=== PATIENT | male | born 1990 | race Caucasian/White ===

== ENCOUNTER → 2017-05-31 | Outpatient (CLI) | payer OTHER ==
[~2017-05-31] MED LIST: AMPH20TA2 PO; INSDGI SC; KPH250 PO; NVLGI/PEN SC
[2017-05-31 16:46] LABS: ALT/SGPT 22 U/L (12-78); AST/SGOT 20 U/L (15-37); BLOOD UREA NITROGEN 13 mg/dl (7-18); BUN/CREATININE RATIO 14.2 (10-20); CALCIUM 9.1 mg/dl (8.5-10.1); CARBON DIOXIDE 29 mmol/L (21-32); CHLORIDE 103 mmol/L (98-107); CHOLESTEROL 185 mg/dl (0-200); CREATININE 0.95 mg/dl (0.60-1.40); GLUCOSE 187 mg/dl (70-99); SODIUM 138 mmol/L (136-145)
[2017-05-31 16:49] LABS: ALB/GLOB RATIO 1.1 (0.9-2); ALKALINE PHOSPHATASE 135 U/L (45-117); CHOLESTEROL/HDL RATIO 3.7; HDL CHOLESTEROL 50 mg/dl; LDL CHOLESTEROL CALCULATED 103 mg/dl; TRIGLYCERIDES 158 mg/dl (0-150); VERY LOW DENSITY LIPOPROT CALC 32 mg/dl
== END | disposition home or self-care (01) ==
LOC: C.LABBFT 14:34
PROVIDERS: ATTEND Nurse Practitioner
DX: E10.9 Type 1 diabetes mellitus without complications (principal)

== ENCOUNTER 2017-07-28 12:23 | Emergency (ER) | payer OTHER ==
[~2017-07-28] VITALS: Ht 182.9 cm; Wt 64.1 kg
[2017-07-28 12:27] VITALS: TEMP 36.8; Ht 182.9 cm; Wt 64.1 kg
[2017-07-28] MEDS ORDERED: ACETAMINOPHEN 500 MG TAB PO STA (13:02)
[2017-07-28] MEDS ORDERED: KETOROLAC TROMETHAMINE 30 MG/ML VIAL IV STA (13:02)
[2017-07-28] MEDS ORDERED: ONDANSETRON INJ 2 MG/ML 2 ML VIAL IV STA (13:02)
--- NOTE | 2017-07-28 13:12 | EMERGENCY ROOM VISIT NOTE ---
History Report prepared by Luh: Larry Henao Under the Supervision of: Dr. Sajan Farmer M.D. First contact with patient: 12:33 Chief Complaint: TESTICULAR PAIN Stated Complaint: TESTICULAR PAIN History of Present Illness The patient is a 27 year old white male with a past medical history of DM who presents to the ED with a cc of intermittent testicular pain beginning a few days ago. Patient had his left testicle removed a month ago because it had a tumor on it. He notes he has not tried contacting his surgeon or diffuser operator. Patient reports there is still a tumor in his abdomen that is being worked up. Positive current smoker. Negative fever, chills, drainage at incision site, trouble urinating, trouble defecating, changes in medication, nausea, vomiting. Source of History: patient Onset: a few days ago Position: other (testicles) Timing: intermittent Associated Symptoms: No fevers, No chills, No nausea, No vomiting Note: Denies: drainage at incision site, trouble urinating, trouble defecating, changes in medication Review of Systems See HPI for pertinent positives and negatives. A total of ten systems were reviewed and were otherwise negative. Past Medical & Surgical Medical Problems: (1) Diabetes (2) Intractable nausea and vomiting (3) Toe fracture Family History Diabetes mellitus Heart disease Hypertension Kidney disease Kidney stones Social History Smoking Status: Current Every Day Smoker Drug Use: none Marital Status: single Occupation Status: unemployed Current/Historical Medications Scheduled Amphetamine-Dextroamphetamine 20MG (Adderall 20MG), 20 MG PO DAILY Insulin Glargine (Basaglar Kwikpen), 21 UNITS SQ HS Insulin Lispro (Human) (Humalog), SQ UD Risperidone (Risperdal), 0.25 MG PO UD Scheduled PRN Acetaminophen (Tylenol), 500 MG PO UD PRN for Pain Hydroxyzine HCl (Hydroxyzine HCl), 1 TAB PO UD PRN for Anxiety Ibuprofen (Ibu-200), 4 TABS PO QID PRN for Pain Oxycodone Immediate Rel Tab (Roxicodone Ir), 5 MG PO Q6H PRN for Pain Allergies Coded Allergies: No Known Allergies (Verified , 08/26/16) Physical Exam Vital Signs Date Time Temp Pulse Resp B/P (MAP) Pulse Ox O2 Delivery O2 Flow Rate FiO2 07/28/17 14:52 77 16 115/76 98 07/28/17 14:17 72 16 115/76 99 Room Air 07/28/17 12:27 36.8 65 16 127/80 99 Room Air Physical Exam GENERAL: Awake, alert, well-appearing, NAD HENT: Normocephalic, atraumatic. Missing right maxillary central incisor EYES: Normal conjunctiva. Sclera non-icteric. NECK: Supple. No nuchal rigidity. FROM. RESPIRATORY: CTAB, no rhonchi, wheezing, crackles CARDIAC: RRR, no MRG ABDOMEN: Soft, NTND, BS+. Well healing incisional scar in the LLQ with no TTP, fluctuantes, or erythema. No crepitus or swelling of the peritoneal. : No scrotal swelling, absent left testicle, mild tenderness of the left scrotum, circumcised, no penile pain. MSK: No chest wall TTP, no LE edema NEURO: GCS 15, CN 2-12 intact, moves all 4s on command SKIN: No rash or jaundice noted. Medical Decision & Procedures ER Provider Diagnostic Interpretation: Radiology results as stated below per my review and radiologist interpretation: TESTICULAR ULTRASOUND HISTORY: prior L orchiectomy, testicular pain, appears well healed, COMPARISON: None. FINDINGS: Right testis: 4.5 x 3.0 x 2.5 cm. There are no intratesticular masses. Normal color flow. No hydrocele. The epididymis is unremarkable. Left testis: Surgically absent. IMPRESSION: 1. Normal right testis. 2. Prior left orchiectomy. Electronically signed by: Zackary Delatorre M.D. 07/28/2017 2:11 PM Dictated Date/Time: 07/28/2017 2:09 PM Laboratory Results 07/28/17 13:14 Red Blood Count 5.08, Mean Corpuscular Volume 87.6, Mean Corpuscular Hemoglobin 30.1, Mean Corpuscular Hemoglobin Concent 34.4, Mean Platelet Volume 9.5, Neutrophils (%) (Auto) 65.4, Lymphocytes (%) (Auto) 22.5, Monocytes (%) (Auto) 6.4, Eosinophils (%) (Auto) 5.0, Basophils (%) (Auto) 0.5, Neutrophils # (Auto) 5.65, Lymphocytes # (Auto) 1.94, Monocytes # (Auto) 0.55, Eosinophils # (Auto) 0.43, Basophils # (Auto) 0.04 07/28/17 13:14 Test 07/28/17 13:14 07/28/17 13:18 White Blood Count 8.63 K/uL (4.8-10.8) Red Blood Count 5.08 M/uL (4.7-6.1) Hemoglobin 15.3 g/dL (14.0-18.0) Hematocrit 44.5 % (42-52) Mean Corpuscular Volume 87.6 fL (80-100) Mean Corpuscular Hemoglobin 30.1 pg (25-34) Mean Corpuscular Hemoglobin Concent 34.4 g/dl (32-36) Platelet Count 346 K/uL (130-400) Mean Platelet Volume 9.5 fL (7.4-10.4) Neutrophils (%) (Auto) 65.4 % Lymphocytes (%) (Auto) 22.5 % Monocytes (%) (Auto) 6.4 % Eosinophils (%) (Auto) 5.0 % Basophils (%) (Auto) 0.5 % Neutrophils # (Auto) 5.65 K/uL (1.4-6.5) Lymphocytes # (Auto) 1.94 K/uL (1.2-3.4) Monocytes # (Auto) 0.55 K/uL (0.11-0.59) Eosinophils # (Auto) 0.43 K/uL (0-0.5) Basophils # (Auto) 0.04 K/uL (0-0.2) RDW Standard Deviation 40.0 fL (36.4-46.3) RDW Coefficient of Variation 12.4 % (11.5-14.5) Immature Granulocyte % (Auto) 0.2 % Immature Granulocyte # (Auto) 0.02 K/uL (0.00-0.02) Anion Gap 8.0 mmol/L (3-11) Est Creatinine Clear Calc Drug Dose 108.9 ml/min Estimated GFR () 130.1 Estimated GFR (Non- 112.2 BUN/Creatinine Ratio 12.8 (10-20) Calcium Level 8.9 mg/dl (8.5-10.1) Total Bilirubin 0.3 mg/dl (0.2-1) Direct Bilirubin < 0.1 mg/dl (0-0.2) Aspartate Amino Transf (AST/SGOT) 14 U/L (15-37) Alanine Aminotransferase (ALT/SGPT) 19 U/L (12-78) Alkaline Phosphatase 163 U/L (45-117) Total Protein 7.9 gm/dl (6.4-8.2) Albumin 3.5 gm/dl (3.4-5.0) Lipase 75 U/L (73-393) Beta-Hydroxybutyric Acid 1.40 mg/dL (0.2-2.81) Urine Color YELLOW Urine Appearance CLEAR (CLEAR) Urine pH 7.0 (4.5-7.5) Urine Specific Humble 1.033 (1.000-1.030) Urine Protein NEG (NEG) Urine Glucose (UA) 3+ (NEG) Urine Ketones NEG (NEG) Urine Occult Blood NEG (NEG) Urine Nitrite NEG (NEG) Urine Bilirubin NEG (NEG) Urine Urobilinogen NEG (NEG) Urine Leukocyte Esterase NEG (NEG) Laboratory results reviewed by me Medications Administered Medications (Trade) Dose Ordered Sig/Maddie Route Start Time Stop Time Status Last Admin Dose Admin Ondansetron HCl (Zofran Inj) 4 mg NOW STAT IV 07/28/17 13:02 07/28/17 13:04 DC 07/28/17 13:20 4 MG Ketorolac Tromethamine (Toradol Inj) 30 mg NOW STAT IV 07/28/17 13:02 07/28/17 13:04 DC 07/28/17 13:20 30 MG ED Course 1253: The patient was evaluated in room B04B. A complete history and physical exam was performed. 1447: I reevaluated the patient. Discussed results and discharge instructions: he verbalized understanding and agreement. Case management spoke with the patient about following up with oncology. The patient is ready for discharge. Medical Decision The patient is a 27 year old white male with a past medical history of DM who presents to the ED with a cc of intermittent testicular pain beginning a few days ago. Etiologies such as torsion, mass, infection, hernia, hydrocele, epididymitis, trauma, intra-abdominal process, phantom pain, post operative pain , as well as others were entertained. Patient was seen and evaluated the bedside. Patient is a 27-year-old with a known history of diabetes. Patient had an orchiectomy last month with [facility] [address] urology. Patient purportedly does have an abdominal tumor. He is to see oncology after obtaining a PET scan. Patient states that his procedure was completed approximately 1 month prior and that he's had a little bit of pain in his scrotum. Patient states she's been taking his medications as prescribed. Patient does smoke and patient was counseled on smoking cessation. He was also told he would be of benefit to continue checking sugars and follow-up. Patient did have blood work that was completed along with urinalysis and testicular ultrasound. On exam of the patient patient did have some mild swelling within the scrotum and did show a surgically absent left testes. Patient had no crepitus or pain or erythema to the perineum. Do not believe this to be Collette's. Patient's blood work was fairly unremarkable with the exception of hyperglycemia in the 400s. Patient did have some pseudohyponatremia. Patient' s anion gap was normal and did not show ketones in the urine. I do not believe he is in diabetic ketoacidosis. Patient was feeling improved and able to tolerate by mouth. Patient's pain is also improved. I did discuss that he should follow-up with his urologist as needed. Counseled on smoking cessation. I do not believe that he has an acute surgical or medical need to stay in the hospital and believe he suitable for outpatient follow-up and treatment. Patient had discussed wanting to be seen by oncology here. I did have the shoe caser discuss with him possible follow-up options and they will call tomorrow and helping to arrange follow-up. Patient was agreeable to the plan of care. Patient was given strict follow-up, discharge, and return precautions. All questions were answered. Patient was deemed suitable for outpatient follow-up at this time. Patient agreed with the plan of care and was safely discharged home. Impression Primary Impression: Testicular/scrotal pain Additional Impression: Encounter for smoking cessation counseling Scribe Attestation The scribe's documentation has been prepared under my direction and personally reviewed by me in its entirety. I confirm that the note above accurately reflects all work, treatment, procedures, and medical decision making performed by me. Departure Information Dispostion Home / Self-Care Prescriptions Oxycodone Immediate Rel Tab (ROXICODONE IR) 5 Mg Tab 5 MG PO Q6H Y for Pain, #12 TAB Prov: Sajan Farmer M.D. 07/28/17 Referrals Kade Kelsey M.D. (PCP) Jayant Franks MD Forms HOME CARE DOCUMENTATION FORM, IMPORTANT VISIT INFORMATION, WORK / SCHOOL INSTRUCTIONS Patient Instructions ED Testicular Pain GEO, [facility] Additional Instructions Please return to the emergency department if you have worsening or recurrent symptoms not amenable to at-home treatment. Please call for a follow-up appointment with her primary care physician. Please take your medications as prescribed. If you have other concerns and/or complaints please feel free to also call your primary care physician's office or return the ED for further evaluation, management, and treatment. You may take 600 mg Ibuprofen every 6 hours as needed for pain with food for no more than 2 consecutive days. You may take tylenol 1000 mg every 6 hours as needed for pain. You may take motrin and tylenol separately or at the same time. Take your medications as prescribed. You have been examined and treated today on an emergency basis only. This is not a substitute for, or an effort to provide, complete comprehensive medical care. It is impossible to recognize and treat all injuries or illnesses in a single emergency department visit. It is therefore important that you follow up closely with [facility], your PCP, and/or your specialist(s). Call as soon as possible for an appointment. Thank you for your time and consideration. I look forward to speaking with you again soon. Please don't hesitate to call us if you have any questions. Problem Qualifiers
[2017-07-28 13:29] LABS: BASO % 0.5 %; BASO ABS # 0.04 K/uL (0-0.2); COMPLETE YES; HEMATOCRIT 44.5 % (42-52); IG% 0.2 %; LYMPH % 22.5 %; LYMPH ABS # 1.94 K/uL (1.2-3.4); MEAN CELL VOLUME 87.6 fL (80-100); MEAN CORPUSCULAR HEMOGLOBIN 30.1 pg (25-34); MEAN CORPUSCULAR HGB CONC 34.4 g/dl (32-36); MEAN PLATELET VOLUME 9.5 fL (7.4-10.4); MONO % 6.4 %; NEUT % 65.4 %; PLATELET COUNT 346 K/uL (130-400); RED BLOOD COUNT 5.08 M/uL (4.7-6.1); WHITE BLOOD COUNT 8.63 K/uL (4.8-10.8)
[2017-07-28 13:38] LABS: URINE APPEARANCE CLEAR (CLEAR); URINE BILIRUBIN NEG (NEG); URINE COLOR YELLOW; URINE NITRITE NEG (NEG); URINE SPECIFIC GRAVITY 1.033 (1.000-1.030); UROBILINOGEN NEG (NEG); ZZUR CULT IF INDIC CLEAN CATCH NO
[2017-07-28 13:40] LABS: MANUAL MICROSCOPIC REQUIRED? NO; REVIEW REQ? NO
[2017-07-28 13:58] LABS: ALKALINE PHOSPHATASE 163 U/L (45-117); ALT/SGPT 19 U/L (12-78); AST/SGOT 14 U/L (15-37); BLOOD UREA NITROGEN 12 mg/dl (7-18); BUN/CREATININE RATIO 12.8 (10-20); CALCIUM 8.9 mg/dl (8.5-10.1); CARBON DIOXIDE 26 mmol/L (21-32); CHLORIDE 96 mmol/L (98-107); CREATININE 0.94 mg/dl (0.60-1.40); GLUCOSE 442 mg/dl (70-99); POTASSIUM 4.5 mmol/L (3.5-5.1); SODIUM 130 mmol/L (136-145)
--- NOTE | 2017-07-28 14:12 | DIAGNOSTIC IMAGING REPORT ---
TESTICULAR ULTRASOUND HISTORY: prior L orchiectomy, testicular pain, appears well healed, COMPARISON: None. FINDINGS: Right testis: 4.5 x 3.0 x 2.5 cm. There are no intratesticular masses. Normal color flow. No hydrocele. The epididymis is unremarkable. Left testis: Surgically absent. IMPRESSION: 1. Normal right testis. 2. Prior left orchiectomy. Electronically signed by: Zackary Delatorre M.D. 07/28/2017 2:11 PM Dictated Date/Time: 07/28/2017 2:09 PM
[2017-07-28] MEDS ORDERED: ATR25 PO (14:29)
[2017-07-28] MEDS ORDERED: ACET-1256 PO (14:29)
[2017-07-28] MEDS ORDERED: RISP0.257 PO (14:29)
[2017-07-28] MEDS ORDERED: IBUP200T80 PO (14:29)
[2017-07-28] MEDS ORDERED: INSU100I SQ (14:29)
[2017-07-28] MEDS ORDERED: INSU100I23 SQ (14:29)
[2017-07-28] MEDS ORDERED: OXYC1TAB3 PO (14:40)
[2017-07-28 14:52] VITALS: BP 115/76; PULSE 77; O2SAT 98
== END 2017-07-28 15:13 | disposition home or self-care (01) ==
LOC: C.EDB 12:24
DX: N50.811 Right testicular pain (principal); Z71.6 Tobacco abuse counseling; E11.9 Type 2 diabetes mellitus without complications; Z90.79 Acquired absence of other genital organ(s); F17.200 Nicotine dependence, unspecified, uncomplicated; Z79.4 Long term (current) use of insulin; Z83.3 Family history of diabetes mellitus; Z82.49 Family history of ischemic heart disease and other diseases of the circulatory system; Z84.1 Family history of disorders of kidney and ureter

== ENCOUNTER → 2017-08-15 | Outpatient (CLI) | payer OTHER ==
[~2017-08-15] MED LIST changes: +ACET-1256 PO; +ATR25 PO; +IBUP200T80 PO; -INSDGI SC; +INSU100I SQ; +INSU100I23 SQ; -KPH250 PO; -NVLGI/PEN SC; +OPTIRAY 320 IV PRN; +OXYC1TAB3 PO; +RISP0.257 PO
--- NOTE | 2017-08-15 13:53 | DIAGNOSTIC IMAGING REPORT ---
(CHEST) THORAX WITH CT DOSE: 524.88 mGycm HISTORY: Testicular carcinoma TESTICULAR CA TECHNIQUE: Multiaxial CT images of the chest were performed following the intravenous administration of contrast. A dose lowering technique was utilized adhering to the principles of ALARA. COMPARISON: None FINDINGS: Filling defects. Cava felt to be flow artifact. The mediastinal and hilar regions are considered negative for significant adenopathy. Lungs are considered clear. There is no significant nodular pathology. Limited evaluation the upper abdomen demonstrates a large retroperitoneal mass measuring 10 x 9 cm. This appears to encompass components of the abdominal aorta as well as superior abdominal arterial vasculature. There is a mild secondary left hydronephrosis. Mild ossification homogeneity of the liver. There is a potential nodular process measuring 2.8 x 3.0 cm posterior aspect of the uterine fundus versus retained gastric content. IMPRESSION: 1. No significant abnormality of the chest. 2. Lungs are considered clear. 3. Large upper abdominal/retroperitoneal mass with potential additional mass posterior aspect gastric fundus. 4. Attention is directed to the report for the CT of the abdomen and pelvis. The above report was generated using voice recognition software. It may contain grammatical, syntax or spelling errors. Electronically signed by: Onofre Alarcon M.D. 08/15/2017 1:51 PM Dictated Date/Time: 08/15/2017 1:41 PM
--- NOTE | 2017-08-15 13:57 | DIAGNOSTIC IMAGING REPORT ---
CT SCAN OF THE ABDOMEN AND PELVIS WITH IV CONTRAST CLINICAL HISTORY: Testicular cancer. COMPARISON STUDY: No priors. TECHNIQUE: Following the IV administration of 91 cc of Optiray 320, CT scan of the abdomen and pelvis is performed from the lung bases to the proximal femora. Images are reviewed in the axial, sagittal, and coronal planes. IV contrast was administered without complication. A dose lowering technique was utilized adhering to the principles of ALARA. FINDINGS: Lung bases: The heart is normal in size and without pericardial effusion. The lung bases are clear. Liver: The contrast-enhanced liver is normal in size, contour, and attenuation. There is no intrahepatic biliary ductal dilatation. The hepatic veins and portal veins are patent. Gallbladder: Unremarkable. Spleen: Normal in size and attenuation. Pancreas: Unremarkable. Adrenal glands: Unremarkable. Kidneys: The contrast enhanced kidneys are normal in size. There is mild to moderate left-sided hydronephrosis, likely related to ureteral stent obstruction secondary to a left retroperitoneal mass. No hydronephrosis is seen on the right. The kidneys enhance symmetrically. Abdominal vasculature: The abdominal aorta is normal in course and caliber. Bowel: The small bowel and colon are normal in course and caliber. The appendix is not identified. Peritoneum: There is no intraperitoneal free air or abdominal ascites. Lymphadenopathy: There is bulky confluent left retroperitoneal lymphadenopathy, which extends from the level of the left renal pelvis to the left iliac chain. This measures approximately 17 x 10 x 11 cm in aggregate dimension. Low attenuation within this adenopathy suggests a component of fat. This mass lesion encases left ureter, and also encases the abdominal aorta by approximately 270 degrees. This invades into the left psoas musculature. Pelvic viscera: The bladder, prostate, and seminal vesicles are normal as visualized. There is evidence of left-sided orchiectomy. Skeletal structures: No lytic or blastic lesions are seen. Posttraumatic deformity and postoperative change is identified in the left proximal femur. 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 Soft tissues: The patient appears cachectic. IMPRESSION: 1. There is a large bulky left retroperitoneal devin aggregate as detailed above measuring up to 17 cm. This is consistent with metastatic disease. 2. The retroperitoneal lymphadenopathy encases the left ureter and causes mild to moderate left-sided hydronephrosis. 3. The retroperitoneal lesion invades the left psoas musculature and encases the abdominal aorta by as much as 270 degrees. 4. No additional metastatic lesions are identified in the other pelvis. 5. Posttraumatic and postoperative change is identified in the left hip. There is avascular necrosis of the left femoral head. Electronically signed by: Thuan Wall M.D. 08/15/2017 1:56 PM Dictated Date/Time: 08/15/2017 1:46 PM
== END | disposition home or self-care (01) ==
LOC: C.CTS 12:45
PROVIDERS: ATTEND Internal Medicine Hematology & Oncology
DX: C62.90 Malignant neoplasm of unspecified testis, unspecified whether descended or undescended (principal)

== ENCOUNTER 2017-08-28 08:11 | Day surgery (SDC) | payer OTHER ==
[2017-08-27 10:49] VITALS: BMI 19.0
[~2017-08-28] VITALS: Ht 182.9 cm; Wt 65.9 kg
[~2017-08-28 08:11] MED LIST changes: -ACET-1256 PO; -AMPH20TA2 PO; -ATR25 PO; +ATROPINE SULFATE 0.1 MG/ML 5ML SYR IV PRN; +EpHEDrine SULFATE INJ 50 MG/ML AMP IV PRN; +FENTANYL CITRATE INJ 50 MCG/1 ML 2 ML VIAL IV PRN; +HYDROmorphone INJ 1 MG/ML SYR IV PRN; -IBUP200T80 PO; -INSU100I SQ; -INSU100I23 SQ; +LACTATED RINGER'S 1000ML 1,000 ML IV SCH; +ONDANSETRON INJ 2 MG/ML 2 ML VIAL IV PRN; -OPTIRAY 320 IV PRN; -OXYC1TAB3 PO; +PROMETHAZINE HCL INJ 12.5 MG in SODIUM CHLORIDE 0.9% 50ML 50 ML IV PRN; -RISP0.257 PO
[2017-08-28 08:39] VITALS: BP 124/77; PULSE 71; TEMP 36.5; O2SAT 98; Ht 182.9 cm; Wt 65.9 kg
[2017-08-28] MEDS ORDERED: NovoLIN-R INSULIN PER UNIT CHARGE ONE (08:41)
[2017-08-28] MEDS ORDERED: NURSING VERBAL MED ORDER ONE (08:45)
[2017-08-28] MEDS ORDERED: MIDAZOLAM HCL 1 MG/ML 2ML VIAL ONE ×2 (10:46→10:47)
[2017-08-28] MEDS ORDERED: FENTANYL CITRATE INJ 50 MCG/1 ML 2 ML VIAL ONE ×2 (10:47→11:34)
[2017-08-28] MEDS ORDERED: PROPOFOL IV EMULSION 10 MG/ML 20 ML VIAL IV ONE (10:47)
[2017-08-28] MEDS ORDERED: LIDOCAINE HCL 2% 2 ML VIAL (20MG/ML) ONE (10:47)
[2017-08-28] MEDS ORDERED: ONDANSETRON INJ 2 MG/ML 2 ML VIAL ONE (10:47)
[2017-08-28] MEDS ORDERED: LIDOCAINE/EPINEPHRINE 1% 20 ML VIAL ONE (11:09)
[2017-08-28] MEDS ORDERED: HEPARIN SOD (PORCINE) 5000 UNIT/ML 1 ML VIAL ONE (11:10)
[2017-08-28] MEDS ORDERED: BUPIVACAINE 0.5 % 5 MG/1 ML MPF 30ML VIAL ONE (11:10)
--- NOTE | 2017-08-28 11:12 | History & Physical Bridge Note ---
H&P Re-Evaluation Bridge Note: I have examined the patient, reviewed the History & Physical and in the interval since the performance of the History & Physical I have noted the following changes of clinical significance: No changes noted
--- NOTE | 2017-08-28 12:08 | [facility] Post Operative Brief Note ---
Immediate Operative Summary Operative Date Aug 28, 2017. Pre-Operative Diagnosis Testicular Cancer Post-Operative Diagnosis Testicular Cancer Procedure(s) Performed Insertion of Mediport with Fluoroscopy Surgeon Dr Narayanan Instructor Business Education Surgeon(s) Quita Cruz PA-C Estimated Blood Loss 4ml Findings Left internal jugular vein accessed using real-time ultrasound. Catheter tunneled to the chest incision, catheter placed in the left internal jugular vein and terminated just proximal to the caval atrial junction, final placement confirmed by fluoroscopy. Draws and flushes easily. Specimens None per surgeon Drains none Anesthesia MAC/local Complication(s) None Disposition Recovery Room / PACU
--- NOTE | 2017-08-28 12:17 | [facility] Operative Report ---
Operative Report Operative Date Aug 28, 2017. Pre-Operative Diagnosis Testicular Cancer Post-Operative Diagnosis testicular cancer Procedure(s) Performed Left internal jugular vein port insertion Surgeon Dr Narayanan Assembly Machine Feeder Surgeon(s) Quita Cruz PA-C Estimated Blood Loss 4ml Findings Left internal jugular vein accessed using real-time ultrasound. Catheter tunneled to the chest incision, catheter placed in the left internal jugular vein and terminated just proximal to the caval atrial junction, final placement confirmed by fluoroscopy. Draws and flushes easily. Specimens None per surgeon Drains none Anesthesia MAC/local Complication(s) None Disposition Recovery Room / PACU Indications 27-year-old right-hand dominant male with testicular cancer requiring mcc IV access for chemotherapy. Plan for port insertion. The risks of the procedure were discussed, all questions were answered, and the patient agreed to proceed with surgery as planned. Description of Procedure The patient was properly identified, consented, and taken to the operating room where he was placed in the supine position with both arms tucked and a shoulder roll placed vertically. Monitored anesthesia care was induced. SCDs and a safety belt were placed. Preoperative antibiotics were administered. The patient's chest and neck was prepped and draped in the standard sterile fashion. Surgical timeout was performed and all parties were in agreement that this was the correct patient and procedure to be performed and we continued as planned. The patient was placed in Trendelenburg position. Local anesthetic was injected along the skin incision. Using real-time ultrasound guidance the left internal jugular vein was accessed using the access needle. The wire was placed and the needle was removed. Fluoroscopy confirmed placement into the internal jugular vein extending into the superior vena cava. A transverse skin incision was made in the chest and a pocket was created for the port. The subcutaneous tunneling device was then used to pass the catheter through the chest incision and into the neck incision. The dilator and peel-away sheath were inserted over the wire. The catheter was then inserted through the peel- away sheath and fluoroscopy confirmed placement into the superior vena cava. The catheter was cut to 23 cm and attached to the port. The port was secured into place with 3-0 Prolene sutures. A final x-ray revealed good placement of the port. The wound was irrigated and hemostasis was confirmed. The skin was closed with interrupted 3-0 Vicryl deep dermal sutures, followed by 4-0 Monocryl running subcuticular suture. Dermabond was placed over the wounds. The port was accessed and ashu blood easily and flushed easily. It was flushed with heparinized saline. The physician's assistant coach was critical for prepping and draping, access, retraction and exposure, and closure. The patient taken to the PACU where she recovered without apparent incident. All sponge, instrument and needle counts were correct at the conclusion of the procedure. The patient tolerated the procedure well. A postoperative chest x- ray was pending in the PACU. I attest to the content of the Intraoperative Record and any orders documented therein. Any exceptions are noted below.
--- NOTE | 2017-08-28 12:22 | Discharge Instructions ---
Discharge Instructions Date of Service Aug 28, 2017. Visit Reason for Visit: Testicular Cancer, Type 1 Diabetes Discharge Discharge Diagnosis / Problem: A-port placement Discharge Goals Goal(s): Improve disease control Activity Recommendations Activity Limitations: as noted below Shower/Bathe: no limitations (ok to shower) Anesthesia . Post Anesthesia Instructions: If you have had General Anesthesia or IV Sedation: * Do not drive today. * Resume driving when surgeon permits. * Do not make important decisions or sign legal documents today. * Call surgeon for: 1. Temperature elevations greater than 101 degrees F. 2. Uncontrollable pain. 3. Excessive bleeding. 4. Persistent nausea and vomiting. 5. Medication intolerance (nausea, vomiting or rash). * For nausea and vomiting use only clear liquids such as: tea, soda, bouillon until nausea subsides, then gradually increase diet as tolerated. * If you have any concerns or questions, call your surgeon's office. If physician is unavailable and it is an emergency, call 911 or go to the nearest emergency room. . Instructions / Follow-Up Instructions / Follow-Up Dr. Narayanan in 1-2 weeks, call [phone] for any questions Diet Recommendations Recommended Home Diet: no limitations Procedures Procedures Performed: Insertion of Mediport with Fluoroscopy Pending Studies Studies pending at discharge: no Medical Emergencies . Who to Call and When: Medical Emergencies: If at any time you feel your situation is an emergency, please call 911 immediately. . Non-Emergent Contact Non-Emergency issues call your: Surgeon Call Non-Emergent contact if: you have a fever, temperature is above 101.5, your pain is not controlled, wound has increased redness . . "Provider Documentation" section prepared by Louis Cruz. .
[2017-08-28] MEDS ORDERED: ONDANSETRON INJ 2 MG/ML 2 ML VIAL IV PRN (12:30)
[2017-08-28] MEDS ORDERED: MoRPHine SULFATE 2 MG/ML CARP IV PRN (12:30)
[2017-08-28] MEDS ORDERED: HYDROCODONE/ACETAMIN 5/325MG TAB PO PRN (12:30)
[2017-08-28] MEDS ORDERED: LACTATED RINGER'S 1000ML 1,000 ML IV SCH (12:30)
--- NOTE | 2017-08-28 12:35 | Anesthesiology Progress Note ---
Anesthesia Post Op Note Date & Time Aug 28, 2017 at 12:35 Vital Signs Pain Intensity: 0 Vital Signs Past 12 Hours Date Time Temp Pulse Resp B/P (MAP) Pulse Ox O2 Delivery O2 Flow Rate FiO2 08/28/17 12:25 78 16 104/72 98 Room Air 08/28/17 12:16 36 75 16 112/68 100 Oxymask 7 08/28/17 08:39 36.5 71 18 124/77 (93) 98 Room Air Notes Mental Status: alert / awake / arousable, participated in evaluation Pt Amnestic to Procedure: Yes Nausea / Vomiting: adequately controlled Pain: adequately controlled Airway Patency, RR, SpO2: stable & adequate BP & HR: stable & adequate Hydration State: stable & adequate Anesthetic Complications: no major complications apparent
--- NOTE | 2017-08-28 12:38 | [facility] Operative Report ---
Operative Report Operative Date Aug 28, 2017. Pre-Operative Diagnosis Testicular Cancer Surgeon Dr Narayanan Findings Real-time ultrasound guidance was used to access the left internal jugular vein. Fluoroscopy was used to position the catheter at the cavoatrial junction. A total of 7.7 seconds of fluoroscopy time was performed. I attest to the content of the Intraoperative Record and any orders documented therein. Any exceptions are noted below.
--- NOTE | 2017-08-28 12:42 | DIAGNOSTIC IMAGING REPORT ---
CHEST ONE VIEW PORTABLE CLINICAL HISTORY: 27 years-old Male presenting with port placement. TECHNIQUE: Portable upright AP view of the chest was obtained. COMPARISON: 08/28/[address] from 08/15/2017. FINDINGS: Left internal jugular Mediport terminates in the lower SVC. Cardiomediastinal silhouette normal. Lungs and pleural spaces clear. Osseous structures normal. Upper abdomen normal. IMPRESSION: 1. Interval left internal jugular Mediport placement. No pneumothorax. Electronically signed by: Willie Castrejon M.D. 08/28/2017 12:40 PM Dictated Date/Time: 08/28/2017 12:39 PM
[2017-08-28 12:50] VITALS: BP 111/68; PULSE 83; TEMP 36.4; O2SAT 100
[2017-08-28 13:20] VITALS: BP 113/69; PULSE 77; TEMP 36.4; O2SAT 100
[2017-08-28 13:50] VITALS: BP 116/56; PULSE 88; TEMP 36.5; O2SAT 100
[2017-09-08] MEDS ORDERED: IBUP-1428 PO (10:48)
[2017-09-08] MEDS ORDERED: ONDA4TAB46 PO (10:49)
[2017-09-08] MEDS ORDERED: MULT-506 PO (10:49)
[2017-09-08] MEDS ORDERED: AMPH20TA2 PO (13:55)
[2017-09-08] MEDS ORDERED: ATR25 PO (14:29)
[2017-09-08] MEDS ORDERED: INSU100I23 SQ (14:29)
[2017-09-08] MEDS ORDERED: INSU100I SQ (14:29)
[2017-09-23] MEDS ORDERED: OXYC-164 PO (10:20)
[2017-09-23] MEDS ORDERED: MCRK20 PO (10:20)
[2017-09-23] MEDS ORDERED: OXYC-292 PO (10:20)
[2017-09-23] MEDS ORDERED: NICO21DI4 TD (10:26)
[2017-10-05] MEDS ORDERED: PROC10TA PO (09:09)
[2017-10-06] MEDS ORDERED: POTA-639 PO (01:23)
[2018-01-24] MEDS ORDERED: LORA-741 PO (01:17)
[2018-01-24] MEDS ORDERED: RXC30 PO (01:17)
[2018-01-24] MEDS ORDERED: MORP30TA PO (01:17)
[2018-01-24] MEDS ORDERED: AMOX500T PO (01:18)
[2018-01-24] MEDS ORDERED: KLN/5 PO (01:18)
[2018-01-24] MEDS ORDERED: INSU1INJ33 SC (01:18)
[2018-01-24] MEDS ORDERED: AMPH15CA7 PO (01:20)
[2018-02-12] MEDS ORDERED: GABA-112 PO (14:25)
[2018-04-28] MEDS ORDERED: AMPH10TA2 PO (13:18)
[2018-04-28] MEDS ORDERED: MORP30TA PO (13:19)
== END 2017-08-28 13:50 | disposition home or self-care (01) ==
LOC: C.ACU 08:11
PROVIDERS: ATTEND Surgery
DX: C62.90 Malignant neoplasm of unspecified testis, unspecified whether descended or undescended (principal); E11.9 Type 2 diabetes mellitus without complications; Z98.818 Other dental procedure status; F17.200 Nicotine dependence, unspecified, uncomplicated; Z79.4 Long term (current) use of insulin; Z79.899 Other long term (current) drug therapy; Z82.49 Family history of ischemic heart disease and other diseases of the circulatory system

== ENCOUNTER 2017-09-08 21:29 | Emergency (ER) | payer OTHER ==
[~2017-09-08] VITALS: Ht 182.9 cm; Wt 61.4 kg
[~2017-09-08 21:29] MED LIST changes: +AMPH20TA2 PO; +ATR25 PO; -ATROPINE SULFATE 0.1 MG/ML 5ML SYR IV PRN; -EpHEDrine SULFATE INJ 50 MG/ML AMP IV PRN; -FENTANYL CITRATE INJ 50 MCG/1 ML 2 ML VIAL IV PRN; -HYDROmorphone INJ 1 MG/ML SYR IV PRN; +IBUP-1428 PO; +INSU100I SQ; +INSU100I23 SQ; -LACTATED RINGER'S 1000ML 1,000 ML IV SCH; +MULT-506 PO; +ONDA4TAB46 PO; -ONDANSETRON INJ 2 MG/ML 2 ML VIAL IV PRN; -PROMETHAZINE HCL INJ 12.5 MG in SODIUM CHLORIDE 0.9% 50ML 50 ML IV PRN
[2017-09-08 21:33] VITALS: TEMP 36.6; Ht 182.9 cm; Wt 61.4 kg
[2017-09-08] MEDS ORDERED: ONDANSETRON INJ 2 MG/ML 2 ML VIAL IV STA (21:53)
[2017-09-08] MEDS ORDERED: SODIUM CHLORIDE 0.9% 1000ML 1,000 ML IV STA (21:53)
[2017-09-08] MEDS ORDERED: KETOROLAC TROMETHAMINE 30 MG/ML VIAL IV STA (21:58)
[2017-09-08] MEDS ORDERED: SULF800T23 PO (22:12)
[2017-09-08 22:26] LABS: BASO % 0.3 %; BASO ABS # 0.02 K/uL (0-0.2); EOS % 1.5 %; EOS ABS # 0.11 K/uL (0-0.5); HEMOGLOBIN 14.4 g/dL (14.0-18.0); IG# 0.01 K/uL (0.00-0.02); LYMPH % 20.8 %; LYMPH ABS # 1.48 K/uL (1.2-3.4); MEAN CELL VOLUME 83.3 fL (80-100); MEAN PLATELET VOLUME 9.4 fL (7.4-10.4); MONO % 8.6 %; MONO ABS # 0.61 K/uL (0.11-0.59); NEUT % 68.7 %; NEUT ABS # 4.87 K/uL (1.4-6.5); PLATELET COUNT 291 K/uL (130-400); RED CELL DISTRIBUTION WIDTH CV 12.4 % (11.5-14.5); RED CELL DISTRIBUTION WIDTH SD 37.7 fL (36.4-46.3)
[2017-09-08 22:44] LABS: ALBUMIN 3.6 gm/dl (3.4-5.0); ALT/SGPT 19 U/L (12-78); BLOOD UREA NITROGEN 14 mg/dl (7-18); CALCIUM 8.9 mg/dl (8.5-10.1); CARBON DIOXIDE 26 mmol/L (21-32); CREATININE 0.81 mg/dl (0.60-1.40); GLUCOSE 324 mg/dl (70-99); LIPASE 178 U/L (73-393); POTASSIUM 3.8 mmol/L (3.5-5.1); SODIUM 132 mmol/L (136-145)
[2017-09-08 22:47] LABS: AST/SGOT 18 U/L (15-37)
[2017-09-08 22:54] LABS: ALKALINE PHOSPHATASE 121 U/L (45-117)
--- NOTE | 2017-09-08 22:58 | DIAGNOSTIC IMAGING REPORT ---
PA CHEST RADIOGRAPH AND UPRIGHT AND SUPINE AP RADIOGRAPHS OF THE ABDOMEN CLINICAL HISTORY: Abdominal pain. COMPARISON STUDY: CT of the chest abdomen and pelvis August 15, 2017 and chest radiograph August 28, 2017. FINDINGS: A left internal jugular [id number] is in place. There is no pneumothorax or pleural effusion. There is no consolidation to suggest pneumonia. Cardiomediastinal silhouette is normal. Pulmonary vascularity is normal. There is no free air. Mild gaseous distention of the colon is noted. There is also mild gaseous distention of the stomach. A few mildly dilated loops of small bowel are noted. 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 Post surgical findings within the proximal left femur are noted. IMPRESSION: 1. No free air. 2. Mild gaseous distention of small and large bowel. This may reflect an ileus. A distal colonic obstruction could appear similar although is considered less likely. 3. No acute cardiopulmonary findings. Electronically signed by: Guicho Olivera M.D. 09/08/2017 10:56 PM Dictated Date/Time: 09/08/2017 10:52 PM
--- NOTE | 2017-09-08 23:32 | EMERGENCY ROOM VISIT NOTE ---
History Report prepared by Luh: Petey Rand Under the Supervision of: Dr. Chance Goldstein D.O. First contact with patient: 21:40 Chief Complaint: ABDOMINAL PAIN Stated Complaint: ABDOMINAL PAIN, CRAMPING FROM TUMOR History of Present Illness The patient is a 27 year old male with a history of testicular cancer who presents to the Emergency Room with complaints of worsening abdominal pain over the past few days. The patient states that he has had the pain for a while on and off, but today the pain was constant and unbearable. Per the patient's significant other, the patient had one of his testicles removed, but the patient now has a tumor in his abdomen from the testicular cancer. The patient states that he has abdominal pain from the tumor, and he feels constipated but is able to have bowel movements. He says that he thinks that the pain is somewhat due to the constipation. He describes the pain as a "burning" pain, and was told by his doctor to come here if the pain was not getting any better. He adds that he is having some pain into the lower back as well. The patient had a port put in, and will be undergoing chemotherapy once the "port is healed up". The patient says that he is not on any blood thinners. Source of History: patient, spouse/significant other Onset: Over past few days Position: abdomen Symptom Intensity: unbearable Quality: other (had testicular cancer, burning pain) Timing: worsening Associated Symptoms: + back pain Note: Associated symptoms: Feels constipated. Review of Systems See HPI for pertinent positives & negatives. A total of 10 systems reviewed and were otherwise negative. Past Medical & Surgical Medical Problems: (1) Diabetes (2) Intractable nausea and vomiting (3) Toe fracture Family History Diabetes mellitus Heart disease Hypertension Kidney disease Kidney stones Social History Smoking Status: Current Every Day Smoker Drug Use: none Marital Status: single Occupation Status: unemployed Current/Historical Medications Scheduled Amphetamine-Dextroamphetamine 20MG (Adderall 20MG), 20 MG PO BID Insulin Glargine (Basaglar Kwikpen), 21 UNITS SQ HS Insulin Lispro (Human) (Humalog), SQ UD Multivitamin (Multivitamin), 1 TAB PO QPM Sulfa/Trimethoprim (Bactrim Ds 800MG/160MG), 1 TAB PO BID Scheduled PRN Hydroxyzine HCl (Hydroxyzine HCl), 1 TAB PO UD PRN for Anxiety Ibuprofen (Motrin), 800 MG PO PRN PRN for Pain Ondansetron Hcl (Zofran), 4 MG PO PRN PRN for Nausea Allergies Coded Allergies: No Known Allergies (Verified , 08/27/17) Physical Exam Vital Signs Date Time Temp Pulse Resp B/P (MAP) Pulse Ox O2 Delivery O2 Flow Rate FiO2 09/08/17 21:33 36.6 142 18 123/80 100 Room Air Physical Exam CONSTITUTIONAL/VITAL SIGNS: Reviewed / noted above. GENERAL: Non-toxic in appearance. INTEGUMENTARY: Warm, dry, and [place]. HEAD: Normocephalic. EYES: without scleral icterus or trauma. ENT/OROPHARYNX: clear and moist. LYMPHADENOPATHY/NECK: Is supple without lymphadenopathy or meningismus. RESPIRATORY: Lungs clear and equal. CARDIOVASCULAR: Regular rate and rhythm. GI/ABDOMEN: Soft and nontender. No organomegaly or pulsatile mass. No rebound or guarding. Normal bowel sounds. EXTREMITIES: Warm and well perfused. BACK: No CVA tenderness. NEUROLOGICAL: Intact without focal deficits. PSYCHIATRIC: normal affect. MUSCULOSKELETAL: Normally developed with good muscle tone. Medical Decision & Procedures ER Provider Diagnostic Interpretation: X ray results and stated below per my interpretation and radiology interpretation. PA CHEST RADIOGRAPH AND UPRIGHT AND SUPINE AP RADIOGRAPHS OF THE ABDOMEN CLINICAL HISTORY: Abdominal pain. COMPARISON STUDY: CT of the chest abdomen and pelvis August 15, 2017 and chest radiograph August 28, 2017. FINDINGS: A left internal jugular [id number] is in place. There is no pneumothorax or pleural effusion. There is no consolidation to suggest pneumonia. Cardiomediastinal silhouette is normal. Pulmonary vascularity is normal. There is no free air. Mild gaseous distention of the colon is noted. There is also mild gaseous distention of the stomach. A few mildly dilated loops of small bowel are noted. 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 Post surgical findings within the proximal left femur are noted. IMPRESSION: 1. No free air. 2. Mild gaseous distention of small and large bowel. This may reflect an ileus. A distal colonic obstruction could appear similar although is considered less likely. 3. No acute cardiopulmonary findings. Electronically signed by: Guicho Olivera M.D. 09/08/2017 10:56 PM Dictated Date/Time: 09/08/2017 10:52 PM Laboratory Results 1/7/18 22:15 Red Blood Count 4.80, Mean Corpuscular Volume 83.3, Mean Corpuscular Hemoglobin 30.0, Mean Corpuscular Hemoglobin Concent 36.0, Mean Platelet Volume 9.4, Neutrophils (%) (Auto) 68.7, Lymphocytes (%) (Auto) 20.8, Monocytes (%) (Auto) 8.6, Eosinophils (%) (Auto) 1.5, Basophils (%) (Auto) 0.3, Neutrophils # (Auto) 4.87, Lymphocytes # (Auto) 1.48, Monocytes # (Auto) 0.61, Eosinophils # (Auto) 0.11, Basophils # (Auto) 0.02 09/08/17 22:15 Test 09/08/17 22:15 White Blood Count 7.10 K/uL (4.8-10.8) Red Blood Count 4.80 M/uL (4.7-6.1) Hemoglobin 14.4 g/dL (14.0-18.0) Hematocrit 40.0 % (42-52) Mean Corpuscular Volume 83.3 fL (80-100) Mean Corpuscular Hemoglobin 30.0 pg (25-34) Mean Corpuscular Hemoglobin Concent 36.0 g/dl (32-36) Platelet Count 291 K/uL (130-400) Mean Platelet Volume 9.4 fL (7.4-10.4) Neutrophils (%) (Auto) 68.7 % Lymphocytes (%) (Auto) 20.8 % Monocytes (%) (Auto) 8.6 % Eosinophils (%) (Auto) 1.5 % Basophils (%) (Auto) 0.3 % Neutrophils # (Auto) 4.87 K/uL (1.4-6.5) Lymphocytes # (Auto) 1.48 K/uL (1.2-3.4) Monocytes # (Auto) 0.61 K/uL (0.11-0.59) Eosinophils # (Auto) 0.11 K/uL (0-0.5) Basophils # (Auto) 0.02 K/uL (0-0.2) RDW Standard Deviation 37.7 fL (36.4-46.3) RDW Coefficient of Variation 12.4 % (11.5-14.5) Immature Granulocyte % (Auto) 0.1 % Immature Granulocyte # (Auto) 0.01 K/uL (0.00-0.02) Anion Gap 8.0 mmol/L (3-11) Est Creatinine Clear Calc Drug Dose 121.1 ml/min Estimated GFR () 143.2 Estimated GFR (Non- 123.5 BUN/Creatinine Ratio 17.4 (10-20) Calcium Level 8.9 mg/dl (8.5-10.1) Total Bilirubin 0.3 mg/dl (0.2-1) Direct Bilirubin < 0.1 mg/dl (0-0.2) Aspartate Amino Transf (AST/SGOT) 18 U/L (15-37) Alanine Aminotransferase (ALT/SGPT) 19 U/L (12-78) Alkaline Phosphatase 121 U/L (45-117) Total Protein 8.0 gm/dl (6.4-8.2) Albumin 3.6 gm/dl (3.4-5.0) Lipase 178 U/L (73-393) Beta-Hydroxybutyric Acid 3.70 mg/dL (0.2-2.81) Laboratory results as stated above per my review. Medications Administered Medications (Trade) Dose Ordered Sig/Maddie Route Start Time Stop Time Status Last Admin Dose Admin Sodium Chloride 1,000 ml @ 999 mls/hr Q1H1M STAT IV 09/08/17 21:53 09/08/17 22:53 DC 09/08/17 22:23 999 MLS/HR Ondansetron HCl (Zofran Inj) 4 mg NOW STAT IV 09/08/17 21:53 09/08/17 21:55 DC 09/08/17 22:23 4 MG Ketorolac Tromethamine (Toradol Inj) 30 mg NOW STAT IV 09/08/17 21:58 09/08/17 21:59 DC 09/08/17 22:23 30 MG ED Course 2146: Previous medical records were reviewed. The patient was evaluated in room B5. A complete history and physical examination was performed. 2152: Ordered Zofran Inj 4 mg IV, NSS 1000 ml @ 999 mls/hr IV. 2157: Ordered Toradol Inj 30 mg IV. 3: On reevaluation, the patient is resting more comfortably. I discussed the results and findings with the patient. He verbalized agreement of the treatment plan. He was discharged home. Medical Decision Differential considered: pancreatitis, hepatitis, or acute cholecystitis, AAA, UTI, pyelonephritis, kidney stones, appendicitis, diverticulitis, shingles, bowel obstruction mesenteric ischemia, intussusception,hernia, testicular torsion. This is a 27-year-old male who presents to the ED with a chief complaint of abdominal pain. The patient feels that his symptoms could be related to constipation. He states that he has the same pain off and on but today it has been mostly constant. He reports that it is located in the epigastric area and right low back area. The patient has history of testicular cancer and had a left orchiectomy. He has a metastatic mass in the left retroperitoneal space measuring about 17 cm. This was based on a CT scan on 08/15/17. The patient had a port placed last week for chemotherapy. He states that after chemotherapy removal of the tumor will be planned. He states that he was placed on hydrocodone after his port was placed last week. He has been on previous prescriptions for pain medication prior to this as well. Patient's vital signs revealed a tachycardia with a heart rate of 142. His physical exam was otherwise unremarkable. He is without abdominal tenderness on exam. The lungs are clear. CBC reveals a normal white blood cell count and hemoglobin. Acute abdominal series reveals findings most suggestive of an ileus. Blood sugar was 324. The patient was treated as above with IV Toradol, IV fluids and IV Zofran. He is felt to be stable for discharge. He has follow-up with his oncologist on . Medication Reconcilliation Current Medication List: was personally reviewed by me Blood Pressure Screening Patient's blood pressure: Normal blood pressure Impression Primary Impression: Ileus Scribe Attestation The scribe's documentation has been prepared under my direction and personally reviewed by me in its entirety. I confirm that the note above accurately reflects all work, treatment, procedures, and medical decision making performed by me. Departure Information Dispostion Home / Self-Care Referrals No Doctor, Assigned (PCP) Patient Instructions [facility] Additional Instructions Follow-up with your doctor for further care and evaluation in 1-2 days. Return to the emergency department for worsening or new symptoms or any concerns. You have been examined and treated today on an emergency basis only. This is not a substitute for, or an effort to provide, complete comprehensive medical care. It is impossible to recognize and treat all injuries or illnesses in a single emergency department visit. It is therefore important that you follow up closely with your doctor. Call as soon as possible for an appointment.
[2017-09-08 23:54] VITALS: BP 134/83; PULSE 128; O2SAT 100
== END 2017-09-08 23:55 | disposition home or self-care (01) ==
LOC: C.EDB 21:30
DX: K56.7 Ileus, unspecified (principal); E11.9 Type 2 diabetes mellitus without complications; F17.200 Nicotine dependence, unspecified, uncomplicated; Z85.47 Personal history of malignant neoplasm of testis; Z90.79 Acquired absence of other genital organ(s); Z83.3 Family history of diabetes mellitus; Z82.49 Family history of ischemic heart disease and other diseases of the circulatory system; Z84.1 Family history of disorders of kidney and ureter; Z79.4 Long term (current) use of insulin

== ENCOUNTER 2017-09-17 10:18 | Emergency (ER) | payer OTHER ==
[~2017-09-17] VITALS: Ht 182.9 cm; Wt 62.7 kg
[~2017-09-17 10:18] MED LIST changes: +SULF800T23 PO
[2017-09-17 10:24] VITALS: TEMP 36.4; Ht 182.9 cm; Wt 62.7 kg
[2017-09-17] MEDS ORDERED: SODIUM CHLORIDE 0.9% 1000ML 1,000 ML IV ONE (10:45)
[2017-09-17] MEDS ORDERED: MoRPHine SULFATE 10 MG/ML CARP/VIAL IV STA (10:45)
[2017-09-17] MEDS ORDERED: OXYC-164 PO (10:55)
[2017-09-17 11:40] LABS: BASO % 0.2 %; BASO ABS # 0.02 K/uL (0-0.2); EOS % 1.4 %; EOS ABS # 0.13 K/uL (0-0.5); HEMOGLOBIN 13.8 g/dL (14.0-18.0); IG# 0.01 K/uL (0.00-0.02); LYMPH % 14.9 %; MEAN CELL VOLUME 82.6 fL (80-100); MEAN CORPUSCULAR HEMOGLOBIN 29.2 pg (25-34); MEAN CORPUSCULAR HGB CONC 35.4 g/dl (32-36); MEAN PLATELET VOLUME 9.1 fL (7.4-10.4); MONO % 6.6 %; MONO ABS # 0.62 K/uL (0.11-0.59); NEUT % 76.8 %; NEUT ABS # 7.23 K/uL (1.4-6.5); PLATELET COUNT 338 K/uL (130-400); RED CELL DISTRIBUTION WIDTH CV 12.2 % (11.5-14.5); RED CELL DISTRIBUTION WIDTH SD 36.8 fL (36.4-46.3); WHITE BLOOD COUNT 9.41 K/uL (4.8-10.8)
[2017-09-17] MEDS ORDERED: HYDROmorphone INJ 1 MG/ML SYR IV STA (11:53)
[2017-09-17 11:59] LABS: ALBUMIN 3.5 gm/dl (3.4-5.0); ALT/SGPT 17 U/L (12-78); AST/SGOT 16 U/L (15-37); BLOOD UREA NITROGEN 6 mg/dl (7-18); CARBON DIOXIDE 28 mmol/L (21-32); CREATININE 0.69 mg/dl (0.60-1.40); GLUCOSE 130 mg/dl (70-99); LIPASE 33 U/L (73-393); POTASSIUM 3.7 mmol/L (3.5-5.1); SODIUM 132 mmol/L (136-145)
[2017-09-17 12:02] LABS: ALKALINE PHOSPHATASE 100 U/L (45-117); TOTAL PROTEIN 7.6 gm/dl (6.4-8.2)
[2017-09-17] MEDS ORDERED: OPTIRAY 320 IV PRN (13:00)
[2017-09-17] MEDS ORDERED: HYDROmorphone INJ 0.5 MG/0.5 ML SYR IV STA (13:50)
--- NOTE | 2017-09-17 13:56 | DIAGNOSTIC IMAGING REPORT ---
CT ABD/PELVIS IV AND ORAL CONT CLINICAL HISTORY: Abdominal pain. Constipation. HISTORY OF TESTICULAR CANCER COMPARISON STUDY: 08/15/2017 TECHNIQUE: Following the IV administration of 120 mL of Optiray-320, CT scan of the abdomen and pelvis was performed from the lung bases to the proximal femurs. Images are reviewed in the axial, sagittal, and coronal planes. IV contrast was administered without complication. A dose lowering technique was utilized adhering to the principles of ALARA. CT DOSE: 277.43 mGy.cm FINDINGS: Lower chest: The heart is normal in size and configuration, without pericardial effusion. The lung bases and pleural spaces are clear. Liver: The contrast-enhanced liver is normal in size, contour, and attenuation. There is no intrahepatic biliary ductal dilatation. The hepatic veins and portal veins are patent. Gallbladder: Unremarkable. Spleen: Normal in size and attenuation. Pancreas: Unremarkable. Adrenal glands: The right adrenal gland appears normal. The left adrenal gland is difficult to visualize due to the patient's possibly of retroperitoneal fat, and the large left para-aortic mass. Kidneys: No solid renal masses are visualized. There is stable left-sided hydronephrosis. Bowel: There are no transition zone to indicate bowel obstruction. There is scattered stool within the colon. No acute inflammatory changes are visualized. The appendix is not visualized with certainty. Peritoneum: There is no intraperitoneal free air or abdominal ascites. Vasculature: The abdominal aorta is normal in course and caliber. Adenopathy: There is a large left-sided para-aortic mass measuring 15 x 10.5 x 10 cm. This is slightly larger than on the preceding examination. The mass partially encases the aorta. The mass compresses the left renal pelvis and results in secondary hydronephrosis. The mass abuts and likely invades the left psoas musculature. The mass extends inferiorly to the level of the iliac lymph node chain. Pelvic viscera: The bladder, and pelvic viscera are unremarkable. Skeletal structures: Postsurgical changes involve the left hip. There is evidence of avascular necrosis. No destructive lesions are visualized. IMPRESSION: 1. Left para-aortic/retroperitoneal adenopathy, similar to the preceding study measuring approximately 15 x 10.5 x 10 cm. The findings are consistent with metastatic disease. 2. The lymph node mass results in secondary left-sided hydronephrosis 3. The lymph node mass partially encases the abdominal aorta, and likely invades the left psoas musculature 4. No evidence of bowel obstruction. No evidence of free air. Electronically signed by: Ryne Bucio M.D. 09/17/2017 1:55 PM Dictated Date/Time: 09/17/2017 1:47 PM
[2017-09-17 14:50] VITALS: BP 137/76; PULSE 92; O2SAT 99
--- NOTE | 2017-09-17 15:04 | EMERGENCY ROOM VISIT NOTE ---
ED Visit Note First contact with patient: 10:38 Chief Complaint: Abdominal pain and constipation. History of Present Illness: Mr. Leigh is a 27 year-old white male ambulates into the ED accompanied by a female friend complaining of lower quadrant abdominal pain and constipation. Historically patient reports he has a history of left testicular cancer with abdominal metastasis. Patient reports a ongoing bilateral lower quadrant abdominal pain that started approximately 4-5 days ago. Since that time the pain has been constant. The pain is currently described as cramping. The pain is radiating into the lower back. The pain worsens with movement and ambulation. He has not identified any alleviating factors related to the pain. He is been using his prescribed OxyIR without relief of his discomfort. Associated with the pain there has been decreased appetite and he reports he has not have a bowel movement in the last 9 days. He has been using MiraLAX and Colace without relief of his constipation. He does report before the onset of the constipation he was not experiencing any right red blood per rectum or melena. Patient denies fevers, chills, sweats, skin eruptions, skin color changes, upper respiratory tract symptoms, shortness of breath, chest pain, nausea, vomiting, urinary symptoms, hematuria, flank pain. Additionally patient's fianc reports that the patient's blood sugars have been low; when I queried her she reported that before coming to the hospital his blood sugar was 121 and his normal blood sugar is 200 or above. When I question the patient he had no physical symptoms of hypoglycemia. Review of Systems: As noted above in history of present illness. All body systems were reviewed and found to be negative as noted above. Past Medical History: As previously noted type 1 diabetes. Current Medications: Medications Dose Route/Sig Max Daily Dose Days Date Category Dose Instructions Oxycodone Hcl 10 Mg Tab 10 Mg PO Q4 PRN 09/17/17 Reported Multivitamin (Multivitamins) Tab 1 Tab PO QPM 08/27/17 Reported Zofran (Ondansetron HCl) 4 Mg Tab 4 Mg PO PRN PRN 08/27/17 Reported Basaglar Kwikpen (Insulin Glargine) 100 Unit/Ml Inj 21 Units SQ HS 07/28/17 Reported Humalog (Insulin Lispro (Human)) 100 Unit/Ml Inj SQ UD 07/28/17 Reported SLIDING SCALE Adderall 20MG (Amphetamine-Dextroamphetamine 20MG) 1 Tab Tab 20 Mg PO BID 11/29/14 Reported Allergies to Medications: Patient denies. Social History: Patient is not employed; he feels safe in his home environment; he admits to tobacco use and denies alcohol use. Physical Examination: Vital Signs: Date Time Temp Pulse Resp B/P (MAP) Pulse Ox O2 Delivery O2 Flow Rate FiO2 09/17/17 13:20 79 16 132/91 99 Room Air 09/17/17 11:35 85 16 129/76 100 Room Air 09/17/17 10:24 36.4 92 18 127/69 100 Room Air GENERAL: 27-year-old female in moderate distress due to pain, nontoxic-appearing , afebrile and hemodynamically stable. NEUROLOGICAL: Awake, alert and oriented to person, place and time. Answering questions appropriately and following commands. Normal gait. Good hand eye coordination. SKIN: Warm, dry and pink. No soft tissue eruptions or trauma noted. HEENT: Atraumatic and normocephalic. PERRLA. Sclera white and conjunctiva pink. Oral cavity moist and pink. Pharynx is nonerythematous or edematous. Speech normal. No lymphadenopathy. Trachea midline. No jugular venous distention. BACK: No tenderness over the bony thoracic and lumbar spine. No tenderness throughout the paraspinous muscles. No paraspinous muscle spasm. Full range of motion of the lumbar spine. No CVA tenderness. THORAX: Lungs sounds are clear to auscultation and equal bilaterally with symmetrical chest wall. No wheezing, rales or rhonchi. No crepitus, tenderness , subcutaneous air or deformities noted. HEART: Regular rate and rhythm. No gallops, rubs or murmurs are appreciated. ABDOMEN: Flat and firm mild tenderness in the bilateral lower quadrants. Decreased bowel sounds in all quadrants. No guarding, rigidity or organomegaly. EXTREMITIES: Moves all extremities well on command and with purpose. All distal neurovascular statuses are intact and equal bilaterally. ED Course: Patient is assessed as noted above. Laboratory Testing: Test 09/17/17 11:20 09/17/17 13:10 Range/Units White Blood Count 9.41 4.8-10.8 K/uL Red Blood Count 4.72 4.7-6.1 M/uL Hemoglobin 13.8 14.0-18.0 g/dL Hematocrit 39.0 42-52 % Mean Corpuscular Volume 82.6 80-100 fL Mean Corpuscular Hemoglobin 29.2 25-34 pg Mean Corpuscular Hemoglobin Concent 35.4 32-36 g/dl Platelet Count 338 130-400 K/uL Mean Platelet Volume 9.1 7.4-10.4 fL Neutrophils (%) (Auto) 76.8 % Lymphocytes (%) (Auto) 14.9 % Monocytes (%) (Auto) 6.6 % Eosinophils (%) (Auto) 1.4 % Basophils (%) (Auto) 0.2 % Neutrophils # (Auto) 7.23 1.4-6.5 K/uL Lymphocytes # (Auto) 1.40 1.2-3.4 K/uL Monocytes # (Auto) 0.62 0.11-0.59 K/uL Eosinophils # (Auto) 0.13 0-0.5 K/uL Basophils # (Auto) 0.02 0-0.2 K/uL RDW Standard Deviation 36.8 36.4-46.3 fL RDW Coefficient of Variation 12.2 11.5-14.5 % Immature Granulocyte % (Auto) 0.1 % Immature Granulocyte # (Auto) 0.01 0.00-0.02 K/uL Sodium Level 132 136-145 mmol/L Potassium Level 3.7 3.5-5.1 mmol/L Chloride Level 99 98-107 mmol/L Carbon Dioxide Level 28 21-32 mmol/L Anion Gap 5.0 3-11 mmol/L Blood Urea Nitrogen 6 7-18 mg/dl Creatinine 0.69 0.60-1.40 mg/dl Est Creatinine Clear Calc Drug Dose 145.1 ml/min Estimated GFR () > 150.0 Estimated GFR (Non- 131.9 BUN/Creatinine Ratio 8.9 10-20 Random Glucose 130 70-99 mg/dl Calcium Level 9.0 8.5-10.1 mg/dl Total Bilirubin 0.4 0.2-1 mg/dl Direct Bilirubin < 0.1 0-0.2 mg/dl Aspartate Amino Transf (AST/SGOT) 16 15-37 U/L Alanine Aminotransferase (ALT/SGPT) 17 12-78 U/L Alkaline Phosphatase 100 45-117 U/L Total Protein 7.6 6.4-8.2 gm/dl Albumin 3.5 3.4-5.0 gm/dl Lipase 33 73-393 U/L Urine Color YELLOW Urine Appearance CLEAR CLEAR Urine pH 6.5 4.5-7.5 Urine Specific [place] 1.010 1.000-1.030 Urine Protein NEG NEG Urine Glucose (UA) NEG NEG Urine Ketones TRACE NEG Urine Occult Blood NEG NEG Urine Nitrite NEG NEG Urine Bilirubin NEG NEG Urine Urobilinogen NEG NEG Urine Leukocyte Esterase NEG NEG Contrast Abdominal/Pelvic CT: Was reviewed by myself and read by the radiologist showing left para-aortic/retroperitoneal adenopathy; radiologist notes this is similar to his previous finding. Lymph note mass resulting in secondary left-sided hydronephrosis. Lymph node mass partially encasing the abdominal aorta and likely invades the left psoas muscle. No evidence of bowel obstruction or free air. Patient was hydrated with normal saline and initially received 6 mg of morphine IV for pain and 4 mg of Zofran. On reevaluation patient still complained of pain and received a total of 1.5 mg of the Dilaudid IV. Patient was reassessed multiple times during his stay in the emergency department. I did speak to case management and the [facility] hospitalist for medical observation/admission; they both felt the patient met criteria but when I question the patient he reports he did not want to stay in the hospital. He reports that he supposed report the hospital for 6 day start of his chemotherapy admission. Patient's case was reviewed with Dr. Azevedo; we agreed on diagnostic approach , treatment, disposition and plan Patient was educated about today's findings and instructed on his treatment plan ; he verbalized understanding and agreement with this plan. Clinical Impression: Lower abdominal pain. Constipation. Left para-aortic/ retroperitoneal adenopathy. Decision-Making: Sling my differential diagnosis I considered bowel obstruction , worsening metastasis, ureter calculus, pyelonephritis and other causes. Disposition: Patient discharged home in stable condition accompanied by his fiance; prior to departure he was reassessed and subjectively reported he was feeling better and rated his discomfort 6/10. Plan: Continue current medications at home. Return tomorrow for your admission for your start of your chemotherapy. Return to the ED for worsening/uncontrolled pain, fevers, vomiting, bloody stools or any new/concerning symptoms.
== END 2017-09-17 14:51 | disposition home or self-care (01) ==
LOC: C.EDB 10:19 → C.EDA 14:51
DX: R10.30 Lower abdominal pain, unspecified (principal); K59.00 Constipation, unspecified; R59.9 Enlarged lymph nodes, unspecified; Z85.47 Personal history of malignant neoplasm of testis

== ENCOUNTER 2017-09-18 06:59 | Inpatient (IN) | payer OTHER ==
[~2017-09-18] VITALS: Ht 182.9 cm; Wt 61.9 kg
[2017-09-18] VITALS (8 sets, daily range): BP systolic 107–144; BP diastolic 69–83; PULSE 73–102; TEMP 36.6–36.7; O2SAT 96–99; BMI 19.2
[~2017-09-18 06:59] MED LIST changes: -ATR25 PO; -IBUP-1428 PO; +OXYC-164 PO; -SULF800T23 PO
[2017-09-18] MEDS ORDERED: POLYETHYLENE (MIRALAX) 17 GM PACK PO PRN (13:00)
[2017-09-18] MEDS ORDERED: ONDANSETRON 4 MG TAB PO PRN (13:00)
[2017-09-18] MEDS ORDERED: ACETAMINOPHEN 325 MG TAB PO PRN (13:00)
[2017-09-18] MEDS ORDERED: MAGNESIUM HYDROXIDE SUSP 30 ML UDC PO PRN (13:00)
[2017-09-18] MEDS ORDERED: ALUMINUM/MAGNESIUM/SIMETH (MAALOX MAX) 30 ML UDC PO PRN (13:00)
--- NOTE | 2017-09-18 13:06 | History and Physical ---
History & Physical Date of Service Sep 18, 2017. History & Physical admit #[id number]
[2017-09-18] MEDS ORDERED: POLYETHYLENE (MIRALAX) 17 GM PACK PO ONE (13:15)
--- NOTE | 2017-09-18 13:35 | HISTORY & PHYSICAL EXAMINATION ---
DATE OF ADMISSION: 09/18/2017 CHIEF COMPLAINT: Testicular cancer. HISTORY OF PRESENT ILLNESS: The patient is a very pleasant 27-year-old male who is here admitted for treatment of his testicular cancer because of the complicating factor of his type 1 diabetes and the treatment regimen required. He notes that in general, his main problems have been crampy abdominal pain that he relates to constipation. At one point he had gone 9 days without a bowel movement. Otherwise, he does not have any other acute symptoms. He does note in general his sugar control is fairly poor. He uses a carb ratio of about 1:8 but does not check any postprandial to really see how well he has done and he notes his A1c tends to run in the 9's. He also smoked but notes that right now is his quit day. REVIEW OF SYSTEMS: Otherwise negative, except for as above. PAST MEDICAL HISTORY: Includes type 1 diabetes with prior episodes of DKA, hypomagnesemia, hypophosphatemia, testicular cancer and tobacco abuse. MEDICATIONS: Basaglar 21 units at bedtime, Humalog 1 unit per 8 grams of carbohydrates, oxycodone p.r.n. pain and he has been taking p.r.n. MiraLax, Colace without much results. PAST SURGICAL HISTORY: Includes orchiectomy, port placement, dental surgery and neck surgery. FAMILY HISTORY: No family history of diabetes, or at least not of type 1. Aunt had breast cancer. Dad apparently had hypertension. ALLERGIES: No known drug allergies. SOCIAL HISTORY: He did smoke about a pack a day until today. He notes this is quit date. No other significant social history. PHYSICAL EXAMINATION: VITAL SIGNS: Temperature 36.7, pulse 102, respiratory rate 16, blood pressure 132/83, 98% on room air. GENERAL: He is awake, alert, oriented x3, pleasant, in no acute distress. HEAD, EYES, EARS, NOSE, AND THROAT: Normocephalic, atraumatic. Mucous membranes are moist. CARDIOVASCULAR: Regular. No rubs, murmurs, or gallops. LUNGS: Clear to auscultation bilaterally. No rales, rhonchi, or wheezes with good effort. ABDOMEN: Soft, nondistended, nontender. No masses or organomegaly. EXTREMITIES: Without cyanosis, clubbing or edema. No calf tenderness. SKIN: Shows no rashes, no pallor or icterus. NEUROLOGIC: Shows cranial nerves II-XII to be grossly intact. Gross motor and sensory are intact. MUSCULOSKELETAL: Shows no gross lesions. MENTAL STATUS: Shows good recent and remote recall. Normal mood and affect. Good judgment and insight. LABORATORY AND DIAGNOSTICS: His most recent basic metabolic panel shows sodium 132, potassium 3.7, chloride 99, CO2 28, BUN 6, creatinine 0.69, calcium 9, glucose 130. This was all from yesterday. About 2-1/2 weeks ago he had a mag low at 1.7, phosphorus low at 0.8. Yesterday, he had a total bilirubin 0.4 with a direct of less than 0.1, AST 16, ALT 17, alkaline phosphatase 100. His last A1c in late May was 9.0. His CBC yesterday showed a white count of 9.41, hemoglobin 13.8, platelets 338. He had a CT abdomen and pelvis yesterday that showed a decent amount of stool and gas per my review, read by radiology the lower chest showed no cardiopulmonary problems. No pericardial effusion. Lung bases and pleural spaces are clear. Liver without abnormalities. Gallbladder unremarkable. Spleen normal in size and attenuation. Pancreas unremarkable. Adrenal glands, right adrenal appears normal, left is difficult to visualize due to paucity of retroperitoneal fat and large left periaortic mass. Kidneys without solid mass lesion, stable left-sided hydronephrosis. Bowels no transition zones to indicate a bowel obstruction, scattered stool within the colon, no acute inflammatory changes visualized. Appendix not visualized with certainly. Peritoneum shows no intraperitoneal free air or abdominal ascites. Vasculature shows the abdominal aorta are normal in course and caliber. Adenopathy showing a large left-sided periaortic mass measuring 15 x 10.5 x 10, slightly larger than on preceding. Mass partially encases the aorta. Mass compresses left renal pelvis and results in secondary hydronephrosis, abuts left psoas musculature and extends inferiorly to the level of the iliac lymph node chain. Pelvic viscera unremarkable. Skeletal structures show postsurgical changes involving the left hip. 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 ASSESSMENT AND PLAN: 1. Testicular cancer is here for chemotherapy, particularly given the difficulties of his regimen with being an uncontrolled type 1 diabetic. Chemo regimen will be per hematology/oncology. The medical team will assist in supportive care. 2. Uncontrolled type 1 diabetes, I extensively educated him on the basics of diabetes and self management. At this point in time given that it sounds like his chemo regimen will involve steroids I suspect there will be a degree of difficulty in management. Will start with his current regimen and fingersticks and supplemental insulin and will then adjust the regimen accordingly. Again, ongoing education as an outpatient. We will recheck an A1c since he is slightly overdue for this. 3. Hypomagnesemia and hypophosphatemia. We will replace and recheck after he has been on chemo regimen a few days. 4. Tobacco abuse. He has just quit, I applauded his decision. 5. Deep venous thrombosis prophylaxis. Given his metastatic cancer he is certainly higher risk than the average 25-year-old. Will be able to start Lovenox. 6. Mild hyponatremia. I suspect this is pseudohyponatremia from his uncontrolled diabetes.
[2017-09-18 14:00] LABS: INR 1.1 (0.9-1.1)
[2017-09-18] MEDS ORDERED: NURSING VERBAL MED ORDER ONE (14:00)
[2017-09-18 14:11] LABS: CREATININE 0.74 mg/dl (0.60-1.40)
[2017-09-18] MEDS: OXYCODONE HCL IR 5 MG TAB (IMMEDIATE RELEASE) PO PRN ×3 (14:15→23:34)
[2017-09-18] MEDS ORDERED: HYDROCORTISONE IV 100 MG in SYRINGE 0 ML IV PRN (14:30)
[2017-09-18] MEDS ORDERED: DiphenhydrAMINE HCL 50 MG/ML VIAL IV PRN (14:30)
[2017-09-18] MEDS ORDERED: METHYLPREDNISOLONE 125 MG in SYRINGE 0 ML IV PRN (14:30)
[2017-09-18] MEDS: SODIUM CHLORIDE 0.9% 1000ML 1,000 ML IV SCH ×2 (14:34→21:14)
[2017-09-18] MEDS ORDERED: FOSAPREPITANT DIMEGLUMINE INJ 150 MG in SODIUM CHLORIDE 0.9% 150ML 145 ML IV SCH (15:30)
[2017-09-18] MEDS ORDERED: PHARMACY GLYCEMIC MGMT CONSULT PRN (15:30)
[2017-09-18] MEDS ORDERED: DEXAMETHASONE IV SCH (15:30)
[2017-09-18] MEDS ORDERED: SODIUM CHLORIDE 0.9% IV SCH ×3 (15:30→17:00)
[2017-09-18] MEDS ORDERED: PALONOSETRON IV 0.25 MG in SYRINGE 0 ML IV SCH (15:30)
--- NOTE | 2017-09-18 15:54 | Oncology Consultation ---
Oncology/Heme Consultation Date of Consultation: Sep 18, 2017. Attending Physician: Bob Graf D.O. Reason for Consultation: Testicular carcinoma History of Present Illness Mr. 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 This was diagnosed after orchiectomy at [facility] in June 2017. He had presented with a left groin and testicular mass at that time. A subsequent CT scan in August of this year revealed a 17 x 11 cm retroperitoneal lymph devin mass extending from the left renal pelvis to the left iliac chain encasing the left ureter and abdominal aorta. He is now admitted for his first course of chemotherapy made up of 5 days of cis-[place] and etoposide. Alpha-fetoprotein is mildly elevated at 44.7 and a beta hCG in the past was negative. His past medical history is primarily predominated by type 1 diabetes mellitus. He denies any symptoms of neuropathy or history of renal disease. Past Medical/Surgical History Medical Problems: (1) Dehydration Status: Acute (2) DKA (diabetic ketoacidoses) Status: Acute (3) DKA (diabetic ketoacidosis) Status: Acute (4) Hyperglycemia Status: Acute (5) Ileus Status: Acute (6) Lower abdominal pain Status: Acute (7) Nausea & vomiting Status: Acute (8) Testicular/scrotal pain Status: Acute (9) Uncontrolled diabetes mellitus Status: Acute Family History Diabetes mellitus Heart disease Hypertension Kidney disease Kidney stones Social History Smoking Status: Current Every Day Smoker Drug Use: none Marital Status: single Occupation Status: unemployed Allergies Coded Allergies: No Known Allergies (Verified , 09/17/17) Home Medications Scheduled Amphetamine-Dextroamphetamine 20MG (Adderall 20MG), 20 MG PO BID Insulin Glargine (Basaglar Kwikpen), 21 UNITS SQ HS Insulin Lispro (Human) (Humalog), SQ UD Multivitamin (Multivitamin), 1 TAB PO QPM Scheduled PRN Ondansetron Hcl (Zofran), 4 MG PO PRN PRN for Nausea Oxycodone Hcl (Oxycodone Hcl), 10 MG PO Q4 PRN for Pain Current Inpatient Medications Current Inpatient Medications Medications (Trade) Dose Ordered Sig/Maddie Route Start Time Stop Time Status Last Admin Dose Admin Enoxaparin Sodium (Lovenox Inj) 40 mg HS SQ 09/18/17 21:00 2/16/18 20:59 Acetaminophen (Tylenol Tab) 650 mg Q4H PRN PO 09/18/17 13:00 10/18/17 12:59 Al Hydrox/Mg Hydrox/Simethicone (Maalox Max Susp) 15 ml Q4H PRN PO 09/18/17 13:00 10/18/17 12:59 Magnesium Hydroxide (Milk Of Magnesia Susp) 30 ml Q6H PRN PO 09/18/17 13:00 10/18/17 12:59 Polyethylene (Miralax Powder Packet) 17 gm DAILY PRN PO 09/18/17 13:00 10/18/17 12:59 Ondansetron HCl (Zofran Inj) 4 mg Q6H PRN IV 09/18/17 13:00 10/18/17 12:59 Amphetamine Aspartate/ Amphetam Sulf (Amphetamine Aspartate/Amph Sulf/Dextramphet) 20 mg BID PO 09/18/17 20:00 10/02/17 19:59 UNV Insulin Glargine (Lantus Solostar Pen) 21 units HS SQ 09/18/17 21:00 10/18/17 20:59 Insulin Aspart (novoLOG ASPART) AC SQ 09/18/17 16:30 10/18/17 16:29 09/18/17 14:33 12 UNITS Multivitamins (Multivitamin Tab) 1 tab QPM PO 09/18/17 21:00 10/18/17 20:59 Ondansetron HCl (Zofran Tab) 4 mg TID PRN PO 09/18/17 13:00 10/18/17 12:59 Oxycodone HCl (Roxicodone Immediate Rel Tab) 10 mg Q4H PRN PO 09/18/17 13:15 10/02/17 13:14 09/18/17 14:15 10 MG Potassium/ Phosphorus/Sodium (Phospha 250 Neutral 155-852-130 Mg) 1 tab QID PO 09/18/17 17:00 10/18/17 16:59 Magnesium Oxide (Mag-Ox Tab) 400 mg QAM PO 09/19/17 08:00 10/19/17 07:59 Docusate Sodium (coLACE CAP) 100 mg BID PO 09/18/17 20:00 10/18/17 19:59 Palonosetron 0.25 mg/Syringe 5 ml @ 10 mls/min TODAY@1530 IV 09/18/17 15:30 09/18/17 23:59 Dexamethasone Sodium Phosphate 10 mg/Sodium Chloride 52.5 ml @ 157.5 mls/ hr TODAY@1530 IV 09/18/17 15:30 09/18/17 23:59 Fosaprepitant 150 mg/Sodium Chloride 150 ml @ 300 mls/hr TODAY@1530 IV 09/18/17 15:30 09/18/17 23:59 Cisplatin 36 mg/ Sodium Chloride 286 ml @ 286 mls/hr TODAY@1700 IV 09/18/17 17:00 09/18/17 23:59 Cisplatin 36 mg/ Sodium Chloride 286 ml @ 286 mls/hr TODAY@1300 IV 09/19/17 13:00 09/19/17 23:59 Cisplatin 36 mg/ Sodium Chloride 286 ml @ 286 mls/hr DAILY@1100 IV 09/20/17 11:00 09/22/17 23:59 Sodium Chloride 1,000 ml @ 1,000 mls/hr TODAY@1600,1800 IV 09/18/17 16:00 09/18/17 23:59 09/18/17 14:34 1,000 MLS/HR Sodium Chloride 1,000 ml @ 1,000 mls/hr TODAY@1200,1400 IV 09/19/17 12:00 09/19/17 23:59 Sodium Chloride 1,000 ml @ 1,000 mls/hr BID@1000,1200 IV 09/20/17 10:00 09/22/17 23:59 Diphenhydramine HCl (Benadryl Inj) 50 mg PRN PRN IV 09/18/17 14:30 09/22/17 23:59 Hydrocortisone Sodium Succinate 100 mg/Syringe 2 ml @ 4 mls/min PRN PRN IV 09/18/17 14:30 09/22/17 23:59 Methylprednisolone Sodium Succinate 125 mg/Syringe 2 ml @ 1.5 mls/min PRN PRN IV 09/18/17 14:30 09/22/17 23:59 Etoposide 180 mg/ Sodium Chloride 509 ml @ 509 mls/hr TODAY@1600 IV 09/18/17 16:00 09/18/17 23:59 Etoposide 180 mg/ Sodium Chloride 509 ml @ 509 mls/hr DAILY@1000 IV 09/20/17 10:00 09/22/17 23:59 Etoposide 180 mg/ Sodium Chloride 509 ml @ 509 mls/hr TODAY@1200 IV 09/19/17 12:00 09/19/17 23:59 Miscellaneous Information (Consult Glycemic Management Pharmacy) 1 ea UD PRN N/A 09/18/17 15:30 10/18/17 15:29 Dexamethasone Sodium Phosphate 10 mg/Sodium Chloride 52.5 ml @ 157.5 mls/ hr TODAY@1130 IV 09/19/17 11:30 09/19/17 23:59 Dexamethasone Sodium Phosphate 10 mg/Sodium Chloride 52.5 ml @ 157.5 mls/ hr DAILY@0930 IV 09/20/17 09:30 09/22/17 23:59 Review of Systems Constitutional: Negative for night sweats, or fever Eyes: Negative for event change of vision ENT: Negative for epistaxis, nasal discharge, sore throat, or deafness Cardiovascular: Negative for chest pain, palpitations, dizziness, diaphoresis Respiratory: Negative for new shortness of breath,hemoptysis, or purulent cough Gastrointestinal: Negative for diarrhea, hematemesis, melena, nausea, vomiting , or dyspepsia Integumentary (skin): Negative for rash or jaundice discoloration Genitourinary: Negative for urinary frequency, hematuria, or dysuria Neurological: Negative for weakness, seizure activity, headache, or dizziness Lymphatic/Hematologic: Negative for petechiae, bleeding or new adenopathy Musculoskeletal: Negative for new joint or back pain Allergic/Immunologic: Negative for unusual rash or pruritis. Physical Exam Date Time Temp Pulse Resp B/P (MAP) Pulse Ox O2 Delivery O2 Flow Rate FiO2 09/18/17 12:10 36.7 102 16 132/83 98 Room Air Constitutional: vitals are stable. Thin pleasant young man Eyes: Eyes are SOM EOMI without conjuctival erythema or icterus. ENT: External examination was negative for masses. Neck: Negative for masses or palpable thyromegaly Respiratory: Lung sounds were generally clear bilaterally Cardiovascular: Heart was RRR without significant murmur, gallops aoe rubs Gastrointestinal: No palpable hepatic or splenomegaly. The abdomen was soft with normal bowel sounds. Lymphatic system: there was no palpable peripheral lymphadenopathy Musculoskeletal System: The musculoskeletal system seemed concordant with age. Skin: The skin was negative for jaundice. Neurologic exam: The exam was negative for any focal findings. Deep tendon reflexes were equal and symmetrical. Psychiatric exam: Was essentially negative with normal mood and effect. 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 He has a sizable retroperitoneal lymph devin mass mildly elevated alpha-fetoprotein that would characterize his disease has good risk stage II disease. His baseline blood work is acceptable to move on with chemotherapy as outlined by Dr. Cruz earlier. Consent forms have been signed and therapy is about to begin. His therapy is made up again a 5 days of daily cis-[place] and etoposide to be repeated every 3 weeks - with plans for 4 treatments
[2017-09-18] MEDS ORDERED: POLYOLEFIN IV SCH ×2 (16:00)
[2017-09-18] MEDS ORDERED: GLUCOSE 40% GEL 15 GM TUBE PO PRN (16:00)
[2017-09-18] MEDS ORDERED: SOD CHL IV SCH ×2 (16:00)
[2017-09-18] MEDS ORDERED: DEXTROSE 50% 50 ML SYR IV PRN (16:00)
[2017-09-18] MEDS ORDERED: GLUCAGON FOR INJ 1 MG VIAL SQ PRN (16:00)
[2017-09-18] MEDS ORDERED: ETOPOSIDE IV SCH ×3 (16:00)
[2017-09-18] MEDS ORDERED: GLUCOSE 10 TABS/TUBE PO PRN (16:00)
--- NOTE | 2017-09-18 16:08 | Pharmacy Progress Note ---
Glycemic Control Intl Consult Date of Service Sep 18, 2017. Scope Glycemic Pharmacist consulted by Dr Hendricks on 09/18/17 for glycemic control and to write orders per [facility] inpatient glycemic control protocol Objective Weight (Kilograms): 63.700 Accuchecks BSG (last 24hrs): Test 09/18/17 13:18 Bedside Glucose 239 mg/dl (70-99) Laboratory Data (last 24hrs) Test 09/18/17 13:02 09/18/17 13:41 Creatinine 0.74 mg/dl HbA1c Test 09/18/17 13:02 Recent Pertinent Medications Outpatient Anti-diabetic Regimen: * Lantus 21 units qPM plus Novolog CR of 1 unit: 8 grams * A1c = 9.0 % 05/31/17 Risk Factors for Insulin Resistance: * Steroids: dexamethasone 10 mg IV daily x 5 days prior to chemotherapy * Diet: type 1 diabetic diet Assessment & Plan ASSESSMENT: * Mr Leigh is a 27 y/o M with a PMH of testicular CA undergoing chemotherapy with cisplatin and PHP [employer]EL[employer]-16. He had tumor removal surgery in June. * Mr Leigh has been a type 1 diabetic since he was 12-13 years old. He has not seen an antique clock repairer since 2010 and has been taking the same regimen for years. Patient states he has around 10-12 lows/week mostly in the middle of the night after snacking (takes Novolog and Lantus) and sometimes after he eats especially if he doesn't eat enough. Fasting blood sugar around 150-200 mg/dL - will eat in the middle of the night if has low blood sugar. Feels that blood sugar has been labile since June when the tumor was removed and switched from Lantus to basaglar. * Patient typically snacks - will not cover smaller snacks (such as pretzels or chips) but does cover larger snacks. Sometimes misses Lantus if he falls asleep and then will not take it until the next night. He is okay if IV insulin is required. * I feel that the low blood sugars are secondary to the aggressive Novolog dosing. The parameters are weight-based stress of 3 which is VERY aggressive in a type 1 diabetic. Will loosen to weight-based stress of 2 for him even while on steroids. Can tighten tonight to 30/10 if necessary. Unknown how patient will react to IV steroids. * Continue home Lantus dose. Even if this is too aggressive I am comfortable with it due to his steroid dosing. PLAN FOR INPATIENT GLYCEMIC CONTROL * Basal insulin with LANTUS 21 units SQ HS * Correctional Insulin with NOVOLOG per scale ACHS or Q6hrs while NPO * Goal Range: Low 110 mg/dL - High 140 mg/dL * Correction Factor: 35 mg/dL/unit * Nutritional / Prandial insulin per carb ratio of 1 unit per 12 grams CHO consumed * Please note that the plan above was derived based on current level of insulin resistance and hospital stress. These recommendations are appropriate for inpatient admission only. Plan of care upon discharge will need to be reassessed to avoid potential outpatient hypo/hyperglycemia. Thank you.
[2017-09-18] MEDS ORDERED: INSULIN ASPART 100 UNITS/ML 3 ML PEN SQ SCH (16:30)
[2017-09-18] MEDS ORDERED: CISPLATIN IV SCH (17:00)
[2017-09-18] MEDS ORDERED: KETOROLAC TROMETHAMINE 15 MG/ML VIAL IV PRN (17:45)
[2017-09-18] MEDS: POT PHOSPHATE MONOBASIC W/ SOD TAB PO SCH ×2 (17:58→21:15)
[2017-09-18] MEDS: INSULIN ASPART 100 UNITS/ML 3 ML PEN SQ SCH ×2 (18:19→21:00)
[2017-09-18] MEDS ORDERED: INSULIN GLARGINE SOLOSTAR 100 UNITS/ML 3 ML PEN SQ SCH (21:00)
[2017-09-18] MEDS: DOCUSATE SODIUM 100 MG CAP PO SCH (21:14)
[2017-09-18] MEDS: MULTIVITAMIN TAB PO SCH (21:14)
[2017-09-18] MEDS: ENOXAPARIN 40 MG/0.4 ML SYR SQ SCH (21:15)
[2017-09-18] MEDS: INSULIN GLARGINE SOLOSTAR 100 UNITS/ML 3 ML PEN SQ SCH (21:20)
[2017-09-18] MEDS ORDERED: MoRPHine SULFATE 4 MG/ML 1 ML CARP\\VIAL ONE (21:28)
[2017-09-19] VITALS (11 sets, daily range): BP systolic 103–142; BP diastolic 57–87; PULSE 74–106; TEMP 36.5–36.8; O2SAT 97–99; BMI 19.4
[2017-09-19] MEDS: MoRPHine SULFATE 4 MG/ML 1 ML CARP\\VIAL IV PRN ×5 (02:00→19:35)
[2017-09-19] MEDS ORDERED: INSULIN ASPART 100 UNITS/ML 3 ML PEN SQ SCH (02:00)
[2017-09-19 06:22] LABS: HEMOGLOBIN A1C 9.5 % (4.5-5.6)
[2017-09-19 06:38] LABS: CALCIUM 8.6 mg/dl (8.5-10.1); CREATININE 0.74 mg/dl (0.60-1.40); POTASSIUM 4.7 mmol/L (3.5-5.1)
[2017-09-19] MEDS: POT PHOSPHATE MONOBASIC W/ SOD TAB PO SCH ×4 (08:14→19:37)
[2017-09-19] MEDS: DOCUSATE SODIUM 100 MG CAP PO SCH ×2 (08:15→19:37)
[2017-09-19] MEDS: MAGNESIUM OXIDE 400 MG TAB PO SCH (08:15)
[2017-09-19] MEDS: AMPHETAMINE ASP/SULF/DEXTRAMPH 20 MG TAB PO SCH ×2 (08:18→12:25)
[2017-09-19] MEDS: OXYCODONE HCL IR 5 MG TAB (IMMEDIATE RELEASE) PO PRN ×4 (08:18→22:04)
[2017-09-19] MEDS: INSULIN ASPART 100 UNITS/ML 3 ML PEN SQ SCH ×4 (08:26→20:46)
[2017-09-19 08:45] LABS: BLOOD UREA NITROGEN 8 mg/dl (7-18); CALCIUM 8.6 mg/dl (8.5-10.1); CARBON DIOXIDE 26 mmol/L (21-32); CREATININE 0.62 mg/dl (0.60-1.40); GLUCOSE 363 mg/dl (70-99); POTASSIUM 4.5 mmol/L (3.5-5.1); SODIUM 132 mmol/L (136-145)
[2017-09-19] MEDS ORDERED: NURSING VERBAL MED ORDER ONE ×2 (09:15→10:00)
[2017-09-19] MEDS ORDERED: NICOTINE 14 MG/24 HR TDSY TD SCH (09:45)
[2017-09-19 09:47] LABS: BASO % 0.1 %; BASO ABS # 0.01 K/uL (0-0.2); HEMATOCRIT 35.6 % (42-52); HEMOGLOBIN 12.3 g/dL (14.0-18.0); IG# 0.01 K/uL (0.00-0.02); LYMPH % 14.6 %; MEAN CELL VOLUME 83.6 fL (80-100); MEAN CORPUSCULAR HEMOGLOBIN 28.9 pg (25-34); MEAN CORPUSCULAR HGB CONC 34.6 g/dl (32-36); MEAN PLATELET VOLUME 8.9 fL (7.4-10.4); MONO % 9.7 %; MONO ABS # 0.73 K/uL (0.11-0.59); NEUT % 75.5 %; PLATELET COUNT 345 K/uL (130-400); RED CELL DISTRIBUTION WIDTH CV 12.3 % (11.5-14.5); RED CELL DISTRIBUTION WIDTH SD 37.7 fL (36.4-46.3); WHITE BLOOD COUNT 7.55 K/uL (4.8-10.8)
[2017-09-19] MEDS ORDERED: LORAZEPAM 2 MG/ML 1 ML VIAL ONE (10:24)
[2017-09-19] MEDS ORDERED: POLYETHYLENE (MIRALAX) 17 GM PACK PO PRN (11:00)
[2017-09-19] MEDS: SODIUM CHLORIDE 0.9% 1000ML 1,000 ML IV SCH ×2 (11:26→14:00)
[2017-09-19] MEDS ORDERED: SODIUM CHLORIDE 0.9% IV SCH ×3 (11:30→13:00)
[2017-09-19] MEDS ORDERED: DEXAMETHASONE IV SCH (11:30)
[2017-09-19] MEDS ORDERED: SOD CHL IV SCH ×2 (12:00)
[2017-09-19] MEDS ORDERED: ETOPOSIDE IV SCH ×3 (12:00)
[2017-09-19] MEDS ORDERED: POLYOLEFIN IV SCH ×2 (12:00)
[2017-09-19] MEDS ORDERED: CISPLATIN IV SCH (13:00)
[2017-09-19] MEDS ORDERED: BISACODYL 5 MG TABEC PO PRN (13:00)
[2017-09-19] MEDS: NICOTINE 21 MG/24 HR TDSY TD SCH (13:40)
--- NOTE | 2017-09-19 13:43 | Hematology/Oncology Prog Note ---
Hematology/Onc Progress Note Date of Service Sep 19, 2017. Diagnoses Nonseminomatous testicular carcinoma Medications Medications Administered Medications (Trade) Dose Ordered Sig/Maddie Route Start Time Stop Time Status Last Admin Dose Admin Enoxaparin Sodium (Lovenox Inj) 40 mg HS SQ 09/18/17 21:00 10/18/17 20:59 09/18/17 21:15 40 MG Amphetamine Aspartate/ Amphetam Sulf (Amphetamine Aspartate/Amph Sulf/Dextramphet) 20 mg BID@0800,1200 PO 09/19/17 08:00 10/03/17 07:59 09/19/17 12:25 20 MG Insulin Aspart (novoLOG ASPART) AC SQ 09/18/17 16:30 09/18/17 16:30 DC 09/18/17 14:33 12 UNITS Multivitamins (Multivitamin Tab) 1 tab QPM PO 09/18/17 21:00 10/18/17 20:59 09/18/17 21:14 1 TAB Oxycodone HCl (Roxicodone Immediate Rel Tab) 10 mg Q4H PRN PO 09/18/17 13:15 10/02/17 13:14 09/19/17 13:12 10 MG Potassium/ Phosphorus/Sodium (Phospha 250 Neutral 155-852-130 Mg) 1 tab QID PO 09/18/17 17:00 10/18/17 16:59 09/19/17 12:22 1 TAB Magnesium Oxide (Mag-Ox Tab) 400 mg QAM PO 09/19/17 08:00 10/19/17 07:59 09/19/17 08:15 400 MG Polyethylene (Miralax Powder Packet) 34 gm ONE ONCE PO 09/18/17 13:15 09/18/17 13:21 DC 09/18/17 14:34 34 GM Docusate Sodium (coLACE CAP) 100 mg BID PO 09/18/17 20:00 10/18/17 19:59 09/19/17 08:15 100 MG Palonosetron 0.25 mg/Syringe 5 ml @ 10 mls/min TODAY@1530 IV 09/18/17 15:30 09/18/17 23:59 DC 09/18/17 16:21 10 MLS/MIN Dexamethasone Sodium Phosphate 10 mg/Sodium Chloride 52.5 ml @ 157.5 mls/ hr TODAY@1530 IV 09/18/17 15:30 09/18/17 23:59 DC 09/18/17 16:28 157.5 MLS/HR Fosaprepitant 150 mg/Sodium Chloride 150 ml @ 300 mls/hr TODAY@1530 IV 09/18/17 15:30 09/18/17 23:59 DC 09/18/17 17:14 300 MLS/HR Etoposide 180 mg/ Sodium Chloride 509 ml @ 509 mls/hr TODAY@1600 IV 09/18/17 16:00 09/18/17 16:00 DC 09/18/17 18:05 509 MLS/HR Cisplatin 36 mg/ Sodium Chloride 286 ml @ 286 mls/hr TODAY@1700 IV 09/18/17 17:00 09/18/17 23:59 DC 09/18/17 19:51 286 MLS/HR Sodium Chloride 1,000 ml @ 1,000 mls/hr TODAY@1600,1800 IV 09/18/17 16:00 09/18/17 23:59 DC 09/18/17 21:14 1,000 MLS/HR Sodium Chloride 1,000 ml @ 1,000 mls/hr TODAY@1200,1400 IV 09/19/17 12:00 09/19/17 23:59 09/19/17 11:26 1,000 MLS/HR Etoposide 180 mg/ Sodium Chloride 509 ml @ 509 mls/hr TODAY@1600 IV 09/18/17 16:00 09/18/17 23:59 DC 09/18/17 18:08 509 MLS/HR Etoposide 180 mg/ Sodium Chloride 509 ml @ 509 mls/hr TODAY@1200 IV 09/19/17 12:00 09/19/17 23:59 09/19/17 13:06 509 MLS/HR Dexamethasone Sodium Phosphate 10 mg/Sodium Chloride 52.5 ml @ 157.5 mls/ hr TODAY@1130 IV 09/19/17 11:30 09/19/17 23:59 09/19/17 12:19 157.5 MLS/HR Insulin Aspart (novoLOG ASPART) ACHS SQ 09/18/17 16:30 10/18/17 16:29 09/19/17 12:25 8 UNITS Insulin Aspart (novoLOG ASPART) TODAY@0200 SQ 09/19/17 02:00 09/19/17 02:01 DC 09/19/17 02:12 2 UNITS Insulin Glargine (Lantus Solostar Pen) 18 units HS SQ 09/18/17 21:00 10/18/17 20:59 09/18/17 21:20 18 UNITS Morphine Sulfate (MoRPHine SULFATE INJ) 4 mg Q4H PRN IV 09/18/17 21:30 10/02/17 21:29 09/19/17 12:20 4 MG Morphine Sulfate (MoRPHine SULFATE INJ) 4 mg STK-MED ONCE .ROUTE 09/18/17 21:28 09/18/17 21:29 DC 09/18/17 21:31 4 MG Heparin Sodium (Porcine) (Heparin 100 Unit/ml 5ml Flush) 5 ml PRN PRN IV 09/18/17 22:15 10/18/17 22:14 09/19/17 05:37 5 ML Nicotine (Nicoderm Cq 14MG Patch) 1 patch QAM TD 09/19/17 09:45 09/19/17 12:56 DC 09/19/17 10:18 1 PATCH Lorazepam (Ativan Inj) 2 mg STK-MED ONCE .ROUTE 09/19/17 10:24 09/19/17 10:25 DC 09/19/17 10:25 0.5 MG Subjective Tolerated the first day of cis-little traverse and etoposide well. He is having some hiccups now. Otherwise his review of systems is unable Review of Systems: Constitutional: Negative for weight loss, night sweats, or fever Eyes: Negative for event change of vision ENT: Negative for epistaxis, nasal discharge, sore throat, or deafness Cardiovascular: Negative for chest pain, palpitations, dizziness, diaphoresis Respiratory: Negative for new shortness of breath,hemoptysis, or purulent cough Gastrointestinal: Negative for diarrhea, hematemesis, melena, nausea, vomiting , or dyspepsia Integumentary (skin): Negative for rash or jaundice discoloration Neurological: Negative for weakness, seizure activity, headache, or dizziness Lymphatic/Hematologic: Negative for petechiae, bleeding or new adenopathy Musculoskeletal: Negative for new joint or back pain Allergic/Immunologic: Negative for unusual rash or pruritis. Vital Signs Vital Signs Past 12 Hours Date Time Temp Pulse Resp B/P (MAP) Pulse Ox O2 Delivery O2 Flow Rate FiO2 09/19/17 13:04 36.8 94 16 103/66 (78) 99 Room Air 09/19/17 11:38 36.5 91 16 118/70 (86) 99 09/19/17 08:15 Room Air 09/19/17 07:17 36.6 82 16 107/57 (74) 98 09/19/17 04:12 36.6 74 18 114/67 (83) 97 Room Air Physical Exam Constitutional: vitals are stable. Eyes: Eyes are SOM EOMI without conjuctival erythema or icterus. ENT: External examination was negative for masses. Neck: Negative for masses or palpable thyromegaly Respiratory: Lung sounds were generally clear bilaterally Cardiovascular: Heart was RRR without significant murmur, gallops aoe rubs Gastrointestinal: No palpable hepatic or splenomegaly. The abdomen was soft with normal bowel sounds. Lymphatic system: there was no palpable peripheral lymphadenopathy Musculoskeletal System: The musculoskeletal system seemed concordant with age. Skin: The skin was negative for jaundice. Neurologic exam: The exam was negative for any focal findings. Deep tendon reflexes were equal and symmetrical. Psychiatric exam: Was essentially negative with normal mood and effect. Extremities: Negative for edema Laboratory Last 24 Hours Test 09/18/17 16:25 09/18/17 16:47 09/18/17 18:16 09/18/17 19:43 Bedside Glucose 46 mg/dl 88 mg/dl 121 mg/dl 61 mg/dl Test 09/18/17 20:07 09/19/17 02:08 09/19/17 05:41 09/19/17 07:48 Bedside Glucose 116 mg/dl 217 mg/dl 364 mg/dl Sodium Level 132 mmol/L Potassium Level 4.7 mmol/L Chloride Level 100 mmol/L Carbon Dioxide Level 27 mmol/L Anion Gap 5.0 mmol/L Blood Urea Nitrogen 7 mg/dl Creatinine 0.74 mg/dl Est Creatinine Clear Calc Drug Dose 137.5 ml/min Estimated GFR () 148.6 Estimated GFR (Non- 128.2 BUN/Creatinine Ratio 8.9 Random Glucose 339 mg/dl Calcium Level 8.6 mg/dl Beta-Hydroxybutyric Acid 0.81 mg/dL Test 09/19/17 07:58 09/19/17 09:34 09/19/17 11:28 Sodium Level 132 mmol/L Potassium Level 4.5 mmol/L Chloride Level 99 mmol/L Carbon Dioxide Level 26 mmol/L Anion Gap 8.0 mmol/L Blood Urea Nitrogen 8 mg/dl Creatinine 0.62 mg/dl Est Creatinine Clear Calc Drug Dose 167.5 ml/min Estimated GFR () > 150.0 Estimated GFR (Non- 137.9 BUN/Creatinine Ratio 12.5 Random Glucose 363 mg/dl Calcium Level 8.6 mg/dl Magnesium Level 1.9 mg/dl Beta-Hydroxybutyric Acid 0.94 mg/dL White Blood Count 7.55 K/uL Red Blood Count 4.26 M/uL Hemoglobin 12.3 g/dL Hematocrit 35.6 % Mean Corpuscular Volume 83.6 fL Mean Corpuscular Hemoglobin 28.9 pg Mean Corpuscular Hemoglobin Concent 34.6 g/dl Platelet Count 345 K/uL Mean Platelet Volume 8.9 fL Neutrophils (%) (Auto) 75.5 % Lymphocytes (%) (Auto) 14.6 % Monocytes (%) (Auto) 9.7 % Eosinophils (%) (Auto) 0.0 % Basophils (%) (Auto) 0.1 % Neutrophils # (Auto) 5.70 K/uL Lymphocytes # (Auto) 1.10 K/uL Monocytes # (Auto) 0.73 K/uL Eosinophils # (Auto) 0.00 K/uL Basophils # (Auto) 0.01 K/uL RDW Standard Deviation 37.7 fL RDW Coefficient of Variation 12.3 % Immature Granulocyte % (Auto) 0.1 % Immature Granulocyte # (Auto) 0.01 K/uL Phosphorus Level 3.7 mg/dl Bedside Glucose 229 mg/dl Assessment & Plan Nonseminomatous testicular carcinoma being treated with cis-little traverse and etoposide. He is tolerating the therapy well. He cups might be secondary to the Decadron as he is received however he feels it might be from watch. In any case he is tolerating therapy and day #2/5 of cisplatin and etoposide will be given.
--- NOTE | 2017-09-19 13:58 | Hospitalist Progress Note ---
Hospitalist Progress Note Date of Service Sep 19, 2017. Subjective Pt evaluation today including: conversation w/ patient, conversation w/ family (significant other at bedside), physical exam, chart review, lab review, review of inpatient medication list Pain: Low back pain PO Intake: Tolerating PO diet Voiding: no voiding problems Patient complains of some bilateral lower back pain that radiates around to his lower abdomen. He states it feels sharp and stabbing but at times throbbing. He also complains of a tightness in his left upper back by his shoulder blade. The patient had wanted to quit smoking on admission, however today he became very irritated and more aggressive per nursing. Patient placed on nicotine patch and given Ativan, and he is now feeling better. The patient states that he has been very constipated lately. His last BM was 2 nights ago but prior to that he had gone 9 days without a BM. The patient denies fevers, chills, sweats , chest pain, palpitations, claudication, cough, wheezing, shortness of breath, nausea, vomiting, dysuria, hematuria, urinary retention, paralysis, weakness, numbness and tingling. Additional Comments: See HPI for pertinent positives and negatives. All other systems reviewed and negative. Objective Vital Signs Date Time Temp Pulse Resp B/P (MAP) Pulse Ox O2 Delivery O2 Flow Rate FiO2 09/19/17 13:04 36.8 94 16 103/66 (78) 99 Room Air 09/19/17 11:38 36.5 91 16 118/70 (86) 99 09/19/17 08:15 Room Air 09/19/17 07:17 36.6 82 16 107/57 (74) 98 09/19/17 04:12 36.6 74 18 114/67 (83) 97 Room Air 09/19/17 00:36 Room Air 09/18/17 23:29 36.7 88 18 119/76 (90) 99 Room Air 09/18/17 20:45 Room Air 09/18/17 20:41 36.7 77 20 123/77 (92) 96 Room Air 09/18/17 19:39 36.6 73 18 107/69 (82) 98 Room Air 09/18/17 18:27 36.6 84 18 144/81 (102) 96 09/18/17 18:00 36.6 86 20 117/78 (91) 98 Room Air 09/18/17 16:15 99 Room Air 09/18/17 16:08 36.6 79 18 127/82 (97) 99 Room Air Physical Exam Notes: General appearance: Well-developed, well-nourished, no apparent distress Head: Normocephalic, atraumatic Eyes: Normal inspection, PERRL, EOMI ENT: Normal ENT inspection, hearing grossly normal, pharynx normal Neck: Supple, no JVD, trachea midline Respiratory/Chest: Lungs clear to auscultation, normal breath sounds, no respiratory distress Cardiovascular: Regular rate & rhythm, no gallop, no murmur Abdomen/GI: +Upper quadrants mildly TTP. Normal bowel sounds, soft Extremities/Musculoskeletal: Normal inspection, no calf tenderness, no pedal edema Neurological/Psych: Alert, normal mood/affect, oriented x 3 Skin: Normal color, warm/dry, no rash Laboratory Results Last 24 Hours Test 09/18/17 13:41 09/18/17 16:25 09/18/17 16:47 09/18/17 18:16 Prothrombin Time 11.2 SECONDS Prothromb Time International Ratio 1.1 Creatinine 0.74 mg/dl Est Creatinine Clear Calc Drug Dose 137.5 ml/min Estimated GFR () 148.6 Estimated GFR (Non- 128.2 Bedside Glucose 46 mg/dl 88 mg/dl 121 mg/dl Test 09/18/17 19:43 09/18/17 20:07 09/19/17 02:08 09/19/17 05:41 Bedside Glucose 61 mg/dl 116 mg/dl 217 mg/dl Sodium Level 132 mmol/L Potassium Level 4.7 mmol/L Chloride Level 100 mmol/L Carbon Dioxide Level 27 mmol/L Anion Gap 5.0 mmol/L Blood Urea Nitrogen 7 mg/dl Creatinine 0.74 mg/dl Est Creatinine Clear Calc Drug Dose 137.5 ml/min Estimated GFR () 148.6 Estimated GFR (Non- 128.2 BUN/Creatinine Ratio 8.9 Random Glucose 339 mg/dl Calcium Level 8.6 mg/dl Beta-Hydroxybutyric Acid 0.81 mg/dL Test 09/19/17 07:48 09/19/17 07:58 09/19/17 09:34 09/19/17 11:28 Bedside Glucose 364 mg/dl 229 mg/dl Sodium Level 132 mmol/L Potassium Level 4.5 mmol/L Chloride Level 99 mmol/L Carbon Dioxide Level 26 mmol/L Anion Gap 8.0 mmol/L Blood Urea Nitrogen 8 mg/dl Creatinine 0.62 mg/dl Est Creatinine Clear Calc Drug Dose 167.5 ml/min Estimated GFR () > 150.0 Estimated GFR (Non- 137.9 BUN/Creatinine Ratio 12.5 Random Glucose 363 mg/dl Calcium Level 8.6 mg/dl Magnesium Level 1.9 mg/dl Beta-Hydroxybutyric Acid 0.94 mg/dL White Blood Count 7.55 K/uL Red Blood Count 4.26 M/uL Hemoglobin 12.3 g/dL Hematocrit 35.6 % Mean Corpuscular Volume 83.6 fL Mean Corpuscular Hemoglobin 28.9 pg Mean Corpuscular Hemoglobin Concent 34.6 g/dl Platelet Count 345 K/uL Mean Platelet Volume 8.9 fL Neutrophils (%) (Auto) 75.5 % Lymphocytes (%) (Auto) 14.6 % Monocytes (%) (Auto) 9.7 % Eosinophils (%) (Auto) 0.0 % Basophils (%) (Auto) 0.1 % Neutrophils # (Auto) 5.70 K/uL Lymphocytes # (Auto) 1.10 K/uL Monocytes # (Auto) 0.73 K/uL Eosinophils # (Auto) 0.00 K/uL Basophils # (Auto) 0.01 K/uL RDW Standard Deviation 37.7 fL RDW Coefficient of Variation 12.3 % Immature Granulocyte % (Auto) 0.1 % Immature Granulocyte # (Auto) 0.01 K/uL Phosphorus Level 3.7 mg/dl Assessment and Plan 27 y/o male with a history of metastatic testicular cancer, DM type 1, ADHD, hypomagnesia and hypophosphatemia who presents for direct admission to receive chemotherapy treatment in the setting of his uncontrolled diabetes. Metastatic testicular cancer receiving chemo -Admit to med/surg -Consult oncology, appreciate recs: Chemotherapy for 5 days every 3 weeks for 4 total treatments. -Chemo regimen per oncology -Morphine 4 mg IV q4h prn pain, toradol 15 mg IV q6h prn pain, continue home oxycodone 10 mg PO q4h prn pain Uncontrolled DM type 1 -Pharmacy consulted for glycemic control -Lantus 18 units SC hs on board currently, takes 21 units at home. Will likely need to titrate up given steroids are part of chemo regimen -Insulin sliding scale -Check BSGs q ac and qhs -HgbA1c 9.5 on 09/18 Constipation -Continue Colace 100 mg PO BID, milk of magnesia 30 mL PO q6h prn constipation -Miralax 17 gm PO qd scheduled, Dulcolax 10 mg PO qd prn constipation ADHD--stable -Continue Adderall 20 mg PO BID Hypomagnesemia, hypophosphatemia--stable -Mg, phos currently WNL -Continue Mag Ox 400 mg PO qd and neutra phos PO QID Tobacco abuse--wanted to quit but became very irritable and more aggressive/ volatile -Nicotine patch 21 mg -Ativan 0.5 mg PO q8h prn DVT prophylaxis -Enoxaparin 40 mg SC q24h Code Status -Level I, FULL RESUSCITATION STATUS
--- NOTE | 2017-09-19 14:56 | Pharmacy Progress Note ---
Glycemic Control Progress Note Date of Service Sep 19, 2017. Scope Glycemic Pharmacist consulted for glycemic control to write orders per [facility] inpatient glycemic control protocol. Objective Accuchecks BSG (last 24hrs): Test 09/18/17 16:25 09/18/17 16:47 09/18/17 18:16 09/18/17 19:43 Bedside Glucose 46 mg/dl (70-99) 88 mg/dl (70-99) 121 mg/dl (70-99) 61 mg/dl (70-99) Test 09/18/17 20:07 09/19/17 02:08 09/19/17 05:41 09/19/17 07:48 Bedside Glucose 116 mg/dl (70-99) 217 mg/dl (70-99) 364 mg/dl (70-99) Random Glucose 339 mg/dl (70-99) Test 09/19/17 07:58 09/19/17 11:28 Random Glucose 363 mg/dl (70-99) Bedside Glucose 229 mg/dl (70-99) HbA1c: Test 09/18/17 13:02 Hemoglobin A1c 9.5 % (4.5-5.6) H Recent Pertinent Medications Outpatient Anti-diabetic Regimen: * Lantus 21 units qPM plus Novolog CR of 1 unit: 8 grams Risk Factors for Insulin Resistance: * Steroids: dexamethasone 10 mg IV daily x 5 days prior to chemotherapy (day 2 of therapy) * Diet: type 1 diabetic diet Outpatient Anti-Diabetic Meds see above Assessment & Plan ASSESSMENT: * Mr Leigh is a 27 y/o M with a PMH of testicular CA undergoing chemotherapy with cisplatin and B[employer] MACHINE [employer]TER-16. He had tumor removal surgery in June. * Mr Leigh has been a type 1 diabetic since he was 12-13 years old. He has not seen an plane tender since 2010 and has been taking the same regimen for years. Patient states he has around 10-12 lows/week mostly in the middle of the night after snacking (takes Novolog and Lantus) and sometimes after he eats especially if he doesn't eat enough. Fasting blood sugar around 150-200 mg/dL - will eat in the middle of the night if has low blood sugar. Feels that blood sugar has been labile since June when the tumor was removed and switched from Lantus to basaglar. * Patient typically snacks - will not cover smaller snacks (such as pretzels or chips) but does cover larger snacks. Sometimes misses Lantus if he falls asleep and then will not take it until the next night. He is okay if IV insulin is required. * Whenever the patient came in yesterday, his blood sugar was 239 mg/dL and he received 12 units per MD. The patient then had several low blood sugars (46,88) and Novolog coverage was loosened yesterday. His fasting today was 339 mg/dL. The patient admitted to the nurse he had a regular coke last night (uncovered) and apple juice prior to the morning labs. This accounts for most of the high blood sugar values but I believe dexamethasone is still responsible for some of it. * His Lantus dose was reduced last night to 18 units. This seemed appropriate for today as the patient has trended downwards throughout the day. Monitor closely and his fasting was artificially elevated. PLAN FOR INPATIENT GLYCEMIC CONTROL * Basal insulin with LANTUS 18 units SQ HS * Correctional Insulin with NOVOLOG per scale ACHS or Q6hrs while NPO * Goal Range: Low 110 mg/dL - High 140 mg/dL * Correction Factor: 35 mg/dL/unit * Nutritional / Prandial insulin per carb ratio of 1 unit per 12 grams CHO consumed * Please note that the plan above was derived based on current level of insulin resistance and hospital stress. These recommendations are appropriate for inpatient admission only. Plan of care upon discharge will need to be reassessed to avoid potential outpatient hypo/hyperglycemia. Thank you.
[2017-09-19] MEDS: MULTIVITAMIN TAB PO SCH (19:38)
[2017-09-19] MEDS: ENOXAPARIN 40 MG/0.4 ML SYR SQ SCH (19:38)
[2017-09-19] MEDS: LORAZEPAM 0.5 MG TAB PO PRN (20:33)
[2017-09-19] MEDS: INSULIN GLARGINE SOLOSTAR 100 UNITS/ML 3 ML PEN SQ SCH (20:47)
[2017-09-20] VITALS (9 sets, daily range): BP systolic 97–144; BP diastolic 55–88; PULSE 69–120; TEMP 36.4–37; O2SAT 96–100; BMI 19.4; BMI 19.6
[2017-09-20] MEDS ORDERED: INSULIN ASPART 100 UNITS/ML 3 ML PEN SQ SCH (02:00)
[2017-09-20] MEDS: MoRPHine SULFATE 4 MG/ML 1 ML CARP\\VIAL IV PRN ×4 (05:54→20:53)
[2017-09-20 06:01] LABS: HEMATOCRIT 32.3 % (42-52); HEMOGLOBIN 11.1 g/dL (14.0-18.0); MEAN CELL VOLUME 84.3 fL (80-100); MEAN CORPUSCULAR HGB CONC 34.4 g/dl (32-36); MEAN PLATELET VOLUME 9.1 fL (7.4-10.4); PLATELET COUNT 326 K/uL (130-400); RED CELL DISTRIBUTION WIDTH CV 12.4 % (11.5-14.5); RED CELL DISTRIBUTION WIDTH SD 38.2 fL (36.4-46.3); WHITE BLOOD COUNT 9.09 K/uL (4.8-10.8)
[2017-09-20 06:39] LABS: BLOOD UREA NITROGEN 10 mg/dl (7-18); CALCIUM 8.2 mg/dl (8.5-10.1); CARBON DIOXIDE 30 mmol/L (21-32); CREATININE 0.52 mg/dl (0.60-1.40); GLUCOSE 94 mg/dl (70-99); PHOSPHORUS 3.5 mg/dl (2.5-4.9); POTASSIUM 3.6 mmol/L (3.5-5.1); SODIUM 140 mmol/L (136-145)
[2017-09-20] MEDS ORDERED: POLYETHYLENE (MIRALAX) 17 GM PACK PO SCH (08:00)
[2017-09-20] MEDS: OXYCODONE HCL IR 5 MG TAB (IMMEDIATE RELEASE) PO PRN ×4 (08:19→22:23)
[2017-09-20] MEDS: AMPHETAMINE ASP/SULF/DEXTRAMPH 20 MG TAB PO SCH ×2 (08:19→12:15)
[2017-09-20] MEDS: MAGNESIUM OXIDE 400 MG TAB PO SCH (08:20)
[2017-09-20] MEDS: NICOTINE 21 MG/24 HR TDSY TD SCH (08:20)
[2017-09-20] MEDS: POT PHOSPHATE MONOBASIC W/ SOD TAB PO SCH ×4 (08:20→20:57)
[2017-09-20] MEDS: POLYETHYLENE (MIRALAX) 17 GM PACK PO SCH (08:21)
[2017-09-20] MEDS: DOCUSATE SODIUM 100 MG CAP PO SCH ×2 (08:34→22:19)
[2017-09-20] MEDS: SODIUM CHLORIDE 0.9% 1000ML 1,000 ML IV SCH ×2 (08:36→12:47)
[2017-09-20] MEDS: DEXAMETHASONE IV SCH (09:47)
[2017-09-20] MEDS: SODIUM CHLORIDE 0.9% IV SCH ×3 (09:47→11:29)
[2017-09-20] MEDS: INSULIN ASPART 100 UNITS/ML 3 ML PEN SQ SCH ×4 (09:52→21:53)
--- NOTE | 2017-09-20 09:56 | Progress Note ---
Subjective Date of Service: Sep 20, 2017. Subjective Pt evaluation today including: conversation w/ patient, physical exam, chart review, lab review, review of studies, conversation w/ claims consultant, review of inpatient medication list Doing okay, no complaining, has bowel movement yesterday, blood glucose fairly controlled, Problem List Medical Problems: (1) Dehydration Status: Acute (2) DKA (diabetic ketoacidoses) Status: Acute (3) DKA (diabetic ketoacidosis) Status: Acute (4) Hyperglycemia Status: Acute (5) Ileus Status: Acute (6) Lower abdominal pain Status: Acute (7) Nausea & vomiting Status: Acute (8) Testicular/scrotal pain Status: Acute (9) Uncontrolled diabetes mellitus Status: Acute Review of Systems Constitutional: + weakness, + fatigue, No fever, No chills, No sweats, No weight loss, No problem reported Eyes: No worsening of vision, No eye pain, No redness, No discharge, No diplopia ENT: No hearing loss, No unusual epistaxis, No nasal symptoms, No sore throat, No tinnitus, No dental problems, No trouble swallowing Respiratory: No cough, No sputum, No wheezing, No shortness of breath, No dyspnea on exertion, No dyspnea at rest, No hemoptysis Cardiac: No chest pain, No orthopnea, No PND, No edema, No claudication, No palpitations Abdomen: No pain, No nausea, No vomiting, No diarrhea, No constipation Musculoskeletal: No joint pain, No muscle pain, No swelling, No calf pain Male : No dysuria, No urinary frequency, No incontinence, No nocturia more than once/night, No slowing stream, No hematuria Neurologic: No memory loss, No paralysis, No weakness, No numbness/tingling, No vertigo, No balance problems Psychiatric: No depression symptoms, No anhedonism, No anxiety, No insomnia, No substance abuse Heme: No abnormal bleeding/bruising, No clotting problems, No swollen lymph nodes, No night sweats Endo: No fatigue, No excessive thirst, No excessive urination Skin: No rash, No itch, No new/changing skin lesions, No color change, No bleeding Objective Vital Signs Date Time Temp Pulse Resp B/P (MAP) Pulse Ox O2 Delivery O2 Flow Rate FiO2 09/20/17 07:51 36.6 75 16 105/55 (72) 96 09/20/17 04:00 36.6 69 18 97/58 (71) 99 Room Air 09/20/17 00:00 Room Air 09/19/17 22:34 36.6 106 18 122/63 (82) 97 Room Air 09/19/17 20:00 36.5 102 18 142/87 (105) 98 Room Air 09/19/17 16:00 98 Room Air 09/19/17 15:44 36.7 89 22 122/73 (89) 98 Room Air 09/19/17 14:53 36.8 89 16 133/80 (97) 97 Room Air 09/19/17 14:20 36.6 98 16 120/77 (91) 98 Room Air 09/19/17 13:44 36.6 98 16 127/81 (96) 99 Room Air 09/19/17 13:04 36.8 94 16 103/66 (78) 99 Room Air 09/19/17 11:38 36.5 91 16 118/70 (86) 99 Physical Exam General Appearance: WD/WN, no apparent distress, + thin Eyes: normal inspection, PERRL, EOMI, sclerae normal ENT: normal ENT inspection, hearing grossly normal, pharynx normal Neck: supple, no adenopathy, thyroid normal, no JVD, no carotid bruits, trachea midline Respiratory/Chest: chest non-tender, lungs clear, normal breath sounds, no respiratory distress, no accessory muscle use Cardiovascular: regular rate, rhythm, no edema, no gallop, no JVD, no murmur, + pertinent finding (Mediport is in left anterior chest wall) Abdomen: normal bowel sounds, non tender, soft, no organomegaly, no pulsatile mass Extremities: normal range of motion, non-tender, normal inspection, no pedal edema, no calf tenderness, normal capillary refill, pelvis stable Neurologic/Psychiatric: greens keeper II-XII nml as tested, no motor/sensory deficits, alert, normal mood/affect, oriented x 3 Skin: normal color, warm/dry, no rash Lymphatic: no adenopathy Laboratory Results Last 24 Hours Test 09/19/17 11:28 09/19/17 16:36 09/19/17 19:33 09/20/17 01:51 Bedside Glucose 229 mg/dl 235 mg/dl 225 mg/dl 155 mg/dl Test 09/20/17 05:37 09/20/17 07:34 White Blood Count 9.09 K/uL Red Blood Count 3.83 M/uL Hemoglobin 11.1 g/dL Hematocrit 32.3 % Mean Corpuscular Volume 84.3 fL Mean Corpuscular Hemoglobin 29.0 pg Mean Corpuscular Hemoglobin Concent 34.4 g/dl RDW Standard Deviation 38.2 fL RDW Coefficient of Variation 12.4 % Platelet Count 326 K/uL Mean Platelet Volume 9.1 fL Sodium Level 140 mmol/L Potassium Level 3.6 mmol/L Chloride Level 106 mmol/L Carbon Dioxide Level 30 mmol/L Anion Gap 4.0 mmol/L Blood Urea Nitrogen 10 mg/dl Creatinine 0.52 mg/dl Est Creatinine Clear Calc Drug Dose 199.7 ml/min Estimated GFR () > 150.0 Estimated GFR (Non- 148.2 BUN/Creatinine Ratio 18.8 Random Glucose 94 mg/dl Calcium Level 8.2 mg/dl Phosphorus Level 3.5 mg/dl Magnesium Level 1.9 mg/dl Bedside Glucose 77 mg/dl Assessment and Plan 27 y/o male with Metastatic testicular cancer receiving chemo, oncologist on the case, this is basically chemotherapy Uncontrolled DM type 1, blood glucose fairly controlled , Pharmacy consulted for glycemic control, blood glucose level is acceptable Constipation, bowel regimen he is ordered, continue current care ADHD--stable Hypomagnesemia, hypophosphatemia--stable Tobacco abuse, Nicotine patch 21 mg, consult quit smoking Anxiety , is on Ativan 0.5 mg PO q8h prn DVT prophylaxis -Enoxaparin 40 mg SC q24h this note is for the service of 09/19/2017 Continued [facility] stay due to: multiple IV medications needed Discharge planning: home
[2017-09-20] MEDS ORDERED: POLYOLEFIN IV SCH ×2 (10:00)
[2017-09-20] MEDS ORDERED: SOD CHL IV SCH ×2 (10:00)
[2017-09-20] MEDS ORDERED: ETOPOSIDE IV SCH ×2 (10:00)
[2017-09-20] MEDS: ETOPOSIDE IV SCH (10:23)
--- NOTE | 2017-09-20 10:29 | Hematology/Oncology Prog Note ---
Hematology/Onc Progress Note Date of Service Sep 20, 2017. Diagnoses Nonseminomatous testicular carcinoma Medications Medications Administered Medications (Trade) Dose Ordered Sig/Maddie Route Start Time Stop Time Status Last Admin Dose Admin Enoxaparin Sodium (Lovenox Inj) 40 mg HS SQ 09/18/17 21:00 10/18/17 20:59 09/19/17 19:38 40 MG Amphetamine Aspartate/ Amphetam Sulf (Amphetamine Aspartate/Amph Sulf/Dextramphet) 20 mg BID@0800,1200 PO 09/19/17 08:00 10/03/17 07:59 09/20/17 08:19 20 MG Insulin Aspart (novoLOG ASPART) AC SQ 09/18/17 16:30 09/18/17 16:30 DC 09/18/17 14:33 12 UNITS Multivitamins (Multivitamin Tab) 1 tab QPM PO 09/18/17 21:00 10/18/17 20:59 09/19/17 19:38 1 TAB Oxycodone HCl (Roxicodone Immediate Rel Tab) 10 mg Q4H PRN PO 09/18/17 13:15 10/02/17 13:14 09/20/17 08:19 10 MG Potassium/ Phosphorus/Sodium (Phospha 250 Neutral 155-852-130 Mg) 1 tab QID PO 09/18/17 17:00 10/18/17 16:59 09/20/17 08:20 1 TAB Magnesium Oxide (Mag-Ox Tab) 400 mg QAM PO 09/19/17 08:00 10/19/17 07:59 09/20/17 08:20 400 MG Polyethylene (Miralax Powder Packet) 34 gm ONE ONCE PO 09/18/17 13:15 09/18/17 13:21 DC 09/18/17 14:34 34 GM Docusate Sodium (coLACE CAP) 100 mg BID PO 09/18/17 20:00 10/18/17 19:59 09/20/17 08:34 100 MG Palonosetron 0.25 mg/Syringe 5 ml @ 10 mls/min TODAY@1530 IV 09/18/17 15:30 09/18/17 23:59 DC 09/18/17 16:21 10 MLS/MIN Dexamethasone Sodium Phosphate 10 mg/Sodium Chloride 52.5 ml @ 157.5 mls/ hr TODAY@1530 IV 09/18/17 15:30 09/18/17 23:59 DC 09/18/17 16:28 157.5 MLS/HR Fosaprepitant 150 mg/Sodium Chloride 150 ml @ 300 mls/hr TODAY@1530 IV 09/18/17 15:30 09/18/17 23:59 DC 09/18/17 17:14 300 MLS/HR Etoposide 180 mg/ Sodium Chloride 509 ml @ 509 mls/hr TODAY@1600 IV 09/18/17 16:00 09/18/17 16:00 DC 09/18/17 18:05 509 MLS/HR Cisplatin 36 mg/ Sodium Chloride 286 ml @ 286 mls/hr TODAY@1700 IV 09/18/17 17:00 09/18/17 23:59 DC 09/18/17 19:51 286 MLS/HR Cisplatin 36 mg/ Sodium Chloride 286 ml @ 286 mls/hr TODAY@1300 IV 09/19/17 13:00 09/19/17 23:59 DC 09/19/17 14:23 286 MLS/HR Sodium Chloride 1,000 ml @ 1,000 mls/hr TODAY@1600,1800 IV 09/18/17 16:00 09/18/17 23:59 DC 09/18/17 21:14 1,000 MLS/HR Sodium Chloride 1,000 ml @ 1,000 mls/hr TODAY@1200,1400 IV 09/19/17 12:00 09/19/17 23:59 DC 09/19/17 14:00 1,000 MLS/HR Sodium Chloride 1,000 ml @ 1,000 mls/hr BID@1000,1200 IV 09/20/17 10:00 09/22/17 23:59 09/20/17 08:36 1,000 MLS/HR Etoposide 180 mg/ Sodium Chloride 509 ml @ 509 mls/hr TODAY@1600 IV 09/18/17 16:00 09/18/17 23:59 DC 09/18/17 18:08 509 MLS/HR Etoposide 180 mg/ Sodium Chloride 509 ml @ 509 mls/hr DAILY@1000 IV 09/20/17 10:00 09/22/17 23:59 09/20/17 10:23 509 MLS/HR Etoposide 180 mg/ Sodium Chloride 509 ml @ 509 mls/hr TODAY@1200 IV 09/19/17 12:00 09/19/17 23:59 DC 09/19/17 13:06 509 MLS/HR Dexamethasone Sodium Phosphate 10 mg/Sodium Chloride 52.5 ml @ 157.5 mls/ hr TODAY@1130 IV 09/19/17 11:30 09/19/17 23:59 DC 09/19/17 12:19 157.5 MLS/HR Dexamethasone Sodium Phosphate 10 mg/Sodium Chloride 52.5 ml @ 157.5 mls/ hr DAILY@0930 IV 09/20/17 09:30 09/22/17 23:59 09/20/17 09:47 157.5 MLS/HR Insulin Aspart (novoLOG ASPART) ACHS SQ 09/18/17 16:30 10/18/17 16:29 09/20/17 09:52 3 UNITS Insulin Aspart (novoLOG ASPART) TODAY@0200 SQ 09/19/17 02:00 09/19/17 02:01 DC 09/19/17 02:12 2 UNITS Ketorolac Tromethamine (Toradol Inj) 15 mg Q6H PRN IV 09/18/17 17:45 09/23/17 17:44 09/19/17 14:49 15 MG Insulin Glargine (Lantus Solostar Pen) 18 units HS SQ 09/18/17 21:00 10/18/17 20:59 09/19/17 20:47 18 UNITS Morphine Sulfate (MoRPHine SULFATE INJ) 4 mg Q4H PRN IV 09/18/17 21:30 10/02/17 21:29 09/20/17 09:55 4 MG Morphine Sulfate (MoRPHine SULFATE INJ) 4 mg STK-MED ONCE .ROUTE 09/18/17 21:28 09/18/17 21:29 DC 09/18/17 21:31 4 MG Heparin Sodium (Porcine) (Heparin 100 Unit/ml 5ml Flush) 5 ml PRN PRN IV 09/18/17 22:15 10/18/17 22:14 09/20/17 05:58 5 ML Nicotine (Nicoderm Cq 14MG Patch) 1 patch QAM TD 09/19/17 09:45 09/19/17 12:56 DC 09/19/17 10:18 1 PATCH Lorazepam (Ativan Inj) 2 mg STK-MED ONCE .ROUTE 09/19/17 10:24 09/19/17 10:25 DC 09/19/17 10:25 0.5 MG Polyethylene (Miralax Powder Packet) 17 gm DAILY PO 09/20/17 08:00 10/20/17 07:59 09/20/17 08:21 17 GM Lorazepam (Ativan Tab) 0.5 mg Q8 PRN PO 09/19/17 11:00 10/19/17 10:59 09/19/17 20:33 0.5 MG Nicotine (Nicoderm Cq 21MG Patch) 1 patch QAM TD 09/20/17 08:00 10/20/17 07:59 09/20/17 08:20 1 PATCH Insulin Aspart (novoLOG ASPART) SLIDING SCALE 0200 SQ 09/20/17 02:00 09/20/17 02:01 DC 09/20/17 02:11 1 UNITS Subjective Tolerated day #2 of cis-[place] and etoposide quite well. He has a negative review of systems Review of Systems: Constitutional: Negative for night sweats, or fever Eyes: Negative for event change of vision ENT: Negative for epistaxis, nasal discharge, sore throat, or deafness Cardiovascular: Negative for chest pain, palpitations, dizziness, diaphoresis Respiratory: Negative for new shortness of breath,hemoptysis, or purulent cough Gastrointestinal: Negative for diarrhea, hematemesis, melena, nausea, vomiting , or dyspepsia Integumentary (skin): Negative for rash or jaundice discoloration Neurological: Negative for weakness, seizure activity, headache, or dizziness Lymphatic/Hematologic: Negative for petechiae, bleeding or new adenopathy Musculoskeletal: Negative for new joint or back pain Allergic/Immunologic: Negative for unusual rash or pruritis. Vital Signs Vital Signs Past 12 Hours Date Time Temp Pulse Resp B/P (MAP) Pulse Ox O2 Delivery O2 Flow Rate FiO2 09/20/17 10:17 36.4 72 16 129/75 (93) 100 Room Air 09/20/17 07:51 36.6 75 16 105/55 (72) 96 09/20/17 04:00 36.6 69 18 97/58 (71) 99 Room Air 09/20/17 00:00 Room Air 09/19/17 22:34 36.6 106 18 122/63 (82) 97 Room Air Physical Exam Constitutional: vitals are stable. Eyes: Eyes are SOM EOMI without conjuctival erythema or icterus. ENT: External examination was negative for masses. Neck: Negative for masses or palpable thyromegaly Respiratory: Lung sounds were generally clear bilaterally Cardiovascular: Heart was RRR without significant murmur, gallops aoe rubs Gastrointestinal: No palpable hepatic or splenomegaly. The abdomen was soft with normal bowel sounds. Lymphatic system: there was no palpable peripheral lymphadenopathy Musculoskeletal System: The musculoskeletal system seemed concordant with age. Skin: The skin was negative for jaundice. Neurologic exam: The exam was negative for any focal findings. Deep tendon reflexes were equal and symmetrical. Psychiatric exam: Was essentially negative with normal mood and effect. Extremities: Negative for edema Laboratory Last 24 Hours Test 09/19/17 11:28 09/19/17 16:36 09/19/17 19:33 09/20/17 01:51 Bedside Glucose 229 mg/dl 235 mg/dl 225 mg/dl 155 mg/dl Test 09/20/17 05:37 09/20/17 07:34 White Blood Count 9.09 K/uL Red Blood Count 3.83 M/uL Hemoglobin 11.1 g/dL Hematocrit 32.3 % Mean Corpuscular Volume 84.3 fL Mean Corpuscular Hemoglobin 29.0 pg Mean Corpuscular Hemoglobin Concent 34.4 g/dl RDW Standard Deviation 38.2 fL RDW Coefficient of Variation 12.4 % Platelet Count 326 K/uL Mean Platelet Volume 9.1 fL Sodium Level 140 mmol/L Potassium Level 3.6 mmol/L Chloride Level 106 mmol/L Carbon Dioxide Level 30 mmol/L Anion Gap 4.0 mmol/L Blood Urea Nitrogen 10 mg/dl Creatinine 0.52 mg/dl Est Creatinine Clear Calc Drug Dose 199.7 ml/min Estimated GFR () > 150.0 Estimated GFR (Non- 148.2 BUN/Creatinine Ratio 18.8 Random Glucose 94 mg/dl Calcium Level 8.2 mg/dl Phosphorus Level 3.5 mg/dl Magnesium Level 1.9 mg/dl Bedside Glucose 77 mg/dl Assessment & Plan Nonseminomatous testicular carcinoma being treated with cis-[place] and etoposide. He is tolerating the therapy well. His hiccups have subsided he is doing well. Day #3 of the doublet will carry on.
[2017-09-20] MEDS: CISPLATIN IV SCH (11:29)
[2017-09-20] MEDS ORDERED: INSULIN HUMAN REGULAR PER UNIT 5 UNITS in SYRINGE 4.95 ML IV SCH ×2 (17:30→21:30)
[2017-09-20] MEDS: ENOXAPARIN 40 MG/0.4 ML SYR SQ SCH (20:51)
[2017-09-20] MEDS: INSULIN GLARGINE SOLOSTAR 100 UNITS/ML 3 ML PEN SQ SCH (21:54)
[2017-09-20] MEDS: MULTIVITAMIN TAB PO SCH (22:19)
[2017-09-21] VITALS (12 sets, daily range): BP systolic 96–145; BP diastolic 59–83; PULSE 58–106; TEMP 36.4–36.7; O2SAT 97–100; BMI 19.4
[2017-09-21] MEDS: MoRPHine SULFATE 4 MG/ML 1 ML CARP\\VIAL IV PRN ×4 (01:46→20:59)
[2017-09-21] MEDS ORDERED: INSULIN ASPART 100 UNITS/ML 3 ML PEN SQ SCH ×2 (02:00→21:00)
[2017-09-21 06:00] LABS: HEMATOCRIT 31.5 % (42-52); HEMOGLOBIN 10.7 g/dL (14.0-18.0); MEAN CELL VOLUME 84.5 fL (80-100); MEAN CORPUSCULAR HEMOGLOBIN 28.7 pg (25-34); MEAN PLATELET VOLUME 9.5 fL (7.4-10.4); PLATELET COUNT 353 K/uL (130-400); RED CELL DISTRIBUTION WIDTH CV 12.3 % (11.5-14.5); RED CELL DISTRIBUTION WIDTH SD 37.9 fL (36.4-46.3); WHITE BLOOD COUNT 6.32 K/uL (4.8-10.8)
[2017-09-21] MEDS: INSULIN ASPART 100 UNITS/ML 3 ML PEN SQ SCH ×3 (06:30→18:20)
[2017-09-21] MEDS: POLYETHYLENE (MIRALAX) 17 GM PACK PO SCH ×3 (08:00→12:45)
[2017-09-21] MEDS: DOCUSATE SODIUM 100 MG CAP PO SCH ×2 (08:04→21:04)
[2017-09-21] MEDS: OXYCODONE HCL IR 5 MG TAB (IMMEDIATE RELEASE) PO PRN ×3 (08:04→17:52)
[2017-09-21] MEDS: POT PHOSPHATE MONOBASIC W/ SOD TAB PO SCH ×4 (08:05→21:03)
[2017-09-21] MEDS: NICOTINE 21 MG/24 HR TDSY TD SCH (08:05)
[2017-09-21] MEDS: MAGNESIUM OXIDE 400 MG TAB PO SCH (08:05)
[2017-09-21] MEDS: AMPHETAMINE ASP/SULF/DEXTRAMPH 20 MG TAB PO SCH ×2 (08:07→12:23)
[2017-09-21] MEDS: SODIUM CHLORIDE 0.9% 1000ML 1,000 ML IV SCH ×2 (09:20→14:43)
[2017-09-21 09:34] LABS: BLOOD UREA NITROGEN 12 mg/dl (7-18); CALCIUM 8.3 mg/dl (8.5-10.1); CARBON DIOXIDE 29 mmol/L (21-32); CREATININE 0.44 mg/dl (0.60-1.40); GLUCOSE 57 mg/dl (70-99); POTASSIUM 3.8 mmol/L (3.5-5.1); SODIUM 138 mmol/L (136-145)
[2017-09-21] MEDS: SODIUM CHLORIDE 0.9% IV SCH ×3 (10:11→12:20)
[2017-09-21] MEDS: DEXAMETHASONE IV SCH (10:11)
--- NOTE | 2017-09-21 10:29 | Hospitalist Progress Note ---
Hospitalist Progress Note Date of Service Sep 21, 2017. Subjective Pt evaluation today including: conversation w/ patient, physical exam, chart review, lab review, review of inpatient medication list Pain: 8/10 pain lower back PO Intake: Tolerating PO diet Voiding: no voiding problems Patient complains of 8/10 sharp pain in his lower back that radiates somewhat around to his flanks; however, patient was sleeping soundly prior to my exam and had to be awakened. He reports not having a bowel movement since Saturday, but nursing had noted a BM yesterday. He denies any other complaints. The patient denies fevers, chills, sweats, chest pain, palpitations, claudication, cough, wheezing, shortness of breath, nausea, vomiting, abdominal pain, dysuria , hematuria, urinary retention, paralysis, weakness, numbness and tingling. Additional Comments: See HPI for pertinent positives and negatives. All other systems reviewed and negative. Objective Vital Signs Date Time Temp Pulse Resp B/P (MAP) Pulse Ox O2 Delivery O2 Flow Rate FiO2 09/21/17 08:00 98 Room Air 09/21/17 07:04 36.4 83 17 102/59 (73) 98 Room Air 09/21/17 04:17 36.4 68 18 96/60 (72) 100 Room Air 09/21/17 00:00 Room Air 09/20/17 23:31 36.7 76 18 122/72 (89) 99 Room Air 09/20/17 19:43 120 20 128/80 (96) 98 Room Air 09/20/17 16:00 Room Air 09/20/17 12:47 36.5 103 16 144/81 (102) 99 Room Air 09/20/17 12:06 36.6 111 16 144/78 (100) 99 Room Air 09/20/17 11:26 36.6 76 16 137/88 (104) 100 Room Air 09/20/17 11:03 36.7 99 16 135/81 (99) 100 Room Air Physical Exam Notes: General appearance: Well-developed, well-nourished, no apparent distress Head: Normocephalic, atraumatic Eyes: Normal inspection, PERRL, EOMI ENT: Normal ENT inspection, hearing grossly normal, pharynx normal Neck: Supple, no JVD, trachea midline Respiratory/Chest: Lungs clear to auscultation, normal breath sounds, no respiratory distress Cardiovascular: Regular rate & rhythm, no gallop, no murmur Abdomen/GI: +Upper quadrants very mildly TTP. Normal bowel sounds, soft Extremities/Musculoskeletal: Normal inspection, no calf tenderness, no pedal edema Neurological/Psych: Alert, normal mood/affect, oriented x 3 Skin: Normal color, warm/dry, no rash Laboratory Results Last 24 Hours Test 09/20/17 11:26 09/20/17 16:40 09/20/17 16:42 09/20/17 20:47 Bedside Glucose 189 mg/dl 439 mg/dl 410 mg/dl 421 mg/dl Test 09/21/17 01:52 09/21/17 04:47 09/21/17 07:50 09/21/17 08:07 Bedside Glucose 94 mg/dl 57 mg/dl 98 mg/dl White Blood Count 6.32 K/uL Red Blood Count 3.73 M/uL Hemoglobin 10.7 g/dL Hematocrit 31.5 % Mean Corpuscular Volume 84.5 fL Mean Corpuscular Hemoglobin 28.7 pg Mean Corpuscular Hemoglobin Concent 34.0 g/dl RDW Standard Deviation 37.9 fL RDW Coefficient of Variation 12.3 % Platelet Count 353 K/uL Mean Platelet Volume 9.5 fL Sodium Level 138 mmol/L Potassium Level 3.8 mmol/L Chloride Level 103 mmol/L Carbon Dioxide Level 29 mmol/L Anion Gap 7.0 mmol/L Blood Urea Nitrogen 12 mg/dl Creatinine 0.44 mg/dl Est Creatinine Clear Calc Drug Dose 235.6 ml/min Estimated GFR () > 150.0 Estimated GFR (Non- > 150.0 BUN/Creatinine Ratio 26.5 Random Glucose 57 mg/dl Calcium Level 8.3 mg/dl Assessment and Plan 27 y/o male with a history of metastatic testicular cancer, DM type 1, ADHD, hypomagnesia and hypophosphatemia who presents for direct admission to receive chemotherapy treatment in the setting of his uncontrolled diabetes. Metastatic testicular cancer receiving chemo -Admit to med/surg -Consult oncology, appreciate recs: Chemotherapy for 5 days every 3 weeks for 4 total treatments. Tolerating chemo well. -Chemo regimen per oncology. Day #4 of 5. -Morphine 4 mg IV q4h prn pain, toradol 15 mg IV q6h prn pain, continue home oxycodone 10 mg PO q4h prn pain Uncontrolled DM type 1 -Pharmacy consulted for glycemic control -BSG down to 57 this am. Sliding scale at bedtime adjusted -Lantus 18 units SC hs on board currently, takes 21 units at home. -Insulin sliding scale -Check BSGs q ac and qhs -HgbA1c 9.5 on 09/18 Constipation -Continue Colace 100 mg PO BID, milk of magnesia 30 mL PO q6h prn constipation -Miralax 17 gm PO qd scheduled, Dulcolax 10 mg PO qd prn constipation ADHD--stable -Continue Adderall 20 mg PO BID Hypomagnesemia, hypophosphatemia--stable -Mg, phos currently WNL -Continue Mag Ox 400 mg PO qd and neutra phos PO QID Tobacco abuse--wanted to quit but became very irritable and more aggressive/ volatile -Nicotine patch 21 mg -Ativan 0.5 mg PO q8h prn DVT prophylaxis -Enoxaparin 40 mg SC q24h Code Status -Level I, FULL RESUSCITATION STATUS Continued [facility] stay due to: multiple IV medications needed
[2017-09-21] MEDS: ETOPOSIDE IV SCH (10:56)
[2017-09-21] MEDS: CISPLATIN IV SCH (12:20)
--- NOTE | 2017-09-21 12:57 | Hematology/Oncology Prog Note ---
Hematology/Onc Progress Note Date of Service Sep 21, 2017. Diagnoses Nonseminomatous testicular carcinoma Medications Medications Administered Medications (Trade) Dose Ordered Sig/Maddie Route Start Time Stop Time Status Last Admin Dose Admin Enoxaparin Sodium (Lovenox Inj) 40 mg HS SQ 09/18/17 21:00 10/18/17 20:59 09/19/17 19:38 40 MG Amphetamine Aspartate/ Amphetam Sulf (Amphetamine Aspartate/Amph Sulf/Dextramphet) 20 mg BID@0800,1200 PO 09/19/17 08:00 10/03/17 07:59 09/21/17 12:23 20 MG Insulin Aspart (novoLOG ASPART) AC SQ 09/18/17 16:30 09/18/17 16:30 DC 09/18/17 14:33 12 UNITS Multivitamins (Multivitamin Tab) 1 tab QPM PO 09/18/17 21:00 10/18/17 20:59 09/20/17 22:19 1 TAB Oxycodone HCl (Roxicodone Immediate Rel Tab) 10 mg Q4H PRN PO 09/18/17 13:15 10/02/17 13:14 09/21/17 12:24 10 MG Potassium/ Phosphorus/Sodium (Phospha 250 Neutral 155-852-130 Mg) 1 tab QID PO 09/18/17 17:00 10/18/17 16:59 09/21/17 12:24 1 TAB Magnesium Oxide (Mag-Ox Tab) 400 mg QAM PO 09/19/17 08:00 10/19/17 07:59 09/21/17 08:05 400 MG Polyethylene (Miralax Powder Packet) 34 gm ONE ONCE PO 09/18/17 13:15 09/18/17 13:21 DC 09/18/17 14:34 34 GM Docusate Sodium (coLACE CAP) 100 mg BID PO 09/18/17 20:00 10/18/17 19:59 09/21/17 08:04 100 MG Palonosetron 0.25 mg/Syringe 5 ml @ 10 mls/min TODAY@1530 IV 09/18/17 15:30 09/18/17 23:59 DC 09/18/17 16:21 10 MLS/MIN Dexamethasone Sodium Phosphate 10 mg/Sodium Chloride 52.5 ml @ 157.5 mls/ hr TODAY@1530 IV 09/18/17 15:30 09/18/17 23:59 DC 09/18/17 16:28 157.5 MLS/HR Fosaprepitant 150 mg/Sodium Chloride 150 ml @ 300 mls/hr TODAY@1530 IV 09/18/17 15:30 09/18/17 23:59 DC 09/18/17 17:14 300 MLS/HR Etoposide 180 mg/ Sodium Chloride 509 ml @ 509 mls/hr TODAY@1600 IV 09/18/17 16:00 09/18/17 16:00 DC 09/18/17 18:05 509 MLS/HR Cisplatin 36 mg/ Sodium Chloride 286 ml @ 286 mls/hr TODAY@1700 IV 09/18/17 17:00 09/18/17 23:59 DC 09/18/17 19:51 286 MLS/HR Cisplatin 36 mg/ Sodium Chloride 286 ml @ 286 mls/hr TODAY@1300 IV 09/19/17 13:00 09/19/17 23:59 DC 09/19/17 14:23 286 MLS/HR Cisplatin 36 mg/ Sodium Chloride 286 ml @ 286 mls/hr DAILY@1100 IV 09/20/17 11:00 09/22/17 23:59 09/21/17 12:20 286 MLS/HR Sodium Chloride 1,000 ml @ 1,000 mls/hr TODAY@1600,1800 IV 09/18/17 16:00 09/18/17 23:59 DC 09/18/17 21:14 1,000 MLS/HR Sodium Chloride 1,000 ml @ 1,000 mls/hr TODAY@1200,1400 IV 09/19/17 12:00 09/19/17 23:59 DC 09/19/17 14:00 1,000 MLS/HR Sodium Chloride 1,000 ml @ 1,000 mls/hr BID@1000,1200 IV 09/20/17 10:00 09/22/17 23:59 09/21/17 09:20 1,000 MLS/HR Etoposide 180 mg/ Sodium Chloride 509 ml @ 509 mls/hr TODAY@1600 IV 09/18/17 16:00 09/18/17 23:59 DC 09/18/17 18:08 509 MLS/HR Etoposide 180 mg/ Sodium Chloride 509 ml @ 509 mls/hr DAILY@1000 IV 09/20/17 10:00 09/22/17 23:59 09/21/17 10:56 509 MLS/HR Etoposide 180 mg/ Sodium Chloride 509 ml @ 509 mls/hr TODAY@1200 IV 09/19/17 12:00 09/19/17 23:59 DC 09/19/17 13:06 509 MLS/HR Dexamethasone Sodium Phosphate 10 mg/Sodium Chloride 52.5 ml @ 157.5 mls/ hr TODAY@1130 IV 09/19/17 11:30 09/19/17 23:59 DC 09/19/17 12:19 157.5 MLS/HR Dexamethasone Sodium Phosphate 10 mg/Sodium Chloride 52.5 ml @ 157.5 mls/ hr DAILY@0930 IV 09/20/17 09:30 09/22/17 23:59 09/21/17 10:11 157.5 MLS/HR Insulin Aspart (novoLOG ASPART) ACHS SQ 09/18/17 16:30 09/21/17 09:52 DC 09/20/17 21:53 9 UNITS Insulin Aspart (novoLOG ASPART) TODAY@0200 SQ 09/19/17 02:00 09/19/17 02:01 DC 09/19/17 02:12 2 UNITS Ketorolac Tromethamine (Toradol Inj) 15 mg Q6H PRN IV 09/18/17 17:45 09/23/17 17:44 09/19/17 14:49 15 MG Insulin Glargine (Lantus Solostar Pen) 18 units HS SQ 09/18/17 21:00 10/18/17 20:59 09/20/17 21:54 18 UNITS Morphine Sulfate (MoRPHine SULFATE INJ) 4 mg Q4H PRN IV 09/18/17 21:30 10/02/17 21:29 09/21/17 10:27 4 MG Morphine Sulfate (MoRPHine SULFATE INJ) 4 mg STK-MED ONCE .ROUTE 09/18/17 21:28 09/18/17 21:29 DC 09/18/17 21:31 4 MG Heparin Sodium (Porcine) (Heparin 100 Unit/ml 5ml Flush) 5 ml PRN PRN IV 09/18/17 22:15 10/18/17 22:14 09/21/17 04:47 5 ML Nicotine (Nicoderm Cq 14MG Patch) 1 patch QAM TD 09/19/17 09:45 09/19/17 12:56 DC 09/19/17 10:18 1 PATCH Lorazepam (Ativan Inj) 2 mg STK-MED ONCE .ROUTE 09/19/17 10:24 09/19/17 10:25 DC 09/19/17 10:25 0.5 MG Polyethylene (Miralax Powder Packet) 17 gm DAILY PO 09/20/17 08:00 10/20/17 07:59 09/21/17 12:45 17 GM Lorazepam (Ativan Tab) 0.5 mg Q8 PRN PO 09/19/17 11:00 10/19/17 10:59 09/19/17 20:33 0.5 MG Nicotine (Nicoderm Cq 21MG Patch) 1 patch QAM TD 09/20/17 08:00 10/20/17 07:59 09/21/17 08:05 1 PATCH Miscellaneous (Remove Nicoderm Patch) 1 ea HS N/A 09/19/17 21:00 10/19/17 20:59 09/20/17 21:00 1 EA Insulin Aspart (novoLOG ASPART) SLIDING SCALE 0200 SQ 09/20/17 02:00 09/20/17 02:01 DC 09/20/17 02:11 1 UNITS Insulin Human Regular 5 units/ Syringe 5 ml @ 30 mls/min TODAY@1730 IV 09/20/17 17:30 09/20/17 17:31 DC 09/20/17 18:32 30 MLS/MIN Insulin Human Regular 5 units/ Syringe 5 ml @ 30 mls/min TODAY@2130 IV 09/20/17 21:30 09/20/17 21:31 DC 09/20/17 21:54 30 MLS/MIN Insulin Aspart (novoLOG ASPART) SLIDING SCALE ACHS@1100,1630 SQ 09/21/17 11:00 10/21/17 10:59 09/21/17 12:48 7 UNITS Subjective Tolerated day number 3 of cis-[place] and etoposide quite well. He continues to have a negative review of systems Review of Systems: Constitutional: Negative for night sweats, or fever Eyes: Negative for event change of vision ENT: Negative for epistaxis, nasal discharge, sore throat, or deafness Cardiovascular: Negative for chest pain, palpitations, dizziness, diaphoresis Respiratory: Negative for new shortness of breath,hemoptysis, or purulent cough Gastrointestinal: Negative for diarrhea, hematemesis, melena, nausea, vomiting , or dyspepsia Integumentary (skin): Negative for rash or jaundice discoloration Neurological: Negative for weakness, seizure activity, headache, or dizziness Lymphatic/Hematologic: Negative for petechiae, bleeding or new adenopathy Musculoskeletal: Negative for new joint or back pain Allergic/Immunologic: Negative for unusual rash or pruritis. Vital Signs Vital Signs Past 12 Hours Date Time Temp Pulse Resp B/P (MAP) Pulse Ox O2 Delivery O2 Flow Rate FiO2 09/21/17 12:50 36.6 78 18 122/82 (95) 99 Room Air 09/21/17 11:33 36.6 70 16 124/75 (91) 99 Room Air 09/21/17 11:30 36.7 75 18 129/68 (88) 100 Room Air 09/21/17 10:50 36.7 89 18 112/72 (85) 100 Room Air 09/21/17 08:00 98 Room Air 09/21/17 07:04 36.4 83 17 102/59 (73) 98 Room Air 09/21/17 04:17 36.4 68 18 96/60 (72) 100 Room Air Physical Exam Constitutional: vitals are stable. Eyes: Eyes are SOM EOMI without conjuctival erythema or icterus. ENT: External examination was negative for masses. Neck: Negative for masses or palpable thyromegaly Respiratory: Lung sounds were generally clear bilaterally Cardiovascular: Heart was RRR without significant murmur, gallops aoe rubs Gastrointestinal: No palpable hepatic or splenomegaly. The abdomen was soft with normal bowel sounds. Lymphatic system: there was no palpable peripheral lymphadenopathy Musculoskeletal System: The musculoskeletal system seemed concordant with age. Skin: The skin was negative for jaundice. Neurologic exam: The exam was negative for any focal findings. Deep tendon reflexes were equal and symmetrical. Psychiatric exam: Was essentially negative with normal mood and effect. Extremities: Negative for edema or erythema Laboratory Last 24 Hours Test 09/20/17 16:40 09/20/17 16:42 09/20/17 20:47 09/21/17 01:52 Bedside Glucose 439 mg/dl 410 mg/dl 421 mg/dl 94 mg/dl Test 09/21/17 04:47 09/21/17 07:50 09/21/17 08:07 09/21/17 11:56 White Blood Count 6.32 K/uL Red Blood Count 3.73 M/uL Hemoglobin 10.7 g/dL Hematocrit 31.5 % Mean Corpuscular Volume 84.5 fL Mean Corpuscular Hemoglobin 28.7 pg Mean Corpuscular Hemoglobin Concent 34.0 g/dl RDW Standard Deviation 37.9 fL RDW Coefficient of Variation 12.3 % Platelet Count 353 K/uL Mean Platelet Volume 9.5 fL Sodium Level 138 mmol/L Potassium Level 3.8 mmol/L Chloride Level 103 mmol/L Carbon Dioxide Level 29 mmol/L Anion Gap 7.0 mmol/L Blood Urea Nitrogen 12 mg/dl Creatinine 0.44 mg/dl Est Creatinine Clear Calc Drug Dose 235.6 ml/min Estimated GFR () > 150.0 Estimated GFR (Non- > 150.0 BUN/Creatinine Ratio 26.5 Random Glucose 57 mg/dl Calcium Level 8.3 mg/dl Bedside Glucose 57 mg/dl 98 mg/dl 126 mg/dl Assessment & Plan Nonseminomatous testicular carcinoma being treated with cis-[place] and etoposide. He is tolerating the therapy well. This will be day #4 of cisplatin and etoposide. I would anticipate discharge to be late tomorrow afternoon. He will have a follow-up in our clinic in 3 weeks in anticipation of cycle #2 of 4 planned cycles
[2017-09-21] MEDS: ONDANSETRON INJ 2 MG/ML 2 ML VIAL IV PRN ×2 (17:06→23:43)
[2017-09-21] MEDS: LORAZEPAM 0.5 MG TAB PO PRN (18:23)
[2017-09-21] MEDS: ENOXAPARIN 40 MG/0.4 ML SYR SQ SCH ×2 (21:00→21:05)
[2017-09-21] MEDS: MULTIVITAMIN TAB PO SCH (21:04)
[2017-09-21] MEDS: INSULIN GLARGINE SOLOSTAR 100 UNITS/ML 3 ML PEN SQ SCH (21:11)
[2017-09-22] VITALS (9 sets, daily range): BP systolic 97–122; BP diastolic 57–75; PULSE 63–82; TEMP 36.4–36.9; O2SAT 95–100; Ht 182.9 cm; Wt 61.9 kg
[2017-09-22] MEDS ORDERED: INSULIN ASPART 100 UNITS/ML 3 ML PEN SQ SCH ×2 (02:00→06:30)
[2017-09-22] MEDS ORDERED: INSULIN HUMAN REGULAR PER UNIT 6 UNITS in SYRINGE 5.94 ML IV SCH (02:30)
[2017-09-22] MEDS: PROCHLORPERAZINE INJ 5 MG in SYRINGE 4 ML IV PRN ×2 (02:36→17:53)
[2017-09-22 06:31] LABS: HEMATOCRIT 33.3 % (42-52); HEMOGLOBIN 11.8 g/dL (14.0-18.0); MEAN CELL VOLUME 82.6 fL (80-100); MEAN CORPUSCULAR HEMOGLOBIN 29.3 pg (25-34); MEAN CORPUSCULAR HGB CONC 35.4 g/dl (32-36); MEAN PLATELET VOLUME 9.5 fL (7.4-10.4); PLATELET COUNT 356 K/uL (130-400); RED CELL DISTRIBUTION WIDTH CV 12.1 % (11.5-14.5); RED CELL DISTRIBUTION WIDTH SD 36.8 fL (36.4-46.3); WHITE BLOOD COUNT 6.03 K/uL (4.8-10.8)
[2017-09-22] MEDS: AMPHETAMINE ASP/SULF/DEXTRAMPH 20 MG TAB PO SCH ×2 (08:00→12:00)
[2017-09-22] MEDS: POT PHOSPHATE MONOBASIC W/ SOD TAB PO SCH ×4 (08:00→21:05)
[2017-09-22] MEDS: POLYETHYLENE (MIRALAX) 17 GM PACK PO SCH (08:00)
[2017-09-22 08:13] LABS: BLOOD UREA NITROGEN 17 mg/dl (7-18); CALCIUM 8.8 mg/dl (8.5-10.1); CARBON DIOXIDE 23 mmol/L (21-32); CREATININE 0.66 mg/dl (0.60-1.40); GLUCOSE 454 mg/dl (70-99); POTASSIUM 4.4 mmol/L (3.5-5.1); SODIUM 131 mmol/L (136-145)
[2017-09-22] MEDS: NICOTINE 21 MG/24 HR TDSY TD SCH (08:53)
[2017-09-22] MEDS ORDERED: LORAZEPAM 2 MG/ML 1 ML VIAL ONE (09:07)
[2017-09-22] MEDS: SODIUM CHLORIDE 0.9% 1000ML 1,000 ML IV SCH ×2 (09:14→12:00)
[2017-09-22] MEDS ORDERED: INSULIN PROTOCOL GOAL RANGE ONE (09:15)
[2017-09-22] MEDS ORDERED: INSULIN IV INFUSION PROTOCOL STA (09:15)
[2017-09-22] MEDS ORDERED: NURSING VERBAL MED ORDER ONE ×2 (09:15→11:45)
[2017-09-22] MEDS ORDERED: GLUCOSE 10 TABS/TUBE PO PRN (09:15)
[2017-09-22] MEDS ORDERED: GLUCAGON FOR INJ 1 MG VIAL SQ PRN (09:15)
[2017-09-22] MEDS ORDERED: MODERATE STRESS LEVEL ONE (09:15)
[2017-09-22] MEDS ORDERED: DEXTROSE 50% 50 ML SYR IV PRN (09:15)
[2017-09-22] MEDS ORDERED: GLUCOSE 40% GEL 15 GM TUBE PO PRN (09:15)
[2017-09-22] MEDS ORDERED: INSULIN HUMAN REGULAR IV BOLUS 1.5 UNIT in SYRINGE 0 ML IV SCH (09:15)
[2017-09-22] MEDS: INSULIN REGULAR 250 UNITS in SODIUM CHLORIDE 0.9% 250ML 250 ML IV SCH ×7 (09:42→20:02)
[2017-09-22] MEDS: SODIUM CHLORIDE 0.9% IV SCH ×3 (10:24→12:52)
[2017-09-22] MEDS: DEXAMETHASONE IV SCH (10:24)
[2017-09-22] MEDS: ONDANSETRON INJ 2 MG/ML 2 ML VIAL IV PRN (10:25)
[2017-09-22] MEDS ORDERED: NovoLIN-N (NPH) PER UNIT CHARGE SQ SCH (11:00)
[2017-09-22] MEDS: ETOPOSIDE IV SCH (11:13)
--- NOTE | 2017-09-22 12:19 | Hematology/Oncology Prog Note ---
Hematology/Onc Progress Note Date of Service Sep 22, 2017. Diagnoses Nonseminomatous testicular carcinoma Medications Medications Administered Medications (Trade) Dose Ordered Sig/Maddie Route Start Time Stop Time Status Last Admin Dose Admin Enoxaparin Sodium (Lovenox Inj) 40 mg HS SQ 09/18/17 21:00 10/18/17 20:59 09/19/17 19:38 40 MG Ondansetron HCl (Zofran Inj) 4 mg Q6H PRN IV 09/18/17 13:00 10/18/17 12:59 09/22/17 10:25 4 MG Amphetamine Aspartate/ Amphetam Sulf (Amphetamine Aspartate/Amph Sulf/Dextramphet) 20 mg BID@0800,1200 PO 09/19/17 08:00 10/03/17 07:59 09/21/17 12:23 20 MG Insulin Aspart (novoLOG ASPART) AC SQ 09/18/17 16:30 09/18/17 16:30 DC 09/18/17 14:33 12 UNITS Multivitamins (Multivitamin Tab) 1 tab QPM PO 09/18/17 21:00 10/18/17 20:59 09/21/17 21:04 1 TAB Oxycodone HCl (Roxicodone Immediate Rel Tab) 10 mg Q4H PRN PO 09/18/17 13:15 10/02/17 13:14 09/21/17 17:52 10 MG Potassium/ Phosphorus/Sodium (Phospha 250 Neutral 155-852-130 Mg) 1 tab QID PO 09/18/17 17:00 10/18/17 16:59 09/21/17 21:03 1 TAB Magnesium Oxide (Mag-Ox Tab) 400 mg QAM PO 09/19/17 08:00 10/19/17 07:59 09/21/17 08:05 400 MG Polyethylene (Miralax Powder Packet) 34 gm ONE ONCE PO 09/18/17 13:15 09/18/17 13:21 DC 09/18/17 14:34 34 GM Docusate Sodium (coLACE CAP) 100 mg BID PO 09/18/17 20:00 10/18/17 19:59 09/21/17 21:04 100 MG Palonosetron 0.25 mg/Syringe 5 ml @ 10 mls/min TODAY@1530 IV 09/18/17 15:30 09/18/17 23:59 DC 09/18/17 16:21 10 MLS/MIN Dexamethasone Sodium Phosphate 10 mg/Sodium Chloride 52.5 ml @ 157.5 mls/ hr TODAY@1530 IV 09/18/17 15:30 09/18/17 23:59 DC 09/18/17 16:28 157.5 MLS/HR Fosaprepitant 150 mg/Sodium Chloride 150 ml @ 300 mls/hr TODAY@1530 IV 09/18/17 15:30 09/18/17 23:59 DC 09/18/17 17:14 300 MLS/HR Etoposide 180 mg/ Sodium Chloride 509 ml @ 509 mls/hr TODAY@1600 IV 09/18/17 16:00 09/18/17 16:00 DC 09/18/17 18:05 509 MLS/HR Cisplatin 36 mg/ Sodium Chloride 286 ml @ 286 mls/hr TODAY@1700 IV 09/18/17 17:00 09/18/17 23:59 DC 09/18/17 19:51 286 MLS/HR Cisplatin 36 mg/ Sodium Chloride 286 ml @ 286 mls/hr TODAY@1300 IV 09/19/17 13:00 09/19/17 23:59 DC 09/19/17 14:23 286 MLS/HR Cisplatin 36 mg/ Sodium Chloride 286 ml @ 286 mls/hr DAILY@1100 IV 09/20/17 11:00 09/22/17 23:59 09/21/17 12:20 286 MLS/HR Sodium Chloride 1,000 ml @ 1,000 mls/hr TODAY@1600,1800 IV 09/18/17 16:00 09/18/17 23:59 DC 09/18/17 21:14 1,000 MLS/HR Sodium Chloride 1,000 ml @ 1,000 mls/hr TODAY@1200,1400 IV 09/19/17 12:00 09/19/17 23:59 DC 09/19/17 14:00 1,000 MLS/HR Sodium Chloride 1,000 ml @ 1,000 mls/hr BID@1000,1200 IV 09/20/17 10:00 09/22/17 23:59 09/22/17 09:14 1,000 MLS/HR Etoposide 180 mg/ Sodium Chloride 509 ml @ 509 mls/hr TODAY@1600 IV 09/18/17 16:00 1/17/18 23:59 DC 09/18/17 18:08 509 MLS/HR Etoposide 180 mg/ Sodium Chloride 509 ml @ 509 mls/hr DAILY@1000 IV 09/20/17 10:00 09/22/17 23:59 09/22/17 11:13 509 MLS/HR Etoposide 180 mg/ Sodium Chloride 509 ml @ 509 mls/hr TODAY@1200 IV 09/19/17 12:00 09/19/17 23:59 DC 09/19/17 13:06 509 MLS/HR Dexamethasone Sodium Phosphate 10 mg/Sodium Chloride 52.5 ml @ 157.5 mls/ hr TODAY@1130 IV 09/19/17 11:30 09/19/17 23:59 DC 09/19/17 12:19 157.5 MLS/HR Dexamethasone Sodium Phosphate 10 mg/Sodium Chloride 52.5 ml @ 157.5 mls/ hr DAILY@0930 IV 09/20/17 09:30 09/22/17 23:59 09/22/17 10:24 157.5 MLS/HR Insulin Aspart (novoLOG ASPART) ACHS SQ 09/18/17 16:30 09/21/17 09:52 DC 09/20/17 21:53 9 UNITS Insulin Aspart (novoLOG ASPART) TODAY@0200 SQ 09/19/17 02:00 09/19/17 02:01 DC 09/19/17 02:12 2 UNITS Ketorolac Tromethamine (Toradol Inj) 15 mg Q6H PRN IV 09/18/17 17:45 09/23/17 17:44 09/19/17 14:49 15 MG Insulin Glargine (Lantus Solostar Pen) 18 units HS SQ 09/18/17 21:00 10/18/17 20:59 09/21/17 21:11 18 UNITS Morphine Sulfate (MoRPHine SULFATE INJ) 4 mg Q4H PRN IV 09/18/17 21:30 10/02/17 21:29 09/21/17 20:59 4 MG Morphine Sulfate (MoRPHine SULFATE INJ) 4 mg STK-MED ONCE .ROUTE 09/18/17 21:28 09/18/17 21:29 DC 09/18/17 21:31 4 MG Heparin Sodium (Porcine) (Heparin 100 Unit/ml 5ml Flush) 5 ml PRN PRN IV 09/18/17 22:15 10/18/17 22:14 09/22/17 05:36 5 ML Nicotine (Nicoderm Cq 14MG Patch) 1 patch QAM TD 09/19/17 09:45 09/19/17 12:56 DC 09/19/17 10:18 1 PATCH Lorazepam (Ativan Inj) 2 mg STK-MED ONCE .ROUTE 09/19/17 10:24 09/19/17 10:25 DC 09/19/17 10:25 0.5 MG Polyethylene (Miralax Powder Packet) 17 gm DAILY PO 09/20/17 08:00 10/20/17 07:59 09/21/17 12:45 17 GM Lorazepam (Ativan Tab) 0.5 mg Q8 PRN PO 09/19/17 11:00 10/19/17 10:59 09/21/17 18:23 0.5 MG Nicotine (Nicoderm Cq 21MG Patch) 1 patch QAM TD 09/20/17 08:00 10/20/17 07:59 09/22/17 08:53 1 PATCH Miscellaneous (Remove Nicoderm Patch) 1 ea HS N/A 09/19/17 21:00 10/19/17 20:59 09/21/17 21:00 1 EA Insulin Aspart (novoLOG ASPART) SLIDING SCALE 0200 SQ 09/20/17 02:00 09/20/17 02:01 DC 09/20/17 02:11 1 UNITS Insulin Human Regular 5 units/ Syringe 5 ml @ 30 mls/min TODAY@1730 IV 09/20/17 17:30 09/20/17 17:31 DC 09/20/17 18:32 30 MLS/MIN Insulin Human Regular 5 units/ Syringe 5 ml @ 30 mls/min TODAY@2130 IV 09/20/17 21:30 09/20/17 21:31 DC 09/20/17 21:54 30 MLS/MIN Insulin Aspart (novoLOG ASPART) SLIDING SCALE ACHS@1100,1630 SQ 09/21/17 11:00 09/22/17 09:12 DC 09/21/17 18:20 14 UNITS Insulin Aspart (novoLOG ASPART) SLIDING SCALE HS SQ 09/21/17 21:00 09/22/17 09:12 DC 09/21/17 21:10 6 UNITS Insulin Aspart (novoLOG ASPART) SLIDING SCALE ACHS@0630 SQ 09/22/17 06:30 09/22/17 09:12 DC 09/22/17 08:55 10 UNITS Insulin Aspart (novoLOG ASPART) SLIDING SCALE 0200 SQ 09/22/17 02:00 09/22/17 09:12 DC 09/22/17 02:41 10 UNITS Prochlorperazine Edisylate 5 mg/ Syringe 5 ml @ 5 mls/min Q6H PRN IV 09/22/17 01:45 10/22/17 01:44 09/22/17 02:36 5 MLS/MIN Insulin Human Regular 6 units/ Syringe 6 ml @ 30 mls/min TODAY@0230 IV 09/22/17 02:30 09/22/17 02:31 DC 09/22/17 02:40 30 MLS/MIN Insulin Human Regular 1.5 unit/ Syringe 1.5 ml @ 3 mls/min TODAY@0915 IV 09/22/17 09:15 09/22/17 12:00 DC 09/22/17 09:42 3 MLS/MIN Insulin Human Regular 250 units/ Sodium Chloride 252.5 ml @ 0 mls/hr Q24H IV 09/22/17 09:15 10/22/17 09:14 09/22/17 10:45 1.8 MLS/HR Subjective Had a rough evening last night. Apparently had quite a bit of nausea and vomiting. I was notified this morning that he may not want to take his final day of therapy however chemotherapy was ongoing when I arrived. He currently has received a dose of Ativan recently and is somnolent but easily awakened. Review of Systems: Not able to get an accurate review of systems however it has been reported in confirmed that he had quite a bit of nausea and emesis during the past evening. Vital Signs Vital Signs Past 12 Hours Date Time Temp Pulse Resp B/P (MAP) Pulse Ox O2 Delivery O2 Flow Rate FiO2 09/22/17 11:10 36.6 71 18 122/75 (91) 95 Room Air 09/22/17 08:00 95 Room Air 09/22/17 07:40 36.4 72 18 118/66 (83) 97 Room Air 09/22/17 04:42 80 18 97/59 (72) 97 Room Air Physical Exam Constitutional: vitals are stable. Eyes: Eyes are SOM EOMI without conjuctival erythema or icterus. ENT: External examination was negative for masses. Neck: Negative for masses or palpable thyromegaly Respiratory: Lung sounds were generally clear bilaterally Cardiovascular: Heart was RRR without significant murmur, gallops aoe rubs Gastrointestinal: No palpable hepatic or splenomegaly. The abdomen was soft with normal bowel sounds. Lymphatic system: there was no palpable peripheral lymphadenopathy Musculoskeletal System: The musculoskeletal system seemed concordant with age. Skin: The skin was negative for jaundice. Extremities: negative for edema Laboratory Last 24 Hours Test 09/21/17 16:37 09/21/17 20:24 09/22/17 02:20 09/22/17 05:32 Bedside Glucose 370 mg/dl 386 mg/dl 439 mg/dl White Blood Count 6.03 K/uL Red Blood Count 4.03 M/uL Hemoglobin 11.8 g/dL Hematocrit 33.3 % Mean Corpuscular Volume 82.6 fL Mean Corpuscular Hemoglobin 29.3 pg Mean Corpuscular Hemoglobin Concent 35.4 g/dl RDW Standard Deviation 36.8 fL RDW Coefficient of Variation 12.1 % Platelet Count 356 K/uL Mean Platelet Volume 9.5 fL Test 09/22/17 07:34 09/22/17 07:44 09/22/17 10:48 09/22/17 11:48 Sodium Level 131 mmol/L Potassium Level 4.4 mmol/L Chloride Level 96 mmol/L Carbon Dioxide Level 23 mmol/L Anion Gap 12.0 mmol/L Blood Urea Nitrogen 17 mg/dl Creatinine 0.66 mg/dl Est Creatinine Clear Calc Drug Dose 149.8 ml/min Estimated GFR () > 150.0 Estimated GFR (Non- 134.4 BUN/Creatinine Ratio 25.9 Random Glucose 454 mg/dl Calcium Level 8.8 mg/dl Magnesium Level 1.9 mg/dl Beta-Hydroxybutyric Acid 23.00 mg/dL Bedside Glucose 424 mg/dl 340 mg/dl 315 mg/dl Assessment & Plan Nonseminomatous testicular carcinoma being treated with cis-oneida and etoposide. Quite a bit of nausea and vomiting during the night. We will place him on a regular schedule of IV Zofran today along with a every 12 hours dose of Ativan and Reglan will be added to his regimen. I have to wonder whether there is an element of gastroparesis with his diabetes. His appetite is been quite good over the past few days. We will increase his antiemeisis program through today. I will be in touch with our clinic to decide about Neulasta for tomorrow. The nurses have told me that he would probably like to go home after his chemotherapy today. His blood sugar has been an issue. From the chemotherapy standpoint he probably could go home after his chemotherapy today but however the hyperglycemia may keep him in the hospital for at least another evening. At discharge prescriptions were written for Zofran 8 mg to use every 6-8 hours as needed for nausea and for the next few days at least Reglan 10 mg every 6 hours or before meals and at bedtime.
[2017-09-22] MEDS: ONDANSETRON INJ 8 MG in DEXTROSE 5% 50ML 50 ML IV SCH ×2 (12:26→22:10)
[2017-09-22] MEDS: CISPLATIN IV SCH (12:52)
[2017-09-22] MEDS: INSULIN ASPART 100 UNITS/ML 3 ML PEN SC SCH ×3 (13:00→21:00)
[2017-09-22] MEDS: OXYCODONE HCL IR 5 MG TAB (IMMEDIATE RELEASE) PO PRN ×2 (13:07→16:55)
[2017-09-22] MEDS: MAGNESIUM OXIDE 400 MG TAB PO SCH (13:08)
[2017-09-22] MEDS: DOCUSATE SODIUM 100 MG CAP PO SCH ×2 (13:08→21:04)
[2017-09-22] MEDS: METOCLOPRAMIDE HCL INJ 5 MG/ML 2 ML VIAL IV SCH ×2 (13:11→18:04)
[2017-09-22] MEDS ORDERED: ONDANSETRON 8 MG/54 ML D5W IV ONE (14:00)
--- NOTE | 2017-09-22 14:40 | Pharmacy Progress Note ---
Glycemic Control Progress Note Date of Service Sep 22, 2017. Scope Glycemic Pharmacist consulted for glycemic control to write orders per [facility] inpatient glycemic control protocol. Objective Accuchecks BSG (last 24hrs): Test 09/21/17 16:37 09/21/17 20:24 09/22/17 02:20 09/22/17 07:34 Bedside Glucose 370 mg/dl (70-99) 386 mg/dl (70-99) 439 mg/dl (70-99) Random Glucose 454 mg/dl (70-99) Test 09/22/17 07:44 09/22/17 10:48 09/22/17 11:48 09/22/17 12:44 Bedside Glucose 424 mg/dl (70-99) 340 mg/dl (70-99) 315 mg/dl (70-99) 248 mg/dl (70-99) Test 09/22/17 13:50 Bedside Glucose 232 mg/dl (70-99) HbA1c: Test 09/18/17 13:02 Hemoglobin A1c 9.5 % (4.5-5.6) H Recent Pertinent Medications The patient is currently receiving: * Basal insulin: Lantus 18 units every 24 hours - dosed at bedtime * Correctional Insulin: Novolog Correction per scale ACHS Goal Range: Low 110 mg/dL - High 140 mg/dL Correction Factor: 35 mg/dL/unit w/ breakfast; 30mg/dL /unit with lunch + dinner; 45mg/dL/unit at bedtime * Prandial insulin: Per carb ratio of 1 unit per 10 grams CHO consumed w / breakfast, 1unit per 9gm CHO w/ lunch and dinner, no CR at bedtime Outpatient Anti-Diabetic Meds Lantus 21 units qPM plus Novolog CR of 1 unit: 8 grams Assessment & Plan ASSESSMENT: 09/22/17 * Patient's glycemic control continues to be poor * He has been very difficult to manage with a SQ regimen and in light of difficulty experienced with this admission + chemo regimen, he would likely not be a good candidate for SQ management for future treatment cycles * BSGs have climbed steadily each evening into the 300-400's range secondary to dexamethasone pretreat for chemo. He also experience hypoglycemia from excessive correction for severe hyperglycemia. * This AM his BSGs are in the 400's, his Na is dropping, AG is on the rise and serum ketones are elevated, leading me to believe he is beginning to go into DKA. In addition he is suffering from NV from the current chemo regimen making treatment with SQ even more difficult. * Case was discussed with hospitalist and plan is to place him on an insulin drip at this time however continue his home basal regimen to make transition back to SQ easier. * Hopefully he can be transitioned back to his home basal/bolus regimen tomorrow AM or overnight if BSG's permit. PLAN FOR INPATIENT GLYCEMIC CONTROL: * Starting IV insulin infusion per moderate stress protocol (moderate stress chosen due to t1dm and less insulin resistance) * Goal Range 120 - 220 mg/dl * Basal insulin * Lantus 18 units SQ HS (home dose) * Bolus insulin * NovoLog per scale ACHS * Nutritional / Prandial insulin per carb ratio calculated by insulin adjustment calculator * Resume CR of 1 unit per 10gm CHO if transitioned off the drip and tolerating diet * Please note that the plan above was derived based on current level of insulin resistance and hospital stress. These recommendations are appropriate for inpatient admission only. Plan of care upon discharge will need to be reassessed to avoid potential outpatient hypo/hyperglycemia. Thank you.
[2017-09-22] MEDS: LORAZEPAM 0.5 MG TAB PO PRN (17:04)
--- NOTE | 2017-09-22 17:12 | Progress Note ---
Subjective Date of Service: Sep 22, 2017. Subjective Pt evaluation today including: conversation w/ patient, conversation w/ family , physical exam, chart review, lab review, review of studies, conversation w/ energy sales consultant, review of inpatient medication list Had a rough night last night, with nausea vomiting, and blood glucose was more than 400, insulin drip was started Problem List Medical Problems: (1) Dehydration Status: Acute (2) DKA (diabetic ketoacidoses) Status: Acute (3) DKA (diabetic ketoacidosis) Status: Acute (4) Hyperglycemia Status: Acute (5) Ileus Status: Acute (6) Lower abdominal pain Status: Acute (7) Nausea & vomiting Status: Acute (8) Testicular/scrotal pain Status: Acute (9) Uncontrolled diabetes mellitus Status: Acute Review of Systems Constitutional: + problem reported (anxious,), No fever, No chills, No sweats, No weight loss, No weakness, No fatigue Eyes: No worsening of vision, No eye pain, No redness, No discharge, No diplopia ENT: No hearing loss, No unusual epistaxis, No nasal symptoms, No sore throat, No tinnitus, No dental problems, No trouble swallowing Respiratory: No cough, No sputum, No wheezing, No shortness of breath, No dyspnea on exertion, No dyspnea at rest, No hemoptysis Cardiac: No chest pain, No orthopnea, No PND, No edema, No claudication, No palpitations Abdomen: + nausea, + vomiting, No pain, No diarrhea, No constipation Musculoskeletal: No joint pain, No muscle pain, No swelling, No calf pain Male : No dysuria, No urinary frequency, No incontinence, No nocturia more than once/night, No slowing stream, No hematuria Neurologic: No memory loss, No paralysis, No weakness, No numbness/tingling, No vertigo, No balance problems Psychiatric: No depression symptoms, No anhedonism, No anxiety, No insomnia, No substance abuse Heme: No abnormal bleeding/bruising, No clotting problems, No swollen lymph nodes, No night sweats Endo: No fatigue, No excessive thirst, No excessive urination Skin: No rash, No itch, No new/changing skin lesions, No color change, No bleeding Objective Vital Signs Date Time Temp Pulse Resp B/P (MAP) Pulse Ox O2 Delivery O2 Flow Rate FiO2 09/22/17 16:00 97 Room Air 09/22/17 15:42 36.6 80 16 111/74 (86) 100 Room Air 09/22/17 13:15 36.7 82 16 115/72 (86) 97 Room Air 09/22/17 12:34 36.6 63 16 110/68 (82) 97 Room Air 09/22/17 11:10 36.6 71 18 122/75 (91) 95 Room Air 09/22/17 08:00 95 Room Air 09/22/17 07:40 36.4 72 18 118/66 (83) 97 Room Air 09/22/17 04:42 80 18 97/59 (72) 97 Room Air 09/22/17 00:00 Room Air 09/21/17 23:11 36.5 58 18 125/68 (87) 99 Room Air 09/21/17 20:08 36.5 106 20 122/81 (95) 98 Room Air 09/21/17 20:00 Room Air Physical Exam General Appearance: WD/WN, no apparent distress, + thin, + pertinent finding ( anxious) Eyes: normal inspection, PERRL, EOMI, sclerae normal ENT: normal ENT inspection, hearing grossly normal, pharynx normal Neck: supple, no adenopathy, thyroid normal, no JVD, no carotid bruits, trachea midline Respiratory/Chest: chest non-tender, normal breath sounds, no respiratory distress, no accessory muscle use, + decreased breath sounds Cardiovascular: regular rate, rhythm, no edema, no gallop, no JVD, no murmur Abdomen: normal bowel sounds, non tender, soft, no organomegaly, no pulsatile mass Extremities: normal range of motion, non-tender, normal inspection, no pedal edema, no calf tenderness, normal capillary refill, pelvis stable 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, no motor/sensory deficits, alert, normal mood/affect, oriented x 3 Skin: normal color, warm/dry, no rash Lymphatic: no adenopathy Laboratory Results Last 24 Hours Test 09/21/17 20:24 09/22/17 02:20 09/22/17 05:32 09/22/17 07:34 Bedside Glucose 386 mg/dl 439 mg/dl White Blood Count 6.03 K/uL Red Blood Count 4.03 M/uL Hemoglobin 11.8 g/dL Hematocrit 33.3 % Mean Corpuscular Volume 82.6 fL Mean Corpuscular Hemoglobin 29.3 pg Mean Corpuscular Hemoglobin Concent 35.4 g/dl RDW Standard Deviation 36.8 fL RDW Coefficient of Variation 12.1 % Platelet Count 356 K/uL Mean Platelet Volume 9.5 fL Sodium Level 131 mmol/L Potassium Level 4.4 mmol/L Chloride Level 96 mmol/L Carbon Dioxide Level 23 mmol/L Anion Gap 12.0 mmol/L Blood Urea Nitrogen 17 mg/dl Creatinine 0.66 mg/dl Est Creatinine Clear Calc Drug Dose 149.8 ml/min Estimated GFR () > 150.0 Estimated GFR (Non- 134.4 BUN/Creatinine Ratio 25.9 Random Glucose 454 mg/dl Calcium Level 8.8 mg/dl Magnesium Level 1.9 mg/dl Beta-Hydroxybutyric Acid 23.00 mg/dL Test 09/22/17 07:44 09/22/17 10:48 09/22/17 11:48 09/22/17 12:44 Bedside Glucose 424 mg/dl 340 mg/dl 315 mg/dl 248 mg/dl Test 09/22/17 13:50 09/22/17 14:51 09/22/17 15:48 09/22/17 16:44 Bedside Glucose 232 mg/dl 206 mg/dl 218 mg/dl 289 mg/dl Assessment and Plan 27 y/o male with Metastatic testicular cancer ( Nonseminomatous testicular carcinoma) receiving chemo, oncologist on the case, chemotherapy today finish up chemotherapy, however patient has an elevated blood glucose and nausea vomiting, therefore not able to be discharged to home Nausea vomiting nor eating, this is from chemotherapy, continue supportive care , IV fluid, Compazine, Zofran, and Ativan as needed for anxiety Uncontrolled DM type 1 with a significant elevated blood glucose more than 400 bmp checked no us no DKA, insulin drip started, insulin drip is going on, now is from 200 of hyperglycemia Pharmacy consulted Constipation, bowel regimen is ordered, continue current care ADHD--stable Hypomagnesemia, hypophosphatemia: Follow-up labs Tobacco abuse, Nicotine patch 21 mg, consult quit smoking Anxiety , is on Ativan 0.5 mg PO q8h prn DVT prophylaxis -Enoxaparin 40 mg SC q24h Today patient has several times threatening want to leave AMA, just want to go home, he is okay now Continued [facility] stay due to: multiple IV medications needed Discharge planning: home
[2017-09-22] MEDS ORDERED: METOCLOPRAMIDE HCL INJ 5 MG/ML 2 ML VIAL IV SCH (18:00)
[2017-09-22] MEDS ORDERED: LORAZEPAM 2 MG/ML 1 ML VIAL IV SCH (20:00)
[2017-09-22] MEDS: ENOXAPARIN 40 MG/0.4 ML SYR SQ SCH (21:00)
[2017-09-22] MEDS: MULTIVITAMIN TAB PO SCH (21:04)
[2017-09-22] MEDS: LORAZEPAM INJ 1 MG in SYRINGE 0.5 ML IV SCH (21:06)
[2017-09-22] MEDS: INSULIN GLARGINE SOLOSTAR 100 UNITS/ML 3 ML PEN SQ SCH (21:09)
[2017-09-23] MEDS: INSULIN REGULAR 250 UNITS in SODIUM CHLORIDE 0.9% 250ML 250 ML IV SCH ×4 (00:41→07:49)
[2017-09-23] MEDS: METOCLOPRAMIDE HCL INJ 5 MG/ML 2 ML VIAL IV SCH ×2 (00:46→05:54)
[2017-09-23 04:47] VITALS: BP 106/66; PULSE 73; TEMP 36.8; O2SAT 97
[2017-09-23] MEDS: MoRPHine SULFATE 4 MG/ML 1 ML CARP\\VIAL IV PRN (05:54)
[2017-09-23] MEDS: ONDANSETRON INJ 8 MG in DEXTROSE 5% 50ML 50 ML IV SCH (05:55)
[2017-09-23 06:00] LABS: BASO % 0.3 %; BASO ABS # 0.02 K/uL (0-0.2); EOS % 2.2 %; EOS ABS # 0.17 K/uL (0-0.5); HEMATOCRIT 33.8 % (42-52); IG# 0.01 K/uL (0.00-0.02); LYMPH % 27.6 %; MEAN CELL VOLUME 81.8 fL (80-100); MEAN CORPUSCULAR HEMOGLOBIN 29.1 pg (25-34); MEAN CORPUSCULAR HGB CONC 35.5 g/dl (32-36); MONO % 0.5 %; MONO ABS # 0.04 K/uL (0.11-0.59); NEUT % 69.3 %; NEUT ABS # 5.27 K/uL (1.4-6.5); PLATELET COUNT 359 K/uL (130-400); RED CELL DISTRIBUTION WIDTH CV 12.1 % (11.5-14.5); RED CELL DISTRIBUTION WIDTH SD 35.8 fL (36.4-46.3); WHITE BLOOD COUNT 7.61 K/uL (4.8-10.8)
[2017-09-23 06:35] LABS: BLOOD UREA NITROGEN 15 mg/dl (7-18); CALCIUM 8.3 mg/dl (8.5-10.1); CARBON DIOXIDE 29 mmol/L (21-32); CREATININE 0.54 mg/dl (0.60-1.40); GLUCOSE 101 mg/dl (70-99); PHOSPHORUS 3.5 mg/dl (2.5-4.9); POTASSIUM 3.1 mmol/L (3.5-5.1); SODIUM 135 mmol/L (136-145)
[2017-09-23 07:54] VITALS: BP 101/69; PULSE 66; TEMP 36.7; O2SAT 99
[2017-09-23] MEDS: POLYETHYLENE (MIRALAX) 17 GM PACK PO SCH (08:00)
[2017-09-23] MEDS: AMPHETAMINE ASP/SULF/DEXTRAMPH 20 MG TAB PO SCH (08:24)
[2017-09-23] MEDS: POT PHOSPHATE MONOBASIC W/ SOD TAB PO SCH (08:25)
[2017-09-23] MEDS: OXYCODONE HCL IR 5 MG TAB (IMMEDIATE RELEASE) PO PRN (08:25)
[2017-09-23] MEDS: LORAZEPAM INJ 1 MG in SYRINGE 0.5 ML IV SCH (08:26)
[2017-09-23] MEDS: NICOTINE 21 MG/24 HR TDSY TD SCH (08:26)
[2017-09-23] MEDS: MAGNESIUM OXIDE 400 MG TAB PO SCH (08:27)
[2017-09-23] MEDS: DOCUSATE SODIUM 100 MG CAP PO SCH (08:27)
[2017-09-23] MEDS ORDERED: INSULIN ASPART 100 UNITS/ML 3 ML PEN SC SCH (08:30)
[2017-09-23] MEDS ORDERED: MAGNESIUM OXIDE 400 MG TAB PO ONE (09:30)
[2017-09-23] MEDS ORDERED: POTASSIUM CHLORIDE 20 MEQ TABCR PO STA (09:30)
--- NOTE | 2017-09-23 10:07 | Hematology/Oncology Prog Note ---
Hematology/Onc Progress Note Date of Service Sep 23, 2017. Diagnoses Nonseminomatous testicular carcinoma Medications Medications Administered Medications (Trade) Dose Ordered Sig/Maddie Route Start Time Stop Time Status Last Admin Dose Admin Enoxaparin Sodium (Lovenox Inj) 40 mg HS SQ 09/18/17 21:00 10/18/17 20:59 09/19/17 19:38 40 MG Ondansetron HCl (Zofran Inj) 4 mg Q6H PRN IV 09/18/17 13:00 10/18/17 12:59 09/22/17 10:25 4 MG Amphetamine Aspartate/ Amphetam Sulf (Amphetamine Aspartate/Amph Sulf/Dextramphet) 20 mg BID@0800,1200 PO 09/19/17 08:00 10/03/17 07:59 09/23/17 08:24 20 MG Insulin Aspart (novoLOG ASPART) AC SQ 09/18/17 16:30 09/18/17 16:30 DC 09/18/17 14:33 12 UNITS Multivitamins (Multivitamin Tab) 1 tab QPM PO 09/18/17 21:00 10/18/17 20:59 09/22/17 21:04 1 TAB Oxycodone HCl (Roxicodone Immediate Rel Tab) 10 mg Q4H PRN PO 09/18/17 13:15 10/02/17 13:14 09/23/17 08:25 10 MG Potassium/ Phosphorus/Sodium (Phospha 250 Neutral 155-852-130 Mg) 1 tab QID PO 09/18/17 17:00 10/18/17 16:59 09/23/17 08:25 1 TAB Magnesium Oxide (Mag-Ox Tab) 400 mg QAM PO 09/19/17 08:00 10/19/17 07:59 09/23/17 08:27 400 MG Polyethylene (Miralax Powder Packet) 34 gm ONE ONCE PO 09/18/17 13:15 09/18/17 13:21 DC 09/18/17 14:34 34 GM Docusate Sodium (coLACE CAP) 100 mg BID PO 09/18/17 20:00 10/18/17 19:59 09/23/17 08:27 100 MG Palonosetron 0.25 mg/Syringe 5 ml @ 10 mls/min TODAY@1530 IV 09/18/17 15:30 09/18/17 23:59 DC 09/18/17 16:21 10 MLS/MIN Dexamethasone Sodium Phosphate 10 mg/Sodium Chloride 52.5 ml @ 157.5 mls/ hr TODAY@1530 IV 09/18/17 15:30 09/18/17 23:59 DC 09/18/17 16:28 157.5 MLS/HR Fosaprepitant 150 mg/Sodium Chloride 150 ml @ 300 mls/hr TODAY@1530 IV 09/18/17 15:30 09/18/17 23:59 DC 09/18/17 17:14 300 MLS/HR Etoposide 180 mg/ Sodium Chloride 509 ml @ 509 mls/hr TODAY@1600 IV 09/18/17 16:00 09/18/17 16:00 DC 09/18/17 18:05 509 MLS/HR Cisplatin 36 mg/ Sodium Chloride 286 ml @ 286 mls/hr TODAY@1700 IV 09/18/17 17:00 09/18/17 23:59 DC 09/18/17 19:51 286 MLS/HR Cisplatin 36 mg/ Sodium Chloride 286 ml @ 286 mls/hr TODAY@1300 IV 09/19/17 13:00 09/19/17 23:59 DC 09/19/17 14:23 286 MLS/HR Cisplatin 36 mg/ Sodium Chloride 286 ml @ 286 mls/hr DAILY@1100 IV 09/20/17 11:00 09/22/17 23:59 DC 09/22/17 12:52 286 MLS/HR Sodium Chloride 1,000 ml @ 1,000 mls/hr TODAY@1600,1800 IV 09/18/17 16:00 09/18/17 23:59 DC 09/18/17 21:14 1,000 MLS/HR Sodium Chloride 1,000 ml @ 1,000 mls/hr TODAY@1200,1400 IV 09/19/17 12:00 09/19/17 23:59 DC 09/19/17 14:00 1,000 MLS/HR Sodium Chloride 1,000 ml @ 1,000 mls/hr BID@1000,1200 IV 09/20/17 10:00 09/22/17 23:59 DC 09/22/17 12:00 1,000 MLS/HR Etoposide 180 mg/ Sodium Chloride 509 ml @ 509 mls/hr TODAY@1600 IV 09/18/17 16:00 09/18/17 23:59 DC 09/18/17 18:08 509 MLS/HR Etoposide 180 mg/ Sodium Chloride 509 ml @ 509 mls/hr DAILY@1000 IV 09/20/17 10:00 09/22/17 23:59 DC 09/22/17 11:13 509 MLS/HR Etoposide 180 mg/ Sodium Chloride 509 ml @ 509 mls/hr TODAY@1200 IV 09/19/17 12:00 09/19/17 23:59 DC 09/19/17 13:06 509 MLS/HR Dexamethasone Sodium Phosphate 10 mg/Sodium Chloride 52.5 ml @ 157.5 mls/ hr TODAY@1130 IV 09/19/17 11:30 09/19/17 23:59 DC 09/19/17 12:19 157.5 MLS/HR Dexamethasone Sodium Phosphate 10 mg/Sodium Chloride 52.5 ml @ 157.5 mls/ hr DAILY@0930 IV 09/20/17 09:30 09/22/17 23:59 DC 09/22/17 10:24 157.5 MLS/HR Insulin Aspart (novoLOG ASPART) ACHS SQ 09/18/17 16:30 09/21/17 09:52 DC 09/20/17 21:53 9 UNITS Insulin Aspart (novoLOG ASPART) TODAY@0200 SQ 09/19/17 02:00 09/19/17 02:01 DC 09/19/17 02:12 2 UNITS Ketorolac Tromethamine (Toradol Inj) 15 mg Q6H PRN IV 09/18/17 17:45 09/23/17 17:44 09/19/17 14:49 15 MG Insulin Glargine (Lantus Solostar Pen) 18 units HS SQ 09/18/17 21:00 10/18/17 20:59 09/22/17 21:09 18 UNITS Morphine Sulfate (MoRPHine SULFATE INJ) 4 mg Q4H PRN IV 09/18/17 21:30 10/02/17 21:29 09/23/17 05:54 4 MG Morphine Sulfate (MoRPHine SULFATE INJ) 4 mg STK-MED ONCE .ROUTE 09/18/17 21:28 09/18/17 21:29 DC 09/18/17 21:31 4 MG Heparin Sodium (Porcine) (Heparin 100 Unit/ml 5ml Flush) 5 ml PRN PRN IV 09/18/17 22:15 10/18/17 22:14 09/23/17 06:15 5 ML Nicotine (Nicoderm Cq 14MG Patch) 1 patch QAM TD 09/19/17 09:45 09/19/17 12:56 DC 09/19/17 10:18 1 PATCH Lorazepam (Ativan Inj) 2 mg STK-MED ONCE .ROUTE 09/19/17 10:24 09/19/17 10:25 DC 09/19/17 10:25 0.5 MG Polyethylene (Miralax Powder Packet) 17 gm DAILY PO 09/20/17 08:00 10/20/17 07:59 09/21/17 12:45 17 GM Lorazepam (Ativan Tab) 0.5 mg Q8 PRN PO 09/19/17 11:00 10/19/17 10:59 09/22/17 17:04 0.5 MG Nicotine (Nicoderm Cq 21MG Patch) 1 patch QAM TD 09/20/17 08:00 10/20/17 07:59 09/23/17 08:26 1 PATCH Miscellaneous (Remove Nicoderm Patch) 1 ea HS N/A 09/19/17 21:00 10/19/17 20:59 09/21/17 21:00 1 EA Insulin Aspart (novoLOG ASPART) SLIDING SCALE 0200 SQ 09/20/17 02:00 09/20/17 02:01 DC 09/20/17 02:11 1 UNITS Insulin Human Regular 5 units/ Syringe 5 ml @ 30 mls/min TODAY@1730 IV 09/20/17 17:30 09/20/17 17:31 DC 09/20/17 18:32 30 MLS/MIN Insulin Human Regular 5 units/ Syringe 5 ml @ 30 mls/min TODAY@2130 IV 09/20/17 21:30 09/20/17 21:31 DC 09/20/17 21:54 30 MLS/MIN Insulin Aspart (novoLOG ASPART) SLIDING SCALE ACHS@1100,1630 SQ 09/21/17 11:00 09/22/17 09:12 DC 09/21/17 18:20 14 UNITS Insulin Aspart (novoLOG ASPART) SLIDING SCALE HS SQ 09/21/17 21:00 09/22/17 09:12 DC 09/21/17 21:10 6 UNITS Insulin Aspart (novoLOG ASPART) SLIDING SCALE ACHS@0630 SQ 09/22/17 06:30 09/22/17 09:12 DC 09/22/17 08:55 10 UNITS Insulin Aspart (novoLOG ASPART) SLIDING SCALE 0200 SQ 09/22/17 02:00 09/22/17 09:12 DC 09/22/17 02:41 10 UNITS Prochlorperazine Edisylate 5 mg/ Syringe 5 ml @ 5 mls/min Q6H PRN IV 09/22/17 01:45 10/22/17 01:44 09/22/17 17:53 5 MLS/MIN Insulin Human Regular 6 units/ Syringe 6 ml @ 30 mls/min TODAY@0230 IV 09/22/17 02:30 09/22/17 02:31 DC 09/22/17 02:40 30 MLS/MIN Insulin Aspart (novoLOG ASPART) SLIDING SCALE PCHS SC 09/22/17 13:00 09/23/17 08:00 DC 09/22/17 17:59 4 UNITS Lorazepam (Ativan Inj) 2 mg STK-MED ONCE .ROUTE 09/22/17 09:07 09/22/17 09:08 DC 09/22/17 09:07 2 MG Insulin Human Regular 1.5 unit/ Syringe 1.5 ml @ 3 mls/min TODAY@0915 IV 09/22/17 09:15 09/22/17 12:00 DC 09/22/17 09:42 3 MLS/MIN Insulin Human Regular 250 units/ Sodium Chloride 252.5 ml @ 0 mls/hr Q24H IV 09/22/17 09:15 09/23/17 08:00 DC 09/23/17 07:49 0.6 MLS/HR Metoclopramide HCl (Reglan Inj) 10 mg Q6H IV 09/22/17 12:00 10/22/17 11:59 09/23/17 05:54 10 MG Ondansetron HCl 8 mg/Dextrose 54 ml @ 216 mls/hr Q8 IV 09/22/17 12:30 10/22/17 12:29 09/23/17 05:55 216 MLS/HR Lorazepam 1 mg/ Syringe 1 ml @ 1 mls/min Q12H IV 09/22/17 18:00 2/20/18 17:59 09/23/17 08:26 1 MLS/MIN Insulin Aspart (novoLOG ASPART) SLIDING SCALE ACHS SC 09/23/17 08:30 10/23/17 08:29 09/23/17 08:37 2 UNITS Subjective He was able to finish his first course of cis-tribal and etoposide. Looks well today. He has had no further emesis. He is anxious for discharge. Review of Systems: Constitutional: Negative for night sweats, or fever Eyes: Negative for event change of vision ENT: Negative for epistaxis, nasal discharge, sore throat, or deafness Cardiovascular: Negative for chest pain, palpitations, dizziness, diaphoresis Respiratory: Negative for new shortness of breath,hemoptysis, or purulent cough Gastrointestinal: Negative for diarrhea, hematemesis, melena, nausea, vomiting , or dyspepsia Integumentary (skin): Negative for rash or jaundice discoloration Neurological: Negative for weakness, seizure activity, headache, or dizziness Lymphatic/Hematologic: Negative for petechiae, bleeding or new adenopathy Musculoskeletal: Negative for new joint or back pain Allergic/Immunologic: Negative for unusual rash or pruritis. Vital Signs Vital Signs Past 12 Hours Date Time Temp Pulse Resp B/P (MAP) Pulse Ox O2 Delivery O2 Flow Rate FiO2 09/23/17 07:54 36.7 66 18 101/69 (80) 99 Room Air 09/23/17 04:47 36.8 73 20 106/66 (79) 97 Room Air 09/23/17 00:00 Room Air Physical Exam Constitutional: vitals are stable. Eyes: Eyes are SOM EOMI without conjuctival erythema or icterus. ENT: External examination was negative for masses. Neck: Negative for masses or palpable thyromegaly Respiratory: Lung sounds were generally clear bilaterally Cardiovascular: Heart was RRR without significant murmur, gallops aoe rubs Gastrointestinal: No palpable hepatic or splenomegaly. The abdomen was soft with normal bowel sounds. Lymphatic system: there was no palpable peripheral lymphadenopathy Musculoskeletal System: The musculoskeletal system seemed concordant with age. Skin: The skin was negative for jaundice. Neurologic exam: The exam was negative for any focal findings. Deep tendon reflexes were equal and symmetrical. Psychiatric exam: Was essentially negative with normal mood and effect. Laboratory Last 24 Hours Test 09/22/17 10:48 09/22/17 11:48 09/22/17 12:44 09/22/17 13:50 Bedside Glucose 340 mg/dl 315 mg/dl 248 mg/dl 232 mg/dl Test 09/22/17 14:51 09/22/17 15:48 09/22/17 16:44 09/22/17 17:47 Bedside Glucose 206 mg/dl 218 mg/dl 289 mg/dl 400 mg/dl Test 09/22/17 18:44 09/22/17 19:48 09/22/17 20:43 09/22/17 21:48 Bedside Glucose 429 mg/dl 395 mg/dl 324 mg/dl 268 mg/dl Test 09/22/17 22:55 09/23/17 00:34 09/23/17 01:26 09/23/17 01:48 Bedside Glucose 177 mg/dl 117 mg/dl 92 mg/dl 88 mg/dl Test 09/23/17 02:18 09/23/17 03:31 09/23/17 04:39 09/23/17 05:14 Bedside Glucose 123 mg/dl 128 mg/dl 106 mg/dl White Blood Count 7.61 K/uL Red Blood Count 4.13 M/uL Hemoglobin 12.0 g/dL Hematocrit 33.8 % Mean Corpuscular Volume 81.8 fL Mean Corpuscular Hemoglobin 29.1 pg Mean Corpuscular Hemoglobin Concent 35.5 g/dl Platelet Count 359 K/uL Mean Platelet Volume 9.0 fL Neutrophils (%) (Auto) 69.3 % Lymphocytes (%) (Auto) 27.6 % Monocytes (%) (Auto) 0.5 % Eosinophils (%) (Auto) 2.2 % Basophils (%) (Auto) 0.3 % Neutrophils # (Auto) 5.27 K/uL Lymphocytes # (Auto) 2.10 K/uL Monocytes # (Auto) 0.04 K/uL Eosinophils # (Auto) 0.17 K/uL Basophils # (Auto) 0.02 K/uL RDW Standard Deviation 35.8 fL RDW Coefficient of Variation 12.1 % Immature Granulocyte % (Auto) 0.1 % Immature Granulocyte # (Auto) 0.01 K/uL Sodium Level 135 mmol/L Potassium Level 3.1 mmol/L Chloride Level 100 mmol/L Carbon Dioxide Level 29 mmol/L Anion Gap 6.0 mmol/L Blood Urea Nitrogen 15 mg/dl Creatinine 0.54 mg/dl Est Creatinine Clear Calc Drug Dose 183.1 ml/min Estimated GFR () > 150.0 Estimated GFR (Non- 145.9 BUN/Creatinine Ratio 28.6 Random Glucose 101 mg/dl Calcium Level 8.3 mg/dl Phosphorus Level 3.5 mg/dl Magnesium Level 1.6 mg/dl Test 09/23/17 05:43 09/23/17 06:46 09/23/17 07:39 Bedside Glucose 99 mg/dl 113 mg/dl 100 mg/dl Assessment & Plan Nonseminomatous testicular carcinoma being treated with cis-tribal and etoposide. He is now completed his first course. He is anxious for discharge. His next cycle will be in 3 weeks. We will arrange for a follow-up in our clinic to occur just prior to a second plan admission for the second of 4 planned courses of this doublet. Appreciate Dr. Mai's help.
[2017-09-23] MEDS ORDERED: OXYC-292 PO (10:20)
[2017-09-23] MEDS ORDERED: OXYC-164 PO (10:20)
[2017-09-23] MEDS ORDERED: MCRK20 PO (10:20)
[2017-09-23 10:24] VITALS: BP 101/69; PULSE 66; TEMP 36.7; O2SAT 99
--- NOTE | 2017-09-23 10:24 | Discharge Instructions ---
Discharge Instructions Date of Service Sep 23, 2017. Admission Reason for Admission: Testicular Cancer Discharge Discharge Diagnosis / Problem: Testicular cancer, chemotherapy Discharge Goals Goal(s): Decrease discomfort, Therapeutic intervention (next round of chemotherapy) Activity Recommendations Activity Limitations: resume your previous activity . Instructions / Follow-Up Instructions / Follow-Up Medications: - OXYCODONE ER: take 10mg every 12 hours for long acting pain relief, use the 10mg tablets (short acting) in addition for pain relief - REGLAN: take as prescribed per Dr. Ortiz - Potassium: take once a day - Insulin: resume home regimen, you experienced hyperglycemic in the hospital due to steroid treatment FOLLOW UP - Dr. Ortiz in 3 weeks, prior to next inpatient treatment Current Hospital Diet Patient's current hospital diet: Diabetes Type 1 Diet Discharge Diet Recommended Diet: Diabetes Type 1 Diet Pending Studies Studies pending at discharge: no Laboratory Results Hemoglobin A1c Test 09/18/17 13:02 Range/Units Estimated Average Glucose 226 mg/dl Hemoglobin A1c 9.5 H 4.5-5.6 % Medical Emergencies . Who to Call and When: Medical Emergencies: If at any time you feel your situation is an emergency, please call 911 immediately. . Non-Emergent Contact Non-Emergency issues call your: Primary Care Provider, Oncologist Call Non-Emergent contact if: your pain is not controlled, your pain is worsening, you have any medication questions . . "Provider Documentation" section prepared by Warren Deshpande. . VTE Core Measure Inpt VTE Proph given/why not?: Enoxaparin (Lovenox) [place] Drug Monitoring Program Search Results: no issues identified
[2017-09-23] MEDS ORDERED: NICO21DI4 TD (10:26)
[2017-09-23] MEDS ORDERED: POTASSIUM CHLORIDE 20 MEQ TABCR PO SCH (20:00)
--- NOTE | 2017-09-24 07:41 | Discharge Summary ---
Discharge Summary Date of Service Sep 23, 2017. Discharge Summary Admission Date: Sep 18, 2017 at 11:43 Discharge Date: Sep 23, 2017 Discharge Disposition: Home Principal Diagnosis: Testicular cancer Problems/Secondary Diagnoses: DM type one with hyperglycemia Hypokalemia Hypomagnesemia Procedures: Chemotherapy Consultations: Oncology Medication Reconciliation New Medications: Oxycodone Hcl (Oxycodone Hcl Er) 10 Mg Tab 10 MG PO Q12, #20 TAB 0 Refills Nicotine (Nicoderm Cq) 21 Mg/24 Hr Dis 1 PATCH TD QAM, #10 PATCH 0 Refills Potassium Chloride (Klor-Con M20) 20 Meq Tabcr 20 MEQ PO DAILY, #30 TABS 3 Refills Continued Medications: Amphetamine-Dextroamphetamine 20MG (Adderall 20MG) 1 Tab Tab 20 MG PO BID, TAB Insulin Glargine (Basaglar Kwikpen) 100 Unit/Ml Inj 21 UNITS SQ HS Insulin Lispro (Human) (Humalog) 100 Unit/Ml Inj SQ UD SLIDING SCALE Multivitamin (Multivitamin) Tab 1 TAB PO QPM, TAB Ondansetron Hcl (Zofran) 4 Mg Tab 4 MG PO PRN PRN for Nausea, TAB Oxycodone Hcl (Oxycodone Hcl) 10 Mg Tab 10 MG PO Q4 PRN for Pain, #20 TABS 0 Refills (This prescription has been renewed ) Discharge Exam Patient feeling well, no nausea, sugars well controlled, wanting to go home in the morning. Discussed discharge plan with he and his significant other. Plan on following up with Dr. Cruz. Requested long acting pain medications and nicotine patch Review of Systems: Constitutional: No fever, No chills, No sweats, No weight loss, No weakness , No fatigue, No problem reported Eyes: No worsening of vision, No eye pain, No redness, No discharge, No diplopia, No problem reported ENT: No hearing loss, No unusual epistaxis, No nasal symptoms, No sore throat, No tinnitus, No dental problems, No trouble swallowing, No problem reported Respiratory: No cough, No sputum, No wheezing, No shortness of breath, No dyspnea on exertion, No dyspnea at rest, No hemoptysis, No problem reported Cardiovascular: No chest pain, No orthopnea, No PND, No edema, No claudication, No palpitations, No problem reported Abdomen: No pain, No nausea, No vomiting, No diarrhea, No constipation, No GI bleeding, No problem reported Musculoskeletal: + joint pain (left flank and low back pain from malignancy) , No muscle pain, No swelling, No calf pain, No problem reported Genitourinary - Male: No hematuria, No dysuria, No urinary frequency, No urinary urgency Neurologic: No memory loss, No paralysis, No weakness, No numbness/tingling , No vertigo, No balance problems, No problem reported Psychiatric: No depression symptoms, No anhedonism, No anxiety, No insomnia , No substance abuse, No problem reported Endocrine: No fatigue, No excessive thirst, No excessive urination, No problem reported Hematologic / Lymphatic: No abnormal bleeding/bruising, No clotting problems , No swollen lymph nodes, No night sweats, No problem reported Integumentary: No rash, No itch, No new/changing skin lesions, No color change, No bleeding, No problem reported Physical Exam: General Appearance: WD/WN, no apparent distress Eyes: normal inspection, EOMI, sclerae normal ENT: normal ENT inspection, hearing grossly normal, pharynx normal Neck: supple, no adenopathy, no JVD, trachea midline Respiratory/Chest: chest non-tender, lungs clear, normal breath sounds, no respiratory distress, no accessory muscle use Cardiovascular: regular rate, rhythm, no edema, no gallop, no JVD, no murmur , normal peripheral pulses Abdomen / GI: normal bowel sounds, non tender, soft, no organomegaly Extremities: normal inspection, no calf tenderness, normal capillary refill , no pedal edema, normal range of motion, pelvis stable Neurologic/Psychiatric: 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, no motor/sensory deficits , alert, normal mood/affect, normal reflexes, oriented x 3 Skin: normal color, warm/dry, no rash Hospital Course 27 y/o male with Metastatic testicular cancer ( Nonseminomatous testicular carcinoma), direct admission for chemotherapy with cis-[place] and etoposide chemo finished on 09/22 plan to follow up with oncology in 3 weeks prior to second round of chemo prescribed Oxycodone ER 10mg q12 with OxyIR 10mg q4 for breakthrough for malignant pain Zofran and Reglan prescribed for nausea Uncontrolled DM type 1 with a significant elevated blood glucose more than 400 due to decadron as part of the chemotherapy regimen treated with insulin drip will d/c on home regimen of basal and bolus insulin now that decadron completed Constipation, bowel regimen is ordered, continue current care ADHD--stable Hypomagnesemia, hypophosphatemia, hypokalemia: replaced Tobacco abuse, Nicotine patch 21 mg, consult quit smoking Anxiety , is on Ativan 0.5 mg PO q8h prn DVT prophylaxis -Enoxaparin 40 mg SC q24h Total Time Spent: Greater than 30 minutes This includes examination of the patient, discharge planning, medication reconciliation, and communication with other providers. Discharge Instructions Please refer to the electronic Patient Visit Report (Discharge Instructions) for additional information. Follow-Up Oncology in 3 weeks Additional Copies To Bairon Cruz MD; Kade Kelsey M.D.
[2017-09-24] MEDS ORDERED: MAGNESIUM OXIDE 400 MG TAB PO SCH (08:00)
== END 2017-09-23 10:49 | disposition home or self-care (01) | DRG 722 ==
LOC: C.4E 11:43
PROVIDERS: ADMIT Family Medicine; ATTEND Internal Medicine
DX: C62.92 Malignant neoplasm of left testis, unspecified whether descended or undescended (principal); E10.10 Type 1 diabetes mellitus with ketoacidosis without coma; C77.2 Secondary and unspecified malignant neoplasm of intra-abdominal lymph nodes; K56.7 Ileus, unspecified; E86.0 Dehydration; E10.65 Type 1 diabetes mellitus with hyperglycemia; Z90.79 Acquired absence of other genital organ(s); Z80.3 Family history of malignant neoplasm of breast; F17.210 Nicotine dependence, cigarettes, uncomplicated; E83.42 Hypomagnesemia; K59.09 Other constipation; F90.9 Attention-deficit hyperactivity disorder, unspecified type; E83.39 Other disorders of phosphorus metabolism

== ENCOUNTER 2017-10-05 07:56 | Emergency (ER) | payer OTHER ==
[~2017-10-05] VITALS: Ht 182.9 cm; Wt 61.9 kg
[~2017-10-05 07:56] MED LIST changes: +MCRK20 PO; +NICO21DI4 TD; +OXYC-292 PO
[2017-10-05 07:59] VITALS: TEMP 36.9; Ht 182.9 cm; Wt 61.9 kg
[2017-10-05] MEDS ORDERED: SODIUM CHLORIDE 0.9% 1000ML 1,000 ML IV STA (08:09)
--- NOTE | 2017-10-05 08:19 | EMERGENCY ROOM VISIT NOTE ---
History Report prepared by Luh: Jennie Amin Under the Supervision of: Dr. Ladarius Cr M.D. First contact with patient: 08:06 Chief Complaint: HYPOGLYCEMIA Stated Complaint: HYPOGLYCEMIC,TYPE 1 DIABETES,LOW SUGAR History of Present Illness The patient is a 27 year old male who presents to the Emergency Room with complaints of persistent hypoglycemia since last night. He has a history of type 1 diabetes and states his BSG's have been between 40 and 70. He has not taken Insulin in the past 24 hours because of low blood pressure. His girlfriend reports last night his BSG was around 80, but after the patient ate pasta for dinner, it dropped even lower. The patient is currently on chemotherapy for a history of metastatic testicular cancer and is going to start his second round of chemo this coming Saturday and his girlfriend reports he has an appointment with an Traffic Court Magistrate this coming Saturday. The patients last chemo was on September 22. 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 He notes he has experienced a "tingling" feeling in his scalp for the past several days. He denies any diarrhea or urinary symptoms. Source of History: patient Onset: last night Position: other (global) Timing: other (persistent) Associated Symptoms: + abdominal pain, + numbness (in the scalp), No diarrhea, No urinary symptoms Review of Systems See HPI for pertinent positives and negatives. A total of ten systems were reviewed and were otherwise negative. Past Medical & Surgical Medical Problems: (1) Diabetes (2) Intractable nausea and vomiting (3) Teratoma of pelvis (4) Testis cancer (5) Toe fracture Family History Diabetes mellitus Heart disease Hypertension Kidney disease Kidney stones Social History Smoking Status: Current Every Day Smoker Drug Use: none Marital Status: single Housing Status: lives with family Occupation Status: unemployed Current/Historical Medications Scheduled Amphetamine-Dextroamphetamine 20MG (Adderall 20MG), 20 MG PO BID Insulin Glargine (Basaglar Kwikpen), 21 UNITS SQ HS Insulin Lispro (Human) (Humalog), SQ UD Multivitamin (Multivitamin), 1 TAB PO QPM Oxycodone Hcl (Oxycodone Hcl Er), 10 MG PO Q12 Potassium Chloride (Klor-Con M20), 20 MEQ PO DAILY Scheduled PRN Lorazepam (Ativan), 1 TAB PO UD PRN for NAUSEA/ANXIETY Oxycodone Hcl (Oxycodone Hcl), 10 MG PO Q4 PRN for Pain Prochlorperazine Maleate (Compazine), 1 TAB PO UD PRN for Nausea Allergies Coded Allergies: No Known Allergies (Verified , 10/05/17) Physical Exam Vital Signs Date Time Temp Pulse Resp B/P (MAP) Pulse Ox O2 Delivery O2 Flow Rate FiO2 10/05/17 11:04 92 16 121/84 95 10/05/17 07:59 36.9 117 18 136/81 98 Room Air Physical Exam GENERAL: Awake, alert, fatigued and cachectic appearing, in no distress HENT: Normocephalic, atraumatic. Oropharynx unremarkable. Dry cracked mucous membranes. EYES: Normal conjunctiva. Sclera non-icteric. NECK: Supple. No nuchal rigidity. FROM. No JVD. RESPIRATORY: Clear to auscultation. CARDIAC: Regular rate, normal rhythm. Extremities warm and well perfused. Pulses equal. ABDOMEN: Soft, non-distended. No tenderness to palpation. No rebound or guarding. No masses. RECTAL: Deferred. MUSCULOSKELETAL: Chest examination reveals no tenderness. The back is symmetrical on inspection without obvious abnormality. There is no CVA tenderness to palpation. No joint edema. LOWER EXTREMITIES: Calves are equal size bilaterally and non-tender. No edema. No discoloration. NEURO: Normal sensorium. No sensory or motor deficits noted. SKIN: No rash or jaundice noted. Medical Decision & Procedures Laboratory Results 10/05/17 09:24 Red Blood Count 4.51, Mean Corpuscular Volume 82.7, Mean Corpuscular Hemoglobin 28.6, Mean Corpuscular Hemoglobin Concent 34.6, Mean Platelet Volume 8.3, Neutrophils (%) (Auto) 33.8, Lymphocytes (%) (Auto) 51.4, Monocytes (%) (Auto) 13.2, Eosinophils (%) (Auto) 1.3, Basophils (%) (Auto) 0.3, Neutrophils # (Auto ) 1.05, Lymphocytes # (Auto) 1.60, Monocytes # (Auto) 0.41, Eosinophils # (Auto ) 0.04, Basophils # (Auto) 0.01 10/05/17 09:24 Test 10/05/17 08:44 10/05/17 09:20 2/3/18 09:24 Bedside Glucose 165 mg/dl (70-99) Urine Color YELLOW Urine Appearance CLEAR (CLEAR) Urine pH 7.0 (4.5-7.5) Urine Specific [place] 1.007 (1.000-1.030) Urine Protein NEG (NEG) Urine Glucose (UA) NEG (NEG) Urine Ketones NEG (NEG) Urine Occult Blood NEG (NEG) Urine Nitrite NEG (NEG) Urine Bilirubin NEG (NEG) Urine Urobilinogen NEG (NEG) Urine Leukocyte Esterase NEG (NEG) White Blood Count 3.11 K/uL (4.8-10.8) Red Blood Count 4.51 M/uL (4.7-6.1) Hemoglobin 12.9 g/dL (14.0-18.0) Hematocrit 37.3 % (42-52) Mean Corpuscular Volume 82.7 fL (80-100) Mean Corpuscular Hemoglobin 28.6 pg (25-34) Mean Corpuscular Hemoglobin Concent 34.6 g/dl (32-36) Platelet Count 262 K/uL (130-400) Mean Platelet Volume 8.3 fL (7.4-10.4) Neutrophils (%) (Auto) 33.8 % Lymphocytes (%) (Auto) 51.4 % Monocytes (%) (Auto) 13.2 % Eosinophils (%) (Auto) 1.3 % Basophils (%) (Auto) 0.3 % Neutrophils # (Auto) 1.05 K/uL (1.4-6.5) Lymphocytes # (Auto) 1.60 K/uL (1.2-3.4) Monocytes # (Auto) 0.41 K/uL (0.11-0.59) Eosinophils # (Auto) 0.04 K/uL (0-0.5) Basophils # (Auto) 0.01 K/uL (0-0.2) RDW Standard Deviation 37.2 fL (36.4-46.3) RDW Coefficient of Variation 12.9 % (11.5-14.5) Immature Granulocyte % (Auto) 0.0 % Immature Granulocyte # (Auto) 0.00 K/uL (0.00-0.02) Anion Gap 6.0 mmol/L (3-11) Est Creatinine Clear Calc Drug Dose 143.3 ml/min Estimated GFR () > 150.0 Estimated GFR (Non- 131.9 BUN/Creatinine Ratio 19.2 (10-20) Calcium Level 9.4 mg/dl (8.5-10.1) Total Bilirubin 0.3 mg/dl (0.2-1) Direct Bilirubin < 0.1 mg/dl (0-0.2) Aspartate Amino Transf (AST/SGOT) 16 U/L (15-37) Alanine Aminotransferase (ALT/SGPT) 21 U/L (12-78) Alkaline Phosphatase 93 U/L (45-117) Total Protein 7.8 gm/dl (6.4-8.2) Albumin 3.8 gm/dl (3.4-5.0) Lipase 38 U/L (73-393) Laboratory results reviewed by me Medications Administered Medications (Trade) Dose Ordered Sig/Maddie Route Start Time Stop Time Status Last Admin Dose Admin Sodium Chloride 1,000 ml @ 999 mls/hr Q1H1M STAT IV 10/05/17 08:09 10/05/17 09:09 DC 10/05/17 09:50 999 MLS/HR Oxycodone HCl (Roxicodone Immediate Rel Tab) 10 mg NOW STAT PO 10/05/17 09:39 10/05/17 09:41 DC 10/05/17 09:54 10 MG Heparin Sodium (Porcine) (Heparin 100 Unit/ml 5ml Flush) 5 ml STK-MED ONCE .ROUTE 10/05/17 10:44 10/05/17 10:45 DC 10/05/17 11:00 5 ML ED Course 0807: The patient was evaluated in room B4. A complete history and physical exam was performed. 1043: I reevaluated the patient. He is feeling better. I discussed his results and discharge instructions and he verbalized complete understanding and agreement. Medical Decision I reviewed the patient's past medical history, medications, and the nursing notes as described above. The patient's presentation and history were concerning for failure to thrive, adverse medication effects, adverse chemotherapy effects, insulinoma. The patient is a 27 y/o gentleman with a pmhx of IDDM1, testicular cancer s/p resection and intrabdominal metastases now undergoing chemotherapy f/b Dr. Adair teran, Oncology, presents to the emergency department with the concern for low blood sugars over the past week and still today despite not taking any insulin per HPI. Denies f/c, cough, congestion. On arrival the patient is fatigue and cachectic appearing but in NAD, AFVSS. Labs unremarkable with glucose in 100s. Unclear etiology of patient's low-normal blood sugars, particularly given that on patient's recent admission in September he had uncontrolled blood sugars. Most likely related patient's poor nutritional status in the setting of his metastatic disease and chemotherapy. Given reassuring labs and vital signs, d/c with outpatient f/u is appropriate. Patient has endocrinology appointment scheduled for Saturday. Findings and plan for follow-up reviewed with patient. Patient agreeable and d/c'd per discharge instructions. Medication Reconcilliation Current Medication List: was personally reviewed by me Blood Pressure Screening Patient's blood pressure: Normal blood pressure Blood pressure disposition: Did not require urgent referral Impression Primary Impression: Hypoglycemia Scribe Attestation The scribe's documentation has been prepared under my direction and personally reviewed by me in its entirety. I confirm that the note above accurately reflects all work, treatment, procedures, and medical decision making performed by me. Departure Information Dispostion Home / Self-Care Referrals Kade Kelsey M.D. (PCP) Patient Instructions Hypoglycemia, My [facility] Additional Instructions Please follow up with your manufacturing specialist on Saturday as scheduled for re- evaluation. Otherwise, your exam and lab results did not show signs of an emergent condition at this time. Hold your long-acting insulin so long as your sugars are running low. Set an alarm for every 3 hours overnight to check your blood sugars to make sure they are not too low. Return to the emergency department for worsening symptoms as described in the accompanying instructions.
[2017-10-05] MEDS ORDERED: PROC1TAB5 PO (09:09)
[2017-10-05] MEDS ORDERED: ATV/1 PO (09:09)
[2017-10-05] MEDS ORDERED: OXYCODONE HCL IR 5 MG TAB (IMMEDIATE RELEASE) PO STA (09:39)
[2017-10-05 09:52] LABS: HEMATOCRIT 37.3 % (42-52); HEMOGLOBIN 12.9 g/dL (14.0-18.0); MEAN CELL VOLUME 82.7 fL (80-100); MEAN CORPUSCULAR HEMOGLOBIN 28.6 pg (25-34); MEAN CORPUSCULAR HGB CONC 34.6 g/dl (32-36); MEAN PLATELET VOLUME 8.3 fL (7.4-10.4); PLATELET COUNT 262 K/uL (130-400); RED CELL DISTRIBUTION WIDTH CV 12.9 % (11.5-14.5); RED CELL DISTRIBUTION WIDTH SD 37.2 fL (36.4-46.3); WHITE BLOOD COUNT 3.11 K/uL (4.8-10.8)
[2017-10-05 10:05] LABS: BASO % 0.3 %; BASO ABS # 0.01 K/uL (0-0.2); EOS % 1.3 %; EOS ABS # 0.04 K/uL (0-0.5); LYMPH % 51.4 %; MONO % 13.2 %; MONO ABS # 0.41 K/uL (0.11-0.59); NEUT % 33.8 %; NEUT ABS # 1.05 K/uL (1.4-6.5)
[2017-10-05 10:06] LABS: ALBUMIN 3.8 gm/dl (3.4-5.0); ALT/SGPT 21 U/L (12-78); AST/SGOT 16 U/L (15-37); BLOOD UREA NITROGEN 13 mg/dl (7-18); CALCIUM 9.4 mg/dl (8.5-10.1); CARBON DIOXIDE 28 mmol/L (21-32); CREATININE 0.69 mg/dl (0.60-1.40); GLUCOSE 116 mg/dl (70-99); LIPASE 38 U/L (73-393); POTASSIUM 3.6 mmol/L (3.5-5.1); SODIUM 134 mmol/L (136-145)
[2017-10-05 10:14] LABS: ALKALINE PHOSPHATASE 93 U/L (45-117); TOTAL PROTEIN 7.8 gm/dl (6.4-8.2)
[2017-10-05 11:04] VITALS: BP 121/84; PULSE 92; O2SAT 95
[2017-10-06] MEDS ORDERED: OXYC-164 PO (01:22)
[2017-10-06] MEDS ORDERED: POTA20TA16 PO (01:23)
[2017-10-06] MEDS ORDERED: ONDA4TAB46 PO (01:24)
== END 2017-10-05 11:00 | disposition home or self-care (01) ==
LOC: C.EDB 07:59
DX: E10.649 Type 1 diabetes mellitus with hypoglycemia without coma (principal); C62.90 Malignant neoplasm of unspecified testis, unspecified whether descended or undescended; Z83.3 Family history of diabetes mellitus; Z82.49 Family history of ischemic heart disease and other diseases of the circulatory system; Z84.1 Family history of disorders of kidney and ureter; F17.210 Nicotine dependence, cigarettes, uncomplicated; Z79.4 Long term (current) use of insulin; Z79.899 Other long term (current) drug therapy; Z90.79 Acquired absence of other genital organ(s); C79.89 Secondary malignant neoplasm of other specified sites

== ENCOUNTER 2017-10-06 00:27 | Emergency (ER) | payer OTHER ==
[~2017-10-06] VITALS: Ht 182.9 cm; Wt 61.7 kg
[~2017-10-06 00:27] MED LIST changes: +ATV/1 PO; +PROC1TAB5 PO
[2017-10-06 00:36] VITALS: TEMP 36.4; Ht 182.9 cm; Wt 61.7 kg
[2017-10-06] MEDS ORDERED: OXYC-164 PO (01:22)
[2017-10-06] MEDS ORDERED: POTA20TA16 PO (01:23)
[2017-10-06] MEDS ORDERED: ONDA4TAB46 PO (01:24)
--- NOTE | 2017-10-06 01:50 | EMERGENCY ROOM VISIT NOTE ---
History Report prepared by Luh: Jeramy Woodard Under the Supervision of: Dr. Julia Camarena D.O. First contact with patient: 01:26 Chief Complaint: ABDOMINAL PAIN Stated Complaint: SEVERE ABD PAIN FROM TUMOR,STD 2 TESTICULAR CANCER Nursing Triage Summary: Patient ambulatory to triage, agitated, unable to sit still, states "I have a port in my left chest for testicular cancer that spread into my abdomen. I am having a lot of pain from the tumor; it's yahir sized and super painful. I have nausea. My last chemo treatment was on 09/27/17." History of Present Illness The patient is a 27 year old male who presents to the Emergency Room with complaints of worsening abdominal pain that began a week ago. Patient states that he has associated symptoms of constipation and difficulty urinating. Patient states that he is currently taking stool softeners but they have not resolved the symptoms. Patient states that he has not slept in 5 days. Pertinent past medical history includes Stage 2 testicular cancer, ADHD, and Type 1 Diabetes Mellitus. Patient states he is currently getting chemotherapy. Patient states he has been more depressed than usual due to his hair falling out. Patient's oncologist is Dr. Cruz. Patient states that he has not taken insulin in the past 48 hours. Patient takes Adderall 20mg BID for his ADHD. Patient states that he sees a psychiatrist for his ADHD and anxiety. Patient denies a history of urinary infections. Patient adds that he has taken 10-12 oxycodone at 10mg each today. Patient adds that he was seen in the ER yesterday for hypoglycemia. Source of History: patient Onset: a week ago Position: abdomen Timing: worsening Modifying Factors (Relieving): other (None) Associated Symptoms: + urinary symptoms Note: Patient has constipation. Review of Systems See HPI for pertinent positives & negatives. A total of 10 systems reviewed and were otherwise negative. Past Medical & Surgical Medical Problems: (1) Diabetes (2) Intractable nausea and vomiting (3) Teratoma of pelvis (4) Testis cancer (5) Toe fracture Family History Diabetes mellitus Heart disease Hypertension Kidney disease Kidney stones Social History Smoking Status: Current Every Day Smoker Drug Use: none Marital Status: single Housing Status: lives with family Occupation Status: unemployed Current/Historical Medications Scheduled Amphetamine-Dextroamphetamine 20MG (Adderall 20MG), 20 MG PO BID Insulin Glargine (Basaglar Kwikpen), 21 UNITS SQ HS Insulin Lispro (Human) (Humalog), SQ UD Multivitamin (Multivitamin), 1 TAB PO QPM Potassium Ext Rel (Klor-Con), 20 MEQ PO DAILY Scheduled PRN Lorazepam (Ativan), 1 TAB PO UD PRN for NAUSEA/ANXIETY Ondansetron Hcl (Zofran), Unknown Dose PO DIRECTED PRN for Nausea Oxycodone Hcl (Oxycodone Hcl), 10 MG PO Q4 PRN for Pain Oxycodone Hcl (Oxycodone Hcl), 10 MG PO Q12 PRN for Pain Prochlorperazine Maleate (Compazine), 1 TAB PO UD PRN for Nausea Allergies Coded Allergies: No Known Allergies (Verified , 10/06/17) Physical Exam Vital Signs Date Time Temp Pulse Resp B/P (MAP) Pulse Ox O2 Delivery O2 Flow Rate FiO2 10/06/17 01:58 114 20 124/81 98 10/06/17 00:36 36.4 100 20 128/75 97 Room Air Physical Exam HEENT: Head - normocephalic and atraumatic Pupils are equal, round, and reactive to light. Extraocular eye muscles are intact, and sclera are anicteric. Nose - moist nasal mucosa without discharge. Mouth - moist buccal mucosa. Oropharynx is nonerythematous and there is no tonsillar exudate or edema noted. Neck: Supple; no JVD, nuchal rigidity, cervical lymphadenopathy. Heart: Regular rate and rhythm. There is a normal S1 and S2 with no murmurs, clicks, or gallops appreciated. Lungs: Clear to auscultation bilaterally with no wheezes, rales, or rhonchi. Abdomen: Soft, completely nontender, slightly distended, with hyperactive bowel sounds. There are no palpable pulsatile masses or hepatosplenomegaly. There is no guarding, rigidity, or rebound noted. Extremities: No evidence of cyanosis, clubbing, or edema. There are easily palpable peripheral pulses. Skin: warm and dry with good turgor and no rashes. Medical Decision & Procedures Laboratory Results Test 10/06/17 00:55 Bedside Glucose 204 mg/dl (70-99) Laboratory results per my review. ED Course 0128: Past medical records reviewed. The patient was evaluated in room A3. A complete history and physical exam was performed. I suggested we obtain an obstruction series and potentially perform an enema if the patient were constipated. He explained that he was feeling much better and did not want to have the testing done nor the enema. He wished to go home. I suggested that he try to he is magnesium citrate for constipation. The patient is currently taking approximately 100 mg of oxycodone a day. This could explain his constipation. Medical Decision The patient is a 27 year old male who presents to the ED with abdominal pain. Differential diagnosis includes constipation, bowel obstruction, and urinary retention. The patient was in moderate discomfort upon arrival here in the emergency department. By the time I evaluated him, his pain seemed to have subsided. He did not wish to pursue any further testing. Medication Reconcilliation Current Medication List: was personally reviewed by me Blood Pressure Screening Patient's blood pressure: Normal blood pressure Blood pressure disposition: Did not require urgent referral Impression Primary Impression: Constipation Scribe Attestation The scribe's documentation has been prepared under my direction and personally reviewed by me in its entirety. I confirm that the note above accurately reflects all work, treatment, procedures, and medical decision making performed by me. Departure Information Dispostion Home / Self-Care Referrals Bairon Cruz MD (PCP) Forms HOME CARE DOCUMENTATION FORM, IMPORTANT VISIT INFORMATION Patient Instructions ED Constipation, My [facility] Additional Instructions Take plenty of clear liquids Use magnesium citrate to promote stooling Follow up with Oncology about hairloss and depression - follow up at [facility] Problem Qualifiers Primary Impression: Constipation Constipation type: drug induced constipation Qualified Codes: K59.03 - Drug induced constipation
[2017-10-06 01:58] VITALS: BP 124/81; PULSE 114; O2SAT 98
== END 2017-10-06 02:00 | disposition home or self-care (01) ==
LOC: C.EDB 00:30 → C.EDA 02:00
DX: K59.03 Drug induced constipation (principal); T40.2X5A Adverse effect of other opioids, initial encounter; C62.90 Malignant neoplasm of unspecified testis, unspecified whether descended or undescended; E10.9 Type 1 diabetes mellitus without complications; F90.9 Attention-deficit hyperactivity disorder, unspecified type; F17.200 Nicotine dependence, unspecified, uncomplicated; Z79.4 Long term (current) use of insulin; Z83.3 Family history of diabetes mellitus; Z82.49 Family history of ischemic heart disease and other diseases of the circulatory system; Z84.1 Family history of disorders of kidney and ureter

== ENCOUNTER 2017-10-07 04:44 | Inpatient (IN) | payer OTHER ==
[~2017-10-07] VITALS: Ht 182.9 cm; Wt 61.0 kg
[~2017-10-07 04:44] MED LIST changes: -MCRK20 PO; -NICO21DI4 TD; -OXYC-292 PO; +POTA20TA16 PO
[2017-10-07] MEDS ORDERED: SODIUM CHLORIDE 0.9% 1000ML 1,000 ML IV STA (05:18)
[2017-10-07 05:45] LABS: BASO % 0.4 %; BASO ABS # 0.01 K/uL (0-0.2); HEMATOCRIT 38.7 % (42-52); HEMOGLOBIN 13.7 g/dL (14.0-18.0); IG# 0.01 K/uL (0.00-0.02); LYMPH % 27.8 %; LYMPH ABS # 0.74 K/uL (1.2-3.4); MEAN CORPUSCULAR HEMOGLOBIN 29.4 pg (25-34); MEAN CORPUSCULAR HGB CONC 35.4 g/dl (32-36); MEAN PLATELET VOLUME 8.6 fL (7.4-10.4); MONO % 13.2 %; MONO ABS # 0.35 K/uL (0.11-0.59); NEUT % 58.2 %; NEUT ABS # 1.55 K/uL (1.4-6.5); PLATELET COUNT 297 K/uL (130-400); RED CELL DISTRIBUTION WIDTH CV 13.2 % (11.5-14.5); RED CELL DISTRIBUTION WIDTH SD 38.4 fL (36.4-46.3); WHITE BLOOD COUNT 2.66 K/uL (4.8-10.8)
[2017-10-07 06:03] LABS: ALBUMIN 3.8 gm/dl (3.4-5.0); CALCIUM 9.6 mg/dl (8.5-10.1); CREATININE 1.08 mg/dl (0.60-1.40); POTASSIUM 4.9 mmol/L (3.5-5.1); TOTAL PROTEIN 8.6 gm/dl (6.4-8.2)
[2017-10-07] MEDS ORDERED: OPTIRAY 320 IV PRN (06:30)
--- NOTE | 2017-10-07 06:51 | DIAGNOSTIC IMAGING REPORT ---
ABDOMEN 2VIEW W/PA CHEST RTN HISTORY: 27 years-old Male abdominal pain acute generalized abdominal pain with nausea and vomiting. History of testicular cancer COMPARISON: Acute abdominal series radiographs 09/08/2017 TECHNIQUE: PA view of the chest with erect and supine views of the abdomen FINDINGS: Cardiomediastinal and hilar silhouettes are within normal limits. Left internal jugular [id number] catheter is seen with distal tip terminating in the region of the mid SVC. Cardiomediastinal and hilar silhouettes are within normal limits. There is no pneumothorax, pleural effusion, focal airspace consolidation or overt pulmonary edema. Bones of the chest appear grossly intact. No pneumoperitoneum identified. No pneumatosis. Mild gaseous distention involves the stomach and descending colon. There is moderate stool volume of the hepatic flexure and sigmoid colon with a nonobstructive bowel gas pattern. No urolith identified. Mild convex left curvature of the lumbar spine. Avascular necrosis of the left femoral head redemonstrated along with postsurgical changes of the proximal left femur. IMPRESSION: 1. No acute cardiopulmonary process. 2. Nonobstructive bowel gas pattern. 3. No pneumoperitoneum. The above report was generated using voice recognition software. It may contain grammatical, syntax or spelling errors. Electronically signed by: Juan Hunyh M.D. 10/07/2017 6:49 AM Dictated Date/Time: 10/07/2017 6:47 AM
[2017-10-07] MEDS ORDERED: NovoLIN-R INSULIN PER UNIT CHARGE IV STA (06:53)
--- NOTE | 2017-10-07 08:50 | EMERGENCY ROOM VISIT NOTE ---
History First contact with patient: 05:01 Chief Complaint: HYPERGLYCEMIA Stated Complaint: HYPERGLYCEMIA/NAUSEA Nursing Triage Summary: Pt brought in by EMS. Pt was here yesterday with abdominal pain. Pt remains with abdominal pain and has nausea and vomiting now. Pt is type I diabetic. Blood sugar were elevated. Pt also has testicular cancer and is receiving chemotherapy. Pt given NSS and Zofran 4 mg enroute. Pt also reports he ran out of his pain medication this weekend. He reports he has been taking more because they are not effective. History of Present Illness The patient is a 27 year old male who presents to the Emergency Room ALS with complaints of hyperglycemia and abdominal pain. He states "I don't have to explain it, I feel like shit." He describes his abdominal pain as "trembling, unbearable." The patient was seen here in the emergency department yesterday for similar pain, and refuses any evaluation after he was told he was not getting pain medicine. The patient admitted yesterday to taking approximately 100 mg oxycodone per day. Today, he states he has taken at least 20 mg. The patient is having difficulty staying awake throughout the interview, and is unable to finish a complete sentence during my exam. He does admit to having one now movement this morning, and states that was normal. She states approximately one hour ago, he checked his blood sugar noticed that it was elevated. He states he has not been taking any insulin, as his blood sugar was low 2 days ago. Able to obtain any other history from the patient, as he fell asleep and stopped answering questions. Review of Systems A complete 10 point review of systems was reviewed with the patient with pertinent positives and negatives as per history of present illness. All else were negative. Past Medical/Surgical History Medical Problems: (1) Diabetes (2) Intractable nausea and vomiting (3) Teratoma of pelvis (4) Testis cancer (5) Toe fracture Family History Diabetes mellitus Heart disease Hypertension Kidney disease Kidney stones Social History Smoking Status: Current Every Day Smoker Drug Use: none Marital Status: single Housing Status: lives with family Occupation Status: unemployed Current/Historical Medications Scheduled Amphetamine-Dextroamphetamine 20MG (Adderall 20MG), 20 MG PO BID Insulin Glargine (Basaglar Kwikpen), 21 UNITS SQ HS Insulin Lispro (Human) (Humalog), SQ UD Multivitamin (Multivitamin), 1 TAB PO QPM Potassium Ext Rel (Klor-Con), 20 MEQ PO DAILY Scheduled PRN Lorazepam (Ativan), 1 TAB PO UD PRN for NAUSEA/ANXIETY Ondansetron Hcl (Zofran), Unknown Dose PO DIRECTED PRN for Nausea Oxycodone Hcl (Oxycodone Hcl), 10 MG PO Q4 PRN for Pain Oxycodone Hcl (Oxycodone Hcl), 10 MG PO Q12 PRN for Pain Prochlorperazine Maleate (Compazine), 1 TAB PO UD PRN for Nausea Physical Exam Vital Signs Date Time Temp Pulse Resp B/P (MAP) Pulse Ox O2 Delivery O2 Flow Rate FiO2 10/07/17 08:00 94 18 128/74 97 Room Air 10/07/17 06:10 107 16 135/79 98 Room Air 10/07/17 04:59 100 10/07/17 04:51 37.2 106 16 113/78 98 Room Air Physical Exam VITALS: Vitals are noted on the nurse's note and reviewed by myself. Vital signs stable. GENERAL: This is a 27-year-old white male, in no acute distress, nondiaphoretic , well-developed well-nourished. The patient is extremely lethargic, and is unable to keep his eyes open throughout my interview and examination. He is cooperative, however complains when asked to move around during the exam. He will not open his eyes and states he is very tired, but continuously complains of pain. SKIN: The skin was without rashes, erythema, edema, or bruising. There is no tenting of the skin. Capillary reflex less than 2 seconds. HEAD: Normocephalic atraumatic. EARS: External auditory canals clear, tympanic membranes pearly sanchez without erythema or effusion bilaterally. EYES: Pupils equal round and reactive to light and accommodation. Conjunctivae without injection, sclerae without icterus. Extraocular movements intact. NOSE: Patent, turbinates without inflammation or discharge. No sinus tenderness. MOUTH: Mucous membranes moist. Tonsils are not enlarged. Pharynx without erythema or exudate. Uvula midline. Airway patent. Tongue does not deviate. NECK: Supple without nuchal rigidity. No lymphadenopathy. No thyromegaly. Cervical spine is nontender. No JVD. HEART: Regular rate and rhythm without murmurs gallops or rubs. LUNGS: Clear to auscultation bilaterally without wheezes, rales or rhonchi. No dullness to percussion. No retractions or accessory muscle use. ABDOMEN: Positive bowel sounds x 4. Normal tympanic percussion. Diffuse tenderness throughout the abdomen. The patient is unable to localize the pain. Soft, without masses or organomegaly. Duggan sign negative. Positive guarding. No rebound tenderness. MUSCULOSKELETAL: No muscle atrophy, erythema, or edema noted. Full range of motion without joint tenderness in all extremities. No tenderness to palpation. Strength 5/5 throughout. NEURO: Patient was alert and oriented to person place and time. Normal sensation to light and sharp touch. Deep tendon reflexes 2+ throughout. No focal neurological deficits. Medical Decision & Procedures ER Provider Diagnostic Interpretation: The patient's CBC showed leukocytosis of 2.66. This is slightly lower than previous labs. He is anemic with RBC 4.66, Hgb 13.7, and Hct 38.7. These values have improved since previous labs. Urinalysis positive for ketones and glucose. No signs of infection. CMP showed elevated anion gap of 18.0. Electrolytes were without significant abnormality. Blood glucose was elevated at 444. Total bilirubin was elevated at 1.1. Lipase negative at 60. Beta-hydroxybutyric Acid 61.37. ABDOMEN 2VIEW W/PA CHEST RTN HISTORY: 27 years-old Male abdominal pain acute generalized abdominal pain with nausea and vomiting. History of testicular cancer COMPARISON: Acute abdominal series radiographs 09/08/2017 TECHNIQUE: PA view of the chest with erect and supine views of the abdomen FINDINGS: Cardiomediastinal and hilar silhouettes are within normal limits. Left internal jugular [id number] catheter is seen with distal tip terminating in the region of the mid SVC. Cardiomediastinal and hilar silhouettes are within normal limits. There is no pneumothorax, pleural effusion, focal airspace consolidation or overt pulmonary edema. Bones of the chest appear grossly intact. No pneumoperitoneum identified. No pneumatosis. Mild gaseous distention involves the stomach and descending colon. There is moderate stool volume of the hepatic flexure and sigmoid colon with a nonobstructive bowel gas pattern. No urolith identified. Mild convex left curvature of the lumbar spine. Avascular necrosis of the left femoral head redemonstrated along with postsurgical changes of the proximal left femur. IMPRESSION: 1. No acute cardiopulmonary process. 2. Nonobstructive bowel gas pattern. 3. No pneumoperitoneum. Laboratory Results 10/07/17 04:33 Red Blood Count 4.66, Mean Corpuscular Volume 83.0, Mean Corpuscular Hemoglobin 29.4, Mean Corpuscular Hemoglobin Concent 35.4, Mean Platelet Volume 8.6, Neutrophils (%) (Auto) 58.2, Lymphocytes (%) (Auto) 27.8, Monocytes (%) (Auto) 13.2, Eosinophils (%) (Auto) 0.0, Basophils (%) (Auto) 0.4, Neutrophils # (Auto ) 1.55, Lymphocytes # (Auto) 0.74, Monocytes # (Auto) 0.35, Eosinophils # (Auto ) 0.00, Basophils # (Auto) 0.01 Test 10/07/17 04:33 10/07/17 06:35 10/07/17 07:47 10/07/17 08:40 White Blood Count 2.66 K/uL (4.8-10.8) Red Blood Count 4.66 M/uL (4.7-6.1) Hemoglobin 13.7 g/dL (14.0-18.0) Hematocrit 38.7 % (42-52) Mean Corpuscular Volume 83.0 fL (80-100) Mean Corpuscular Hemoglobin 29.4 pg (25-34) Mean Corpuscular Hemoglobin Concent 35.4 g/dl (32-36) Platelet Count 297 K/uL (130-400) Mean Platelet Volume 8.6 fL (7.4-10.4) Neutrophils (%) (Auto) 58.2 % Lymphocytes (%) (Auto) 27.8 % Monocytes (%) (Auto) 13.2 % Eosinophils (%) (Auto) 0.0 % Basophils (%) (Auto) 0.4 % Neutrophils # (Auto) 1.55 K/uL (1.4-6.5) Lymphocytes # (Auto) 0.74 K/uL (1.2-3.4) Monocytes # (Auto) 0.35 K/uL (0.11-0.59) Eosinophils # (Auto) 0.00 K/uL (0-0.5) Basophils # (Auto) 0.01 K/uL (0-0.2) RDW Standard Deviation 38.4 fL (36.4-46.3) RDW Coefficient of Variation 13.2 % (11.5-14.5) Immature Granulocyte % (Auto) 0.4 % Immature Granulocyte # (Auto) 0.01 K/uL (0.00-0.02) Est Creatinine Clear Calc Drug Dose 90.2 ml/min Total Bilirubin 1.1 mg/dl (0.2-1) Aspartate Amino Transf (AST/SGOT) 20 U/L (15-37) Alanine Aminotransferase (ALT/SGPT) 21 U/L (12-78) Alkaline Phosphatase 124 U/L (45-117) Total Protein 8.6 gm/dl (6.4-8.2) Albumin 3.8 gm/dl (3.4-5.0) Globulin 4.8 gm/dl (2.5-4.0) Albumin/Globulin Ratio 0.8 (0.9-2) Lipase 60 U/L (73-393) Beta-Hydroxybutyric Acid 61.37 mg/dL (0.2-2.81) Urine Color YELLOW Urine Appearance CLEAR (CLEAR) Urine pH 5.0 (4.5-7.5) Urine Specific [place] 1.028 (1.000-1.030) Urine Protein NEG (NEG) Urine Glucose (UA) 3+ (NEG) Urine Ketones 4+ (NEG) Urine Occult Blood NEG (NEG) Urine Nitrite NEG (NEG) Urine Bilirubin NEG (NEG) Urine Urobilinogen NEG (NEG) Urine Leukocyte Esterase NEG (NEG) Bedside Glucose 478 mg/dl (70-99) Medications Administered Medications (Trade) Dose Ordered Sig/Maddie Route Start Time Stop Time Status Last Admin Dose Admin Sodium Chloride 1,000 ml @ 999 mls/hr Q1H1M STAT IV 10/07/17 05:18 10/07/17 06:18 DC 10/07/17 05:18 999 MLS/HR Insulin Human Regular (novoLIN-R U-100 PER UNIT) 6 units NOW STAT IV 10/07/17 06:53 10/07/17 06:55 DC 10/07/17 07:25 6 UNITS ED Course The patient was seen and evaluated as above. He has already received a 1L Bolus NSS via EMS. Examination was performed to the best of my ability and the patient's cooperation. Labs were drawn. Labs reviewed by myself. The patient was given a second 1L Bolus NSS. X-ray obtained and reviewed by myself and Dr. Roa. This was concerning for some gastric vs. bowel distension. CT scan ordered. I discussed with the patient that I need him to drink PO Contrast in order to get a proper CT scan, and he states he will try, but he is very tired. The patient's BSG was re-checked. It was 489. He was given 6 units regular insulin. The patient was slow with drinking PO Contrast. I signed the patient out to Katherine Alarcon PA-C at the end of my shift. Medical Decision This is a 27-year-old male patient presents to the emergency department today complaining of hyperglycemia and abdominal pain. He has been here multiple times over the past few weeks, specifically daily for the past 3 days. He was here initially for hypoglycemia, returned yesterday for abdominal pain, and is back now today for hyperglycemia and abdominal pain. He does have a history of testicular cancer, and does report of abdominal mass. My examination was very limited, as the patient was uncooperative due to being very tired. The patient has not been taking his insulin consistently, as he noticed some low blood sugars earlier this week. I suspect his hyperglycemia is related to noncompliance with insulin. He does apparently have an appointment for today with his director informatics, per Dr. Cr's note from 2 days ago. The patient was signed out to Katherine Alarcon for further evaluation and management. Please see her dictation regarding ongoing management and medical decision making. Differential diagnosis includes hyperglycemia, DKA, hypoglycemia, ICH, epidural abscess, metastatic disease, bowel obstruction, appendicitis, diverticulitis, IBD, renal colic, PUD, biliary pathology, pancreatitis, mesenteric ischemia, aortic pathology, infections, genitourinary, UTI, perforated viscus, as well as others were entertained. Medication Reconcilliation Current Medication List: was personally reviewed by me Blood Pressure Screening Patient's blood pressure: Normal blood pressure Impression Primary Impression: Hyperglycemia Additional Impression: Abdominal pain Departure Information Referrals Bairon Cruz MD (PCP) Patient Instructions My [facility] Problem Qualifiers Additional Impression: Abdominal pain Abdominal location: generalized Qualified Codes: R10.84 - Generalized abdominal pain
--- NOTE | 2017-10-07 09:21 | DIAGNOSTIC IMAGING REPORT ---
CT SCAN OF THE ABDOMEN AND PELVIS WITH IV CONTRAST CLINICAL HISTORY: Nausea. Generalized abdominal pain. Testicular cancer. COMPARISON STUDY: Abdominal CT dated 09/17/2017. TECHNIQUE: Following the IV administration of 93 cc of Optiray 320, CT scan of the abdomen and pelvis is performed from the lung bases to the proximal femora. Images are reviewed in the axial, sagittal, and coronal planes. IV contrast was administered without complication. A dose lowering technique was utilized adhering to the principles of ALARA. FINDINGS: Lung bases: The heart is normal in size and without pericardial effusion. The lung bases are clear. There is a small hiatal hernia. Liver: The contrast-enhanced liver is normal in size, contour, and attenuation. There is no intrahepatic biliary ductal dilatation. The hepatic veins and portal veins are patent. Gallbladder: Unremarkable. Spleen: Normal in size and attenuation. Pancreas: Unremarkable. Adrenal glands: Unremarkable. Kidneys: The contrast enhanced kidneys are normal in size. There is moderate left-sided hydronephrosis, likely related to ureteral obstruction secondary to a left retroperitoneal mass. No hydronephrosis is seen on the right. The kidneys enhance symmetrically. Abdominal vasculature: The abdominal aorta is normal in course and caliber. Bowel: Moderate colonic fecal retention is observed. No bowel obstruction is seen. The appendix is not identified. Peritoneum: There is no intraperitoneal free air or abdominal ascites. Lymphadenopathy: Again seen is bulky confluent left retroperitoneal lymphadenopathy, which extends from the level of the left renal pelvis to the left iliac chain. This measures approximately 17 x 10 x 10 cm in aggregate dimension. Low attenuation within this adenopathy suggests a component of fat. This mass lesion encases the left ureter as well as the abdominal aorta this invades into the left psoas musculature. Pelvic viscera: The bladder, prostate, and seminal vesicles are normal as visualized. There is evidence of left-sided orchiectomy. Skeletal structures: No lytic or blastic lesions are seen. Posttraumatic deformity and postoperative change is identified in the left proximal femur. 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 Soft tissues: The patient appears cachectic. IMPRESSION: 1. No significant change in the appearance of a large bulky left retroperitoneal devin aggregate as detailed above measuring up to 17 cm. As compared to 09/17/2017 This is consistent with metastatic disease. 2. The retroperitoneal lymphadenopathy encases the left ureter and causes mild to moderate left-sided hydronephrosis. 3. The retroperitoneal lesion invades the left psoas musculature and encases the abdominal aorta. 4. No additional metastatic lesions are identified in the abdomen or pelvis. 5. Posttraumatic and postoperative change is identified in the left hip. There is avascular necrosis of the left femoral head. Electronically signed by: Thuan Wall M.D. 10/07/2017 9:19 AM Dictated Date/Time: 10/07/2017 9:13 AM
[2017-10-07 10:54] LABS: CALCIUM 8.9 mg/dl (8.5-10.1); CREATININE 0.96 mg/dl (0.60-1.40); POTASSIUM 4.3 mmol/L (3.5-5.1)
[2017-10-07] MEDS ORDERED: OXYCODONE HCL IR 5 MG TAB (IMMEDIATE RELEASE) PO STA (11:23)
[2017-10-07] MEDS ORDERED: INSULIN IV INFUSION PROTOCOL STA (11:32)
[2017-10-07] MEDS ORDERED: SODIUM CHLORIDE 0.9% 1000ML 1,000 ML IV ONE (11:32)
--- NOTE | 2017-10-07 11:32 | EMERGENCY ROOM VISIT NOTE ---
ED Visit Note First contact with patient: 09:05 This patient was signed out to me by Patricia Bautista PA-C at the end of her shift. At this time we're were awaiting a CAT scan of the abdomen and pelvis . CAT scan was interpreted by the radiologist as below. CT SCAN OF THE ABDOMEN AND PELVIS WITH IV CONTRAST CLINICAL HISTORY: Nausea. Generalized abdominal pain. Testicular cancer. COMPARISON STUDY: Abdominal CT dated 09/17/2017. TECHNIQUE: Following the IV administration of 93 cc of Optiray 320, CT scan of the abdomen and pelvis is performed from the lung bases to the proximal femora. Images are reviewed in the axial, sagittal, and coronal planes. IV contrast was administered without complication. A dose lowering technique was utilized adhering to the principles of ALARA. FINDINGS: Lung bases: The heart is normal in size and without pericardial effusion. The lung bases are clear. There is a small hiatal hernia. Liver: The contrast-enhanced liver is normal in size, contour, and attenuation. There is no intrahepatic biliary ductal dilatation. The hepatic veins and portal veins are patent. Gallbladder: Unremarkable. Spleen: Normal in size and attenuation. Pancreas: Unremarkable. Adrenal glands: Unremarkable. Kidneys: The contrast enhanced kidneys are normal in size. There is moderate left-sided hydronephrosis, likely related to ureteral obstruction secondary to a left retroperitoneal mass. No hydronephrosis is seen on the right. The kidneys enhance symmetrically. Abdominal vasculature: The abdominal aorta is normal in course and caliber. Bowel: Moderate colonic fecal retention is observed. No bowel obstruction is seen. The appendix is not identified. Peritoneum: There is no intraperitoneal free air or abdominal ascites. Lymphadenopathy: Again seen is bulky confluent left retroperitoneal lymphadenopathy, which extends from the level of the left renal pelvis to the left iliac chain. This measures approximately 17 x 10 x 10 cm in aggregate dimension. Low attenuation within this adenopathy suggests a component of fat. This mass lesion encases the left ureter as well as the abdominal aorta this invades into the left psoas musculature. Pelvic viscera: The bladder, prostate, and seminal vesicles are normal as visualized. There is evidence of left-sided orchiectomy. Skeletal structures: No lytic or blastic lesions are seen. Posttraumatic deformity and postoperative change is identified in the left proximal femur. 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 Soft tissues: The patient appears cachectic. IMPRESSION: 1. No significant change in the appearance of a large bulky left retroperitoneal devin aggregate as detailed above measuring up to 17 cm. As compared to 09/17/2017 This is consistent with metastatic disease. 2. The retroperitoneal lymphadenopathy encases the left ureter and causes mild to moderate left-sided hydronephrosis. 3. The retroperitoneal lesion invades the left psoas musculature and encases the abdominal aorta. 4. No additional metastatic lesions are identified in the abdomen or pelvis. 5. Posttraumatic and postoperative change is identified in the left hip. There is avascular necrosis of the left femoral head. Electronically signed by: Thuan Wall M.D. 10/07/2017 9:19 AM There is the patient's labs are reviewed. The patient is in DKA . No change from prior CT of 09/19/2017. The patient was given oxycodone 20 mg by mouth. ABG was ordered. [facility] hospitalist was consulted for admission. DIAGNOSIS: Metastatic testicular cancer Abdominal pain DKA TREATMENT PLAN: Admission by hospitalist
[2017-10-07] MEDS ORDERED: LORAZEPAM 2 MG/ML 1 ML VIAL IV PRN ×2 (11:45)
[2017-10-07] MEDS ORDERED: ACETAMINOPHEN 325 MG TAB PO PRN (11:45)
[2017-10-07] MEDS ORDERED: ALUMINUM/MAGNESIUM/SIMETH (MAALOX MAX) 30 ML UDC PO PRN (11:45)
[2017-10-07] MEDS ORDERED: DKA GOAL RANGE 150-250 mg/dl 1 EA ONE (11:45)
[2017-10-07] MEDS ORDERED: MoRPHine SULFATE 2 MG/ML CARP IV PRN (11:45)
[2017-10-07] MEDS ORDERED: DC ALL PREVIOUSLY ORDERED DIABETES MEDS ONE (11:45)
[2017-10-07] MEDS ORDERED: PHARMACY GLYCEMIC MGMT CONSULT PRN (11:45)
[2017-10-07] MEDS ORDERED: MODERATE STRESS LEVEL ONE (11:45)
[2017-10-07] MEDS ORDERED: LORAZEPAM INJ 0.25 MG in SYRINGE 0.125 ML IV PRN (11:45)
[2017-10-07] MEDS ORDERED: OXYCODONE HCL IR 5 MG TAB (IMMEDIATE RELEASE) PO PRN (11:45)
[2017-10-07] MEDS ORDERED: ONDANSETRON INJ 2 MG/ML 2 ML VIAL IV PRN (11:45)
[2017-10-07] MEDS ORDERED: MoRPHine SULFATE 4 MG/ML 1 ML CARP\\VIAL IV PRN (11:45)
[2017-10-07] MEDS ORDERED: MAGNESIUM HYDROXIDE SUSP 30 ML UDC PO PRN (11:45)
[2017-10-07] MEDS ORDERED: LORAZEPAM INJ 1 MG in SYRINGE 0.5 ML IV PRN (12:00)
--- NOTE | 2017-10-07 12:00 | History and Physical ---
History & Physical Date & Time of Service: Oct 07, 2017 at 11:54 Chief Complaint: Hyperglycemia/Nausea Primary Care Physician: Bairon Cruz MD History of Present Illness Source: patient, spouse 27-year-old male with progressive nonseminomatous testicular cancer so presented to the ER a few days ago with complaints of constipation at that point time he told the ER staff he was going to stop taking his insulin. He was advised to against this. The patient was given mag citrate he did have a good bowel movement however he became wrought with increased abdominal pain and fatigue headache and increased urination with excessive thirst he presents today in DKA with an anion gap of 18 and bicarbonate of 14. 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 He is scheduled for inpatient chemotherapy on October 09. 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 Family History Diabetes mellitus Heart disease Hypertension Kidney disease Kidney stones Social History Smoking Status: Current Every Day Smoker Drug Use: none Marital Status: single Housing status: lives with family Occupational Status: unemployed Multi-Drug Resistant Organisms History of MDRO: No Allergies Coded Allergies: No Known Allergies (Verified , 10/07/17) Home Medications Scheduled Amphetamine-Dextroamphetamine 20MG (Adderall 20MG), 20 MG PO BID Insulin Glargine (Basaglar Kwikpen), 21 UNITS SQ HS Insulin Lispro (Human) (Humalog), SQ UD Multivitamin (Multivitamin), 1 TAB PO QPM Potassium Ext Rel (Klor-Con), 20 MEQ PO DAILY Scheduled PRN Lorazepam (Ativan), 1 TAB PO UD PRN for NAUSEA/ANXIETY Ondansetron Hcl (Zofran), Unknown Dose PO DIRECTED PRN for Nausea Oxycodone Hcl (Oxycodone Hcl), 10 MG PO Q4 PRN for Pain Oxycodone Hcl (Oxycodone Hcl), 10 MG PO Q12 PRN for Pain Prochlorperazine Maleate (Compazine), 1 TAB PO UD PRN for Nausea Review of Systems ROS: Appears stated uncomfortable No double vision blurry vision No problems with speech or swallowing No palpitations, chest pain or pressure No Wheezing or breathing issues Diffuse abdominal pain plus nausea but no vomiting diarrhea decreased to no appetite No burning but does have urine urine frequency but no changes in color Chronic focal joint pain to the left hip but no muscle pain No skin rashes or oral lesions No unusual bruising or bleeding No focused back pain or numbness or loss of strength No changes in memory or confusion Physical Exam Vital Signs Date Time Temp Pulse Resp B/P (MAP) Pulse Ox O2 Delivery O2 Flow Rate FiO2 10/07/17 09:55 130 18 120/84 97 Room Air 10/07/17 09:35 98 10/07/17 08:00 94 18 128/74 97 Room Air 10/07/17 06:10 107 16 135/79 98 Room Air 10/07/17 04:59 100 10/07/17 04:51 37.2 106 16 113/78 98 Room Air General Appearance: + moderate distress, + thin Head: normocephalic, atraumatic Eyes: normal inspection, sclerae normal ENT: hearing grossly normal, pharynx normal Respiratory/Chest: chest non-tender, lungs clear, normal breath sounds Cardiovascular: no murmur, + tachycardia Abdomen/GI: normal bowel sounds, soft, no organomegaly, + tenderness Back: no CVA tenderness, no muscle spasm Extremities/Musculoskelatal: no pedal edema, normal range of motion Neurologic/Psych: alert, oriented x 3 Skin: normal color, warm/dry, no rash Diagnostics Laboratory Results Results Past 24 Hours Test 10/07/17 04:33 10/07/17 06:35 10/07/17 06:48 10/07/17 07:47 Range/Units White Blood Count 2.66 4.8-10.8 K/uL Red Blood Count 4.66 4.7-6.1 M/uL Hemoglobin 13.7 14.0-18.0 g/dL Hematocrit 38.7 42-52 % Mean Corpuscular Volume 83.0 80-100 fL Mean Corpuscular Hemoglobin 29.4 25-34 pg Mean Corpuscular Hemoglobin Concent 35.4 32-36 g/dl Platelet Count 297 130-400 K/uL Mean Platelet Volume 8.6 7.4-10.4 fL Neutrophils (%) (Auto) 58.2 % Lymphocytes (%) (Auto) 27.8 % Monocytes (%) (Auto) 13.2 % Eosinophils (%) (Auto) 0.0 % Basophils (%) (Auto) 0.4 % Neutrophils # (Auto) 1.55 1.4-6.5 K/uL Lymphocytes # (Auto) 0.74 1.2-3.4 K/uL Monocytes # (Auto) 0.35 0.11-0.59 K/uL Eosinophils # (Auto) 0.00 0-0.5 K/uL Basophils # (Auto) 0.01 0-0.2 K/uL RDW Standard Deviation 38.4 36.4-46.3 fL RDW Coefficient of Variation 13.2 11.5-14.5 % Immature Granulocyte % (Auto) 0.4 % Immature Granulocyte # (Auto) 0.01 0.00-0.02 K/uL Sodium Level 128 136-145 mmol/L Potassium Level 4.9 3.5-5.1 mmol/L Chloride Level 96 98-107 mmol/L Carbon Dioxide Level 14 21-32 mmol/L Anion Gap 18.0 3-11 mmol/L Blood Urea Nitrogen 27 7-18 mg/dl Creatinine 1.08 0.60-1.40 mg/dl Est Creatinine Clear Calc Drug Dose 90.2 ml/min Estimated GFR () 110.0 Estimated GFR (Non- 94.9 BUN/Creatinine Ratio 25.3 10-20 Random Glucose 444 70-99 mg/dl Calcium Level 9.6 8.5-10.1 mg/dl Total Bilirubin 1.1 0.2-1 mg/dl Aspartate Amino Transf (AST/SGOT) 20 15-37 U/L Alanine Aminotransferase (ALT/SGPT) 21 12-78 U/L Alkaline Phosphatase 124 45-117 U/L Total Protein 8.6 6.4-8.2 gm/dl Albumin 3.8 3.4-5.0 gm/dl Globulin 4.8 2.5-4.0 gm/dl Albumin/Globulin Ratio 0.8 0.9-2 Lipase 60 73-393 U/L Beta-Hydroxybutyric Acid 61.37 0.2-2.81 mg/dL Urine Color YELLOW Urine Appearance CLEAR CLEAR Urine pH 5.0 4.5-7.5 Urine Specific Waller 1.028 1.000-1.030 Urine Protein NEG NEG Urine Glucose (UA) 3+ NEG Urine Ketones 4+ NEG Urine Occult Blood NEG NEG Urine Nitrite NEG NEG Urine Bilirubin NEG NEG Urine Urobilinogen NEG NEG Urine Leukocyte Esterase NEG NEG Bedside Glucose 478 478 70-99 mg/dl Test 10/07/17 10:16 10/07/17 11:32 Range/Units Sodium Level 130 136-145 mmol/L Potassium Level 4.3 3.5-5.1 mmol/L Chloride Level 98 98-107 mmol/L Carbon Dioxide Level 14 21-32 mmol/L Anion Gap 18.0 3-11 mmol/L Blood Urea Nitrogen 26 7-18 mg/dl Creatinine 0.96 0.60-1.40 mg/dl Est Creatinine Clear Calc Drug Dose 101.5 ml/min Estimated GFR () 126.8 Estimated GFR (Non- 109.4 BUN/Creatinine Ratio 26.7 10-20 Random Glucose 437 70-99 mg/dl Calcium Level 8.9 8.5-10.1 mg/dl Beta-Hydroxybutyric Acid 53.79 0.2-2.81 mg/dL Diagnostic Radiology ct abd pelvis1. No significant change in the appearance of a large bulky left retroperitoneal devin aggregate as detailed above measuring up to 17 cm. As compared to 09/17/2017 This is consistent with metastatic disease. 2. The retroperitoneal lymphadenopathy encases the left ureter and causes mild to moderate left-sided hydronephrosis. 3. The retroperitoneal lesion invades the left psoas musculature and encases the abdominal aorta. 4. No additional metastatic lesions are identified in the abdomen or pelvis. 5. Posttraumatic and postoperative change is identified in the left hip. There is avascular necrosis of the left femoral head. CXR normal Impression Assessment and Plan 27-year-old male with progressive nonseminomatous testicular carcinoma here with DKA abdominal pain DKA the patiently placed on DKA protocol in telemetry with pharmacy glycemic oversight to transition back to subcutaneous insulin significant hydration is built into this treatment program Abdominal pain is likely secondary to his DKA, according to he and his family he did have a good bowel movement at home we'll maintain his MiraLAX and Colace Nonseminomatous testicular carcinoma, the patient is scheduled for inpatient chemotherapy this week typically seeing Dr. Cruz we'll consult Dr. Adair Hines to hopefully coordinate this with the resolution of his DKA DVT prevention Lovenox VTE Prophylaxis VTE Risk Assessment Done? Y/N: Yes Risk Level: Moderate Given or contraindicated: Enoxaparin (Lovenox)SQ
[2017-10-07] MEDS ORDERED: GLUCAGON FOR INJ 1 MG VIAL SQ PRN (12:15)
[2017-10-07] MEDS ORDERED: DEXTROSE 50% 50 ML SYR IV PRN (12:15)
[2017-10-07] MEDS ORDERED: GLUCOSE 10 TABS/TUBE PO PRN (12:15)
[2017-10-07] MEDS ORDERED: GLUCOSE 40% GEL 15 GM TUBE PO PRN (12:15)
[2017-10-07] MEDS ORDERED: INSULIN HUMAN REGULAR IV BOLUS 1.5 UNIT in SYRINGE 0 ML IV ONE (12:30)
[2017-10-07] MEDS ORDERED: INSULIN REGULAR 250 UNITS in SODIUM CHLORIDE 0.9% 250ML 250 ML IV SCH (12:30)
[2017-10-07 12:51] LABS: HEMOGLOBIN A1C 9.1 % (4.5-5.6)
--- NOTE | 2017-10-07 12:57 | Pharmacy Progress Note ---
Glycemic Control Intl Consult Date of Service Oct 07, 2017. Scope Glycemic Pharmacist consulted by Dr Otoole on 10/07/17 for glycemic control and to write orders per [facility] inpatient glycemic control protocol Objective Weight (Kilograms): 61.000 Accuchecks BSG (last 24hrs): Test 10/07/17 04:33 10/07/17 04:51 10/07/17 06:48 10/07/17 07:47 Random Glucose 444 mg/dl (70-99) Bedside Glucose 426 mg/dl (70-99) 478 mg/dl (70-99) 478 mg/dl (70-99) Test 10/07/17 10:16 10/07/17 12:27 Random Glucose 437 mg/dl (70-99) Laboratory Data (last 24hrs) Test 10/07/17 04:33 10/07/17 10:16 10/07/17 12:27 Anion Gap 18.0 mmol/L 18.0 mmol/L BUN/Creatinine Ratio 25.3 26.7 Blood Urea Nitrogen 27 mg/dl 26 mg/dl Creatinine 1.08 mg/dl 0.96 mg/dl Potassium Level 4.9 mmol/L 4.3 mmol/L Sodium Level 128 mmol/L 130 mmol/L White Blood Count 2.66 K/uL Red Blood Count 4.66 M/uL Hemoglobin 13.7 g/dL Hematocrit 38.7 % Mean Corpuscular Volume 83.0 fL Mean Corpuscular Hemoglobin 29.4 pg Mean Corpuscular Hemoglobin Concent 35.4 g/dl Platelet Count 297 K/uL Mean Platelet Volume 8.6 fL Neutrophils (%) (Auto) 58.2 % Lymphocytes (%) (Auto) 27.8 % Monocytes (%) (Auto) 13.2 % Eosinophils (%) (Auto) 0.0 % Basophils (%) (Auto) 0.4 % Neutrophils # (Auto) 1.55 K/uL Lymphocytes # (Auto) 0.74 K/uL Monocytes # (Auto) 0.35 K/uL Eosinophils # (Auto) 0.00 K/uL Basophils # (Auto) 0.01 K/uL HbA1c Test 10/07/17 04:33 Recent Pertinent Medications Outpatient Anti-diabetic Regimen: * Basaglar 21 units SQ HS + Humalog with meals * A1c = 9.1 % 10/07/17 Assessment & Plan ASSESSMENT: * 27 yr old T1DM admitted with DKA. PMH significant for testicular cancer. * Patient started on IV insulin infusion. Pharmacy will transition to SQ basal/ bolus regimen once patient has been adequately hydrated and there is evidence of DKA resolution. * Recent admission to [facility], September 2017. His BSGs were poorly controlled on average of 45-53 units per day, although patient was receiving once daily dexamethasone IV during this time. PLAN FOR INPATIENT GLYCEMIC CONTROL: * Continue IV insulin infusion per moderate stress protocol * Goal Range 150 - 250 mg/dl * In the critical care setting, continuous IV insulin infusion has been shown to be the best method for achieving glycemic targets. * Please note that the plan above was derived based on current level of insulin resistance and hospital stress. These recommendations are appropriate for inpatient admission only. Plan of care upon discharge will need to be reassessed to avoid potential outpatient hypo/hyperglycemia. Thank you.
[2017-10-07] MEDS ORDERED: INSULIN ASPART 100 UNITS/ML 3 ML PEN SC SCH (13:00)
[2017-10-07 13:04] LABS: CALCIUM 9.2 mg/dl (8.5-10.1); CREATININE 1.09 mg/dl (0.60-1.40); PHOSPHORUS 3.9 mg/dl (2.5-4.9); POTASSIUM 5.2 mmol/L (3.5-5.1)
[2017-10-07 13:29] VITALS: BP 132/73; PULSE 85; TEMP 36.5; O2SAT 98; BMI 18.2
[2017-10-07] MEDS ORDERED: SODIUM CHLORIDE 0.9% 1000ML 1,000 ML IV SCH (13:30)
[2017-10-07] MEDS ORDERED: PENDING NSS+20mEq KCL IVF SCH (14:00)
[2017-10-07] MEDS ORDERED: PENDING D5 1/2NS+20mEq KCL IVF SCH (14:00)
[2017-10-07 14:55] LABS: INR 1.1 (0.9-1.1)
[2017-10-07 15:39] VITALS: BP 125/88; PULSE 99; TEMP 36.5; O2SAT 100
[2017-10-07 16:00] VITALS: O2SAT 98
[2017-10-07 16:20] VITALS: Ht 182.9 cm; Wt 61.0 kg
[2017-10-07] MEDS ORDERED: MAGIC SWIZZLE PO PRN (17:15)
[2017-10-07] MEDS ORDERED: LIDOCAINE HCL 2% VISCOUS SOLN 60 ML, DiphenhydrAMINE HCL SYRUP 150 MG, ALUMINUM/MAGNESI... MT PRN ×4 (17:15)
[2017-10-07 17:19] LABS: CALCIUM 8.7 mg/dl (8.5-10.1); CREATININE 0.91 mg/dl (0.60-1.40); POTASSIUM 4.1 mmol/L (3.5-5.1)
[2017-10-07 17:26] LABS: PHOSPHORUS 2.4 mg/dl (2.5-4.9)
--- NOTE | 2017-10-07 17:50 | Discharge Instructions ---
Discharge Instructions Date of Service Oct 07, 2017. Admission Reason for Admission: Dka (Diabetic Ketoacidoses) Discharge Discharge Diagnosis / Problem: diabetic keto acidosis Discharge Goals Goal(s): Diagnostic testing, Therapeutic intervention Activity Recommendations Activity Limitations: as noted below Lifting Limitations: gradually increase as tolerated . Current Hospital Diet Patient's current hospital diet: Diabetes Type 1 Diet Discharge Diet Recommended Diet: Regular Diet Pending Studies Studies pending at discharge: yes List of pending studies: labs Laboratory Results Hemoglobin A1c Test 10/07/17 04:33 Range/Units Estimated Average Glucose 214 mg/dl Hemoglobin A1c 9.1 H 4.5-5.6 % Medical Emergencies . Who to Call and When: Medical Emergencies: If at any time you feel your situation is an emergency, please call 911 immediately. . Non-Emergent Contact Non-Emergency issues call your: Primary Care Provider Call Non-Emergent contact if: temperature is above 101, your pain is unusual for you . . "Provider Documentation" section prepared by Jeramy Otoole. . VTE Core Measure Inpt VTE Proph given/why not?: Enoxaparin (Lovenox)SQ
--- NOTE | 2017-10-07 17:55 | Discharge Summary ---
Discharge Summary Date of Service Oct 07, 2017. Discharge Summary Admission Date: Oct 07, 2017 at 11:36 Discharge Date: Oct 07, 2017 Discharge Disposition: Home Principal Diagnosis: dka metastatic testicular cancer Discharge Exam I visited the patient in his room prior to him leaving he seemed stressed but appropriate to make decisions he seemed to be in no significant discomfort without facial grimacing tachypnea he is able to ambulate out of the room without difficulty Hospital Course 27-year-old male with progressive nonseminomatous testicular carcinoma here with DKA abdominal pain As call to the pelletier is a patient was unsatisfied with his care was also family member who is an on and to wish to speak to the attending physician. The patient is complaints in the revolve around his opinion and appropriate pain control. The patient did have as needed pain control written for however he was solomnent and earlier in the shift nurse felt uncomfortable providing parenteral pain medicine due to his level of responsiveness. However as his DKA improved and the patient awoke his pain seemed to become significantly worse at that point time attempts were made use oral pain medicine and this did not seem to satisfy the patient and he would not even attempt to use it. At that point time he requests to leave he was informed that it was dangerous to his life to leave but he still left AGAINST MEDICAL ADVICE. Cardizem leaving I offered to move his room to [facility] where he had better experiences also getting a new nurse for him for this evening and to offer him parenteral opiate pain control despite this he said he was done with this place and he stormed out of the room leaving his aunt and behind previously in this stat DKA the patiently placed on DKA protocol in telemetry with pharmacy glycemic oversight to transition back to subcutaneous insulin significant hydration is built into this treatment program Abdominal pain is likely secondary to his DKA, according to he and his family he did have a good bowel movement at home we'll maintain his MiraLAX and Colace Nonseminomatous testicular carcinoma, the patient is scheduled for inpatient chemotherapy this week typically seeing Dr. Cruz we'll consult Dr. Adair Hines to hopefully coordinate this with the resolution of his DKA DVT prevention Lovenox Total Time Spent: Greater than 30 minutes This includes examination of the patient, discharge planning, medication reconciliation, and communication with other providers. Discharge Instructions Please refer to the electronic Patient Visit Report (Discharge Instructions) for additional information.
[2017-10-07] MEDS ORDERED: DOCUSATE SODIUM 100 MG CAP PO SCH (21:00)
[2017-10-07] MEDS ORDERED: POLYETHYLENE (MIRALAX) 17 GM PACK PO SCH (21:00)
[2017-10-08] MEDS ORDERED: ENOXAPARIN 40 MG/0.4 ML SYR SC SCH (09:00)
[2017-10-08] MEDS ORDERED: NICOTINE 21 MG/24 HR TDSY TD SCH (15:00)
== END 2017-10-07 18:08 | disposition left against medical advice (07) | DRG 639 ==
LOC: EDBD 04:44 → C.EDA 04:45 → C.2T 11:36 → ENRESERV 12:32
PROVIDERS: ADMIT Internal Medicine; ATTEND Internal Medicine
DX: E10.10 Type 1 diabetes mellitus with ketoacidosis without coma (principal); C62.90 Malignant neoplasm of unspecified testis, unspecified whether descended or undescended; F17.200 Nicotine dependence, unspecified, uncomplicated; Z79.899 Other long term (current) drug therapy; Z83.3 Family history of diabetes mellitus; Z82.49 Family history of ischemic heart disease and other diseases of the circulatory system; Z84.1 Family history of disorders of kidney and ureter

== ENCOUNTER 2018-08-13 08:32 | Inpatient (IN) ==
[2018-08-13 09:40] LABS: Basophils # (auto) 0.01 K/uL (0-0.2); Basophils % (auto) 0.1 %; Eosinophils # (auto) 0.03 K/uL (0-0.5); Eosinophils % (auto) 0.3 %; Hematocrit (blood only) 23.2 % (42-52); Hemoglobin 7.1 g/dL (14.0-18.0); Immature Granulocytes # (auto) 0.02 K/uL (0.00-0.02); Immature Granulocytes % (auto) 0.2 %; Lymphocytes # (auto) 0.84 K/uL (1.2-3.4); Lymphocytes % (auto) 8.2 %; Mean Corpuscular Hgb Conc 30.6 g/dL (32-36); Mean Corpuscular Volume 77.3 fL (80-100); Mean Platelet Volume 7.6 fL (7.4-10.4); Monocytes # (auto) 0.84 K/uL (0.11-0.59); Monocytes % (auto) 8.2 %; Neutrophils # (auto) 8.52 K/uL (1.4-6.5); Platelet Count 549 K/uL (130-400); RDW Coefficient of Variation 15.6 % (11.5-14.5); RDW Standard Deviation 44.7 fL (36.4-46.3); White Blood Count 10.26 K/uL (4.8-10.8)
[2018-08-13 10:03] LABS: Hypochromasia Present
[2018-08-13 10:12] LABS: BUN Creatinine Ratio 19.9 (10-20); Blood Urea Nitrogen 30 mg/dl (7-18); Calcium 7.8 mg/dl (8.5-10.1); Carbon Dioxide 27 mmol/L (21-32); Chloride 91 mmol/L (98-107); Est GFR (African American) 71.7; Est GFR (Non-African American) 61.8; Glucose 109 mg/dl (70-99); Sodium 128 mmol/L (136-145)
[2018-08-13 11:27] LABS: INR 1.1 (0.9-1.1); Prothrombin Time 11.1 Seconds (9.0-12.0)
[2018-08-13 11:41] LABS: Ferritin 642.1 ng/ml (8-388)
[2018-08-14 07:15] LABS: Hematocrit (blood only) 26.4 % (42-52); Hemoglobin 8.1 g/dL (14.0-18.0); Immature Granulocytes # (auto) 0.02 K/uL (0.00-0.02); Immature Granulocytes % (auto) 0.2 %; Lymphocytes # (auto) 0.25 K/uL (1.2-3.4); Lymphocytes % (auto) 2.6 %; Mean Corpuscular Hgb Conc 30.7 g/dL (32-36); Mean Corpuscular Volume 78.3 fL (80-100); Mean Platelet Volume 8.2 fL (7.4-10.4); Monocytes # (auto) 0.22 K/uL (0.11-0.59); Monocytes % (auto) 2.3 %; Neutrophils % (auto) 94.9 %; Platelet Count 426 K/uL (130-400); RDW Coefficient of Variation 16.8 % (11.5-14.5); RDW Standard Deviation 48.2 fL (36.4-46.3); Red Blood Count 3.37 M/uL (4.7-6.1); White Blood Count 9.69 K/uL (4.8-10.8)
[2018-08-14 07:41] LABS: BUN Creatinine Ratio 22.7 (10-20); Calcium 7.6 mg/dl (8.5-10.1); Creatinine Clr Calc Pharmacy 93.4 ml/min; Est GFR (African American) 87.3; Est GFR (Non-African American) 75.3; Potassium 4.9 mmol/L (3.5-5.1)
[2018-08-14 07:50] LABS: RBC Morphology Unremarkable
[2018-08-15 07:45] LABS: Hemoglobin 8.5 g/dL (14.0-18.0); Immature Granulocytes # (auto) 0.04 K/uL (0.00-0.02); Immature Granulocytes % (auto) 0.4 %; Lymphocytes # (auto) 0.63 K/uL (1.2-3.4); Lymphocytes % (auto) 6.9 %; Mean Corpuscular Hgb Conc 31.5 g/dL (32-36); Mean Corpuscular Volume 77.4 fL (80-100); Monocytes # (auto) 0.24 K/uL (0.11-0.59); Monocytes % (auto) 2.6 %; Neutrophils # (auto) 8.26 K/uL (1.4-6.5); Neutrophils % (auto) 90.1 %; Platelet Count 443 K/uL (130-400); RDW Coefficient of Variation 16.8 % (11.5-14.5); RDW Standard Deviation 47.3 fL (36.4-46.3); Red Blood Count 3.49 M/uL (4.7-6.1); White Blood Count 9.17 K/uL (4.8-10.8)
[2018-08-15 08:19] LABS: BUN Creatinine Ratio 30.4 (10-20); Calcium 7.3 mg/dl (8.5-10.1); Creatinine Clr Calc Pharmacy 93.7 ml/min; Est GFR (African American) 86.5; Est GFR (Non-African American) 74.6; Potassium 5.3 mmol/L (3.5-5.1)
[2018-08-15 08:43] LABS: RBC Morphology Unremarkable
[2018-08-15 14:47] LABS: BUN Creatinine Ratio 30.9 (10-20); Calcium 7.3 mg/dl (8.5-10.1); Creatinine Clr Calc Pharmacy 100.6 ml/min; Est GFR (African American) 94.2; Est GFR (Non-African American) 81.3
[2018-08-15 18:19] LABS: Appearance Urine Clear (Clear); Bilirubin Urine Negative (Negative); Color Urine Yellow; Glucose Urine UA Negative (Negative); Ketones Urine Trace (Negative); Leukocyte Esterase Urine Negative (Negative); Nitrite Urine Negative (Negative); Protein Urine Negative (Negative); Specific Gravity Urine 1.012 (1.000-1.030); Urobilinogen Urine Negative (Negative)
[2018-08-15 19:10] VITALS: BP 119/73; TEMP 97.9; O2SAT 93
[2018-08-16 00:14] VITALS: PULSE 100
== END 2018-08-15 23:50 | disposition left against medical advice (07) ==
LOC: 4E 08:32

== ENCOUNTER 2018-08-16 13:31 | Inpatient (IN) ==
[2018-08-16] MEDS ORDERED: SODIUM CHLORIDE 0.9% 1000ML 1,000 ML IV STA (13:41)
[2018-08-16] MEDS ORDERED: NICOTINE 14 MG/24 HR PATCH TD STA (13:42)
[2018-08-16] MEDS ORDERED: SODIUM CHLORIDE 0.9% 1000ML 1,000 ML IV SCH (13:45)
[2018-08-16] MEDS: HYDROmorphone INJ 0.5 MG/0.5 ML SYR IV PRN ×2 (14:14→15:11)
[2018-08-16 14:27] LABS: Basophils # (auto) 0.01 K/uL (0-0.2); Basophils % (auto) 0.1 %; Hematocrit (blood only) 26.3 % (42-52); Hemoglobin 8.3 g/dL (14.0-18.0); Immature Granulocytes # (auto) 0.02 K/uL (0.00-0.02); Immature Granulocytes % (auto) 0.2 %; Lymphocytes % (auto) 5.9 %; Mean Corpuscular Hgb Conc 31.6 g/dL (32-36); Mean Corpuscular Volume 77.1 fL (80-100); Mean Platelet Volume 8.4 fL (7.4-10.4); Monocytes # (auto) 0.05 K/uL (0.11-0.59); Monocytes % (auto) 0.4 %; Neutrophils % (auto) 93.4 %; Platelet Count 446 K/uL (130-400); RDW Coefficient of Variation 16.9 % (11.5-14.5); RDW Standard Deviation 48.1 fL (36.4-46.3); Red Blood Count 3.41 M/uL (4.7-6.1); White Blood Count 11.78 K/uL (4.8-10.8)
[2018-08-16] MEDS ORDERED: ALUMINUM/MAGNESIUM SUSP 30 ML UDC PO PRN (14:29)
--- NOTE | 2018-08-16 14:39 | History & Physical Report ---
Date of Service August 16, 2018 Assessment & Plan (1) Testicular cancer: Patient has noticed that this is testicular cancer he was undergoing chemotherapy he eloped from the floor and left AGAINST MEDICAL ADVICE last evening he returned to the abdominal pain we did check with oncology whether they wish to continue treatment they recommended readmission for this patient which will be brought in and be reevaluated for potential chemotherapy treatment (2) Abdominal distention: Patient is abdominal distention during his last admission was felt to be a bulky tumor with very little ascites (1 L). Continue to treat symptomatically with pain control with parenteral opiates and parenteral antiemetics (3) CKD (chronic kidney disease) stage 2, GFR 60-89 ml/min: Patient has chronic kidney disease this is likely also impacted by his poor appetite and general moderate protein malnutrition continue to support with IV fluids (4) Hyponatremia: This is been a persistent problem for the patient in the past usually has no untoward symptoms from it we will follow with serial laboratories especially while on normal saline infusion (5) DVT prophylaxis: Carlin apparent will be used History of Present Illness Chief Complaint: abdominal pain Primary Care Provider: Kade Kelsey III, Patient presents after looping last evening with increasing abdominal pain abdominal girth discomfort and early satiety will be brought back in our facility for supportive care and likely to initiate treatment for his anesthetic testicular carcinoma Allergies Allergy/AdvReac Type Severity Reaction Status Date / Time No Known Allergies Allergy Verified 08/16/18 14:31 Home Medications Home Medications Medication Instructions Recorded Confirmed Type alprazolam [Xanax] 0.5 mg PO BID PRN 07/25/18 08/16/18 History celecoxib [Celebrex] 200 mg PO DAILY PRN 07/25/18 08/16/18 History citalopram [Celexa] 10 mg PO DAILY 07/25/18 08/16/18 History dextroamphetamine-amphetamine 15 mg PO BID 07/25/18 08/16/18 History [Adderall] insulin degludec [Tresiba 21 units SUBCUT QPM 07/25/18 08/16/18 History FlexTouch U-100] insulin lispro [Admelog SoloStar See Label Instructions .ROUTE 07/25/18 History U-100 Insulin] .COMPLEX multivitamin 1 tab PO DAILY 07/25/18 08/16/18 History oxycodone 5 mg PO Q4 PRN 07/31/18 08/16/18 History Past Med/Surg History Medical History Cancer Testicular CA with mets Anxiety Diabetes (Chronic) Avascular necrosis of femur head, left Surgical History History of nephrectomy History of orchiectomy Social History Current Living Situation: Family Feels Safe at Home: Yes Smoking Status: Current every day smoker Tobacco Type: cigarettes Second Hand Exposure: No Hx Alcohol Use: Yes Alcohol type: beer Alcohol Intake Frequency: holidays/ special occasions only Hx Substance Use: Yes substance use type: marijuana Beliefs That Will Affect Care: None Preferred Language: [place] Review of Systems ROS: Thin poor appetite No double vision blurry vision No problems with speech or swallowing No palpitations, chest pain or pressure No Wheezing or breathing issues Diffuse abdominal pain plus nausea with no vomiting intermittent constipation decreased appetite and weight loss No burning urine urine frequency or changes in color No focal joint pain or muscle pain No skin rashes or oral lesions No unusual bruising or bleeding No focused back pain or numbness or loss of strength No changes in memory or confusion Physical Exam 2 Vital Signs (Past 24 Hours): Last Vital Signs Temp 36.7 C 08/16/18 13:39 Pulse 99 H 08/16/18 13:39 Resp 20 08/16/18 13:39 BP 126/76 08/16/18 13:39 Pulse Ox 98 08/16/18 13:41 The patient appeared malnourished with a protuberant abdomen Vital signs as documented. Head exam is unremarkable. No scleral icterus or corneal arcus noted Neck is without jugular venous distension, thyromegaly, or lymphademopathy Lungs are clear but decreased breath sounds at the bases Cardiac exam reveals Rhythm is regular. First and second heart sounds normal. No murmurs, rubs or gallops. Abdominal exam reveals normal bowel sounds, marketed distention firmness and dullness Extremities are moderately edematous and both pedal pulses are normal. Neurologic exam is A&Ox3, no focal deficits, strength is equal bilateral Skin is warm Dry without bruises or lesions _ (1) Testicular cancer Descendance of testis: unspecified Laterality: unspecified laterality Qualified Code(s): C62.90 - Malignant neoplasm of unspecified testis, unspecified whether descended or undescended
[2018-08-16 14:48] LABS: Albumin Level 1.4 gm/dl (3.4-5.0); Creatinine Clr Calc Pharmacy 105.9 ml/min; Est GFR (African American) 100.2; Est GFR (Non-African American) 86.4; Potassium 5.1 mmol/L (3.5-5.1); Rouleaux 1+
[2018-08-16 14:51] LABS: Albumin Globulin Ratio 0.3 (0.9-2); Bilirubin,Total 0.1 mg/dl (0.1-1); Globulin 4.3 gm/dl (2.5-4.0); Total Protein 5.7 gm/dl (6.4-8.2)
[2018-08-16] MEDS ORDERED: ONDANSETRON INJ 2 MG/ML 2 ML VIAL ONE (15:05)
[2018-08-16] MEDS ORDERED: MoRPHine SULFATE 2 MG/ML CARP IV PRN (15:58)
[2018-08-16] MEDS ORDERED: GLUCOSE 40% GEL 15 GM TUBE PO PRN (16:09)
[2018-08-16] MEDS ORDERED: GLUCOSE 10 TABS/TUBE PO PRN (16:09)
[2018-08-16] MEDS ORDERED: GLUCAGON FOR INJ 1 MG VIAL SQ PRN (16:09)
[2018-08-16] MEDS ORDERED: SODIUM CHLORIDE 0.9% 500 ML IV SCH (17:00)
[2018-08-16 17:18] LABS: INR 1.1 (0.9-1.1); Partial Thromboplastin Ratio 1.5; Partial Thromboplastin Time 39.2 Seconds (21.0-31.0); Prothrombin Time 11.2 Seconds (9.0-12.0)
[2018-08-16] MEDS: SODIUM CHLORIDE 0.9% 1000ML 1,000 ML IV SCH (17:31)
[2018-08-16] MEDS: INSULIN ASPART 100 UNITS/ML 3 ML PEN SC SCH ×2 (17:32→21:43)
[2018-08-16] MEDS: MoRPHine SULFATE 4 MG/ML 1 ML CARP\\VIAL IV PRN ×2 (17:33→21:44)
--- NOTE | 2018-08-16 18:37 | Emergency Department Note ---
Entered by Julieta Scott acting as a scribe for ED Provider Note CHIEF COMPLAINT: Abdominal pain HISTORY OF PRESENT ILLNESS: The patient is a 28 year old male who presents to the Emergency Room with complaints of worsening abdominal pain that started today. The patient reports he was admitted in the hospital yesterday for testicular cancer treatment. He notes he signed himself out because he was not getting along with the nurse. The patient states he is back because he wants to finish his treatment. He reports he has a port. The patient reports he has a lot of tumor in his abdomen and has been getting swelling and legs and testicles due to it. He rates his pain as 10/10 and is mostly in his pelvic area. The patient states he is taking pain medicine at home for his femur but it is not working well. The patient reports he feels dry. Pt denies LOC, headache, fevers, chills, diaphoresis, visual changes, neck pain , chest pain, breathing difficulties, nausea, vomiting, back pain, melena, hematochezia, urinary symptoms, numbness, weakness, lymphadenopathy, rash, or other complaints. REVIEW OF SYSTEMS: See HPI for pertinent positives and negatives. A total of ten systems were reviewed and were otherwise negative. PMHx/PSHx: Abdominal distention CKD Hyponatremia Urinary hesitancy Anemia SOCIAL HISTORY: Patient lives at home. PHYSICAL EXAM: GENERAL: Awake, alert, well-appearing, in no distress HENT: Normocephalic, atraumatic. Oropharynx unremarkable. EYES: Normal conjunctiva. Sclera non-icteric. NECK: Inspection normal. Non-tender. Supple. No nuchal rigidity. FROM. No masses. RESPIRATORY: Clear to auscultation. No wheezes. No rales. Normal respiratory effort. CARDIAC: Borderline tachycardic rate. Normal rhythm. No murmurs. No rubs. Extremities warm and well perfused. Pulses equal. No JVD. GI: Soft, distended with fluid wave. Diffusely tender to palpation. No rebound or guarding. No masses. RECTAL: Deferred. MUSCULOSKELETAL: Atraumatic. Chest examination reveals no tenderness. The back is symmetrical on inspection without obvious abnormality. There is no CVA tenderness to palpation. No joint edema. LOWER EXTREMITIES: Calves are equal size bilaterally and non-tender. 3+ edema. No discoloration. NEURO: Normal sensorium. No sensory or motor deficits noted. SKIN: No rash or jaundice noted. EMERGENCY DEPARTMENT COURSE: 133: Past medical records reviewed. The patient was evaluated in room B7, and a complete history and physical examination were performed. 1353: I talked to Dr. Win. He will touch base with Dr. Cruz. 1404: I talked to Dr. Cruz. He said to keep the patient in the hospital until Saturday. He will treat him primarily and said to treat him symptomatically until Saturday. 1407: I reviewed the patient's case with Dr. Otoole. He will evaluate the patient for further management. 1503: I reevaluated the patient and updated him. I discussed the treatment plan with the patient. The patient verbally agreed and understood. MEDICAL DECISION MAKING: The patient presented to the emergency department complaining of abdominal pain. Etiologies such as complication of malignancy, appendicitis, diverticulitis, obstruction, inflammatory bowel disease, renal colic, PUD, biliary pathology, pancreatitis, mesenteric ischemia, aortic pathology, infections, genitourinary, UTI, perforated viscus, as well as others were entertained. Prior records were reviewed. The patient was given IV Dilaudid for his symptoms. He was gently hydrated. On reassessment the patient was feeling better. I did discuss the case with hematology oncology, Dr. Herrera who discussed the case with his oncologist Dr. Cruz. They recommended treatment in the hospital. The patient left the hospital AMA yesterday. He will need to be readmitted again. I did discuss the case with internal medicine. They evaluated the patient in the ER and admitted him for further management. IMPRESSION: Generalized abdominal pain Metastatic testicular cancer PLAN: Admitted. The scribe's documentation has been prepared under my direction and personally reviewed by me in its entirety. I confirm that the note above accurately reflects all work, treatment, procedures, and medical decision making performed by me. Impression & Plan Abdominal pain, Testicular cancer Past Med/Surg History Medical History Cancer Testicular CA with mets Anxiety Diabetes (Chronic) Avascular necrosis of femur head, left Surgical History History of nephrectomy History of orchiectomy Social History (Reviewed 07/26/18 @ 12:00 by Bairon De Luna Current Living Situation: Family and Significant Other Other Information That Helps Us Care for You: No Feels Safe at Home: Yes Safety Concerns: Feels Safe At This Time Smoking Status: Current every day smoker Tobacco Type: cigarettes Cigarettes per Day: 20-30/day Tobacco Cessation Education Requested by Patient: No Hx Alcohol Use: No Hx Substance Use: Yes substance use type: marijuana Last Used Substance: Days ( ago) Last Used Substance Other:: couple days/week-lat use Aug 12, 2018 Beliefs That Will Affect Care: None Preferred Language: Ecuadorean Communication Ability: Effective In Mold Coater Required: No Results & Data Vital Signs Vital Signs - 24 hr 08/16/18 13:39 08/16/18 13:41 08/16/18 14:54 Temperature 36.7 C 36.6 C Temperature Source Oral Oral Sepsis Recent Fever Within 48 Hours No Sepsis New/Unexplained Change in Mental Status No Sepsis Action Taken by Nursing No Action Required Pulse Rate 99 H Pulse Rate [Left Finger] Pulse Rhythm [Left Finger] Pulse Strength [Left Finger] Respiratory Rate 20 Respiratory Effort / Characteristics Respiratory Depth Respiratory Pattern Blood Pressure 126/76 Blood Pressure [Left Arm] Blood Pressure Mean 92 Blood Pressure Mean [Left Arm] Blood Pressure Position [Left Arm] Pulse Oximetry 98 98 Oxygen Delivery Method Room Air Room Air Room Air 08/16/18 15:29 08/16/18 16:05 Temperature 36.6 C Temperature Source Oral Sepsis Recent Fever Within 48 Hours Sepsis New/Unexplained Change in Mental Status Sepsis Action Taken by Nursing Pulse Rate 98 H Pulse Rate [Left Finger] 102 H Pulse Rhythm [Left Finger] Regular Pulse Strength [Left Finger] Normal Respiratory Rate 20 18 Respiratory Effort / Characteristics Non-Labored Respiratory Depth Normal Respiratory Pattern Regular Blood Pressure 121/76 Blood Pressure [Left Arm] 126/78 Blood Pressure Mean Blood Pressure Mean [Left Arm] 94 Blood Pressure Position [Left Arm] Lying Pulse Oximetry 97 96 Oxygen Delivery Method Room Air Room Air Home Medications Current Medication List: was personally reviewed by me Laboratory Data Attestation: I reviewed the patient's lab results. Result diagrams: 08/16/18 14:10 08/16/18 14:10 Lab Results 08/16/18 08/16/18 08/16/18 Range/Units 14:10 14:10 14:10 WBC 11.78 H (4.8-10.8) K/uL RBC 3.41 L (4.7-6.1) M/uL Hgb 8.3 L (14.0-18.0) g/dL Hct 26.3 L (42-52) % MCV 77.1 L (80-100) fL MCH 24.3 L (25-34) pg MCHC 31.6 L (32-36) g/dL RDW Std Deviation 48.1 H (36.4-46.3) fL RDW Coeff of Zuleima 16.9 H (11.5-14.5) % Plt Count 446 H (130-400) K/uL MPV 8.4 (7.4-10.4) fL Immature Gran % (Auto) 0.2 % Neut % (Auto) 93.4 % Lymph % (Auto) 5.9 % [place] % (Auto) 0.4 % Eos % (Auto) 0.0 % Baso % (Auto) 0.1 % Immature Gran # (Auto) 0.02 (0.00-0.02) K/uL Neut # (Auto) 11.00 H (1.4-6.5) K/uL Lymph # (Auto) 0.70 L (1.2-3.4) K/uL [place] # (Auto) 0.05 L (0.11-0.59) K/uL Eos # (Auto) 0.00 (0-0.5) K/uL Baso # (Auto) 0.01 (0-0.2) K/uL Rouleaux 1+ PT 11.2 (9.0-12.0) Seconds INR 1.1 (0.9-1.1) APTT 39.2 H (21.0-31.0) Seconds PTT Ratio 1.5 Sodium 132 L (136-145) mmol/L Potassium 5.1 (3.5-5.1) mmol/L Chloride 98 (98-107) mmol/L Carbon Dioxide 25 (21-32) mmol/L Anion Gap 9.0 (3-11) BUN 42 H (7-18) mg/dl Creatinine 1.16 (0.6-1.4) mg/dl Est Cr Clr Drug Dosing 105.9 ml/min Est GFR ( Amer) 100.2 Est GFR (Non-Af Amer) 86.4 BUN/Creatinine Ratio 36.0 H (10-20) Glucose 148 H (70-99) mg/dl POC Glucose (70-99) Calcium 7.0 L (8.5-10.1) mg/dl Total Bilirubin 0.1 (0.1-1) mg/dl AST 37 (15-37) U/L ALT 14 (12-78) U/L Alkaline Phosphatase 84 (45-117) U/L Total Protein 5.7 L (6.4-8.2) gm/dl Albumin 1.4 L (3.4-5.0) gm/dl Globulin 4.3 H (2.5-4.0) gm/dl Albumin/Globulin Ratio 0.3 L (0.9-2) Lipase 37 L (73-393) U/L //18 Range/Units 17:06 WBC (4.8-10.8) K/uL RBC (4.7-6.1) M/uL Hgb (14.0-18.0) g/dL Hct (42-52) % MCV (80-100) fL MCH (25-34) pg MCHC (32-36) g/dL RDW Std Deviation (36.4-46.3) fL RDW Coeff of Zuleima (11.5-14.5) % Plt Count (130-400) K/uL MPV (7.4-10.4) fL Immature Gran % (Auto) % Neut % (Auto) % Lymph % (Auto) % [place] % (Auto) % Eos % (Auto) % Baso % (Auto) % Immature Gran # (Auto) (0.00-0.02) K/uL Neut # (Auto) (1.4-6.5) K/uL Lymph # (Auto) (1.2-3.4) K/uL [place] # (Auto) (0.11-0.59) K/uL Eos # (Auto) (0-0.5) K/uL Baso # (Auto) (0-0.2) K/uL Rouleaux PT (9.0-12.0) Seconds INR (0.9-1.1) APTT (21.0-31.0) Seconds PTT Ratio Sodium (136-145) mmol/L Potassium (3.5-5.1) mmol/L Chloride (98-107) mmol/L Carbon Dioxide (21-32) mmol/L Anion Gap (3-11) BUN (7-18) mg/dl Creatinine (0.6-1.4) mg/dl Est Cr Clr Drug Dosing ml/min Est GFR ( Amer) Est GFR (Non-Af Amer) BUN/Creatinine Ratio (10-20) Glucose (70-99) mg/dl POC Glucose 117 H (70-99) Calcium (8.5-10.1) mg/dl Total Bilirubin (0.1-1) mg/dl AST (15-37) U/L ALT (12-78) U/L Alkaline Phosphatase (45-117) U/L Total Protein (6.4-8.2) gm/dl Albumin (3.4-5.0) gm/dl Globulin (2.5-4.0) gm/dl Albumin/Globulin Ratio (0.9-2) Lipase (73-393) U/L Administered Medications Sodium Chloride (Nss 1000ml) 1,000 mls @ 125 mls/hr IV .Q8H STA Stop: 08/16/18 21:40 Last Infusion: 08/16/18 15:50 Dose: 0 mls/hr Admin: 08/16/18 14:14 Dose: 125 mls/hr Sodium Chloride (Nss 1000ml) 1,000 mls @ 125 mls/hr IV .Q8H RHONDA Stop: 09/15/18 16:59 Last Admin: 08/16/18 17:31 Dose: 125 mls/hr Insulin Aspart (Novolog Flexpen) 0 units SC ACHS RHONDA Stop: 09/15/18 16:59 Last Admin: 08/16/18 17:32 Dose: Not Given Morphine Sulfate (Morphine Sulfate) 4 mg IV Q4 PRN PRN Reason: Pain Stop: 08/30/18 15:57 Last Admin: 08/16/18 17:33 Dose: 4 mg Discontinued Medications Hydromorphone HCl (Dilaudid) 0.5 mg IV Q15M PRN PRN Reason: Pain Stop: 08/30/18 13:40 Last Admin: 08/16/18 15:11 Dose: 0.5 mg Admin: 08/16/18 14:14 Dose: 0.5 mg Sodium Chloride (Nss 1000ml) 1,000 mls @ 999 mls/hr IV .Q1H1M RHONDA Stop: 08/16/18 14:45 Last Infusion: 08/16/18 15:12 Dose: 0 mls/hr Admin: 08/16/18 14:14 Dose: 999 mls/hr Nicotine (Nicoderm Cq) 14 mg TD NOW STA Stop: 08/16/18 13:43 Last Admin: 08/16/18 14:14 Dose: 14 mg Ondansetron HCl (Zofran) Confirm Administered Dose 4 mg .ROUTE .STK-MED ONE Stop: 08/16/18 15:06 Last Admin: 08/16/18 15:11 Dose: 4 mg Blood Pressure Blood Pressure Findings: Normal blood pressure Blood Pressure Disposition: did not require urgent referral Discharge Plan Visit Data *Final* Discharge Date/Time: 08/16/18 15:29 Chief Complaint: Abdominal Pain ED Provider: Chris Noel Discharge Problem: Abdominal pain, Testicular cancer Patient Disposition: Admitted As Inpatient Discharge Instructions Interventions: ED Discharge Assessment Last Done: 08/16/18 15:29 The scribe's documentation has been prepared under my direction and personally reviewed by me in its entirety. I confirm that the note above accurately reflects all work, treatment, procedures, and medical decision making performed by me.
[2018-08-16] MEDS ORDERED: LIDOCAINE HCL VISCOUS SOLN 2% 15 ML UDC MT ONE (19:15)
[2018-08-16] MEDS: ENOXAPARIN INJ 40 MG/0.4 ML SYR SQ SCH (19:30)
[2018-08-16 20:23] LABS: Appearance Urine Clear (Clear); Bacteria Urine Automated 2+ (Negative); Bilirubin Urine Negative (Negative); Color Urine Yellow; Epithelial Cell Urine Auto 20-30 /lpf (0-5); Glucose Urine UA Negative (Negative); Ketones Urine Negative (Negative); Leukocyte Esterase Urine Negative (Negative); Nitrite Urine Negative (Negative); Protein Urine 1+ (Negative); Specific Gravity Urine 1.024 (1.000-1.030); Urobilinogen Urine Negative (Negative)
[2018-08-16 20:51] LABS: Amphetamines+Metham, Urine Neg (Neg); Barbiturates, Urine Neg (Neg); Benzodiazepine, Urine Pos (Neg); Cocaine, Urine Neg (Neg); MDMA (Ecstacy), Urine Neg (Neg); Methadone, Urine Neg (Neg); Opiate, Urine Pos (Neg); Phencyclidine, Urine Neg (Neg)
[2018-08-16] MEDS ORDERED: INSULIN GLARGINE 100 UNIT/ML VIAL SC SCH (21:00)
[2018-08-16] MEDS: INSULIN GLARGINE SOLOSTAR 100 UNITS/ML 3 ML PEN SC SCH (21:43)
[2018-08-16] MEDS: ALPRAZolam 0.5 MG TABLET PO SCH (21:44)
[2018-08-16] MEDS: OXYCODONE HCL IR 5 MG TAB (IMMEDIATE RELEASE) PO PRN (22:16)
[2018-08-16] MEDS: LORazepam 0.5 MG/1 ML VIAL IV PRN (23:07)
[2018-08-16] MEDS ORDERED: MoRPHine SULFATE 2 MG/ML CARP IV STA (23:24)
[2018-08-17] MEDS: MoRPHine SULFATE 4 MG/ML 1 ML CARP\\VIAL IV PRN ×3 (02:27→10:51)
[2018-08-17] MEDS: SODIUM CHLORIDE 0.9% 1000ML 1,000 ML IV SCH ×3 (02:27→21:13)
[2018-08-17] MEDS: OXYCODONE HCL IR 5 MG TAB (IMMEDIATE RELEASE) PO PRN ×3 (04:21→23:49)
[2018-08-17 05:42] LABS: Hematocrit (blood only) 26.4 % (42-52); Hemoglobin 8.2 g/dL (14.0-18.0); Mean Corpuscular Hgb Conc 31.1 g/dL (32-36); Mean Corpuscular Volume 76.7 fL (80-100); Mean Platelet Volume 8.7 fL (7.4-10.4); Platelet Count 401 K/uL (130-400); RDW Standard Deviation 48.1 fL (36.4-46.3); Red Blood Count 3.44 M/uL (4.7-6.1); White Blood Count 10.98 K/uL (4.8-10.8)
[2018-08-17 06:22] LABS: BUN Creatinine Ratio 40.8 (10-20); Creatinine Clr Calc Pharmacy 139.6 ml/min; Est GFR (African American) 137.4; Est GFR (Non-African American) 118.6; Potassium 4.2 mmol/L (3.5-5.1)
[2018-08-17] MEDS: CARBOHYDRATES FOR HYPOGLYCEMIA PO PRN (07:50)
[2018-08-17] MEDS: ALPRAZolam 0.5 MG TABLET PO SCH ×2 (07:55→20:52)
[2018-08-17] MEDS: CITALOPRAM 20 MG TAB PO SCH (07:55)
[2018-08-17] MEDS: INSULIN ASPART 100 UNITS/ML 3 ML PEN SC SCH ×4 (09:10→20:51)
[2018-08-17] MEDS: INSULIN GLARGINE SOLOSTAR 100 UNITS/ML 3 ML PEN SC SCH ×2 (09:11→20:51)
[2018-08-17] MEDS ORDERED: FUROSEMIDE 40 MG in SYRINGE 0 ML IV ONE (12:00)
[2018-08-17] MEDS: HYDROmorphone INJ 1 MG/ML SYRINGE IV PRN ×4 (12:37→21:58)
--- NOTE | 2018-08-17 13:19 | Hospitalist Progress Note ---
Date of Service August 17, 2018 Assessment & Plan (1) Testicular cancer: Patient has noticed that this is testicular cancer he was undergoing chemotherapy he eloped from the floor and left AGAINST MEDICAL ADVICE 08/1415 he returned to the ER complaining of abdominal pain we did check with oncology whether they wish to continue treatment they recommended readmission for this patient which will be brought in and be reevaluated for potential chemotherapy treatment (2) Abdominal distention: Patient is abdominal distention during his last admission was felt to be a bulky tumor with very little ascites (1 L). Continue to treat symptomatically with pain control with parenteral opiates and parenteral antiemetics (3) CKD (chronic kidney disease) stage 2, GFR 60-89 ml/min: Patient has chronic kidney disease this is likely also impacted by his poor appetite and general moderate protein malnutrition continue to support with IV fluids Patient had worsening of his swelling and fluids as we will be cut down as he has poor p.o. intake (4) Hyponatremia: This is been a persistent problem for the patient in the past usually has no untoward symptoms from its 132 while on intravenous saline (5) DVT prophylaxis: Lovenox will be used Subjective Patient's biggest problem is pain control scrotal edema and lower extremity edema otherwise he has no new problems or complaints is awaiting to talk to Dr. Cruz for possible start restarting chemotherapy on 08/18 Review of Systems ROS: He is weak tired and complains of pain in his abdomen and testicles No double vision blurry vision No problems with speech or swallowing No palpitations, chest pain or pressure No Wheezing or breathing issues Diffuse abdominal pain with mild nausea but no vomiting No burning urine scrotal and penile swelling and requiring straight cath continues No focal joint pain or muscle pain No skin rashes or oral lesions but marked swelling to his genitals No unusual bruising or bleeding No focused back pain or numbness or loss of strength No changes in memory or confusion Physical Exam 2 Vital Signs (Past 24 Hours): Last Vital Signs Temp 36.5 C 08/17/18 11:36 Pulse 76 08/17/18 11:36 Resp 18 08/17/18 11:36 BP 122/88 08/17/18 11:36 Pulse Ox 98 08/17/18 11:36 The patient appeared frail thin and malnourished Vital signs as documented. Head exam is unremarkable. No scleral icterus or corneal arcus noted Neck is without jugular venous distension, thyromegaly, or lymphademopathy Lungs are clear but markedly decreased at the bases Cardiac exam reveals Rhythm is regular. Abdominal exam reveals hypoactive bowel sounds distended dull to percussion diffusely tender Extremities are markedly edematous and both pedal pulses are difficult to palpate Neurologic exam is A&Ox3, no focal deficits, strength is globally reduced Skin is warm Dry without bruises or lesions _ (1) Testicular cancer Descendance of testis: unspecified Laterality: unspecified laterality Qualified Code(s): C62.90 - Malignant neoplasm of unspecified testis, unspecified whether descended or undescended
[2018-08-17] MEDS ORDERED: CONSULT PHARMACY STA (14:03)
[2018-08-17] MEDS ORDERED: VANCOMYCIN HCL 2,000 MG in SODIUM CHLORIDE 0.9% 500 ML IV STA (14:34)
[2018-08-17] MEDS ORDERED: Nursing to Pharmacy Communication ONE (15:57)
[2018-08-17] MEDS ORDERED: VANCOMYCIN CONSULT ACTIVE PRN (16:20)
--- NOTE | 2018-08-17 16:30 | Pharmacy Report ---
Pharmacy Abx Initial Consult - Date of Service August 17, 2018 - Pharmacy Dosing Scope Date of Consult: 08/17/18 Consultation requested by: Dr. Otoole Pharmacy is consulted to initiate Vancomycin IV dosing therapy, order appropriate labs and adjust drug dose/frequency. - Subjective The patient is a 28 year old M admitted on 08/16/18 14:29. - Objective Height: 6 ft Weight: 81 kg (BMI 24.2) Vital Signs (Past 12hrs): Vital Signs Temp Pulse Resp BP Pulse Ox 08/17/18 15:22 36.8 C 83 18 126/84 98 08/17/18 11:36 36.5 C 76 18 122/88 98 08/17/18 07:13 36.5 C 89 18 122/82 96 Lab Results (24hrs): Laboratory Tests (24 Hours) 08/17/18 08/17/18 04:53 04:53 WBC 10.98 H Creatinine 0.88 Est Cr Clr Drug Dosing 139.6 - Risk Factors for Resistance * Hospitalization for 48 hours or more within the past 90 days * Immunocompromised (chemotherapy) * - Assessment & Plan Assessment 28 year old M patient was initially admitted and left AMA on 08/15/18. History of testicular CA currently undergoing chemotherapy. He returned to ER complaining of abdominal pain. Patient is weak, tired, and complains of pain in his abdomen and testicles. Plan Vancomycin for treatment of UTI Vancomycin IV * Estimated PK Parameters: Vd 0.7 L/kg, Abelino 0.104 hr-1, t1/2 6.7hr * Loading dose: 2000 mg (~ 25 mg/kg) * Maintenance dose: 1250 mg IV (~15.4 mg/kg) every 8 hours * Goal trough level : 10 to 15 mcg/mL * Trough level ordered for 08/18/18 @ 2330 Pharmacy will continue to follow and will adjust dose/frequency as necessary. Thank you.
[2018-08-17] MEDS: ENOXAPARIN INJ 40 MG/0.4 ML SYR SQ SCH (20:50)
[2018-08-17] MEDS: VANCOMYCIN HCL 1,250 MG in SODIUM CHLORIDE 0.9% 250 ML IV SCH (23:51)
[2018-08-18] MEDS: HYDROmorphone INJ 1 MG/ML SYRINGE IV PRN ×7 (01:11→19:15)
[2018-08-18 05:56] LABS: Hematocrit (blood only) 27.2 % (42-52); Hemoglobin 8.6 g/dL (14.0-18.0); Mean Corpuscular Hgb Conc 31.6 g/dL (32-36); Mean Corpuscular Volume 76.2 fL (80-100); Mean Platelet Volume 8.7 fL (7.4-10.4); Platelet Count 366 K/uL (130-400); RDW Coefficient of Variation 16.9 % (11.5-14.5); RDW Standard Deviation 47.8 fL (36.4-46.3); Red Blood Count 3.57 M/uL (4.7-6.1); White Blood Count 10.58 K/uL (4.8-10.8)
[2018-08-18 06:33] LABS: BUN Creatinine Ratio 39.7 (10-20); Calcium 7.5 mg/dl (8.5-10.1); Creatinine Clr Calc Pharmacy 136.5 ml/min; Est GFR (African American) 136.1; Est GFR (Non-African American) 117.5; Potassium 4.3 mmol/L (3.5-5.1)
[2018-08-18] MEDS: VANCOMYCIN HCL 1,250 MG in SODIUM CHLORIDE 0.9% 250 ML IV SCH ×2 (07:55→15:55)
[2018-08-18] MEDS: INSULIN ASPART 100 UNITS/ML 3 ML PEN SC SCH ×4 (08:54→21:26)
[2018-08-18] MEDS: ALPRAZolam 0.5 MG TABLET PO SCH ×2 (09:20→20:21)
[2018-08-18] MEDS: CITALOPRAM 20 MG TAB PO SCH (09:20)
[2018-08-18] MEDS: SODIUM CHLORIDE 0.9% 1000ML 1,000 ML IV SCH (11:50)
[2018-08-18] MEDS: OXYCODONE HCL IR 5 MG TAB (IMMEDIATE RELEASE) PO PRN ×2 (13:59→20:21)
[2018-08-18] MEDS: LORazepam 0.5 MG/1 ML VIAL IV PRN (14:47)
[2018-08-18] MEDS: HEPARIN 100 UNIT/ML 5ML FLUSH FLUSH PRN ×3 (15:18→22:14)
[2018-08-18] MEDS: DEXAMETHASONE CONC 3.75 MG, NYSTATIN 30 ML, DiphenhydrAMINE Syrup 300 MG, ORA-SWEET SYR... PO SCH ×3 (16:26→21:28)
--- NOTE | 2018-08-18 18:22 | Hospitalist Progress Note ---
Date of Service August 18, 2018 Assessment & Plan (1) Testicular cancer: (2) Abdominal distention: (3) CKD (chronic kidney disease) stage 2, GFR 60-89 ml/min: (4) Hyponatremia: (5) DVT prophylaxis: 28-year-old white male admitted on August 17, 2018 because of testis cancer and abdominal distention likely from cancer metastases, he was admitted on August 16, 2018 for the same condition but he was eloped on the day of admission Testicular cancer: Pending reevaluated for potential chemotherapy treatment Abdominal distention: Likely to be a bulky tumor with some ascites, however patient reported no ascites fluid was removed before, Chronic kidney disease stage 2, GFR 60-89 ml/min: I will discontinue IV fluid because he was feeling lower extremity more swelling and scrotal swelling Hyponatremia we will follow-up, DVT prophylaxis with Lovenox Discussed with patient answered all questions, Subjective Reported significant pain about 6 out of 10 because of the distention of abdomen , Poor appetite, denies nausea vomiting, diarrhea constipation, denies fever and chill, Review of Systems Constitutional: Positive weakness, or fatigue Respiratory: no cough, sputum, wheezing, or dyspnea on exertion Cardiac: No chest pain, No orthopnea, No PND, Abdomen: See HPI, Musculoskeletal: Positive lower extremity swelling, no joint pain, No muscle pain, No calf pain, No problem reported : No dysuria, No urinary frequency, No incontinence, No hematuria Neurologic: No paralysis, No weakness, No numbness/tingling, Psychiatric: No depression symptoms, No anhedonism, No anxiety, No insomnia, No substance abuse Heme: No abnormal bleeding/bruising, No clotting problems, No swollen lymph nodes, No night sweats Skin: No rash, No itch, No new/changing skin lesions, No color change, No bleeding Physical Exam 2 Vital Signs (Past 24 Hours): Last Vital Signs Temp 36.7 C 08/18/18 15:34 Pulse 111 H 08/18/18 15:34 Resp 18 08/18/18 15:34 BP 122/74 08/18/18 15:34 Pulse Ox 95 08/18/18 15:34 Physical Exam: General Appearance: Frail, pale, chronically ill looking, WD/WN , no apparent distress, Eyes: normal inspection, PERRL, EOMI, sclerae normal ENT: normal ENT inspection, hearing grossly normal, pharynx normal Neck: supple, no adenopathy, thyroid normal, no JVD, no carotid bruits, trachea midline Respiratory/Chest: chest non-tender, normal breath sounds, no respiratory distress, no accessory muscle use, breath sounds, rales, wheezing Cardiovascular: regular rate, rhythm, no JVD, no murmur Abdomen: Distended, firm, positive tender, Extremities: 3+ edema, normal range of motion, non-tender, normal inspection, joint has no limited range of motion, capillary refill is normal, no cyanosis clubbing Neurologic/Psychiatric: promotions assistant sales marketing II-XII nml as tested, no motor/sensory deficits, alert, normal mood/affect, oriented x 3 Skin: normal color, warm/dry, no rash Lymphatic: no adenopathy Results & Data Laboratory Results Laboratory Results - last 24 hr 08/17/18 08/18/18 08/18/18 20:28 05:28 05:28 WBC 10.58 RBC 3.57 L Hgb 8.6 L Hct 27.2 L MCV 76.2 L MCH 24.1 L MCHC 31.6 L RDW Std Deviation 47.8 H RDW Coeff of Zuleima 16.9 H Plt Count 366 MPV 8.7 Sodium 133 L Potassium 4.3 Chloride 99 Carbon Dioxide 24 Anion Gap 10.0 BUN 36 H Creatinine 0.90 Est Cr Clr Drug Dosing 136.5 Est GFR ( Amer) 136.1 Est GFR (Non-Af Amer) 117.5 BUN/Creatinine Ratio 39.7 H Glucose 97 POC Glucose 151 H Calcium 7.5 L 08/18/18 08/18/18 08/18/18 07:34 11:47 16:57 WBC RBC Hgb Hct MCV MCH MCHC RDW Std Deviation RDW Coeff of Zuleima Plt Count MPV Sodium Potassium Chloride Carbon Dioxide Anion Gap BUN Creatinine Est Cr Clr Drug Dosing Est GFR ( Amer) Est GFR (Non-Af Amer) BUN/Creatinine Ratio Glucose POC Glucose 102 H 108 H 177 H Calcium Microbiology 08/16/18 20:00 Urine,Clean Catch Urine Culture - Final Coag negative Staphylococcus _ (1) Testicular cancer Descendance of testis: unspecified Laterality: unspecified laterality Qualified Code(s): C62.90 - Malignant neoplasm of unspecified testis, unspecified whether descended or undescended
[2018-08-18] MEDS: ENOXAPARIN INJ 40 MG/0.4 ML SYR SQ SCH (19:19)
[2018-08-18] MEDS: INSULIN GLARGINE SOLOSTAR 100 UNITS/ML 3 ML PEN SC SCH (21:26)
[2018-08-18] MEDS: HYDROmorphone INJ 2 MG/ML SYR/VIAL IV PRN (22:13)
[2018-08-18] MEDS ORDERED: VANCOMYCIN TROUGH ONE (23:30)
[2018-08-19] MEDS: HYDROmorphone INJ 2 MG/ML SYR/VIAL IV PRN ×7 (01:51→20:46)
[2018-08-19] MEDS: HEPARIN 100 UNIT/ML 5ML FLUSH FLUSH PRN ×4 (01:54→09:27)
[2018-08-19] MEDS: DEXAMETHASONE CONC 3.75 MG, NYSTATIN 30 ML, DiphenhydrAMINE Syrup 300 MG, ORA-SWEET SYR... PO SCH ×6 (01:58→20:48)
[2018-08-19] MEDS: OXYCODONE HCL IR 5 MG TAB (IMMEDIATE RELEASE) PO PRN ×2 (04:39→12:04)
[2018-08-19] MEDS: CITALOPRAM 20 MG TAB PO SCH (08:11)
[2018-08-19] MEDS: ALPRAZolam 0.5 MG TABLET PO SCH ×2 (08:11→20:52)
[2018-08-19 08:47] LABS: Calcium 7.3 mg/dl (8.5-10.1); Creatinine Clr Calc Pharmacy 149.8 ml/min; Est GFR (African American) 141.5
[2018-08-19] MEDS: INSULIN ASPART 100 UNITS/ML 3 ML PEN SC SCH ×4 (09:01→20:48)
[2018-08-19 09:02] LABS: Eosinophils # (auto) 0.03 K/uL (0-0.5); Eosinophils % (auto) 1.1 %; Hemoglobin 8.2 g/dL (14.0-18.0); Immature Granulocytes # (auto) 0.02 K/uL (0.00-0.02); Immature Granulocytes % (auto) 0.8 %; Lymphocytes # (auto) 0.35 K/uL (1.2-3.4); Lymphocytes % (auto) 13.3 %; Mean Corpuscular Hgb Conc 31.5 g/dL (32-36); Mean Corpuscular Volume 75.6 fL (80-100); Mean Platelet Volume 8.5 fL (7.4-10.4); Monocytes # (auto) 0.01 K/uL (0.11-0.59); Monocytes % (auto) 0.4 %; Neutrophils # (auto) 2.22 K/uL (1.4-6.5); Neutrophils % (auto) 84.4 %; Platelet Count 297 K/uL (130-400); RBC Morphology Unremarkable; RDW Standard Deviation 47.5 fL (36.4-46.3); Red Blood Count 3.44 M/uL (4.7-6.1); White Blood Count 2.63 K/uL (4.8-10.8)
[2018-08-19] MEDS: LORazepam 0.5 MG/1 ML VIAL IV PRN ×2 (09:25→16:18)
[2018-08-19] MEDS ORDERED: FUROSEMIDE 10 MG in SYRINGE 0 ML IV ONE (09:27)
--- NOTE | 2018-08-19 09:32 | Hospitalist Progress Note ---
Date of Service August 19, 2018 Assessment & Plan (1) Testicular cancer: (2) Abdominal distention: (3) CKD (chronic kidney disease) stage 2, GFR 60-89 ml/min: (4) Hyponatremia: (5) DVT prophylaxis: 28-year-old white male admitted on August 17, 2018 because of testis cancer and abdominal distention likely from cancer metastases, he was admitted on August 16, 2018 for the same condition but he was eloped on the day of admission Testicular cancer with metastasis: Oncology input appreciated, patient requires 3 additional doses of the cisplatin, ifosfamide, and Mesna, blood medicine today for chemo, patient required daily labs while he is on treatment, can be ready to be discharged on Saturday. Abdominal distention: Likely to be a bulky tumor with some ascites, discussed possible fluid removal, discussed the risk and benefit of fluid removal, will hold the procedure of paracentesis for now Chronic kidney disease stage 2, GFR 60-89 ml/min: 3+ edema and scrotal edema, likely because of hypoalbuminemia , try small dose of Lasix for comfortable today Hyponatremia we will follow-up, DVT prophylaxis with Lovenox Discussed with patient answered all questions, Ativan as needed for anxiety, Subjective Anxious today, needed Ativan, Only drink of water, not eating meal because of abdomen distended, feeling full, not able to eat, Report has some swelling scrotal , and Lower extremity swelling too, denies nausea vomiting diarrhea or constipation Review of Systems Constitutional: Positive weakness, or fatigue Respiratory: no cough, sputum, wheezing, or dyspnea on exertion Cardiac: No chest pain, No orthopnea, No PND, Abdomen: See HPI, Musculoskeletal: Positive lower extremity swelling, no joint pain, No muscle pain, No calf pain, No problem reported : No dysuria, No urinary frequency, No incontinence, No hematuria Neurologic: No paralysis, No weakness, No numbness/tingling, Psychiatric: No depression symptoms, No anhedonism, No anxiety, No insomnia, No substance abuse Heme: No abnormal bleeding/bruising, No clotting problems, No swollen lymph nodes, No night sweats Skin: No rash, No itch, No new/changing skin lesions, No color change, No bleeding Physical Exam 2 Vital Signs (Past 24 Hours): Last Vital Signs Temp 37.1 C 08/19/18 07:00 Pulse 82 08/19/18 07:00 Resp 20 08/19/18 07:00 BP 132/81 08/19/18 07:00 Pulse Ox 97 08/19/18 07:00 Physical Exam: General Appearance: Frail, pale, thin, chronically ill looking, WD/WN, no apparent distress, Eyes: normal inspection, PERRL, EOMI, sclerae normal ENT: normal ENT inspection, hearing grossly normal, pharynx normal Neck: supple , thyroid normal, no JVD, no carotid bruits, trachea midline Respiratory/Chest: chest non-tender, normal breath sounds, no respiratory distress, no accessory muscle use, breath sounds, rales, wheezing Cardiovascular: regular rate, rhythm, no JVD, no murmur Abdomen: Distended, firm, positive tender, Extremities: 3+ edema, normal range of motion, non-tender, normal inspection, joint has no limited range of motion, capillary refill is normal, no cyanosis clubbing Neurologic/Psychiatric: can striper II-XII nml as tested, no motor/sensory deficits, alert, normal mood/affect, oriented x 3 Skin: normal color, warm/dry, no rash Lymphatic: no adenopathy Results & Data Laboratory Results Laboratory Results - last 24 hr 08/18/18 08/18/18 08/19/18 20:53 23:58 07:51 WBC 2.63 L RBC 3.44 L Hgb 8.2 L Hct 26.0 L MCV 75.6 L MCH 23.8 L MCHC 31.5 L RDW Std Deviation 47.5 H RDW Coeff of Zuleima 17.0 H Plt Count 297 MPV 8.5 Immature Gran % (Auto) 0.8 Neut % (Auto) 84.4 Lymph % (Auto) 13.3 Sac % (Auto) 0.4 Eos % (Auto) 1.1 Baso % (Auto) 0.0 Immature Gran # (Auto) 0.02 Neut # (Auto) 2.22 Lymph # (Auto) 0.35 L Sac # (Auto) 0.01 L Eos # (Auto) 0.03 Baso # (Auto) 0.00 RBC Morphology Unremarkable Sodium Potassium Chloride Carbon Dioxide Anion Gap BUN Creatinine Est Cr Clr Drug Dosing Est GFR ( Amer) Est GFR (Non-Af Amer) BUN/Creatinine Ratio Glucose POC Glucose 203 H Calcium Phosphorus Magnesium Vancomycin Trough 32.4 08/19/18 08/19/18 08/19/18 07:51 07:54 07:55 WBC RBC Hgb Hct MCV MCH MCHC RDW Std Deviation RDW Coeff of Zuleima Plt Count MPV Immature Gran % (Auto) Neut % (Auto) Lymph % (Auto) Sac % (Auto) Eos % (Auto) Baso % (Auto) Immature Gran # (Auto) Neut # (Auto) Lymph # (Auto) Sac # (Auto) Eos # (Auto) Baso # (Auto) RBC Morphology Sodium 132 L Potassium 4.0 Chloride 99 Carbon Dioxide 24 Anion Gap 8.0 BUN 33 H Creatinine 0.82 Est Cr Clr Drug Dosing 149.8 Est GFR ( Amer) 141.5 Est GFR (Non-Af Amer) 122.0 BUN/Creatinine Ratio 40.0 H Glucose 54 L POC Glucose 66 L* 71 Calcium 7.3 L Phosphorus 3.0 Magnesium 2.0 Vancomycin Trough 08/19/18 08/19/18 08/19/18 08:17 11:40 16:35 WBC RBC Hgb Hct MCV MCH MCHC RDW Std Deviation RDW Coeff of Zuleima Plt Count MPV Immature Gran % (Auto) Neut % (Auto) Lymph % (Auto) Sac % (Auto) Eos % (Auto) Baso % (Auto) Immature Gran # (Auto) Neut # (Auto) Lymph # (Auto) Sac # (Auto) Eos # (Auto) Baso # (Auto) RBC Morphology Sodium Potassium Chloride Carbon Dioxide Anion Gap BUN Creatinine Est Cr Clr Drug Dosing Est GFR ( Amer) Est GFR (Non-Af Amer) BUN/Creatinine Ratio Glucose POC Glucose 110 H 72 65 L* Calcium Phosphorus Magnesium Vancomycin Trough 08/19/18 17:03 WBC RBC Hgb Hct MCV MCH MCHC RDW Std Deviation RDW Coeff of Zuleima Plt Count MPV Immature Gran % (Auto) Neut % (Auto) Lymph % (Auto) Sac % (Auto) Eos % (Auto) Baso % (Auto) Immature Gran # (Auto) Neut # (Auto) Lymph # (Auto) Sac # (Auto) Eos # (Auto) Baso # (Auto) RBC Morphology Sodium Potassium Chloride Carbon Dioxide Anion Gap BUN Creatinine Est Cr Clr Drug Dosing Est GFR ( Amer) Est GFR (Non-Af Amer) BUN/Creatinine Ratio Glucose POC Glucose 74 Calcium Phosphorus Magnesium Vancomycin Trough _ (1) Testicular cancer Descendance of testis: unspecified Laterality: unspecified laterality Qualified Code(s): C62.90 - Malignant neoplasm of unspecified testis, unspecified whether descended or undescended
[2018-08-19] MEDS: DOXYCYCLINE HYCLATE 100 MG CAP PO SCH ×2 (10:04→20:52)
[2018-08-19] MEDS: SODIUM CHLORIDE 0.9% 1000ML 1,000 ML IV SCH ×2 (12:46→16:44)
[2018-08-19] MEDS ORDERED: EPINEPHrine INJ 1 MG/ML AMP IM PRN (13:01)
[2018-08-19] MEDS ORDERED: DiphenhydrAMINE HCL 50 MG/ML VIAL IV PRN (13:03)
[2018-08-19] MEDS ORDERED: HYDROCORTISONE 100 MG *12cc Syringe IV PRN (13:04)
[2018-08-19] MEDS ORDERED: methylPREDNISolone 125 MG in SYRINGE 0 ML IV PRN (13:06)
[2018-08-19] MEDS: dexAMETHasone 10 MG in SODIUM CHLORIDE 0.9% 50 ML IV SCH (13:48)
[2018-08-19] MEDS: SODIUM CHLORIDE 0.9% IV SCH ×4 (14:23→20:47)
[2018-08-19] MEDS: MESNA IV SCH ×2 (14:23→20:47)
[2018-08-19] MEDS: IFOSFAMIDE IV SCH (14:42)
[2018-08-19] MEDS: CISPLATIN IV SCH (15:29)
--- NOTE | 2018-08-19 16:42 | Oncology Consultation ---
Date of Consultation August 19, 2018 Assessment & Plan (1) Testicular cancer: I had a long talk with Mr. Leigh last night about his recent behavior. He is very scared and overwhelmed. He also has an incredibly difficult home life and receives very little support from his parents. All of these issues make him ill-equipped to deal with this situation. Still, I stressed to him that if he cannot find a way to comply with treatment, he will of his cancer and soon. We discussed the need to communicate with his providers to find better solutions to his concerns than simply demanding to leave. He apologized for what happened over the weekend and assured me he intends to be more compliant moving forward. I reviewed his records with the pharmacy and it seems he completed the first doses of all of the drugs in his regimen. This means he requires 3 additional doses of the cisplatin, ifosfamide, and Mesna. We will resume this therapy today. I would like daily labs while he is on treatment. He should be ready to be discharged on Saturday. I will follow along with him daily while he is here. In the meantime, we need to make sure we are controlling his pain and, if he will comply, his nicotine cravings. Present on Admission?: Yes History of Present Illness Reason for Consultation: Recurrent, metastatic germ cell tumor Attending Physician: Yuri Mai MD, PhD, [facility] History of Present Illness Mr. Leigh is a 28 year old man with a history of type I diabetes. He underwent left orchiectomy on 06/24/17 after presenting with a scrotal mass. 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 Tumor markers 6 weeks post-op were persistently elevated, so I arranged for staging scans which were done 08/15/17 and revealed a massive (17 cm) RP devin mass causing encasement of his left ureter and near complete (240 degree) encasement of his aorta. No evidence of metastatic disease was seen. He received 4 cycles of chemotherapy with EP from 09/18 - . His post treatment scans revealed a large residual retroperitoneal mass. He underwent RPLND at [facility] on 01/29/18, which required a left nephrectomy due to involvement of the tumor. 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 His nodes were all negative. He was somewhat lost to follow up after that and finally returned in early July after not being seen in 5 months. His AFP at that time was > 6800 and he had [address]s that reveal numerous abdominal and pelvic masses consistent with recurrent testicular cancer. I admitted him last week to begin salvage chemotherapy with TIP. He began treatment on 08/14 and completed his first doses of each of his drugs. However, he then decided to leave against medical advice. He eventually returned late Saturday and he is now ready to resume chemotherapy. He has marked bilateral lower extremity edema up to his hips and persistent pelvic pain. He also has difficulty urinating due to a partial urinary obstruction. That being said, he was in better spirits today and is ready to resume treatment. Allergies Allergy/AdvReac Type Severity Reaction Status Date / Time No Known Allergies Allergy Verified 08/16/18 14:31 Home Medications Home Medications Medication Instructions Recorded Confirmed Type alprazolam [Xanax] 0.5 mg PO BID PRN 07/25/18 08/16/18 History celecoxib [Celebrex] 200 mg PO DAILY PRN 07/25/18 08/16/18 History citalopram [Celexa] 10 mg PO DAILY 07/25/18 08/16/18 History dextroamphetamine-amphetamine 15 mg PO BID 07/25/18 08/16/18 History [Adderall] insulin degludec [Tresiba 21 units SUBCUT QPM 07/25/18 08/16/18 History FlexTouch U-100] insulin lispro [Admelog SoloStar See Label Instructions .ROUTE 07/25/18 History U-100 Insulin] .COMPLEX multivitamin 1 tab PO DAILY 07/25/18 08/16/18 History oxycodone 5 mg PO Q4 PRN 07/31/18 08/16/18 History Patient History Medical History Cancer Testicular CA with mets Anxiety Diabetes (Chronic) Avascular necrosis of femur head, left Surgical History History of nephrectomy History of orchiectomy Family History Grandfather Heart attack Other Cancer Review of Systems Constitutional: + fatigue and + weakness; no fever Respiratory: no cough and no dyspnea Cardiovascular: + edema (see HPI); no chest pain and no palpitations Gastrointestinal: + abdominal pain and + bloating; no diarrhea/loose stools Genitourinary (Male): + difficulty urinating and + urinary hesitancy Musculoskeletal: + muscle weakness (generalized); no back pain Integumentary: no rash Neurologic: no dizziness and no headache(s) Hematologic / Lymphatic: no easy bleeding and no easy bruising Physical Exam 2 Vital Signs (Past 24 Hours): Last Vital Signs Temp 37.1 C 08/19/18 15:00 Pulse 98 H 08/19/18 15:00 Resp 18 08/19/18 15:00 BP 121/76 08/19/18 15:00 Pulse Ox 97 08/19/18 15:00 Constitutional: + ill appearing (chronically); no acute distress ENMT: external ear and nose normal, oropharynx normal Neck: trachea midline, no thyromegaly Respiratory: normal respiratory effort, lungs clear to auscultation Cardiovascular: RRR, no murmur, no edema Gastrointestinal (Abdomen): Inspection/Auscultation: + abdomen distended Percussion/Palpation: abdomen soft; abdomen nontender Musculoskeletal: no cyanosis or clubbing, extremities motor strength 5/5 Skin: no rashes, warm and dry Psychiatric: A+Ox3, euthymic affect Lymphatic: no cervical or axillary lymphadenopathy Results & Data Laboratory Results Abnormal lab results 08/18/18 08/18/18 08/19/18 Range/Units 16:57 20:53 07:51 WBC 2.63 L (4.8-10.8) K/uL RBC 3.44 L (4.7-6.1) M/uL Hgb 8.2 L (14.0-18.0) g/dL Hct 26.0 L (42-52) % MCV 75.6 L (80-100) fL MCH 23.8 L (25-34) pg MCHC 31.5 L (32-36) g/dL RDW Std Deviation 47.5 H (36.4-46.3) fL RDW Coeff of Zuleima 17.0 H (11.5-14.5) % Lymph # (Auto) 0.35 L (1.2-3.4) K/uL Mckean # (Auto) 0.01 L (0.11-0.59) K/uL Sodium (136-145) mmol/L BUN (7-18) mg/dl BUN/Creatinine Ratio (10-20) Glucose (70-99) mg/dl POC Glucose 177 H 203 H (70-99) Calcium (8.5-10.1) mg/dl 08/19/18 08/19/18 08/19/18 Range/Units 07:51 07:54 08:17 WBC (4.8-10.8) K/uL RBC (4.7-6.1) M/uL Hgb (14.0-18.0) g/dL Hct (42-52) % MCV (80-100) fL MCH (25-34) pg MCHC (32-36) g/dL RDW Std Deviation (36.4-46.3) fL RDW Coeff of Zuleima (11.5-14.5) % Lymph # (Auto) (1.2-3.4) K/uL Mckean # (Auto) (0.11-0.59) K/uL Sodium 132 L (136-145) mmol/L BUN 33 H (7-18) mg/dl BUN/Creatinine Ratio 40.0 H (10-20) Glucose 54 L (70-99) mg/dl POC Glucose 66 L* 110 H (70-99) Calcium 7.3 L (8.5-10.1) mg/dl _ (1) Testicular cancer Descendance of testis: descended Laterality: left Qualified Code(s): C62.12 - Malignant neoplasm of descended left testis
[2018-08-19] MEDS: HYDROmorphone INJ 0.5 MG/0.5 ML SYR IV PRN (17:58)
[2018-08-19] MEDS: ONDANSETRON INJ 2 MG/ML 2 ML VIAL IV PRN (20:46)
[2018-08-19] MEDS: INSULIN GLARGINE SOLOSTAR 100 UNITS/ML 3 ML PEN SC SCH (20:49)
[2018-08-19] MEDS: ENOXAPARIN INJ 40 MG/0.4 ML SYR SQ SCH (20:52)
[2018-08-19] MEDS: VANCOMYCIN HCL 1,250 MG in SODIUM CHLORIDE 0.9% 250 ML IV SCH (21:19)
[2018-08-20] MEDS: HYDROmorphone INJ 2 MG/ML SYR/VIAL IV PRN ×6 (00:24→21:24)
[2018-08-20] MEDS: HEPARIN 100 UNIT/ML 5ML FLUSH FLUSH PRN ×4 (00:26→19:53)
[2018-08-20] MEDS: DEXAMETHASONE CONC 3.75 MG, NYSTATIN 30 ML, DiphenhydrAMINE Syrup 300 MG, ORA-SWEET SYR... PO SCH ×6 (01:47→20:44)
[2018-08-20] MEDS: LORazepam 0.5 MG/1 ML VIAL IV PRN ×3 (02:00→15:49)
[2018-08-20] MEDS: OXYCODONE HCL IR 5 MG TAB (IMMEDIATE RELEASE) PO PRN ×3 (02:00→20:39)
[2018-08-20 03:55] LABS: Appearance Urine Clear (Clear); Bacteria Urine Automated Negative (Negative); Bilirubin Urine Negative (Negative); Color Urine Yellow; Epithelial Cell Urine Auto >30 /lpf (0-5); Glucose Urine UA Negative (Negative); Ketones Urine Trace (Negative); Leukocyte Esterase Urine Negative (Negative); Nitrite Urine Negative (Negative); Protein Urine 1+ (Negative); Specific Gravity Urine 1.027 (1.000-1.030); Urobilinogen Urine Negative (Negative); pH Urine 5.5 (4.5-7.5)
[2018-08-20 06:21] LABS: BUN Creatinine Ratio 40.4 (10-20); Calcium 7.7 mg/dl (8.5-10.1); Creatinine Clr Calc Pharmacy 155.5 ml/min; Est GFR (African American) 143.6; Est GFR (Non-African American) 123.9; Magnesium 1.7 mg/dl (1.8-2.4); Phosphorus 3.3 mg/dl (2.5-4.9); Potassium 4.2 mmol/L (3.5-5.1)
[2018-08-20 06:28] LABS: Hematocrit (blood only) 26.3 % (42-52); Hemoglobin 8.3 g/dL (14.0-18.0); Mean Corpuscular Hgb Conc 31.6 g/dL (32-36); Mean Corpuscular Volume 76.2 fL (80-100); Mean Platelet Volume 8.5 fL (7.4-10.4); Platelet Count 246 K/uL (130-400); RDW Standard Deviation 47.2 fL (36.4-46.3); Red Blood Count 3.45 M/uL (4.7-6.1); White Blood Count 0.72 K/uL (4.8-10.8)
[2018-08-20 06:29] LABS: Eosinophils # (auto) 0.06 K/uL (0-0.5); Eosinophils % (auto) 8.3 %; Hypochromasia Present; Immature Granulocytes # (auto) 0.06 K/uL (0.00-0.02); Immature Granulocytes % (auto) 8.3 %; Lymphocytes # (auto) 0.25 K/uL (1.2-3.4); Lymphocytes % (auto) 34.7 %; Monocytes # (auto) 0.02 K/uL (0.11-0.59); Monocytes % (auto) 2.8 %; Neutrophils # (auto) 0.33 K/uL (1.4-6.5); Neutrophils % (auto) 45.9 %
[2018-08-20] MEDS: INSULIN ASPART 100 UNITS/ML 3 ML PEN SC SCH ×4 (09:02→20:47)
[2018-08-20] MEDS: dexAMETHasone 10 MG in SODIUM CHLORIDE 0.9% 50 ML IV SCH (10:35)
[2018-08-20] MEDS: SODIUM CHLORIDE 0.9% IV SCH ×4 (11:08→17:42)
[2018-08-20] MEDS: CISPLATIN IV SCH (11:08)
[2018-08-20] MEDS: CITALOPRAM 20 MG TAB PO SCH (11:18)
[2018-08-20] MEDS: DOXYCYCLINE HYCLATE 100 MG CAP PO SCH ×2 (11:19→20:41)
[2018-08-20] MEDS: ALPRAZolam 0.5 MG TABLET PO SCH ×2 (11:19→20:39)
[2018-08-20] MEDS: SODIUM CHLORIDE 0.9% 1000ML 1,000 ML IV SCH ×3 (12:19→14:50)
[2018-08-20] MEDS: NICOTINE 21 MG/24 HR TDSY TD SCH (13:24)
[2018-08-20] MEDS: MESNA IV SCH ×2 (13:25→17:42)
[2018-08-20] MEDS: IFOSFAMIDE IV SCH (13:46)
--- NOTE | 2018-08-20 14:30 | Hospitalist Progress Note ---
Date of Service August 20, 2018 Assessment & Plan (1) Testicular cancer: (2) Abdominal distention: (3) CKD (chronic kidney disease) stage 2, GFR 60-89 ml/min: (4) Hyponatremia: (5) DVT prophylaxis: 28-year-old white male admitted on August 17, 2018 because of testis cancer and abdominal distention likely from cancer metastases, he was admitted on August 16, 2018 for the same condition but he was eloped on the day of admission, he has been agreeable to stay and started chemo therapy, Testicular cancer with metastasis: Oncology input appreciated, patient requires 3 additional doses of the cisplatin , ifosfamide, and Mesna, second dose of total of 3 additional doses for chemo, daily labs has been followed, which shows neutropenic Neutropenic/anemic, platelet level is normal, likely from recent chemo, continue chemo, put on neutropenic precaution Abdominal distention: Likely to be a bulky tumor with some ascites, discussed possible fluid removal, discussed the risk and benefit of fluid removal, will hold the procedure of paracentesis for now Chronic kidney disease stage 2, GFR 60-89 ml/min: 3+ edema and scrotal edema, likely because of hypoalbuminemia , try small dose of Lasix for comfortable today, dietitian consult for nutrition support Hyponatremia we will follow-up, DVT prophylaxis with Lovenox Discussed with patient answered all questions, Ativan as needed for anxiety, Subjective Was in sleep, generally doing okay, no complaint, nursing staff report eating poorly, Only drink of water, not eating meal because of abdomen distended, feeling full, however nursing staff report patient eating some food from girlfriend bringing Review of Systems Constitutional: Positive weakness, or fatigue Respiratory: no cough, sputum, wheezing, or dyspnea on exertion Cardiac: No chest pain, No orthopnea, No PND, Abdomen: See HPI, Musculoskeletal: Positive lower extremity swelling, no joint pain, No muscle pain, No calf pain, No problem reported : No dysuria, No urinary frequency, No incontinence, No hematuria Neurologic: No paralysis, No weakness, No numbness/tingling, Psychiatric: No depression symptoms, No anhedonism, No anxiety, No insomnia, No substance abuse Heme: No abnormal bleeding/bruising, No clotting problems, No swollen lymph nodes, No night sweats Skin: No rash, No itch, No new/changing skin lesions, No color change, No bleeding Physical Exam 2 Vital Signs (Past 24 Hours): Last Vital Signs Temp 37.2 C 08/20/18 11:50 Pulse 113 H 08/20/18 11:50 Resp 18 08/20/18 11:50 BP 131/81 08/20/18 11:50 Pulse Ox 97 08/20/18 11:50 Physical Exam: General Appearance: Frail, pale, chronically ill looking, WD/WN, in sleep, no apparent distress, Eyes: normal inspection, PERRL, EOMI, sclerae normal ENT: normal ENT inspection, hearing grossly normal, pharynx normal Neck: supple, no adenopathy, thyroid normal, no JVD, no carotid bruits, trachea midline Respiratory/Chest: chest non-tender, normal breath sounds, no respiratory distress, no accessory muscle use, breath sounds, rales, wheezing Cardiovascular: regular rate, rhythm, no JVD, no murmur Abdomen: Distended, firm, positive tender, Extremities: 2-3+ edema, normal range of motion, non-tender, normal inspection, joint has no limited range of motion, capillary refill is normal, no cyanosis clubbing Neurologic/Psychiatric: rinkman II-XII nml as tested, no motor/sensory deficits, alert, normal mood/affect, oriented x 3 Skin: normal color, warm/dry, no rash Lymphatic: no adenopathy Results & Data Laboratory Results Laboratory Results - last 24 hr 08/19/18 08/19/18 08/19/18 11:40 16:35 17:03 WBC RBC Hgb Hct MCV MCH MCHC RDW Std Deviation RDW Coeff of Zuleima Plt Count MPV Immature Gran % (Auto) Neut % (Auto) Lymph % (Auto) Laurel % (Auto) Eos % (Auto) Baso % (Auto) Immature Gran # (Auto) Neut # (Auto) Lymph # (Auto) Laurel # (Auto) Eos # (Auto) Baso # (Auto) Hypochromasia Sodium Potassium Chloride Carbon Dioxide Anion Gap BUN Creatinine Est Cr Clr Drug Dosing Est GFR ( Amer) Est GFR (Non-Af Amer) BUN/Creatinine Ratio Glucose POC Glucose 72 65 L* 74 Calcium Phosphorus Magnesium Urine Color Urine Appearance Urine pH Ur Specific Bellmore Urine Protein Urine Glucose (UA) Urine Ketones Urine Blood Urine Nitrite Urine Bilirubin Urine Urobilinogen Ur Leukocyte Esterase Urine WBC (Auto) Urine RBC (Auto) U Hyaline Cast (Auto) U Epithel Cells (Auto) Urine Bacteria (Auto) 08/19/18 08/20/18 08/20/18 20:01 01:40 04:17 WBC RBC Hgb Hct MCV MCH MCHC RDW Std Deviation RDW Coeff of Zuleima Plt Count MPV Immature Gran % (Auto) Neut % (Auto) Lymph % (Auto) Laurel % (Auto) Eos % (Auto) Baso % (Auto) Immature Gran # (Auto) Neut # (Auto) Lymph # (Auto) Laurel # (Auto) Eos # (Auto) Baso # (Auto) Hypochromasia Sodium Potassium Chloride Carbon Dioxide Anion Gap BUN Creatinine Est Cr Clr Drug Dosing Est GFR ( Amer) Est GFR (Non-Af Amer) BUN/Creatinine Ratio Glucose POC Glucose 97 121 H Calcium Phosphorus Magnesium Urine Color Yellow Urine Appearance Clear Urine pH 5.5 Ur Specific Bellmore 1.027 Urine Protein 1+ H Urine Glucose (UA) Negative Urine Ketones Trace H Urine Blood Negative Urine Nitrite Negative Urine Bilirubin Negative Urine Urobilinogen Negative Ur Leukocyte Esterase Negative Urine WBC (Auto) 1-5 Urine RBC (Auto) 0-4 U Hyaline Cast (Auto) 1-5 U Epithel Cells (Auto) >30 H Urine Bacteria (Auto) Negative 08/20/18 08/20/18 08/20/18 05:26 05:26 07:50 WBC 0.72 L* RBC 3.45 L Hgb 8.3 L Hct 26.3 L MCV 76.2 L MCH 24.1 L MCHC 31.6 L RDW Std Deviation 47.2 H RDW Coeff of Zuleima 17.0 H Plt Count 246 MPV 8.5 Immature Gran % (Auto) 8.3 Neut % (Auto) 45.9 Lymph % (Auto) 34.7 Laurel % (Auto) 2.8 Eos % (Auto) 8.3 Baso % (Auto) 0.0 Immature Gran # (Auto) 0.06 H Neut # (Auto) 0.33 L* Lymph # (Auto) 0.25 L Laurel # (Auto) 0.02 L Eos # (Auto) 0.06 Baso # (Auto) 0.00 Hypochromasia Present Sodium 133 L Potassium 4.2 Chloride 101 Carbon Dioxide 25 Anion Gap 7.0 BUN 32 H Creatinine 0.79 Est Cr Clr Drug Dosing 155.5 Est GFR ( Amer) 143.6 Est GFR (Non-Af Amer) 123.9 BUN/Creatinine Ratio 40.4 H Glucose 121 H POC Glucose 113 H Calcium 7.7 L Phosphorus 3.3 Magnesium 1.7 L Urine Color Urine Appearance Urine pH Ur Specific Bell[place] Urine Protein Urine Glucose (UA) Urine Ketones Urine Blood Urine Nitrite Urine Bilirubin Urine Urobilinogen Ur Leukocyte Esterase Urine WBC (Auto) Urine RBC (Auto) U Hyaline Cast (Auto) U Epithel Cells (Auto) Urine Bacteria (Auto) 08/20/18 11:46 WBC RBC Hgb Hct MCV MCH MCHC RDW Std Deviation RDW Coeff of Zuleima Plt Count MPV Immature Gran % (Auto) Neut % (Auto) Lymph % (Auto) Laurel % (Auto) Eos % (Auto) Baso % (Auto) Immature Gran # (Auto) Neut # (Auto) Lymph # (Auto) Laurel # (Auto) Eos # (Auto) Baso # (Auto) Hypochromasia Sodium Potassium Chloride Carbon Dioxide Anion Gap BUN Creatinine Est Cr Clr Drug Dosing Est GFR ( Amer) Est GFR (Non-Af Amer) BUN/Creatinine Ratio Glucose POC Glucose 106 H Calcium Phosphorus Magnesium Urine Color Urine Appearance Urine pH Ur Specific [place] Urine Protein Urine Glucose (UA) Urine Ketones Urine Blood Urine Nitrite Urine Bilirubin Urine Urobilinogen Ur Leukocyte Esterase Urine WBC (Auto) Urine RBC (Auto) U Hyaline Cast (Auto) U Epithel Cells (Auto) Urine Bacteria (Auto) _ (1) Testicular cancer Descendance of testis: unspecified Laterality: unspecified laterality Qualified Code(s): C62.90 - Malignant neoplasm of unspecified testis, unspecified whether descended or undescended
[2018-08-20] MEDS: ENOXAPARIN INJ 40 MG/0.4 ML SYR SQ SCH (20:42)
[2018-08-20] MEDS: INSULIN GLARGINE SOLOSTAR 100 UNITS/ML 3 ML PEN SC SCH (20:46)
[2018-08-20] MEDS: HYDROmorphone INJ 0.5 MG/0.5 ML SYR IV PRN (23:48)
[2018-08-21] MEDS ORDERED: HYDROmorphone INJ 2 MG/ML SYR/VIAL IV STA (02:05)
[2018-08-21] MEDS: HYDROmorphone INJ 2 MG/ML SYR/VIAL IV PRN ×5 (02:09→13:58)
[2018-08-21] MEDS: OXYCODONE HCL IR 5 MG TAB (IMMEDIATE RELEASE) PO PRN ×3 (03:27→18:54)
[2018-08-21] MEDS: DEXAMETHASONE CONC 3.75 MG, NYSTATIN 30 ML, DiphenhydrAMINE Syrup 300 MG, ORA-SWEET SYR... PO SCH ×6 (03:32→22:36)
[2018-08-21] MEDS: LORazepam 0.5 MG/1 ML VIAL IV PRN ×4 (03:53→23:37)
[2018-08-21] MEDS ORDERED: HALOPERIDOL LACTATE 5 MG/ML 1 ML VIAL IM STA (04:43)
[2018-08-21] MEDS ORDERED: HALOPERIDOL LACTATE 5 MG/ML 1 ML VIAL ONE (05:02)
[2018-08-21] MEDS: HALOPERIDOL LACTATE 5 MG/ML 1 ML VIAL IM PRN ×2 (05:05→19:54)
[2018-08-21] MEDS ORDERED: FUROSEMIDE 10 MG in SYRINGE 0 ML IV ONE (05:15)
[2018-08-21] MEDS: HEPARIN 100 UNIT/ML 5ML FLUSH FLUSH PRN ×3 (05:48→21:52)
--- NOTE | 2018-08-21 06:39 | Ultrasound Report ---
SCROTAL ULTRASOUND CLINICAL HISTORY: worsening testicular pain, ?torsion COMPARISON STUDY: Scrotal ultrasound July 28, 2017. TECHNIQUE: Grayscale and color and duplex Doppler sonography of the scrotum was performed. FINDINGS: This exam was technically difficult. Marked scrotal edema was noted. Complex fluid surround ing the right testis is noted. The right testis measures 3.7 x 2.5 x 2.3 cm. There is color flow with in the right testis. There are several microcalcifications within the right testis. There is no right testicular mass. The right epididymis is heterogeneous. The left testis is surgically absent. IMPRESSION: 1. No evidence for right testicular torsion. No right testicular mass. Several right testicular micro calcifications. 2. Prior left orchiectomy. 3. Marked scrotal edema with complex fluid surrounding the right testis. 4. Heterogeneous right epididymis. Electronically signed by: Guicho Olivera M.D. 08/21/2018 6:38 AM
[2018-08-21] MEDS: ALPRAZolam 0.5 MG TABLET PO SCH ×2 (07:37→20:02)
[2018-08-21] MEDS: DOXYCYCLINE HYCLATE 100 MG CAP PO SCH ×2 (07:38→20:02)
[2018-08-21] MEDS: CITALOPRAM 20 MG TAB PO SCH (07:38)
[2018-08-21] MEDS: NICOTINE 21 MG/24 HR TDSY TD SCH (07:38)
[2018-08-21] MEDS: INSULIN ASPART 100 UNITS/ML 3 ML PEN SC SCH ×4 (08:47→21:52)
[2018-08-21 08:49] LABS: BUN Creatinine Ratio 39.9 (10-20); Calcium 7.9 mg/dl (8.5-10.1); Creatinine Clr Calc Pharmacy 126.7 ml/min; Est GFR (African American) 124.4; Est GFR (Non-African American) 107.3; Magnesium 1.7 mg/dl (1.8-2.4); Potassium 4.3 mmol/L (3.5-5.1)
[2018-08-21 09:03] LABS: Hematocrit (blood only) 25.5 % (42-52); Mean Corpuscular Hgb Conc 31.4 g/dL (32-36); Mean Corpuscular Volume 75.7 fL (80-100); Platelet Count 216 K/uL (130-400); RDW Standard Deviation 47.4 fL (36.4-46.3); Red Blood Count 3.37 M/uL (4.7-6.1); White Blood Count 0.57 K/uL (4.8-10.8)
[2018-08-21 09:10] LABS: Anisocytosis Present; Dohle Bodies 1+; Eosinophils # (auto) 0.05 K/uL (0-0.5); Eosinophils % (auto) 8.8 %; Lymphocytes # (auto) 0.29 K/uL (1.2-3.4); Lymphocytes % (auto) 50.9 %; Monocytes # (auto) 0.03 K/uL (0.11-0.59); Monocytes % (auto) 5.3 %; Poikilocytosis Present; Toxic Granulation 1+; Toxic Vacuolation 1+
--- NOTE | 2018-08-21 09:19 | Hospitalist Progress Note ---
Date of Service August 21, 2018 Assessment & Plan (1) Testicular cancer: (2) Abdominal distention: (3) CKD (chronic kidney disease) stage 2, GFR 60-89 ml/min: (4) Hyponatremia: (5) DVT prophylaxis: 28-year-old white male admitted on August 17, 2018 because of testis cancer and abdominal distention likely from cancer metastases, he was admitted on August 16, 2018 for the same condition but he was eloped on the day of admission, he has been agreeable to stay and started chemo therapy, Testicular cancer with metastasis, with distended abdomen possible his cancer disease Oncology input appreciated, patient requires 3 additional doses of the cisplatin , ifosfamide, and [place], second dose of total of 3 additional doses for chemo, today's last day, Neutropenic/anemic, platelet level is normal, likely from chemo, continue chemo , put on neutropenic precaution Abdominal distention: Likely to be a bulky tumor with some ascites, discussed possible fluid removal, discussed the risk and benefit of fluid removal, will hold the procedure of paracentesis for now Chronic kidney disease stage 2, GFR 60-89 ml/min: Severe abdominal distention/pain and scrotal pain: See below 3+ edema and scrotal edema, likely because of hypoalbuminemia , try small dose of Lasix for comfortable today, dietitian Discussed with patient, ann, palliative care, will continue pain control, goal of the care will be still full code, per patient and family request, likely poor prognosis, Subjective Severe lower abdomen and scrotal area pain overnight, ultrasound was checked there was no testes torsion, was gave 1 dose of Lasix and increase Dilaudid, Increase Dilaudid to 2 mg every 2hr Lasix IV for abdominal distention and scrotal edema Palliative care consult for the goal on her care and pain management Review of Systems Constitutional: Positive weakness, or fatigue Respiratory: no cough, sputum, wheezing, or dyspnea on exertion Cardiac: No chest pain, No orthopnea, No PND, Abdomen: See HPI, Musculoskeletal: Positive lower extremity swelling, no joint pain, : No incontinence, No hematuria Neurologic: No paralysis, No weakness, No numbness/tingling, Psychiatric: No depression symptoms, No anhedonism, No anxiety, Heme: No abnormal bleeding/bruising, No clotting problems, No swollen lymph nodes, No night sweats Skin: No rash, No itch, No new/changing skin lesions, No color change, No bleeding Physical Exam 2 Vital Signs (Past 24 Hours): Last Vital Signs Temp 36.7 C 08/21/18 03:30 Pulse 127 H 08/21/18 03:30 Resp 22 08/21/18 03:30 BP 149/62 H 08/21/18 03:30 Pulse Ox 93 08/21/18 03:30 Physical Exam: General Appearance: Significant pain, frail, pale, chronically ill looking, Eyes: normal inspection, PERRL, EOMI, sclerae normal ENT: normal ENT inspection, hearing grossly normal, pharynx normal Neck: supple, no adenopathy, thyroid normal, no JVD, no carotid bruits, trachea midline Respiratory/Chest: chest non-tender, normal breath sounds, no respiratory distress, no accessory muscle use, breath sounds, rales, wheezing Cardiovascular: regular rate, rhythm, no JVD, no murmur Abdomen: Severe distended, firm, positive tender, scrotal area is swelling 2, Extremities: 3+ edema, normal range of motion, non-tender, normal inspection, joint has no limited range of motion, capillary refill is normal, no cyanosis clubbing 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, no motor/sensory deficits, alert, normal mood/affect, oriented x 3 Skin: normal color, warm/dry, no rash Lymphatic: no adenopathy Results & Data Laboratory Results Laboratory Results - last 24 hr 08/16/18 08/20/18 08/20/18 20:00 16:34 20:47 WBC RBC Hgb Hct MCV MCH MCHC RDW Std Deviation RDW Coeff of Zuleima Plt Count MPV Immature Gran % (Auto) Neut % (Auto) Lymph % (Auto) [place] % (Auto) Eos % (Auto) Baso % (Auto) Immature Gran # (Auto) Neut # (Auto) Lymph # (Auto) [place] # (Auto) Eos # (Auto) Baso # (Auto) Toxic Granulation Toxic Vacuolation Dohle Bodies Giant Platelets Poikilocytosis Anisocytosis Sodium Potassium Chloride Carbon Dioxide Anion Gap BUN Creatinine Est Cr Clr Drug Dosing Est GFR ( Amer) Est GFR (Non-Af Amer) BUN/Creatinine Ratio Glucose POC Glucose 123 H 113 H Calcium Magnesium U Codeine Confrm GC/MS NEGATIVE Ur Morphine (GC/MS) 3280 A Ur Hydrocodone (GC/MS) NEGATIVE Ur Norhydrocodone NEGATIVE Ur Noroxycodone 973 A Urine Oxycodone (GC/MS) 1480 A U Oxymorphone GC/MS 2560 A Ur Hydromorphone (GC/MS) 243 A U OH-Alprazolam Confrm 264 A 7-Amino Clonazepam NEGATIVE Ur Nordiazepam Confirm NEGATIVE U OH-ethylflurazepam NEGATIVE U Lorazepam Cnf GC/MS 138 A U Oxazepam Confm GC/MS NEGATIVE Ur Temazepam Confirm NEGATIVE U OH-Triazolam Confirm NEGATIVE U OH-Midazolam Confirm NEGATIVE 08/21/18 08/21/18 08/21/18 07:43 08:15 08:15 WBC 0.57 L* RBC 3.37 L Hgb 8.0 L Hct 25.5 L MCV 75.7 L MCH 23.7 L MCHC 31.4 L RDW Std Deviation 47.4 H RDW Coeff of Zuleima 17.0 H Plt Count 216 MPV 8.0 Immature Gran % (Auto) 0.0 Neut % (Auto) 35.0 Lymph % (Auto) 50.9 [place] % (Auto) 5.3 Eos % (Auto) 8.8 Baso % (Auto) 0.0 Immature Gran # (Auto) 0.00 Neut # (Auto) 0.20 L* Lymph # (Auto) 0.29 L [place] # (Auto) 0.03 L Eos # (Auto) 0.05 Baso # (Auto) 0.00 Toxic Granulation 1+ Toxic Vacuolation 1+ Dohle Bodies 1+ Giant Platelets 1+ Poikilocytosis Present Anisocytosis Present Sodium 134 L Potassium 4.3 Chloride 101 Carbon Dioxide 23 Anion Gap 10.0 BUN 39 H Creatinine 0.97 Est Cr Clr Drug Dosing 126.7 Est GFR ( Amer) 124.4 Est GFR (Non-Af Amer) 107.3 BUN/Creatinine Ratio 39.9 H Glucose 92 POC Glucose 99 Calcium 7.9 L Magnesium 1.7 L U Codeine Confrm GC/MS Ur Morphine (GC/MS) Ur Hydrocodone (GC/MS) Ur Norhydrocodone Ur Noroxycodone Urine Oxycodone (GC/MS) U Oxymorphone GC/MS Ur Hydromorphone (GC/MS) U OH-Alprazolam Confrm 7-Amino Clonazepam Ur Nordiazepam Confirm U OH-ethylflurazepam U Lorazepam Cnf GC/MS U Oxazepam Confm GC/MS Ur Temazepam Confirm U OH-Triazolam Confirm U OH-Midazolam Confirm 08/21/18 11:19 WBC RBC Hgb Hct MCV MCH MCHC RDW Std Deviation RDW Coeff of Zuleima Plt Count MPV Immature Gran % (Auto) Neut % (Auto) Lymph % (Auto) [place] % (Auto) Eos % (Auto) Baso % (Auto) Immature Gran # (Auto) Neut # (Auto) Lymph # (Auto) [place] # (Auto) Eos # (Auto) Baso # (Auto) Toxic Granulation Toxic Vacuolation Dohle Bodies Giant Platelets Poikilocytosis Anisocytosis Sodium Potassium Chloride Carbon Dioxide Anion Gap BUN Creatinine Est Cr Clr Drug Dosing Est GFR ( Amer) Est GFR (Non-Af Amer) BUN/Creatinine Ratio Glucose POC Glucose 76 Calcium Magnesium U Codeine Confrm GC/MS Ur Morphine (GC/MS) Ur Hydrocodone (GC/MS) Ur Norhydrocodone Ur Noroxycodone Urine Oxycodone (GC/MS) U Oxymorphone GC/MS Ur Hydromorphone (GC/MS) U OH-Alprazolam Confrm 7-Amino Clonazepam Ur Nordiazepam Confirm U OH-ethylflurazepam U Lorazepam Cnf GC/MS U Oxazepam Confm GC/MS Ur Temazepam Confirm U OH-Triazolam Confirm U OH-Midazolam Confirm _ (1) Testicular cancer Descendance of testis: unspecified Laterality: unspecified laterality Qualified Code(s): C62.90 - Malignant neoplasm of unspecified testis, unspecified whether descended or undescended
[2018-08-21] MEDS ORDERED: SODIUM CHLORIDE 0.9% 1000ML 1,000 ML IV SCH (09:30)
[2018-08-21] MEDS ORDERED: MAGNESIUM SULFATE / D5W 1 GM/100 ML BAG IV ONE (09:30)
[2018-08-21] MEDS: dexAMETHasone 10 MG in SODIUM CHLORIDE 0.9% 50 ML IV SCH (10:50)
[2018-08-21] MEDS ORDERED: FUROSEMIDE 40 MG in SYRINGE 0 ML IV ONE (11:00)
[2018-08-21 11:05] LABS: 7-Aminoclonaz, Confirm NEGATIVE NG/ML (CUTOFF=25); Hydro-Alp Ur, GC/MS 264 NG/ML (CUTOFF=25); Hydrocodone Urine NEGATIVE NG/ML (CUTOFF=50); Hydromor Urine 243 NG/ML (CUTOFF=50); Hydroxyethylflurazepam, Conf NEGATIVE NG/ML (CUTOFF=50); Hydroxytriazolam NEGATIVE NG/ML (CUTOFF=50); Lorazepam, Ur GC/MS 138 NG/ML (CUTOFF=50); Morphine Urine 3280 NG/ML (CUTOFF=50); Nordiazepam, Confirm NEGATIVE NG/ML (CUTOFF=50); Norhydrocodone Conf Ur NEGATIVE NG/ML (CUTOFF=50); Noroxycodone Urine 973 NG/ML (CUTOFF=50); Oxazepam Ur, GC/MS NEGATIVE NG/ML (CUTOFF=50); Oxycodone Urine 1480 NG/ML (CUTOFF=50); Temazepam, Confirm NEGATIVE NG/ML (CUTOFF=50)
[2018-08-21] MEDS: SODIUM CHLORIDE 0.9% IV SCH ×4 (11:33→18:02)
[2018-08-21] MEDS: CISPLATIN IV SCH (11:33)
[2018-08-21] MEDS ORDERED: MAGNESIUM HYDROXIDE SUSP 30 ML UDC PO ONE (11:55)
[2018-08-21] MEDS ORDERED: POLYETHYLENE (MIRALAX) 17 GM PACK PO PRN (11:56)
[2018-08-21] MEDS: MESNA IV SCH ×2 (13:06→18:02)
[2018-08-21] MEDS: IFOSFAMIDE IV SCH (13:53)
[2018-08-21] MEDS: SODIUM CHLORIDE 0.9% 1000ML 1,000 ML IV SCH (14:53)
[2018-08-21] MEDS ORDERED: Nursing to Pharmacy Communication ONE (15:14)
[2018-08-21] MEDS ORDERED: HYDROmorphone INJ 2 MG/ML SYR/VIAL IV PRN (15:21)
--- NOTE | 2018-08-21 15:28 | Palliative Care Consultation ---
Date of Consultation August 21, 2018 Assessment & Plan (1) Palliative care encounter: Patient is a 28-year-old male with metastatic testicular cancer diagnosed in June 2017. 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 Patient's alpha-fetoprotein remained elevated after resection-in August 2017 CT scan showed large retroperitoneal mass involving the left ureter and aorta. Patient underwent chemo from September through December-on 01/29 he underwent surgical resection of the mass-ann reports that they were told it was removed completely. Patient was lost to follow-up until this August when he presented with an enlarged abdomen and lower extremity edema. CT scan done on 07/23 showed mediastinal adenopathy as well as paratracheal, avascular necrosis of the left hip, right kidney infarct with scarring, large multiple masses in the omentum and mesentery, pelvic mass 8.5 cm, a 2.3 cm left inguinal mass and lesions abutting the liver. Patient's market abdominal distention was evaluated by ultrasound on 08/13-this showed trace ascites. Patient admitted for salvage chemo as well as pain management. Prior to his resection patient had been on MS Contin at 60 mg twice daily with 30 mg of oxyphil breakthrough pain-he was weaned off of this after surgery. His fiance reports that the pain started increased this past May. Patient is currently receiving IV Dilaudid at 2 mg every 2 hours as needed as well as PRN Ativan. Calculating his requirements in the past 24 hours it comes out to approximately 230 mg morphine equivalent per 24 hours-we will start him on 60 mg of MS Contin q. 8 with 15 mg of immediate release morphine every 4 hours as needed. Plan is to wean him off IV medications so he can be home for the holidays. Patient receiving his last dose of chemo today-plan is for another course in 3 weeks. He is plan to have it be rescanned after the next course. Ann reports he also uses marijuana occasionally to help with the pain-gave information regarding medical marijuana clinic in [place]. Patient also has diabetes and is insulin-dependent, he is on Celexa for depression and a nicotine patch for nicotine dependence. Patient has avascular necrosis of the left hip-had screw placement for stabilization. -Metastatic testicular cancer-received chemo today, is neutropenic. Further plans per oncology. Patient to receive next course of chemo in 3 weeks -Pain-cancer related pain, primarily in abdomen-current pain med requirements calculated-would start 60 mg of MSContin every 8 hours, with 15 mg of morphine IR every 4 hours as needed. May be able to wean pain medications if chemo is effective in decreasing abdominal distention and lower extremity edema. Patient to investigate medical marijuana to assist with pain. -Anxiety/depression-PRN Ativan effective, patient was on Xanax at home prior to admission. Continue current dose of Celexa -Nicotine dependence-continue nicotine patch -Diabetes-on insulin -Abdominal distention-trace ascites on abdominal ultrasound done on 08/13- patient with extensive omental and mesenteric disease-discussed with fianc and parents -Patient and family interested in pursuing aggressive chemotherapy-are beginning to understand the gravity of his disease. -Lower extremity edema-patient appears to be diuresing-hoped improvement continues status post chemo Patient and family's goal is to continue aggressive chemo, no change in CODE STATUS at this time. (2) Abdominal pain: Due to advanced metastatic disease-transition to p.o. pain medication. Start with MS Contin 60 mg every 8 with 15 mg IR morphine every 4 hours as needed Abdominal location: generalized Qualified Code(s): R10.84 - Generalized abdominal pain (3) Testicular cancer: Patient receiving aggressive chemo-plan is to continue with aggressive chemo. Patient and family beginning to grasp the severity of his disease Descendance of testis: descended Laterality: left Qualified Code (s): C62.12 - Malignant neoplasm of descended left testis (4) Abdominal distention: Due to extensive omental and mesenteric metastatic disease-abdominal ultrasound on 08/13 showed only trace ascites (5) Anxiety: Continue as needed Xanax or Ativan (6) Urinary retention: Slightly improved per patient's fianc-will hopefully improve with chemo History of Present Illness Reason for Consultation: Assist with pain management and address goals of care Requesting Physician: Dr. Mai Attending Physician: Yuri Mai MD, PhD, [facility] History of Present Illness Patient seen and examined with his fiance just, at bedside. Return to room when his parents arrived. Patient drowsy due to pain medications-was able to participate somewhat in discussion-whenever patient awake complains of abdominal pain, and frequent urination. Fianc states that patient was not able to void at home and required intermittent cath of volumes up to 800 cc, patient has been able to void some today. Patient just had a Coates catheter placed for comfort. Patient is a 28-year-old male with metastatic testicular cancer diagnosed in June 2017. 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 Patient's alpha-fetoprotein remained elevated after resection-in August 2017 CT scan showed large retroperitoneal mass involving the left ureter and aorta. Patient underwent chemo from September through December-on 01/29 he underwent surgical resection of the mass-ann reports that they were told it was removed completely. Patient was lost to follow-up until this August when he presented with an enlarged abdomen and lower extremity edema. CT scan done on 07/23 showed mediastinal adenopathy as well as paratracheal, avascular necrosis of the left hip, right kidney infarct with scarring, large multiple masses in the omentum and mesentery, pelvic mass 8.5 cm, a 2.3 cm left inguinal mass and lesions abutting the liver. Patient's market abdominal distention was evaluated by ultrasound on 08/13-this showed trace ascites. Patient admitted for salvage chemo as well as pain management. Prior to his resection patient had been on MS Contin at 60 mg twice daily with 30 mg of oxyphil breakthrough pain-he was weaned off of this after surgery. His fiance reports that the pain started increased this past May. Patient is currently receiving IV Dilaudid at 2 mg every 2 hours as needed as well as PRN Ativan. Calculating his requirements in the past 24 hours it comes out to approximately 230 mg morphine equivalent per 24 hours-we will start him on 60 mg of MS Contin q. 8 with 15 mg of immediate release morphine every 4 hours as needed. Plan is to wean him off IV medications so he can be home for the holidays. Patient receiving his last dose of chemo today-plan is for another course in 3 weeks. He is plan to have it be rescanned after the next course. Ann reports he also uses marijuana occasionally to help with the pain-gave information regarding medical marijuana clinic in [place]. Patient also has diabetes and is insulin-dependent, he is on Celexa for depression and a nicotine patch for nicotine dependence. Patient has avascular necrosis of the left hip-had screw placement for stabilization. Patient and family's goal is to continue aggressive treatment, no change in CODE STATUS at this time. Allergies Allergy/AdvReac Type Severity Reaction Status Date / Time No Known Allergies Allergy Verified 12/15/18 14:31 Home Medications Home Medications Medication Instructions Recorded Confirmed Type alprazolam [Xanax] 0.5 mg PO BID PRN 07/25/18 08/16/18 History celecoxib [Celebrex] 200 mg PO DAILY PRN 07/25/18 08/16/18 History citalopram [Celexa] 10 mg PO DAILY 07/25/18 08/16/18 History dextroamphetamine-amphetamine 15 mg PO BID 07/25/18 08/16/18 History [Adderall] insulin degludec [Tresiba 21 units SUBCUT QPM 07/25/18 08/16/18 History FlexTouch U-100] insulin lispro [Admelog SoloStar See Label Instructions .ROUTE 07/25/18 History U-100 Insulin] .COMPLEX multivitamin 1 tab PO DAILY 07/25/18 08/16/18 History oxycodone 5 mg PO Q4 PRN 07/31/18 08/16/18 History Patient History Medical History Cancer Testicular CA with mets Anxiety Diabetes (Chronic) Avascular necrosis of femur head, left Surgical History History of nephrectomy History of orchiectomy Family History Grandfather Heart attack Other Cancer Review of Systems Limited ROS obtained due to sedation due to pain meds Patient denies shortness of breath, complains of abdominal pain and distention, complains of urinary retention, scrotal pain and swelling and extensive lower extremity edema to the level of the groin Physical Exam 2 Vital Signs (Past 24 Hours): Last Vital Signs Temp 36.8 C 08/21/18 15:13 Pulse 119 H 08/21/18 15:13 Resp 18 08/21/18 15:13 BP 122/83 08/21/18 15:13 Pulse Ox 99 08/21/18 15:13 Constitutional: + thin Eyes: EOMI Respiratory: Unlabored Cardiovascular: Tachycardic Gastrointestinal (Abdomen): Abdomen markedly distended, firm, pitting abdominal wall edema Musculoskeletal: 4+ lower extremity edema extending to the level of the groin Skin: No rashes Neurologic: Sedated due to pain medications Psychiatric: Restless due to pain, occasional hallucinations Genitourinary: Marked scrotal edema Time Spent Attending Total time spent greater than 70 minutes with greater than 50% of the time spent at bedside on 2 separate visits discussing with patient and family his current status, as well as treatment options and goals of care.
[2018-08-21] MEDS: MoRPHine SULFATE IR 15 MG TAB (IMMEDIATE RELEASE) PO PRN ×2 (18:04→22:53)
[2018-08-21] MEDS: ENOXAPARIN INJ 40 MG/0.4 ML SYR SQ SCH (19:58)
[2018-08-21] MEDS: MoRPHine SULFATE CR 60 MG TABCR PO SCH (21:52)
[2018-08-21] MEDS: INSULIN GLARGINE SOLOSTAR 100 UNITS/ML 3 ML PEN SC SCH (21:53)
[2018-08-22] MEDS: DEXAMETHASONE CONC 3.75 MG, NYSTATIN 30 ML, DiphenhydrAMINE Syrup 300 MG, ORA-SWEET SYR... PO SCH ×6 (02:45→21:51)
[2018-08-22] MEDS: OXYCODONE HCL IR 5 MG TAB (IMMEDIATE RELEASE) PO PRN (05:50)
[2018-08-22] MEDS: MoRPHine SULFATE CR 60 MG TABCR PO SCH ×3 (05:50→21:50)
[2018-08-22] MEDS: DEXTROSE 50% 50 ML SYRINGE IV PRN ×2 (06:07→12:36)
[2018-08-22 07:12] LABS: Hematocrit (blood only) 25.5 % (42-52); Hemoglobin 7.9 g/dL (14.0-18.0); Mean Corpuscular Volume 75.2 fL (80-100); Mean Platelet Volume 7.9 fL (7.4-10.4); Platelet Count 182 K/uL (130-400); RDW Coefficient of Variation 17.2 % (11.5-14.5); RDW Standard Deviation 47.4 fL (36.4-46.3); Red Blood Count 3.39 M/uL (4.7-6.1)
[2018-08-22 07:14] LABS: White Blood Count 0.37 K/uL (4.8-10.8)
[2018-08-22 07:26] LABS: BUN Creatinine Ratio 36.6 (10-20); Calcium 7.9 mg/dl (8.5-10.1); Creatinine Clr Calc Pharmacy 113.8 ml/min; Est GFR (African American) 109.2; Est GFR (Non-African American) 94.2; Potassium 3.7 mmol/L (3.5-5.1)
[2018-08-22] MEDS: INSULIN ASPART 100 UNITS/ML 3 ML PEN SC SCH ×4 (09:06→21:11)
[2018-08-22] MEDS: DOXYCYCLINE HYCLATE 100 MG CAP PO SCH ×2 (09:25→21:50)
[2018-08-22] MEDS: CITALOPRAM 20 MG TAB PO SCH (09:25)
[2018-08-22] MEDS: ALPRAZolam 0.5 MG TABLET PO SCH ×2 (09:25→21:51)
[2018-08-22] MEDS: NICOTINE 21 MG/24 HR TDSY TD SCH (09:26)
--- NOTE | 2018-08-22 09:31 | Hospitalist Progress Note ---
Date of Service August 22, 2018 Assessment & Plan (1) Testicular cancer: (2) Abdominal distention: (3) CKD (chronic kidney disease) stage 2, GFR 60-89 ml/min: (4) Hyponatremia: (5) DVT prophylaxis: 28-year-old white male admitted on August 17, 2018 because of testis cancer and abdominal distention likely from cancer metastases, he was admitted on August 16, 2018 for the same condition but he was eloped on the day of admission, he has been agreeable to stay and started chemo therapy, Testicular cancer with metastasis, with distended abdomen possible his cancer disease Oncology input appreciated, patient requires 3 additional doses of the cisplatin , ifosfamide, and Mesna, second dose of total of 3 additional doses for chemo, which was done yesterday Neutropenic/anemic, platelet level is normal, likely from chemo, continue chemo , put on neutropenic precaution Today's WBC is 0.37, will talk to hematology if it is going to give patient Neulasta ? Abdominal distention: Likely to be a bulky tumor with some ascites, discussed possible fluid removal, discussed the risk and benefit of fluid removal, will hold the procedure of paracentesis for now Chronic kidney disease stage 2, GFR 60-89 ml/min: Severe abdominal distention/pain and scrotal pain: See below 3+ edema and scrotal edema, likely because of hypoalbuminemia , try small dose of Lasix for comfortable today, dietitian Discussed with patient, ann, palliative care, will continue pain control, goal of the care will be still full code, per patient and family request, likely poor prognosis, Subjective Was having significant pain this morning, the pain was localized in the abdomen and scrotal area, she is getting narcotic medication, optical pain medication he was so lethargic, Abdominal CT was done today, found ascites, Review of Systems Constitutional: Positive weakness, or fatigue, and pain, Respiratory: no cough, sputum, wheezing, or dyspnea on exertion Cardiac: No chest pain, No orthopnea, No PND, Abdomen: See HPI, no nausea vomiting however possible constipation, Musculoskeletal: Positive lower extremity swelling, no joint pain, : No incontinence, No hematuria Neurologic: No paralysis, No weakness, No numbness/tingling, Psychiatric: No depression symptoms, No anhedonism, No anxiety, Heme: No abnormal bleeding/bruising, No clotting problems, No swollen lymph nodes, No night sweats Skin: No rash, No itch, No new/changing skin lesions, No color change, No bleeding Physical Exam 2 Vital Signs (Past 24 Hours): Last Vital Signs Temp 36.6 C 08/22/18 06:58 Pulse 80 08/22/18 06:58 Resp 18 08/22/18 06:58 BP 131/84 08/22/18 06:58 Pulse Ox 94 08/22/18 06:58 Physical Exam: General Appearance: Significant pain, frail, pale, chronically ill looking, Eyes: normal inspection, PERRL, EOMI, sclerae normal ENT: normal ENT inspection, hearing grossly normal, pharynx normal Neck: supple, no adenopathy, thyroid normal, no JVD, no carotid bruits, trachea midline Respiratory/Chest: chest non-tender, normal breath sounds, no respiratory distress, no accessory muscle use, breath sounds, rales, wheezing Cardiovascular: regular rate, rhythm, no JVD, no murmur Abdomen: Severe distended, firm, positive tender, scrotal area is swelling 2, Extremities: 3+ edema, normal range of motion, non-tender, normal inspection, joint has no limited range of motion, capillary refill is normal, no cyanosis clubbing Neurologic/Psychiatric: hand kiss setter II-XII nml as tested, no motor/sensory deficits, alert, normal mood/affect, oriented x 3 Skin: normal color, warm/dry, no rash Lymphatic: no adenopathy Results & Data Laboratory Results Laboratory Results - last 24 hr 08/22/18 08/22/18 08/22/18 05:59 06:05 06:22 WBC RBC Hgb Hct MCV MCH MCHC RDW Std Deviation RDW Coeff of Zuleima Plt Count MPV Immature Gran % (Auto) Neut % (Auto) Lymph % (Auto) Hendry % (Auto) Eos % (Auto) Baso % (Auto) Immature Gran # (Auto) Neut # (Auto) Lymph # (Auto) Hendry # (Auto) Eos # (Auto) Baso # (Auto) Neutrophils % (Manual) Band Neutrophils % Lymphocytes % (Manual) Prolymphocyte % Reactive Lymphs % (Man) Monocytes % (Manual) Eosinophils % (Manual) Basophils % (Manual) Metamyelocytes % (Man) Myelocytes % (Man) Promyelocytes % (Man) Blast Cells % (Manual) Plasma Cell % (Manual) Other Cells % Nucleated RBC % Neutrophils # (Manual) Band Neutrophils # Total Absolute Neuts Lymphocytes # (Manual) Prolymphocyte # Reactive Lymphs # Total Abs Lymphocytes Monocytes # (Manual) Eosinophils # (Manual) Basophils # (Manual) Metamyelocytes # (Man) Myelocytes # (Manual) Promyelocytes # (Man) Blast Cells # (Man) Plasma Cell # (Manual) Other Cells # Nucleated RBCs # (Man) Hypersegmented Neuts Hyposegmented Neuts Hypogranular Neuts Large Granular Lymphs # Lrg Granular Lymphs Hairy Cells Smudge Cells Toxic Granulation Toxic Vacuolation Dohle Bodies Didier Rods Hypogranular Platelets Clumped Platelets Giant Platelets Platelet Satelliting RBC Morphology Polychromasia Hypochromasia Poikilocytosis Basophilic Stippling Anisocytosis Microcytosis Macrocytosis Spherocytes Pappenheimer Bodies Sickle Cells Target Cells Tear Drop Cells Ovalocytes Stomatocytes [place] Bodies Echinocytes Acanthocytes (Spur) Rouleaux RBC Agglutinates Schistocytes RBC Morph Comment Sezary Cell Sodium Potassium Chloride Carbon Dioxide Anion Gap BUN Creatinine Est Cr Clr Drug Dosing Est GFR ( Amer) Est GFR (Non-Af Amer) BUN/Creatinine Ratio Glucose POC Glucose 52 L* 47 L* 112 H Calcium Phosphorus Magnesium 08/22/18 08/22/18 08/22/18 06:37 06:37 07:40 WBC 0.37 L* RBC 3.39 L Hgb 7.9 L Hct 25.5 L MCV 75.2 L MCH 23.3 L MCHC 31.0 L RDW Std Deviation 47.4 H RDW Coeff of Zuleima 17.2 H Plt Count 182 MPV 7.9 Immature Gran % (Auto) Cancelled Neut % (Auto) Cancelled Lymph % (Auto) Cancelled Hendry % (Auto) Cancelled Eos % (Auto) Cancelled Baso % (Auto) Cancelled Immature Gran # (Auto) Cancelled Neut # (Auto) Cancelled Lymph # (Auto) Cancelled Hendry # (Auto) Cancelled Eos # (Auto) Cancelled Baso # (Auto) Cancelled Neutrophils % (Manual) Cancelled Band Neutrophils % Cancelled Lymphocytes % (Manual) Cancelled Prolymphocyte % Cancelled Reactive Lymphs % (Man) Cancelled Monocytes % (Manual) Cancelled Eosinophils % (Manual) Cancelled Basophils % (Manual) Cancelled Metamyelocytes % (Man) Cancelled Myelocytes % (Man) Cancelled Promyelocytes % (Man) Cancelled Blast Cells % (Manual) Cancelled Plasma Cell % (Manual) Cancelled Other Cells % Cancelled Nucleated RBC % Cancelled Neutrophils # (Manual) Cancelled Band Neutrophils # Cancelled Total Absolute Neuts Cancelled Lymphocytes # (Manual) Cancelled Prolymphocyte # Cancelled Reactive Lymphs # Cancelled Total Abs Lymphocytes Cancelled Monocytes # (Manual) Cancelled Eosinophils # (Manual) Cancelled Basophils # (Manual) Cancelled Metamyelocytes # (Man) Cancelled Myelocytes # (Manual) Cancelled Promyelocytes # (Man) Cancelled Blast Cells # (Man) Cancelled Plasma Cell # (Manual) Cancelled Other Cells # Cancelled Nucleated RBCs # (Man) Cancelled Hypersegmented Neuts Cancelled Hyposegmented Neuts Cancelled Hypogranular Neuts Cancelled Large Granular Lymphs Cancelled # Lrg Granular Lymphs Cancelled Hairy Cells Cancelled Smudge Cells Cancelled Toxic Granulation Cancelled Toxic Vacuolation Cancelled Dohle Bodies Cancelled Didier Rods Cancelled Hypogranular Platelets Cancelled Clumped Platelets Cancelled Giant Platelets Cancelled Platelet Satelliting Cancelled RBC Morphology Cancelled Polychromasia Cancelled Hypochromasia Cancelled Poikilocytosis Cancelled Basophilic Stippling Cancelled Anisocytosis Cancelled Microcytosis Cancelled Macrocytosis Cancelled Spherocytes Cancelled Pappenheimer Bodies Cancelled Sickle Cells Cancelled Target Cells Cancelled Tear Drop Cells Cancelled Ovalocytes Cancelled Stomatocytes Cancelled [place] Bodies Cancelled Echinocytes Cancelled Acanthocytes (Spur) Cancelled Rouleaux Cancelled RBC Agglutinates Cancelled Schistocytes Cancelled RBC Morph Comment Cancelled Sezary Cell Cancelled Sodium 133 L Potassium 3.7 Chloride 101 Carbon Dioxide 24 Anion Gap 8.0 BUN 40 H Creatinine 1.08 Est Cr Clr Drug Dosing 113.8 Est GFR ( Amer) 109.2 Est GFR (Non-Af Amer) 94.2 BUN/Creatinine Ratio 36.6 H Glucose 91 POC Glucose 130 H Calcium 7.9 L Phosphorus 4.0 Magnesium 2.0 08/22/18 08/22/18 08/22/18 11:56 11:57 12:58 WBC RBC Hgb Hct MCV MCH MCHC RDW Std Deviation RDW Coeff of Zuleima Plt Count MPV Immature Gran % (Auto) Neut % (Auto) Lymph % (Auto) Hendry % (Auto) Eos % (Auto) Baso % (Auto) Immature Gran # (Auto) Neut # (Auto) Lymph # (Auto) Hendry # (Auto) Eos # (Auto) Baso # (Auto) Neutrophils % (Manual) Band Neutrophils % Lymphocytes % (Manual) Prolymphocyte % Reactive Lymphs % (Man) Monocytes % (Manual) Eosinophils % (Manual) Basophils % (Manual) Metamyelocytes % (Man) Myelocytes % (Man) Promyelocytes % (Man) Blast Cells % (Manual) Plasma Cell % (Manual) Other Cells % Nucleated RBC % Neutrophils # (Manual) Band Neutrophils # Total Absolute Neuts Lymphocytes # (Manual) Prolymphocyte # Reactive Lymphs # Total Abs Lymphocytes Monocytes # (Manual) Eosinophils # (Manual) Basophils # (Manual) Metamyelocytes # (Man) Myelocytes # (Manual) Promyelocytes # (Man) Blast Cells # (Man) Plasma Cell # (Manual) Other Cells # Nucleated RBCs # (Man) Hypersegmented Neuts Hyposegmented Neuts Hypogranular Neuts Large Granular Lymphs # Lrg Granular Lymphs Hairy Cells Smudge Cells Toxic Granulation Toxic Vacuolation Dohle Bodies Didier Rods Hypogranular Platelets Clumped Platelets Giant Platelets Platelet Satelliting RBC Morphology Polychromasia Hypochromasia Poikilocytosis Basophilic Stippling Anisocytosis Microcytosis Macrocytosis Spherocytes Pappenheimer Bodies Sickle Cells Target Cells Tear Drop Cells Ovalocytes Stomatocytes [place] Bodies Echinocytes Acanthocytes (Spur) Rouleaux RBC Agglutinates Schistocytes RBC Morph Comment Sezary Cell Sodium Potassium Chloride Carbon Dioxide Anion Gap BUN Creatinine Est Cr Clr Drug Dosing Est GFR ( Amer) Est GFR (Non-Af Amer) BUN/Creatinine Ratio Glucose POC Glucose 43 L* 46 L* 118 H Calcium Phosphorus Magnesium 08/22/18 17:01 WBC RBC Hgb Hct MCV MCH MCHC RDW Std Deviation RDW Coeff of Zuleima Plt Count MPV Immature Gran % (Auto) Neut % (Auto) Lymph % (Auto) [place] % (Auto) Eos % (Auto) Baso % (Auto) Immature Gran # (Auto) Neut # (Auto) Lymph # (Auto) [place]ry # (Auto) Eos # (Auto) Baso # (Auto) Neutrophils % (Manual) Band Neutrophils % Lymphocytes % (Manual) Prolymphocyte % Reactive Lymphs % (Man) Monocytes % (Manual) Eosinophils % (Manual) Basophils % (Manual) Metamyelocytes % (Man) Myelocytes % (Man) Promyelocytes % (Man) Blast Cells % (Manual) Plasma Cell % (Manual) Other Cells % Nucleated RBC % Neutrophils # (Manual) Band Neutrophils # Total Absolute Neuts Lymphocytes # (Manual) Prolymphocyte # Reactive Lymphs # Total Abs Lymphocytes Monocytes # (Manual) Eosinophils # (Manual) Basophils # (Manual) Metamyelocytes # (Man) Myelocytes # (Manual) Promyelocytes # (Man) Blast Cells # (Man) Plasma Cell # (Manual) Other Cells # Nucleated RBCs # (Man) Hypersegmented Neuts Hyposegmented Neuts Hypogranular Neuts Large Granular Lymphs # Lrg Granular Lymphs Hairy Cells Smudge Cells Toxic Granulation Toxic Vacuolation Dohle Bodies Didier Rods Hypogranular Platelets Clumped Platelets Giant Platelets Platelet Satelliting RBC Morphology Polychromasia Hypochromasia Poikilocytosis Basophilic Stippling Anisocytosis Microcytosis Macrocytosis Spherocytes Pappenheimer Bodies Sickle Cells Target Cells Tear Drop Cells Ovalocytes Stomatocytes [place] Bodies Echinocytes Acanthocytes (Spur) Rouleaux RBC Agglutinates Schistocytes RBC Morph Comment Sezary Cell Sodium Potassium Chloride Carbon Dioxide Anion Gap BUN Creatinine Est Cr Clr Drug Dosing Est GFR ( Amer) Est GFR (Non-Af Amer) BUN/Creatinine Ratio Glucose POC Glucose 76 Calcium Phosphorus Magnesium _ (1) Testicular cancer Descendance of testis: unspecified Laterality: unspecified laterality Qualified Code(s): C62.90 - Malignant neoplasm of unspecified testis, unspecified whether descended or undescended
[2018-08-22] MEDS: HEPARIN 100 UNIT/ML 5ML FLUSH FLUSH PRN (12:38)
--- NOTE | 2018-08-22 12:41 | Palliative Care Progress Note ---
Date of Service August 22, 2018 Assessment & Plan (1) Palliative care encounter: Patient is a 28-year-old male with metastatic testicular cancer diagnosed in June 2017. 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 Patient's alpha-fetoprotein remained elevated after resection-in August 2017 CT scan showed large retroperitoneal mass involving the left ureter and aorta. Patient underwent chemo from September through December-on 01/29 he underwent surgical resection of the mass-fianc reports that they were told it was removed completely. Patient was lost to follow-up until this August when he presented with an enlarged abdomen and lower extremity edema. CT scan done on 07/23 showed mediastinal adenopathy as well as paratracheal, avascular necrosis of the left hip, right kidney infarct with scarring, large multiple masses in the omentum and mesentery, pelvic mass 8.5 cm, a 2.3 cm left inguinal mass and lesions abutting the liver. Patient's market abdominal distention was evaluated by ultrasound on 08/13-this showed trace ascites. -Today patient increasingly sedated compared to yesterday. Patient barely able to open his eyes and state his or his fiance name, although he did wake up and slurred "Dilaudid" -I think that this patients current mental status appears to be narcotic dosing related, but could also have an underlying rapid tumor progression as well, warranting further work up. -When I saw the patient, he even appears more sanchez than yesterday. His fiance', Alida, was at the bedside and tearful. She stated that she wants to know prognosis and that she 'can take it'. -I think that having additional imaging will allow an appropriate discussion regarding GOALS OF CARE. Unfortunately, if this is indeed tumor progression, per oncology he may not be responsive to additional chemotherapy and his life expectancy may be guarded. -CODE STATUS is currently a FULL CODE. As of yesterday, in discussion the patients mother and father agreed that they would not want him to go through CPR but want him to 'fight'. We discussed that not doing CPR does not mean stopping treatment. -Due to the family dynamics, this needs to be addressed with the family again, which is appropriate after imaging response as well. -Once additional information is known, another conversation will need to be held with the patient's parents as they are legally next of kin in the event the patient is not able to wake and participate in the discussion. (2) Abdominal pain: Due to advanced metastatic disease-transition to p.o. pain medication. Pt was started on MS Contin 60 mg Q 8. Would like to keep something for breatkthrough that is IV compared to po because patient is so sedated. -Current pain management is as follows: MS Contin 60 mg po Q8 which was started on 08/21 Oxy IR 10 mg po Q6 PRN (last doses received 08/21 1900 and 08/22 550) Dilaudid 1 mg IV Q2 PRN (last dose received 08/22 930) Morphine IR 15 mg Q 4 PRN (last doses received 08/21 1800, 2300 Will keep MS Contin 60 mg Q8 for scheduled longer acting coverage and then keep Dilaudid 1 mg IV Q2 PRN Will D/C Oxy IR and Morphine IR and if patient improves to where we need to consider converting to po we will recalculate usage. (3) Testicular cancer: -Patient receiving aggressive chemo-plan is to continue with aggressive chemo. Patient and family beginning to grasp the severity of his disease -Additional diagnostic imaging is being completed including a head CT and (4) Abdominal distention: Due to extensive metastatic disease, plan for additional diagnostic testing abdominal CT and head MRI to rule out further metastasis or any underlying infection. (5) Anxiety: Continue as needed Xanax or Ativan (6) Urinary retention: Slightly improved per patient's fianc-with molina catheter Subjective -Patient evaluated for follow up. -Patient increasingly sedated compared to yesterday. Patient barely able to open his eyes and state his or his fiance name, athough he did wake up and slurred "Dilaudid" -Current pain management is as follows: MS Contin 60 mg po Q8 which was started on 08/21 Oxy IR 10 mg po Q6 PRN (last doses received 08/21 1900 and 08/22 0550) Dilaudid 1 mg IV Q2 PRN (last dose received 08/22 930) Morphine IR 15 mg Q 4 PRN (last doses received 08/21 1800, 2300) I think that this patients current mental status appears to be narcotic dosing related, but could also have an underlying rapid tumor progression as well, warranting further work up. I spoke with Dr. Cruz who agreed he appears to be declining, but we agree that moving forward with additional diagnostic imaging of his head and abdomen is appropriate to gain a better understanding regarding diagnosis and to rule out any underlying organic infection. When I saw the patient, he even appears more sanchez than yesterday. His fiance', Alida, was at the bedside and tearful. She stated that she wants to know prognosis and that she 'can take it'. I think that having additional imaging will allow an appropriate discussion regarding GOALS OF CARE. Unfortunately, if this is indeed tumor progression, per oncology he may not be responsive to additional chemotherapy and his life expectancy may be guarded. Once additional information is known, another conversation will need to be held with the patient's parents as they are legally next of kin in the event the patient is not able to wake and participate in the discussion. Review of Systems Patient unable to participate in ROS as he is sedate Physical Exam 2 Vital Signs (Past 24 Hours): Last Vital Signs Temp 36.6 C 08/22/18 06:58 Pulse 80 08/22/18 06:58 Resp 18 08/22/18 06:58 BP 131/84 08/22/18 06:58 Pulse Ox 94 08/22/18 06:58 Physical Exam: Patient appears to be resting, but uncomfortable to touch Eyes: Patient intermittently and drowsily opens his eyes but not enough to have eye focus Neck: trachea midline, no thyromegaly Respiratory: normal respiratory effort, lungs clear to auscultation Cardiovascular: Rate/Rhythm: regular rate and regular rhythm Heart Sounds: normal S1 and normal S2 Extremities: + edema (LLE +3) Gastrointestinal (Abdomen): Inspection/Auscultation: + abdomen distended, + abdominal edema, + visible herniation and + visible peristalsis Percussion/ Palpation: + guarding umbilical hernia Skin: no rashes, warm and dry + skin tightening sanchez hue to whole body Psychiatric: Orientation: oriented to person Hallucinations: + visual hallucinations (was having hallcuinations yesterday, no longer today, but patient also is sedated) unable to fully gain understanding about patients mental state. Patient is sedate and opens eyes to voice at times and states his name Genitourinary: + edematous penis, + edematous scrotum, + scrotal mass, + testicular swelling and + testicular tenderness Supervising Physician Co-Signing Physician Notes Patient seen and examined later this afternoon. Patient's fianc, younger brother, and both parents at bedside. Patient is sedated but appears comfortable. Patient will awaken briefly and is much more comfortable compared to exam yesterday. Patient is too sedated to participate in any meaningful conversation regarding goals of care or CODE STATUS. Dr. Cruz ordered abdominal CT as he felt patient's abdomen was much more distended than earlier this week. Hollie had stated yesterday that she did not feel it was significantly different from when the ultrasound was performed [address] scan did show large amount of ascites in the abdomen and pelvis, it also showed significant disease progression. PE: Patient resting comfortably, does arouse for short periods of time HEENT: EOMI, normal hearing CV: Tachycardic Abdomen: Less tense compared to exam yesterday, nontender to light palpation Extremities: 3+ edema Neuro: Patient sedated, does arouse easily, not alert enough for medical decision making Agree with above note, assessment and plan as per BELINDA Monroy P-we will continue to follow to assist with medical decision making and goals of care Time Spent Midlevel Total time spent 65 minutes with > 50% of that time reviewing the chart, assessing the patient, discussing GOALS OF CARE and symptom management with IDT. _ (1) Testicular cancer Descendance of testis: descended Laterality: left Qualified Code(s): C62.12 - Malignant neoplasm of descended left testis (2) Abdominal pain Abdominal location: generalized Qualified Code(s): R10.84 - Generalized abdominal pain
[2018-08-22] MEDS ORDERED: IOVERSOL 100ml IV PRN (13:10)
--- NOTE | 2018-08-22 13:38 | CT Scan Report ---
ABDOMEN AND PELVIS CT WITH IV CONTRAST CT DOSE: 514.19 mGy.cm HISTORY: Follow-up study in a patient with metastatic testicular cancer spreading cancer disease TECHNIQUE: Multiaxial CT images of the abdomen and pelvis were performed following the use of intrave nous contrast. A dose lowering technique was utilized adhering to the principles of ALARA. COMPARISON STUDY: CT abdomen and pelvis 07/23/2018. FINDINGS: Trace left and small right pleural effusions are new from comparison.) Left dependent bibasilar cons olidative opacities. No pneumatosis or pneumoperitoneum identified. Partially imaged [id number] ca theter projects over the right atrium. Imaged inferior cardiac chambers are otherwise unremarkable wi th trace pericardial effusion. Gallbladder, liver, and pancreas are unremarkable. The adrenal glands are not well seen. Remote scarr ing with cortical thinning about the inferior pole right kidney which otherwise is unremarkable. No h ydronephrosis. Absent left kidney. Multiple surgical clips about the retroperitoneum and left hemipel vis redemonstrated suggesting prior devin dissection. Coates catheter noted within a partially decompr essed bladder. No aortic aneurysm. Large amount of abdominal pelvic ascites, progressed from comparison. Multifocal mesenteric, omental and peritoneal carcinomatosis. Conglomerate masses about the pelvis are seen clover uring up to 8.9 x 14.8 cm. Masses about the left midabdomen measuring up to 6.7 cm have increased in size from comparison. Mass on image 16 series 3 measuring 4.7 cm, previously measured 4.2 cm. Adenopa thy about the left inguinal distribution measures 3.4 x 2.0 cm, previously measuring 2.3 x 1.6 cm. Moderate general is body wall edema. Gaseous distention of the distal esophagus. No small bowel obstr uction. Luminal narrowing about the splenic flexure is noted. Gaseous distention of the colon proxima l to this area measures 7.4 cm. Several loops of small bowel demonstrate mild gaseous distention. Mul tiple polypoid foci noted about the colon, predominately subcentimeter. No suspicious lytic or blastic bony lesions. Left femoral head avascular necrosis with mild flattenin g of the articular surface redemonstrated. Cannulated screws about the left femoral neck. IMPRESSION: 1. Progressive peritoneal and omental carcinomatosis with large volume of abdominal pelvic ascites, a lso progressed from comparison. 2. New bilateral pleural effusions with diffuse generalized body wall edema. 3. Narrowing of the splenic flexure with gaseous distention of colon seen proximally to this area. No ndistention versus stricture from underlying mucosal neoplasm, adhesion or extrinsic mass effect from peritoneal carcinomatosis are differential considerations. 4. No small bowel obstruction. 5. Postoperative changes as above. Electronically signed by: Juan Huynh M.D. 08/22/2018 1:37 PM
--- NOTE | 2018-08-22 13:41 | XRay Report ---
XR chest 2V routine HISTORY: lethargic , to rule out infection COMPARISON: Chest 08/06/2018. FINDINGS: There are low lung volumes. Trace bilateral pleural effusions. The heart is top normal in s ize. Left jugular Port-A-Cath terminates at the right atrium. Mild central pulmonary vascular congest ion without overt edema. Hazy appearance the lung bases likely represents a layering pleural fluid. T here is upper lung zones are clear. Distended and gas-filled colon which is partially visualized. The transverse colon measures up to 8 cm in diameter. IMPRESSION: 1. Low lung volumes with trace bilateral pleural effusions. 2. Hazy appearance to the lung bases may represent the layering pleural fluid. 3. Mild central pulmonary vascular congestion without overt edema. 4. Distended and gas-filled colon measuring up to 8 cm in diameter. Clinical correlation recommended to assess for an ileus versus obstruction. Electronically signed by: Zackary Delatorre M.D. 08/22/2018 1:40 PM
[2018-08-22] MEDS: POTASSIUM CHLORIDE 10 MEQ in D5W AND NSS 1,000 ML IV SCH ×2 (13:44→14:23)
--- NOTE | 2018-08-22 16:36 | Hematology/Oncology Prog Note ---
Date of Service August 22, 2018 Assessment & Plan (1) Testicular cancer: Mr. Leigh was heavily sedated when I saw him earlier. Palliative care saw him around that time and recommended reductions in his narcotic doses. This seems to have made a difference, as he was more alert and interactive in the afternoon. Earlier, I also recommended some repeat scans and asked Dr. Mai to work him up for an occult infection, given his low counts. Despite his improvement, I am very concerned about Mr. Leigh. His scans look markedly worse. Now, some of that progression likely happened prior to the start of his treatment and I do not necessarily think it reflects failure of chemotherapy. However, I am concerned that he may not survive long enough to see a benefit even if he does start to respond. Right now, he is not in extremis and I do not think that comfort measures or end-of-life care are necessary. I would optimize his supportive care and would consider a paracentesis to help relieve his abdominal discomfort. Hopefully, these interventions, and more optimal narcotic management, will buy us some time to see if his disease will respond to treatment. If he makes a marked turn for the worse, however, I likely would advise comfort measures, as his disease has proven very aggressive and it is not at all clear that he will respond to treatment or make a meaningful recovery. Present on Admission?: Yes Subjective When I came to see Vish this morning, he was heavily sedated. He was arousable but sluggish. His girlfriend told me he was confused and hallucinating all night. When I came back later in the day, he was more alert. His eyes were open spontaneously and he was sitting up. However, he still was slow to answer questions. He said his pain is a bit better and he is still very bloated and uncomfortable in his abdomen. Review of Systems ROS was limited due to altered mental status. See HPI for positives. Physical Exam 2 Vital Signs (Past 24 Hours): Last Vital Signs Temp 36.6 C 08/22/18 15:00 Pulse 105 H 08/22/18 15:00 Resp 16 08/22/18 15:00 BP 135/93 08/22/18 15:00 Pulse Ox 95 08/22/18 15:00 Constitutional: + ill appearing and + cachectic; no acute distress ENMT: external ear and nose normal, oropharynx normal Respiratory: normal respiratory effort, lungs clear to auscultation Cardiovascular: Rate/Rhythm: regular rate and regular rhythm Extremities: + edema (anasarca and pitting LE edema to his groin) Gastrointestinal (Abdomen): Inspection/Auscultation: + abdomen distended and normal bowel sounds Percussion/Palpation: + abdominal mass (multiple palpable abdominal masses), + ascites and + abdomen firm; abdomen nontender and no guarding Neurologic: awake and + confused Motor/Sensory: + fasciculations Psychiatric: Orientation: alert and oriented to place Results & Data Laboratory Results Abnormal lab results 08/22/18 08/22/18 08/22/18 Range/Units 05:59 06:05 06:22 WBC (4.8-10.8) K/uL RBC (4.7-6.1) M/uL Hgb (14.0-18.0) g/dL Hct (42-52) % MCV (80-100) fL MCH (25-34) pg MCHC (32-36) g/dL RDW Std Deviation (36.4-46.3) fL RDW Coeff of Zuleima (11.5-14.5) % Sodium (136-145) mmol/L BUN (7-18) mg/dl BUN/Creatinine Ratio (10-20) POC Glucose 52 L* 47 L* 112 H (70-99) Calcium (8.5-10.1) mg/dl 08/22/18 08/22/18 08/22/18 Range/Units 06:37 06:37 07:40 WBC 0.37 L* (4.8-10.8) K/uL RBC 3.39 L (4.7-6.1) M/uL Hgb 7.9 L (14.0-18.0) g/dL Hct 25.5 L (42-52) % MCV 75.2 L (80-100) fL MCH 23.3 L (25-34) pg MCHC 31.0 L (32-36) g/dL RDW Std Deviation 47.4 H (36.4-46.3) fL RDW Coeff of Zuleima 17.2 H (11.5-14.5) % Sodium 133 L (136-145) mmol/L BUN 40 H (7-18) mg/dl BUN/Creatinine Ratio 36.6 H (10-20) POC Glucose 130 H (70-99) Calcium 7.9 L (8.5-10.1) mg/dl 08/22/18 08/22/18 08/22/18 Range/Units 11:56 11:57 12:58 WBC (4.8-10.8) K/uL RBC (4.7-6.1) M/uL Hgb (14.0-18.0) g/dL Hct (42-52) % MCV (80-100) fL MCH (25-34) pg MCHC (32-36) g/dL RDW Std Deviation (36.4-46.3) fL RDW Coeff of Zuleima (11.5-14.5) % Sodium (136-145) mmol/L BUN (7-18) mg/dl BUN/Creatinine Ratio (10-20) POC Glucose 43 L* 46 L* 118 H (70-99) Calcium (8.5-10.1) mg/dl Diagnostic Findings CT A/P 08/22/18: IMPRESSION: 1. Progressive peritoneal and omental carcinomatosis with large volume of abdominal pelvic ascites, also progressed from comparison. 2. New bilateral pleural effusions with diffuse generalized body wall edema. 3. Narrowing of the splenic flexure with gaseous distention of colon seen proximally to this area. Nondistention versus stricture from underlying mucosal neoplasm, adhesion or extrinsic mass effect from peritoneal carcinomatosis are differential considerations. 4. No small bowel obstruction. 5. Postoperative changes as above. _ (1) Testicular cancer Descendance of testis: descended Laterality: left Qualified Code(s): C62.12 - Malignant neoplasm of descended left testis
--- NOTE | 2018-08-22 19:10 | Ultrasound Report ---
US paracentesis abd w/image CLINICAL HISTORY: 28 years-old Male presenting with cancerous ascites, a lot pain, please do tad. COMPARISON: CT from 08/22/2018. PROCEDURE: The procedure and its risks, benefits, and alternatives were discussed with the patient, and written informed consent was obtained. A timeout was performed to confirm patient identity. Limited ultrasound of the abdomen was performed to determine a safe needle entry site, and the site w as marker for paracentesis. The right lower quadrant was prepped and draped in the usual aseptic fashion. 1% Lidocaine was used f or local anesthesia. A paracentesis needle-sheath was inserted into the peritoneal space using ultrasound guidance. The ne edle was removed and the sheath was connected to tubing and a vacuum suction device. A total of 5 L o f clear yellow ascites was aspirated. The sheath was removed, and a dressing applied. The patient tolerated the procedure well. No immediate complications. IMPRESSION: Ultrasound-guided therapeutic paracentesis with aspiration of 5 L of ascites. Electronically signed by: Willie Castrejon M.D. 08/22/2018 7:09 PM
[2018-08-22] MEDS: HYDROmorphone INJ 1 MG/ML SYRINGE IV PRN (19:36)
[2018-08-22] MEDS: INSULIN GLARGINE SOLOSTAR 100 UNITS/ML 3 ML PEN SC SCH (21:11)
[2018-08-22] MEDS: ENOXAPARIN INJ 40 MG/0.4 ML SYR SQ SCH (21:51)
[2018-08-22] MEDS: MAGNESIUM HYDROXIDE SUSP 30 ML UDC PO PRN (21:52)
[2018-08-23] MEDS: DEXAMETHASONE CONC 3.75 MG, NYSTATIN 30 ML, DiphenhydrAMINE Syrup 300 MG, ORA-SWEET SYR... PO SCH ×6 (02:15→21:16)
[2018-08-23] MEDS: POTASSIUM CHLORIDE 10 MEQ in D5W AND NSS 1,000 ML IV SCH (03:14)
[2018-08-23] MEDS: HYDROmorphone INJ 1 MG/ML SYRINGE IV PRN ×4 (03:38→19:18)
[2018-08-23] MEDS: MoRPHine SULFATE CR 60 MG TABCR PO SCH ×3 (06:19→21:15)
[2018-08-23 06:24] LABS: Hemoglobin 7.7 g/dL (14.0-18.0); Mean Corpuscular Hgb Conc 32.1 g/dL (32-36); Mean Corpuscular Volume 74.5 fL (80-100); Mean Platelet Volume 7.8 fL (7.4-10.4); Platelet Count 143 K/uL (130-400); RDW Standard Deviation 47.2 fL (36.4-46.3); Red Blood Count 3.22 M/uL (4.7-6.1); White Blood Count 0.32 K/uL (4.8-10.8)
[2018-08-23 06:42] LABS: BUN Creatinine Ratio 36.9 (10-20); Calcium 7.6 mg/dl (8.5-10.1); Creatinine Clr Calc Pharmacy 132.1 ml/min; Est GFR (African American) 130.9; Est GFR (Non-African American) 112.9; Magnesium 1.8 mg/dl (1.8-2.4); Potassium 3.5 mmol/L (3.5-5.1)
[2018-08-23 06:44] LABS: Phosphorus 3.1 mg/dl (2.5-4.9)
[2018-08-23] MEDS ORDERED: PEGFILGRASTIM 6 MG/0.6 ML SYR SQ ONE (08:30)
[2018-08-23] MEDS: INSULIN ASPART 100 UNITS/ML 3 ML PEN SC SCH ×4 (08:49→21:14)
[2018-08-23] MEDS: NICOTINE 21 MG/24 HR TDSY TD SCH (09:22)
[2018-08-23] MEDS: CITALOPRAM 20 MG TAB PO SCH (09:22)
[2018-08-23] MEDS: DOXYCYCLINE HYCLATE 100 MG CAP PO SCH ×2 (09:22→21:15)
[2018-08-23] MEDS: ALPRAZolam 0.5 MG TABLET PO SCH ×2 (09:23→21:15)
[2018-08-23] MEDS: MAGNESIUM HYDROXIDE SUSP 30 ML UDC PO PRN (09:24)
[2018-08-23] MEDS: ONDANSETRON INJ 2 MG/ML 2 ML VIAL IV PRN (11:06)
--- NOTE | 2018-08-23 11:36 | Hospitalist Progress Note ---
Date of Service August 23, 2018 Assessment & Plan (1) Testicular cancer: (2) Abdominal distention: (3) CKD (chronic kidney disease) stage 2, GFR 60-89 ml/min: (4) Hyponatremia: (5) DVT prophylaxis: 28-year-old white male admitted on August 17, 2018 because of testis cancer and abdominal distention likely from cancer metastases, he was admitted on August 16, 2018 for the same condition but he was eloped on the day of admission, he has been agreeable to stay and started chemo therapy, Was having severe abdominal distention, Abdominal CT shows progression of ascites fluid, Paracentesis was done for therapeutic, 5 L of fluid was removed Testicular cancer with metastasis, with distended abdomen With evidence of metastatic cancer disease Oncology input appreciated, patient requires 3 additional doses of the cisplatin , ifosfamide, and Mesna, second dose of total of 3 additional doses for chemo, Which were all done on August 21, [address] with contrast per report in below 1. Progressive peritoneal and omental carcinomatosis with large volume of abdominal pelvic ascites, also progressed from comparison. 2. New bilateral pleural effusions with diffuse generalized body wall edema. 3. Narrowing of the splenic flexure with gaseous distention of colon seen proximally to this area. Nondistention versus stricture from underlying mucosal neoplasm, adhesion or extrinsic mass effect from peritoneal carcinomatosis are differential considerations. 4. No small bowel obstruction. 5. Postoperative changes as above. Neutropenic/anemic, platelet level is normal, likely from chemo, Continueneutropenic precaution, Neulasta Will be given today, Chronic kidney disease stage 2, GFR 60-89 ml/min: Severe abdominal distention/pain and scrotal pain:Better, 3+ edema and scrotal edema, likely because of hypoalbuminemia , DC IV fluid, try Lasix as needed, start regular diet Discussed with patient, ann, palliative care, will continue pain control, Full code, patient may going home if pain better controlled eating better, Discussed with patient about discontinue of Coates catheter, he would like to keep 1 day more Subjective Abdominal distention and pain has been improved after 5 L ascites fluid removal yesterday Still has abdominal pain, has been eating a little bit better, however still have lower extremity swelling 3+ and scrotal swelling, Denies fever chill, Review of Systems Constitutional: Positive weakness, or fatigue Respiratory: no cough, sputum, wheezing, or dyspnea on exertion Cardiac: No chest pain, No orthopnea, No PND, Abdomen: See HPI, Musculoskeletal: Positive lower extremity swelling 2-3+ : No incontinence, No hematuria Neurologic: No paralysis, No weakness, No numbness/tingling, Psychiatric: No depression symptoms, No anhedonism, No anxiety, Heme: No abnormal bleeding/bruising, No clotting problems, No swollen lymph nodes, No night sweats Skin: No rash, No itch, No new/changing skin lesions, No color change, No bleeding Physical Exam 2 Vital Signs (Past 24 Hours): Last Vital Signs Temp 36.6 C 08/23/18 07:32 Pulse 98 H 08/23/18 07:32 Resp 16 08/23/18 07:32 BP 128/82 08/23/18 07:32 Pulse Ox 98 08/23/18 07:32 Physical Exam: General Appearance: Significant pain, frail, pale, chronically ill looking, generally look a little bit better than yesterday Eyes: normal inspection, PERRL, EOMI, sclerae normal ENT: normal ENT inspection, hearing grossly normal, pharynx normal Neck: supple, no adenopathy, thyroid normal, no JVD, no carotid bruits, trachea midline Respiratory/Chest: normal breath sounds, left anterior chest wall has Mediport, no respiratory distress, no accessory muscle use, breath sounds, rales, wheezing Cardiovascular: regular rate, rhythm, no JVD, no murmur Abdomen: Moderately distended soft,positive tender, scrotal area is swelling 2, Extremities: 3+ edema, normal range of motion, non-tender, normal inspection, joint has no limited range of motion, capillary refill is normal, no cyanosis clubbing Neurologic/Psychiatric: corporate specialist II-XII nml as tested, no motor/sensory deficits, alert, normal mood/affect, oriented x 3 Skin: normal color, warm/dry, no rash Lymphatic: no adenopathy Results & Data Laboratory Results Laboratory Results - last 24 hr 08/22/18 08/22/18 08/22/18 11:56 11:57 12:58 WBC RBC Hgb Hct MCV MCH MCHC RDW Std Deviation RDW Coeff of Zuleima Plt Count MPV Immature Gran % (Auto) Neut % (Auto) Lymph % (Auto) [place] % (Auto) Eos % (Auto) Baso % (Auto) Immature Gran # (Auto) Neut # (Auto) Lymph # (Auto) [place] # (Auto) Eos # (Auto) Baso # (Auto) Neutrophils % (Manual) Band Neutrophils % Lymphocytes % (Manual) Prolymphocyte % Reactive Lymphs % (Man) Monocytes % (Manual) Eosinophils % (Manual) Basophils % (Manual) Metamyelocytes % (Man) Myelocytes % (Man) Promyelocytes % (Man) Blast Cells % (Manual) Plasma Cell % (Manual) Other Cells % Nucleated RBC % Neutrophils # (Manual) Band Neutrophils # Total Absolute Neuts Lymphocytes # (Manual) Prolymphocyte # Reactive Lymphs # Total Abs Lymphocytes Monocytes # (Manual) Eosinophils # (Manual) Basophils # (Manual) Metamyelocytes # (Man) Myelocytes # (Manual) Promyelocytes # (Man) Blast Cells # (Man) Plasma Cell # (Manual) Other Cells # Nucleated RBCs # (Man) Hypersegmented Neuts Hyposegmented Neuts Hypogranular Neuts Large Granular Lymphs # Lrg Granular Lymphs Hairy Cells Smudge Cells Toxic Granulation Toxic Vacuolation Dohle Bodies Didier Rods Hypogranular Platelets Clumped Platelets Giant Platelets Platelet Satelliting RBC Morphology Polychromasia Hypochromasia Poikilocytosis Basophilic Stippling Anisocytosis Microcytosis Macrocytosis Spherocytes Pappenheimer Bodies Sickle Cells Target Cells Tear Drop Cells Ovalocytes Stomatocytes [place] Bodies Echinocytes Acanthocytes (Spur) Rouleaux RBC Agglutinates Schistocytes RBC Morph Comment Sezary Cell Sodium Potassium Chloride Carbon Dioxide Anion Gap BUN Creatinine Est Cr Clr Drug Dosing Est GFR ( Amer) Est GFR (Non-Af Amer) BUN/Creatinine Ratio Glucose POC Glucose 43 L* 46 L* 118 H Calcium Phosphorus Magnesium 08/22/18 08/22/18 08/23/18 17:01 20:16 05:56 WBC 0.32 L* RBC 3.22 L Hgb 7.7 L Hct 24.0 L MCV 74.5 L MCH 23.9 L MCHC 32.1 RDW Std Deviation 47.2 H RDW Coeff of Zuleima 17.0 H Plt Count 143 MPV 7.8 Immature Gran % (Auto) Cancelled Neut % (Auto) Cancelled Lymph % (Auto) Cancelled [place] % (Auto) Cancelled Eos % (Auto) Cancelled Baso % (Auto) Cancelled Immature Gran # (Auto) Cancelled Neut # (Auto) Cancelled Lymph # (Auto) Cancelled [place] # (Auto) Cancelled Eos # (Auto) Cancelled Baso # (Auto) Cancelled Neutrophils % (Manual) Cancelled Band Neutrophils % Cancelled Lymphocytes % (Manual) Cancelled Prolymphocyte % Cancelled Reactive Lymphs % (Man) Cancelled Monocytes % (Manual) Cancelled Eosinophils % (Manual) Cancelled Basophils % (Manual) Cancelled Metamyelocytes % (Man) Cancelled Myelocytes % (Man) Cancelled Promyelocytes % (Man) Cancelled Blast Cells % (Manual) Cancelled Plasma Cell % (Manual) Cancelled Other Cells % Cancelled Nucleated RBC % Cancelled Neutrophils # (Manual) Cancelled Band Neutrophils # Cancelled Total Absolute Neuts Cancelled Lymphocytes # (Manual) Cancelled Prolymphocyte # Cancelled Reactive Lymphs # Cancelled Total Abs Lymphocytes Cancelled Monocytes # (Manual) Cancelled Eosinophils # (Manual) Cancelled Basophils # (Manual) Cancelled Metamyelocytes # (Man) Cancelled Myelocytes # (Manual) Cancelled Promyelocytes # (Man) Cancelled Blast Cells # (Man) Cancelled Plasma Cell # (Manual) Cancelled Other Cells # Cancelled Nucleated RBCs # (Man) Cancelled Hypersegmented Neuts Cancelled Hyposegmented Neuts Cancelled Hypogranular Neuts Cancelled Large Granular Lymphs Cancelled # Lrg Granular Lymphs Cancelled Hairy Cells Cancelled Smudge Cells Cancelled Toxic Granulation Cancelled Toxic Vacuolation Cancelled Dohle Bodies Cancelled Didier Rods Cancelled Hypogranular Platelets Cancelled Clumped Platelets Cancelled Giant Platelets Cancelled Platelet Satelliting Cancelled RBC Morphology Cancelled Polychromasia Cancelled Hypochromasia Cancelled Poikilocytosis Cancelled Basophilic Stippling Cancelled Anisocytosis Cancelled Microcytosis Cancelled Macrocytosis Cancelled Spherocytes Cancelled Pappenheimer Bodies Cancelled Sickle Cells Cancelled Target Cells Cancelled Tear Drop Cells Cancelled Ovalocytes Cancelled Stomatocytes Cancelled [place] Bodies Cancelled Echinocytes Cancelled Acanthocytes (Spur) Cancelled Rouleaux Cancelled RBC Agglutinates Cancelled Schistocytes Cancelled RBC Morph Comment Cancelled [place] Cell Cancelled Sodium Potassium Chloride Carbon Dioxide Anion Gap BUN Creatinine Est Cr Clr Drug Dosing Est GFR ( Amer) Est GFR (Non-Af Amer) BUN/Creatinine Ratio Glucose POC Glucose 76 77 Calcium Phosphorus Magnesium 08/23/18 08/23/18 05:56 08:05 WBC RBC Hgb Hct MCV MCH MCHC RDW Std Deviation RDW Coeff of Zuleima Plt Count MPV Immature Gran % (Auto) Neut % (Auto) Lymph % (Auto) [place] % (Auto) Eos % (Auto) Baso % (Auto) Immature Gran # (Auto) Neut # (Auto) Lymph # (Auto) [place] # (Auto) Eos # (Auto) Baso # (Auto) Neutrophils % (Manual) Band Neutrophils % Lymphocytes % (Manual) Prolymphocyte % Reactive Lymphs % (Man) Monocytes % (Manual) Eosinophils % (Manual) Basophils % (Manual) Metamyelocytes % (Man) Myelocytes % (Man) Promyelocytes % (Man) Blast Cells % (Manual) Plasma Cell % (Manual) Other Cells % Nucleated RBC % Neutrophils # (Manual) Band Neutrophils # Total Absolute Neuts Lymphocytes # (Manual) Prolymphocyte # Reactive Lymphs # Total Abs Lymphocytes Monocytes # (Manual) Eosinophils # (Manual) Basophils # (Manual) Metamyelocytes # (Man) Myelocytes # (Manual) Promyelocytes # (Man) Blast Cells # (Man) Plasma Cell # (Manual) Other Cells # Nucleated RBCs # (Man) Hypersegmented Neuts Hyposegmented Neuts Hypogranular Neuts Large Granular Lymphs # Lrg Granular Lymphs Hairy Cells Smudge Cells Toxic Granulation Toxic Vacuolation Dohle Bodies Didier Rods Hypogranular Platelets Clumped Platelets Giant Platelets Platelet Satelliting RBC Morphology Polychromasia Hypochromasia Poikilocytosis Basophilic Stippling Anisocytosis Microcytosis Macrocytosis Spherocytes Pappenheimer Bodies Sickle Cells Target Cells Tear Drop Cells Ovalocytes Stomatocytes [place] Bodies Echinocytes Acanthocytes (Spur) Rouleaux RBC Agglutinates Schistocytes RBC Morph Comment Sezary Cell Sodium 133 L Potassium 3.5 Chloride 103 Carbon Dioxide 23 Anion Gap 7.0 BUN 34 H Creatinine 0.93 Est Cr Clr Drug Dosing 132.1 Est GFR ( Amer) 130.9 Est GFR (Non-Af Amer) 112.9 BUN/Creatinine Ratio 36.9 H Glucose 85 POC Glucose 94 Calcium 7.6 L Phosphorus 3.1 Magnesium 1.8 _ (1) Testicular cancer Descendance of testis: unspecified Laterality: unspecified laterality Qualified Code(s): C62.90 - Malignant neoplasm of unspecified testis, unspecified whether descended or undescended
[2018-08-23] MEDS ORDERED: HEPARIN 100 UNIT/ML 5ML FLUSH FLUSH STA (14:31)
[2018-08-23] MEDS ORDERED: HEPARIN 100 UNIT/ML 5ML FLUSH ONE ×2 (19:16→23:33)
[2018-08-23] MEDS: ENOXAPARIN INJ 40 MG/0.4 ML SYR SQ SCH ×2 (21:13→21:26)
[2018-08-23] MEDS: INSULIN GLARGINE SOLOSTAR 100 UNITS/ML 3 ML PEN SC SCH (21:14)
[2018-08-23] MEDS: LORazepam 0.5 MG/1 ML VIAL IV PRN ×2 (21:22→23:38)
[2018-08-24] MEDS: DEXAMETHASONE CONC 3.75 MG, NYSTATIN 30 ML, DiphenhydrAMINE Syrup 300 MG, ORA-SWEET SYR... PO SCH ×7 (02:29→23:46)
[2018-08-24] MEDS: MoRPHine SULFATE CR 60 MG TABCR PO SCH ×3 (06:11→21:37)
[2018-08-24 06:21] LABS: Hematocrit (blood only) 24.5 % (42-52); Hemoglobin 7.7 g/dL (14.0-18.0); Mean Corpuscular Hgb Conc 31.4 g/dL (32-36); Mean Corpuscular Volume 73.8 fL (80-100); Platelet Count 140 K/uL (130-400); Red Blood Count 3.32 M/uL (4.7-6.1); White Blood Count 0.23 K/uL (4.8-10.8)
[2018-08-24 06:26] LABS: BUN Creatinine Ratio 32.8 (10-20); Calcium 7.7 mg/dl (8.5-10.1); Creatinine Clr Calc Pharmacy 107.8 ml/min; Est GFR (African American) 102.3; Est GFR (Non-African American) 88.3; Magnesium 2.1 mg/dl (1.8-2.4); Phosphorus 2.9 mg/dl (2.5-4.9); Potassium 3.4 mmol/L (3.5-5.1)
[2018-08-24] MEDS ORDERED: POTASSIUM CHLORIDE 20 MEQ TABCR PO STA (09:08)
[2018-08-24] MEDS: INSULIN ASPART 100 UNITS/ML 3 ML PEN SC SCH ×4 (09:42→21:31)
[2018-08-24] MEDS: CITALOPRAM 20 MG TAB PO SCH (09:55)
[2018-08-24] MEDS: ALPRAZolam 0.5 MG TABLET PO SCH ×2 (09:56→21:37)
[2018-08-24] MEDS: NICOTINE 21 MG/24 HR TDSY TD SCH (09:56)
[2018-08-24] MEDS: DOXYCYCLINE HYCLATE 100 MG CAP PO SCH (09:56)
[2018-08-24] MEDS: HYDROmorphone INJ 1 MG/ML SYRINGE IV PRN ×3 (10:47→19:49)
[2018-08-24] MEDS: MAGNESIUM HYDROXIDE SUSP 30 ML UDC PO PRN ×2 (13:36→21:45)
[2018-08-24] MEDS: HEPARIN 100 UNIT/ML 5ML FLUSH FLUSH PRN (14:42)
[2018-08-24] MEDS ORDERED: FAMOTIDINE 20 MG TAB PO ONE (15:00)
--- NOTE | 2018-08-24 15:30 | Hospitalist Progress Note ---
Date of Service August 24, 2018 Assessment & Plan (1) Testicular cancer: (2) Abdominal distention: (3) CKD (chronic kidney disease) stage 2, GFR 60-89 ml/min: (4) Hyponatremia: (5) DVT prophylaxis: 28-year-old white male admitted on August 17, 2018 because of testis cancer and abdominal distention likely from cancer metastases, he was admitted on August 16, 2018 for the same condition but he was eloped on the day of admission, he has been agreeable to stay and started chemo therapy, Was having severe abdominal distention, Abdominal CT shows progression of ascites fluid, Paracentesis was done on August 22, 2018 for therapeutic, 5 L of fluid was removed Testicular cancer with metastasis, with distended abdomen With evidence of metastatic cancer disease Oncology input appreciated, patient requires 3 additional doses of the cisplatin , ifosfamide, and [place], second dose of total of 3 additional doses for chemo, Which were all done on August 21, [address] with contrast per report SHOWED : 1. Progressive peritoneal and omental carcinomatosis with large volume of abdominal pelvic ascites, also progressed from comparison. 2. New bilateral pleural effusions with diffuse generalized body wall edema. 3. Narrowing of the splenic flexure with gaseous distention of colon seen proximally to this area. Nondistention versus stricture from underlying mucosal neoplasm, adhesion or extrinsic mass effect from peritoneal carcinomatosis are differential considerations. 4. No small bowel obstruction. 5. Postoperative changes as above. Neutropenic/anemic, platelet level is normal, likely from chemo, white count is decreased continue to today, Continue neutropenic precaution, Neulasta was given yesterday, discussed with Dr. Herrera oncologist, will give 1- 2 days more to see Neulasta functioning, may want to GIVE Neupogen on top of it if needed Chronic kidney disease stage 2, GFR 60-89 ml/min: Severe abdominal distention/pain and scrotal pain:Better, 3+ edema and scrotal edema, likely because of hypoalbuminemia , DC IV fluid, try Lasix as needed, start regular diet Discussed with patient, ann, palliative care, will continue pain control, Full code, patient may going home if pain better controlled and eating better, and after neutropenic attending around [place] catheter will be discontinued Subjective Complain about significant scrotal area pain which is 6 out of 10, abdominal distention and pain has been improved after 5 L ascites fluid removal the day before Denies fever chill, Review of Systems Constitutional: Positive weakness, or fatigue Respiratory: no cough, sputum, wheezing, or dyspnea on exertion Cardiac: No chest pain, No orthopnea, No PND, Abdomen: See HPI, Musculoskeletal: Positive lower extremity swelling 2-3+ : No incontinence, No hematuria Neurologic: No paralysis, No weakness, No numbness/tingling, Psychiatric: No depression symptoms, No anhedonism, No anxiety, Heme: No abnormal bleeding/bruising, No clotting problems, No swollen lymph nodes, No night sweats Skin: No rash, No itch, No new/changing skin lesions, No color change, No bleeding Physical Exam 2 Vital Signs (Past 24 Hours): Last Vital Signs Temp 36.8 C 08/24/18 11:10 Pulse 102 H 08/24/18 11:10 Resp 18 08/24/18 11:10 BP 133/82 08/24/18 11:10 Pulse Ox 93 08/24/18 11:10 Physical Exam: General Appearance: Significant pain, frail, pale, chronically ill looking, tired and in pain Eyes: normal inspection, PERRL, EOMI, sclerae normal ENT: normal ENT inspection, hearing grossly normal, pharynx normal Neck: supple, no adenopathy, thyroid normal, no JVD, no carotid bruits, trachea midline Respiratory/Chest: chest non-tender, normal breath sounds, no respiratory distress, no accessory muscle use, breath sounds, rales, wheezing Cardiovascular: regular rate, rhythm, no JVD, no murmur Abdomen: Severe distended, firm, positive tender, scrotal area is swelling 2, Extremities: 3+ edema, normal range of motion, non-tender, normal inspection, joint has no limited range of motion, capillary refill is normal, no cyanosis clubbing Neurologic/Psychiatric: entry level drafter II-XII nml as tested, no motor/sensory deficits, alert, normal mood/affect, oriented x 3 Skin: normal color, warm/dry, no rash Lymphatic: no adenopathy Results & Data Laboratory Results Laboratory Results - last 24 hr 08/23/18 08/23/18 08/24/18 16:20 20:23 05:35 WBC 0.23 L* RBC 3.32 L Hgb 7.7 L Hct 24.5 L MCV 73.8 L MCH 23.2 L MCHC 31.4 L Plt Count 140 Immature Gran % (Auto) Cancelled Neut % (Auto) Cancelled Lymph % (Auto) Cancelled Schoolcraft % (Auto) Cancelled Eos % (Auto) Cancelled Baso % (Auto) Cancelled Immature Gran # (Auto) Cancelled Neut # (Auto) Cancelled Lymph # (Auto) Cancelled Schoolcraft # (Auto) Cancelled Eos # (Auto) Cancelled Baso # (Auto) Cancelled Neutrophils % (Manual) Cancelled Band Neutrophils % Cancelled Lymphocytes % (Manual) Cancelled Prolymphocyte % Cancelled Reactive Lymphs % (Man) Cancelled Monocytes % (Manual) Cancelled Eosinophils % (Manual) Cancelled Basophils % (Manual) Cancelled Metamyelocytes % (Man) Cancelled Myelocytes % (Man) Cancelled Promyelocytes % (Man) Cancelled Blast Cells % (Manual) Cancelled Plasma Cell % (Manual) Cancelled Other Cells % Cancelled Nucleated RBC % Cancelled Neutrophils # (Manual) Cancelled Band Neutrophils # Cancelled Total Absolute Neuts Cancelled Lymphocytes # (Manual) Cancelled Prolymphocyte # Cancelled Reactive Lymphs # Cancelled Total Abs Lymphocytes Cancelled Monocytes # (Manual) Cancelled Eosinophils # (Manual) Cancelled Basophils # (Manual) Cancelled Metamyelocytes # (Man) Cancelled Myelocytes # (Manual) Cancelled Promyelocytes # (Man) Cancelled Blast Cells # (Man) Cancelled Plasma Cell # (Manual) Cancelled Other Cells # Cancelled Nucleated RBCs # (Man) Cancelled Hypersegmented Neuts Cancelled Hyposegmented Neuts Cancelled Hypogranular Neuts Cancelled Large Granular Lymphs Cancelled # Lrg Granular Lymphs Cancelled Hairy Cells Cancelled Smudge Cells Cancelled Toxic Granulation Cancelled Toxic Vacuolation Cancelled Dohle Bodies Cancelled Didier Rods Cancelled Hypogranular Platelets Cancelled Clumped Platelets Cancelled Giant Platelets Cancelled Platelet Satelliting Cancelled RBC Morphology Cancelled Polychromasia Cancelled Hypochromasia Cancelled Poikilocytosis Cancelled Basophilic Stippling Cancelled Anisocytosis Cancelled Microcytosis Cancelled Macrocytosis Cancelled Spherocytes Cancelled Pappenheimer Bodies Cancelled Sickle Cells Cancelled Target Cells Cancelled Tear Drop Cells Cancelled Ovalocytes Cancelled Stomatocytes Cancelled [place] Bodies Cancelled Echinocytes Cancelled Acanthocytes (Spur) Cancelled Rouleaux Cancelled RBC Agglutinates Cancelled Schistocytes Cancelled RBC Morph Comment Cancelled Sezary Cell Cancelled Sodium Potassium Chloride Carbon Dioxide Anion Gap BUN Creatinine Est Cr Clr Drug Dosing Est GFR ( Amer) Est GFR (Non-Af Amer) BUN/Creatinine Ratio Glucose POC Glucose 128 H 148 H Calcium Phosphorus Magnesium 08/24/18 08/24/18 08/24/18 05:35 07:23 11:33 WBC RBC Hgb Hct MCV MCH MCHC Plt Count Immature Gran % (Auto) Neut % (Auto) Lymph % (Auto) Schoolcraft % (Auto) Eos % (Auto) Baso % (Auto) Immature Gran # (Auto) Neut # (Auto) Lymph # (Auto) Schoolcraft # (Auto) Eos # (Auto) Baso # (Auto) Neutrophils % (Manual) Band Neutrophils % Lymphocytes % (Manual) Prolymphocyte % Reactive Lymphs % (Man) Monocytes % (Manual) Eosinophils % (Manual) Basophils % (Manual) Metamyelocytes % (Man) Myelocytes % (Man) Promyelocytes % (Man) Blast Cells % (Manual) Plasma Cell % (Manual) Other Cells % Nucleated RBC % Neutrophils # (Manual) Band Neutrophils # Total Absolute Neuts Lymphocytes # (Manual) Prolymphocyte # Reactive Lymphs # Total Abs Lymphocytes Monocytes # (Manual) Eosinophils # (Manual) Basophils # (Manual) Metamyelocytes # (Man) Myelocytes # (Manual) Promyelocytes # (Man) Blast Cells # (Man) Plasma Cell # (Manual) Other Cells # Nucleated RBCs # (Man) Hypersegmented Neuts Hyposegmented Neuts Hypogranular Neuts Large Granular Lymphs # Lrg Granular Lymphs Hairy Cells Smudge Cells Toxic Granulation Toxic Vacuolation Dohle Bodies Didier Rods Hypogranular Platelets Clumped Platelets Giant Platelets Platelet Satelliting RBC Morphology Polychromasia Hypochromasia Poikilocytosis Basophilic Stippling Anisocytosis Microcytosis Macrocytosis Spherocytes Pappenheimer Bodies Sickle Cells Target Cells Tear Drop Cells Ovalocytes Stomatocytes [place] Bodies Echinocytes Acanthocytes (Spur) Rouleaux RBC Agglutinates Schistocytes RBC Morph Comment Sezary Cell Sodium 132 L Potassium 3.4 L Chloride 102 Carbon Dioxide 22 Anion Gap 9.0 BUN 37 H Creatinine 1.14 Est Cr Clr Drug Dosing 107.8 Est GFR ( Amer) 102.3 Est GFR (Non-Af Amer) 88.3 BUN/Creatinine Ratio 32.8 H Glucose 94 POC Glucose 108 H 76 Calcium 7.7 L Phosphorus 2.9 Magnesium 2.1 Microbiology 08/22/18 12:56 Blood Blood Culture - Preliminary No growth to date. 08/22/18 12:46 Blood Blood Culture - Preliminary No growth to date. _ (1) Testicular cancer Descendance of testis: unspecified Laterality: unspecified laterality Qualified Code(s): C62.90 - Malignant neoplasm of unspecified testis, unspecified whether descended or undescended
[2018-08-24] MEDS ORDERED: FUROSEMIDE 20 MG in SYRINGE 0 ML IV ONE (15:45)
[2018-08-24] MEDS: FAMOTIDINE 20 MG TAB PO SCH ×2 (16:02→21:38)
--- NOTE | 2018-08-24 19:08 | XRay Report ---
XR chest 1V portable CLINICAL HISTORY: Chest pain. COMPARISON STUDY: Chest radiograph August 22, 2018. FINDINGS: Left sided [id number] is in place. Lung volumes are diminished. This is unchanged. There is no consolidation to suggest pneumonia. There is no evidence for pulmonary edema. Bilateral pleura l effusions have likely decreased. There is persistent gaseous distention of the chest portions of th e colon. Gaseous distention of the stomach is noted. IMPRESSION: 1. Diminished lung volumes. Interval improvement in small bilateral pleural effusions. 2. Persistent gaseous distention of visualized portions of the colon. Electronically signed by: Guicho Olivera M.D. 08/24/2018 7:05 PM
[2018-08-24] MEDS: ENOXAPARIN INJ 40 MG/0.4 ML SYR SQ SCH (19:48)
[2018-08-24] MEDS: INSULIN GLARGINE SOLOSTAR 100 UNITS/ML 3 ML PEN SC SCH (21:30)
[2018-08-24] MEDS ORDERED: PHARMACY GLYCEMIC MGMT CONSULT PRN (21:37)
[2018-08-24] MEDS ORDERED: INSULIN GLARGINE SOLOSTAR 100 UNITS/ML 3 ML PEN SC ONE (21:45)
[2018-08-25] MEDS ORDERED: NALOXONE HCL 0.4 MG/1 ML VIAL/CARP IV PRN (05:46)
[2018-08-25] MEDS ORDERED: NALOXONE HCL 0.4 MG/1 ML VIAL/CARP ONE (05:46)
[2018-08-25] MEDS: HEPARIN 100 UNIT/ML 5ML FLUSH FLUSH PRN (05:48)
[2018-08-25] MEDS: MoRPHine SULFATE CR 60 MG TABCR PO SCH ×3 (06:14→22:05)
[2018-08-25] MEDS: DEXAMETHASONE CONC 3.75 MG, NYSTATIN 30 ML, DiphenhydrAMINE Syrup 300 MG, ORA-SWEET SYR... PO SCH ×5 (06:15→22:05)
[2018-08-25 06:57] LABS: Hematocrit (blood only) 21.6 % (42-52); Mean Corpuscular Hgb Conc 32.4 g/dL (32-36); Mean Corpuscular Volume 73.2 fL (80-100); Mean Platelet Volume 8.3 fL (7.4-10.4); Platelet Count 73 K/uL (130-400); RDW Standard Deviation 45.9 fL (36.4-46.3); Red Blood Count 2.95 M/uL (4.7-6.1); White Blood Count 0.07 K/uL (4.8-10.8)
[2018-08-25 06:57] LABS: HCO3 ABG 21 mmol/L (19-24); Oxygen Saturation ABG 92.2 % (90-95); PCO2 ABG 33 mmHg (35-46); PO2 ABG 68 mm/Hg (80-95); pH ABG 7.43 (7.35-7.45)
[2018-08-25 06:59] LABS: Allen Test POS (Pos)
[2018-08-25 07:01] LABS: Calcium 7.4 mg/dl (8.5-10.1); Creatinine Clr Calc Pharmacy 97.2 ml/min; Est GFR (African American) 95.2; Est GFR (Non-African American) 82.1; Magnesium 2.2 mg/dl (1.8-2.4); Potassium 3.5 mmol/L (3.5-5.1)
[2018-08-25] MEDS: CARBOHYDRATES FOR HYPOGLYCEMIA PO PRN ×4 (07:07→12:00)
--- NOTE | 2018-08-25 07:18 | XRay Report ---
XR chest 1V portable CLINICAL HISTORY: 28 years-old Male presenting with hypoxia, hx ascites and effusions. TECHNIQUE: Portable upright AP view of the chest was obtained. COMPARISON: 08/24/2018. FINDINGS: Left subclavian Mediport terminates in the right atrium. Cardiomediastinal silhouette normal. Mildly low lung volumes. Interval development of right basilar opacity likely with a trace right pleural eff usion. Increased pulmonary vascular prominence. Less extensive left basilar opacity new from prior. N o pneumothorax. Osseous structures normal. Surgical clips project over the epigastrium. Gaseous diste ntion of bowel. IMPRESSION: 1. Interval development of bibasilar infiltrates accompanied by increased pulmonary vascular promine nce. Differential considerations include infection, edema, or aspiration. 2. Gaseous distention of bowel. Electronically signed by: Willie Castrejon M.D. 08/25/2018 7:16 AM
[2018-08-25] MEDS: INSULIN ASPART 100 UNITS/ML 3 ML PEN SC SCH ×4 (07:33→20:27)
[2018-08-25] MEDS: ALPRAZolam 0.5 MG TABLET PO SCH ×2 (07:34→11:06)
[2018-08-25] MEDS: NICOTINE 21 MG/24 HR TDSY TD SCH (07:34)
[2018-08-25] MEDS: DEXTROSE 50% 50 ML SYRINGE IV PRN (07:50)
--- NOTE | 2018-08-25 09:46 | Pharmacy Report ---
Glycemic Control Consultation - Date of Service August 25, 2018 - Scope Scope: Glycemic Pharmacist consulted by Dr [] on [date] for glycemic control and to write orders per [facility] inpatient glycemic control protocol - Objective Weight: 74.3 kg Accuchecks BSG (last 24hrs): 08/24/18 08/24/18 08/24/18 11:33 16:27 17:12 Glucose POC Glucose 76 65 L* 69 L* 08/24/18 08/24/18 08/24/18 19:12 20:01 21:30 Glucose POC Glucose 65 L* 89 132 H 08/25/18 08/25/18 08/25/18 05:47 07:03 07:24 Glucose 53 L* POC Glucose 65 L* 52 L* 08/25/18 08/25/18 08/25/18 07:25 07:44 08:06 Glucose POC Glucose 51 L* 57 L* 102 H Laboratory Data (last 24hrs): 08/25/18 05:47 Potassium 3.5 Carbon Dioxide 24 Anion Gap 7.0 Creatinine 1.21 Est Cr Clr Drug Dosing 97.2 - Recent Pertinent Medications Outpatient Anti-diabetic Regimen: * Tresiba 21 units SQ daily plus Novolog The patient is currently receiving: * Basal insulin: Lantus 5 units every 24 hours in the evening * Correctional Insulin: Novolog Correction per scale ACHS Goal Range: Low 140 mg/dL - High 180 mg/dL Correction Factor: 30 mg/dL/unit * Prandial insulin: Per carb ratio of 1 unit per 18 grams CHO consumed Risk Factors for Insulin Resistance: * Diet: poor intake - Assessment & Plan Assessment & Plan: ASSESSMENT: * Mr Leigh is a 28 y/o M with T1DM and testicular CA admitted for abdominal pain. Patient has had decreased PO intake for several days. He has received no Novolog since 08/18/18 (approximately 1 week). He received 10 units of Lantus on 08-22 and NONE on 08-23. Last night (08/24) the patient received only 5 units of Lantus and now is hypoglycemic. * Spoke with attending and recommended starting dextrose infusion so that adequate Lantus can be given and metabolic complications prevented. Will continue Lantus 5 units at bedtime for now. For Novolog, will utilize weight- based stress of 1-2 for dosing currently. PLAN FOR INPATIENT GLYCEMIC CONTROL: * Basal insulin * Lantus 5 units SQ HS * Bolus insulin * NovoLog per scale ACHS or Q6hrs while NPO * Goal Range: Low 140 mg/dL - High 180 mg/dL * Correction Factor: 30 mg/dL/unit * Nutritional / Prandial insulin per carb ratio of 1 unit per 18 grams CHO consumed * Please note that the plan above was derived based on current level of insulin resistance and hospital stress. These recommendations are appropriate for inpatient admission only. Plan of care upon discharge will need to be reassessed to avoid potential outpatient hypo/hyperglycemia. Thank you.
[2018-08-25] MEDS: D5W AND 1/2NSS + 20MEQ KCL 20 MEQ/1,000 ML BAG IV SCH ×2 (10:29→22:08)
[2018-08-25] MEDS: CITALOPRAM 20 MG TAB PO SCH (10:29)
[2018-08-25] MEDS: FAMOTIDINE 20 MG TAB PO SCH ×3 (10:30→20:17)
[2018-08-25] MEDS ORDERED: PIPERACILL/TAZOBAC CONSULT ACTIVE PRN (10:45)
[2018-08-25] MEDS ORDERED: VANCOMYCIN CONSULT ACTIVE PRN (10:45)
--- NOTE | 2018-08-25 10:50 | Hospitalist Progress Note ---
Date of Service August 25, 2018 Assessment & Plan (1) Acute respiratory failure with hypoxia: patient's breathing labored at times but then calm later worsened today hypoxia due to bibasilar pneumonia does not have pulmonary edema on exam or on imaging no evidence of PE on CT chest (checked due to tachycardia, chest pain and high risk for clot given malignancy) breathing better in the evening, could have been due to in part to anemia discussed grave prognosis, patient would want to remain a level one, would want intubated if needed (2) Hospital acquired PNA: bibasilar ground glass opacities seen on CT chest was seen on CXR this morning as well breathing has deteriorated over 24 hours has a mild cough, not very productive place on broad spectrum antibiotics due to neutropenia as well as HAP Vancomcyin, Zosyn, Levaquin follow for clinical response (3) Anemia: due to bone marrow suppression with recent chemotherapy Hb 7.0 today will transfuse 2 units PRBC, irradiated due to neutropenia give Lasix in between units repeat Hb in the AM (4) Neutropenia: WBC only 0.07 no fever received Neulasta ove the weekend, no response yet will give Neupogen 300mcg today, repeat daily until WBC improves and neutropenia resolved (5) Testicular cancer: advanced, metastatic, 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 Cruz fears he will not survive long enough to see if chemotherapy working completed a cycle of chemotherapy last (08/21), no further chemo planned until September now has complications with neutropenia, pneumonia, pancytopenia, hypoxia patient wishes to continue treatment, remain level 1 (6) Abdominal distention: due to large tumor, abdominal wall edema, malignant ascites had paracentesis on 08/22, tolerated well, actually felt better on 08/23 (7) CKD (chronic kidney disease) stage 2, GFR 60-89 ml/min: Cr stable at 1.2 better UO today poor oral intake, started on maintenance fluids (8) Hyponatremia: This is been a persistent problem for the patient in the past usually has no untoward symptoms (9) Diabetes: pharmacy on board for glycemic management patient having issues with hypoglycemia due to poor intake started on D5 in fluids since he received Lantus continue to monitor closely Difficult social issues, patient's fiance is at bedside all the time patient's mother is alcoholic, father has strained relationship both parents don't take his health issues seriously service excellence brought paperwork to complete medical POA for norbert to make decisions I strongly urged him to complete the paperwork so that someone who would have his best interests and knows his wishes could help make decisions until he finishes / signs papers, legally his parents are next of kin and would need to be consulted on decisions if he cannot make decisions spent 90 minutes with patient today, visited three times, talked with norbert outside of the room Subjective patient more hypoxic this morning, had to be placed on oxygen mask ABG shows hypoxia, PaO2 68, normal pH he is lethargic, falling asleep during our conversation not overly sedated, no recent narcotics or benzodiezepines reviewed labs, Hb down to 7.0, WBC 0.07, platelets in the 70s Cr is 1.2, electrolytes stable CXR this morning with bibasilar infiltrates and some pulmonary edema will treat for pneumonia, could also consider some Rene discussed gravity of the situation with patient and his fiance at the bedside asked patient if he would want to be intubated and he said yes asked if he would want CPR, he said to try once, asked if he would wanted shocked and he said yes norbert is concerned because she is not legal next of kin difficult because his mother and father not involved in his care, they don't appreciate the gravity of situation norbert asked about getting medical POA paperwork, I will ask case management called to room in the early afternoon, patient had some left sided chest pain that was new EKG with sinus tachycardia, no ischemic changes sent for CT chest for PE protocol, negative for PE, showed the bibasilar ground glass opacities updated patient and his fiancee in the room he was much calmer, breathing comfortably Review of Systems All systems reviewed & are unremarkable except as noted in HPI & below Physical Exam 2 Vital Signs (Past 24 Hours): Last Vital Signs Temp 36.9 C 08/25/18 04:00 Pulse 127 H 08/25/18 07:20 Resp 22 08/25/18 07:20 BP 107/68 08/25/18 07:20 Pulse Ox 95 08/25/18 07:20 Constitutional: WD/WN, vitals as above Eyes: PERRL, conjunctivae normal, anicteric sclerae ENMT: external ear and nose normal, oropharynx normal Neck: trachea midline, no thyromegaly Respiratory: + labored breathing (intermittently, at the end of the day he was fine), + uses accessory muscles and + cough; + abnormal respiratory effort ( slightly increased) Auscultation: + diminished lung sounds (bases); no crackles, no rales and no wheezes Cardiovascular: Rate/Rhythm: regular rate and + tachycardic Heart Sounds: normal S1 and normal S2; no murmur and no cardiac rub Vessels: normal peripheral pulses Gastrointestinal (Abdomen): Inspection/Auscultation: + abdomen distended ( firm with ascites) and normal bowel sounds Percussion/Palpation: abdomen soft and + ascites; abdomen nontender and abdomen not rigid Musculoskeletal: no cyanosis or clubbing, extremities motor strength 5/5 Skin: no rashes, warm and dry Neurologic: patellar DTR's 2+ bilat, sensation intact and PERRL, EOMI, accommodation nl, no face palsy, no dysarthria Psychiatric: A+Ox3, euthymic affect Lymphatic: + lymphadenopathy and + lymphedema Results & Data Laboratory Results Laboratory Results - last 24 hr 08/24/18 08/24/18 08/24/18 11:33 16:27 17:12 WBC RBC Hgb Hct MCV MCH MCHC RDW Std Deviation RDW Coeff of Zuleima Plt Count MPV Immature Gran % (Auto) Neut % (Auto) Lymph % (Auto) [place] % (Auto) Eos % (Auto) Baso % (Auto) Immature Gran # (Auto) Neut # (Auto) Lymph # (Auto) [place] # (Auto) Eos # (Auto) Baso # (Auto) Neutrophils % (Manual) Band Neutrophils % Lymphocytes % (Manual) Prolymphocyte % Reactive Lymphs % (Man) Monocytes % (Manual) Eosinophils % (Manual) Basophils % (Manual) Metamyelocytes % (Man) Myelocytes % (Man) Promyelocytes % (Man) Blast Cells % (Manual) Plasma Cell % (Manual) Other Cells % Nucleated RBC % Neutrophils # (Manual) Band Neutrophils # Total Absolute Neuts Lymphocytes # (Manual) Prolymphocyte # Reactive Lymphs # Total Abs Lymphocytes Monocytes # (Manual) Eosinophils # (Manual) Basophils # (Manual) Metamyelocytes # (Man) Myelocytes # (Manual) Promyelocytes # (Man) Blast Cells # (Man) Plasma Cell # (Manual) Other Cells # Nucleated RBCs # (Man) Hypersegmented Neuts Hyposegmented Neuts Hypogranular Neuts Large Granular Lymphs # Lrg Granular Lymphs Hairy Cells Smudge Cells Toxic Granulation Toxic Vacuolation Dohle Bodies Didier Rods Hypogranular Platelets Clumped Platelets Giant Platelets Platelet Satelliting RBC Morphology Polychromasia Hypochromasia Poikilocytosis Basophilic Stippling Anisocytosis Microcytosis Macrocytosis Spherocytes Pappenheimer Bodies Sickle Cells Target Cells Tear Drop Cells Ovalocytes Stomatocytes [place] Bodies Echinocytes Acanthocytes (Spur) Rouleaux RBC Agglutinates Schistocytes RBC Morph Comment Sezary Cell ABG pH ABG pCO2 ABG pO2 ABG HCO3 ABG O2 Saturation ABG Base Excess Celso Test Barometric Pressure Oxygen Given Sodium Potassium Chloride Carbon Dioxide Anion Gap BUN Creatinine Est Cr Clr Drug Dosing Est GFR ( Amer) Est GFR (Non-Af Amer) BUN/Creatinine Ratio Glucose POC Glucose 76 65 L* 69 L* Calcium Magnesium Troponin I Crossmatch 08/24/18 08/24/18 08/24/18 18:41 19:12 20:01 WBC RBC Hgb Hct MCV MCH MCHC RDW Std Deviation RDW Coeff of Zuleima Plt Count MPV Immature Gran % (Auto) Neut % (Auto) Lymph % (Auto) [place] % (Auto) Eos % (Auto) Baso % (Auto) Immature Gran # (Auto) Neut # (Auto) Lymph # (Auto) [place] # (Auto) Eos # (Auto) Baso # (Auto) Neutrophils % (Manual) Band Neutrophils % Lymphocytes % (Manual) Prolymphocyte % Reactive Lymphs % (Man) Monocytes % (Manual) Eosinophils % (Manual) Basophils % (Manual) Metamyelocytes % (Man) Myelocytes % (Man) Promyelocytes % (Man) Blast Cells % (Manual) Plasma Cell % (Manual) Other Cells % Nucleated RBC % Neutrophils # (Manual) Band Neutrophils # Total Absolute Neuts Lymphocytes # (Manual) Prolymphocyte # Reactive Lymphs # Total Abs Lymphocytes Monocytes # (Manual) Eosinophils # (Manual) Basophils # (Manual) Metamyelocytes # (Man) Myelocytes # (Manual) Promyelocytes # (Man) Blast Cells # (Man) Plasma Cell # (Manual) Other Cells # Nucleated RBCs # (Man) Hypersegmented Neuts Hyposegmented Neuts Hypogranular Neuts Large Granular Lymphs # Lrg Granular Lymphs Hairy Cells Smudge Cells Toxic Granulation Toxic Vacuolation Dohle Bodies Didier Rods Hypogranular Platelets Clumped Platelets Giant Platelets Platelet Satelliting RBC Morphology Polychromasia Hypochromasia Poikilocytosis Basophilic Stippling Anisocytosis Microcytosis Macrocytosis Spherocytes Pappenheimer Bodies Sickle Cells Target Cells Tear Drop Cells Ovalocytes Stomatocytes [place] Bodies Echinocytes Acanthocytes (Spur) Rouleaux RBC Agglutinates Schistocytes RBC Morph Comment Sezary Cell ABG pH ABG pCO2 ABG pO2 ABG HCO3 ABG O2 Saturation ABG Base Excess [place]so Test Barometric Pressure Oxygen Given Sodium Potassium Chloride Carbon Dioxide Anion Gap BUN Creatinine Est Cr Clr Drug Dosing Est GFR ( Amer) Est GFR (Non-Af Amer) BUN/Creatinine Ratio Glucose POC Glucose 65 L* 89 Calcium Magnesium Troponin I < 0.015 Crossmatch 08/24/18 08/25/18 08/25/18 21:30 05:47 05:47 WBC 0.07 L* RBC 2.95 L Hgb 7.0 L Hct 21.6 L MCV 73.2 L MCH 23.7 L MCHC 32.4 RDW Std Deviation 45.9 RDW Coeff of Zuleima 17.0 H Plt Count 73 L MPV 8.3 Immature Gran % (Auto) Cancelled Neut % (Auto) Cancelled Lymph % (Auto) Cancelled [place] % (Auto) Cancelled Eos % (Auto) Cancelled Baso % (Auto) Cancelled Immature Gran # (Auto) Cancelled Neut # (Auto) Cancelled Lymph # (Auto) Cancelled [place] # (Auto) Cancelled Eos # (Auto) Cancelled Baso # (Auto) Cancelled Neutrophils % (Manual) Cancelled Band Neutrophils % Cancelled Lymphocytes % (Manual) Cancelled Prolymphocyte % Cancelled Reactive Lymphs % (Man) Cancelled Monocytes % (Manual) Cancelled Eosinophils % (Manual) Cancelled Basophils % (Manual) Cancelled Metamyelocytes % (Man) Cancelled Myelocytes % (Man) Cancelled Promyelocytes % (Man) Cancelled Blast Cells % (Manual) Cancelled Plasma Cell % (Manual) Cancelled Other Cells % Cancelled Nucleated RBC % Cancelled Neutrophils # (Manual) Cancelled Band Neutrophils # Cancelled Total Absolute Neuts Cancelled Lymphocytes # (Manual) Cancelled Prolymphocyte # Cancelled Reactive Lymphs # Cancelled Total Abs Lymphocytes Cancelled Monocytes # (Manual) Cancelled Eosinophils # (Manual) Cancelled Basophils # (Manual) Cancelled Metamyelocytes # (Man) Cancelled Myelocytes # (Manual) Cancelled Promyelocytes # (Man) Cancelled Blast Cells # (Man) Cancelled Plasma Cell # (Manual) Cancelled Other Cells # Cancelled Nucleated RBCs # (Man) Cancelled Hypersegmented Neuts Cancelled Hyposegmented Neuts Cancelled Hypogranular Neuts Cancelled Large Granular Lymphs Cancelled # Lrg Granular Lymphs Cancelled Hairy Cells Cancelled Smudge Cells Cancelled Toxic Granulation Cancelled Toxic Vacuolation Cancelled Dohle Bodies Cancelled Didier Rods Cancelled Hypogranular Platelets Cancelled Clumped Platelets Cancelled Giant Platelets Cancelled Platelet Satelliting Cancelled RBC Morphology Cancelled Polychromasia Cancelled Hypochromasia Cancelled Poikilocytosis Cancelled Basophilic Stippling Cancelled Anisocytosis Cancelled Microcytosis Cancelled Macrocytosis Cancelled Spherocytes Cancelled Pappenheimer Bodies Cancelled Sickle Cells Cancelled Target Cells Cancelled Tear Drop Cells Cancelled Ovalocytes Cancelled Stomatocytes Cancelled [place] Bodies Cancelled Echinocytes Cancelled Acanthocytes (Spur) Cancelled Rouleaux Cancelled RBC Agglutinates Cancelled Schistocytes Cancelled RBC Morph Comment Cancelled Sezary Cell Cancelled ABG pH ABG pCO2 ABG pO2 ABG HCO3 ABG O2 Saturation ABG Base Excess [place] Test Barometric Pressure Oxygen Given Sodium 132 L Potassium 3.5 Chloride 101 Carbon Dioxide 24 Anion Gap 7.0 BUN 37 H Creatinine 1.21 Est Cr Clr Drug Dosing 97.2 Est GFR ( Amer) 95.2 Est GFR (Non-Af Amer) 82.1 BUN/Creatinine Ratio 31.0 H Glucose 53 L* POC Glucose 132 H Calcium 7.4 L Magnesium 2.2 Troponin I Crossmatch 08/25/18 08/25/18 08/25/18 06:47 07:03 07:24 WBC RBC Hgb Hct MCV MCH MCHC RDW Std Deviation RDW Coeff of Zuleima Plt Count MPV Immature Gran % (Auto) Neut % (Auto) Lymph % (Auto) [place] % (Auto) Eos % (Auto) Baso % (Auto) Immature Gran # (Auto) Neut # (Auto) Lymph # (Auto) [place] # (Auto) Eos # (Auto) Baso # (Auto) Neutrophils % (Manual) Band Neutrophils % Lymphocytes % (Manual) Prolymphocyte % Reactive Lymphs % (Man) Monocytes % (Manual) Eosinophils % (Manual) Basophils % (Manual) Metamyelocytes % (Man) Myelocytes % (Man) Promyelocytes % (Man) Blast Cells % (Manual) Plasma Cell % (Manual) Other Cells % Nucleated RBC % Neutrophils # (Manual) Band Neutrophils # Total Absolute Neuts Lymphocytes # (Manual) Prolymphocyte # Reactive Lymphs # Total Abs Lymphocytes Monocytes # (Manual) Eosinophils # (Manual) Basophils # (Manual) Metamyelocytes # (Man) Myelocytes # (Manual) Promyelocytes # (Man) Blast Cells # (Man) Plasma Cell # (Manual) Other Cells # Nucleated RBCs # (Man) Hypersegmented Neuts Hyposegmented Neuts Hypogranular Neuts Large Granular Lymphs # Lrg Granular Lymphs Hairy Cells Smudge Cells Toxic Granulation Toxic Vacuolation Dohle Bodies Didier Rods Hypogranular Platelets Clumped Platelets Giant Platelets Platelet Satelliting RBC Morphology Polychromasia Hypochromasia Poikilocytosis Basophilic Stippling Anisocytosis Microcytosis Macrocytosis Spherocytes Pappenheimer Bodies Sickle Cells Target Cells Tear Drop Cells Ovalocytes Stomatocytes [place] Bodies Echinocytes Acanthocytes (Spur) Rouleaux RBC Agglutinates Schistocytes RBC Morph Comment Sezary Cell ABG pH 7.43 ABG pCO2 33 L ABG pO2 68 L ABG HCO3 21 ABG O2 Saturation 92.2 ABG Base Excess -2.6 Celso Test POS Barometric Pressure 733.7 Oxygen Given 6L Sodium Potassium Chloride Carbon Dioxide Anion Gap BUN Creatinine Est Cr Clr Drug Dosing Est GFR ( Amer) Est GFR (Non-Af Amer) BUN/Creatinine Ratio Glucose POC Glucose 65 L* 52 L* Calcium Magnesium Troponin I Crossmatch 08/25/18 08/25/18 08/25/18 07:25 07:44 08:06 WBC RBC Hgb Hct MCV MCH MCHC RDW Std Deviation RDW Coeff of Zuleima Plt Count MPV Immature Gran % (Auto) Neut % (Auto) Lymph % (Auto) [place] % (Auto) Eos % (Auto) Baso % (Auto) Immature Gran # (Auto) Neut # (Auto) Lymph # (Auto) [place] # (Auto) Eos # (Auto) Baso # (Auto) Neutrophils % (Manual) Band Neutrophils % Lymphocytes % (Manual) Prolymphocyte % Reactive Lymphs % (Man) Monocytes % (Manual) Eosinophils % (Manual) Basophils % (Manual) Metamyelocytes % (Man) Myelocytes % (Man) Promyelocytes % (Man) Blast Cells % (Manual) Plasma Cell % (Manual) Other Cells % Nucleated RBC % Neutrophils # (Manual) Band Neutrophils # Total Absolute Neuts Lymphocytes # (Manual) Prolymphocyte # Reactive Lymphs # Total Abs Lymphocytes Monocytes # (Manual) Eosinophils # (Manual) Basophils # (Manual) Metamyelocytes # (Man) Myelocytes # (Manual) Promyelocytes # (Man) Blast Cells # (Man) Plasma Cell # (Manual) Other Cells # Nucleated RBCs # (Man) Hypersegmented Neuts Hyposegmented Neuts Hypogranular Neuts Large Granular Lymphs # Lrg Granular Lymphs Hairy Cells Smudge Cells Toxic Granulation Toxic Vacuolation Dohle Bodies Didier Rods Hypogranular Platelets Clumped Platelets Giant Platelets Platelet Satelliting RBC Morphology Polychromasia Hypochromasia Poikilocytosis Basophilic Stippling Anisocytosis Microcytosis Macrocytosis Spherocytes Pappenheimer Bodies Sickle Cells Target Cells Tear Drop Cells Ovalocytes Stomatocytes [place] Bodies Echinocytes Acanthocytes (Spur) Rouleaux RBC Agglutinates Schistocytes RBC Morph Comment Sezary Cell ABG pH ABG pCO2 ABG pO2 ABG HCO3 ABG O2 Saturation ABG Base Excess [place] Test Barometric Pressure Oxygen Given Sodium Potassium Chloride Carbon Dioxide Anion Gap BUN Creatinine Est Cr Clr Drug Dosing Est GFR ( Amer) Est GFR (Non-Af Amer) BUN/Creatinine Ratio Glucose POC Glucose 51 L* 57 L* 102 H Calcium Magnesium Troponin I Crossmatch 08/25/18 10:35 WBC RBC Hgb Hct MCV MCH MCHC RDW Std Deviation RDW Coeff of Zuleima Plt Count MPV Immature Gran % (Auto) Neut % (Auto) Lymph % (Auto) [place] % (Auto) Eos % (Auto) Baso % (Auto) Immature Gran # (Auto) Neut # (Auto) Lymph # (Auto) [place] # (Auto) Eos # (Auto) Baso # (Auto) Neutrophils % (Manual) Band Neutrophils % Lymphocytes % (Manual) Prolymphocyte % Reactive Lymphs % (Man) Monocytes % (Manual) Eosinophils % (Manual) Basophils % (Manual) Metamyelocytes % (Man) Myelocytes % (Man) Promyelocytes % (Man) Blast Cells % (Manual) Plasma Cell % (Manual) Other Cells % Nucleated RBC % Neutrophils # (Manual) Band Neutrophils # Total Absolute Neuts Lymphocytes # (Manual) Prolymphocyte # Reactive Lymphs # Total Abs Lymphocytes Monocytes # (Manual) Eosinophils # (Manual) Basophils # (Manual) Metamyelocytes # (Man) Myelocytes # (Manual) Promyelocytes # (Man) Blast Cells # (Man) Plasma Cell # (Manual) Other Cells # Nucleated RBCs # (Man) Hypersegmented Neuts Hyposegmented Neuts Hypogranular Neuts Large Granular Lymphs # Lrg Granular Lymphs Hairy Cells Smudge Cells Toxic Granulation Toxic Vacuolation Dohle Bodies Didier Rods Hypogranular Platelets Clumped Platelets Giant Platelets Platelet Satelliting RBC Morphology Polychromasia Hypochromasia Poikilocytosis Basophilic Stippling Anisocytosis Microcytosis Macrocytosis Spherocytes Pappenheimer Bodies Sickle Cells Target Cells Tear Drop Cells Ovalocytes Stomatocytes [place] Bodies Echinocytes Acanthocytes (Spur) Rouleaux RBC Agglutinates Schistocytes RBC Morph Comment Sezary Cell ABG pH ABG pCO2 ABG pO2 ABG HCO3 ABG O2 Saturation ABG Base Excess Cel[place] Test Barometric Pressure Oxygen Given Sodium Potassium Chloride Carbon Dioxide Anion Gap BUN Creatinine Est Cr Clr Drug Dosing Est GFR ( Amer) Est GFR (Non-Af Amer) BUN/Creatinine Ratio Glucose POC Glucose Calcium Magnesium Troponin I Crossmatch See Detail Diagnostic Findings CT chest, PE protocol IMPRESSION: 1. Limited evaluation of the pulmonary arterial tree secondary to respiratory motion. Within the limitations of the study, no evidence of central pulmonary thromboembolic disease. If there is high clinical suspicion for pulmonary emboli , correlation with lower extremity Doppler recommended. 2. Trace pleural effusions with generalized body wall edema and upper abdominal ascites. 3. Bibasilar predominant consolidative and groundglass opacities suggest combination of atelectasis and pneumonitis. 4. Metastatic mediastinal adenopathy redemonstrated. XR chest 1V portable CLINICAL HISTORY: 28 years-old Male presenting with hypoxia, hx ascites and effusions. TECHNIQUE: Portable upright AP view of the chest was obtained. COMPARISON: 08/24/2018. FINDINGS: Left subclavian Mediport terminates in the right atrium. Cardiomediastinal silhouette normal. Mildly low lung volumes. Interval development of right basilar opacity likely with a trace right pleural effusion. Increased pulmonary vascular prominence. Less extensive left basilar opacity new from prior. No pneumothorax. Osseous structures normal. Surgical clips project over the epigastrium. Gaseous distention of bowel. IMPRESSION: 1. Interval development of bibasilar infiltrates accompanied by increased pulmonary vascular prominence. Differential considerations include infection, edema, or aspiration. 2. Gaseous distention of bowel. Medications Administered Current Inpatient Medications Acetaminophen (Tylenol) 650 mg PO Q4H PRN PRN Reason: pain/fever Stop: 09/15/18 14:28 Al Hydrox/Mg Hydrox/Simethicone (Maalox) 30 ml PO Q6H PRN PRN Reason: Dyspepsia Stop: 09/15/18 14:28 Last Admin: 08/24/18 19:07 Dose: 30 ml Alprazolam (Xanax) 0.5 mg PO BID RHONDA Stop: 09/15/18 20:59 Last Admin: 08/25/18 07:34 Dose: 0.5 mg Citalopram Hydrobromide (Celexa) 10 mg PO DAILY RHONDA Stop: 09/16/18 08:59 Last Admin: 08/25/18 10:29 Dose: 10 mg Dexamethasone 3.75 mg/Nystatin 30 ml/Diphenhydramine HCl 300 mg/Sucrose 45 ml/ Microcrystalline Cellulose 45 ml/ BARCODE IDENTIFIER 1 ea 0 mg PO Q4H RHONDA Stop: 09/17/18 17:59 Last Admin: 08/25/18 10:31 Dose: Not Given Dextrose (Dextrose 50%) 25 - 50 ml IV UD PRN; Protocol PRN Reason: Hypoglycemia Protocol Stop: 09/15/18 16:08 Last Admin: 08/25/18 07:50 Dose: 25 ml Enoxaparin Sodium (Lovenox) 40 mg SQ Q24H RHONDA Stop: 09/15/18 19:59 Last Admin: 08/24/18 19:48 Dose: Not Given Famotidine (Pepcid) 20 mg PO BID RHONDA Stop: 09/23/18 20:59 Last Admin: 08/24/18 21:38 Dose: 20 mg Glucagon (Glucagen) 1 mg SQ UD PRN; Protocol PRN Reason: Hypoglycemia Protocol Stop: 09/15/18 16:08 Glucose (Glucose 40%) 15 - 30 gm PO UD PRN; Protocol PRN Reason: Hypoglycemia Protocol Stop: 09/15/18 16:08 Glucose (Dex4 Glucose) 4 - 8 tabs PO UD PRN; Protocol PRN Reason: Hypoglycemia Protocol Stop: 09/15/18 16:08 Last Admin: 08/24/18 19:34 Dose: 4 tabs Haloperidol Lactate (Haldol) 1 mg IM NOW PRN PRN Reason: Agitation Stop: 09/20/18 04:55 Last Admin: 08/21/18 19:54 Dose: 1 mg Heparin Sodium (Porcine) (Heparin Sod 100 Unit/Ml Flush) 5 ml FLUSH PRN PRN PRN Reason: Flush Stop: 09/23/18 05:44 Last Admin: 08/25/18 05:48 Dose: 5 ml Hydromorphone HCl (Dilaudid) 1 mg IV Q2HWA PRN PRN Reason: Pain Stop: 09/05/18 13:16 Last Admin: 08/24/18 19:49 Dose: 1 mg Lorazepam (Ativan) 0.5 mg in 1 mls @ 1 mls/min IV Q4H PRN PRN Reason: Agitation Stop: 09/15/18 15:57 Last Admin: 08/23/18 23:38 Dose: 1 mls/min Potassium Chloride/Dextrose/Sod Cl (D5w And 1/2nss + 20meq Kcl) 20 meq in 1, 000 mls @ 80 mls/hr IV .[id number] RHONDA Stop: 09/24/18 09:59 Last Admin: 08/25/18 10:29 Dose: 80 mls/hr Piperacillin Sod/Tazobactam (Sod 3.375 gm/ Dextrose) 115 mls @ 28.75 mls/hr IV Q8H RHONDA Stop: 09/01/18 10:44 Vancomycin HCl 1,000 mg/ (Sodium Chloride) 270 mls @ 125 mls/hr IV Q12H [facility]ONDA Stop: 09/01/18 10:44 Levofloxacin/Dextrose (Levaquin/D5w) 750 mg in 150 mls @ 100 mls/hr IV Q24H [facility] Stop: 09/01/18 10:44 Insulin Aspart (Novolog Flexpen) 0 units SC ACHS [facility] Stop: 09/15/18 16:59 Last Admin: 08/25/18 07:33 Dose: Not Given Insulin Glargine (Lantus Solostar Pen) 5 units SC HS [facility] Stop: 09/24/18 20:59 Ioversol (Optiray 320 100ml) 94 ml IV ONCE PRN PRN Reason: Interaction Checking Stop: 08/26/18 13:09 Last Admin: 08/22/18 13:11 Dose: 94 ml Magnesium Hydroxide (Milk Of Magnesia) 30 ml PO Q6H PRN PRN Reason: Constipation Stop: 09/21/18 19:55 Last Admin: 08/24/18 21:45 Dose: 30 ml Miscellaneous (Remove Nicoderm Patch) 1 ea N/A HS [facility] Stop: 09/15/18 20:59 Last Admin: 08/24/18 21:38 Dose: 1 ea Miscellaneous (Carbohydrates For Hypoglycemia) 15 - 30 gm PO UD PRN PRN Reason: Hypoglycemia Treatment Stop: 09/15/18 16:08 Last Admin: 08/25/18 07:32 Dose: 15 gm Miscellaneous (Remove Nicoderm Patch) 1 ea N/A HS PRN PRN Reason: Insomnia Stop: 09/19/18 20:59 Miscellaneous Information (Consult Glycemic Management Pharmacy) 1 ea N/A UD PRN PRN Reason: Consult Stop: 09/23/18 21:36 Miscellaneous Information (Consult) 1 ea N/A UD PRN PRN Reason: Consult Stop: 09/24/18 10:44 Miscellaneous Information (Consult) 1 ea N/A UD PRN PRN Reason: Consult Stop: 09/24/18 10:44 Morphine Sulfate (Ms Contin) 60 mg PO Q8 [facility] Stop: 09/04/18 21:59 Last Admin: 08/25/18 06:14 Dose: Not Given Naloxone HCl (Narcan) 0.4 mg IV Q30M PRN PRN Reason: Sedation Stop: 09/24/18 05:45 Nicotine (Nicoderm Cq) 21 mg TD QAM [facility] Stop: 09/19/18 12:14 Last Admin: 08/25/18 07:34 Dose: 21 mg Ondansetron HCl (Zofran) 4 mg IV Q6H PRN PRN Reason: Nausea Stop: 09/15/18 14:28 Last Admin: 08/23/18 11:06 Dose: 4 mg Polyethylene Glycol (Miralax Powder Packet) 17 gm PO DAILY PRN PRN Reason: Constipation Stop: 09/20/18 11:55 Last Admin: 08/23/18 19:22 Dose: 17 gm _ (1) Testicular cancer Descendance of testis: unspecified Laterality: unspecified laterality Qualified Code(s): C62.90 - Malignant neoplasm of unspecified testis, unspecified whether descended or undescended
[2018-08-25] MEDS ORDERED: PIPERACILLIN/TAZOBACTAM 3.375 GM in DEXTROSE 5% 100 ML IV ONE (11:30)
[2018-08-25] MEDS ORDERED: VANCOMYCIN HCL 2,000 MG in SODIUM CHLORIDE 0.9% 500 ML IV ONE (11:30)
--- NOTE | 2018-08-25 12:08 | Pharmacy Report ---
Pharmacy Abx Initial Consult - Date of Service August 25, 2018 - Pharmacy Dosing Scope Date of Consult: 08/25/18 Consultation requested by: Dr. Deshpande Pharmacy is consulted to initiate Vancomycin and zosyn IV dosing therapy, order appropriate labs and adjust drug dose/frequency. - Subjective The patient is a 28 year old M admitted on 08/16/18 14:29. - Objective Height: 6 ft Weight: 74.3 kg Vital Signs (Past 12hrs): Vital Signs Temp Pulse Pulse Resp BP BP Pulse Ox 08/25/18 10:52 36.8 C 143 H 28 H 103/66 92 08/25/18 07:20 127 H 22 107/68 95 08/25/18 04:00 36.9 C 127 H 22 127/81 81 L 08/25/18 02:10 123 H 90 Lab Results (24hrs): Laboratory Tests (24 Hours) 08/25/18 08/25/18 05:47 05:47 WBC 0.07 L* Neut # (Auto) Cancelled Creatinine 1.21 Est Cr Clr Drug Dosing 97.2 Micro Results: 08/16/18 20:00 Urine Culture - Final Urine,Clean Catch Coag negative Staphylococcus - Risk Factors for Resistance * Current hospitalization > 5 days * Immunocompromised (chronic steroid therapy, chemotherapy, immunomodulators) * Antimicrobial use within the last 90 days (pt received 3 days of vanc starting 08/17/18, Amoxicillin in 06/2018) - Assessment & Plan Assessment 28 year old M admitted for abdominal pain, being treated for testicular cancer. * Pt has numerous risk factors for resistance. Started today on vanc/zosyn/ levaquin for possible HCAP. * History of T1DM, CKD stage 2. * Pt was recently on vanc 1250mg iv q 8h (08/17/18) which yielded a trough of 32.4. Initial vanc dosing for today is based on previous kinetics. * Trough level ordered early prior to third maintenance dose. * Renal function appears to be declining as baseline SCr is less than 1mg/dL. * Blood cultures from 08/22 NGTD Plan Vancomycin and zosyn for treatment of possible HCAP. Vancomycin IV * Estimated PK Parameters: Vd 0.7 L/kg, Abelino 0.07 hr-1, t1/2 ~9 hr * Loading dose: 2000 mg (27 mg/kg) * Maintenance dose: 1250 mg IV ( 17 mg/kg) every 12 hours * Goal trough level for pneumonia : 15 to 2 mcg/mL * Trough level ordered for 08/26/18 @1930 Piperacillin/tazobactam * 3.375 g bolus administered over 30 minutes, then 3.375 g IV extended infusion every 8 hours for CrCl greater than 20 mL/min Pt is also on Levaquin 750mg iv q 24 hours. Pharmacy will continue to follow and will adjust dose/frequency as necessary. Thank you.
[2018-08-25] MEDS: LEVOFLOXACIN/D5W 750 MG/150 ML BAG IV SCH (13:07)
[2018-08-25] MEDS ORDERED: FILGRASTIM 300 MCG/ML VIAL SQ ONE (14:08)
--- NOTE | 2018-08-25 15:09 | CT Scan Report ---
CT angio chest PE protocol CT DOSE: 201.43 mGy.cm HISTORY: 28 years-old Male with PE. Acute weakness with patient with metastatic testicular carcinom a TECHNIQUE: Multiple CTA images of the chest were obtained after the intravenous administration of 94 ml Optiray 320. Coronal and sagittal MIPS were obtained from the axial data set and were submitted f or review. All measurements were obtained according to NASCET criteria. A dose lowering technique wa s utilized adhering to the principles of ALARA. COMPARISON: Chest radiographs of same day, CT abdomen and pelvis 08/22/2018, CT chest 07/23/2018. FINDINGS: CTA: Heart is normal in size without pericardial effusion. Thoracic aorta is normal in both course and divine iber without aneurysm or dissection. Patency of the imaged great vessels. Left internal jugular centr al venous catheter is noted, distal tip terminating within the inferior SVC. Pulmonary arterial tree is opacified to level the subsegmental branches. The lobar, segmental and subsegmental branches are n ot well seen secondary to respiratory motion. No definite evidence of pulmonary thromboembolic diseas e. CT CHEST: Heterogeneous appearance of the thyroid. Right paratracheal adenopathy measures up to 1.9 x 1.9 cm. H ypodense 1.9 x 1.6 cm lymph node adjacent to the descending thoracic aorta again noted, both of these findings are suspicious for metastatic disease. Trace bilateral pleural effusions. Evaluation of the lung parenchyma is limited secondary to respirat ory motion. Layering groundglass opacities noted about the bilateral minor fissures. Bibasilar consol idative and groundglass opacities. Additionally, there is suggestion of tree-in-bud nodules about the bilateral lower lobes. Calcific granuloma of the right upper lobe incidentally noted. Central airway s appear patent. Upper abdominal ascites with mild gastric distention. Mild gaseous distention of the distal esophagus . Previously noted omental and peritoneal carcinomatosis of the abdomen, better seen on comparison. D iffuse body wall edema. Bones appear intact. No suspicious lytic or blastic bony lesions. IMPRESSION: 1. Limited evaluation of the pulmonary arterial tree secondary to respiratory motion. Within the limi tations of the study, no evidence of central pulmonary thromboembolic disease. If there is high clini divine suspicion for pulmonary emboli, correlation with lower extremity Doppler recommended. 2. Trace pleural effusions with generalized body wall edema and upper abdominal ascites. 3. Bibasilar predominant consolidative and groundglass opacities suggest combination of atelectasis a nd pneumonitis. 4. Metastatic mediastinal adenopathy redemonstrated. The above report was generated using voice recognition software. It may contain grammatical, syntax o r spelling errors. Electronically signed by: Juan Huynh M.D. 08/25/2018 3:08 PM
--- NOTE | 2018-08-25 15:19 | Palliative Care Progress Note ---
Date of Service August 25, 2018 Assessment & Plan (1) Palliative care encounter: Patient is a 28-year-old male with metastatic testicular cancer diagnosed in June 2017. 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 Patient's alpha-fetoprotein remained elevated after resection-in August 2017 CT scan showed large retroperitoneal mass involving the left ureter and aorta. Patient underwent chemo from September through December-on 01/29 he underwent surgical resection of the mass-fianc reports that they were told it was removed completely. Patient was lost to follow-up until this August when he presented with an enlarged abdomen and lower extremity edema. CT scan done on 07/23 showed mediastinal adenopathy as well as paratracheal, avascular necrosis of the left hip, right kidney infarct with scarring, large multiple masses in the omentum and mesentery, pelvic mass 8.5 cm, a 2.3 cm left inguinal mass and lesions abutting the liver. Patient's market abdominal distention was evaluated by ultrasound on 08/13-this showed trace ascites. CT scan performed on 08/22 showed large amount of ascites-patient underwent paracentesis for 5 L of fluid. -Today patient is alert, not sedated, does not appear to be in significant pain -Increased shortness of breath-bilateral basilar infiltrates-IV antibiotic spectrum increased, CTA negative for PE -CODE STATUS is currently a FULL CODE. -Neutropenia-further treatment per femi-continue broad-spectrum IV antibiotics for coverage (2) Abdominal pain: Due to advanced metastatic disease-patient on MS Contin 60 mg Q 8 with improved pain control-has not required any IV Dilaudid for 19 hours-would discontinue IV Dilaudid and start his home oxycodone at 10 mg every 6 hours as needed for breakthrough pain -Current pain management is as follows: MS Contin 60 mg po Q8 which was started on 08/21 Dilaudid 1 mg IV Q2 PRN (last dose received 08/24 at 1949) -Would discontinue IV Dilaudid and add back his home PRN oxycodone at 10 mg every 6 hours as needed for breakthrough pain (3) Testicular cancer: -Patient receiving aggressive chemo-plan is to continue with aggressive chemo and aggressive treatment of his bilateral basilar infiltrates (4) Abdominal distention: -Status post paracentesis of 5 L-continue to monitor (5) Anxiety: Continue as needed Ativan-last dose on 08/23 (6) Urinary retention: Patient voiding-Coates catheter removed Subjective Patient awake alert, not sedated, standing by the bedside. Patient states his pain is "so-so". He has not required any IV Dilaudid in approximately 19 hours. He has also not required any as needed Ativan since 08/23. Pain appears well-controlled on MS Contin 60 mg every 8 hours. Patient underwent paracentesis on 08/22 for 5 L of fluid-abdominal distention and lower extremity edema is markedly improved. Patient's white count continues to drop-now 0.07, hemoglobin 7, platelets 73K - patient to be transfused 2 units, antibiotic coverage has been widened due to neutropenia. Patient did complain earlier today of increased shortness of breath-he is now on O2, chest x-ray showed bilateral basilar infiltrates, he had a CTA which was negative for PE. Patient seen and examined, fiance and nursing at bedside. Review of Systems Patient afebrile, increased shortness of breath as mentioned in HPI, decreased abdominal distention and lower extremity edema. Patient without Coates-appears to be voiding well, occasional incontinence. Physical Exam 2 Vital Signs (Past 24 Hours): Last Vital Signs Temp 36.5 C 08/25/18 15:10 Pulse 144 H 08/25/18 15:10 Resp 40 H 08/25/18 15:10 BP 112/75 08/25/18 15:10 Pulse Ox 96 08/25/18 15:10 Physical Exam: Patient awake and alert, able to ambulate to bathroom with less assist HEENT: EOMI, normal hearing Respirations: On O2, increased respiratory rate, does not appear to be in distress CV: Well-perfused, tachycardic Abdomen: Less distended post paracentesis Extremities: Markedly decreased edema, edema still present, right greater than left Neuro: More alert and oriented Time Spent Attending Total time spent 25 minutes with greater than 50% of the time spent at bedside assessing patient's pain control and discussing plan to transition to p.o. medications. _ (1) Abdominal pain Abdominal location: generalized Qualified Code(s): R10.84 - Generalized abdominal pain (2) Testicular cancer Descendance of testis: descended Laterality: left Qualified Code(s): C62.12 - Malignant neoplasm of descended left testis
[2018-08-25] MEDS: PIPERACILLIN/TAZOBACTAM 3.375 GM in DEXTROSE 5% 100 ML IV SCH (16:37)
[2018-08-25] MEDS ORDERED: FUROSEMIDE 40 MG in SYRINGE 0 ML IV ONE (20:00)
[2018-08-25] MEDS: ENOXAPARIN INJ 40 MG/0.4 ML SYR SQ SCH (20:16)
[2018-08-25] MEDS: VANCOMYCIN HCL 1,250 MG in SODIUM CHLORIDE 0.9% 250 ML IV SCH (20:23)
[2018-08-25] MEDS ORDERED: INSULIN GLARGINE SOLOSTAR 100 UNITS/ML 3 ML PEN SC SCH ×2 (21:00)
[2018-08-26] MEDS: PIPERACILLIN/TAZOBACTAM 3.375 GM in DEXTROSE 5% 100 ML IV SCH ×4 (00:01→23:03)
[2018-08-26] MEDS: DEXAMETHASONE CONC 3.75 MG, NYSTATIN 30 ML, DiphenhydrAMINE Syrup 300 MG, ORA-SWEET SYR... PO SCH ×6 (03:46→21:49)
[2018-08-26] MEDS: MoRPHine SULFATE CR 60 MG TABCR PO SCH ×2 (05:34→16:06)
[2018-08-26] MEDS: HYDROmorphone INJ 1 MG/ML SYRINGE IV PRN (06:30)
[2018-08-26 07:18] LABS: Hematocrit (blood only) 25.1 % (42-52); Hemoglobin 8.3 g/dL (14.0-18.0); Mean Corpuscular Hgb Conc 33.1 g/dL (32-36); Mean Platelet Volume 8.7 fL (7.4-10.4); Platelet Count 39 K/uL (130-400); RDW Coefficient of Variation 16.3 % (11.5-14.5); RDW Standard Deviation 44.2 fL (36.4-46.3); Red Blood Count 3.39 M/uL (4.7-6.1); White Blood Count 0.05 K/uL (4.8-10.8)
[2018-08-26 07:19] LABS: BUN Creatinine Ratio 29.2 (10-20); Calcium 7.8 mg/dl (8.5-10.1); Creatinine Clr Calc Pharmacy 99.3 ml/min; Est GFR (African American) 98.1; Est GFR (Non-African American) 84.7; Magnesium 2.1 mg/dl (1.8-2.4); Potassium 3.2 mmol/L (3.5-5.1)
[2018-08-26] MEDS ORDERED: POTASSIUM CHLORIDE 20 MEQ TABCR PO STA (08:13)
[2018-08-26] MEDS: CITALOPRAM 20 MG TAB PO SCH (08:57)
[2018-08-26] MEDS: NICOTINE 21 MG/24 HR TDSY TD SCH (08:58)
[2018-08-26] MEDS: FAMOTIDINE 20 MG TAB PO SCH ×2 (09:00→21:03)
[2018-08-26] MEDS: INSULIN ASPART 100 UNITS/ML 3 ML PEN SC SCH ×4 (09:04→21:02)
[2018-08-26] MEDS: VANCOMYCIN HCL 1,250 MG in SODIUM CHLORIDE 0.9% 250 ML IV SCH ×2 (09:25→19:56)
[2018-08-26] MEDS ORDERED: HYDROmorphone INJ 0.5 MG/0.5 ML SYR IV PRN (10:29)
--- NOTE | 2018-08-26 10:37 | Hospitalist Progress Note ---
Date of Service August 26, 2018 Assessment & Plan (1) Acute respiratory failure with hypoxia: Had labored breathing nad hypoxia on 08/25 Found to have bibasilar pneumonia on CTA Chest, no PE (checked due to tachycardia, chest pain and high risk for clot given malignancy) Also anemia contributing Now s/p PRBCs and IV lasix, improved O2 requirement less today -continue supplemental O2 as needed -continue treatment of HCAP as below - patient wants to remain a level one, would want intubated if needed (2) Hospital acquired PNA: bibasilar ground glass opacities seen on CT chest 08/25 when had worsening hypoxia was seen on CXR 08/25 as well has a mild cough, not very productive -continue broad spectrum antibiotics due to neutropenia as well as treatment for Gram negative PNA and coverage for MRSA PNA -continue Vancomcyin, Zosyn, Levaquin day #2 follow for clinical response (3) Testicular cancer: advanced, metastatic, aggressive. Was treated with orchiectomy, then chemo and then subsequent surgical resection of large teratome in pelvis earlier 2017. Then was apparently lost to follow up for 5 months and returned in the last month for worsening abd pain and distension has abdominal carcinomatosis, thoracic mediastinal adenopathy poor prognosis Dr. Cruz fears he will not survive long enough to see if chemotherapy working completed a cycle of chemotherapyon 08/21, no further chemo planned until September now has complications with neutropenia, pneumonia, pancytopenia, hypoxia patient wishes to continue treatment, remain level 1 -on MS Contin 60mg po q8h -decrease IV dilaudid to 0.25mg IV q4h prn severe breakthrough pain -restart home oxycodone 5mg po q4h prn breakthrough pain -Appreciate Pallaitive Care and Oncology consultations -will d/w Oncology about need to repeat tumor markers during this admission as per request of patient's partner -will also d/w Oncology about starting Marinol for appetite stimulation and nausea (4) Anemia: due to bone marrow suppression with recent chemotherapy Hb 7.0 and was transfused on 08/25 2 units PRBCs Hgb now up to 8.3, no transfusion needed today -follow CBC in AM (5) Neutropenia: WBC only 0.05 and lower than yesterday no fever received Neulasta over the weekend, no response yet Received Neupogen 300mcg on 08/25 -will repeat daily until WBC improves and neutropenia resolved-give another dose now (6) Pancytopenia due to antineoplastic chemotherapy: as above Plus, platelets today down to 39k. No bleeding other than epistaxis yesterday that was minor -no transfusion needed today -hold Lovenox today -follow CBC -transfuse if plts<15k or if has significant bleeding (7) Abdominal distention: due to large tumor, abdominal wall edema, malignant ascites had paracentesis on 08/22 with 5L removed, tolerated well . No studies were sent on fluid -continues to feel better but remains with abd distension -follow to see if needs repeat tap (8) CKD (chronic kidney disease) stage 2, GFR 60-89 ml/min: Cr stable at 1.18 poor oral intake, started on maintenance fluids but will lower today to 50 mls/ hr to prevent volume overload (9) Hyponatremia: This is been a persistent problem for the patient in the past usually has no untoward symptoms Na+ fairly stable today at 130 -follow BMP (10) Diabetes: pharmacy on board for glycemic management patient having issues with hypoglycemia due to poor intake -continues on D5 in fluids since he is receiving Lantus -continue to monitor closely (11) DVT prophylaxis: Lovenox on hold today for thrombocytopenia Dispo-remain on tele given tenuous state Difficult social issues, patient's willy is at bedside all the time patient's mother is alcoholic, father has strained relationship, however willy reports today that pt has started to fill out HCPOA paperwork and wants his father to be his primary decision maker so as not to put the strain of making decisions on his willy service excellence brought paperwork to complete medical POA for willy to make decisions-pending but pt tells me his Dad is to be his decision maker FULL CODE Palliative Care following Subjective Pt very sedated with recent IV dilaudid given this AM. Willy' at bedside is concerned about this. Pt reports the IV dilaudid is the only thing that helps his pain, but isma falls asleep while telling me this. He feels "better" overall , not SOB, pain currently controlled. Denies abd distension. Afebrile. Willy' reports at home his appetite was better when he smoked marijuana. He hasn't eaten much at all in almost 2 weeks. Had a minor nose bleed when had nasal cannula in, but now on Oxymask and no bleeding, no blood in stool, is moving bowels regularly, no blood in urine and is able to void on his own. Review of Systems All systems reviewed & are unremarkable except as noted in HPI & below Physical Exam 2 Vital Signs (Past 24 Hours): Last Vital Signs Temp 36.4 C L 08/26/18 06:59 Pulse 103 H 08/26/18 06:59 Resp 18 08/26/18 06:59 BP 108/63 08/26/18 06:59 Pulse Ox 99 08/26/18 06:59 Constitutional: + cachectic (with OxyMask in place, NAD) Eyes: PERRL, conjunctivae normal, anicteric sclerae ENMT: Ears: no hearing impairment Mouth: + oral mucosal abnormality ( tongue with white plaques) Neck: trachea midline, no thyromegaly Respiratory: normal respiratory effort; no respiratory distress and no labored breathing Auscultation: + crackles (at left base, otherwise clear); no wheezes Cardiovascular: Rate/Rhythm: regular rate and regular rhythm Heart Sounds: no murmur Extremities: + edema (2+ pitting edema to the thighs; +scrotal and penile edema -improved from previous as per fiance) Gastrointestinal (Abdomen): Inspection/Auscultation: + abdomen distended and normal bowel sounds; + abdomen abnormal to inspection Percussion/Palpation: + abdomen tender (diffusely but no guarding), + abdominal mass and normal to percussion (palpable masses) Musculoskeletal: Extremities: no cyanosis and no clubbing Skin: no rashes, warm and dry Neurologic: moves all extremities and awake; no focal motor deficits Psychiatric: Orientation: alert (but drowsy at times) Genitourinary: + edematous penis and + scrotal swelling Results & Data Laboratory Results 08/26/18 08/26/18 08/26/18 Range/Units 07:56 06:20 06:20 WBC 0.05 L* (4.8-10.8) K/uL RBC 3.39 L (4.7-6.1) M/uL Hgb 8.3 L (14.0-18.0) g/dL Hct 25.1 L (42-52) % MCV 74.0 L (80-100) fL MCH 24.5 L (25-34) pg MCHC 33.1 (32-36) g/dL RDW Std Deviation 44.2 (36.4-46.3) fL RDW Coeff of Zuleima 16.3 H (11.5-14.5) % Plt Count 39 L (130-400) K/uL MPV 8.7 (7.4-10.4) fL Immature Gran % (Auto) Cancelled Neut % (Auto) Cancelled Lymph % (Auto) Cancelled Maverick % (Auto) Cancelled Eos % (Auto) Cancelled Baso % (Auto) Cancelled Immature Gran # (Auto) Cancelled Neut # (Auto) Cancelled Lymph # (Auto) Cancelled Maverick # (Auto) Cancelled Eos # (Auto) Cancelled Baso # (Auto) Cancelled Neutrophils % (Manual) Cancelled Band Neutrophils % Cancelled Lymphocytes % (Manual) Cancelled Prolymphocyte % Cancelled Reactive Lymphs % (Man) Cancelled Monocytes % (Manual) Cancelled Eosinophils % (Manual) Cancelled Basophils % (Manual) Cancelled Metamyelocytes % (Man) Cancelled Myelocytes % (Man) Cancelled Promyelocytes % (Man) Cancelled Blast Cells % (Manual) Cancelled Plasma Cell % (Manual) Cancelled Other Cells % Cancelled Nucleated RBC % Cancelled Neutrophils # (Manual) Cancelled Band Neutrophils # Cancelled Total Absolute Neuts Cancelled Lymphocytes # (Manual) Cancelled Prolymphocyte # Cancelled Reactive Lymphs # Cancelled Total Abs Lymphocytes Cancelled Monocytes # (Manual) Cancelled Eosinophils # (Manual) Cancelled Basophils # (Manual) Cancelled Metamyelocytes # (Man) Cancelled Myelocytes # (Manual) Cancelled Promyelocytes # (Man) Cancelled Blast Cells # (Man) Cancelled Plasma Cell # (Manual) Cancelled Other Cells # Cancelled Nucleated RBCs # (Man) Cancelled Hypersegmented Neuts Cancelled Hyposegmented Neuts Cancelled Hypogranular Neuts Cancelled Large Granular Lymphs Cancelled # Lrg Granular Lymphs Cancelled Hairy Cells Cancelled Smudge Cells Cancelled Toxic Granulation Cancelled Toxic Vacuolation Cancelled Dohle Bodies Cancelled Didier Rods Cancelled Platelet Estimate Decreased (Normal) Hypogranular Platelets Cancelled Clumped Platelets Cancelled Giant Platelets Cancelled Platelet Satelliting Cancelled RBC Morphology Cancelled Polychromasia Cancelled Hypochromasia Cancelled Poikilocytosis Cancelled Basophilic Stippling Cancelled Anisocytosis Cancelled Microcytosis Cancelled Macrocytosis Cancelled Spherocytes Cancelled Pappenheimer Bodies Cancelled Sickle Cells Cancelled Target Cells Cancelled Tear Drop Cells Cancelled Ovalocytes Cancelled Stomatocytes Cancelled Blackburn-Winter Bodies Cancelled Echinocytes Cancelled Acanthocytes (Spur) Cancelled Rouleaux Cancelled RBC Agglutinates Cancelled Schistocytes Cancelled RBC Morph Comment Cancelled Sezary Cell Cancelled Sodium (136-145) mmol/L Potassium (3.5-5.1) mmol/L Chloride (98-107) mmol/L Carbon Dioxide (21-32) mmol/L Anion Gap (3-11) BUN (7-18) mg/dl Creatinine (0.6-1.4) mg/dl Est Cr Clr Drug Dosing ml/min Est GFR ( Amer) Est GFR (Non-Af Amer) BUN/Creatinine Ratio (10-20) Glucose (70-99) mg/dl POC Glucose 98 (70-99) Estimat Average Glucose Pending Hemoglobin A1c Pending Calcium (8.5-10.1) mg/dl Magnesium (1.8-2.4) mg/dl Blood Type Antibody Screen Crossmatch 08/26/18 08/25/18 08/25/18 Range/Units 06:20 20:18 16:12 WBC (4.8-10.8) K/uL RBC (4.7-6.1) M/uL Hgb (14.0-18.0) g/dL Hct (42-52) % MCV (80-100) fL MCH (25-34) pg MCHC (32-36) g/dL RDW Std Deviation (36.4-46.3) fL RDW Coeff of Zuleima (11.5-14.5) % Plt Count (130-400) K/uL MPV (7.4-10.4) fL Immature Gran % (Auto) Neut % (Auto) Lymph % (Auto) Maverick % (Auto) Eos % (Auto) Baso % (Auto) Immature Gran # (Auto) Neut # (Auto) Lymph # (Auto) Maverick # (Auto) Eos # (Auto) Baso # (Auto) Neutrophils % (Manual) Band Neutrophils % Lymphocytes % (Manual) Prolymphocyte % Reactive Lymphs % (Man) Monocytes % (Manual) Eosinophils % (Manual) Basophils % (Manual) Metamyelocytes % (Man) Myelocytes % (Man) Promyelocytes % (Man) Blast Cells % (Manual) Plasma Cell % (Manual) Other Cells % Nucleated RBC % Neutrophils # (Manual) Band Neutrophils # Total Absolute Neuts Lymphocytes # (Manual) Prolymphocyte # Reactive Lymphs # Total Abs Lymphocytes Monocytes # (Manual) Eosinophils # (Manual) Basophils # (Manual) Metamyelocytes # (Man) Myelocytes # (Manual) Promyelocytes # (Man) Blast Cells # (Man) Plasma Cell # (Manual) Other Cells # Nucleated RBCs # (Man) Hypersegmented Neuts Hyposegmented Neuts Hypogranular Neuts Large Granular Lymphs # Lrg Granular Lymphs Hairy Cells Smudge Cells Toxic Granulation Toxic Vacuolation Dohle Bodies Didier Rods Platelet Estimate (Normal) Hypogranular Platelets Clumped Platelets Giant Platelets Platelet Satelliting RBC Morphology Polychromasia Hypochromasia Poikilocytosis Basophilic Stippling Anisocytosis Microcytosis Macrocytosis Spherocytes Pappenheimer Bodies Sickle Cells Target Cells Tear Drop Cells Ovalocytes Stomatocytes Blackburn-Winter Bodies Echinocytes Acanthocytes (Spur) Rouleaux RBC Agglutinates Schistocytes RBC Morph Comment Sezary Cell Sodium 130 L (136-145) mmol/L Potassium 3.2 L (3.5-5.1) mmol/L Chloride 98 (98-107) mmol/L Carbon Dioxide 21 (21-32) mmol/L Anion Gap 10.0 (3-11) BUN 34 H (7-18) mg/dl Creatinine 1.18 (0.6-1.4) mg/dl Est Cr Clr Drug Dosing 99.3 ml/min Est GFR ( Amer) 98.1 Est GFR (Non-Af Amer) 84.7 BUN/Creatinine Ratio 29.2 H (10-20) Glucose 84 (70-99) mg/dl POC Glucose 122 H 109 H (70-99) Estimat Average Glucose Hemoglobin A1c Calcium 7.8 L (8.5-10.1) mg/dl Magnesium 2.1 (1.8-2.4) mg/dl Blood Type Antibody Screen Crossmatch 08/25/18 08/25/18 08/25/18 Range/Units 12:16 11:55 11:41 WBC (4.8-10.8) K/uL RBC (4.7-6.1) M/uL Hgb (14.0-18.0) g/dL Hct (42-52) % MCV (80-100) fL MCH (25-34) pg MCHC (32-36) g/dL RDW Std Deviation (36.4-46.3) fL RDW Coeff of Zuleima (11.5-14.5) % Plt Count (130-400) K/uL MPV (7.4-10.4) fL Immature Gran % (Auto) Neut % (Auto) Lymph % (Auto) Maverick % (Auto) Eos % (Auto) Baso % (Auto) Immature Gran # (Auto) Neut # (Auto) Lymph # (Auto) Maverick # (Auto) Eos # (Auto) Baso # (Auto) Neutrophils % (Manual) Band Neutrophils % Lymphocytes % (Manual) Prolymphocyte % Reactive Lymphs % (Man) Monocytes % (Manual) Eosinophils % (Manual) Basophils % (Manual) Metamyelocytes % (Man) Myelocytes % (Man) Promyelocytes % (Man) Blast Cells % (Manual) Plasma Cell % (Manual) Other Cells % Nucleated RBC % Neutrophils # (Manual) Band Neutrophils # Total Absolute Neuts Lymphocytes # (Manual) Prolymphocyte # Reactive Lymphs # Total Abs Lymphocytes Monocytes # (Manual) Eosinophils # (Manual) Basophils # (Manual) Metamyelocytes # (Man) Myelocytes # (Manual) Promyelocytes # (Man) Blast Cells # (Man) Plasma Cell # (Manual) Other Cells # Nucleated RBCs # (Man) Hypersegmented Neuts Hyposegmented Neuts Hypogranular Neuts Large Granular Lymphs # Lrg Granular Lymphs Hairy Cells Smudge Cells Toxic Granulation Toxic Vacuolation Dohle Bodies Didier Rods Platelet Estimate (Normal) Hypogranular Platelets Clumped Platelets Giant Platelets Platelet Satelliting RBC Morphology Polychromasia Hypochromasia Poikilocytosis Basophilic Stippling Anisocytosis Microcytosis Macrocytosis Spherocytes Pappenheimer Bodies Sickle Cells Target Cells Tear Drop Cells Ovalocytes Stomatocytes Blackburn-Winter Bodies Echinocytes Acanthocytes (Spur) Rouleaux RBC Agglutinates Schistocytes RBC Morph Comment Sezary Cell Sodium (136-145) mmol/L Potassium (3.5-5.1) mmol/L Chloride (98-107) mmol/L Carbon Dioxide (21-32) mmol/L Anion Gap (3-11) BUN (7-18) mg/dl Creatinine (0.6-1.4) mg/dl Est Cr Clr Drug Dosing ml/min Est GFR ( Amer) Est GFR (Non-Af Amer) BUN/Creatinine Ratio (10-20) Glucose (70-99) mg/dl POC Glucose 89 65 L* 61 L* (70-99) Estimat Average Glucose Hemoglobin A1c Calcium (8.5-10.1) mg/dl Magnesium (1.8-2.4) mg/dl Blood Type Antibody Screen Crossmatch 08/25/18 Range/Units 10:35 WBC (4.8-10.8) K/uL RBC (4.7-6.1) M/uL Hgb (14.0-18.0) g/dL Hct (42-52) % MCV (80-100) fL MCH (25-34) pg MCHC (32-36) g/dL RDW Std Deviation (36.4-46.3) fL RDW Coeff of Zuleima (11.5-14.5) % Plt Count (130-400) K/uL MPV (7.4-10.4) fL Immature Gran % (Auto) Neut % (Auto) Lymph % (Auto) Maverick % (Auto) Eos % (Auto) Baso % (Auto) Immature Gran # (Auto) Neut # (Auto) Lymph # (Auto) Maverick # (Auto) Eos # (Auto) Baso # (Auto) Neutrophils % (Manual) Band Neutrophils % Lymphocytes % (Manual) Prolymphocyte % Reactive Lymphs % (Man) Monocytes % (Manual) Eosinophils % (Manual) Basophils % (Manual) Metamyelocytes % (Man) Myelocytes % (Man) Promyelocytes % (Man) Blast Cells % (Manual) Plasma Cell % (Manual) Other Cells % Nucleated RBC % Neutrophils # (Manual) Band Neutrophils # Total Absolute Neuts Lymphocytes # (Manual) Prolymphocyte # Reactive Lymphs # Total Abs Lymphocytes Monocytes # (Manual) Eosinophils # (Manual) Basophils # (Manual) Metamyelocytes # (Man) Myelocytes # (Manual) Promyelocytes # (Man) Blast Cells # (Man) Plasma Cell # (Manual) Other Cells # Nucleated RBCs # (Man) Hypersegmented Neuts Hyposegmented Neuts Hypogranular Neuts Large Granular Lymphs # Lrg Granular Lymphs Hairy Cells Smudge Cells Toxic Granulation Toxic Vacuolation Dohle Bodies Didier Rods Platelet Estimate (Normal) Hypogranular Platelets Clumped Platelets Giant Platelets Platelet Satelliting RBC Morphology Polychromasia Hypochromasia Poikilocytosis Basophilic Stippling Anisocytosis Microcytosis Macrocytosis Spherocytes Pappenheimer Bodies Sickle Cells Target Cells Tear Drop Cells Ovalocytes Stomatocytes Blackburn-Winter Bodies Echinocytes Acanthocytes (Spur) Rouleaux RBC Agglutinates Schistocytes RBC Morph Comment Sezary Cell Sodium (136-145) mmol/L Potassium (3.5-5.1) mmol/L Chloride (98-107) mmol/L Carbon Dioxide (21-32) mmol/L Anion Gap (3-11) BUN (7-18) mg/dl Creatinine (0.6-1.4) mg/dl Est Cr Clr Drug Dosing ml/min Est GFR ( Amer) Est GFR (Non-Af Amer) BUN/Creatinine Ratio (10-20) Glucose (70-99) mg/dl POC Glucose (70-99) Estimat Average Glucose Hemoglobin A1c Calcium (8.5-10.1) mg/dl Magnesium (1.8-2.4) mg/dl Blood Type O Negative Antibody Screen NEGATIVE Crossmatch See Detail _ (1) Testicular cancer Descendance of testis: unspecified Laterality: unspecified laterality Qualified Code(s): C62.90 - Malignant neoplasm of unspecified testis, unspecified whether descended or undescended (2) Diabetes Diabetes mellitus type: type 1 Diabetes mellitus complication status: with hypoglycemia Diabetes mellitus complication detail: without coma Qualified Code(s): E10.649 - Type 1 diabetes mellitus with hypoglycemia without coma
[2018-08-26] MEDS ORDERED: FILGRASTIM 300 MCG/ML VIAL SQ ONE (10:50)
[2018-08-26] MEDS: D5W AND 1/2NSS + 20MEQ KCL 20 MEQ/1,000 ML BAG IV SCH ×2 (10:53→20:57)
[2018-08-26] MEDS: LEVOFLOXACIN/D5W 750 MG/150 ML BAG IV SCH (10:54)
[2018-08-26] MEDS ORDERED: FUROSEMIDE 20 MG in SYRINGE 0 ML IV ONE (11:00)
[2018-08-26] MEDS: NYSTATIN SUSP 500,000 U/5 ML UDC PO SCH ×3 (12:46→21:03)
--- NOTE | 2018-08-26 15:04 | Progress Note ---
DATE: 08/26/2018 MEDICAL ONCOLOGY PROGRESS NOTE DIAGNOSES: 1. Acute respiratory failure with hypoxia. 2. Hospital-acquired pneumonia. 3. Metastatic testicular cancer. 4. Pancytopenia attributable to chemotherapy. 5. Abdominal distention due to disease progression. SUBJECTIVE: Brett was seen and examined at bedside this morning. He had no overt complaints. Pain seems to be well controlled. The patient was recently transferred from the medical floor down to telemetry because of labored breathing. Radiographically found to suffer from bibasilar pneumonia. He remains profoundly pancytopenic, which is no surprise. He has received granulocyte colony stimulating growth factor. Mr. Leigh is presently on broad-spectrum antibiotics including vancomycin, Zosyn and Levaquin. He received 2 units packed RBCs on . PHYSICAL EXAMINATION: GENERAL: A 28-year-old gentleman in no acute distress. VITAL SIGNS: Temperature 36.5, pulse 108, respiratory rate 13, blood pressure 99/57. SKIN: Without rash or lesion. HEENT: Oral mucosa negative for thrush. NECK: Supple. Trachea midline. HEART: Tachy, but regular. LUNGS: Blunted breath sounds in the bases bilaterally. ABDOMEN: Mildly distended. No rigidity or guarding. EXTREMITIES: 2+ peripheral edema bilaterally. NEUROLOGIC: Grossly intact. LABORATORY DATA: WBC count 50; hemoglobin 8.3; platelet count 39,000. Sodium 130, potassium 3.2, chloride 98, carbon dioxide 21, BUN 34, creatinine 1.18. IMPRESSION: 1. Acute respiratory failure with hypoxia. 2. Hospital acquired pneumonia. 3. Testicular cancer. 4. Pancytopenia attributable to chemotherapy. 5. Electrolyte dysfunction. PLAN: Appreciate the medical service's efforts regarding Brett' continued care. Obviously, he is in a precarious clinical predicament most attributable to pancytopenia brought on by salvage chemotherapy. Agree with broad-spectrum antibiotics for what appears to be hospital-acquired pneumonia. However, in neutropenic folks, perhaps fungal coverage would be reasonable as well. With this regimen myelosuppression will be prolonged, thus Diflucan intravenously daily should be added. Agree with transfusional support. Apparently, palliative service has been in consultation and appreciate their input as well. Brett is requesting to remain full code. We will have Dr. Cruz continue this discussion regarding his overall prognosis, which is exceedingly poor. I have nothing further to add; however, we will communicate his most recent clinical developments to Dr. Cruz. Thank you again for your efforts in the care of this very complex gentleman. MARIA LUISA
[2018-08-26] MEDS ORDERED: VANCOMYCIN TROUGH ONE (19:30)
[2018-08-26] MEDS ORDERED: INSULIN GLARGINE SOLOSTAR 100 UNITS/ML 3 ML PEN SC SCH (21:00)
[2018-08-26] MEDS: OXYCODONE HCL IR 5 MG TAB (IMMEDIATE RELEASE) PO PRN (21:50)
--- NOTE | 2018-08-26 22:09 | Pharmacy Report ---
Pharmacy Abx Dose Short Note - Date of Service August 26, 2018 - Assessment & Plan Assessment 28 year old M receiving IV Vancomycin for treatment of pneumonia Day # 2 of antimicrobial therapy. Plan Vancomycin * Trough level of 26.6 mcg/mL (appropriately drawn) is supratherapeutic. Of note, this was an early level not reflective of steady state. Patient already received ~1/2 of Vancomycin 1250mg dose by the time level was assessed. Nursing was called to *STOP* infusion early. Anticipate that level incr' to 38.6 mcg/mL. Will delay next dose by ~8 hours to give time for level to decr' to therapeutic range prior to re-dose. Extend dosing regimen to target a lower trough. * Change to 1000 mg IV every 16 hours * Goal trough level for pneumonia : 15 to 20 mcg/mL * Trough level ordered for: 08/28/18 @ 1130 (only prior to 2nd dose and therefore not reflective of steady state, but would like to assess dosing regimen earlier due to recent supratherapeutic level) Pharmacy will continue to follow and will adjust dose/frequency as necessary. Thank you.
[2018-08-26] MEDS: LORazepam 0.5 MG/1 ML VIAL IV PRN (23:06)
[2018-08-27] MEDS: DEXAMETHASONE CONC 3.75 MG, NYSTATIN 30 ML, DiphenhydrAMINE Syrup 300 MG, ORA-SWEET SYR... PO SCH ×6 (00:45→21:58)
[2018-08-27] MEDS: OXYCODONE HCL IR 5 MG TAB (IMMEDIATE RELEASE) PO PRN ×3 (04:24→17:42)
[2018-08-27 05:46] LABS: Estimated Average Glucose 169 mg/dl
[2018-08-27 08:06] LABS: BUN Creatinine Ratio 32.1 (10-20); Calcium 7.9 mg/dl (8.5-10.1); Creatinine Clr Calc Pharmacy 110.4 ml/min; Est GFR (African American) 106.8; Est GFR (Non-African American) 92.2; Magnesium 2.1 mg/dl (1.8-2.4); Potassium 2.6 mmol/L (3.5-5.1)
[2018-08-27] MEDS: INSULIN ASPART 100 UNITS/ML 3 ML PEN SC SCH ×4 (08:14→21:05)
[2018-08-27] MEDS: PIPERACILLIN/TAZOBACTAM 3.375 GM in DEXTROSE 5% 100 ML IV SCH ×3 (08:15→23:55)
[2018-08-27] MEDS: CITALOPRAM 20 MG TAB PO SCH (08:17)
[2018-08-27] MEDS: NYSTATIN SUSP 500,000 U/5 ML UDC PO SCH ×4 (08:19→21:20)
[2018-08-27] MEDS: NICOTINE 21 MG/24 HR TDSY TD SCH (08:19)
[2018-08-27] MEDS: FAMOTIDINE 20 MG TAB PO SCH ×2 (08:20→21:21)
[2018-08-27 08:28] LABS: Hematocrit (blood only) 24.9 % (42-52); Hemoglobin 8.3 g/dL (14.0-18.0); Mean Corpuscular Hgb Conc 33.3 g/dL (32-36); Platelet Count 20 K/uL (130-400); RDW Coefficient of Variation 16.5 % (11.5-14.5); RDW Standard Deviation 44.7 fL (36.4-46.3); Red Blood Count 3.41 M/uL (4.7-6.1); White Blood Count 0.09 K/uL (4.8-10.8)
[2018-08-27] MEDS ORDERED: INSULIN GLARGINE SOLOSTAR 100 UNITS/ML 3 ML PEN SC SCH (09:00)
--- NOTE | 2018-08-27 09:21 | Palliative Care Progress Note ---
Date of Service August 27, 2018 Assessment & Plan (1) Palliative care encounter: Patient is a 28-year-old male with metastatic testicular cancer diagnosed in June 2017. 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 Patient's alpha-fetoprotein remained elevated after resection-in August 2017 CT scan showed large retroperitoneal mass involving the left ureter and aorta. Patient underwent chemo from September through December-on 01/29 he underwent surgical resection of the mass-fianc reports that they were told it was removed completely. Patient was lost to follow-up until this August when he presented with an enlarged abdomen and lower extremity edema. CT scan done on 07/23 showed mediastinal adenopathy as well as paratracheal, avascular necrosis of the left hip, right kidney infarct with scarring, large multiple masses in the omentum and mesentery, pelvic mass 8.5 cm, a 2.3 cm left inguinal mass and lesions abutting the liver. Patient's market abdominal distention was evaluated by ultrasound on 08/13-this showed trace ascites. CT scan performed on 08/22 showed large amount of ascites-patient underwent paracentesis for 5 L of fluid. -Patient re-itterated that he would like to remain a FULL CODE when CODE STATUS discussed. -I contacted [employer] and left a message as he did confirm that he would like his Ashlie st to be his POA in the event he is unable to make decisions on his own. -We discussed at length his home situation and possibility to live with his norbert' family down near [place] post discharge for him to receive further treatment and be in a less toxic environment. He agreed this would be best and a possibility. He stated that his fiantonio' mother ' treats him like a son of her own' and 'that would be probably be best'. He will speak with Alida about this. (2) Abdominal pain: -Patient was asleep when I entered the room but he woke easily by me saying his name and we were able to hold a full conversation with clarity. No other visitors present. -The patient stated his breathing has improved and his pain feels 'ok'. -He does not appear to be using any accessory muscles for breathing effort and his SpO2 was 95% on RA. -His abdomen appears marked less distended compared to my last encounter pre paracentesis. -His testicular swelling appears to be lessened as well. -He is tolerating the transition from IV to po management for his breakthrough pain as his Dilaudid IV was switched to Roxicodone 5 mg po Q4 PRN. He has taken 2 doses over the past 24 hours. -He states that his pain is primarily in his abdomen and pelvis but improves with ambulation. I encouraged him to ambulate for muscle preservation and for comfort. -For now, continue current pain management and monitor for increased breakthrough usage. (3) Testicular cancer: -Patient receiving aggressive chemo-plan is to continue with aggressive chemo and aggressive treatment of his bilateral basilar infiltrates -patient testicular swelling present, but appears lessened from previous encounters (4) Abdominal distention: -Status post paracentesis of 5 L-continue to monitor -Patient remains guarded with his abdomen, but far less distention (5) Anxiety: Continue as needed Ativan-last dose on 08/26 (6) Urinary retention: Patient voiding well-Coates catheter removed and patient tolerating Subjective Patient was asleep when I entered the room but he woke easily by me saying his name. No other vistitors present. The patient stated his breathing has improved and his pain feels 'ok'. He does not appear to be using any accessory muscles for breathing effort and his SpO2 was 95% on RA. His abdomen appears marked less distended compared to my last encounter pre paracentesis. His testicular swelling appears to be lessened as well. He is tolerating the transition from IV to po management for his breakthrough pain as his Dilaudid IV was switched to Roxicodone 5 mg po Q4. He has taken 2 doses over the past 24 hours. He states that his pain is primarily in his abdomen and pelvis but improves with ambulation. I encouraged him to ambulate for muscle preservation and for comfort Patient re-itterated that he would like to remain a FULL CODE I contacted [employer] and left a message as he did confirm that he would like his fiance'Ashlie to be his POA in the event he is unable to make decisions on his own. For now, continue current pain management and monitor breakthrough usage. Physical Exam 2 Vital Signs (Past 24 Hours): Last Vital Signs Temp 36.3 C L 08/27/18 07:00 Pulse 85 08/27/18 07:00 Resp 14 08/27/18 07:00 BP 101/71 08/27/18 07:00 Pulse Ox 96 08/27/18 07:00 Neck: trachea midline, no thyromegaly Respiratory: normal respiratory effort, lungs clear to auscultation Cardiovascular: Rate/Rhythm: regular rate and regular rhythm Heart Sounds: normal S1 and normal S2 Extremities: + edema (LLE +3) Gastrointestinal (Abdomen): Inspection/Auscultation: + abdomen distended; no abdominal edema, no visible herniation and no visible peristalsis Percussion/ Palpation: + guarding Skin: no rashes, warm and dry + skin tightening Psychiatric: A+Ox3, euthymic affect Genitourinary: + edematous penis, + edematous scrotum, + scrotal mass, + testicular swelling and + testicular tenderness Time Spent Midlevel Total time spent 35 minutes with > 50% of that time assessing the patient, discussing GOALS OF CARE, pain management and updating IDT _ (1) Testicular cancer Descendance of testis: descended Laterality: left Qualified Code(s): C62.12 - Malignant neoplasm of descended left testis (2) Abdominal pain Abdominal location: generalized Qualified Code(s): R10.84 - Generalized abdominal pain
--- NOTE | 2018-08-27 09:28 | Progress Note ---
DATE: 08/27/2018 MEDICAL ONCOLOGY PROGRESS NOTE DIAGNOSES: 1. Acute respiratory failure with hypoxia. 2. Hospital-acquired pneumonia. 3. Metastatic testicular cancer. 4. Pancytopenia, attributable to chemotherapy, abdominal distention due to disease progression. SUBJECTIVE: Brett was seen and examined at bedside this morning. He has a bit more somnolent than he was yesterday. He has no complaints of pain. Nursing reports no problems overnight. Brett remains profoundly pancytopenic and will unfortunately be so for several days moving forward. He has received granulocyte colony stimulating growth factor support and blood transfusion on . He continues broad-spectrum antimicrobials and I have asked the hospitalist service to add antifungal coverage at this point. The patient reports moving his bowels over the past 24 hours. Again, he was quite somnolent and really had no further complaints. PHYSICAL EXAMINATION: GENERAL: Somnolent 28-year-old gentleman in no acute distress. VITAL SIGNS: Temperature 36.3, pulse 85, respiratory rate 14, blood pressure 101/71. SKIN: Without rash or lesion. HEENT: No evidence of thrush. NECK: Supple. HEART: Regular rate and rhythm. LUNGS: Diminished basilar breath sounds. No rales or rhonchi appreciated. ABDOMEN: Mildly distended, firm. Bowel sounds hypoactive. No rigidity or guarding. EXTREMITIES: 2+ peripheral edema bilaterally. NEUROLOGIC: Grossly intact. LABORATORY DATA: WBC count 90, hemoglobin 8.3, platelet count 20,000. Sodium 130, potassium 2.6, carbon dioxide 20, BUN 35, creatinine 1.1. IMPRESSION: 1. Hypokalemia. 2. Acute respiratory failure with hypoxia. 3. Hospital-acquired pneumonia. 4. Metastatic testicular cancer. 5. Pancytopenia, attributable to chemo. 6. Hypoalbuminemia. PLAN: Again, we will ask the hospitalist service to add antifungal coverage as Mr. Leigh's myelosuppression will be prolonged given the administration of ifosfamide. Continue broad-spectrum antimicrobials. Encourage protein intake. Platelets are adequate; however, would transfuse should they drop below 15,000. His hemoglobin seems to be holding steady. White count has remained relatively stable, may be a very slight improvement, but certainly not even close to being out of the critical range. I agree with current pain management strategy. Again, will update Dr. Cruz with the patient's progress and desire to remain a full code. Thank you again for your assistance in this very complex gentleman.
[2018-08-27] MEDS ORDERED: D5W AND NSS 1,000 ML IV SCH (09:30)
[2018-08-27] MEDS: POTASSIUM CHLORIDE / WTR 20 MEQ/100 ML PLCT IV SCH ×3 (09:47→13:14)
[2018-08-27] MEDS ORDERED: CASPOFUNGIN 70 MG in SODIUM CHLORIDE 0.9% 250 ML IV ONE (10:00)
[2018-08-27] MEDS: DRONABINOL 2.5 MG CAP PO SCH ×2 (10:10→21:20)
--- NOTE | 2018-08-27 10:12 | Pharmacy Report ---
PHA: Glycemic Control AP - Date of Service August 27, 2018 - Assessment & Plan Outpatient Anti-diabetic Regimen: * Tresiba 21 units SQ daily plus Novolog The patient is currently receiving: * Basal insulin: Lantus 5 units every 24 hours in the evening ( and 08/25. Patient refused insulin 08/26) * Correctional Insulin: Novolog Correction per scale ACHS Goal Range: Low 140 mg/dL - High 180 mg/dL Correction Factor: 30 mg/dL/unit * Prandial insulin: Per carb ratio of 1 unit per 18 grams CHO consumed Risk Factors for Insulin Resistance: * Diet: T1DM ASSESSMENT: * Mr Leigh is a 28 y/o M with T1DM and testicular CA admitted for abdominal pain. * BSG's ranged 55-98 mg/dL yesterday * Unclear cause of hypoglycemia - Lantus dose reduced far more than typical 20% reduction for a type 1 diabetic. Furthermore, BSG was only 94 mg/dL this AM despite no insulin ycoe-ib-coca adminsitered on 08/26 2nd patient refusal (and even hypoglycemia x1 on 08/26). * Patients with type 1 diabetes all require insulin (even if BSG's at/below goal ) to prevent metabolic complications including DKA / metabolic acidosis. * I am concerned that even with the D5 containing infusion patient is not receiving adequate insulin to prevent such complications - CO2 trended down slightly and anion gap trended up slightly this AM * Spoke w Dr. Fowler. Collaboratively decided on the following plan: * For this patient, instead of titrating *insulin* to BSG's, will give the insulin required to prevent DKA and then titrate *dextrose* per BSG * Will continue Lantus at 5 units daily (acknowledging that this dose caused hypoglycemia x1 episode x2 days in a row 08/25 and 08/26) as this dose seemed to be adequate to maintain CO2, anion gap within normal limits * Will increase dextrose infusion by discontinuing D5 NS @ 70 mL/hr and initiate titratable D10 NS KCl 20mEq/L PLAN FOR INPATIENT GLYCEMIC CONTROL: * Basal insulin * Lantus 5 units SQ qAM - 1st dose now * Bolus insulin * NovoLog per scale ACHS or Q6hrs while NPO * Goal Range: Low 140 mg/dL - High 180 mg/dL * Correction Factor: 30 mg/dL/unit * Nutritional / Prandial insulin per carb ratio of 1 unit per 18 grams CHO consumed * D10 NS with KCl 20 mEq/L titratable drip. Titrate ACHS based on BSG as follows: * Start @ 70 mL/hr * Range: 40-80 mL/hr * Increase 10 mL/hr for BSG < 100 mg/dL * Decrease 10 mL/hr for BSG > 140 mg/dL Pharmacy will continue to monitor patient daily and write orders per [facility] inpatient glycemic control protocol. Thanks. * Please note that the plan above was derived based on current level of insulin resistance and hospital stress. These recommendations are appropriate for inpatient admission only. Plan of care upon discharge will need to be reassessed to avoid potential outpatient hypo/hyperglycemia.
[2018-08-27] MEDS ORDERED: FILGRASTIM 300 MCG/ML VIAL SQ ONE (11:00)
[2018-08-27] MEDS: INSULIN GLARGINE SOLOSTAR 100 UNITS/ML 3 ML PEN SC SCH (11:00)
[2018-08-27] MEDS: LEVOFLOXACIN/D5W 750 MG/150 ML BAG IV SCH (11:05)
[2018-08-27] MEDS: SOD CHLOR IV SCH (11:16)
[2018-08-27] MEDS: DEXTROSE 10% IV SCH (11:16)
[2018-08-27] MEDS: POTASSIUM CHLORIDE IV SCH (11:16)
[2018-08-27] MEDS: [UNRECOGNIZED DRUG - REMARK] SCH ×3 (11:43→21:20)
[2018-08-27] MEDS: ACETAMINOPHEN 325 MG TAB PO PRN (14:21)
--- NOTE | 2018-08-27 16:20 | Hospitalist Progress Note ---
Date of Service for the August 22, 2018 Assessment & Plan (1) Pancytopenia due to antineoplastic chemotherapy: (2) Neutropenia: (3) Testicular cancer: (4) Abdominal pain: (5) DVT prophylaxis: 28-year-old white male admitted on August 17, 2018 because of testis cancer and abdominal distention likely from cancer metastases, he was admitted on August 16, 2018 for the same condition but he was eloped on the day of admission, he has been agreeable to stay and started chemo therapy, Testicular cancer with metastasis, with distended abdomen possible his cancer disease Oncology input appreciated, patient requires 3 additional doses of the cisplatin , ifosfamide, and [place], second dose of total of 3 additional doses for chemo, were done 2 days ago Neutropenic/anemic, platelet level is normal, likely from chemo, continue chemo , has been on neutropenic precaution, will watch WBC, Nulasta per onco Abdominal distention: Likely to be a bulky tumor with some ascites, discussed possible fluid removal, discussed the risk and benefit of fluid removal,may plan the procedure of paracentesis Chronic kidney disease stage 2, GFR 60-89 ml/min: Severe abdominal distention/pain and scrotal pain: See below 3+ edema and scrotal edema, likely because of hypoalbuminemia , Medication Instructions: Warfarin is a medicine prescribed to prevent blood clots Warfarin will thin your blood and help prevent new clots Take your medications exactly as directed Never skip a dose. Never take a double dose. If you miss a dose, take it as soon as you remember It is important for your doctor to monitor your prothrombin time (PT). This is a lab test Keep your appointment for lab tests Risk of Adverse Drug Reactions and Interactions: Warfarin increases your risk of bleeding The food you eat and other medications you take can affect how Warfarin works in your body Ask your doctor about daily aspirin therapy It is very important to talk with your doctor about all of the other medicines, antibiotics, vitamins or herbal products that you are taking All of your medication must be approved by your doctor, including new medicines, as well as medicines you have taken before you started taking Warfarin Diet: In order for Warfarin to work properly, it is important to keep your intake of Vitamin K as consistent as possible You should avoid any sudden change in Vitamin K intake Report any significant changes in your diet or weight to your doctor Call your Primary Care doctor if you experience any of the following: Swelling or Pain in your leg Sudden, continuous pain deep in a muscle Pain that worsens when you are active or when you stand still for a long time Chest Pain Sudden Shortness of Breath Rapid or pounding heart beat Fainting Dizziness Cough with blood or bloody sputum Sweating more than normal Bruises Heavy or uncontrolled bleeding Blood in your urine, stool or vomit Black or tarry stools Caring for Your Self at Home: Avoid sitting, standing or lying down for long periods without moving your legs and feet When traveling by car, stop to get out and move around at least once every 3 hours On long airplane, train or bus rides, get up and move around when possible If you can't get up, wiggle your toes and tighten your calves to keep your blood moving Follow Up: It is important for you to keep your follow up appointments with your medical provider. px ordered Subjective Still have severe lower abdomen and scrotal area pain overnight, which has been help with lasix and dilaudid Palliative care consult for the goal on her care and pain management Review of Systems Constitutional: Positive weakness, or fatigue Respiratory: no cough, sputum, wheezing, or dyspnea on exertion Cardiac: No chest pain, No orthopnea, No PND, Abdomen: See HPI, Musculoskeletal: Positive lower extremity swelling, no joint pain, : No incontinence, No hematuria Neurologic: No paralysis, No weakness, No numbness/tingling, Psychiatric: No depression symptoms, No anhedonism, No anxiety, Heme: No abnormal bleeding/bruising, No clotting problems, No swollen lymph nodes, No night sweats Skin: No rash, No itch, No new/changing skin lesions, No color change, No bleeding Physical Exam 2 Vital Signs (Past 24 Hours): Last Vital Signs Temp 36.5 C 08/27/18 14:56 Pulse 85 08/27/18 14:56 Resp 19 08/27/18 14:56 BP 102/60 08/27/18 14:56 Pulse Ox 98 08/27/18 14:56 Physical Exam: General Appearance: Significant pain, frail, pale, chronically ill looking, Eyes: normal inspection, PERRL, EOMI, sclerae normal ENT: normal ENT inspection, hearing grossly normal, pharynx normal Neck: supple, no adenopathy, thyroid normal, no JVD, no carotid bruits, trachea midline Respiratory/Chest: chest non-tender, normal breath sounds, no respiratory distress, no accessory muscle use, breath sounds, rales, wheezing Cardiovascular: regular rate, rhythm, no JVD, no murmur Abdomen: Severe distended, firm, positive tender, scrotal area is swelling 2+, Extremities: 3+ edema, normal range of motion, non-tender, normal inspection, joint has no limited range of motion, capillary refill is normal, no cyanosis clubbing Neurologic/Psychiatric: 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 _ (1) Testicular cancer Descendance of testis: descended Laterality: left Qualified Code(s): C62.12 - Malignant neoplasm of descended left testis (2) Abdominal pain Abdominal location: generalized Qualified Code(s): R10.84 - Generalized abdominal pain
--- NOTE | 2018-08-27 16:21 | Hospitalist Progress Note ---
Date of Service August 27, 2018 Assessment & Plan (1) Testicular cancer: Advanced, metastatic, aggressive. 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 Then was apparently lost to follow up for 5 months and returned in the last month for worsening abd pain and distension -has abdominal carcinomatosis, thoracic mediastinal adenopathy -poor prognosis Dr. Cruz fears he will not survive long enough to see if chemotherapy working completed a cycle of chemotherapyon 08/21, no further chemo planned until September now has complications with neutropenia, pneumonia, pancytopenia, hypoxia patient wishes to continue treatment, remain level 1 unless he is determined to be in a vegetative state as per his Advanced directive Had excessive sedation with opioids -decrease MS Contin to 60mg po q12h -dc'd IV dilaudid -continue oxycodone 5mg po q4h prn breakthrough pain -started Marinol 2.5mg po bid for appetite stimulation, nausea-seems to be helping -Appreciate Pallaitive Care and Oncology consultations -will d/w Oncology about need to repeat tumor markers during this admission as per request of patient's partner -awaiting counts to recover as below (2) Abdominal distention: due to large tumor, abdominal wall edema, malignant ascites had paracentesis on 08/22 with 5L removed, tolerated well . No studies were sent on fluid -continues to feel better but remains with abd distension -follow to see if needs repeat tap, however with severe thrombocytopenia will hold off for today (3) Pancytopenia due to antineoplastic chemotherapy: As per "Anemia" and "Neutropenia" diagnoses [place] may not be for a few more days as he had a delay in getting his entire regimen of chemo Plus, platelets today down to 20k. No bleeding -no transfusion needed today -continue to hold Lovenox today -follow CBC -transfuse if plts<15k or if has significant bleeding (4) Neutropenia: WBC increased slightly today to 0.09 no fever received Neulasta over the weekend Received Neupogen 300mcg on 08/25, 08/26 -will repeat Neupogen dose daily until WBC improves and neutropenia resolved -follow CBC (5) Acute respiratory failure with hypoxia: Had labored breathing and hypoxia on 08/25 Found to have bibasilar pneumonia on CTA Chest, no PE (checked due to tachycardia, chest pain and high risk for clot given malignancy) Also anemia contributing Now s/p PRBCs and IV lasix, improved O2 requirement now resolved -continue treatment of HCAP as below - patient wants to remain a level one, would want intubated if needed (6) Hospital acquired PNA: bibasilar ground glass opacities seen on CT chest 08/25 when had worsening hypoxia was seen on CXR 08/25 as well has a mild cough, not very productive Improved clinically the last 2 days -continue broad spectrum antibiotics due to neutropenia as well as treatment for Gram negative PNA and coverage for MRSA PNA -continue Vancomcyin, Zosyn, Levaquin day #3 -added on Caspofungin for antifungal coverage as per Oncology recommendation although risk of fungal infection at one week out from chemo is less likely (7) CKD (chronic kidney disease) stage 2, GFR 60-89 ml/min: Cr stable at 1.10 Improved oral intake today -continue D10NS with KCl 20meq for now -follow BMP (8) Hyponatremia: This is been a persistent problem for the patient in the past usually has no untoward symptoms Na+ stable today at 130 -follow BMP (9) Anemia: due to bone marrow suppression with recent chemotherapy Hb 7.0 and was transfused on 08/25 2 units PRBCs Hgb now up to 8.3 and stable since yesterday, no transfusion needed today -follow CBC in AM (10) Urinary retention: previously secondary to tumor burden and was self-cathing, now resolved (11) Diabetes: pharmacy on board for glycemic management patient having issues with hypoglycemia due to poor intake, required glucagon on 08/26. Improving today with increased po intake Becoming mildly acidotic today with HCO3 20 due to very low insulin levels Discussed with Pharmacist--> increase to D10 in IVFs so we can increase Lantus to 5 units daily and imprve acidosis -continue to monitor closely -follow BMP (12) Abdominal pain: Secondary to metastatic disease and malgnant ascites -Palliative Care following -continue MS Contin but lowered dose to 60mg po q12 -continue oxycodone prn breakthrough pain -paracentesis as needed (13) DVT prophylaxis: Lovenox on hold for thrombocytopenia Dispo-remain on tele given tenuous state Difficult social issues, patient's fiance is at bedside all the time patient's mother is alcoholic, father has strained relationship, Pt has completed the HCPOA paperwork and designated his Fiance' Ashlie, to be his primary decision maker service excellence was involved in witnessing the paperwork FULL CODE Palliative Care following Subjective Pt says he is feeling better today. He denies abd pain, denies SOB and is weaned off O2. Willy' at the bedside and said he was much more alert today but is sleeping now. He states he moved his bowels, is getting his urine out. He has officially made his fiantonio'' his HCPOA and I reviewed that paperwork confirming this. He ate some Ng's today. I discussed his care with Dr. Cruz on the phone today. Review of Systems All systems reviewed & are unremarkable except as noted in HPI & below Physical Exam 2 Vital Signs (Past 24 Hours): Last Vital Signs Temp 36.5 C 08/27/18 14:56 Pulse 85 08/27/18 14:56 Resp 19 08/27/18 14:56 BP 102/60 08/27/18 14:56 Pulse Ox 98 08/27/18 14:56 Constitutional: + cachectic; no acute distress Eyes: PERRL, conjunctivae normal, anicteric sclerae ENMT: Ears: no hearing impairment Mouth: + oral mucosal abnormality ( tongue with white plaques) Neck: trachea midline, no thyromegaly Respiratory: normal respiratory effort, lungs clear to auscultation normal respiratory effort; no respiratory distress and no labored breathing Auscultation: + crackles (at left base, otherwise clear); no wheezes Cardiovascular: RRR, no murmur, no edema Rate/Rhythm: regular rate and regular rhythm Heart Sounds: no murmur Extremities: + edema (2+ pitting edema to the thighs; +scrotal and penile edema -improved from previous as per willy) Gastrointestinal (Abdomen): normal bowel sounds, soft, nontender, no hepatosplenomegaly Inspection/Auscultation: + abdomen distended and normal bowel sounds; + abdomen abnormal to inspection Percussion/Palpation: + abdominal mass; + abnormal to percussion (palpable masses) Musculoskeletal: Extremities: extremities normal to inspection; no cyanosis and no clubbing Skin: no rashes, warm and dry Neurologic: moves all extremities and awake; no focal motor deficits Psychiatric: Orientation: alert (but drowsy at times) Genitourinary: + edematous penis and + scrotal swelling Results & Data Laboratory Results 08/27/18 08/27/18 08/27/18 Range/Units 10:56 07:23 07:23 WBC 0.09 L* (4.8-10.8) K/uL RBC 3.41 L (4.7-6.1) M/uL Hgb 8.3 L (14.0-18.0) g/dL Hct 24.9 L (42-52) % MCV 73.0 L (80-100) fL MCH 24.3 L (25-34) pg MCHC 33.3 (32-36) g/dL RDW Std Deviation 44.7 (36.4-46.3) fL RDW Coeff of Zuleima 16.5 H (11.5-14.5) % Plt Count 20 L* (130-400) K/uL Immature Gran % (Auto) Cancelled Neut % (Auto) Cancelled Lymph % (Auto) Cancelled [place] % (Auto) Cancelled Eos % (Auto) Cancelled Baso % (Auto) Cancelled Immature Gran # (Auto) Cancelled Neut # (Auto) Cancelled Lymph # (Auto) Cancelled [place] # (Auto) Cancelled Eos # (Auto) Cancelled Baso # (Auto) Cancelled Neutrophils % (Manual) Cancelled Band Neutrophils % Cancelled Lymphocytes % (Manual) Cancelled Prolymphocyte % Cancelled Reactive Lymphs % (Man) Cancelled Monocytes % (Manual) Cancelled Eosinophils % (Manual) Cancelled Basophils % (Manual) Cancelled Metamyelocytes % (Man) Cancelled Myelocytes % (Man) Cancelled Promyelocytes % (Man) Cancelled Blast Cells % (Manual) Cancelled Plasma Cell % (Manual) Cancelled Other Cells % Cancelled Nucleated RBC % Cancelled Neutrophils # (Manual) Cancelled Band Neutrophils # Cancelled Total Absolute Neuts Cancelled Lymphocytes # (Manual) Cancelled Prolymphocyte # Cancelled Reactive Lymphs # Cancelled Total Abs Lymphocytes Cancelled Monocytes # (Manual) Cancelled Eosinophils # (Manual) Cancelled Basophils # (Manual) Cancelled Metamyelocytes # (Man) Cancelled Myelocytes # (Manual) Cancelled Promyelocytes # (Man) Cancelled Blast Cells # (Man) Cancelled Plasma Cell # (Manual) Cancelled Other Cells # Cancelled Nucleated RBCs # (Man) Cancelled Hypersegmented Neuts Cancelled Hyposegmented Neuts Cancelled Hypogranular Neuts Cancelled Large Granular Lymphs Cancelled # Lrg Granular Lymphs Cancelled Hairy Cells Cancelled Smudge Cells Cancelled Toxic Granulation Cancelled Toxic Vacuolation Cancelled Dohle Bodies Cancelled Didier Rods Cancelled Hypogranular Platelets Cancelled Clumped Platelets Cancelled Giant Platelets Cancelled Platelet Satelliting Cancelled RBC Morphology Cancelled Polychromasia Cancelled Hypochromasia Cancelled Poikilocytosis Cancelled Basophilic Stippling Cancelled Anisocytosis Cancelled Microcytosis Cancelled Macrocytosis Cancelled Spherocytes Cancelled Pappenheimer Bodies Cancelled Sickle Cells Cancelled Target Cells Cancelled Tear Drop Cells Cancelled Ovalocytes Cancelled Stomatocytes Cancelled [place] Bodies Cancelled Echinocytes Cancelled Acanthocytes (Spur) Cancelled Rouleaux Cancelled RBC Agglutinates Cancelled Schistocytes Cancelled RBC Morph Comment Cancelled [place]zary Cell Cancelled Sodium 130 L (136-145) mmol/L Potassium 2.6 L D (3.5-5.1) mmol/L Chloride 98 (98-107) mmol/L Carbon Dioxide 20 L (21-32) mmol/L Anion Gap 12.0 H (3-11) BUN 35 H (7-18) mg/dl Creatinine 1.10 (0.6-1.4) mg/dl Est Cr Clr Drug Dosing 110.4 ml/min Est GFR ( Amer) 106.8 Est GFR (Non-Af Amer) 92.2 BUN/Creatinine Ratio 32.1 H (10-20) Glucose 81 (70-99) mg/dl POC Glucose 97 (70-99) Estimat Average Glucose mg/dl Hemoglobin A1c (4.5-5.6) % Calcium 7.9 L (8.5-10.1) mg/dl Magnesium 2.1 (1.8-2.4) mg/dl Vancomycin Trough (See Comment) mcg/ml 08/27/18 08/26/18 08/26/18 Range/Units 07:11 20:23 19:51 WBC (4.8-10.8) K/uL RBC (4.7-6.1) M/uL Hgb (14.0-18.0) g/dL Hct (42-52) % MCV (80-100) fL MCH (25-34) pg MCHC (32-36) g/dL RDW Std Deviation (36.4-46.3) fL RDW Coeff of Zuleima (11.5-14.5) % Plt Count (130-400) K/uL Immature Gran % (Auto) Neut % (Auto) Lymph % (Auto) [place] % (Auto) Eos % (Auto) Baso % (Auto) Immature Gran # (Auto) Neut # (Auto) Lymph # (Auto) [place] # (Auto) Eos # (Auto) Baso # (Auto) Neutrophils % (Manual) Band Neutrophils % Lymphocytes % (Manual) Prolymphocyte % Reactive Lymphs % (Man) Monocytes % (Manual) Eosinophils % (Manual) Basophils % (Manual) Metamyelocytes % (Man) Myelocytes % (Man) Promyelocytes % (Man) Blast Cells % (Manual) Plasma Cell % (Manual) Other Cells % Nucleated RBC % Neutrophils # (Manual) Band Neutrophils # Total Absolute Neuts Lymphocytes # (Manual) Prolymphocyte # Reactive Lymphs # Total Abs Lymphocytes Monocytes # (Manual) Eosinophils # (Manual) Basophils # (Manual) Metamyelocytes # (Man) Myelocytes # (Manual) Promyelocytes # (Man) Blast Cells # (Man) Plasma Cell # (Manual) Other Cells # Nucleated RBCs # (Man) Hypersegmented Neuts Hyposegmented Neuts Hypogranular Neuts Large Granular Lymphs # Lrg Granular Lymphs Hairy Cells Smudge Cells Toxic Granulation Toxic Vacuolation Dohle Bodies Didier Rods Hypogranular Platelets Clumped Platelets Giant Platelets Platelet Satelliting RBC Morphology Polychromasia Hypochromasia Poikilocytosis Basophilic Stippling Anisocytosis Microcytosis Macrocytosis Spherocytes Pappenheimer Bodies Sickle Cells Target Cells Tear Drop Cells Ovalocytes Stomatocytes [place] Bodies Echinocytes Acanthocytes (Spur) Rouleaux RBC Agglutinates Schistocytes RBC Morph Comment Sezary Cell Sodium (136-145) mmol/L Potassium (3.5-5.1) mmol/L Chloride (98-107) mmol/L Carbon Dioxide (21-32) mmol/L Anion Gap (3-11) BUN (7-18) mg/dl Creatinine (0.6-1.4) mg/dl Est Cr Clr Drug Dosing ml/min Est GFR ( Amer) Est GFR (Non-Af Amer) BUN/Creatinine Ratio (10-20) Glucose (70-99) mg/dl POC Glucose 94 98 (70-99) Estimat Average Glucose mg/dl Hemoglobin A1c (4.5-5.6) % Calcium (8.5-10.1) mg/dl Magnesium (1.8-2.4) mg/dl Vancomycin Trough 26.6 (See Comment) mcg/ml 08/26/18 08/26/18 Range/Units 16:35 06:20 WBC (4.8-10.8) K/uL RBC (4.7-6.1) M/uL Hgb (14.0-18.0) g/dL Hct (42-52) % MCV (80-100) fL MCH (25-34) pg MCHC (32-36) g/dL RDW Std Deviation (36.4-46.3) fL RDW Coeff of Zuleima (11.5-14.5) % Plt Count (130-400) K/uL Immature Gran % (Auto) Neut % (Auto) Lymph % (Auto) [place] % (Auto) Eos % (Auto) Baso % (Auto) Immature Gran # (Auto) Neut # (Auto) Lymph # (Auto) [place] # (Auto) Eos # (Auto) Baso # (Auto) Neutrophils % (Manual) Band Neutrophils % Lymphocytes % (Manual) Prolymphocyte % Reactive Lymphs % (Man) Monocytes % (Manual) Eosinophils % (Manual) Basophils % (Manual) Metamyelocytes % (Man) Myelocytes % (Man) Promyelocytes % (Man) Blast Cells % (Manual) Plasma Cell % (Manual) Other Cells % Nucleated RBC % Neutrophils # (Manual) Band Neutrophils # Total Absolute Neuts Lymphocytes # (Manual) Prolymphocyte # Reactive Lymphs # Total Abs Lymphocytes Monocytes # (Manual) Eosinophils # (Manual) Basophils # (Manual) Metamyelocytes # (Man) Myelocytes # (Manual) Promyelocytes # (Man) Blast Cells # (Man) Plasma Cell # (Manual) Other Cells # Nucleated RBCs # (Man) Hypersegmented Neuts Hyposegmented Neuts Hypogranular Neuts Large Granular Lymphs # Lrg Granular Lymphs Hairy Cells Smudge Cells Toxic Granulation Toxic Vacuolation Dohle Bodies Didier Rods Hypogranular Platelets Clumped Platelets Giant Platelets Platelet Satelliting RBC Morphology Polychromasia Hypochromasia Poikilocytosis Basophilic Stippling Anisocytosis Microcytosis Macrocytosis Spherocytes Pappenheimer Bodies Sickle Cells Target Cells Tear Drop Cells Ovalocytes Stomatocytes [place] Bodies Echinocytes Acanthocytes (Spur) Rouleaux RBC Agglutinates Schistocytes RBC Morph Comment Sezary Cell Sodium (136-145) mmol/L Potassium (3.5-5.1) mmol/L Chloride (98-107) mmol/L Carbon Dioxide (21-32) mmol/L Anion Gap (3-11) BUN (7-18) mg/dl Creatinine (0.6-1.4) mg/dl Est Cr Clr Drug Dosing ml/min Est GFR ( Amer) Est GFR (Non-Af Amer) BUN/Creatinine Ratio (10-20) Glucose (70-99) mg/dl POC Glucose 76 (70-99) Estimat Average Glucose 169 mg/dl Hemoglobin A1c 7.5 H (4.5-5.6) % Calcium (8.5-10.1) mg/dl Magnesium (1.8-2.4) mg/dl Vancomycin Trough (See Comment) mcg/ml _ (1) Testicular cancer Descendance of testis: descended Laterality: left Qualified Code(s): C62.12 - Malignant neoplasm of descended left testis (2) Diabetes Chronic kidney disease stage: Diabetes mellitus complication detail: without coma Diabetes mellitus complication status: with hypoglycemia Diabetes mellitus dedicated intermodal truck driver insulin use: Diabetes mellitus macular edema: Diabetes mellitus type: type 1 Diabetic retinopathy severity: Laterality: Proliferative retinopathy type: Qualified Code(s): E10.649 - Type 1 diabetes mellitus with hypoglycemia without coma
[2018-08-27] MEDS: MoRPHine SULFATE CR 60 MG TABCR PO SCH (19:32)
[2018-08-27] MEDS: VANCOMYCIN HCL 1,000 MG in SODIUM CHLORIDE 0.9% 250 ML IV SCH (19:32)
[2018-08-27] MEDS: LORazepam 0.5 MG/1 ML VIAL IV PRN (19:33)
[2018-08-28] MEDS: ACETAMINOPHEN 325 MG TAB PO PRN ×2 (01:49→22:34)
[2018-08-28] MEDS: DEXAMETHASONE CONC 3.75 MG, NYSTATIN 30 ML, DiphenhydrAMINE Syrup 300 MG, ORA-SWEET SYR... PO SCH ×6 (01:49→20:51)
[2018-08-28] MEDS: SOD CHLOR IV SCH ×3 (03:43→20:47)
[2018-08-28] MEDS: DEXTROSE 10% IV SCH ×3 (03:43→20:47)
[2018-08-28] MEDS: POTASSIUM CHLORIDE IV SCH ×3 (03:43→20:47)
[2018-08-28 06:39] LABS: BUN Creatinine Ratio 30.1 (10-20); Calcium 7.5 mg/dl (8.5-10.1); Creatinine Clr Calc Pharmacy 117.9 ml/min; Est GFR (African American) 115.7; Est GFR (Non-African American) 99.8; Magnesium 1.9 mg/dl (1.8-2.4); Potassium 2.5 mmol/L (3.5-5.1)
[2018-08-28 06:45] LABS: Hematocrit (blood only) 23.7 % (42-52); Hemoglobin 7.9 g/dL (14.0-18.0); Mean Corpuscular Hgb Conc 33.3 g/dL (32-36); Mean Corpuscular Volume 73.1 fL (80-100); Platelet Count 6 K/uL (130-400); RDW Coefficient of Variation 16.7 % (11.5-14.5); RDW Standard Deviation 45.3 fL (36.4-46.3); Red Blood Count 3.24 M/uL (4.7-6.1)
[2018-08-28] MEDS: INSULIN ASPART 100 UNITS/ML 3 ML PEN SC SCH ×4 (07:56→20:50)
[2018-08-28] MEDS: [UNRECOGNIZED DRUG - REMARK] SCH ×4 (07:56→20:51)
[2018-08-28] MEDS: PIPERACILLIN/TAZOBACTAM 3.375 GM in DEXTROSE 5% 100 ML IV SCH ×2 (07:58→16:50)
[2018-08-28] MEDS: CITALOPRAM 20 MG TAB PO SCH (08:00)
[2018-08-28] MEDS: FAMOTIDINE 20 MG TAB PO SCH ×2 (08:00→20:50)
[2018-08-28] MEDS: NYSTATIN SUSP 500,000 U/5 ML UDC PO SCH ×4 (08:01→20:46)
[2018-08-28] MEDS: MoRPHine SULFATE CR 60 MG TABCR PO SCH (08:01)
[2018-08-28] MEDS: CASPOFUNGIN 50 MG in SODIUM CHLORIDE 0.9% 250 ML IV SCH (08:01)
[2018-08-28] MEDS: NICOTINE 21 MG/24 HR TDSY TD SCH (08:01)
[2018-08-28] MEDS: INSULIN GLARGINE SOLOSTAR 100 UNITS/ML 3 ML PEN SC SCH (08:02)
[2018-08-28] MEDS: DRONABINOL 2.5 MG CAP PO SCH ×2 (08:06→20:46)
[2018-08-28] MEDS ORDERED: POTASSIUM CHLORIDE 20 MEQ TABCR PO STA (08:26)
[2018-08-28] MEDS ORDERED: MAGNESIUM SULFATE / D5W 1 GM/100 ML BAG IV ONE (08:27)
[2018-08-28] MEDS ORDERED: FILGRASTIM 300 MCG/ML VIAL SQ ONE (08:29)
[2018-08-28] MEDS: POTASSIUM CHLORIDE / WTR 20 MEQ/100 ML PLCT IV SCH ×5 (09:15→21:53)
--- NOTE | 2018-08-28 10:42 | Hospitalist Progress Note ---
Date of Service August 28, 2018 Assessment & Plan (1) Testicular cancer: Advanced, metastatic, aggressive. 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 Then was apparently lost to follow up for 5 months and returned in the last month for worsening abd pain and distension -has abdominal carcinomatosis, thoracic mediastinal adenopathy -poor prognosis Dr. Cruz fears he will not survive long enough to see if chemotherapy working completed a cycle of chemotherapy on 08/21, no further chemo planned until September now has complications with neutropenia, pneumonia, pancytopenia, hypoxia ( resolved) patient wishes to continue treatment, remain level 1 unless he is determined to be in a vegetative state as per his Advanced directive Continues with excessive sedation secondary to opioids -decrease MS Contin again to 30mg po q12h -Have since discontinued IV Dilaudid -Discontinue IV Lorazepam for as needed use -continue oxycodone 5mg but decrease frequency to every 6 hours prn breakthrough pain -Continue Marinol 2.5mg po bid for appetite stimulation, nausea-seems to be helping -Appreciate [facility]alla[facility] Care and Oncology consultations -awaiting counts to recover as below -Now the patient is fianc are discussing whether to transfer care to [facility] so he can stay with his fiancs parents in a more supportive home environment (2) Abdominal distention: due to large tumor, abdominal wall edema, malignant ascites had paracentesis on 08/22 with 5L removed, tolerated well . No studies were sent on fluid -continues to feel better but remains with abd distension that seems to be worsening today -follow to see if needs repeat tap, however with severe thrombocytopenia will hold off again for today (3) Pancytopenia due to antineoplastic chemotherapy: As per "Anemia" and "Neutropenia" diagnoses [place] may not be for a few more days as he had a delay in getting his entire regimen of chemo WBC count starting to come up and has had daily Neupogen Platelets down to 6000 today-transfuse with 1 unit platelets Hemoglobin down to 7.9 today-transfuse with 2 units PRBCs -follow CBC (4) Neutropenia: WBC increased slightly today to 0.1, ANC presumably 0 no fever received Neulasta over the weekend Received Neupogen 300mcg daily since 08/25 -Continue Neupogen dose daily until WBC improves and neutropenia resolved -follow CBC (5) Acute respiratory failure with hypoxia: Had labored breathing and hypoxia on 08/25 Found to have bibasilar pneumonia on CTA Chest, no PE (checked due to tachycardia, chest pain and high risk for clot given malignancy) Also anemia contributing Now s/p PRBCs and IV lasix, improved O2 requirement now resolved -continue treatment of HCAP as below - patient wants to remain a level one, would want intubated if needed (6) Hospital acquired PNA: bibasilar ground glass opacities seen on CT chest 08/25 when had worsening hypoxia was seen on CXR 08/25 as well has a mild cough, not very productive Improved clinically the last few days -continue broad spectrum antibiotics due to neutropenia as well as treatment for Gram negative PNA and coverage for MRSA PNA -continue Vancomcyin, Zosyn, Levaquin day #4 -continue Caspofungin for antifungal coverage as per Oncology recommendation - day #2 (7) CKD (chronic kidney disease) stage 2, GFR 60-89 ml/min: Cr stable at 1.03 Improved oral intake today -continue D10NS with KCl 20meq for now -follow BMP (8) Hyponatremia: This is been a persistent problem for the patient in the past usually has no untoward symptoms Na+ stable today at 130 -follow BMP (9) Anemia: due to bone marrow suppression with recent chemotherapy Hb 7.0 and was transfused on 08/25 2 units PRBCs and came up to 8.3 Hgb now down to 7.9-transfused 2 units PRBCs as above -follow CBC in AM (10) Urinary retention: previously secondary to tumor burden and significant scrotal and penile edema and was self-cathing, now resolved (11) Diabetes: pharmacy on board for glycemic management patient having issues with hypoglycemia due to poor intake, required glucagon on 08/26. Improving today with increased po intake Acidosis improving and was secondary to insulin deficiency which is now resolved -Continue D10 in IVFs -continue Lantus 5 units daily -continue to monitor closely for hypoglycemia -follow BMP (12) Abdominal pain: Secondary to metastatic disease and malignant ascites -Palliative Care following -continue MS Contin but lowered dose to 30mg po q12 -continue oxycodone prn breakthrough pain -paracentesis as needed but hold off given severe thrombocytopenia (13) Hypokalemia: Profoundly low today, unclear reason except for previous Lasix use and poor p.o. intake. Replace phosphorus and magnesium as well today -Repeat BMP this afternoon still with low potassium -Replaced with potassium chloride another 40 mEq IV, plus the 60 IV he got this morning plus potassium phosphate 15 mmol -Follow BMP, magnesium, phosphorus in the morning (14) Hypophosphatemia: Replace with potassium phosphate -Follow-up phosphorus level in the morning (15) DVT prophylaxis: Lovenox on hold for thrombocytopenia Dispo-remain on tele given tenuous state Difficult social issues, patient's fiance is at bedside all the time patient's mother is alcoholic, father has strained relationship, Pt has completed the HCPOA paperwork and designated his Fiance' Ashlie, to be his primary decision maker-patient and fianc ask that his parents not be made aware of this decision for her to be the healthcare power of commonwealth attorney as they will be very upset and will cause the patient a lot more anxiety service excellence was involved in witnessing the paperwork FULL CODE Palliative Care following Subjective Patient received lorazepam overnight after having an anxiety attack after speaking to his mother on the phone. His fiance at the bedside reports that anytime the patient talks to his mom, he has severe anxiety, however not speaking to her is not an option and would make the situation worse. He has been very sedated all this morning and was not given his MS Contin because of it. He denies abdominal pain and is very drowsy when I spoke to him. His appetite is improved and he is trying to eat a breakfast sandwich while falling asleep while talking to him. He denies chest pain or shortness of breath. He has had no evidence of bleeding from anywhere. He is having several loose stools per day. I discussed the case with palliative care and his primary oncologist today. Telemetry with normal sinus rhythm with rates in the 80s-90s Review of Systems All systems reviewed & are unremarkable except as noted in HPI & below Physical Exam 2 Vital Signs (Past 24 Hours): Last Vital Signs Temp 36.4 C L 08/28/18 10:23 Pulse 85 08/28/18 10:23 Resp 14 08/28/18 10:23 BP 119/71 08/28/18 10:23 Pulse Ox 96 08/28/18 10:23 Constitutional: + cachectic; no acute distress (Drowsy) Eyes: PERRL, conjunctivae normal, anicteric sclerae ENMT: Ears: no hearing impairment Mouth: + oral mucosal abnormality ( tongue with white plaques) Neck: trachea midline, no thyromegaly Respiratory: normal respiratory effort, lungs clear to auscultation normal respiratory effort; no respiratory distress and no labored breathing Auscultation: + crackles (at left base, otherwise clear); no wheezes Cardiovascular: RRR, no murmur, no edema Rate/Rhythm: regular rate and regular rhythm Heart Sounds: no murmur Extremities: + edema (2+ pitting edema to the thighs; +scrotal and penile edema -improved from previous as per fiance) Gastrointestinal (Abdomen): normal bowel sounds, soft, nontender, no hepatosplenomegaly Inspection/Auscultation: + abdomen distended and normal bowel sounds; + abdomen abnormal to inspection Percussion/Palpation: + abdominal mass; + abnormal to percussion (palpable masses) Musculoskeletal: Extremities: extremities normal to inspection; no cyanosis and no clubbing Skin: no rashes, warm and dry Neurologic: moves all extremities and awake; no focal motor deficits Psychiatric: A+Ox3, euthymic affect Orientation: alert (but drowsy at times ) Results & Data Laboratory Results 08/28/18 08/28/18 08/28/18 Range/Units 16:17 15:47 11:43 WBC (4.8-10.8) K/uL RBC (4.7-6.1) M/uL Hgb (14.0-18.0) g/dL Hct (42-52) % MCV (80-100) fL MCH (25-34) pg MCHC (32-36) g/dL RDW Std Deviation (36.4-46.3) fL RDW Coeff of Zuleima (11.5-14.5) % Plt Count (130-400) K/uL Immature Gran % (Auto) Neut % (Auto) Lymph % (Auto) [place] % (Auto) Eos % (Auto) Baso % (Auto) Immature Gran # (Auto) Neut # (Auto) Lymph # (Auto) [place] # (Auto) Eos # (Auto) Baso # (Auto) Neutrophils % (Manual) Band Neutrophils % Lymphocytes % (Manual) Prolymphocyte % Reactive Lymphs % (Man) Monocytes % (Manual) Eosinophils % (Manual) Basophils % (Manual) Metamyelocytes % (Man) Myelocytes % (Man) Promyelocytes % (Man) Blast Cells % (Manual) Plasma Cell % (Manual) Other Cells % Nucleated RBC % Neutrophils # (Manual) Band Neutrophils # Total Absolute Neuts Lymphocytes # (Manual) Prolymphocyte # Reactive Lymphs # Total Abs Lymphocytes Monocytes # (Manual) Eosinophils # (Manual) Basophils # (Manual) Metamyelocytes # (Man) Myelocytes # (Manual) Promyelocytes # (Man) Blast Cells # (Man) Plasma Cell # (Manual) Other Cells # Nucleated RBCs # (Man) Hypersegmented Neuts Hyposegmented Neuts Hypogranular Neuts Large Granular Lymphs # Lrg Granular Lymphs Hairy Cells Smudge Cells Toxic Granulation Toxic Vacuolation Dohle Bodies Didier Rods Hypogranular Platelets Clumped Platelets Giant Platelets Platelet Satelliting RBC Morphology Polychromasia Hypochromasia Poikilocytosis Basophilic Stippling Anisocytosis Microcytosis Macrocytosis Spherocytes Pappenheimer Bodies Sickle Cells Target Cells Tear Drop Cells Ovalocytes Stomatocytes [place] Bodies Echinocytes Acanthocytes (Spur) Rouleaux RBC Agglutinates Schistocytes RBC Morph Comment Sezary Cell Sodium 131 L (136-145) mmol/L Potassium 2.6 L (3.5-5.1) mmol/L Chloride 101 (98-107) mmol/L Carbon Dioxide 21 (21-32) mmol/L Anion Gap 9.0 (3-11) BUN 30 H (7-18) mg/dl Creatinine 0.90 (0.6-1.4) mg/dl Est Cr Clr Drug Dosing 131.6 ml/min Est GFR ( Amer) 136.1 Est GFR (Non-Af Amer) 117.5 BUN/Creatinine Ratio 33.2 H (10-20) Glucose 66 L (70-99) mg/dl POC Glucose 97 (70-99) Calcium 7.8 L (8.5-10.1) mg/dl Phosphorus 2.1 L (2.5-4.9) mg/dl Magnesium (1.8-2.4) mg/dl Nasal Screen MRSA (PCR) Negative (Negative) Vancomycin Trough (See Comment) mcg/ml Blood Type Antibody Screen Crossmatch 08/28/18 08/28/18 08/28/18 Range/Units 11:42 10:55 08:34 WBC (4.8-10.8) K/uL RBC (4.7-6.1) M/uL Hgb (14.0-18.0) g/dL Hct (42-52) % MCV (80-100) fL MCH (25-34) pg MCHC (32-36) g/dL RDW Std Deviation (36.4-46.3) fL RDW Coeff of Zuleima (11.5-14.5) % Plt Count (130-400) K/uL Immature Gran % (Auto) Neut % (Auto) Lymph % (Auto) [place] % (Auto) Eos % (Auto) Baso % (Auto) Immature Gran # (Auto) Neut # (Auto) Lymph # (Auto) [place] # (Auto) Eos # (Auto) Baso # (Auto) Neutrophils % (Manual) Band Neutrophils % Lymphocytes % (Manual) Prolymphocyte % Reactive Lymphs % (Man) Monocytes % (Manual) Eosinophils % (Manual) Basophils % (Manual) Metamyelocytes % (Man) Myelocytes % (Man) Promyelocytes % (Man) Blast Cells % (Manual) Plasma Cell % (Manual) Other Cells % Nucleated RBC % Neutrophils # (Manual) Band Neutrophils # Total Absolute Neuts Lymphocytes # (Manual) Prolymphocyte # Reactive Lymphs # Total Abs Lymphocytes Monocytes # (Manual) Eosinophils # (Manual) Basophils # (Manual) Metamyelocytes # (Man) Myelocytes # (Manual) Promyelocytes # (Man) Blast Cells # (Man) Plasma Cell # (Manual) Other Cells # Nucleated RBCs # (Man) Hypersegmented Neuts Hyposegmented Neuts Hypogranular Neuts Large Granular Lymphs # Lrg Granular Lymphs Hairy Cells Smudge Cells Toxic Granulation Toxic Vacuolation Dohle Bodies Didier Rods Hypogranular Platelets Clumped Platelets Giant Platelets Platelet Satelliting RBC Morphology Polychromasia Hypochromasia Poikilocytosis Basophilic Stippling Anisocytosis Microcytosis Macrocytosis Spherocytes Pappenheimer Bodies Sickle Cells Target Cells Tear Drop Cells Ovalocytes Stomatocytes [place] Bodies Echinocytes Acanthocytes (Spur) Rouleaux RBC Agglutinates Schistocytes RBC Morph Comment Sezary Cell Sodium (136-145) mmol/L Potassium (3.5-5.1) mmol/L Chloride (98-107) mmol/L Carbon Dioxide (21-32) mmol/L Anion Gap (3-11) BUN (7-18) mg/dl Creatinine (0.6-1.4) mg/dl Est Cr Clr Drug Dosing ml/min Est GFR ( Amer) Est GFR (Non-Af Amer) BUN/Creatinine Ratio (10-20) Glucose (70-99) mg/dl POC Glucose 144 H (70-99) Calcium (8.5-10.1) mg/dl Phosphorus (2.5-4.9) mg/dl Magnesium (1.8-2.4) mg/dl Nasal Screen MRSA (PCR) (Negative) Vancomycin Trough 14.6 (See Comment) mcg/ml Blood Type O Negative Antibody Screen NEGATIVE Crossmatch See Detail 08/28/18 08/28/18 08/28/18 Range/Units 07:39 05:57 05:57 WBC 0.10 L* (4.8-10.8) K/uL RBC 3.24 L (4.7-6.1) M/uL Hgb 7.9 L (14.0-18.0) g/dL Hct 23.7 L (42-52) % MCV 73.1 L (80-100) fL MCH 24.4 L (25-34) pg MCHC 33.3 (32-36) g/dL RDW Std Deviation 45.3 (36.4-46.3) fL RDW Coeff of Zuleima 16.7 H (11.5-14.5) % Plt Count 6 L* D (130-400) K/uL Immature Gran % (Auto) Cancelled Neut % (Auto) Cancelled Lymph % (Auto) Cancelled [place] % (Auto) Cancelled Eos % (Auto) Cancelled Baso % (Auto) Cancelled Immature Gran # (Auto) Cancelled Neut # (Auto) Cancelled Lymph # (Auto) Cancelled [place] # (Auto) Cancelled Eos # (Auto) Cancelled Baso # (Auto) Cancelled Neutrophils % (Manual) Cancelled Band Neutrophils % Cancelled Lymphocytes % (Manual) Cancelled Prolymphocyte % Cancelled Reactive Lymphs % (Man) Cancelled Monocytes % (Manual) Cancelled Eosinophils % (Manual) Cancelled Basophils % (Manual) Cancelled Metamyelocytes % (Man) Cancelled Myelocytes % (Man) Cancelled Promyelocytes % (Man) Cancelled Blast Cells % (Manual) Cancelled Plasma Cell % (Manual) Cancelled Other Cells % Cancelled Nucleated RBC % Cancelled Neutrophils # (Manual) Cancelled Band Neutrophils # Cancelled Total Absolute Neuts Cancelled Lymphocytes # (Manual) Cancelled Prolymphocyte # Cancelled Reactive Lymphs # Cancelled Total Abs Lymphocytes Cancelled Monocytes # (Manual) Cancelled Eosinophils # (Manual) Cancelled Basophils # (Manual) Cancelled Metamyelocytes # (Man) Cancelled Myelocytes # (Manual) Cancelled Promyelocytes # (Man) Cancelled Blast Cells # (Man) Cancelled Plasma Cell # (Manual) Cancelled Other Cells # Cancelled Nucleated RBCs # (Man) Cancelled Hypersegmented Neuts Cancelled Hyposegmented Neuts Cancelled Hypogranular Neuts Cancelled Large Granular Lymphs Cancelled # Lrg Granular Lymphs Cancelled Hairy Cells Cancelled Smudge Cells Cancelled Toxic Granulation Cancelled Toxic Vacuolation Cancelled Dohle Bodies Cancelled Didier Rods Cancelled Hypogranular Platelets Cancelled Clumped Platelets Cancelled Giant Platelets Cancelled Platelet Satelliting Cancelled RBC Morphology Cancelled Polychromasia Cancelled Hypochromasia Cancelled Poikilocytosis Cancelled Basophilic Stippling Cancelled Anisocytosis Cancelled Microcytosis Cancelled Macrocytosis Cancelled Spherocytes Cancelled Pappenheimer Bodies Cancelled Sickle Cells Cancelled Target Cells Cancelled Tear Drop Cells Cancelled Ovalocytes Cancelled Stomatocytes Cancelled [place] Bodies Cancelled Echinocytes Cancelled Acanthocytes (Spur) Cancelled Rouleaux Cancelled RBC Agglutinates Cancelled Schistocytes Cancelled RBC Morph Comment Cancelled Sezary Cell Cancelled Sodium 130 L (136-145) mmol/L Potassium 2.5 L* (3.5-5.1) mmol/L Chloride 99 (98-107) mmol/L Carbon Dioxide 21 (21-32) mmol/L Anion Gap 11.0 (3-11) BUN 31 H (7-18) mg/dl Creatinine 1.03 (0.6-1.4) mg/dl Est Cr Clr Drug Dosing 117.9 ml/min Est GFR ( Amer) 115.7 Est GFR (Non-Af Amer) 99.8 BUN/Creatinine Ratio 30.1 H (10-20) Glucose 118 H (70-99) mg/dl POC Glucose 122 H (70-99) Calcium 7.5 L (8.5-10.1) mg/dl Phosphorus (2.5-4.9) mg/dl Magnesium 1.9 (1.8-2.4) mg/dl Nasal Screen MRSA (PCR) (Negative) Vancomycin Trough (See Comment) mcg/ml Blood Type Antibody Screen Crossmatch 08/27/18 Range/Units 20:34 WBC (4.8-10.8) K/uL RBC (4.7-6.1) M/uL Hgb (14.0-18.0) g/dL Hct (42-52) % MCV (80-100) fL MCH (25-34) pg MCHC (32-36) g/dL RDW Std Deviation (36.4-46.3) fL RDW Coeff of Zuleima (11.5-14.5) % Plt Count (130-400) K/uL Immature Gran % (Auto) Neut % (Auto) Lymph % (Auto) [place] % (Auto) Eos % (Auto) Baso % (Auto) Immature Gran # (Auto) Neut # (Auto) Lymph # (Auto) [place] # (Auto) Eos # (Auto) Baso # (Auto) Neutrophils % (Manual) Band Neutrophils % Lymphocytes % (Manual) Prolymphocyte % Reactive Lymphs % (Man) Monocytes % (Manual) Eosinophils % (Manual) Basophils % (Manual) Metamyelocytes % (Man) Myelocytes % (Man) Promyelocytes % (Man) Blast Cells % (Manual) Plasma Cell % (Manual) Other Cells % Nucleated RBC % Neutrophils # (Manual) Band Neutrophils # Total Absolute Neuts Lymphocytes # (Manual) Prolymphocyte # Reactive Lymphs # Total Abs Lymphocytes Monocytes # (Manual) Eosinophils # (Manual) Basophils # (Manual) Metamyelocytes # (Man) Myelocytes # (Manual) Promyelocytes # (Man) Blast Cells # (Man) Plasma Cell # (Manual) Other Cells # Nucleated RBCs # (Man) Hypersegmented Neuts Hyposegmented Neuts Hypogranular Neuts Large Granular Lymphs # Lrg Granular Lymphs Hairy Cells Smudge Cells Toxic Granulation Toxic Vacuolation Dohle Bodies Didier Rods Hypogranular Platelets Clumped Platelets Giant Platelets Platelet Satelliting RBC Morphology Polychromasia Hypochromasia Poikilocytosis Basophilic Stippling Anisocytosis Microcytosis Macrocytosis Spherocytes Pappenheimer Bodies Sickle Cells Target Cells Tear Drop Cells Ovalocytes Stomatocytes [place] Bodies Echinocytes Acanthocytes (Spur) Rouleaux RBC Agglutinates Schistocytes RBC Morph Comment Sezary Cell Sodium (136-145) mmol/L Potassium (3.5-5.1) mmol/L Chloride (98-107) mmol/L Carbon Dioxide (21-32) mmol/L Anion Gap (3-11) BUN (7-18) mg/dl Creatinine (0.6-1.4) mg/dl Est Cr Clr Drug Dosing ml/min Est GFR ( Amer) Est GFR (Non-Af Amer) BUN/Creatinine Ratio (10-20) Glucose (70-99) mg/dl POC Glucose 160 H (70-99) Calcium (8.5-10.1) mg/dl Phosphorus (2.5-4.9) mg/dl Magnesium (1.8-2.4) mg/dl Nasal Screen MRSA (PCR) (Negative) Vancomycin Trough (See Comment) mcg/ml Blood Type Antibody Screen Crossmatch _ (1) Testicular cancer Descendance of testis: descended Laterality: left Qualified Code(s): C62.12 - Malignant neoplasm of descended left testis (2) Diabetes Chronic kidney disease stage: Diabetes mellitus complication detail: without coma Diabetes mellitus complication status: with hypoglycemia Diabetes mellitus assisted insulin use: Diabetes mellitus macular edema: Diabetes mellitus type: type 1 Diabetic retinopathy severity: Laterality: Proliferative retinopathy type: Qualified Code(s): E10.649 - Type 1 diabetes mellitus with hypoglycemia without coma
[2018-08-28] MEDS: LEVOFLOXACIN/D5W 750 MG/150 ML BAG IV SCH (10:58)
[2018-08-28] MEDS ORDERED: VANCOMYCIN TROUGH ONE (11:30)
[2018-08-28] MEDS: VANCOMYCIN HCL 1,000 MG in SODIUM CHLORIDE 0.9% 250 ML IV SCH (12:44)
--- NOTE | 2018-08-28 13:20 | Pharmacy Report ---
Pharmacy Abx Dose Short Note - Date of Service August 28, 2018 - Assessment & Plan Assessment * 28 year old M with metastatic testicular cancer (immunosuppressed from chemotherapy with severe neutropenia but no fever) being treated for HAP * Broad-spectrum antimicrobials include Zosyn, levofloxacin, vancomycin, and caspofungin * SCr very slightly trending down - not likely to be clinically significant change Vancomycin * Goal trough 15-20 mcg/mL * Trough of 14.6 mcg/mL is very slightly subtherapeutic * Unclear if level will trend up or down as this is only the 2nd dose after recent dose decrease (and longer interval between dose changes). Will therefore repeat level prior to next dose to ensure level does not trend down Plan * Continue vancomycin 1000 mg IV q16h * Repeat trough 08/29 @ 0330 Pharmacy will continue to follow and will adjust dose/frequency as necessary. Thank you.
--- NOTE | 2018-08-28 13:38 | Palliative Care Progress Note ---
Date of Service August 28, 2018 Assessment & Plan (1) Palliative care encounter: Patient is a 28-year-old male with metastatic testicular cancer diagnosed in June 2017. 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 Patient's alpha-fetoprotein remained elevated after resection-in August 2017 CT scan showed large retroperitoneal mass involving the left ureter and aorta. Patient underwent chemo from September through December-on 01/29 he underwent surgical resection of the mass-fianc reports that they were told it was removed completely. Patient was lost to follow-up until this August when he presented with an enlarged abdomen and lower extremity edema. CT scan done on 07/23 showed mediastinal adenopathy as well as paratracheal, avascular necrosis of the left hip, right kidney infarct with scarring, large multiple masses in the omentum and mesentery, pelvic mass 8.5 cm, a 2.3 cm left inguinal mass and lesions abutting the liver. Patient's market abdominal distention was evaluated by ultrasound on 08/13-this showed trace ascites. CT scan performed on 08/22 showed large amount of ascites-patient underwent paracentesis for 5 L of fluid. . Patient now with pancytopenia related to chemo-requiring broad- spectrum antibiotics and antifungals, abdominal distention increasing. OxyContin dose decreased due to increased somnolence - Patient's pain appears well-controlled - Has not required as needed oxycodone since 08/27 at 1742. Patient has signed paperwork naming his fiance as his POA-fianc has asked that his parents not be informed of this change. Patient will need to decide where he wishes to live and continue chemotherapy-either at home with his parents or in the [place] area with his anns family. There is significant family dynamics affecting patient's decision. -CODE STATUS is currently a FULL CODE. -Neutropenia-continue broad-spectrum IV antibiotic/Antifungal coverage (2) Abdominal pain: Due to advanced metastatic disease-patient on MS Contin 30 mg Q 12h with adequate pain control-has not required any PRN oxycodone in the past 20 hours - Concerned that pain may increase with increased abdominal distention-we will need to monitor closely (3) Testicular cancer: -Patient receiving aggressive chemo-plan is to continue with aggressive chemo and aggressive treatment of his bilateral basilar infiltrate - Scrotal edema markedly decreased (4) Abdominal distention: -Status post paracentesis of 5 L-Now abdominal distention increasing, Unable to tap due to low platelets (5) Anxiety: - Continue as needed Xanax at decreased dose of 0.25 mg every 12 hours as needed Due to increased somnolence (6) Urinary retention: Patient voiding well -Coates catheter removed Subjective Patient's fianc at bedside. Patient somnolent-will awaken briefly-Denies pain on exam. Patient continues to be pancytopenic, white count 0.1, hemoglobin 7.9, platelets 6K, Sodium 130, K2.5, BUN 31, creatinine 1.03 Patient now on MS Contin 30 mg every 12, patient has not required any as needed oxycodone since 1741 on 08/27. Complete ROS limited due to patient's somnolence Physical Exam 2 Vital Signs (Past 24 Hours): Last Vital Signs Temp 36.4 C L 08/28/18 11:31 Pulse 93 H 08/28/18 11:31 Resp 19 08/28/18 11:00 BP 112/73 08/28/18 11:31 Pulse Ox 95 08/28/18 11:31 Constitutional: NAD, appears comfortable Eyes: EOMI Respiratory: Unlabored Cardiovascular: Regular rate, lower extremity edema improved Gastrointestinal (Abdomen): Abdomen more distended, no pain elicited with light palpation Musculoskeletal: Generalized weakness, still able to ambulate Skin: No new bruising noted Neurologic: Somnolent Psychiatric: Patient less anxious when out of His home settingHis home setting Time Spent Attending Total time spent 35 minutes with greater than 50% of the time spent at bedside as well as on the unit collaborating with attending physician. _ (1) Abdominal pain Abdominal location: generalized Qualified Code(s): R10.84 - Generalized abdominal pain (2) Testicular cancer Descendance of testis: descended Laterality: left Qualified Code(s): C62.12 - Malignant neoplasm of descended left testis
[2018-08-28] MEDS: ALPRAZolam 0.25 MG TABLET PO PRN (14:49)
[2018-08-28 16:11] LABS: BUN Creatinine Ratio 33.2 (10-20); Calcium 7.8 mg/dl (8.5-10.1); Creatinine Clr Calc Pharmacy 131.6 ml/min; Est GFR (African American) 136.1; Est GFR (Non-African American) 117.5; Potassium 2.6 mmol/L (3.5-5.1)
[2018-08-28 16:12] LABS: Phosphorus 2.1 mg/dl (2.5-4.9)
[2018-08-28] MEDS: OXYCODONE HCL IR 5 MG TAB (IMMEDIATE RELEASE) PO PRN (18:19)
[2018-08-28] MEDS ORDERED: POTASSIUM PHOS 3 MMOL/1 ML INFUSION IV STA (18:53)
[2018-08-28] MEDS ORDERED: OXYCODONE HCL IR 5 MG TAB (IMMEDIATE RELEASE) PO PRN (19:06)
[2018-08-28] MEDS: MoRPHine SULFATE CR 15 MG TABCR PO SCH (19:14)
[2018-08-28] MEDS ORDERED: POTASSIUM PHOSPHATE 15 MMOL in SODIUM CHLORIDE 0.9% 250 ML IV ONE (19:15)
[2018-08-28] MEDS ORDERED: FUROSEMIDE 20 MG in SYRINGE 0 ML IV ONE (19:17)
[2018-08-28] MEDS ORDERED: HYDROmorphone INJ 0.5 MG/0.5 ML SYR IV STA (19:19)
[2018-08-28] MEDS ORDERED: Nursing to Pharmacy Communication ONE (20:04)
[2018-08-29] MEDS: PIPERACILLIN/TAZOBACTAM 3.375 GM in DEXTROSE 5% 100 ML IV SCH ×4 (00:10→23:43)
[2018-08-29] MEDS: DEXAMETHASONE CONC 3.75 MG, NYSTATIN 30 ML, DiphenhydrAMINE Syrup 300 MG, ORA-SWEET SYR... PO SCH ×7 (01:58→23:44)
[2018-08-29] MEDS ORDERED: INSULIN ASPART 100 UNITS/ML 3 ML PEN SC SCH (02:00)
[2018-08-29 04:13] LABS: BUN Creatinine Ratio 30.1 (10-20); Calcium 7.5 mg/dl (8.5-10.1); Est GFR (African American) 129.2; Est GFR (Non-African American) 111.5; Magnesium 1.8 mg/dl (1.8-2.4); Phosphorus 1.9 mg/dl (2.5-4.9); Potassium 2.5 mmol/L (3.5-5.1)
[2018-08-29 04:22] LABS: Hematocrit (blood only) 28.5 % (42-52); Hemoglobin 9.8 g/dL (14.0-18.0); Mean Corpuscular Hgb Conc 34.4 g/dL (32-36); Mean Corpuscular Volume 74.6 fL (80-100); Platelet Count 6 K/uL (130-400); RDW Coefficient of Variation 16.7 % (11.5-14.5); RDW Standard Deviation 46.1 fL (36.4-46.3); Red Blood Count 3.82 M/uL (4.7-6.1); White Blood Count 0.29 K/uL (4.8-10.8)
[2018-08-29] MEDS: VANCOMYCIN HCL 1,000 MG in SODIUM CHLORIDE 0.9% 250 ML IV SCH ×2 (04:52→19:54)
[2018-08-29] MEDS: FAMOTIDINE 20 MG TAB PO SCH ×2 (07:50→21:44)
[2018-08-29] MEDS: CITALOPRAM 20 MG TAB PO SCH (07:50)
[2018-08-29] MEDS: NICOTINE 21 MG/24 HR TDSY TD SCH (07:51)
[2018-08-29] MEDS: NYSTATIN SUSP 500,000 U/5 ML UDC PO SCH ×4 (07:51→21:44)
[2018-08-29] MEDS ORDERED: POTASSIUM CHLORIDE 20 MEQ TABCR PO STA ×2 (07:58→19:07)
[2018-08-29] MEDS: MoRPHine SULFATE CR 15 MG TABCR PO SCH ×2 (07:58→19:32)
[2018-08-29] MEDS ORDERED: POTASSIUM PHOS 3 MMOL/1 ML INFUSION IV STA (07:59)
[2018-08-29] MEDS: INSULIN ASPART 100 UNITS/ML 3 ML PEN SC SCH ×4 (08:14→21:48)
[2018-08-29] MEDS: [UNRECOGNIZED DRUG - REMARK] SCH ×4 (08:15→21:49)
[2018-08-29] MEDS ORDERED: POTASSIUM PHOSPHATE 24 MMOL in SODIUM CHLORIDE 0.9% 500 ML IV ONE (09:30)
[2018-08-29] MEDS: INSULIN GLARGINE SOLOSTAR 100 UNITS/ML 3 ML PEN SC SCH (10:21)
[2018-08-29] MEDS: MAGNESIUM SULFATE / D5W 1 GM/100 ML BAG IV SCH ×2 (10:24→11:46)
[2018-08-29] MEDS: DRONABINOL 2.5 MG CAP PO SCH ×2 (10:24→21:59)
[2018-08-29] MEDS: POTASSIUM CHLORIDE / WTR 20 MEQ/100 ML PLCT IV SCH ×5 (10:24→21:46)
--- NOTE | 2018-08-29 10:28 | Progress Note ---
DATE: 08/29/2018 MEDICAL ONCOLOGY PROGRESS NOTE DIAGNOSES: 1. Acute respiratory failure with hypoxia. 2. Hospital-acquired pneumonia. 3. Electrolyte dysfunction (hypokalemia, hypophosphatemia). 4. Metastatic testicular cancer. 5. Pancytopenia, attributable to chemotherapeutic effect. SUBJECTIVE: Brett was seen and examined at bedside this morning. He is once again somnolent. He complains of pain; however, does not describe or isolate location. He remains very pancytopenic, platelet count 6000, should receive a platelet pheresis today. He has been receiving broad-spectrum antimicrobials and had asked the hospitalist service to add antifungal therapy, but apparently Dr. Cruz has opted not to pursue coverage. The patient was not terribly conversant and very little information extracted this morning. According to the hospitalist notes from yesterday, the patient is considering transfer to [place] to be closer to the fiancee's parents. Brett also made his norberte the medical power of insurance defense attorney. Nursing reports no overnight issues specifically. PHYSICAL EXAMINATION: GENERAL: Again, a somnolent 28-year-old gentleman in no acute distress. VITAL SIGNS: Temperature 36.6, pulse 88, respiratory rate 16, blood pressure 119/68. SKIN: Without rash or lesion. HEENT: Oral mucosa is dry, no evidence of thrush. NECK: Supple. Trachea midline. HEART: Regular rate and rhythm. LUNGS: Diminished breath sounds in the posterior bases. ABDOMEN: Distended, firm. Bowel sounds hypoactive. No rigidity or guarding. EXTREMITIES: 2+ peripheral edema bilaterally. NEUROLOGIC: Again, the patient is somnolent, but appears otherwise to be intact. LABORATORY DATA: WBC count 290, hemoglobin 9.8, platelet count 6000. Sodium 134, potassium 2.5, chloride 103, carbon dioxide 22, creatinine 0.94, BUN 28, calcium 7.5, phosphorus 1.9. IMPRESSION: 1. Pancytopenia due to combination chemotherapy. 2. Metastatic testicular cancer. 3. Abdominal distention. 4. Severe thrombocytopenia. 5. Electrolyte dysfunction (hypokalemia, hypophosphatemia). 6. Hospital-acquired pneumonia. PLAN: Brett is a pleasant 28-year-old unfortunate gentleman who is suffering from progressive metastatic testicular cancer. He completed a combination CIP recently and remains profoundly pancytopenic. He continues broad-spectrum antimicrobials and for the most part has been devoid of fever. His electrolytes are abnormal and perhaps K-Phos should be administered. Platelets need transfuse today as well. Dr. Cruz will take over service over the weekend and therefore will sign Mr. Leigh out to him. I will also advise him of Mr. Leigh's plan for possible transfer. Agree with continued medical management. Thank you for assisting us in the care of this very complex gentleman.
[2018-08-29] MEDS: POTASSIUM CHLORIDE IV SCH (10:38)
[2018-08-29] MEDS: SOD CHLOR IV SCH (10:38)
[2018-08-29] MEDS: DEXTROSE 10% IV SCH (10:38)
[2018-08-29] MEDS ORDERED: FILGRASTIM 300 MCG/ML VIAL SQ ONE (10:43)
--- NOTE | 2018-08-29 10:55 | Hospitalist Progress Note ---
Date of Service August 29, 2018 Assessment & Plan (1) Testicular cancer: Advanced, metastatic, aggressive. 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 Then was apparently lost to follow up for 5 months and returned in the last month for worsening abd pain and distension -has abdominal carcinomatosis, thoracic mediastinal adenopathy -poor prognosis Dr. Cruz fears he will not survive long enough to see if chemotherapy working He completed a cycle of chemotherapy on 08/21, no further chemo planned until September Now has complications with neutropenia, pneumonia, pancytopenia, hypoxia ( resolved), and malignant ascites Patient wishes to continue treatment, remain level 1 unless he is determined to be in a vegetative state as per his Advanced directive Had excessive sedation secondary to opioids which is now improved today -continue MS Contin 30mg po q12h -Have since discontinued IV Dilaudid and IV lorazepam due to excessive sedation -increase oxycodone to 10mg every 6 hours prn breakthrough pain -Continue Marinol 2.5mg po bid for appetite stimulation, nausea-is definitely helping -Appreciate Pallaitive Care and Oncology consultations -still awaiting counts to recover as below -Now the patient is fianc are discussing whether to transfer care to [facility] so he can stay with his fiancs parents in a more supportive home environment-still undecided (2) Abdominal distention: Due to large tumor, abdominal wall edema, malignant ascites Had paracentesis on 08/22 with 5L removed, tolerated well . No studies were sent on fluid -having some worsening abd distension and scrotal edema again and has received a LOT of IVFs between antibiotics, transfusions, and numerous electrolyte replacements, as well as from D10 required for persistent hypoglycemia -attempts to get additional platelets transfused in a timely fashion today so as to facilitate IR Paracentesis were not successful -will continue to diurese with IV lasix 20mg bid today to keep fluid off -consider IV albumin with lasix if needed-will check albumin level tomorrow -pain control as above (3) Pancytopenia due to antineoplastic chemotherapy: Unclear when his yesika will be as per Oncology as he had a delay in getting his entire regimen of chemo (he left AMA in the middle of his treatment) WBC count is continuing to come up with once daily Neupogen Platelets remain severely low at 6k today-transfused with 2 units platelets Hemoglobin back up to 9.3 with another 2 units PRBCs on 08/28 No evidence of bleeding -follow CBC -continue neutropenic precautions -will not be able to have paracentesis unfortunately -hold all blood thinning medications (4) Neutropenia: WBC increased slightly today to 0.4, ANC presumably 0 (no diff performed) no fever but did have hypothermia on evening of 08/28 requiring Claude Hugger received Neulasta x 1 dose on 08/23 Received Neupogen 300mcg daily since 08/25 -Continue Neupogen dose daily until WBC improves and neutropenia resolved -follow CBC (5) Acute respiratory failure with hypoxia: Had labored breathing and hypoxia on 08/25 Found to have bibasilar pneumonia on CTA Chest, no PE (checked due to tachycardia, chest pain and high risk for clot given malignancy) Also anemia contributing Did resolve with antibiotic treatment, s/p PRBCs and IV lasix, but now back on O2 again on 08/29 Repeat CXR 08/29 with worsening bibasilar opacities secondary to PNA, possible Pulm edema Sounds wet on exam -continue IV diuresis with Lasix 20mg IV bid today, reassess daily given hypotension at times and profound hypokalemia -continue treatment of HCAP as below - patient wants to remain a level one, would want intubated if needed -follow I/Os-were not accurately recorded x 3 days but now are, however weight is actually DOWN significantly from one week ago (6) Hospital acquired PNA: bibasilar ground glass opacities seen on CT chest 08/25 when had worsening hypoxia was seen on CXR 08/25 as well has a mild cough, not very productive Improved clinically the last few days -continue broad spectrum antibiotics due to severe neutropenia as well as treatment for Gram negative PNA and coverage for MRSA PNA -continue Vancomcyin, Zosyn, Levaquin day #5/7 -continue Caspofungin for antifungal coverage as per Oncology recommendation - day #3 (7) CKD (chronic kidney disease) stage 2, GFR 60-89 ml/min: Cr stable at 0.9 Improved oral intake since starting Marinol -continue D10NS with KCl 20meq for now -follow BMP (8) Hyponatremia: This is been a persistent problem for the patient in the past usually has no untoward symptoms Na+ improved today at 134 -follow BMP (9) Anemia: due to bone marrow suppression with recent chemotherapy Hb 7.0 and was transfused on 08/25 2 units PRBCs and came up to 8.3 Hgb down to 7.9 on 08/28-transfused 2 units PRBCs Now improved at 9.3 -follow CBC in AM (10) Urinary retention: previously secondary to tumor burden and significant scrotal and penile edema and was self-cathing, now resolved with diuresis (11) Diabetes: pharmacy on board for glycemic management patient having issues with hypoglycemia due to poor intake, required glucagon on 08/26. Improved today with increased po intake Acidosis resolved and was secondary to iatrogenic insulin deficiency (due to hypoglycemia) which is now resolved -Continue D10 in IVFs -continue Lantus 5 units daily -continue to monitor closely for hypoglycemia -follow BMP (12) Abdominal pain: Secondary to metastatic disease and malignant ascites -Palliative Care following -continue MS Contin 30mg po q12 with oxycodone 10mg q6h prn breakthrough pain -paracentesis as needed but hold off given severe thrombocytopenia-will need on Saturday if platelets improved (13) Hypokalemia: Persistently profoundly low, could be secondary to Lasix use and poor p.o. intake. Replaced phosphorus and magnesium as well today -replaced with IV KCl and po KCl today on multiple occasions -Follow BMP, magnesium, phosphorus in the morning (14) Hypophosphatemia: Replaced with potassium phosphate and is now improved -Follow-up phosphorus level in the morning (15) DVT prophylaxis: Lovenox on hold for thrombocytopenia Dispo-remain on tele given tenuous state and profound electrolyte abnormalities. Difficult social issues, patient's fiance is at bedside all the time patient's mother is alcoholic, father has strained relationship, his parents cause him severe anxiety, but he still wants them involved in his care Pt has completed the HCPOA paperwork and designated his Fiance' Ashlie, to be his primary decision maker (and father is secondary)-patient and ann ask that his parents not be made aware of this decision for her to be the healthcare power of tax attorney as they will be very upset and will cause the patient a lot more anxiety service excellence was involved in witnessing the paperwork FULL CODE-however pt does not want to be on life support if not likely that he will not recover or if in a prolonged vegetative state. Also would not want feeding tube as per his directive. Palliative Care following Expect he will be in the hospital for at least 3-5 more days until counts and electrolytes all recover Subjective I saw the pt multiple times today. This AM he was the most alert I have seen him in 4 days. He says he is not SOB but is back on O2 since this AM. He was having a lot of abdominal pain last night and required 1 dose IV dilaudid, but today is more comfortable. He is eating but does have some continued mouth pain. He is moving his bowels and it is loose, nonbloody. I attempted to get him a paracentesis today but there were not any platelets available other than the hospital's emergency supply in a timely fashion before the Radiologist had to leave for the day. Therefore, we will wait till Saturday to get a paracentesis. Pt reports abd pain is worse than previous days although he is also on a significantly lower amount of morphine. Plts low today and even after 1 unit of platelets, they remained at 7. He denies lightheadedness with standing. He does have anxiety and asks what he can take for this. His fiancee' at the bedside said that the pt's family is blaming the patient's PNA on her, saying that she gave it to him and this is causing distress in the patient. I discussed the case with his primary Oncologist today, as well as with Radiology, and with Palliative Care Review of Systems All systems reviewed & are unremarkable except as noted in HPI & below Physical Exam 2 Vital Signs (Past 24 Hours): Last Vital Signs Temp 36.7 C 08/29/18 09:34 Pulse 112 H 08/29/18 09:34 Resp 15 08/29/18 08:51 BP 125/75 08/29/18 09:34 Pulse Ox 96 08/29/18 09:34 Constitutional: + cachectic and + edematous; no acute distress Eyes: PERRL, conjunctivae normal, anicteric sclerae ENMT: Ears: no hearing impairment Neck: trachea midline, no thyromegaly Respiratory: normal respiratory effort; no respiratory distress and no labored breathing Auscultation: + crackles (at bases and middle lung ann bilat); no wheezes Cardiovascular: Rate/Rhythm: regular rate and regular rhythm Heart Sounds: no murmur Extremities: + edema (2+ pitting edema to the thighs; +scrotal and penile edema that is maybe slightly worse than previous) Gastrointestinal (Abdomen): Inspection/Auscultation: + abdomen distended ( more so than previous) and normal bowel sounds; + abdomen abnormal to inspection Percussion/Palpation: + abdominal mass and + ascites; + abnormal to percussion (palpable masses) Musculoskeletal: Extremities: no cyanosis and no clubbing Skin: no rashes, warm and dry Neurologic: moves all extremities and awake; no focal motor deficits Psychiatric: A+Ox3, euthymic affect Orientation: alert Genitourinary: + edematous penis and + scrotal swelling Results & Data Laboratory Results 08/29/18 08/29/18 08/29/18 Range/Units 20:19 18:05 16:25 WBC (4.8-10.8) K/uL RBC (4.7-6.1) M/uL Hgb (14.0-18.0) g/dL Hct (42-52) % MCV (80-100) fL MCH (25-34) pg MCHC (32-36) g/dL RDW Std Deviation (36.4-46.3) fL RDW Coeff of Zuleima (11.5-14.5) % Plt Count (130-400) K/uL Immature Gran % (Auto) Neut % (Auto) Lymph % (Auto) Gilmer % (Auto) Eos % (Auto) Baso % (Auto) Immature Gran # (Auto) Neut # (Auto) Lymph # (Auto) Gilmer # (Auto) Eos # (Auto) Baso # (Auto) Neutrophils % (Manual) Band Neutrophils % Lymphocytes % (Manual) Prolymphocyte % Reactive Lymphs % (Man) Monocytes % (Manual) Eosinophils % (Manual) Basophils % (Manual) Metamyelocytes % (Man) Myelocytes % (Man) Promyelocytes % (Man) Blast Cells % (Manual) Plasma Cell % (Manual) Other Cells % Nucleated RBC % Neutrophils # (Manual) Band Neutrophils # Total Absolute Neuts Lymphocytes # (Manual) Prolymphocyte # Reactive Lymphs # Total Abs Lymphocytes Monocytes # (Manual) Eosinophils # (Manual) Basophils # (Manual) Metamyelocytes # (Man) Myelocytes # (Manual) Promyelocytes # (Man) Blast Cells # (Man) Plasma Cell # (Manual) Other Cells # Nucleated RBCs # (Man) Hypersegmented Neuts Hyposegmented Neuts Hypogranular Neuts Large Granular Lymphs # Lrg Granular Lymphs Hairy Cells Smudge Cells Toxic Granulation Toxic Vacuolation Dohle Bodies Didier Rods Hypogranular Platelets Clumped Platelets Giant Platelets Platelet Satelliting RBC Morphology Polychromasia Hypochromasia Poikilocytosis Basophilic Stippling Anisocytosis Microcytosis Macrocytosis Spherocytes Pappenheimer Bodies Sickle Cells Target Cells Tear Drop Cells Ovalocytes Stomatocytes [place] Bodies Echinocytes Acanthocytes (Spur) Rouleaux RBC Agglutinates Schistocytes RBC Morph Comment Sezary Cell Sodium 133 L (136-145) mmol/L Potassium 2.9 L D (3.5-5.1) mmol/L Chloride 102 (98-107) mmol/L Carbon Dioxide 22 (21-32) mmol/L Anion Gap 10.0 (3-11) BUN 27 H (7-18) mg/dl Creatinine 1.10 (0.6-1.4) mg/dl Est Cr Clr Drug Dosing 107.7 ml/min Est GFR ( Amer) 106.8 Est GFR (Non-Af Amer) 92.2 BUN/Creatinine Ratio 24.1 H (10-20) Glucose 148 H (70-99) mg/dl POC Glucose 174 H 143 H (70-99) Calcium 7.4 L (8.5-10.1) mg/dl Phosphorus 2.5 (2.5-4.9) mg/dl Magnesium 2.0 (1.8-2.4) mg/dl Vancomycin Trough (See Comment) mcg/ml Blood Type Antibody Screen Crossmatch 08/29/18 08/29/18 08/29/18 Range/Units 12:34 11:44 07:00 WBC 0.48 L* (4.8-10.8) K/uL RBC 3.92 L (4.7-6.1) M/uL Hgb 10.0 L (14.0-18.0) g/dL Hct 28.9 L (42-52) % MCV 73.7 L (80-100) fL MCH 25.5 (25-34) pg MCHC 34.6 (32-36) g/dL RDW Std Deviation 45.0 (36.4-46.3) fL RDW Coeff of Zuleima 16.5 H (11.5-14.5) % Plt Count 7 L* (130-400) K/uL Immature Gran % (Auto) Cancelled Neut % (Auto) Cancelled Lymph % (Auto) Cancelled Gilmer % (Auto) Cancelled Eos % (Auto) Cancelled Baso % (Auto) Cancelled Immature Gran # (Auto) Cancelled Neut # (Auto) Cancelled Lymph # (Auto) Cancelled Gilmer # (Auto) Cancelled Eos # (Auto) Cancelled Baso # (Auto) Cancelled Neutrophils % (Manual) Cancelled Band Neutrophils % Cancelled Lymphocytes % (Manual) Cancelled Prolymphocyte % Cancelled Reactive Lymphs % (Man) Cancelled Monocytes % (Manual) Cancelled Eosinophils % (Manual) Cancelled Basophils % (Manual) Cancelled Metamyelocytes % (Man) Cancelled Myelocytes % (Man) Cancelled Promyelocytes % (Man) Cancelled Blast Cells % (Manual) Cancelled Plasma Cell % (Manual) Cancelled Other Cells % Cancelled Nucleated RBC % Cancelled Neutrophils # (Manual) Cancelled Band Neutrophils # Cancelled Total Absolute Neuts Cancelled Lymphocytes # (Manual) Cancelled Prolymphocyte # Cancelled Reactive Lymphs # Cancelled Total Abs Lymphocytes Cancelled Monocytes # (Manual) Cancelled Eosinophils # (Manual) Cancelled Basophils # (Manual) Cancelled Metamyelocytes # (Man) Cancelled Myelocytes # (Manual) Cancelled Promyelocytes # (Man) Cancelled Blast Cells # (Man) Cancelled Plasma Cell # (Manual) Cancelled Other Cells # Cancelled Nucleated RBCs # (Man) Cancelled Hypersegmented Neuts Cancelled Hyposegmented Neuts Cancelled Hypogranular Neuts Cancelled Large Granular Lymphs Cancelled # Lrg Granular Lymphs Cancelled Hairy Cells Cancelled Smudge Cells Cancelled Toxic Granulation Cancelled Toxic Vacuolation Cancelled Dohle Bodies Cancelled Didier Rods Cancelled Hypogranular Platelets Cancelled Clumped Platelets Cancelled Giant Platelets Cancelled Platelet Satelliting Cancelled RBC Morphology Cancelled Polychromasia Cancelled Hypochromasia Cancelled Poikilocytosis Cancelled Basophilic Stippling Cancelled Anisocytosis Cancelled Microcytosis Cancelled Macrocytosis Cancelled Spherocytes Cancelled Pappenheimer Bodies Cancelled Sickle Cells Cancelled Target Cells Cancelled Tear Drop Cells Cancelled Ovalocytes Cancelled Stomatocytes Cancelled [place] Bodies Cancelled Echinocytes Cancelled Acanthocytes (Spur) Cancelled Rouleaux Cancelled RBC Agglutinates Cancelled Schistocytes Cancelled RBC Morph Comment Cancelled Sezary Cell Cancelled Sodium (136-145) mmol/L Potassium (3.5-5.1) mmol/L Chloride (98-107) mmol/L Carbon Dioxide (21-32) mmol/L Anion Gap (3-11) BUN (7-18) mg/dl Creatinine (0.6-1.4) mg/dl Est Cr Clr Drug Dosing ml/min Est GFR ( Amer) Est GFR (Non-Af Amer) BUN/Creatinine Ratio (10-20) Glucose (70-99) mg/dl POC Glucose 122 H 101 H (70-99) Calcium (8.5-10.1) mg/dl Phosphorus (2.5-4.9) mg/dl Magnesium (1.8-2.4) mg/dl Vancomycin Trough (See Comment) mcg/ml Blood Type Antibody Screen Crossmatch 08/29/18 08/29/18 08/29/18 Range/Units 03:38 03:38 03:38 WBC 0.29 L* (4.8-10.8) K/uL RBC 3.82 L (4.7-6.1) M/uL Hgb 9.8 L (14.0-18.0) g/dL Hct 28.5 L (42-52) % MCV 74.6 L (80-100) fL MCH 25.7 (25-34) pg MCHC 34.4 (32-36) g/dL RDW Std Deviation 46.1 (36.4-46.3) fL RDW Coeff of Zuleima 16.7 H (11.5-14.5) % Plt Count 6 L* (130-400) K/uL Immature Gran % (Auto) Cancelled Neut % (Auto) Cancelled Lymph % (Auto) Cancelled Gilmer % (Auto) Cancelled Eos % (Auto) Cancelled Baso % (Auto) Cancelled Immature Gran # (Auto) Cancelled Neut # (Auto) Cancelled Lymph # (Auto) Cancelled Gilmer # (Auto) Cancelled Eos # (Auto) Cancelled Baso # (Auto) Cancelled Neutrophils % (Manual) Cancelled Band Neutrophils % Cancelled Lymphocytes % (Manual) Cancelled Prolymphocyte % Cancelled Reactive Lymphs % (Man) Cancelled Monocytes % (Manual) Cancelled Eosinophils % (Manual) Cancelled Basophils % (Manual) Cancelled Metamyelocytes % (Man) Cancelled Myelocytes % (Man) Cancelled Promyelocytes % (Man) Cancelled Blast Cells % (Manual) Cancelled Plasma Cell % (Manual) Cancelled Other Cells % Cancelled Nucleated RBC % Cancelled Neutrophils # (Manual) Cancelled Band Neutrophils # Cancelled Total Absolute Neuts Cancelled Lymphocytes # (Manual) Cancelled Prolymphocyte # Cancelled Reactive Lymphs # Cancelled Total Abs Lymphocytes Cancelled Monocytes # (Manual) Cancelled Eosinophils # (Manual) Cancelled Basophils # (Manual) Cancelled Metamyelocytes # (Man) Cancelled Myelocytes # (Manual) Cancelled Promyelocytes # (Man) Cancelled Blast Cells # (Man) Cancelled Plasma Cell # (Manual) Cancelled Other Cells # Cancelled Nucleated RBCs # (Man) Cancelled Hypersegmented Neuts Cancelled Hyposegmented Neuts Cancelled Hypogranular Neuts Cancelled Large Granular Lymphs Cancelled # Lrg Granular Lymphs Cancelled Hairy Cells Cancelled Smudge Cells Cancelled Toxic Granulation Cancelled Toxic Vacuolation Cancelled Dohle Bodies Cancelled Didier Rods Cancelled Hypogranular Platelets Cancelled Clumped Platelets Cancelled Giant Platelets Cancelled Platelet Satelliting Cancelled RBC Morphology Cancelled Polychromasia Cancelled Hypochromasia Cancelled Poikilocytosis Cancelled Basophilic Stippling Cancelled Anisocytosis Cancelled Microcytosis Cancelled Macrocytosis Cancelled Spherocytes Cancelled Pappenheimer Bodies Cancelled Sickle Cells Cancelled Target Cells Cancelled Tear Drop Cells Cancelled Ovalocytes Cancelled Stomatocytes Cancelled [place] Bodies Cancelled Echinocytes Cancelled Acanthocytes (Spur) Cancelled Rouleaux Cancelled RBC Agglutinates Cancelled Schistocytes Cancelled RBC Morph Comment Cancelled Sezary Cell Cancelled Sodium 134 L (136-145) mmol/L Potassium 2.5 L* (3.5-5.1) mmol/L Chloride 103 (98-107) mmol/L Carbon Dioxide 22 (21-32) mmol/L Anion Gap 8.0 (3-11) BUN 28 H (7-18) mg/dl Creatinine 0.94 (0.6-1.4) mg/dl Est Cr Clr Drug Dosing 126.0 ml/min Est GFR ( Amer) 129.2 Est GFR (Non-Af Amer) 111.5 BUN/Creatinine Ratio 30.1 H (10-20) Glucose 72 (70-99) mg/dl POC Glucose (70-99) Calcium 7.5 L (8.5-10.1) mg/dl Phosphorus 1.9 L (2.5-4.9) mg/dl Magnesium 1.8 (1.8-2.4) mg/dl Vancomycin Trough 17.2 (See Comment) mcg/ml Blood Type Antibody Screen Crossmatch 08/29/18 08/28/18 Range/Units 01:55 08:34 WBC (4.8-10.8) K/uL RBC (4.7-6.1) M/uL Hgb (14.0-18.0) g/dL Hct (42-52) % MCV (80-100) fL MCH (25-34) pg MCHC (32-36) g/dL RDW Std Deviation (36.4-46.3) fL RDW Coeff of Zuleima (11.5-14.5) % Plt Count (130-400) K/uL Immature Gran % (Auto) Neut % (Auto) Lymph % (Auto) Gilmer % (Auto) Eos % (Auto) Baso % (Auto) Immature Gran # (Auto) Neut # (Auto) Lymph # (Auto) Gilmer # (Auto) Eos # (Auto) Baso # (Auto) Neutrophils % (Manual) Band Neutrophils % Lymphocytes % (Manual) Prolymphocyte % Reactive Lymphs % (Man) Monocytes % (Manual) Eosinophils % (Manual) Basophils % (Manual) Metamyelocytes % (Man) Myelocytes % (Man) Promyelocytes % (Man) Blast Cells % (Manual) Plasma Cell % (Manual) Other Cells % Nucleated RBC % Neutrophils # (Manual) Band Neutrophils # Total Absolute Neuts Lymphocytes # (Manual) Prolymphocyte # Reactive Lymphs # Total Abs Lymphocytes Monocytes # (Manual) Eosinophils # (Manual) Basophils # (Manual) Metamyelocytes # (Man) Myelocytes # (Manual) Promyelocytes # (Man) Blast Cells # (Man) Plasma Cell # (Manual) Other Cells # Nucleated RBCs # (Man) Hypersegmented Neuts Hyposegmented Neuts Hypogranular Neuts Large Granular Lymphs # Lrg Granular Lymphs Hairy Cells Smudge Cells Toxic Granulation Toxic Vacuolation Dohle Bodies Didier Rods Hypogranular Platelets Clumped Platelets Giant Platelets Platelet Satelliting RBC Morphology Polychromasia Hypochromasia Poikilocytosis Basophilic Stippling Anisocytosis Microcytosis Macrocytosis Spherocytes Pappenheimer Bodies Sickle Cells Target Cells Tear Drop Cells Ovalocytes Stomatocytes [place] Bodies Echinocytes Acanthocytes (Spur) Rouleaux RBC Agglutinates Schistocytes RBC Morph Comment Sezary Cell Sodium (136-145) mmol/L Potassium (3.5-5.1) mmol/L Chloride (98-107) mmol/L Carbon Dioxide (21-32) mmol/L Anion Gap (3-11) BUN (7-18) mg/dl Creatinine (0.6-1.4) mg/dl Est Cr Clr Drug Dosing ml/min Est GFR ( Amer) Est GFR (Non-Af Amer) BUN/Creatinine Ratio (10-20) Glucose (70-99) mg/dl POC Glucose 95 (70-99) Calcium (8.5-10.1) mg/dl Phosphorus (2.5-4.9) mg/dl Magnesium (1.8-2.4) mg/dl Vancomycin Trough (See Comment) mcg/ml Blood Type O Negative Antibody Screen NEGATIVE Crossmatch See Detail Diagnostic Findings CXR image personally reviewed by me and with Radiology on the phone and agree with the following report: XR chest 1V portable CLINICAL HISTORY: Hypoxia. Metastatic testicular cancer. COMPARISON STUDY: Chest radiograph and chest CT August 25, 2018. FINDINGS: Left internal jugular [id number] remains in place. Lung volumes are diminished. Small bilateral pleural effusions, left larger than right, have increased. Perihilar and bibasilar consolidation is increased. Dilatation of visualized portions of the colon is unchanged. IMPRESSION: 1. Increase in perihilar and bibasilar consolidation which favors pneumonia. Pulmonary edema is considered less likely. 2. Increase in size of small bilateral pleural effusions, left larger than right. 3. Diminished lung volumes. Also with distension of the colon _ (1) Testicular cancer Descendance of testis: descended Laterality: left Qualified Code(s): C62.12 - Malignant neoplasm of descended left testis (2) Diabetes Chronic kidney disease stage: Diabetes mellitus complication detail: without coma Diabetes mellitus complication status: with hypoglycemia Diabetes mellitus usp insulin use: Diabetes mellitus macular edema: Diabetes mellitus type: type 1 Diabetic retinopathy severity: Laterality: Proliferative retinopathy type: Qualified Code(s): E10.649 - Type 1 diabetes mellitus with hypoglycemia without coma
--- NOTE | 2018-08-29 11:09 | XRay Report ---
XR chest 1V portable CLINICAL HISTORY: Hypoxia. Metastatic testicular cancer. COMPARISON STUDY: Chest radiograph and chest CT August 25, 2018. FINDINGS: Left internal jugular [id number] remains in place. Lung volumes are diminished. Small bi lateral pleural effusions, left larger than right, have increased. Perihilar and bibasilar consolidat ion is increased. Dilatation of visualized portions of the colon is unchanged. IMPRESSION: 1. Increase in perihilar and bibasilar consolidation which favors pneumonia. Pulmonary edema is consi dered less likely. 2. Increase in size of small bilateral pleural effusions, left larger than right. 3. Diminished lung volumes. Electronically signed by: Guicho Olivera M.D. 08/29/2018 11:08 AM
[2018-08-29] MEDS ORDERED: FUROSEMIDE 20 MG in SYRINGE 0 ML IV ONE ×2 (11:30→22:36)
[2018-08-29] MEDS: LEVOFLOXACIN/D5W 750 MG/150 ML BAG IV SCH (12:26)
--- NOTE | 2018-08-29 12:29 | Pharmacy Report ---
Pharmacy Abx Dose Short Note - Date of Service August 29, 2018 - Assessment & Plan Outpatient Anti-diabetic Regimen: * Tresiba 21 units SQ daily plus Novolog The patient is currently receiving: * Basal insulin: Lantus 5 units SC qAM * D10 NS with KCl 20 mEq/L titratable drip. Titrate ACHS based on BSG as follows: * Start @ 70 mL/hr * Range: 40-80 mL/hr * Increase 10 mL/hr for BSG < 100 mg/dL * Decrease 10 mL/hr for BSG > 140 mg/dL Note: patient has not received any Novolog this admission. Parameters as follows: * Bolus insulin. * NovoLog per scale ACHS or Q6hrs while NPO * Goal Range: Low 140 mg/dL - High 180 mg/dL * Correction Factor: 30 mg/dL/unit * Nutritional / Prandial insulin per carb ratio of 1 unit per 18 grams CHO consumed ASSESSMENT: * See my glycemic note from 08/27 for further details. In summary: * Titrating *dextrose* 10% infusion to BSG (rather than *insulin* dose) has successfully decreased number/severity of hypoglycemic episodes and metabolic abnormalities (eg worsening acidosis) has improved * Continue current regimen PLAN FOR INPATIENT GLYCEMIC CONTROL: * Basal insulin * Lantus 5 units SQ qAM * D10 NS with KCl 20 mEq/L titratable drip. Titrate ACHS based on BSG as follows: * Range: 40-80 mL/hr * Increase 10 mL/hr for BSG < 100 mg/dL * Decrease 10 mL/hr for BSG > 140 mg/dL Note: patient has not received any Novolog this admission. Parameters as follows: * Bolus insulin * NovoLog per scale ACHS or Q6hrs while NPO * Goal Range: Low 140 mg/dL - High 180 mg/dL * Correction Factor: 30 mg/dL/unit * Nutritional / Prandial insulin per carb ratio of 1 unit per 18 grams CHO consumed Pharmacy will continue to follow and will adjust dose/frequency as necessary. Thank you.
--- NOTE | 2018-08-29 12:43 | Pharmacy Report ---
Pharmacy Abx Dose Short Note - Date of Service August 29, 2018 - Assessment & Plan Assessment * 28 year old M with metastatic testicular cancer (immunosuppressed from chemotherapy with severe neutropenia but no fever) being treated for HAP * Broad-spectrum antimicrobials include Zosyn, levofloxacin, vancomycin, and caspofungin * SCr very slightly trending down - not likely to be clinically significant change Vancomycin * Goal trough 15-20 mcg/mL * Trough of 17.2 mcg/mL is therapeutic * Will repeat trough in 48 hours Plan * Continue vancomycin 1000 mg IV q16h * Repeat trough 08/31 @ 0330 Pharmacy will continue to follow and will adjust dose/frequency as necessary. Thank you.
[2018-08-29 13:39] LABS: Mean Corpuscular Hgb Conc 34.6 g/dL (32-36)
[2018-08-29 13:40] LABS: Hematocrit (blood only) 28.9 % (42-52); Mean Corpuscular Volume 73.7 fL (80-100); RDW Coefficient of Variation 16.5 % (11.5-14.5); Red Blood Count 3.92 M/uL (4.7-6.1); White Blood Count 0.48 K/uL (4.8-10.8)
[2018-08-29 13:55] LABS: Platelet Count 7 K/uL (130-400)
[2018-08-29] MEDS: CASPOFUNGIN 50 MG in SODIUM CHLORIDE 0.9% 250 ML IV SCH (14:37)
[2018-08-29] MEDS ORDERED: SODIUM CHLORIDE 0.9% 250 ML IV PRN (15:12)
--- NOTE | 2018-08-29 15:50 | Palliative Care Progress Note ---
Date of Service August 29, 2018 Assessment & Plan (1) Palliative care encounter: Patient is a 28-year-old male with metastatic testicular cancer diagnosed in June 2017. 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 Patient's alpha-fetoprotein remained elevated after resection-in August 2017 CT scan showed large retroperitoneal mass involving the left ureter and aorta. Patient underwent chemo from September through December-on 01/29 he underwent surgical resection of the mass-fianc reports that they were told it was removed completely. Patient was lost to follow-up until this August when he presented with an enlarged abdomen and lower extremity edema. CT scan done on 07/23 showed mediastinal adenopathy as well as paratracheal, avascular necrosis of the left hip, right kidney infarct with scarring, large multiple masses in the omentum and mesentery, pelvic mass 8.5 cm, a 2.3 cm left inguinal mass and lesions abutting the liver. Patient's market abdominal distention was evaluated by ultrasound on 08/13-this showed trace ascites. CT scan performed on 08/22 showed large amount of ascites-patient underwent paracentesis for 5 L of fluid. . Patient now with pancytopenia related to chemo-requiring broad- spectrum antibiotics and antifungals, abdominal distention increasing. OxyContin dose decreased due to increased somnolence - Patient's pain appears well-controlled on MS Contin 30 mg every 12-patient required only 1 as needed oxycodone overnight for pain. Patient has signed paperwork naming his fiance as his POA-fianc has asked that his parents not be informed of this change. Patient will need to decide where he wishes to live and continue chemotherapy-either at home with his parents or in the [place] area with his filandens family. There is significant family dynamics affecting patient's decision. -CODE STATUS is currently a FULL CODE. -Neutropenia-continue broad-spectrum IV antibiotic/Antifungal coverage (2) Abdominal pain: Due to advanced metastatic disease-patient on MS Contin 30 mg Q 12h with adequate pain control-only required 1 as needed oxycodone overnight. Pain decreases after paracentesis (3) Testicular cancer: -Patient receiving aggressive chemo-plan is to continue with aggressive chemo and aggressive treatment of his bilateral basilar infiltrate -Further plans per oncology (4) Abdominal distention: -Status post paracentesis of 5 L-Now abdominal distention increasing -Plan for paracentesis today after platelet transfusion (5) Anxiety: - Continue as needed Xanax at decreased dose of 0.25 mg every 12 hours as needed -last dose required was on 08/28, well controlled with as needed Xanax (6) Urinary retention: Patient voiding well after Coates catheter discontinued (7) Edema: Lower extremity and scrotal edema markedly improved-continue to monitor Subjective Patient seen and examined this afternoon, fianc and grandfather at bedside Patient more awake and alert, no acute distress. Patient does report increased abdominal pain due to increased abdominal distention-patient required 1 as needed oxycodone overnight for pain/discomfort. Pain appears well controlled on current dose of MS Contin at 30 mg every 12. Patient denies fever, chills, chest pain or Shortness of breath. Chest x-ray shows increased bilateral infiltrates-suggestive of pneumonia, also bilateral small pleural effusions. Patient's white count is 0.29, hemoglobin 9.8, platelets 6K. Patient is planned for paracentesis today after a platelet transfusion. Physical Exam 2 Vital Signs (Past 24 Hours): Last Vital Signs Temp 36.4 C L 08/29/18 14:59 Pulse 94 H 08/29/18 14:59 Resp 20 08/29/18 14:59 BP 117/73 08/29/18 14:59 Pulse Ox 96 08/29/18 14:59 Constitutional: More alert on exam, appears comfortable, sitting up in bed visiting with family at bedside. Respiratory: Unlabored Cardiovascular: Tachycardic Gastrointestinal (Abdomen): Distended, no grimace on light palpation Musculoskeletal: Decreased lower extremity edema-now to the level of his knees bilaterally Skin: No increased pallor Neurologic: No new deficits, more alert, less sedated Psychiatric: Appropriate Time Spent Attending Total time spent 35 minutes with greater than 50% of the time spent at bedside discussing patient's current condition, plan of care as well as goals of care. _ (1) Abdominal pain Abdominal location: generalized Qualified Code(s): R10.84 - Generalized abdominal pain (2) Testicular cancer Descendance of testis: descended Laterality: left Qualified Code(s): C62.12 - Malignant neoplasm of descended left testis
[2018-08-29 18:47] LABS: BUN Creatinine Ratio 24.1 (10-20); Calcium 7.4 mg/dl (8.5-10.1); Creatinine Clr Calc Pharmacy 107.7 ml/min; Est GFR (African American) 106.8; Est GFR (Non-African American) 92.2; Phosphorus 2.5 mg/dl (2.5-4.9); Potassium 2.9 mmol/L (3.5-5.1)
[2018-08-29] MEDS ORDERED: LIDOCAINE 5% 1 PATCH TD STA (21:29)
[2018-08-29] MEDS: OXYCODONE HCL IR 5 MG TAB (IMMEDIATE RELEASE) PO PRN (21:40)
--- NOTE | 2018-08-29 23:00 | Ultrasound Report ---
BILATERAL LOWER EXTREMITY VENOUS DOPPLER HISTORY: Acute pain and swelling of the bilateral lower extremities r/o DVT COMPARISON STUDY: Duplex venous Doppler study 08/14/2018 FINDINGS: There is normal compressibility, flow, and augmentation within the bilateral lower extremit y deep venous systems. Soft tissue edema noted within the bilateral lower extremities. IMPRESSION: No sonographic evidence of deep venous thrombosis within the right or left lower extremity. Electronically signed by: Juan Huynh M.D. 08/29/2018 10:58 PM
[2018-08-29] MEDS: ALPRAZolam 0.25 MG TABLET PO PRN (23:38)
[2018-08-30] MEDS: SOD CHLOR IV SCH (03:51)
[2018-08-30] MEDS: POTASSIUM CHLORIDE IV SCH (03:51)
[2018-08-30] MEDS: DEXTROSE 10% IV SCH (03:51)
[2018-08-30] MEDS: OXYCODONE HCL IR 5 MG TAB (IMMEDIATE RELEASE) PO PRN ×3 (04:43→23:22)
[2018-08-30] MEDS: DEXAMETHASONE CONC 3.75 MG, NYSTATIN 30 ML, DiphenhydrAMINE Syrup 300 MG, ORA-SWEET SYR... PO SCH ×5 (04:53→22:50)
[2018-08-30 05:03] LABS: Hematocrit (blood only) 30.1 % (42-52); Hemoglobin 10.2 g/dL (14.0-18.0); Mean Corpuscular Hgb Conc 33.9 g/dL (32-36); Mean Corpuscular Volume 74.7 fL (80-100); Platelet Count 13 K/uL (130-400); RDW Coefficient of Variation 16.7 % (11.5-14.5); RDW Standard Deviation 46.4 fL (36.4-46.3); Red Blood Count 4.03 M/uL (4.7-6.1); White Blood Count 1.13 K/uL (4.8-10.8)
[2018-08-30 05:13] LABS: Albumin Level 1.2 gm/dl (3.4-5.0); BUN Creatinine Ratio 24.3 (10-20); Bilirubin Direct 0.4 mg/dl (0-0.2); Calcium 7.5 mg/dl (8.5-10.1); Creatinine Clr Calc Pharmacy 109.7 ml/min; Est GFR (African American) 109.2; Est GFR (Non-African American) 94.2; Magnesium 1.8 mg/dl (1.8-2.4); Potassium 3.1 mmol/L (3.5-5.1)
[2018-08-30 05:15] LABS: Bilirubin,Total 0.7 mg/dl (0.1-1); Phosphorus 2.3 mg/dl (2.5-4.9); Total Protein 5.1 gm/dl (6.4-8.2)
[2018-08-30 05:24] LABS: ALC (manual) 0.28 K/uL (1.2-3.4); Echinocytes 1+; Eosinophils # (manual) 0.01 K/uL (0-0.5); Lymphocytes # (manual) 0.28 K/uL (1.2-3.4); Lymphocytes % (manual) 24.6 %; Monocytes # (manual) 0.16 K/uL (0.11-0.59); Neutrophils % (manual) 60.5 %
[2018-08-30] MEDS ORDERED: POTASSIUM CHLORIDE PWD 20 MEQ PACK PO STA (05:57)
--- NOTE | 2018-08-30 06:03 | Progress Note ---
Date of Service August 30, 2018 Called re: Patient having significant chest pain Records reviewed and discussed with nursing staff Vitals stable, EKG WNL, platelet 7 dust decreased risk of clot. Recent CT negative for PE. Lower extremity Doppler 2 weeks ago negative. Note decrease in pain medication recently, patient received MS Contin but not oxycodone. Plan: Recheck ultrasound Doppler of lower extremities. Recommend administration of as needed oxycodone dose. Prescribed lidocaine patch to apply to chest. Nurse to call with update re: worsening pain symptoms and or deterioration of vitals. Resident Activity Tracking Resident Involvement: Resident Care Provided Care Provided: Adult Hospital Medicine
[2018-08-30] MEDS ORDERED: POTASSIUM PHOS 3 MMOL/1 ML INFUSION IV STA (07:47)
[2018-08-30] MEDS ORDERED: MAGNESIUM SULFATE / D5W 1 GM/100 ML BAG IV STA (08:01)
[2018-08-30] MEDS ORDERED: ALBUMIN 25% 50 ML with FUROSEMIDE 20 MG IV STA (08:01)
[2018-08-30] MEDS ORDERED: POTASSIUM CHLORIDE 20 MEQ TABCR PO STA (08:02)
[2018-08-30] MEDS: DRONABINOL 2.5 MG CAP PO SCH ×2 (08:30→19:44)
[2018-08-30] MEDS: MoRPHine SULFATE CR 15 MG TABCR PO SCH ×2 (08:30→19:44)
[2018-08-30] MEDS: FAMOTIDINE 20 MG TAB PO SCH ×2 (08:30→19:53)
[2018-08-30] MEDS: NICOTINE 21 MG/24 HR TDSY TD SCH (08:30)
[2018-08-30] MEDS: CITALOPRAM 20 MG TAB PO SCH (08:30)
[2018-08-30] MEDS: NYSTATIN SUSP 500,000 U/5 ML UDC PO SCH ×4 (08:30→19:53)
[2018-08-30] MEDS: INSULIN ASPART 100 UNITS/ML 3 ML PEN SC SCH ×4 (08:31→20:59)
[2018-08-30] MEDS: INSULIN GLARGINE SOLOSTAR 100 UNITS/ML 3 ML PEN SC SCH (08:32)
[2018-08-30] MEDS: [UNRECOGNIZED DRUG - REMARK] SCH ×4 (08:33→22:49)
[2018-08-30] MEDS: PIPERACILLIN/TAZOBACTAM 3.375 GM in DEXTROSE 5% 100 ML IV SCH ×3 (08:35→23:22)
[2018-08-30] MEDS ORDERED: FILGRASTIM 300 MCG/ML VIAL SQ SCH (09:00)
[2018-08-30] MEDS: POTASSIUM CHLORIDE / WTR 20 MEQ/100 ML PLCT IV SCH ×5 (09:11→22:30)
[2018-08-30] MEDS ORDERED: POTASSIUM PHOSPHATE 21 MMOL in SODIUM CHLORIDE 0.9% 500 ML IV ONE (09:30)
[2018-08-30] MEDS ORDERED: HYDROmorphone INJ 0.5 MG/0.5 ML SYR IV STA ×2 (11:12→20:32)
[2018-08-30] MEDS ORDERED: HYDROmorphone INJ 0.5 MG/0.5 ML SYR ONE ×2 (11:14→20:37)
[2018-08-30] MEDS: LEVOFLOXACIN/D5W 750 MG/150 ML BAG IV SCH (11:21)
[2018-08-30] MEDS: VANCOMYCIN HCL 1,000 MG in SODIUM CHLORIDE 0.9% 250 ML IV SCH ×2 (13:33→13:45)
--- NOTE | 2018-08-30 14:55 | Hospitalist Progress Note ---
Date of Service August 30, 2018 Assessment & Plan (1) Testicular cancer: Advanced, metastatic, aggressive. 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 Then was apparently lost to follow up for 5 months and returned in the last month for worsening abd pain and distension -has abdominal carcinomatosis, thoracic mediastinal adenopathy -poor prognosis Dr. Cruz fears he will not survive long enough to see if chemotherapy working He completed a cycle of chemotherapy on 08/21, no further chemo planned until September Now has complications with neutropenia, pneumonia, pancytopenia, hypoxia ( resolved), and malignant ascites Patient wishes to continue treatment, remain level 1 unless he is determined to be in a vegetative state as per his Advanced directive Had excessive sedation secondary to opioids which is now improved with weaning down dose of MS Contin (was previously taking 60mg q8h) -continue MS Contin 30mg po q12h -Have since discontinued IV Dilaudid and IV lorazepam due to excessive sedation- but did give a one time dose today of Dialudid 0.5mg IV -continue oxycodone to 10mg every 6 hours prn breakthrough pain -Continue Marinol 2.5mg po bid for appetite stimulation, nausea-is definitely helping -Appreciate Pallaitive Care and Oncology consultations -still awaiting counts to recover as below -Now the patient is fianc are discussing whether to transfer care to [facility] so he can stay with his fiancs parents in a more supportive home environment-still undecided (2) Abdominal distention: Due to large tumor, abdominal wall edema, increasing malignant ascites, albumin severely low at 1.2 Had paracentesis on 08/22 with 5L removed, tolerated well . No studies were sent on fluid KUB on 08/30 with gaseous distension of bowel loops with gas in rectum (which has been present previously on CT and though to be from tumor compression, favors ileus, with noted ascites,no pneumoperitoneum or pneumatosis -having some worsening abd distension and scrotal edema again and has received a LOT of IVFs between antibiotics, transfusions, and numerous electrolyte replacements, as well as from D10 required for persistent hypoglycemia -attempts to get additional platelets transfused in a timely fashion on Saturday so as to facilitate IR Paracentesis were not successful---> will continue diuresis with lasix and albumin as tolerated and plan for paracentesis on Saturday if platelets ok -pain control as above -will be discontinuing antibiocs for PNA tomorrow which will help volume status -will decrease rate of D10NS + KCl 20meq to 60 mls/hr as glucose is improved with increased po intake (3) Pancytopenia due to antineoplastic chemotherapy: Unclear when his yesika will be as per Oncology as he had a delay in getting his entire regimen of chemo (he left AMA in the middle of his treatment)--> all counts starting to improve today but has had significant transfusional support WBC count is continuing to come up with once daily Neupogen--> up to 1.13 today with ANC 680 Platelets remain severely low but improved to 13k up from 6k -transfused with 1 unit platelets again on 08/30 Hemoglobin up to 10 today-last transfusion was 2 units PRBCs on 08/28 (and had 2 units on 08/25) No evidence of bleeding -follow CBC -continue neutropenic precautions -will not be able to have paracentesis unfortunately until plts improve -hold all blood thinning medications (4) Neutropenia: ANC up to 680 no fever but did have hypothermia on evening of 08/28 requiring Claude Hugger received Neulasta x 1 dose on 08/23 Received Neupogen 300mcg daily since 08/25 -Continue Neupogen dose daily until WBC improves and neutropenia resolved -follow CBC (5) Acute respiratory failure with hypoxia: Had labored breathing and hypoxia on 08/25 Found to have bibasilar pneumonia on CTA Chest, no PE (checked due to tachycardia, chest pain and high risk for clot given malignancy) Also anemia contributing Did resolve with antibiotic treatment, s/p PRBCs and IV lasix, but intermittently back on O2 at 1LNC Is volume overloaded and severely hypoalbuminemic Lungs sound very coarse at bases and middle lung ann secondary to PNA and likely pulm edema Repeat CXR 08/29 with worsening bibasilar opacities secondary to PNA, possible Pulm edema -continue IV diuresis with Lasix 20mg IV bid and add Albumin 25% today, reassess daily given hypotension at times and profound hypokalemia -continue treatment of HCAP as below - patient wants to remain a level one, would want intubated if needed -follow I/Os-have NOT been accurately recorded for many days as patient frequenlt urinates in the toilet without RN knowledge -weight is actually DOWN significantly from one week ago but has remained stable the last few days (6) Hospital acquired PNA: bibasilar ground glass opacities seen on CT chest 08/25 when had worsening hypoxia as above was seen on CXR 08/25 and worse on 08/29 as well has a mild cough, not very productive -continue broad spectrum antibiotics due to severe neutropenia as well as treatment for Gram negative PNA and coverage for MRSA PNA -continue Vancomcyin, Zosyn, Levaquin day #6/7--> change Levaquin to po to cut back on IVFs -continue Caspofungin for antifungal coverage as per Oncology recommendation - day #4 of ?? (7) CKD (chronic kidney disease) stage 2, GFR 60-89 ml/min: Cr stable in normal range Improved oral intake since starting Marinol -continue D10NS with KCl 20meq for now -follow BMP (8) Hyponatremia: This is been a persistent problem for the patient in the past usually has no untoward symptoms Na+ improved today at 137 after diuresis -follow BMP (9) Anemia: due to bone marrow suppression with recent chemotherapy Hb 7.0 and was transfused on 08/25 2 units PRBCs and came up to 8.3 Hgb down to 7.9 on 08/28-transfused 2 units PRBCs Now improved at 10 -follow CBC in AM (10) Urinary retention: previously secondary to tumor burden and significant scrotal and penile edema and was self-cathing, then resolved with diuresis and chemo -on 08/30, now with worsening abd pain and ascites, had retention of 450 mL of urine despite urinating frequently -place [facility] if needed tonight if continues retaining > 400 mLs-bladder scans difficult to interpret in him due to ascites (11) Diabetes: pharmacy on board for glycemic management patient having issues with hypoglycemia due to poor intake, required glucagon on 08/26. Much improved today with increased po intake Acidosis resolved and was secondary to iatrogenic insulin deficiency (due to hypoglycemia) which is now resolved -Continue D10 in IVFs and decrease rate as above to 60 mls/hr -continue Lantus 5 units daily, SSI -continue to monitor closely for hypoglycemia -follow BMP (12) Abdominal pain: Secondary to metastatic disease and malignant ascites as above -Palliative Care following -continue MS Contin 30mg po q12 with oxycodone 10mg q6h prn breakthrough pain, occasional IV Dilaudid -paracentesis as needed but hold off given severe thrombocytopenia-will need on Saturday if platelets improved (13) Hypokalemia: Persistently profoundly low, could be secondary to Lasix use and poor p.o. intake. Finally starting to see some improvement today at 3.1 after multiple K-riders continue to replace potassium, phosphorus and magnesium as well today -Follow BMP, magnesium, phosphorus bid (14) Hypophosphatemia: Replaced with potassium phosphate and is now improved -Follow-up phosphorus level in the morning (15) DVT prophylaxis: Lovenox on hold for thrombocytopenia Dispo-remain on tele given tenuous state and profound electrolyte abnormalities. Difficult social issues, patient's fiantonio is at bedside all the time patient's mother is alcoholic, father has strained relationship, his parents cause him severe anxiety, but he still wants them involved in his care Pt has completed the HCPOA paperwork and designated his FianceSaran Dailey, to be his primary decision maker (and father is secondary)-patient and ann ask that his parents not be made aware of this decision for her to be the healthcare power of admitted attorneys as they will be very upset and will cause the patient a lot more anxiety service excellence was involved in witnessing the paperwork FULL CODE-however pt does not want to be on life support if not likely that he will not recover or if in a prolonged vegetative state. Also would not want feeding tube as per his directive. Palliative Care following Expect he will be in the hospital for at least 3-5 more days until counts and electrolytes all recover Subjective Patient having worsening lower abdominal pain today and apparently had worsening chest pain overnight. He had an ECG that was normal. The overnight resident ordered lower extremity Dopplers which were negative for DVT. He reports he has increased pain every time he tries to eat but is feeling very hungry. He is reporting that he is urinating, however in the early afternoon today, he was found to be retaining 1100 mL's of urine on bladder scan but straight cath produced 450 mL--> likely ascites showing up on bladder scan but truly is retaining urine. He is having some loose stools, nonbloody. No bleeding from anywhere else. He is tearful due to his pain. Review of Systems All systems reviewed & are unremarkable except as noted in HPI & below Physical Exam 2 Vital Signs (Past 24 Hours): Last Vital Signs Temp 36.5 C 08/30/18 10:58 Pulse 78 08/30/18 10:58 Resp 18 08/30/18 10:58 BP 112/72 08/30/18 10:58 Pulse Ox 95 08/30/18 10:58 Constitutional: + acute distress (Mild), + cachectic and + edematous Eyes: PERRL, conjunctivae normal, anicteric sclerae ENMT: Ears: no hearing impairment Mouth: no oral mucosal abnormality ( White plaques are resolved) Neck: trachea midline, no thyromegaly Respiratory: normal respiratory effort; no respiratory distress and no labored breathing Auscultation: + crackles (at bases and middle lung ann bilat); no wheezes Cardiovascular: Rate/Rhythm: regular rate and regular rhythm Heart Sounds: no murmur Extremities: + edema (3+ pitting edema to the thighs; +scrotal and penile edema) Gastrointestinal (Abdomen): Inspection/Auscultation: + abdomen distended (But soft) and normal bowel sounds; + abdomen abnormal to inspection Percussion/ Palpation: + abdomen tender (in lower to mid abdomen without guarding), + abdominal mass and + ascites Musculoskeletal: Extremities: no cyanosis and no clubbing Skin: no rashes, warm and dry Neurologic: moves all extremities and awake; no focal motor deficits Psychiatric: Orientation: alert Motor Behavior: n tremor Affect: + tearful affect Genitourinary: + edematous penis and + scrotal swelling Results & Data Laboratory Results 08/30/18 08/30/18 08/30/18 Range/Units 11:45 07:58 04:31 WBC (4.8-10.8) K/uL RBC (4.7-6.1) M/uL Hgb (14.0-18.0) g/dL Hct (42-52) % MCV (80-100) fL MCH (25-34) pg MCHC (32-36) g/dL RDW Std Deviation (36.4-46.3) fL RDW Coeff of Zuleima (11.5-14.5) % Plt Count (130-400) K/uL Neutrophils % (Manual) % Lymphocytes % (Manual) % Monocytes % (Manual) % Eosinophils % (Manual) % Neutrophils # (Manual) (1.4-6.5) K/uL Total Absolute Neuts (1.4-6.5) K/uL Lymphocytes # (Manual) (1.2-3.4) K/uL Total Abs Lymphocytes (1.2-3.4) K/uL Monocytes # (Manual) (0.11-0.59) K/uL Eosinophils # (Manual) (0-0.5) K/uL Platelet Estimate (Normal) Echinocytes Sodium 134 L (136-145) mmol/L Potassium 3.1 L (3.5-5.1) mmol/L Chloride 103 (98-107) mmol/L Carbon Dioxide 25 (21-32) mmol/L Anion Gap 6.0 (3-11) BUN 26 H (7-18) mg/dl Creatinine 1.08 (0.6-1.4) mg/dl Est Cr Clr Drug Dosing 109.7 ml/min Est GFR ( Amer) 109.2 Est GFR (Non-Af Amer) 94.2 BUN/Creatinine Ratio 24.3 H (10-20) Glucose 151 H (70-99) mg/dl POC Glucose 219 H 179 H (70-99) Calcium 7.5 L (8.5-10.1) mg/dl Phosphorus 2.3 L (2.5-4.9) mg/dl Magnesium 1.8 (1.8-2.4) mg/dl Total Bilirubin 0.7 (0.1-1) mg/dl Direct Bilirubin 0.4 H (0-0.2) mg/dl AST 16 (15-37) U/L ALT 31 (12-78) U/L Alkaline Phosphatase 133 H (45-117) U/L Total Protein 5.1 L (6.4-8.2) gm/dl Albumin 1.2 L (3.4-5.0) gm/dl Blood Type Antibody Screen Crossmatch 08/30/18 08/29/18 08/29/18 Range/Units 04:31 20:19 18:05 WBC 1.13 L (4.8-10.8) K/uL RBC 4.03 L (4.7-6.1) M/uL Hgb 10.2 L (14.0-18.0) g/dL Hct 30.1 L (42-52) % MCV 74.7 L (80-100) fL MCH 25.3 (25-34) pg MCHC 33.9 (32-36) g/dL RDW Std Deviation 46.4 H (36.4-46.3) fL RDW Coeff of Zuleima 16.7 H (11.5-14.5) % Plt Count 13 L* D (130-400) K/uL Neutrophils % (Manual) 60.5 % Lymphocytes % (Manual) 24.6 % Monocytes % (Manual) 14.0 % Eosinophils % (Manual) 0.9 % Neutrophils # (Manual) 0.68 L (1.4-6.5) K/uL Total Absolute Neuts 0.68 L* (1.4-6.5) K/uL Lymphocytes # (Manual) 0.28 L (1.2-3.4) K/uL Total Abs Lymphocytes 0.28 L (1.2-3.4) K/uL Monocytes # (Manual) 0.16 (0.11-0.59) K/uL Eosinophils # (Manual) 0.01 (0-0.5) K/uL Platelet Estimate SIGNIFIC DECREASED (Normal) Echinocytes 1+ Sodium 133 L (136-145) mmol/L Potassium 2.9 L D (3.5-5.1) mmol/L Chloride 102 (98-107) mmol/L Carbon Dioxide 22 (21-32) mmol/L Anion Gap 10.0 (3-11) BUN 27 H (7-18) mg/dl Creatinine 1.10 (0.6-1.4) mg/dl Est Cr Clr Drug Dosing 107.7 ml/min Est GFR ( Amer) 106.8 Est GFR (Non-Af Amer) 92.2 BUN/Creatinine Ratio 24.1 H (10-20) Glucose 148 H (70-99) mg/dl POC Glucose 174 H (70-99) Calcium 7.4 L (8.5-10.1) mg/dl Phosphorus 2.5 (2.5-4.9) mg/dl Magnesium 2.0 (1.8-2.4) mg/dl Total Bilirubin (0.1-1) mg/dl Direct Bilirubin (0-0.2) mg/dl AST (15-37) U/L ALT (12-78) U/L Alkaline Phosphatase (45-117) U/L Total Protein (6.4-8.2) gm/dl Albumin (3.4-5.0) gm/dl Blood Type Antibody Screen Crossmatch 08/29/18 08/28/18 Range/Units 16:25 08:34 WBC (4.8-10.8) K/uL RBC (4.7-6.1) M/uL Hgb (14.0-18.0) g/dL Hct (42-52) % MCV (80-100) fL MCH (25-34) pg MCHC (32-36) g/dL RDW Std Deviation (36.4-46.3) fL RDW Coeff of Zuleima (11.5-14.5) % Plt Count (130-400) K/uL Neutrophils % (Manual) % Lymphocytes % (Manual) % Monocytes % (Manual) % Eosinophils % (Manual) % Neutrophils # (Manual) (1.4-6.5) K/uL Total Absolute Neuts (1.4-6.5) K/uL Lymphocytes # (Manual) (1.2-3.4) K/uL Total Abs Lymphocytes (1.2-3.4) K/uL Monocytes # (Manual) (0.11-0.59) K/uL Eosinophils # (Manual) (0-0.5) K/uL Platelet Estimate (Normal) Echinocytes Sodium (136-145) mmol/L Potassium (3.5-5.1) mmol/L Chloride (98-107) mmol/L Carbon Dioxide (21-32) mmol/L Anion Gap (3-11) BUN (7-18) mg/dl Creatinine (0.6-1.4) mg/dl Est Cr Clr Drug Dosing ml/min Est GFR ( Amer) Est GFR (Non-Af Amer) BUN/Creatinine Ratio (10-20) Glucose (70-99) mg/dl POC Glucose 143 H (70-99) Calcium (8.5-10.1) mg/dl Phosphorus (2.5-4.9) mg/dl Magnesium (1.8-2.4) mg/dl Total Bilirubin (0.1-1) mg/dl Direct Bilirubin (0-0.2) mg/dl AST (15-37) U/L ALT (12-78) U/L Alkaline Phosphatase (45-117) U/L Total Protein (6.4-8.2) gm/dl Albumin (3.4-5.0) gm/dl Blood Type O Negative Antibody Screen NEGATIVE Crossmatch See Detail _ (1) Testicular cancer Descendance of testis: descended Laterality: left Qualified Code(s): C62.12 - Malignant neoplasm of descended left testis (2) Diabetes Chronic kidney disease stage: Diabetes mellitus complication detail: without coma Diabetes mellitus complication status: with hypoglycemia Diabetes mellitus mcfp insulin use: Diabetes mellitus macular edema: Diabetes mellitus type: type 1 Diabetic retinopathy severity: Laterality: Proliferative retinopathy type: Qualified Code(s): E10.649 - Type 1 diabetes mellitus with hypoglycemia without coma
[2018-08-30] MEDS: CASPOFUNGIN 50 MG in SODIUM CHLORIDE 0.9% 250 ML IV SCH (16:07)
[2018-08-30 16:33] LABS: BUN Creatinine Ratio 23.6 (10-20); Calcium 7.3 mg/dl (8.5-10.1); Creatinine Clr Calc Pharmacy 103.9 ml/min; Est GFR (African American) 102.3; Est GFR (Non-African American) 88.3; Potassium 2.9 mmol/L (3.5-5.1)
--- NOTE | 2018-08-30 19:12 | XRay Report ---
KUB HISTORY: Generalized abdominal pain,assess for obstruction COMPARISON: Chest and abdominal series 08/06/2018. FINDINGS: There again noted multiple surgical clips seen within the abdomen and pelvis. Pinning of th e left hip with an old fracture and avascular necrosis of the femoral head. This remains unchanged. N o pneumoperitoneum. No pneumatosis. Multiple mildly dilated gas-filled loops of large and small bowel seen throughout the abdomen. There is also gas within the rectum. Therefore, these findings favor an ileus. Site is is again noted. No renal calculi. No ureteral calculi. No pneumoperitoneum or pneumat osis. IMPRESSION: 1. Multiple mildly dilated gas-filled loops of large and small bowel consistent with an ileus. 2. Ascites. Electronically signed by: Zackary Delatorre M.D. 08/30/2018 7:11 PM
[2018-08-30] MEDS: ALPRAZolam 0.25 MG TABLET PO PRN (20:14)
[2018-08-30] MEDS ORDERED: POTASSIUM CHLORIDE PWD 20 MEQ PACK PO SCH (21:00)
[2018-08-30] MEDS ORDERED: ALBUMIN 25% 50 ML with FUROSEMIDE 20 MG IV ONE (22:31)
[2018-08-31] MEDS: DEXAMETHASONE CONC 3.75 MG, NYSTATIN 30 ML, DiphenhydrAMINE Syrup 300 MG, ORA-SWEET SYR... PO SCH ×6 (01:10→21:21)
[2018-08-31] MEDS ORDERED: HYDROmorphone INJ 0.5 MG/0.5 ML SYR IV STA (01:35)
--- NOTE | 2018-08-31 01:39 | Progress Note ---
Date of Service August 31, 2018 Assessment & Plan (1) Chest pain: S: Called to bedside for patient with ongoing, not currently controlled chest pain. Patient says is same as it was before, including last night. No new complaints of acute difficulty breathing. O: Vitals reviewed. Found patient initially resting and almost sleeping but opened eyes when room door opened. Unlabored breathing. +S1S2, RRR. Crackles at bases, clear in upper ann. A/P: Per brief chart review, hx of metastatic testicular cancer with palliative care involvement. Recent decreases in extended-release narcotics due to somnolence. At present doesn't appear to have an acute cardiopulmonary issue. - Ordered single-dose dilaudid 0.5 mg IV. - Since now two nights in a row with increased pain, hopefully chronic regimen can be further optimized by primary team. Juan Rico, PGY2 Overnight call Physical Exam 2 Vital Signs (Past 24 Hours): Last Vital Signs Temp 36.4 C L 08/30/18 23:15 Pulse 83 08/31/18 00:14 Resp 16 08/30/18 23:15 BP 113/72 08/30/18 23:15 Pulse Ox 95 08/30/18 23:15
[2018-08-31] MEDS ORDERED: VANCOMYCIN TROUGH ONE (03:30)
[2018-08-31] MEDS: VANCOMYCIN HCL 1,000 MG in SODIUM CHLORIDE 0.9% 250 ML IV SCH (03:51)
[2018-08-31 04:36] LABS: Albumin Level 1.5 gm/dl (3.4-5.0); BUN Creatinine Ratio 21.7 (10-20); Calcium 7.4 mg/dl (8.5-10.1); Creatinine Clr Calc Pharmacy 110.7 ml/min; Est GFR (African American) 110.5; Est GFR (Non-African American) 95.3; Hematocrit (blood only) 29.4 % (42-52); Hemoglobin 9.7 g/dL (14.0-18.0); Magnesium 1.7 mg/dl (1.8-2.4); Mean Corpuscular Volume 75.2 fL (80-100); Platelet Count 13 K/uL (130-400); RDW Coefficient of Variation 17.1 % (11.5-14.5); RDW Standard Deviation 47.3 fL (36.4-46.3); Red Blood Count 3.91 M/uL (4.7-6.1); White Blood Count 3.39 K/uL (4.8-10.8)
[2018-08-31 04:37] LABS: Phosphorus 1.8 mg/dl (2.5-4.9)
[2018-08-31 04:40] LABS: Basophils # (auto) 0.01 K/uL (0-0.2); Basophils % (auto) 0.3 %; Dohle Bodies 2+; Hypogranular Neutrophils 3+; Immature Granulocytes # (auto) 0.23 K/uL (0.00-0.02); Immature Granulocytes % (auto) 6.8 %; Lymphocytes # (auto) 0.44 K/uL (1.2-3.4); Monocytes % (auto) 2.9 %; Neutrophils # (auto) 2.61 K/uL (1.4-6.5)
[2018-08-31] MEDS ORDERED: POTASSIUM PHOS 3 MMOL/1 ML INFUSION IV STA (08:08)
[2018-08-31] MEDS: MAGNESIUM SULFATE / D5W 1 GM/100 ML BAG IV SCH ×2 (08:46→09:56)
[2018-08-31] MEDS: POTASSIUM CHLORIDE PWD 20 MEQ PACK PO SCH ×2 (08:46→19:39)
[2018-08-31] MEDS: INSULIN GLARGINE SOLOSTAR 100 UNITS/ML 3 ML PEN SC SCH (08:48)
[2018-08-31] MEDS: [UNRECOGNIZED DRUG - REMARK] SCH ×2 (08:49→15:07)
[2018-08-31] MEDS ORDERED: POTASSIUM PHOSPHATE 24 MMOL in SODIUM CHLORIDE 0.9% 500 ML IV ONE (09:00)
[2018-08-31] MEDS: PIPERACILLIN/TAZOBACTAM 3.375 GM in DEXTROSE 5% 100 ML IV SCH ×3 (09:48→23:45)
[2018-08-31] MEDS: CITALOPRAM 20 MG TAB PO SCH (09:52)
[2018-08-31] MEDS: NYSTATIN SUSP 500,000 U/5 ML UDC PO SCH ×4 (09:53→21:17)
[2018-08-31] MEDS: FAMOTIDINE 20 MG TAB PO SCH ×2 (09:53→21:16)
[2018-08-31] MEDS: NICOTINE 21 MG/24 HR TDSY TD SCH (09:53)
--- NOTE | 2018-08-31 09:59 | Pharmacy Report ---
Glycemic Control Progress Note - Date of Service August 31, 2018 - Scope Glycemic Pharmacist consulted for glycemic control to write orders per [facility] inpatient glycemic control protocol. - Objective Accuchecks BSG(last 24 hours):: 08/30/18 08/30/18 08/30/18 11:45 16:00 16:20 Glucose 124 H POC Glucose 219 H 142 H 08/30/18 08/31/18 08/31/18 20:51 03:50 07:08 Glucose 148 H POC Glucose 122 H 158 H HbA1c:: Hemoglobin A1c 7.5 % (4.5-5.6) H 08/26/18 06:20 - Recent Pertinent Medications The patient is currently receiving: * Basal insulin: Lantus 5 units every 24 hours * Correctional Insulin: Novolog Correction per scale ACHS Goal Range: Low 140 mg/dL - High 180 mg/dL Correction Factor: 40 mg/dL/unit * Prandial insulin: Per carb ratio of 1 unit per 22 grams CHO consumed - Outpatient Anti-Diabetic Meds Tresiba 21 units HS - Assessment & Plan ASSESSMENT: * See progress note from 08/25/18 for more background info, in short: * Pt receiving SQ basal bolus insulin regimen for hyperglycemia secondary to baseline DM (outpatient regimen on hold),stress (currently has stage 4 testicular cancer just finished round of chemotherapy), and type 1 diabetic diet. Patient is continued on a dextrose 10% infusion titrated to blood sugars. This is currently running at 60-80 mL/hr. * Patient is currently receiving an average of 14 units of insulin per day * 5 units of basal insulin * 9 units of prandial/correctional insulin * BSGs ranging 122 - 219 mg/dl over the past 24hrs * Changes needed to insulin regimen: * AM Fasting BSG = 158 mg/dl. This is within goal range for patient based on inpatient targets and co-morbidities. Therefore Basal insulin will be continued with dextrose infusion to prevent metabolic complications. * Post-prandial BSGs are in range therefore no changes needed to CF/CR. Patient had a blood sugar over 200 mg/dL yesterday but that was due to Lantus being held on Saturday. * Total daily dose = <10 units/day. * Additional notes / comments: Continue dextrose infusion while PO intake is decreased. While it does appear patient has increased diet, will continue infusion to prevent any metabolic complications as patient received extra 150 grams of dextrose yesterday and blood sugars were well maintained. PLAN FOR INPATIENT GLYCEMIC CONTROL: * Continuing Lantus 5 units SQ daily * Continuing correction factor of 40 mg/dl/unit * Continuing carb ratio of 1 unit per 22 grams CHO consumed * Continuing goal range to Low 140 mg/dL - High 180 mg/dL RECOMMENDATIONS FOR DISCHARGE: * Will not provide recommendations at this point due to the patient's unstable condition. * Please note that the plan above was derived based on current level of insulin resistance and hospital stress. These recommendations are appropriate for inpatient admission only. Plan of care upon discharge will need to be reassessed to avoid potential outpatient hypo/hyperglycemia. Thank you.
--- NOTE | 2018-08-31 10:00 | Hospitalist Progress Note ---
Date of Service August 31, 2018 Assessment & Plan (1) Chest pain: 2 nights in a row with such. EKGs stable. Possibilities include due to pneumonia vs effusions/edema vs pleuritic vs pericardial vs due to lymphadenopathy vs GI vs other. CTA chest on 08/25 w/o obvious PE and dopplers of legs w/o DVT on most recent check. This am on physical exam his lungs were quite course with crackles. Will repeat the cxr, 2 view, now. Consider echo to r/o pericardial effusion although no obvious one was seen on recent CT chest. (2) Thrombocytopenia: severe, 2nd to chemotherapy given earlier this month. platelets today 13 - defer on transfusion today (no active bleeding, no procedure planned today). he is in need of a therapeutic paracentesis and, if platelets are still low tomorrow, will likely need platelet infusion at that time. continue to monitor. (3) Neutropenia: resolved s/p several doses of neupogen. the neutropenia was due to recent chemo administration. can hold today's neupogen. daily CBC. (4) Pancytopenia due to antineoplastic chemotherapy: H/H stable. WBC and neutrophils trending up. platelets still severely low - see above. daily CBC. (5) Acute respiratory failure with hypoxia: resolved. 2nd to presumed gram negative pneumonia. effusions/edema may have contributed as well. (6) Hospital acquired PNA: clinically stable although lung exam very abnormal. day #7 of levaquin, zosyn, and vancomycin to cover for gram negatives/MRSA/etc. he is day #5 of caspofungin. will d/c levaquin/zosyn/vanco today as long as repeat cxr is stable. would complete 7 days of caspofungin. (7) Urinary retention: suspect multifactorial including scrotal edema, compression from severe ascites/carcinomatosis, etc. s/p molina insertion last night. will leave at least for 5-7 days. (8) Abdominal pain: multifactorial - malignant ascites, ileus, carcinomatosis, etc. narcotics had been cut back earlier this stay due to excess sedation. he is now having worsening abd pain. leave morphine as is for now. add dilaudid 0.5mg IV q3h prn. therapeutic/diagnostic paracentesis planned for tomorrow depending on platelet count. ultrasound-guided is safest in light of ileus. (9) Testicular cancer: stage 4. progressive. s/p chemo on 08/21. complicated by pancytopenia, pneumonia, other issues as noted in this progress note. [facility] locally and [facility] in [place]. recent CT scans noted w/ respect to tumor burden. (10) Ascites: plan for diagnostic/therapeutic paracentesis tomorrow in radiology if platelet count is acceptable. will likely need platelet infusion tomorrow for such. please send cell counts to r/o SBP. diuretics will not help the ascites since it is malignant ascites. Present on Admission?: Yes (11) Type 1 diabetes mellitus with hypoglycemia: pharmacy managing. is on low rate dextrose infusion to help maintain euglycemia. defer management of insulin to pharmacy. if appetite improves today will try to stop the dextrose infusion given his volume overloaded state. no further hypoglycemia fortunately. (12) Hypophosphatemia: give additional K-phos today 24mmol x 1 repeat phos level am (13) Hypokalemia: PO + IV supplementation slowly improving repeat lytes later today (14) Hypomagnesemia: replace with IV mag repeat level later today (15) Severe protein-calorie malnutrition: continue boost glucose control as tolerated is on marinol for appetite stimulation (16) Chronic pain syndrome: cont morphine BID add dilaudid 0.5mg IV q3h prn adjust as needed for optimal comfort palliative care team has been involved with his care as well (17) Ileus: probably multifactorial including low K and low mag, compression from carcinomatosis (remains at high risk of SBO), poor ambulation, etc. he IS passing flatus/stool watch carefully for any worsening to suggest SBO development or even colonic obstruction (recent CT with splenic flexture narrowing) (18) DVT prophylaxis: chemical means contraindicated thus -- SCDs Subjective Pt had another episode of chest discomfort last pm. States it is worst when standing up. It is somewhat pleuritic. He has minimal cough. No dyspnea at rest but has LEPE. Denies nausea/emesis. No fever. Continues with mild abdominal pain. Passing flatus and stool. Had difficulty voiding again last pm with significant urinary retention. Molina was placed. He felt better following molina placement. Appetite is fair at best. Tele stable overnight including about the time he had the chest discomfort. Constitutional: + fatigue and + anorexia; no fever and no chills Ear, Nose, Mouth, Throat: no mouth lesions Respiratory: + cough, + dyspnea on exertion and + pain on inspiration; no chest congestion, no dyspnea, no hemoptysis, no sputum production and no wheezing Cardiovascular: as per Subjective / HPI and + chest pain; no orthopnea, no paroxysmal nocturnal dyspnea and no palpitations Gastrointestinal: + abdominal pain; no nausea, no vomiting and no constipation Genitourinary (Male): + difficulty urinating Physical Exam 2 Vital Signs (Past 24 Hours): Last Vital Signs Temp 36.9 C 08/31/18 06:56 Pulse 72 08/31/18 06:56 Resp 16 08/31/18 06:56 BP 116/73 08/31/18 06:56 Pulse Ox 94 08/31/18 06:56 Constitutional: + ill appearing, + thin and + cachectic; no acute distress and no altered mental status ENMT: external ear and nose normal, oropharynx normal Neck: trachea midline, no thyromegaly Respiratory: no respiratory distress, no labored breathing, no retractions and does not use accessory muscles Auscultation: + diminished lung sounds ( bases, worse on right) and + crackles (right base); no wheezes Cardiovascular: Rate/Rhythm: regular rate and regular rhythm Heart Sounds: normal S1 and normal S2; no murmur Vessels: posterior tibial pulses present and dorsalis pedis pulses present; no JVD Extremities: + edema (3+ b/l to the knees) Gastrointestinal (Abdomen): Inspection/Auscultation: + abdomen distended ( with mod-severe ascites and/or gas); + abnormal bowel sounds (high pitched) Percussion/Palpation: + abdomen tender (very mild, in various locations); no hepatosplenomegaly Skin: mild pallor; central port left upper chest clean Psychiatric: A+Ox3, euthymic affect Genitourinary: molina in place Results & Data Laboratory Results Laboratory Results - last 24 hr 08/28/18 08/30/18 08/30/18 08:34 04:31 11:45 WBC RBC Hgb Hct MCV MCH MCHC RDW Std Deviation RDW Coeff of Zuleima Plt Count Immature Gran % (Auto) Neut % (Auto) Lymph % (Auto) [place] % (Auto) Eos % (Auto) Baso % (Auto) Immature Gran # (Auto) Neut # (Auto) Lymph # (Auto) [place] # (Auto) Eos # (Auto) Baso # (Auto) Hypogranular Neuts Dohle Bodies 1+ Platelet Estimate Sodium Potassium Chloride Carbon Dioxide Anion Gap BUN Creatinine Est Cr Clr Drug Dosing Est GFR ( Amer) Est GFR (Non-Af Amer) BUN/Creatinine Ratio Glucose POC Glucose 219 H Calcium Phosphorus Magnesium Albumin Vancomycin Trough Blood Type O Negative Antibody Screen NEGATIVE Crossmatch See Detail 08/30/18 08/30/18 08/30/18 16:00 16:20 20:51 WBC RBC Hgb Hct MCV MCH MCHC RDW Std Deviation RDW Coeff of Zuleima Plt Count Immature Gran % (Auto) Neut % (Auto) Lymph % (Auto) [place] % (Auto) Eos % (Auto) Baso % (Auto) Immature Gran # (Auto) Neut # (Auto) Lymph # (Auto) [place] # (Auto) Eos # (Auto) Baso # (Auto) Hypogranular Neuts Dohle Bodies Platelet Estimate Sodium 137 Potassium 2.9 L Chloride 103 Carbon Dioxide 24 Anion Gap 10.0 BUN 27 H Creatinine 1.14 Est Cr Clr Drug Dosing 103.9 Est GFR ( Amer) 102.3 Est GFR (Non-Af Amer) 88.3 BUN/Creatinine Ratio 23.6 H Glucose 124 H POC Glucose 142 H 122 H Calcium 7.3 L Phosphorus Magnesium Albumin Vancomycin Trough Blood Type Antibody Screen Crossmatch 08/31/18 08/31/18 08/31/18 03:50 03:50 03:50 WBC 3.39 L RBC 3.91 L Hgb 9.7 L Hct 29.4 L MCV 75.2 L MCH 24.8 L MCHC 33.0 RDW Std Deviation 47.3 H RDW Coeff of Zuleima 17.1 H Plt Count 13 L* Immature Gran % (Auto) 6.8 Neut % (Auto) 77.0 Lymph % (Auto) 13.0 [place] % (Auto) 2.9 Eos % (Auto) 0.0 Baso % (Auto) 0.3 Immature Gran # (Auto) 0.23 H Neut # (Auto) 2.61 Lymph # (Auto) 0.44 L [place] # (Auto) 0.10 L Eos # (Auto) 0.00 Baso # (Auto) 0.01 Hypogranular Neuts 3+ Dohle Bodies 2+ Platelet Estimate SIGNIFIC DECREASED Sodium 135 L Potassium 3.0 L Chloride 104 Carbon Dioxide 24 Anion Gap 7.0 BUN 23 H Creatinine 1.07 Est Cr Clr Drug Dosing 110.7 Est GFR ( Amer) 110.5 Est GFR (Non-Af Amer) 95.3 BUN/Creatinine Ratio 21.7 H Glucose 148 H POC Glucose Calcium 7.4 L Phosphorus 1.8 L Magnesium 1.7 L Albumin 1.5 L Vancomycin Trough 20.8 Blood Type Antibody Screen Crossmatch 08/31/18 07:08 WBC RBC Hgb Hct MCV MCH MCHC RDW Std Deviation RDW Coeff of Zuleima Plt Count Immature Gran % (Auto) Neut % (Auto) Lymph % (Auto) [place] % (Auto) Eos % (Auto) Baso % (Auto) Immature Gran # (Auto) Neut # (Auto) Lymph # (Auto) [place] # (Auto) Eos # (Auto) Baso # (Auto) Hypogranular Neuts Dohle Bodies Platelet Estimate Sodium Potassium Chloride Carbon Dioxide Anion Gap BUN Creatinine Est Cr Clr Drug Dosing Est GFR ( Amer) Est GFR (Non-Af Amer) BUN/Creatinine Ratio Glucose POC Glucose 158 H Calcium Phosphorus Magnesium Albumin Vancomycin Trough Blood Type Antibody Screen Crossmatch Diagnostic Findings EKG - my reading - considerable artifact; however, NSR, no ST changes, no low voltate _ (1) Chest pain Chest pain type: unspecified Qualified Code(s): R07.9 - Chest pain, unspecified (2) Neutropenia Neutropenia type: secondary to cancer chemotherapy Qualified Code(s): D70.1 - Agranulocytosis secondary to cancer chemotherapy; T45.1X5A - Adverse effect of antineoplastic and immunosuppressive drugs, initial encounter (3) Abdominal pain Abdominal location: generalized Qualified Code(s): R10.84 - Generalized abdominal pain (4) Testicular cancer Descendance of testis: descended Laterality: left Qualified Code(s): C62.12 - Malignant neoplasm of descended left testis (5) Ascites Ascites type: malignant Qualified Code(s): R18.0 - Malignant ascites (6) Type 1 diabetes mellitus with hypoglycemia Diabetes mellitus complication detail: without coma Qualified Code(s): E10.649 - Type 1 diabetes mellitus with hypoglycemia without coma
[2018-08-31] MEDS: DRONABINOL 2.5 MG CAP PO SCH ×2 (10:09→21:16)
[2018-08-31] MEDS: MoRPHine SULFATE CR 15 MG TABCR PO SCH ×2 (10:09→19:39)
--- NOTE | 2018-08-31 10:13 | Pharmacy Report ---
Pharmacy Abx Dose Short Note - Date of Service August 31, 2018 - Assessment & Plan Assessment 28 year old M receiving VANCOMYCIN + ZOSYN for treatment of pulm infxn with risk factors for resistance in the setting of pancytopenia, immunocompromise. Both abx are dosed per pharmacy. In addition he is also receiving LEVOFLOXACIN and CAPSOFUNGIN - both dosed by provider Day # 7/ of VANCO/ZOSYN therapy - these abx's will discontinue mid-day tomorrow as we have entered the last 24 hrs of therapy Renal fxn stable WBC recovering and no longer neutropenic Plan Vancomycin * Trough level of 20.8 mcg/mL is slightly supratherapeutic * Change to 1000 mg IV every 20 hours * Goal trough level for pulm infxn : 15 to 20 mcg/mL * If therapy is extended beyond the current stop date w/ recheck a trough level w/ 3rd or 4th new maint dose Zosyn * eCrCl > 20 and BMI < 35, cont 3.375gm ext-infusion Q 8 hrs Pharmacy will continue to follow and will adjust dose/frequency as necessary. Thank you.
[2018-08-31 10:23] LABS: Dohle Bodies 1+
--- NOTE | 2018-08-31 10:33 | XRay Report ---
XR chest 2V routine HISTORY: 28 years-old Male b/l pneumonia, effusions follow up study in a patient with pneumonia and bilateral pleural effusions. History of metastatic testicular cancer. COMPARISON: Chest radiograph 08/29/2018, CTA chest 08/25/2018 TECHNIQUE: Portable AP and lateral views of the chest FINDINGS: Unchanged positioning of left subclavian [id number] catheter. Cardiac silhouette is normal in size . Mild left hemidiaphragm elevation. The lungs are mildly hypoinflated. Trace bilateral pleural effus ions. Improved aeration of the lungs with persistent perihilar and left greater than right bibasilar alveolar opacities. Bones appear grossly intact. IMPRESSION: 1. Improved aeration of the bilateral lungs with persistent bilateral perihilar and left greater than right bibasilar alveolar opacities suggestive of ongoing pneumonia. 2. Trace pleural effusions. 3. Hypoinflation. The above report was generated using voice recognition software. It may contain grammatical, syntax o r spelling errors. Electronically signed by: Juan Huynh M.D. 08/31/2018 10:31 AM
[2018-08-31] MEDS: HYDROmorphone INJ 0.5 MG/0.5 ML SYR IV PRN ×3 (10:45→21:17)
[2018-08-31] MEDS ORDERED: levoFLOXacin 750 MG TAB PO SCH (11:00)
[2018-08-31] MEDS: INSULIN ASPART 100 UNITS/ML 3 ML PEN SC SCH ×4 (11:36→21:32)
[2018-08-31] MEDS: CASPOFUNGIN 50 MG in SODIUM CHLORIDE 0.9% 250 ML IV SCH (13:05)
[2018-08-31 14:24] LABS: Phosphorus 2.6 mg/dl (2.5-4.9)
[2018-08-31] MEDS: HEPARIN 100 UNIT/ML 5ML FLUSH FLUSH PRN (14:59)
[2018-08-31] MEDS: OXYCODONE HCL IR 5 MG TAB (IMMEDIATE RELEASE) PO PRN (14:59)
[2018-08-31 15:11] LABS: Potassium 3.3 mmol/L (3.5-5.1)
[2018-08-31 15:13] LABS: Magnesium 1.8 mg/dl (1.8-2.4)
[2018-08-31] MEDS ORDERED: POTASSIUM CHLORIDE 10 MEQ TABCR PO STA (15:23)
[2018-08-31] MEDS ORDERED: MAGNESIUM SULFATE / D5W 1 GM/100 ML BAG IV ONE (15:45)
[2018-08-31] MEDS ORDERED: FUROSEMIDE 20 MG TAB PO ONE (16:11)
[2018-08-31] MEDS: ALPRAZolam 0.25 MG TABLET PO PRN (21:16)
[2018-08-31] MEDS: MAGNESIUM OXIDE 400 MG TAB PO SCH (21:18)
[2018-09-01] MEDS ORDERED: VANCOMYCIN HCL 1,000 MG in SODIUM CHLORIDE 0.9% 250 ML IV SCH (02:00)
[2018-09-01] MEDS: DEXAMETHASONE CONC 3.75 MG, NYSTATIN 30 ML, DiphenhydrAMINE Syrup 300 MG, ORA-SWEET SYR... PO SCH ×6 (02:52→22:40)
[2018-09-01] MEDS: HYDROmorphone INJ 0.5 MG/0.5 ML SYR IV PRN ×2 (04:33→21:43)
[2018-09-01 06:43] LABS: BUN Creatinine Ratio 21.2 (10-20); Calcium 7.6 mg/dl (8.5-10.1); Creatinine Clr Calc Pharmacy 126.3 ml/min; Est GFR (African American) 127.5; Magnesium 1.9 mg/dl (1.8-2.4); Potassium 3.3 mmol/L (3.5-5.1)
[2018-09-01 06:45] LABS: Hematocrit (blood only) 30.7 % (42-52); Hemoglobin 10.2 g/dL (14.0-18.0); Mean Corpuscular Hgb Conc 33.2 g/dL (32-36); Platelet Count 12 K/uL (130-400); RDW Coefficient of Variation 17.4 % (11.5-14.5); RDW Standard Deviation 49.3 fL (36.4-46.3); Red Blood Count 4.04 M/uL (4.7-6.1); White Blood Count 6.66 K/uL (4.8-10.8)
[2018-09-01 06:54] LABS: Basophils # (auto) 0.02 K/uL (0-0.2); Basophils % (auto) 0.3 %; Eosinophils # (auto) 0.01 K/uL (0-0.5); Eosinophils % (auto) 0.2 %; Immature Granulocytes # (auto) 0.58 K/uL (0.00-0.02); Immature Granulocytes % (auto) 8.7 %; Lymphocytes # (auto) 0.72 K/uL (1.2-3.4); Lymphocytes % (auto) 10.8 %; Monocytes # (auto) 0.56 K/uL (0.11-0.59); Monocytes % (auto) 8.4 %; Neutrophils # (auto) 4.77 K/uL (1.4-6.5); Neutrophils % (auto) 71.6 %
[2018-09-01] MEDS ORDERED: POTASSIUM CHLORIDE 10 MEQ TABCR PO ONE (08:30)
[2018-09-01] MEDS: PIPERACILLIN/TAZOBACTAM 3.375 GM in DEXTROSE 5% 100 ML IV SCH (08:53)
[2018-09-01] MEDS: INSULIN GLARGINE SOLOSTAR 100 UNITS/ML 3 ML PEN SC SCH (08:54)
[2018-09-01] MEDS: INSULIN ASPART 100 UNITS/ML 3 ML PEN SC SCH ×4 (08:55→20:52)
[2018-09-01] MEDS: NYSTATIN SUSP 500,000 U/5 ML UDC PO SCH ×4 (08:56→20:01)
[2018-09-01] MEDS: CITALOPRAM 20 MG TAB PO SCH (08:57)
[2018-09-01] MEDS: FAMOTIDINE 20 MG TAB PO SCH ×2 (08:59→20:01)
[2018-09-01] MEDS: MoRPHine SULFATE CR 15 MG TABCR PO SCH ×3 (08:59→22:40)
[2018-09-01] MEDS: NICOTINE 21 MG/24 HR TDSY TD SCH (09:00)
[2018-09-01] MEDS: POTASSIUM CHLORIDE PWD 20 MEQ PACK PO SCH ×2 (09:01→20:01)
[2018-09-01] MEDS: DRONABINOL 2.5 MG CAP PO SCH ×2 (09:04→20:13)
--- NOTE | 2018-09-01 09:15 | Hematology/Oncology Prog Note ---
Date of Service September 01, 2018 Assessment & Plan (1) Testicular cancer: Mr. Leigh is getting better. His WBCs have recovered, which should help him resolve his infectious issues. His abdomen also feels softer than the last time I saw him, though I still agree with evaluation for possible therapeutic paracentesis. He will need a platelet transfusion before such a procedure, as his platelets are still low. He is also still in pain and is requesting IV pain medications. We discussed that, while he may feel the oral drugs do not work as quickly as he would like, our focus should be on finding a regimen that he can go home with. Otherwise, I am optimistic that he is headed in the right direction. Subjective Vish was more awake this morning. He was sitting up and eating breakfast. He looked the best I've seen him since the start of his admission. He still feels bloated but is eating better. He is in less pain today, but he is still requiring IV pain medication. Some of that is preference, however, as he likes the faster onset of the IV narcotics. He is breathing more comfortably. Constitutional: + fatigue and + weakness; no fever Respiratory: no cough and no dyspnea Cardiovascular: + edema (see HPI); no chest pain and no palpitations Gastrointestinal: + abdominal pain and + bloating; no diarrhea/loose stools Genitourinary (Male): + difficulty urinating and + urinary hesitancy Musculoskeletal: + muscle weakness (generalized); no back pain Neurologic: no headache(s) Physical Exam 2 Vital Signs (Past 24 Hours): Last Vital Signs Temp 36.6 C 09/01/18 07:48 Pulse 77 09/01/18 07:48 Resp 14 09/01/18 07:48 BP 109/78 09/01/18 07:48 Pulse Ox 90 09/01/18 07:48 Constitutional: + ill appearing (chronically) and comfortable; no acute distress ENMT: external ear and nose normal, oropharynx normal Respiratory: normal respiratory effort Auscultation: + diminished lung sounds (at both bases) Cardiovascular: Rate/Rhythm: regular rate and + tachycardic Extremities: + pedal edema (2+ edema bilaterally) Gastrointestinal (Abdomen): Inspection/Auscultation: + abdomen distended and normal bowel sounds Percussion/Palpation: abdomen soft (softer than the last time I saw him); abdomen nontender and no guarding Psychiatric: A+Ox3, euthymic affect Lymphatic: no cervical or axillary lymphadenopathy Results & Data Laboratory Results Short CBC 09/01/18 Range/Units 05:59 WBC 6.66 (4.8-10.8) K/uL Hgb 10.2 L (14.0-18.0) g/dL Hct 30.7 L (42-52) % Plt Count 12 L* (130-400) K/uL BMP 08/31/18 08/31/18 09/01/18 13:54 14:49 05:59 Sodium 133 L Potassium 3.3 L 3.3 L Chloride 101 Carbon Dioxide 28 BUN 20 H Creatinine 0.95 Glucose 160 H Calcium 7.6 L Diagnostic Findings CXR, 08/31/18: IMPRESSION: 1. Improved aeration of the bilateral lungs with persistent bilateral perihilar and left greater than right bibasilar alveolar opacities suggestive of ongoing pneumonia. 2. Trace pleural effusions. 3. Hypoinflation. _ (1) Testicular cancer Descendance of testis: descended Laterality: left Qualified Code(s): C62.12 - Malignant neoplasm of descended left testis
[2018-09-01] MEDS: OXYCODONE HCL IR 5 MG TAB (IMMEDIATE RELEASE) PO PRN ×2 (11:53→20:00)
[2018-09-01] MEDS: ALPRAZolam 0.25 MG TABLET PO PRN (11:53)
[2018-09-01] MEDS: MAGNESIUM OXIDE 400 MG TAB PO SCH ×2 (11:54→20:02)
--- NOTE | 2018-09-01 13:40 | Palliative Care Progress Note ---
Date of Service September 01, 2018 Assessment & Plan (1) Palliative care encounter: Patient is a 28-year-old male with metastatic testicular cancer diagnosed in June 2017. 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 Patient's alpha-fetoprotein remained elevated after resection-in August 2017 CT scan showed large retroperitoneal mass involving the left ureter and aorta. Patient underwent chemo from September through December-on 01/29 he underwent surgical resection of the mass-fianc reports that they were told it was removed completely. Patient was lost to follow-up until this August when he presented with an enlarged abdomen and lower extremity edema. CT scan done on 07/23 showed mediastinal adenopathy as well as paratracheal, avascular necrosis of the left hip, right kidney infarct with scarring, large multiple masses in the omentum and mesentery, pelvic mass 8.5 cm, a 2.3 cm left inguinal mass and lesions abutting the liver. CT scan performed on 08/22 showed large amount of ascites-patient underwent paracentesis for 5 L of fluid. . Patient has signed paperwork naming his flacoance as his POA-fianc has asked that his parents not be informed of this change. Patient will need to decide where he wishes to live and continue chemotherapy-either at home with his parents or in the [facility] with his [place] family. There is significant family dynamics affecting patient's decision. -CODE STATUS is currently a FULL CODE. Patient with some increased discomfort-on MS Contin 30 mg twice daily, patient required 3 doses of IV Dilaudid at 0.5 mg yesterday-this translate to approximately 30 mg of p.o. morphine. Will increase his MS Contin to 30 mg 3 times daily, continue as needed oxycodone as needed. Discussed with patient taking p.o. rather than IV pain medications to facilitate his discharge home. Patient's white count has increased to 6.6, hemoglobin stable at 10.2, platelets only 12K. Patient denies any signs or symptoms of bleeding, he did need to have the Coates reinserted due to urinary retention. Patient, prior to admission, was having intermittent cath 2-3 times a day. Discussed with patient at length that he needs to decide what is best for him whether to continue to receive care here or transfer care to the [facility]. Discussed that he needs to do what is best for him despite what other family members think is best. (2) Abdominal pain: Due to advanced metastatic disease-increase MS Contin to 30 mg Q 8h Pain decreases after paracentesis (3) Testicular cancer: -Patient receiving aggressive chemo-plan is to continue with aggressive chemo and aggressive treatment of his bilateral basilar infiltrate -Further plans per oncology -Patient needs to decide where he would like to continue his care-either here or in the [place] area (4) Abdominal distention: -Status post paracentesis of 5 L-Now abdominal distention increasing -Patient's abdominal pain well controlled-no plan paracentesis per patient (5) Anxiety: - Continue as needed Xanax at decreased dose of 0.25 mg every 12 hours as needed -last dose required was on 08/28, well controlled with as needed Xanax (6) Urinary retention: Patient needed to have Coates catheter reinserted, patient has had intermittent cath several times a day prior to this admission (7) Edema: Lower extremity and scrotal edema markedly improved-continue to monitor Subjective Patient much more awake and alert on exam today. Patient's fianc at bedside Patient with some increased discomfort-on MS Contin 30 mg twice daily, patient required 3 doses of IV Dilaudid at 0.5 mg yesterday-this translate to approximately 30 mg of p.o. morphine. Will increase his MS Contin to 30 mg 3 times daily, continue as needed oxycodone as needed. Discussed with patient taking p.o. rather than IV pain medications to facilitate his discharge home. Patient's white count has increased to 6.6, hemoglobin stable at 10.2, platelets only 12K. Patient denies any signs or symptoms of bleeding, he did need to have the Coates reinserted due to urinary retention. Patient, prior to admission, was having intermittent cath 2-3 times a day. Patient denies fever, chills, chest pain, increased shortness of breath, or GI issues. Patient's respiratory status has improved-now on room air. Discussed with patient at length that he needs to decide what is best for him whether to continue to receive care here or transfer care to the [place] area. Discussed that he needs to do what is best for him despite what other family members think is best. Review of Systems All systems reviewed & are unremarkable except as noted in HPI & below Physical Exam 2 Vital Signs (Past 24 Hours): Last Vital Signs Temp 36.7 C 12/31/18 11:42 Pulse 103 H 09/01/18 11:42 Resp 22 09/01/18 11:42 BP 116/77 09/01/18 11:42 Pulse Ox 95 09/01/18 11:42 Constitutional: NAD, more alert Eyes: EOMI ENMT: Normal hearing Neck: Supple Respiratory: Unlabored, on room air Cardiovascular: Regular rate, lower extremity edema stable-pitting edema to the level of the knee Gastrointestinal (Abdomen): Distended, positive ascites, nontender with light palpation Musculoskeletal: Full range of motion, able to ambulate to the bathroom Skin: No increased pallor Neurologic: Alert and oriented Psychiatric: Behavior appropriate Genitourinary: Coates catheter in place Time Spent Attending Total time spent 35 minutes with greater than 50% of the time spent at bedside discussing goals for pain management, medication adjustments, as well as goals of care _ (1) Abdominal pain Abdominal location: generalized Qualified Code(s): R10.84 - Generalized abdominal pain (2) Testicular cancer Descendance of testis: descended Laterality: left Qualified Code(s): C62.12 - Malignant neoplasm of descended left testis
[2018-09-01] MEDS: CASPOFUNGIN 50 MG in SODIUM CHLORIDE 0.9% 250 ML IV SCH (13:50)
--- NOTE | 2018-09-01 15:58 | Hospitalist Progress Note ---
Date of Service September 01, 2018 Assessment & Plan (1) Chest pain: (2) Thrombocytopenia: (3) Neutropenia: (4) Pancytopenia due to antineoplastic chemotherapy: (5) Acute respiratory failure with hypoxia: (6) Hospital acquired PNA: (7) Urinary retention: (8) Abdominal pain: (9) Testicular cancer: (10) Ascites: (11) Type 1 diabetes mellitus with hypoglycemia: (12) Hypophosphatemia: (13) Hypokalemia: (14) Hypomagnesemia: (15) Severe protein-calorie malnutrition: (16) Chronic pain syndrome: (17) Ileus: (18) DVT prophylaxis: 28-year-old white male admitted on August 17, 2018 because of testis cancer and abdominal distention likely from cancer metastases, he was admitted on August 16, 2018 for the same condition but he was eloped on the day of admission, he has been agreeable to stay and started chemo therapy, Testicular cancer with metastasis, with distended abdomen possible his cancer disease Oncology And palliative care serviceinput appreciated, Continue pain control, Patient admitted all feel to be drained of the ascites for today,And his platelet level is at 12,000,Want to avoid this procedure for now Patient is on Coates catheter, which was placed 2 days ago, he has urinary retention,We will removed Coates catheter possible tomorrow if platelet level improving, We will give him chance to urination by himself Possible pneumonia is on vancomycin and Zosyn, has been totally 7 days of vancomycin, which will be discontinued today, We will continue Zosyn for 3 days more Chest pain possible atypical chest pain, generally chest pain is somehow Better controlled, don't Believe need to have further evaluation for the Neutropenic/anemic, Neutropenic resolved, Thrombocytopenia, platelet level is 12 from 13 yesterday, Chronic kidney disease stage 2, GFR 60-89 ml/min: Severe abdominal distention/pain and scrotal pain: See below 3+ edema and scrotal edema, likely because of hypoalbuminemia , Encourage out of bed to chair, control, encourage eating and drinking, if thrombocytopenia is getting better may discharge in 1 or 2 days,We will also try to remove Coates catheter for him to voiding by himself tomorrow Possible ileus, patient has passing gas and had bowel movement today, will continue follow-up Subjective Happy and generally feeling better, report "pain controlled', Fianc in the bedside, eating okay, passing a lot of gas, has 2 bowel movement, Abdominal distention, with abd pain Eating okay, Some dry cough no sputum, no wheezing, Report chest pain after eating, come and goes, lasting 5-10 minutes,No chest pain when I seeing him Physical Exam 2 Vital Signs (Past 24 Hours): Last Vital Signs Temp 36.7 C 09/01/18 11:42 Pulse 103 H 09/01/18 11:42 Resp 22 09/01/18 11:42 BP 116/77 09/01/18 11:42 Pulse Ox 95 09/01/18 11:42 Physical Exam: Constitutional: Frail, Week,+ ill appearing (chronically) and Looks, comfortable; no acute distress ENMT: external ear and nose normal, oropharynx normal Respiratory; Mild decreased breathing sounds,No wheezing,normal respiratory effort Cardiovascular: regular rate and + tachycardic Extremities: + pedal edema (3+ edema bilaterally) Gastrointestinal: + abdomen distended Moderate distended, abdomen nontender and no guarding Psychiatric A+Ox3, euthymic affect Lymphatic no cervical or axillary lymphadenopathy Results & Data Laboratory Results Laboratory Results - last 24 hr 08/31/18 08/31/18 09/01/18 16:28 20:25 05:59 WBC 6.66 RBC 4.04 L Hgb 10.2 L Hct 30.7 L MCV 76.0 L MCH 25.2 MCHC 33.2 RDW Std Deviation 49.3 H RDW Coeff of Zuleima 17.4 H Plt Count 12 L* Immature Gran % (Auto) 8.7 Neut % (Auto) 71.6 Lymph % (Auto) 10.8 [place] % (Auto) 8.4 Eos % (Auto) 0.2 Baso % (Auto) 0.3 Immature Gran # (Auto) 0.58 H Neut # (Auto) 4.77 Lymph # (Auto) 0.72 L [place] # (Auto) 0.56 Eos # (Auto) 0.01 Baso # (Auto) 0.02 Platelet Estimate SIGNIFIC DECREASED Sodium Potassium Chloride Carbon Dioxide Anion Gap BUN Creatinine Est Cr Clr Drug Dosing Est GFR ( Amer) Est GFR (Non-Af Amer) BUN/Creatinine Ratio Glucose POC Glucose 176 H 155 H Calcium Magnesium 09/01/18 09/01/18 09/01/18 05:59 07:35 11:40 WBC RBC Hgb Hct MCV MCH MCHC RDW Std Deviation RDW Coeff of Zuleima Plt Count Immature Gran % (Auto) Neut % (Auto) Lymph % (Auto) [place] % (Auto) Eos % (Auto) Baso % (Auto) Immature Gran # (Auto) Neut # (Auto) Lymph # (Auto) [place] # (Auto) Eos # (Auto) Baso # (Auto) Platelet Estimate Sodium 133 L Potassium 3.3 L Chloride 101 Carbon Dioxide 28 Anion Gap 5.0 BUN 20 H Creatinine 0.95 Est Cr Clr Drug Dosing 126.3 Est GFR ( Amer) 127.5 Est GFR (Non-Af Amer) 110.0 BUN/Creatinine Ratio 21.2 H Glucose 160 H POC Glucose 163 H 195 H Calcium 7.6 L Magnesium 1.9 _ (1) Chest pain Chest pain type: unspecified Ischemic chest pain type: Qualified Code(s): R07.9 - Chest pain, unspecified (2) Neutropenia Neutropenia type: secondary to cancer chemotherapy Qualified Code(s): D70.1 - Agranulocytosis secondary to cancer chemotherapy; T45.1X5A - Adverse effect of antineoplastic and immunosuppressive drugs, initial encounter (3) Abdominal pain Abdominal location: generalized Qualified Code(s): R10.84 - Generalized abdominal pain (4) Testicular cancer Descendance of testis: descended Laterality: left Qualified Code(s): C62.12 - Malignant neoplasm of descended left testis (5) Ascites Ascites type: malignant Qualified Code(s): R18.0 - Malignant ascites (6) Type 1 diabetes mellitus with hypoglycemia Diabetes mellitus complication detail: without coma Qualified Code(s): E10.649 - Type 1 diabetes mellitus with hypoglycemia without coma
[2018-09-02] MEDS: DEXAMETHASONE CONC 3.75 MG, NYSTATIN 30 ML, DiphenhydrAMINE Syrup 300 MG, ORA-SWEET SYR... PO SCH ×6 (01:31→21:58)
[2018-09-02] MEDS: OXYCODONE HCL IR 5 MG TAB (IMMEDIATE RELEASE) PO PRN ×2 (03:56→15:23)
[2018-09-02 04:52] LABS: BUN Creatinine Ratio 23.6 (10-20); Calcium 7.3 mg/dl (8.5-10.1); Creatinine Clr Calc Pharmacy 133.4 ml/min; Est GFR (African American) 136.1; Est GFR (Non-African American) 117.5; Magnesium 1.6 mg/dl (1.8-2.4); Potassium 3.5 mmol/L (3.5-5.1)
[2018-09-02 04:53] LABS: Phosphorus 1.9 mg/dl (2.5-4.9)
[2018-09-02 05:01] LABS: Hematocrit (blood only) 29.5 % (42-52); Hemoglobin 9.9 g/dL (14.0-18.0); Mean Corpuscular Hgb Conc 33.6 g/dL (32-36); Mean Corpuscular Volume 76.4 fL (80-100); Platelet Count 14 K/uL (130-400); RDW Coefficient of Variation 17.7 % (11.5-14.5); Red Blood Count 3.86 M/uL (4.7-6.1); White Blood Count 8.45 K/uL (4.8-10.8)
[2018-09-02 05:02] LABS: Basophils # (auto) 0.03 K/uL (0-0.2); Basophils % (auto) 0.4 %; Dohle Bodies 1+; Eosinophils # (auto) 0.02 K/uL (0-0.5); Eosinophils % (auto) 0.2 %; Hypogranular Neutrophils 1+; Immature Granulocytes # (auto) 0.35 K/uL (0.00-0.02); Immature Granulocytes % (auto) 4.1 %; Lymphocytes # (auto) 1.03 K/uL (1.2-3.4); Lymphocytes % (auto) 12.2 %; Monocytes # (auto) 1.18 K/uL (0.11-0.59); Neutrophils # (auto) 5.84 K/uL (1.4-6.5); Neutrophils % (auto) 69.1 %
[2018-09-02] MEDS: MoRPHine SULFATE CR 15 MG TABCR PO SCH ×3 (05:30→21:57)
[2018-09-02] MEDS ORDERED: MAGNESIUM SULFATE / D5W 1 GM/100 ML BAG IV ONE (08:00)
[2018-09-02] MEDS: CITALOPRAM 20 MG TAB PO SCH (08:06)
[2018-09-02] MEDS: NYSTATIN SUSP 500,000 U/5 ML UDC PO SCH ×4 (08:06→21:58)
[2018-09-02] MEDS: MAGNESIUM OXIDE 400 MG TAB PO SCH ×2 (08:08→21:58)
[2018-09-02] MEDS: NICOTINE 21 MG/24 HR TDSY TD SCH (08:08)
[2018-09-02] MEDS: FAMOTIDINE 20 MG TAB PO SCH ×2 (08:09→21:58)
[2018-09-02] MEDS: INSULIN GLARGINE SOLOSTAR 100 UNITS/ML 3 ML PEN SC SCH (08:10)
[2018-09-02] MEDS: POTASSIUM CHLORIDE PWD 20 MEQ PACK PO SCH (08:10)
[2018-09-02] MEDS: INSULIN ASPART 100 UNITS/ML 3 ML PEN SC SCH ×4 (08:14→21:13)
[2018-09-02] MEDS: DRONABINOL 2.5 MG CAP PO SCH ×2 (08:23→21:56)
[2018-09-02] MEDS: HYDROmorphone INJ 0.5 MG/0.5 ML SYR IV PRN ×2 (08:24→19:51)
[2018-09-02] MEDS ORDERED: Nursing to Pharmacy Communication ONE (12:54)
[2018-09-02] MEDS: CASPOFUNGIN 50 MG in SODIUM CHLORIDE 0.9% 250 ML IV SCH (13:31)
--- NOTE | 2018-09-02 14:12 | Pharmacy Report ---
Pharmacy Glycemic Short Note 2 - Date of Service September 02, 2018 - Glycemic Short BSG Results (Last 24 hours): 09/01/18 09/01/18 09/02/18 16:34 20:40 04:20 Glucose 100 H POC Glucose 198 H 159 H 09/02/18 09/02/18 07:32 10:59 Glucose POC Glucose 129 H 320 H ASSESSMENT: * See progress note from 08/25/18 for more background info, in short: * Pt receiving SQ basal bolus insulin regimen for hyperglycemia secondary to baseline DM (outpatient regimen on hold),stress (currently has stage 4 testicular cancer just finished round of chemotherapy), and type 1 diabetic diet. Patient is continued on a dextrose 10% infusion titrated to blood sugars. This is currently running at 60-80 mL/hr. 09-02-18: * Patient received total of 17 units of insulin which has increased from previous days (14 units on 08/30, 10 units on 08/31) * Fasting BSG acceptable this am at 129 mg/dL * Lunchtime BSG elevated today at 320 mg/dL - of note patient had about 107 gms of carbs ; tighten CR * Yesterday BSGs slightly above goal range - slightly adjusted CF PLAN FOR INPATIENT GLYCEMIC CONTROL: * Continuing Lantus 5 units SQ daily * Adjusting correction factor of 35 mg/dl/unit * Continuing carb ratio of 1 unit per 20 grams CHO consumed * Continuing goal range to Low 140 mg/dL - High 180 mg/dL
--- NOTE | 2018-09-02 14:58 | Hospitalist Progress Note ---
Date of Service September 02, 2018 Assessment & Plan (1) Chest pain: (2) Thrombocytopenia: (3) Neutropenia: (4) Pancytopenia due to antineoplastic chemotherapy: (5) Acute respiratory failure with hypoxia: (6) Hospital acquired PNA: (7) Urinary retention: (8) Abdominal pain: (9) Testicular cancer: (10) Ascites: (11) Type 1 diabetes mellitus with hypoglycemia: (12) Hypophosphatemia: (13) Hypokalemia: (14) Hypomagnesemia: (15) Severe protein-calorie malnutrition: (16) Chronic pain syndrome: (17) Ileus: (18) DVT prophylaxis: 28-year-old white male admitted on August 17, 2018 because of testis cancer and abdominal distention likely from cancer metastases, he was admitted on August 16, 2018 for the same condition but he was eloped on the day of admission, and this admission he completed chemo treatment, he had paracentesis of 5 L of fluid was removed. He was having pancytopenia, currently his general condition is improving Testicular cancer with metastasis, with distended abdomen possible his cancer disease Oncology And palliative care serviceinput appreciated, Continue pain control, Patient feels not to be drained of the ascites for today, And his platelet level is at 14 from 12,000, Want to avoid this procedure for now Patient is on Coates catheter, which was placed 3 vdays ago, will DC Coates catheter today Possible pneumonia is on vancomycin and Zosyn, has been totally 7 days of vancomycin, We will continue Zosyn for 1 days more Chest pain possible atypical chest pain, generally chest pain is somehow Better controlled, don't Believe need to have further evaluation for the Neutropenic/anemic, Neutropenic resolved, Thrombocytopenia, improving Chronic kidney disease stage 2, GFR 60-89 ml/min: Severe abdominal distention/pain and scrotal pain: See below 3+ edema and scrotal edema, likely because of hypoalbuminemia , Encourage out of bed to chair, control, encourage eating and drinking, if thrombocytopenia is getting better, may discharge tomorrow, Possible ileus, resolved, will make sure patient on stool softener while on narcotic medication Full code, DVT prophylaxis covered Subjective Happy and generally cont feeling better, report "pain controlled', Fianc in the bedside, eating okay Abdominal distention, with abd pain Eating okay, Some dry cough no sputum, no wheezing, Report chest pain after eating, come and goes, lasting 5-10 minutes,No chest pain when I seeing him Diarrhea constipation, abdominal distention is okay Musculoskeletal: No joint pain, No muscle pain, No swelling, No calf pain, No problem reported : Is on Coates catheter Neurologic: No paralysis, No weakness, No numbness/tingling, Physical Exam 2 Vital Signs (Past 24 Hours): Last Vital Signs Temp 36.8 C 09/02/18 10:57 Pulse 88 09/02/18 10:57 Resp 11 L 09/02/18 07:50 BP 116/78 09/02/18 10:57 Pulse Ox 96 09/02/18 10:57 Physical Exam: Constitutional: Frail, Week,+ ill appearing (chronically) and Looks, comfortable , smiling, no acute distress ENMT: external ear and nose normal, oropharynx normal Respiratory; Mild decreased breathing sounds,No wheezing,normal respiratory effort Cardiovascular: regular rate and + tachycardic Extremities: + pedal edema (3+ edema bilaterally) Gastrointestinal: + abdomen distended Moderate distended, abdomen nontender and no guarding Psychiatric A+Ox3, euthymic affect Lymphatic no cervical or axillary lymphadenopathy Results & Data Laboratory Results Laboratory Results - last 24 hr 09/01/18 09/01/18 09/02/18 16:34 20:40 04:20 WBC 8.45 RBC 3.86 L Hgb 9.9 L Hct 29.5 L MCV 76.4 L MCH 25.6 MCHC 33.6 RDW Std Deviation 50.0 H RDW Coeff of Zuleima 17.7 H Plt Count 14 L* Immature Gran % (Auto) 4.1 Neut % (Auto) 69.1 Lymph % (Auto) 12.2 [place] % (Auto) 14.0 Eos % (Auto) 0.2 Baso % (Auto) 0.4 Immature Gran # (Auto) 0.35 H Neut # (Auto) 5.84 Lymph # (Auto) 1.03 L [place] # (Auto) 1.18 H Eos # (Auto) 0.02 Baso # (Auto) 0.03 Hypogranular Neuts 1+ Dohle Bodies 1+ Platelet Estimate SIGNIFIC DECREASED Sodium Potassium Chloride Carbon Dioxide Anion Gap BUN Creatinine Est Cr Clr Drug Dosing Est GFR ( Amer) Est GFR (Non-Af Amer) BUN/Creatinine Ratio Glucose POC Glucose 198 H 159 H Calcium Phosphorus Magnesium 09/02/18 09/02/18 09/02/18 04:20 07:32 10:59 WBC RBC Hgb Hct MCV MCH MCHC RDW Std Deviation RDW Coeff of Zuleima Plt Count Immature Gran % (Auto) Neut % (Auto) Lymph % (Auto) [place] % (Auto) Eos % (Auto) Baso % (Auto) Immature Gran # (Auto) Neut # (Auto) Lymph # (Auto) [place] # (Auto) Eos # (Auto) Baso # (Auto) Hypogranular Neuts Dohle Bodies Platelet Estimate Sodium 135 L Potassium 3.5 Chloride 101 Carbon Dioxide 30 Anion Gap 4.0 BUN 21 H Creatinine 0.90 Est Cr Clr Drug Dosing 133.4 Est GFR ( Amer) 136.1 Est GFR (Non-Af Amer) 117.5 BUN/Creatinine Ratio 23.6 H Glucose 100 H POC Glucose 129 H 320 H Calcium 7.3 L Phosphorus 1.9 L Magnesium 1.6 L _ (1) Type 1 diabetes mellitus with hypoglycemia Diabetes mellitus complication detail: without coma Qualified Code(s): E10.649 - Type 1 diabetes mellitus with hypoglycemia without coma (2) Testicular cancer Descendance of testis: descended Laterality: left Qualified Code(s): C62.12 - Malignant neoplasm of descended left testis (3) Ascites Ascites type: malignant Qualified Code(s): R18.0 - Malignant ascites (4) Neutropenia Neutropenia type: secondary to cancer chemotherapy Qualified Code(s): D70.1 - Agranulocytosis secondary to cancer chemotherapy; T45.1X5A - Adverse effect of antineoplastic and immunosuppressive drugs, initial encounter (5) Abdominal pain Abdominal location: generalized Qualified Code(s): R10.84 - Generalized abdominal pain (6) Chest pain Chest pain type: unspecified Ischemic chest pain type: Qualified Code(s): R07.9 - Chest pain, unspecified
[2018-09-02] MEDS ORDERED: POTASSIUM CHLORIDE 20 MEQ TABCR PO SCH ×2 (21:00)
[2018-09-02] MEDS: ALPRAZolam 0.25 MG TABLET PO PRN (23:40)
[2018-09-03] MEDS: DEXAMETHASONE CONC 3.75 MG, NYSTATIN 30 ML, DiphenhydrAMINE Syrup 300 MG, ORA-SWEET SYR... PO SCH ×4 (01:55→13:22)
[2018-09-03] MEDS: OXYCODONE HCL IR 5 MG TAB (IMMEDIATE RELEASE) PO PRN (04:13)
[2018-09-03] MEDS: MoRPHine SULFATE CR 15 MG TABCR PO SCH ×2 (05:47→13:21)
[2018-09-03 06:18] LABS: BUN Creatinine Ratio 22.1 (10-20); Calcium 7.6 mg/dl (8.5-10.1); Est GFR (African American) 138.1; Est GFR (Non-African American) 119.1; Magnesium 1.6 mg/dl (1.8-2.4); Phosphorus 1.9 mg/dl (2.5-4.9); Potassium 3.5 mmol/L (3.5-5.1)
[2018-09-03 07:58] LABS: Mean Corpuscular Hgb Conc 32.3 g/dL (32-36)
[2018-09-03 07:59] LABS: Hematocrit (blood only) 28.5 % (42-52); Hemoglobin 9.2 g/dL (14.0-18.0); Mean Corpuscular Volume 77.2 fL (80-100); RDW Coefficient of Variation 17.8 % (11.5-14.5); RDW Standard Deviation 50.7 fL (36.4-46.3); Red Blood Count 3.69 M/uL (4.7-6.1); White Blood Count 8.69 K/uL (4.8-10.8)
[2018-09-03] MEDS ORDERED: POTASSIUM PHOS 3 MMOL/1 ML INFUSION IV STA (08:25)
[2018-09-03] MEDS ORDERED: MAGNESIUM SULFATE / D5W 1 GM/100 ML BAG IV ONE (09:00)
[2018-09-03] MEDS ORDERED: POTASSIUM CHLORIDE 20 MEQ TABCR PO SCH (09:00)
[2018-09-03] MEDS: CITALOPRAM 20 MG TAB PO SCH (09:12)
[2018-09-03] MEDS: NICOTINE 21 MG/24 HR TDSY TD SCH ×2 (09:15→09:25)
[2018-09-03] MEDS: FAMOTIDINE 20 MG TAB PO SCH (09:15)
[2018-09-03] MEDS: NYSTATIN SUSP 500,000 U/5 ML UDC PO SCH ×2 (09:15→12:34)
[2018-09-03] MEDS: DRONABINOL 2.5 MG CAP PO SCH (09:15)
[2018-09-03] MEDS: MAGNESIUM OXIDE 400 MG TAB PO SCH (09:17)
[2018-09-03] MEDS: INSULIN ASPART 100 UNITS/ML 3 ML PEN SC SCH ×2 (09:21→12:34)
[2018-09-03] MEDS: INSULIN GLARGINE SOLOSTAR 100 UNITS/ML 3 ML PEN SC SCH (09:21)
[2018-09-03] MEDS ORDERED: POTASSIUM PHOSPHATE 21 MMOL in SODIUM CHLORIDE 0.9% 500 ML IV ONE (10:00)
[2018-09-03] MEDS ORDERED: INSULIN GLARGINE SOLOSTAR 100 UNITS/ML 3 ML PEN SC STA (10:02)
[2018-09-03 10:03] LABS: Platelet Count 13 K/uL (130-400)
[2018-09-03 10:08] LABS: Dohle Bodies 1+; Toxic Granulation 1+
[2018-09-03 11:41] VITALS: BP 120/78; PULSE 87; TEMP 97.7; O2SAT 97
[2018-09-03] MEDS: HEPARIN 100 UNIT/ML 5ML FLUSH FLUSH PRN (13:21)
--- NOTE | 2018-09-03 16:50 | Discharge Summary ---
Date of Service September 03, 2018 Admission HPI Per Admitting Provider Patient presents after looping last evening with increasing abdominal pain abdominal girth discomfort and early satiety will be brought back in our facility for supportive care and likely to initiate treatment for his anesthetic testicular carcinoma Principal Diagnosis Metastatic cancer disease of testis Discharge Data Allergies Allergy/AdvReac Type Severity Reaction Status Date / Time No Known Allergies Allergy Verified 08/28/18 11:32 Consultations 08/16/18 14:15 ED Decision to Admit Stat 08/16/18 14:30 Consult Case Management - Discharge Planning Routine 08/19/18 09:28 Consult Hematology Routine 08/21/18 09:13 Consult Palliative Care Routine Ordered Studies 08/21/18 04:44 US scrotum/testicle Urgent 08/22/18 12:30 CT abd pelvis IV con only Stat 08/22/18 17:04 US paracentesis abd w/image Urgent 08/25/18 13:39 CT angio chest PE protocol Stat 08/29/18 21:28 US venous doppler LE BI Stat Hospital Course (1) Chest pain: (2) Thrombocytopenia: (3) Neutropenia: (4) Pancytopenia due to antineoplastic chemotherapy: (5) Acute respiratory failure with hypoxia: (6) Hospital acquired PNA: (7) Urinary retention: (8) Abdominal pain: (9) Testicular cancer: (10) Ascites: (11) Type 1 diabetes mellitus with hypoglycemia: (12) Hypophosphatemia: (13) Hypokalemia: (14) Hypomagnesemia: (15) Severe protein-calorie malnutrition: (16) Chronic pain syndrome: (17) Ileus: (18) DVT prophylaxis: 28-year-old white male admitted on August 17, 2018 because of testis cancer and abdominal distention likely from cancer metastases, he was admitted on August 16, 2018 for the same condition but he was eloped on the day of admission, and this admission he completed chemo treatment, he had paracentesis of 5 L of fluid was removed. He was having pancytopenia, currently his general condition is improving Testicular cancer with metastasis, with distended abdomen possible his cancer disease Oncology And palliative care serviceinput appreciated, Continue pain control, Patient's abdomen has been soft pain well controlled, feels not need to have ascites fluid drained recently, has been watching this for several days, he does not need paracentesis to removed ascites fluid for now Patient has urinary retention, was on Coates catheter, which was placed 4 days ago, removed yesterday, and today he urination well Possible pneumonia has been on vancomycin and Zosyn, has been totally 7 days of vancomycin and also completed zosyn treatment Chest pain comes and goes during his hospitalization, possible atypical chest pain, generally chest pain is somehow related to the eating, better controlled, don't Believe need to have further evaluation for the Neutropenic/anemic, Neutropenic resolved, Thrombocytopenia, improving, today's platelet level was 13, yesterday was 14 the day before was 12, recommend PCP please follow-up the thrombocytopenic Chronic kidney disease stage 2, GFR 60-89 ml/min: Severe abdominal distention/pain and scrotal pain upon admission: See above 3+ edema and scrotal edema upon admission, likely because of hypoalbuminemia , somehow improved Possible ileus, resolved, will make sure patient on stool softener while on narcotic medication Full code, DVT prophylaxis covered Subjective upon discharge: Happy and generally cont feeling better, r eating okay Abdominal distention, with abd pain, is acceptable, and tolerable Review of system: afebrile, occasional dry cough no sputum, no wheezing, Report chest pain after eating, come and goes, lasting 5-10 minutes, No chest pain when I seeing him, no more chest pain no Diarrhea constipation, abdominal distention is okay Musculoskeletal: No joint pain, No muscle pain, No swelling, No calf pain, No problem reported : Is on Coates catheter Neurologic: No paralysis, No weakness, No numbness/tingling, Physical Exam upon discharge Constitutional: Frail, Week,+ ill appearing (chronically) and Looks, comfortable , smiling, no acute distress, looks more energetic ENMT: external ear and nose normal, oropharynx normal Respiratory; Mild decreased breathing sounds,No wheezing,normal respiratory effort Cardiovascular: regular rate and + tachycardic Extremities: + pedal edema (2+ edema bilaterally) Gastrointestinal: + abdomen distended Moderate distended, abdomen nontender and no guarding Psychiatric A+Ox3, euthymic affect Lymphatic no cervical or axillary lymphadenopathy Lab data upon discharge: Laboratory Results - last 24 hr 09/03/18 09/03/18 09/03/18 05:31 05:31 07:35 WBC 8.69 RBC 3.69 L Hgb 9.2 L Hct 28.5 L MCV 77.2 L MCH 24.9 L MCHC 32.3 RDW Std Deviation 50.7 H RDW Coeff of Zuleima 17.8 H Plt Count 13 L* Toxic Granulation 1+ Dohle Bodies 1+ Platelet Estimate SIGNIFIC DECREASED Sodium 134 L Potassium 3.5 Chloride 100 Carbon Dioxide 29 Anion Gap 5.0 BUN 19 H Creatinine 0.87 Est Cr Clr Drug Dosing 139.0 Est GFR ( Amer) 138.1 Est GFR (Non-Af Amer) 119.1 BUN/Creatinine Ratio 22.1 H Glucose 169 H POC Glucose 223 H Calcium 7.6 L Phosphorus 1.9 L Magnesium 1.6 L 09/03/18 11:32 WBC RBC Hgb Hct MCV MCH MCHC RDW Std Deviation RDW Coeff of Zuleima Plt Count Toxic Granulation Dohle Bodies Platelet Estimate Sodium Potassium Chloride Carbon Dioxide Anion Gap BUN Creatinine Est Cr Clr Drug Dosing Est GFR ( Amer) Est GFR (Non-Af Amer) BUN/Creatinine Ratio Glucose POC Glucose 284 H Calcium Phosphorus Magnesium Total Time Total Time Spent Total Time Spent (In Minutes): 35 Total Time Includes: Examination of the Patient, Discharge Planning, Medication Reconciliation and Communication With Other Providers Discharge Plan Discharge Items Patient Disposition: Home - Home Health Services Reason For Visit: ABDOMINAL PAIN,METASTATIC TESTICULAR CANCER Discharge Diagnosis: Testicular cancer with metastasis Condition: Fair Discharge Goals: Decrease discomfort, Diagnostic testing, Improve disease control, Improve function, Improve nutritional status and Learn about illness Activity: Resume your previous activity Non-emergency contact: Primary Care Provider and Oncologist Call non-emergency contact if: you have any medication questions and your temperature is above 100.5 Follow-up/Referrals: Kade Kelsey III, MD [Primary Care Provider] - 09/11/18 1:50 pm (Please, follow up with Dr. Kelsey on September 11 at 1:50 pm. *If you need to change this appointment, call the office at [phone].) Diet: Regular Addtl Provider Instructions: you have testis cancer and abdominal distention you were having pantocytopenia, is improving you was having urine retension, Coates catheter removed yesterDAY you need to make sure take stool softener while on narcotic medication you need to eat balanced food, you need to follow up with your primary care physician in 1 week, check labs of mag, bmp, and phos in the follow up visit with pcp - take medication as instructed, never overdose or any misuse, or take with alcohol, because misuse of medicine may cause organ damage or , call me , or your primary care physician if have questions of discharge medicaitons. - call your primary care physician, or go to local emergency room if has any fever/chill, chest pain, shortness of breathing, nausea/vomiting/abdominal pain , facial droop/slurry speech/local weakness, or if has any questions. - fall precaution - diet as instructed - you need to follow up with your subspecialist, such as Dr. Ortiz Prescriptions: New polyethylene glycol 3350 [Miralax] 17 gram Powder In Packet 17 g PO DAILY 7 Days Qty: 7 RF: 0 dronabinol 2.5 mg Capsule 2.5 mg PO BID 14 Days Qty: 28 RF: 0 potassium chloride [Klor-Con M20] 20 mEq Tablet,Er Particles/Crystals 20 meq PO DAILY 7 Days Qty: 7 RF: 0 famotidine 20 mg Tablet 20 mg PO BID 14 Days Qty: 28 RF: 0 magnesium oxide 400 mg (241.3 mg magnesium) Tablet 400 mg PO BID 14 Days Qty: 28 RF: 0 nicotine [Nicoderm CQ] 21 mg/24 hr Patch 24 Hour 21 mg Transdermal QAM 30 Days Qty: 30 RF: 0 morphine 15 mg Tablet Extended Release 30 mg PO Q8 7 Days Qty: 42 RF: 0 oxycodone 5 mg Tablet 10 mg PO Q6 PRN (Reason: pain) 3 Days Qty: 10 RF: 0 aluminum-magnesium hydroxide [MAG-AL] 200-200 mg/5 mL Suspension 30 ml PO Q6H PRN (Reason: indigestion) 7 Days Qty: 120 RF: 0 Continue celecoxib [Celebrex] 200 mg capsule 200 mg PO DAILY PRN (Reason: Pain) RF: 0 citalopram [Celexa] 10 mg tablet 10 mg PO DAILY RF: 0 alprazolam [Xanax] 0.5 mg tablet 0.5 mg PO BID PRN (Reason: Anxiety) RF: 0 dextroamphetamine-amphetamine [Adderall] 15 mg tablet 15 mg PO BID RF: 0 insulin lispro [Admelog SoloStar U-100 Insulin] 100 unit/mL insulin pen See Label Instructions .ROUTE .COMPLEX RF: 0 multivitamin Tablet 1 tab PO DAILY RF: 0 Changed insulin degludec [Tresiba FlexTouch U-100] 100 unit/mL (3 mL) insulin pen 8 unit subcut QPM Qty: 0 RF: 0 Discontinued oxycodone 5 mg tablet 5 mg PO Q4 PRN (Reason: Pain) RF: 0 Visit Report Forms: [facility] Portal Stand-Alone Forms: [facility] Discharge Orders: Discharge Order (Routine); Ordered 09/03/18 Ordered By: Yuri Mai Admission Data Admit Date/Time: 08/16/18 14:29 Attending Provider: Yuri Mai Admit Provider: Jeramy Otoole Primary Care Provider: Kade Kelsey III Other Providers: Reji Poole ; Jeramy Otoole ; Bairon Cruz ; Marley Keys ; Selena Raza ; Susannah Beach Service: Medical Other Interventions: Discharge Summary Assessment (RN) Last Done: 09/03/18 10:51 DC Date/Time DO NOT enter until pt leaves facility: 09/03/18 13:41
== END 2018-09-03 13:41 | disposition home health service (06) | DRG 722 ==
LOC: ED 13:31 → 4E 14:29 → SUATTDRO 14:29 → 4E 15:29 → 2E 08-25 12:17 → 4E 09-02 14:55

== ENCOUNTER 2018-09-17 14:49 | Inpatient (IN) ==
[2018-09-17] MEDS ORDERED: SODIUM CHLORIDE 0.9% 500 ML IV SCH (15:30)
[2018-09-17 15:35] LABS: Hematocrit (blood only) 26.4 % (42-52); Hemoglobin 8.3 g/dL (14.0-18.0); Mean Corpuscular Hgb Conc 31.4 g/dL (32-36); Mean Corpuscular Volume 82.5 fL (80-100); Mean Platelet Volume 8.6 fL (7.4-10.4); Nucleated RBC # (auto) 0.23 K/uL (0-0); Nucleated RBC % (auto) 0.8 %; Platelet Count 521 K/uL (130-400); RDW Coefficient of Variation 22.2 % (11.5-14.5); RDW Standard Deviation 56.2 fL (36.4-46.3); White Blood Count 29.49 K/uL (4.8-10.8)
[2018-09-17 15:43] LABS: Alanine Aminotransferase 32 U/L (12-78); Albumin Level 2.3 gm/dl (3.4-5.0); Aspartate Aminotransferase 25 U/L (15-37); Blood Urea Nitrogen 21 mg/dl (7-18); Calcium 8.1 mg/dl (8.5-10.1); Carbon Dioxide 26 mmol/L (21-32); Chloride 100 mmol/L (98-107); Creatinine Clr Calc Pharmacy 84.1 ml/min; Est GFR (African American) 90.6; Est GFR (Non-African American) 78.2; Glucose 240 mg/dl (70-99); Magnesium 1.9 mg/dl (1.8-2.4); Potassium 4.5 mmol/L (3.5-5.1); Sodium 134 mmol/L (136-145)
[2018-09-17 15:54] LABS: Albumin Globulin Ratio 0.5 (0.9-2); Alkaline Phosphatase 167 U/L (45-117); Bilirubin,Total 0.3 mg/dl (0.2-1); Globulin 4.7 gm/dl (2.5-4.0); Troponin I < 0.015 ng/ml (0-0.045)
[2018-09-17 16:04] LABS: ALC (manual) 1.53 K/uL (1.2-3.4); Anisocytosis Present; Basophils # (manual) 0.27 K/uL (0-0.2); Basophils % (manual) 0.9 %; Lymphocytes # (manual) 1.53 K/uL (1.2-3.4); Lymphocytes % (manual) 5.2 %; Metamyelocytes % (manual) 3.4 %; Monocytes % (manual) 3.4 %; Myelocytes % (manual) 3.4 %; Neutrophils % (manual) 83.7 %; Spherocytes Occasional
[2018-09-17 16:26] LABS: Appearance Urine Clear (Clear); Bilirubin Urine Negative (Negative); Color Urine Yellow; Glucose Urine UA 2+ (Negative); Ketones Urine Negative (Negative); Leukocyte Esterase Urine Negative (Negative); Nitrite Urine Negative (Negative); Protein Urine Negative (Negative); Urobilinogen Urine Negative (Negative)
--- NOTE | 2018-09-17 16:28 | CT Scan Report ---
CT head/brain wo con CLINICAL HISTORY: New onset seizure COMPARISON STUDY: 10/04/2012 TECHNIQUE: Axial CT of the brain is performed from the vertex to the skull base. IV contrast was not administered for this examination. A dose lowering technique was utilized adhering to the principles of ALARA. CT DOSE: 537.48 mGy.cm FINDINGS: No intra or extra-axial mass lesions are visualized. There is no CT evidence of acute cortical infarc tion. There is no evidence of midline shift. There is no acute hemorrhage. No calvarial fractures ar e visualized. There is a prominent cisterna magna unchanged the prior study. There is no evidence of pathologic ventricular dilatation. There is no evidence of acute sinusitis IMPRESSION: No acute intracranial findings Electronically signed by: Ryne Bucio M.D. 09/17/2018 4:27 PM
[2018-09-17 17:03] LABS: INR 1.1 (0.9-1.1); Partial Thromboplastin Ratio 0.9; Partial Thromboplastin Time 24.1 Seconds (21.0-31.0); Prothrombin Time 11.2 Seconds (9.0-12.0)
[2018-09-17] MEDS ORDERED: LORazepam 1 MG TAB PO STA (18:12)
[2018-09-17] MEDS ORDERED: GADOBUTROL 65ML VIAL IV PRN (19:39)
--- NOTE | 2018-09-17 20:00 | Magnetic Resonance Report ---
Brain MRI WITH AND WITHOUT CONTRAST HISTORY: Seizures. r/o brain mass TECHNIQUE: Multiplanar multisequence MRI of the brain was performed both before and after the intrave nous administration of contrast. COMPARISON STUDY: Head CT 09/17/2018. FINDINGS: There are no areas of restricted diffusion to suggest acute infarction. The midline structu res are intact. The paranasal sinuses are clear. A few partially opacified left mastoid air cells. Th e right mastoid air cells are clear. The ventricles and sulci are within normal limits for age. There is no hematoma, midline shift. The major vascular flow-voids at the skull base are well maintained. Best seen on coronal postcontrast and coronal FLAIR image 11 there is a 5 mm focus of T2 hyperintensi ty suggestive of edema. There is a 2 mm focus of enhancement centered at this area. This appears to b e within the internal capsule and abuts the anterior border of the left thalamus. IMPRESSION: A 2 mm enhancing nodule within the left internal capsule with mild surrounding edema. Given history o f malignancy, a metastatic focus would be the diagnosis of exclusion. The differential diagnosis woul d also include a focus of demyelination or subacute infarct. However, these are considered less likel y. Small focus of infection would also be considered unlikely given the location. Electronically signed by: Zackary Delatorre M.D. 09/17/2018 7:58 PM
[2018-09-17] MEDS ORDERED: DEXAMETHASONE SOD INJ 4 MG/ML VIAL IV STA (20:04)
--- NOTE | 2018-09-17 20:19 | History & Physical Report ---
Date of Service September 17, 2018 Assessment & Plan (1) Seizure: Brett Leigh is a 28 y.o male with history of metastatic testicular cancer , DM1, CKD2, Pneumonia, Depression, Chronic Anxiety, avascular necrosis of the femur found to have new-onset seizure concerning for metastatic disease admitted for further evaluation of brain lesion and treatment of testicular cancer. 1. Seizure (New Onset) -Likely secondary to 2mm enhancing lesion found on Brain MRI and located within internal capsule -Likely due to metastatic testicular cancer as pt has metastatic disease present in peritoneal/omentum and CTA on 08/25 demonstrated metastatic mediastinal adenopathy -CT head negative for hemorrhage/midline shift or acute infarct -Pt received Dexamethasone in ED to decrease inflammation surrounding lesion -Pt currently stable and more alert -seizure precautions, ativan PRN, can consider Keppra/Phenytoin if pt seizes again -Will plan to continue Dexamethasone 4mg IV q6hr -Radiation Oncology consulted will appreciate recommendations for further management and evaluation of brain lesion. 2. 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 Cruz for further discussion and treatment planning. Palliative care consulted as willy would like to talk further about goals of care. 3. Diabetes mellitus -Insulin dependent -Normally takes 21 of long acting insulin at night -Will order pharmacy consult as pt is also on Dexamethasone which is likely cause of wbc elevated at 29 -Lantus 10U BID and SSI ordered with accucheck Ac/HS -A1c pending please f/u 4. Shingles -Present on forehead w/o nose involvement -Currently on Valtrex daily, will continue regimen 5. CKD II -Prior CT abdomen showed remote scarring with corticall thinning around the inferior pole of right kidney -BUN mild elevated at 21 with Cr of 1.26 -Will continue to monitor I/O during admission 6. Left hip avascular necrosis -Secondary to fall down stairs - Left hip Xray due to recent fall, results pending -US of left lower extremity ordered to r/o DVT, results pending -Will continue pain regimen (MS Contin, Roxicodone, Dilaudid - PRN) -Bowel regimen ordered 7. Mood disorder -History of depression -continue home regimen of Seroquel and Xanax -Acute behavior/mood changes may be secondary to brain lesion or adjustment disorder -Not currently suicidal/homicidal -Can consider pysch consult during hospital stay 8. Severe Protein-Calorie Malnutrition -Secondary to disease state - diabetic diet ordered -Can consider last waxer consult or adding Boost supplement to meals 9. Chronic Anemia -Likely secondary to testicular cancer -H/H 8.3/26.4 -Will continue to monitor and transfuse for HCT < 21 10. Lower extremity edema -Secondary to changes in oncotic pressure due to decreased protein in the body -Lasix PRN ordered 11. Tobacco Use -Smokes 1.5 ppd -Nicotine patch ordered FEN/GI Fluids: None electrolytes: monitor and replace as needed Nutrition: Diabetic diet Activity: up with assist DVT PPX: Lovenox GI PPx: Protonix Social: Willy is currently POA. Code: Full Code Dispo: Inpt admission for management and furthr evaluation of poss brain met. Will need palliative and case management for coordination of care. - (2) Metastatic cancer to brain: (3) Testicular cancer: (4) Depression: (5) Shingles: (6) Chronic pain syndrome: (7) Severe protein-calorie malnutrition: (8) Type 1 diabetes mellitus with hypoglycemia: (9) CKD (chronic kidney disease) stage 2, GFR 60-89 ml/min: History of Present Illness Chief Complaint: New-onset Seizure Primary Care Provider: Kade Kelsey III, MD Brett Bowensdaniel is a 28 y.o male with history of metastatic testicular cancer, DM1 , CKD2, Pneumonia, Depression, Chronic Anxiety, avascular necrosis of the femur who presents to the ED after new-onset seizure. History per willy who is at bedside. States that he was sitting up in bed this afternoon around 1330 when he exhibited a jerking motion which she initially thought was a startle movement. At 1400 he exhibited the jerking motion again followed by tonic- clonic seizure described as rigidity of both arms pulled towards chest and bilateral twitching of feet. States that the seizure seemed to last forever but now thinks that it lasted for 90 seconds. Reports having difficulty laying the patient on his side during the seizure. EMS was called and Brett was brought to [facility] ED. He is currently drowsy but by the end of the encounter is awake and alert. Denies headache or body pain but complains of feeling hungry. Appetite has been good as he takes Marinol as needed for appetite enhancement. He has been taking plenty of fluids and voiding without difficulty. He also has history of shingles outbreak on forehead that started on 09/08/18. He is currently being treated with Valtrex for an undetermined amount of time. Willy reports that he had a recent fall to left him and knee was injured in the process. States that left lower leg is now more swollen than right lower leg. Additional history: Willy states that over the past 2 weeks he has become more aggressive with emotional lability. Has been physically aggressive towards willy and his mother. He also has reported suicidal ideation with plan to shoot self. After physical aggression he becomes tearful and apologetic. He currently denies suicidal ideation. Of note the patient has history of metastatic testicular cancer that was diagnosed in June of 2017 after presenting with a scrotal mass. He required left orchectomy on 06/24/2017 and is s/p 4 cycles of chemotherapy followed by salvage therapy in August of 2018. He was lost to f/u for 5 months following his left nephrectomy in December of 2017. ED Course: Given Ativan, Dexamethasone, Morphine, and IVF. MRI of Brain and CT head completed. Past Medical History: 1. Testicular cancer with metastatic disease 2. IDDM 3. Avascular Necrosis of left hip 4. CKD II 5. Depression 6. Tobacco Abuse 7. Anemia Surgical History: 1. Left Orchiectomy 2. Left Nephrectomy Social History: Lives with willy and parents. Is unemployed His mother is an alcoholic. Smokes marijuana regularly. Smokes 1.5ppd of tobacco. Denies alcohol use. Allergies Allergy/AdvReac Type Severity Reaction Status Date / Time No Known Allergies Allergy Verified 08/28/18 11:32 Home Medications Home Medications Medication Instructions Recorded Confirmed Type alprazolam [Xanax] 0.5 mg PO BID 07/25/18 09/17/18 History celecoxib [Celebrex] 200 mg PO DAILY PRN 07/25/18 09/17/18 History dextroamphetamine-amphetamine 15 mg PO BID 07/25/18 09/17/18 History [Adderall] insulin lispro [Admelog SoloStar See Label Instructions .ROUTE 07/25/18 History U-100 Insulin] .COMPLEX multivitamin 1 tab PO DAILY 07/25/18 09/17/18 History furosemide 40 mg PO DAILY PRN 09/17/18 09/17/18 History insulin degludec [Tresiba 21 unit SUBCUT QPM 09/17/18 09/17/18 History FlexTouch U-100] morphine [MS Contin] 30 mg PO Q8 09/17/18 09/17/18 History oxycodone [Roxicodone] 10 mg PO Q6 PRN 09/17/18 09/17/18 History quetiapine [Seroquel] 0 mg PO DAILY 09/17/18 09/17/18 History valacyclovir [Valtrex] 500 mg PO BID 09/17/18 10/01/18 History dexamethasone 4 mg PO Q8H 14 Days #42 tab 09/18/18 Rx Past Med/Surg History Medical History Chronic pain syndrome Severe protein-calorie malnutrition Thrombocytopenia Type 1 diabetes mellitus with hypoglycemia Pancytopenia due to antineoplastic chemotherapy CKD (chronic kidney disease) stage 2, GFR 60-89 ml/min Teratoma of pelvis (Chronic) Testis cancer (Chronic) Cancer Testicular CA with mets Anxiety Diabetes (Chronic) Avascular necrosis of femur head, left Surgical History History of nephrectomy History of orchiectomy Family History Grandfather Heart attack Other Cancer Social History marital status: Single Current Living Situation: Significant Other Feels Safe at Home: Yes Safety Concerns: Feels Safe At This Time Smoking Status: Current every day smoker Tobacco Type: cigarettes Cigarettes per Day: 20-30 Do You Dip or Chew Tobacco: No Second Hand Exposure: Yes Tobacco Cessation Education Requested by Patient: No Hx Alcohol Use: No Hx Substance Use: Yes substance use type: marijuana Last Used Substance: Unknown Beliefs That Will Affect Care: None Communication Ability: Effective Review of Systems Constitutional: + fatigue; no fever and no chills Eyes: no worsening vision Ear, Nose, Mouth, Throat: no nasal congestion, no loose teeth and no sore throat Respiratory: no cough and no wheezing Cardiovascular: + edema; no chest pain and no palpitations Gastrointestinal: no abdominal pain, no nausea, no vomiting, no constipation and no diarrhea/loose stools Genitourinary (Male): no dysuria and no hematuria Musculoskeletal: no back pain, no neck pain and no joint pain Integumentary: + rash and + lesions Neurologic: + abnormal movements (left hand twitch ); no numbness and no lack of coordination Psychiatric: + depression; no anxiety Physical Exam 2 Vital Signs (Past 24 Hours): Last Vital Signs Temp 36.6 C 09/17/18 15:07 Pulse 93 H 09/17/18 20:00 Resp 20 09/17/18 20:00 BP 120/75 09/17/18 20:00 Pulse Ox 98 09/17/18 20:00 Constitutional: + thin, cooperative and + lethargic; no acute distress and + not healthy appearing Eyes: PERRL and EOM intact bilaterally ENMT: external ear and nose normal, oropharynx normal dry mucosa Neck: neck supple, negative adenopathy Respiratory: normal respiratory effort, lungs clear to auscultation + abnormal respiratory effort, no respiratory distress and no cough Auscultation: no rales, no rhonchi and no wheezes Cardiovascular: RRR, no murmur, no edema Heart Sounds: normal S1 and normal S2 Vessels: normal peripheral pulses Extremities: + edema ( bilateral lower extremity edema, 2+ pitting) Gastrointestinal (Abdomen): Inspection/Auscultation: + abdomen distended and + abdominal surgical scar Percussion/Palpation: abdomen soft; abdomen nontender normal bowel sounds Musculoskeletal: strength 5/5 of extremities left knee edematous, nttp, ROM intact Skin: + dry skin right side of forehead, scalp with erythematous scaling lesions, nttp, no vesicles Neurologic: PERRL, EOMI, accommodation nl, no face palsy, no dysarthria CN' s II-XI intact bilaterally and awake; no focal motor deficits Motor/Sensory: no sensory deficit Cranial Nerves: normal facial strength, tongue midline, normal hearing and no nystagmus Psychiatric: Orientation: alert and oriented to time Eye Contact: good eye contact Motor Behavior: no abnormal motor movements (initial findings of left hand twitch but as pt became more alert motor movements normalized) Results & Data Laboratory Results WBC 29.49 H/H 8.3/26.4 Neut 24.68 Na 134 Glucose 240 Ca 8.1 Alk phos 167 Plt 521 Mag 1.9 Diagnostic Findings Brain MRI: 2mm enhancing nodule within left internal capsule Head CT: no hemorrhage, no infarct, no acute midline shift Medications Administered Ativan, Dexamethasone ECG Additional Comments: sinus tachycardia HR 121 Code Status & VTE Plan Code Status Full Code VTE Prophylaxis Plan VTE Prophylaxis will be ordered: Yes Supervising Physician Co-Signing Physician Notes Patient seen and examined, reviewed, case discussed with and I agree with her assessment and plan as documented above. Briefly patient is a 28 -year-old male with history of testicular cancer with metastatic disease status post orchiectomy and chemo presents with new onset seizures. Patient found to have a 2 mm lesion in the left internal capsule with surrounding vasogenic edema highly suspicious for metastatic disease. On physical exam he is afebrile, hemodynamically stable Resting comfortably, no acute distress. Cachectic, chronically ill-appearing appearing male Skin - Zoster on left side, crusting lesions, no evidence of secondary infection , no involvement of nose HEENT - dry mm, neck supple Heart - +S1/S2, regular, no m/r/g Lungs - CTA Abd - soft, NT/ND Ext - 2+ edema Labs and images reviewed. Patient with leukocytosis, WBC = 29.49, neutrophil predominant Assessment/plan: Admit to medical floor continue IV dexamethasone. Patient was given 12 mg IV x1 dose in the ER. We will continue 4 mg IV every 6 hours. Oncology consultation and radiation oncology consultation. Appreciate assistance with this case. Hollie also wishes to speak with palliative again, will consult. Will check x-ray of left hip as well as left lower extremity Doppler as patient fell and has had chronic pain. remainder of plan as above _ (1) Type 1 diabetes mellitus with hypoglycemia Diabetes mellitus complication detail: without coma Qualified Code(s): E10.649 - Type 1 diabetes mellitus with hypoglycemia without coma (2) Testicular cancer Descendance of testis: descended Laterality: left Qualified Code(s): C62.12 - Malignant neoplasm of descended left testis
--- NOTE | 2018-09-17 20:42 | Emergency Department Note ---
Entered by Cally Jane acting as a scribe for Chance Goldstein DO History of Present Illness General Chief complaint: Seizure Time Seen by Provider: 09/17/18 15:11 Source: patient and family (Significant other) History of Present Illness Onset (ago): hour(s) 1 Location: head (Seizures) Pain Consistency: + other (Episodic) Quality: + other (Seizures) Exacerbated By: + movement Associated symptoms: + confusion, + seizure and + other (Falls, left leg pain.) ; no cough, no fever/chills and no shortness of breath The patient is a 28 year old male who presents to the Emergency Room with complaints of episodic seizures starting 1 hour ago. The patients significant other reports that the patient had 2 seizures [employer]ESS [employer]ER[employer]IST. She notes that the first seizure lasted 4 to 5 seconds but that the second seizure lasted 30 to 40 seconds. She adds that there was 30 minutes in between the 2 seizures. She states that the patients eyes rolled back and patients jaw was open during his second seizure. She reports that after the second seizure the patient was confused. The patient reports that he has never had seizures before and is not taking any medication for them. He states that he is currently receiving chemotherapy for testicular cancer. The patients significant other reports that the patient has been taking Valtrex and Prednisone for Shingles that he was diagnosed with 1 week ago. She adds that the patient has not been sleeping well and fell a few days ago and now his left leg is painful and swollen. The patient adds that movement worsens his left leg pain. 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 She notes that the patient recently spent 1 month in the hospital for his low WBC count. The patient denies fever, shortness of breath and cough. Home Medications Home Medications Medication Instructions Recorded Confirmed Type alprazolam [Xanax] 0.5 mg PO BID 07/25/18 09/17/18 History celecoxib [Celebrex] 200 mg PO DAILY PRN 07/25/18 09/17/18 History dextroamphetamine-amphetamine 15 mg PO BID 07/25/18 09/17/18 History [Adderall] insulin lispro [Admelog SoloStar See Label Instructions .ROUTE 07/25/18 History U-100 Insulin] .COMPLEX multivitamin 1 tab PO DAILY 07/25/18 09/17/18 History furosemide 40 mg PO DAILY PRN 09/17/18 09/17/18 History insulin degludec [Tresiba 21 unit SUBCUT QPM 09/17/18 09/17/18 History FlexTouch U-100] morphine [MS Contin] 30 mg PO Q8 09/17/18 09/17/18 History oxycodone [Roxicodone] 10 mg PO Q6 PRN 09/17/18 09/17/18 History prednisone [Deltasone] 40 mg PO UD 09/17/18 09/17/18 History quetiapine [Seroquel] 0 mg PO DAILY 09/17/18 09/17/18 History valacyclovir [Valtrex] 1 g PO TID 09/17/18 09/17/18 History Allergies Allergy/AdvReac Type Severity Reaction Status Date / Time No Known Allergies Allergy Verified 08/28/18 11:32 Past Med/Surg History Medical History Chronic pain syndrome Severe protein-calorie malnutrition Thrombocytopenia Type 1 diabetes mellitus with hypoglycemia Pancytopenia due to antineoplastic chemotherapy CKD (chronic kidney disease) stage 2, GFR 60-89 ml/min Teratoma of pelvis (Chronic) Testis cancer (Chronic) Cancer Testicular CA with mets Anxiety Diabetes (Chronic) Avascular necrosis of femur head, left Surgical History History of nephrectomy History of orchiectomy Family History Grandfather Heart attack Other Cancer Social History marital status: Single Current Living Situation: Family and Significant Other Feels Safe at Home: Yes Smoking Status: Current every day smoker Tobacco Type: cigarettes Cigarettes per Day: 20-30/day Hx Alcohol Use: No Hx Substance Use: Yes substance use type: marijuana Beliefs That Will Affect Care: None Preferred Language: Maltese Review of Systems See HPI for pertinent positives & negatives. and A total of 10 systems reviewed and were otherwise negative Physical Exam Vital Signs Vital Signs - 24 hr 09/17/18 15:07 09/17/18 15:33 01/16/19 16:28 Temperature 36.6 C Temperature Source Oral Sepsis Recent Fever Within 48 Hours No Sepsis New/Unexplained Change in Mental Status No Sepsis Action Taken by Nursing No Action Required Pulse Rate 126 H Pulse Rate [Left Brachial] 96 H Respiratory Rate 18 18 Respiratory Effort / Characteristics Non-Labored Non-Labored Spontaneous Respiratory Depth Normal Normal Respiratory Pattern Regular Regular Blood Pressure 128/87 Blood Pressure [Left Arm] 123/79 Blood Pressure Mean 100 Blood Pressure Mean [Left Arm] 93 Blood Pressure Position [Left Arm] Lying Pulse Oximetry 96 96 100 Oxygen Delivery Method Room Air Room Air Room Air 09/17/18 18:00 09/17/18 20:00 Temperature Temperature Source Sepsis Recent Fever Within 48 Hours Sepsis New/Unexplained Change in Mental Status Sepsis Action Taken by Nursing Pulse Rate Pulse Rate [Left Brachial] 94 H 93 H Respiratory Rate 20 20 Respiratory Effort / Characteristics Respiratory Depth Respiratory Pattern Blood Pressure Blood Pressure [Left Arm] 122/81 120/75 Blood Pressure Mean Blood Pressure Mean [Left Arm] 94 90 Blood Pressure Position [Left Arm] Pulse Oximetry 96 98 Oxygen Delivery Method Room Air Room Air VITAL SIGNS: were reviewed as above. GENERAL:Non-toxic in appearance. SKIN: Healing shingles rash in the right scalp and face. HEAD: Normocephalic and atraumatic. OROPHARYNX: Is clear and moist. No injury to tongue. NECK: Supple without lymphadenopathy or meningismus. LUNGS: clear. HEART: Regular rate and rhythm. ABDOMEN: Distended and nontender (no change in baseline). EXTREMITIES: Warm and well perfused. Bilateral pedal edema. NEUROLOGICALLY: Awake alert and oriented without focal deficit. Cranial nerves 2 -12 are intact. There is no pronator drift. Cerebellar testing is within normal limits. There is no nystagmus. There is no facial droop. Speech is clear. Vision is grossly normal. MUSCULOSKELETAL: Good muscle tone. No evidence of trauma. Course 1509: Past medical records reviewed. The patient was evaluated in room C9, and a complete history and physical examination were performed. 1703: I reviewed the patient's case with Dr. Sharon WREN oncology recommended that the patient get an MRI of the brain. 2011: I reviewed the patient's case with Dr. Vasques - [facility] hospitalist. She will evaluate the patient for further management. Administered Medications Gadobutrol (Gadavist 65ml) 6.5 ml IV ONCE PRN PRN Reason: Interaction Checking Stop: 09/21/18 19:38 Last Admin: 09/17/18 19:40 Dose: 6.5 ml Discontinued Medications Dexamethasone (Decadron) 12 mg IV NOW STA Stop: 09/17/18 20:05 Last Admin: 09/17/18 20:26 Dose: 12 mg Sodium Chloride (Nss) 500 mls @ 999 mls/hr IV .Q31M RHONDA Stop: 09/17/18 16:00 Last Infusion: 09/17/18 16:05 Dose: 0 mls/hr Admin: 09/17/18 15:35 Dose: 999 mls/hr Lorazepam (Ativan) 1 mg PO NOW STA Stop: 09/17/18 18:13 Last Admin: 09/17/18 18:25 Dose: 1 mg Medical Decision Making Differential Diagnosis Differential diagnosis: Etiologies such as infection, hypoglycemia, electrolyte abnormalities, cardiac sources, intracerebral event, trauma, toxicologic, neurologic, as well as others were entertained. Medical Records Attestation: I reviewed the patient's medical records. Home Medications Current Medication List: was personally reviewed by me Laboratory Data Attestation: I reviewed the patient's lab results. Result diagrams: 09/17/18 14:47 09/17/18 14:47 Lab Results 09/17/18 09/17/18 09/17/18 Range/Units 14:47 14:47 14:47 WBC 29.49 H (4.8-10.8) K/uL RBC 3.20 L (4.7-6.1) M/uL Hgb 8.3 L (14.0-18.0) g/dL Hct 26.4 L (42-52) % MCV 82.5 (80-100) fL MCH 25.9 (25-34) pg MCHC 31.4 L (32-36) g/dL RDW Std Deviation 56.2 H (36.4-46.3) fL RDW Coeff of Zuleima 22.2 H (11.5-14.5) % Plt Count 521 H (130-400) K/uL MPV 8.6 (7.4-10.4) fL Absolute Nucleated RBC 0.23 H (0-0) K/uL Nucleated RBC % (auto) 0.8 % Neutrophils % (Manual) 83.7 % Lymphocytes % (Manual) 5.2 % Monocytes % (Manual) 3.4 % Basophils % (Manual) 0.9 % Metamyelocytes % (Man) 3.4 % Myelocytes % (Man) 3.4 % Neutrophils # (Manual) 24.68 H (1.4-6.5) K/uL Total Absolute Neuts 24.68 H (1.4-6.5) K/uL Lymphocytes # (Manual) 1.53 (1.2-3.4) K/uL Total Abs Lymphocytes 1.53 (1.2-3.4) K/uL Monocytes # (Manual) 1.00 H (0.11-0.59) K/uL Basophils # (Manual) 0.27 H (0-0.2) K/uL Metamyelocytes # (Man) 1.00 H (0-0) K/uL Myelocytes # (Manual) 1.00 H (0-0) K/uL Anisocytosis Present Spherocytes Occasional PT Cancelled INR Cancelled APTT (21.0-31.0) Seconds PTT Ratio Sodium 134 L (136-145) mmol/L Potassium 4.5 (3.5-5.1) mmol/L Chloride 100 (98-107) mmol/L Carbon Dioxide 26 (21-32) mmol/L Anion Gap 9.0 (3-11) BUN 21 H (7-18) mg/dl Creatinine 1.26 (0.6-1.4) mg/dl Est Cr Clr Drug Dosing 84.1 ml/min Est GFR ( Amer) 90.6 Est GFR (Non-Af Amer) 78.2 BUN/Creatinine Ratio 17.0 (10-20) Glucose 240 H (70-99) mg/dl Calcium 8.1 L (8.5-10.1) mg/dl Magnesium 1.9 (1.8-2.4) mg/dl Total Bilirubin 0.3 (0.2-1) mg/dl AST 25 (15-37) U/L ALT 32 (12-78) U/L Alkaline Phosphatase 167 H (45-117) U/L Troponin I < 0.015 (0-0.045) ng/ml Total Protein 7.0 (6.4-8.2) gm/dl Albumin 2.3 L (3.4-5.0) gm/dl Globulin 4.7 H (2.5-4.0) gm/dl Albumin/Globulin Ratio 0.5 L (0.9-2) TSH 3.500 (0.300-4.500) uIu/ml Urine Color Urine Appearance (Clear) Urine pH (4.5-7.5) Ur Specific [place] (1.000-1.030) Urine Protein (Negative) Urine Glucose (UA) (Negative) Urine Ketones (Negative) Urine Blood (Negative) Urine Nitrite (Negative) Urine Bilirubin (Negative) Urine Urobilinogen (Negative) Ur Leukocyte Esterase (Negative) 09/17/18 09/17/18 Range/Units 16:15 16:45 WBC (4.8-10.8) K/uL RBC (4.7-6.1) M/uL Hgb (14.0-18.0) g/dL Hct (42-52) % MCV (80-100) fL MCH (25-34) pg MCHC (32-36) g/dL RDW Std Deviation (36.4-46.3) fL RDW Coeff of Zuleima (11.5-14.5) % Plt Count (130-400) K/uL MPV (7.4-10.4) fL Absolute Nucleated RBC (0-0) K/uL Nucleated RBC % (auto) % Neutrophils % (Manual) % Lymphocytes % (Manual) % Monocytes % (Manual) % Basophils % (Manual) % Metamyelocytes % (Man) % Myelocytes % (Man) % Neutrophils # (Manual) (1.4-6.5) K/uL Total Absolute Neuts (1.4-6.5) K/uL Lymphocytes # (Manual) (1.2-3.4) K/uL Total Abs Lymphocytes (1.2-3.4) K/uL Monocytes # (Manual) (0.11-0.59) K/uL Basophils # (Manual) (0-0.2) K/uL Metamyelocytes # (Man) (0-0) K/uL Myelocytes # (Manual) (0-0) K/uL Anisocytosis Spherocytes PT 11.2 INR 1.1 APTT 24.1 (21.0-31.0) Seconds PTT Ratio 0.9 Sodium (136-145) mmol/L Potassium (3.5-5.1) mmol/L Chloride (98-107) mmol/L Carbon Dioxide (21-32) mmol/L Anion Gap (3-11) BUN (7-18) mg/dl Creatinine (0.6-1.4) mg/dl Est Cr Clr Drug Dosing ml/min Est GFR ( Amer) Est GFR (Non-Af Amer) BUN/Creatinine Ratio (10-20) Glucose (70-99) mg/dl Calcium (8.5-10.1) mg/dl Magnesium (1.8-2.4) mg/dl Total Bilirubin (0.2-1) mg/dl AST (15-37) U/L ALT (12-78) U/L Alkaline Phosphatase (45-117) U/L Troponin I (0-0.045) ng/ml Total Protein (6.4-8.2) gm/dl Albumin (3.4-5.0) gm/dl Globulin (2.5-4.0) gm/dl Albumin/Globulin Ratio (0.9-2) TSH (0.300-4.500) uIu/ml Urine Color Yellow Urine Appearance Clear (Clear) Urine pH 7.0 (4.5-7.5) Ur Specific [place] 1.010 (1.000-1.030) Urine Protein Negative (Negative) Urine Glucose (UA) 2+ H (Negative) Urine Ketones Negative (Negative) Urine Blood Negative (Negative) Urine Nitrite Negative (Negative) Urine Bilirubin Negative (Negative) Urine Urobilinogen Negative (Negative) Ur Leukocyte Esterase Negative (Negative) Imaging Data Radiologist's Impression: Radiology results as stated below per my review and the radiologist's interpretation: Brain MRI WITH AND WITHOUT CONTRAST HISTORY: Seizures. r/o brain mass TECHNIQUE: Multiplanar multisequence MRI of the brain was performed both before and after the intravenous administration of contrast. COMPARISON STUDY: Head CT 09/17/2018. FINDINGS: There are no areas of restricted diffusion to suggest acute infarction. The midline structures are intact. The paranasal sinuses are clear. A few partially opacified left mastoid air cells. The right mastoid air cells are clear. The ventricles and sulci are within normal limits for age. There is no hematoma, midline shift. The major vascular flow-voids at the skull base are well maintained. Best seen on coronal postcontrast and coronal FLAIR image 11 there is a 5 mm focus of T2 hyperintensity suggestive of edema. There is a 2 mm focus of enhancement centered at this area. This appears to be within the internal capsule and abuts the anterior border of the left thalamus. IMPRESSION: A 2 mm enhancing nodule within the left internal capsule with mild surrounding edema. Given history of malignancy, a metastatic focus would be the diagnosis of exclusion. The differential diagnosis would also include a focus of demyelination or subacute infarct. However, these are considered less likely. Small focus of infection would also be considered unlikely given the location. Electronically signed by: Zackary Delatorre M.D. 09/17/2018 7:[address] head/brain wo con CLINICAL HISTORY: New onset seizure COMPARISON STUDY: 10/04/2012 TECHNIQUE: Axial CT of the brain is performed from the vertex to the skull base. IV contrast was not administered for this examination. A dose lowering technique was utilized adhering to the principles of ALARA. CT DOSE: 537.48 mGy.cm FINDINGS: No intra or extra-axial mass lesions are visualized. There is no CT evidence of acute cortical infarction. There is no evidence of midline shift. There is no acute hemorrhage. No calvarial fractures are visualized. There is a prominent cisterna magna unchanged the prior study. There is no evidence of pathologic ventricular dilatation. There is no evidence of acute sinusitis IMPRESSION: No acute intracranial findings Electronically signed by: Ryne Bucio M.D. 09/17/2018 4:27 PM ECG Data Attestation: I personally reviewed and interpreted this ECG as follows: Indication: weakness Rate (beats per minute): 120 Rhythm: sinus tachycardia Findings: no ST elevation and no ectopy Blood Pressure Blood Pressure Findings: Normal blood pressure Blood Pressure Disposition: further management by hospitalist SALLIE Venegas This is a 28-year-old male who presents to the ED with a chief complaint of a seizure. The patient had a seizure that lasted for about 30 seconds and had a postictal period for about 5-10 minutes. He is a diabetic and his blood sugar was checked shortly after and his blood sugar was 200. He has a history of metastatic testicular cancer that was in remission but came back in July. He is currently getting chemotherapy. The patient states that he fell last week and his left leg was swollen. On exam he has bilateral pedal edema. The patient is otherwise neurologically intact. No obvious trauma. He is recently on prednisone and Valtrex for shingles that seems to be resolving on his right scalp. A CT scan of the brain was negative for acute disease. The white blood cell count was 29,000 and the hemoglobin was 8.3. These are close to laboratory studies done on September 13 of this year. Glucose is 240. Urine revealed 2+ glucose but no infection. Brain MRI reveals a 2 mm enhancing nodule in the left internal capsule with some mild surrounding edema. This is concerning for metastatic lesion based on the patient's history. The patient was given dexamethasone 12 mg IV, per Dr. Herrera from oncology, with whom I spoke. The patient will be admitted by the hospitalist service for further inpatient evaluation and care. I spoke with Dr. Vasques. Impression & Plan Metastatic cancer to brain, Seizure Discharge Plan Visit Data Chief Complaint: Seizure ED Provider: Chance Goldstein Discharge Problem: Metastatic cancer to brain, Seizure Patient Disposition: Being Evaluated by Hospitalist Forms Stand Alone Forms: My [facility] [address] Prescriptions Prescriptions: No Action quetiapine [Seroquel] 25 mg Tablet PO DAILY RF: 0 furosemide 40 mg tablet 40 mg PO DAILY PRN (Reason: Edema) RF: 0 valacyclovir [Valtrex] 1 gram tablet 1 g PO TID RF: 0 prednisone [Deltasone] 20 mg tablet 40 mg PO UD RF: 0 morphine [MS Contin] 30 mg tablet extended release 30 mg PO Q8 RF: 0 insulin degludec [Tresiba FlexTouch U-100] 100 unit/mL (3 mL) insulin pen 21 unit subcut QPM RF: 0 oxycodone [Roxicodone] 5 mg tablet 10 mg PO Q6 PRN (Reason: Pain) RF: 0 celecoxib [Celebrex] 200 mg capsule 200 mg PO DAILY PRN (Reason: Pain) RF: 0 alprazolam [Xanax] 0.5 mg tablet 0.5 mg PO BID RF: 0 dextroamphetamine-amphetamine [Adderall] 15 mg tablet 15 mg PO BID RF: 0 insulin lispro [Admelog SoloStar U-100 Insulin] 100 unit/mL insulin pen See Label Instructions .ROUTE .COMPLEX RF: 0 multivitamin Tablet 1 tab PO DAILY RF: 0 Referrals Referrals: Kade Kelsey III, MD [Primary Care Provider] - The scribe's documentation has been prepared under my direction and personally reviewed by me in its entirety. I confirm that the note above accurately reflects all work, treatment, procedures, and medical decision making performed by me.
[2018-09-17] MEDS ORDERED: MoRPHine SULFATE 2 MG/ML CARP IV STA (20:45)
[2018-09-18] MEDS ORDERED: ONDANSETRON INJ 2 MG/ML 2 ML VIAL IV PRN (00:14)
[2018-09-18] MEDS ORDERED: FUROSEMIDE 40 MG TAB PO PRN (00:14)
[2018-09-18] MEDS ORDERED: MAGNESIUM HYDROXIDE SUSP 30 ML UDC PO PRN (00:14)
[2018-09-18] MEDS ORDERED: POLYETHYLENE (MIRALAX) 17 GM PACK PO PRN (00:14)
[2018-09-18] MEDS ORDERED: ALUMINUM/MAGNESIUM SUSP 30 ML UDC PO PRN (00:14)
[2018-09-18] MEDS ORDERED: CeleBREX 200 MG CAP PO PRN (00:14)
[2018-09-18] MEDS ORDERED: ACETAMINOPHEN 325 MG TAB PO PRN (00:14)
[2018-09-18] MEDS ORDERED: DEXAMETHASONE SOD INJ 4 MG/ML VIAL IV SCH (00:14)
[2018-09-18] MEDS ORDERED: LORazepam 1 MG/2 ML VIAL IV PRN (00:14)
[2018-09-18] MEDS ORDERED: PHARMACY GLYCEMIC MGMT CONSULT PRN (00:22)
[2018-09-18] MEDS ORDERED: DEXTROSE 50% 50 ML SYRINGE IV PRN (00:32)
[2018-09-18] MEDS ORDERED: CARBOHYDRATES FOR HYPOGLYCEMIA PO PRN (00:32)
[2018-09-18] MEDS ORDERED: GLUCOSE 10 TABS/TUBE PO PRN (00:32)
[2018-09-18] MEDS ORDERED: GLUCOSE 40% GEL 15 GM TUBE PO PRN (00:32)
[2018-09-18] MEDS ORDERED: GLUCAGON FOR INJ 1 MG VIAL IM PRN (00:32)
[2018-09-18] MEDS ORDERED: MoRPHine SULFATE CR 15 MG TABCR PO ONE (01:15)
[2018-09-18] MEDS ORDERED: VALACYCLOVIR HCL 500 MG TABLET PO ONE (01:15)
[2018-09-18] MEDS: INSULIN GLARGINE SOLOSTAR 100 UNITS/ML 3 ML PEN SC SCH ×2 (01:25→07:52)
[2018-09-18] MEDS: INSULIN ASPART 100 UNITS/ML 3 ML PEN SC SCH ×3 (01:26→13:21)
[2018-09-18] MEDS: DEXAMETHASONE SOD PHOSPHATE 4 MG in SYRINGE 0 ML IV SCH ×3 (01:29→13:19)
[2018-09-18] MEDS ORDERED: HYDROmorphone INJ 0.5 MG/0.5 ML SYR IV PRN (02:56)
[2018-09-18 06:00] LABS: Hematocrit (blood only) 26.6 % (42-52); Hemoglobin 8.2 g/dL (14.0-18.0); Mean Corpuscular Hgb Conc 30.8 g/dL (32-36); Mean Corpuscular Volume 82.4 fL (80-100); Mean Platelet Volume 8.4 fL (7.4-10.4); Platelet Count 484 K/uL (130-400); RDW Coefficient of Variation 22.7 % (11.5-14.5); RDW Standard Deviation 56.2 fL (36.4-46.3); Red Blood Count 3.23 M/uL (4.7-6.1); White Blood Count 25.92 K/uL (4.8-10.8)
[2018-09-18] MEDS ORDERED: ENOXAPARIN INJ 40 MG/0.4 ML SYR SQ SCH (06:00)
[2018-09-18] MEDS: OXYCODONE HCL IR 5 MG TAB (IMMEDIATE RELEASE) PO PRN ×2 (06:05→12:57)
[2018-09-18 06:35] LABS: Anisocytosis Present; Basophils # (auto) 0.06 K/uL (0-0.2); Basophils % (auto) 0.2 %; Immature Granulocytes # (auto) 1.58 K/uL (0.00-0.02); Immature Granulocytes % (auto) 6.1 %; Lymphocytes # (auto) 1.55 K/uL (1.2-3.4); Monocytes # (auto) 0.81 K/uL (0.11-0.59); Monocytes % (auto) 3.1 %; Neutrophils # (auto) 21.92 K/uL (1.4-6.5); Neutrophils % (auto) 84.6 %; Polychromasia 1+; Tear Drop Cells 1+
[2018-09-18 06:37] LABS: BUN Creatinine Ratio 21.6 (10-20); Creatinine Clr Calc Pharmacy 85.7 ml/min; Est GFR (African American) 99.1; Est GFR (Non-African American) 85.5; Potassium 4.8 mmol/L (3.5-5.1)
--- NOTE | 2018-09-18 06:40 | Ultrasound Report ---
US venous doppler LE LT CLINICAL HISTORY: Left lower extremity swelling COMPARISON STUDY: August 29, 2018 FINDINGS: Real-time and color flow Doppler imaging were performed. Flow was seen within the femoral, popliteal and calf veins with no intraluminal thrombus demonstrated. The saphenous vein is patent. Th ere is soft tissue edema within the left calf. IMPRESSION: No evidence of left lower extremity DVT. Electronically signed by: Ryne Bucio M.D. 09/18/2018 6:39 AM
--- NOTE | 2018-09-18 06:43 | XRay Report ---
XR hip LT 2-3V w pelvis CLINICAL HISTORY: fall to left hip, history of hip replacement trauma COMPARISON: None. DISCUSSION: Increased soft tissue density over the soft tissue pelvis most likely related to bladder distention. Evidence for left hip pinning procedure. Evidence for loosening of the screw and pin. Det erioration of the superior aspect of the femoral head with developing collapse of the superior femora l head margin. This would indicate underlying avascular necrosis. No evidence for acute fracture. No evidence for acetabular protrusion. There is no evidence for soft tissue swelling. IMPRESSION: 1. Operative changes consistent with left hip pinning with loosening of the screw and pin. 2. Avascular necrosis of the superior aspect left femoral head. 3. Probable bladder distention. The above report was generated using voice recognition software. It may contain grammatical, syntax or spelling errors. Electronically signed by: Onofre Alarcon M.D. 09/18/2018 6:42 AM
[2018-09-18] MEDS: MoRPHine SULFATE CR 15 MG TABCR PO SCH ×2 (07:29→13:25)
[2018-09-18] MEDS: VALACYCLOVIR HCL 500 MG TABLET PO SCH ×2 (07:31→14:04)
[2018-09-18] MEDS ORDERED: ALPRAZolam 0.5 MG TABLET ONE (07:46)
[2018-09-18] MEDS ORDERED: DEXTROAMPHETAMINE AMPHETAMINE 15 MG PO SCH (09:00)
[2018-09-18] MEDS ORDERED: NICOTINE 21 MG/24 HR TDSY TD SCH (09:00)
[2018-09-18] MEDS ORDERED: QUETIAPINE FUMARATE 25 MG TABLET PO SCH (09:00)
[2018-09-18] MEDS ORDERED: PANTOprazole 40 MG TAB PO SCH (09:00)
[2018-09-18] MEDS ORDERED: ALPRAZolam 0.5 MG TABLET PO SCH (09:00)
--- NOTE | 2018-09-18 09:15 | Radiation OncologyConsultation ---
Date of Consultation September 18, 2018 Assessment & Plan (1) Metastatic cancer to brain: Mr. Leigh is a 28-year-old male presented with a large left testicular mass. 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 This was limited to the testes and epididymis ( pT1). No LVI was noted. Patient was treated with systemic chemotherapy but subsequently had a recurrence with abdominal disease. He completed 1 cycle of salvage chemotherapy at the end of August. Yesterday he experienced 2 seizures and presented to the emergency department and was subsequently admitted. An MRI showed a 2 mm lesion in the left internal capsule with evidence of edema on FLAIR. I have reviewed these images with radiology. Although the lesion is small the presence of the edema is compatible with a solitary metastatic site. I discussed with this patient the use of SRS to treat the solitary lesion. I did tell him that there was not histologic verification of metastatic brain lesion however with evidence of diffuse abdominal metastasis from an aggressive testicular primary it is highly probable that this lesion is consistent with a solitary metastatic site. I told him we could wait to confirm that this is a metastatic lesion by waiting until it grew or additional lesions appeared. Patient understands that it is preferable to treat this site while small and he is agreed to a course of SRS therapy. We will have the patient come to our department for a CT simulation with a mask for immobilization. We will then create an SRS plan that will likely be approved by next week. We will coordinate the initiation of treatment with Dr. Cruz. Treatment plan. SRS treatment to solitary brain lesion. This chart was completed in part utilizing [employer] Speech Voice Recognition software. Grammatical errors, random word insertions, pronoun errors and incomplete sentences are occasional consequence of this system due to software limitations, ambient noise and hardware issues. Any formal questions or concerns about the content, text or information contained within the body of this dictation should be directly addressed to the provider for clarification. Ras Connelly MD Department of Radiation Oncology [facility] Present on Admission?: Yes History of Present Illness Reason for Consultation: We were asked to see the patient due to the finding of a solitary lesion on brain MRI consistent with an early metastatic site. Attending Physician: Gayathri Vasques, DO History of Present Illness Mr. Bowens is a 28-year-old male is who presented late June 2017. An ultrasound at that time confirmed the presence of a large mass in the left testicle. 06/24/2017. Patient undergoes radical left orchiectomy. 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 The tumor was limited to the testes and epididymis (pT1). No lymphovascular invasion was identified. 08/06/2017. Postop tumor markers were obtained. HCG was normal (less than 2) and LDH (144) with a mildly elevated AFP (44). 08/15/2017. Patient undergo CT scan of the abdomen and pelvis with contrast. This revealed a heterogeneous 17 x 11 cm retroperitoneal lymph node mass extending from the left renal pelvis to the left iliac chain. The mass encased the left ureter and abdominal aorta by 270 degrees. It also invaded the left psoas musculature. There was no evidence of visceral or non-visceral metastasis seen. 09/18/2017. Patient was started on systemic chemotherapy by Dr. Cruz. This consisted of 4 cycles of EP. 2 cycles were received at [place] with his final cycle on 12/09/2017. 12/09/2017. Patient completed chemotherapy. Posttreatment AFP was normal at 1.8. Scans however revealed a large residual retroperitoneal mass. 01/29/2018. Patient undergoes RPLND and left nephrectomy due to involvement of tumor at [facility]. This residual mass proved to be a teratoma with no high risk features and no evidence of residual yolk sac tumor. His nodes were negative. The patient apparently presented in July 2018 having been lost to follow- up. His tumor markers were drawn with an AFP greater than 6000. He returned to see Dr. Cruz to discuss additional systemic therapies. 07/23/2018. Patient was admitted with diffuse abdominal pain and abdominal distention. CT scan of the abdomen and pelvis was performed which showed interval development of multiple heterogeneous large mass scattered throughout the abdomen and pelvis consistent with interval development of mild peritoneal carcinomatosis in the setting of metastatic disease. CT scan of the chest shows no lytic or blastic disease with development of mediastinal adenopathy suspicious for neoplasm. 08/13/2018. Dr. Cruz plan 6 cycles Paclitaxell plus ifosfamide plus cisplatin. Patient remained admitted for low blood counts but did ultimately have what appeared to be a fairly good clinical response. He was ultimately discharged. 09/17/2018. Patient presented to the emergency department with a complaint of episodic seizure that started 1 hour prior to his presentation. Reportedly there were 2 seizures prior to admission the first lasting 4-5 seconds but the second lasting 30-40 seconds. The patient had some post seizure confusion. Patient is on Valtrex and prednisone for shingles that developed 1 week prior. He underwent a non-contrast CT of the head which was unremarkable. 09/17/2018. Patient undergoes MRI thin slice which revealed a 2 mm enhancing nodule within the left internal capsule with mild surrounding edema. Given the history of malignancy metastatic focus was felt to be the diagnosis of exclusion 09/18/2018. Radiation oncology was asked to see the patient in referral for evaluation and discussion of the palliative treatment options. 08/22/2018. Patient undergoes repeat CT of the abdomen and pelvis due to suspicion of progressive disease. Conglomerate masses seen about the pelvis measuring up to 8.9 x 14.8 cm. Masses about the left mid abdomen measure up to 6.7 cm and have increased in size. Adenopathy in the left inguinal measuring 3.4 x 2.0 all consistent with progressive disease. Allergies Allergy/AdvReac Type Severity Reaction Status Date / Time No Known Allergies Allergy Verified 08/28/18 11:32 Home Medications Home Medications Medication Instructions Recorded Confirmed Type alprazolam [Xanax] 0.5 mg PO BID 07/25/18 09/17/18 History celecoxib [Celebrex] 200 mg PO DAILY PRN 07/25/18 09/17/18 History dextroamphetamine-amphetamine 15 mg PO BID 07/25/18 09/17/18 History [Adderall] insulin lispro [Admelog SoloStar See Label Instructions .ROUTE 07/25/18 History U-100 Insulin] .COMPLEX multivitamin 1 tab PO DAILY 07/25/18 09/17/18 History furosemide 40 mg PO DAILY PRN 09/17/18 09/17/18 History insulin degludec [Tresiba 21 unit SUBCUT QPM 09/17/18 09/17/18 History FlexTouch U-100] morphine [MS Contin] 30 mg PO Q8 09/17/18 09/17/18 History oxycodone [Roxicodone] 10 mg PO Q6 PRN 09/17/18 09/17/18 History prednisone [Deltasone] 40 mg PO UD 09/17/18 09/17/18 History quetiapine [Seroquel] 0 mg PO DAILY 09/17/18 09/17/18 History valacyclovir [Valtrex] 1 g PO TID 09/17/18 09/17/18 History Patient History Medical History Chronic pain syndrome Severe protein-calorie malnutrition Thrombocytopenia Type 1 diabetes mellitus with hypoglycemia Pancytopenia due to antineoplastic chemotherapy CKD (chronic kidney disease) stage 2, GFR 60-89 ml/min Teratoma of pelvis (Chronic) Testis cancer (Chronic) Cancer Testicular CA with mets Anxiety Diabetes (Chronic) Avascular necrosis of femur head, left Surgical History History of nephrectomy History of orchiectomy Family History Grandfather Heart attack Other Cancer Social History marital status: Single Current Living Situation: Family and Significant Other Other Information That Helps Us Care for You: Yes (active shingles) Feels Safe at Home: Yes Safety Concerns: Feels Safe At This Time Smoking Status: Current every day smoker Tobacco Type: cigarettes Cigarettes per Day: 20-30/day Do You Dip or Chew Tobacco: No Tobacco Cessation Education Requested by Patient: No Hx Alcohol Use: No Hx Substance Use: Yes substance use type: marijuana Last Used Substance: Unknown Beliefs That Will Affect Care: None Preferred Language: [place] Communication Ability: Effective Php Mysql Developer Required: No Review of Systems Since admission his appetite has greatly improved. He is noted no visual changes. Ear, Nose, Mouth, Throat: no mouth lesions Respiratory: no cough, no chest congestion and no dyspnea Cardiovascular: no chest pain and no chest pain at rest Gastrointestinal: + abdominal pain (Currently stable with pain regimen); no nausea and no vomiting Musculoskeletal: no swelling and no myalgia Resolving herpetic rash following dermatome C2. No lesions are noted on the nose. Neurologic: as per Subjective / HPI He is noted no changes in the strength of his arms or legs. Psychiatric: no behavioral changes Endocrine: + fatigue Hematologic / Lymphatic: no lymphadenopathy Allergy / Immunological: + rash (Related to herpes zoster) Physical Exam 2 Vital Signs (Past 24 Hours): Last Vital Signs Temp 36.6 C 09/18/18 07:45 Pulse 103 H 09/18/18 07:45 Resp 18 09/18/18 07:45 BP 118/66 09/18/18 07:45 Pulse Ox 95 09/18/18 07:45 Constitutional: + thin; no acute distress Eyes: PERRL, conjunctivae normal, anicteric sclerae ENMT: external ear and nose normal, oropharynx normal Neck: trachea midline, no thyromegaly Respiratory: normal respiratory effort, lungs clear to auscultation Cardiovascular: RRR, no murmur, no edema Chest (Breasts): Chest: normal inspection of chest Gastrointestinal (Abdomen): normal bowel sounds, soft, nontender, no hepatosplenomegaly Musculoskeletal: There is no edema. Skin: + rash Neurologic: Good strength and coordination of upper and lower extremities. Psychiatric: A+Ox3, euthymic affect Orientation: alert Lymphatic: no cervical or axillary lymphadenopathy Results Additional Studies 09/17/18 15:18 CT head/brain wo con Stat 09/17/18 15:19 ECG 12 lead EKG Stat 09/17/18 17:08 MR brain seizure wo/w con Stat 09/18/18 00:14 US venous doppler LE LT Urgent XR hip LT 2-3V w pelvis Routine Time Spent Attending This documentation has been prepared in full or in part by Janis TA acting as a scribe under my direction. I, Dr. Connelly personally performed the services described and have reviewed the documentation to ensure its accuracy. I spent 45 minutes including direct face to face interaction with the patient which included obtaining clinical information, performing a physical exam, review of MRI with radiology, discussion with referring physician and recommending a plan of action and answering questions. JAMAL
--- NOTE | 2018-09-18 10:09 | Consultation Report ---
DATE OF CONSULTATION: 09/18/2018 MEDICAL ONCOLOGY CONSULTATION REASON FOR CONSULTATION: A 28-year-old gentleman with metastatic mixed germ cell tumor, admitted to hospital status post tonic-clonic seizure. HISTORY OF PRESENT ILLNESS: Brett Leigh is a pleasant but unfortunate 28-year-old gentleman well known to [facility], currently under Dr. Bairon Cruz's care for metastatic mixed germ cell testicular cancer. Mr. Leigh was recently hospitalized with disease progression and was treated with combination chemotherapy (TIP). Brett had a pretty rough hospital stay clinically manifested by difficult pain control, poor appetite, and adverse effects associated with chemotherapy. However, I was very pleased when I saw him at bedside today, his abdominal protrusion has improved dramatically as has his lower extremity edema which were profound during his previous admission. However, over the past couple of days, Brett has had a couple of events, particularly a fall which took place when going to the doctor and apparently traumatized his left lower extremity. Extent of injury is unclear at this point. Additionally, his reported a tonic-clonic seizure yesterday. Apparently he was in his bed at home around 1:30 yesterday afternoon when he exhibited a jerking motion. His fiance thought initially it was Brett being startled. At about 2:00 then, he once again started jerking motion followed by a tonic-clonic seizure described as rigidity in his arms and bilateral foot twitching. She believes the seizure lasted for about 90 seconds and there was a notable postictal period. EMS was activated. At the time of his initial evaluation, he was found to be drowsy, again most likely postictal, but awake and alert. Brett recently developed shingles encompassing the right side of his forehead extending back to the occiput. He developed a rash back on 09/08/2018 and has been treated with Valtrex. I was contacted by the ER physician last night who advised me of a normal noncontrast CT scan. I subsequently recommended MRI which revealed a 2-mm lesion within the internal capsule with vasogenic edema. I then instructed the ER physician to bolus him with IV dexamethasone 12 mg followed by 4 mg q. 6 hours intravenously. At bedside today, I was again very pleased with Brett' appearance. His belly is much less protruded, lower extremity edema previously documented has subsided significantly. Brett was coherent, polite, and appropriate during today's interview. He has been informed of this finding. Dr. Connelly from radiation oncology was with me at bedside to discuss radiation treatment moving forward. PAST MEDICAL HISTORY: Significant for metastatic testicular cancer, insulin-dependent diabetes mellitus, avascular necrosis of the left hip, chronic kidney disease, depression, tobacco abuse, and anemia. PAST SURGICAL HISTORY: Left orchiectomy and left nephrectomy. CURRENT MEDICATIONS: Include Xanax 0.5 mg p.o. b.i.d., Celebrex 200 mg p.o. p.r.n., Adderall 15 mg p.o. b.i.d., insulin lispro dose unknown, multivitamin 1 p.o. daily, furosemide 40 mg p.o. daily, Tresiba 21 units subQ q.p.m., MS Contin 30 mg p.o. q.8h., Roxicodone 10 mg p.o. q.6h. p.r.n., prednisone 40 mg p.o. daily, Seroquel dose unknown, Valtrex 1000 mg p.o. t.i.d. ALLERGIES: No known drug allergies. SOCIAL HISTORY: The patient resides with his fiance, he is a cigarette smoker. Negative for tobacco. He is a marijuana user. FAMILY HISTORY: Positive for cancer and coronary artery disease. REVIEW OF SYSTEMS: GENERAL: For the most part, Brett has maintained his weight and appetite. He denies any fevers, chills, or sweats. SKIN: He recently developed right frontal zoster rash extending to the right occiput. HEENT: He denies headaches, lightheadedness, or dizziness. No acute visual or hearing deficits. No sinus symptoms, sore throat, or dysphagia. LYMPHATIC: No history of lymphoproliferative disease. CARDIAC: No history of coronary artery disease, no angina or palpitations. PULMONARY: Negative for COPD. He is not short of breath, dyspneic, or orthopneic. No cough or hemoptysis. GASTROINTESTINAL: He denies abdominal pain. No nausea, vomiting, diarrhea, constipation, hematochezia, or melenotic stools. GENITOURINARY: No hematuria, dysuria, urinary incontinence. PSYCHIATRIC: Positive for anxiety, positive for attention deficit disorder, previously diagnosed. NEUROLOGIC: Positive for tonic-clonic seizure. He denied any preceding headaches, lightheadedness, or dizziness. He has no evidence of motor or sensory disruption. ENDOCRINE: Positive for diabetes mellitus. HEMATOLOGIC: Cytopenias attributable to previous chemotherapy. PHYSICAL EXAMINATION: GENERAL: A very pleasant 28-year-old gentleman, awake, alert and appropriate, in no acute distress at this time. VITAL SIGNS: Temperature 36.6, pulse 103, respiratory rate 18, blood pressure 118/66. SKIN: Again, crusted over zoster rash encompassing the right frontal to the right occiput. Multiple excoriations noted. HEENT: Head is atraumatic, normocephalic. Eyes, PERRLA, EOMI. Sclerae nonicteric. Nares are patent without rhinorrhea or discharge. Throat clear. Tongue midline. No evidence of thrush. NECK: Supple without JVD or thyromegaly. I could not appreciate cervical, supraclavicular, or axillary lymphadenopathy. HEART: Regular rate and rhythm. No clicks, rubs, murmurs, or gallops. LUNGS: Clear to auscultation bilaterally. ABDOMEN: Much less protruded, softer. No rigidity or guarding. No palpable hepatosplenomegaly. EXTREMITIES: No clubbing, cyanosis, or edema. He is moving all extremities equally. Pulses are equal as well in all 4 quadrants. No significant reduction in edema noted from previous admission. NEUROLOGIC: He is awake, alert and oriented x3. Cranial nerves II-XII are intact. No gross motor or sensory deficits are noted. LABORATORY DATA: WBC count 25,920, hemoglobin 8.2, platelet count 484,000, absolute neutrophil count 21,920. Sodium 134, potassium 4.8, chloride 99, carbon dioxide 26, BUN 25, creatinine 1.17, albumin 2.3, alkaline phosphatase elevated at 167. He has got 2+ glucose in his urine. RADIOGRAPHIC DATA: MRI of the brain, 2-mm enhancing nodule within the left internal capsule with mild surrounding edema suspicious for a metastatic deposit. IMPRESSION: 1. Tonic-clonic seizure. 2. A 2-mm enhancing nodule within the left internal capsule, suspected brain mets. 3. Hypoalbuminemia. 4. Metastatic mixed germ cell testicular cancer. 5. Leukocytosis attributable to stress and corticosteroids. 6. Normocytic normochromic anemia. 7. Reactive thrombocytosis. PLAN: Brett Leigh is a pleasant 28-year-old patient of Dr. Cruz's currently under his management for metastatic mixed germ cell testicular cancer. Brett received his first course of combination TIP during admission around [place] time. At that time, clinically he looked much worse, was not sure if he was going to survive. He did manage to finish the rigorous course of chemotherapy with the expected cytopenias. Dr. Cruz has been following Brett pretty regularly in the office and planned to readminister salvage chemotherapy in the next week or so. Now that he has been admitted with new-onset seizure and probable small metastatic deposit, we will proceed with radiation therapy as per Dr. Connelly's discretion. He continues regular dexamethasone and encouraged incorporation of both proton pump inhibition as well as stringent DVT prophylaxis. Brett was initially refusing Lovenox. I stressed the importance in the setting of brain mets and chronic corticosteroid therapy the risk of DVT is quite high. Brett has agreed to receive prophylactic anticoagulation. Advised Dr. Cruz of this gentleman's admission and may try to coordinate to administer his next cycle of TIP while inhouse. Thank you very much for assisting us in the care of this very pleasant gentleman. I will continue to follow Brett during his hospital stay. DELBERTD
[2018-09-18] MEDS ORDERED: INSULIN GLARGINE SOLOSTAR 100 UNITS/ML 3 ML PEN SC ONE (13:15)
--- NOTE | 2018-09-18 13:15 | Palliative Care Consultation ---
Date of Consultation September 18, 2018 Assessment & Plan (1) Palliative care encounter: (1) Palliative care encounter: Patient is a 28-year-old male who presented to ER on 09/17 after 2 seizures , no h/o sz in the past. He was found to have a 2mm lesion in the internal capsule on MRI. He just returned from simulation scans for XRT. Pt PMH significant for metastatic testicular cancer diagnosed in June 2017. 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 Patient 's alpha-fetoprotein remained elevated after resection-in August 2017 CT scan showed large retroperitoneal mass involving the left ureter and aorta. Patient underwent chemo from September through December-on 01/29 he underwent surgical resection of the mass-fianc reports that they were told it was removed completely. Patient was lost to follow-up until this August when he presented with an enlarged abdomen, ascites and lower extremity edema. Patient was restarted on chemo and had been doing well at home until new onset seizures on 09/17. Patient has signed paperwork naming his fiance as his POA-flacoanc on last admission. -CODE STATUS is currently a FULL CODE. - New seizures - + brain lesion - on Decadron and planned for XRT - Patient's pain was controlled on MS Contin 30 mg Q 8 hours with as needed oxycodone until he developed L facial shingles, he required more prn pain meds - shingle rash now scabbed over and pain is improving. - Pt with clinical response to chemo - HSM much decreased and no palpable ascites on exam, LE edema is much improved. (2) Cancer related pain: Patient's pain had been well controlled on MS Contin 30 mg every 8-with as needed oxycodone for breakthrough pain. Patient required 2 doses of 10 mg of oxycodone and 1 IV Dilaudid overnight for pain. (3) Metastatic cancer to brain: Diagnosed on MRI on 09/17 after he presented with new onset seizures- patient is planned for XRT, continue Decadron as per oncology (4) Seizure: New-due to brain metastases, plan for XRT, continue Decadron (5) Testicular cancer: Plans to continue chemo as per oncology-responding well clinically Descendance of testis: descended Laterality: left Qualified Code (s): C62.12 - Malignant neoplasm of descended left testis History of Present Illness Reason for Consultation: Patient seen by palliative care on previous admissions , consulted to assist with pain management as well as continued goals of care Requesting Physician: Dr Kimball Attending Physician: Mary Rucker History of Present Illness Patient seen by palliative care on his last admission on 08/17 through 09/03. Patient is a 28-year-old male who presented to ER on 09/17 after 2 seizures, no h /o sz in the past. He was found to have a 2mm lesion in the internal capsule on MRI. He just returned from simulation scans for XRT. Pt PMH significant for metastatic testicular cancer diagnosed in June 2017. 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 Patient's alpha- fetoprotein remained elevated after resection-in August 2017 CT scan showed large retroperitoneal mass involving the left ureter and aorta. Patient underwent chemo from September through December-on 01/29 he underwent surgical resection of the mass-fianc reports that they were told it was removed completely. Patient was lost to follow-up until this August when he presented with an enlarged abdomen, ascites and lower extremity edema. Patient was restarted on chemo and had been doing well at home until new onset seizures on 09/17. Patient seen and examined, his fiance at bedside. Patient in good spirits, no acute distress. Market decrease in his abdominal distention and lower extremity edema. Patient denies any headache, change in vision, states his pain is "okay". Patient with right sided facial shingles rash -all lesions scabbed over. Allergies Allergy/AdvReac Type Severity Reaction Status Date / Time No Known Allergies Allergy Verified 08/28/18 11:32 Home Medications Home Medications Medication Instructions Recorded Confirmed Type alprazolam [Xanax] 0.5 mg PO BID 07/25/18 09/17/18 History celecoxib [Celebrex] 200 mg PO DAILY PRN 07/25/18 09/17/18 History dextroamphetamine-amphetamine 15 mg PO BID 07/25/18 09/17/18 History [Adderall] insulin lispro [Admelog SoloStar See Label Instructions .ROUTE 07/25/18 History U-100 Insulin] .COMPLEX multivitamin 1 tab PO DAILY 07/25/18 09/17/18 History furosemide 40 mg PO DAILY PRN 09/17/18 09/17/18 History insulin degludec [Tresiba 21 unit SUBCUT QPM 09/17/18 09/17/18 History FlexTouch U-100] morphine [MS Contin] 30 mg PO Q8 09/17/18 09/17/18 History oxycodone [Roxicodone] 10 mg PO Q6 PRN 09/17/18 09/17/18 History prednisone [Deltasone] 40 mg PO UD 09/17/18 09/17/18 History quetiapine [Seroquel] 0 mg PO DAILY 09/17/18 09/17/18 History valacyclovir [Valtrex] 1 g PO TID 09/17/18 09/17/18 History Patient History Medical History Chronic pain syndrome Severe protein-calorie malnutrition Thrombocytopenia Type 1 diabetes mellitus with hypoglycemia Pancytopenia due to antineoplastic chemotherapy CKD (chronic kidney disease) stage 2, GFR 60-89 ml/min Teratoma of pelvis (Chronic) Testis cancer (Chronic) Cancer Testicular CA with mets Anxiety Diabetes (Chronic) Avascular necrosis of femur head, left Surgical History History of nephrectomy History of orchiectomy Family History Grandfather Heart attack Other Cancer Social History marital status: Single Current Living Situation: Family and Significant Other Other Information That Helps Us Care for You: Yes (active shingles) Feels Safe at Home: Yes Safety Concerns: Feels Safe At This Time Smoking Status: Current every day smoker Tobacco Type: cigarettes Cigarettes per Day: 20-30/day Do You Dip or Chew Tobacco: No Tobacco Cessation Education Requested by Patient: No Hx Alcohol Use: No Hx Substance Use: Yes substance use type: marijuana Last Used Substance: Unknown Beliefs That Will Affect Care: None Preferred Language: Uzbek Communication Ability: Effective Electrical Accessories Ii Assembler Required: No Review of Systems Constitutional: no fever Patient denies changes to his vision Ear, Nose, Mouth, Throat: no problem reported Respiratory: no problem reported Cardiovascular: no problem reported Gastrointestinal: no constipation Genitourinary (Male): + problem reported Metastatic testicular cancer Musculoskeletal: + problem reported Avascular necrosis of left hip Rash on right side of face including forehead Neurologic: + problem reported New onset seizures, denies headache History of depression/anxiety, tobacco dependence Insulin-dependent diabetes Anemia Physical Exam 2 Vital Signs (Past 24 Hours): Last Vital Signs Temp 36.6 C 09/18/18 07:45 Pulse 125 H 09/18/18 11:06 Resp 18 09/18/18 11:06 BP 112/70 09/18/18 11:06 Pulse Ox 98 09/18/18 11:06 Constitutional: NAD Eyes: EOMI ENMT: Normal hearing Respiratory: Lungs clear, respirations unlabored Cardiovascular: Regular rhythm, 1+ edema to just above the mid be Gastrointestinal (Abdomen): Soft, nontender to palpation, not distended Musculoskeletal: Full range of motion, normal gait Skin: Rash right upper face-all lesions scabbed over Neurologic: No focal deficits Psychiatric: Appropriate mood and affect Time Spent Attending Total time spent 50 minutes with greater than 50% of the time spent at bedside discussing plan of care with patient and fianc
[2018-09-18] MEDS ORDERED: INSULIN HUMAN REGULAR PER UNIT 5 UNITS in SYRINGE 4.95 ML IV SCH (13:30)
--- NOTE | 2018-09-18 13:58 | Pharmacy Report ---
Glycemic Control Consultation - Date of Service September 18, 2018 - Scope Scope: Glycemic Pharmacist consulted by Dr Kimball on 09/17/18 for glycemic control and to write orders per [facility] inpatient glycemic control protocol - Objective Weight: 63.3 kg Accuchecks BSG (last 24hrs): 09/17/18 09/18/18 09/18/18 14:47 00:18 05:48 Glucose 240 H 308 H POC Glucose 185 H 09/18/18 09/18/18 09/18/18 07:50 12:54 12:56 Glucose POC Glucose 319 H 390 H* 409 H* Laboratory Data (last 24hrs): 09/17/18 09/18/18 14:47 05:48 Potassium 4.5 4.8 Carbon Dioxide 26 26 Anion Gap 9.0 8.0 Creatinine 1.26 1.17 Est Cr Clr Drug Dosing 84.1 85.7 Beta-Hydroxybutyric Acd 1.19 - Recent Pertinent Medications Outpatient Anti-diabetic Regimen: * Tresiba 21 units HS, lispro SS * A1c = 7.5 % on 08/26/18 The patient is currently receiving: * Basal insulin: Lantus 10 units every 12 hours * Correctional Insulin: Novolog Correction per scale ACHS Goal Range: Low 140 mg/dL - High 180 mg/dL Correction Factor: 35 mg/dL/unit * Prandial insulin: Per carb ratio of 1 unit per 20 grams CHO consumed * Oral Agents: none Risk Factors for Insulin Resistance: * Steroids: received dexamethasone 12 mg IV x1 in ER and is currently ordered dexamethasone 4 mg q6h * Diet: DM1 - Assessment & Plan Assessment & Plan: ASSESSMENT: * 28-year-old male who presented to ER on 09/17 after new onset of seizures * PMH: metastatic testicular cancer diagnosed in June 2017 * MRI of head revealed enhancing lesion. Patient given dexamethasone 12mg IV x1 in ER and then started on dex 4mg q6h to help with inflammation * POC glucose this AM was 319. Goal range was changed to 120-150 and CF/CR tightened to 25 and 8 this morning. * POC at lunch was 390. Repeat surgar was 409. Per nurse, patient had just consumed a regular Pepsi. Nurse also notes that patient's girlfriend just arrived with a dozen doughnuts. One time dose of Lantus 10 units and 5 units IV insulin given for hyperglycemia. * Nurse also notes patient is actively dying. For this reason, trying to avoid placing patient on insulin drip at this time. PLAN FOR INPATIENT GLYCEMIC CONTROL: * Basal insulin * Lantus per following scale: * If BSG < 140, give 12 units * If BSG 140 or greater, give 15 units * Bolus insulin * NovoLog per scale ACHS or Q6hrs while NPO * Goal Range: Low 120 mg/dL - High 150 mg/dL * Tightened CF/CR further to 20 and 6 * Overnight checks ordered for 0000 and 0400 * Please note that the plan above was derived based on current level of insulin resistance and hospital stress. These recommendations are appropriate for inpatient admission only. Plan of care upon discharge will need to be reassessed to avoid potential outpatient hypo/hyperglycemia. Thank you.
[2018-09-18 15:43] VITALS: PULSE 103; TEMP 98.8; O2SAT 93
[2018-09-18 16:26] VITALS: BP 116/81
--- NOTE | 2018-09-18 20:08 | Discharge Summary ---
Date of Service September 18, 2018 Admission HPI Per Admitting Provider Brett Leigh is a 28 y.o male with history of metastatic testicular cancer, DM1 , CKD2, Pneumonia, Depression, Chronic Anxiety, avascular necrosis of the femur who presents to the ED after new-onset seizure. History per willy who is at bedside. States that he was sitting up in bed this afternoon around 1330 when he exhibited a jerking motion which she initially thought was a startle movement. At 1400 he exhibited the jerking motion again followed by tonic- clonic seizure described as rigidity of both arms pulled towards chest and bilateral twitching of feet. States that the seizure seemed to last forever but now thinks that it lasted for 90 seconds. Reports having difficulty laying the patient on his side during the seizure. EMS was called and Brett was brought to [facility] ED. He is currently drowsy but by the end of the encounter is awake and alert. Denies headache or body pain but complains of feeling hungry. Appetite has been good as he takes Marinol as needed for appetite enhancement. He has been taking plenty of fluids and voiding without difficulty. He also has history of shingles outbreak on forehead that started on 09/08/18. He is currently being treated with Valtrex for an undetermined amount of time. Willy reports that he had a recent fall to left him and knee was injured in the process. States that left lower leg is now more swollen than right lower leg. Additional history: Willy states that over the past 2 weeks he has become more aggressive with emotional lability. Has been physically aggressive towards willy and his mother. He also has reported suicidal ideation with plan to shoot self. After physical aggression he becomes tearful and apologetic. He currently denies suicidal ideation. Of note the patient has history of metastatic testicular cancer that was diagnosed in June of 2017 after presenting with a scrotal mass. He required left orchectomy on 06/24/2017 and is s/p 4 cycles of chemotherapy followed by salvage therapy in August of 2018. He was lost to f/u for 5 months following his left nephrectomy in December of 2017. ED Course: Given Ativan, Dexamethasone, Morphine, and IVF. MRI of Brain and CT head completed. Past Medical History: 1. Testicular cancer with metastatic disease 2. IDDM 3. Avascular Necrosis of left hip 4. CKD II 5. Depression 6. Tobacco Abuse 7. Anemia Surgical History: 1. Left Orchiectomy 2. Left Nephrectomy Social History: Lives with fiance and parents. Is unemployed His mother is an alcoholic. Smokes marijuana regularly. Smokes 1.5ppd of tobacco. Denies alcohol use. Principal Diagnosis Seizure Secondary to Internal Capsule lesion suspicious for testicular cancer metastasis Discharge Exam General: A&Ox3. NAD. Cooperative. HEENT: Atraumatic, normocephalic. PERLAA. EoM Intact. No visual field deficits. No tongue bite davies. Vesicular, healing rash present on R V1 distrubtion, no ocular involvement. Pulm: CTAB A&P. -wheezes, -rales, -rhonchi. Symmetrical chest rise. No increased work of breathing. No respiratory distress. Cardiac: RRR, -mrg. Radial pulses intact and symmetrical. Femoral pulses intact and symmetrical. Abdominal: mild tenderness in LLQ, RLQ chronic. BS present. Extremity: Generalized edema, pitting edema present in the legs in the thigh bilaterally. Finger flexion/extension, elbow flexion/extension, hip flexion, knee flexion/ extension, ankle dorsi/plantarflexion intact with 5/5 strength. Discharge Data Allergies Allergy/AdvReac Type Severity Reaction Status Date / Time No Known Allergies Allergy Verified 08/28/18 11:32 Consultations 09/17/18 20:22 ED Decision to Admit Stat 09/18/18 00:14 Consult Case Management - Discharge Planning Routine Consult Hematology Routine Consult Palliative Care Routine 09/18/18 02:22 Consult Radiation Oncology Routine Ordered Studies 09/17/18 15:18 CT head/brain wo con Stat 09/17/18 17:08 MR brain seizure wo/w con Stat 09/18/18 00:14 US venous doppler LE Urgent Hospital Course (1) Seizure: Brett was admitted following a tonic-clonic seizure. Brain MRI showed a 2mm enhancing lesion suspicious for metastatic testicular cancer. CT-H did not show any hemorrhage or infarct, no mass shift. HemeOnc/RadOnc were consulted. He recieved dexamethasone and stabalized with improvement in his mental status. He was kept on seizure precautions and did not have any repeat seizures. He was NOT started on antiepileptics, although these would be considered if he had another seizure. RadOn performed a simulation CT scan in anticipation of SRS therapy next week. No changes to his chemotherapy was recommended. He was discharged on dexamethasone 4mg Q8H per Onc and scheduled to followup with Oncology the next day. He will be called for scheduling by radiation oncology the following week. (2) Testicular cancer: Brett has a history of testicular cancer diagnosed in 2017 with subsequent spread to his kidney leading to orchiectomy and left nephrectomy. He was lost to followup following his nephrectomy in 2018, on return he was found to have an omental mass consistent with recurrence and underwent salvage chemotherapy. He is followed by Dr. Cruz with further chemotherapy planned this month. No changes and chemotherapeutic interventions were recommended by oncology, he was discharged to followup with Dr. Cruz the next day. (3) Type 1 diabetes mellitus with hypoglycemia: Brett is insulin dependent. He was maintained on insulin degludec 12U at night and lispro SSI with glucose checks AC/HS. His blood sugars were elevated to 240-300 in context of dexamethasone treatment. 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 (4) Shingles: Brett had evidence of a V1 distribution shingles reactivation on his R forehead currently healing. he was treated with valtrex during admission with no ocular involvement or vision compromise. Lesions were in the crusting phase, healing well. He was discharged to continue his daily valtrex regimen. (5) CKD (chronic kidney disease) stage 2, GFR 60-89 ml/min: Brett has a history of CKDII with nephrectomy as noted above. His BUN was mild elevated and maintained a Cr at his baseline during admission. (6) Anemia: Hemoglobin remained stable at ~8.3-8.4 during admission. No signs of bleeding. No transfusions were indicated. (7) Severe protein-calorie malnutrition: Brett has protein calorie malnutirtion with likely contributing to his generalized edema. Supplementation with boost was offered, pt was discharged to resume home nutrition. (8) Tobacco use disorder: Nicotine patch was provided for tobacco above. No signs of withdrawal during admission. (9) DVT prophylaxis: During admission he agreed to DVT prophylaxsis with Lovenox which he has refused in the past. Home DVT prophylaxsis was discussed with oncology, was determined that he could go home with instruction to ambulate and did not require home anticoagulation. Total Time Total Time Spent Total Time Spent (In Minutes): 40 Discharge Plan Discharge Items Patient Disposition: Home - Home Health Services Reason For Visit: SIEZURE Discharge Diagnosis: Seizure 2/2 internal capsule brain lesion suspicious for germ cell tumor metastasis Discharge Goals: Decrease discomfort, Improve disease control and Therapeutic intervention Activity: Per 'Additional Instructions' section Non-emergency contact: Primary Care Provider and Oncologist Call non-emergency contact if: you have any medication questions, your symptoms worsen, your pain is not controlled, your pain is worsening and you have a fever Diet: Carb Consistent or DM2 Addtl Provider Instructions: You were seen in the hospital for a seizure. Your MRI showed evidence of a 2mm lesion with some swelling in your brain that likely caused your seizure. You were seen by radiation oncology and oncology. You have had medication changes and followup scheduled as below. Please STOP taking prednisone 40mg when you return home. This has been replaced with decadron (dexamethasone). Please TAKE dexamethasone 4mg by mouth every 8 hours. You are at increased risk of clots due to your cancer and steroid treatment. This was discussed with your oncologist, it is important that you get up periodically and do not remain stationary in bed during the day. If you have any leg swelling, increased shortness of breath, sudden headache, vision change , weakness, or more seizures please call Dr. Cruz's office at [phone]. You have had a simulation scan in anticipation of having radiation therapy by Dr. Connelly with Radiation Oncology. They will contact you this week/next week for a followup radiation appointment. If you do not hear from them, or need to change your appointment, please call their office at [phone]. An appointment has been made for you with Dr. Ramirez office, Oncology for at 2:30pm. If you need to change your appointment, please call their office at [phone]. An appointment is being made for you to followup with your primary care physician Kade Kelsey III, MD. If you do not hear to confirm your appointment, or need to cancel/change this appointment, please call their office at . You have had a seizure. It is important that you DO NOT drive. If you have any signs of a repeat seizure, loss of conciousness, weakness, confusion, sudden headache, fever, chills, or loss of vision please call Dr. Cruz's office or call 911/have someone else drive you to the emergency department if you are concerned. Prescriptions: New dexamethasone 4 mg tablet 4 mg PO Q8H 14 Days Qty: 42 RF: 2 Continue quetiapine [Seroquel] 25 mg Tablet PO DAILY RF: 0 furosemide 40 mg tablet 40 mg PO DAILY PRN (Reason: Edema) RF: 0 valacyclovir [Valtrex] 1 gram tablet 1 g PO TID RF: 0 morphine [MS Contin] 30 mg tablet extended release 30 mg PO Q8 RF: 0 insulin degludec [Tresiba FlexTouch U-100] 100 unit/mL (3 mL) insulin pen 21 unit subcut QPM RF: 0 oxycodone [Roxicodone] 5 mg tablet 10 mg PO Q6 PRN (Reason: Pain) RF: 0 celecoxib [Celebrex] 200 mg capsule 200 mg PO DAILY PRN (Reason: Pain) RF: 0 alprazolam [Xanax] 0.5 mg tablet 0.5 mg PO BID RF: 0 dextroamphetamine-amphetamine [Adderall] 15 mg tablet 15 mg PO BID RF: 0 insulin lispro [Admelog SoloStar U-100 Insulin] 100 unit/mL insulin pen See Label Instructions .ROUTE .COMPLEX RF: 0 multivitamin Tablet 1 tab PO DAILY RF: 0 Discontinued prednisone [Deltasone] 20 mg tablet 40 mg PO UD RF: 0 Visit Report Forms: My [facility] Stand-Alone Forms: [facility] Discharge Orders: Discharge Order (Routine); Ordered 09/18/18 Ordered By: Willie Solis Admission Data Admit Date/Time: 09/17/18 22:46 Attending Provider: Mary Rucker Admit Provider: Maria E Kimball Primary Care Provider: Kade Kelsey III Other Providers: Gayathri Vasques ; Bairon Cruz ; Marley Keys ; Selena Raza Susan H ; Janis Cano ; Karla Fajardo ; Pascual Connelly Service: Medical Other Interventions: Discharge Summary Assessment (RN) Last Done: 09/18/18 16:24 DC Date/Time DO NOT enter until pt leaves facility: 09/18/18 16:47 Supervising Physician Co-Signing Physician Notes Resident Physician Supervision Note: I independently interviewed and examined the patient and verified the shelton history and physical, reviewed labs and image studies, discussed the case with the resident Dr. Solis and agree with the findings and care plan. Time spent in discharge 45 min
[2018-09-18] MEDS ORDERED: INSULIN GLARGINE SOLOSTAR 100 UNITS/ML 3 ML PEN SC SCH (21:00)
[2018-09-19] MEDS ORDERED: INSULIN ASPART 100 UNITS/ML 3 ML PEN SC SCH
== END 2018-09-18 16:47 | disposition home health service (06) | DRG 54 ==
LOC: ED 14:49 → 4E 22:46 → SUATTDRO 22:46 → 4E 23:32
DX: M87.252 Osteonecrosis due to previous trauma, left femur; Z90.5 Acquired absence of kidney; R60.0 Localized edema; Z80.9 Family history of malignant neoplasm, unspecified; Z68.1 Body mass index [BMI] 19.9 or less, adult; F32.9 Major depressive disorder, single episode, unspecified; C62.12 Malignant neoplasm of descended left testis; N18.2 Chronic kidney disease, stage 2 (mild); G40.89 Other seizures; Z79.899 Other long term (current) drug therapy; E10.22 Type 1 diabetes mellitus with diabetic chronic kidney disease; E10.649 Type 1 diabetes mellitus with hypoglycemia without coma; Z79.891 Long term (current) use of opiate analgesic; Z90.79 Acquired absence of other genital organ(s); C78.6 Secondary malignant neoplasm of retroperitoneum and peritoneum; F17.210 Nicotine dependence, cigarettes, uncomplicated; G89.3 Neoplasm related pain (acute) (chronic); C79.31 Secondary malignant neoplasm of brain; Z92.21 Personal history of antineoplastic chemotherapy; B02.9 Zoster without complications; D63.0 Anemia in neoplastic disease; Z79.52 Long term (current) use of systemic steroids; E43 Unspecified severe protein-calorie malnutrition

== ENCOUNTER 2018-09-29 07:01 | Inpatient (IN) ==
[2018-09-29] MEDS ORDERED: PHARMACY GLYCEMIC MGMT CONSULT PRN (09:46)
[2018-09-29] MEDS ORDERED: PATIENT'S HEIGHT AND/OR WEIGHT NEEDED SCH (10:15)
[2018-09-29] MEDS ORDERED: ALTEPLASE, RECOMBINANT 1 MG/ML 2ML VIAL IV ONE (10:49)
[2018-09-29 11:06] LABS: Basophils # (auto) 0.01 K/uL (0-0.2); Eosinophils # (auto) 0.14 K/uL (0-0.5); Eosinophils % (auto) 0.7 %; Hematocrit (blood only) 29.8 % (42-52); Hemoglobin 9.4 g/dL (14.0-18.0); Immature Granulocytes # (auto) 0.39 K/uL (0.00-0.02); Immature Granulocytes % (auto) 1.9 %; Lymphocytes # (auto) 1.02 K/uL (1.2-3.4); Lymphocytes % (auto) 4.9 %; Mean Corpuscular Hgb Conc 31.5 g/dL (32-36); Mean Corpuscular Volume 88.7 fL (80-100); Mean Platelet Volume 8.4 fL (7.4-10.4); Monocytes # (auto) 1.03 K/uL (0.11-0.59); Monocytes % (auto) 4.9 %; Neutrophils # (auto) 18.29 K/uL (1.4-6.5); Neutrophils % (auto) 87.6 %; Platelet Count 419 K/uL (130-400); RDW Coefficient of Variation 29.5 % (11.5-14.5); RDW Standard Deviation 90.5 fL (36.4-46.3); Red Blood Count 3.36 M/uL (4.7-6.1); White Blood Count 20.88 K/uL (4.8-10.8)
[2018-09-29 11:34] LABS: Alanine Aminotransferase 41 U/L (12-78); Albumin Globulin Ratio 0.8 (0.9-2); Alkaline Phosphatase 167 U/L (45-117); Aspartate Aminotransferase 12 U/L (15-37); Bilirubin,Total 0.3 mg/dl (0.2-1); Blood Urea Nitrogen 40 mg/dl (7-18); Calcium 8.4 mg/dl (8.5-10.1); Carbon Dioxide 25 mmol/L (21-32); Chloride 98 mmol/L (98-107); Est GFR (African American) 78.4; Est GFR (Non-African American) 67.7; Globulin 3.8 gm/dl (2.5-4.0); Glucose 363 mg/dl (70-99); Magnesium 2.2 mg/dl (1.8-2.4); Phosphorus 3.6 mg/dl (2.5-4.9); Potassium 3.9 mmol/L (3.5-5.1); Sodium 133 mmol/L (136-145); Total Protein 6.8 gm/dl (6.4-8.2)
[2018-09-29] MEDS ORDERED: ALPRAZolam 0.5 MG TABLET PO PRN (11:39)
[2018-09-29] MEDS ORDERED: GLUCOSE 10 TABS/TUBE PO PRN ×2 (11:46→12:04)
[2018-09-29] MEDS ORDERED: GLUCAGON FOR INJ 1 MG VIAL SQ PRN ×2 (11:46→12:04)
[2018-09-29] MEDS ORDERED: GLUCOSE 40% GEL 15 GM TUBE PO PRN ×2 (11:46→12:04)
[2018-09-29] MEDS ORDERED: DEXTROSE 50% 50 ML SYRINGE IV PRN ×2 (11:46→12:04)
[2018-09-29 11:48] LABS: Anisocytosis Present; Tear Drop Cells 1+
--- NOTE | 2018-09-29 11:51 | History & Physical Report ---
Date of Service September 29, 2018 Assessment & Plan (1) Testicular cancer: - Initially diagnosed in Jun 2017; s/p orchiectomy on 06/24/2017 and 4 cycles chemotherapy. -then had large pelvic teratoma resected in 12/2017 - Was lost to follow up and returned in Jul 2018 with recurrent disease. - Received salvage chemo in Aug 2018; now admitted for ongoing chemotherapy. - Oncology following, appreciate input. - ID ppx: Valtrex 1 gm BID. (2) Metastatic cancer to brain: - Presented to ER on 09/17/18 with new onset seizure in setting of brain metastasis. - Continue Decadron 4 mg PO q8hr per rad/onc; currently receiving brain radiation. - Taper steroids per rad/onc recs. - Pt. was not placed on anti-epileptic medication; will need to consider starting for recurrent seizures. (3) Type I diabetes mellitus: - Continue Lantus 21 units qhs with SSI coverage. - Pharmacy consulted for glycemic management. (4) History of herpes zoster: - Will place on Valtrex 500 mg BID for prophylaxis. (5) Acute kidney injury: - Creatinine increased to 1.42, likely prerenal related to dehydration. - Start NS at 100 cc/hr. - Monitor renal function qAM. (6) CKD (chronic kidney disease), stage II: - Renally dose all medications. (7) Avascular necrosis of bone of left hip: S/p pinning with screws and plate Had fall recently prior to last admissino with worsening left hip pain--> xray from 09/18/18 shows loosening of screws - Continue MS Contin 30 mg q8hr with Oxycodone 10 mg q6hr prn pain. -consider Ortho consultation but likely nothing to do acutely given ongoing chemo (8) Mood disorder: - Continue Adderrall 15 mg BID; Xanax 0.5 mg BID prn. (9) Severe protein-calorie malnutrition: - Encourage carb consistent diet as tolerated. (10) Chronic anemia: - In setting of recent chemotherapy. - Monitor CBC qAM; transfuse for hgb <7.5. (11) Tobacco use: - Nicotine patch ordered. - Encourage tobacco cessation. (12) DVT prophylaxis: - SCDs and Lovenox 40 mg subQ q24hr. Would hold Lovenox once plts< 50k Dispo: Med/surg for planned chemo; will also continue RT. History of Present Illness Chief Complaint: Planned chemotherapy Primary Care Provider: Kade Kelsey III, MD Mr. Leigh is a 28 year old male with metastatic testicular cancer, type I diabetes mellitus, chronic kidney disease stage II, depression, chronic anxiety , avascular necrosis of the femur, seizures, herpes zoster who presented for planned chemotherapy. Pt. was admitted 09/17-09/18 for seizure; brain MRI showed 2 mm lesion likely related to brain metastasis. He started Decadron therapy along with brain radiation. He has not had any further seizure activity. Pt. presents for planned chemotherapy this morning. He complains of a "strange sensation" with urination that has been ongoing since discharge. Denies dysuria , hematuria, abdominal pain or suprapubic pain. He has chronic pain in his left leg; pt. has been taking MS Contin 30 mg every 8 hours and Oxycodone 10 mg every 4-6 hours. Pt. was taking extra pain medication at home due to increased acute pain; he ran out of current Oxycodone script due to extra doses. Pt. was also recently diagnosed with herpes zoster; he completed a course of Valtrex. His water trainer recommended taking Valtrex ppx during chemotherapy course. Denies fever/chills, URI symptoms, chest pain, SOB, LE edema. Denies nausea/ vomiting, diarrhea or constipation. Allergies Allergy/AdvReac Type Severity Reaction Status Date / Time No Known Allergies Allergy Verified 08/28/18 11:32 Home Medications Home Medications Medication Instructions Recorded Confirmed Type alprazolam [Xanax] 0.5 mg PO BID 07/25/18 09/17/18 History celecoxib [Celebrex] 200 mg PO DAILY PRN 07/25/18 09/17/18 History dextroamphetamine-amphetamine 15 mg PO BID 07/25/18 09/17/18 History [Adderall] insulin lispro [Admelog SoloStar See Label Instructions .ROUTE 07/25/18 History U-100 Insulin] .COMPLEX multivitamin 1 tab PO DAILY 07/25/18 09/17/18 History furosemide 40 mg PO DAILY PRN 09/17/18 09/17/18 History insulin degludec [Tresiba 21 unit SUBCUT QPM 09/17/18 09/17/18 History FlexTouch U-100] morphine [MS Contin] 30 mg PO Q8 09/17/18 09/17/18 History oxycodone [Roxicodone] 10 mg PO Q6 PRN 09/17/18 09/17/18 History quetiapine [Seroquel] 0 mg PO DAILY 09/17/18 09/17/18 History valacyclovir [Valtrex] 1 g PO TID 09/17/18 09/17/18 History dexamethasone 4 mg PO Q8H 14 Days #42 tab 09/18/18 Rx Past Med/Surg History Medical History Chronic pain syndrome Severe protein-calorie malnutrition Thrombocytopenia Type 1 diabetes mellitus with hypoglycemia Pancytopenia due to antineoplastic chemotherapy CKD (chronic kidney disease) stage 2, GFR 60-89 ml/min Teratoma of pelvis (Chronic) Testis cancer (Chronic) Cancer Testicular CA with mets Anxiety Diabetes (Chronic) Avascular necrosis of femur head, left Surgical History History of repair of left hip joint History of orchiectomy History of nephrectomy Family History Grandfather Heart attack Other Cancer Social History marital status: Single Current Living Situation: Significant Other Feels Safe at Home: Yes Safety Concerns: Feels Safe At This Time Smoking Status: Current every day smoker Tobacco Type: cigarettes Cigarettes per Day: 20-30 Do You Dip or Chew Tobacco: No Second Hand Exposure: Yes Tobacco Cessation Education Requested by Patient: No Hx Alcohol Use: No Hx Substance Use: Yes substance use type: marijuana Last Used Substance: Unknown Beliefs That Will Affect Care: None Communication Ability: Effective Review of Systems All systems reviewed & are unremarkable except as noted in HPI & below Constitutional: no fever, no chills, no fatigue, no weakness and no anorexia Respiratory: no cough, no chest congestion and no dyspnea Cardiovascular: no chest pain, no palpitations and no edema Gastrointestinal: no abdominal pain, no nausea, no vomiting, no constipation and no diarrhea/loose stools Genitourinary (Male): no dysuria, no difficulty urinating and no hematuria Musculoskeletal: + joint pain (Left hip/leg) Psychiatric: + anxiety; no depression and no irritability Allergy / Immunological: no rash Physical Exam 2 Vital Signs (Past 24 Hours): Last Vital Signs Temp 36.5 C 09/29/18 10:56 Pulse 110 H 09/29/18 10:56 Resp 20 09/29/18 10:56 BP 134/79 09/29/18 10:56 Pulse Ox 99 09/29/18 10:56 Physical Exam: General: Chronically ill appearing young male HEENT: NC/AT; PERRLA with EOMI; [place] conjunctiva, MMM. Neck: Supple and nontender Cardiac: RRR Lungs: CTA bilaterally Abdomen: Bowel normoactive X 4; Nontender to palpation Extremities: Warm. No edema present Neuro: No focal weakness Skin: No rash Results & Data Laboratory Results 09/29/18 09/29/18 Range/Units 10:44 10:44 WBC 20.88 H (4.8-10.8) K/uL RBC 3.36 L (4.7-6.1) M/uL Hgb 9.4 L (14.0-18.0) g/dL Hct 29.8 L (42-52) % MCV 88.7 (80-100) fL MCH 28.0 (25-34) pg MCHC 31.5 L (32-36) g/dL RDW Std Deviation 90.5 H (36.4-46.3) fL RDW Coeff of Zuleima 29.5 H (11.5-14.5) % Plt Count 419 H (130-400) K/uL MPV 8.4 (7.4-10.4) fL Immature Gran % (Auto) 1.9 % Neut % (Auto) 87.6 % Lymph % (Auto) 4.9 % [place] % (Auto) 4.9 % Eos % (Auto) 0.7 % Baso % (Auto) 0.0 % Immature Gran # (Auto) 0.39 H (0.00-0.02) K/uL Neut # (Auto) 18.29 H (1.4-6.5) K/uL Lymph # (Auto) 1.02 L (1.2-3.4) K/uL [place] # (Auto) 1.03 H (0.11-0.59) K/uL Eos # (Auto) 0.14 (0-0.5) K/uL Baso # (Auto) 0.01 (0-0.2) K/uL Anisocytosis Present Tear Drop Cells 1+ Sodium 133 L (136-145) mmol/L Potassium 3.9 (3.5-5.1) mmol/L Chloride 98 (98-107) mmol/L Carbon Dioxide 25 (21-32) mmol/L Anion Gap 10.0 (3-11) BUN 40 H (7-18) mg/dl Creatinine 1.42 H (0.6-1.4) mg/dl Est Cr Clr Drug Dosing Not Reportable Est GFR ( Amer) 78.4 Est GFR (Non-Af Amer) 67.7 BUN/Creatinine Ratio 28.0 H (10-20) Glucose 363 H* (70-99) mg/dl Calcium 8.4 L (8.5-10.1) mg/dl Phosphorus 3.6 (2.5-4.9) mg/dl Magnesium 2.2 (1.8-2.4) mg/dl Total Bilirubin 0.3 (0.2-1) mg/dl AST 12 L (15-37) U/L ALT 41 (12-78) U/L Alkaline Phosphatase 167 H (45-117) U/L Total Protein 6.8 (6.4-8.2) gm/dl Albumin 3.0 L (3.4-5.0) gm/dl Globulin 3.8 (2.5-4.0) gm/dl Albumin/Globulin Ratio 0.8 L (0.9-2) Beta-Hydroxybutyric Acd 1.48 (0.2-2.81) mg/dl Code Status & VTE Plan Code Status FULL CODE Supervising Physician Co-Signing Physician Notes PA Supervision Note: I personally saw and examined the patient. I verified all shelton points and agree with SACHA Hatfield with the following exceptions and/or additions: Pt here for planned chemotherapy for metastatic testicular CA. He looks tremendously improved since the last time I saw him just one month ago. He has lost 26 kg of body weight since that time. His main concern when I came to see him was how he can obtain a marijuana card for Rx marijuana. Vitals reviewed NAD, thin, pleasant, AAOx3 RRR no mgr CTAB no wcr Abd +BS soft, NT, ND--> significantl yimproved from previous Ext trace edema L>R legs Skin : right forehead and scalp with pinkinsh skin and scale 28 yo male with met testicular CA here for planned inpatient chemotherapy. With a mild ADRI. Leukocytosis secondary to high dose steroid therapy. With DMI--> Pharmacy to manage his glucose -plan outlined as above
[2018-09-29] MEDS ORDERED: INSULIN ASPART 100 UNITS/ML 3 ML PEN SC SCH ×2 (12:08→16:30)
[2018-09-29] MEDS ORDERED: INSULIN HUMAN REGULAR PER UNIT 5 UNITS in SYRINGE 4.95 ML IV ONE (12:15)
[2018-09-29] MEDS ORDERED: INSULIN GLARGINE 100 UNIT/ML VIAL SC ONE (12:30)
[2018-09-29] MEDS ORDERED: HEPARIN 100 UNIT/ML 5ML FLUSH ONE (13:05)
[2018-09-29] MEDS: ENOXAPARIN INJ 40 MG/0.4 ML SYR SQ SCH (13:07)
[2018-09-29] MEDS ORDERED: EPINEPHrine INJ 1 MG/ML AMP IM PRN ×2 (13:10→13:13)
[2018-09-29] MEDS: dexAMETHasone 4 MG TAB PO SCH ×2 (13:11→21:03)
[2018-09-29] MEDS ORDERED: DiphenhydrAMINE HCL 50 MG/ML VIAL IV PRN (13:11)
[2018-09-29] MEDS ORDERED: HYDROCORTISONE 100 MG *12cc Syringe IV PRN (13:12)
[2018-09-29] MEDS: NICOTINE 21 MG/24 HR TDSY TD SCH (13:16)
[2018-09-29] MEDS ORDERED: methylPREDNISolone 125 MG in SYRINGE 0 ML IV PRN (13:17)
[2018-09-29] MEDS: MoRPHine SULFATE CR 15 MG TABCR PO SCH ×2 (13:23→21:10)
[2018-09-29] MEDS: INSULIN ASPART 100 UNITS/ML 3 ML PEN SC SCH ×3 (13:23→21:11)
[2018-09-29] MEDS ORDERED: DiphenhydrAMINE HCL 50 MG/ML VIAL IV SCH (14:00)
[2018-09-29] MEDS ORDERED: SODIUM CHLORIDE 0.9% IV SCH (14:00)
[2018-09-29] MEDS ORDERED: DEXAMETHASONE SOD PHOSPHATE IV SCH (14:00)
[2018-09-29] MEDS ORDERED: FAMOTIDINE 20 MG in SYRINGE 3 ML IV SCH (14:00)
[2018-09-29 14:21] LABS: Appearance Urine Clear (Clear); Bacteria Urine Automated Negative (Negative); Bilirubin Urine Negative (Negative); Cast Urine Automated 0 /lpf (0-5); Color Urine Yellow; Epithelial Cell Urine Auto 0-5 /lpf (0-5); Glucose Urine UA 3+ (Negative); Ketones Urine Negative (Negative); Leukocyte Esterase Urine Negative (Negative); Nitrite Urine Negative (Negative); Protein Urine Trace (Negative); Specific Gravity Urine 1.028 (1.000-1.030); Urobilinogen Urine Negative (Negative)
[2018-09-29] MEDS ORDERED: POLYOLEFIN IV SCH (14:30)
[2018-09-29] MEDS ORDERED: PACLITAXEL IV SCH (14:30)
[2018-09-29] MEDS ORDERED: SOD CHL IV SCH (14:30)
--- NOTE | 2018-09-29 14:47 | Pharmacy Report ---
Glycemic Control Consultation - Date of Service September 29, 2018 - Scope Scope: Glycemic Pharmacist consulted by KEYON Gar on 09/29 for glycemic control and to write orders per [facility] inpatient glycemic control protocol - Objective Weight: 61.1 kg Accuchecks BSG (last 24hrs): 09/29/18 09/29/18 10:44 12:35 Glucose 363 H* POC Glucose 264 H Laboratory Data (last 24hrs): 09/29/18 10:44 Potassium 3.9 Carbon Dioxide 25 Anion Gap 10.0 Creatinine 1.42 H Est Cr Clr Drug Dosing Not Reportable Beta-Hydroxybutyric Acd 1.48 - Recent Pertinent Medications Outpatient Anti-diabetic Regimen: * Admelog Solostar using CR of 10 + sliding scale (TDD = 30 units) * Tresiba 21 units qHS * A1c = 7.5 % 08/26/18 Risk Factors for Insulin Resistance: * Steroids: Decadron 8 mg po q8h, will also receive 10 mg IV as a pre-treat daily x next 3 days * Diet: type 1 diabetes - Assessment & Plan Assessment & Plan: ASSESSMENT: * 28 y/o male with type 1 diabetes, admitted for inpatient chemo and steroid- induced hyperglycemia. PMH includes testicular cancer. He is fairly well controlled on the outpatient side, as evidenced by his A1c, but BSGs have been high lately due to ATC Decadron use. * He is maintained on basal/bolus insulin therapy and follows with HOL[facility] Carrizales. I confirmed with the patient that he took his Tresiba usual dose last night. He also reports taking a dose of his Admelog prior to coming up to the floor. I 'm not sure what this dose was. * Will plan to switch to inpatient basal/bolus therapy in the form of Lantus + Novolog, and provide aggressive dosing with higher doses of steroids on board. Ideally, would want to effectively control BSGs without requiring an insulin infusion. PLAN FOR INPATIENT GLYCEMIC CONTROL: * Basal insulin * Lantus 10 units on arrival, then * Lantus BID as per the following scale: * 13 units for BSG < 120 * 17 units for BSG 120-200 * 20 units for BSG > 200 * Bolus insulin * NovoLog per scale ACHS + 00,04 * Goal Range: Low 120 mg/dL - High 150 mg/dL * Correction Factor: 20 mg/dL/unit * Nutritional / Prandial insulin per carb ratio of 1 unit per 7 grams CHO consumed Discharge Recommendations: * A1c is fairly well controlled so would encourage continued close outpt f/u * If patient to continue on ATC Decadron on discharge, insulin regimen may need adjusted. Can provide these recommendations closer to the time of discharge. Thank you.
[2018-09-29] MEDS: SODIUM CHLORIDE 0.9% 1000ML 1,000 ML IV SCH (15:02)
[2018-09-29] MEDS ORDERED: SODIUM CHLORIDE 0.9% 1000ML 1,000 ML IV SCH (15:15)
[2018-09-29] MEDS: OXYCODONE HCL IR 5 MG TAB (IMMEDIATE RELEASE) PO PRN (17:49)
[2018-09-29] MEDS ORDERED: INSULIN GLARGINE 100 UNIT/ML VIAL SC SCH (21:00)
[2018-09-29] MEDS ORDERED: INSULIN DEGLUDEC SQ SCH (21:00)
[2018-09-29] MEDS: VALACYCLOVIR HCL 500 MG TABLET PO SCH (21:03)
[2018-09-29] MEDS: AMPHETAMINE ASP/SULF/DEXTRAMPH 10 MG TAB PO SCH (21:10)
[2018-09-29] MEDS: INSULIN GLARGINE 100 UNIT/ML VIAL SC SCH (21:11)
[2018-09-30] MEDS: INSULIN ASPART 100 UNITS/ML 3 ML PEN SC SCH ×6 (00:14→21:23)
[2018-09-30] MEDS: SODIUM CHLORIDE 0.9% 1000ML 1,000 ML IV SCH ×5 (01:35→21:22)
[2018-09-30] MEDS: dexAMETHasone 4 MG TAB PO SCH ×3 (04:58→19:51)
[2018-09-30] MEDS: MoRPHine SULFATE CR 15 MG TABCR PO SCH ×3 (06:04→21:34)
[2018-09-30 06:46] LABS: Hematocrit (blood only) 30.1 % (42-52); Hemoglobin 9.7 g/dL (14.0-18.0); Mean Corpuscular Hgb Conc 32.2 g/dL (32-36); Mean Platelet Volume 8.7 fL (7.4-10.4); Platelet Count 375 K/uL (130-400); RDW Coefficient of Variation 29.5 % (11.5-14.5); RDW Standard Deviation 90.3 fL (36.4-46.3); Red Blood Count 3.42 M/uL (4.7-6.1); White Blood Count 21.64 K/uL (4.8-10.8)
[2018-09-30 07:22] LABS: BUN Creatinine Ratio 29.6 (10-20); Calcium 7.9 mg/dl (8.5-10.1); Est GFR (African American) 98.1; Est GFR (Non-African American) 84.7; Magnesium 2.1 mg/dl (1.8-2.4); Potassium 4.3 mmol/L (3.5-5.1)
[2018-09-30] MEDS: INSULIN GLARGINE 100 UNIT/ML VIAL SC SCH ×2 (09:22→21:22)
[2018-09-30] MEDS: VALACYCLOVIR HCL 500 MG TABLET PO SCH ×2 (09:26→21:25)
[2018-09-30] MEDS: AMPHETAMINE ASP/SULF/DEXTRAMPH 10 MG TAB PO SCH ×2 (09:26→17:05)
[2018-09-30] MEDS: NICOTINE 21 MG/24 HR TDSY TD SCH (09:26)
--- NOTE | 2018-09-30 10:14 | Consultation Report ---
DATE OF CONSULTATION: 09/30/2018 REASON FOR CONSULTATION: Cycle #2 combination TIP. HISTORY OF PRESENT ILLNESS: Brett Leigh is a pleasant 28-year-old gentleman well known to [facility], currently under Dr. Cruz's care for metastatic testicular cancer. The patient received his initial course of salvage chemotherapy prior to [place]. At that time, he had manifested abdominal distention and profoundly edematous bilateral lower extremities. The patient received the complete course of treatment and was subsequently readmitted to hospital on 09/17/2018 through the for new onset seizure. Brain MRI demonstrated 2-mm lesion close to the internal capsule with associated vasogenic edema. He was placed on corticosteroids and is in the midst of receiving radiation therapy. When I saw Brett during that admission, I was pleasantly surprised he seems to be responding well to treatment with significant decrease of abdominal girth and almost complete resolution of his edematous state. This morning when I visited with Brett, he was not terribly coherent despite vigorous verbal commands, he spoke mostly in gibberish. Nursing explained to me that Brett was up all night and just had fallen asleep about an hour prior. Nonetheless, ifosfamide neurotoxicity is certainly possible and Brett needs to be monitored closely in the next couple of hours or so. I was unable to really extract any meaningful information from Brett this morning. He did not appear to be in pain or discomfort, nonetheless. PAST MEDICAL HISTORY: Again, significant for metastatic testicular cancer, insulin-dependent diabetes mellitus, avascular necrosis of the left hip, chronic kidney disease, depression, tobacco abuse, and cytopenias attributable to chemotherapy. PAST SURGICAL HISTORY: Left orchidectomy and left nephrectomy. HOME MEDICATIONS: Xanax 0.5 mg p.o. b.i.d., Celebrex 200 mg p.o. p.r.n., Adderall 15 mg p.o. b.i.d., insulin lispro dose unknown, multivitamin 1 p.o. daily, furosemide 40 mg p.o. daily, Tresiba 21 units subQ q.p.m., MS Contin 30 mg p.o. q. 8 hours, Roxicodone 10 mg p.o. q. 6 hours. ALLERGIES: No known drug allergies. SOCIAL HISTORY: The patient resides with his fiancee. He is positive for cigarette smoking and marijuana. Negative for alcohol. FAMILY HISTORY: Positive for cancer and coronary artery disease. REVIEW OF SYSTEMS: Unobtainable because of the patient's mental status. PHYSICAL EXAMINATION: GENERAL: Brett is a somewhat disoriented and agitated, in no acute distress. VITAL SIGNS: Temperature 36.7, pulse 82, respiratory rate 20, blood pressure 123/69. SKIN: Without rash or lesion. HEENT: Head is atraumatic, normocephalic. Could not get him to cooperate for ocular examination. Nares are patent without rhinorrhea or discharge. Throat clear. Mucous membranes are dry. No buccal lesions or ulcerations noted. NECK: Supple. HEART: Regular rate and rhythm. LUNGS: Clear to auscultation bilaterally. ABDOMEN: Soft, nontender, nondistended. EXTREMITIES: Trace peripheral edema bilaterally. Pulses are equal in all 4 quadrants. NEUROLOGIC: Again, not done. LABORATORY DATA: WBC count 21,640; hemoglobin 9.7; platelet count 375,000. Absolute neutrophil count in excess of 18,000. Sodium 134, potassium 4.3, chloride 103, carbon dioxide 22, BUN 35, creatinine 1.18, glucose is 253, albumin 3.0. IMPRESSION: 1. Metastatic testicular cancer. 2. Intracerebral metastasis. 3. Type 1 diabetes mellitus. 4. History of herpes zoster. 5. Acute renal injury. 6. Avascular necrosis of the bone and left hip. PLAN: Again, Brett was seen at bedside. I was concerned with his mental status; however, nursing explains this is typical for Brett. Apparently, he stays up all night watching TV and he did not fall asleep until roughly about 5:00 a.m. this morning. Nonetheless, I have asked them to keep an eye on him specifically concerned again of ifosfamide-induced neurotoxicity, which is certainly a well-known adverse effect associated with this drug. Nursing reports not administering any pain medications or antianxiety meds overnight. He is in the midst of receiving his second course of chemotherapy under Dr. Cruz's direction. Obviously, we need to monitor his labs on a daily basis. Treat his pain as appropriate and maintain his home medications as prescribed. We will continue to follow Brett on a daily basis until he completes his regimen. Thank you for assisting us in the care of this very complex gentleman. [facility]
[2018-09-30] MEDS ORDERED: INSULIN HUMAN REGULAR PER UNIT 6 UNITS in SYRINGE 5.94 ML IV ONE (12:30)
[2018-09-30] MEDS: OXYCODONE HCL IR 5 MG TAB (IMMEDIATE RELEASE) PO PRN ×2 (12:35→20:20)
[2018-09-30] MEDS: ENOXAPARIN INJ 40 MG/0.4 ML SYR SQ SCH (12:36)
[2018-09-30] MEDS: HEPARIN 100 UNIT/ML 5ML FLUSH FLUSH PRN (13:56)
[2018-09-30] MEDS ORDERED: dexAMETHasone 10 MG in SODIUM CHLORIDE 0.9% 50 ML IV SCH (15:00)
--- NOTE | 2018-09-30 15:26 | Hospitalist Progress Note ---
Date of Service September 30, 2018 Assessment & Plan (1) Testicular cancer: - Initially diagnosed in Jun 2017; s/p orchiectomy on 06/24/2017 and 4 cycles chemotherapy. - Had large pelvic teratoma resected in 12/2017. - Was lost to follow up and returned in Jul 2018 with recurrent disease. - Received salvage chemo in Aug 2018; now admitted for ongoing chemotherapy. - Oncology following, appreciate input. Receiving Paclitaxel/Cisplatin/ Ifosfamide, day 2 today. - Monitor for Ifosfamide toxicity. - ID ppx: Valtrex 1 gm BID. (2) Metastatic cancer to brain: - Presented to ER on 09/17/18 with new onset seizure in setting of brain metastasis. - Continue Decadron 4 mg PO q8hr per rad/onc; currently receiving brain radiation. - Taper steroids per rad/onc recs. - Pt. was not placed on anti-epileptic medication; will need to consider starting for recurrent seizures. (3) Type I diabetes mellitus: - Continue Lantus with SSI coverage. - Pharmacy consulted for glycemic management. - BG has been severely uncontrolled due to increased appetite/poor adherence to carb consistent diet. - Counseled patient on importance of glucose management. (4) History of herpes zoster: - Valtrex 500 mg BID for prophylaxis. (5) Acute kidney injury: - Creatinine improved to 1.18. - Continue NS at 100 cc/hr. - Monitor renal function qAM. (6) CKD (chronic kidney disease), stage II: - Renally dose all medications. (7) Avascular necrosis of bone of left hip: - S/p pinning with screws and plate - Had fall recently prior to last admission with worsening left hip pain--> xray from 09/18/18 shows loosening of screws. - Continue MS Contin 30 mg q8hr with Oxycodone 10 mg q6hr prn pain. - Consider Ortho consultation but likely nothing to do acutely given ongoing chemo. (8) Mood disorder: - Continue Adderrall 15 mg BID; Xanax 0.5 mg BID prn. (9) Severe protein-calorie malnutrition: - Encourage carb consistent diet as tolerated. (10) Chronic anemia: - In setting of recent chemotherapy. - Monitor CBC qAM; transfuse for hgb <7.5. (11) Tobacco use: - Nicotine patch ordered. - Encourage tobacco cessation. (12) DVT prophylaxis: - SCDs and Lovenox 40 mg subQ q24hr. Hold Lovenox once plts< 50k. Dispo: Med/surg for planned chemo; will also continue RT. Supervising Physician Co-Signing Physician Notes Attending Attestation - Chart reviewed in detail, and care plan d/w SACHA Carpio. I agree w/ the shelton components of her documentation. Sickly 28yo with recurrent stage 4 testicular cancer (brain met, etc) and [id number] T1DM. Day #2 of chemo regimen. Appreciate pharmacy assistance for glycemic management. Labs/vitals acceptable. Reji Poole MD Subjective Pt. is doing well today. Blood glucose has been significantly elevated -- pt. has multiple snacks in the room and has not been following a carb consistent diet. Discussed the importance of maintaining adequate blood glucose control and possibility of insulin drip. Dysuria now resolved, U/a was negative. Pt is tolerating chemo well, day 2 today. Review of Systems All systems reviewed & are unremarkable except as noted in HPI & below Constitutional: no fever, no chills and no weakness Respiratory: no cough and no dyspnea Cardiovascular: no chest pain, no palpitations and no edema Gastrointestinal: no abdominal pain, no nausea, no vomiting, no constipation and no diarrhea/loose stools Genitourinary (Male): no dysuria and no difficulty urinating Allergy / Immunological: no rash Physical Exam 2 Vital Signs (Past 24 Hours): Last Vital Signs Temp 36.9 C 09/30/18 12:04 Pulse 99 H 09/30/18 12:04 Resp 18 09/30/18 12:04 BP 123/81 09/30/18 12:04 Pulse Ox 100 09/30/18 12:04 Physical Exam: General: Chronically ill appearing young male HEENT: NC/AT; PERRLA with EOMI; [place] conjunctiva, MMM. Neck: Supple and nontender Cardiac: RRR Lungs: CTA bilaterally Abdomen: Bowel normoactive X 4; Nontender to palpation Extremities: Warm. No edema present Neuro: No focal weakness Skin: No rash; mediport site without erythema or tenderness to palpation. Results & Data Laboratory Results 09/30/18 09/30/18 09/30/18 Range/Units 11:47 07:38 06:33 WBC (4.8-10.8) K/uL RBC (4.7-6.1) M/uL Hgb (14.0-18.0) g/dL Hct (42-52) % MCV (80-100) fL MCH (25-34) pg MCHC (32-36) g/dL RDW Std Deviation (36.4-46.3) fL RDW Coeff of Zuleima (11.5-14.5) % Plt Count (130-400) K/uL MPV (7.4-10.4) fL Sodium 134 L (136-145) mmol/L Potassium 4.3 (3.5-5.1) mmol/L Chloride 103 (98-107) mmol/L Carbon Dioxide 22 (21-32) mmol/L Anion Gap 9.0 (3-11) BUN 35 H (7-18) mg/dl Creatinine 1.18 (0.6-1.4) mg/dl Est Cr Clr Drug Dosing 82.0 ml/min Est GFR ( Amer) 98.1 Est GFR (Non-Af Amer) 84.7 BUN/Creatinine Ratio 29.6 H (10-20) Glucose 253 H (70-99) mg/dl POC Glucose 302 H 358 H* (70-99) Calcium 7.9 L (8.5-10.1) mg/dl Magnesium 2.1 (1.8-2.4) mg/dl 09/30/18 09/30/18 09/30/18 Range/Units 06:33 04:54 00:01 WBC 21.64 H (4.8-10.8) K/uL RBC 3.42 L (4.7-6.1) M/uL Hgb 9.7 L (14.0-18.0) g/dL Hct 30.1 L (42-52) % MCV 88.0 (80-100) fL MCH 28.4 (25-34) pg MCHC 32.2 (32-36) g/dL RDW Std Deviation 90.3 H (36.4-46.3) fL RDW Coeff of Zuleima 29.5 H (11.5-14.5) % Plt Count 375 (130-400) K/uL MPV 8.7 (7.4-10.4) fL Sodium (136-145) mmol/L Potassium (3.5-5.1) mmol/L Chloride (98-107) mmol/L Carbon Dioxide (21-32) mmol/L Anion Gap (3-11) BUN (7-18) mg/dl Creatinine (0.6-1.4) mg/dl Est Cr Clr Drug Dosing ml/min Est GFR ( Amer) Est GFR (Non-Af Amer) BUN/Creatinine Ratio (10-20) Glucose (70-99) mg/dl POC Glucose 157 H 151 H (70-99) Calcium (8.5-10.1) mg/dl Magnesium (1.8-2.4) mg/dl 09/29/18 09/29/18 09/29/18 Range/Units 20:14 20:12 16:40 WBC (4.8-10.8) K/uL RBC (4.7-6.1) M/uL Hgb (14.0-18.0) g/dL Hct (42-52) % MCV (80-100) fL MCH (25-34) pg MCHC (32-36) g/dL RDW Std Deviation (36.4-46.3) fL RDW Coeff of Zuleima (11.5-14.5) % Plt Count (130-400) K/uL MPV (7.4-10.4) fL Sodium (136-145) mmol/L Potassium (3.5-5.1) mmol/L Chloride (98-107) mmol/L Carbon Dioxide (21-32) mmol/L Anion Gap (3-11) BUN (7-18) mg/dl Creatinine (0.6-1.4) mg/dl Est Cr Clr Drug Dosing ml/min Est GFR ( Amer) Est GFR (Non-Af Amer) BUN/Creatinine Ratio (10-20) Glucose (70-99) mg/dl POC Glucose 403 H* 366 H* 148 H (70-99) Calcium (8.5-10.1) mg/dl Magnesium (1.8-2.4) mg/dl
[2018-09-30] MEDS ORDERED: PALONOSETRON 0.25 MG in SYRINGE 0 ML IV SCH (15:30)
[2018-09-30] MEDS ORDERED: APREPITANT IV SCH (15:30)
[2018-09-30] MEDS ORDERED: SODIUM CHL 0.9% IV SCH (15:30)
[2018-09-30] MEDS ORDERED: POLYOLEFIN IV SCH (15:30)
--- NOTE | 2018-09-30 15:32 | Pharmacy Report ---
Pharmacy Glycemic Short Note 2 - Date of Service September 30, 2018 - Glycemic Short BSG Results (Last 24 hours): 09/29/18 09/29/18 09/29/18 16:40 20:12 20:14 Glucose POC Glucose 148 H 366 H* 403 H* 09/30/18 09/30/18 09/30/18 00:01 04:54 06:33 Glucose 253 H POC Glucose 151 H 157 H 09/30/18 09/30/18 07:38 11:47 Glucose POC Glucose 358 H* 302 H OUTPATIENT ANTIDIABETIC REGIMEN: * Admelog Solostar using CR of 10 + sliding scale (TDD = 30 units) * Tresiba 21 units qHS * A1c = 7.5 % 08/26/18 ASSESSMENT: * 28 y/o male with type 1 diabetes, admitted for inpatient chemo and steroid- induced hyperglycemia. PMH includes testicular cancer. He is fairly well controlled on the outpatient side, as evidenced by his A1c, but BSGs have been high lately due to ATC Decadron use. * Patient is receiving dexamethasone 4mg po q8 * BG ranged 148-403 past 24 hours; he received ~68 units of insulin total while admitted * Nursing reports patient's girlfriend has been bringing in a lot of food. He is snacking a lot and consuming carbs which are not being covered. He reportedly ate pizza overnight. BG was trending down and stable in 150's overnight, but greater than 300 since this AM likely from high carb intake. PLAN FOR INPATIENT GLYCEMIC CONTROL: * Basal insulin * Lantus BID as per the following scale: * 13 units for BSG 120 or less * 17 units for BSG 121-179 * 20 units for BSG 180 or higher * Bolus insulin * NovoLog per scale ACHS or Q6hrs while NPO * Goal Range: Low 110 mg/dL - High 140 mg/dL - TIGHTEN * Correction Factor: 15 mg/dL/unit - TIGHTEN * Nutritional / Prandial insulin per carb ratio of 1 unit per 6 grams CHO consumed - TIGHTEN * Add overnight Novolog checks to correct hyperglycemia/snacking
[2018-09-30] MEDS: SODIUM CHLORIDE 0.9% IV SCH ×4 (17:06→21:26)
[2018-09-30] MEDS: CISPLATIN IV SCH (17:06)
[2018-09-30] MEDS: MESNA IV SCH ×2 (18:18→21:26)
[2018-09-30] MEDS: IFOSFAMIDE IV SCH (19:05)
[2018-09-30] MEDS: CARBOHYDRATES FOR HYPOGLYCEMIA PO PRN (19:58)
[2018-10-01] MEDS ORDERED: INSULIN ASPART 100 UNITS/ML 3 ML PEN SC SCH
[2018-10-01] MEDS: dexAMETHasone 4 MG TAB PO SCH ×3 (04:45→19:33)
[2018-10-01] MEDS: MoRPHine SULFATE CR 15 MG TABCR PO SCH ×3 (05:29→21:45)
[2018-10-01] MEDS: SODIUM CHLORIDE 0.9% 1000ML 1,000 ML IV SCH ×3 (06:21→18:26)
[2018-10-01 06:28] LABS: Hemoglobin 9.3 g/dL (14.0-18.0); Mean Corpuscular Hgb Conc 32.1 g/dL (32-36); Mean Corpuscular Volume 89.2 fL (80-100); Mean Platelet Volume 8.4 fL (7.4-10.4); Platelet Count 344 K/uL (130-400); RDW Standard Deviation 89.8 fL (36.4-46.3); Red Blood Count 3.25 M/uL (4.7-6.1); White Blood Count 14.36 K/uL (4.8-10.8)
[2018-10-01 07:00] LABS: BUN Creatinine Ratio 28.1 (10-20); Calcium 7.7 mg/dl (8.5-10.1); Creatinine Clr Calc Pharmacy 98.5 ml/min; Est GFR (Non-African American) 97.5; Magnesium 2.2 mg/dl (1.8-2.4); Potassium 4.5 mmol/L (3.5-5.1)
[2018-10-01] MEDS: NICOTINE 21 MG/24 HR TDSY TD SCH (09:13)
[2018-10-01] MEDS: AMPHETAMINE ASP/SULF/DEXTRAMPH 10 MG TAB PO SCH ×2 (09:13→15:36)
[2018-10-01] MEDS: VALACYCLOVIR HCL 500 MG TABLET PO SCH ×2 (09:13→21:11)
[2018-10-01] MEDS: INSULIN ASPART 100 UNITS/ML 3 ML PEN SC SCH ×4 (09:14→21:09)
[2018-10-01] MEDS: INSULIN GLARGINE 100 UNIT/ML VIAL SC SCH ×2 (09:14→21:09)
[2018-10-01] MEDS: HEPARIN 100 UNIT/ML 5ML FLUSH FLUSH PRN ×3 (09:15→21:46)
--- NOTE | 2018-10-01 10:01 | Progress Note ---
DATE: 10/01/2018 DIAGNOSES: 1. Cycle #2 combination TIP. 2. Metastatic testicular cancer. 3. Intracerebral metastasis. 4. Type 1 diabetes mellitus. SUBJECTIVE: Brett was seen at bedside this morning. His mentation is dramatically improved as nursing staff proved to be right. Brett was lacking sleep and was not suffering from chemotherapy-induced neurotoxicity. Brett is ambulating ad camilo, tolerating his diet, reports no increase in pain or discomfort otherwise. Nursing reports no overnight difficulties. He continues to receive chemotherapy with no difficulties at present. OBJECTIVE. GENERAL: Pleasant 28-year-old gentleman, awake, alert, and appropriate, in no acute distress. VITAL SIGNS: Temperature 36.8, pulse 88, respiratory rate 20, blood pressure 116/67. SKIN: Without rash or lesion. HEENT: Oral mucosa without erythema or ulceration. HEART: Regular rate and rhythm. LUNGS: Clear to auscultation. ABDOMEN: Firm, but not significantly distended. Bowel sounds are active. EXTREMITIES: Trace to 1+ peripheral edema bilaterally. NEUROLOGIC: Again, grossly intact. LABORATORY DATA: WBC count 14,360; hemoglobin 9.3; platelet count 344,000. Sodium 133, potassium 4.5, chloride 104, carbon dioxide 24, BUN 30, creatinine 1.05, glucose 164. IMPRESSION: 1. Metastatic testicular cancer. 2. Beginning in day #3 combination TIP chemotherapy. 3. Intracerebral metastasis. 4. Type 1 diabetes mellitus. 5. History of acute renal injury. PLAN: Brett was seen and examined at bedside this morning. I was impressed, his mentation was much better this morning. Yesterday, when he was seen it was not terribly coherent and my concern was Brett may have been experiencing neurotoxicity attributable to ifosfamide. That prove not to be the case. He is much better today. Again, seems to be doing well clinically, nursing reports no difficulties overnight with Brett. He has tolerated his chemotherapy not reporting any nausea or vomiting at present. Review of his most recent peripheral blood counts and serum chemistries are satisfactory to continue therapy as prescribed. We will continue to follow Brett on a daily basis. Appreciate your assistance in the care of this very complex gentleman.
[2018-10-01] MEDS: ENOXAPARIN INJ 40 MG/0.4 ML SYR SQ SCH (12:19)
--- NOTE | 2018-10-01 14:37 | Pharmacy Report ---
Pharmacy Glycemic Short Note 2 - Date of Service October 01, 2018 - Glycemic Short BSG Results (Last 24 hours): 09/30/18 09/30/18 09/30/18 16:45 19:53 20:14 Glucose POC Glucose 134 H 65 L* 98 10/01/18 10/01/18 10/01/18 06:12 07:29 11:39 Glucose 164 H POC Glucose 179 H 166 H OUTPATIENT ANTIDIABETIC REGIMEN: * Admelog Solostar using CR of 10 + sliding scale (TDD = 30 units) * Tresiba 21 units qHS * A1c = 7.5 % 08/26/18 ASSESSMENT: * Mr. Leigh had a hypoglycemic episode last night, 65mg/dL. Potentially due to some larger doses of lantus given 09/30 and 09/29. atc DXM continues. He received 82 units of insulin yesterday, 09/30/18. 40/60 split bt metabolic/correction insulin. PLAN FOR INPATIENT GLYCEMIC CONTROL: * Basal insulin - loosen * Lantus BID as per the following scale: * 13 units for BSG 120 or less * 17 units for BSG above 120mg/dL * Bolus insulin * NovoLog per scale ACHS or Q6hrs while NPO * Goal Range: Low 110 mg/dL - High 140 mg/dL * Correction Factor: 15 mg/dL/unit * Nutritional / Prandial insulin per carb ratio of 1 unit per 6 grams CHO consumed
--- NOTE | 2018-10-01 15:09 | Hospitalist Progress Note ---
Date of Service October 01, 2018 Assessment & Plan (1) Testicular cancer: - Initially diagnosed in Jun 2017; s/p orchiectomy on 06/24/2017 and 4 cycles chemotherapy. - Had large pelvic teratoma resected in 12/2017. - Was lost to follow up and returned in Jul 2018 with recurrent disease. - Received salvage chemo in Aug 2018; now admitted for ongoing chemotherapy. - Oncology following, appreciate input. Receiving Paclitaxel/Cisplatin/ Ifosfamide, day 3 today. - ID ppx: Valtrex 1 gm BID. (2) Lethargy: - Developed acute lethargy over last 12 hours; likely related to fatigue from lack of sleep. - Consider infectious work up if symptoms persist. - Urine drug screen pending. - Not likely related to chemo toxicity. (3) Metastatic cancer to brain: - Presented to ER on 09/17/18 with new onset seizure in setting of brain metastasis. - Continue Decadron 4 mg PO q8hr per rad/onc; currently receiving brain radiation. - Taper steroids per rad/onc recs. - Pt. was not placed on anti-epileptic medication. (4) Type I diabetes mellitus: - Continue Lantus with SSI coverage. - Pharmacy consulted for glycemic management. - BG is now slightly improved, will monitor. (5) History of herpes zoster: - Valtrex 500 mg BID for prophylaxis. (6) Acute kidney injury: - Creatinine at baseline. - IVF per chemo protocol. - Monitor renal function qAM. (7) CKD (chronic kidney disease), stage II: - Renally dose all medications. (8) Avascular necrosis of bone of left hip: - S/p pinning with screws and plate - Had fall recently prior to last admission with worsening left hip pain--> xray from 09/18/18 shows loosening of screws. - Continue MS Contin 30 mg q8hr with Oxycodone 10 mg q6hr prn pain. - Consider Ortho consultation but likely nothing to do acutely given ongoing chemo. (9) Mood disorder: - Continue Adderrall 15 mg BID; Xanax 0.5 mg BID prn. (10) Severe protein-calorie malnutrition: - Encourage carb consistent diet as tolerated. (11) Chronic anemia: - In setting of recent chemotherapy. - Monitor CBC qAM; transfuse for hgb <7.5. (12) Tobacco use: - Nicotine patch ordered. - Encourage tobacco cessation. (13) DVT prophylaxis: - SCDs and Lovenox 40 mg subQ q24hr. Hold Lovenox once plts< 50k. Dispo: Med/surg for planned chemo. Supervising Physician Co-Signing Physician Notes Attending Attestation - Chart reviewed in detail, and care plan extensively d/w SACHA Carpio. I agree w/ the shelton components of her documentation. Day #3 of inpatient chemo for stage 4 testicular ca. Has developed lethargy/encephalopathy - agree with infectious w/u; consider repeat MRI or CT of the head in light of known metastatic focus. Agree with urine drug screen. Supportive care, glycemic control. Vitals acceptable at this time. Mild hyponatremia is stable. Reji Poole MD Subjective Pt. is lethargic, did not wake up for morning rounds. Per bedside nurse, he is awake throughout most of the night and sleep throughout the day. Will order urine drug screen to evaluate for other causes of fatigue. He is otherwise tolerating chemo well, no issues. Physical Exam 2 Vital Signs (Past 24 Hours): Last Vital Signs Temp 36.4 C L 10/01/18 11:45 Pulse 68 10/01/18 11:45 Resp 18 10/01/18 11:45 BP 118/68 10/01/18 11:45 Pulse Ox 100 10/01/18 11:45 Physical Exam: General: Chronically ill appearing young male HEENT: NC/AT; PERRLA with EOMI; [place] conjunctiva, MMM. Neck: Supple and nontender Cardiac: RRR Lungs: CTA bilaterally Abdomen: Bowel normoactive X 4; Nontender to palpation Extremities: Warm. No edema present Neuro: No focal weakness Skin: No rash; mediport site without erythema or tenderness to palpation. Results & Data Laboratory Results 10/01/18 10/01/18 10/01/18 Range/Units 11:39 07:29 06:12 WBC (4.8-10.8) K/uL RBC (4.7-6.1) M/uL Hgb (14.0-18.0) g/dL Hct (42-52) % MCV (80-100) fL MCH (25-34) pg MCHC (32-36) g/dL RDW Std Deviation (36.4-46.3) fL RDW Coeff of Zuleima (11.5-14.5) % Plt Count (130-400) K/uL MPV (7.4-10.4) fL Sodium 133 L (136-145) mmol/L Potassium 4.5 (3.5-5.1) mmol/L Chloride 104 (98-107) mmol/L Carbon Dioxide 24 (21-32) mmol/L Anion Gap 5.0 (3-11) BUN 30 H (7-18) mg/dl Creatinine 1.05 (0.6-1.4) mg/dl Est Cr Clr Drug Dosing 98.5 ml/min Est GFR ( Amer) 113.0 Est GFR (Non-Af Amer) 97.5 BUN/Creatinine Ratio 28.1 H (10-20) Glucose 164 H (70-99) mg/dl POC Glucose 166 H 179 H (70-99) Calcium 7.7 L (8.5-10.1) mg/dl Magnesium 2.2 (1.8-2.4) mg/dl 10/01/18 09/30/18 09/30/18 Range/Units 06:12 20:14 19:53 WBC 14.36 H (4.8-10.8) K/uL RBC 3.25 L (4.7-6.1) M/uL Hgb 9.3 L (14.0-18.0) g/dL Hct 29.0 L (42-52) % MCV 89.2 (80-100) fL MCH 28.6 (25-34) pg MCHC 32.1 (32-36) g/dL RDW Std Deviation 89.8 H (36.4-46.3) fL RDW Coeff of Zuleima 29.0 H (11.5-14.5) % Plt Count 344 (130-400) K/uL MPV 8.4 (7.4-10.4) fL Sodium (136-145) mmol/L Potassium (3.5-5.1) mmol/L Chloride (98-107) mmol/L Carbon Dioxide (21-32) mmol/L Anion Gap (3-11) BUN (7-18) mg/dl Creatinine (0.6-1.4) mg/dl Est Cr Clr Drug Dosing ml/min Est GFR ( Amer) Est GFR (Non-Af Amer) BUN/Creatinine Ratio (10-20) Glucose (70-99) mg/dl POC Glucose 98 65 L* (70-99) Calcium (8.5-10.1) mg/dl Magnesium (1.8-2.4) mg/dl 09/30/18 Range/Units 16:45 WBC (4.8-10.8) K/uL RBC (4.7-6.1) M/uL Hgb (14.0-18.0) g/dL Hct (42-52) % MCV (80-100) fL MCH (25-34) pg MCHC (32-36) g/dL RDW Std Deviation (36.4-46.3) fL RDW Coeff of Zuleima (11.5-14.5) % Plt Count (130-400) K/uL MPV (7.4-10.4) fL Sodium (136-145) mmol/L Potassium (3.5-5.1) mmol/L Chloride (98-107) mmol/L Carbon Dioxide (21-32) mmol/L Anion Gap (3-11) BUN (7-18) mg/dl Creatinine (0.6-1.4) mg/dl Est Cr Clr Drug Dosing ml/min Est GFR ( Amer) Est GFR (Non-Af Amer) BUN/Creatinine Ratio (10-20) Glucose (70-99) mg/dl POC Glucose 134 H (70-99) Calcium (8.5-10.1) mg/dl Magnesium (1.8-2.4) mg/dl
[2018-10-01] MEDS: SODIUM CHLORIDE 0.9% IV SCH ×5 (15:37→21:20)
[2018-10-01] MEDS: CISPLATIN IV SCH (15:37)
[2018-10-01] MEDS: OXYCODONE HCL IR 5 MG TAB (IMMEDIATE RELEASE) PO PRN ×2 (16:28→23:14)
[2018-10-01] MEDS: MESNA IV SCH ×3 (16:56→21:20)
[2018-10-01 17:19] LABS: Amphetamines+Metham, Urine Neg (Neg); Barbiturates, Urine Neg (Neg); Benzodiazepine, Urine Neg (Neg); Cocaine, Urine Neg (Neg); MDMA (Ecstacy), Urine Neg (Neg); Methadone, Urine Neg (Neg); Opiate, Urine Pos (Neg); Phencyclidine, Urine Neg (Neg)
[2018-10-01] MEDS: IFOSFAMIDE IV SCH (17:22)
[2018-10-02] MEDS: dexAMETHasone 4 MG TAB PO SCH ×2 (04:10→16:05)
--- NOTE | 2018-10-02 09:05 | Progress Note ---
DATE: 10/02/2018 DIAGNOSIS: 1. Cycle 2 combination TIP. 2. Metastatic testicular cancer. 3. Intracerebral metastasis. 4. Type 1 diabetes mellitus. SUBJECTIVE: Jayant was seen at bedside. His girlfriend accompanies him today. Several questions were posed including the product of long acting granulocyte colony stimulating growth factor. Patient's fiancee is concerned with impending snowstorm when he is due this coming Saturday. Brett is again somnolent today. Nursing reports no overnight difficulties, and he continues to tolerate chemotherapy without difficulty. His diet has been unchanged. The patient is having regular bowel movements. OBJECTIVE: GENERAL: Again, Brett is somnolent this morning but certainly in no distress. VITAL SIGNS: Temperature 36.4, pulse 95, respiratory rate 20, blood pressure 131/74. SKIN: Without rash or lesion, did not do oral examination. HEENT: Deferred on oral examination. NECK: Supple. Trachea is midline. HEART: Regular rate and rhythm. LUNGS: Clear to auscultation. ABDOMEN: Firm, without distention. EXTREMITIES: Trace peripheral edema bilaterally. NEUROLOGIC: Grossly intact. LABORATORY DATA: Laboratories pending except toxicology screen which reveals positive urine opioids and marijuana. IMPRESSION: 1. Metastatic testicular cancer. 2. Day 4 combination TIP chemotherapy. 3. Intracerebral metastasis. 4. Type 1 diabetes mellitus. PLAN: Brett was seen and examined at bedside this morning. Again, he is somnolent and did not impart much helpful information today. Again, nursing reports no difficulties, and there is no indication that we need to delay continuing chemotherapy. I think he is due to finish up tomorrow and hopefully can be discharged expediently thereafter. I have nothing further to add, and again, appreciate the hospitalist assistance in the care of this complex gentleman.
[2018-10-02] MEDS: MoRPHine SULFATE CR 15 MG TABCR PO SCH ×3 (09:29→20:57)
[2018-10-02] MEDS: INSULIN ASPART 100 UNITS/ML 3 ML PEN SC SCH ×4 (11:16→20:48)
[2018-10-02] MEDS: NICOTINE 21 MG/24 HR TDSY TD SCH (11:26)
[2018-10-02] MEDS: VALACYCLOVIR HCL 500 MG TABLET PO SCH ×2 (11:26→20:50)
[2018-10-02 11:33] LABS: Basophils # (auto) 0.01 K/uL (0-0.2); Basophils % (auto) 0.1 %; Eosinophils # (auto) 0.27 K/uL (0-0.5); Eosinophils % (auto) 2.5 %; Hematocrit (blood only) 29.6 % (42-52); Hemoglobin 9.5 g/dL (14.0-18.0); Immature Granulocytes # (auto) 0.04 K/uL (0.00-0.02); Immature Granulocytes % (auto) 0.4 %; Lymphocytes # (auto) 0.57 K/uL (1.2-3.4); Lymphocytes % (auto) 5.3 %; Mean Corpuscular Hgb Conc 32.1 g/dL (32-36); Mean Corpuscular Volume 88.9 fL (80-100); Mean Platelet Volume 8.5 fL (7.4-10.4); Monocytes # (auto) 0.23 K/uL (0.11-0.59); Monocytes % (auto) 2.2 %; Neutrophils # (auto) 9.57 K/uL (1.4-6.5); Neutrophils % (auto) 89.5 %; Platelet Count 279 K/uL (130-400); RDW Coefficient of Variation 28.8 % (11.5-14.5); Red Blood Count 3.33 M/uL (4.7-6.1); White Blood Count 10.69 K/uL (4.8-10.8)
[2018-10-02] MEDS: OXYCODONE HCL IR 5 MG TAB (IMMEDIATE RELEASE) PO PRN ×3 (11:37→22:11)
[2018-10-02] MEDS: AMPHETAMINE ASP/SULF/DEXTRAMPH 10 MG TAB PO SCH ×2 (11:38→16:20)
[2018-10-02] MEDS: INSULIN GLARGINE 100 UNIT/ML VIAL SC SCH ×2 (11:40→20:49)
[2018-10-02 11:59] LABS: Anisocytosis Present
[2018-10-02 12:00] LABS: BUN Creatinine Ratio 28.1 (10-20); Est GFR (African American) 124.4; Est GFR (Non-African American) 107.3; Potassium 4.3 mmol/L (3.5-5.1)
--- NOTE | 2018-10-02 12:56 | Hospitalist Progress Note ---
Date of Service October 02, 2018 Assessment & Plan (1) Testicular cancer: - Initially diagnosed in Jun 2017; s/p orchiectomy on 06/24/2017 and 4 cycles chemotherapy. - Had large pelvic teratoma resected in 12/2017. - Was lost to follow up and returned in Jul 2018 with recurrent disease. - Received salvage chemo in Aug 2018; now admitted for ongoing chemotherapy. - Oncology following, appreciate input. Receiving Paclitaxel/Cisplatin/ Ifosfamide, day 4 of 5 today. - ID ppx: Valtrex 1 gm BID. (2) Lethargy: - Developed acute lethargy on 10/01, now improved. - Urine drug screen +opiates and marijuana. - Was not likely related to chemo toxicity. (3) Mucositis due to antineoplastic therapy: - Grade I mucositis in setting of chemotherapy. - Will start magic swizzle q6hr prn pain. - Consider addition of Carafate. - Encourage diet as tolerated; IVF per protocol. - Convert to IV meds if unable to take PO. (4) Metastatic cancer to brain: - Presented to ER on 09/17/18 with new onset seizure in setting of brain metastasis. - Continue Decadron 4 mg PO q8hr per rad/onc; currently receiving brain radiation, will complete course on 10/03/18. - Taper steroids slowly at discharge -- 4 mg PO q8hr x 1 week, 4 mg q12hr x 3 days, 4 mg PO daily x 3 days. - Not currently on anti-epileptic medication. (5) Type I diabetes mellitus: - Continue Lantus with SSI coverage. - Pharmacy consulted for glycemic management. (6) History of herpes zoster: - Valtrex 500 mg BID for prophylaxis. - Has new rash on right side of face -- concerning for shingles; will monitor and increase to treatment dose if needed. (7) Acute kidney injury: - Creatinine at baseline. - IVF per chemo protocol. - Monitor renal function qAM. (8) CKD (chronic kidney disease), stage II: - Renally dose all medications. (9) Avascular necrosis of bone of left hip: - S/p pinning with screws and plate - Had fall recently prior to last admission with worsening left hip pain--> xray from 09/18/18 shows loosening of screws. - Continue MS Contin 30 mg q8hr with Oxycodone 10 mg q6hr prn pain. (10) Mood disorder: - Continue Adderrall 15 mg BID; Xanax 0.5 mg BID prn. (11) Anemia due to antineoplastic chemotherapy: - In setting of recent chemotherapy. - Monitor CBC qAM; transfuse for hgb <7.5. (12) Tobacco use: - Nicotine patch ordered. - Encourage tobacco cessation. (13) Severe protein-calorie malnutrition: - Encourage carb consistent diet as tolerated. (14) DVT prophylaxis: - SCDs and Lovenox 40 mg subQ q24hr. Hold Lovenox once plts< 50k. Dispo: Med/surg for planned chemo. Discharge on 10/03/18; will need to follow up for Neulasta injection. Supervising Physician Co-Signing Physician Notes Attending Attestation - Chart reviewed in detail, and care plan d/w SACHA Carpio. I agree w/ the shelton components of her documentation. Urine drug screen with THC. Was lethargy due to illicit THC use (ie - did he smoke in the room??). Thus, encephalopathy may have been toxin induced. Day #4 of inpatient chemo. Agree with increasing valtrex due to concern of facial zoster. Will need ophtho f/u. Other labs/vitals acceptable at this time. Reji Poole MD Subjective Pt. was very agitated this morning, did not allow nurses to enter room frequently and refused morning labs. He was throwing objects across the room as well. His mood was improved after his father arrived and he agreed to morning labwork. Pt. complains of mouth pain, likely related to oral mucositis. Will start magic swizzle q6hr prn. Is on PO narcotics for additional pain relief. Can take PO meds and eat/drink without issues. Will continue to monitor. He developed a new rash on right side of forehead extending up to his scalp. His fiancee states rash is similar to previous shingles outbreak in past. No vesicles present at this time. Will continue to monitor. Review of Systems All systems reviewed & are unremarkable except as noted in HPI & below Constitutional: no fever, no chills and no weakness Ear, Nose, Mouth, Throat: + mouth lesions Respiratory: no cough and no dyspnea Cardiovascular: no chest pain, no palpitations and no edema Gastrointestinal: no abdominal pain, no nausea and no constipation Genitourinary (Male): no difficulty urinating Allergy / Immunological: no rash Physical Exam 2 Vital Signs (Past 24 Hours): Last Vital Signs Temp 36.9 C 10/02/18 12:00 Pulse 89 10/02/18 12:00 Resp 16 10/02/18 12:00 BP 124/77 10/02/18 12:00 Pulse Ox 99 10/02/18 12:00 Physical Exam: General: Chronically ill appearing young male HEENT: NC/AT; PERRLA with EOMI; [place] conjunctiva, MMM. Neck: Supple and nontender Cardiac: RRR Lungs: CTA bilaterally Abdomen: Bowel normoactive X 4; Nontender to palpation Extremities: Warm. No edema present Neuro: No focal weakness Skin: Erythema noted over right side of forehead extending up to right temporal area; areas of previous varicella zoster rash still present. Mediport site without erythema or tenderness to palpation. Results & Data Laboratory Results 10/02/18 10/02/18 10/02/18 Range/Units 11:39 11:25 11:25 WBC 10.69 (4.8-10.8) K/uL RBC 3.33 L (4.7-6.1) M/uL Hgb 9.5 L (14.0-18.0) g/dL Hct 29.6 L (42-52) % MCV 88.9 (80-100) fL MCH 28.5 (25-34) pg MCHC 32.1 (32-36) g/dL RDW Std Deviation 90.0 H (36.4-46.3) fL RDW Coeff of Zuleima 28.8 H (11.5-14.5) % Plt Count 279 (130-400) K/uL MPV 8.5 (7.4-10.4) fL Immature Gran % (Auto) 0.4 % Neut % (Auto) 89.5 % Lymph % (Auto) 5.3 % [place] % (Auto) 2.2 % Eos % (Auto) 2.5 % Baso % (Auto) 0.1 % Immature Gran # (Auto) 0.04 H (0.00-0.02) K/uL Neut # (Auto) 9.57 H (1.4-6.5) K/uL Lymph # (Auto) 0.57 L (1.2-3.4) K/uL [place] # (Auto) 0.23 (0.11-0.59) K/uL Eos # (Auto) 0.27 (0-0.5) K/uL Baso # (Auto) 0.01 (0-0.2) K/uL Anisocytosis Present Sodium 135 L (136-145) mmol/L Potassium 4.3 (3.5-5.1) mmol/L Chloride 101 (98-107) mmol/L Carbon Dioxide 27 (21-32) mmol/L Anion Gap 7.0 (3-11) BUN 27 H (7-18) mg/dl Creatinine 0.97 (0.6-1.4) mg/dl Est Cr Clr Drug Dosing 104.0 ml/min Est GFR ( Amer) 124.4 Est GFR (Non-Af Amer) 107.3 BUN/Creatinine Ratio 28.1 H (10-20) Glucose 114 H (70-99) mg/dl POC Glucose 139 H (70-99) Calcium 8.0 L (8.5-10.1) mg/dl Urine Opiates Screen (Neg) U Codeine Confrm GC/MS Ur Morphine (GC/MS) Ur Hydrocodone (GC/MS) Ur Norhydrocodone Ur Noroxycodone Urine Oxycodone (GC/MS) U Oxymorphone GC/MS Ur Methadone, Qual (Neg) Ur Hydromorphone (GC/MS) Urine Barbiturates (Neg) Ur Phencyclidine (PCP) (Neg) U Amphetamin/Meth Scrn (Neg) MDMA (Ecstasy) Screen (Neg) U Benzodiazepines Scrn (Neg) Ur Cocaine Metabolite (Neg) U Marijuana (THC) Screen (Neg) U Marijuana THC Carboxy 10/02/18 10/01/18 10/01/18 Range/Units 09:21 20:20 16:31 WBC (4.8-10.8) K/uL RBC (4.7-6.1) M/uL Hgb (14.0-18.0) g/dL Hct (42-52) % MCV (80-100) fL MCH (25-34) pg MCHC (32-36) g/dL RDW Std Deviation (36.4-46.3) fL RDW Coeff of Zuleima (11.5-14.5) % Plt Count (130-400) K/uL MPV (7.4-10.4) fL Immature Gran % (Auto) % Neut % (Auto) % Lymph % (Auto) % [place] % (Auto) % Eos % (Auto) % Baso % (Auto) % Immature Gran # (Auto) (0.00-0.02) K/uL Neut # (Auto) (1.4-6.5) K/uL Lymph # (Auto) (1.2-3.4) K/uL [place] # (Auto) (0.11-0.59) K/uL Eos # (Auto) (0-0.5) K/uL Baso # (Auto) (0-0.2) K/uL Anisocytosis Sodium (136-145) mmol/L Potassium (3.5-5.1) mmol/L Chloride (98-107) mmol/L Carbon Dioxide (21-32) mmol/L Anion Gap (3-11) BUN (7-18) mg/dl Creatinine (0.6-1.4) mg/dl Est Cr Clr Drug Dosing ml/min Est GFR ( Amer) Est GFR (Non-Af Amer) BUN/Creatinine Ratio (10-20) Glucose (70-99) mg/dl POC Glucose 111 H 95 159 H (70-99) Calcium (8.5-10.1) mg/dl Urine Opiates Screen (Neg) U Codeine Confrm GC/MS Ur Morphine (GC/MS) Ur Hydrocodone (GC/MS) Ur Norhydrocodone Ur Noroxycodone Urine Oxycodone (GC/MS) U Oxymorphone GC/MS Ur Methadone, Qual (Neg) Ur Hydromorphone (GC/MS) Urine Barbiturates (Neg) Ur Phencyclidine (PCP) (Neg) U Amphetamin/Meth Scrn (Neg) MDMA (Ecstasy) Screen (Neg) U Benzodiazepines Scrn (Neg) Ur Cocaine Metabolite (Neg) U Marijuana (THC) Screen (Neg) U Marijuana THC Carboxy 10/01/18 10/01/18 Range/Units 16:30 16:30 WBC (4.8-10.8) K/uL RBC (4.7-6.1) M/uL Hgb (14.0-18.0) g/dL Hct (42-52) % MCV (80-100) fL MCH (25-34) pg MCHC (32-36) g/dL RDW Std Deviation (36.4-46.3) fL RDW Coeff of Zuleima (11.5-14.5) % Plt Count (130-400) K/uL MPV (7.4-10.4) fL Immature Gran % (Auto) % Neut % (Auto) % Lymph % (Auto) % [place] % (Auto) % Eos % (Auto) % Baso % (Auto) % Immature Gran # (Auto) (0.00-0.02) K/uL Neut # (Auto) (1.4-6.5) K/uL Lymph # (Auto) (1.2-3.4) K/uL [place] # (Auto) (0.11-0.59) K/uL Eos # (Auto) (0-0.5) K/uL Baso # (Auto) (0-0.2) K/uL Anisocytosis Sodium (136-145) mmol/L Potassium (3.5-5.1) mmol/L Chloride (98-107) mmol/L Carbon Dioxide (21-32) mmol/L Anion Gap (3-11) BUN (7-18) mg/dl Creatinine (0.6-1.4) mg/dl Est Cr Clr Drug Dosing ml/min Est GFR ( Amer) Est GFR (Non-Af Amer) BUN/Creatinine Ratio (10-20) Glucose (70-99) mg/dl POC Glucose (70-99) Calcium (8.5-10.1) mg/dl Urine Opiates Screen Pos H (Neg) U Codeine Confrm GC/MS Pending Ur Morphine (GC/MS) Pending Ur Hydrocodone (GC/MS) Pending Ur Norhydrocodone Pending Ur Noroxycodone Pending Urine Oxycodone (GC/MS) Pending U Oxymorphone GC/MS Pending Ur Methadone, Qual Neg (Neg) Ur Hydromorphone (GC/MS) Pending Urine Barbiturates Neg (Neg) Ur Phencyclidine (PCP) Neg (Neg) U Amphetamin/Meth Scrn Neg (Neg) MDMA (Ecstasy) Screen Neg (Neg) U Benzodiazepines Scrn Neg (Neg) Ur Cocaine Metabolite Neg (Neg) U Marijuana (THC) Screen Pos H (Neg) U Marijuana THC Carboxy Pending
[2018-10-02] MEDS: ENOXAPARIN INJ 40 MG/0.4 ML SYR SQ SCH (13:34)
[2018-10-02] MEDS: SODIUM CHLORIDE 0.9% 1000ML 1,000 ML IV SCH ×2 (14:29→18:56)
[2018-10-02] MEDS: LIDOCAINE HCL 2% VISCOUS 60 ML, DiphenhydrAMINE Syrup 150 MG, ALUMINUM/MAGNESIUM SUSP 6... MT PRN (14:30)
[2018-10-02] MEDS: SODIUM CHLORIDE 0.9% IV SCH ×4 (16:07→20:51)
[2018-10-02] MEDS: CISPLATIN IV SCH (16:07)
[2018-10-02] MEDS: CARBOHYDRATES FOR HYPOGLYCEMIA PO PRN (16:25)
[2018-10-02] MEDS: MESNA IV SCH ×2 (17:20→20:51)
[2018-10-02] MEDS: IFOSFAMIDE IV SCH (17:49)
[2018-10-02] MEDS ORDERED: FUROSEMIDE 20 MG in SYRINGE 0 ML IV PRN (20:00)
[2018-10-02] MEDS: HEPARIN 100 UNIT/ML 5ML FLUSH FLUSH PRN (20:58)
--- NOTE | 2018-10-02 22:54 | XRay Report ---
XR foot RT 2V CLINICAL HISTORY: 28 years-old Male presenting with foot pain. TECHNIQUE: Frontal, oblique, and lateral views of the right foot were obtained. COMPARISON: Plain radiographs of the right first toe from 2015. FINDINGS: Multifocal fractures of the first through fourth metatarsals. Spiral fractures of the proximal metaph yses of the first through fourth of the tarsals. There is 1-2 mm of lateral displacement of the dista l fracture fragment of the second metatarsal and 4 mm of lateral displacement of the distal fracture fragment of the third metatarsal. Nondisplaced first and fourth metatarsal fractures. Additionally, m ildly angulated and displaced fractures of the heads of the second through fourth metatarsals. These may be intra-articular in the second and third into the joints. No offset of the bases of the metatar sals at the midfoot articulations. Os peroneum noted. Diffuse soft tissue swelling of the forefoot. IMPRESSION: 1. Proximal metadiaphyseal fractures of the first through fourth metatarsals with minimal displaceme nt at the second metatarsal and mild displacement at the third metatarsal. No offset of the Lisfranc articulations, however, cross-sectional imaging may better exclude a Lisfranc injury pattern. 2. Mildly angulated fractures of the second through fourth metatarsal heads, which may be intra-lima cular at the second and third MTP joints. Electronically signed by: Willie Castrejon M.D. 10/02/2018 10:53 PM
[2018-10-03] MEDS: MoRPHine SULFATE CR 15 MG TABCR PO SCH ×3 (05:22→22:03)
[2018-10-03] MEDS: CARBOHYDRATES FOR HYPOGLYCEMIA PO PRN ×2 (05:35→05:53)
[2018-10-03] MEDS: OXYCODONE HCL IR 5 MG TAB (IMMEDIATE RELEASE) PO PRN ×3 (06:08→22:01)
[2018-10-03 06:38] LABS: Hematocrit (blood only) 31.2 % (42-52); Hemoglobin 10.4 g/dL (14.0-18.0); Mean Corpuscular Hgb Conc 33.3 g/dL (32-36); Mean Corpuscular Volume 88.9 fL (80-100); Mean Platelet Volume 8.7 fL (7.4-10.4); Platelet Count 291 K/uL (130-400); RDW Coefficient of Variation 28.8 % (11.5-14.5); RDW Standard Deviation 89.7 fL (36.4-46.3); Red Blood Count 3.51 M/uL (4.7-6.1); White Blood Count 10.78 K/uL (4.8-10.8)
[2018-10-03 07:09] LABS: Albumin Level 2.7 gm/dl (3.4-5.0); BUN Creatinine Ratio 29.5 (10-20); Calcium 8.2 mg/dl (8.5-10.1); Creatinine Clr Calc Pharmacy 100.9 ml/min; Est GFR (African American) 125.9; Est GFR (Non-African American) 108.7; Magnesium 1.9 mg/dl (1.8-2.4); Potassium 3.9 mmol/L (3.5-5.1)
[2018-10-03 07:12] LABS: Albumin Globulin Ratio 0.7 (0.9-2); Bilirubin,Total 0.5 mg/dl (0.2-1); Globulin 3.7 gm/dl (2.5-4.0); Total Protein 6.4 gm/dl (6.4-8.2)
[2018-10-03] MEDS: INSULIN ASPART 100 UNITS/ML 3 ML PEN SC SCH ×4 (08:08→20:51)
[2018-10-03] MEDS ORDERED: HYDROmorphone INJ 2 MG/ML SYR/VIAL IV STA (08:14)
[2018-10-03] MEDS ORDERED: HYDROmorphone INJ 2 MG/ML SYR/VIAL ONE (08:17)
--- NOTE | 2018-10-03 09:51 | Progress Note ---
DATE: 10/03/2018 MEDICAL ONCOLOGY PROGRESS NOTE DIAGNOSES: 1. Cycle 2 combination TIP. 2. Metastatic testicular cancer. 2. Intracerebral metastasis. 3. Type 1 diabetes mellitus. SUBJECTIVE: Brett was seen at bedside again this morning. Nursing reports Brett apparently fell while going to the bathroom last night. They also report Brett's room being in disarray because of items brought from his home are scattered about, creating a dangerous environment. Apparently, he continues to try to smoke cigarettes and/or marijuana while inhouse. Urinalysis, tox screen done on the confirms presence of marijuana as well as opioids which he is prescribed. Unfortunately, Brett suffered multiple metatarsal fractures of the right foot. Ortho is on consult, but has not seen the patient yet. Brett is in considerable pain and we will provide a dose of intravenous Dilaudid until ortho sees him later. By the looks of the x-ray, he will most likely require some sort of operative fixation. He otherwise is proceeding through chemotherapy, no significant side effects have been reported. Brett is tolerated his diet. He is moving his bowels. OBJECTIVE: GENERAL: He is in moderate distress, again complaining of foot pain. VITAL SIGNS: Temperature 36.5, pulse 73, respiratory rate 16, blood pressure 114/76. SKIN: Without rash or lesion. HEENT: Oral mucosa is dry. No buccal lesions or ulcerations. NECK: Supple. HEART: Tachy, but regular. LUNGS: Clear to auscultation bilaterally. ABDOMEN: Soft, nontender, nondistended. EXTREMITIES: Examination of the right foot, there is a profound swelling over the first through third metatarsal region. Trace peripheral edema otherwise. NEUROLOGIC: Grossly intact. LABORATORY DATA: WBC count 10,780, hemoglobin 10.4, platelet count 290,000. Sodium 135, potassium 3.9, chloride 101, carbon dioxide 28, BUN 28, creatinine 0.96, albumin 2.7. RADIOGRAPHIC DATA: Foot x-ray proximal, metadiaphyseal fractures of the first through fourth metatarsals with minimal displacement at the second metatarsal, mild displacement of the third metatarsal, mild angulated fractures of the second through fourth metatarsal heads which may be intra-articular at the second and third MTP joints. ASSESSMENT AND PLAN: 1. Multiple metatarsal fractures of the right foot. 2. Metastatic testicular cancer. 3. Day 5 combination TIP chemotherapy. 4. Intracerebral metastasis. 5. Type 1 diabetes mellitus. PLAN: Brett was seen and examined this morning. Again, nursing reports Brett fell on the bathroom, they believed because he was trying to smoke either cigarettes or marijuana. Fall was not witnessed by staff members. Brett told me that he "passed out", but could not provide specific details. Appropriately, x-rays were obtained revealing multiple fractures and probably will need operative fixation. He is on the last day of his chemotherapy, and perhaps after completion, he will most likely be going to surgery to repair his foot. Advised Dr. Cruz of the events of last night. Provided Brett with a dose of Dilaudid until ortho sees him this morning.
[2018-10-03] MEDS ORDERED: INSULIN GLARGINE 100 UNIT/ML VIAL SC ONE ×2 (10:30→21:00)
[2018-10-03] MEDS: dexAMETHasone 4 MG TAB PO SCH ×2 (12:49→20:50)
[2018-10-03] MEDS: NICOTINE 21 MG/24 HR TDSY TD SCH (12:49)
[2018-10-03] MEDS: AMPHETAMINE ASP/SULF/DEXTRAMPH 10 MG TAB PO SCH ×2 (12:49→16:55)
[2018-10-03] MEDS: ENOXAPARIN INJ 40 MG/0.4 ML SYR SQ SCH (12:50)
[2018-10-03] MEDS: SODIUM CHLORIDE 0.9% 1000ML 1,000 ML IV SCH ×2 (14:19→20:15)
[2018-10-03] MEDS: VALACYCLOVIR HCL 500 MG TABLET PO SCH ×3 (14:19→20:56)
--- NOTE | 2018-10-03 14:52 | Pharmacy Report ---
Pharmacy Glycemic Short Note 2 - Date of Service October 03, 2018 - Glycemic Short BSG Results (Last 24 hours): 10/02/18 10/02/18 10/02/18 16:23 16:39 20:03 Glucose POC Glucose 57 L* 101 H 117 H 10/02/18 10/02/18 10/03/18 20:23 22:02 05:29 Glucose POC Glucose 128 H 160 H 61 L* 10/03/18 10/03/18 10/03/18 05:50 06:06 06:15 Glucose 62 L POC Glucose 66 L* 90 10/03/18 10/03/18 10/03/18 07:33 07:34 08:02 Glucose POC Glucose 61 L* 59 L* 113 H 10/03/18 10/03/18 10/03/18 11:35 11:36 14:34 Glucose POC Glucose 59 L* 68 L* 71 OUTPATIENT ANTIDIABETIC REGIMEN: * Admelog Solostar using CR of 10 + sliding scale (TDD = 30 units) * Tresiba 21 units qHS * A1c = 7.5 % 08/26/18 ASSESSMENT: * Mr. Leigh unfortunately had lows again today, despite continued reduction in insulin doses. He received 10 units of lantus at 1100 today. 13 units of lantus ---> 10 units PLAN FOR INPATIENT GLYCEMIC CONTROL: * Basal insulin - loosen * Lantus BID as per the following scale: * 4 units for BSG less than 180mg/dL * 6 units for BSG 180mg/dL OR ABOVE * Bolus insulin - loosen * NovoLog per scale ACHS or Q6hrs while NPO * Goal Range: Low 110 mg/dL - High 140 mg/dL * Correction Factor: 20 mg/dL/unit * Nutritional / Prandial insulin per carb ratio of 1 unit per 7 grams CHO consumed
--- NOTE | 2018-10-03 15:30 | Hospitalist Progress Note ---
Date of Service October 03, 2018 Assessment & Plan (1) Testicular cancer: - Initially diagnosed in Jun 2017; s/p orchiectomy on 06/24/2017 and 4 cycles chemotherapy. - Had large pelvic teratoma resected in 12/2017. - Was lost to follow up and returned in Jul 2018 with recurrent disease. - Received salvage chemo in Aug 2018; now admitted for ongoing chemotherapy. - Oncology following, appreciate input. Receiving Paclitaxel/Cisplatin/ Ifosfamide, day 5 of 5 -- will complete this evening. - Neulasta scheduled on 10/04/18 @18:00. (2) Foot fracture, right: - S/p fall last evening -- does not remember falling (may have been related to substance abuse as there was concern pt. was using marijuana in room) - Foot XR showed proximal metadiaphyseal fractures of 1st to 4th metatarsals with displacement of second and third; mildly angulated fractures of 2nd to 4th metatarsal heads. - Dilaudid 2 mg IV x 1 dose this morning; avoid further doses of IV narcotics. - MS Contin 30 mg q8hr with Oxycodone 10 mg q6hr prn pain -- avoid increase in home dose. - Non weightbearing on the right foot -- currently strict bed rest, will continue overnight. - Consulted orthopedics, recommend walking boot and conservative measures. Will need to follow up in 4 weeks. (3) Acute encephalopathy: - Developed lethargy on 10/02/18; has worsening encephalopathy this morning , has been violent towards staff and refusing treatment. - Concern for new brain metastasis vs. substance abuse vs. other infection. - Pt. has prescription for Xanax in room, may have been taking medication during this admission. - MRI of brain showed similar appearance of focus and enhancement in left internal capsule compared to prior imaging. - Ammonia level ordered in the morning. - Previous u/a was negative; consider repeat u/a, CXR and blood cultures. - Consider rule out of disseminated herpes zoster in setting of active infection on forehead/scalp. - Hold benzos due to altered mental status; will continue narcotics due to severe pain. (4) Metastatic cancer to brain: - Presented to ER on 09/17/18 with new onset seizure in setting of brain metastasis. - Continue Decadron 4 mg PO BID, will need slow taper. - Did not receive last treatment of brain radiation today due to lethargy; will need outpt treatment next week. - Repeat MRI of brain pending to rule out new metastasis. - Not currently on seizure medication. (5) Mucositis due to antineoplastic therapy: - Grade I mucositis in setting of chemotherapy. - Magic swizzle q6hr prn pain. - Consider addition of Carafate. - Encourage diet as tolerated; IVF per protocol. - Convert to IV meds if unable to take PO. (6) Herpes zoster: - Papular erythematous lesions on right forehead and scalp, appears to be developing zoster. - Will increase Valtrex ppx to 1 gm TID for treatment dosing. - Has followed with ophthamologist due to concern for eye involvement, consider consult. (7) Type I diabetes mellitus: - Continue Lantus with SSI coverage. - Pharmacy consulted for glycemic management. (8) Acute kidney injury: - Creatinine at baseline. - IVF per chemo protocol. - Monitor renal function qAM. (9) CKD (chronic kidney disease), stage II: - Renally dose all medications. (10) Avascular necrosis of bone of left hip: - S/p pinning with screws and plate - Had fall recently prior to last admission with worsening left hip pain--> xray from 09/18/18 shows loosening of screws. - Continue MS Contin 30 mg q8hr with Oxycodone 10 mg q6hr prn pain. (11) Mood disorder: - Continue Adderrall 15 mg BID; hold Xanax due to AMS. (12) Anemia due to antineoplastic chemotherapy: - In setting of recent chemotherapy. - Monitor CBC qAM; transfuse for hgb <7.5. (13) Tobacco use: - Nicotine patch ordered. - Encourage tobacco cessation. (14) Severe protein-calorie malnutrition: - Encourage carb consistent diet as tolerated. (15) DVT prophylaxis: - SCDs and Lovenox 40 mg subQ q24hr. Hold Lovenox once plts< 50k. Dispo: Med/surg for planned chemo. Discharge pending improvement in altered mental status. Supervising Physician Co-Signing Physician Notes Attending Attestation - Chart reviewed in detail, and care plan d/w SACHA Carpio extensively ( and multiple times today). I agree w/ the shelton components of her documentation. Patient w/ fall (or syncope) overnight - pt does not recall events - leading to right foot fractures (several metatarsals, etc). Willy found bottle of xanax in his room - concern of him taking extra xanax while here. I spoke with pt's willy - she reports he is depressed but has refused counseling in the past and has refused SSRI therapy. He has known, severe anxiety. Toxic encephalopathy did improve through the day. MRI brain noted to be stable/unchanged relative to previous MRI with no bleeding , etc. Other labs and vitals still remain acceptable. Completed his chemo today. Reji Poole MD Subjective Pt. developed worsening lethargy over last 24 hours. He fell last evening; has multiple right foot fractures noted on XR. Orthopedic surgery is consulted. Pt. does not remember fall last evening. Over the past 12 hours, marijuana pipe was confiscated from room. There is concern patient may be taking other medications in the room leading to increased lethargy/altered mental status. He has been violent with nursing staff, refusing medications and is not eating. He did not receive brain radiation this morning due to lethargy. Pt. had recently received Dilaudid 2 mg IV for right foot pain prior to arriving for RT but was lethargic prior to narcotic dose. Rash on right side of head is now papular, no vesicles noted. Will increase Valtrex to 1 gm TID for treatment dosing of herpes zoster. His girlfriend came out of room this afternoon with Xanax bottle. She states pt. filled script at beginning of September. If he was taking prescription correctly, he should have ~20 pills left. Pt. has 5 pills left in bottle. He has had prescription in his bag during this admission. Review of Systems All systems reviewed & are unremarkable except as noted in HPI & below Constitutional: + weakness; no fever and no chills Respiratory: no cough and no dyspnea Cardiovascular: no chest pain, no palpitations and no edema Gastrointestinal: no abdominal pain and no nausea Musculoskeletal: + joint pain (Right foot pain) Integumentary: + rash (Right side of forehead extending up into scalp) Physical Exam 2 Vital Signs (Past 24 Hours): Last Vital Signs Temp 36.3 C L 10/03/18 11:28 Pulse 86 10/03/18 11:28 Resp 18 10/03/18 11:28 BP 110/69 10/03/18 11:28 Pulse Ox 100 10/03/18 11:28 Physical Exam: General: Chronically ill appearing young male; lethargic, does not wake up to answer all questions. HEENT: NC/AT; PERRLA with EOMI; [place] conjunctiva, MMM. Neck: Supple and nontender Cardiac: RRR Lungs: CTA bilaterally Abdomen: Bowel normoactive X 4; Nontender to palpation Extremities: Warm. No edema present on exam today, resolved from 10/02/18. Neuro: No focal weakness; pt. is agitated but alert and oriented x3. Skin: Erythematous papules noted over right side of forehead extending up to right scalp; areas of previous varicella zoster rash still present. Mediport site without erythema. Results & Data Laboratory Results 10/03/18 10/03/18 10/03/18 Range/Units 14:34 11:36 11:35 WBC (4.8-10.8) K/uL RBC (4.7-6.1) M/uL Hgb (14.0-18.0) g/dL Hct (42-52) % MCV (80-100) fL MCH (25-34) pg MCHC (32-36) g/dL RDW Std Deviation (36.4-46.3) fL RDW Coeff of Zuleima (11.5-14.5) % Plt Count (130-400) K/uL MPV (7.4-10.4) fL Sodium (136-145) mmol/L Potassium (3.5-5.1) mmol/L Chloride (98-107) mmol/L Carbon Dioxide (21-32) mmol/L Anion Gap (3-11) BUN (7-18) mg/dl Creatinine (0.6-1.4) mg/dl Est Cr Clr Drug Dosing ml/min Est GFR ( Amer) Est GFR (Non-Af Amer) BUN/Creatinine Ratio (10-20) Glucose (70-99) mg/dl POC Glucose 71 68 L* 59 L* (70-99) Calcium (8.5-10.1) mg/dl Magnesium (1.8-2.4) mg/dl Total Bilirubin (0.2-1) mg/dl AST (15-37) U/L ALT (12-78) U/L Alkaline Phosphatase (45-117) U/L Total Protein (6.4-8.2) gm/dl Albumin (3.4-5.0) gm/dl Globulin (2.5-4.0) gm/dl Albumin/Globulin Ratio (0.9-2) 10/03/18 10/03/18 10/03/18 Range/Units 08:02 07:34 07:33 WBC (4.8-10.8) K/uL RBC (4.7-6.1) M/uL Hgb (14.0-18.0) g/dL Hct (42-52) % MCV (80-100) fL MCH (25-34) pg MCHC (32-36) g/dL RDW Std Deviation (36.4-46.3) fL RDW Coeff of Zuleima (11.5-14.5) % Plt Count (130-400) K/uL MPV (7.4-10.4) fL Sodium (136-145) mmol/L Potassium (3.5-5.1) mmol/L Chloride (98-107) mmol/L Carbon Dioxide (21-32) mmol/L Anion Gap (3-11) BUN (7-18) mg/dl Creatinine (0.6-1.4) mg/dl Est Cr Clr Drug Dosing ml/min Est GFR ( Amer) Est GFR (Non-Af Amer) BUN/Creatinine Ratio (10-20) Glucose (70-99) mg/dl POC Glucose 113 H 59 L* 61 L* (70-99) Calcium (8.5-10.1) mg/dl Magnesium (1.8-2.4) mg/dl Total Bilirubin (0.2-1) mg/dl AST (15-37) U/L ALT (12-78) U/L Alkaline Phosphatase (45-117) U/L Total Protein (6.4-8.2) gm/dl Albumin (3.4-5.0) gm/dl Globulin (2.5-4.0) gm/dl Albumin/Globulin Ratio (0.9-2) 10/03/18 10/03/18 10/03/18 Range/Units 06:15 06:06 06:06 WBC 10.78 (4.8-10.8) K/uL RBC 3.51 L (4.7-6.1) M/uL Hgb 10.4 L (14.0-18.0) g/dL Hct 31.2 L (42-52) % MCV 88.9 (80-100) fL MCH 29.6 (25-34) pg MCHC 33.3 (32-36) g/dL RDW Std Deviation 89.7 H (36.4-46.3) fL RDW Coeff of Zuleima 28.8 H (11.5-14.5) % Plt Count 291 (130-400) K/uL MPV 8.7 (7.4-10.4) fL Sodium 135 L (136-145) mmol/L Potassium 3.9 (3.5-5.1) mmol/L Chloride 101 (98-107) mmol/L Carbon Dioxide 28 (21-32) mmol/L Anion Gap 6.0 (3-11) BUN 28 H (7-18) mg/dl Creatinine 0.96 (0.6-1.4) mg/dl Est Cr Clr Drug Dosing 100.9 ml/min Est GFR ( Amer) 125.9 Est GFR (Non-Af Amer) 108.7 BUN/Creatinine Ratio 29.5 H (10-20) Glucose 62 L (70-99) mg/dl POC Glucose 90 (70-99) Calcium 8.2 L (8.5-10.1) mg/dl Magnesium 1.9 (1.8-2.4) mg/dl Total Bilirubin 0.5 (0.2-1) mg/dl AST 53 H (15-37) U/L ALT 76 (12-78) U/L Alkaline Phosphatase 101 (45-117) U/L Total Protein 6.4 (6.4-8.2) gm/dl Albumin 2.7 L (3.4-5.0) gm/dl Globulin 3.7 (2.5-4.0) gm/dl Albumin/Globulin Ratio 0.7 L (0.9-2) 10/03/18 10/03/18 10/02/18 Range/Units 05:50 05:29 22:02 WBC (4.8-10.8) K/uL RBC (4.7-6.1) M/uL Hgb (14.0-18.0) g/dL Hct (42-52) % MCV (80-100) fL MCH (25-34) pg MCHC (32-36) g/dL RDW Std Deviation (36.4-46.3) fL RDW Coeff of Zuleima (11.5-14.5) % Plt Count (130-400) K/uL MPV (7.4-10.4) fL Sodium (136-145) mmol/L Potassium (3.5-5.1) mmol/L Chloride (98-107) mmol/L Carbon Dioxide (21-32) mmol/L Anion Gap (3-11) BUN (7-18) mg/dl Creatinine (0.6-1.4) mg/dl Est Cr Clr Drug Dosing ml/min Est GFR ( Amer) Est GFR (Non-Af Amer) BUN/Creatinine Ratio (10-20) Glucose (70-99) mg/dl POC Glucose 66 L* 61 L* 160 H (70-99) Calcium (8.5-10.1) mg/dl Magnesium (1.8-2.4) mg/dl Total Bilirubin (0.2-1) mg/dl AST (15-37) U/L ALT (12-78) U/L Alkaline Phosphatase (45-117) U/L Total Protein (6.4-8.2) gm/dl Albumin (3.4-5.0) gm/dl Globulin (2.5-4.0) gm/dl Albumin/Globulin Ratio (0.9-2) 10/02/18 10/02/18 10/02/18 Range/Units 20:23 20:03 16:39 WBC (4.8-10.8) K/uL RBC (4.7-6.1) M/uL Hgb (14.0-18.0) g/dL Hct (42-52) % MCV (80-100) fL MCH (25-34) pg MCHC (32-36) g/dL RDW Std Deviation (36.4-46.3) fL RDW Coeff of Zuleima (11.5-14.5) % Plt Count (130-400) K/uL MPV (7.4-10.4) fL Sodium (136-145) mmol/L Potassium (3.5-5.1) mmol/L Chloride (98-107) mmol/L Carbon Dioxide (21-32) mmol/L Anion Gap (3-11) BUN (7-18) mg/dl Creatinine (0.6-1.4) mg/dl Est Cr Clr Drug Dosing ml/min Est GFR ( Amer) Est GFR (Non-Af Amer) BUN/Creatinine Ratio (10-20) Glucose (70-99) mg/dl POC Glucose 128 H 117 H 101 H (70-99) Calcium (8.5-10.1) mg/dl Magnesium (1.8-2.4) mg/dl Total Bilirubin (0.2-1) mg/dl AST (15-37) U/L ALT (12-78) U/L Alkaline Phosphatase (45-117) U/L Total Protein (6.4-8.2) gm/dl Albumin (3.4-5.0) gm/dl Globulin (2.5-4.0) gm/dl Albumin/Globulin Ratio (0.9-2) 10/02/18 Range/Units 16:23 WBC (4.8-10.8) K/uL RBC (4.7-6.1) M/uL Hgb (14.0-18.0) g/dL Hct (42-52) % MCV (80-100) fL MCH (25-34) pg MCHC (32-36) g/dL RDW Std Deviation (36.4-46.3) fL RDW Coeff of Zuleima (11.5-14.5) % Plt Count (130-400) K/uL MPV (7.4-10.4) fL Sodium (136-145) mmol/L Potassium (3.5-5.1) mmol/L Chloride (98-107) mmol/L Carbon Dioxide (21-32) mmol/L Anion Gap (3-11) BUN (7-18) mg/dl Creatinine (0.6-1.4) mg/dl Est Cr Clr Drug Dosing ml/min Est GFR ( Amer) Est GFR (Non-Af Amer) BUN/Creatinine Ratio (10-20) Glucose (70-99) mg/dl POC Glucose 57 L* (70-99) Calcium (8.5-10.1) mg/dl Magnesium (1.8-2.4) mg/dl Total Bilirubin (0.2-1) mg/dl AST (15-37) U/L ALT (12-78) U/L Alkaline Phosphatase (45-117) U/L Total Protein (6.4-8.2) gm/dl Albumin (3.4-5.0) gm/dl Globulin (2.5-4.0) gm/dl Albumin/Globulin Ratio (0.9-2)
[2018-10-03] MEDS ORDERED: GADOBUTROL 65ML VIAL IV PRN (16:04)
--- NOTE | 2018-10-03 16:32 | Magnetic Resonance Report ---
MR brain wo/w con CLINICAL HISTORY: 28 years-old Male presenting with AMS, recent fall, head injury, blurred vision and dizziness, question of metastasis on prior MRI. TECHNIQUE: Multisequence, multiplanar MR imaging of the brain was performed before and after the admi nistration of intravenous contrast. IV contrast: 6 mL of Gadavist. COMPARISON: 09/17/2018. FINDINGS: Localizer images: Unremarkable. The examination is degraded by motion artifact. This negatively affects diagnostic sensitivity the ex am. Ventricles and sulci normal in size. Incidental note made of saurav cisterna magna. T2 hyperintense enh ancing focus in the genuine of the left internal capsule as seen on prior exam. The appearance is unc hanged from prior. This demonstrates facilitated diffusion on ADC. The degree of facilitated diffusio n has increased from prior exam. No other enhancing foci. No mass effect or midline shift. No restricted diffusion to suggest acute ischemia. No hemorrhage. No extra-axial fluid collection. T2 skull base flow voids preserved. Bone marrow signal intensity within the calvarium within normal l imits. IMPRESSION: The examination is degraded by motion artifact. This negatively affects diagnostic sensitivity the ex am. 1. Similar appearance of the subcentimeter focus of facilitated diffusion and enhancement in the lef t internal capsule. This could represent an evolving subacute infarct. Differential considerations in clude capillary telangiectasia. An less the patient has a history of malignancy, a metastatic lesion is considered unlikely. Follow-up contrast enhanced MR brain in 3-6 months is recommended to ensure s tability. Electronically signed by: Willie Castrejon M.D. 10/03/2018 4:30 PM
--- NOTE | 2018-10-03 16:41 | Orthopedic Consultation ---
Date of Consultation October 03, 2018 Assessment & Plan (1) Foot fracture, right: He was seen and examined by Dr. Vasques today. He has multiple fractures in his foot. These can be treated with conservative management, specifically a walking boot. We recommended non weightbearing on his right foot and using the walking boot for the next month. We will plan to see him again in clinic for follow up in approx 4 weeks. History of Present Illness Reason for Consultation: right foot pain Attending Physician: Reji Poole History of Present Illness Vish is a 28 y/o male with a h/o metastatic testicular cancer that we were consulted to see regarding right foot pain and fractures. His fiance is at his bedside. He was seen today by Dr. Vasques as well. He had just returned from MRI. He is noncooperative with giving detailed answers regarding his foot or any injury. His fiance says that he called her last night and said he thinks he fainted in his room and now his foot was hurting. He has a history of left hip AVN and prior surgery. He has some chronic hip pain but nothing that is new or different for him. He also apparently had a fall earlier this month and his hip was xrayed but not his foot. Allergies Allergy/AdvReac Type Severity Reaction Status Date / Time No Known Allergies Allergy Verified 08/28/18 11:32 Home Medications Home Medications Medication Instructions Recorded Confirmed Type alprazolam [Xanax] 0.5 mg PO BID 07/25/18 10/02/18 History celecoxib [Celebrex] 200 mg PO DAILY PRN 07/25/18 10/02/18 History dextroamphetamine-amphetamine 15 mg PO BID 07/25/18 10/02/18 History [Adderall] insulin lispro [Admelog SoloStar See Label Instructions .ROUTE 07/25/18 History U-100 Insulin] .COMPLEX multivitamin 1 tab PO DAILY 07/25/18 10/02/18 History furosemide 40 mg PO DAILY PRN 09/17/18 10/02/18 History insulin degludec [Tresiba 21 unit SUBCUT QPM 09/17/18 10/02/18 History FlexTouch U-100] morphine [MS Contin] 30 mg PO Q8 09/17/18 10/02/18 History oxycodone [Roxicodone] 10 mg PO Q6 PRN 09/17/18 10/02/18 History quetiapine [Seroquel] 0 mg PO DAILY 09/17/18 10/02/18 History valacyclovir [Valtrex] 500 mg PO BID 09/17/18 10/01/18 History dexamethasone 4 mg PO Q8H 14 Days #42 tab 09/18/18 10/02/18 Rx Patient History Medical History Chronic pain syndrome Severe protein-calorie malnutrition Thrombocytopenia Type 1 diabetes mellitus with hypoglycemia Pancytopenia due to antineoplastic chemotherapy CKD (chronic kidney disease) stage 2, GFR 60-89 ml/min Teratoma of pelvis (Chronic) Testis cancer (Chronic) Cancer Testicular CA with mets Anxiety Diabetes (Chronic) Avascular necrosis of femur head, left Surgical History History of repair of left hip joint History of orchiectomy History of nephrectomy Family History Grandfather Heart attack Other Cancer Social History marital status: Single Current Living Situation: Significant Other Feels Safe at Home: Yes Smoking Status: Current every day smoker Tobacco Type: cigarettes Cigarettes per Day: 20-30 Second Hand Exposure: Yes Hx Alcohol Use: No Hx Substance Use: Yes substance use type: marijuana Beliefs That Will Affect Care: None Communication Ability: Effective Physical Exam 2 Vital Signs (Past 24 Hours): Last Vital Signs Temp 36.3 C L 10/03/18 11:28 Pulse 86 10/03/18 11:28 Resp 18 10/03/18 11:28 BP 110/69 10/03/18 11:28 Pulse Ox 100 10/03/18 11:28 Musculoskeletal: He was awake, NAD. But fairly difficult to examine today. His right foot is swollen and has some ecchymosis. He is tender to palpation globally around his foot. He is able to move his toes with flex/extension. Skin is intact. Results & Data Diagnostic Findings xray shows first through fourth metatarsal base fractures and 2nd through 4th metatarsal head fractures.
[2018-10-03] MEDS: CISPLATIN IV SCH (17:04)
[2018-10-03] MEDS: SODIUM CHLORIDE 0.9% IV SCH ×4 (17:04→21:17)
[2018-10-03] MEDS: MESNA IV SCH ×2 (18:28→21:17)
[2018-10-03] MEDS: IFOSFAMIDE IV SCH (19:03)
[2018-10-03] MEDS ORDERED: INSULIN GLARGINE SOLOSTAR 100 UNITS/ML 3 ML PEN SC ONE (21:00)
[2018-10-04] MEDS ORDERED: ONDANSETRON HCL 6 MG in DEXTROSE 5% 50 ML IV PRN (03:12)
[2018-10-04] MEDS ORDERED: INSULIN ASPART 100 UNITS/ML 3 ML PEN SC ONE (04:00)
[2018-10-04] MEDS: HEPARIN 100 UNIT/ML 5ML FLUSH FLUSH PRN ×2 (05:48→12:10)
[2018-10-04 06:04] LABS: Hemoglobin 10.2 g/dL (14.0-18.0); Mean Corpuscular Hgb Conc 32.9 g/dL (32-36); Mean Corpuscular Volume 87.6 fL (80-100); Mean Platelet Volume 8.7 fL (7.4-10.4); Platelet Count 273 K/uL (130-400); RDW Coefficient of Variation 28.1 % (11.5-14.5); RDW Standard Deviation 88.2 fL (36.4-46.3); Red Blood Count 3.54 M/uL (4.7-6.1); White Blood Count 10.35 K/uL (4.8-10.8)
[2018-10-04] MEDS: MoRPHine SULFATE CR 15 MG TABCR PO SCH ×3 (06:18→21:47)
[2018-10-04 06:33] LABS: Albumin Level 2.9 gm/dl (3.4-5.0); BUN Creatinine Ratio 24.9 (10-20); Calcium 8.4 mg/dl (8.5-10.1); Creatinine Clr Calc Pharmacy 82.1 ml/min; Est GFR (African American) 98.1; Est GFR (Non-African American) 84.7; Magnesium 1.7 mg/dl (1.8-2.4); Potassium 3.9 mmol/L (3.5-5.1)
[2018-10-04 06:36] LABS: Albumin Globulin Ratio 0.7 (0.9-2); Bilirubin,Total 0.5 mg/dl (0.2-1); Globulin 4.1 gm/dl (2.5-4.0)
[2018-10-04] MEDS: VALACYCLOVIR HCL 500 MG TABLET PO SCH ×4 (07:21→20:07)
[2018-10-04] MEDS: ONDANSETRON INJ 2 MG/ML 2 ML VIAL IV PRN (09:33)
[2018-10-04] MEDS: OXYCODONE HCL IR 5 MG TAB (IMMEDIATE RELEASE) PO PRN ×3 (09:33→23:38)
[2018-10-04] MEDS: dexAMETHasone 4 MG TAB PO SCH ×2 (09:35→20:06)
[2018-10-04] MEDS: AMPHETAMINE ASP/SULF/DEXTRAMPH 10 MG TAB PO SCH ×2 (09:36→16:22)
[2018-10-04] MEDS: MAGNESIUM SULFATE / D5W 1 GM/100 ML BAG IV SCH ×2 (09:36→10:47)
[2018-10-04] MEDS: NICOTINE 21 MG/24 HR TDSY TD SCH (09:50)
[2018-10-04] MEDS: INSULIN ASPART 100 UNITS/ML 3 ML PEN SC SCH ×4 (10:16→20:05)
--- NOTE | 2018-10-04 10:47 | Pharmacy Report ---
Pharmacy Glycemic Short Note 2 - Date of Service October 04, 2018 - Glycemic Short BSG Results (Last 24 hours): 10/03/18 10/03/18 10/03/18 11:35 11:36 14:34 Glucose POC Glucose 59 L* 68 L* 71 10/03/18 10/03/18 10/04/18 16:41 20:40 03:10 Glucose POC Glucose 78 139 H 205 H 10/04/18 10/04/18 05:46 08:01 Glucose 170 H POC Glucose 188 H OUTPATIENT ANTIDIABETIC REGIMEN: * Admelog Solostar using CR of 10 + sliding scale (TDD = 30 units) * Tresiba 21 units qHS * A1c = 7.5 % 08/26/18 ASSESSMENT: * Patient has been experiencing recurrent hypoglycemia secondary to poor PO intake. * Pharmacy has been dosing Lantus BID (small doses) but this may have contributed to hypoglycemia as well. Pt doses basal insulin once daily as an outpatient. Will transition back to once daily dosing. * Outpatient dosing is ~ 51 units/day. Will reduce dosing slightly for NPO/poor PO. Basal insulin still needed in type 1 while NPO. PLAN FOR INPATIENT GLYCEMIC CONTROL: * Basal insulin - transition back to once daily dosing * Lantus 15 units SQ Q24hrs. Give dose today with lunch, then tomorrow with dinner, following day at HS * Will titrate upwards towards outpatient dosing of 21 units based on BSG trends and AM fasting BSG * Bolus insulin - no change * NovoLog per scale ACHS or Q6hrs while NPO * Goal Range: Low 110 mg/dL - High 140 mg/dL * Correction Factor: 20 mg/dL/unit * Nutritional / Prandial insulin per carb ratio of 1 unit per 7 grams CHO consumed
[2018-10-04] MEDS ORDERED: INSULIN GLARGINE 100 UNIT/ML VIAL SC ONE (12:00)
[2018-10-04 13:08] LABS: Hydrocodone Urine NEGATIVE NG/ML (CUTOFF=50); Hydromor Urine NEGATIVE NG/ML (CUTOFF=50); Marijuana Quant, GCMS Urine 52 NG/ML (CUTOFF=5); Morphine Urine 5370 NG/ML (CUTOFF=50); Norhydrocodone Conf Ur NEGATIVE NG/ML (CUTOFF=50); Noroxycodone Urine 71 NG/ML (CUTOFF=50); Oxycodone Urine NEGATIVE NG/ML (CUTOFF=50)
[2018-10-04] MEDS: ENOXAPARIN INJ 40 MG/0.4 ML SYR SQ SCH (13:23)
[2018-10-04] MEDS: LIDOCAINE HCL 2% VISCOUS 60 ML, DiphenhydrAMINE Syrup 150 MG, ALUMINUM/MAGNESIUM SUSP 6... MT PRN (13:34)
[2018-10-04 15:16] LABS: BUN Creatinine Ratio 24.7 (10-20); Calcium 8.6 mg/dl (8.5-10.1); Creatinine Clr Calc Pharmacy 65.7 ml/min; Est GFR (African American) 84.1; Est GFR (Non-African American) 72.6; Potassium 3.9 mmol/L (3.5-5.1)
--- NOTE | 2018-10-04 15:34 | Hospitalist Progress Note ---
Date of Service October 04, 2018 Assessment & Plan (1) Testicular cancer: - Initially diagnosed in Jun 2017; s/p orchiectomy on 06/24/2017 and 4 cycles chemotherapy. - Had large pelvic teratoma resected in 12/2017. - Was lost to follow up and returned in Jul 2018 with recurrent disease. - Received salvage chemo in Aug 2018; was admitted for ongoing chemo. - Oncology following. Receiving Paclitaxel/Cisplatin/Ifosfamide, completed chemo on 10/03/2018. - Neulasta scheduled this evening at 18:00. (2) Foot fracture, right: - S/p fall in the evening on 10/02/18 -- does not remember falling (likely related to substance abuse, was likely taking home Xanax in room) - Foot XR: proximal metadiaphyseal fractures of 1st to 4th metatarsals with displacement of second and third. - MS Contin 30 mg q8hr with Oxycodone 10 mg q6hr prn pain. - Non weightbearing on the right foot; applied walking boot this afternoon. - Consulted orthopedics, will need to follow up in 4 weeks. (3) Hyponatremia: - Na level dropping, 128 (corrected level in setting of hyperglycemia) on labs this afternoon. - Has h/o chronic hyponatremia, Na level ~134. - Low serum osmo, high urine sodium and osmo - labs consistent with SIADH but pt. appears dehydrated in setting of +orthostatics and tachycardia. - Give 500 cc bolus; start NS at 80 cc/hr. - Repeat BMP at midnight to monitor Na level. (4) Acute encephalopathy: - Now resolved, was likely related to abuse of home Xanax in room; Xanax bottle was confiscated on 10/03/18. - MRI of brain: similar appearance of focus and enhancement in left internal capsule compared to prior imaging. - Ammonia level was WNL. - Previous u/a was negative. - Resume home Xanax 0.5 mg BID prn anxiety to avoid acute benzo withdrawal. (5) Metastatic cancer to brain: - Presented to ER on 09/17/18 with new onset seizure in setting of brain metastasis. - Continue Decadron 4 mg PO BID, will need slow taper. - Did not receive last treatment of brain radiation on 10/03 due to lethargy; will need tx on 10/06/18. - Repeat MRI of brain negative for new metastasis. - Not currently on seizure medication. (6) Mucositis due to antineoplastic therapy: - Grade I mucositis in setting of chemotherapy. - Magic swizzle q6hr prn pain. (7) Herpes zoster: - Papular erythematous lesions on right forehead and scalp, appears to be developing zoster. - Increased Valtrex ppx to 1 gm TID for treatment dosing (end date: 10/09/2018) - Has followed with ophthamologist due to concern for eye involvement, consider consult. (8) Type I diabetes mellitus: - Continue Lantus with SSI coverage. - Pharmacy consulted for glycemic management. (9) Acute kidney injury: - Creatinine at baseline, BUN is slowly rising. - Monitor renal function qAM. (10) CKD (chronic kidney disease), stage II: - Renally dose all medications. (11) Avascular necrosis of bone of left hip: - S/p pinning with screws and plate - Had fall recently prior to last admission with worsening left hip pain--> xray from 09/18/18 shows loosening of screws. - Continue MS Contin 30 mg q8hr with Oxycodone 10 mg q6hr prn pain. (12) Mood disorder: - Continue Adderrall 15 mg BID; Xanax 0.5 mg BID prn. (13) Anemia due to antineoplastic chemotherapy: - In setting of recent chemotherapy. - Monitor CBC qAM; transfuse for hgb <7.5. (14) Tobacco use: - Nicotine patch ordered. - Encourage tobacco cessation. (15) Elevated LFTs: - AST and ALT elevated; T. bili and Alk phos WNL. - Continue to monitor qAM. (16) Hypomagnesemia: - Mag level 1.7 - ordered mag sulfate 2 gm IV. (17) Severe protein-calorie malnutrition: - Encourage carb consistent diet as tolerated. (18) DVT prophylaxis: - SCDs and Lovenox 40 mg subQ q24hr. Hold Lovenox once plts< 50k. Dispo: Discharge on 10/05/18 pending improvement in hyponatremia, orthostastic hypotension and N/V. Valtrex, Compazine sent to [facility]. For Valtrex, 2.5 days are covered with no cost, he needs prior auth for ongoing script. May have pills left at home from prior script, will need to verify. PT/OT ordered. Supervising Physician Co-Signing Physician Notes Attending Attestation & Progress Note - Pt seen/examined, chart reviewed, care plan extensively discussed with SACHA Carpio. I agree w/ the shelton components of her documentation. Pt reports being thirsty. He has had little to no PO intake today. Did have 1 episode of emesis this am. No diarrhea. For 1-2 days, maybe more, he has had mild dizziness with standing. When orthostatics were checked today he was very dizzy/lightheaded. vitals - tachy, +orthostatic, no fever gen - cacechtic, but awake/alert skin - probable zoster rash over V1 distribution, right head/scalp eyes - no zoster rash/vesicles over right eye mouth - MM dry heart - tachy, s1, s2 lungs - CTA b/l abd - soft, NT ext - no edema; right foot in walking boot labs reviewed; Na 126; corrected 128 Cr 1.3 today; was previously <1 A/P: 1. hyponatremia - appears to be hypovolemic in nature given his dehydration, orthostasis, etc. Give NS bolus now followed by maintenance overnight. Serial BMPs. He also has baseline mild hyponatremia - urine Na and urine osm would suggest some element of SIADH - likely from cancer. 2. mild acute kidney injury - 2nd to #1. Serial BMPs. 3. right foot fractures - nonoperative Rx, walking boot, NWB status to RLE. 4. tachycardia - if this does not resolve with hydration consider CTA chest to r/o PEs. Alternatively tachy could be due to amphetamine use, anxiety, etc. 5. T1DM, uncontrolled - pharmacy managing and their efforts greatly appreciated. 6. polysubstance abuse - THC pipe found in pt's room several nights ago; was also taking his own bottle of xanax while here; this has been confiscated. 7. testicular ca - per oncology; advanced. 8. v1 distribution zoster - valtrex 1gm TID x 10 days. Would consult ophtho - they may recommend eye drops until he can be seen in the clinic. Reji Poole MD Subjective He has pain in right foot, has been using home medications. Rash is unchanged, remains itchy overall. No vesicles noted on exam. He has been ambulating on right foot, is not compliant with right non weight bearing order. Walking boot was ordered via stock room today, fits well. He had nausea/vomiting this morning , did not eat breakfast. Is more alert and awake this morning; has not been taking additional doses of Xanax from home as bottle was confiscated. Na level dropping, was 126 on labs this afternoon. Will continue to monitor over next 24 hours, is not considered stable for discharge at this point. Review of Systems All systems reviewed & are unremarkable except as noted in HPI & below Constitutional: + weakness; no fever and no chills Respiratory: no cough and no dyspnea Cardiovascular: + edema (Right foot ); no chest pain and no palpitations Gastrointestinal: + nausea and + vomiting; no abdominal pain, no constipation and no diarrhea/loose stools Genitourinary (Male): no difficulty urinating Musculoskeletal: + joint pain (Right foot ) Integumentary: + rash (Right forehead/scalp) and + lesions (See HPI) Physical Exam 2 Vital Signs (Past 24 Hours): Last Vital Signs Temp 36.9 C 10/04/18 14:51 Pulse 122 H 10/04/18 14:51 Resp 18 10/04/18 14:51 BP 100/70 10/04/18 14:51 Pulse Ox 100 10/04/18 14:51 Physical Exam: General: Chronically ill appearing young male; awake and alert to questions today. HEENT: NC/AT; PERRLA with EOMI; [place] conjunctiva, MMM. Neck: Supple and nontender Cardiac: RRR Lungs: CTA bilaterally Abdomen: Bowel normoactive X 4; Nontender to palpation Extremities: Warm. Edema in right foot, ecchymosis noted over 1st-3rd metatarsal area. Tender to palpation. Neuro: No focal weakness; alert, no agitation. Skin: Erythematous papules over right side of forehead extending up to right scalp unchanged; areas of previous varicella zoster rash still present. Mediport site without erythema Results & Data Laboratory Results 10/04/18 10/04/18 10/04/18 Range/Units Unknown 14:49 12:00 WBC (4.8-10.8) K/uL RBC (4.7-6.1) M/uL Hgb (14.0-18.0) g/dL Hct (42-52) % MCV (80-100) fL MCH (25-34) pg MCHC (32-36) g/dL RDW Std Deviation (36.4-46.3) fL RDW Coeff of Zuleima (11.5-14.5) % Plt Count (130-400) K/uL MPV (7.4-10.4) fL Sodium 126 L (136-145) mmol/L Potassium 3.9 (3.5-5.1) mmol/L Chloride 97 L (98-107) mmol/L Carbon Dioxide 23 (21-32) mmol/L Anion Gap 6.0 (3-11) BUN 33 H (7-18) mg/dl Creatinine 1.34 (0.6-1.4) mg/dl Est Cr Clr Drug Dosing 65.7 ml/min Est GFR ( Amer) 84.1 Est GFR (Non-Af Amer) 72.6 BUN/Creatinine Ratio 24.7 H (10-20) Glucose 201 H (70-99) mg/dl POC Glucose (70-99) Osmolality (280-300) mOsm/kg Calcium 8.6 (8.5-10.1) mg/dl Magnesium (1.8-2.4) mg/dl Total Bilirubin (0.2-1) mg/dl AST (15-37) U/L ALT (12-78) U/L Alkaline Phosphatase (45-117) U/L Ammonia (11-32) umol/L Total Protein (6.4-8.2) gm/dl Albumin (3.4-5.0) gm/dl Globulin (2.5-4.0) gm/dl Albumin/Globulin Ratio (0.9-2) Urine Osmolality 538 (500-800) mOsm/kg Ur Random Sodium 139 mmol/L U Codeine Confrm GC/MS (CUTOFF=50) NG/ML Ur Morphine (GC/MS) (CUTOFF=50) NG/ML Ur Hydrocodone (GC/MS) (CUTOFF=50) NG/ML Ur Norhydrocodone (CUTOFF=50) NG/ML Ur Noroxycodone (CUTOFF=50) NG/ML Urine Oxycodone (GC/MS) (CUTOFF=50) NG/ML U Oxymorphone GC/MS (CUTOFF=50) NG/ML Ur Hydromorphone (GC/MS) (CUTOFF=50) NG/ML U Marijuana THC Carboxy (CUTOFF=5) NG/ML 10/04/18 10/04/18 10/04/18 Range/Units 11:20 08:38 08:01 WBC (4.8-10.8) K/uL RBC (4.7-6.1) M/uL Hgb (14.0-18.0) g/dL Hct (42-52) % MCV (80-100) fL MCH (25-34) pg MCHC (32-36) g/dL RDW Std Deviation (36.4-46.3) fL RDW Coeff of Zuleima (11.5-14.5) % Plt Count (130-400) K/uL MPV (7.4-10.4) fL Sodium (136-145) mmol/L Potassium (3.5-5.1) mmol/L Chloride (98-107) mmol/L Carbon Dioxide (21-32) mmol/L Anion Gap (3-11) BUN (7-18) mg/dl Creatinine (0.6-1.4) mg/dl Est Cr Clr Drug Dosing ml/min Est GFR ( Amer) Est GFR (Non-Af Amer) BUN/Creatinine Ratio (10-20) Glucose (70-99) mg/dl POC Glucose 256 H 188 H (70-99) Osmolality 279 L (280-300) mOsm/kg Calcium (8.5-10.1) mg/dl Magnesium (1.8-2.4) mg/dl Total Bilirubin (0.2-1) mg/dl AST (15-37) U/L ALT (12-78) U/L Alkaline Phosphatase (45-117) U/L Ammonia (11-32) umol/L Total Protein (6.4-8.2) gm/dl Albumin (3.4-5.0) gm/dl Globulin (2.5-4.0) gm/dl Albumin/Globulin Ratio (0.9-2) Urine Osmolality (500-800) mOsm/kg Ur Random Sodium mmol/L U Codeine Confrm GC/MS (CUTOFF=50) NG/ML Ur Morphine (GC/MS) (CUTOFF=50) NG/ML Ur Hydrocodone (GC/MS) (CUTOFF=50) NG/ML Ur Norhydrocodone (CUTOFF=50) NG/ML Ur Noroxycodone (CUTOFF=50) NG/ML Urine Oxycodone (GC/MS) (CUTOFF=50) NG/ML U Oxymorphone GC/MS (CUTOFF=50) NG/ML Ur Hydromorphone (GC/MS) (CUTOFF=50) NG/ML U Marijuana THC Carboxy (CUTOFF=5) NG/ML 10/04/18 10/04/18 10/04/18 Range/Units 05:46 05:46 05:46 WBC 10.35 (4.8-10.8) K/uL RBC 3.54 L (4.7-6.1) M/uL Hgb 10.2 L (14.0-18.0) g/dL Hct 31.0 L (42-52) % MCV 87.6 (80-100) fL MCH 28.8 (25-34) pg MCHC 32.9 (32-36) g/dL RDW Std Deviation 88.2 H (36.4-46.3) fL RDW Coeff of Zuleima 28.1 H (11.5-14.5) % Plt Count 273 (130-400) K/uL MPV 8.7 (7.4-10.4) fL Sodium 131 L (136-145) mmol/L Potassium 3.9 (3.5-5.1) mmol/L Chloride 98 (98-107) mmol/L Carbon Dioxide 24 (21-32) mmol/L Anion Gap 9.0 (3-11) BUN 29 H (7-18) mg/dl Creatinine 1.18 (0.6-1.4) mg/dl Est Cr Clr Drug Dosing 82.1 ml/min Est GFR ( Amer) 98.1 Est GFR (Non-Af Amer) 84.7 BUN/Creatinine Ratio 24.9 H (10-20) Glucose 170 H (70-99) mg/dl POC Glucose (70-99) Osmolality (280-300) mOsm/kg Calcium 8.4 L (8.5-10.1) mg/dl Magnesium 1.7 L (1.8-2.4) mg/dl Total Bilirubin 0.5 (0.2-1) mg/dl AST 74 H (15-37) U/L ALT 123 H (12-78) U/L Alkaline Phosphatase 113 (45-117) U/L Ammonia 19.0 (11-32) umol/L Total Protein 7.0 (6.4-8.2) gm/dl Albumin 2.9 L (3.4-5.0) gm/dl Globulin 4.1 H (2.5-4.0) gm/dl Albumin/Globulin Ratio 0.7 L (0.9-2) Urine Osmolality (500-800) mOsm/kg Ur Random Sodium mmol/L U Codeine Confrm GC/MS (CUTOFF=50) NG/ML Ur Morphine (GC/MS) (CUTOFF=50) NG/ML Ur Hydrocodone (GC/MS) (CUTOFF=50) NG/ML Ur Norhydrocodone (CUTOFF=50) NG/ML Ur Noroxycodone (CUTOFF=50) NG/ML Urine Oxycodone (GC/MS) (CUTOFF=50) NG/ML U Oxymorphone GC/MS (CUTOFF=50) NG/ML Ur Hydromorphone (GC/MS) (CUTOFF=50) NG/ML U Marijuana THC Carboxy (CUTOFF=5) NG/ML 10/04/18 10/03/18 10/03/18 Range/Units 03:10 20:40 16:41 WBC (4.8-10.8) K/uL RBC (4.7-6.1) M/uL Hgb (14.0-18.0) g/dL Hct (42-52) % MCV (80-100) fL MCH (25-34) pg MCHC (32-36) g/dL RDW Std Deviation (36.4-46.3) fL RDW Coeff of Zuleima (11.5-14.5) % Plt Count (130-400) K/uL MPV (7.4-10.4) fL Sodium (136-145) mmol/L Potassium (3.5-5.1) mmol/L Chloride (98-107) mmol/L Carbon Dioxide (21-32) mmol/L Anion Gap (3-11) BUN (7-18) mg/dl Creatinine (0.6-1.4) mg/dl Est Cr Clr Drug Dosing ml/min Est GFR ( Amer) Est GFR (Non-Af Amer) BUN/Creatinine Ratio (10-20) Glucose (70-99) mg/dl POC Glucose 205 H 139 H 78 (70-99) Osmolality (280-300) mOsm/kg Calcium (8.5-10.1) mg/dl Magnesium (1.8-2.4) mg/dl Total Bilirubin (0.2-1) mg/dl AST (15-37) U/L ALT (12-78) U/L Alkaline Phosphatase (45-117) U/L Ammonia (11-32) umol/L Total Protein (6.4-8.2) gm/dl Albumin (3.4-5.0) gm/dl Globulin (2.5-4.0) gm/dl Albumin/Globulin Ratio (0.9-2) Urine Osmolality (500-800) mOsm/kg Ur Random Sodium mmol/L U Codeine Confrm GC/MS (CUTOFF=50) NG/ML Ur Morphine (GC/MS) (CUTOFF=50) NG/ML Ur Hydrocodone (GC/MS) (CUTOFF=50) NG/ML Ur Norhydrocodone (CUTOFF=50) NG/ML Ur Noroxycodone (CUTOFF=50) NG/ML Urine Oxycodone (GC/MS) (CUTOFF=50) NG/ML U Oxymorphone GC/MS (CUTOFF=50) NG/ML Ur Hydromorphone (GC/MS) (CUTOFF=50) NG/ML U Marijuana THC Carboxy (CUTOFF=5) NG/ML 10/01/18 Range/Units 16:30 WBC (4.8-10.8) K/uL RBC (4.7-6.1) M/uL Hgb (14.0-18.0) g/dL Hct (42-52) % MCV (80-100) fL MCH (25-34) pg MCHC (32-36) g/dL RDW Std Deviation (36.4-46.3) fL RDW Coeff of Zuleima (11.5-14.5) % Plt Count (130-400) K/uL MPV (7.4-10.4) fL Sodium (136-145) mmol/L Potassium (3.5-5.1) mmol/L Chloride (98-107) mmol/L Carbon Dioxide (21-32) mmol/L Anion Gap (3-11) BUN (7-18) mg/dl Creatinine (0.6-1.4) mg/dl Est Cr Clr Drug Dosing ml/min Est GFR ( Amer) Est GFR (Non-Af Amer) BUN/Creatinine Ratio (10-20) Glucose (70-99) mg/dl POC Glucose (70-99) Osmolality (280-300) mOsm/kg Calcium (8.5-10.1) mg/dl Magnesium (1.8-2.4) mg/dl Total Bilirubin (0.2-1) mg/dl AST (15-37) U/L ALT (12-78) U/L Alkaline Phosphatase (45-117) U/L Ammonia (11-32) umol/L Total Protein (6.4-8.2) gm/dl Albumin (3.4-5.0) gm/dl Globulin (2.5-4.0) gm/dl Albumin/Globulin Ratio (0.9-2) Urine Osmolality (500-800) mOsm/kg Ur Random Sodium mmol/L U Codeine Confrm GC/MS NEGATIVE (CUTOFF=50) NG/ML Ur Morphine (GC/MS) 5370 A (CUTOFF=50) NG/ML Ur Hydrocodone (GC/MS) NEGATIVE (CUTOFF=50) NG/ML Ur Norhydrocodone NEGATIVE (CUTOFF=50) NG/ML Ur Noroxycodone 71 A (CUTOFF=50) NG/ML Urine Oxycodone (GC/MS) NEGATIVE (CUTOFF=50) NG/ML U Oxymorphone GC/MS 161 A (CUTOFF=50) NG/ML Ur Hydromorphone (GC/MS) NEGATIVE (CUTOFF=50) NG/ML U Marijuana THC Carboxy 52 A (CUTOFF=5) NG/ML
[2018-10-04] MEDS ORDERED: ALPRAZolam 0.5 MG TABLET PO PRN (15:41)
[2018-10-04] MEDS ORDERED: PEGFILGRASTIM 6 MG/0.6 ML SYR SQ SCH (18:00)
[2018-10-04] MEDS ORDERED: SODIUM CHLORIDE 0.9% 1000ML 500 ML IV ONE (18:05)
[2018-10-04] MEDS: SODIUM CHLORIDE 0.9% 1000ML 1,000 ML IV SCH (18:49)
[2018-10-04] MEDS ORDERED: SODIUM CHLORIDE 1 GM TABLET PO SCH (21:00)
[2018-10-05 00:41] LABS: BUN Creatinine Ratio 30.6 (10-20); Calcium 8.5 mg/dl (8.5-10.1); Creatinine Clr Calc Pharmacy 75.2 ml/min; Est GFR (African American) 99.1; Est GFR (Non-African American) 85.5; Potassium 4.1 mmol/L (3.5-5.1)
[2018-10-05] MEDS: ONDANSETRON INJ 2 MG/ML 2 ML VIAL IV PRN ×2 (01:08→13:48)
[2018-10-05] MEDS: MoRPHine SULFATE CR 15 MG TABCR PO SCH ×2 (05:41→14:36)
[2018-10-05] MEDS: SODIUM CHLORIDE 0.9% 1000ML 1,000 ML IV SCH (05:43)
[2018-10-05 06:23] LABS: Hematocrit (blood only) 29.9 % (42-52); Mean Corpuscular Hgb Conc 33.4 g/dL (32-36); Mean Corpuscular Volume 86.7 fL (80-100); Platelet Count 289 K/uL (130-400); RDW Coefficient of Variation 27.3 % (11.5-14.5); Red Blood Count 3.45 M/uL (4.7-6.1); White Blood Count 19.95 K/uL (4.8-10.8)
[2018-10-05 06:50] LABS: Albumin Level 3.1 gm/dl (3.4-5.0); BUN Creatinine Ratio 26.6 (10-20); Calcium 8.7 mg/dl (8.5-10.1); Creatinine Clr Calc Pharmacy 62.9 ml/min; Est GFR (African American) 79.8; Est GFR (Non-African American) 68.9; Magnesium 1.9 mg/dl (1.8-2.4); Potassium 3.8 mmol/L (3.5-5.1)
[2018-10-05 06:53] LABS: Albumin Globulin Ratio 0.8 (0.9-2); Bilirubin,Total 0.7 mg/dl (0.2-1); Globulin 4.1 gm/dl (2.5-4.0); Total Protein 7.2 gm/dl (6.4-8.2)
[2018-10-05] MEDS: OXYCODONE HCL IR 5 MG TAB (IMMEDIATE RELEASE) PO PRN ×2 (07:08→13:07)
[2018-10-05 07:42] VITALS: TEMP 98.2; O2SAT 98
[2018-10-05] MEDS: VALACYCLOVIR HCL 500 MG TABLET PO SCH ×2 (08:50→14:36)
[2018-10-05] MEDS: dexAMETHasone 4 MG TAB PO SCH (08:51)
[2018-10-05] MEDS: NICOTINE 21 MG/24 HR TDSY TD SCH (08:51)
[2018-10-05] MEDS: AMPHETAMINE ASP/SULF/DEXTRAMPH 10 MG TAB PO SCH ×2 (08:53→15:37)
[2018-10-05] MEDS: INSULIN ASPART 100 UNITS/ML 3 ML PEN SC SCH ×2 (08:54→13:06)
[2018-10-05] MEDS ORDERED: IOVERSOL 100ml IV PRN (09:22)
--- NOTE | 2018-10-05 09:40 | CT Scan Report ---
CT angio chest PE protocol CT DOSE: 180.77 mGy.cm HISTORY: Chest pain PE TECHNIQUE: Multiaxial CT images of the chest were performed following the intravenous administration of contrast to evaluate the pulmonary arteries. Maximal intensity projection images were also obtaine d. A dose lowering technique was utilized adhering to the principles of ALARA. COMPARISON STUDY: 08/25/2018 FINDINGS: Study is negative for pulmonary embolus. Scattered peribronchial thickening and nodular-typ e changes considered similar compared to the prior study. Generalized esophageal wall thickening suggesting a component of esophagitis. Moderate gastric disten tion. IMPRESSION: 1. Study is negative for pulmonary embolus. 2. Scattered basilar nodularity unchanged from the prior exam. 3. Mild peribronchial thickening throughout both hemithoraces. 4. Generalized esophageal wall thickening raising the possibility of esophagitis. The above report was generated using voice recognition software. It may contain grammatical, syntax or spelling errors. Electronically signed by: Onofre Alarcon M.D. 10/05/2018 9:38 AM
--- NOTE | 2018-10-05 10:31 | Progress Note ---
DATE: 10/05/2018 MEDICAL ONCOLOGY PROGRESS NOTE DIAGNOSES: 1. Cycle #2 combination TIP completed. 2. Metastatic testicular cancer. 3. Multiple metatarsal fractures of the right foot. 4. Intracerebral metastasis. 5. Type 1 diabetes mellitus. SUBJECTIVE: Brett was seen and examined at bedside this morning. He is more awake and lucid, is able to answer questions appropriately. He is actually inquiring about possibly going home. Review of orthopedics note that they believe they can treat his fractures conservatively and heel boot has been applied. Nursing reports some electrolyte dysfunction overnight but as long as he is doing well, we will arrange for expedient followup. I would go ahead and proceed with discharge today. Nursing reported no overnight problems. OBJECTIVE: GENERAL: A 28-year-old, awake, alert, appropriate, in no acute distress. VITAL SIGNS: Temperature 36.8, pulse 125, respiratory rate 20, blood pressure 110/81. SKIN: He has erythematous papules over the right scalp extending towards the occiput. Rash looks consistent with possible zoster. Oral mucosa without erythema or ulceration. HEART: Regular rate and rhythm. LUNGS: Clear to auscultation bilaterally. ABDOMEN: Soft, nontender, nondistended, without palpable hepatosplenomegaly. EXTREMITIES: No clubbing, cyanosis or edema. NEUROLOGIC: Grossly intact. IMPRESSION: 1. Metastatic testicular cancer. 2. Completed cycle #2 of TIP. 3. Multiple metatarsal fractures, right foot. 4. Hyponatremia. 5. Herpes zoster. 6. Acute renal injury. 7. Type 1 diabetes mellitus. PLAN: Brett imparted this morning he would like to go home. I do not think his electrolyte dysfunction is severe enough to keep him here. Obviously, he will need medications including antivirals and antiemetics to go home on. We will ensure that Brett is seen in the office here in the next couple of days. Apparently, orthopedics feels they can manage his fractures conservatively, so I do not think there are other outstanding medical issues preventing Brett from being discharged today. If you have questions or concerns, feel free to contact me directly. Conversely, if I am missing something clinically or reason why Brett needs to stay, please let me know as well.
[2018-10-05] MEDS ORDERED: SODIUM CHLORIDE 0.9% 1000ML 1,000 ML IV ONE (11:16)
[2018-10-05] MEDS: ENOXAPARIN INJ 40 MG/0.4 ML SYR SQ SCH (13:06)
[2018-10-05 14:52] LABS: BUN Creatinine Ratio 27.4 (10-20); Calcium 8.1 mg/dl (8.5-10.1); Creatinine Clr Calc Pharmacy 65.2 ml/min; Est GFR (African American) 83.4; Est GFR (Non-African American) 71.9; Potassium 3.9 mmol/L (3.5-5.1)
[2018-10-05 15:41] VITALS: BP 112/80; PULSE 82
[2018-10-05] MEDS: HEPARIN 100 UNIT/ML 5ML FLUSH FLUSH PRN (15:50)
--- NOTE | 2018-10-05 16:05 | Discharge Summary ---
Date of Service October 05, 2018 Admission HPI Per Admitting Provider Mr. Leigh is a 28 year old male with metastatic testicular cancer, type I diabetes mellitus, chronic kidney disease stage II, depression, chronic anxiety , avascular necrosis of the femur, seizures, herpes zoster who presented for planned chemotherapy. Pt. was admitted 09/17-09/18 for seizure; brain MRI showed 2 mm lesion likely related to brain metastasis. He started Decadron therapy along with brain radiation. He has not had any further seizure activity. Pt. presents for planned chemotherapy this morning. He complains of a "strange sensation" with urination that has been ongoing since discharge. Denies dysuria , hematuria, abdominal pain or suprapubic pain. He has chronic pain in his left leg; pt. has been taking MS Contin 30 mg every 8 hours and Oxycodone 10 mg every 4-6 hours. Pt. was taking extra pain medication at home due to increased acute pain; he ran out of current Oxycodone script due to extra doses. Pt. was also recently diagnosed with herpes zoster; he completed a course of Valtrex. His night nurse recommended taking Valtrex ppx during chemotherapy course. Denies fever/chills, URI symptoms, chest pain, SOB, LE edema. Denies nausea/ vomiting, diarrhea or constipation. Admission Exam Per Admitting Provider General: Chronically ill appearing young male HEENT: NC/AT; PERRLA with EOMI; [place] conjunctiva, MMM. Neck: Supple and nontender Cardiac: RRR Lungs: CTA bilaterally Abdomen: Bowel normoactive X 4; Nontender to palpation Extremities: Warm. No edema present Neuro: No focal weakness Skin: No rash Principal Diagnosis Metastatic Testicular Cancer Discharge Exam General: Chronically ill appearing young male; awake and alert to questions today. HEENT: NC/AT; PERRLA with EOMI; [place] conjunctiva, MMM. Neck: Supple and nontender Cardiac: RRR Lungs: CTA bilaterally Abdomen: Bowel normoactive X 4; Nontender to palpation Extremities: Warm. Edema in right foot, ecchymosis noted over 1st-3rd metatarsal area. Tender to palpation. Neuro: No focal weakness; alert, no agitation. Skin: Erythematous papules over right side of forehead extending up to right scalp; areas of previous varicella zoster rash present. Mediport site without erythema Discharge Data Allergies Allergy/AdvReac Type Severity Reaction Status Date / Time No Known Allergies Allergy Verified 10/07/18 11:54 Consultations 09/29/18 12:02 Consult Oncology Routine 10/03/18 05:07 Consult Orthopedic Surgery Routine Ordered Studies 10/03/18 15:10 MR brain wo/w con Stat 10/05/18 08:56 CT angio chest PE protocol Urgent Foot Xray 10/02/18 Hospital Course (1) Testicular cancer: He was admitted for Paclitaxel/Cisplatin/Ifosfamide chemotherapy. He tolerated course of chemotherapy well and completed infusions on 10/03/2018. Pt. received Neulasta injection on 10/04/18. He will follow up with Dr. Cruz for labs. (2) Hyponatremia: Pt. developed worsening hyponatremia. Baseline Na level is ~133-134; Na dropped to 126 on 10/04/18. Urine studies were consistent with an SIADH picture but renal function and tachycardia were consistent with dehydration. He also had positive orthostatic vital signs. IV fluids were started along with IV fluid bolus. He remained orthostatic on day of discharge with low sodium levels (126-127), however he reported being asymptomatic with this. Pt .was instructed to drink plenty of water after discharge. 1L bolus was administered prior to discharge. He denied dizziness following bolus. He was educated on standing up from a seated position with caution. He has an appointment for blood work at the cancer center tomorrow (3) Foot fracture, right: Pt. fell on 10/02/18 and fractured 1st-4th right metatarsal bones. He was likely abusing Xanax in the room that he brought in from home leading to lethargy/fall. Home opioids were continued as prescribed. A low walking boot was applied prior to discharge. He will need to follow up with ortho in 4 weeks. Pt .should be strict non weight bearing on the right leg. (4) Tachycardia: Pt had worsening tachycardia on 10/04-10/05. A CT angiogram was negative for pulmonary embolism Tachycardia was likely related to dehydration vs. adderall vs. other. He received IV fluids with minimal improvement. Will need to monitor as outpatient. (5) Acute encephalopathy: He developed acute lethargy on 10/02/18. Pt. did not receive brain radiation due to lethargy. He was also acting violent towards the staff. His fiancee found his home prescription for Xanax in his bag. He was likely taking medication as inpt because he had 5 pills left; he should have ~20 pills if he was taking medication as prescribed. Bottle was confiscated along with marijuana pipe. MRI of brain was negative. Ammonia level WNL. U/a negative for infection. Lethargy resolved. (6) Polysubstance abuse: As noted above. (7) Metastatic cancer to brain: Decadron was tapered to 4 mg PO BID. Brain MRI showed no change in metastasis during this admission. He did not receive final treatment of brain radiation on 10/03/18 due to lethargy. He will follow up on 10/06/18 for final treatment. Pt. was prescribed Decadron 4 mg PO BID x 1 week then 4 mg PO daily x 1 week. (8) Mucositis due to antineoplastic therapy: Grade I mucositis in setting of chemotherapy. Magic swizzle was ordered as needed along with anti-emetics for nausea. He was also noted to have thickened esophagus on the CT scan of the chest which could be related to esophagitis although he had no symptoms of this. This could be followed on subsequent imaging (9) Herpes zoster: He developed new erythematous papular lesions on his right forehead/scalp concerning for herpes zoster. Valtrex ppx dose was increased to treatment dose of 1 gm TID. Due to Valtrex prior auth, he will take Acyclovir 800 mg 5x/day for treatment following discharge. (10) Type I diabetes mellitus: Pharmacy was consulted for glycemic managment. He will decrease long acting to 15 units daily at discharge and continue SSI. (11) Acute kidney injury: Creatinine was elevated at admission, likely prerenal related to dehydration. Creatinine had improved but was trending up prior to discharge likely related to dehydration. He was instructed to drink lots of fluid at home. (12) CKD (chronic kidney disease), stage II: Renally dosed all medications. (13) Avascular necrosis of bone of left hip: S/p pinning with screws and plate. Had fall recently prior to last admission with worsening left hip pain--> xray from 09/18/18 shows loosening of screws. (14) Mood disorder: Continued Adderrall 15 mg BID. Xanax was temporarily held as pt. was likely abusing home script in the room. It was resumed prior to discharge. (15) Anemia due to antineoplastic chemotherapy: No transfusions were required. (16) Elevated LFTs: AST and ALT were mildly elevated. Will need to monitor as outpatient. (17) Tobacco use: Nicotine patch ordered. (18) Severe protein-calorie malnutrition: Encouraged carb consistent diet as tolerated. (19) DVT prophylaxis: SCDs and Lovenox. Pt. was discharged to home on 10/05/2018. Total Time Total Time Spent Total Time Spent (In Minutes): >30 minutes Total Time Includes: Examination of the Patient, Discharge Planning, Medication Reconciliation, Communication With Other Providers and Other Discharge Plan Discharge Items Patient Disposition: Home - Self-Care Reason For Visit: TESTICULAR CANCER Discharge Diagnosis: Metastatic Testicular Cancer Condition: Good Discharge Goals: Diagnostic testing, Improve disease control, Improve function, Increase independence and Prevent disease Activity: As commented below Exercise/Sports: None Weightbearing: Right non-weightbearing Non-emergency contact: Primary Care Provider and Oncologist Call non-emergency contact if: you have any medication questions, your symptoms worsen, your pain is not controlled and you have a fever Follow-up/Referrals: Kade Kelsey III, MD [Primary Care Provider] - Diet: Carb Count or DM1 Addtl Provider Instructions: 1. Metastatic Testicular Cancer * Please follow up for lab work to monitor blood counts. * Please follow up for radiation therapy as scheduled on Saturday. * Please follow up with Dr. Cruz as scheduled. * Compazine has been prescribed for nausea/vomiting. 2. Herpes Zoster * Please continue Valtrex 1,000 mg (two tablets) this evening followed by a dose at breakfast and lunch tomorrow. * Please start taking Acyclovir 800 mg five times daily tomorrow afternoon. * It is very important that you drink plenty of water at home to prevent renal failure in the setting of acyclovir. * Prescription for Acyclovir was sent to your pharmacy. 3. Dehydration * Your renal function is trending up, likely related to dehydration. * Please drink plenty of fluids at home! * Please use caution when standing -- you will need to stand up slowly due to drop in blood pressure. * You will need follow up lab work with oncology to monitor renal function. 4. Right Foot Fracture * Please continue to wear a walking boot at all times; you should be non-weight bearing on the right lower extremity. * Contiue home narcotics as prescribed -- MS Contin with Oxycodone as needed. * A prescription for Oxycodone 10 mg tablets every 6 hours as needed (total of 7 days) was provided at discharge. * Please schedule a follow up with orthopedics in 4 weeks. 5. Metastatic Brain Lesion * Please continue Decadron 4 mg twice daily for one week. * Taper Decadron to 4 mg daily for one week starting 10/11/2018. * You are scheduled for one final treatment of brain radiation on Saturday. 6. Type I Diabetes Mellitus * Please resume home insulin regimen. * Long acting insulin has been decreased to 15 units due to low blood sugar during this admission. 7. Please call your oncologist or go to the ER if you develop the following: * Chest pain or SOB. * Fever (>100.5 degrees) or chills. * Nausea/vomiting or diarrhea. Prescriptions: New valacyclovir 500 mg Tablet 1,000 mg PO TID Qty: 16 RF: 0 dexamethasone 4 mg Tablet 4 mg PO BID Qty: 21 RF: 0 oxycodone 10 mg tablet 10 mg PO Q6H Qty: 28 RF: 0 prochlorperazine maleate [Compazine] 10 mg tablet 10 mg PO Q6H PRN (Reason: nausea and vomiting) Qty: 14 RF: 0 acyclovir 800 mg tablet 800 mg PO .5x/day Qty: 25 RF: 0 Continue furosemide 40 mg tablet 40 mg PO DAILY PRN (Reason: Edema) RF: 0 morphine [MS Contin] 30 mg tablet extended release 30 mg PO Q8 RF: 0 celecoxib [Celebrex] 200 mg capsule 200 mg PO DAILY PRN (Reason: Pain) RF: 0 alprazolam [Xanax] 0.5 mg tablet 0.5 mg PO BID RF: 0 dextroamphetamine-amphetamine [Adderall] 15 mg tablet 15 mg PO BID RF: 0 insulin lispro [Admelog SoloStar U-100 Insulin] 100 unit/mL insulin pen See Label Instructions .ROUTE .COMPLEX RF: 0 multivitamin Tablet 1 tab PO DAILY RF: 0 Changed insulin degludec [Tresiba FlexTouch U-100] 100 unit/mL (3 mL) insulin pen 15 unit subcut QPM Qty: 0 RF: 0 Discontinued quetiapine [Seroquel] 25 mg Tablet PO DAILY RF: 0 valacyclovir [Valtrex] 1 gram tablet 500 mg PO BID RF: 0 oxycodone [Roxicodone] 5 mg tablet 10 mg PO Q6 PRN (Reason: Pain) RF: 0 dexamethasone 4 mg tablet 4 mg PO Q8H 14 Days Qty: 42 RF: 2 Stand-Alone Forms: [facility] Discharge Orders: Discharge Order (Routine); Ordered 10/05/18 Ordered By: Shelby Hatfield Admission Data Admit Date/Time: 09/29/18 10:22 Attending Provider: Adali Fowler Admit Provider: Adali Fowler Primary Care Provider: Kade Kelsey III Other Providers: Bairon Cruz ; Eduardo Vasques ; Home,Nursing Agency Service: Oncology Other Interventions: Discharge Summary Assessment (RN) Last Done: 10/05/18 15:39 Pending Studies at Discharge: No DC Date/Time DO NOT enter until pt leaves facility: 10/05/18 16:06 Supervising Physician Co-Signing Physician Notes PA Supervision Note: I personally saw and examined the patient. I verified all shelton points and agree with ASCHA Hatfield with the following exceptions and/or additions: Patient feeling better, he denies lightheadedness. He is very anxious to go home today. Vitals reviewed NAD, thin, pleasant, AAOx3 RRR no mgr CTAB no wcr Abd +BS soft, NT, ND Ext right foot and walking boot Skin : right forehead and scalp with pinkinish skin and scale with crusted over vesicles 28 yo male with met testicular CA here for planned inpatient chemotherapy. Doing fairly well status post chemotherapy, however did have a fall with likely syncope due to orthostatic hypotension which resulted in multiple metatarsal fractures, now in a walking boot. Has close follow-up with blood work and oncology this week. Follow-up with orthopedics as scheduled.
[2018-10-05] MEDS ORDERED: INSULIN GLARGINE 100 UNIT/ML VIAL SC SCH (16:30)
== END 2018-10-05 16:06 | disposition home or self-care (01) | DRG 846 ==
LOC: 4E 10:22 → SUATTDRO 10:22
DX: D72.829 Elevated white blood cell count, unspecified; Z80.9 Family history of malignant neoplasm, unspecified; M87.022 Idiopathic aseptic necrosis of left humerus; T38.0X5A Adverse effect of glucocorticoids and synthetic analogues, initial encounter; B02.9 Zoster without complications; N18.2 Chronic kidney disease, stage 2 (mild); E43 Unspecified severe protein-calorie malnutrition; G93.40 Encephalopathy, unspecified; Z82.49 Family history of ischemic heart disease and other diseases of the circulatory system; F41.8 Other specified anxiety disorders; Z51.11 Encounter for antineoplastic chemotherapy; W19.XXXA Unspecified fall, initial encounter; F17.210 Nicotine dependence, cigarettes, uncomplicated; Z79.4 Long term (current) use of insulin; C79.31 Secondary malignant neoplasm of brain; E10.22 Type 1 diabetes mellitus with diabetic chronic kidney disease; C62.90 Malignant neoplasm of unspecified testis, unspecified whether descended or undescended; F39 Unspecified mood [affective] disorder; D64.81 Anemia due to antineoplastic chemotherapy; F12.10 Cannabis abuse, uncomplicated; G89.4 Chronic pain syndrome; N17.9 Acute kidney failure, unspecified; K12.32 Oral mucositis (ulcerative) due to other drugs; R53.83 Other fatigue; S92.301A Fracture of unspecified metatarsal bone(s), right foot, initial encounter for closed fracture; R00.0 Tachycardia, unspecified; E87.1 Hypo-osmolality and hyponatremia

== ENCOUNTER 2018-10-20 11:12 | Inpatient (IN) ==
--- NOTE | 2018-10-20 11:38 | History & Physical Report ---
Date of Service October 20, 2018 Assessment & Plan (1) Testicular cancer: - Admit to med surg for routine planned Paclitaxel chemotherapy today - Follows with Dr. Fox as outpt - Premedicate with dexamethasone, benadryl and famotidine - Will ask onc regarding if needs for acylovir during this round of chemo with recent zoster outbreak which is now resolved for ppx. - Continue antiemetic therapy: zofran and compazine (2) Metastatic cancer to brain: - MRI of the brain reviewed from previous admissions - 2 mm lesion related to brain metastases - No seizure activity since last admission (3) Seizure: - Likely secondary to brain mets as above, no seizure like activity since last admission on 09/17-09/18. (4) Cancer related pain: - Using MS Contin 30 mg PO q8h and oxycodone 10 mg Q4H prn - monitor for polysubstance abuse with hx of marijuana use, xanax and chronic opiods. (5) Anemia due to antineoplastic chemotherapy: - Hgb of 7.6 - will check guiac and monitor H&H at 1800. - Blood transfusion consent to be obtained, check type and screen now in case needs for transfusion. (6) Elevated LFTs: - Check LFTs, noted to be elevated during last admission and will need to be followed as outpatient. (7) Herpes zoster: - Recent outbreak with completed course of acyclovir, lesions are healed over. 1 lesion over the lower back is causing intermittent neuropathic pain for the patient but stable. (8) Chronic pain syndrome: - Opiod use as above. (9) Tobacco use: - Cessation encouraged, nicotine patch 21 mg ordered for 1.5 ppd use. (10) Avascular necrosis of bone of left hip: - Stable. (11) CKD (chronic kidney disease), stage II: - Follow prp, monitor Cr. during admission (12) Type I diabetes mellitus: - Glucose elevated upon admission > 300. Will order lantus 8 U now, and ISS with accuchecks achs. - Glycemic pharmacy consulted for admission stay (13) Mood disorder: (14) Polysubstance abuse: (15) Depression: - Stable but exacerbated by poor social circumstances involving limited support and low economic housing status. (16) Severe protein-calorie malnutrition: - Will order boost supplementation while inpatient, pt has not been drinking supplement as an outpatient since last admit. Encourage throughout stay. (17) S/p nephrectomy: - Left nephrectomy (18) DVT prophylaxis: -lovenox subq History of Present Illness Primary Care Provider: Kade Kelsey MD This is a 28 yo M with metastatic testicular cancer to the brain, type I diabetes mellitus, CKD stage II, depression, chronic anxiety, avascular necrosis of the femur, seizures, herpes zoster recently treated with a course of Valtrex, chronic tobacco abuse with smoking 1.5 ppd, who presents for routine chemotherapy. Pt was recently admitted 09/17-09/18 for seizure; brain MRI showed 2 mm lesion likely related to brain metastasis. At that time he started Decadron therapy along with brain radiation and has not had any further seizure activity. He has chronic pain in his left leg; pt. has been taking MS Contin 30 mg every 8 hours and Oxycodone 10 mg every 4-6 hours. Pt follows with Dr. Fox as an outpatient. Pt notes he has an ulceration on his lower back which he has been putting gauze on but has nothing else at home. During his last admission he had wound care following and it seemed to heal better at that time, he thinks this may be opening up slightly again. This appears to be a residual spot from healing zoster outbreak. Pt does request a nicotine patch upon further questioning. His girlfriend is present at bedside and assists with the history. Allergies Allergy/AdvReac Type Severity Reaction Status Date / Time No Known Allergies Allergy Verified 10/07/18 11:54 Home Medications Home Medications Medication Instructions Recorded Confirmed Type alprazolam [Xanax] 0.5 mg PO BID 07/25/18 10/20/18 History dextroamphetamine-amphetamine 15 mg PO BID 07/25/18 10/20/18 History [Adderall] insulin lispro [Admelog SoloStar See Label Instructions .ROUTE 07/25/18 History U-100 Insulin] .COMPLEX multivitamin 1 tab PO DAILY 07/25/18 10/20/18 History morphine [MS Contin] 30 mg PO Q8 09/17/18 10/20/18 History prochlorperazine maleate 10 mg PO Q6H PRN #14 tab 10/04/18 10/20/18 Rx [Compazine] insulin degludec [Tresiba 21 unit SUBCUT QPM 02/18/19 02/18/19 History FlexTouch U-100] oxycodone 10 mg PO Q4H PRN 10/20/18 10/20/18 History Past Med/Surg History Medical History S/p nephrectomy Polysubstance abuse Elevated LFTs Herpes zoster Anemia due to antineoplastic chemotherapy Tobacco use Mood disorder Avascular necrosis of bone of left hip CKD (chronic kidney disease), stage II Type I diabetes mellitus Testicular cancer Cancer related pain Metastatic cancer to brain (Acute) Seizure (Acute) Depression Chronic pain syndrome Severe protein-calorie malnutrition Teratoma of pelvis Surgical History History of nephrectomy History of orchiectomy History of repair of left hip joint Family History Grandfather Heart attack Other Cancer Social History marital status: Single Current Living Situation: Significant Other Other Information That Helps Us Care for You: No Feels Safe at Home: Yes Safety Concerns: Feels Safe At This Time Smoking Status: Current every day smoker Cigarettes per Day: 20-30 Do You Dip or Chew Tobacco: Yes Second Hand Exposure: Yes Tobacco Cessation Education Requested by Patient: No Hx Alcohol Use: No Hx Substance Use: Yes substance use type: marijuana Last Used Substance: Unknown Beliefs That Will Affect Care: None Preferred Language: Urdu Communication Ability: Effective Cte Teacher Required: No Review of Systems Constitutional: no fever, no chills, no sweats and no fatigue Eyes: no diplopia and no worsening vision Ear, Nose, Mouth, Throat: no dizziness, no nasal discharge, no facial pain and no sore throat Respiratory: no cough, no dyspnea and no wheezing Cardiovascular: no chest pain, no palpitations, no lightheadedness and no syncope Gastrointestinal: no nausea, no vomiting and no constipation no diarrhea Genitourinary (Male): no dysuria, no urinary frequency, no urinary hesitancy and no hematuria Musculoskeletal: no back pain, no joint pain, no swelling and no muscle weakness Integumentary: no rash, no lesions and no wounds Neurologic: no gait abnormality, no falls, no numbness, no dizziness and no syncope Psychiatric: no depression and no anxiety Endocrine: no fatigue Physical Exam 2 Vital Signs (Past 24 Hours): Last Vital Signs Temp 36.8 C 10/20/18 11:32 Pulse 116 H 10/20/18 11:32 Resp 20 10/20/18 11:32 BP 103/71 10/20/18 11:32 Pulse Ox 98 10/20/18 11:32 Physical Exam: General: awake, alert, no apparent distress, + thin Head: Normocephalic, atraumatic ENT: PERRL, EOMI, no pharyngeal exudate, mucous membranes moist Chest: Clear to auscultation, on room air, no adventitious breath sounds Cardiac: + tachycardic with VZ=[id number], no murmur, no JVD, normal peripheral pulses , good capillary refill Abdominal: NABS x 4 quadrants, soft, nontender to palpation, no rebound, guarding or tenderness Extremities: + R foot boot in place, otherwise normal inspection, no peripheral edema or erythema, calfs nontender to palpation Psych: + Poor eye contact during exam, Normal mood and affect Neuro: AAO x 3, strength intact bilaterally and related 5/5, no motor deficits, speech is clear, no peripheral sensory deficits Supervising Physician Co-Signing Physician Notes Attending note: patient seen and examined with Mague Sanchez PA-C. I agree with her HPI, history, exam, ROS and A/P. I personally reviewed the labs and imaging findings. Patient doing well at time of my exam. No complaints. He signed consent for blood transfusion if needed. - Testicular cancer with brain mets: inpatient for Paclitaxel, plan for 5 days of treatment, oncology consulted start on Acyclovir due to recent herpes outbreak with chemo ordered Magic Mouthwash due to h/o getting sores with chemo - Anemia: likely a result of bone marrow suppression signed consent, would transfuse if < 7, follow daily for other details see the H&P
[2018-10-20] MEDS ORDERED: PROCHLORPERAZINE MALEATE 10 MG TAB PO PRN ×2 (11:40→11:54)
[2018-10-20] MEDS ORDERED: ONDANSETRON INJ 2 MG/ML 2 ML VIAL IV PRN (11:40)
[2018-10-20] MEDS ORDERED: ACETAMINOPHEN 325 MG TAB PO PRN (11:40)
[2018-10-20] MEDS ORDERED: DEXTROSE 50% 50 ML SYRINGE IV PRN (12:02)
[2018-10-20] MEDS ORDERED: GLUCOSE 10 TABS/TUBE PO PRN (12:02)
[2018-10-20] MEDS ORDERED: GLUCOSE 40% GEL 15 GM TUBE PO PRN (12:02)
[2018-10-20] MEDS ORDERED: GLUCAGON FOR INJ 1 MG VIAL SQ PRN (12:02)
[2018-10-20] MEDS ORDERED: LANTUS PER UNIT CHARGE SQ STA (12:10)
[2018-10-20] MEDS ORDERED: PHARMACY GLYCEMIC MGMT CONSULT PRN (12:19)
[2018-10-20 12:48] LABS: Hematocrit (blood only) 22.8 % (42-52); Hemoglobin 7.6 g/dL (14.0-18.0); Mean Corpuscular Hgb Conc 33.3 g/dL (32-36); Mean Corpuscular Volume 90.8 fL (80-100); Mean Platelet Volume 8.3 fL (7.4-10.4); Nucleated RBC # (auto) 0.04 K/uL (0-0); Nucleated RBC % (auto) 0.3 %; Platelet Count 219 K/uL (130-400); RDW Coefficient of Variation 25.2 % (11.5-14.5); Red Blood Count 2.51 M/uL (4.7-6.1); White Blood Count 13.81 K/uL (4.8-10.8)
[2018-10-20 13:12] LABS: Basophils # (auto) 0.04 K/uL (0-0.2); Basophils % (auto) 0.3 %; Immature Granulocytes # (auto) 0.55 K/uL (0.00-0.02); Lymphocytes # (auto) 0.97 K/uL (1.2-3.4); Monocytes # (auto) 0.79 K/uL (0.11-0.59); Monocytes % (auto) 5.7 %; Neutrophils # (auto) 11.46 K/uL (1.4-6.5); RBC Morphology Unremarkable
[2018-10-20 13:20] LABS: Alanine Aminotransferase 21 U/L (12-78); Alkaline Phosphatase 140 U/L (45-117); Aspartate Aminotransferase 16 U/L (15-37); BUN Creatinine Ratio 15.4 (10-20); Bilirubin Direct < 0.1 mg/dl (0-0.2); Bilirubin,Total 0.2 mg/dl (0.2-1); Blood Urea Nitrogen 17 mg/dl (7-18); Calcium 8.3 mg/dl (8.5-10.1); Carbon Dioxide 30 mmol/L (21-32); Chloride 96 mmol/L (98-107); Creatinine Clr Calc Pharmacy 82.9 ml/min; Est GFR (African American) 105.7; Est GFR (Non-African American) 91.2; Glucose 312 mg/dl (70-99); Magnesium 1.8 mg/dl (1.8-2.4); Phosphorus 3.6 mg/dl (2.5-4.9); Sodium 131 mmol/L (136-145); Total Protein 6.8 gm/dl (6.4-8.2)
[2018-10-20] MEDS ORDERED: DiphenhydrAMINE HCL 50 MG/ML VIAL IV PRN (13:20)
[2018-10-20] MEDS ORDERED: HYDROCORTISONE 100 MG *12cc Syringe IV PRN (13:21)
[2018-10-20] MEDS ORDERED: methylPREDNISolone 125 MG in SYRINGE 0 ML IV PRN (13:22)
[2018-10-20] MEDS ORDERED: EPINEPHrine INJ 1 MG/ML AMP IM PRN (13:22)
[2018-10-20] MEDS: INSULIN ASPART 100 UNITS/ML 3 ML PEN SC SCH ×3 (13:30→20:39)
[2018-10-20] MEDS: NICOTINE 21 MG/24 HR TDSY TD SCH (13:32)
[2018-10-20] MEDS ORDERED: INSULIN HUMAN REGULAR PER UNIT 5 UNITS in SYRINGE 4.95 ML IV ONE (14:15)
[2018-10-20] MEDS: MoRPHine SULFATE CR 15 MG TABCR PO SCH ×2 (14:22→21:40)
--- NOTE | 2018-10-20 14:26 | Pharmacy Report ---
Pharmacy Glycemic Short Note 2 - Date of Service October 20, 2018 - Glycemic Short BSG Results (Last 24 hours): 10/20/18 10/20/18 10/20/18 11:56 11:57 12:35 Glucose 312 H POC Glucose 371 H* 373 H* OUTPATIENT ANTIDIABETIC REGIMEN: * Tresiba 21 units SQ HS * Lispro with CF 50 for BSG > 150, carb ratio 10 * A1c 7.5% 08/26/18 ASSESSMENT: * Mr. Leigh is a 28 yr old T1DM male with a history of testicular cancer with brains mets admitted for chemotherapy * He is well known to the Glycemic service. During his September 2018 admission, he received 25-80 units per day depending on doses of steroids administered (15- 33 units of this was basal). He will be given a dose of dexamethasone 10 mg IV prior to chemo 10/20-10/24. * BSG of 373 mg/dL at time of admission. I have ordered a regular insulin 5 unit bolus in attempt to get BSGs under control prior to dexamethasone pre- treat. Lantus will be ordered per scale with a max of 30 units for BSG > 200 mg/ dL. * Will start with Novolog CF/CR 20/7. This may needed tightened to 15/6 based on previous usage. I will also add overnight checks until BSGs are better controlled. PLAN FOR INPATIENT GLYCEMIC CONTROL: * Basal insulin * Lantus per scale qHS * 17 units for BSG < 120 * 25 units for BSG 120 - 200 * 30 units for BSG > 200 * Bolus insulin * NovoLog per scale ACHS or Q6hrs while NPO * Goal Range: Low 110 mg/dL - High 140 mg/dL * Correction Factor: 20 mg/dL/unit * Nutritional / Prandial insulin per carb ratio of 1 unit per 7 grams CHO consumed * Overnight checks at 00 and 04
[2018-10-20] MEDS ORDERED: SODIUM CHLORIDE 0.9% IV SCH (15:30)
[2018-10-20] MEDS ORDERED: DiphenhydrAMINE HCL 50 MG/ML VIAL IV SCH (15:30)
[2018-10-20] MEDS ORDERED: FAMOTIDINE 20 MG in SYRINGE 3 ML IV SCH (15:30)
[2018-10-20] MEDS ORDERED: DEXAMETHASONE SOD PHOSPHATE IV SCH (15:30)
[2018-10-20] MEDS ORDERED: SOD CHL IV SCH (16:00)
[2018-10-20] MEDS ORDERED: POLYOLEFIN IV SCH (16:00)
[2018-10-20] MEDS ORDERED: PACLITAXEL IV SCH (16:00)
[2018-10-20] MEDS: OXYCODONE HCL IR 5 MG TAB (IMMEDIATE RELEASE) PO PRN ×2 (16:11→20:38)
[2018-10-20] MEDS ORDERED: INSULIN GLARGINE SOLOSTAR 100 UNITS/ML 3 ML PEN SC SCH ×2 (16:30→21:00)
--- NOTE | 2018-10-20 16:59 | Oncology Consultation ---
Date of Consultation October 20, 2018 Assessment & Plan (1) Testicular cancer: Mr. Leigh has made a remarkable clinical recovery since starting salvage chemotherapy. His counts are adequate and we can proceed with cycle 3 today, though I would probably give him a blood transfusion at some point during the stay. Please also add on an alpha fetoprotein to his labs today or tomorrow morning. His orders are in the chart and a consent is signed. I will check in with him during the week to make sure things are going along well. Present on Admission?: Yes History of Present Illness Reason for Consultation: Testicular cancer, for chemotherapy Attending Physician: Warren Deshpande DO History of Present Illness Vish is a 28 year old man who is well-known to me and to the hospitalist service. He has a history of recurrent, very aggressive testicular cancer. He has been undergoing salvage chemotherapy with TIP and is admitted today for his third cycle. He was very acutely ill with the first cycle and was admitted for about 2 weeks following treatment. His second cycle went much better, though he did fracture his foot during the stay. He has done well since discharge. His counts are good and he did not experience any major toxicities or other events. His energy is good and his appetite and weight have been stable. He is ready to begin his next cycle today. Allergies Allergy/AdvReac Type Severity Reaction Status Date / Time No Known Allergies Allergy Verified 10/07/18 11:54 Home Medications Home Medications Medication Instructions Recorded Confirmed Type alprazolam [Xanax] 0.5 mg PO BID 07/25/18 10/20/18 History dextroamphetamine-amphetamine 15 mg PO BID 07/25/18 10/20/18 History [Adderall] insulin lispro [Admelog SoloStar See Label Instructions .ROUTE 07/25/18 History U-100 Insulin] .COMPLEX multivitamin 1 tab PO DAILY 07/25/18 10/20/18 History morphine [MS Contin] 30 mg PO Q8 09/17/18 10/20/18 History prochlorperazine maleate 10 mg PO Q6H PRN #14 tab 10/04/18 10/20/18 Rx [Compazine] insulin degludec [Tresiba 21 unit SUBCUT QPM 10/20/18 10/20/18 History FlexTouch U-100] oxycodone 10 mg PO Q4H PRN 10/20/18 10/20/18 History Patient History Medical History S/p nephrectomy Polysubstance abuse Elevated LFTs Herpes zoster Anemia due to antineoplastic chemotherapy Tobacco use Mood disorder Avascular necrosis of bone of left hip CKD (chronic kidney disease), stage II Type I diabetes mellitus Testicular cancer Cancer related pain Metastatic cancer to brain (Acute) Seizure (Acute) Depression Chronic pain syndrome Severe protein-calorie malnutrition Teratoma of pelvis Surgical History History of nephrectomy History of orchiectomy History of repair of left hip joint Family History Grandfather Heart attack Other Cancer Social History marital status: Single Current Living Situation: Significant Other Other Information That Helps Us Care for You: No Feels Safe at Home: Yes Safety Concerns: Feels Safe At This Time Smoking Status: Current every day smoker Cigarettes per Day: 20-30 Do You Dip or Chew Tobacco: Yes Second Hand Exposure: Yes Tobacco Cessation Education Requested by Patient: No Hx Alcohol Use: No Hx Substance Use: Yes substance use type: marijuana Last Used Substance: Unknown Beliefs That Will Affect Care: None Preferred Language: Bulgarian Communication Ability: Effective Speech Lang Path Required: No Review of Systems Constitutional: + fatigue; no fever and no weakness Eyes: no worsening vision Ear, Nose, Mouth, Throat: no epistaxis and no bleeding gums Respiratory: no cough and no dyspnea Cardiovascular: no chest pain, no dyspnea on exertion and no edema Gastrointestinal: no abdominal pain, no nausea, no vomiting and no blood in stools Genitourinary (Male): no dysuria and no hematuria Musculoskeletal: no back pain and no joint pain Integumentary: no rash and no bleeding lesions Neurologic: no localized weakness and no headache(s) Hematologic / Lymphatic: no easy bleeding and no lymphadenopathy Physical Exam 2 Vital Signs (Past 24 Hours): Last Vital Signs Temp 36.2 C L 10/20/18 15:37 Pulse 120 H 10/20/18 15:37 Resp 16 10/20/18 15:37 BP 100/67 10/20/18 15:37 Pulse Ox 99 02/18/19 15:37 Constitutional: + ill appearing (chronically) and + combative; no acute distress Eyes: + anicteric sclerae and EOM intact bilaterally ENMT: external ear and nose normal, oropharynx normal Respiratory: normal respiratory effort, lungs clear to auscultation Cardiovascular: RRR, no murmur, no edema Gastrointestinal (Abdomen): normal bowel sounds, soft, nontender, no hepatosplenomegaly Musculoskeletal: no cyanosis or clubbing, extremities motor strength 5/5 Skin: no rashes, warm and dry Lymphatic: no cervical or axillary lymphadenopathy Results & Data Laboratory Results Short CBC 10/20/18 Range/Units 12:35 WBC 13.81 H (4.8-10.8) K/uL Hgb 7.6 L (14.0-18.0) g/dL Hct 22.8 L (42-52) % Plt Count 219 (130-400) K/uL BMP 10/20/18 12:35 Sodium 131 L Potassium 4.0 Chloride 96 L Carbon Dioxide 30 BUN 17 Creatinine 1.11 Glucose 312 H Calcium 8.3 L Liver Function 10/20/18 Range/Units 12:35 Total Bilirubin 0.2 (0.2-1) mg/dl Direct Bilirubin < 0.1 (0-0.2) mg/dl AST 16 (15-37) U/L ALT 21 (12-78) U/L Alkaline Phosphatase 140 H (45-117) U/L Albumin 3.0 L (3.4-5.0) gm/dl _ (1) Testicular cancer Descendance of testis: descended Laterality: left Qualified Code(s): C62.12 - Malignant neoplasm of descended left testis
[2018-10-20 19:04] LABS: Partial Thromboplastin Time 25.9 Seconds (21.0-31.0); Prothrombin Time 10.2 Seconds (9.0-12.0)
[2018-10-20] MEDS: ACYCLOVIR 400 MG TAB PO SCH (20:34)
[2018-10-20] MEDS: ALPRAZolam 0.5 MG TABLET PO SCH (20:38)
[2018-10-20] MEDS ORDERED: DEXTROAMPHETAMINE AMPHETAMINE 15 MG PO SCH (21:00)
[2018-10-20] MEDS ORDERED: INSULIN DEGLUDEC SQ SCH (21:00)
[2018-10-20] MEDS: ENOXAPARIN INJ 40 MG/0.4 ML SYR SQ SCH (21:40)
[2018-10-21] MEDS: INSULIN ASPART 100 UNITS/ML 3 ML PEN SC SCH ×6 (00:15→21:55)
[2018-10-21] MEDS ORDERED: HEPARIN 100 UNIT/ML 5ML FLUSH FLUSH PRN (01:09)
[2018-10-21] MEDS ORDERED: INSULIN HUMAN REGULAR PER UNIT 6 UNITS in SYRINGE 5.94 ML IV SCH (02:15)
[2018-10-21 07:17] LABS: Hematocrit (blood only) 20.7 % (42-52); Hemoglobin 6.9 g/dL (14.0-18.0); Mean Corpuscular Hgb Conc 33.3 g/dL (32-36); Mean Corpuscular Volume 90.4 fL (80-100); Mean Platelet Volume 8.6 fL (7.4-10.4); Nucleated RBC # (auto) 0.04 K/uL (0-0); Nucleated RBC % (auto) 0.4 %; Platelet Count 238 K/uL (130-400); RDW Coefficient of Variation 24.5 % (11.5-14.5); Red Blood Count 2.29 M/uL (4.7-6.1); White Blood Count 10.16 K/uL (4.8-10.8)
[2018-10-21 07:38] LABS: Albumin Globulin Ratio 0.7 (0.9-2); Albumin Level 2.7 gm/dl (3.4-5.0); BUN Creatinine Ratio 14.8 (10-20); Bilirubin,Total 0.5 mg/dl (0.2-1); Calcium 8.1 mg/dl (8.5-10.1); Creatinine Clr Calc Pharmacy 68.7 ml/min; Est GFR (African American) 84.1; Est GFR (Non-African American) 72.6; Globulin 3.8 gm/dl (2.5-4.0); Magnesium 1.9 mg/dl (1.8-2.4); Potassium 4.3 mmol/L (3.5-5.1); Total Protein 6.5 gm/dl (6.4-8.2)
[2018-10-21] MEDS ORDERED: INSULIN HUMAN REGULAR PER UNIT 6 UNITS in SYRINGE 5.94 ML IV ONE (08:15)
[2018-10-21] MEDS ORDERED: SODIUM CHLORIDE 0.9% 250 ML IV PRN (08:25)
[2018-10-21] MEDS: INSULIN GLARGINE SOLOSTAR 100 UNITS/ML 3 ML PEN SC SCH ×2 (08:37→21:53)
[2018-10-21] MEDS: NICOTINE 21 MG/24 HR TDSY TD SCH (08:47)
[2018-10-21] MEDS: MULTIVITAMIN TAB PO SCH (08:48)
[2018-10-21] MEDS: ACYCLOVIR 400 MG TAB PO SCH ×3 (08:48→21:51)
[2018-10-21] MEDS: MoRPHine SULFATE CR 15 MG TABCR PO SCH ×3 (08:53→21:57)
[2018-10-21] MEDS: ALPRAZolam 0.5 MG TABLET PO SCH ×2 (08:54→21:57)
[2018-10-21] MEDS: OXYCODONE HCL IR 5 MG TAB (IMMEDIATE RELEASE) PO PRN ×2 (12:10→18:18)
--- NOTE | 2018-10-21 14:31 | Pharmacy Report ---
Pharmacy Glycemic Short Note 2 - Date of Service October 21, 2018 - Glycemic Short BSG Results (Last 24 hours): 10/20/18 10/20/18 10/20/18 14:33 16:45 20:27 Glucose POC Glucose 211 H 86 357 H* 10/20/18 10/21/18 10/21/18 20:30 00:00 00:03 Glucose POC Glucose 363 H* 554 H* 529 H* 10/21/18 10/21/18 10/21/18 01:57 04:00 06:26 Glucose 386 H* POC Glucose 574 H* 487 H* 10/21/18 10/21/18 10/21/18 07:53 07:55 11:19 Glucose POC Glucose 445 H* 476 H* 276 H OUTPATIENT ANTIDIABETIC REGIMEN: * Tresiba 21 units SQ HS * Lispro with CF 50 for BSG > 150, carb ratio 10 * A1c 7.5% 08/26/18 ASSESSMENT: 10/21/18 * Mr. Leigh had extremely high BSGs overnight and it was reported that patient was consuming whatever he wanted without notifying the nurse for coverage and then adamantly refusing an insulin drip and frequent BSG checks. * He remains on daily Decadron as a chemo pre-treat while he is here receiving his chemo, so I anticipate insulin requirements to remain high * Will plan to provide ~30 units of basal insulin, which is comparable to previous dosing, and not be too aggressive with this since a large reason for his BSG elevation is due to his eating habits 10/20/18 * Mr. Leigh is a 28 yr old T1DM male with a history of testicular cancer with brains mets admitted for chemotherapy * He is well known to the Glycemic service. During his September 2018 admission, he received 25-80 units per day depending on doses of steroids administered (15- 33 units of this was basal). He will be given a dose of dexamethasone 10 mg IV prior to chemo 10/20-10/24. * BSG of 373 mg/dL at time of admission. I have ordered a regular insulin 5 unit bolus in attempt to get BSGs under control prior to dexamethasone pre- treat. Lantus will be ordered per scale with a max of 30 units for BSG > 200 mg/ dL. * Will start with Novolog CF/CR 21/03. This may needed tightened to 15/6 based on previous usage. I will also add overnight checks until BSGs are better controlled. PLAN FOR INPATIENT GLYCEMIC CONTROL: * Basal insulin - adjust scale * Lantus per scale qHS * 10 units for BSG < 110 * 15 units for BSG 110 - 200 * 20 units for BSG > 200 * Bolus insulin - no change but add an overnight check at 0200 * NovoLog per scale ACHS or Q6hrs while NPO * Goal Range: Low 110 mg/dL - High 140 mg/dL * Correction Factor: 15 mg/dL/unit * Nutritional / Prandial insulin per carb ratio of 1 unit per 6 grams CHO consumed * IV insulin bolus 6 units x 1 this AM for BSG of 487 mg/dL
[2018-10-21] MEDS: SODIUM CHLORIDE 0.9% 1000ML 1,000 ML IV SCH ×2 (15:45→20:39)
[2018-10-21] MEDS ORDERED: PALONOSETRON 0.25 MG in SYRINGE 0 ML IV SCH (16:00)
[2018-10-21] MEDS ORDERED: SODIUM CHL 0.9% IV SCH (16:20)
[2018-10-21] MEDS ORDERED: POLYOLEFIN IV SCH (16:20)
[2018-10-21] MEDS ORDERED: APREPITANT IV SCH (16:20)
[2018-10-21] MEDS: DEXAMETHASONE SOD PHOSPHATE IV SCH (16:21)
[2018-10-21] MEDS: SODIUM CHLORIDE 0.9% IV SCH ×5 (16:21→23:36)
--- NOTE | 2018-10-21 17:07 | Hospitalist Progress Note ---
Date of Service October 21, 2018 Assessment & Plan (1) Testicular cancer: planned Paclitaxel chemotherapy today - Follows with Dr. Blanca as outpt - Premedicate with dexamethasone, benadryl and famotidine recent zoster outbreak now resolved - (2) Metastatic cancer to brain: - MRI of the brain reviewed from previous admissions - 2 mm lesion related to brain metastases - No seizure activity since last admission (3) Seizure: - Likely secondary to brain mets as above, no seizure like activity since last admission on 09/17-09/18. (4) Cancer related pain: - Using MS Contin 30 mg PO q8h and oxycodone 10 mg Q4H prn -Continue to monitor for polysubstance abuse with hx of marijuana use, xanax and chronic opiods. (5) Anemia due to antineoplastic chemotherapy: -Patient's hemoglobin reduced again to 7.2 this is likely as above related to his chemotherapeutic regimen we will transfuse 2 units packed red blood cells - Blood transfusion consent to be obtained (6) Elevated LFTs: Is been in better condition will continue to follow (7) Herpes zoster: - Recent outbreak with completed course of acyclovir, lesions are healed over. 1 lesion over the lower back is causing intermittent neuropathic pain for the patient but stable. (8) Chronic pain syndrome: - Opiod use as above. (9) Tobacco use: - Cessation encouraged, nicotine patch 21 mg ordered for 1.5 ppd use. (10) Avascular necrosis of bone of left hip: - Stable. (11) CKD (chronic kidney disease), stage II: - Follow prp, monitor Cr. during admission any (12) Type I diabetes mellitus: - Glucose elevated upon admission > 300. Patient's glucose of difficult to control and insulin drip has been initiated (13) Mood disorder: (14) Polysubstance abuse: (15) Depression: - Stable but exacerbated by poor social circumstances involving limited support and low economic housing status. (16) Severe protein-calorie malnutrition: - Will order boost supplementation while inpatient, pt has not been drinking supplement as an outpatient since last admit. Encourage throughout stay. (17) S/p nephrectomy: - Left nephrectomy (18) DVT prophylaxis: -lovenox subq Subjective In good spirits. His edema has resolved since last I visited him. He does have an ice pack on his right foot is he sustained fractures as an outpatient of the first and fourth proximal metatarsals. He otherwise has no other complaints Review of Systems ROS: Patient appears thin and chronically ill No double vision blurry vision No problems with speech or swallowing No palpitations, chest pain or pressure No Wheezing or breathing issues No abdominal pain nausea vomiting diarrhea changes in appetite or weight No burning urine urine frequency Patient has focal right midfoot pain No skin rashes or oral lesions Bruising to the right foot No focused back pain or numbness or loss of strength No changes in memory or confusion Physical Exam 2 Vital Signs (Past 24 Hours): Last Vital Signs Temp 36.8 C 10/21/18 15:52 Pulse 105 H 10/21/18 15:52 Resp 15 10/21/18 15:52 BP 106/73 10/21/18 15:52 Pulse Ox 100 10/21/18 15:52 The patient appeared thin and chronically ill Vital signs as documented. Head exam is unremarkable. normocephalic, atraumatic Neck is without jugular venous distension, thyromegaly, or lymphademopathy Lungs are clear to auscultation and percussion. Cardiac exam reveals Rhythm is regular. First and second heart sounds normal. Abdominal exam reveals normal bowel sounds, no masses, no organomegaly Extremities are nonedematous right foot is tender to the midfoot with some fading ecchymosis visualized Neurologic exam is A&Ox3, no focal deficits, strength is equal bilateral Skin is warm Dry _ (1) Testicular cancer Descendance of testis: descended Laterality: left Qualified Code(s): C62.12 - Malignant neoplasm of descended left testis
[2018-10-21] MEDS: CISPLATIN IV SCH (17:30)
[2018-10-21] MEDS: MESNA IV SCH ×2 (18:39→23:36)
[2018-10-21] MEDS: IFOSFAMIDE IV SCH (19:17)
[2018-10-21] MEDS ORDERED: LORazepam 0.5 MG/1 ML VIAL IV STA (20:43)
[2018-10-21] MEDS: ENOXAPARIN INJ 40 MG/0.4 ML SYR SQ SCH ×2 (21:52→22:04)
[2018-10-22] MEDS: OXYCODONE HCL IR 5 MG TAB (IMMEDIATE RELEASE) PO PRN ×4 (00:29→20:06)
[2018-10-22] MEDS ORDERED: INSULIN ASPART 100 UNITS/ML 3 ML PEN SC ONE (02:00)
[2018-10-22] MEDS: MoRPHine SULFATE CR 15 MG TABCR PO SCH ×3 (05:53→22:06)
[2018-10-22 07:28] LABS: Hematocrit (blood only) 23.3 % (42-52); Hemoglobin 8.1 g/dL (14.0-18.0); Mean Corpuscular Hgb Conc 34.8 g/dL (32-36); Mean Corpuscular Volume 88.9 fL (80-100); Mean Platelet Volume 8.8 fL (7.4-10.4); Platelet Count 203 K/uL (130-400); RDW Coefficient of Variation 21.3 % (11.5-14.5); RDW Standard Deviation 68.7 fL (36.4-46.3); Red Blood Count 2.62 M/uL (4.7-6.1)
[2018-10-22 08:03] LABS: Albumin Globulin Ratio 0.8 (0.9-2); Albumin Level 2.6 gm/dl (3.4-5.0); BUN Creatinine Ratio 23.1 (10-20); Bilirubin,Total 0.4 mg/dl (0.2-1); Calcium 7.4 mg/dl (8.5-10.1); Creatinine Clr Calc Pharmacy 96.3 ml/min; Est GFR (African American) 121.3; Est GFR (Non-African American) 104.7; Globulin 3.3 gm/dl (2.5-4.0); Magnesium 1.8 mg/dl (1.8-2.4); Phosphorus 3.5 mg/dl (2.5-4.9); Potassium 4.3 mmol/L (3.5-5.1); Total Protein 5.9 gm/dl (6.4-8.2)
[2018-10-22] MEDS: MULTIVITAMIN TAB PO SCH (08:21)
[2018-10-22] MEDS: VALACYCLOVIR HCL 500 MG TABLET PO SCH (08:22)
[2018-10-22] MEDS: NICOTINE 21 MG/24 HR TDSY TD SCH (08:22)
[2018-10-22] MEDS: INSULIN GLARGINE SOLOSTAR 100 UNITS/ML 3 ML PEN SC SCH ×2 (09:12→22:07)
[2018-10-22] MEDS: INSULIN ASPART 100 UNITS/ML 3 ML PEN SC SCH ×4 (09:15→22:09)
--- NOTE | 2018-10-22 10:16 | Pharmacy Report ---
Pharmacy Glycemic Short Note 2 - Date of Service October 22, 2018 - Glycemic Short BSG Results (Last 24 hours): 10/21/18 10/21/18 10/21/18 11:19 15:23 16:37 Glucose POC Glucose 276 H 75 165 H 10/21/18 10/22/18 10/22/18 20:47 02:00 07:16 Glucose 139 H POC Glucose 223 H 158 H 10/22/18 07:51 Glucose POC Glucose 168 H OUTPATIENT ANTIDIABETIC REGIMEN: * Tresiba 21 units SQ HS * Lispro with CF 50 for BSG > 150, carb ratio 10 * A1c 7.5% 08/26/18 ASSESSMENT: 10/22/18 * Mr. Leigh received 129 units of insulin yesterday (40 of this being basal) * BSGs are MUCH improved with higher doses of insulin on board and less snacking * Fasting BSG = 139 mg/dL; he will receive 30 of basal today if BSGs remain in range * Postprandial BSGs ranged from 75-223 mg/dL later in the day yesterday * Patient will receive another dose of Decadron 10 mg as chemo pre-treat today. This will continue through Saturday. 10/21/18 * Mr. Leigh had extremely high BSGs overnight and it was reported that patient was consuming whatever he wanted without notifying the nurse for coverage and then adamantly refusing an insulin drip and frequent BSG checks. * He remains on daily Decadron as a chemo pre-treat while he is here receiving his chemo, so I anticipate insulin requirements to remain high * Will plan to provide ~30 units of basal insulin, which is comparable to previous dosing, and not be too aggressive with this since a large reason for his BSG elevation is due to his eating habits 10/20/18 * Mr. Leigh is a 28 yr old T1DM male with a history of testicular cancer with brains mets admitted for chemotherapy * He is well known to the Glycemic service. During his September 2018 admission, he received 25-80 units per day depending on doses of steroids administered (15- 33 units of this was basal). He will be given a dose of dexamethasone 10 mg IV prior to chemo 10/20-10/24. * BSG of 373 mg/dL at time of admission. I have ordered a regular insulin 5 unit bolus in attempt to get BSGs under control prior to dexamethasone pre- treat. Lantus will be ordered per scale with a max of 30 units for BSG > 200 mg/ dL. * Will start with Novolog CF/CR 21/03. This may needed tightened to 14/02 based on previous usage. I will also add overnight checks until BSGs are better controlled. PLAN FOR INPATIENT GLYCEMIC CONTROL: * Basal insulin - no change * Lantus per scale qHS * 10 units for BSG < 110 * 15 units for BSG 110 - 200 * 20 units for BSG > 200 * Bolus insulin - no change * NovoLog per scale ACHS or Q6hrs while NPO * Goal Range: Low 110 mg/dL - High 140 mg/dL * Correction Factor: 15 mg/dL/unit * Nutritional / Prandial insulin per carb ratio of 1 unit per 6 grams CHO consumed
[2018-10-22] MEDS: ALPRAZolam 0.5 MG TABLET PO SCH ×2 (12:48→22:06)
[2018-10-22] MEDS: SODIUM CHLORIDE 0.9% 1000ML 1,000 ML IV SCH ×2 (14:48→18:50)
[2018-10-22] MEDS: DEXAMETHASONE SOD PHOSPHATE IV SCH (15:57)
[2018-10-22] MEDS: SODIUM CHLORIDE 0.9% IV SCH ×5 (15:57→22:03)
[2018-10-22] MEDS: CISPLATIN IV SCH (16:36)
[2018-10-22] MEDS: MESNA IV SCH ×2 (17:51→22:03)
[2018-10-22] MEDS: IFOSFAMIDE IV SCH (18:10)
[2018-10-22] MEDS: ENOXAPARIN INJ 40 MG/0.4 ML SYR SQ SCH (22:06)
[2018-10-23] MEDS: OXYCODONE HCL IR 5 MG TAB (IMMEDIATE RELEASE) PO PRN ×4 (04:07→18:26)
[2018-10-23] MEDS: MoRPHine SULFATE CR 15 MG TABCR PO SCH ×3 (05:52→21:27)
[2018-10-23 06:24] LABS: Hematocrit (blood only) 23.9 % (42-52); Hemoglobin 8.2 g/dL (14.0-18.0); Mean Corpuscular Hgb Conc 34.3 g/dL (32-36); Mean Corpuscular Volume 89.2 fL (80-100); Mean Platelet Volume 9.1 fL (7.4-10.4); Platelet Count 220 K/uL (130-400); RDW Coefficient of Variation 21.7 % (11.5-14.5); Red Blood Count 2.68 M/uL (4.7-6.1); White Blood Count 6.76 K/uL (4.8-10.8)
[2018-10-23 07:05] LABS: Albumin Globulin Ratio 0.7 (0.9-2); Albumin Level 2.4 gm/dl (3.4-5.0); BUN Creatinine Ratio 24.4 (10-20); Bilirubin,Total 0.2 mg/dl (0.2-1); Calcium 7.7 mg/dl (8.5-10.1); Creatinine Clr Calc Pharmacy 104.7 ml/min; Est GFR (African American) 134.3; Est GFR (Non-African American) 115.9; Potassium 3.7 mmol/L (3.5-5.1); Total Protein 5.6 gm/dl (6.4-8.2)
[2018-10-23 07:06] LABS: Globulin 3.2 gm/dl (2.5-4.0)
[2018-10-23] MEDS: CARBOHYDRATES FOR HYPOGLYCEMIA PO PRN ×4 (07:11→11:58)
[2018-10-23] MEDS: INSULIN ASPART 100 UNITS/ML 3 ML PEN SC SCH ×5 (08:34→21:23)
[2018-10-23] MEDS: VALACYCLOVIR HCL 500 MG TABLET PO SCH (09:32)
[2018-10-23] MEDS: MULTIVITAMIN TAB PO SCH (09:32)
[2018-10-23] MEDS: NICOTINE 21 MG/24 HR TDSY TD SCH (09:33)
--- NOTE | 2018-10-23 09:33 | Pharmacy Report ---
Pharmacy Glycemic Short Note 2 - Date of Service October 23, 2018 - Glycemic Short BSG Results (Last 24 hours): 10/22/18 10/22/18 10/22/18 11:15 16:26 20:05 Glucose POC Glucose 113 H 194 H 202 H 10/23/18 10/23/18 10/23/18 05:40 07:08 07:28 Glucose 46 L* POC Glucose 57 L* 69 L* 10/23/18 07:45 Glucose POC Glucose 75 OUTPATIENT ANTIDIABETIC REGIMEN: * Tresiba 21 units SQ HS * Lispro with CF 50 for BSG > 150, carb ratio 10 * A1c 7.5% 08/26/18 ASSESSMENT: 10/23/18 * Mr. Leigh received 67 units of insulin yesterday (35 of this being basal) * He had a hypoglycemic episode this AM - 46 mg/dL on AM lab draw, 57 mg/dL on POC. Was adequately treated with resulting BSG > 70. * I have placed the Lantus on hold this AM, as the low is most likely related to too much basal. Will resume this evening at a 40% reduction d/t significant low this AM. This is also close to what patient ended up being on during previous admission when on Decadron 4 mg po BID. * Postprandial BSGs w/in or slightly above goal yesterday so no changes will be made to Novolog parameters 10/22/18 * Mr. Leigh received 129 units of insulin yesterday (40 of this being basal) * BSGs are MUCH improved with higher doses of insulin on board and less snacking * Fasting BSG = 139 mg/dL; he will receive 30 of basal today if BSGs remain in range * Postprandial BSGs ranged from 75-223 mg/dL later in the day yesterday * Patient will receive another dose of Decadron 10 mg as chemo pre-treat today. This will continue through Saturday. 10/21/18 * Mr. Leigh had extremely high BSGs overnight and it was reported that patient was consuming whatever he wanted without notifying the nurse for coverage and then adamantly refusing an insulin drip and frequent BSG checks. * He remains on daily Decadron as a chemo pre-treat while he is here receiving his chemo, so I anticipate insulin requirements to remain high * Will plan to provide ~30 units of basal insulin, which is comparable to previous dosing, and not be too aggressive with this since a large reason for his BSG elevation is due to his eating habits 10/20/18 * Mr. Leigh is a 28 yr old T1DM male with a history of testicular cancer with brains mets admitted for chemotherapy * He is well known to the Glycemic service. During his September 2018 admission, he received 25-80 units per day depending on doses of steroids administered (15- 33 units of this was basal). He will be given a dose of dexamethasone 10 mg IV prior to chemo 10/20-10/24. * BSG of 373 mg/dL at time of admission. I have ordered a regular insulin 5 unit bolus in attempt to get BSGs under control prior to dexamethasone pre- treat. Lantus will be ordered per scale with a max of 30 units for BSG > 200 mg/ dL. * Will start with Novolog CF/CR 20/7. This may needed tightened to 15/6 based on previous usage. I will also add overnight checks until BSGs are better controlled. PLAN FOR INPATIENT GLYCEMIC CONTROL: * Basal insulin - hold this AM and reduce by 40%; may eventually need to increase if reduction is too aggressive * Lantus 20 units once daily w/ dinner * Bolus insulin - no change * NovoLog per scale ACHS or Q6hrs while NPO * Goal Range: Low 110 mg/dL - High 140 mg/dL * Correction Factor: 15 mg/dL/unit * Nutritional / Prandial insulin per carb ratio of 1 unit per 6 grams CHO consumed
[2018-10-23] MEDS: DEXAMETHASONE CONC 3.75 MG, NYSTATIN 30 ML, DiphenhydrAMINE Syrup 300 MG, ORA-SWEET SYR... PO PRN ×2 (09:38→19:15)
[2018-10-23] MEDS: ALPRAZolam 0.5 MG TABLET PO SCH ×2 (09:38→21:25)
[2018-10-23] MEDS ORDERED: GLUCAGON FOR INJ 1 MG VIAL SQ ONE (11:59)
[2018-10-23] MEDS: SODIUM CHLORIDE 0.9% 1000ML 1,000 ML IV SCH ×3 (14:07→18:20)
[2018-10-23] MEDS: DEXAMETHASONE SOD PHOSPHATE IV SCH (15:13)
[2018-10-23] MEDS: SODIUM CHLORIDE 0.9% IV SCH ×5 (15:13→23:41)
[2018-10-23] MEDS: CISPLATIN IV SCH (15:34)
[2018-10-23] MEDS ORDERED: INSULIN GLARGINE SOLOSTAR 100 UNITS/ML 3 ML PEN SC SCH (16:30)
[2018-10-23] MEDS: MESNA IV SCH ×2 (16:51→23:41)
[2018-10-23] MEDS: IFOSFAMIDE IV SCH (17:14)
--- NOTE | 2018-10-23 19:23 | Hospitalist Progress Note ---
Date of Service October 23, 2018 Assessment & Plan (1) Testicular cancer: planned Paclitaxel chemotherapy- Follows with Dr. Blanca as outpt - Premedicate with dexamethasone, benadryl and famotidine recent zoster outbreak now resolved, will be on prophylactic Valtrex during chemotherapy - (2) Metastatic cancer to brain: - MRI of the brain reviewed from previous admissions - 2 mm lesion related to brain metastases - No seizure activity since last admission currently not on any antiepileptic medications (3) Seizure: - Likely secondary to brain mets as above, no seizure like activity since last admission on 09/17-09/18. (4) Cancer related pain: - Using MS Contin 30 mg PO q8h and oxycodone 10 mg Q4H prn hx of marijuana use, xanax and chronic opiods. (5) Anemia due to antineoplastic chemotherapy: -Patient's hemoglobin reduced again to 7.2 this is likely as above related to his chemotherapeutic regimen and appropriate augmentation of his hemoglobin after transfuse 2 units packed red blood cells (6) Elevated LFTs: Have improved (7) Herpes zoster: - Recent outbreak with completed course of acyclovir, lesions are healed over. 1 lesion over the lower back is causing intermittent neuropathic pain for the patient but stable. Remains on Valtrex 1 g a day (8) Chronic pain syndrome: - Opiod use as above. (9) Tobacco use: - Cessation encouraged, nicotine patch 21 mg ordered for 1.5 ppd use. (10) Avascular necrosis of bone of left hip: - Stable. (11) CKD (chronic kidney disease), stage II: - Follow prp, monitor Cr. during admission any (12) Type I diabetes mellitus: - Glucose elevated upon admission > 300. Patient's glucose of difficult to control his hypoglycemic but refusing glucagon he was eating cookies instead (13) Mood disorder: (14) Polysubstance abuse: (15) Depression: - Stable but exacerbated by poor social circumstances involving limited support and low economic housing status. (16) Severe protein-calorie malnutrition: - Will order boost supplementation while inpatient, pt has not been drinking supplement as an outpatient since last admit. Encourage throughout stay. (17) S/p nephrectomy: - Left nephrectomy (18) DVT prophylaxis: -lovenox subq Subjective Patient is feeling better he is having some hypoglycemic episodes today he was eating cookies and I got the room he refused glucagon. He still having some foot pain. Review of Systems ROS: Patient is thin and chronically ill No double vision blurry vision No problems with speech or swallowing No palpitations, chest pain or pressure No Wheezing or breathing issues No abdominal pain nausea vomiting diarrhea changes in appetite or weight No burning urine urine frequency or changes in color Right foot pain this is chronic No skin rashes or oral lesions No unusual bruising or bleeding No focused back pain or numbness or loss of strength No changes in memory or confusion Physical Exam 2 Vital Signs (Past 24 Hours): Last Vital Signs Temp 37.5 C 10/23/18 17:37 Pulse 103 H 10/23/18 17:37 Resp 18 10/23/18 17:37 BP 103/69 10/23/18 17:37 Pulse Ox 99 10/23/18 17:37 The patient appeared thin and chronically ill Vital signs as documented. Head exam is unremarkable. normocephalic, atraumatic Neck is without jugular venous distension, thyromegaly, or lymphademopathy Lungs are clear to auscultation and percussion. Cardiac exam reveals Rhythm is regular. First and second heart sounds normal. Abdominal exam reveals normal bowel sounds, no masses, no organomegaly Extremities are nonedematous and both pedal pulses are present he is tenderness to his right foot on the dorsal aspect Neurologic exam is A&Ox3, no focal deficits, strength is equal bilateral _ (1) Testicular cancer Descendance of testis: descended Laterality: left Qualified Code(s): C62.12 - Malignant neoplasm of descended left testis
[2018-10-23] MEDS: ENOXAPARIN INJ 40 MG/0.4 ML SYR SQ SCH (21:26)
[2018-10-24] MEDS: MoRPHine SULFATE CR 15 MG TABCR PO SCH ×3 (06:36→14:33)
--- NOTE | 2018-10-24 08:17 | Pharmacy Report ---
Pharmacy Glycemic Short Note 2 - Date of Service October 24, 2018 - Glycemic Short BSG Results (Last 24 hours): 10/23/18 10/23/18 10/23/18 11:26 11:28 11:55 POC Glucose 55 L* 54 L* 65 L* 10/23/18 10/23/18 10/23/18 12:16 14:12 16:33 POC Glucose 92 156 H 235 H 10/23/18 10/24/18 10/24/18 20:42 03:48 03:51 POC Glucose 229 H 42 L* 49 L* 10/24/18 10/24/18 10/24/18 04:10 04:43 07:48 POC Glucose 59 L* 122 H 91 OUTPATIENT ANTIDIABETIC REGIMEN: * Tresiba 21 units SQ HS * Lispro with CF 50 for BSG > 150, carb ratio 10 * A1c 7.5% 08/26/18 ASSESSMENT: 10/24/18 * Patient with hypoglycemia early this morning - patient's fiance reports goal range of 140-210mg/dl at home and that his blood sugars always drop significantly overnight, therefore will change goal range and decrease basal dose. May consider changing to AM dosing. * Patient also received 5 units of correctional insulin at bedtime, loosen CF to prevent hypoglycemia. * Remains on Dexamethasone 10mg IV pre-treat 10/23/18 * Mr. Leigh received 67 units of insulin yesterday (35 of this being basal) * He had a hypoglycemic episode this AM - 46 mg/dL on AM lab draw, 57 mg/dL on POC. Was adequately treated with resulting BSG > 70. * I have placed the Lantus on hold this AM, as the low is most likely related to too much basal. Will resume this evening at a 40% reduction d/t significant low this AM. This is also close to what patient ended up being on during previous admission when on Decadron 4 mg po BID. * Postprandial BSGs w/in or slightly above goal yesterday so no changes will be made to Novolog parameters 10/22/18 * Mr. Leigh received 129 units of insulin yesterday (40 of this being basal) * BSGs are MUCH improved with higher doses of insulin on board and less snacking * Fasting BSG = 139 mg/dL; he will receive 30 of basal today if BSGs remain in range * Postprandial BSGs ranged from 75-223 mg/dL later in the day yesterday * Patient will receive another dose of Decadron 10 mg as chemo pre-treat today. This will continue through Saturday. 10/21/18 * Mr. Leigh had extremely high BSGs overnight and it was reported that patient was consuming whatever he wanted without notifying the nurse for coverage and then adamantly refusing an insulin drip and frequent BSG checks. * He remains on daily Decadron as a chemo pre-treat while he is here receiving his chemo, so I anticipate insulin requirements to remain high * Will plan to provide ~30 units of basal insulin, which is comparable to previous dosing, and not be too aggressive with this since a large reason for his BSG elevation is due to his eating habits 10/20/18 * Mr. Leigh is a 28 yr old T1DM male with a history of testicular cancer with brains mets admitted for chemotherapy * He is well known to the Glycemic service. During his September 2018 admission, he received 25-80 units per day depending on doses of steroids administered (15- 33 units of this was basal). He will be given a dose of dexamethasone 10 mg IV prior to chemo 10/20-10/24. * BSG of 373 mg/dL at time of admission. I have ordered a regular insulin 5 unit bolus in attempt to get BSGs under control prior to dexamethasone pre- treat. Lantus will be ordered per scale with a max of 30 units for BSG > 200 mg/ dL. * Will start with Novolog CF/CR 20/7. This may needed tightened to 15/6 based on previous usage. I will also add overnight checks until BSGs are better controlled. PLAN FOR INPATIENT GLYCEMIC CONTROL: * Basal insulin - decrease * Lantus 15 units once daily w/ dinner * Bolus insulin * NovoLog per scale ACHS or Q6hrs while NPO * change: Goal Range: Low 140 mg/dL - High 1580 mg/dL * loosen: Correction Factor: 25 mg/dL/unit * Nutritional / Prandial insulin per carb ratio of 1 unit per 8 grams CHO consumed
[2018-10-24] MEDS: OXYCODONE HCL IR 5 MG TAB (IMMEDIATE RELEASE) PO PRN ×3 (08:39→22:19)
[2018-10-24] MEDS: MULTIVITAMIN TAB PO SCH (08:40)
[2018-10-24] MEDS: NICOTINE 21 MG/24 HR TDSY TD SCH (08:40)
[2018-10-24] MEDS: VALACYCLOVIR HCL 500 MG TABLET PO SCH (08:41)
[2018-10-24] MEDS: INSULIN ASPART 100 UNITS/ML 3 ML PEN SC SCH ×3 (09:30→17:42)
[2018-10-24] MEDS: ALPRAZolam 0.5 MG TABLET PO SCH (12:29)
--- NOTE | 2018-10-24 13:02 | Discharge Summary ---
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 Pt was recently admitted 09/17-09/18 for seizure; brain MRI showed 2 mm lesion likely related to brain metastasis. At that time he started Decadron therapy along with brain radiation and has not had any further seizure activity. He has chronic pain in his left leg; pt. has been taking MS Contin 30 mg every 8 hours and Oxycodone 10 mg every 4-6 hours. Pt follows with Dr. Fox as an outpatient. Pt notes he has an ulceration on his lower back which he has been putting gauze on but has nothing else at home. During his last admission he had wound care following and it seemed to heal better at that time, he thinks this may be opening up slightly again. This appears to be a residual spot from healing zoster outbreak. Pt does request a nicotine patch upon further questioning. His girlfriend is present at bedside and assists with the history. Principal Diagnosis testicular cancer with chemotherapy hypoglycemia Discharge Exam Eyes no conjunctival abnormality and no scleral abnormality Neck normal visual inspection and trachea midline Respiratory normal respiratory effort; no respiratory distress Auscultation: lungs clear to auscultation bilaterally Cardiovascular RRR, no murmur, no edema Gastrointestinal (Abdomen) normal bowel sounds, soft, nontender, no hepatosplenomegaly Discharge Data Allergies Allergy/AdvReac Type Severity Reaction Status Date / Time No Known Allergies Allergy Verified 10/07/18 11:54 Consultations 10/20/18 11:41 Consult Case Management - Discharge Planning Routine 10/20/18 11:42 Consult Oncology Routine Hospital Course (1) Testicular cancer: planned Paclitaxel chemotherapy- Follows with Dr. Fox as outpt recent zoster outbreak now resolved, will be on prophylactic Valtrex during chemotherapy - (2) Metastatic cancer to brain: - MRI of the brain reviewed from previous admissions - 2 mm lesion related to brain metastases - No seizure activity since last admission currently not on any antiepileptic medications (3) Seizure: - Likely secondary to brain mets as above, no seizure like activity since last admission on 09/17-1/17. (4) Cancer related pain: - Using MS Contin 30 mg PO q8h and oxycodone 10 mg Q4H prn hx of marijuana use, xanax and chronic opiods. (5) Anemia due to antineoplastic chemotherapy: -Patient's hemoglobin reduced again to 7.2 this is likely as above related to his chemotherapeutic regimen and appropriate augmentation of his hemoglobin after transfuse 2 units packed red blood cells (6) Elevated LFTs: Have improved (7) Herpes zoster: - Recent outbreak with completed course of acyclovir, lesions are healed over. 1 lesion over the lower back is causing intermittent neuropathic pain for the patient but stable. Remains on Valtrex 1 g a day (8) Chronic pain syndrome: - Opiod use as above. (9) Tobacco use: - Cessation encouraged, nicotine patch 21 mg ordered for 1.5 ppd use. (10) Avascular necrosis of bone of left hip: - Stable. (11) CKD (chronic kidney disease), stage II: - (12) Type I diabetes mellitus: - Glucose elevated upon admission > 300. Patient's glucose of difficult to control his hypoglycemic but significant other who chares for Brett thinks she (13) Mood disorder: (14) Polysubstance abuse: (15) Depression: - Stable but exacerbated by poor social circumstances involving limited support and low economic housing status. (16) Severe protein-calorie malnutrition: - Will order boost supplementation while inpatient, pt hasbeen drinking supplement as an outpatient since last admit. Encourage throughout stay. (17) S/p nephrectomy: - Left nephrectomy Total Time Total Time Spent Total Time Spent (In Minutes): greater than 30 minutes were required to prepare discharge Discharge Plan Discharge Items Patient Disposition: Home - Home Health Services Reason For Visit: TESTICULAR CA, SDAY TREATMENT Discharge Diagnosis: testicular cancer Discharge Goals: Decrease discomfort, Improve disease control and Therapeutic intervention Activity: Resume your previous activity Non-emergency contact: Primary Care Provider and Oncologist Call non-emergency contact if: you have any medication questions Follow-up/Referrals: Kade Kelsey III, MD [Primary Care Provider] - Diet: Carb Consistent or DM2 Addtl Provider Instructions: Please follow up with provider if your glucose control is an issue Prescriptions: New valacyclovir 1 gram tablet 1,000 mg PO DAILY Qty: 30 RF: 4 Continue morphine [MS Contin] 30 mg tablet extended release 30 mg PO Q8 RF: 0 alprazolam [Xanax] 0.5 mg tablet 0.5 mg PO BID RF: 0 dextroamphetamine-amphetamine [Adderall] 15 mg tablet 15 mg PO BID RF: 0 insulin lispro [Admelog SoloStar U-100 Insulin] 100 unit/mL insulin pen See Label Instructions .ROUTE .COMPLEX RF: 0 multivitamin Tablet 1 tab PO DAILY RF: 0 prochlorperazine maleate [Compazine] 10 mg tablet 10 mg PO Q6H PRN (Reason: nausea and vomiting) Qty: 14 RF: 0 oxycodone 10 mg tablet 10 mg PO Q4H PRN (Reason: Pain) RF: 0 insulin degludec [Tresiba FlexTouch U-100] 100 unit/mL (3 mL) insulin pen 21 unit subcut QPM RF: 0 Stand-Alone Forms: [facility] Discharge Orders: Discharge Order (Routine); Ordered 10/24/18 Ordered By: Jeramy Otoole Admission Data Admit Date/Time: 10/20/18 11:12 Attending Provider: Jeramy Otoole Admit Provider: Warren Deshpande Primary Care Provider: Kade Kelsey III Other Providers: Bairon Cruz ; Warren Deshpande Service: Oncology Other Pending Studies at Discharge: No (.)
[2018-10-24] MEDS: SODIUM CHLORIDE 0.9% 1000ML 1,000 ML IV SCH ×2 (14:33→18:51)
[2018-10-24] MEDS: SODIUM CHLORIDE 0.9% IV SCH ×5 (15:59→22:20)
[2018-10-24] MEDS: DEXAMETHASONE SOD PHOSPHATE IV SCH (15:59)
[2018-10-24] MEDS: CISPLATIN IV SCH (16:27)
[2018-10-24] MEDS ORDERED: INSULIN GLARGINE SOLOSTAR 100 UNITS/ML 3 ML PEN SC SCH (16:30)
[2018-10-24] MEDS: MESNA IV SCH ×2 (17:38→22:20)
[2018-10-24] MEDS: IFOSFAMIDE IV SCH (18:09)
[2018-10-24 18:49] VITALS: O2SAT 98
[2018-10-24 22:29] VITALS: BP 114/80; PULSE 113; TEMP 98.1
[2018-10-25] MEDS ORDERED: PEGFILGRASTIM 6 MG/0.6 ML SYR SQ SCH (21:00)
== END 2018-10-24 23:14 | disposition home or self-care (01) | DRG 846 ==
LOC: SUATTDRO 11:12 → 4E 11:12

== ENCOUNTER 2018-11-12 08:54 | Inpatient (IN) ==
[2018-11-12] MEDS ORDERED: GLUCOSE 40% GEL 15 GM TUBE PO PRN (09:30)
[2018-11-12] MEDS ORDERED: GLUCAGON FOR INJ 1 MG VIAL SQ PRN (09:30)
[2018-11-12] MEDS ORDERED: ACETAMINOPHEN 325 MG TAB PO PRN (09:30)
[2018-11-12] MEDS ORDERED: GLUCOSE 10 TABS/TUBE PO PRN (09:30)
--- NOTE | 2018-11-12 09:30 | History & Physical Report ---
Date of Service November 12, 2018 Assessment & Plan (1) Anemia due to antineoplastic chemotherapy: - Hgb came back up into the 8s upon last discharge on 10/24, checking am cbc now. - Blood transfusion consent to be obtained, check type and screen now in case needs for transfusion. (2) Testicular cancer: - Admit to med surg for routine planned Paclitaxel chemotherapy today - Follows with Dr. Beaulieu as outpt - Premedicate with dexamethasone, benadryl and famotidine - Continue antiemetic therapy: zofran and compazine alternating prn (3) Metastatic cancer to brain: - Metastatic cancer to brain- MRI of the brain reviewed from previous admissions - 2 mm lesion related to brain metastases - No seizure activity since last admission (4) Cancer related pain: - Using MS Contin 30 mg PO q8h and oxycodone 10 mg Q4H prn - monitor for polysubstance abuse with hx of marijuana use, xanax and chronic opiods. (5) Type I diabetes mellitus: - ISS with robe aleman. - Glycemic pharmacy consulted for admission stay (6) CKD (chronic kidney disease), stage II: - Follow prp, monitor Cr. during admission (7) Seizure: - Likely secondary to brain mets as above, no seizure like activity since 09/17-09/18. Pt is not on any antiepileptic medications. (8) Severe protein-calorie malnutrition: - Will order boost supplementation while inpatient, pt has not been drinking supplement as an outpatient since last admit. Encourage throughout stay. (9) Depression: (10) Chronic pain syndrome: - Opiod use as above. (11) Tobacco use: - Cessation encouraged, nicotine patch 21 mg ordered for 1.5 ppd use. (12) Mood disorder: - Stable but exacerbated by poor social circumstances involving limited support and low economic housing status. 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 Pt was recently admitted 10/20-10/24 most recent chemotherapy. not had any further seizure activity. He has chronic pain in his left leg and is s/p a R foot fracture with multiple metatarsal fractures involved. He reports wearing the brace but that there was an additional fracture seen on the last imaging he had done. Pt has been taking MS Contin 30 mg every 8 hours and Oxyco done 10 mg every 4-6 hours. Pt follows with Dr. Beaulieu as an outpatient. His girlfriend is present with him at bedside. Allergies Allergy/AdvReac Type Severity Reaction Status Date / Time No Known Allergies Allergy Verified 10/07/18 11:54 Home Medications Home Medications Medication Instructions Recorded Confirmed Type alprazolam [Xanax] 0.5 mg PO BID 07/25/18 10/20/18 History dextroamphetamine-amphetamine 15 mg PO BID 07/25/18 10/20/18 History [Adderall] insulin lispro [Admelog SoloStar See Rx Instructions .ROUTE .COMPLEX 07/25/18 10/20/18 History U-100 Insulin] multivitamin 1 tab PO DAILY 07/25/18 10/20/18 History morphine [MS Contin] 30 mg PO Q8 09/17/18 10/20/18 History prochlorperazine maleate 10 mg PO Q6H PRN #14 tab 10/04/18 10/20/18 Rx [Compazine] insulin degludec [Tresiba 21 unit SUBCUT QPM 10/20/18 10/20/18 History FlexTouch U-100] oxycodone 10 mg PO Q4H PRN 10/20/18 10/20/18 History valacyclovir 1,000 mg PO DAILY #30 tab 10/24/18 Rx Past Med/Surg History Social History Preferred Language: Iraqi Communication Ability: Effective Beliefs That Will Affect Care: None marital status: Single Current Living Situation: Parent and Significant Other Other Information That Helps Us Care for You: No Feels Safe at Home: Yes Smoking Status: Current every day smoker Hx Alcohol Use: No Hx Substance Use: Yes Review of Systems Constitutional: No fever, sweats or chills Eyes: No diplopia, no worsening or blurred vision ENT: normal hearing, no trouble swallowing Respiratory: No cough, sputum, dyspnea at rest or on exertion Cardiovascular: No chest pain, tightness or palpitations Abdomen: No pain, nausea, vomiting, diarrhea or constipation Musculoskeletal: + Right foot pain and chronic low back pain. No calf pain or swelling Neurologic: No weakness, numbness/tingling, or balance problems Psychiatric: No anxiety or depression Skin: No rash or itch Physical Exam Physical Exam: General: awake, alert, no apparent distress, + thin Head: Normocephalic, atraumatic, + alopecia ENT: PERRL, EOMI, no pharyngeal exudate, mucous membranes moist Chest: Clear to auscultation, on room air, no adventitious breath sounds Cardiac: Regular rate and rhythm, no murmur, no JVD, normal peripheral pulses, good capillary refill Abdominal: NABS x 4 quadrants, soft, nontender to palpation, no rebound, guarding or tenderness Extremities: + Right foot in boot, otherwise normal inspection, no peripheral edema or erythema, calfs nontender to palpation Psych: Normal mood and affect Neuro: AAO x 3, strength intact bilaterally and related 5/5, no motor deficits, speech is clear, no peripheral sensory deficits Code Status & VTE Plan Code Status Full code - discussed with pt and girlfriend at bedside. 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
[2018-11-12] MEDS ORDERED: PHARMACY GLYCEMIC MGMT CONSULT PRN (09:50)
[2018-11-12] MEDS ORDERED: HEPARIN 100 UNIT/ML 5ML FLUSH FLUSH PRN (10:09)
[2018-11-12] MEDS ORDERED: DiphenhydrAMINE HCL 50 MG/ML VIAL IV PRN (10:18)
[2018-11-12] MEDS ORDERED: HYDROCORTISONE 100 MG *12cc Syringe IV PRN (10:18)
[2018-11-12] MEDS ORDERED: methylPREDNISolone 125 MG in SYRINGE 0 ML IV PRN (10:20)
[2018-11-12] MEDS ORDERED: EPINEPHrine INJ 1 MG/ML AMP IM PRN (10:20)
[2018-11-12 10:53] LABS: INR 1.1 (0.9-1.1); Prothrombin Time 10.8 Seconds (9.0-12.0)
[2018-11-12 10:54] LABS: Alanine Aminotransferase 16 U/L (12-78); Aspartate Aminotransferase 10 U/L (15-37); BUN Creatinine Ratio 14.3 (10-20); Bilirubin Direct < 0.1 mg/dl (0-0.2); Blood Urea Nitrogen 18 mg/dl (7-18); Calcium 8.3 mg/dl (8.5-10.1); Carbon Dioxide 30 mmol/L (21-32); Chloride 98 mmol/L (98-107); Creatinine Clr Calc Pharmacy 74.7 ml/min; Est GFR (African American) 89.8; Est GFR (Non-African American) 77.5; Glucose 336 mg/dl (70-99); Potassium 4.7 mmol/L (3.5-5.1); Sodium 132 mmol/L (136-145)
[2018-11-12 10:57] LABS: Albumin Globulin Ratio 0.9 (0.9-2); Bilirubin,Total 0.2 mg/dl (0.2-1); Globulin 3.5 gm/dl (2.5-4.0); Total Protein 6.5 gm/dl (6.4-8.2)
[2018-11-12] MEDS: NICOTINE 21 MG/24 HR TDSY TD SCH (11:03)
[2018-11-12] MEDS: ACYCLOVIR SOD 450 MG in DEXTROSE 5% 250 ML IV SCH ×2 (11:03→23:31)
[2018-11-12 11:04] LABS: Alkaline Phosphatase 97 U/L (45-117); Beta-Hydroxybutyrate 1.04 mg/dl (0.2-2.81)
[2018-11-12] MEDS: OXYCODONE HCL IR 5 MG TAB (IMMEDIATE RELEASE) PO PRN ×2 (11:13→23:30)
[2018-11-12 11:15] LABS: Hematocrit (blood only) 18.7 % (42-52); Hemoglobin 6.5 g/dL (14.0-18.0); Mean Corpuscular Hgb Conc 34.8 g/dL (32-36); Mean Corpuscular Volume 92.6 fL (80-100); Nucleated RBC # (auto) 0.03 K/uL (0-0); Nucleated RBC % (auto) 0.8 %; Platelet Count 169 K/uL (130-400); RDW Coefficient of Variation 17.5 % (11.5-14.5); Red Blood Count 2.02 M/uL (4.7-6.1); White Blood Count 2.95 K/uL (4.8-10.8)
[2018-11-12 11:16] LABS: Anisocytosis Present; Basophils # (auto) 0.01 K/uL (0-0.2); Basophils % (auto) 0.3 %; Eosinophils # (auto) 0.01 K/uL (0-0.5); Eosinophils % (auto) 0.3 %; Immature Granulocytes # (auto) 0.11 K/uL (0.00-0.02); Immature Granulocytes % (auto) 3.7 %; Lymphocytes # (auto) 0.64 K/uL (1.2-3.4); Lymphocytes % (auto) 21.7 %; Monocytes # (auto) 0.68 K/uL (0.11-0.59); Monocytes % (auto) 23.1 %; Neutrophils % (auto) 50.9 %; Poikilocytosis Present
[2018-11-12] MEDS ORDERED: DiphenhydrAMINE HCL 50 MG/ML VIAL IV SCH (11:30)
[2018-11-12] MEDS ORDERED: SODIUM CHLORIDE 0.9% IV SCH (11:30)
[2018-11-12] MEDS ORDERED: DEXAMETHASONE SOD PHOSPHATE IV SCH (11:30)
[2018-11-12] MEDS ORDERED: FAMOTIDINE 20 MG in SYRINGE 3 ML IV SCH (11:30)
[2018-11-12] MEDS ORDERED: SODIUM CHLORIDE 0.9% 250 ML IV PRN (11:49)
[2018-11-12] MEDS: ENOXAPARIN INJ 30 MG/0.3 ML SYR SQ SCH (13:56)
[2018-11-12] MEDS: INSULIN ASPART 100 UNITS/ML 3 ML PEN SC SCH ×3 (13:59→21:10)
[2018-11-12] MEDS: AMPHETAMINE ASP/SULF/DEXTRAMPH 10 MG TAB PO SCH (14:06)
[2018-11-12] MEDS: MoRPHine SULFATE CR 15 MG TABCR PO SCH ×2 (14:12→21:05)
[2018-11-12] MEDS ORDERED: INSULIN GLARGINE SOLOSTAR 100 UNITS/ML 3 ML PEN SC ONE (17:00)
[2018-11-12] MEDS: POLYOLEFIN IV SCH (18:39)
[2018-11-12] MEDS: PACLITAXEL IV SCH (18:39)
[2018-11-12] MEDS: SOD CHL IV SCH (18:39)
[2018-11-12] MEDS ORDERED: INSULIN DEGLUDEC SQ SCH (21:00)
[2018-11-12] MEDS: ALPRAZolam 0.5 MG TABLET PO SCH (21:05)
[2018-11-13] MEDS: AMPHETAMINE ASP/SULF/DEXTRAMPH 10 MG TAB PO SCH ×2 (08:19→16:03)
[2018-11-13] MEDS: ALPRAZolam 0.5 MG TABLET PO SCH ×2 (08:19→21:25)
[2018-11-13] MEDS: MoRPHine SULFATE CR 15 MG TABCR PO SCH ×3 (08:19→21:25)
[2018-11-13] MEDS: MULTIVITAMIN TAB PO SCH (08:20)
[2018-11-13] MEDS: NICOTINE 21 MG/24 HR TDSY TD SCH (08:20)
[2018-11-13] MEDS: OXYCODONE HCL IR 5 MG TAB (IMMEDIATE RELEASE) PO PRN ×3 (08:23→23:31)
[2018-11-13] MEDS: INSULIN GLARGINE SOLOSTAR 100 UNITS/ML 3 ML PEN SC SCH (08:26)
[2018-11-13] MEDS: INSULIN ASPART 100 UNITS/ML 3 ML PEN SC SCH ×4 (08:27→21:18)
[2018-11-13 09:48] LABS: Hematocrit (blood only) 23.3 % (42-52); Hemoglobin 8.4 g/dL (14.0-18.0); Mean Corpuscular Hgb Conc 36.1 g/dL (32-36); Mean Corpuscular Volume 87.9 fL (80-100); Mean Platelet Volume 8.6 fL (7.4-10.4); Nucleated RBC # (auto) 0.04 K/uL (0-0); Platelet Count 182 K/uL (130-400); RDW Coefficient of Variation 17.6 % (11.5-14.5); RDW Standard Deviation 53.6 fL (36.4-46.3); Red Blood Count 2.65 M/uL (4.7-6.1); White Blood Count 2.25 K/uL (4.8-10.8)
--- NOTE | 2018-11-13 09:55 | Pharmacy Report ---
Glycemic Control Consultation - Date of Service November 13, 2018 - Scope Scope: Glycemic Pharmacist consulted by Mague Chu PA-C on 11/12/18 for glycemic control and to write orders per [facility] inpatient glycemic control protocol - Objective Weight: 57.1 kg Accuchecks BSG (last 24hrs): 11/12/18 11/12/18 11/12/18 10:21 11:38 11:39 Glucose 336 H POC Glucose 354 H* 353 H* 11/12/18 11/12/18 11/13/18 16:43 19:45 07:30 Glucose POC Glucose 218 H 208 H 195 H Laboratory Data (last 24hrs): 11/12/18 10:21 Potassium 4.7 Carbon Dioxide 30 Anion Gap 4.0 Creatinine 1.27 Est Cr Clr Drug Dosing 74.7 Beta-Hydroxybutyric Acd 1.04 - Recent Pertinent Medications Outpatient Anti-diabetic Regimen: * Tresiba 21 units HS * Lispro SS * A1c = 7.5 % 08/26/19 Risk Factors for Insulin Resistance: * Steroids: Dexamethasone 10mg IV Daily * IVF: IV Chemotherapy * Diet: Regular - Assessment & Plan Assessment & Plan: ASSESSMENT: * 28 year old male with testicular cancer with mets to brain, patient admitted to receive IV Chemotherapy. Type 1 diabetic, anemic, CKD stage II, depression, chronic anxiety, avascular necrosis of the femur, seizures, herpes zoster recently treated with a course of Valtrex, chronic tobacco abuse with smoking 1.5 ppd. * Patient was recently here for admission in Oct 2018 and managed by pharmacy glycemic service. Patient does like to keep his BSG 140-210mg/dl - I will keep his goal higher at 140-180mg/dl to accommodate patient's request * Patient admitted with hyperglycemia last night, blood sugar almost to goal this morning, will loosen CF and CR as BSGs trend down * Patient reports blood sugars usually fall overnight. I will put patient's basal in AM to try to prevent this, giving 20 units x1 this AM (patient had 30 units last night upon admission). * Patient refused breakfast this morning, but that is normal for him. PLAN FOR INPATIENT GLYCEMIC CONTROL: * Basal insulin * Lantus 20units SQ QAM * 10 units for BSG < 120mg/dl * Bolus insulin * NovoLog per scale ACHS or Q6hrs while NPO * Goal Range: Low 140 mg/dL - High 180 mg/dL * Correction Factor: 15 mg/dL/unit * Nutritional / Prandial insulin per carb ratio of 1 unit per 6 grams CHO consumed * Please note that the plan above was derived based on current level of insulin resistance and hospital stress. These recommendations are appropriate for inpatient admission only. Plan of care upon discharge will need to be reassessed to avoid potential outpatient hypo/hyperglycemia. Thank you.
[2018-11-13 09:57] LABS: BUN Creatinine Ratio 15.8 (10-20); Calcium 8.4 mg/dl (8.5-10.1); Creatinine Clr Calc Pharmacy 77.9 ml/min; Est GFR (African American) 100.2; Est GFR (Non-African American) 86.4; Magnesium 1.9 mg/dl (1.8-2.4); Potassium 3.8 mmol/L (3.5-5.1)
[2018-11-13] MEDS: ACYCLOVIR SOD 450 MG in DEXTROSE 5% 250 ML IV SCH (09:59)
[2018-11-13 10:00] LABS: Basophils # (auto) 0.01 K/uL (0-0.2); Basophils % (auto) 0.4 %; Immature Granulocytes # (auto) 0.19 K/uL (0.00-0.02); Immature Granulocytes % (auto) 8.4 %; Lymphocytes # (auto) 0.73 K/uL (1.2-3.4); Lymphocytes % (auto) 32.4 %; Monocytes # (auto) 0.29 K/uL (0.11-0.59); Monocytes % (auto) 12.9 %; Neutrophils # (auto) 1.03 K/uL (1.4-6.5); Neutrophils % (auto) 45.9 %; Tear Drop Cells Occasional
--- NOTE | 2018-11-13 10:33 | Consultation Report ---
DATE OF CONSULTATION: 11/13/2018 MEDICAL ONCOLOGY CONSULTATION REASON FOR CONSULTATION: A 28-year-old gentleman with metastatic testicular cancer here today to continue combination TIP. HISTORY OF PRESENT ILLNESS: Brett is a 28-year-old patient well known to [facility], currently under Dr. Bairon Cruz's care with the diagnosis of metastatic testicular cancer. He was originally diagnosed in June of 2017 when he had presented with a scrotal mass. 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 Tumor markers 6 weeks postoperative were persistently elevated and subsequent scans were done at that time revealing a mass of retroperitoneal deivn lesion encasing the left ureter and near complete encasement of the aorta. This lesion was estimated to be about 17 cm. The patient received 4 cycles of chemotherapy consisting of etoposide and cisplatin from 09/18/2017 through 12/09/2017. Posttreatment scans revealed a large residual retroperitoneal mass. He underwent a retroperitoneal lymphadenectomy at [facility] in late December of 2017 requiring left nephrectomy due to tumor encasement. Residual mass proved to be teratoma with no high risk features and no evidence of residual yolk sac tumor. The patient had been lost to follow up thereafter and finally returned to our office in early July 2018. Alpha fetoprotein at that time was greater than 6800. CT scan had revealed numerous abdominal and pelvic masses consistent with recurrent metastatic disease. He had begun a combination TIP in August and today will receive his fourth cycle of chemotherapy. He has had a marked response to treatment so far. His overall performance status is quite good. Brett presented with severe anemia requiring 2 units of packed RBCs. He is receiving day 1 of chemotherapy at present. He offers no complaints. PAST MEDICAL HISTORY: Brittle diabetes mellitus, anxiety and metastatic testicular cancer. PAST SURGICAL HISTORY: Includes retroperitoneal lymphadenectomy, nephrectomy and orchiectomy. HOME MEDICATIONS: Include Xanax 0.5 mg p.o. b.i.d., Adderall 50 mg p.o. b.i.d., insulin lispro as per instruction, multivitamin 1 p.o. daily, MS Contin 30 mg p.o. 8 hours, Compazine 10 mg q. 6 hours p.r.n., Tresiba 21 units subQ q.p.m., breakthrough oxycodone 10 mg p.o. 4 hours p.r.n., valacyclovir 1000 mg p.o. daily. ALLERGIES: No known drug allergies. SOCIAL HISTORY: He is single, present cigarette and marijuana smoker. FAMILY HISTORY: Noncontributory. REVIEW OF SYSTEMS: Denies fevers, chills or sweats. He is maintaining his weight and appetite. SKIN: No rashes or lesions. HEENT: No headaches, lightheadedness or dizziness. No acute visual or hearing deficits. No sinus symptoms, sore throat or dysphagia. LYMPH: No history of lymphoproliferative disease. CARDIAC: No history of coronary artery disease, no angina or palpitations. PULMONARY: No history of COPD. He is not short of breath, dyspneic or orthopneic. No cough or hemoptysis. GASTROINTESTINAL: No present abdominal pain. No nausea, vomiting, diarrhea or constipation, hematochezia or melena stools. GENITOURINARY: No hematuria, dysuria, urinary incontinence. MUSCULOSKELETAL: No muscle weakness. No arthralgias or myalgias. ENDOCRINE: Positive for uncontrolled diabetes mellitus, negative for thyroid disease. NEUROLOGIC: Negative for seizure, stroke, or migraine headache. HEMATOLOGIC: Positive for cytopenias, particularly leukopenia and anemia. The patient received 2 units of packed RBCs prior to initiation of chemotherapy. PHYSICAL EXAMINATION: GENERAL: Very pleasant 28-year-old gentleman, awake, alert and appropriate, in no acute distress. VITAL SIGNS: Temperature 36.6, pulse 70, respiratory rate 16, blood pressure 131/44. SKIN: Warm, dry, noncyanotic without petechiae, rash or ecchymosis. HEENT: Head: Atraumatic, normocephalic. Eyes: PERRLA, EOMI. Sclerae nonicteric. No conjunctival injection. Nares patent without rhinorrhea or discharge. Throat clear. Tongue midline. No buccal lesions or ulcerations. NECK: Supple. Trachea is midline. LYMPH: No cervical, supraclavicular, axillary palpable nodes. HEART: Regular rate and rhythm. No clicks, rubs, murmurs or gallops. LUNGS: Clear to auscultation bilaterally. ABDOMEN: Soft, nontender, nondistended, without palpable hepatosplenomegaly. EXTREMITIES: No calf tenderness or swelling. No clubbing, cyanosis or edema. NEUROLOGICALLY: He is awake, alert and oriented x3. Cranial nerves II-XII are intact. No gross motor or sensory deficits are noted. LABORATORY DATA: WBC count 2950, hemoglobin 6.5, platelet count 169,000. Sodium 132, potassium 4.7, chloride 98, carbon dioxide 30, creatinine 1.27, BUN 18, glucose 336. Albumin 3.0. IMPRESSION: 1. Metastatic testicular cancer. 2. Anemia, attributable to previous treatment. 3. Hypoalbuminemia. 4. Hyperglycemia/diabetes mellitus. PLAN: Brett was admitted to [facility] yesterday to resume combination TIP. This is cycle #4. The patient has had a dramatic response as demonstrated by less abdominal protrusion and resolution of his previously documented lower extremity edema. Brett has no complaints of pain at this time. He is enjoying a vigorous appetite. We will plan to administer chemotherapy without dose modification. The patient needs to achieve better control on his blood sugars. He should also work on increased protein intake to improve his albumin. Brett received 2 units of packed RBCs and will monitor his peripheral blood counts daily. We will continue to follow Brett on a daily basis until he is completed his regimen and subsequently discharged. Thank you very much for assisting us in the care of this very pleasant gentleman.
[2018-11-13] MEDS: ENOXAPARIN INJ 30 MG/0.3 ML SYR SQ SCH (12:50)
[2018-11-13] MEDS: SOD CHL IV SCH (16:07)
[2018-11-13] MEDS: PACLITAXEL IV SCH (16:07)
[2018-11-13] MEDS: POLYOLEFIN IV SCH (16:07)
--- NOTE | 2018-11-13 17:35 | Hospitalist Progress Note ---
Date of Service November 13, 2018 Assessment & Plan (1) Anemia due to antineoplastic chemotherapy: (2) Testicular cancer: (3) Metastatic cancer to brain: (4) Cancer related pain: (5) Type I diabetes mellitus: (6) CKD (chronic kidney disease), stage II: (7) Seizure: (8) Severe protein-calorie malnutrition: (9) Depression: (10) Chronic pain syndrome: (11) Tobacco use: (12) Mood disorder: (13) S/p nephrectomy: (14) Avascular necrosis of bone of left hip: (15) DVT prophylaxis: 28 yo M with metastatic testicular cancer to the brain, admitted to the hospital for chemo therapy His other past medical history include type I diabetes mellitus, CKD stage II, depression, chronic anxiety, avascular necrosis of the femur, seizures, herpes zoster recently treated with a course of Valtrex, chronic tobacco abuse with smoking 1.5 ppd, Acute on chronic anemia likely because of testis cancer, hemoglobin improved after transfusion Metastatic testicular cancer. Hypoalbuminemia. Hyperglycemia/diabetes mellitus. Neutropenic, neutropenic precaution Continue cycle #4, continue chemo, continue supportive care DVT prophylaxis covered Subjective Doing well, feeling better after blood transfusion, No nausea vomiting Denies abdominal pain Denies fever and chills Denies cough sputum shortness of breath Denies chest pain palpitation or lower extremity swelling Physical Exam Vital Signs (Past 24 Hours): Last Vital Signs Temp 36.6 C 11/13/18 15:19 Pulse 112 H 11/13/18 15:19 Resp 20 11/13/18 15:19 BP 115/73 11/13/18 15:19 Pulse Ox 99 11/13/18 15:19 Physical Exam: General: awake, alert, no apparent distress, + thin, looks better than yesterday Head: Normocephalic, atraumatic, + alopecia ENT: PERRL, EOMI, no pharyngeal exudate, mucous membranes moist Chest: Clear to auscultation, on room air, Cardiac: Regular rate and rhythm, no murmur, no JVD, Abdominal: NABS x 4 quadrants, soft, nontender to palpation, no rebound, guarding or tenderness Extremities: + Right foot in boot, otherwise normal inspectio Psych: Normal mood and affect Neuro: AAO x 3, strength intact bilaterally and related 5/5, no motor deficits, speech is clear, no peripheral sensory deficits Results & Data Laboratory Results Laboratory Results - last 24 hr 11/12/18 11/12/18 11/13/18 10:21 19:45 07:30 WBC RBC Hgb Hct MCV MCH MCHC RDW Std Deviation RDW Coeff of Zuleima Plt Count MPV Immature Gran % (Auto) Neut % (Auto) Lymph % (Auto) [place] % (Auto) Eos % (Auto) Baso % (Auto) Immature Gran # (Auto) Neut # (Auto) Lymph # (Auto) [place] # (Auto) Eos # (Auto) Baso # (Auto) Absolute Nucleated RBC Nucleated RBC % (auto) Tear Drop Cells Sodium Potassium Chloride Carbon Dioxide Anion Gap BUN Creatinine Est Cr Clr Drug Dosing Est GFR ( Amer) Est GFR (Non-Af Amer) BUN/Creatinine Ratio Glucose POC Glucose 208 H 195 H Calcium Magnesium Crossmatch See Detail 11/13/18 11/13/18 11/13/18 09:17 09:17 12:00 WBC 2.25 L RBC 2.65 L Hgb 8.4 L Hct 23.3 L MCV 87.9 D MCH 31.7 MCHC 36.1 H RDW Std Deviation 53.6 H RDW Coeff of Zuleima 17.6 H Plt Count 182 MPV 8.6 Immature Gran % (Auto) 8.4 Neut % (Auto) 45.9 Lymph % (Auto) 32.4 [place] % (Auto) 12.9 Eos % (Auto) 0.0 Baso % (Auto) 0.4 Immature Gran # (Auto) 0.19 H Neut # (Auto) 1.03 L Lymph # (Auto) 0.73 L [place] # (Auto) 0.29 Eos # (Auto) 0.00 Baso # (Auto) 0.01 Absolute Nucleated RBC 0.04 H Nucleated RBC % (auto) 2.0 Tear Drop Cells Occasional Sodium 135 L Potassium 3.8 D Chloride 104 Carbon Dioxide 25 Anion Gap 6.0 BUN 18 Creatinine 1.16 Est Cr Clr Drug Dosing 77.9 Est GFR ( Amer) 100.2 Est GFR (Non-Af Amer) 86.4 BUN/Creatinine Ratio 15.8 Glucose 133 H POC Glucose 76 Calcium 8.4 L Magnesium 1.9 Crossmatch 11/13/18 16:53 WBC RBC Hgb Hct MCV MCH MCHC RDW Std Deviation RDW Coeff of Zuleima Plt Count MPV Immature Gran % (Auto) Neut % (Auto) Lymph % (Auto) [place] % (Auto) Eos % (Auto) Baso % (Auto) Immature Gran # (Auto) Neut # (Auto) Lymph # (Auto) [place] # (Auto) Eos # (Auto) Baso # (Auto) Absolute Nucleated RBC Nucleated RBC % (auto) Tear Drop Cells Sodium Potassium Chloride Carbon Dioxide Anion Gap BUN Creatinine Est Cr Clr Drug Dosing Est GFR ( Amer) Est GFR (Non-Af Amer) BUN/Creatinine Ratio Glucose POC Glucose 86 Calcium Magnesium Crossmatch (1) Testicular cancer Descendance of testis: descended Laterality: left Qualified Code(s): C62.12 - Malignant neoplasm of descended left testis
[2018-11-13] MEDS: SODIUM CHLORIDE 0.9% 1000ML 1,000 ML IV SCH ×2 (17:44→22:17)
[2018-11-13] MEDS ORDERED: POLYOLEFIN IV SCH (19:00)
[2018-11-13] MEDS ORDERED: APREPITANT IV SCH (19:00)
[2018-11-13] MEDS ORDERED: PALONOSETRON 0.25 MG in SYRINGE 0 ML IV SCH (19:00)
[2018-11-13] MEDS ORDERED: SODIUM CHL 0.9% IV SCH (19:00)
[2018-11-13] MEDS: DEXAMETHASONE SOD PHOSPHATE IV SCH (19:31)
[2018-11-13] MEDS: SODIUM CHLORIDE 0.9% IV SCH ×4 (19:31→21:39)
[2018-11-13] MEDS: CISPLATIN IV SCH (20:11)
[2018-11-13] MEDS: MESNA IV SCH (21:16)
[2018-11-13] MEDS: IFOSFAMIDE IV SCH (21:39)
[2018-11-13] MEDS: ACYCLOVIR SOD 450 MG in DEXTROSE 5% 100 ML IV SCH (22:20)
[2018-11-14] MEDS: MESNA IV SCH ×2 (00:55→20:51)
[2018-11-14] MEDS: SODIUM CHLORIDE 0.9% IV SCH ×5 (00:55→21:49)
[2018-11-14] MEDS: MoRPHine SULFATE CR 15 MG TABCR PO SCH ×3 (06:29→21:57)
--- NOTE | 2018-11-14 08:20 | Pharmacy Report ---
Pharmacy Glycemic Short Note 2 - Date of Service November 14, 2018 - Glycemic Short BSG Results (Last 24 hours): 11/13/18 11/13/18 11/13/18 09:17 12:00 16:53 Glucose 133 H POC Glucose 76 86 11/13/18 11/14/18 20:15 07:41 Glucose POC Glucose 87 184 H OUTPATIENT ANTIDIABETIC REGIMEN: * Tresiba 21 units HS * Lispro SS * A1c = 7.5 % 08/26/19 ASSESSMENT: * See note from 11/13 for more background * Blood sugars at goal now, were below goal yesterday - I loosened CF and CR at that time * If blood sugars remain below goal all day today, will decrease Lantus dosing tomorrow * No further changes at this time PLAN FOR INPATIENT GLYCEMIC CONTROL: * Basal insulin * Lantus 20units SQ QAM * 10 units for BSG < 120mg/dl * Bolus insulin * NovoLog per scale ACHS or Q6hrs while NPO * Goal Range: Low 140 mg/dL - High 180 mg/dL (higher per patient request) * Correction Factor: 25 mg/dL/unit (loosened yesterday) * Nutritional / Prandial insulin per carb ratio of 1 unit per 8 grams CHO consumed (loosened yesterday) PLAN FOR DISCHARGE: * No changes needed, A1c acceptable.
--- NOTE | 2018-11-14 08:46 | Progress Note ---
DATE: 11/13/2018 MEDICAL ONCOLOGY PROGRESS NOTE DIAGNOSES: 1. Metastatic testicular cancer. 2. Anemia, attributable to chemotherapeutic effect. 3. Hypoalbuminemia. 4. Diabetes mellitus. SUBJECTIVE: Brett was seen and examined at bedside. As customary for him, quite somnolent this morning; however, did answer questions appropriately. He reports no pain. Nursing reports no overnight issues and today will represent day 2 of combination TIP. PHYSICAL EXAMINATION: VITAL SIGNS: Temperature 36.4, pulse 84, respiratory rate 18, blood pressure 98/51. SKIN: Without rash or lesion. HEENT: Oral mucosa without erythema or ulceration. NECK: Supple. Trachea midline. HEART: Regular rate and rhythm. LUNGS: Clear to auscultation bilaterally. ABDOMEN: Soft, nontender, nondistended. EXTREMITIES: No clubbing, cyanosis or edema. NEUROLOGIC: Grossly intact. LABORATORY DATA: WBC count 2250, hemoglobin 8.4, platelet count 182,000. Sodium 135, potassium 3.8, chloride 104, carbon dioxide 25, creatinine 1.16, BUN 18. IMPRESSION: 1. Day 2 combination TIP. 2. Metastatic testicular cancer. 3. Anemia, attributable to previous treatment. 4. Hypoalbuminemia. 5. Diabetes mellitus. Brett was admitted 2 days ago to receive his fourth cycle of TIP. Overall, quite pleased with his response compared to when he first started salvage chemotherapy. Nursing reports no overnight difficulties with Brett. We will continue to monitor his chemistries and peripheral blood counts daily. Replace blood via transfusion as necessary. Brett offers no complaints this morning and therefore adjustment on current dosing is not indicated. We will continue to follow him on a daily basis. I anticipate him to complete chemotherapy Saturday or Saturday morning. Thank you again for assisting us in the care of this very pleasant gentleman.
[2018-11-14] MEDS: INSULIN ASPART 100 UNITS/ML 3 ML PEN SC SCH ×4 (09:14→21:58)
[2018-11-14] MEDS: INSULIN GLARGINE SOLOSTAR 100 UNITS/ML 3 ML PEN SC SCH (09:15)
[2018-11-14] MEDS: NICOTINE 21 MG/24 HR TDSY TD SCH (09:16)
[2018-11-14] MEDS: MULTIVITAMIN TAB PO SCH (09:16)
[2018-11-14] MEDS: ALPRAZolam 0.5 MG TABLET PO SCH ×2 (09:21→21:57)
[2018-11-14] MEDS: AMPHETAMINE ASP/SULF/DEXTRAMPH 10 MG TAB PO SCH ×2 (09:21→14:29)
[2018-11-14] MEDS: ACYCLOVIR SOD 450 MG in DEXTROSE 5% 100 ML IV SCH ×2 (09:23→22:18)
[2018-11-14] MEDS ORDERED: INSULIN GLARGINE SOLOSTAR 100 UNITS/ML 3 ML PEN SC ONE (12:00)
[2018-11-14] MEDS: ENOXAPARIN INJ 30 MG/0.3 ML SYR SQ SCH (12:30)
[2018-11-14 13:14] LABS: Basophils # (auto) 0.01 K/uL (0-0.2); Basophils % (auto) 0.4 %; Hematocrit (blood only) 21.8 % (42-52); Hemoglobin 7.8 g/dL (14.0-18.0); Immature Granulocytes # (auto) 0.03 K/uL (0.00-0.02); Immature Granulocytes % (auto) 1.2 %; Lymphocytes # (auto) 0.43 K/uL (1.2-3.4); Lymphocytes % (auto) 16.9 %; Mean Platelet Volume 8.8 fL (7.4-10.4); Monocytes # (auto) 0.19 K/uL (0.11-0.59); Monocytes % (auto) 7.5 %; Neutrophils # (auto) 1.89 K/uL (1.4-6.5); Platelet Count 234 K/uL (130-400); RDW Coefficient of Variation 17.6 % (11.5-14.5); RDW Standard Deviation 54.6 fL (36.4-46.3); Red Blood Count 2.45 M/uL (4.7-6.1); White Blood Count 2.55 K/uL (4.8-10.8)
[2018-11-14 13:26] LABS: Mean Corpuscular Hgb Conc 35.8 g/dL (32-36)
[2018-11-14 13:40] LABS: BUN Creatinine Ratio 15.9 (10-20); Calcium 7.8 mg/dl (8.5-10.1); Creatinine Clr Calc Pharmacy 82.6 ml/min; Est GFR (African American) 95.2; Est GFR (Non-African American) 82.1; Potassium 4.4 mmol/L (3.5-5.1)
[2018-11-14 13:44] LABS: Schistocytes Occasional; Spherocytes 1+; Tear Drop Cells 1+
[2018-11-14] MEDS: OXYCODONE HCL IR 5 MG TAB (IMMEDIATE RELEASE) PO PRN ×2 (16:27→23:38)
[2018-11-14] MEDS ORDERED: Nursing to Pharmacy Communication ONE (16:28)
[2018-11-14] MEDS: SODIUM CHLORIDE 0.9% 1000ML 1,000 ML IV SCH ×2 (17:38→22:25)
--- NOTE | 2018-11-14 18:01 | Hospitalist Progress Note ---
Date of Service November 14, 2018 Assessment & Plan (1) Anemia due to antineoplastic chemotherapy: (2) Testicular cancer: (3) Metastatic cancer to brain: (4) Cancer related pain: (5) Type I diabetes mellitus: (6) CKD (chronic kidney disease), stage II: (7) Seizure: (8) Severe protein-calorie malnutrition: (9) Depression: (10) Chronic pain syndrome: (11) Tobacco use: (12) Mood disorder: (13) S/p nephrectomy: (14) Avascular necrosis of bone of left hip: (15) DVT prophylaxis: 28 yo M with metastatic testicular cancer to the brain, admitted to the hospital for chemo therapy past medical history include type I diabetes mellitus, CKD stage II, depression, chronic anxiety, avascular necrosis of the femur, seizures, herpes zoster recently treated with a course of Valtrex, chronic tobacco abuse with smoking 1.5 ppd, Acute on chronic anemia likely because of testis cancer, hemoglobin improved after transfusion Metastatic testicular cancer. Hypoalbuminemia. Hyperglycemia/diabetes mellitus. Neutropenic, neutropenic precaution Continue cycle #4, continue chemo, continue supportive care DVT prophylaxis covered Subjective Doing the same , feeling better after blood transfusion, No nausea vomiting Denies abdominal pain Denies fever and chills Denies cough sputum shortness of breath Denies chest pain palpitation or lower extremity swelling Physical Exam Vital Signs (Past 24 Hours): Last Vital Signs Temp 36.8 C 11/14/18 15:24 Pulse 98 H 11/14/18 15:24 Resp 16 11/14/18 15:24 BP 99/59 L 11/14/18 15:24 Pulse Ox 99 11/14/18 15:24 Physical Exam: General: awake, alert, no apparent distress, + thin, pleasant Smiling, Head: Normocephalic, atraumatic, + alopecia ENT: PERRL, EOMI, no pharyngeal exudate, mucous membranes moist Chest: Clear to auscultation, on room air, Cardiac: Regular rate and rhythm, no murmur, no JVD, Abdominal: NABS x 4 quadrants, soft, nontender to palpation, no rebound, guarding or tenderness Extremities: + Right foot in boot, otherwise normal inspectio Psych: Normal mood and affect Neuro: AAO x 3, strength intact bilaterally and related 5/5, no motor deficits, speech is clear, no peripheral sensory deficits Results & Data Laboratory Results Laboratory Results - last 24 hr 11/13/18 11/14/18 11/14/18 20:15 07:41 11:25 WBC RBC Hgb Hct MCV MCH MCHC RDW Std Deviation RDW Coeff of Zuleima Plt Count MPV Immature Gran % (Auto) Neut % (Auto) Lymph % (Auto) [place] % (Auto) Eos % (Auto) Baso % (Auto) Immature Gran # (Auto) Neut # (Auto) Lymph # (Auto) [place] # (Auto) Eos # (Auto) Baso # (Auto) Hyposegmented Neuts Spherocytes Tear Drop Cells Schistocytes Sodium Potassium Chloride Carbon Dioxide Anion Gap BUN Creatinine Est Cr Clr Drug Dosing Est GFR ( Amer) Est GFR (Non-Af Amer) BUN/Creatinine Ratio Glucose POC Glucose 87 184 H 285 H Calcium 11/14/18 11/14/18 11/14/18 13:04 13:04 16:39 WBC 2.55 L RBC 2.45 L Hgb 7.8 L Hct 21.8 L MCV 89.0 MCH 31.8 MCHC 35.8 RDW Std Deviation 54.6 H RDW Coeff of Zuleima 17.6 H Plt Count 234 MPV 8.8 Immature Gran % (Auto) 1.2 Neut % (Auto) 74.0 Lymph % (Auto) 16.9 [place] % (Auto) 7.5 Eos % (Auto) 0.0 Baso % (Auto) 0.4 Immature Gran # (Auto) 0.03 H Neut # (Auto) 1.89 Lymph # (Auto) 0.43 L [place] # (Auto) 0.19 Eos # (Auto) 0.00 Baso # (Auto) 0.01 Hyposegmented Neuts 1+ Spherocytes 1+ Tear Drop Cells 1+ Schistocytes Occasional Sodium 136 Potassium 4.4 D Chloride 105 Carbon Dioxide 26 Anion Gap 5.0 BUN 19 H Creatinine 1.21 Est Cr Clr Drug Dosing 82.6 Est GFR ( Amer) 95.2 Est GFR (Non-Af Amer) 82.1 BUN/Creatinine Ratio 15.9 Glucose 227 H POC Glucose 97 Calcium 7.8 L (1) Testicular cancer Descendance of testis: descended Laterality: left Qualified Code(s): C62.12 - Malignant neoplasm of descended left testis
[2018-11-14] MEDS: DEXAMETHASONE SOD PHOSPHATE IV SCH (19:12)
[2018-11-14] MEDS: CISPLATIN IV SCH (19:16)
[2018-11-14] MEDS: CARBOHYDRATES FOR HYPOGLYCEMIA PO PRN ×2 (19:24→19:39)
[2018-11-14] MEDS: IFOSFAMIDE IV SCH (21:49)
[2018-11-15] MEDS: MESNA IV SCH ×2 (01:07→20:45)
[2018-11-15] MEDS: SODIUM CHLORIDE 0.9% IV SCH ×5 (01:07→21:09)
[2018-11-15] MEDS: INSULIN GLARGINE SOLOSTAR 100 UNITS/ML 3 ML PEN SC SCH (08:46)
[2018-11-15] MEDS: INSULIN ASPART 100 UNITS/ML 3 ML PEN SC SCH ×4 (08:48→20:59)
[2018-11-15] MEDS: NICOTINE 21 MG/24 HR TDSY TD SCH (08:50)
--- NOTE | 2018-11-15 10:38 | Hospitalist Progress Note ---
Date of Service November 15, 2018 Assessment & Plan (1) Anemia due to antineoplastic chemotherapy: (2) Testicular cancer: (3) Metastatic cancer to brain: (4) Cancer related pain: (5) Type I diabetes mellitus: (6) CKD (chronic kidney disease), stage II: (7) Seizure: (8) Severe protein-calorie malnutrition: (9) Depression: (10) Chronic pain syndrome: (11) Tobacco use: (12) Mood disorder: (13) S/p nephrectomy: (14) Avascular necrosis of bone of left hip: (15) DVT prophylaxis: 28 yo M with metastatic testicular cancer to the brain, admitted to the hospital for chemo therapy past medical history include type I diabetes mellitus, CKD stage II, depression, chronic anxiety, avascular necrosis of the femur, seizures, herpes zoster recently treated with a course of Valtrex, chronic tobacco abuse with smoking 1.5 ppd, Acute on chronic anemia likely because of testis cancer, hemoglobin improved after transfusion however today hemoglobin dropped from 8.4-7.8, possible from chemo, will continue follow-up Metastatic testicular cancer, continue on chemo Hypoalbuminemia. Encourage oral intake Hyperglycemia/diabetes mellitus. Stable continue current care Neutropenic, resolved Continue cycle #4, continue chemo, continue supportive care DVT prophylaxis covered Subjective Doing ok, no n/v, d/c, Denies abdominal pain Denies fever and chills Denies cough sputum shortness of breath Denies chest pain palpitation or lower extremity swelling Physical Exam Vital Signs (Past 24 Hours): Last Vital Signs Temp 36.5 C 11/15/18 07:17 Pulse 85 11/15/18 07:17 Resp 18 11/15/18 07:17 BP 91/49 L 11/15/18 07:17 Pulse Ox 98 11/15/18 07:17 Physical Exam: General: awake, alert, no apparent distress, + thin, pleasant, less aple Smiling, Head: Normocephalic, atraumatic, + alopecia ENT: PERRL, EOMI, no pharyngeal exudate, mucous membranes moist Chest: Clear to auscultation, on room air, Cardiac: Regular rate and rhythm, no murmur, no JVD, Abdominal: NABS x 4 quadrants, soft, nontender to palpation, no rebound, guarding or tenderness Extremities: + Right foot in boot, otherwise normal inspectio Psych: Normal mood and affect Neuro: AAO x 3, strength intact bilaterally and related 5/5, no motor deficits, speech is clear, no peripheral sensory deficits Results & Data Laboratory Results Laboratory Results - last 24 hr 11/14/18 11/14/18 11/14/18 11:25 13:04 13:04 WBC 2.55 L RBC 2.45 L Hgb 7.8 L Hct 21.8 L MCV 89.0 MCH 31.8 MCHC 35.8 RDW Std Deviation 54.6 H RDW Coeff of Zuleima 17.6 H Plt Count 234 MPV 8.8 Immature Gran % (Auto) 1.2 Neut % (Auto) 74.0 Lymph % (Auto) 16.9 [place] % (Auto) 7.5 Eos % (Auto) 0.0 Baso % (Auto) 0.4 Immature Gran # (Auto) 0.03 H Neut # (Auto) 1.89 Lymph # (Auto) 0.43 L [place] # (Auto) 0.19 Eos # (Auto) 0.00 Baso # (Auto) 0.01 Hyposegmented Neuts 1+ Spherocytes 1+ Tear Drop Cells 1+ Schistocytes Occasional Sodium 136 Potassium 4.4 D Chloride 105 Carbon Dioxide 26 Anion Gap 5.0 BUN 19 H Creatinine 1.21 Est Cr Clr Drug Dosing 82.6 Est GFR ( Amer) 95.2 Est GFR (Non-Af Amer) 82.1 BUN/Creatinine Ratio 15.9 Glucose 227 H POC Glucose 285 H Calcium 7.8 L 11/14/18 11/14/18 11/14/18 16:39 19:21 19:36 WBC RBC Hgb Hct MCV MCH MCHC RDW Std Deviation RDW Coeff of Zuleima Plt Count MPV Immature Gran % (Auto) Neut % (Auto) Lymph % (Auto) [place] % (Auto) Eos % (Auto) Baso % (Auto) Immature Gran # (Auto) Neut # (Auto) Lymph # (Auto) [place] # (Auto) Eos # (Auto) Baso # (Auto) Hyposegmented Neuts Spherocytes Tear Drop Cells Schistocytes Sodium Potassium Chloride Carbon Dioxide Anion Gap BUN Creatinine Est Cr Clr Drug Dosing Est GFR ( Amer) Est GFR (Non-Af Amer) BUN/Creatinine Ratio Glucose POC Glucose 97 50 L* 68 L* Calcium 11/14/18 11/14/18 11/15/18 19:50 20:22 06:32 WBC RBC Hgb Hct MCV MCH MCHC RDW Std Deviation RDW Coeff of Zuleima Plt Count MPV Immature Gran % (Auto) Neut % (Auto) Lymph % (Auto) [place] % (Auto) Eos % (Auto) Baso % (Auto) Immature Gran # (Auto) Neut # (Auto) Lymph # (Auto) [place] # (Auto) Eos # (Auto) Baso # (Auto) Hyposegmented Neuts Spherocytes Tear Drop Cells Schistocytes Sodium Potassium Chloride Carbon Dioxide Anion Gap BUN Creatinine Est Cr Clr Drug Dosing Est GFR ( Amer) Est GFR (Non-Af Amer) BUN/Creatinine Ratio Glucose POC Glucose 121 H 140 H 189 H Calcium 11/15/18 07:43 WBC RBC Hgb Hct MCV MCH MCHC RDW Std Deviation RDW Coeff of Zuleima Plt Count MPV Immature Gran % (Auto) Neut % (Auto) Lymph % (Auto) [place] % (Auto) Eos % (Auto) Baso % (Auto) Immature Gran # (Auto) Neut # (Auto) Lymph # (Auto) [place] # (Auto) Eos # (Auto) Baso # (Auto) Hyposegmented Neuts Spherocytes Tear Drop Cells Schistocytes Sodium Potassium Chloride Carbon Dioxide Anion Gap BUN Creatinine Est Cr Clr Drug Dosing Est GFR ( Amer) Est GFR (Non-Af Amer) BUN/Creatinine Ratio Glucose POC Glucose 189 H Calcium (1) Testicular cancer Descendance of testis: descended Laterality: left Qualified Code(s): C62.12 - Malignant neoplasm of descended left testis
[2018-11-15] MEDS: ACYCLOVIR SOD 450 MG in DEXTROSE 5% 100 ML IV SCH ×2 (10:49→22:58)
[2018-11-15] MEDS: MoRPHine SULFATE CR 15 MG TABCR PO SCH ×3 (11:14→22:04)
[2018-11-15] MEDS: AMPHETAMINE ASP/SULF/DEXTRAMPH 10 MG TAB PO SCH ×2 (11:14→14:00)
[2018-11-15] MEDS: ENOXAPARIN INJ 30 MG/0.3 ML SYR SQ SCH (12:54)
[2018-11-15] MEDS: MULTIVITAMIN TAB PO SCH (12:56)
--- NOTE | 2018-11-15 13:20 | Progress Note ---
DATE: 11/15/2018 MEDICAL ONCOLOGY PROGRESS NOTE DIAGNOSES: 1. Metastatic testicular cancer. 2. Anemia, attributable to chemotherapeutic effect. 3. Hypoalbuminemia. 4. Diabetes mellitus. SUBJECTIVE: Brett was seen and examined at bedside this morning as usual. He was sleeping, but did answer questions appropriately. He continues combination TIP without difficulty. Review of his most recent peripheral blood counts and serum chemistries are acceptable to continue chemotherapy without dose modification. Nursing reports no overnight difficulties. PHYSICAL EXAMINATION: GENERAL: He is in no acute distress. VITAL SIGNS: Current temperature 37, pulse 91, respiratory rate 18, blood pressure 107/70. SKIN: Warm, dry, noncyanotic without petechia, rash or ecchymosis. HEENT: Oral mucosa without erythema or ulceration. NECK: Supple. Trachea midline. HEART: Regular rate and rhythm. LUNGS: Clear to auscultation bilaterally. ABDOMEN: Soft, nontender, nondistended. EXTREMITIES: No clubbing, cyanosis or edema. NEUROLOGIC: Grossly intact. LABORATORY DATA: WBC count 2550, hemoglobin 7.8, platelet count 234,000. Sodium 136, potassium 4.4, chloride 105, carbon dioxide 26, BUN 19, creatinine 1.21. IMPRESSION: 1. Day 3 combination TIP. 2. Metastatic testicular cancer. 3. Anemia, attributable to chemotherapeutic effect. 4. Hypoalbuminemia. 5. Diabetes mellitus. PLAN: Brett now is on day #3, his fourth cycle of combination TIP. Overall, his response has been tremendous. He continues to have no difficulties and again review of his labs demonstrate nothing unexpected. His WBCs are down and hemoglobin is heading downward as well. Towards the end of his admission, perhaps transfusion of another couple units of blood before going home as I anticipate further myelosuppression in the coming days. He had no complaints of pain, he seems to be happy with his care thus far. Again, nursing reports no difficulties with Brett in the last 24 hours. Thank you again for assisting us in the care of this very pleasant gentleman. Dr. Cruz will be taking over service on Saturday.
[2018-11-15] MEDS: ALPRAZolam 0.5 MG TABLET PO SCH ×2 (14:00→22:04)
[2018-11-15] MEDS: OXYCODONE HCL IR 5 MG TAB (IMMEDIATE RELEASE) PO PRN (16:14)
[2018-11-15] MEDS: DEXTROSE 50% 50 ML SYRINGE IV PRN ×2 (17:42→20:58)
[2018-11-15] MEDS: SODIUM CHLORIDE 0.9% 1000ML 1,000 ML IV SCH ×2 (17:51→21:56)
[2018-11-15] MEDS ORDERED: Nursing to Pharmacy Communication ONE (18:05)
[2018-11-15] MEDS: DEXAMETHASONE SOD PHOSPHATE IV SCH (18:36)
[2018-11-15] MEDS: CISPLATIN IV SCH (19:35)
[2018-11-15 19:45] LABS: Amphetamines+Metham, Urine Neg (Neg); Barbiturates, Urine Neg (Neg); Benzodiazepine, Urine Neg (Neg); Cocaine, Urine Neg (Neg); MDMA (Ecstacy), Urine Neg (Neg); Methadone, Urine Neg (Neg); Opiate, Urine Pos (Neg); Phencyclidine, Urine Neg (Neg)
[2018-11-15] MEDS: CARBOHYDRATES FOR HYPOGLYCEMIA PO PRN (20:32)
[2018-11-15] MEDS: IFOSFAMIDE IV SCH (21:09)
[2018-11-16] MEDS: MESNA IV SCH ×2 (01:10→20:46)
[2018-11-16] MEDS: SODIUM CHLORIDE 0.9% IV SCH ×5 (01:10→21:02)
[2018-11-16] MEDS: D5W AND 1/2NSS 1,000 ML IV SCH ×2 (01:16→16:24)
[2018-11-16 06:42] LABS: Hematocrit (blood only) 23.1 % (42-52); Hemoglobin 7.9 g/dL (14.0-18.0); Immature Granulocytes # (auto) 0.02 K/uL (0.00-0.02); Immature Granulocytes % (auto) 0.6 %; Lymphocytes # (auto) 0.33 K/uL (1.2-3.4); Lymphocytes % (auto) 9.3 %; Mean Corpuscular Hgb Conc 34.2 g/dL (32-36); Mean Corpuscular Volume 90.2 fL (80-100); Monocytes # (auto) 0.05 K/uL (0.11-0.59); Monocytes % (auto) 1.4 %; Neutrophils # (auto) 3.14 K/uL (1.4-6.5); Neutrophils % (auto) 88.7 %; Platelet Count 332 K/uL (130-400); RDW Coefficient of Variation 17.3 % (11.5-14.5); RDW Standard Deviation 53.9 fL (36.4-46.3); Red Blood Count 2.56 M/uL (4.7-6.1); White Blood Count 3.54 K/uL (4.8-10.8)
[2018-11-16 07:19] LABS: BUN Creatinine Ratio 15.2 (10-20); Calcium 7.6 mg/dl (8.5-10.1); Creatinine Clr Calc Pharmacy 78.7 ml/min; Est GFR (African American) 89.8; Est GFR (Non-African American) 77.5; Magnesium 1.6 mg/dl (1.8-2.4); Potassium 4.3 mmol/L (3.5-5.1)
[2018-11-16 07:25] LABS: RBC Morphology Unremarkable
[2018-11-16] MEDS: AMPHETAMINE ASP/SULF/DEXTRAMPH 10 MG TAB PO SCH ×2 (08:12→16:21)
[2018-11-16] MEDS: MoRPHine SULFATE CR 15 MG TABCR PO SCH ×3 (08:13→21:59)
[2018-11-16] MEDS: MULTIVITAMIN TAB PO SCH (08:14)
[2018-11-16] MEDS ORDERED: INSULIN GLARGINE SOLOSTAR 100 UNITS/ML 3 ML PEN SC STA (08:14)
[2018-11-16] MEDS: ALPRAZolam 0.5 MG TABLET PO SCH ×2 (08:14→20:56)
[2018-11-16] MEDS: NICOTINE 21 MG/24 HR TDSY TD SCH (08:14)
[2018-11-16] MEDS: ACYCLOVIR SOD 450 MG in DEXTROSE 5% 100 ML IV SCH ×2 (08:14→23:15)
[2018-11-16] MEDS: ONDANSETRON INJ 2 MG/ML 2 ML VIAL IV PRN ×2 (08:24→20:43)
[2018-11-16] MEDS: INSULIN ASPART 100 UNITS/ML 3 ML PEN SC SCH ×4 (08:29→20:55)
[2018-11-16] MEDS ORDERED: MAGNESIUM SULFATE / D5W 1 GM/100 ML BAG IV ONE (08:30)
[2018-11-16] MEDS ORDERED: Nursing to Pharmacy Communication ONE (08:38)
[2018-11-16] MEDS ORDERED: DEXAMETHASONE SOD PHOSPHATE 4 MG in SYRINGE 0 ML IV ONE (09:30)
[2018-11-16] MEDS ORDERED: ONDANSETRON HCL 8 MG in DEXTROSE 5% 50 ML IV ONE (09:30)
--- NOTE | 2018-11-16 10:55 | Hospitalist Progress Note ---
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, admitted to the hospital for chemo therapy past medical history include type I diabetes mellitus, CKD stage II, depression, chronic anxiety, avascular necrosis of the femur, seizures, herpes zoster recently treated with a course of Valtrex, chronic tobacco abuse with smoking 1.5 ppd, Hypoglycemic episodes yesterday, this morning has vomiting, poor oral intake Continue D5 1/2 NSS, However will decrease the rate to 40, Encourage oral intake Nausea vomiting, possible from side effect of chemo,We will continue supportive care Hypomagnesemia replaced Acute on chronic anemia likely because of testis cancer, hemoglobin improved after transfusion, Today's hemoglobin is 7.9 from yesterday 7.8, which is stable, Metastatic testicular cancer, continue on chemo Hypoalbuminemia. Encourage oral intake Hyperglycemia/diabetes mellitus. Stable continue current care Neutropenic, resolved Continue cycle #5, continue chemo, continue supportive care DVT prophylaxis covered Plan to discharge home tomorrow because the chemo will be late today, and patient has n/v Subjective Patient was hypoglycemic yesterday,Required D50, And then start D5 half NSS IV infusion This morning he was nausea vomiting, Denies abdominal pain Denies fever and chills Denies cough sputum shortness of breath Denies chest pain palpitation or lower extremity swelling Physical Exam Vital Signs (Past 24 Hours): Last Vital Signs Temp 36.9 C 11/16/18 08:00 Pulse 84 11/16/18 08:00 Resp 20 11/16/18 08:00 BP 109/71 11/16/18 08:00 Pulse Ox 98 11/16/18 08:00 Physical Exam: General: awake, alert, no apparent distress, + thin, Tired , looking sick Head: Normocephalic, atraumatic, + alopecia ENT: PERRL, EOMI, no pharyngeal exudate, mucous membranes moist Chest: Clear to auscultation, on room air, Cardiac: Regular rate and rhythm, no murmur, no JVD, Abdominal: soft, nontender to palpation, no rebound, guarding or tenderness Extremities: + Right foot in boot, otherwise normal inspectio Psych: Normal mood and affect Neuro: AAO x 3, strength intact bilaterally and related 5/5, no motor deficits, Results & Data Laboratory Results Laboratory Results - last 24 hr 11/15/18 11/15/18 11/15/18 12:13 16:39 17:37 WBC RBC Hgb Hct MCV MCH MCHC RDW Std Deviation RDW Coeff of Zuleima Plt Count MPV Immature Gran % (Auto) Neut % (Auto) Lymph % (Auto) Granite % (Auto) Eos % (Auto) Baso % (Auto) Immature Gran # (Auto) Neut # (Auto) Lymph # (Auto) Granite # (Auto) Eos # (Auto) Baso # (Auto) RBC Morphology Sodium Potassium Chloride Carbon Dioxide Anion Gap BUN Creatinine Est Cr Clr Drug Dosing Est GFR ( Amer) Est GFR (Non-Af Amer) BUN/Creatinine Ratio Glucose POC Glucose 171 H 72 63 L* Calcium Magnesium Urine Opiates Screen Ur Methadone, Qual Urine Barbiturates Ur Phencyclidine (PCP) U Amphetamin/Meth Scrn MDMA (Ecstasy) Screen U Benzodiazepines Scrn Ur Cocaine Metabolite U Marijuana (THC) Screen 11/15/18 11/15/18 11/15/18 17:58 19:25 20:19 WBC RBC Hgb Hct MCV MCH MCHC RDW Std Deviation RDW Coeff of Zuleima Plt Count MPV Immature Gran % (Auto) Neut % (Auto) Lymph % (Auto) Granite % (Auto) Eos % (Auto) Baso % (Auto) Immature Gran # (Auto) Neut # (Auto) Lymph # (Auto) Granite # (Auto) Eos # (Auto) Baso # (Auto) RBC Morphology Sodium Potassium Chloride Carbon Dioxide Anion Gap BUN Creatinine Est Cr Clr Drug Dosing Est GFR ( Amer) Est GFR (Non-Af Amer) BUN/Creatinine Ratio Glucose POC Glucose 121 H 61 L* Calcium Magnesium Urine Opiates Screen Pos H Ur Methadone, Qual Neg Urine Barbiturates Neg Ur Phencyclidine (PCP) Neg U Amphetamin/Meth Scrn Neg MDMA (Ecstasy) Screen Neg U Benzodiazepines Scrn Neg Ur Cocaine Metabolite Neg U Marijuana (THC) Screen Pos H 11/15/18 11/15/18 11/15/18 20:21 20:51 21:21 WBC RBC Hgb Hct MCV MCH MCHC RDW Std Deviation RDW Coeff of Zuleima Plt Count MPV Immature Gran % (Auto) Neut % (Auto) Lymph % (Auto) Granite % (Auto) Eos % (Auto) Baso % (Auto) Immature Gran # (Auto) Neut # (Auto) Lymph # (Auto) Granite # (Auto) Eos # (Auto) Baso # (Auto) RBC Morphology Sodium Potassium Chloride Carbon Dioxide Anion Gap BUN Creatinine Est Cr Clr Drug Dosing Est GFR ( Amer) Est GFR (Non-Af Amer) BUN/Creatinine Ratio Glucose POC Glucose 65 L* 62 L* 224 H Calcium Magnesium Urine Opiates Screen Ur Methadone, Qual Urine Barbiturates Ur Phencyclidine (PCP) U Amphetamin/Meth Scrn MDMA (Ecstasy) Screen U Benzodiazepines Scrn Ur Cocaine Metabolite U Marijuana (THC) Screen 11/16/18 11/16/18 11/16/18 02:03 05:33 05:33 WBC 3.54 L RBC 2.56 L Hgb 7.9 L Hct 23.1 L MCV 90.2 MCH 30.9 MCHC 34.2 RDW Std Deviation 53.9 H RDW Coeff of Zuleima 17.3 H Plt Count 332 MPV 9.0 Immature Gran % (Auto) 0.6 Neut % (Auto) 88.7 Lymph % (Auto) 9.3 Granite % (Auto) 1.4 Eos % (Auto) 0.0 Baso % (Auto) 0.0 Immature Gran # (Auto) 0.02 Neut # (Auto) 3.14 Lymph # (Auto) 0.33 L Granite # (Auto) 0.05 L Eos # (Auto) 0.00 Baso # (Auto) 0.00 RBC Morphology Unremarkable Sodium 134 L Potassium 4.3 Chloride 105 Carbon Dioxide 23 Anion Gap 6.0 BUN 19 H Creatinine 1.27 Est Cr Clr Drug Dosing 78.7 Est GFR ( Amer) 89.8 Est GFR (Non-Af Amer) 77.5 BUN/Creatinine Ratio 15.2 Glucose 264 H POC Glucose 272 H Calcium 7.6 L Magnesium 1.6 L Urine Opiates Screen Ur Methadone, Qual Urine Barbiturates Ur Phencyclidine (PCP) U Amphetamin/Meth Scrn MDMA (Ecstasy) Screen U Benzodiazepines Scrn Ur Cocaine Metabolite U Marijuana (THC) Screen 11/16/18 07:31 WBC RBC Hgb Hct MCV MCH MCHC RDW Std Deviation RDW Coeff of Zuleima Plt Count MPV Immature Gran % (Auto) Neut % (Auto) Lymph % (Auto) Granite % (Auto) Eos % (Auto) Baso % (Auto) Immature Gran # (Auto) Neut # (Auto) Lymph # (Auto) Granite # (Auto) Eos # (Auto) Baso # (Auto) RBC Morphology Sodium Potassium Chloride Carbon Dioxide Anion Gap BUN Creatinine Est Cr Clr Drug Dosing Est GFR ( Amer) Est GFR (Non-Af Amer) BUN/Creatinine Ratio Glucose POC Glucose 309 H Calcium Magnesium Urine Opiates Screen Ur Methadone, Qual Urine Barbiturates Ur Phencyclidine (PCP) U Amphetamin/Meth Scrn MDMA (Ecstasy) Screen U Benzodiazepines Scrn Ur Cocaine Metabolite U Marijuana (THC) Screen (1) Testicular cancer Descendance of testis: descended Laterality: left Qualified Code(s): C62.12 - Malignant neoplasm of descended left testis
[2018-11-16] MEDS: OXYCODONE HCL IR 5 MG TAB (IMMEDIATE RELEASE) PO PRN (12:29)
[2018-11-16] MEDS: MAGNESIUM OXIDE 400 MG TAB PO SCH ×2 (12:31→20:53)
[2018-11-16] MEDS: ENOXAPARIN INJ 30 MG/0.3 ML SYR SQ SCH (12:31)
--- NOTE | 2018-11-16 14:38 | Pharmacy Report ---
Pharmacy Glycemic Short Note 2 - Date of Service November 16, 2018 - Glycemic Short BSG Results (Last 24 hours): 11/15/18 11/15/18 11/15/18 16:39 17:37 17:58 Glucose POC Glucose 72 63 L* 121 H 11/15/18 11/15/18 11/15/18 20:19 20:21 20:51 Glucose POC Glucose 61 L* 65 L* 62 L* 11/15/18 11/16/18 11/16/18 21:21 02:03 05:33 Glucose 264 H POC Glucose 224 H 272 H 11/16/18 11/16/18 07:31 11:51 Glucose POC Glucose 309 H 189 H OUTPATIENT ANTIDIABETIC REGIMEN: * Tresiba 21 units HS * Lispro SS * A1c = 7.5 % 08/26/19 ASSESSMENT: * BSG of 309mg/dL this AM likely steroid induced. He did have some lows last night around dinner, attributable to the 10 units of lantus yesterday morning. His PO intake has still not improved greatly, ergo, will titrate insulin doses carefully. He is on a significant amount of dexamethasone, complicating his type 1 diabetes further. PLAN FOR INPATIENT GLYCEMIC CONTROL: * Basal insulin * Received 5 units this AM and responding well. * Lantus scale SQ x1 tonight: hold lantus for BSGs <200mg/dL, give 5 units for BSGs >/=200mg/dL * Bolus insulin * NovoLog per scale ACHS or Q6hrs while NPO * Goal Range: Low 140 mg/dL - High 180 mg/dL (higher per patient request) * Correction Factor: 25 mg/dL/unit (loosened yesterday) * Nutritional / Prandial insulin per carb ratio of 1 unit per 8 grams CHO consumed (loosened yesterday) PLAN FOR DISCHARGE: * No changes needed, A1c acceptable.
[2018-11-16] MEDS: ONDANSETRON HCL 8 MG in DEXTROSE 5% 50 ML IV PRN (17:16)
[2018-11-16] MEDS: DEXAMETHASONE SOD PHOSPHATE 4 MG in SYRINGE 0 ML IV PRN (17:20)
[2018-11-16] MEDS: SODIUM CHLORIDE 0.9% 1000ML 1,000 ML IV SCH ×2 (17:21→22:02)
[2018-11-16] MEDS: DEXAMETHASONE SOD PHOSPHATE IV SCH (18:18)
[2018-11-16] MEDS: CISPLATIN IV SCH (18:46)
[2018-11-16] MEDS: PROCHLORPERAZINE MALEATE 10 MG TAB PO PRN (20:52)
[2018-11-16] MEDS ORDERED: INSULIN GLARGINE SOLOSTAR 100 UNITS/ML 3 ML PEN SC ONE (21:00)
[2018-11-16] MEDS: IFOSFAMIDE IV SCH (21:02)
[2018-11-17] MEDS: MESNA IV SCH (01:32)
[2018-11-17] MEDS: SODIUM CHLORIDE 0.9% IV SCH (01:32)
[2018-11-17] MEDS: ONDANSETRON HCL 8 MG in DEXTROSE 5% 50 ML IV PRN ×2 (03:34→11:55)
[2018-11-17] MEDS: DEXAMETHASONE SOD PHOSPHATE 4 MG in SYRINGE 0 ML IV PRN ×2 (03:34→11:54)
[2018-11-17 06:36] LABS: BUN Creatinine Ratio 14.9 (10-20); Calcium 7.7 mg/dl (8.5-10.1); Creatinine Clr Calc Pharmacy 61.3 ml/min; Est GFR (African American) 66.4; Est GFR (Non-African American) 57.3; Magnesium 1.6 mg/dl (1.8-2.4); Phosphorus 4.8 mg/dl (2.5-4.9); Potassium 3.8 mmol/L (3.5-5.1)
[2018-11-17] MEDS ORDERED: INSULIN GLARGINE SOLOSTAR 100 UNITS/ML 3 ML PEN SC ONE ×2 (09:00→21:00)
[2018-11-17] MEDS: MoRPHine SULFATE CR 15 MG TABCR PO SCH ×3 (09:14→21:37)
[2018-11-17] MEDS: AMPHETAMINE ASP/SULF/DEXTRAMPH 10 MG TAB PO SCH ×3 (09:15→16:27)
[2018-11-17] MEDS: MULTIVITAMIN TAB PO SCH (09:16)
[2018-11-17] MEDS: MAGNESIUM SULFATE / D5W 1 GM/100 ML BAG IV SCH ×3 (09:16→11:22)
[2018-11-17] MEDS: MAGNESIUM OXIDE 400 MG TAB PO SCH ×2 (09:16→21:37)
[2018-11-17] MEDS: NICOTINE 21 MG/24 HR TDSY TD SCH (09:17)
[2018-11-17] MEDS: ALPRAZolam 0.5 MG TABLET PO SCH ×2 (09:17→21:37)
[2018-11-17] MEDS: INSULIN ASPART 100 UNITS/ML 3 ML PEN SC SCH ×4 (09:19→20:35)
[2018-11-17] MEDS: ONDANSETRON INJ 2 MG/ML 2 ML VIAL IV PRN ×3 (10:19→21:43)
[2018-11-17] MEDS: PROCHLORPERAZINE MALEATE 10 MG TAB PO PRN ×2 (10:30→17:08)
[2018-11-17] MEDS: ENOXAPARIN INJ 30 MG/0.3 ML SYR SQ SCH (12:34)
[2018-11-17] MEDS: ACYCLOVIR SOD 450 MG in DEXTROSE 5% 100 ML IV SCH ×2 (12:34→21:38)
[2018-11-17] MEDS: OXYCODONE HCL IR 5 MG TAB (IMMEDIATE RELEASE) PO PRN (16:28)
[2018-11-17] MEDS ORDERED: MoRPHine SULFATE 4 MG/ML 1 ML CARP\\VIAL IV PRN (16:41)
--- NOTE | 2018-11-17 16:54 | Hospitalist Progress Note ---
Date of Service November 17, 2018 Assessment & Plan (1) Testicular cancer: Admitted to med surg for routine planned Paclitaxel chemotherapy. Follows with Dr. Beaulieu as outpt. - Medicated with dexamethasone, benadryl and famotidine per oncology - Acyclovir for Herpes zoster infection while on chemotherapy - Continue antiemetic therapy: zofran and compazine alternating PRN - Trying to control nausea and correct electrolytes. Can discharge once stable (2) Metastatic cancer to brain: Metastatic cancer to brain- MRI of the brain reviewed from previous admissions - 2 mm lesion related to brain metastases. - No seizure activity since last admission (3) Anemia due to antineoplastic chemotherapy: Hgb came back up into the 8s upon last discharge on 10/24. - Transfusing to hgb > 8 for oncology patient. (4) Cancer related pain: Using MS Contin 30 mg PO q8h and oxycodone 10 mg Q4H PRN. - Monitor for polysubstance abuse with hx of marijuana use, Xanax and chronic opioids. - Low-dose morphine IV as nausea/vomiting is preventing oral meds (5) Type I diabetes mellitus: A1c of 7.5% in 08/2018. - Glycemic pharmacy consulted for admission stay. - ISS with robe aleman. (6) CKD (chronic kidney disease), stage II: Baseline Cr is 1.2 with eGFR ~80. - Follow Cr while admitted. (7) Seizure: Likely secondary to brain mets as above, no seizure like activity since 09/17-09/18. Pt is not on any antiepileptic medications. - Monitor (8) Severe protein-calorie malnutrition: - Will order boost supplementation while inpatient, pt has not been drinking supplement as an outpatient since last admit. Encourage throughout stay. (9) Chronic pain syndrome: Due to cancer and left hip pain. - Opioid use as above. (10) Tobacco use: - Cessation encouraged, nicotine patch 21 mg ordered for 1.5 ppd use. (11) Mood disorder: Stable but exacerbated by poor social circumstances involving limited support and low economic housing status. No SI/HI reported. - Continue to monitor (12) S/p nephrectomy: S/p left nephrectomy. Unclear when or for what reason. - Monitor Cr - Avoid nephrotoxic medications (13) DVT prophylaxis: Lovenox 30mg daily Subjective 28yo M w/ metastatic testicular cancer who presents for nausea and chemotherapy treatment. This morning he is very tired, no major complaints. Quickly goes back to sleep after answering a single yes/no question. Reports no fevers/chills, chest pain, shortness of breath, abdominal pain, nausea, or vomiting. Physical Exam Vital Signs (Past 24 Hours): Last Vital Signs Temp 37.0 C 11/17/18 15:56 Pulse 109 H 11/17/18 15:56 Resp 18 11/17/18 15:56 BP 111/76 11/17/18 15:56 Pulse Ox 96 11/17/18 15:56 Constitutional: WD/WN, vitals as above Eyes: EOM intact bilaterally; no conjunctival abnormality ENMT: external ear and nose normal, oropharynx normal Neck: trachea midline, no thyromegaly normal visual inspection Respiratory: normal respiratory effort, lungs clear to auscultation no respiratory distress Cardiovascular: RRR, no murmur, no edema Gastrointestinal (Abdomen): Inspection/Auscultation: abdomen normal to inspection; abdomen not distended Musculoskeletal: no cyanosis or clubbing, extremities motor strength 5/5 Skin: no rashes, warm and dry Neurologic: moves all extremities; + not awake and not confused Psychiatric: Orientation: alert, oriented to person and cooperative (1) Testicular cancer Descendance of testis: descended Laterality: left Qualified Code(s): C62.12 - Malignant neoplasm of descended left testis
[2018-11-17] MEDS: D5W AND 1/2NSS 1,000 ML IV SCH (17:55)
[2018-11-17 19:49] LABS: Hematocrit (blood only) 27.4 % (42-52); Hemoglobin 9.7 g/dL (14.0-18.0); Immature Granulocytes # (auto) 0.02 K/uL (0.00-0.02); Immature Granulocytes % (auto) 0.3 %; Lymphocytes # (auto) 0.29 K/uL (1.2-3.4); Lymphocytes % (auto) 4.2 %; Mean Corpuscular Hgb Conc 35.4 g/dL (32-36); Mean Platelet Volume 8.2 fL (7.4-10.4); Monocytes # (auto) 0.06 K/uL (0.11-0.59); Monocytes % (auto) 0.9 %; Neutrophils % (auto) 94.6 %; Platelet Count 371 K/uL (130-400); RDW Coefficient of Variation 16.2 % (11.5-14.5); RDW Standard Deviation 50.7 fL (36.4-46.3); Red Blood Count 3.15 M/uL (4.7-6.1); White Blood Count 6.87 K/uL (4.8-10.8)
[2018-11-17] MEDS: Magic Swizzle 240mL MT PRN (20:23)
[2018-11-17] MEDS: CARBOHYDRATES FOR HYPOGLYCEMIA PO PRN (20:33)
[2018-11-17 20:41] LABS: BUN Creatinine Ratio 14.4 (10-20); Bilirubin,Total 0.3 mg/dl (0.2-1); Calcium 8.2 mg/dl (8.5-10.1); Creatinine Clr Calc Pharmacy 53.4 ml/min; Est GFR (African American) 56.2; Est GFR (Non-African American) 48.5; Potassium 3.2 mmol/L (3.5-5.1)
[2018-11-17 20:42] LABS: Albumin Globulin Ratio 0.7 (0.9-2); Albumin Level 2.8 gm/dl (3.4-5.0); Globulin 3.8 gm/dl (2.5-4.0); Total Protein 6.6 gm/dl (6.4-8.2)
[2018-11-17] MEDS ORDERED: POTASSIUM CHLORIDE 40 MEQ in SODIUM CHLORIDE 0.9% 1000ML 1,000 ML IV SCH (21:30)
[2018-11-17 23:51] VITALS: O2SAT 97
[2018-11-18] MEDS: DEXTROSE 50% 50 ML SYRINGE IV PRN (03:44)
[2018-11-18] MEDS: MoRPHine SULFATE CR 15 MG TABCR PO SCH ×2 (05:56→13:36)
[2018-11-18 06:15] LABS: Hematocrit (blood only) 24.7 % (42-52); Hemoglobin 8.9 g/dL (14.0-18.0); Immature Granulocytes # (auto) 0.02 K/uL (0.00-0.02); Immature Granulocytes % (auto) 0.4 %; Lymphocytes # (auto) 0.26 K/uL (1.2-3.4); Lymphocytes % (auto) 5.3 %; Mean Corpuscular Volume 87.6 fL (80-100); Mean Platelet Volume 8.2 fL (7.4-10.4); Monocytes # (auto) 0.03 K/uL (0.11-0.59); Monocytes % (auto) 0.6 %; Neutrophils # (auto) 4.58 K/uL (1.4-6.5); Neutrophils % (auto) 93.7 %; Platelet Count 310 K/uL (130-400); RDW Coefficient of Variation 16.3 % (11.5-14.5); Red Blood Count 2.82 M/uL (4.7-6.1); White Blood Count 4.89 K/uL (4.8-10.8)
[2018-11-18 06:45] LABS: Albumin Level 2.6 gm/dl (3.4-5.0); BUN Creatinine Ratio 13.8 (10-20); Calcium 8.2 mg/dl (8.5-10.1); Creatinine Clr Calc Pharmacy 43.2 ml/min; Est GFR (Non-African American) 41.5; Magnesium 1.9 mg/dl (1.8-2.4); Potassium 3.4 mmol/L (3.5-5.1)
[2018-11-18 06:48] LABS: Albumin Globulin Ratio 0.8 (0.9-2); Bilirubin,Total 0.3 mg/dl (0.2-1); Globulin 3.5 gm/dl (2.5-4.0); Total Protein 6.1 gm/dl (6.4-8.2)
[2018-11-18] MEDS: AMPHETAMINE ASP/SULF/DEXTRAMPH 10 MG TAB PO SCH ×3 (06:50→13:37)
[2018-11-18 06:56] LABS: RBC Morphology Unremarkable
[2018-11-18] MEDS: POTASSIUM CHLORIDE / WTR 10 MEQ/100 ML PLCT IV SCH ×4 (07:48→11:18)
[2018-11-18] MEDS: NICOTINE 21 MG/24 HR TDSY TD SCH (09:26)
[2018-11-18] MEDS: INSULIN ASPART 100 UNITS/ML 3 ML PEN SC SCH ×2 (09:26→13:37)
[2018-11-18] MEDS: MAGNESIUM OXIDE 400 MG TAB PO SCH (09:26)
[2018-11-18] MEDS: MULTIVITAMIN TAB PO SCH (09:26)
[2018-11-18] MEDS: ALPRAZolam 0.5 MG TABLET PO SCH (09:27)
[2018-11-18] MEDS: ACYCLOVIR SOD 450 MG in DEXTROSE 5% 100 ML IV SCH (09:28)
[2018-11-18] MEDS: ENOXAPARIN INJ 30 MG/0.3 ML SYR SQ SCH (09:28)
[2018-11-18 11:44] VITALS: BP 115/68; TEMP 98.6
[2018-11-18] MEDS: OXYCODONE HCL IR 5 MG TAB (IMMEDIATE RELEASE) PO PRN (13:36)
[2018-11-18] MEDS: Magic Swizzle 240mL MT PRN (13:38)
--- NOTE | 2018-11-18 13:59 | Pharmacy Report ---
Glycemic Control Progress Note - Date of Service November 18, 2018 - Scope Glycemic Pharmacist consulted for glycemic control to write orders per [facility] inpatient glycemic control protocol. - Objective Accuchecks BSG(last 24 hours):: 11/17/18 11/17/18 11/17/18 16:52 19:39 19:43 Glucose 60 L POC Glucose 99 65 L* 11/17/18 11/18/18 11/18/18 20:30 03:37 03:39 Glucose POC Glucose 92 50 L* 54 L* 11/18/18 11/18/18 11/18/18 03:59 05:50 07:35 Glucose 70 POC Glucose 103 H 70 11/18/18 11:19 Glucose POC Glucose 85 - Recent Pertinent Medications The patient is currently receiving: * Basal insulin: Lantus 10 units SQ x 1 (last dose 11/17 in the morning) * Correctional Insulin: Novolog Correction per scale ACHS Goal Range: Low 140 mg/dL - High 180 mg/dL Correction Factor: 25 mg/dL/unit * Prandial insulin: Per carb ratio of 1 unit per 8 grams CHO consumed - Outpatient Anti-Diabetic Meds Tresiba 21 units SQ daily + Humalog - Assessment & Plan ASSESSMENT: * See progress note from 11/13/18 for more background info, in short: * Pt receiving SQ basal bolus insulin regimen for hyperglycemia secondary to baseline DM (outpatient regimen on hold),stress (s/p round of chemotherapy with steroids prior), recently received dexamethasone 10 mg IV daily x 4 days; received dexamethasone 4 mg IV x 1 yesterday. * Patient is currently receiving an average of 16 units of insulin per day * 10 units of basal insulin * 6 units of prandial/correctional insulin * BSGs ranging 60 - 228 mg/dl over the past 24hrs * Changes needed to insulin regimen: * AM Fasting BSG = 70 mg/dl. This is below goal range for patient based on inpatient targets and co-morbidities. Yesterday, patient's blood sugars were elevated until after lunch. At dinner, the patient's blood sugar was 65 (he was treated for hypoglycemia). Patient also had a hypoglycemic event at 4 AM where he received 25 mL of dextrose. Currently, the patient has not received Lantus today. His appetite is poor. * Spoke with Dr Salguero. The patient and his fiancee expressed that they would not like him to receive Lantus today. Instead, they want him to go home and take his Tresiba. Explained this to provider. Expressed that I am comfortable with this only if the insulin is given by 1800 today. Do not want this insulin to be given tonight prior to bed as I am concerned for DKA. He is comfortable with this as well and will express the need for patient to take his Tresiba early. * Post-prandial BSGs stay in range relatively well. Continue PLAN FOR INPATIENT GLYCEMIC CONTROL: * Continuing / Increasing / decreasing Lantus/NPH to [] units SQ BID * Continuing / changing correction factor to [] mg/dl/unit * Continuing / changing carb ratio to 1 unit per [] grams CHO consumed * Continuing / changing goal range to Low [] mg/dL - High [] mg/dL RECOMMENDATIONS FOR DISCHARGE: * As long as patient does not have hypoglycemia. Reasonable to continue current dosing. Thank you.
[2018-11-18 14:29] VITALS: PULSE 88
--- NOTE | 2018-11-18 18:25 | Discharge Summary ---
Date of Service November 18, 2018 Admission HPI Per Admitting Provider This is a 28 yo M with metastatic testicular cancer to the brain, type I diabetes mellitus, CKD stage II, depression, chronic anxiety, avascular necrosis of the femur, seizures, herpes zoster recently treated with a course of Valtrex, chronic tobacco abuse with smoking 1.5 ppd, who presents for routine chemotherapy. Pt was recently admitted 10/20-10/24 most recent chemotherapy. not had any further seizure activity. He has chronic pain in his left leg and is s/p a R foot fracture with multiple metatarsal fractures involved. He reports wearing the brace but that there was an additional fracture seen on the last imaging he had done. Pt has been taking MS Contin 30 mg every 8 hours and Oxycodone 10 mg every 4-6 hours. Pt follows with Dr. Beaulieu as an outpatient. His girlfriend is present with him at bedside. Principal Diagnosis Chemotherapy for testicular cancer Discharge Exam Constitutional WD/WN, vitals as above Eyes EOM intact bilaterally; no conjunctival abnormality ENMT external ear and nose normal, oropharynx normal Neck trachea midline, no thyromegaly normal visual inspection Respiratory normal respiratory effort, lungs clear to auscultation no respiratory distress Cardiovascular RRR, no murmur, no edema Gastrointestinal (Abdomen) Inspection/Auscultation: abdomen normal to inspection; abdomen not distended Musculoskeletal no cyanosis or clubbing, extremities motor strength 5/5 Skin no rashes, warm and dry Neurologic moves all extremities; not confused Psychiatric Orientation: alert, oriented to person and cooperative Discharge Data Allergies Allergy/AdvReac Type Severity Reaction Status Date / Time No Known Allergies Allergy Verified 10/07/18 11:54 Consultations 11/12/18 09:31 Consult Case Management - Discharge Planning Routine 11/13/18 08:18 Consult Oncology Routine Hospital Course (1) Testicular cancer: Admitted to med surg for routine planned Paclitaxel chemotherapy. Follows with Dr. Beaulieu as outpatient. - Medicated with dexamethasone, benadryl and famotidine per oncology - Acyclovir for Herpes zoster infection while on chemotherapy - Continued antiemetic therapy: zofran and compazine alternating PRN - Follow up with Dr. Beaulieu (2) Metastatic cancer to brain: Metastatic cancer to brain- MRI of the brain reviewed from previous admissions - 2 mm lesion related to brain metastases. - No seizure activity since last admission (3) Anemia due to antineoplastic chemotherapy: Hgb came back up into the 8s upon last discharge on 10/24. - Transfusing to hgb > 8 for oncology patient. - Got 1 unit PRBCs on 11/17 with hgb of 8.9 on discharge (4) Cancer related pain: Using MS Contin 30 mg PO q8h and oxycodone 10 mg Q4H PRN. - Monitor for polysubstance abuse with hx of marijuana use, Xanax, and chronic opioids. (5) Type I diabetes mellitus: A1c of 7.5% in 08/2018. - Glycemic pharmacy consulted for admission stay. - Hypoglycemia on 11/17 with poor PO intake. Lantus held the morning of 11/18, and he will return to his home insulin regimen once he gets home. Discussed with the glycemic pharmacist and patient/girlfriend. (6) CKD (chronic kidney disease), stage II: Baseline Cr is 1.2 with eGFR ~80. - Cr up to 2.0 on discharge, likely due to chemotherapy and poor PO intake. However, patient and fiancee both desired the patient to go home, so will get BMP with PCP this week. (7) Seizure: Likely secondary to brain mets as above, no seizure like activity since 09/17-09/18. Pt is not on any antiepileptic medications. - Monitor (8) Severe protein-calorie malnutrition: - Will order boost supplementation while inpatient, pt has not been drinking supplement as an outpatient since last admit. Encouraged throughout stay. (9) Chronic pain syndrome: Due to cancer and left hip pain. - Opioid use as above. (10) Tobacco use: - Cessation encouraged, nicotine patch 21 mg ordered for 1.5 ppd use. (11) Mood disorder: Stable but exacerbated by poor social circumstances involving limited support and low economic housing status. No SI/HI reported. - Continue to monitor (12) S/p nephrectomy: S/p left nephrectomy. - Monitor Cr - Avoid nephrotoxic medications Total Time Total Time Spent Total Time Spent (In Minutes): 40 Total Time Includes: Examination of the Patient, Discharge Planning and Medication Reconciliation Discharge Plan Discharge Items Patient Disposition: Home - Self-Care Reason For Visit: METASTATIC TESTICULAR CANCER, CHEMOTHERAPY Discharge Diagnosis: Chemotherapy Discharge Goals: Decrease discomfort, Increase independence and Therapeutic intervention Activity: Resume your previous activity Non-emergency contact: Primary Care Provider and Oncologist Call non-emergency contact if: you have any medication questions, your pain is not controlled and your temperature is above 100.5 Follow-up/Referrals: Kade Kelsey III, MD [Primary Care Provider] - 11/21/18 3:00 pm (Please, follow up at Dr. Kelsey's office with his acute care nursing assistant, Heidi Pearson PA-C, on SaturdayNovember 21 at 3:00 pm. *If you need to change this appointment, call the office at [phone]. ) Bairon Beaulieu [Physician] - (Please, follow up with Dr. Bairon Beaulieu. The nurse will call you with the appointment details. *If you have any questions, call the office at [phone].) Diet: Regular Addtl Provider Instructions: Mr. Leigh, You were here for chemotherapy. You did well with it and will be discharged to follow up with Dr. Beaulieu. Please take the compazine and Zofran to help your nausea and improve your meals. Please follow up with your PCP on Saturday to have labs drawn and be sure your kidney function is improving. If you have uncontrolled pain, fevers, chills, a temperature > 100.5, or other concerning symptoms, please return to the hospital. Prescriptions: New ondansetron HCl [Zofran] 4 mg tablet 4 mg PO Q6H PRN (Reason: nausea and vomiting) Qty: 30 RF: 0 Continued prochlorperazine maleate [Compazine] 10 mg tablet 10 mg PO Q6H PRN (Reason: nausea and vomiting) Qty: 30 RF: 0 morphine [MS Contin] 30 mg tablet extended release 30 mg PO Q8 Qty: 10 RF: 0 oxycodone 10 mg tablet 10 mg PO Q4H PRN (Reason: Pain) Qty: 20 RF: 0 alprazolam [Xanax] 0.5 mg tablet 0.5 mg PO BID RF: 0 dextroamphetamine-amphetamine [Adderall] 15 mg tablet 15 mg PO BID RF: 0 insulin lispro [Admelog SoloStar U-100 Insulin] 100 unit/mL insulin pen See Rx Instructions .ROUTE .COMPLEX RF: 0 multivitamin Tablet 1 tab PO DAILY RF: 0 insulin degludec [Tresiba FlexTouch U-100] 100 unit/mL (3 mL) insulin pen 21 unit subcut QPM RF: 0 valacyclovir 1 gram tablet 1,000 mg PO DAILY Qty: 30 RF: 4 Stand-Alone Forms: [facility] Discharge Orders: Discharge Order (Routine); Ordered 11/18/18 Ordered By: Junaid Salguero Admission Data Admit Date/Time: 11/12/18 08:54 Attending Provider: Junaid Salguero Admit Provider: Yuri Mai Primary Care Provider: Kade Kelsey III Other Providers: Eduardo Herrera V Service: Medical Other Interventions: Discharge Summary Assessment (RN) Last Done: 11/18/18 14:20 DC Date/Time DO NOT enter until pt leaves facility: 11/18/18 15:40
[2018-11-19 16:26] LABS: Hydrocodone Urine NEGATIVE NG/ML (CUTOFF=50); Hydromor Urine NEGATIVE NG/ML (CUTOFF=50); Marijuana Quant, GCMS Urine 17 NG/ML (CUTOFF=5); Morphine Urine 6770 NG/ML (CUTOFF=50); Norhydrocodone Conf Ur NEGATIVE NG/ML (CUTOFF=50); Noroxycodone Urine 111 NG/ML (CUTOFF=50); Oxycodone Urine 106 NG/ML (CUTOFF=50)
== END 2018-11-18 15:40 | disposition home or self-care (01) | DRG 846 ==
LOC: SUATTDRO 08:54 → 4E 08:54

== ENCOUNTER 2018-11-23 09:01 | Inpatient (IN) ==
[2018-11-23] MEDS ORDERED: ONDANSETRON INJ 2 MG/ML 2 ML VIAL IV STA (09:24)
[2018-11-23] MEDS ORDERED: SODIUM CHLORIDE 0.9% 1000ML 2,000 ML IV SCH (09:30)
--- NOTE | 2018-11-23 09:30 | Emergency Department Note ---
Entered by Rivka Crane acting as a scribe for Chance Goldstein DO History of Present Illness General Chief complaint: Fever Time Seen by Provider: 11/23/18 09:08 Source: patient History of Present Illness Onset (ago): day(s) 2 Location: abdomen Pain Consistency: + other (persistent) Quality: + other (vomiting) Associated symptoms: + cough (productive with clear sputum), + fever/chills (mild fever), + nausea/vomiting (nausea) and + other (mild diarrhea) The patient is a 28 year old male presenting in the Emergency Room with complaints of vomiting and dizziness that started two days ago. The patient reports that he has been feeling unwell for the past two days and is experiencing nausea, vomiting, dizziness, mild diarrhea, mild subjective fever, and coughing that produces a clear sputum. He notes he has a history of testicular cancer and that he just finished his final session of chemotherapy 5 days ago. He states he has similar nausea/vomiting symptoms in the past after chemotherapy sessions and needed fluids. The patient reports that he had a testicle removed two years when he was first diagnosed with testicular cancer but that the cancer came back and metastasized to his abdomen one year ago. He denies any past infections. He states he has several broken bones in his feet. Home Medications Home Medications Medication Instructions Recorded Confirmed Type alprazolam [Xanax] 0.5 mg PO BID 07/25/18 11/23/18 History dextroamphetamine-amphetamine 15 mg PO BID 07/25/18 11/23/18 History [Adderall] insulin lispro [Admelog SoloStar See Rx Instructions .ROUTE .COMPLEX 07/25/18 11/23/18 History U-100 Insulin] multivitamin 1 tab PO DAILY 07/25/18 11/23/18 History Tresiba FlexTouch U-100 21 unit SUBCUT QPM 10/20/18 11/23/18 History valacyclovir 1,000 mg PO DAILY #30 tab 10/24/18 11/23/18 Rx morphine [MS Contin] 30 mg PO Q8 #10 tab 11/18/18 11/23/18 Rx ondansetron HCl [Zofran] 4 mg PO Q6H PRN #30 tab 11/18/18 11/23/18 Rx oxycodone 10 mg PO Q4H PRN #20 tab 11/18/18 11/23/18 Rx prochlorperazine maleate 10 mg PO Q6H PRN #30 tab 11/18/18 11/23/18 Rx [Compazine] Allergies Allergy/AdvReac Type Severity Reaction Status Date / Time No Known Allergies Allergy Verified 11/23/18 09:41 Past Med/Surg History Medical History S/p nephrectomy left - 2018; [facility] Polysubstance abuse (Chronic) Elevated LFTs Herpes zoster right forehead Anemia due to antineoplastic chemotherapy Tobacco use (Chronic) Mood disorder (Chronic) Avascular necrosis of bone of left hip CKD (chronic kidney disease), stage II Type I diabetes mellitus (Chronic) Testicular cancer (Chronic) Cancer related pain Metastatic cancer to brain (Chronic) Seizure (Acute) Depression Chronic pain syndrome Severe protein-calorie malnutrition (Chronic) Teratoma of pelvis Surgical History History of nephrectomy History of orchiectomy History of repair of left hip joint Family History Grandfather Heart attack Other Cancer Social History Preferred Language: Syriac Communication Ability: Effective Doll Wig Maker Rooted Hair Required: No Beliefs That Will Affect Care: None marital status: Single Current Living Situation: Parent and Significant Other Current Living Situation Comment: parents and fiancee current occupational status: previously employed Other Information That Helps Us Care for You: No 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 Feels Safe at Home: Yes Safety Concerns: Feels Safe At This Time Smoking Status: Current every day smoker Hx Alcohol Use: No Hx Substance Use: Yes Review of Systems See HPI for pertinent positives & negatives. and A total of 10 systems reviewed and were otherwise negative Physical Exam Vital Signs Vital Signs - 24 hr 11/23/18 09:05 11/23/18 09:06 11/23/18 09:15 Temperature 37.9 C H Temperature Source Oral Sepsis Recent Fever Within 48 Hours Yes Sepsis New/Unexplained Change in Mental Status No Sepsis Action Taken by Nursing Physician Notified Pulse Rate 138 H 134 H 135 H Pulse Rate from SpO2 Sensor 137 H 134 H Pulse Rhythm Regular Pulse Strength Normal Respiratory Rate 18 16 20 Respiratory Effort / Characteristics Non-Labored Respiratory Depth Normal Blood Pressure 103/63 103/63 Blood Pressure Mean 76 76 Blood Pressure Position Lying Pulse Oximetry 100 99 100 Oxygen Delivery Method Room Air 11/23/18 09:30 11/23/18 11:21 11/23/18 11:22 Temperature Temperature Source Sepsis Recent Fever Within 48 Hours Sepsis New/Unexplained Change in Mental Status Sepsis Action Taken by Nursing Pulse Rate 129 H 154 H Pulse Rate from SpO2 Sensor 128 H Pulse Rhythm Pulse Strength Respiratory Rate 19 11 L Respiratory Effort / Characteristics Respiratory Depth Blood Pressure 103/77 Blood Pressure Mean 85 Blood Pressure Position Pulse Oximetry 100 Oxygen Delivery Method 11/23/18 11:30 11/23/18 12:00 11/23/18 12:20 Temperature Temperature Source Sepsis Recent Fever Within 48 Hours Sepsis New/Unexplained Change in Mental Status Sepsis Action Taken by Nursing Pulse Rate 140 H 134 H Pulse Rate from SpO2 Sensor Pulse Rhythm Pulse Strength Respiratory Rate 17 21 Respiratory Effort / Characteristics Respiratory Depth Blood Pressure Blood Pressure Mean Blood Pressure Position Pulse Oximetry Oxygen Delivery Method Room Air 11/23/18 12:36 11/23/18 12:49 11/23/18 12:52 Temperature 36.5 C Temperature Source Oral Sepsis Recent Fever Within 48 Hours Sepsis New/Unexplained Change in Mental Status Sepsis Action Taken by Nursing Pulse Rate 141 H 146 H 138 H Pulse Rate from SpO2 Sensor 146 H Pulse Rhythm Regular Pulse Strength Normal Respiratory Rate 24 19 22 Respiratory Effort / Characteristics Respiratory Depth Blood Pressure 106/81 106/81 Blood Pressure Mean 89 89 Blood Pressure Position Lying Pulse Oximetry 100 99 Oxygen Delivery Method 11/23/18 13:00 11/23/18 13:01 11/23/18 13:07 Temperature 38.4 C H Temperature Source Oral Sepsis Recent Fever Within 48 Hours Sepsis New/Unexplained Change in Mental Status Sepsis Action Taken by Nursing Pulse Rate 140 H 138 H 138 H Pulse Rate from SpO2 Sensor 140 H 138 H Pulse Rhythm Regular Pulse Strength Normal Respiratory Rate 19 19 20 Respiratory Effort / Characteristics Respiratory Depth Blood Pressure 115/80 110/78 Blood Pressure Mean 91 88 Blood Pressure Position Lying Pulse Oximetry 100 100 100 Oxygen Delivery Method CONSTITUTIONAL/VITAL SIGNS: Reviewed / noted above. GENERAL: Non-toxic in appearance. INTEGUMENTARY: Warm, dry, and [place]. HEAD: Normocephalic. EYES: without scleral icterus or trauma. ENT/OROPHARYNX: clear and moist. LYMPHADENOPATHY/NECK: Is supple without lymphadenopathy or meningismus. RESPIRATORY: Lungs clear and equal. CARDIOVASCULAR: Regular rhythm. Tachycardia. GI/ABDOMEN: Soft and nontender. No organomegaly or pulsatile mass. No rebound or guarding. Normal bowel sounds. EXTREMITIES: Warm and well perfused. BACK: No CVA tenderness. NEUROLOGICAL: Intact without focal deficits. PSYCHIATRIC: normal affect. MUSCULOSKELETAL: Normally developed with good muscle tone. Course 904: Previous medical records were reviewed. The patient was evaluated in room C01B. A complete history and physical examination was performed. 1117: I discussed the patient's case with Dr. Reji Poole, [facility], who will evaluate the patient for further management and care. 1133: I discussed the results and findings with the patient. He verbalized agreement of the treatment plan. I spoke with Dr. Poole of the [facility] Hospitalist Service. The patient will be evaluated for further management and care. Administered Medications Discontinued Medications Acetaminophen (Tylenol) 1,000 mg PO NOW STA Stop: 11/23/18 12:03 Last Admin: 11/23/18 13:07 Dose: 1,000 mg Documented by: [id number] Diphenhydramine HCl (Benadryl Syrup) 12.5 mg PO NOW ONE Stop: 11/23/18 12:03 Last Admin: 11/23/18 13:07 Dose: 12.5 mg Documented by: [id number] Sodium Chloride (Nss 1000ml) 2,000 mls @ 999 mls/hr IV .Q2H1M RHONDA Stop: 11/23/18 11:30 Last Admin: 11/23/18 09:49 Dose: 999 mls/hr Documented by: [id number] Medical Decision Making Differential Diagnosis Differential includes acute coronary syndrome, myocardial infarction, CVA, TIA, anemia, infection, pneumonia, UTI, pyelonephritis, poor nutrition, dehydration, electrolyte disturbance,hypoglycemia. Medical Records Attestation: I reviewed the patient's medical records. Home Medications Current Medication List: was personally reviewed by me Laboratory Data Attestation: I reviewed the patient's lab results. Result diagrams: 11/23/18 10:18 11/23/18 10:18 Lab Results 11/23/18 11/23/18 11/23/18 Range/Units 10:18 10:18 10:18 WBC 0.05 L* (4.8-10.8) K/uL RBC 1.99 L (4.7-6.1) M/uL Hgb 6.3 L* (14.0-18.0) g/dL Hct 16.8 L* (42-52) % MCV 84.4 (80-100) fL MCH 31.7 (25-34) pg MCHC 37.5 H (32-36) g/dL RDW Std Deviation 48.5 H (36.4-46.3) fL RDW Coeff of Zuleima 15.7 H (11.5-14.5) % Plt Count 23 L* (130-400) K/uL MPV 7.1 L (7.4-10.4) fL Immature Gran % (Auto) Cancelled Neut % (Auto) Cancelled Lymph % (Auto) Cancelled [place] % (Auto) Cancelled Eos % (Auto) Cancelled Baso % (Auto) Cancelled Immature Gran # (Auto) Cancelled Neut # (Auto) Cancelled Lymph # (Auto) Cancelled [place] # (Auto) Cancelled Eos # (Auto) Cancelled Baso # (Auto) Cancelled Neutrophils % (Manual) Cancelled Band Neutrophils % Cancelled Lymphocytes % (Manual) Cancelled Prolymphocyte % Cancelled Reactive Lymphs % (Man) Cancelled Monocytes % (Manual) Cancelled Eosinophils % (Manual) Cancelled Basophils % (Manual) Cancelled Metamyelocytes % (Man) Cancelled Myelocytes % (Man) Cancelled Promyelocytes % (Man) Cancelled Blast Cells % (Manual) Cancelled Plasma Cell % (Manual) Cancelled Other Cells % Cancelled Nucleated RBC % Cancelled Neutrophils # (Manual) Cancelled Band Neutrophils # Cancelled Total Absolute Neuts Cancelled Lymphocytes # (Manual) Cancelled Prolymphocyte # Cancelled Reactive Lymphs # Cancelled Total Abs Lymphocytes Cancelled Monocytes # (Manual) Cancelled Eosinophils # (Manual) Cancelled Basophils # (Manual) Cancelled Metamyelocytes # (Man) Cancelled Myelocytes # (Manual) Cancelled Promyelocytes # (Man) Cancelled Blast Cells # (Man) Cancelled Plasma Cell # (Manual) Cancelled Other Cells # Cancelled Nucleated RBCs # (Man) Cancelled Hypersegmented Neuts Cancelled Hyposegmented Neuts Cancelled Hypogranular Neuts Cancelled Large Granular Lymphs Cancelled # Lrg Granular Lymphs Cancelled Hairy Cells Cancelled Smudge Cells Cancelled Toxic Granulation Cancelled Toxic Vacuolation Cancelled Dohle Bodies Cancelled Didier Rods Cancelled Platelet Estimate SIGNIFIC DECREASED (Normal) Hypogranular Platelets Cancelled Clumped Platelets Cancelled Giant Platelets Cancelled Platelet Satelliting Cancelled RBC Morphology Cancelled Polychromasia Cancelled Hypochromasia Cancelled Poikilocytosis Cancelled Basophilic Stippling Cancelled Anisocytosis Cancelled Microcytosis Cancelled Macrocytosis Cancelled Spherocytes Cancelled Pappenheimer Bodies Cancelled Sickle Cells Cancelled Target Cells Cancelled Tear Drop Cells Cancelled Ovalocytes Cancelled Stomatocytes Cancelled [place] Bodies Cancelled Echinocytes Cancelled Acanthocytes (Spur) Cancelled Rouleaux Cancelled RBC Agglutinates Cancelled Schistocytes Cancelled RBC Morph Comment Cancelled Sezary Cell Cancelled Sodium 126 L (136-145) mmol/L Potassium 2.7 L (3.5-5.1) mmol/L Chloride 98 (98-107) mmol/L Carbon Dioxide 17 L (21-32) mmol/L Anion Gap 11.0 (3-11) BUN 33 H (7-18) mg/dl Creatinine 3.14 H (0.6-1.4) mg/dl Est Cr Clr Drug Dosing 27.2 ml/min Est GFR ( Amer) 30.1 Est GFR (Non-Af Amer) 25.9 BUN/Creatinine Ratio 10.6 (10-20) Glucose 182 H (70-99) mg/dl Calcium 7.1 L (8.5-10.1) mg/dl Magnesium 1.1 L (1.8-2.4) mg/dl Total Bilirubin 0.5 (0.2-1) mg/dl AST 10 L (15-37) U/L ALT 11 L (12-78) U/L Alkaline Phosphatase 83 (45-117) U/L Total Protein 6.1 L (6.4-8.2) gm/dl Albumin 2.3 L (3.4-5.0) gm/dl Globulin 3.8 (2.5-4.0) gm/dl Albumin/Globulin Ratio 0.6 L (0.9-2) Urine Color Urine Appearance (Clear) Urine pH (4.5-7.5) Ur Specific [place] (1.000-1.030) Urine Protein (Negative) Urine Glucose (UA) (Negative) Urine Ketones (Negative) Urine Blood (Negative) Urine Nitrite (Negative) Urine Bilirubin (Negative) Urine Urobilinogen (Negative) Ur Leukocyte Esterase (Negative) Urine WBC (Auto) (0-5) /hpf Urine RBC (Auto) (0-4) /hpf U Hyaline Cast (Auto) (0-5) /lpf U Epithel Cells (Auto) (0-5) /lpf Urine Bacteria (Auto) (Negative) Ur Renal Epithelial Cell Influenza Type A (PCR) (Neg) Influenza Type B (PCR) (Neg) Blood Type Antibody Screen Crossmatch 11/23/18 11/23/18 11/23/18 Range/Units 11:33 11:35 11:57 WBC (4.8-10.8) K/uL RBC (4.7-6.1) M/uL Hgb (14.0-18.0) g/dL Hct (42-52) % MCV (80-100) fL MCH (25-34) pg MCHC (32-36) g/dL RDW Std Deviation (36.4-46.3) fL RDW Coeff of Zuleima (11.5-14.5) % Plt Count (130-400) K/uL MPV (7.4-10.4) fL Immature Gran % (Auto) Neut % (Auto) Lymph % (Auto) [place] % (Auto) Eos % (Auto) Baso % (Auto) Immature Gran # (Auto) Neut # (Auto) Lymph # (Auto) [place] # (Auto) Eos # (Auto) Baso # (Auto) Neutrophils % (Manual) Band Neutrophils % Lymphocytes % (Manual) Prolymphocyte % Reactive Lymphs % (Man) Monocytes % (Manual) Eosinophils % (Manual) Basophils % (Manual) Metamyelocytes % (Man) Myelocytes % (Man) Promyelocytes % (Man) Blast Cells % (Manual) Plasma Cell % (Manual) Other Cells % Nucleated RBC % Neutrophils # (Manual) Band Neutrophils # Total Absolute Neuts Lymphocytes # (Manual) Prolymphocyte # Reactive Lymphs # Total Abs Lymphocytes Monocytes # (Manual) Eosinophils # (Manual) Basophils # (Manual) Metamyelocytes # (Man) Myelocytes # (Manual) Promyelocytes # (Man) Blast Cells # (Man) Plasma Cell # (Manual) Other Cells # Nucleated RBCs # (Man) Hypersegmented Neuts Hyposegmented Neuts Hypogranular Neuts Large Granular Lymphs # Lrg Granular Lymphs Hairy Cells Smudge Cells Toxic Granulation Toxic Vacuolation Dohle Bodies Didier Rods Platelet Estimate (Normal) Hypogranular Platelets Clumped Platelets Giant Platelets Platelet Satelliting RBC Morphology Polychromasia Hypochromasia Poikilocytosis Basophilic Stippling Anisocytosis Microcytosis Macrocytosis Spherocytes Pappenheimer Bodies Sickle Cells Target Cells Tear Drop Cells Ovalocytes Stomatocytes [place] Bodies Echinocytes Acanthocytes (Spur) Rouleaux RBC Agglutinates Schistocytes RBC Morph Comment Sezary Cell Sodium (136-145) mmol/L Potassium (3.5-5.1) mmol/L Chloride (98-107) mmol/L Carbon Dioxide (21-32) mmol/L Anion Gap (3-11) BUN (7-18) mg/dl Creatinine (0.6-1.4) mg/dl Est Cr Clr Drug Dosing ml/min Est GFR ( Amer) Est GFR (Non-Af Amer) BUN/Creatinine Ratio (10-20) Glucose (70-99) mg/dl Calcium (8.5-10.1) mg/dl Magnesium (1.8-2.4) mg/dl Total Bilirubin (0.2-1) mg/dl AST (15-37) U/L ALT (12-78) U/L Alkaline Phosphatase (45-117) U/L Total Protein (6.4-8.2) gm/dl Albumin (3.4-5.0) gm/dl Globulin (2.5-4.0) gm/dl Albumin/Globulin Ratio (0.9-2) Urine Color Yellow Urine Appearance Clear (Clear) Urine pH 7.5 (4.5-7.5) Ur Specific [place] 1.020 (1.000-1.030) Urine Protein 1+ H (Negative) Urine Glucose (UA) 3+ H (Negative) Urine Ketones Negative (Negative) Urine Blood Negative (Negative) Urine Nitrite Negative (Negative) Urine Bilirubin Negative (Negative) Urine Urobilinogen Negative (Negative) Ur Leukocyte Esterase Negative (Negative) Urine WBC (Auto) 10-30 H (0-5) /hpf Urine RBC (Auto) 0-4 (0-4) /hpf U Hyaline Cast (Auto) 1-5 (0-5) /lpf U Epithel Cells (Auto) >30 H (0-5) /lpf Urine Bacteria (Auto) 1+ H (Negative) Ur Renal Epithelial Cell Not Reportable Influenza Type A (PCR) Neg for Influ A (Neg) Influenza Type B (PCR) Neg for Influ B (Neg) Blood Type O Negative Antibody Screen NEGATIVE Crossmatch See Detail Imaging Data Radiologist's Impression: Radiology results as stated below per my review and the radiologist's interpretation: XR chest 1V portable CLINICAL HISTORY: cough COMPARISON STUDY: Chest CT October 05, 2018. FINDINGS: Left internal jugular [id number] is in place. There is no pneumothorax or pleural effusion. There is no consolidation or evidence for pulmonary edema. Cardiomediastinal silhouette is normal. IMPRESSION: No acute cardiopulmonary findings. Electronically signed by: Guicho Olivera M.D. 11/23/2018 10:13 AM Blood Pressure Blood Pressure Findings: Normal blood pressure MDM Narrative This is a 28-year-old male who presents to the ED with a chief complaint of dehydration. The patient states that he finished his last course of chemotherapy last week for metastatic testicular cancer. The patient reports that he does frequently get nausea vomiting after chemotherapy and usually requires just fluids. He reports some dizziness. He states that he has had vomiting for a couple of days. The patient's vital signs revealed tachycardia with a heart rate of 135. His temperature is 37.9. The patient is otherwise in no distress. He does report a cough that is productive for just some sputum that is been present for the past couple of days. He denies other infectious symptoms. His blood work reveals a white blood cell count of 0.05. Hemoglobin is 6.3. Platelet count is 23. Sodium is 125 and potassium is 2.7. Calcium is 7.1. BUN is 33 and creatinine is 3.14. Chest x-ray did not show acute process. Urine did not show a obvious infection. The patient was given IV fluids. He was given IV Zofran. He was given a unit of IV red blood cells. The patient was seen by the hospitalist for further inpatient evaluation and care. Impression & Plan Pancytopenia, Hyponatremia, Hypocalcemia, Acute on chronic renal failure Critical Care Time I have personally spent greater than 35 minutes of critical care time in the direct management of this patient. This includes bedside care, interpretation of diagnostic studies, and testing, discussion with consultants, patient, and family members, and other required patient management activities. This 35 minutes is in excess of all separately billable procedures. Critical Care Time: Yes Total Critical Care Time: 35 Discharge Plan Visit Data Chief Complaint: Fever ED Provider: Chance Goldstein Discharge Problem: Pancytopenia, Hyponatremia, Hypocalcemia, Acute on chronic renal failure Patient Disposition: Being Evaluated by Hospitalist Forms Stand Alone Forms: My [facility] Prescriptions Prescriptions: No Action ondansetron HCl [Zofran] 4 mg tablet 4 mg PO Q6H PRN (Reason: nausea and vomiting) Qty: 30 RF: 0 prochlorperazine maleate [Compazine] 10 mg tablet 10 mg PO Q6H PRN (Reason: nausea and vomiting) Qty: 30 RF: 0 morphine [MS Contin] 30 mg tablet extended release 30 mg PO Q8 Qty: 10 RF: 0 oxycodone 10 mg tablet 10 mg PO Q4H PRN (Reason: Pain) Qty: 20 RF: 0 alprazolam [Xanax] 0.5 mg tablet 0.5 mg PO BID RF: 0 dextroamphetamine-amphetamine [Adderall] 15 mg tablet 15 mg PO BID RF: 0 insulin lispro [Admelog SoloStar U-100 Insulin] 100 unit/mL insulin pen See Rx Instructions .ROUTE .COMPLEX RF: 0 multivitamin Tablet 1 tab PO DAILY RF: 0 Tresiba FlexTouch U-100 100 unit/mL (3 mL) insulin pen 21 unit subcut QPM RF: 0 valacyclovir 1 gram tablet 1,000 mg PO DAILY Qty: 30 RF: 4 Referrals Referrals: Kade Kelsey III, MD [Primary Care Provider] - Discharge Problem: Acute on chronic renal failure Qualifiers: Acute renal failure type: unspecified Chronic kidney disease stage: unspecified stage Qualified Code(s): N17.9 - Acute kidney failure, unspecified The scribe's documentation has been prepared under my direction and personally reviewed by me in its entirety. I confirm that the note above accurately reflects all work, treatment, procedures, and medical decision making performed by me.
--- NOTE | 2018-11-23 10:14 | XRay Report ---
XR chest 1V portable CLINICAL HISTORY: cough COMPARISON STUDY: Chest CT October 05, 2018. FINDINGS: Left internal jugular [id number] is in place. There is no pneumothorax or pleural effusi on. There is no consolidation or evidence for pulmonary edema. Cardiomediastinal silhouette is normal . IMPRESSION: No acute cardiopulmonary findings. Electronically signed by: Guicho Olivera M.D. 11/23/2018 10:13 AM
[2018-11-23 10:51] LABS: Albumin Level 2.3 gm/dl (3.4-5.0); BUN Creatinine Ratio 10.6 (10-20); Calcium 7.1 mg/dl (8.5-10.1); Creatinine Clr Calc Pharmacy 27.2 ml/min; Est GFR (African American) 30.1; Est GFR (Non-African American) 25.9; Potassium 2.7 mmol/L (3.5-5.1)
[2018-11-23 10:52] LABS: Hematocrit (blood only) 16.8 % (42-52); Hemoglobin 6.3 g/dL (14.0-18.0); Mean Corpuscular Hemoglobin 31.7 pg (25-34); Mean Corpuscular Hgb Conc 37.5 g/dL (32-36); Mean Corpuscular Volume 84.4 fL (80-100); Mean Platelet Volume 7.1 fL (7.4-10.4); Platelet Count 23 K/uL (130-400); RDW Coefficient of Variation 15.7 % (11.5-14.5); RDW Standard Deviation 48.5 fL (36.4-46.3); Red Blood Count 1.99 M/uL (4.7-6.1); White Blood Count 0.05 K/uL (4.8-10.8)
[2018-11-23 10:54] LABS: Albumin Globulin Ratio 0.6 (0.9-2); Bilirubin,Total 0.5 mg/dl (0.2-1); Globulin 3.8 gm/dl (2.5-4.0); Total Protein 6.1 gm/dl (6.4-8.2)
[2018-11-23] MEDS ORDERED: SODIUM CHLORIDE 0.9% 250 ML IV PRN ×2 (11:14→12:02)
--- NOTE | 2018-11-23 11:28 | History & Physical Report ---
Date of Service November 23, 2018 Assessment & Plan (1) Neutropenic fever: s/p chemotherapy about 7-10 days ago. Has severe pancytopenia from recent chemo. No obvious source for fever on examination. Check blood cx's x 2 sets with 1 set from port. U/a and urine cx. Flu PCR test. Neutropenic precautions. Cefepime 2gm q24h and daptomycin 475mg q48h for empiric coverage. Cont valtrex for HSV prophylaxis. If any diarrhea check c. diff. Present on Admission?: Yes (2) Pancytopenia due to antineoplastic chemotherapy: Severe. Tx 2 units PRBCs - irradiated. Tylenol/benadryl prior. Tx each unit over 3 hours. Hold off on platelet infusion for now. Will speak with heme/onc about giving neupogen if he did not receive neulasta with previous chemo. Formal heme/onc consult requested. Daily CBC w/ diff. Neutropenic precautions. Present on Admission?: Yes (3) Acute kidney failure: Creatinine baseline is about 1.2. At time of recent hospital d/c his creatinine was 2.1. Today 3.1. Likely multifactorial -- prerenal from severe dehyration. Cannot rule out intrinsic factors. Cannot rule out obstruction from tumor burden from cancer. Has right-sided solitary kidney only. Will ask nephrology to see formally. Check u/a now. Check renal u/s now. Check FeNa and urine Na/urine osm given his hyponatremia. Avoid nephrotoxic agents. Strict I's and O's. Present on Admission?: Yes (4) Hyponatremia: Looks like hypovolemic hyponatremia clinically. But check urine Na and urine Osm to be complete. Provide NS hydration. Serial labs. Present on Admission?: Yes (5) Polysubstance abuse: Tobacco, THC. Present on Admission?: Yes (6) Foot fracture, right: Suffered during prior hospital stay. Family bringing boot from home. non-weightbearing status to right foot/leg. Present on Admission?: Yes (7) Mood disorder: Strongly consider SSRI or similar. (8) Tobacco use: nicoderm patch - 21mg/day. debt counselor to quit. Present on Admission?: Yes (9) Type I diabetes mellitus: Anion gap fortunately is normal. no DKA despite dehydration and noncompliance with regimen. pharmacy asked to assist with DM control/management. Present on Admission?: Yes (10) Testicular cancer: s/p chemo 7-10 days ago. stage 4 disease - highly progressive and patient overall doing poorly chronically from such with failure to thrive, frequent hospitalizations, and severe protein calorie malnutrition. Formal heme/onc consult requested. Present on Admission?: Yes (11) Severe protein-calorie malnutrition: Ongoing. Due to stage 4 testicular ca. Present on Admission?: Yes (12) Chronic pain syndrome: Cont home regimen of meds. Present on Admission?: Yes (13) Hypokalemia: KCL 20meq IV x 1 now. Check mag level now. K-dur 40meq PO x 1 now. Serial labs. (14) DVT prophylaxis: SCDs only. Platelets too low to allow safe use of chemical means. Very complicated young man with unfortunate situation and ongoing decline. total time spent 75 minutes code status should be addressed again while here - still wanting all full code measures despite his poor prognosis. History of Present Illness Chief Complaint: fever, dizziness, nausea Primary Care Provider: Kade Kelsey MD 28yo male with stage 4 testicular cancer - admitted a little over 1 week ago for scheduled chemotherapy - presents with high fevers to 101 starting /Saturday, nausea, occasional emesis, occasional diarrhea, ongoing right foot pain due to multiple fractures, dizziness upon standing, sores in his mouth, hypoglycemia (80s), and ongoing poor oral intake. Father has been sick with cough. Brett has had a slight cough as well. He did not take his Tresiba last night, and his last lispro dose was dinner time yesterday (2 units?). His last BSG was 208 this AM at home. Allergies Allergy/AdvReac Type Severity Reaction Status Date / Time No Known Allergies Allergy Verified 11/23/18 09:41 Home Medications Home Medications Medication Instructions Recorded Confirmed Type alprazolam [Xanax] 0.5 mg PO BID 07/25/18 11/23/18 History dextroamphetamine-amphetamine 15 mg PO BID 07/25/18 11/23/18 History [Adderall] insulin lispro [Admelog SoloStar See Rx Instructions .ROUTE .COMPLEX 07/25/18 11/23/18 History U-100 Insulin] multivitamin 1 tab PO DAILY 07/25/18 11/23/18 History Tresiba FlexTouch U-100 21 unit SUBCUT QPM 10/20/18 11/23/18 History valacyclovir 1,000 mg PO DAILY #30 tab 10/24/18 11/23/18 Rx morphine [MS Contin] 30 mg PO Q8 #10 tab 11/18/18 11/23/18 Rx ondansetron HCl [Zofran] 4 mg PO Q6H PRN #30 tab 11/18/18 11/23/18 Rx oxycodone 10 mg PO Q4H PRN #20 tab 11/18/18 11/23/18 Rx prochlorperazine maleate 10 mg PO Q6H PRN #30 tab 11/18/18 11/23/18 Rx [Compazine] Past Med/Surg History Medical History S/p nephrectomy left - 2017; [facility] Polysubstance abuse (Chronic) Elevated LFTs Herpes zoster right forehead Anemia due to antineoplastic chemotherapy Tobacco use (Chronic) Mood disorder (Chronic) Avascular necrosis of bone of left hip CKD (chronic kidney disease), stage II Type I diabetes mellitus (Chronic) Testicular cancer (Chronic) Cancer related pain Metastatic cancer to brain (Chronic) Seizure (Acute) Depression Chronic pain syndrome Severe protein-calorie malnutrition (Chronic) Teratoma of pelvis Surgical History History of nephrectomy History of orchiectomy History of repair of left hip joint Family History Grandfather Heart attack Other Cancer Social History Preferred Language: Cameroonian Communication Ability: Effective Eligibility And Occupancy Interviewer Required: No Beliefs That Will Affect Care: None marital status: Single Current Living Situation: Parent and Significant Other Current Living Situation Comment: parents and fiancee current occupational status: previously employed Other Information That Helps Us Care for You: No 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 Feels Safe at Home: Yes Safety Concerns: Feels Safe At This Time Smoking Status: Current every day smoker Hx Alcohol Use: No Hx Substance Use: Yes Review of Systems Constitutional: + fever, + body aches, + fatigue, + weakness, + anorexia and + weight loss; no chills Eyes: no worsening vision Ear, Nose, Mouth, Throat: + mouth lesions; no ear pain, no sore throat and no dysphagia Respiratory: + cough; no dyspnea on exertion and no sputum production Cardiovascular: + palpitations, + lightheadedness and + edema; no chest pain and no syncope Gastrointestinal: + nausea, + vomiting and + diarrhea/loose stools; no abdominal pain and no blood in stools Genitourinary (Male): no dysuria Musculoskeletal: + joint pain (right knee - chronic) Integumentary: no rash Neurologic: no paralysis and no numbness Psychiatric: + depression hypoglycemia Hematologic / Lymphatic: no easy bruising Physical Exam Vital Signs (Past 24 Hours): Last Vital Signs Temp 37.9 C H 11/23/18 09:15 Pulse 135 H 11/23/18 09:15 Resp 20 11/23/18 09:15 BP 103/63 11/23/18 09:15 Pulse Ox 100 11/23/18 09:15 Constitutional: + ill appearing and + cachectic; + not well developed, + not well nourished, no acute distress and no altered mental status Eyes: + anicteric sclerae and PERRL ENMT: Ears: no EAC abnormality and no TM abnormality Mouth: + oral mucosal abnormality (MM very dry; questionable thrush; no mucositis) Neck: trachea midline, no thyromegaly Respiratory: normal respiratory effort, lungs clear to auscultation Cardiovascular: Rate/Rhythm: + tachycardic Heart Sounds: normal S2; no murmur Vessels: posterior tibial pulses present and dorsalis pedis pulses present; no JVD Extremities: + pedal edema (right foot only) Chest (Breasts): Additional Comments: port - left chest - no erythema, nontender Gastrointestinal (Abdomen): normal bowel sounds, soft, nontender, no hepatosplenomegaly Musculoskeletal: right knee w/o synovitis; left knee normal; right foot with mild localized edema; no gross abnormalities Skin: no rashes, warm and dry old scarring from shingles right forehead Neurologic: deep tendon reflexes 2+ bilaterally and moves all extremities; no focal motor deficits Psychiatric: Orientation: alert and oriented x 3 Mood: + depressed mood Lymphatic: no cervical lymphadenopathy Results & Data Laboratory Results Laboratory Results - last 24 hr 11/23/18 11/23/18 11/23/18 10:18 10:18 11:33 WBC 0.05 L* RBC 1.99 L Hgb 6.3 L* Hct 16.8 L* MCV 84.4 MCH 31.7 MCHC 37.5 H RDW Std Deviation 48.5 H RDW Coeff of Zuleima 15.7 H Plt Count 23 L* MPV 7.1 L Immature Gran % (Auto) Cancelled Neut % (Auto) Cancelled Lymph % (Auto) Cancelled Early % (Auto) Cancelled Eos % (Auto) Cancelled Baso % (Auto) Cancelled Immature Gran # (Auto) Cancelled Neut # (Auto) Cancelled Lymph # (Auto) Cancelled Early # (Auto) Cancelled Eos # (Auto) Cancelled Baso # (Auto) Cancelled Neutrophils % (Manual) Cancelled Band Neutrophils % Cancelled Lymphocytes % (Manual) Cancelled Prolymphocyte % Cancelled Reactive Lymphs % (Man) Cancelled Monocytes % (Manual) Cancelled Eosinophils % (Manual) Cancelled Basophils % (Manual) Cancelled Metamyelocytes % (Man) Cancelled Myelocytes % (Man) Cancelled Promyelocytes % (Man) Cancelled Blast Cells % (Manual) Cancelled Plasma Cell % (Manual) Cancelled Other Cells % Cancelled Nucleated RBC % Cancelled Neutrophils # (Manual) Cancelled Band Neutrophils # Cancelled Total Absolute Neuts Cancelled Lymphocytes # (Manual) Cancelled Prolymphocyte # Cancelled Reactive Lymphs # Cancelled Total Abs Lymphocytes Cancelled Monocytes # (Manual) Cancelled Eosinophils # (Manual) Cancelled Basophils # (Manual) Cancelled Metamyelocytes # (Man) Cancelled Myelocytes # (Manual) Cancelled Promyelocytes # (Man) Cancelled Blast Cells # (Man) Cancelled Plasma Cell # (Manual) Cancelled Other Cells # Cancelled Nucleated RBCs # (Man) Cancelled Hypersegmented Neuts Cancelled Hyposegmented Neuts Cancelled Hypogranular Neuts Cancelled Large Granular Lymphs Cancelled # Lrg Granular Lymphs Cancelled Hairy Cells Cancelled Smudge Cells Cancelled Toxic Granulation Cancelled Toxic Vacuolation Cancelled Dohle Bodies Cancelled Didier Rods Cancelled Platelet Estimate SIGNIFIC DECREASED Hypogranular Platelets Cancelled Clumped Platelets Cancelled Giant Platelets Cancelled Platelet Satelliting Cancelled RBC Morphology Cancelled Polychromasia Cancelled Hypochromasia Cancelled Poikilocytosis Cancelled Basophilic Stippling Cancelled Anisocytosis Cancelled Microcytosis Cancelled Macrocytosis Cancelled Spherocytes Cancelled Pappenheimer Bodies Cancelled Sickle Cells Cancelled Target Cells Cancelled Tear Drop Cells Cancelled Ovalocytes Cancelled Stomatocytes Cancelled Blackburn-Millsap Bodies Cancelled Echinocytes Cancelled Acanthocytes (Spur) Cancelled Rouleaux Cancelled RBC Agglutinates Cancelled Schistocytes Cancelled RBC Morph Comment Cancelled Sezary Cell Cancelled Sodium 126 L Potassium 2.7 L Chloride 98 Carbon Dioxide 17 L Anion Gap 11.0 BUN 33 H Creatinine 3.14 H Est Cr Clr Drug Dosing 27.2 Est GFR ( Amer) 30.1 Est GFR (Non-Af Amer) 25.9 BUN/Creatinine Ratio 10.6 Glucose 182 H Calcium 7.1 L Total Bilirubin 0.5 AST 10 L ALT 11 L Alkaline Phosphatase 83 Total Protein 6.1 L Albumin 2.3 L Globulin 3.8 Albumin/Globulin Ratio 0.6 L Crossmatch See Detail Diagnostic Findings chest x-ray - no infiltrates, port tip in proper positioning Code Status & VTE Plan Code Status level 1 full code VTE Prophylaxis Plan VTE Prophylaxis will be ordered: Yes (1) Foot fracture, right Encounter type: sequela Fracture type: closed Qualified Code(s): S92.901S - Unspecified fracture of right foot, sequela (2) Type I diabetes mellitus Diabetes mellitus complication status: with unspecified complications Qualified Code(s): E10.8 - Type 1 diabetes mellitus with unspecified complications (3) Testicular cancer Descendance of testis: descended Laterality: left Qualified Code(s): C62.12 - Malignant neoplasm of descended left testis (4) Acute kidney failure Acute renal failure type: unspecified Qualified Code(s): N17.9 - Acute kidney failure, unspecified
[2018-11-23] MEDS ORDERED: ACETAMINOPHEN 500 MG TAB PO STA (12:02)
[2018-11-23] MEDS ORDERED: CEFEPIME 2,000 MG in SYRINGE 7.5 ML IV SCH (12:15)
[2018-11-23] MEDS ORDERED: POTASSIUM CHLORIDE 10 MEQ TABCR PO STA (12:15)
[2018-11-23] MEDS ORDERED: PHARMACY GLYCEMIC MGMT CONSULT STA (12:15)
[2018-11-23] MEDS ORDERED: PHARMACY GLYCEMIC MGMT CONSULT PRN (12:22)
[2018-11-23 12:23] LABS: Influenza A virus by PCR Neg for Influ A (Neg); Influenza B virus by PCR Neg for Influ B (Neg)
[2018-11-23] MEDS ORDERED: INSULIN GLARGINE SOLOSTAR 100 UNITS/ML 3 ML PEN SC ONE ×2 (12:30→14:00)
[2018-11-23] MEDS ORDERED: CEFEPIME 2,000 MG in SYRINGE 7.5 ML IV ONE (12:30)
[2018-11-23] MEDS ORDERED: DAPTOmycin 475 MG in SYRINGE 0 ML IV ONE (12:40)
[2018-11-23 12:50] LABS: Appearance Urine Clear (Clear); Bilirubin Urine Negative (Negative); Color Urine Yellow; Epithelial Cell Urine Auto >30 /lpf (0-5); Glucose Urine UA 3+ (Negative); Ketones Urine Negative (Negative); Leukocyte Esterase Urine Negative (Negative); Nitrite Urine Negative (Negative); Urobilinogen Urine Negative (Negative); pH Urine 7.5 (4.5-7.5)
[2018-11-23 12:52] LABS: Protein Urine 1+ (Negative)
--- NOTE | 2018-11-23 13:04 | Nephrology Consultation ---
Date of Consultation November 23, 2018 Assessment & Plan (1) Hyponatremia: (2) Acute kidney failure: 28-year-old gentlemen with history metastatic testicular cancer s/p recent chemotherapy, admitted to the hospital with neutropenic fever volume depletion, acute kidney injury hypokalemia and metabolic acidosis. Reports voiding normally over last few days although p.o. intake has been poor due to ongoing nausea and vomiting after chemotherapy. Considering solitary right kidney and rapid worsening of renal function and history of metastatic disease in abdomen and pelvis, need to rule out the possibility for postrenal obstruction. Possibility for prerenal etiology versus some nephrotoxicity from recent chemotherapy remains. --change IV fluid to D5 with sodium bicarbonate --pending renal ultrasound --check serum sodium in 4 hours, if serum sodium drops, consider tolvaptan 15 milligram x1 dose --continue supportive care, if renal function progressively worsen, would not be a candidate for dialysis considering underlying metastatic cancer Will follow Thank you for allowing me to participate in your patient's care. It was a pleasure to see Brett (3) Metabolic acidosis: (4) Pancytopenia: (5) Neutropenic fever: (6) S/p nephrectomy: (7) Testicular cancer: History of Present Illness Reason for Consultation: ADRI, hyponatremia, solitary right kidney, left nephrectomy History of Present Illness Brett Leigh is a 28 year old male with past medical history significant metastatic testicular carcinoma hypertension admitted to hospital neutropenic fever. Nephrology consult was requested as his found to acute kidney injury metabolic acidosis. Electronic medical records including labs and imaging are reviewed in detail during patient's visit. Brett presented to hospital nausea, vomiting fever and chills admitted with neutropenic fever and currently started on IV cefepime. He was recently discharged from hospital on 11/18/2018 after he received 4 cycle chemotherapy for metastatic testicular cancer. Since discharge he has been having nausea and vomiting and p.o. intake has been poor. Was also started to have diarrhea since yesterday. On admission he was foundto be clinically volume depleted, started on IV fluid. Lab showed acute kidney injury, hyponatremia and metabolic acidosis. During last admission he was found to have acute kidney injury, creatinine slowly increased and on discharge on 11/18/2018 creatinine was 2.1 creatinine 3.1 today. History of recurrent acute kidney injury baseline creatinine seems to be around 0.1-1.3. He reports voiding normally. Sodium was 137 on 11/19/2018 and 126 today. He was initially diagnosed with metastatic stage IV testicular cancer in 2017. He received chemotherapy in 2018 at some point and then lost to follow-up. Recently he was again started on chemotherapy and during last admission he received 4 cycles of chemotherapy with paclitaxel, ifosfamide and cisplatin. He had left nephrectomy in 2018 for pelvic metastatic disease. Allergies Allergy/AdvReac Type Severity Reaction Status Date / Time No Known Allergies Allergy Verified 11/23/18 09:41 Home Medications Home Medications Medication Instructions Recorded Confirmed Type alprazolam [Xanax] 0.5 mg PO BID 07/25/18 11/23/18 History dextroamphetamine-amphetamine 15 mg PO BID 07/25/18 11/23/18 History [Adderall] insulin lispro [Admelog SoloStar See Rx Instructions .ROUTE .COMPLEX 07/25/18 11/23/18 History U-100 Insulin] multivitamin 1 tab PO DAILY 07/25/18 11/23/18 History Tresiba FlexTouch U-100 21 unit SUBCUT QPM 10/20/18 11/23/18 History valacyclovir 1,000 mg PO DAILY #30 tab 10/24/18 11/23/18 Rx morphine [MS Contin] 30 mg PO Q8 #10 tab 11/18/18 11/23/18 Rx ondansetron HCl [Zofran] 4 mg PO Q6H PRN #30 tab 11/18/18 11/23/18 Rx oxycodone 10 mg PO Q4H PRN #20 tab 11/18/18 11/23/18 Rx prochlorperazine maleate 10 mg PO Q6H PRN #30 tab 11/18/18 11/23/18 Rx [Compazine] Patient History Medical History S/p nephrectomy left - 2018; [facility] Polysubstance abuse (Chronic) Elevated LFTs Herpes zoster right forehead Anemia due to antineoplastic chemotherapy Tobacco use (Chronic) Mood disorder (Chronic) Avascular necrosis of bone of left hip CKD (chronic kidney disease), stage II Type I diabetes mellitus (Chronic) Testicular cancer (Chronic) Cancer related pain Metastatic cancer to brain (Chronic) Seizure (Acute) Depression Chronic pain syndrome Severe protein-calorie malnutrition (Chronic) Teratoma of pelvis Surgical History History of nephrectomy History of orchiectomy History of repair of left hip joint Family History Grandfather Heart attack Other Cancer Social History Preferred Language: Libyan Communication Ability: Effective Vice President Investor Relations Required: No Beliefs That Will Affect Care: None marital status: Single Current Living Situation: Parent and Significant Other Current Living Situation Comment: parents and fiancee current occupational status: previously employed Other Information That Helps Us Care for You: 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 Physical Exam Vital Signs (Past 24 Hours): Last Vital Signs Temp 37.9 C H 11/23/18 09:15 Pulse 140 H 11/23/18 11:30 Resp 17 11/23/18 11:30 BP 103/77 11/23/18 11:21 Pulse Ox 100 11/23/18 09:30 Physical Exam: GENERAL: Young male, AAA x 3, ill-appearing, not in any distress. HEENT: Atraumatic, normocephalic. NECK: Supple, no JVD, no carotid bruit appreciated. ENT: No sinus tenderness MOUTH and THROAT: Moist oral mucosa, RESPIRATORY: Normal breathing efforts, clear to auscultation bilaterally, no wheezes or rales. CARDIOVASCULAR: S1, S2 normal, rate rhythm regular. ABDOMEN: Soft, nontender, positive bowel sound. MUSCULOSKELETAL: No CVA tenderness. No joint swelling, erythema or tenderness. Normal range of motion. SKIN: No skin rash EXTREMITY: No lower extremity edema NEURO: No gross focal neurological deficit, speech fluent. PSYCHIATRY: Normal mood and judgment (1) Testicular cancer Descendance of testis: descended Laterality: left Qualified Code(s): C62.12 - Malignant neoplasm of descended left testis (2) Acute kidney failure Acute renal failure type: unspecified Qualified Code(s): N17.9 - Acute kidney failure, unspecified
[2018-11-23 13:07] LABS: Bacteria Urine Automated 1+ (Negative)
[2018-11-23] MEDS ORDERED: PROCHLORPERAZINE MALEATE 10 MG TAB PO PRN (14:09)
[2018-11-23] MEDS: POTASSIUM CHLORIDE / WTR 10 MEQ/100 ML PLCT IV SCH ×4 (14:12→22:26)
[2018-11-23] MEDS: FILGRASTIM 480 MCG/1.6 ML VIAL SC SCH (14:15)
[2018-11-23] MEDS ORDERED: GLUCOSE 40% GEL 15 GM TUBE PO PRN (14:30)
[2018-11-23] MEDS ORDERED: GLUCOSE 10 TABS/TUBE PO PRN (14:30)
[2018-11-23] MEDS ORDERED: NSS + 20MEQ KCL 20 MEQ/1,000 ML BAG IV SCH (14:30)
[2018-11-23] MEDS ORDERED: GLUCAGON FOR INJ 1 MG VIAL SQ PRN (14:30)
[2018-11-23] MEDS: MAGNESIUM SULFATE / D5W 1 GM/100 ML BAG IV SCH ×3 (14:41→17:21)
[2018-11-23] MEDS: NICOTINE 21 MG/24 HR TDSY TD SCH (14:41)
--- NOTE | 2018-11-23 14:47 | Pharmacy Report ---
Pharmacy Glycemic Short Note 2 - Date of Service November 23, 2018 - Glycemic Short BSG Results (Last 24 hours): 11/23/18 10:18 Glucose 182 H OUTPATIENT ANTIDIABETIC REGIMEN: * Tresiba 21 units qPM * Lispro SS (1 unit per 10 grams CHO) ASSESSMENT: * 28 yr old T1DM male well known to the glycemic service admitted for febrile neutropenia. He complains of nausea, vomiting, and dizziness that started two days ago. He has had poor oral intake due to symptoms. * Per discussion with provider, patient missed his dose of Tresiba last evening (his last dose was Saturday evening). Typically for patients who are basal def icient I would partially make up for missed dose, however I am hesitant in this case due to poor oral intake, N/V, and ADRI. I have ordered a one time dose of 20 units of Lantus. Additional can be given this evening if severe hyperglycemia is noted. * During previous admissions, Brett required 15-30 units of basal per day while on dexamethasone. He has required much smaller doses (5-10 units of basal daily) when not on steroids- we have limited BSG data with patient not on steroids. PLAN FOR INPATIENT GLYCEMIC CONTROL: * Basal insulin * Lantus 20 units SQ x 1 * Further dosing to be determined based on BSG trend * Bolus insulin * NovoLog per scale ACHS or Q6hrs while NPO * Goal Range: Low 120 mg/dL - High 160 mg/dL * Correction Factor: 40 mg/dL/unit * Nutritional / Prandial insulin per carb ratio of 1 unit per 15 grams CHO consumed * Add overnight checks for admission day #1
[2018-11-23] MEDS: MoRPHine SULFATE CR 15 MG TABCR PO SCH ×2 (14:49→22:31)
[2018-11-23] MEDS: CLOTRIMAZOLE 10 MG TROCHE BUCCAL SCH ×3 (14:51→23:49)
[2018-11-23] MEDS: INSULIN ASPART 100 UNITS/ML 3 ML PEN SC SCH ×2 (17:21→22:04)
[2018-11-23 19:49] LABS: BUN Creatinine Ratio 10.8 (10-20); Creatinine Clr Calc Pharmacy 27.9 ml/min; Est GFR (African American) 30.9; Est GFR (Non-African American) 26.6; Magnesium 2.2 mg/dl (1.8-2.4); Potassium 2.8 mmol/L (3.5-5.1)
[2018-11-23] MEDS: DEXTROSE 50% 50 ML SYRINGE IV PRN ×2 (20:25→23:43)
[2018-11-23] MEDS ORDERED: POTASSIUM CHLORIDE 10 MEQ TABCR PO ONE (20:45)
[2018-11-23] MEDS ORDERED: D5NSS + 20MEQ KCL 20 MEQ/1,000 ML BAG IV SCH (21:00)
[2018-11-23] MEDS: ALPRAZolam 0.5 MG TABLET PO SCH (21:02)
[2018-11-23] MEDS: ONDANSETRON INJ 2 MG/ML 2 ML VIAL IV PRN (21:10)
--- NOTE | 2018-11-23 22:10 | Ultrasound Report ---
RENAL ULTRASOUND HISTORY: acute renal failure; metastatic testicular ca COMPARISON: Abdomen and pelvis CT 08/22/2018. FINDINGS: Right kidney: 11.4 cm. No hydronephrosis. Normal corticomedullary differentiation and cortical thickn ess. Left kidney: Absent. Bladder: Mild bladder wall thickening. The right ureteral jet is identified. IMPRESSION: 1. Normal right kidney. 2. The left kidney is absent. 3. Mild bladder wall thickening. Recommend correlation with urinalysis to exclude a cystitis Electronically signed by: Zackary Delatorre M.D. 11/23/2018 10:09 PM
[2018-11-23 23:21] LABS: Hematocrit (blood only) 20.5 % (42-52); Hemoglobin 7.6 g/dL (14.0-18.0); Mean Corpuscular Hemoglobin 30.6 pg (25-34); Mean Corpuscular Hgb Conc 37.1 g/dL (32-36); Mean Corpuscular Volume 82.7 fL (80-100); Mean Platelet Volume 7.6 fL (7.4-10.4); Platelet Count 16 K/uL (130-400); RDW Standard Deviation 47.7 fL (36.4-46.3); Red Blood Count 2.48 M/uL (4.7-6.1); White Blood Count 0.08 K/uL (4.8-10.8)
[2018-11-24] MEDS ORDERED: HEPARIN 100 UNIT/ML 5ML FLUSH FLUSH PRN (00:55)
[2018-11-24] MEDS: INSULIN ASPART 100 UNITS/ML 3 ML PEN SC SCH ×6 (01:23→21:26)
[2018-11-24] MEDS: DEXTROSE 50% 50 ML SYRINGE IV PRN ×2 (04:21→20:26)
[2018-11-24] MEDS ORDERED: LEVOFLOXACIN CONSULT ACTIVE PRN (05:38)
[2018-11-24] MEDS ORDERED: LEVOFLOXACIN/D5W 500 MG/100 ML BAG IV SCH (06:00)
[2018-11-24 06:02] LABS: Hematocrit (blood only) 21.2 % (42-52); Hemoglobin 7.7 g/dL (14.0-18.0); Mean Corpuscular Hemoglobin 29.5 pg (25-34); Mean Corpuscular Hgb Conc 36.3 g/dL (32-36); Mean Corpuscular Volume 81.2 fL (80-100); Mean Platelet Volume 8.4 fL (7.4-10.4); Platelet Count 13 K/uL (130-400); RDW Coefficient of Variation 16.4 % (11.5-14.5); RDW Standard Deviation 48.3 fL (36.4-46.3); Red Blood Count 2.61 M/uL (4.7-6.1); White Blood Count 0.02 K/uL (4.8-10.8)
[2018-11-24] MEDS: SODI CHLOR 2.5MEQ/ML 14.6% 77 MEQ, POTASSIUM CHLORIDE 20 MEQ in DEXTROSE 10% 1,000 ML IV SCH ×2 (06:04→15:35)
[2018-11-24] MEDS: MoRPHine SULFATE CR 15 MG TABCR PO SCH ×3 (06:04→20:41)
[2018-11-24 06:18] LABS: BUN Creatinine Ratio 10.6 (10-20); Calcium 7.4 mg/dl (8.5-10.1); Creatinine Clr Calc Pharmacy 28.8 ml/min; Est GFR (African American) 33.2; Est GFR (Non-African American) 28.7; Potassium 3.2 mmol/L (3.5-5.1)
[2018-11-24] MEDS: FILGRASTIM 480 MCG/1.6 ML VIAL SC SCH (07:33)
[2018-11-24] MEDS: VALACYCLOVIR HCL 500 MG TABLET PO SCH (07:34)
[2018-11-24] MEDS: CLOTRIMAZOLE 10 MG TROCHE BUCCAL SCH ×5 (07:34→23:09)
[2018-11-24] MEDS: MULTIVITAMIN TAB PO SCH (07:35)
[2018-11-24] MEDS: NICOTINE 21 MG/24 HR TDSY TD SCH (08:37)
[2018-11-24] MEDS: ALPRAZolam 0.5 MG TABLET PO SCH ×2 (08:45→20:34)
[2018-11-24] MEDS ORDERED: INSULIN GLARGINE SOLOSTAR 100 UNITS/ML 3 ML PEN SC ONE ×2 (09:00→12:00)
--- NOTE | 2018-11-24 10:17 | Family Medicine Progress Note ---
Date of Service November 24, 2018 Assessment & Plan (1) Pancytopenia due to antineoplastic chemotherapy: 28 y/o M with PMH Stage IV testicular cancer with mets to abd presents with fever, N/V, dizziness after finishing up chemo therapy last week found to have neutropenic fever. 1) Neutropenic Fever -s/p chemotherapy last week -Blood cx shows probable pseudomonas species . Urine cx no growth. Probable pseudomonal causes from either port or GI. Will plan to remove mediport. -Cont IV Cefepime and Levofloxacin -Cont valtrex for HSV prophylaxis -afebrile since admission. Neutropenic precautions 2) Pancytopenia -/ to antineoplastic chemotherapy -Has severe pancytopenia: WBC .02, Hgb 7.7, Plt 13. Cont trend -s/p 2 units PRBCs 11/23 -platelet infusion 11/24 1 unit -Heme/onc: Neupogen 480 subQ for a couple of days. Transfuse as necessary, specifically for hemoglobin below 7.5 and platelet count below 15,000 3) Acute kidney failure -Cr baseline is about 1.2. Today 2.89 -Likely pre-renal from severe dehyration -right-sided solitary kidney only -Nephro: Switch IVF to 09/03 NS + 75 mEq NaHCO3. Additional 40 mEq IV potassium. Magnesium and phosphorus daily. 4) R Foot fracture -Suffered during prior hospital stay. Family bringing boot from home. Non- weightbearing status to right foot/leg. 5) Tobacco abuse -cont nicoderm patch - 21mg/day -will legal counsel to quit on d/c 6) Chronic pain syndrome -Cont home regimen of meds 7) Nausea -Increased IV Zofran to 8 mg. Per Heme/Onc recs, will consider with 4 mg piggyback dose of dexamethasone if still present, which was done last time. -Marinol to help with nausea, also appetite stimulant 8) T1DM -glycemic management consult from pharmacy appreciated FULL DVT prophylaxis: SCDs Supervising Physician Co-Signing Physician Notes Attending attestation Pt seen and examined in concert with Dr. Fajardo. In agreement with the documented findings as noted in the resident documentation with any exceptions or additions as noted here. Reports considerable improvement in overall malaise and nausea ("1000x better than yesterday") though still feeling weaker than baseline. Pain well controlled at present. On examination, S1/S2 nl RRR no MCG. Abd NT/ND BS +ve. CTAB. Neutropenic fever w/ h/o metastatic testicular disease on chemotherapy (last dose ~10 days ago) - Heme/onc consultation appreciated. BCx concerning for pseudomonas, currently on levofloxacin and cefepime and clinically improving. Continue valacyclovir Pancytopenia - s/p 2U PRBC. transfusion threshold of 15 for platelets - 2 units today. Neupogen per oncology. Trend ADRI with right solitary kidney - baseline 1.2 - nephrology consultation appreciated - continue hydration, monitor. Avoid nephrotoxic agents Hyponatremia - improving, continue IVF and trend Tobacco use - continue nicotine patch Type 1 DM - glycemic mgmt consult Else see resident documentation as noted. Subjective 28 y/o M found in bed this AM in NAD. States that since admission is actually feeling somewhat better, still some ongoing weakness. Has ongoing explosive diarrhea x1 since yesterday. Otherwise, some decreased appetite, but tolerating PO intake. Some difficulty with ambulation 2/2 R leg boot from fx. No other issues voiding. Pt has no other acute concerns or complaints. Review of Systems All systems reviewed & are unremarkable except as noted in HPI & below Physical Exam Vital Signs (Past 24 Hours): Last Vital Signs Temp 36.8 C 11/24/18 07:15 Pulse 68 11/24/18 09:59 Resp 18 11/24/18 07:15 BP 124/79 11/24/18 09:59 Pulse Ox 98 11/24/18 07:15 Constitutional: + ill appearing and + cachectic Eyes: PERRL, conjunctivae normal, anicteric sclerae ENMT: mouth lesions Respiratory: normal respiratory effort, lungs clear to auscultation Cardiovascular: RRR, no murmur, no edema Chest (Breasts): Additional Comments: L sided port Gastrointestinal (Abdomen): no abd tenderness Musculoskeletal: R leg boot Skin: no rashes, warm and dry Psychiatric: Affect: + depressed affect Results & Data Laboratory Results Laboratory Results - last 24 hr 11/23/18 11/23/18 11/23/18 11:33 18:10 19:06 WBC RBC Hgb Hct MCV MCH MCHC RDW Std Deviation RDW Coeff of Zuleima Plt Count MPV Immature Gran % (Auto) Neut % (Auto) Lymph % (Auto) [place] % (Auto) Eos % (Auto) Baso % (Auto) Immature Gran # (Auto) Neut # (Auto) Lymph # (Auto) [place] # (Auto) Eos # (Auto) Baso # (Auto) Neutrophils % (Manual) Band Neutrophils % Lymphocytes % (Manual) Prolymphocyte % Reactive Lymphs % (Man) Monocytes % (Manual) Eosinophils % (Manual) Basophils % (Manual) Metamyelocytes % (Man) Myelocytes % (Man) Promyelocytes % (Man) Blast Cells % (Manual) Plasma Cell % (Manual) Other Cells % Nucleated RBC % Neutrophils # (Manual) Band Neutrophils # Total Absolute Neuts Lymphocytes # (Manual) Prolymphocyte # Reactive Lymphs # Total Abs Lymphocytes Monocytes # (Manual) Eosinophils # (Manual) Basophils # (Manual) Metamyelocytes # (Man) Myelocytes # (Manual) Promyelocytes # (Man) Blast Cells # (Man) Plasma Cell # (Manual) Other Cells # Nucleated RBCs # (Man) Hypersegmented Neuts Hyposegmented Neuts Hypogranular Neuts Large Granular Lymphs # Lrg Granular Lymphs Hairy Cells Smudge Cells Toxic Granulation Toxic Vacuolation Dohle Bodies Didier Rods Hypogranular Platelets Clumped Platelets Giant Platelets Platelet Satelliting RBC Morphology Polychromasia Hypochromasia Poikilocytosis Basophilic Stippling Anisocytosis Microcytosis Macrocytosis Spherocytes Pappenheimer Bodies Sickle Cells Target Cells Tear Drop Cells Ovalocytes Stomatocytes [place] Bodies Echinocytes Acanthocytes (Spur) Rouleaux RBC Agglutinates Schistocytes RBC Morph Comment Sezary Cell Sodium 131 L Potassium 2.8 L Chloride 104 Carbon Dioxide 17 L Anion Gap 10.0 BUN 33 H Creatinine 3.07 H Est Cr Clr Drug Dosing 27.9 Est GFR ( Amer) 30.9 Est GFR (Non-Af Amer) 26.6 BUN/Creatinine Ratio 10.8 Glucose 78 POC Glucose 112 H Calcium 7.0 L Magnesium 2.2 Random Cortisol Urine Osmolality Ur Random Creatinine Ur Random Sodium Blood Type O Negative Antibody Screen NEGATIVE Crossmatch See Detail 11/23/18 11/23/18 11/23/18 19:06 19:06 19:50 WBC RBC Hgb Hct MCV MCH MCHC RDW Std Deviation RDW Coeff of Zuleima Plt Count MPV Immature Gran % (Auto) Neut % (Auto) Lymph % (Auto) [place] % (Auto) Eos % (Auto) Baso % (Auto) Immature Gran # (Auto) Neut # (Auto) Lymph # (Auto) [place] # (Auto) Eos # (Auto) Baso # (Auto) Neutrophils % (Manual) Band Neutrophils % Lymphocytes % (Manual) Prolymphocyte % Reactive Lymphs % (Man) Monocytes % (Manual) Eosinophils % (Manual) Basophils % (Manual) Metamyelocytes % (Man) Myelocytes % (Man) Promyelocytes % (Man) Blast Cells % (Manual) Plasma Cell % (Manual) Other Cells % Nucleated RBC % Neutrophils # (Manual) Band Neutrophils # Total Absolute Neuts Lymphocytes # (Manual) Prolymphocyte # Reactive Lymphs # Total Abs Lymphocytes Monocytes # (Manual) Eosinophils # (Manual) Basophils # (Manual) Metamyelocytes # (Man) Myelocytes # (Manual) Promyelocytes # (Man) Blast Cells # (Man) Plasma Cell # (Manual) Other Cells # Nucleated RBCs # (Man) Hypersegmented Neuts Hyposegmented Neuts Hypogranular Neuts Large Granular Lymphs # Lrg Granular Lymphs Hairy Cells Smudge Cells Toxic Granulation Toxic Vacuolation Dohle Bodies Didier Rods Hypogranular Platelets Clumped Platelets Giant Platelets Platelet Satelliting RBC Morphology Polychromasia Hypochromasia Poikilocytosis Basophilic Stippling Anisocytosis Microcytosis Macrocytosis Spherocytes Pappenheimer Bodies Sickle Cells Target Cells Tear Drop Cells Ovalocytes Stomatocytes [place] Bodies Echinocytes Acanthocytes (Spur) Rouleaux RBC Agglutinates Schistocytes RBC Morph Comment Sezary Cell Sodium Cancelled Potassium Chloride Carbon Dioxide Anion Gap BUN Creatinine Est Cr Clr Drug Dosing Est GFR ( Amer) Est GFR (Non-Af Amer) BUN/Creatinine Ratio Glucose POC Glucose Calcium Magnesium Random Cortisol 53.94 Urine Osmolality Ur Random Creatinine 22.6 Ur Random Sodium Blood Type Antibody Screen Crossmatch 11/23/18 11/23/18 11/23/18 19:50 19:50 20:20 WBC RBC Hgb Hct MCV MCH MCHC RDW Std Deviation RDW Coeff of Zuleima Plt Count MPV Immature Gran % (Auto) Neut % (Auto) Lymph % (Auto) [place] % (Auto) Eos % (Auto) Baso % (Auto) Immature Gran # (Auto) Neut # (Auto) Lymph # (Auto) [place] # (Auto) Eos # (Auto) Baso # (Auto) Neutrophils % (Manual) Band Neutrophils % Lymphocytes % (Manual) Prolymphocyte % Reactive Lymphs % (Man) Monocytes % (Manual) Eosinophils % (Manual) Basophils % (Manual) Metamyelocytes % (Man) Myelocytes % (Man) Promyelocytes % (Man) Blast Cells % (Manual) Plasma Cell % (Manual) Other Cells % Nucleated RBC % Neutrophils # (Manual) Band Neutrophils # Total Absolute Neuts Lymphocytes # (Manual) Prolymphocyte # Reactive Lymphs # Total Abs Lymphocytes Monocytes # (Manual) Eosinophils # (Manual) Basophils # (Manual) Metamyelocytes # (Man) Myelocytes # (Manual) Promyelocytes # (Man) Blast Cells # (Man) Plasma Cell # (Manual) Other Cells # Nucleated RBCs # (Man) Hypersegmented Neuts Hyposegmented Neuts Hypogranular Neuts Large Granular Lymphs # Lrg Granular Lymphs Hairy Cells Smudge Cells Toxic Granulation Toxic Vacuolation Dohle Bodies Didier Rods Hypogranular Platelets Clumped Platelets Giant Platelets Platelet Satelliting RBC Morphology Polychromasia Hypochromasia Poikilocytosis Basophilic Stippling Anisocytosis Microcytosis Macrocytosis Spherocytes Pappenheimer Bodies Sickle Cells Target Cells Tear Drop Cells Ovalocytes Stomatocytes [place] Bodies Echinocytes Acanthocytes (Spur) Rouleaux RBC Agglutinates Schistocytes RBC Morph Comment Sezary Cell Sodium Potassium Chloride Carbon Dioxide Anion Gap BUN Creatinine Est Cr Clr Drug Dosing Est GFR ( Amer) Est GFR (Non-Af Amer) BUN/Creatinine Ratio Glucose POC Glucose 56 L* Calcium Magnesium Random Cortisol Urine Osmolality 182 L Ur Random Creatinine Ur Random Sodium 19 Blood Type Antibody Screen Crossmatch 11/23/18 11/23/18 11/23/18 20:22 20:55 22:42 WBC 0.08 L* RBC 2.48 L Hgb 7.6 L Hct 20.5 L* MCV 82.7 MCH 30.6 MCHC 37.1 H RDW Std Deviation 47.7 H RDW Coeff of Zuleima 16.0 H Plt Count 16 L* MPV 7.6 Immature Gran % (Auto) Neut % (Auto) Lymph % (Auto) [place] % (Auto) Eos % (Auto) Baso % (Auto) Immature Gran # (Auto) Neut # (Auto) Lymph # (Auto) [place] # (Auto) Eos # (Auto) Baso # (Auto) Neutrophils % (Manual) Band Neutrophils % Lymphocytes % (Manual) Prolymphocyte % Reactive Lymphs % (Man) Monocytes % (Manual) Eosinophils % (Manual) Basophils % (Manual) Metamyelocytes % (Man) Myelocytes % (Man) Promyelocytes % (Man) Blast Cells % (Manual) Plasma Cell % (Manual) Other Cells % Nucleated RBC % Neutrophils # (Manual) Band Neutrophils # Total Absolute Neuts Lymphocytes # (Manual) Prolymphocyte # Reactive Lymphs # Total Abs Lymphocytes Monocytes # (Manual) Eosinophils # (Manual) Basophils # (Manual) Metamyelocytes # (Man) Myelocytes # (Manual) Promyelocytes # (Man) Blast Cells # (Man) Plasma Cell # (Manual) Other Cells # Nucleated RBCs # (Man) Hypersegmented Neuts Hyposegmented Neuts Hypogranular Neuts Large Granular Lymphs # Lrg Granular Lymphs Hairy Cells Smudge Cells Toxic Granulation Toxic Vacuolation Dohle Bodies Didier Rods Hypogranular Platelets Clumped Platelets Giant Platelets Platelet Satelliting RBC Morphology Polychromasia Hypochromasia Poikilocytosis Basophilic Stippling Anisocytosis Microcytosis Macrocytosis Spherocytes Pappenheimer Bodies Sickle Cells Target Cells Tear Drop Cells Ovalocytes Stomatocytes [place] Bodies Echinocytes Acanthocytes (Spur) Rouleaux RBC Agglutinates Schistocytes RBC Morph Comment Sezary Cell Sodium Potassium Chloride Carbon Dioxide Anion Gap BUN Creatinine Est Cr Clr Drug Dosing Est GFR ( Amer) Est GFR (Non-Af Amer) BUN/Creatinine Ratio Glucose POC Glucose 54 L* 84 Calcium Magnesium Random Cortisol Urine Osmolality Ur Random Creatinine Ur Random Sodium Blood Type Antibody Screen Crossmatch 11/23/18 11/24/18 11/24/18 23:37 00:07 04:19 WBC RBC Hgb Hct MCV MCH MCHC RDW Std Deviation RDW Coeff of Zuleima Plt Count MPV Immature Gran % (Auto) Neut % (Auto) Lymph % (Auto) [place] % (Auto) Eos % (Auto) Baso % (Auto) Immature Gran # (Auto) Neut # (Auto) Lymph # (Auto) [place] # (Auto) Eos # (Auto) Baso # (Auto) Neutrophils % (Manual) Band Neutrophils % Lymphocytes % (Manual) Prolymphocyte % Reactive Lymphs % (Man) Monocytes % (Manual) Eosinophils % (Manual) Basophils % (Manual) Metamyelocytes % (Man) Myelocytes % (Man) Promyelocytes % (Man) Blast Cells % (Manual) Plasma Cell % (Manual) Other Cells % Nucleated RBC % Neutrophils # (Manual) Band Neutrophils # Total Absolute Neuts Lymphocytes # (Manual) Prolymphocyte # Reactive Lymphs # Total Abs Lymphocytes Monocytes # (Manual) Eosinophils # (Manual) Basophils # (Manual) Metamyelocytes # (Man) Myelocytes # (Manual) Promyelocytes # (Man) Blast Cells # (Man) Plasma Cell # (Manual) Other Cells # Nucleated RBCs # (Man) Hypersegmented Neuts Hyposegmented Neuts Hypogranular Neuts Large Granular Lymphs # Lrg Granular Lymphs Hairy Cells Smudge Cells Toxic Granulation Toxic Vacuolation Dohle Bodies Didier Rods Hypogranular Platelets Clumped Platelets Giant Platelets Platelet Satelliting RBC Morphology Polychromasia Hypochromasia Poikilocytosis Basophilic Stippling Anisocytosis Microcytosis Macrocytosis Spherocytes Pappenheimer Bodies Sickle Cells Target Cells Tear Drop Cells Ovalocytes Stomatocytes [place] Bodies Echinocytes Acanthocytes (Spur) Rouleaux RBC Agglutinates Schistocytes RBC Morph Comment Sezary Cell Sodium Potassium Chloride Carbon Dioxide Anion Gap BUN Creatinine Est Cr Clr Drug Dosing Est GFR ( Amer) Est GFR (Non-Af Amer) BUN/Creatinine Ratio Glucose POC Glucose 55 L* 100 H 59 L* Calcium Magnesium Random Cortisol Urine Osmolality Ur Random Creatinine Ur Random Sodium Blood Type Antibody Screen Crossmatch 11/24/18 11/24/18 11/24/18 04:41 05:32 05:32 WBC 0.02 L* RBC 2.61 L Hgb 7.7 L Hct 21.2 L MCV 81.2 MCH 29.5 MCHC 36.3 H RDW Std Deviation 48.3 H RDW Coeff of Zuleima 16.4 H Plt Count 13 L* MPV 8.4 Immature Gran % (Auto) Cancelled Neut % (Auto) Cancelled Lymph % (Auto) Cancelled [place] % (Auto) Cancelled Eos % (Auto) Cancelled Baso % (Auto) Cancelled Immature Gran # (Auto) Cancelled Neut # (Auto) Cancelled Lymph # (Auto) Cancelled [place] # (Auto) Cancelled Eos # (Auto) Cancelled Baso # (Auto) Cancelled Neutrophils % (Manual) Cancelled Band Neutrophils % Cancelled Lymphocytes % (Manual) Cancelled Prolymphocyte % Cancelled Reactive Lymphs % (Man) Cancelled Monocytes % (Manual) Cancelled Eosinophils % (Manual) Cancelled Basophils % (Manual) Cancelled Metamyelocytes % (Man) Cancelled Myelocytes % (Man) Cancelled Promyelocytes % (Man) Cancelled Blast Cells % (Manual) Cancelled Plasma Cell % (Manual) Cancelled Other Cells % Cancelled Nucleated RBC % Cancelled Neutrophils # (Manual) Cancelled Band Neutrophils # Cancelled Total Absolute Neuts Cancelled Lymphocytes # (Manual) Cancelled Prolymphocyte # Cancelled Reactive Lymphs # Cancelled Total Abs Lymphocytes Cancelled Monocytes # (Manual) Cancelled Eosinophils # (Manual) Cancelled Basophils # (Manual) Cancelled Metamyelocytes # (Man) Cancelled Myelocytes # (Manual) Cancelled Promyelocytes # (Man) Cancelled Blast Cells # (Man) Cancelled Plasma Cell # (Manual) Cancelled Other Cells # Cancelled Nucleated RBCs # (Man) Cancelled Hypersegmented Neuts Cancelled Hyposegmented Neuts Cancelled Hypogranular Neuts Cancelled Large Granular Lymphs Cancelled # Lrg Granular Lymphs Cancelled Hairy Cells Cancelled Smudge Cells Cancelled Toxic Granulation Cancelled Toxic Vacuolation Cancelled Dohle Bodies Cancelled Didier Rods Cancelled Hypogranular Platelets Cancelled Clumped Platelets Cancelled Giant Platelets Cancelled Platelet Satelliting Cancelled RBC Morphology Cancelled Polychromasia Cancelled Hypochromasia Cancelled Poikilocytosis Cancelled Basophilic Stippling Cancelled Anisocytosis Cancelled Microcytosis Cancelled Macrocytosis Cancelled Spherocytes Cancelled Pappenheimer Bodies Cancelled Sickle Cells Cancelled Target Cells Cancelled Tear Drop Cells Cancelled Ovalocytes Cancelled Stomatocytes Cancelled [place] Bodies Cancelled Echinocytes Cancelled Acanthocytes (Spur) Cancelled Rouleaux Cancelled RBC Agglutinates Cancelled Schistocytes Cancelled RBC Morph Comment Cancelled Sezary Cell Cancelled Sodium 133 L Potassium 3.2 L Chloride 109 H Carbon Dioxide 15 L Anion Gap 9.0 BUN 31 H Creatinine 2.89 H Est Cr Clr Drug Dosing 28.8 Est GFR ( Amer) 33.2 Est GFR (Non-Af Amer) 28.7 BUN/Creatinine Ratio 10.6 Glucose 174 H POC Glucose 110 H Calcium 7.4 L Magnesium Random Cortisol Urine Osmolality Ur Random Creatinine Ur Random Sodium Blood Type Antibody Screen Crossmatch 11/24/18 11/24/18 11/24/18 07:14 11:24 16:05 WBC RBC Hgb Hct MCV MCH MCHC RDW Std Deviation RDW Coeff of Zuleima Plt Count MPV Immature Gran % (Auto) Neut % (Auto) Lymph % (Auto) [place] % (Auto) Eos % (Auto) Baso % (Auto) Immature Gran # (Auto) Neut # (Auto) Lymph # (Auto) [place] # (Auto) Eos # (Auto) Baso # (Auto) Neutrophils % (Manual) Band Neutrophils % Lymphocytes % (Manual) Prolymphocyte % Reactive Lymphs % (Man) Monocytes % (Manual) Eosinophils % (Manual) Basophils % (Manual) Metamyelocytes % (Man) Myelocytes % (Man) Promyelocytes % (Man) Blast Cells % (Manual) Plasma Cell % (Manual) Other Cells % Nucleated RBC % Neutrophils # (Manual) Band Neutrophils # Total Absolute Neuts Lymphocytes # (Manual) Prolymphocyte # Reactive Lymphs # Total Abs Lymphocytes Monocytes # (Manual) Eosinophils # (Manual) Basophils # (Manual) Metamyelocytes # (Man) Myelocytes # (Manual) Promyelocytes # (Man) Blast Cells # (Man) Plasma Cell # (Manual) Other Cells # Nucleated RBCs # (Man) Hypersegmented Neuts Hyposegmented Neuts Hypogranular Neuts Large Granular Lymphs # Lrg Granular Lymphs Hairy Cells Smudge Cells Toxic Granulation Toxic Vacuolation Dohle Bodies Didier Rods Hypogranular Platelets Clumped Platelets Giant Platelets Platelet Satelliting RBC Morphology Polychromasia Hypochromasia Poikilocytosis Basophilic Stippling Anisocytosis Microcytosis Macrocytosis Spherocytes Pappenheimer Bodies Sickle Cells Target Cells Tear Drop Cells Ovalocytes Stomatocytes [place] Bodies Echinocytes Acanthocytes (Spur) Rouleaux RBC Agglutinates Schistocytes RBC Morph Comment Sezary Cell Sodium Potassium Chloride Carbon Dioxide Anion Gap BUN Creatinine Est Cr Clr Drug Dosing Est GFR ( Amer) Est GFR (Non-Af Amer) BUN/Creatinine Ratio Glucose POC Glucose 75 94 73 Calcium Magnesium Random Cortisol Urine Osmolality Ur Random Creatinine Ur Random Sodium Blood Type Antibody Screen Crossmatch Medications Administered Current Inpatient Medications Acetaminophen (Tylenol) 650 mg PO Q4H PRN PRN Reason: Pain or Fever Stop: 12/23/18 14:08 Alprazolam (Xanax) 0.5 mg PO BID [facility] Stop: 12/23/18 20:59 Last Admin: 11/24/18 08:45 Dose: Not Given Documented by: Clotrimazole (Mycelex) 10 mg BUCCAL [id number] RHONDA Stop: 12/03/18 14:59 Last Admin: 11/24/18 15:35 Dose: 10 mg Documented by: Dextrose (Dextrose 50%) 25 - 50 ml IV UD PRN; Protocol PRN Reason: Hypoglycemia Protocol Stop: 12/23/18 14:29 Last Admin: 11/24/18 04:21 Dose: 25 ml Documented by: Dronabinol (Marinol) 2.5 mg PO BID PRN PRN Reason: Nausea And Vomiting Stop: 12/24/18 17:35 Glucagon (Glucagen) 1 mg SQ UD PRN; Protocol PRN Reason: Hypoglycemia Protocol Stop: 12/23/18 14:29 Glucose (Glucose 40%) 15 - 30 gm PO UD PRN; Protocol PRN Reason: Hypoglycemia Protocol Stop: 12/23/18 14:29 Glucose (Dex4 Glucose) 4 - 8 tabs PO UD PRN; Protocol PRN Reason: Hypoglycemia Protocol Stop: 12/23/18 14:29 Heparin Sodium (Porcine) (Heparin Sod 100 Unit/Ml Flush) 5 ml FLUSH PRN PRN PRN Reason: Flush Stop: 12/24/18 00:59 Sodium Chloride (Nss) 250 mls @ 15 mls/hr IV .[id number] PRN PRN Reason: For Transfusion Stop: 12/23/18 12:01 Cefepime HCl 2,000 mg/ Syringe 20 mls @ 5.5 mls/min IV Q24H [facility] Stop: 11/25/18 13:59 Last Admin: 11/24/18 12:55 Dose: 5.5 mls/min Documented by: Sodium Chloride 77 meq/Potassium Chloride 20 meq/Dextrose 1,040.8 mls @ 100 mls/hr IV .[id number] [facility] Stop: 12/24/18 05:44 Last Admin: 11/24/18 15:35 Dose: 100 mls/hr Documented by: Levofloxacin/Dextrose (Levaquin/D5w) 750 mg in 150 mls @ 100 mls/hr IV Q48H RHONDA Stop: 12/10/18 05:59 Sodium Chloride (Nss) 250 mls @ 15 mls/hr IV .[id number] PRN PRN Reason: For Transfusion Stop: 11/24/18 23:59 Sodium Chloride (Nss) 250 mls @ 15 mls/hr IV .[id number] PRN PRN Reason: For Transfusion Stop: 12/24/18 15:48 Insulin Aspart (Novolog Flexpen) 0 units SC ACHS RHONDA Stop: 12/23/18 16:29 Last Admin: 11/24/18 16:37 Dose: Not Given Documented by: Miscellaneous (Remove Nicoderm Patch) 1 ea N/A HS [facility] Stop: 12/23/18 20:59 Last Admin: 11/23/18 22:32 Dose: Not Given Documented by: Miscellaneous (Carbohydrates For Hypoglycemia) 15 - 30 gm PO UD PRN PRN Reason: Hypoglycemia Treatment Stop: 12/23/18 14:29 Miscellaneous Information (Consult Glycemic Management Pharmacy) 1 ea N/A UD PRN PRN Reason: Consult Stop: 12/23/18 12:21 Miscellaneous Information (Consult) 1 ea N/A UD PRN PRN Reason: Consult Stop: 12/24/18 05:37 Morphine Sulfate (Ms Contin) 30 mg PO Q8 RHONDA Stop: 12/07/18 14:29 Last Admin: 11/24/18 12:54 Dose: 30 mg Documented by: Multivitamins (Multivitamin Tab) 1 tab PO DAILY RHONDA Stop: 12/24/18 08:59 Last Admin: 11/24/18 07:35 Dose: 1 tab Documented by: Nicotine (Nicoderm Cq) 21 mg TD QAM RHONDA Stop: 12/23/18 14:08 Last Admin: 11/24/18 08:37 Dose: 21 mg Documented by: Ondansetron HCl (Zofran) 4 mg IV Q6H PRN PRN Reason: Nausea Stop: 12/23/18 14:08 Last Admin: 11/24/18 12:57 Dose: 4 mg Documented by: Oxycodone HCl (Roxicodone Immediate Rel) 10 mg PO Q4H PRN PRN Reason: Pain Stop: 12/07/18 14:08 Prochlorperazine (Compazine) 10 mg PO Q6H PRN PRN Reason: nausea and vomiting Stop: 12/23/18 14:08 Valacyclovir HCl (Valtrex) 1,000 mg PO DAILY [facility] Stop: 12/24/18 08:59 Last Admin: 11/24/18 07:34 Dose: 1,000 mg Documented by: Resident Activity Tracking Resident Involvement: Resident Care Provided Care Provided: Adult Hospital Medicine
--- NOTE | 2018-11-24 10:20 | Consultation Report ---
DATE OF CONSULTATION: 11/24/2018 MEDICAL ONCOLOGY CONSULTATION REASON FOR CONSULTATION: Neutropenic fever. HISTORY OF PRESENT ILLNESS: Brett is a very pleasant 28-year-old gentleman well known to [facility], currently under Dr. Cruz's care for metastatic testicular cancer. Brett just recently completed his fourth cycle of TIP salvage chemotherapy. He was struggling a little bit upon discharge specifically with nausea and vomiting and had been receiving synergistic dexamethasone and Zofran, which was helpful. However, on the day prior to readmission, he developed a low-grade fever and continues to stern with nausea and vomiting and associated dizziness. The patient was admitted to the hospitalist service and tapia cultures were performed, and indeed, his blood cultures are positive for gram-negative bacilli. Identification and sensitivity are incomplete and he is receiving broad spectrum antimicrobials. Primary service is requesting assistance in the care of this very pleasant gentleman with a neutropenic fever and gram-negative bacteremia. PAST MEDICAL HISTORY: Positive for brittle diabetes mellitus, anxiety/metastatic testicular cancer. PAST SURGICAL HISTORY: Includes retroperitoneal lymphadenectomy, nephrectomy and orchiectomy. HOME MEDICATIONS: Include Xanax 0.5 mg p.o. b.i.d., Adderall 50 mg p.o. b.i.d., insulin lispro as per instruction, multivitamin 1 p.o. daily, MS Contin 30 mg p.o. q.8 hours, Compazine 10 mg p.o. q.6 hours p.r.n., Tresiba 21 units subQ q.p.m., breakthrough oxycodone 10 mg p.o. q.4 hours p.r.n., valacyclovir 1000 mg p.o. daily. ALLERGIES: No known drug allergies. SOCIAL HISTORY: The patient is single. He is a cigarette and marijuana smoker presently. FAMILY HISTORY: Noncontributory. REVIEW OF SYSTEMS: CONSTITUTIONAL: Positive for low-grade fevers, chills. He seems to be maintaining his weight and appetite; however, he has been a bit more anorexic with uncontrolled nausea. SKIN: No active lesions or rashes. HEENT: Negative for headaches, lightheadedness. Positive for some dizziness. No acute visual or hearing deficits. No sinus symptoms, sore throat or dysphagia. LYMPHATICS: No history of lymphoproliferative disease. CARDIAC: No history of coronary artery disease, no angina or palpitations. PULMONARY: Negative for COPD. He is not short of breath, dyspneic or orthopneic. No cough or hemoptysis. GASTROINTESTINAL: Negative for abdominal pain, nausea, vomiting, diarrhea or constipation, hematochezia or melena stools. GENITOURINARY: No hematuria, dysuria, or urinary incontinence. PSYCHIATRIC: Positive for anxiety. ENDOCRINE: Positive for uncontrolled diabetes mellitus, negative for thyroid disease. NEUROLOGIC: Negative for seizures, stroke, or migraine headache. HEMATOLOGIC: Positive for treatment-induced cytopenias. PHYSICAL EXAMINATION: GENERAL: An ill-appearing 28-year-old gentleman, in no acute distress. VITAL SIGNS: Temperature 36.8, pulse 122, respiratory rate 18, blood pressure 123/71. SKIN: Without rash or lesion. Negative for ecchymosis or petechiae. HEENT: Atraumatic, normocephalic. Eyes: PERRLA, EOMI. Sclerae nonicteric. No conjunctival injection. Nares: Patent without rhinorrhea or discharge. Throat: Clear. Tongue midline. Mucous membranes are moist. NECK: Supple without JVD or thyromegaly. LYMPHATICS: No cervical, supraclavicular, axillary or inguinal palpable nodes. HEART: Tachy but regular. LUNGS: Clear to auscultation bilaterally. ABDOMEN: Soft, nontender, nondistended, without palpable hepatosplenomegaly. EXTREMITIES: No clubbing, cyanosis or edema. NEUROLOGICAL: He is awake, alert and oriented x3. Cranial nerves II-XII are intact. LABORATORY DATA: WBC count 200, hemoglobin 7.7, platelet count 13,000. Sodium 133, potassium 3.2, chloride 109, carbon dioxide 15, creatinine 2.89, BUN 31, glucose 174, albumin 2.3. IMPRESSION: 1. Neutropenic fever. 2. Gram-negative bacteremia. 3. Acute renal injury. 4. Hypoalbuminemia. 5. Hypokalemia. 6. Metastatic testicular cancer. PLAN: Brett is a pleasant 28-year-old gentleman currently under Dr. Cruz's care for metastatic testicular cancer, status post cycle #4 TIP combination chemotherapy. When he left from prior admission, he was still battling with nausea issues that brought the incorporation of dexamethasone in conjunction with higher dose of Zofran was helpful. I would repeat the same this admission, perhaps giving him Zofran 8 mg with 4 mg piggyback dose of dexamethasone would be helpful. He continues on broad-spectrum gram-negative coverage and await identification and sensitivity. If he has a MediPort, probably it should be removed. Obviously, there is a component of dehydration. His creatinine has gone up significantly and would provide vigorous IV hydration. He has no current pain issues. Continue opioids as ordered. I asked Dr. Poole to go ahead and administer Neupogen 480 subQ for a couple of days. Perhaps transfusional support with packed RBCs and platelets as necessary, specifically for hemoglobin below 7.5 and platelet count below 15,000. We will inform Dr. Cruz of the patient's admission to hospital and ensure an outpatient followup is scheduled. Thank you very much for allowing us to participate in his care.
--- NOTE | 2018-11-24 11:13 | Nephrology Progress Note ---
Date of Service November 24, 2018 Assessment & Plan (1) Hyponatremia: (2) Acute kidney failure: 28-year-old male with metastatic testicular cancer s/p recent chemotherapy admitted to the hospital with neutropenic fever volume depletion, acute kidney injury hypokalemia and metabolic acidosis. Reports voiding normally over last few days although p.o. intake has been poor due to ongoing nausea and vomiting after chemotherapy. Clinical presentation consistent with prerenal azotemia and ATN. Tolerating IVF well. Requires aggressive electrolyte replacement. Suggest switching to isotonic fluids at this time. Also, would encourage HCO3 replacement. Dysnatremia is correcting appropriately. NAGMA associated with renal dysfunction and saline. -- Switch IVF to 1/2 NS + 75 mEq NaHCO3 -- Additional 40 mEq IV potassium -- Monitor metabolic profile with magnesium and phosphorus daily (3) Metabolic acidosis: (4) Pancytopenia: (5) Neutropenic fever: (6) S/p nephrectomy: (7) Testicular cancer: Subjective No acute events overnight. Nausea and vomiting persist. Appetite very poor. No fevers or chills. No abdominal pain. No diarrhea overnight. Brett reports generalized weakness. Constitutional: + fever, + body aches, + fatigue, + weakness, + anorexia and + weight loss; no chills Ear, Nose, Mouth, Throat: + mouth lesions; no ear pain, no sore throat and no dysphagia Respiratory: + cough; no dyspnea on exertion and no sputum production Cardiovascular: + palpitations, + lightheadedness and + edema; no chest pain and no syncope Gastrointestinal: + nausea, + vomiting and + diarrhea/loose stools; no abdominal pain and no blood in stools Musculoskeletal: + joint pain (right knee - chronic) Psychiatric: + depression Physical Exam Vital Signs (Past 24 Hours): Last Vital Signs Temp 36.8 C 11/24/18 07:15 Pulse 68 11/24/18 09:59 Resp 18 11/24/18 07:15 BP 124/79 11/24/18 09:59 Pulse Ox 98 11/24/18 07:15 Constitutional: + ill appearing and + thin; no acute distress Eyes: no scleral abnormality and no corneal abnormality ENMT: Mouth: + dry oral mucous membranes; no oral mucosal abnormality Neck: normal visual inspection and trachea midline Respiratory: normal respiratory effort Auscultation: lungs clear to auscultation bilaterally; no rales and no rhonchi Cardiovascular: Rate/Rhythm: regular rate and regular rhythm Heart Sounds: normal S1 and normal S2; no murmur Gastrointestinal (Abdomen): Inspection/Auscultation: abdomen normal to inspection Percussion/Palpation: abdomen soft; abdomen nontender Musculoskeletal: Extremities: no cyanosis and no clubbing Skin: no rashes and no lesions Neurologic: Motor/Sensory: no tremor and no asterixis Psychiatric: Affect: + depressed affect Results & Data Laboratory Results Laboratory Results - last 24 hr 11/23/18 11/23/18 11/23/18 10:18 11:33 11:35 WBC RBC Hgb Hct MCV MCH MCHC RDW Std Deviation RDW Coeff of Zuleima Plt Count MPV Immature Gran % (Auto) Neut % (Auto) Lymph % (Auto) [place] % (Auto) Eos % (Auto) Baso % (Auto) Immature Gran # (Auto) Neut # (Auto) Lymph # (Auto) [place] # (Auto) Eos # (Auto) Baso # (Auto) Neutrophils % (Manual) Band Neutrophils % Lymphocytes % (Manual) Prolymphocyte % Reactive Lymphs % (Man) Monocytes % (Manual) Eosinophils % (Manual) Basophils % (Manual) Metamyelocytes % (Man) Myelocytes % (Man) Promyelocytes % (Man) Blast Cells % (Manual) Plasma Cell % (Manual) Other Cells % Nucleated RBC % Neutrophils # (Manual) Band Neutrophils # Total Absolute Neuts Lymphocytes # (Manual) Prolymphocyte # Reactive Lymphs # Total Abs Lymphocytes Monocytes # (Manual) Eosinophils # (Manual) Basophils # (Manual) Metamyelocytes # (Man) Myelocytes # (Manual) Promyelocytes # (Man) Blast Cells # (Man) Plasma Cell # (Manual) Other Cells # Nucleated RBCs # (Man) Hypersegmented Neuts Hyposegmented Neuts Hypogranular Neuts Large Granular Lymphs # Lrg Granular Lymphs Hairy Cells Smudge Cells Toxic Granulation Toxic Vacuolation Dohle Bodies Didier Rods Hypogranular Platelets Clumped Platelets Giant Platelets Platelet Satelliting RBC Morphology Polychromasia Hypochromasia Poikilocytosis Basophilic Stippling Anisocytosis Microcytosis Macrocytosis Spherocytes Pappenheimer Bodies Sickle Cells Target Cells Tear Drop Cells Ovalocytes Stomatocytes [place] Bodies Echinocytes Acanthocytes (Spur) Rouleaux RBC Agglutinates Schistocytes RBC Morph Comment Sezary Cell Sodium Potassium Chloride Carbon Dioxide Anion Gap BUN Creatinine Est Cr Clr Drug Dosing Est GFR ( Amer) Est GFR (Non-Af Amer) BUN/Creatinine Ratio Glucose POC Glucose Lactate Calcium Magnesium 1.1 L Random Cortisol Urine Color Urine Appearance Urine pH Ur Specific [place] Urine Protein Urine Glucose (UA) Urine Ketones Urine Blood Urine Nitrite Urine Bilirubin Urine Urobilinogen Ur Leukocyte Esterase Urine WBC (Auto) Urine RBC (Auto) U Hyaline Cast (Auto) U Epithel Cells (Auto) Urine Bacteria (Auto) Ur Renal Epithelial Cell Urine Osmolality Ur Random Creatinine Ur Random Sodium Influenza Type A (PCR) Neg for Influ A Influenza Type B (PCR) Neg for Influ B Blood Type O Negative Antibody Screen NEGATIVE Crossmatch See Detail 11/23/18 11/23/18 11/23/18 11:57 13:19 16:32 WBC RBC Hgb Hct MCV MCH MCHC RDW Std Deviation RDW Coeff of Zuleima Plt Count MPV Immature Gran % (Auto) Neut % (Auto) Lymph % (Auto) [place] % (Auto) Eos % (Auto) Baso % (Auto) Immature Gran # (Auto) Neut # (Auto) Lymph # (Auto) [place] # (Auto) Eos # (Auto) Baso # (Auto) Neutrophils % (Manual) Band Neutrophils % Lymphocytes % (Manual) Prolymphocyte % Reactive Lymphs % (Man) Monocytes % (Manual) Eosinophils % (Manual) Basophils % (Manual) Metamyelocytes % (Man) Myelocytes % (Man) Promyelocytes % (Man) Blast Cells % (Manual) Plasma Cell % (Manual) Other Cells % Nucleated RBC % Neutrophils # (Manual) Band Neutrophils # Total Absolute Neuts Lymphocytes # (Manual) Prolymphocyte # Reactive Lymphs # Total Abs Lymphocytes Monocytes # (Manual) Eosinophils # (Manual) Basophils # (Manual) Metamyelocytes # (Man) Myelocytes # (Manual) Promyelocytes # (Man) Blast Cells # (Man) Plasma Cell # (Manual) Other Cells # Nucleated RBCs # (Man) Hypersegmented Neuts Hyposegmented Neuts Hypogranular Neuts Large Granular Lymphs # Lrg Granular Lymphs Hairy Cells Smudge Cells Toxic Granulation Toxic Vacuolation Dohle Bodies Didier Rods Hypogranular Platelets Clumped Platelets Giant Platelets Platelet Satelliting RBC Morphology Polychromasia Hypochromasia Poikilocytosis Basophilic Stippling Anisocytosis Microcytosis Macrocytosis Spherocytes Pappenheimer Bodies Sickle Cells Target Cells Tear Drop Cells Ovalocytes Stomatocytes [place] Bodies Echinocytes Acanthocytes (Spur) Rouleaux RBC Agglutinates Schistocytes RBC Morph Comment Sezary Cell Sodium Potassium Chloride Carbon Dioxide Anion Gap BUN Creatinine Est Cr Clr Drug Dosing Est GFR ( Amer) Est GFR (Non-Af Amer) BUN/Creatinine Ratio Glucose POC Glucose 155 H Lactate 1.0 Calcium Magnesium Random Cortisol Urine Color Yellow Urine Appearance Clear Urine pH 7.5 Ur Specific [place] 1.020 Urine Protein 1+ H Urine Glucose (UA) 3+ H Urine Ketones Negative Urine Blood Negative Urine Nitrite Negative Urine Bilirubin Negative Urine Urobilinogen Negative Ur Leukocyte Esterase Negative Urine WBC (Auto) 10-30 H Urine RBC (Auto) 0-4 U Hyaline Cast (Auto) 1-5 U Epithel Cells (Auto) >30 H Urine Bacteria (Auto) 1+ H Ur Renal Epithelial Cell Not Reportable Urine Osmolality Ur Random Creatinine Ur Random Sodium Influenza Type A (PCR) Influenza Type B (PCR) Blood Type Antibody Screen Crossmatch 11/23/18 11/23/18 11/23/18 18:10 19:06 19:06 WBC RBC Hgb Hct MCV MCH MCHC RDW Std Deviation RDW Coeff of Zuleima Plt Count MPV Immature Gran % (Auto) Neut % (Auto) Lymph % (Auto) [place] % (Auto) Eos % (Auto) Baso % (Auto) Immature Gran # (Auto) Neut # (Auto) Lymph # (Auto) [place] # (Auto) Eos # (Auto) Baso # (Auto) Neutrophils % (Manual) Band Neutrophils % Lymphocytes % (Manual) Prolymphocyte % Reactive Lymphs % (Man) Monocytes % (Manual) Eosinophils % (Manual) Basophils % (Manual) Metamyelocytes % (Man) Myelocytes % (Man) Promyelocytes % (Man) Blast Cells % (Manual) Plasma Cell % (Manual) Other Cells % Nucleated RBC % Neutrophils # (Manual) Band Neutrophils # Total Absolute Neuts Lymphocytes # (Manual) Prolymphocyte # Reactive Lymphs # Total Abs Lymphocytes Monocytes # (Manual) Eosinophils # (Manual) Basophils # (Manual) Metamyelocytes # (Man) Myelocytes # (Manual) Promyelocytes # (Man) Blast Cells # (Man) Plasma Cell # (Manual) Other Cells # Nucleated RBCs # (Man) Hypersegmented Neuts Hyposegmented Neuts Hypogranular Neuts Large Granular Lymphs # Lrg Granular Lymphs Hairy Cells Smudge Cells Toxic Granulation Toxic Vacuolation Dohle Bodies Didier Rods Hypogranular Platelets Clumped Platelets Giant Platelets Platelet Satelliting RBC Morphology Polychromasia Hypochromasia Poikilocytosis Basophilic Stippling Anisocytosis Microcytosis Macrocytosis Spherocytes Pappenheimer Bodies Sickle Cells Target Cells Tear Drop Cells Ovalocytes Stomatocytes [place] Bodies Echinocytes Acanthocytes (Spur) Rouleaux RBC Agglutinates Schistocytes RBC Morph Comment Sezary Cell Sodium 131 L Potassium 2.8 L Chloride 104 Carbon Dioxide 17 L Anion Gap 10.0 BUN 33 H Creatinine 3.07 H Est Cr Clr Drug Dosing 27.9 Est GFR ( Amer) 30.9 Est GFR (Non-Af Amer) 26.6 BUN/Creatinine Ratio 10.8 Glucose 78 POC Glucose 112 H Lactate Calcium 7.0 L Magnesium 2.2 Random Cortisol 53.94 Urine Color Urine Appearance Urine pH Ur Specific [place] Urine Protein Urine Glucose (UA) Urine Ketones Urine Blood Urine Nitrite Urine Bilirubin Urine Urobilinogen Ur Leukocyte Esterase Urine WBC (Auto) Urine RBC (Auto) U Hyaline Cast (Auto) U Epithel Cells (Auto) Urine Bacteria (Auto) Ur Renal Epithelial Cell Urine Osmolality Ur Random Creatinine Ur Random Sodium Influenza Type A (PCR) Influenza Type B (PCR) Blood Type Antibody Screen Crossmatch 11/23/18 11/23/18 11/23/18 19:06 19:50 19:50 WBC RBC Hgb Hct MCV MCH MCHC RDW Std Deviation RDW Coeff of Zuleima Plt Count MPV Immature Gran % (Auto) Neut % (Auto) Lymph % (Auto) [place] % (Auto) Eos % (Auto) Baso % (Auto) Immature Gran # (Auto) Neut # (Auto) Lymph # (Auto) [place] # (Auto) Eos # (Auto) Baso # (Auto) Neutrophils % (Manual) Band Neutrophils % Lymphocytes % (Manual) Prolymphocyte % Reactive Lymphs % (Man) Monocytes % (Manual) Eosinophils % (Manual) Basophils % (Manual) Metamyelocytes % (Man) Myelocytes % (Man) Promyelocytes % (Man) Blast Cells % (Manual) Plasma Cell % (Manual) Other Cells % Nucleated RBC % Neutrophils # (Manual) Band Neutrophils # Total Absolute Neuts Lymphocytes # (Manual) Prolymphocyte # Reactive Lymphs # Total Abs Lymphocytes Monocytes # (Manual) Eosinophils # (Manual) Basophils # (Manual) Metamyelocytes # (Man) Myelocytes # (Manual) Promyelocytes # (Man) Blast Cells # (Man) Plasma Cell # (Manual) Other Cells # Nucleated RBCs # (Man) Hypersegmented Neuts Hyposegmented Neuts Hypogranular Neuts Large Granular Lymphs # Lrg Granular Lymphs Hairy Cells Smudge Cells Toxic Granulation Toxic Vacuolation Dohle Bodies Didier Rods Hypogranular Platelets Clumped Platelets Giant Platelets Platelet Satelliting RBC Morphology Polychromasia Hypochromasia Poikilocytosis Basophilic Stippling Anisocytosis Microcytosis Macrocytosis Spherocytes Pappenheimer Bodies Sickle Cells Target Cells Tear Drop Cells Ovalocytes Stomatocytes [place] Bodies Echinocytes Acanthocytes (Spur) Rouleaux RBC Agglutinates Schistocytes RBC Morph Comment Sezary Cell Sodium Cancelled Potassium Chloride Carbon Dioxide Anion Gap BUN Creatinine Est Cr Clr Drug Dosing Est GFR ( Amer) Est GFR (Non-Af Amer) BUN/Creatinine Ratio Glucose POC Glucose Lactate Calcium Magnesium Random Cortisol Urine Color Urine Appearance Urine pH Ur Specific [place] Urine Protein Urine Glucose (UA) Urine Ketones Urine Blood Urine Nitrite Urine Bilirubin Urine Urobilinogen Ur Leukocyte Esterase Urine WBC (Auto) Urine RBC (Auto) U Hyaline Cast (Auto) U Epithel Cells (Auto) Urine Bacteria (Auto) Ur Renal Epithelial Cell Urine Osmolality 182 L Ur Random Creatinine 22.6 Ur Random Sodium Influenza Type A (PCR) Influenza Type B (PCR) Blood Type Antibody Screen Crossmatch 11/23/18 11/23/18 11/23/18 19:50 20:20 20:22 WBC RBC Hgb Hct MCV MCH MCHC RDW Std Deviation RDW Coeff of Zuleima Plt Count MPV Immature Gran % (Auto) Neut % (Auto) Lymph % (Auto) [place] % (Auto) Eos % (Auto) Baso % (Auto) Immature Gran # (Auto) Neut # (Auto) Lymph # (Auto) [place] # (Auto) Eos # (Auto) Baso # (Auto) Neutrophils % (Manual) Band Neutrophils % Lymphocytes % (Manual) Prolymphocyte % Reactive Lymphs % (Man) Monocytes % (Manual) Eosinophils % (Manual) Basophils % (Manual) Metamyelocytes % (Man) Myelocytes % (Man) Promyelocytes % (Man) Blast Cells % (Manual) Plasma Cell % (Manual) Other Cells % Nucleated RBC % Neutrophils # (Manual) Band Neutrophils # Total Absolute Neuts Lymphocytes # (Manual) Prolymphocyte # Reactive Lymphs # Total Abs Lymphocytes Monocytes # (Manual) Eosinophils # (Manual) Basophils # (Manual) Metamyelocytes # (Man) Myelocytes # (Manual) Promyelocytes # (Man) Blast Cells # (Man) Plasma Cell # (Manual) Other Cells # Nucleated RBCs # (Man) Hypersegmented Neuts Hyposegmented Neuts Hypogranular Neuts Large Granular Lymphs # Lrg Granular Lymphs Hairy Cells Smudge Cells Toxic Granulation Toxic Vacuolation Dohle Bodies Didier Rods Hypogranular Platelets Clumped Platelets Giant Platelets Platelet Satelliting RBC Morphology Polychromasia Hypochromasia Poikilocytosis Basophilic Stippling Anisocytosis Microcytosis Macrocytosis Spherocytes Pappenheimer Bodies Sickle Cells Target Cells Tear Drop Cells Ovalocytes Stomatocytes [place] Bodies Echinocytes Acanthocytes (Spur) Rouleaux RBC Agglutinates Schistocytes RBC Morph Comment Sezary Cell Sodium Potassium Chloride Carbon Dioxide Anion Gap BUN Creatinine Est Cr Clr Drug Dosing Est GFR ( Amer) Est GFR (Non-Af Amer) BUN/Creatinine Ratio Glucose POC Glucose 56 L* 54 L* Lactate Calcium Magnesium Random Cortisol Urine Color Urine Appearance Urine pH Ur Specific [place] Urine Protein Urine Glucose (UA) Urine Ketones Urine Blood Urine Nitrite Urine Bilirubin Urine Urobilinogen Ur Leukocyte Esterase Urine WBC (Auto) Urine RBC (Auto) U Hyaline Cast (Auto) U Epithel Cells (Auto) Urine Bacteria (Auto) Ur Renal Epithelial Cell Urine Osmolality Ur Random Creatinine Ur Random Sodium 19 Influenza Type A (PCR) Influenza Type B (PCR) Blood Type Antibody Screen Crossmatch 11/23/18 11/23/18 11/23/18 20:55 22:42 23:37 WBC 0.08 L* RBC 2.48 L Hgb 7.6 L Hct 20.5 L* MCV 82.7 MCH 30.6 MCHC 37.1 H RDW Std Deviation 47.7 H RDW Coeff of Zuleima 16.0 H Plt Count 16 L* MPV 7.6 Immature Gran % (Auto) Neut % (Auto) Lymph % (Auto) [place] % (Auto) Eos % (Auto) Baso % (Auto) Immature Gran # (Auto) Neut # (Auto) Lymph # (Auto) [place] # (Auto) Eos # (Auto) Baso # (Auto) Neutrophils % (Manual) Band Neutrophils % Lymphocytes % (Manual) Prolymphocyte % Reactive Lymphs % (Man) Monocytes % (Manual) Eosinophils % (Manual) Basophils % (Manual) Metamyelocytes % (Man) Myelocytes % (Man) Promyelocytes % (Man) Blast Cells % (Manual) Plasma Cell % (Manual) Other Cells % Nucleated RBC % Neutrophils # (Manual) Band Neutrophils # Total Absolute Neuts Lymphocytes # (Manual) Prolymphocyte # Reactive Lymphs # Total Abs Lymphocytes Monocytes # (Manual) Eosinophils # (Manual) Basophils # (Manual) Metamyelocytes # (Man) Myelocytes # (Manual) Promyelocytes # (Man) Blast Cells # (Man) Plasma Cell # (Manual) Other Cells # Nucleated RBCs # (Man) Hypersegmented Neuts Hyposegmented Neuts Hypogranular Neuts Large Granular Lymphs # Lrg Granular Lymphs Hairy Cells Smudge Cells Toxic Granulation Toxic Vacuolation Dohle Bodies Didier Rods Hypogranular Platelets Clumped Platelets Giant Platelets Platelet Satelliting RBC Morphology Polychromasia Hypochromasia Poikilocytosis Basophilic Stippling Anisocytosis Microcytosis Macrocytosis Spherocytes Pappenheimer Bodies Sickle Cells Target Cells Tear Drop Cells Ovalocytes Stomatocytes [place] Bodies Echinocytes Acanthocytes (Spur) Rouleaux RBC Agglutinates Schistocytes RBC Morph Comment Sezary Cell Sodium Potassium Chloride Carbon Dioxide Anion Gap BUN Creatinine Est Cr Clr Drug Dosing Est GFR ( Amer) Est GFR (Non-Af Amer) BUN/Creatinine Ratio Glucose POC Glucose 84 55 L* Lactate Calcium Magnesium Random Cortisol Urine Color Urine Appearance Urine pH Ur Specific [place] Urine Protein Urine Glucose (UA) Urine Ketones Urine Blood Urine Nitrite Urine Bilirubin Urine Urobilinogen Ur Leukocyte Esterase Urine WBC (Auto) Urine RBC (Auto) U Hyaline Cast (Auto) U Epithel Cells (Auto) Urine Bacteria (Auto) Ur Renal Epithelial Cell Urine Osmolality Ur Random Creatinine Ur Random Sodium Influenza Type A (PCR) Influenza Type B (PCR) Blood Type Antibody Screen Crossmatch 11/24/18 11/24/18 11/24/18 00:07 04:19 04:41 WBC RBC Hgb Hct MCV MCH MCHC RDW Std Deviation RDW Coeff of Zuleima Plt Count MPV Immature Gran % (Auto) Neut % (Auto) Lymph % (Auto) [place] % (Auto) Eos % (Auto) Baso % (Auto) Immature Gran # (Auto) Neut # (Auto) Lymph # (Auto) [place] # (Auto) Eos # (Auto) Baso # (Auto) Neutrophils % (Manual) Band Neutrophils % Lymphocytes % (Manual) Prolymphocyte % Reactive Lymphs % (Man) Monocytes % (Manual) Eosinophils % (Manual) Basophils % (Manual) Metamyelocytes % (Man) Myelocytes % (Man) Promyelocytes % (Man) Blast Cells % (Manual) Plasma Cell % (Manual) Other Cells % Nucleated RBC % Neutrophils # (Manual) Band Neutrophils # Total Absolute Neuts Lymphocytes # (Manual) Prolymphocyte # Reactive Lymphs # Total Abs Lymphocytes Monocytes # (Manual) Eosinophils # (Manual) Basophils # (Manual) Metamyelocytes # (Man) Myelocytes # (Manual) Promyelocytes # (Man) Blast Cells # (Man) Plasma Cell # (Manual) Other Cells # Nucleated RBCs # (Man) Hypersegmented Neuts Hyposegmented Neuts Hypogranular Neuts Large Granular Lymphs # Lrg Granular Lymphs Hairy Cells Smudge Cells Toxic Granulation Toxic Vacuolation Dohle Bodies Didier Rods Hypogranular Platelets Clumped Platelets Giant Platelets Platelet Satelliting RBC Morphology Polychromasia Hypochromasia Poikilocytosis Basophilic Stippling Anisocytosis Microcytosis Macrocytosis Spherocytes Pappenheimer Bodies Sickle Cells Target Cells Tear Drop Cells Ovalocytes Stomatocytes [place] Bodies Echinocytes Acanthocytes (Spur) Rouleaux RBC Agglutinates Schistocytes RBC Morph Comment Sezary Cell Sodium Potassium Chloride Carbon Dioxide Anion Gap BUN Creatinine Est Cr Clr Drug Dosing Est GFR ( Amer) Est GFR (Non-Af Amer) BUN/Creatinine Ratio Glucose POC Glucose 100 H 59 L* 110 H Lactate Calcium Magnesium Random Cortisol Urine Color Urine Appearance Urine pH Ur Specific [place] Urine Protein Urine Glucose (UA) Urine Ketones Urine Blood Urine Nitrite Urine Bilirubin Urine Urobilinogen Ur Leukocyte Esterase Urine WBC (Auto) Urine RBC (Auto) U Hyaline Cast (Auto) U Epithel Cells (Auto) Urine Bacteria (Auto) Ur Renal Epithelial Cell Urine Osmolality Ur Random Creatinine Ur Random Sodium Influenza Type A (PCR) Influenza Type B (PCR) Blood Type Antibody Screen Crossmatch 11/24/18 11/24/18 11/24/18 05:32 05:32 07:14 WBC 0.02 L* RBC 2.61 L Hgb 7.7 L Hct 21.2 L MCV 81.2 MCH 29.5 MCHC 36.3 H RDW Std Deviation 48.3 H RDW Coeff of Zuleima 16.4 H Plt Count 13 L* MPV 8.4 Immature Gran % (Auto) Cancelled Neut % (Auto) Cancelled Lymph % (Auto) Cancelled [place] % (Auto) Cancelled Eos % (Auto) Cancelled Baso % (Auto) Cancelled Immature Gran # (Auto) Cancelled Neut # (Auto) Cancelled Lymph # (Auto) Cancelled [place] # (Auto) Cancelled Eos # (Auto) Cancelled Baso # (Auto) Cancelled Neutrophils % (Manual) Cancelled Band Neutrophils % Cancelled Lymphocytes % (Manual) Cancelled Prolymphocyte % Cancelled Reactive Lymphs % (Man) Cancelled Monocytes % (Manual) Cancelled Eosinophils % (Manual) Cancelled Basophils % (Manual) Cancelled Metamyelocytes % (Man) Cancelled Myelocytes % (Man) Cancelled Promyelocytes % (Man) Cancelled Blast Cells % (Manual) Cancelled Plasma Cell % (Manual) Cancelled Other Cells % Cancelled Nucleated RBC % Cancelled Neutrophils # (Manual) Cancelled Band Neutrophils # Cancelled Total Absolute Neuts Cancelled Lymphocytes # (Manual) Cancelled Prolymphocyte # Cancelled Reactive Lymphs # Cancelled Total Abs Lymphocytes Cancelled Monocytes # (Manual) Cancelled Eosinophils # (Manual) Cancelled Basophils # (Manual) Cancelled Metamyelocytes # (Man) Cancelled Myelocytes # (Manual) Cancelled Promyelocytes # (Man) Cancelled Blast Cells # (Man) Cancelled Plasma Cell # (Manual) Cancelled Other Cells # Cancelled Nucleated RBCs # (Man) Cancelled Hypersegmented Neuts Cancelled Hyposegmented Neuts Cancelled Hypogranular Neuts Cancelled Large Granular Lymphs Cancelled # Lrg Granular Lymphs Cancelled Hairy Cells Cancelled Smudge Cells Cancelled Toxic Granulation Cancelled Toxic Vacuolation Cancelled Dohle Bodies Cancelled Didier Rods Cancelled Hypogranular Platelets Cancelled Clumped Platelets Cancelled Giant Platelets Cancelled Platelet Satelliting Cancelled RBC Morphology Cancelled Polychromasia Cancelled Hypochromasia Cancelled Poikilocytosis Cancelled Basophilic Stippling Cancelled Anisocytosis Cancelled Microcytosis Cancelled Macrocytosis Cancelled Spherocytes Cancelled Pappenheimer Bodies Cancelled Sickle Cells Cancelled Target Cells Cancelled Tear Drop Cells Cancelled Ovalocytes Cancelled Stomatocytes Cancelled [place] Bodies Cancelled Echinocytes Cancelled Acanthocytes (Spur) Cancelled Rouleaux Cancelled RBC Agglutinates Cancelled Schistocytes Cancelled RBC Morph Comment Cancelled Sezary Cell Cancelled Sodium 133 L Potassium 3.2 L Chloride 109 H Carbon Dioxide 15 L Anion Gap 9.0 BUN 31 H Creatinine 2.89 H Est Cr Clr Drug Dosing 28.8 Est GFR ( Amer) 33.2 Est GFR (Non-Af Amer) 28.7 BUN/Creatinine Ratio 10.6 Glucose 174 H POC Glucose 75 Lactate Calcium 7.4 L Magnesium Random Cortisol Urine Color Urine Appearance Urine pH Ur Specific [place] Urine Protein Urine Glucose (UA) Urine Ketones Urine Blood Urine Nitrite Urine Bilirubin Urine Urobilinogen Ur Leukocyte Esterase Urine WBC (Auto) Urine RBC (Auto) U Hyaline Cast (Auto) U Epithel Cells (Auto) Urine Bacteria (Auto) Ur Renal Epithelial Cell Urine Osmolality Ur Random Creatinine Ur Random Sodium Influenza Type A (PCR) Influenza Type B (PCR) Blood Type Antibody Screen Crossmatch (1) Acute kidney failure Acute renal failure type: unspecified Qualified Code(s): N17.9 - Acute kidney failure, unspecified (2) Testicular cancer Descendance of testis: descended Laterality: left Qualified Code(s): C62.12 - Malignant neoplasm of descended left testis
[2018-11-24] MEDS: ONDANSETRON INJ 2 MG/ML 2 ML VIAL IV PRN (12:57)
[2018-11-24] MEDS ORDERED: CEFEPIME 2,000 MG in SYRINGE 7.5 ML IV SCH (14:00)
--- NOTE | 2018-11-24 14:49 | Pharmacy Report ---
Pharmacy Glycemic Short Note 2 - Date of Service November 24, 2018 - Glycemic Short BSG Results (Last 24 hours): 11/23/18 11/23/18 11/23/18 16:32 18:10 19:06 Glucose 78 POC Glucose 155 H 112 H 11/23/18 11/23/18 11/23/18 20:20 20:22 20:55 Glucose POC Glucose 56 L* 54 L* 84 11/23/18 11/24/18 11/24/18 23:37 00:07 04:19 Glucose POC Glucose 55 L* 100 H 59 L* 11/24/18 11/24/18 11/24/18 04:41 05:32 07:14 Glucose 174 H POC Glucose 110 H 75 11/24/18 11:24 Glucose POC Glucose 94 OUTPATIENT ANTIDIABETIC REGIMEN: * Tresiba 21 units qPM * Lispro SS (1 unit per 10 grams CHO) ASSESSMENT: 11/24 * Patient's BSGs low overnight continue to be on lower end today, has required 0 units of correctional/prandial * Has dextrose infusion running, low dose of lantus this afternoon * Continue to monitor 11/23 * 28 yr old T1DM male well known to the glycemic service admitted for febrile neutropenia. He complains of nausea, vomiting, and dizziness that started two days ago. He has had poor oral intake due to symptoms. * Per discussion with provider, patient missed his dose of Tresiba last evening (his last dose was Saturday evening). Typically for patients who are basal deficient I would partially make up for missed dose, however I am hesitant in this case due to poor oral intake, N/V, and ADRI. I have ordered a one time dose of 20 units of Lantus. Additional can be given this evening if severe hyperglycemia is noted. * During previous admissions, Brett required 15-30 units of basal per day while on dexamethasone. He has required much smaller doses (5-10 units of basal daily) when not on steroids- we have limited BSG data with patient not on steroids. PLAN FOR INPATIENT GLYCEMIC CONTROL: * Basal insulin * Lantus 10 units SQ x 1 * Further dosing to be determined based on BSG trend * Bolus insulin * NovoLog per scale ACHS or Q6hrs while NPO * Goal Range: Low 120 mg/dL - High 160 mg/dL * Correction Factor: 40 mg/dL/unit * Nutritional / Prandial insulin per carb ratio of 1 unit per 15 grams CHO consumed * Add overnight checks for admission day #1
[2018-11-24] MEDS ORDERED: SODIUM CHLORIDE 0.9% 250 ML IV PRN ×2 (15:02→15:49)
[2018-11-24] MEDS ORDERED: DRONABINOL 2.5 MG CAP PO PRN (17:36)
[2018-11-24] MEDS ORDERED: ONDANSETRON INJ 2 MG/ML 2 ML VIAL IV PRN (18:03)
[2018-11-24] MEDS: POTASSIUM CHLORIDE / WTR 10 MEQ/100 ML PLCT IV SCH ×4 (20:41→23:57)
[2018-11-24] MEDS: SODIUM BICARBONATE 8.4% 75 MEQ in D5W AND 1/2NSS 1,000 ML IV SCH (20:54)
[2018-11-24] MEDS ORDERED: PANTOprazole 40 MG in SYRINGE 0 ML IV ONE (21:38)
[2018-11-24] MEDS: ACETAMINOPHEN 325 MG TAB PO PRN (21:50)
[2018-11-25] MEDS: DEXTROSE 50% 50 ML SYRINGE IV PRN ×2 (00:05→04:06)
[2018-11-25] MEDS ORDERED: DEXAMETHASONE SOD INJ 4 MG/ML VIAL IV ONE (00:14)
[2018-11-25] MEDS: INSULIN ASPART 100 UNITS/ML 3 ML PEN SC SCH ×6 (01:06→21:31)
[2018-11-25] MEDS: ACETAMINOPHEN 325 MG TAB PO PRN (01:16)
[2018-11-25] MEDS: MoRPHine SULFATE CR 15 MG TABCR PO SCH ×3 (05:29→21:09)
[2018-11-25 06:20] LABS: Albumin Level 1.9 gm/dl (3.4-5.0); BUN Creatinine Ratio 9.5 (10-20); Calcium 7.4 mg/dl (8.5-10.1); Creatinine Clr Calc Pharmacy 31.3 ml/min; Est GFR (African American) 36.7; Est GFR (Non-African American) 31.7; Magnesium 1.2 mg/dl (1.8-2.4); Potassium 2.8 mmol/L (3.5-5.1)
[2018-11-25 06:23] LABS: Albumin Globulin Ratio 0.5 (0.9-2); Bilirubin,Total 0.7 mg/dl (0.2-1); Globulin 3.5 gm/dl (2.5-4.0); Phosphorus 2.5 mg/dl (2.5-4.9); Total Protein 5.4 gm/dl (6.4-8.2)
[2018-11-25 06:25] LABS: Platelet Count 18 K/uL (130-400)
[2018-11-25 06:28] LABS: Hematocrit (blood only) 18.4 % (42-52); Hemoglobin 6.7 g/dL (14.0-18.0); Mean Corpuscular Hemoglobin 29.9 pg (25-34); Mean Corpuscular Hgb Conc 36.4 g/dL (32-36); Mean Corpuscular Volume 82.1 fL (80-100); Mean Platelet Volume 9.9 fL (7.4-10.4); RDW Coefficient of Variation 17.1 % (11.5-14.5); RDW Standard Deviation 51.7 fL (36.4-46.3); Red Blood Count 2.24 M/uL (4.7-6.1); White Blood Count 0.05 K/uL (4.8-10.8)
[2018-11-25] MEDS: SODIUM BICARBONATE 8.4% 75 MEQ in D5W AND 1/2NSS 1,000 ML IV SCH ×2 (06:34→22:10)
[2018-11-25] MEDS ORDERED: SODIUM CHLORIDE 0.9% 250 ML IV PRN ×3 (06:35→23:14)
[2018-11-25] MEDS: CLOTRIMAZOLE 10 MG TROCHE BUCCAL SCH ×5 (07:34→23:25)
[2018-11-25] MEDS: SUCRALFATE 1 GM/10 ML UDC PO SCH ×4 (07:34→21:09)
[2018-11-25] MEDS: PANTOprazole 40 MG TAB PO SCH (07:34)
[2018-11-25] MEDS: NICOTINE 21 MG/24 HR TDSY TD SCH (07:35)
[2018-11-25] MEDS: MULTIVITAMIN TAB PO SCH (07:35)
[2018-11-25] MEDS: VALACYCLOVIR HCL 500 MG TABLET PO SCH (07:36)
[2018-11-25] MEDS: ALPRAZolam 0.5 MG TABLET PO SCH ×3 (07:36→21:14)
[2018-11-25] MEDS: POTASSIUM CHLORIDE / WTR 10 MEQ/100 ML PLCT IV SCH ×4 (07:43→10:28)
[2018-11-25] MEDS ORDERED: MAGNESIUM SULFATE / D5W 1 GM/100 ML BAG IV STA (07:49)
[2018-11-25] MEDS: MAGNESIUM SULFATE / D5W 1 GM/100 ML BAG IV SCH ×3 (08:06→09:45)
--- NOTE | 2018-11-25 08:39 | Progress Note ---
DATE: 11/25/2018 DIAGNOSES: 1. Neutropenic fever. 2. Gram-negative bacteremia. 3. Acute renal injury. 4. Hypoalbuminemia. 5. Metastatic testicular cancer. 6. Status post cycle 4 TIP combination chemotherapy. SUBJECTIVE: Brett was seen and examined at bedside this morning. He has been afebrile over the past 24 hours. Tolerating his diet, moving his bowels regularly. He has no complaints of pain today. Blood cultures reporting out possible pseudomonas species. Nursing reports no overnight difficulties. OBJECTIVE: GENERAL: Very pleasant 28-year-old gentleman, awake, alert and appropriate, in no acute distress. VITAL SIGNS: Temperature 37.1, pulse 108, respiratory rate 16, blood pressure 123/66. SKIN: Without rash or lesion. HEENT: Oral mucosa without erythema or ulceration. NECK: Supple. Trachea is midline. HEART: Tachycardic, but regular. LUNGS: Clear to auscultation bilaterally. ABDOMEN: Soft, nontender, nondistended. EXTREMITIES: No clubbing, cyanosis or edema. NEUROLOGIC: Grossly intact. LABORATORY DATA: WBC count 50, hemoglobin 6.7, hematocrit 18.4, platelet count 18,000. Sodium 128, potassium 2.8, chloride 103, carbon dioxide 15, creatinine 2.66, BUN 25, magnesium 1.2, albumin 1.9. IMPRESSION: 1. Hypoalbuminemia. 2. Electrolyte dysfunction. 3. Acute renal injury. 4. Pseudomonal bacteremia. 5. Pancytopenia, attributable to chemotherapy. 6. Metastatic testicular cancer. PLAN: Brett was seen and examined at bedside this morning. He appears relatively bright today. He is tolerating his diet and fever has subsided. With pseudomonal as the possible pathogen, his MediPort should be removed. Continue supportive care including a daily Neupogen 480 mcg subQ daily. I would proceed with transfusion of both platelets and packed RBCs. Replace electrolytes as appropriate, in particular potassium and magnesium with magnesium administered first. Continue antibiotics appropriate for pseudomonal coverage. The patient needs to be followed closely by nephrology and provided adequate IV hydration. Brett's albumin is entering the critical range and should be seen by dietary to improve his protein intake. We will continue to follow Brett on a daily basis. Thank you for assistance in the care of this very pleasant complex gentleman.
--- NOTE | 2018-11-25 09:32 | Nephrology Progress Note ---
Date of Service November 25, 2018 Assessment & Plan (1) Hyponatremia: (2) Acute kidney failure: 28-year-old male with metastatic testicular cancer s/p recent chemotherapy admitted to the hospital with neutropenic fever, volume depletion, acute kidney injury, hypokalemia, and metabolic acidosis. PO intake has been poor due to ongoing nausea and vomiting after chemotherapy. Clinical presentation consistent with dehydration and ATN. Tolerating IVF well. Continues to require aggressive electrolyte replacement. Continue isotonic IV fluid replacement. Additional 80 mEq KCl this morning ordered (40 mEq IV and 40 mEq PO). Suggest BID PO dosing as tolerated. Patient requires HCO3 replacement. Dysnatremia related to hypovolemia, poor solute intake, nausea. Monitor metabolic profile twice daily. NAGMA associated with renal dysfunction and saline. -- Continue 1/2 NS + 75 mEq NaHCO3 -- Monitor metabolic profile with magnesium q 12 hours -- Check phosphorus daily (3) Metabolic acidosis: -- IV replacement as Rx -- Repeat metabolic profile this afternoon (4) Pancytopenia: (5) Neutropenic fever: -- Bld cx + presumed pseudomonas -- Mediport to be removed (6) S/p nephrectomy: (7) Testicular cancer: (8) Hypoalbuminemia: -- Nutrition consult Subjective No acute events overnight. Nausea and vomiting improving. Appetite remains poor. Reports 2 x loose bowel movement yesterday. No fevers or chills. Weakness improving. Blood culture presumptive pseudomonas sp. Review of Systems All systems reviewed & are unremarkable except as noted in HPI & below Physical Exam Vital Signs (Past 24 Hours): Last Vital Signs Temp 37.1 C 11/25/18 07:32 Pulse 102 H 11/25/18 08:00 Resp 16 11/25/18 07:32 BP 123/66 11/25/18 07:32 Pulse Ox 98 11/25/18 07:32 Constitutional: + ill appearing and + thin; no acute distress Eyes: no scleral abnormality and no corneal abnormality ENMT: Mouth: + dry oral mucous membranes; no oral mucosal abnormality Neck: normal visual inspection and trachea midline Respiratory: normal respiratory effort Auscultation: lungs clear to auscultation bilaterally; no rales and no rhonchi Cardiovascular: Rate/Rhythm: regular rate and regular rhythm Heart Sounds: normal S1 and normal S2; no murmur Gastrointestinal (Abdomen): Inspection/Auscultation: abdomen normal to inspection Percussion/Palpation: abdomen soft; abdomen nontender Musculoskeletal: Extremities: no cyanosis and no clubbing Skin: no rashes and no lesions Neurologic: Motor/Sensory: no tremor and no asterixis Psychiatric: Affect: + depressed affect Results & Data Laboratory Results Laboratory Results - last 24 hr 11/23/18 11/24/18 11/24/18 11:33 11:24 16:05 WBC RBC Hgb Hct MCV MCH MCHC RDW Std Deviation RDW Coeff of Zuleima Plt Count MPV Immature Gran % (Auto) Neut % (Auto) Lymph % (Auto) Pierce % (Auto) Eos % (Auto) Baso % (Auto) Immature Gran # (Auto) Neut # (Auto) Lymph # (Auto) Pierce # (Auto) Eos # (Auto) Baso # (Auto) Neutrophils % (Manual) Band Neutrophils % Lymphocytes % (Manual) Prolymphocyte % Reactive Lymphs % (Man) Monocytes % (Manual) Eosinophils % (Manual) Basophils % (Manual) Metamyelocytes % (Man) Myelocytes % (Man) Promyelocytes % (Man) Blast Cells % (Manual) Plasma Cell % (Manual) Other Cells % Nucleated RBC % Neutrophils # (Manual) Band Neutrophils # Total Absolute Neuts Lymphocytes # (Manual) Prolymphocyte # Reactive Lymphs # Total Abs Lymphocytes Monocytes # (Manual) Eosinophils # (Manual) Basophils # (Manual) Metamyelocytes # (Man) Myelocytes # (Manual) Promyelocytes # (Man) Blast Cells # (Man) Plasma Cell # (Manual) Other Cells # Nucleated RBCs # (Man) Hypersegmented Neuts Hyposegmented Neuts Hypogranular Neuts Large Granular Lymphs # Lrg Granular Lymphs Hairy Cells Smudge Cells Toxic Granulation Toxic Vacuolation Dohle Bodies Didier Rods Hypogranular Platelets Clumped Platelets Giant Platelets Platelet Satelliting RBC Morphology Polychromasia Hypochromasia Poikilocytosis Basophilic Stippling Anisocytosis Microcytosis Macrocytosis Spherocytes Pappenheimer Bodies Sickle Cells Target Cells Tear Drop Cells Ovalocytes Stomatocytes [place] Bodies Echinocytes Acanthocytes (Spur) Rouleaux RBC Agglutinates Schistocytes RBC Morph Comment Sezary Cell Sodium Potassium Chloride Carbon Dioxide Anion Gap BUN Creatinine Est Cr Clr Drug Dosing Est GFR ( Amer) Est GFR (Non-Af Amer) BUN/Creatinine Ratio Glucose POC Glucose 94 73 Calcium Phosphorus Magnesium Total Bilirubin AST ALT Alkaline Phosphatase Total Protein Albumin Globulin Albumin/Globulin Ratio Blood Type O Negative Antibody Screen NEGATIVE Crossmatch See Detail 11/24/18 11/24/18 11/24/18 20:13 20:52 23:56 WBC RBC Hgb Hct MCV MCH MCHC RDW Std Deviation RDW Coeff of Zuleima Plt Count MPV Immature Gran % (Auto) Neut % (Auto) Lymph % (Auto) Pierce % (Auto) Eos % (Auto) Baso % (Auto) Immature Gran # (Auto) Neut # (Auto) Lymph # (Auto) Pierce # (Auto) Eos # (Auto) Baso # (Auto) Neutrophils % (Manual) Band Neutrophils % Lymphocytes % (Manual) Prolymphocyte % Reactive Lymphs % (Man) Monocytes % (Manual) Eosinophils % (Manual) Basophils % (Manual) Metamyelocytes % (Man) Myelocytes % (Man) Promyelocytes % (Man) Blast Cells % (Manual) Plasma Cell % (Manual) Other Cells % Nucleated RBC % Neutrophils # (Manual) Band Neutrophils # Total Absolute Neuts Lymphocytes # (Manual) Prolymphocyte # Reactive Lymphs # Total Abs Lymphocytes Monocytes # (Manual) Eosinophils # (Manual) Basophils # (Manual) Metamyelocytes # (Man) Myelocytes # (Manual) Promyelocytes # (Man) Blast Cells # (Man) Plasma Cell # (Manual) Other Cells # Nucleated RBCs # (Man) Hypersegmented Neuts Hyposegmented Neuts Hypogranular Neuts Large Granular Lymphs # Lrg Granular Lymphs Hairy Cells Smudge Cells Toxic Granulation Toxic Vacuolation Dohle Bodies Didier Rods Hypogranular Platelets Clumped Platelets Giant Platelets Platelet Satelliting RBC Morphology Polychromasia Hypochromasia Poikilocytosis Basophilic Stippling Anisocytosis Microcytosis Macrocytosis Spherocytes Pappenheimer Bodies Sickle Cells Target Cells Tear Drop Cells Ovalocytes Stomatocytes [place] Bodies Echinocytes Acanthocytes (Spur) Rouleaux RBC Agglutinates Schistocytes RBC Morph Comment Sezary Cell Sodium Potassium Chloride Carbon Dioxide Anion Gap BUN Creatinine Est Cr Clr Drug Dosing Est GFR ( Amer) Est GFR (Non-Af Amer) BUN/Creatinine Ratio Glucose POC Glucose 61 L* 94 48 L* Calcium Phosphorus Magnesium Total Bilirubin AST ALT Alkaline Phosphatase Total Protein Albumin Globulin Albumin/Globulin Ratio Blood Type Antibody Screen Crossmatch 11/25/18 11/25/18 11/25/18 00:24 03:58 04:35 WBC RBC Hgb Hct MCV MCH MCHC RDW Std Deviation RDW Coeff of Zuleima Plt Count MPV Immature Gran % (Auto) Neut % (Auto) Lymph % (Auto) Pierce % (Auto) Eos % (Auto) Baso % (Auto) Immature Gran # (Auto) Neut # (Auto) Lymph # (Auto) Pierce # (Auto) Eos # (Auto) Baso # (Auto) Neutrophils % (Manual) Band Neutrophils % Lymphocytes % (Manual) Prolymphocyte % Reactive Lymphs % (Man) Monocytes % (Manual) Eosinophils % (Manual) Basophils % (Manual) Metamyelocytes % (Man) Myelocytes % (Man) Promyelocytes % (Man) Blast Cells % (Manual) Plasma Cell % (Manual) Other Cells % Nucleated RBC % Neutrophils # (Manual) Band Neutrophils # Total Absolute Neuts Lymphocytes # (Manual) Prolymphocyte # Reactive Lymphs # Total Abs Lymphocytes Monocytes # (Manual) Eosinophils # (Manual) Basophils # (Manual) Metamyelocytes # (Man) Myelocytes # (Manual) Promyelocytes # (Man) Blast Cells # (Man) Plasma Cell # (Manual) Other Cells # Nucleated RBCs # (Man) Hypersegmented Neuts Hyposegmented Neuts Hypogranular Neuts Large Granular Lymphs # Lrg Granular Lymphs Hairy Cells Smudge Cells Toxic Granulation Toxic Vacuolation Dohle Bodies Didier Rods Hypogranular Platelets Clumped Platelets Giant Platelets Platelet Satelliting RBC Morphology Polychromasia Hypochromasia Poikilocytosis Basophilic Stippling Anisocytosis Microcytosis Macrocytosis Spherocytes Pappenheimer Bodies Sickle Cells Target Cells Tear Drop Cells Ovalocytes Stomatocytes [place] Bodies Echinocytes Acanthocytes (Spur) Rouleaux RBC Agglutinates Schistocytes RBC Morph Comment Sezary Cell Sodium Potassium Chloride Carbon Dioxide Anion Gap BUN Creatinine Est Cr Clr Drug Dosing Est GFR ( Amer) Est GFR (Non-Af Amer) BUN/Creatinine Ratio Glucose POC Glucose 72 49 L* 146 H Calcium Phosphorus Magnesium Total Bilirubin AST ALT Alkaline Phosphatase Total Protein Albumin Globulin Albumin/Globulin Ratio Blood Type Antibody Screen Crossmatch 11/25/18 11/25/18 11/25/18 05:21 05:21 07:30 WBC 0.05 L* RBC 2.24 L Hgb 6.7 L* Hct 18.4 L* MCV 82.1 MCH 29.9 MCHC 36.4 H RDW Std Deviation 51.7 H RDW Coeff of Zuleima 17.1 H Plt Count 18 L* MPV 9.9 Immature Gran % (Auto) Cancelled Neut % (Auto) Cancelled Lymph % (Auto) Cancelled Pierce % (Auto) Cancelled Eos % (Auto) Cancelled Baso % (Auto) Cancelled Immature Gran # (Auto) Cancelled Neut # (Auto) Cancelled Lymph # (Auto) Cancelled Pierce # (Auto) Cancelled Eos # (Auto) Cancelled Baso # (Auto) Cancelled Neutrophils % (Manual) Cancelled Band Neutrophils % Cancelled Lymphocytes % (Manual) Cancelled Prolymphocyte % Cancelled Reactive Lymphs % (Man) Cancelled Monocytes % (Manual) Cancelled Eosinophils % (Manual) Cancelled Basophils % (Manual) Cancelled Metamyelocytes % (Man) Cancelled Myelocytes % (Man) Cancelled Promyelocytes % (Man) Cancelled Blast Cells % (Manual) Cancelled Plasma Cell % (Manual) Cancelled Other Cells % Cancelled Nucleated RBC % Cancelled Neutrophils # (Manual) Cancelled Band Neutrophils # Cancelled Total Absolute Neuts Cancelled Lymphocytes # (Manual) Cancelled Prolymphocyte # Cancelled Reactive Lymphs # Cancelled Total Abs Lymphocytes Cancelled Monocytes # (Manual) Cancelled Eosinophils # (Manual) Cancelled Basophils # (Manual) Cancelled Metamyelocytes # (Man) Cancelled Myelocytes # (Manual) Cancelled Promyelocytes # (Man) Cancelled Blast Cells # (Man) Cancelled Plasma Cell # (Manual) Cancelled Other Cells # Cancelled Nucleated RBCs # (Man) Cancelled Hypersegmented Neuts Cancelled Hyposegmented Neuts Cancelled Hypogranular Neuts Cancelled Large Granular Lymphs Cancelled # Lrg Granular Lymphs Cancelled Hairy Cells Cancelled Smudge Cells Cancelled Toxic Granulation Cancelled Toxic Vacuolation Cancelled Dohle Bodies Cancelled Didier Rods Cancelled Hypogranular Platelets Cancelled Clumped Platelets Cancelled Giant Platelets Cancelled Platelet Satelliting Cancelled RBC Morphology Cancelled Polychromasia Cancelled Hypochromasia Cancelled Poikilocytosis Cancelled Basophilic Stippling Cancelled Anisocytosis Cancelled Microcytosis Cancelled Macrocytosis Cancelled Spherocytes Cancelled Pappenheimer Bodies Cancelled Sickle Cells Cancelled Target Cells Cancelled Tear Drop Cells Cancelled Ovalocytes Cancelled Stomatocytes Cancelled [place] Bodies Cancelled Echinocytes Cancelled Acanthocytes (Spur) Cancelled Rouleaux Cancelled RBC Agglutinates Cancelled Schistocytes Cancelled RBC Morph Comment Cancelled Sezary Cell Cancelled Sodium 128 L Potassium 2.8 L Chloride 103 Carbon Dioxide 15 L Anion Gap 10.0 BUN 25 H Creatinine 2.66 H Est Cr Clr Drug Dosing 31.3 Est GFR ( Amer) 36.7 Est GFR (Non-Af Amer) 31.7 BUN/Creatinine Ratio 9.5 L Glucose 117 H POC Glucose 129 H Calcium 7.4 L Phosphorus 2.5 Magnesium 1.2 L Total Bilirubin 0.7 AST 23 ALT 17 Alkaline Phosphatase 117 Total Protein 5.4 L Albumin 1.9 L Globulin 3.5 Albumin/Globulin Ratio 0.5 L Blood Type Antibody Screen Crossmatch (1) Acute kidney failure Acute renal failure type: unspecified Qualified Code(s): N17.9 - Acute kidney failure, unspecified (2) Testicular cancer Descendance of testis: descended Laterality: left Qualified Code(s): C62.12 - Malignant neoplasm of descended left testis
[2018-11-25] MEDS ORDERED: POTASSIUM CHLORIDE 20 MEQ TABCR PO ONE (10:00)
[2018-11-25] MEDS: CEFEPIME 2,000 MG in SYRINGE 7.5 ML IV SCH ×2 (11:07→23:25)
[2018-11-25] MEDS: POTASSIUM CHLORIDE / WTR 20 MEQ/100 ML PLCT IV SCH ×4 (11:12→16:29)
--- NOTE | 2018-11-25 11:19 | Surgery Consultation ---
Date of Consultation November 25, 2018 Assessment & Plan (1) Testicular cancer: 28 year-old with metastatic testicular cancer who is s/p 4th cycle of chemotherapy with severe pancytopenia and gram- bacteremia with pseudomonas. WBC 0.05K today, Hemoglobin 6.7, Platelets 18K. Receiving 2 units of PRBCs today. Plan: Plan for aport removal today given bacteremia Transfuse RBCs as ordered continue IV fluids for hydration NPO continue medical management Dr. Major has seen patient agrees with above. (2) Bacteremia: Plan as above History of Present Illness Reason for Consultation: Aport removal, bacteremia Requesting Physician: Juan Antonio Moura Attending Physician: Carroll George MD History of Present Illness Brett is a 28 year-old male with metastatic testicular cancer who presented to emergency room with fever, nausea, vomiting, and dizziness. He is sp cycle 4 of chemotherapy. He is severely pancytopenic and blood cultures showed gram negative bacteremia with pseudomonas. He has aport present for chemotherapy. Our services were consulted for aport removal. He had a tmax of 38.8 this morning at 01:17. He is currently receiving IV Antibiotics and he has been transfused two units of PRBCs on 11/23/18 and another 2 units ordered for today given Hemoglobin of 6.7. Allergies Allergy/AdvReac Type Severity Reaction Status Date / Time No Known Allergies Allergy Verified 11/23/18 09:41 Home Medications Home Medications Medication Instructions Recorded Confirmed Type alprazolam [Xanax] 0.5 mg PO BID 07/25/18 11/23/18 History dextroamphetamine-amphetamine 15 mg PO BID 07/25/18 11/23/18 History [Adderall] insulin lispro [Admelog SoloStar See Rx Instructions .ROUTE .COMPLEX 07/25/18 11/23/18 History U-100 Insulin] multivitamin 1 tab PO DAILY 07/25/18 11/23/18 History Tresiba FlexTouch U-100 21 unit SUBCUT QPM 10/20/18 11/23/18 History valacyclovir 1,000 mg PO DAILY #30 tab 10/24/18 11/23/18 Rx morphine [MS Contin] 30 mg PO Q8 #10 tab 11/18/18 11/23/18 Rx ondansetron HCl [Zofran] 4 mg PO Q6H PRN #30 tab 11/18/18 11/23/18 Rx oxycodone 10 mg PO Q4H PRN #20 tab 11/18/18 11/23/18 Rx prochlorperazine maleate 10 mg PO Q6H PRN #30 tab 11/18/18 11/23/18 Rx [Compazine] Patient History Medical History S/p nephrectomy left - 2017; [facility] Polysubstance abuse (Chronic) Elevated LFTs Herpes zoster right forehead Anemia due to antineoplastic chemotherapy Tobacco use (Chronic) Mood disorder (Chronic) Avascular necrosis of bone of left hip CKD (chronic kidney disease), stage II Type I diabetes mellitus (Chronic) Testicular cancer (Chronic) Cancer related pain Metastatic cancer to brain (Chronic) Seizure (Acute) Depression Chronic pain syndrome Severe protein-calorie malnutrition (Chronic) Teratoma of pelvis Surgical History History of nephrectomy History of orchiectomy History of repair of left hip joint Family History Grandfather Heart attack Other Cancer Social History Communication Ability: Effective Beliefs That Will Affect Care: None marital status: Single Current Living Situation: Parent and Significant Other Current Living Situation Comment: parents and fiancee current occupational status: previously employed Other Information That Helps Us Care for You: No 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 Feels Safe at Home: Yes Safety Concerns: Feels Safe At This Time Smoking Status: Current every day smoker Hx Alcohol Use: No Hx Substance Use: Yes Review of Systems Constitutional: as per Subjective / HPI Physical Exam Vital Signs (Past 24 Hours): Last Vital Signs Temp 36.3 C L 11/25/18 10:38 Pulse 125 H 11/25/18 10:53 Resp 16 11/25/18 10:53 BP 129/79 11/25/18 10:53 Pulse Ox 99 11/25/18 10:53 Constitutional: + thin and + cachectic; no acute distress and no altered mental status Respiratory: normal respiratory effort; no respiratory distress Chest (Breasts): Chest: + vascular access device or port Skin: no rashes, warm and dry + pallor Psychiatric: A+Ox3, euthymic affect Results & Data Laboratory Results 11/25/18 11/25/18 11/25/18 Range/Units 07:30 05:21 05:21 WBC 0.05 L* (4.8-10.8) K/uL RBC 2.24 L (4.7-6.1) M/uL Hgb 6.7 L* (14.0-18.0) g/dL Hct 18.4 L* (42-52) % MCV 82.1 (80-100) fL MCH 29.9 (25-34) pg MCHC 36.4 H (32-36) g/dL RDW Std Deviation 51.7 H (36.4-46.3) fL RDW Coeff of Zuleima 17.1 H (11.5-14.5) % Plt Count 18 L* (130-400) K/uL MPV 9.9 (7.4-10.4) fL Immature Gran % (Auto) Cancelled Neut % (Auto) Cancelled Lymph % (Auto) Cancelled [place] % (Auto) Cancelled Eos % (Auto) Cancelled Baso % (Auto) Cancelled Immature Gran # (Auto) Cancelled Neut # (Auto) Cancelled Lymph # (Auto) Cancelled [place] # (Auto) Cancelled Eos # (Auto) Cancelled Baso # (Auto) Cancelled Neutrophils % (Manual) Cancelled Band Neutrophils % Cancelled Lymphocytes % (Manual) Cancelled Prolymphocyte % Cancelled Reactive Lymphs % (Man) Cancelled Monocytes % (Manual) Cancelled Eosinophils % (Manual) Cancelled Basophils % (Manual) Cancelled Metamyelocytes % (Man) Cancelled Myelocytes % (Man) Cancelled Promyelocytes % (Man) Cancelled Blast Cells % (Manual) Cancelled Plasma Cell % (Manual) Cancelled Other Cells % Cancelled Nucleated RBC % Cancelled Neutrophils # (Manual) Cancelled Band Neutrophils # Cancelled Total Absolute Neuts Cancelled Lymphocytes # (Manual) Cancelled Prolymphocyte # Cancelled Reactive Lymphs # Cancelled Total Abs Lymphocytes Cancelled Monocytes # (Manual) Cancelled Eosinophils # (Manual) Cancelled Basophils # (Manual) Cancelled Metamyelocytes # (Man) Cancelled Myelocytes # (Manual) Cancelled Promyelocytes # (Man) Cancelled Blast Cells # (Man) Cancelled Plasma Cell # (Manual) Cancelled Other Cells # Cancelled Nucleated RBCs # (Man) Cancelled Hypersegmented Neuts Cancelled Hyposegmented Neuts Cancelled Hypogranular Neuts Cancelled Large Granular Lymphs Cancelled # Lrg Granular Lymphs Cancelled Hairy Cells Cancelled Smudge Cells Cancelled Toxic Granulation Cancelled Toxic Vacuolation Cancelled Dohle Bodies Cancelled Didier Rods Cancelled Hypogranular Platelets Cancelled Clumped Platelets Cancelled Giant Platelets Cancelled Platelet Satelliting Cancelled RBC Morphology Cancelled Polychromasia Cancelled Hypochromasia Cancelled Poikilocytosis Cancelled Basophilic Stippling Cancelled Anisocytosis Cancelled Microcytosis Cancelled Macrocytosis Cancelled Spherocytes Cancelled Pappenheimer Bodies Cancelled Sickle Cells Cancelled Target Cells Cancelled Tear Drop Cells Cancelled Ovalocytes Cancelled Stomatocytes Cancelled [place] Bodies Cancelled Echinocytes Cancelled Acanthocytes (Spur) Cancelled Rouleaux Cancelled RBC Agglutinates Cancelled Schistocytes Cancelled RBC Morph Comment Cancelled Sezary Cell Cancelled Sodium 128 L (136-145) mmol/L Potassium 2.8 L (3.5-5.1) mmol/L Chloride 103 (98-107) mmol/L Carbon Dioxide 15 L (21-32) mmol/L Anion Gap 10.0 (3-11) BUN 25 H (7-18) mg/dl Creatinine 2.66 H (0.6-1.4) mg/dl Est Cr Clr Drug Dosing 31.3 ml/min Est GFR ( Amer) 36.7 Est GFR (Non-Af Amer) 31.7 BUN/Creatinine Ratio 9.5 L (10-20) Glucose 117 H (70-99) mg/dl POC Glucose 129 H (70-99) Calcium 7.4 L (8.5-10.1) mg/dl Phosphorus 2.5 (2.5-4.9) mg/dl Magnesium 1.2 L (1.8-2.4) mg/dl Total Bilirubin 0.7 (0.2-1) mg/dl AST 23 (15-37) U/L ALT 17 (12-78) U/L Alkaline Phosphatase 117 (45-117) U/L Total Protein 5.4 L (6.4-8.2) gm/dl Albumin 1.9 L (3.4-5.0) gm/dl Globulin 3.5 (2.5-4.0) gm/dl Albumin/Globulin Ratio 0.5 L (0.9-2) Blood Type Antibody Screen Crossmatch 11/25/18 11/25/18 11/25/18 Range/Units 04:35 03:58 00:24 WBC (4.8-10.8) K/uL RBC (4.7-6.1) M/uL Hgb (14.0-18.0) g/dL Hct (42-52) % MCV (80-100) fL MCH (25-34) pg MCHC (32-36) g/dL RDW Std Deviation (36.4-46.3) fL RDW Coeff of Zuleima (11.5-14.5) % Plt Count (130-400) K/uL MPV (7.4-10.4) fL Immature Gran % (Auto) Neut % (Auto) Lymph % (Auto) [place] % (Auto) Eos % (Auto) Baso % (Auto) Immature Gran # (Auto) Neut # (Auto) Lymph # (Auto) [place] # (Auto) Eos # (Auto) Baso # (Auto) Neutrophils % (Manual) Band Neutrophils % Lymphocytes % (Manual) Prolymphocyte % Reactive Lymphs % (Man) Monocytes % (Manual) Eosinophils % (Manual) Basophils % (Manual) Metamyelocytes % (Man) Myelocytes % (Man) Promyelocytes % (Man) Blast Cells % (Manual) Plasma Cell % (Manual) Other Cells % Nucleated RBC % Neutrophils # (Manual) Band Neutrophils # Total Absolute Neuts Lymphocytes # (Manual) Prolymphocyte # Reactive Lymphs # Total Abs Lymphocytes Monocytes # (Manual) Eosinophils # (Manual) Basophils # (Manual) Metamyelocytes # (Man) Myelocytes # (Manual) Promyelocytes # (Man) Blast Cells # (Man) Plasma Cell # (Manual) Other Cells # Nucleated RBCs # (Man) Hypersegmented Neuts Hyposegmented Neuts Hypogranular Neuts Large Granular Lymphs # Lrg Granular Lymphs Hairy Cells Smudge Cells Toxic Granulation Toxic Vacuolation Dohle Bodies Didier Rods Hypogranular Platelets Clumped Platelets Giant Platelets Platelet Satelliting RBC Morphology Polychromasia Hypochromasia Poikilocytosis Basophilic Stippling Anisocytosis Microcytosis Macrocytosis Spherocytes Pappenheimer Bodies Sickle Cells Target Cells Tear Drop Cells Ovalocytes Stomatocytes [place]eker Bodies Echinocytes Acanthocytes (Spur) Rouleaux RBC Agglutinates Schistocytes RBC Morph Comment Sezary Cell Sodium (136-145) mmol/L Potassium (3.5-5.1) mmol/L Chloride (98-107) mmol/L Carbon Dioxide (21-32) mmol/L Anion Gap (3-11) BUN (7-18) mg/dl Creatinine (0.6-1.4) mg/dl Est Cr Clr Drug Dosing ml/min Est GFR ( Amer) Est GFR (Non-Af Amer) BUN/Creatinine Ratio (10-20) Glucose (70-99) mg/dl POC Glucose 146 H 49 L* 72 (70-99) Calcium (8.5-10.1) mg/dl Phosphorus (2.5-4.9) mg/dl Magnesium (1.8-2.4) mg/dl Total Bilirubin (0.2-1) mg/dl AST (15-37) U/L ALT (12-78) U/L Alkaline Phosphatase (45-117) U/L Total Protein (6.4-8.2) gm/dl Albumin (3.4-5.0) gm/dl Globulin (2.5-4.0) gm/dl Albumin/Globulin Ratio (0.9-2) Blood Type Antibody Screen Crossmatch 11/24/18 11/24/18 11/24/18 Range/Units 23:56 20:52 20:13 WBC (4.8-10.8) K/uL RBC (4.7-6.1) M/uL Hgb (14.0-18.0) g/dL Hct (42-52) % MCV (80-100) fL MCH (25-34) pg MCHC (32-36) g/dL RDW Std Deviation (36.4-46.3) fL RDW Coeff of Zuleima (11.5-14.5) % Plt Count (130-400) K/uL MPV (7.4-10.4) fL Immature Gran % (Auto) Neut % (Auto) Lymph % (Auto) [place] % (Auto) Eos % (Auto) Baso % (Auto) Immature Gran # (Auto) Neut # (Auto) Lymph # (Auto) [place] # (Auto) Eos # (Auto) Baso # (Auto) Neutrophils % (Manual) Band Neutrophils % Lymphocytes % (Manual) Prolymphocyte % Reactive Lymphs % (Man) Monocytes % (Manual) Eosinophils % (Manual) Basophils % (Manual) Metamyelocytes % (Man) Myelocytes % (Man) Promyelocytes % (Man) Blast Cells % (Manual) Plasma Cell % (Manual) Other Cells % Nucleated RBC % Neutrophils # (Manual) Band Neutrophils # Total Absolute Neuts Lymphocytes # (Manual) Prolymphocyte # Reactive Lymphs # Total Abs Lymphocytes Monocytes # (Manual) Eosinophils # (Manual) Basophils # (Manual) Metamyelocytes # (Man) Myelocytes # (Manual) Promyelocytes # (Man) Blast Cells # (Man) Plasma Cell # (Manual) Other Cells # Nucleated RBCs # (Man) Hypersegmented Neuts Hyposegmented Neuts Hypogranular Neuts Large Granular Lymphs # Lrg Granular Lymphs Hairy Cells Smudge Cells Toxic Granulation Toxic Vacuolation Dohle Bodies Didier Rods Hypogranular Platelets Clumped Platelets Giant Platelets Platelet Satelliting RBC Morphology Polychromasia Hypochromasia Poikilocytosis Basophilic Stippling Anisocytosis Microcytosis Macrocytosis Spherocytes Pappenheimer Bodies Sickle Cells Target Cells Tear Drop Cells Ovalocytes Stomatocytes [place]-Meeker Bodies Echinocytes Acanthocytes (Spur) Rouleaux RBC Agglutinates Schistocytes RBC Morph Comment Sezary Cell Sodium (136-145) mmol/L Potassium (3.5-5.1) mmol/L Chloride (98-107) mmol/L Carbon Dioxide (21-32) mmol/L Anion Gap (3-11) BUN (7-18) mg/dl Creatinine (0.6-1.4) mg/dl Est Cr Clr Drug Dosing ml/min Est GFR ( Amer) Est GFR (Non-Af Amer) BUN/Creatinine Ratio (10-20) Glucose (70-99) mg/dl POC Glucose 48 L* 94 61 L* (70-99) Calcium (8.5-10.1) mg/dl Phosphorus (2.5-4.9) mg/dl Magnesium (1.8-2.4) mg/dl Total Bilirubin (0.2-1) mg/dl AST (15-37) U/L ALT (12-78) U/L Alkaline Phosphatase (45-117) U/L Total Protein (6.4-8.2) gm/dl Albumin (3.4-5.0) gm/dl Globulin (2.5-4.0) gm/dl Albumin/Globulin Ratio (0.9-2) Blood Type Antibody Screen Crossmatch 11/24/18 11/24/18 11/23/18 Range/Units 16:05 11:24 11:33 WBC (4.8-10.8) K/uL RBC (4.7-6.1) M/uL Hgb (14.0-18.0) g/dL Hct (42-52) % MCV (80-100) fL MCH (25-34) pg MCHC (32-36) g/dL RDW Std Deviation (36.4-46.3) fL RDW Coeff of Zuleima (11.5-14.5) % Plt Count (130-400) K/uL MPV (7.4-10.4) fL Immature Gran % (Auto) Neut % (Auto) Lymph % (Auto) [place] % (Auto) Eos % (Auto) Baso % (Auto) Immature Gran # (Auto) Neut # (Auto) Lymph # (Auto) [place] # (Auto) Eos # (Auto) Baso # (Auto) Neutrophils % (Manual) Band Neutrophils % Lymphocytes % (Manual) Prolymphocyte % Reactive Lymphs % (Man) Monocytes % (Manual) Eosinophils % (Manual) Basophils % (Manual) Metamyelocytes % (Man) Myelocytes % (Man) Promyelocytes % (Man) Blast Cells % (Manual) Plasma Cell % (Manual) Other Cells % Nucleated RBC % Neutrophils # (Manual) Band Neutrophils # Total Absolute Neuts Lymphocytes # (Manual) Prolymphocyte # Reactive Lymphs # Total Abs Lymphocytes Monocytes # (Manual) Eosinophils # (Manual) Basophils # (Manual) Metamyelocytes # (Man) Myelocytes # (Manual) Promyelocytes # (Man) Blast Cells # (Man) Plasma Cell # (Manual) Other Cells # Nucleated RBCs # (Man) Hypersegmented Neuts Hyposegmented Neuts Hypogranular Neuts Large Granular Lymphs # Lrg Granular Lymphs Hairy Cells Smudge Cells Toxic Granulation Toxic Vacuolation Dohle Bodies Didier Rods Hypogranular Platelets Clumped Platelets Giant Platelets Platelet Satelliting RBC Morphology Polychromasia Hypochromasia Poikilocytosis Basophilic Stippling Anisocytosis Microcytosis Macrocytosis Spherocytes Pappenheimer Bodies Sickle Cells Target Cells Tear Drop Cells Ovalocytes Stomatocytes [place]-Meeker Bodies Echinocytes Acanthocytes (Spur) Rouleaux RBC Agglutinates Schistocytes RBC Morph Comment Sezary Cell Sodium (136-145) mmol/L Potassium (3.5-5.1) mmol/L Chloride (98-107) mmol/L Carbon Dioxide (21-32) mmol/L Anion Gap (3-11) BUN (7-18) mg/dl Creatinine (0.6-1.4) mg/dl Est Cr Clr Drug Dosing ml/min Est GFR ( Amer) Est GFR (Non-Af Amer) BUN/Creatinine Ratio (10-20) Glucose (70-99) mg/dl POC Glucose 73 94 (70-99) Calcium (8.5-10.1) mg/dl Phosphorus (2.5-4.9) mg/dl Magnesium (1.8-2.4) mg/dl Total Bilirubin (0.2-1) mg/dl AST (15-37) U/L ALT (12-78) U/L Alkaline Phosphatase (45-117) U/L Total Protein (6.4-8.2) gm/dl Albumin (3.4-5.0) gm/dl Globulin (2.5-4.0) gm/dl Albumin/Globulin Ratio (0.9-2) Blood Type O Negative Antibody Screen NEGATIVE Crossmatch See Detail (1) Testicular cancer Descendance of testis: descended Laterality: left Qualified Code(s): C62.12 - Malignant neoplasm of descended left testis
[2018-11-25] MEDS ORDERED: INSULIN GLARGINE SOLOSTAR 100 UNITS/ML 3 ML PEN SC SCH (12:00)
[2018-11-25] MEDS ORDERED: MAGNESIUM SULFATE / D5W 1 GM/100 ML BAG IV SCH (12:00)
[2018-11-25] MEDS: OXYCODONE HCL IR 5 MG TAB (IMMEDIATE RELEASE) PO PRN ×2 (12:17→21:08)
--- NOTE | 2018-11-25 13:38 | Pharmacy Report ---
Pharmacy Glycemic Short Note 2 - Date of Service November 25, 2018 - Glycemic Short BSG Results (Last 24 hours): 11/24/18 11/24/18 11/24/18 16:05 20:13 20:52 Glucose POC Glucose 73 61 L* 94 11/24/18 11/25/18 11/25/18 23:56 00:24 03:58 Glucose POC Glucose 48 L* 72 49 L* 11/25/18 11/25/18 11/25/18 04:35 05:21 07:30 Glucose 117 H POC Glucose 146 H 129 H 11/25/18 11:36 Glucose POC Glucose 228 H OUTPATIENT ANTIDIABETIC REGIMEN: * Tresiba 21 units qPM * Lispro SS (1 unit per 10 grams CHO) ASSESSMENT: 11/25 * Fluids reduced from D10 to D5+1/2NS+bicarb overnight, hypoglycemic overnight (49), up to 228 at lunch * Gave 5 units of lantus at lunchtime (half of yesterdays dose) * ?remove dextrose from current fluid and run separately at lower rate? Would need some form of glucose to prevent ketosis * Will continue overnight glucose checks 11/24 * Patient's BSGs low overnight continue to be on lower end today, has required 0 units of correctional/prandial * Has dextrose infusion running, low dose of lantus this afternoon * Continue to monitor 11/23 * 28 yr old T1DM male well known to the glycemic service admitted for febrile neutropenia. He complains of nausea, vomiting, and dizziness that started two days ago. He has had poor oral intake due to symptoms. * Per discussion with provider, patient missed his dose of Tresiba last evening (his last dose was Saturday evening). Typically for patients who are basal deficient I would partially make up for missed dose, however I am hesitant in this case due to poor oral intake, N/V, and ADRI. I have ordered a one time dose of 20 units of Lantus. Additional can be given this evening if severe hyperglycemia is noted. * During previous admissions, Brett required 15-30 units of basal per day while on dexamethasone. He has required much smaller doses (5-10 units of basal daily) when not on steroids- we have limited BSG data with patient not on steroids. PLAN FOR INPATIENT GLYCEMIC CONTROL: * Basal insulin * Lantus 5 units SQ x 1 * Further dosing to be determined based on BSG trend * Bolus insulin * NovoLog per scale ACHS or Q6hrs while NPO * Goal Range: Low 120 mg/dL - High 160 mg/dL * Correction Factor: 40 mg/dL/unit * Nutritional / Prandial insulin per carb ratio of 1 unit per 20 grams CHO consumed * Add overnight checks
--- NOTE | 2018-11-25 14:57 | Family Medicine Progress Note ---
Date of Service November 25, 2018 Assessment & Plan (1) Pancytopenia due to antineoplastic chemotherapy: 28 y/o M with PMH Stage IV testicular cancer with mets to abd presents with fever, N/V, dizziness after finishing up chemo therapy last week found to have neutropenic fever. 1) Neutropenic Fever -s/p chemotherapy last week -Blood cx x2 shows pseudomonas, pansensitive. Urine cx no growth. Probable pseudomonal causes from either port or GI. Will plan to remove mediport today (Dr. Major). -Cont IV Cefepime and Levofloxacin. Will consult ID about monotherapy in setting of immunocomprised pt with Pseudomonas. -Cont valtrex for HSV prophylaxis -afebrile since admission. Neutropenic precautions 2) Pancytopenia -2/2 to antineoplastic chemotherapy -Has severe pancytopenia: WBC .05, Hgb 6.7, Plt 18. Cont trend -s/p 2 units PRBCs 11/23, 11/25 -platelet infusion 11/24 1 unit, 2 units 11/25 -Heme/onc: Cont Neupogen 480 subQ. Transfuse as necessary, specifically for hemoglobin below 7.5 and platelet count below 15,000 3) Acute kidney failure -Cr baseline is about 1.2. Today 2.66 -Likely pre-renal from severe dehyration -right-sided solitary kidney only -Nephro: Cont 1 NS + 75 mEq NaHCO3. Magnesium and phosphorus daily. 4) R Foot fracture -Suffered during prior hospital stay. Family bringing boot from home. Non- weightbearing status to right foot/leg. 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 Per Heme/Onc recs, will consider with 4 mg piggyback dose of dexamethasone if still present, which was done last time. -Marinol to help with nausea, also appetite stimulant 8) T1DM -glycemic management consult from pharmacy appreciated 10) Electrolyte Abnormality -K 2.8 s/p 4 bags 11/24--> additional 4 bags KCl this AM -Mg 1.2 --> 3 bags MgSO4 this AM -Cont trend above with BMP and Mg q12, daily phosphorus -hypoalbuminemia- dietary consult placed to assist with increased protein intake FULL DVT prophylaxis: SCDs Supervising Physician Co-Signing Physician Notes Attending attestation Pt seen and examined in concert with Dr. Fajardo. In agreement with the documented findings as noted in the resident documentation with any exceptions or additions as noted here. Responding well to antiemetic therapy with decreased nausea and vomiting, also having decreased bowel movements which are better formed. Overall fatigue persists, though stable. On examination, S1/S2 nl RRR no MCG. CTAB. Abd NT/ND BS+ve Neutropenic fever with pseudomonas bacteremia - general surgery consultation for mediport removal today - ID consultation for abx duration and choice with pansensitive C/S. Continue valacyclovir Pancytopenia - heme/onc consultation appreciated - transfusion 2 units PRBC and PLT today - transfusion thresholds as noted Acute renal failure with multiple electrolyte abnormalities - nephrology consultation appreciated - trend Cr, improving. Continue IVF as noted. Nausea/vomiting - continue ondansetron and marinol Else see resident documentation as noted. Subjective 28 y/o M found in bed this AM in NAD. States that since yesterday, feeling no different. Has decreased diarrhea. N/V improved since yesterday after medications changes made. Appetite is just ok, tolerating PO intake. Still some ongoing weakness. Some difficulty with ambulation 2/2 R leg boot from fx. No other issues voiding. Pt has no other acute concerns or complaints. Ok with plan for port removal today, anxious about OR and this was extensively discussed with pt. Physical Exam Vital Signs (Past 24 Hours): Last Vital Signs Temp 36.6 C 11/25/18 12:59 Pulse 102 H 11/25/18 12:59 Resp 16 11/25/18 12:59 BP 119/81 11/25/18 12:59 Pulse Ox 98 11/25/18 12:59 Constitutional: + ill appearing and + cachectic Eyes: PERRL, conjunctivae normal, anicteric sclerae Respiratory: normal respiratory effort, lungs clear to auscultation Cardiovascular: RRR, no murmur, no edema Chest (Breasts): Additional Comments: Aport on L side upper chest Gastrointestinal (Abdomen): normal bowel sounds, soft, nontender, no hepatosplenomegaly Musculoskeletal: R leg boot Skin: no rashes, warm and dry Psychiatric: Affect: + depressed affect Results & Data Laboratory Results Laboratory Results - last 24 hr 11/23/18 11/24/18 11/24/18 11:33 16:05 20:13 WBC RBC Hgb Hct MCV MCH MCHC RDW Std Deviation RDW Coeff of Zuleima Plt Count MPV Immature Gran % (Auto) Neut % (Auto) Lymph % (Auto) [place] % (Auto) Eos % (Auto) Baso % (Auto) Immature Gran # (Auto) Neut # (Auto) Lymph # (Auto) [place] # (Auto) Eos # (Auto) Baso # (Auto) Neutrophils % (Manual) Band Neutrophils % Lymphocytes % (Manual) Prolymphocyte % Reactive Lymphs % (Man) Monocytes % (Manual) Eosinophils % (Manual) Basophils % (Manual) Metamyelocytes % (Man) Myelocytes % (Man) Promyelocytes % (Man) Blast Cells % (Manual) Plasma Cell % (Manual) Other Cells % Nucleated RBC % Neutrophils # (Manual) Band Neutrophils # Total Absolute Neuts Lymphocytes # (Manual) Prolymphocyte # Reactive Lymphs # Total Abs Lymphocytes Monocytes # (Manual) Eosinophils # (Manual) Basophils # (Manual) Metamyelocytes # (Man) Myelocytes # (Manual) Promyelocytes # (Man) Blast Cells # (Man) Plasma Cell # (Manual) Other Cells # Nucleated RBCs # (Man) Hypersegmented Neuts Hyposegmented Neuts Hypogranular Neuts Large Granular Lymphs # Lrg Granular Lymphs Hairy Cells Smudge Cells Toxic Granulation Toxic Vacuolation Dohle Bodies Didier Rods Hypogranular Platelets Clumped Platelets Giant Platelets Platelet Satelliting RBC Morphology Polychromasia Hypochromasia Poikilocytosis Basophilic Stippling Anisocytosis Microcytosis Macrocytosis Spherocytes Pappenheimer Bodies Sickle Cells Target Cells Tear Drop Cells Ovalocytes Stomatocytes [place]-S[place] Bodies Echinocytes Acanthocytes (Spur) Rouleaux RBC Agglutinates Schistocytes RBC Morph Comment Sezary Cell Sodium Potassium Chloride Carbon Dioxide Anion Gap BUN Creatinine Est Cr Clr Drug Dosing Est GFR ( Amer) Est GFR (Non-Af Amer) BUN/Creatinine Ratio Glucose POC Glucose 73 61 L* Calcium Phosphorus Magnesium Total Bilirubin AST ALT Alkaline Phosphatase Total Protein Albumin Globulin Albumin/Globulin Ratio Blood Type O Negative Antibody Screen NEGATIVE Crossmatch See Detail 11/24/18 11/24/18 11/25/18 20:52 23:56 00:24 WBC RBC Hgb Hct MCV MCH MCHC RDW Std Deviation RDW Coeff of Zuleima Plt Count MPV Immature Gran % (Auto) Neut % (Auto) Lymph % (Auto) [place] % (Auto) Eos % (Auto) Baso % (Auto) Immature Gran # (Auto) Neut # (Auto) Lymph # (Auto) [place] # (Auto) Eos # (Auto) Baso # (Auto) Neutrophils % (Manual) Band Neutrophils % Lymphocytes % (Manual) Prolymphocyte % Reactive Lymphs % (Man) Monocytes % (Manual) Eosinophils % (Manual) Basophils % (Manual) Metamyelocytes % (Man) Myelocytes % (Man) Promyelocytes % (Man) Blast Cells % (Manual) Plasma Cell % (Manual) Other Cells % Nucleated RBC % Neutrophils # (Manual) Band Neutrophils # Total Absolute Neuts Lymphocytes # (Manual) Prolymphocyte # Reactive Lymphs # Total Abs Lymphocytes Monocytes # (Manual) Eosinophils # (Manual) Basophils # (Manual) Metamyelocytes # (Man) Myelocytes # (Manual) Promyelocytes # (Man) Blast Cells # (Man) Plasma Cell # (Manual) Other Cells # Nucleated RBCs # (Man) Hypersegmented Neuts Hyposegmented Neuts Hypogranular Neuts Large Granular Lymphs # Lrg Granular Lymphs Hairy Cells Smudge Cells Toxic Granulation Toxic Vacuolation Dohle Bodies Didier Rods Hypogranular Platelets Clumped Platelets Giant Platelets Platelet Satelliting RBC Morphology Polychromasia Hypochromasia Poikilocytosis Basophilic Stippling Anisocytosis Microcytosis Macrocytosis Spherocytes Pappenheimer Bodies Sickle Cells Target Cells Tear Drop Cells Ovalocytes Stomatocytes [place] Bodies Echinocytes Acanthocytes (Spur) Rouleaux RBC Agglutinates Schistocytes RBC Morph Comment Sezary Cell Sodium Potassium Chloride Carbon Dioxide Anion Gap BUN Creatinine Est Cr Clr Drug Dosing Est GFR ( Amer) Est GFR (Non-Af Amer) BUN/Creatinine Ratio Glucose POC Glucose 94 48 L* 72 Calcium Phosphorus Magnesium Total Bilirubin AST ALT Alkaline Phosphatase Total Protein Albumin Globulin Albumin/Globulin Ratio Blood Type Antibody Screen Crossmatch 11/25/18 11/25/18 11/25/18 03:58 04:35 05:21 WBC 0.05 L* RBC 2.24 L Hgb 6.7 L* Hct 18.4 L* MCV 82.1 MCH 29.9 MCHC 36.4 H RDW Std Deviation 51.7 H RDW Coeff of Zuleima 17.1 H Plt Count 18 L* MPV 9.9 Immature Gran % (Auto) Cancelled Neut % (Auto) Cancelled Lymph % (Auto) Cancelled [place] % (Auto) Cancelled Eos % (Auto) Cancelled Baso % (Auto) Cancelled Immature Gran # (Auto) Cancelled Neut # (Auto) Cancelled Lymph # (Auto) Cancelled [place] # (Auto) Cancelled Eos # (Auto) Cancelled Baso # (Auto) Cancelled Neutrophils % (Manual) Cancelled Band Neutrophils % Cancelled Lymphocytes % (Manual) Cancelled Prolymphocyte % Cancelled Reactive Lymphs % (Man) Cancelled Monocytes % (Manual) Cancelled Eosinophils % (Manual) Cancelled Basophils % (Manual) Cancelled Metamyelocytes % (Man) Cancelled Myelocytes % (Man) Cancelled Promyelocytes % (Man) Cancelled Blast Cells % (Manual) Cancelled Plasma Cell % (Manual) Cancelled Other Cells % Cancelled Nucleated RBC % Cancelled Neutrophils # (Manual) Cancelled Band Neutrophils # Cancelled Total Absolute Neuts Cancelled Lymphocytes # (Manual) Cancelled Prolymphocyte # Cancelled Reactive Lymphs # Cancelled Total Abs Lymphocytes Cancelled Monocytes # (Manual) Cancelled Eosinophils # (Manual) Cancelled Basophils # (Manual) Cancelled Metamyelocytes # (Man) Cancelled Myelocytes # (Manual) Cancelled Promyelocytes # (Man) Cancelled Blast Cells # (Man) Cancelled Plasma Cell # (Manual) Cancelled Other Cells # Cancelled Nucleated RBCs # (Man) Cancelled Hypersegmented Neuts Cancelled Hyposegmented Neuts Cancelled Hypogranular Neuts Cancelled Large Granular Lymphs Cancelled # Lrg Granular Lymphs Cancelled Hairy Cells Cancelled Smudge Cells Cancelled Toxic Granulation Cancelled Toxic Vacuolation Cancelled Dohle Bodies Cancelled Didier Rods Cancelled Hypogranular Platelets Cancelled Clumped Platelets Cancelled Giant Platelets Cancelled Platelet Satelliting Cancelled RBC Morphology Cancelled Polychromasia Cancelled Hypochromasia Cancelled Poikilocytosis Cancelled Basophilic Stippling Cancelled Anisocytosis Cancelled Microcytosis Cancelled Macrocytosis Cancelled Spherocytes Cancelled Pappenheimer Bodies Cancelled Sickle Cells Cancelled Target Cells Cancelled Tear Drop Cells Cancelled Ovalocytes Cancelled Stomatocytes Cancelled [place] Bodies Cancelled Echinocytes Cancelled Acanthocytes (Spur) Cancelled Rouleaux Cancelled RBC Agglutinates Cancelled Schistocytes Cancelled RBC Morph Comment Cancelled Sezary Cell Cancelled Sodium Potassium Chloride Carbon Dioxide Anion Gap BUN Creatinine Est Cr Clr Drug Dosing Est GFR ( Amer) Est GFR (Non-Af Amer) BUN/Creatinine Ratio Glucose POC Glucose 49 L* 146 H Calcium Phosphorus Magnesium Total Bilirubin AST ALT Alkaline Phosphatase Total Protein Albumin Globulin Albumin/Globulin Ratio Blood Type Antibody Screen Crossmatch 11/25/18 11/25/18 11/25/18 05:21 07:30 11:36 WBC RBC Hgb Hct MCV MCH MCHC RDW Std Deviation RDW Coeff of Zuleima Plt Count MPV Immature Gran % (Auto) Neut % (Auto) Lymph % (Auto) [place] % (Auto) Eos % (Auto) Baso % (Auto) Immature Gran # (Auto) Neut # (Auto) Lymph # (Auto) [place] # (Auto) Eos # (Auto) Baso # (Auto) Neutrophils % (Manual) Band Neutrophils % Lymphocytes % (Manual) Prolymphocyte % Reactive Lymphs % (Man) Monocytes % (Manual) Eosinophils % (Manual) Basophils % (Manual) Metamyelocytes % (Man) Myelocytes % (Man) Promyelocytes % (Man) Blast Cells % (Manual) Plasma Cell % (Manual) Other Cells % Nucleated RBC % Neutrophils # (Manual) Band Neutrophils # Total Absolute Neuts Lymphocytes # (Manual) Prolymphocyte # Reactive Lymphs # Total Abs Lymphocytes Monocytes # (Manual) Eosinophils # (Manual) Basophils # (Manual) Metamyelocytes # (Man) Myelocytes # (Manual) Promyelocytes # (Man) Blast Cells # (Man) Plasma Cell # (Manual) Other Cells # Nucleated RBCs # (Man) Hypersegmented Neuts Hyposegmented Neuts Hypogranular Neuts Large Granular Lymphs # Lrg Granular Lymphs Hairy Cells Smudge Cells Toxic Granulation Toxic Vacuolation Dohle Bodies Didier Rods Hypogranular Platelets Clumped Platelets Giant Platelets Platelet Satelliting RBC Morphology Polychromasia Hypochromasia Poikilocytosis Basophilic Stippling Anisocytosis Microcytosis Macrocytosis Spherocytes Pappenheimer Bodies Sickle Cells Target Cells Tear Drop Cells Ovalocytes Stomatocytes [place] Bodies Echinocytes Acanthocytes (Spur) Rouleaux RBC Agglutinates Schistocytes RBC Morph Comment Sezary Cell Sodium 128 L Potassium 2.8 L Chloride 103 Carbon Dioxide 15 L Anion Gap 10.0 BUN 25 H Creatinine 2.66 H Est Cr Clr Drug Dosing 31.3 Est GFR ( Amer) 36.7 Est GFR (Non-Af Amer) 31.7 BUN/Creatinine Ratio 9.5 L Glucose 117 H POC Glucose 129 H 228 H Calcium 7.4 L Phosphorus 2.5 Magnesium 1.2 L Total Bilirubin 0.7 AST 23 ALT 17 Alkaline Phosphatase 117 Total Protein 5.4 L Albumin 1.9 L Globulin 3.5 Albumin/Globulin Ratio 0.5 L Blood Type Antibody Screen Crossmatch Medications Administered Current Inpatient Medications Acetaminophen (Tylenol) 650 mg PO Q4H PRN PRN Reason: Pain or Fever Stop: 12/23/18 14:08 Last Admin: 11/25/18 01:16 Dose: 650 mg Documented by: Alprazolam (Xanax) 0.5 mg PO BID [facility] Stop: 12/23/18 20:59 Last Admin: 11/25/18 11:27 Dose: 0.5 mg Documented by: Clotrimazole (Mycelex) 10 mg BUCCAL [id number] [facility] Stop: 12/03/18 14:59 Last Admin: 11/25/18 11:06 Dose: 10 mg Documented by: Dextrose (Dextrose 50%) 25 - 50 ml IV UD PRN; Protocol PRN Reason: Hypoglycemia Protocol Stop: 12/23/18 14:29 Last Admin: 11/25/18 04:06 Dose: 50 ml Documented by: Dronabinol (Marinol) 2.5 mg PO BID PRN PRN Reason: Nausea And Vomiting Stop: 12/24/18 17:35 Last Admin: 11/25/18 08:00 Dose: 2.5 mg Documented by: Glucagon (Glucagen) 1 mg SQ UD PRN; Protocol PRN Reason: Hypoglycemia Protocol Stop: 12/23/18 14:29 Glucose (Glucose 40%) 15 - 30 gm PO UD PRN; Protocol PRN Reason: Hypoglycemia Protocol Stop: 12/23/18 14:29 Glucose (Dex4 Glucose) 4 - 8 tabs PO UD PRN; Protocol PRN Reason: Hypoglycemia Protocol Stop: 12/23/18 14:29 Heparin Sodium (Porcine) (Heparin Sod 100 Unit/Ml Flush) 5 ml FLUSH PRN PRN PRN Reason: Flush Stop: 12/24/18 00:59 Levofloxacin/Dextrose (Levaquin/D5w) 750 mg in 150 mls @ 100 mls/hr IV Q48H [facility] Stop: 12/10/18 05:59 Sodium Bicarbonate 75 meq/ (Dextrose/Sodium Chloride) 1,075 mls @ 125 mls/hr IV .[id number] [facility] Stop: 12/24/18 20:29 Last Infusion: 11/25/18 10:51 Dose: 0 mls/hr Documented by: Sodium Chloride (Nss) 250 mls @ 15 mls/hr IV .[id number] PRN PRN Reason: For Transfusion Stop: 12/25/18 09:43 Potassium Chloride (K Harpal / Wtr) 20 meq in 100 mls @ 50 mls/hr IV Q2H [facility] Stop: 11/25/18 19:29 Last Admin: 11/25/18 14:45 Dose: 50 mls/hr Documented by: Cefepime HCl 2,000 mg/ Syringe 20 mls @ 5.5 mls/min IV Q12H [facility] Stop: 11/27/18 10:59 Last Admin: 11/25/18 11:07 Dose: 5.5 mls/min Documented by: Insulin Aspart (Novolog Flexpen) 0 units SC ACHS [facility] Stop: 12/23/18 16:29 Last Admin: 11/25/18 11:46 Dose: 2 units Documented by: Insulin Aspart (Novolog Flexpen) 0 units SC TODAY@0000,0400 [facility] Stop: 12/26/18 00:00 Insulin Glargine (Lantus Solostar Pen) 5 units SC TODAY@1200 [facility] Stop: 12/25/18 11:59 Last Admin: 11/25/18 12:15 Dose: 5 units Documented by: Miscellaneous (Remove Nicoderm Patch) 1 ea N/A HS [facility] Stop: 12/23/18 20:59 Last Admin: 11/24/18 20:34 Dose: Not Given Documented by: Miscellaneous (Carbohydrates For Hypoglycemia) 15 - 30 gm PO UD PRN PRN Reason: Hypoglycemia Treatment Stop: 12/23/18 14:29 Miscellaneous Information (Consult Glycemic Management Pharmacy) 1 ea N/A UD PRN PRN Reason: Consult Stop: 12/23/18 12:21 Miscellaneous Information (Consult) 1 ea N/A UD PRN PRN Reason: Consult Stop: 12/24/18 05:37 Morphine Sulfate (Ms Contin) 30 mg PO Q8 [facility] Stop: 12/07/18 14:29 Last Admin: 11/25/18 14:13 Dose: Not Given Documented by: Multivitamins (Multivitamin Tab) 1 tab PO DAILY [facility] Stop: 12/24/18 08:59 Last Admin: 11/25/18 07:35 Dose: 1 tab Documented by: Nicotine (Nicoderm Cq) 21 mg TD QAM [facility] Stop: 12/23/18 14:08 Last Admin: 11/25/18 07:35 Dose: 21 mg Documented by: Ondansetron HCl (Zofran) 8 mg IV Q6H PRN PRN Reason: Nausea Stop: 12/23/18 14:08 Oxycodone HCl (Roxicodone Immediate Rel) 10 mg PO Q4H PRN PRN Reason: Pain Stop: 12/07/18 14:08 Last Admin: 11/25/18 12:17 Dose: 10 mg Documented by: Pantoprazole Sodium (Protonix) 40 mg PO QAM [facility] Stop: 11/28/18 09:01 Last Admin: 11/25/18 07:34 Dose: 40 mg Documented by: Prochlorperazine (Compazine) 10 mg PO Q6H PRN PRN Reason: nausea and vomiting Stop: 12/23/18 14:08 Sucralfate (Carafate) 1 gm PO QID [facility] Stop: 12/25/18 08:59 Last Admin: 11/25/18 12:11 Dose: Not Given Documented by: Valacyclovir HCl (Valtrex) 1,000 mg PO DAILY [facility] Stop: 12/24/18 08:59 Last Admin: 11/25/18 07:36 Dose: 1,000 mg Documented by: Resident Activity Tracking Resident Involvement: Resident Care Provided Care Provided: Adult Hospital Medicine
[2018-11-25] MEDS ORDERED: fentaNYL citrate 100 MCG/2 ML VIAL ONE (16:22)
[2018-11-25] MEDS ORDERED: MIDAZOLAM HCL 1 MG/ML 2ML VIAL ONE (16:22)
--- NOTE | 2018-11-25 16:29 | Anesthesiology Consultation ---
Date of Service November 25, 2018 Assessment & Plan (1) Encounter for pre-operative examination: Chart Review Chart Review: Acceptable Risk for Surgery Consults Requested none ASA ASA4 Proposed Anesthesia Anesthesia Type: MAC Risk / Benefits Reviewed With: PT / POA / Parent / Guardian, Accepts Plan and Informed Consent Obtained History Surgery Operation Date: 11/25/18 11:40 Proposed Procedures p Infusaport Removal - Fidencio Major MD Height/Weight Height: 6 ft 1 in Weight: 52.5 kg Allergies Allergy/AdvReac Type Severity Reaction Status Date / Time No Known Allergies Allergy Verified 11/23/18 09:41 Medications Home Medications Medication Instructions Recorded Confirmed Last Taken alprazolam [Xanax] 0.5 mg PO BID 07/25/18 11/23/18 10/20/18 dextroamphetamine-amphetamine 15 mg PO BID 07/25/18 11/23/18 10/20/18 [Adderall] insulin lispro [Admelog SoloStar See Rx Instructions .ROUTE .COMPLEX 07/25/18 11/23/18 10/19/18 U-100 Insulin] multivitamin 1 tab PO DAILY 07/25/18 11/23/18 Unknown Tresiba FlexTouch U-100 21 unit SUBCUT QPM 10/20/18 11/23/18 10/19/18 valacyclovir 1,000 mg PO DAILY #30 tab 10/24/18 11/23/18 Unknown morphine [MS Contin] 30 mg PO Q8 #10 tab 11/18/18 11/23/18 Unknown ondansetron HCl [Zofran] 4 mg PO Q6H PRN #30 tab 11/18/18 11/23/18 Unknown oxycodone 10 mg PO Q4H PRN #20 tab 11/18/18 11/23/18 Unknown prochlorperazine maleate 10 mg PO Q6H PRN #30 tab 11/18/18 11/23/18 Unknown [Compazine] Active Medications Generic Name Dose Route Start Last Admin Trade Name Freq PRN Reason Stop Dose Admin Acetaminophen 650 mg 11/23/18 14:09 11/25/18 01:16 Tylenol PO 12/23/18 14:08 650 mg Q4H PRN Administration Pain or Fever Alprazolam 0.5 mg 11/23/18 21:00 11/25/18 11:27 Xanax PO 12/23/18 20:59 0.5 mg BID RHONDA Administration Clotrimazole 10 mg 11/23/18 15:00 11/25/18 16:27 Mycelex BUCCAL 12/03/18 14:59 Not Given 5XDQ4H RHONDA Dextrose 25 - 50 ml 11/23/18 14:30 11/25/18 04:06 Dextrose 50% IV 12/23/18 14:29 50 ml UD PRN Administration Hypoglycemia Protocol Protocol Dronabinol 2.5 mg 11/24/18 17:36 11/25/18 08:00 Marinol PO 12/24/18 17:35 2.5 mg BID PRN Administration Nausea And Vomiting Sodium Bicarbonate 75 meq/ 1,075 mls @ 125 mls/hr 11/24/18 20:30 11/25/18 10:51 Dextrose/Sodium Chloride IV 12/24/18 20:29 0 mls/hr .Q8H36M RHONDA Infusion Potassium Chloride 20 meq in 100 mls @ 50 mls/hr 11/25/18 11:30 11/25/18 16:29 K Harpal / Wtr IV 11/25/18 19:29 50 mls/hr Q2H RHONDA Administration Cefepime HCl 2,000 mg/ Syringe 20 mls @ 5.5 mls/min 11/25/18 11:00 11/25/18 11:07 IV 11/27/18 10:59 5.5 mls/min Q12H RHONDA Administration Insulin Aspart 0 units 11/23/18 16:30 11/25/18 11:46 Novolog Flexpen SC 12/23/18 16:29 2 units ACHS RHONDA Administration Insulin Glargine 5 units 11/25/18 12:00 11/25/18 12:15 Lantus Solostar Pen SC 12/25/18 11:59 5 units TODAY@1200 RHONDA Administration Miscellaneous 1 ea 11/23/18 21:00 11/24/18 20:34 Remove Nicoderm Patch N/A 12/23/18 20:59 Not Given HS RHONDA Morphine Sulfate 30 mg 11/23/18 14:30 11/25/18 14:13 Ms Contin PO 12/07/18 14:29 Not Given Q8 RHONDA Multivitamins 1 tab 11/24/18 09:00 11/25/18 07:35 Multivitamin Tab PO 12/24/18 08:59 1 tab DAILY RHONDA Administration Nicotine 21 mg 11/23/18 14:09 11/25/18 07:35 Nicoderm Cq TD 12/23/18 14:08 21 mg QAM RHONDA Administration Oxycodone HCl 10 mg 11/23/18 14:09 11/25/18 12:17 Roxicodone Immediate Rel PO 12/07/18 14:08 10 mg Q4H PRN Administration Pain Pantoprazole Sodium 40 mg 11/25/18 09:00 11/25/18 07:34 Protonix PO 11/28/18 09:01 40 mg QAM RHONDA Administration Sucralfate 1 gm 11/25/18 09:00 11/25/18 12:11 Carafate PO 12/25/18 08:59 Not Given QID RHONDA Valacyclovir HCl 1,000 mg 11/24/18 09:00 11/25/18 07:36 Valtrex PO 12/24/18 08:59 1,000 mg DAILY RHONDA Administration Past Medical History Medical History S/p nephrectomy left - 2018; [facility] Polysubstance abuse (Chronic) Elevated LFTs Herpes zoster right forehead Anemia due to antineoplastic chemotherapy Tobacco use (Chronic) Mood disorder (Chronic) Avascular necrosis of bone of left hip CKD (chronic kidney disease), stage II Type I diabetes mellitus (Chronic) Testicular cancer (Chronic) Cancer related pain Metastatic cancer to brain (Chronic) Seizure (Acute) Depression Chronic pain syndrome Severe protein-calorie malnutrition (Chronic) Teratoma of pelvis Past Family History Family History Grandfather Heart attack Other Cancer Past Surgical History Surgical History History of nephrectomy History of orchiectomy History of repair of left hip joint Past Anesthesia History No Hx of Anesthesia Complications and No Family Hx of Anesthesia Complications History of PONV No Motion Sickness Screening History of Motion Sickness: No Social History Smoking Status: Current every day smoker tobacco type: cigarettes Do You Dip or Chew Tobacco: No Hx Alcohol Use: No Alcohol type: beer alcohol intake frequency: holidays/special occasions only Hx Substance Use: Yes substance use type: marijuana Last Used Substance Other:: one time a week Exercise / Class Metabolic Activity III < 4 Walking/Shop/Light housework Physical Exam Vital Signs Last Vital Signs Temp 97.7 F 11/25/18 16:16 Pulse 110 H 11/25/18 16:16 Resp 16 11/25/18 16:16 BP 117/73 11/25/18 16:16 Pulse Ox 95 11/25/18 16:16 ENMT Mouth: no dentition abnormality Thyromental Distance: > or= 3.5 Finger Breadths Mallampati Class: II Neck normal visual inspection Respiratory normal respiratory effort Auscultation: lungs clear to auscultation bilaterally Cardiovascular Rate/Rhythm: regular rate and regular rhythm Testing Electrocardiogram Date: 10/05/18 Findings: + ST @ (124 bpm) Chest X-Ray Date: 11/23/18 Findings: + NAD Laboratory Results 11/25/18 05:21 11/25/18 05:21 Blood Type O Negative 11/23/18 11:33 Antibody Screen NEGATIVE 11/23/18 11:33 Urine Color Yellow 11/23/18 11:57 Urine Appearance Clear (Clear) 11/23/18 11:57 Urine pH 7.5 (4.5-7.5) 11/23/18 11:57 Ur Specific [place] 1.020 (1.000-1.030) 11/23/18 11:57 Urine Protein 1+ (Negative) H 11/23/18 11:57 Urine Glucose (UA) 3+ (Negative) H 11/23/18 11:57 Urine Ketones Negative (Negative) 11/23/18 11:57 Urine Nitrite Negative (Negative) 11/23/18 11:57 Ur Leukocyte Esterase Negative (Negative) 11/23/18 11:57 Urine WBC (Auto) 10-30 /hpf (0-5) H 11/23/18 11:57 Urine RBC (Auto) 0-4 /hpf (0-4) 11/23/18 11:57 U Hyaline Cast (Auto) 1-5 /lpf (0-5) 11/23/18 11:57 U Epithel Cells (Auto) >30 /lpf (0-5) H 11/23/18 11:57 Urine Bacteria (Auto) 1+ (Negative) H 11/23/18 11:57 11/23/18 19:50 Urine Culture - Final Urine,Clean Catch No growth - less than 1,000 colonies/mL. 11/23/18 11:57 Urine Culture - Final Urine,Clean Catch No growth - less than 1,000 colonies/mL. 11/23/18 13:19 Blood Culture - Final Blood Pseudomonas aeruginosa 11/23/18 12:21 Blood Culture - Final Blood Pseudomonas aeruginosa 11/25/18 11/25/18 11/25/18 16:14 11:36 07:30 POC Glucose 204 H 228 H 129 H
[2018-11-25] MEDS ORDERED: LIDOCAINE HCL 1% 20 ML VIAL ONE (16:35)
[2018-11-25] MEDS ORDERED: BUPIVACAINE 0.5 % 5 MG/1 ML MPF 30ML VIAL ONE (16:35)
[2018-11-25] MEDS ORDERED: BACITRACIN OINT 15 GM TUBE ONE (16:35)
[2018-11-25] MEDS ORDERED: ePHEDrine sulfate 50 MG/ML AMP IV PRN (16:55)
[2018-11-25] MEDS ORDERED: ATROPINE SULFATE 0.1 MG/ML 10ML SYR IV PRN (16:55)
--- NOTE | 2018-11-25 17:05 | History & Physical Bridge Note ---
Date of Service November 25, 2018 History & Physical Bridge Note I have examined the patient, reviewed the History & Physical and in the interval since the performance of the History & Physical I have noted the following changes of clinical significance: no changes noted
[2018-11-25] MEDS ORDERED: CEFAZOLIN 1000MG 1,000 MG/7.5 ML SYR IV ONE (17:23)
[2018-11-25] MEDS ORDERED: CEFAZOLIN 250 MG/ML 1 GM VIAL ONE (17:38)
--- NOTE | 2018-11-25 17:47 | Post Operative Brief Note ---
Immediate Post Op Note v1 Date of Surgery November 25, 2018 Pre & Post Diagnosis Operation Date: 11/25/18 11:40 Pre-Op Diagnosis: Sepsis, infected richardson catheter Post-Op Diagnosis: Sepsis, infected richardson catheter Procedure Operation Date: 11/25/18 11:40 Actual Procedures p Removal of Richardson Catheter - Fidencio Major MD Surgeon Fidencio Major MD Sweat Band Sewer surgical lead Estimated Blood Loss 5 Findings Consistent with Post-Op Diagnosis Fluids 300ml Specimens culture tip of catheter Complications none Disposition Accompanied Patient To Recovery: Yes Disposition: Recovery Room Overlapping Procedure I was immediately available: during the entire case.
[2018-11-25] MEDS ORDERED: INSULIN LISPRO SCH (18:14)
[2018-11-25] MEDS ORDERED: ONDANSETRON 4 MG TAB PO PRN (18:14)
--- NOTE | 2018-11-25 18:40 | Anesthesiology Progress Note ---
Date of Service November 25, 2018 Anesthesia Post Procedure Vital Signs Vital Signs: Temp Pulse Pulse Pulse Resp BP BP 11/25/18 18:30 87 12 11/25/18 18:20 88 12 11/25/18 18:10 88 13 11/25/18 18:00 90 12 11/25/18 17:52 99.0 F 88 25 H 11/25/18 16:48 97.5 F L 83 16 11/25/18 16:16 97.7 F 110 H 16 117/73 11/25/18 12:59 97.9 F 102 H 16 119/81 11/25/18 12:57 97.9 F 102 H 16 119/81 11/25/18 12:42 98.6 F 96 H 16 120/72 11/25/18 12:25 97.9 F 125 H 16 118/78 11/25/18 12:22 98.6 F 128 H 16 128/76 11/25/18 12:13 98.8 F 124 H 16 121/70 11/25/18 11:37 97.7 F 102 H 18 123/75 11/25/18 11:23 98.4 F 130 H 16 126/77 11/25/18 10:53 125 H 16 129/79 11/25/18 10:38 97.3 F L 112 H 16 116/63 11/25/18 10:22 97.3 F L 113 H 14 116/63 11/25/18 08:00 102 H 11/25/18 07:32 98.8 F 108 H 16 123/66 11/25/18 04:03 97.9 F 118 H 18 110/62 11/25/18 01:20 147 H 11/25/18 01:17 101.8 F H 11/24/18 23:00 101.3 F H 152 H 16 109/84 11/24/18 20:20 99.7 F H 132 H 18 BP Pulse Ox 11/25/18 18:30 115/82 100 11/25/18 18:20 110/78 100 11/25/18 18:10 112/80 100 11/25/18 18:00 108/79 100 11/25/18 17:52 109/78 100 11/25/18 16:48 116/77 100 11/25/18 16:16 95 11/25/18 12:59 98 11/25/18 12:57 98 11/25/18 12:42 99 11/25/18 12:25 99 11/25/18 12:22 99 11/25/18 12:13 99 11/25/18 11:37 98 11/25/18 11:23 99 11/25/18 10:53 99 11/25/18 10:38 100 11/25/18 10:22 97 11/25/18 08:00 11/25/18 07:32 98 11/25/18 04:03 99 11/25/18 01:20 11/25/18 01:17 11/24/18 23:00 97 11/24/18 20:20 128/74 98 Pain Intensity Right Foot: Pain Intensity: 8 Notes Mental Status: alert / awake / arousable and participated in evaluation Patient Amnestic to Procedure: Yes Nausea / Vomiting: adequately controlled Pain: adequately controlled Airway Patency, RR, SpO2: stable & adequate BP & HR: stable & adequate Hydration State: stable & adequate Anesthetic Complications: no major complications apparent and Pt Satisfied with anesthetic care
[2018-11-25 20:15] LABS: BUN Creatinine Ratio 11.5 (10-20); Calcium 8.3 mg/dl (8.5-10.1); Creatinine Clr Calc Pharmacy 30.8 ml/min; Est GFR (African American) 36.1; Est GFR (Non-African American) 31.1; Magnesium 2.1 mg/dl (1.8-2.4); Potassium 4.6 mmol/L (3.5-5.1)
[2018-11-25 20:21] LABS: Mean Corpuscular Hemoglobin 30.3 pg (25-34); Mean Corpuscular Hgb Conc 36.7 g/dL (32-36); Mean Corpuscular Volume 82.6 fL (80-100); Platelet Count 12 K/uL (130-400); RDW Coefficient of Variation 16.3 % (11.5-14.5); Red Blood Count 3.63 M/uL (4.7-6.1); White Blood Count 0.08 K/uL (4.8-10.8)
[2018-11-25] MEDS ORDERED: INSULIN DEGLUDEC SQ SCH (21:00)
[2018-11-25] MEDS ORDERED: DEXTROAMPHETAMINE AMPHETAMINE 15 MG PO SCH (21:00)
[2018-11-26] MEDS: INSULIN ASPART 100 UNITS/ML 3 ML PEN SC SCH ×6 (00:18→21:51)
--- NOTE | 2018-11-26 00:34 | Operative Report ---
DATE OF OPERATION: 11/25/2018 PREOPERATIVE DIAGNOSIS: Sepsis, infected port. POSTOPERATIVE DIAGNOSIS: Sepsis, infected port. PROCEDURE: Removal of the port. SURGEON: Fidencio Major MD. ANESTHESIA: Conscious sedation plus local. ESTIMATED BLOOD LOSS: About 5 mL. FINDINGS: Intact port catheter removed, culture sent the tip of the catheter. COMPLICATIONS: None. INDICATIONS FOR THE PROCEDURE: This is a 28-year-old female who presented with sepsis and infected port. The patient required to remove the port. I did talk to the patient about the benefit and risk, alternate procedure. I indicated the risks may include but not limited such as bleeding, infection, bladder clot, sepsis. The patient understands. She signed informed consent and I answered all questions. DETAILS OF PROCEDURE: We brought the patient to the OR, put the patient in the supine position. The patient received SCD on bilateral legs to prevent DVT. Also, patient received 1 gram Ancef IV for prophylactic antibiotic. The patient received conscious sedation by the Anesthesiology. The patient left chest and left neck was prepped and draped in routine sterile fashion. After time out, I injected local anesthesia by using 1% lidocaine mixed with 0.5% Marcaine around the port then I made an incision and removed the port, fixed the suture and completely removed the port and catheter. Hemostasis was obtained. Then I used 3-0 nylon to close the incision interrupted and then we put the dressing on. The patient tolerated the procedure well. All instrument, needle, sponge count were correct x2 at the end of case. Once we removed the catheter, we sent the tip of the catheter for culture and the wound culture. The patient transferred to recovery room in stable condition. I attest to the content of the Intraoperative Record and any orders documented therein. Any exception s are noted below.
[2018-11-26] MEDS: MoRPHine SULFATE CR 15 MG TABCR PO SCH ×3 (05:38→21:52)
[2018-11-26] MEDS ORDERED: LEVOFLOXACIN/D5W 750 MG/150 ML BAG IV SCH (06:00)
[2018-11-26] MEDS: SODIUM BICARBONATE 8.4% 75 MEQ in D5W AND 1/2NSS 1,000 ML IV SCH (07:22)
[2018-11-26] MEDS: CLOTRIMAZOLE 10 MG TROCHE BUCCAL SCH ×5 (07:23→22:51)
[2018-11-26] MEDS: PANTOprazole 40 MG TAB PO SCH (08:07)
[2018-11-26] MEDS: VALACYCLOVIR HCL 500 MG TABLET PO SCH (08:07)
[2018-11-26] MEDS: MULTIVITAMIN TAB PO SCH (08:07)
[2018-11-26] MEDS: NICOTINE 21 MG/24 HR TDSY TD SCH (08:08)
[2018-11-26] MEDS: SUCRALFATE 1 GM/10 ML UDC PO SCH ×4 (08:09→19:57)
--- NOTE | 2018-11-26 08:23 | Infectious Disease Consult ---
Date of Consultation November 26, 2018 Assessment & Plan (1) Bacteremia due to Pseudomonas: 28-year-old male with metastatic testicular cancer with pancytopenia from chemotherapy now with pseudomonal bacteremia in the setting of indwelling [id number]-[id number] now removed. At this point, I think the patient can be treated with cefepime alone, and would recommend 10-day course for bacteremia. Would obtain follow-up blood cultures to ensure clearance of bacteremia. Will follow. (2) Pancytopenia: History of Present Illness Reason for Consultation: Pseudomonal bacteremia, immunocompromised Attending Physician: Carroll George MD History of Present Illness 28-year-old male with known stage IV testicular cancer on salvage chemotherapy, who was admitted on November 23 with several days of fever, nausea, vomiting, and weakness. He was found to be pancytopenic and now blood cultures have grown pseudomonas aeruginosa. Patient has had indwelling Tanhcf-d-Brol, and this was removed yesterday. Temperature has been down last 48 hours. No recovery of white count as of yet. Cultures of removed catheter pending. Chest x-ray, read by me, shows no evidence of acute infiltrate. Allergies Allergy/AdvReac Type Severity Reaction Status Date / Time No Known Allergies Allergy Verified 11/23/18 09:41 Home Medications Home Medications Medication Instructions Recorded Confirmed Type alprazolam [Xanax] 0.5 mg PO BID 07/25/18 11/23/18 History dextroamphetamine-amphetamine 15 mg PO BID 07/25/18 11/23/18 History [Adderall] insulin lispro [Admelog SoloStar See Rx Instructions .ROUTE .COMPLEX 07/25/18 11/23/18 History U-100 Insulin] multivitamin 1 tab PO DAILY 07/25/18 11/23/18 History Tresiba FlexTouch U-100 21 unit SUBCUT QPM 10/20/18 11/23/18 History valacyclovir 1,000 mg PO DAILY #30 tab 10/24/18 11/23/18 Rx morphine [MS Contin] 30 mg PO Q8 #10 tab 11/18/18 11/23/18 Rx ondansetron HCl [Zofran] 4 mg PO Q6H PRN #30 tab 11/18/18 11/23/18 Rx oxycodone 10 mg PO Q4H PRN #20 tab 11/18/18 11/23/18 Rx prochlorperazine maleate 10 mg PO Q6H PRN #30 tab 11/18/18 11/23/18 Rx [Compazine] Patient History Medical History S/p nephrectomy left - 2018; [facility] Polysubstance abuse (Chronic) Elevated LFTs Herpes zoster right forehead Anemia due to antineoplastic chemotherapy Tobacco use (Chronic) Mood disorder (Chronic) Avascular necrosis of bone of left hip CKD (chronic kidney disease), stage II Type I diabetes mellitus (Chronic) Testicular cancer (Chronic) Cancer related pain Metastatic cancer to brain (Chronic) Seizure (Acute) Depression Chronic pain syndrome Severe protein-calorie malnutrition (Chronic) Teratoma of pelvis Surgical History History of nephrectomy History of orchiectomy History of repair of left hip joint Family History Grandfather Heart attack Other Cancer Social History Communication Ability: Effective Beliefs That Will Affect Care: None marital status: Single Current Living Situation: Parent and Significant Other Current Living Situation Comment: parents and fiancee current occupational status: previously employed Other Information That Helps Us Care for You: No 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 Feels Safe at Home: Yes Safety Concerns: Feels Safe At This Time Smoking Status: Current every day smoker Hx Alcohol Use: No Hx Substance Use: Yes Review of Systems Constitutional: + fever and + fatigue Eyes: no problem reported Ear, Nose, Mouth, Throat: + mouth lesions Respiratory: no problem reported Cardiovascular: no problem reported Gastrointestinal: + nausea, + vomiting and + diarrhea/loose stools Genitourinary (Male): no problem reported Foot pain Integumentary: no problem reported Neurologic: no problem reported Psychiatric: no problem reported Endocrine: no problem reported Hematologic / Lymphatic: as per Subjective / HPI Allergy / Immunological: no problem reported Physical Exam Vital Signs (Past 24 Hours): Last Vital Signs Temp 36.8 C 11/26/18 07:58 Pulse 126 H 11/26/18 07:58 Resp 16 11/26/18 07:58 BP 104/79 11/26/18 07:58 Pulse Ox 99 11/26/18 07:58 Constitutional: + ill appearing and + cachectic; no acute distress Eyes: PERRL, conjunctivae normal, anicteric sclerae ENMT: external ear and nose normal, oropharynx normal Neck: trachea midline, no thyromegaly neck nontender Respiratory: normal respiratory effort, lungs clear to auscultation normal percussion Cardiovascular: RRR, no murmur, no edema Heart Sounds: no gallop and no cardiac rub Gastrointestinal (Abdomen): normal bowel sounds, soft, nontender, no hepatosplenomegaly Percussion/Palpation: no abdominal mass Musculoskeletal: no cyanosis or clubbing, extremities motor strength 5/5 Skin: no rashes, warm and dry Surgical dressing intact chest wall Neurologic: moves all extremities and awake; no focal motor deficits Psychiatric: Orientation: alert and oriented x 3 Mood: + depressed mood Lymphatic: no cervical or axillary lymphadenopathy no inguinal lymphadenopathy Results & Data Laboratory Results Short CBC 11/25/18 Range/Units 19:37 WBC 0.08 L* (4.8-10.8) K/uL Hgb 11.0 L D (14.0-18.0) g/dL Hct 30.0 L (42-52) % Plt Count 12 L* (130-400) K/uL BMP 11/25/18 11/26/18 19:37 07:43 Sodium 128 L 129 L Potassium 4.6 D 3.2 L D Chloride 104 104 Carbon Dioxide 17 L 17 L BUN 31 H 35 H Creatinine 2.70 H 2.55 H Glucose 227 H 240 H Calcium 8.3 L 8.2 L Liver Function 11/26/18 Range/Units 07:43 Total Bilirubin 0.6 (0.2-1) mg/dl AST 6 L (15-37) U/L ALT 12 (12-78) U/L Alkaline Phosphatase 105 (45-117) U/L Albumin 1.9 L (3.4-5.0) gm/dl Diagnostic Findings Microbiology 11/25/18 17:36 Chest Gram Stain - Final 11/23/18 19:50 Urine,Clean Catch Urine Culture - Final No growth - less than 1,000 colonies/mL. 11/23/18 11:57 Urine,Clean Catch Urine Culture - Final No growth - less than 1,000 colonies/mL. 11/23/18 13:19 Blood Blood Culture - Final Pseudomonas aeruginosa 11/23/18 12:21 Blood Blood Culture - Final Pseudomonas aeruginosa XR chest 1V portable CLINICAL HISTORY: cough COMPARISON STUDY: Chest CT October 05, 2018. FINDINGS: Left internal jugular Iidnlg-v-Yrlk is in place. There is no pneumothorax or pleural effusion. There is no consolidation or evidence for pulmonary edema. Cardiomediastinal silhouette is normal. IMPRESSION: No acute cardiopulmonary findings. Electronically signed by: Guicho Olivera M.D.
[2018-11-26 08:28] LABS: Albumin Globulin Ratio 0.5 (0.9-2); Albumin Level 1.9 gm/dl (3.4-5.0); BUN Creatinine Ratio 13.6 (10-20); Bilirubin,Total 0.6 mg/dl (0.2-1); Calcium 8.2 mg/dl (8.5-10.1); Creatinine Clr Calc Pharmacy 32.5 ml/min; Est GFR (African American) 38.7; Est GFR (Non-African American) 33.3; Globulin 3.8 gm/dl (2.5-4.0); Phosphorus 1.8 mg/dl (2.5-4.9); Potassium 3.2 mmol/L (3.5-5.1); Total Protein 5.7 gm/dl (6.4-8.2)
[2018-11-26 08:32] LABS: Hematocrit (blood only) 26.7 % (42-52); Hemoglobin 9.7 g/dL (14.0-18.0); Mean Corpuscular Hemoglobin 29.7 pg (25-34); Mean Corpuscular Hgb Conc 36.3 g/dL (32-36); Mean Corpuscular Volume 81.7 fL (80-100); Platelet Count 14 K/uL (130-400); RDW Coefficient of Variation 16.4 % (11.5-14.5); RDW Standard Deviation 48.6 fL (36.4-46.3); Red Blood Count 3.27 M/uL (4.7-6.1); White Blood Count 0.07 K/uL (4.8-10.8)
[2018-11-26] MEDS ORDERED: SODIUM CHLORIDE 0.9% 250 ML IV PRN (08:36)
[2018-11-26] MEDS: ALPRAZolam 0.5 MG TABLET PO SCH ×2 (08:46→19:57)
[2018-11-26] MEDS ORDERED: INSULIN GLARGINE SOLOSTAR 100 UNITS/ML 3 ML PEN SC ONE (09:00)
[2018-11-26] MEDS: POTASSIUM CHLORIDE / WTR 10 MEQ/100 ML PLCT IV SCH ×8 (09:57→23:57)
[2018-11-26] MEDS: DEXTROSE 5% 1,000 ML IV SCH (10:50)
[2018-11-26] MEDS: CEFEPIME 2,000 MG in SYRINGE 7.5 ML IV SCH ×2 (10:56→22:50)
--- NOTE | 2018-11-26 10:56 | Progress Note ---
DATE: 11/26/2018 MEDICAL ONCOLOGY PROGRESS NOTE DIAGNOSES: 1. Neutropenic fever. 2. Pseudomonal bacteremia. 3. Acute renal injury. 4. Hypoalbuminemia. 5. Metastatic testicular cancer. 6. Status post cycle 4 TIP combination chemotherapy. SUBJECTIVE: Brett was seen and examined at bedside this morning. He continues to ambulate ad camilo and thus far tolerating his diet. As per my recommendation, MediPort was removed yesterday and he continues antipseudomonal coverage. His peripheral blood counts are quite suppressed and would continue administering Neupogen 480 mcg subQ daily. His platelet count is close to critical levels and should be considered for transfusion. Brett has no complaints otherwise today. OBJECTIVE: GENERAL: Pleasant 28-year-old gentleman, awake, alert and appropriate, in no acute distress. VITAL SIGNS: Temperature 36.8, pulse 126, respiratory rate 16, blood pressure 104/79. SKIN: Without rash or lesion. HEENT: Oral mucosa without evidence of thrush. HEART: Regular rate and rhythm, somewhat tachy. LUNGS: Clear. ABDOMEN: Soft, nontender, nondistended. EXTREMITIES: No clubbing, cyanosis or edema. NEUROLOGICAL: Grossly intact. LABORATORY DATA: WBC count 70, hemoglobin 9.7, platelet count 14,000. Sodium 129, potassium 3.2, chloride 104, carbon dioxide 17, creatinine 2.25, BUN 35, albumin 1.9, phosphorus 1.8. IMPRESSION: 1. Pseudomonal bacteremia. 2. Electrolyte dysfunction. 3. Status post removal of MediPort. 4. Hypoalbuminemia. 5. Metastatic testicular cancer. PLAN: Brett was seen and examined this morning. Making slow but steady progress. He is on pseudomonal coverage and MediPort has been removed. He requires further electrolyte replacement, ensure the hospitalist team is aware. His renal function remains troublesome considering he has one kidney remaining. I agree with current medical management otherwise and will continue to follow Brett during his stay. If not already ordered, please add Neupogen 480 mcg subQ daily for the next couple of days. Thank you again for assisting us in the care of this very pleasant gentleman.
[2018-11-26] MEDS ORDERED: POTASSIUM PHOS 3 MMOL/1 ML INFUSION IV STA (11:14)
[2018-11-26] MEDS: SODIUM BICARBONATE 8.4% 75 MEQ in SODIUM CHLORIDE 0.45 % 1,000 ML IV SCH ×2 (11:17→23:36)
[2018-11-26] MEDS ORDERED: NORMOSOL-R 500 ML IV ONE ×2 (11:25→16:42)
[2018-11-26] MEDS ORDERED: POTASSIUM PHOSPHATE 21 MMOL in SODIUM CHLORIDE 0.9% 500 ML IV ONE (11:45)
--- NOTE | 2018-11-26 12:27 | Nephrology Progress Note ---
Date of Service November 26, 2018 Assessment & Plan (1) Hyponatremia: (2) Acute kidney failure: 28-year-old male with metastatic testicular cancer s/p recent chemotherapy admitted to the hospital with neutropenic fever, volume depletion, acute kidney injury, hypokalemia, and metabolic acidosis. PO intake has been poor due to ongoing nausea and vomiting after chemotherapy. Clinical presentation consistent with dehydration and ATN. Tolerating IVF well. Continues to require aggressive electrolyte replacement. Continue isotonic IV fluid replacement. Additional 80 mEq KCl this morning ordered (40 mEq IV and 40 mEq PO). Suggest BID PO dosing as tolerated. Patient requires HCO3 replacement. Dysnatremia related to hypovolemia, poor solute intake, nausea. Monitor metabolic profile twice daily. NAGMA associated with renal dysfunction and saline. -- Continue 1/2 NS + 75 mEq NaHCO3 -- Patient will require at least 80 mEq KCl today additionally -- Replace phosphorus - suggest 30+ mmol IV today -- Monitor metabolic profile with magnesium q 12 hours -- Check phosphorus daily (3) Metabolic acidosis: -- IV replacement as Rx (4) Pancytopenia: (5) Neutropenic fever: -- Bld cx + presumed pseudomonas -- Mediport removed (6) S/p nephrectomy: (7) Testicular cancer: (8) Hypoalbuminemia: -- Nutrition consult Subjective No acute events overnight. Appetite remains poor. No diarrhea. No vomiting. No fevers or chills. Weakness improving. Mediport removed. Constitutional: + body aches, + fatigue, + weakness, + anorexia and + weight loss; no fever and no chills Ear, Nose, Mouth, Throat: + mouth lesions; no ear pain, no sore throat and no dysphagia Respiratory: + cough; no dyspnea on exertion and no sputum production Cardiovascular: + palpitations, + lightheadedness and + edema; no chest pain and no syncope Gastrointestinal: + nausea, + vomiting and + diarrhea/loose stools; no abdominal pain and no blood in stools Musculoskeletal: + joint pain (right knee - chronic) Psychiatric: + depression Physical Exam Vital Signs (Past 24 Hours): Last Vital Signs Temp 36.7 C 11/26/18 12:12 Pulse 133 H 11/26/18 12:12 Resp 16 11/26/18 12:12 BP 101/77 11/26/18 12:12 Pulse Ox 100 11/26/18 12:12 Constitutional: + ill appearing and + thin; no acute distress Eyes: no scleral abnormality and no corneal abnormality ENMT: Mouth: + dry oral mucous membranes; no oral mucosal abnormality Neck: normal visual inspection and trachea midline Respiratory: normal respiratory effort Auscultation: lungs clear to auscultation bilaterally; no rales and no rhonchi Cardiovascular: Rate/Rhythm: regular rate and regular rhythm Heart Sounds: normal S1 and normal S2; no murmur Gastrointestinal (Abdomen): Inspection/Auscultation: abdomen normal to inspe ction Percussion/Palpation: abdomen soft; abdomen nontender Musculoskeletal: Extremities: no cyanosis and no clubbing Skin: no rashes and no lesions Neurologic: Motor/Sensory: no tremor and no asterixis Psychiatric: Affect: + depressed affect Results & Data Laboratory Results Laboratory Results - last 24 hr 11/23/18 11/25/18 11/25/18 11:33 14:48 16:14 WBC RBC Hgb Hct MCV MCH MCHC RDW Std Deviation RDW Coeff of Zuleima Plt Count Immature Gran % (Auto) Neut % (Auto) Lymph % (Auto) [place] % (Auto) Eos % (Auto) Baso % (Auto) Immature Gran # (Auto) Neut # (Auto) Lymph # (Auto) [place] # (Auto) Eos # (Auto) Baso # (Auto) Neutrophils % (Manual) Band Neutrophils % Lymphocytes % (Manual) Prolymphocyte % Reactive Lymphs % (Man) Monocytes % (Manual) Eosinophils % (Manual) Basophils % (Manual) Metamyelocytes % (Man) Myelocytes % (Man) Promyelocytes % (Man) Blast Cells % (Manual) Plasma Cell % (Manual) Other Cells % Nucleated RBC % Neutrophils # (Manual) Band Neutrophils # Total Absolute Neuts Lymphocytes # (Manual) Prolymphocyte # Reactive Lymphs # Total Abs Lymphocytes Monocytes # (Manual) Eosinophils # (Manual) Basophils # (Manual) Metamyelocytes # (Man) Myelocytes # (Manual) Promyelocytes # (Man) Blast Cells # (Man) Plasma Cell # (Manual) Other Cells # Nucleated RBCs # (Man) Hypersegmented Neuts Hyposegmented Neuts Hypogranular Neuts Large Granular Lymphs # Lrg Granular Lymphs Hairy Cells Smudge Cells Toxic Granulation Toxic Vacuolation Dohle Bodies Didier Rods Hypogranular Platelets Clumped Platelets Giant Platelets Platelet Satelliting RBC Morphology Polychromasia Hypochromasia Poikilocytosis Basophilic Stippling Anisocytosis Microcytosis Macrocytosis Spherocytes Pappenheimer Bodies Sickle Cells Target Cells Tear Drop Cells Ovalocytes Stomatocytes [place] Bodies Echinocytes Acanthocytes (Spur) Rouleaux RBC Agglutinates Schistocytes RBC Morph Comment Sezary Cell Sodium Potassium Chloride Carbon Dioxide Anion Gap BUN Creatinine Est Cr Clr Drug Dosing Est GFR ( Amer) Est GFR (Non-Af Amer) BUN/Creatinine Ratio Glucose POC Glucose 208 H 204 H Calcium Phosphorus Magnesium Total Bilirubin AST ALT Alkaline Phosphatase Total Protein Albumin Globulin Albumin/Globulin Ratio Blood Type O Negative Antibody Screen NEGATIVE Crossmatch See Detail 11/25/18 11/25/18 11/25/18 17:56 19:37 19:37 WBC 0.08 L* RBC 3.63 L Hgb 11.0 L D Hct 30.0 L MCV 82.6 MCH 30.3 MCHC 36.7 H RDW Std Deviation 49.0 H RDW Coeff of Zuleima 16.3 H Plt Count 12 L* Immature Gran % (Auto) Cancelled Neut % (Auto) Cancelled Lymph % (Auto) Cancelled [place] % (Auto) Cancelled Eos % (Auto) Cancelled Baso % (Auto) Cancelled Immature Gran # (Auto) Cancelled Neut # (Auto) Cancelled Lymph # (Auto) Cancelled [place] # (Auto) Cancelled Eos # (Auto) Cancelled Baso # (Auto) Cancelled Neutrophils % (Manual) Cancelled Band Neutrophils % Cancelled Lymphocytes % (Manual) Cancelled Prolymphocyte % Cancelled Reactive Lymphs % (Man) Cancelled Monocytes % (Manual) Cancelled Eosinophils % (Manual) Cancelled Basophils % (Manual) Cancelled Metamyelocytes % (Man) Cancelled Myelocytes % (Man) Cancelled Promyelocytes % (Man) Cancelled Blast Cells % (Manual) Cancelled Plasma Cell % (Manual) Cancelled Other Cells % Cancelled Nucleated RBC % Cancelled Neutrophils # (Manual) Cancelled Band Neutrophils # Cancelled Total Absolute Neuts Cancelled Lymphocytes # (Manual) Cancelled Prolymphocyte # Cancelled Reactive Lymphs # Cancelled Total Abs Lymphocytes Cancelled Monocytes # (Manual) Cancelled Eosinophils # (Manual) Cancelled Basophils # (Manual) Cancelled Metamyelocytes # (Man) Cancelled Myelocytes # (Manual) Cancelled Promyelocytes # (Man) Cancelled Blast Cells # (Man) Cancelled Plasma Cell # (Manual) Cancelled Other Cells # Cancelled Nucleated RBCs # (Man) Cancelled Hypersegmented Neuts Cancelled Hyposegmented Neuts Cancelled Hypogranular Neuts Cancelled Large Granular Lymphs Cancelled # Lrg Granular Lymphs Cancelled Hairy Cells Cancelled Smudge Cells Cancelled Toxic Granulation Cancelled Toxic Vacuolation Cancelled Dohle Bodies Cancelled Didier Rods Cancelled Hypogranular Platelets Cancelled Clumped Platelets Cancelled Giant Platelets Cancelled Platelet Satelliting Cancelled RBC Morphology Cancelled Polychromasia Cancelled Hypochromasia Cancelled Poikilocytosis Cancelled Basophilic Stippling Cancelled Anisocytosis Cancelled Microcytosis Cancelled Macrocytosis Cancelled Spherocytes Cancelled Pappenheimer Bodies Cancelled Sickle Cells Cancelled Target Cells Cancelled Tear Drop Cells Cancelled Ovalocytes Cancelled Stomatocytes Cancelled [place] Bodies Cancelled Echinocytes Cancelled Acanthocytes (Spur) Cancelled Rouleaux Cancelled RBC Agglutinates Cancelled Schistocytes Cancelled RBC Morph Comment Cancelled Sezary Cell Cancelled Sodium 128 L Potassium 4.6 D Chloride 104 Carbon Dioxide 17 L Anion Gap 7.0 BUN 31 H Creatinine 2.70 H Est Cr Clr Drug Dosing 30.8 Est GFR ( Amer) 36.1 Est GFR (Non-Af Amer) 31.1 BUN/Creatinine Ratio 11.5 Glucose 227 H POC Glucose 228 H Calcium 8.3 L Phosphorus Magnesium 2.1 Total Bilirubin AST ALT Alkaline Phosphatase Total Protein Albumin Globulin Albumin/Globulin Ratio Blood Type Antibody Screen Crossmatch 11/25/18 11/25/18 11/26/18 20:31 23:55 04:46 WBC RBC Hgb Hct MCV MCH MCHC RDW Std Deviation RDW Coeff of Zuleima Plt Count Immature Gran % (Auto) Neut % (Auto) Lymph % (Auto) [place] % (Auto) Eos % (Auto) Baso % (Auto) Immature Gran # (Auto) Neut # (Auto) Lymph # (Auto) [place] # (Auto) Eos # (Auto) Baso # (Auto) Neutrophils % (Manual) Band Neutrophils % Lymphocytes % (Manual) Prolymphocyte % Reactive Lymphs % (Man) Monocytes % (Manual) Eosinophils % (Manual) Basophils % (Manual) Metamyelocytes % (Man) Myelocytes % (Man) Promyelocytes % (Man) Blast Cells % (Manual) Plasma Cell % (Manual) Other Cells % Nucleated RBC % Neutrophils # (Manual) Band Neutrophils # Total Absolute Neuts Lymphocytes # (Manual) Prolymphocyte # Reactive Lymphs # Total Abs Lymphocytes Monocytes # (Manual) Eosinophils # (Manual) Basophils # (Manual) Metamyelocytes # (Man) Myelocytes # (Manual) Promyelocytes # (Man) Blast Cells # (Man) Plasma Cell # (Manual) Other Cells # Nucleated RBCs # (Man) Hypersegmented Neuts Hyposegmented Neuts Hypogranular Neuts Large Granular Lymphs # Lrg Granular Lymphs Hairy Cells Smudge Cells Toxic Granulation Toxic Vacuolation Dohle Bodies Didier Rods Hypogranular Platelets Clumped Platelets Giant Platelets Platelet Satelliting RBC Morphology Polychromasia Hypochromasia Poikilocytosis Basophilic Stippling Anisocytosis Microcytosis Macrocytosis Spherocytes Pappenheimer Bodies Sickle Cells Target Cells Tear Drop Cells Ovalocytes Stomatocytes [place] Bodies Echinocytes Acanthocytes (Spur) Rouleaux RBC Agglutinates Schistocytes RBC Morph Comment Sezary Cell Sodium Potassium Chloride Carbon Dioxide Anion Gap BUN Creatinine Est Cr Clr Drug Dosing Est GFR ( Amer) Est GFR (Non-Af Amer) BUN/Creatinine Ratio Glucose POC Glucose 218 H 291 H 267 H Calcium Phosphorus Magnesium Total Bilirubin AST ALT Alkaline Phosphatase Total Protein Albumin Globulin Albumin/Globulin Ratio Blood Type Antibody Screen Crossmatch 11/26/18 11/26/18 11/26/18 07:32 07:43 07:43 WBC 0.07 L* RBC 3.27 L Hgb 9.7 L Hct 26.7 L MCV 81.7 MCH 29.7 MCHC 36.3 H RDW Std Deviation 48.6 H RDW Coeff of Zuleima 16.4 H Plt Count 14 L* Immature Gran % (Auto) Cancelled Neut % (Auto) Cancelled Lymph % (Auto) Cancelled [place] % (Auto) Cancelled Eos % (Auto) Cancelled Baso % (Auto) Cancelled Immature Gran # (Auto) Cancelled Neut # (Auto) Cancelled Lymph # (Auto) Cancelled [place] # (Auto) Cancelled Eos # (Auto) Cancelled Baso # (Auto) Cancelled Neutrophils % (Manual) Cancelled Band Neutrophils % Cancelled Lymphocytes % (Manual) Cancelled Prolymphocyte % Cancelled Reactive Lymphs % (Man) Cancelled Monocytes % (Manual) Cancelled Eosinophils % (Manual) Cancelled Basophils % (Manual) Cancelled Metamyelocytes % (Man) Cancelled Myelocytes % (Man) Cancelled Promyelocytes % (Man) Cancelled Blast Cells % (Manual) Cancelled Plasma Cell % (Manual) Cancelled Other Cells % Cancelled Nucleated RBC % Cancelled Neutrophils # (Manual) Cancelled Band Neutrophils # Cancelled Total Absolute Neuts Cancelled Lymphocytes # (Manual) Cancelled Prolymphocyte # Cancelled Reactive Lymphs # Cancelled Total Abs Lymphocytes Cancelled Monocytes # (Manual) Cancelled Eosinophils # (Manual) Cancelled Basophils # (Manual) Cancelled Metamyelocytes # (Man) Cancelled Myelocytes # (Manual) Cancelled Promyelocytes # (Man) Cancelled Blast Cells # (Man) Cancelled Plasma Cell # (Manual) Cancelled Other Cells # Cancelled Nucleated RBCs # (Man) Cancelled Hypersegmented Neuts Cancelled Hyposegmented Neuts Cancelled Hypogranular Neuts Cancelled Large Granular Lymphs Cancelled # Lrg Granular Lymphs Cancelled Hairy Cells Cancelled Smudge Cells Cancelled Toxic Granulation Cancelled Toxic Vacuolation Cancelled Dohle Bodies Cancelled Didier Rods Cancelled Hypogranular Platelets Cancelled Clumped Platelets Cancelled Giant Platelets Cancelled Platelet Satelliting Cancelled RBC Morphology Cancelled Polychromasia Cancelled Hypochromasia Cancelled Poikilocytosis Cancelled Basophilic Stippling Cancelled Anisocytosis Cancelled Microcytosis Cancelled Macrocytosis Cancelled Spherocytes Cancelled Pappenheimer Bodies Cancelled Sickle Cells Cancelled Target Cells Cancelled Tear Drop Cells Cancelled Ovalocytes Cancelled Stomatocytes Cancelled [place] Bodies Cancelled Echinocytes Cancelled Acanthocytes (Spur) Cancelled Rouleaux Cancelled RBC Agglutinates Cancelled Schistocytes Cancelled RBC Morph Comment Cancelled Sezary Cell Cancelled Sodium 129 L Potassium 3.2 L D Chloride 104 Carbon Dioxide 17 L Anion Gap 8.0 BUN 35 H Creatinine 2.55 H Est Cr Clr Drug Dosing 32.5 Est GFR ( Amer) 38.7 Est GFR (Non-Af Amer) 33.3 BUN/Creatinine Ratio 13.6 Glucose 240 H POC Glucose 269 H Calcium 8.2 L Phosphorus 1.8 L Magnesium Total Bilirubin 0.6 AST 6 L ALT 12 Alkaline Phosphatase 105 Total Protein 5.7 L Albumin 1.9 L Globulin 3.8 Albumin/Globulin Ratio 0.5 L Blood Type Antibody Screen Crossmatch 11/26/18 11:41 WBC RBC Hgb Hct MCV MCH MCHC RDW Std Deviation RDW Coeff of Zuleima Plt Count Immature Gran % (Auto) Neut % (Auto) Lymph % (Auto) [place] % (Auto) Eos % (Auto) Baso % (Auto) Immature Gran # (Auto) Neut # (Auto) Lymph # (Auto) [place] # (Auto) Eos # (Auto) Baso # (Auto) Neutrophils % (Manual) Band Neutrophils % Lymphocytes % (Manual) Prolymphocyte % Reactive Lymphs % (Man) Monocytes % (Manual) Eosinophils % (Manual) Basophils % (Manual) Metamyelocytes % (Man) Myelocytes % (Man) Promyelocytes % (Man) Blast Cells % (Manual) Plasma Cell % (Manual) Other Cells % Nucleated RBC % Neutrophils # (Manual) Band Neutrophils # Total Absolute Neuts Lymphocytes # (Manual) Prolymphocyte # Reactive Lymphs # Total Abs Lymphocytes Monocytes # (Manual) Eosinophils # (Manual) Basophils # (Manual) Metamyelocytes # (Man) Myelocytes # (Manual) Promyelocytes # (Man) Blast Cells # (Man) Plasma Cell # (Manual) Other Cells # Nucleated RBCs # (Man) Hypersegmented Neuts Hyposegmented Neuts Hypogranular Neuts Large Granular Lymphs # Lrg Granular Lymphs Hairy Cells Smudge Cells Toxic Granulation Toxic Vacuolation Dohle Bodies Didier Rods Hypogranular Platelets Clumped Platelets Giant Platelets Platelet Satelliting RBC Morphology Polychromasia Hypochromasia Poikilocytosis Basophilic Stippling Anisocytosis Microcytosis Macrocytosis Spherocytes Pappenheimer Bodies Sickle Cells Target Cells Tear Drop Cells Ovalocytes Stomatocytes [place] Bodies Echinocytes Acanthocytes (Spur) Rouleaux RBC Agglutinates Schistocytes RBC Morph Comment Sezary Cell Sodium Potassium Chloride Carbon Dioxide Anion Gap BUN Creatinine Est Cr Clr Drug Dosing Est GFR ( Amer) Est GFR (Non-Af Amer) BUN/Creatinine Ratio Glucose POC Glucose 182 H Calcium Phosphorus Magnesium Total Bilirubin AST ALT Alkaline Phosphatase Total Protein Albumin Globulin Albumin/Globulin Ratio Blood Type Antibody Screen Crossmatch (1) Acute kidney failure Acute renal failure type: unspecified Qualified Code(s): N17.9 - Acute kidney failure, unspecified (2) Testicular cancer Descendance of testis: descended Laterality: left Qualified Code(s): C62.12 - Malignant neoplasm of descended left testis
--- NOTE | 2018-11-26 13:22 | Pharmacy Report ---
Pharmacy Glycemic Short Note 2 - Date of Service November 26, 2018 - Glycemic Short BSG Results (Last 24 hours): 11/25/18 11/25/18 11/25/18 14:48 16:14 17:56 Glucose POC Glucose 208 H 204 H 228 H 11/25/18 11/25/18 11/25/18 19:37 20:31 23:55 Glucose 227 H POC Glucose 218 H 291 H 11/26/18 11/26/18 11/26/18 04:46 07:32 07:43 Glucose 240 H POC Glucose 267 H 269 H 11/26/18 11:41 Glucose POC Glucose 182 H OUTPATIENT ANTIDIABETIC REGIMEN: * Tresiba 21 units qPM * Lispro SS (1 unit per 10 grams CHO) ASSESSMENT: 11/26 * BSGs elevated yesterday- fluids were increased to 125 ml/hr * Patient received 13 units of insulin yesterday * 10 units of lantus this AM, Tighten CF/CR * Patient continues to have limited po intake, expect cutting dextrose altogether would result in hypoglycemia * Removed dextrose from the 1/2NS/Bicarb- dextrose to run @50 ml/hr and 1/2NS + Bicarb at 75 ml/hr for total 125 ml/hr * If BSGs continue to be elevated may be able to discontinue dextrose 11/25 * Fluids reduced from D10 to D5+1/2NS+bicarb overnight, hypoglycemic overnight (49), up to 228 at lunch * Gave 5 units of lantus at lunchtime (half of yesterdays dose) * ?remove dextrose from current fluid and run separately at lower rate? Would need some form of glucose to prevent ketosis * Will continue overnight glucose checks 11/24 * Patient's BSGs low overnight continue to be on lower end today, has required 0 units of correctional/prandial * Has dextrose infusion running, low dose of lantus this afternoon * Continue to monitor 11/23 * 28 yr old T1DM male well known to the glycemic service admitted for febrile neutropenia. He complains of nausea, vomiting, and dizziness that started two days ago. He has had poor oral intake due to symptoms. * Per discussion with provider, patient missed his dose of Tresiba last evening (his last dose was Saturday evening). Typically for patients who are basal deficient I would partially make up for missed dose, however I am hesitant in this case due to poor oral intake, N/V, and ADRI. I have ordered a one time dose of 20 units of Lantus. Additional can be given this evening if severe hyperglycemia is noted. * During previous admissions, Brett required 15-30 units of basal per day while on dexamethasone. He has required much smaller doses (5-10 units of basal cate y) when not on steroids- we have limited BSG data with patient not on steroids. PLAN FOR INPATIENT GLYCEMIC CONTROL: * Basal insulin * Lantus 10 units SQ x 1 * Further dosing to be determined based on BSG trend * Bolus insulin * NovoLog per scale ACHS or Q6hrs while NPO * Goal Range: Low 120 mg/dL - High 160 mg/dL * Correction Factor: 35 mg/dL/unit * Nutritional / Prandial insulin per carb ratio of 1 unit per 15 grams CHO consumed * Add overnight checks
--- NOTE | 2018-11-26 15:06 | Family Medicine Progress Note ---
Date of Service November 26, 2018 Assessment & Plan (1) Pancytopenia due to antineoplastic chemotherapy: 28 y/o M with PMH Stage IV testicular cancer with mets to abd presents with fever, N/V, dizziness after finishing up chemo therapy last week found to have neutropenic fever. 1) Neutropenic Fever -s/p chemotherapy last week -Blood cx x2 shows pseudomonas, pansensitive. Urine cx no growth. Probable pseudomonal causes from either port or GI. Mediport removed 11/25 (Dr. Major). -Per ID recs: Cont IV Cefepime alone for 10 days. -Cont valtrex for HSV prophylaxis -afebrile since admission. Neutropenic precautions 2) Pancytopenia -/ to antineoplastic chemotherapy -Has severe pancytopenia: WBC .07, Hgb 9.7, Plt 14. Cont trend -s/p 2 units PRBCs 11/23, 11/25 -platelet infusion 11/24 1 unit, 2 units 11/25, 2 units 11/26 -Heme/onc: Cont Neupogen 480 subQ. Transfuse as necessary, specifically for hemoglobin below 7.5 and platelet count below 15,000 3) Acute kidney failure -Cr baseline is about 1.2. Today 2.55 -Likely pre-renal from severe dehyration -right-sided solitary kidney only -Nephro: Cont 09/03 NS + 75 mEq NaHCO3. Magnesium and phosphorus daily. 4) R Foot fracture -Suffered during prior hospital stay. Family bringing boot from home. Non- weightbearing status to right foot/leg. 5) Tobacco abuse -cont nicoderm patch - 21mg/day -will counseling case manager to quit on d/c 6) Chronic pain syndrome -Cont home regimen of meds 7) Nausea -Increased IV Zofran to 8 mg. Per Heme/Onc recs, will consider with 4 mg piggyback dose of dexamethasone if still present, which was done last time. -Marinol to help with nausea, also appetite stimulant 8) T1DM -glycemic management consult from pharmacy appreciated 10) Electrolyte Abnormality -K 3.2 s/p 4 bags 11/24 and 11/25--> Potassium phosphate 21 mmol today -Mg 2.1 --> 3 bags MgSO4 11/26. -Cont trend above with BMP and Mg q12, daily phosphorus -hypoalbuminemia- dietary consult placed to assist with increased protein intake 11) Tachycardia -pt in 110s-130s today. Responded to 500cc NS bolus. Will cont monitor pressures/HR -EKG- sinus tachycardia FULL DVT prophylaxis: SCDs Supervising Physician Co-Signing Physician Notes Attending attestation Pt seen and examined in concert with Dr. Fajardo. In agreement with the documented findings as noted in the resident documentation with any exceptions or additions as noted here. Continued gradual improvement in fatigue, weakness and nausea, the latter of which is controlled on present regimen. Increased tachycardia from baseline is asymptomatic per patient at time of examination. On examination, S1/S2 nl RRR no MCG. CTAB. Abd NT/ND BS+ve Neutropenic fever with pseudomonas Cx - ID consultation appreciated - cefepime for a total of 10 days, continue valacyclovir daily Tachycardia - low 100s at baseline but has increased, did respond to 500cc NS bolus, sinus tachycardia on EKG Acute renal failure with accompanying electrolyte abn - nephrology consultation appreciated - continue IVF therapy and lyte mgmt Metastatic testicular cancer on chemotherapy with pancytopenia - heme/onc consultation appreciated - multiple transfusions, trend CBC Else see resident documentation as noted. Subjective 28 y/o M found in bed this AM in NAD. States that since yesterday, feeling actual improvement. Has little to no diarrhea. N/V improved since yesterday after medications changes made. Appetite is just ok, tolerating PO intake and minimal solid intake. Still some ongoing weakness. Some difficulty with ambulation 2/2 R leg boot from fx. No other issues voiding. Pt has no other acute concerns or complaints. Physical Exam Vital Signs (Past 24 Hours): Last Vital Signs Temp 36.6 C 11/26/18 14:13 Pulse 119 H 11/26/18 14:13 Resp 16 11/26/18 14:13 BP 127/83 11/26/18 14:13 Pulse Ox 100 11/26/18 14:13 Constitutional: + ill appearing and + cachectic Eyes: PERRL, conjunctivae normal, anicteric sclerae Respiratory: normal respiratory effort, lungs clear to auscultation Cardiovascular: RRR, no murmur, no edema Chest (Breasts): Additional Comments: bandages in location of port removal, nondraining Gastrointestinal (Abdomen): normal bowel sounds, soft, nontender, no hepatosplenomegaly Skin: no rashes, warm and dry Psychiatric: Affect: + depressed affect Results & Data Laboratory Results Laboratory Results - last 24 hr 11/23/18 11/25/18 11/25/18 11:33 14:48 19:37 WBC 0.08 L* RBC 3.63 L Hgb 11.0 L D Hct 30.0 L MCV 82.6 MCH 30.3 MCHC 36.7 H RDW Std Deviation 49.0 H RDW Coeff of Zuleima 16.3 H Plt Count 12 L* Immature Gran % (Auto) Cancelled Neut % (Auto) Cancelled Lymph % (Auto) Cancelled Ray % (Auto) Cancelled Eos % (Auto) Cancelled Baso % (Auto) Cancelled Immature Gran # (Auto) Cancelled Neut # (Auto) Cancelled Lymph # (Auto) Cancelled Ray # (Auto) Cancelled Eos # (Auto) Cancelled Baso # (Auto) Cancelled Neutrophils % (Manual) Cancelled Band Neutrophils % Cancelled Lymphocytes % (Manual) Cancelled Prolymphocyte % Cancelled Reactive Lymphs % (Man) Cancelled Monocytes % (Manual) Cancelled Eosinophils % (Manual) Cancelled Basophils % (Manual) Cancelled Metamyelocytes % (Man) Cancelled Myelocytes % (Man) Cancelled Promyelocytes % (Man) Cancelled Blast Cells % (Manual) Cancelled Plasma Cell % (Manual) Cancelled Other Cells % Cancelled Nucleated RBC % Cancelled Neutrophils # (Manual) Cancelled Band Neutrophils # Cancelled Total Absolute Neuts Cancelled Lymphocytes # (Manual) Cancelled Prolymphocyte # Cancelled Reactive Lymphs # Cancelled Total Abs Lymphocytes Cancelled Monocytes # (Manual) Cancelled Eosinophils # (Manual) Cancelled Basophils # (Manual) Cancelled Metamyelocytes # (Man) Cancelled Myelocytes # (Manual) Cancelled Promyelocytes # (Man) Cancelled Blast Cells # (Man) Cancelled Plasma Cell # (Manual) Cancelled Other Cells # Cancelled Nucleated RBCs # (Man) Cancelled Hypersegmented Neuts Cancelled Hyposegmented Neuts Cancelled Hypogranular Neuts Cancelled Large Granular Lymphs Cancelled # Lrg Granular Lymphs Cancelled Hairy Cells Cancelled Smudge Cells Cancelled Toxic Granulation Cancelled Toxic Vacuolation Cancelled Dohle Bodies Cancelled Didier Rods Cancelled Hypogranular Platelets Cancelled Clumped Platelets Cancelled Giant Platelets Cancelled Platelet Satelliting Cancelled RBC Morphology Cancelled Polychromasia Cancelled Hypochromasia Cancelled Poikilocytosis Cancelled Basophilic Stippling Cancelled Anisocytosis Cancelled Microcytosis Cancelled Macrocytosis Cancelled Spherocytes Cancelled Pappenheimer Bodies Cancelled Sickle Cells Cancelled Target Cells Cancelled Tear Drop Cells Cancelled Ovalocytes Cancelled Stomatocytes Cancelled [place] Bodies Cancelled Echinocytes Cancelled Acanthocytes (Spur) Cancelled Rouleaux Cancelled RBC Agglutinates Cancelled Schistocytes Cancelled RBC Morph Comment Cancelled Sezary Cell Cancelled Sodium Potassium Chloride Carbon Dioxide Anion Gap BUN Creatinine Est Cr Clr Drug Dosing Est GFR ( Amer) Est GFR (Non-Af Amer) BUN/Creatinine Ratio Glucose POC Glucose 208 H Calcium Phosphorus Magnesium Total Bilirubin AST ALT Alkaline Phosphatase Total Protein Albumin Globulin Albumin/Globulin Ratio Crossmatch See Detail 11/25/18 11/25/18 11/25/18 19:37 20:31 23:55 WBC RBC Hgb Hct MCV MCH MCHC RDW Std Deviation RDW Coeff of Zuleima Plt Count Immature Gran % (Auto) Neut % (Auto) Lymph % (Auto) Ray % (Auto) Eos % (Auto) Baso % (Auto) Immature Gran # (Auto) Neut # (Auto) Lymph # (Auto) Ray # (Auto) Eos # (Auto) Baso # (Auto) Neutrophils % (Manual) Band Neutrophils % Lymphocytes % (Manual) Prolymphocyte % Reactive Lymphs % (Man) Monocytes % (Manual) Eosinophils % (Manual) Basophils % (Manual) Metamyelocytes % (Man) Myelocytes % (Man) Promyelocytes % (Man) Blast Cells % (Manual) Plasma Cell % (Manual) Other Cells % Nucleated RBC % Neutrophils # (Manual) Band Neutrophils # Total Absolute Neuts Lymphocytes # (Manual) Prolymphocyte # Reactive Lymphs # Total Abs Lymphocytes Monocytes # (Manual) Eosinophils # (Manual) Basophils # (Manual) Metamyelocytes # (Man) Myelocytes # (Manual) Promyelocytes # (Man) Blast Cells # (Man) Plasma Cell # (Manual) Other Cells # Nucleated RBCs # (Man) Hypersegmented Neuts Hyposegmented Neuts Hypogranular Neuts Large Granular Lymphs # Lrg Granular Lymphs Hairy Cells Smudge Cells Toxic Granulation Toxic Vacuolation Dohle Bodies Didier Rods Hypogranular Platelets Clumped Platelets Giant Platelets Platelet Satelliting RBC Morphology Polychromasia Hypochromasia Poikilocytosis Basophilic Stippling Anisocytosis Microcytosis Macrocytosis Spherocytes Pappenheimer Bodies Sickle Cells Target Cells Tear Drop Cells Ovalocytes Stomatocytes [place] Bodies Echinocytes Acanthocytes (Spur) Rouleaux RBC Agglutinates Schistocytes RBC Morph Comment Sezary Cell Sodium 128 L Potassium 4.6 D Chloride 104 Carbon Dioxide 17 L Anion Gap 7.0 BUN 31 H Creatinine 2.70 H Est Cr Clr Drug Dosing 30.8 Est GFR ( Amer) 36.1 Est GFR (Non-Af Amer) 31.1 BUN/Creatinine Ratio 11.5 Glucose 227 H POC Glucose 218 H 291 H Calcium 8.3 L Phosphorus Magnesium 2.1 Total Bilirubin AST ALT Alkaline Phosphatase Total Protein Albumin Globulin Albumin/Globulin Ratio Crossmatch 11/26/18 11/26/18 11/26/18 04:46 07:32 07:43 WBC 0.07 L* RBC 3.27 L Hgb 9.7 L Hct 26.7 L MCV 81.7 MCH 29.7 MCHC 36.3 H RDW Std Deviation 48.6 H RDW Coeff of Zuleima 16.4 H Plt Count 14 L* Immature Gran % (Auto) Cancelled Neut % (Auto) Cancelled Lymph % (Auto) Cancelled Ray % (Auto) Cancelled Eos % (Auto) Cancelled Baso % (Auto) Cancelled Immature Gran # (Auto) Cancelled Neut # (Auto) Cancelled Lymph # (Auto) Cancelled Ray # (Auto) Cancelled Eos # (Auto) Cancelled Baso # (Auto) Cancelled Neutrophils % (Manual) Cancelled Band Neutrophils % Cancelled Lymphocytes % (Manual) Cancelled Prolymphocyte % Cancelled Reactive Lymphs % (Man) Cancelled Monocytes % (Manual) Cancelled Eosinophils % (Manual) Cancelled Basophils % (Manual) Cancelled Metamyelocytes % (Man) Cancelled Myelocytes % (Man) Cancelled Promyelocytes % (Man) Cancelled Blast Cells % (Manual) Cancelled Plasma Cell % (Manual) Cancelled Other Cells % Cancelled Nucleated RBC % Cancelled Neutrophils # (Manual) Cancelled Band Neutrophils # Cancelled Total Absolute Neuts Cancelled Lymphocytes # (Manual) Cancelled Prolymphocyte # Cancelled Reactive Lymphs # Cancelled Total Abs Lymphocytes Cancelled Monocytes # (Manual) Cancelled Eosinophils # (Manual) Cancelled Basophils # (Manual) Cancelled Metamyelocytes # (Man) Cancelled Myelocytes # (Manual) Cancelled Promyelocytes # (Man) Cancelled Blast Cells # (Man) Cancelled Plasma Cell # (Manual) Cancelled Other Cells # Cancelled Nucleated RBCs # (Man) Cancelled Hypersegmented Neuts Cancelled Hyposegmented Neuts Cancelled Hypogranular Neuts Cancelled Large Granular Lymphs Cancelled # Lrg Granular Lymphs Cancelled Hairy Cells Cancelled Smudge Cells Cancelled Toxic Granulation Cancelled Toxic Vacuolation Cancelled Dohle Bodies Cancelled Didier Rods Cancelled Hypogranular Platelets Cancelled Clumped Platelets Cancelled Giant Platelets Cancelled Platelet Satelliting Cancelled RBC Morphology Cancelled Polychromasia Cancelled Hypochromasia Cancelled Poikilocytosis Cancelled Basophilic Stippling Cancelled Anisocytosis Cancelled Microcytosis Cancelled Macrocytosis Cancelled Spherocytes Cancelled Pappenheimer Bodies Cancelled Sickle Cells Cancelled Target Cells Cancelled Tear Drop Cells Cancelled Ovalocytes Cancelled Stomatocytes Cancelled [place] Bodies Cancelled Echinocytes Cancelled Acanthocytes (Spur) Cancelled Rouleaux Cancelled RBC Agglutinates Cancelled Schistocytes Cancelled RBC Morph Comment Cancelled Sezary Cell Cancelled Sodium Potassium Chloride Carbon Dioxide Anion Gap BUN Creatinine Est Cr Clr Drug Dosing Est GFR ( Amer) Est GFR (Non-Af Amer) BUN/Creatinine Ratio Glucose POC Glucose 267 H 269 H Calcium Phosphorus Magnesium Total Bilirubin AST ALT Alkaline Phosphatase Total Protein Albumin Globulin Albumin/Globulin Ratio Crossmatch 11/26/18 11/26/18 11/26/18 07:43 11:41 13:56 WBC RBC Hgb Hct MCV MCH MCHC RDW Std Deviation RDW Coeff of Zuleima Plt Count Immature Gran % (Auto) Neut % (Auto) Lymph % (Auto) Ray % (Auto) Eos % (Auto) Baso % (Auto) Immature Gran # (Auto) Neut # (Auto) Lymph # (Auto) Ray # (Auto) Eos # (Auto) Baso # (Auto) Neutrophils % (Manual) Band Neutrophils % Lymphocytes % (Manual) Prolymphocyte % Reactive Lymphs % (Man) Monocytes % (Manual) Eosinophils % (Manual) Basophils % (Manual) Metamyelocytes % (Man) Myelocytes % (Man) Promyelocytes % (Man) Blast Cells % (Manual) Plasma Cell % (Manual) Other Cells % Nucleated RBC % Neutrophils # (Manual) Band Neutrophils # Total Absolute Neuts Lymphocytes # (Manual) Prolymphocyte # Reactive Lymphs # Total Abs Lymphocytes Monocytes # (Manual) Eosinophils # (Manual) Basophils # (Manual) Metamyelocytes # (Man) Myelocytes # (Manual) Promyelocytes # (Man) Blast Cells # (Man) Plasma Cell # (Manual) Other Cells # Nucleated RBCs # (Man) Hypersegmented Neuts Hyposegmented Neuts Hypogranular Neuts Large Granular Lymphs # Lrg Granular Lymphs Hairy Cells Smudge Cells Toxic Granulation Toxic Vacuolation Dohle Bodies Didier Rods Hypogranular Platelets Clumped Platelets Giant Platelets Platelet Satelliting RBC Morphology Polychromasia Hypochromasia Poikilocytosis Basophilic Stippling Anisocytosis Microcytosis Macrocytosis Spherocytes Pappenheimer Bodies Sickle Cells Target Cells Tear Drop Cells Ovalocytes Stomatocytes [place] Bodies Echinocytes Acanthocytes (Spur) Rouleaux RBC Agglutinates Schistocytes RBC Morph Comment Sezary Cell Sodium 129 L Potassium 3.2 L D Chloride 104 Carbon Dioxide 17 L Anion Gap 8.0 BUN 35 H Creatinine 2.55 H Est Cr Clr Drug Dosing 32.5 Est GFR ( Amer) 38.7 Est GFR (Non-Af Amer) 33.3 BUN/Creatinine Ratio 13.6 Glucose 240 H POC Glucose 182 H Calcium 8.2 L Phosphorus 1.8 L Magnesium 2.1 Total Bilirubin 0.6 AST 6 L ALT 12 Alkaline Phosphatase 105 Total Protein 5.7 L Albumin 1.9 L Globulin 3.8 Albumin/Globulin Ratio 0.5 L Crossmatch 11/26/18 11/26/18 11/26/18 16:18 16:21 16:40 WBC RBC Hgb Hct MCV MCH MCHC RDW Std Deviation RDW Coeff of Zuleima Plt Count Immature Gran % (Auto) Neut % (Auto) Lymph % (Auto) Ray % (Auto) Eos % (Auto) Baso % (Auto) Immature Gran # (Auto) Neut # (Auto) Lymph # (Auto) Ray # (Auto) Eos # (Auto) Baso # (Auto) Neutrophils % (Manual) Band Neutrophils % Lymphocytes % (Manual) Prolymphocyte % Reactive Lymphs % (Man) Monocytes % (Manual) Eosinophils % (Manual) Basophils % (Manual) Metamyelocytes % (Man) Myelocytes % (Man) Promyelocytes % (Man) Blast Cells % (Manual) Plasma Cell % (Manual) Other Cells % Nucleated RBC % Neutrophils # (Manual) Band Neutrophils # Total Absolute Neuts Lymphocytes # (Manual) Prolymphocyte # Reactive Lymphs # Total Abs Lymphocytes Monocytes # (Manual) Eosinophils # (Manual) Basophils # (Manual) Metamyelocytes # (Man) Myelocytes # (Manual) Promyelocytes # (Man) Blast Cells # (Man) Plasma Cell # (Manual) Other Cells # Nucleated RBCs # (Man) Hypersegmented Neuts Hyposegmented Neuts Hypogranular Neuts Large Granular Lymphs # Lrg Granular Lymphs Hairy Cells Smudge Cells Toxic Granulation Toxic Vacuolation Dohle Bodies Didier Rods Hypogranular Platelets Clumped Platelets Giant Platelets Platelet Satelliting RBC Morphology Polychromasia Hypochromasia Poikilocytosis Basophilic Stippling Anisocytosis Microcytosis Macrocytosis Spherocytes Pappenheimer Bodies Sickle Cells Target Cells Tear Drop Cells Ovalocytes Stomatocytes [place] Bodies Echinocytes Acanthocytes (Spur) Rouleaux RBC Agglutinates Schistocytes RBC Morph Comment Sezary Cell Sodium Potassium Chloride Carbon Dioxide Anion Gap BUN Creatinine Est Cr Clr Drug Dosing Est GFR ( Amer) Est GFR (Non-Af Amer) BUN/Creatinine Ratio Glucose POC Glucose 40 L* 39 L* 119 H Calcium Phosphorus Magnesium Total Bilirubin AST ALT Alkaline Phosphatase Total Protein Albumin Globulin Albumin/Globulin Ratio Crossmatch 11/26/18 17:09 WBC RBC Hgb Hct MCV MCH MCHC RDW Std Deviation RDW Coeff of Zuleima Plt Count Immature Gran % (Auto) Neut % (Auto) Lymph % (Auto) Ray % (Auto) Eos % (Auto) Baso % (Auto) Immature Gran # (Auto) Neut # (Auto) Lymph # (Auto) Ray # (Auto) Eos # (Auto) Baso # (Auto) Neutrophils % (Manual) Band Neutrophils % Lymphocytes % (Manual) Prolymphocyte % Reactive Lymphs % (Man) Monocytes % (Manual) Eosinophils % (Manual) Basophils % (Manual) Metamyelocytes % (Man) Myelocytes % (Man) Promyelocytes % (Man) Blast Cells % (Manual) Plasma Cell % (Manual) Other Cells % Nucleated RBC % Neutrophils # (Manual) Band Neutrophils # Total Absolute Neuts Lymphocytes # (Manual) Prolymphocyte # Reactive Lymphs # Total Abs Lymphocytes Monocytes # (Manual) Eosinophils # (Manual) Basophils # (Manual) Metamyelocytes # (Man) Myelocytes # (Manual) Promyelocytes # (Man) Blast Cells # (Man) Plasma Cell # (Manual) Other Cells # Nucleated RBCs # (Man) Hypersegmented Neuts Hyposegmented Neuts Hypogranular Neuts Large Granular Lymphs # Lrg Granular Lymphs Hairy Cells Smudge Cells Toxic Granulation Toxic Vacuolation Dohle Bodies Didier Rods Hypogranular Platelets Clumped Platelets Giant Platelets Platelet Satelliting RBC Morphology Polychromasia Hypochromasia Poikilocytosis Basophilic Stippling Anisocytosis Microcytosis Macrocytosis Spherocytes Pappenheimer Bodies Sickle Cells Target Cells Tear Drop Cells Ovalocytes Stomatocytes [place] Bodies Echinocytes Acanthocytes (Spur) Rouleaux RBC Agglutinates Schistocytes RBC Morph Comment Sezary Cell Sodium 129 L Potassium 3.4 L Chloride 104 Carbon Dioxide 19 L Anion Gap 6.0 BUN 31 H Creatinine 2.36 H Est Cr Clr Drug Dosing 35.1 Est GFR ( Amer) 42.4 Est GFR (Non-Af Amer) 36.6 BUN/Creatinine Ratio 13.3 Glucose 84 POC Glucose Calcium 8.3 L Phosphorus Magnesium Total Bilirubin AST ALT Alkaline Phosphatase Total Protein Albumin Globulin Albumin/Globulin Ratio Crossmatch Medications Administered Current Inpatient Medications Acetaminophen (Tylenol) 650 mg PO Q4H PRN PRN Reason: Pain or Fever Stop: 12/23/18 14:08 Last Admin: 11/25/18 01:16 Dose: 650 mg Documented by: Alprazolam (Xanax) 0.5 mg PO BID [facility] Stop: 12/23/18 20:59 Last Admin: 11/26/18 08:46 Dose: Not Given Documented by: Clotrimazole (Mycelex) 10 mg BUCCAL [id number] [facility] Stop: 12/03/18 14:59 Last Admin: 11/26/18 15:47 Dose: 10 mg Documented by: Dextrose (Dextrose 50%) 25 - 50 ml IV UD PRN; Protocol PRN Reason: Hypoglycemia Protocol Stop: 12/23/18 14:29 Last Admin: 11/26/18 16:28 Dose: 50 ml Documented by: Dronabinol (Marinol) 2.5 mg PO BID PRN PRN Reason: Nausea And Vomiting Stop: 12/24/18 17:35 Last Admin: 11/25/18 08:00 Dose: 2.5 mg Documented by: Filgrastim (Neupogen) 480 mcg SC DAILY [facility] Stop: 12/27/18 08:59 Glucagon (Glucagen) 1 mg SQ UD PRN; Protocol PRN Reason: Hypoglycemia Protocol Stop: 12/23/18 14:29 Glucose (Glucose 40%) 15 - 30 gm PO UD PRN; Protocol PRN Reason: Hypoglycemia Protocol Stop: 12/23/18 14:29 Glucose (Dex4 Glucose) 4 - 8 tabs PO UD PRN; Protocol PRN Reason: Hypoglycemia Protocol Stop: 12/23/18 14:29 Heparin Sodium (Porcine) (Heparin Sod 100 Unit/Ml Flush) 5 ml FLUSH PRN PRN PRN Reason: Flush Stop: 12/24/18 00:59 Sodium Chloride (Nss) 250 mls @ 15 mls/hr IV .[id number] PRN PRN Reason: For Transfusion Stop: 12/25/18 09:43 Cefepime HCl 2,000 mg/ Syringe 20 mls @ 5.5 mls/min IV Q12H [facility] Stop: 11/27/18 10:59 Last Admin: 11/26/18 10:56 Dose: 5.5 mls/min Documented by: Sodium Chloride (Nss) 250 mls @ 15 mls/hr IV .[id number] PRN PRN Reason: For Transfusion Stop: 12/25/18 23:13 Sodium Chloride (Nss) 250 mls @ 15 mls/hr IV .[id number] PRN PRN Reason: For Transfusion Stop: 12/26/18 08:35 Sodium Bicarbonate 75 meq/ (Sodium Chloride) 1,075 mls @ 75 mls/hr IV .[id number] [facility] Stop: 12/26/18 10:29 Last Admin: 11/26/18 11:17 Dose: 75 mls/hr Documented by: Dextrose (D5w) 1,000 mls @ 50 mls/hr IV .[id number] [facility] Stop: 12/26/18 10:29 Last Admin: 11/26/18 10:50 Dose: 50 mls/hr Documented by: Insulin Aspart (Novolog Flexpen) 0 units SC ACHS [facility] Stop: 12/23/18 16:29 Last Admin: 11/26/18 17:11 Dose: Not Given Documented by: Insulin Aspart (Novolog Flexpen) 0 units SC TODAY@0000,0400 [facility] Stop: 12/26/18 00:00 Last Admin: 11/26/18 04:47 Dose: 3 units Documented by: Miscellaneous (Remove Nicoderm Patch) 1 ea N/A HS [facility] Stop: 12/23/18 20:59 Last Admin: 11/25/18 21:14 Dose: 1 ea Documented by: Miscellaneous (Carbohydrates For Hypoglycemia) 15 - 30 gm PO UD PRN PRN Reason: Hypoglycemia Treatment Stop: 12/23/18 14:29 Miscellaneous Information (Consult Glycemic Management Pharmacy) 1 ea N/A UD PRN PRN Reason: Consult Stop: 12/23/18 12:21 Morphine Sulfate (Ms Contin) 30 mg PO Q8 [facility] Stop: 12/07/18 14:29 Last Admin: 11/26/18 13:33 Dose: 30 mg Documented by: Multivitamins (Multivitamin Tab) 1 tab PO DAILY [facility] Stop: 12/24/18 08:59 Last Admin: 11/26/18 08:07 Dose: 1 tab Documented by: Nicotine (Nicoderm Cq) 21 mg TD QAM [facility] Stop: 12/23/18 14:08 Last Admin: 11/26/18 08:08 Dose: 21 mg Documented by: Ondansetron HCl (Zofran) 8 mg IV Q6H PRN PRN Reason: Nausea Stop: 12/23/18 14:08 Oxycodone HCl (Roxicodone Immediate Rel) 10 mg PO Q4H PRN PRN Reason: Pain Stop: 12/07/18 14:08 Last Admin: 11/25/18 21:08 Dose: 10 mg Documented by: Pantoprazole Sodium (Protonix) 40 mg PO QAM [facility] Stop: 11/28/18 09:01 Last Admin: 11/26/18 08:07 Dose: 40 mg Documented by: Prochlorperazine (Compazine) 10 mg PO Q6H PRN PRN Reason: nausea and vomiting Stop: 12/23/18 14:08 Sucralfate (Carafate) 1 gm PO QID [facility] Stop: 12/25/18 08:59 Last Admin: 11/26/18 17:16 Dose: 1 gm Documented by: Valacyclovir HCl (Valtrex) 1,000 mg PO DAILY [facility] Stop: 12/24/18 08:59 Last Admin: 11/26/18 08:07 Dose: 1,000 mg Documented by: Resident Activity Tracking Resident Involvement: Resident Care Provided Care Provided: Adult Hospital Medicine
[2018-11-26] MEDS: DEXTROSE 50% 50 ML SYRINGE IV PRN ×2 (16:28→19:32)
[2018-11-26 17:53] LABS: BUN Creatinine Ratio 13.3 (10-20); Calcium 8.3 mg/dl (8.5-10.1); Creatinine Clr Calc Pharmacy 35.1 ml/min; Est GFR (African American) 42.4; Est GFR (Non-African American) 36.6; Potassium 3.4 mmol/L (3.5-5.1)
[2018-11-26] MEDS ORDERED: POTASSIUM CHLORIDE / WTR 20 MEQ/100 ML PLCT IV SCH (20:00)
[2018-11-27] MEDS: INSULIN ASPART 100 UNITS/ML 3 ML PEN SC SCH ×6 (00:10→20:16)
[2018-11-27] MEDS: POTASSIUM CHLORIDE / WTR 10 MEQ/100 ML PLCT IV SCH ×5 (00:36→11:56)
[2018-11-27] MEDS: DEXTROSE 5% 1,000 ML IV SCH ×2 (04:21→17:40)
[2018-11-27 07:06] LABS: Hemoglobin 7.7 g/dL (14.0-18.0); Mean Corpuscular Hemoglobin 29.6 pg (25-34); Mean Corpuscular Hgb Conc 36.7 g/dL (32-36); Mean Corpuscular Volume 80.8 fL (80-100); Platelet Count 19 K/uL (130-400); White Blood Count 0.09 K/uL (4.8-10.8)
[2018-11-27 07:10] LABS: Albumin Level 1.9 gm/dl (3.4-5.0); BUN Creatinine Ratio 13.2 (10-20); Calcium 8.2 mg/dl (8.5-10.1); Creatinine Clr Calc Pharmacy 38.3 ml/min; Est GFR (African American) 47.2; Est GFR (Non-African American) 40.8; Magnesium 1.4 mg/dl (1.8-2.4); Potassium 2.9 mmol/L (3.5-5.1)
[2018-11-27] MEDS ORDERED: POTASSIUM CHLORIDE / WTR 10 MEQ/100 ML PLCT IV STA (07:20)
[2018-11-27] MEDS ORDERED: MAGNESIUM SULFATE / D5W 1 GM/100 ML BAG IV STA (07:20)
[2018-11-27] MEDS: MoRPHine SULFATE CR 15 MG TABCR PO SCH ×3 (07:22→23:57)
[2018-11-27 07:29] LABS: Albumin Globulin Ratio 0.5 (0.9-2); Bilirubin,Total 0.9 mg/dl (0.2-1); Globulin 3.5 gm/dl (2.5-4.0); Phosphorus 1.2 mg/dl (2.5-4.9); Total Protein 5.4 gm/dl (6.4-8.2)
[2018-11-27] MEDS ORDERED: POTASSIUM CHLORIDE / WTR 20 MEQ/100 ML PLCT IV SCH (07:30)
[2018-11-27] MEDS ORDERED: POTASSIUM PHOS 3 MMOL/1 ML INFUSION IV STA ×2 (07:44→19:25)
[2018-11-27] MEDS: CLOTRIMAZOLE 10 MG TROCHE BUCCAL SCH ×5 (07:46→23:57)
[2018-11-27] MEDS ORDERED: POTASSIUM PHOSPHATE 30 MMOL in SODIUM CHLORIDE 0.9% 500 ML IV ONE (08:15)
[2018-11-27] MEDS: MAGNESIUM SULFATE / D5W 1 GM/100 ML BAG IV SCH ×2 (08:54→09:41)
[2018-11-27] MEDS: SUCRALFATE 1 GM/10 ML UDC PO SCH ×4 (08:58→20:16)
[2018-11-27] MEDS: NICOTINE 21 MG/24 HR TDSY TD SCH (08:58)
[2018-11-27] MEDS: PANTOprazole 40 MG TAB PO SCH (08:58)
[2018-11-27] MEDS: VALACYCLOVIR HCL 500 MG TABLET PO SCH (08:58)
[2018-11-27] MEDS: MULTIVITAMIN TAB PO SCH (08:58)
[2018-11-27] MEDS: ALPRAZolam 0.5 MG TABLET PO SCH ×3 (08:59→20:21)
[2018-11-27] MEDS: FILGRASTIM 480 MCG/1.6 ML VIAL SC SCH (09:03)
[2018-11-27] MEDS ORDERED: INSULIN GLARGINE SOLOSTAR 100 UNITS/ML 3 ML PEN SC ONE ×2 (09:30→09:45)
--- NOTE | 2018-11-27 11:23 | Family Medicine Progress Note ---
Date of Service November 27, 2018 Assessment & Plan (1) Pancytopenia due to antineoplastic chemotherapy: 28 y/o M with PMH Stage IV testicular cancer with mets to abd presents with fever, N/V, dizziness after finishing up chemo therapy last week found to have neutropenic fever. 1) Neutropenic Fever -s/p chemotherapy last week -Blood cx x2 shows pseudomonas, pansensitive. Urine cx no growth. Probable pseudomonal causes from either port or GI. Mediport removed 11/25 (Dr. Major). -Per ID recs: Cont IV Cefepime alone for 10 days. Day 10/12. -Cont valtrex for HSV prophylaxis -afebrile since admission. Neutropenic precautions 2) Pancytopenia -10/04 to antineoplastic chemotherapy -Has severe pancytopenia: WBC .09, Hgb 7.7, Plt 19. Cont trend -s/p 2 units PRBCs 11/23, 11/25 -platelet infusion 11/24 1 unit, 2 units 11/25, 2 units 11/26 -Heme/onc: Cont Neupogen 480 subQ. Transfuse as necessary, specifically for hemoglobin below 7.5 and platelet count below 15,000 3) Acute kidney failure -Cr baseline is about 1.2. Today 2.16, downtrending -Likely pre-renal from severe dehydration -right-sided solitary kidney only -Nephro: Cont 09/03 NS + 75 mEq NaHCO3. Magnesium and phosphorus daily. 4) R Foot fracture -Suffered during prior hospital stay. Family bringing boot from home. Non-weightbearing status to right foot/leg. 5) Tobacco abuse -cont nicoderm patch - 21mg/day -will certified alcohol drug counselor to quit on d/c 6) Chronic pain syndrome -Cont home regimen of meds 7) Nausea -Cont IV Zofran to 8 mg. Per Heme/Onc recs, will consider with 4 mg piggyback dose of dexamethasone if still present, which was done last time. -Marinol to help with nausea, also appetite stimulant. Increased to 5 mg BID 11/01 8 8) T1DM -glycemic management consult from pharmacy appreciated 10) Electrolyte Abnormality -K 2.9 s/p 4 (10 mEq) bags 11/24 and 11/25, Potassium phosphate 21 mmol 11/26, 30 mmol 11/27, 2 (20 mEq) bags 11/27 -Mg 1.4 --> 3 bags MgSO4 3/27, additonal 2 g 11/27 -Cont trend above with BMP and Mg q12, daily phosphorus -hypoalbuminemia- dietary consult placed to assist with increased protein intake 11) Tachycardia -pt in 110s-130s today. Responded to 500cc NS bolus' yesterday. Additionally repeated bolus today and will cont to repeat as needed. Will consider increasing rate of IVF tomorrow. Cont monitor pressures/HR -EKG 11/26- sinus tachycardia FULL DVT prophylaxis: SCDs Supervising Physician Co-Signing Physician Notes Attending attestation Pt seen and examined in concert with Dr. Fajardo. In agreement with the documented findings as noted in the resident documentation with any exceptions or additions as noted here. Reports continued improvement in overall fatigue, appetite and diminishing symptoms. Specifically, denies f/c, n/v/d/c, abd pain, VAN, vision changes, lightheadedness, changes in sensation. On examination, S1/S2 nl, tachycardia, Abd NT/ND BS +ve. CTAB. Neutropenic fever w/ +ve pseudomonas BCx s/p port removal - ID consultation appreciated - continue cefepime to complete course. Valacyclovir prophylaxis Pancytopenia - heme/onc consultation appreciated - improved today, trend. Multiple transfusions required during this course of stay. Acute renal failure - nephrology consultation appreciated - continue electrolyte repletions and fluid management. Bolus responsive with tachycardia Nausea with decreased POI - improved w/ marinol and ondansetron. Else see resident documentation as noted. Subjective 28 y/o M found in bed this AM in NAD. States that since yesterday, feeling continued improvement subjectively. Has no diarrhea. N/V improved since yesterday after medications changes made. Appetite not very good compared to yesterday, tolerating PO intake and minimal solid intake, although improved on later visit. Still some ongoing weakness. Some difficulty with ambulation 2/2 R leg boot from fx, notes associated numbness/tingling but nothing new for him. No other issues voiding. Pt has no other acute concerns or complaints. Physical Exam Vital Signs (Past 24 Hours): Last Vital Signs Temp 37.3 C 11/27/18 11:09 Pulse 123 H 11/27/18 11:09 Resp 20 11/27/18 11:09 BP 113/79 11/27/18 11:09 Pulse Ox 98 03/28/19 11:09 Constitutional: + ill appearing and + cachectic Eyes: PERRL, conjunctivae normal, anicteric sclerae Respiratory: normal respiratory effort, lungs clear to auscultation Cardiovascular: RRR, no murmur, no edema Chest (Breasts): Additional Comments: bandages over L chest, non draining Gastrointestinal (Abdomen): normal bowel sounds, soft, nontender, no hepatosplenomegaly Skin: no rashes, warm and dry Psychiatric: Affect: + depressed affect Results & Data Laboratory Results Laboratory Results - last 24 hr 11/23/18 11/26/18 11/26/18 11:33 11:41 13:56 WBC RBC Hgb Hct MCV MCH MCHC Plt Count Immature Gran % (Auto) Neut % (Auto) Lymph % (Auto) [place] % (Auto) Eos % (Auto) Baso % (Auto) Immature Gran # (Auto) Neut # (Auto) Lymph # (Auto) [place] # (Auto) Eos # (Auto) Baso # (Auto) Neutrophils % (Manual) Band Neutrophils % Lymphocytes % (Manual) Prolymphocyte % Reactive Lymphs % (Man) Monocytes % (Manual) Eosinophils % (Manual) Basophils % (Manual) Metamyelocytes % (Man) Myelocytes % (Man) Promyelocytes % (Man) Blast Cells % (Manual) Plasma Cell % (Manual) Other Cells % Nucleated RBC % Neutrophils # (Manual) Band Neutrophils # Total Absolute Neuts Lymphocytes # (Manual) Prolymphocyte # Reactive Lymphs # Total Abs Lymphocytes Monocytes # (Manual) Eosinophils # (Manual) Basophils # (Manual) Metamyelocytes # (Man) Myelocytes # (Manual) Promyelocytes # (Man) Blast Cells # (Man) Plasma Cell # (Manual) Other Cells # Nucleated RBCs # (Man) Hypersegmented Neuts Hyposegmented Neuts Hypogranular Neuts Large Granular Lymphs # Lrg Granular Lymphs Hairy Cells Smudge Cells Toxic Granulation Toxic Vacuolation Dohle Bodies Didier Rods Hypogranular Platelets Clumped Platelets Giant Platelets Platelet Satelliting RBC Morphology Polychromasia Hypochromasia Poikilocytosis Basophilic Stippling Anisocytosis Microcytosis Macrocytosis Spherocytes Pappenheimer Bodies Sickle Cells Target Cells Tear Drop Cells Ovalocytes Stomatocytes [place]-Hilliard Bodies Echinocytes Acanthocytes (Spur) Rouleaux RBC Agglutinates Schistocytes RBC Morph Comment Sezary Cell Sodium Potassium Chloride Carbon Dioxide Anion Gap BUN Creatinine Est Cr Clr Drug Dosing Est GFR ( Amer) Est GFR (Non-Af Amer) BUN/Creatinine Ratio Glucose POC Glucose 182 H Calcium Phosphorus Magnesium 2.1 Total Bilirubin AST ALT Alkaline Phosphatase Total Protein Albumin Globulin Albumin/Globulin Ratio Crossmatch See Detail 11/26/18 11/26/18 11/26/18 16:18 16:21 16:40 WBC RBC Hgb Hct MCV MCH MCHC Plt Count Immature Gran % (Auto) Neut % (Auto) Lymph % (Auto) [place] % (Auto) Eos % (Auto) Baso % (Auto) Immature Gran # (Auto) Neut # (Auto) Lymph # (Auto) [place] # (Auto) Eos # (Auto) Baso # (Auto) Neutrophils % (Manual) Band Neutrophils % Lymphocytes % (Manual) Prolymphocyte % Reactive Lymphs % (Man) Monocytes % (Manual) Eosinophils % (Manual) Basophils % (Manual) Metamyelocytes % (Man) Myelocytes % (Man) Promyelocytes % (Man) Blast Cells % (Manual) Plasma Cell % (Manual) Other Cells % Nucleated RBC % Neutrophils # (Manual) Band Neutrophils # Total Absolute Neuts Lymphocytes # (Manual) Prolymphocyte # Reactive Lymphs # Total Abs Lymphocytes Monocytes # (Manual) Eosinophils # (Manual) Basophils # (Manual) Metamyelocytes # (Man) Myelocytes # (Manual) Promyelocytes # (Man) Blast Cells # (Man) Plasma Cell # (Manual) Other Cells # Nucleated RBCs # (Man) Hypersegmented Neuts Hyposegmented Neuts Hypogranular Neuts Large Granular Lymphs # Lrg Granular Lymphs Hairy Cells Smudge Cells Toxic Granulation Toxic Vacuolation Dohle Bodies Didier Rods Hypogranular Platelets Clumped Platelets Giant Platelets Platelet Satelliting RBC Morphology Polychromasia Hypochromasia Poikilocytosis Basophilic Stippling Anisocytosis Microcytosis Macrocytosis Spherocytes Pappenheimer Bodies Sickle Cells Target Cells Tear Drop Cells Ovalocytes Stomatocytes [place]-Hilliard Bodies Echinocytes Acanthocytes (Spur) Rouleaux RBC Agglutinates Schistocytes RBC Morph Comment Sezary Cell Sodium Potassium Chloride Carbon Dioxide Anion Gap BUN Creatinine Est Cr Clr Drug Dosing Est GFR ( Amer) Est GFR (Non-Af Amer) BUN/Creatinine Ratio Glucose POC Glucose 40 L* 39 L* 119 H Calcium Phosphorus Magnesium Total Bilirubin AST ALT Alkaline Phosphatase Total Protein Albumin Globulin Albumin/Globulin Ratio Crossmatch 11/26/18 11/26/18 11/26/18 17:09 19:23 19:24 WBC RBC Hgb Hct MCV MCH MCHC Plt Count Immature Gran % (Auto) Neut % (Auto) Lymph % (Auto) [place] % (Auto) Eos % (Auto) Baso % (Auto) Immature Gran # (Auto) Neut # (Auto) Lymph # (Auto) [place] # (Auto) Eos # (Auto) Baso # (Auto) Neutrophils % (Manual) Band Neutrophils % Lymphocytes % (Manual) Prolymphocyte % Reactive Lymphs % (Man) Monocytes % (Manual) Eosinophils % (Manual) Basophils % (Manual) Metamyelocytes % (Man) Myelocytes % (Man) Promyelocytes % (Man) Blast Cells % (Manual) Plasma Cell % (Manual) Other Cells % Nucleated RBC % Neutrophils # (Manual) Band Neutrophils # Total Absolute Neuts Lymphocytes # (Manual) Prolymphocyte # Reactive Lymphs # Total Abs Lymphocytes Monocytes # (Manual) Eosinophils # (Manual) Basophils # (Manual) Metamyelocytes # (Man) Myelocytes # (Manual) Promyelocytes # (Man) Blast Cells # (Man) Plasma Cell # (Manual) Other Cells # Nucleated RBCs # (Man) Hypersegmented Neuts Hyposegmented Neuts Hypogranular Neuts Large Granular Lymphs # Lrg Granular Lymphs Hairy Cells Smudge Cells Toxic Granulation Toxic Vacuolation Dohle Bodies Didier Rods Hypogranular Platelets Clumped Platelets Giant Platelets Platelet Satelliting RBC Morphology Polychromasia Hypochromasia Poikilocytosis Basophilic Stippling Anisocytosis Microcytosis Macrocytosis Spherocytes Pappenheimer Bodies Sickle Cells Target Cells Tear Drop Cells Ovalocytes Stomatocytes [place]-Hilliard Bodies Echinocytes Acanthocytes (Spur) Rouleaux RBC Agglutinates Schistocytes RBC Morph Comment Sezary Cell Sodium 129 L Potassium 3.4 L Chloride 104 Carbon Dioxide 19 L Anion Gap 6.0 BUN 31 H Creatinine 2.36 H Est Cr Clr Drug Dosing 35.1 Est GFR ( Amer) 42.4 Est GFR (Non-Af Amer) 36.6 BUN/Creatinine Ratio 13.3 Glucose 84 POC Glucose 52 L* 50 L* Calcium 8.3 L Phosphorus Magnesium Total Bilirubin AST ALT Alkaline Phosphatase Total Protein Albumin Globulin Albumin/Globulin Ratio Crossmatch 11/26/18 11/26/18 11/26/18 19:47 21:33 23:38 WBC RBC Hgb Hct MCV MCH MCHC Plt Count Immature Gran % (Auto) Neut % (Auto) Lymph % (Auto) [place] % (Auto) Eos % (Auto) Baso % (Auto) Immature Gran # (Auto) Neut # (Auto) Lymph # (Auto) [place] # (Auto) Eos # (Auto) Baso # (Auto) Neutrophils % (Manual) Band Neutrophils % Lymphocytes % (Manual) Prolymphocyte % Reactive Lymphs % (Man) Monocytes % (Manual) Eosinophils % (Manual) Basophils % (Manual) Metamyelocytes % (Man) Myelocytes % (Man) Promyelocytes % (Man) Blast Cells % (Manual) Plasma Cell % (Manual) Other Cells % Nucleated RBC % Neutrophils # (Manual) Band Neutrophils # Total Absolute Neuts Lymphocytes # (Manual) Prolymphocyte # Reactive Lymphs # Total Abs Lymphocytes Monocytes # (Manual) Eosinophils # (Manual) Basophils # (Manual) Metamyelocytes # (Man) Myelocytes # (Manual) Promyelocytes # (Man) Blast Cells # (Man) Plasma Cell # (Manual) Other Cells # Nucleated RBCs # (Man) Hypersegmented Neuts Hyposegmented Neuts Hypogranular Neuts Large Granular Lymphs # Lrg Granular Lymphs Hairy Cells Smudge Cells Toxic Granulation Toxic Vacuolation Dohle Bodies Didier Rods Hypogranular Platelets Clumped Platelets Giant Platelets Platelet Satelliting RBC Morphology Polychromasia Hypochromasia Poikilocytosis Basophilic Stippling Anisocytosis Microcytosis Macrocytosis Spherocytes Pappenheimer Bodies Sickle Cells Target Cells Tear Drop Cells Ovalocytes Stomatocytes [place]-Hilliard Bodies Echinocytes Acanthocytes (Spur) Rouleaux RBC Agglutinates Schistocytes RBC Morph Comment Sezary Cell Sodium Potassium Chloride Carbon Dioxide Anion Gap BUN Creatinine Est Cr Clr Drug Dosing Est GFR ( Amer) Est GFR (Non-Af Amer) BUN/Creatinine Ratio Glucose POC Glucose 97 107 H 85 Calcium Phosphorus Magnesium Total Bilirubin AST ALT Alkaline Phosphatase Total Protein Albumin Globulin Albumin/Globulin Ratio Crossmatch 03/28/19 03/28/19 03/28/19 00:54 02:00 03:03 WBC RBC Hgb Hct MCV MCH MCHC Plt Count Immature Gran % (Auto) Neut % (Auto) Lymph % (Auto) [place] % (Auto) Eos % (Auto) Baso % (Auto) Immature Gran # (Auto) Neut # (Auto) Lymph # (Auto) [place] # (Auto) Eos # (Auto) Baso # (Auto) Neutrophils % (Manual) Band Neutrophils % Lymphocytes % (Manual) Prolymphocyte % Reactive Lymphs % (Man) Monocytes % (Manual) Eosinophils % (Manual) Basophils % (Manual) Metamyelocytes % (Man) Myelocytes % (Man) Promyelocytes % (Man) Blast Cells % (Manual) Plasma Cell % (Manual) Other Cells % Nucleated RBC % Neutrophils # (Manual) Band Neutrophils # Total Absolute Neuts Lymphocytes # (Manual) Prolymphocyte # Reactive Lymphs # Total Abs Lymphocytes Monocytes # (Manual) Eosinophils # (Manual) Basophils # (Manual) Metamyelocytes # (Man) Myelocytes # (Manual) Promyelocytes # (Man) Blast Cells # (Man) Plasma Cell # (Manual) Other Cells # Nucleated RBCs # (Man) Hypersegmented Neuts Hyposegmented Neuts Hypogranular Neuts Large Granular Lymphs # Lrg Granular Lymphs Hairy Cells Smudge Cells Toxic Granulation Toxic Vacuolation Dohle Bodies Didier Rods Hypogranular Platelets Clumped Platelets Giant Platelets Platelet Satelliting RBC Morphology Polychromasia Hypochromasia Poikilocytosis Basophilic Stippling Anisocytosis Microcytosis Macrocytosis Spherocytes Pappenheimer Bodies Sickle Cells Target Cells Tear Drop Cells Ovalocytes Stomatocytes [place]-Hilliard Bodies Echinocytes Acanthocytes (Spur) Rouleaux RBC Agglutinates Schistocytes RBC Morph Comment Sezary Cell Sodium Potassium Chloride Carbon Dioxide Anion Gap BUN Creatinine Est Cr Clr Drug Dosing Est GFR ( Amer) Est GFR (Non-Af Amer) BUN/Creatinine Ratio Glucose POC Glucose 89 80 91 Calcium Phosphorus Magnesium Total Bilirubin AST ALT Alkaline Phosphatase Total Protein Albumin Globulin Albumin/Globulin Ratio Crossmatch 11/27/18 11/27/18 11/27/18 04:13 05:56 06:02 WBC 0.09 L* RBC 2.60 L Hgb 7.7 L Hct 21.0 L MCV 80.8 MCH 29.6 MCHC 36.7 H Plt Count 19 L* Immature Gran % (Auto) Cancelled Neut % (Auto) Cancelled Lymph % (Auto) Cancelled [place] % (Auto) Cancelled Eos % (Auto) Cancelled Baso % (Auto) Cancelled Immature Gran # (Auto) Cancelled Neut # (Auto) Cancelled Lymph # (Auto) Cancelled [place] # (Auto) Cancelled Eos # (Auto) Cancelled Baso # (Auto) Cancelled Neutrophils % (Manual) Cancelled Band Neutrophils % Cancelled Lymphocytes % (Manual) Cancelled Prolymphocyte % Cancelled Reactive Lymphs % (Man) Cancelled Monocytes % (Manual) Cancelled Eosinophils % (Manual) Cancelled Basophils % (Manual) Cancelled Metamyelocytes % (Man) Cancelled Myelocytes % (Man) Cancelled Promyelocytes % (Man) Cancelled Blast Cells % (Manual) Cancelled Plasma Cell % (Manual) Cancelled Other Cells % Cancelled Nucleated RBC % Cancelled Neutrophils # (Manual) Cancelled Band Neutrophils # Cancelled Total Absolute Neuts Cancelled Lymphocytes # (Manual) Cancelled Prolymphocyte # Cancelled Reactive Lymphs # Cancelled Total Abs Lymphocytes Cancelled Monocytes # (Manual) Cancelled Eosinophils # (Manual) Cancelled Basophils # (Manual) Cancelled Metamyelocytes # (Man) Cancelled Myelocytes # (Manual) Cancelled Promyelocytes # (Man) Cancelled Blast Cells # (Man) Cancelled Plasma Cell # (Manual) Cancelled Other Cells # Cancelled Nucleated RBCs # (Man) Cancelled Hypersegmented Neuts Cancelled Hyposegmented Neuts Cancelled Hypogranular Neuts Cancelled Large Granular Lymphs Cancelled # Lrg Granular Lymphs Cancelled Hairy Cells Cancelled Smudge Cells Cancelled Toxic Granulation Cancelled Toxic Vacuolation Cancelled Dohle Bodies Cancelled Didier Rods Cancelled Hypogranular Platelets Cancelled Clumped Platelets Cancelled Giant Platelets Cancelled Platelet Satelliting Cancelled RBC Morphology Cancelled Polychromasia Cancelled Hypochromasia Cancelled Poikilocytosis Cancelled Basophilic Stippling Cancelled Anisocytosis Cancelled Microcytosis Cancelled Macrocytosis Cancelled Spherocytes Cancelled Pappenheimer Bodies Cancelled Sickle Cells Cancelled Target Cells Cancelled Tear Drop Cells Cancelled Ovalocytes Cancelled Stomatocytes Cancelled [place]-Hilliard Bodies Cancelled Echinocytes Cancelled Acanthocytes (Spur) Cancelled Rouleaux Cancelled RBC Agglutinates Cancelled Schistocytes Cancelled RBC Morph Comment Cancelled Sezary Cell Cancelled Sodium Potassium Chloride Carbon Dioxide Anion Gap BUN Creatinine Est Cr Clr Drug Dosing Est GFR ( Amer) Est GFR (Non-Af Amer) BUN/Creatinine Ratio Glucose POC Glucose 98 108 H Calcium Phosphorus Magnesium Total Bilirubin AST ALT Alkaline Phosphatase Total Protein Albumin Globulin Albumin/Globulin Ratio Crossmatch 11/27/18 11/27/18 11/27/18 06:02 07:08 08:04 WBC RBC Hgb Hct MCV MCH MCHC Plt Count Immature Gran % (Auto) Neut % (Auto) Lymph % (Auto) [place] % (Auto) Eos % (Auto) Baso % (Auto) Immature Gran # (Auto) Neut # (Auto) Lymph # (Auto) [place] # (Auto) Eos # (Auto) Baso # (Auto) Neutrophils % (Manual) Band Neutrophils % Lymphocytes % (Manual) Prolymphocyte % Reactive Lymphs % (Man) Monocytes % (Manual) Eosinophils % (Manual) Basophils % (Manual) Metamyelocytes % (Man) Myelocytes % (Man) Promyelocytes % (Man) Blast Cells % (Manual) Plasma Cell % (Manual) Other Cells % Nucleated RBC % Neutrophils # (Manual) Band Neutrophils # Total Absolute Neuts Lymphocytes # (Manual) Prolymphocyte # Reactive Lymphs # Total Abs Lymphocytes Monocytes # (Manual) Eosinophils # (Manual) Basophils # (Manual) Metamyelocytes # (Man) Myelocytes # (Manual) Promyelocytes # (Man) Blast Cells # (Man) Plasma Cell # (Manual) Other Cells # Nucleated RBCs # (Man) Hypersegmented Neuts Hyposegmented Neuts Hypogranular Neuts Large Granular Lymphs # Lrg Granular Lymphs Hairy Cells Smudge Cells Toxic Granulation Toxic Vacuolation Dohle Bodies Didier Rods Hypogranular Platelets Clumped Platelets Giant Platelets Platelet Satelliting RBC Morphology Polychromasia Hypochromasia Poikilocytosis Basophilic Stippling Anisocytosis Microcytosis Macrocytosis Spherocytes Pappenheimer Bodies Sickle Cells Target Cells Tear Drop Cells Ovalocytes Stomatocytes [place]-Hilliard Bodies Echinocytes Acanthocytes (Spur) Rouleaux RBC Agglutinates Schistocytes RBC Morph Comment Sezary Cell Sodium 130 L Potassium 2.9 L Chloride 104 Carbon Dioxide 18 L Anion Gap 9.0 BUN 29 H Creatinine 2.16 H Est Cr Clr Drug Dosing 38.3 Est GFR ( Amer) 47.2 Est GFR (Non-Af Amer) 40.8 BUN/Creatinine Ratio 13.2 Glucose 111 H POC Glucose 128 H 141 H Calcium 8.2 L Phosphorus 1.2 L* Magnesium 1.4 L Total Bilirubin 0.9 AST 15 ALT 14 Alkaline Phosphatase 192 H Total Protein 5.4 L Albumin 1.9 L Globulin 3.5 Albumin/Globulin Ratio 0.5 L Crossmatch 11/27/18 11/27/18 11/27/18 09:08 10:01 11:08 WBC RBC Hgb Hct MCV MCH MCHC Plt Count Immature Gran % (Auto) Neut % (Auto) Lymph % (Auto) [place] % (Auto) Eos % (Auto) Baso % (Auto) Immature Gran # (Auto) Neut # (Auto) Lymph # (Auto) [place] # (Auto) Eos # (Auto) Baso # (Auto) Neutrophils % (Manual) Band Neutrophils % Lymphocytes % (Manual) Prolymphocyte % Reactive Lymphs % (Man) Monocytes % (Manual) Eosinophils % (Manual) Basophils % (Manual) Metamyelocytes % (Man) Myelocytes % (Man) Promyelocytes % (Man) Blast Cells % (Manual) Plasma Cell % (Manual) Other Cells % Nucleated RBC % Neutrophils # (Manual) Band Neutrophils # Total Absolute Neuts Lymphocytes # (Manual) Prolymphocyte # Reactive Lymphs # Total Abs Lymphocytes Monocytes # (Manual) Eosinophils # (Manual) Basophils # (Manual) Metamyelocytes # (Man) Myelocytes # (Manual) Promyelocytes # (Man) Blast Cells # (Man) Plasma Cell # (Manual) Other Cells # Nucleated RBCs # (Man) Hypersegmented Neuts Hyposegmented Neuts Hypogranular Neuts Large Granular Lymphs # Lrg Granular Lymphs Hairy Cells Smudge Cells Toxic Granulation Toxic Vacuolation Dohle Bodies Didier Rods Hypogranular Platelets Clumped Platelets Giant Platelets Platelet Satelliting RBC Morphology Polychromasia Hypochromasia Poikilocytosis Basophilic Stippling Anisocytosis Microcytosis Macrocytosis Spherocytes Pappenheimer Bodies Sickle Cells Target Cells Tear Drop Cells Ovalocytes Stomatocytes [place]-Hilliard Bodies Echinocytes Acanthocytes (Spur) Rouleaux RBC Agglutinates Schistocytes RBC Morph Comment Sezary Cell Sodium Potassium Chloride Carbon Dioxide Anion Gap BUN Creatinine Est Cr Clr Drug Dosing Est GFR ( Amer) Est GFR (Non-Af Amer) BUN/Creatinine Ratio Glucose POC Glucose 155 H 200 H 206 H Calcium Phosphorus Magnesium Total Bilirubin AST ALT Alkaline Phosphatase Total Protein Albumin Globulin Albumin/Globulin Ratio Crossmatch Medications Administered Current Inpatient Medications Acetaminophen (Tylenol) 650 mg PO Q4H PRN PRN Reason: Pain or Fever Stop: 12/23/18 14:08 Last Admin: 11/25/18 01:16 Dose: 650 mg Documented by: Alprazolam (Xanax) 0.5 mg PO BID [facility] Stop: 12/23/18 20:59 Last Admin: 11/27/18 11:18 Dose: 0.5 mg Documented by: Clotrimazole (Mycelex) 10 mg BUCCAL [id number] [facility] Stop: 12/03/18 14:59 Last Admin: 11/27/18 10:54 Dose: 10 mg Documented by: Dextrose (Dextrose 50%) 25 - 50 ml IV UD PRN; Protocol PRN Reason: Hypoglycemia Protocol Stop: 12/23/18 14:29 Last Admin: 11/26/18 19:32 Dose: 50 ml Documented by: Dronabinol (Marinol) 5 mg PO BID PRN PRN Reason: Nausea And Vomiting Stop: 12/24/18 17:35 Filgrastim (Neupogen) 480 mcg SC DAILY [facility] Stop: 12/27/18 08:59 Last Admin: 11/27/18 09:03 Dose: 480 mcg Documented by: Glucagon (Glucagen) 1 mg SQ UD PRN; Protocol PRN Reason: Hypoglycemia Protocol Stop: 12/23/18 14:29 Glucose (Glucose 40%) 15 - 30 gm PO UD PRN; Protocol PRN Reason: Hypoglycemia Protocol Stop: 12/23/18 14:29 Glucose (Dex4 Glucose) 4 - 8 tabs PO UD PRN; Protocol PRN Reason: Hypoglycemia Protocol Stop: 12/23/18 14:29 Heparin Sodium (Porcine) (Heparin Sod 100 Unit/Ml Flush) 5 ml FLUSH PRN PRN PRN Reason: Flush Stop: 12/24/18 00:59 Sodium Chloride (Nss) 250 mls @ 15 mls/hr IV .[id number] PRN PRN Reason: For Transfusion Stop: 12/26/18 08:35 Sodium Bicarbonate 75 meq/ (Sodium Chloride) 1,075 mls @ 75 mls/hr IV .[id number] [facility] Stop: 12/26/18 10:29 Last Admin: 11/26/18 23:36 Dose: 75 mls/hr Documented by: Dextrose (D5w) 1,000 mls @ 75 mls/hr IV .[id number] [facility] Stop: 12/26/18 10:29 Last Admin: 11/27/18 04:21 Dose: 75 mls/hr Documented by: Potassium Chloride (K Harpal / Wtr) 10 meq in 100 mls @ 100 mls/hr IV Q1H [facility] Stop: 11/27/18 12:29 Last Admin: 11/27/18 10:54 Dose: 100 mls/hr Documented by: Potassium Phosphate 30 mmol/ (Sodium Chloride) 510 mls @ 102 mls/hr IV ONE ONE Stop: 11/27/18 13:14 Last Admin: 11/27/18 08:45 Dose: 102 mls/hr Documented by: Insulin Aspart (Novolog Flexpen) 0 units SC ACHS [facility] Stop: 12/23/18 16:29 Last Admin: 11/27/18 08:44 Dose: Not Given Documented by: Insulin Aspart (Novolog Flexpen) 0 units SC TODAY@0000,0400 [facility] Stop: 12/26/18 00:00 Last Admin: 11/27/18 04:21 Dose: Not Given Documented by: Miscellaneous (Remove Nicoderm Patch) 1 ea N/A HS [facility] Stop: 12/23/18 20:59 Last Admin: 11/26/18 21:51 Dose: Not Given Documented by: Miscellaneous (Carbohydrates For Hypoglycemia) 15 - 30 gm PO UD PRN PRN Reason: Hypoglycemia Treatment Stop: 12/23/18 14:29 Miscellaneous Information (Consult Glycemic Management Pharmacy) 1 ea N/A UD PRN PRN Reason: Consult Stop: 12/23/18 12:21 Morphine Sulfate (Ms Contin) 30 mg PO Q8 [facility] Stop: 12/07/18 14:29 Last Admin: 11/27/18 07:22 Dose: Not Given Documented by: Multivitamins (Multivitamin Tab) 1 tab PO DAILY [facility] Stop: 12/24/18 08:59 Last Admin: 11/27/18 08:58 Dose: 1 tab Documented by: Nicotine (Nicoderm Cq) [address] [facility] Stop: 12/23/18 14:08 Last Admin: 11/27/18 08:58 Dose: 21 mg Documented by: Ondansetron HCl (Zofran) 8 mg IV Q6H PRN PRN Reason: Nausea Stop: 12/23/18 14:08 Oxycodone HCl (Roxicodone Immediate Rel) 10 mg PO Q4H PRN PRN Reason: Pain Stop: 12/07/18 14:08 Last Admin: 11/25/18 21:08 Dose: 10 mg Documented by: Pantoprazole Sodium (Protonix) [address] [facility] Stop: 11/28/18 09:01 Last Admin: 11/27/18 08:58 Dose: 40 mg Documented by: Prochlorperazine (Compazine) 10 mg PO Q6H PRN PRN Reason: nausea and vomiting Stop: 12/23/18 14:08 Sucralfate (Carafate) 1 gm PO QID [facility] Stop: 12/25/18 08:59 Last Admin: 11/27/18 08:58 Dose: 1 gm Documented by: Valacyclovir HCl (Valtrex) 1,000 mg PO DAILY [facility] Stop: 12/24/18 08:59 Last Admin: 11/27/18 08:58 Dose: 1,000 mg Documented by: Resident Activity Tracking Resident Involvement: Resident Care Provided Care Provided: Adult Hospital Medicine
--- NOTE | 2018-11-27 11:40 | Surgery Progress Note ---
Date of Service November 27, 2018 Assessment & Plan (1) Testicular cancer: POD # 2 s/p removal of aport due to bacteremia - external sutures will need removed in 12 days - should keep dressing on , clean and dry Subjective sleeping on entering room, easily awakened no pain at prior port site dressing clean and dry Physical Exam Vital Signs (Past 24 Hours): Last Vital Signs Temp 37.3 C 11/27/18 11:09 Pulse 123 H 11/27/18 11:09 Resp 20 11/27/18 11:09 BP 113/79 11/27/18 11:09 Pulse Ox 98 11/27/18 11:09 Constitutional: + thin and + cachectic Skin: no rashes, warm and dry + incision (covered with dry dressing, no surrounding erythema) Psychiatric: A+Ox3, euthymic affect (1) Testicular cancer Descendance of testis: descended Laterality: left Qualified Code(s): C62.12 - Malignant neoplasm of descended left testis
[2018-11-27] MEDS: DRONABINOL 2.5 MG CAP PO PRN (11:53)
--- NOTE | 2018-11-27 12:41 | Nephrology Progress Note ---
Date of Service November 27, 2018 Assessment & Plan (1) Hyponatremia: (2) Acute kidney failure: 28-year-old male with metastatic testicular cancer s/p recent chemotherapy admitted to the hospital with neutropenic fever, volume depletion, acute kidney injury, hypokalemia, and metabolic acidosis. PO intake has been poor due to ongoing nausea and vomiting after chemotherapy. Clinical presentation consistent with dehydration and ATN. Tolerating IVF well. Continues to require aggressive electrolyte replacement. Continue isotonic IV fluid replacement. Additional 80 mEq KCl this morning ordered (40 mEq IV and 40 mEq PO). Suggest BID PO dosing as tolerated. Patient requires HCO3 replacement. Dysnatremia related to hypovolemia, poor solute intake, nausea. Monitor metabolic profile twice daily. NAGMA associated with renal dysfunction and saline. -- Continue 1/2 NS + 75 mEq NaHCO3 -- Patient will require at least 80 mEq KCl today additionally -- Replace phosphorus - suggest 30+ mmol IV today -- Monitor metabolic profile with magnesium q 12 hours -- Check phosphorus daily (3) Metabolic acidosis: -- IV replacement as Rx (4) Pancytopenia: (5) Neutropenic fever: -- Bld cx + presumed pseudomonas -- Mediport removed (6) S/p nephrectomy: (7) Testicular cancer: (8) Hypoalbuminemia: -- Nutrition consult Subjective No acute events overnight. Appetite remains poor. No diarrhea. No vomiting. No fevers or chills. Weakness improving. Review of Systems All systems reviewed & are unremarkable except as noted in HPI & below Physical Exam Vital Signs (Past 24 Hours): Last Vital Signs Temp 37.3 C 11/27/18 11:09 Pulse 123 H 11/27/18 11:09 Resp 20 11/27/18 11:09 BP 113/79 11/27/18 11:09 Pulse Ox 98 11/27/18 11:09 Constitutional: + ill appearing and + thin; no acute distress Eyes: no scleral abnormality and no corneal abnormality ENMT: Mouth: + dry oral mucous membranes; no oral mucosal abnormality Neck: normal visual inspection and trachea midline Respiratory: normal respiratory effort Auscultation: lungs clear to auscultation bilaterally; no rales and no rhonchi Cardiovascular: Rate/Rhythm: regular rate and regular rhythm Heart Sounds: normal S1 and normal S2; no murmur Gastrointestinal (Abdomen): Inspection/Auscultation: abdomen normal to inspection Percussion/Palpation: abdomen soft; abdomen nontender Musculoskeletal: Extremities: no cyanosis and no clubbing Skin: no rashes and no lesions Neurologic: Motor/Sensory: no tremor and no asterixis Psychiatric: Affect: + depressed affect Results & Data Laboratory Results Laboratory Results - last 24 hr 11/23/18 11/26/18 11/26/18 11:33 13:56 16:18 WBC RBC Hgb Hct MCV MCH MCHC Plt Count Immature Gran % (Auto) Neut % (Auto) Lymph % (Auto) [place] % (Auto) Eos % (Auto) Baso % (Auto) Immature Gran # (Auto) Neut # (Auto) Lymph # (Auto) [place] # (Auto) Eos # (Auto) Baso # (Auto) Neutrophils % (Manual) Band Neutrophils % Lymphocytes % (Manual) Prolymphocyte % Reactive Lymphs % (Man) Monocytes % (Manual) Eosinophils % (Manual) Basophils % (Manual) Metamyelocytes % (Man) Myelocytes % (Man) Promyelocytes % (Man) Blast Cells % (Manual) Plasma Cell % (Manual) Other Cells % Nucleated RBC % Neutrophils # (Manual) Band Neutrophils # Total Absolute Neuts Lymphocytes # (Manual) Prolymphocyte # Reactive Lymphs # Total Abs Lymphocytes Monocytes # (Manual) Eosinophils # (Manual) Basophils # (Manual) Metamyelocytes # (Man) Myelocytes # (Manual) Promyelocytes # (Man) Blast Cells # (Man) Plasma Cell # (Manual) Other Cells # Nucleated RBCs # (Man) Hypersegmented Neuts Hyposegmented Neuts Hypogranular Neuts Large Granular Lymphs # Lrg Granular Lymphs Hairy Cells Smudge Cells Toxic Granulation Toxic Vacuolation Dohle Bodies Didier Rods Hypogranular Platelets Clumped Platelets Giant Platelets Platelet Satelliting RBC Morphology Polychromasia Hypochromasia Poikilocytosis Basophilic Stippling Anisocytosis Microcytosis Macrocytosis Spherocytes Pappenheimer Bodies Sickle Cells Target Cells Tear Drop Cells Ovalocytes Stomatocytes [place] Bodies Echinocytes Acanthocytes (Spur) Rouleaux RBC Agglutinates Schistocytes RBC Morph Comment Sezary Cell Sodium Potassium Chloride Carbon Dioxide Anion Gap BUN Creatinine Est Cr Clr Drug Dosing Est GFR ( Amer) Est GFR (Non-Af Amer) BUN/Creatinine Ratio Glucose POC Glucose 40 L* Calcium Phosphorus Magnesium 2.1 Total Bilirubin AST ALT Alkaline Phosphatase Total Protein Albumin Globulin Albumin/Globulin Ratio Crossmatch See Detail 11/26/18 11/26/18 11/26/18 16:21 16:40 17:09 WBC RBC Hgb Hct MCV MCH MCHC Plt Count Immature Gran % (Auto) Neut % (Auto) Lymph % (Auto) [place] % (Auto) Eos % (Auto) Baso % (Auto) Immature Gran # (Auto) Neut # (Auto) Lymph # (Auto) [place] # (Auto) Eos # (Auto) Baso # (Auto) Neutrophils % (Manual) Band Neutrophils % Lymphocytes % (Manual) Prolymphocyte % Reactive Lymphs % (Man) Monocytes % (Manual) Eosinophils % (Manual) Basophils % (Manual) Metamyelocytes % (Man) Myelocytes % (Man) Promyelocytes % (Man) Blast Cells % (Manual) Plasma Cell % (Manual) Other Cells % Nucleated RBC % Neutrophils # (Manual) Band Neutrophils # Total Absolute Neuts Lymphocytes # (Manual) Prolymphocyte # Reactive Lymphs # Total Abs Lymphocytes Monocytes # (Manual) Eosinophils # (Manual) Basophils # (Manual) Metamyelocytes # (Man) Myelocytes # (Manual) Promyelocytes # (Man) Blast Cells # (Man) Plasma Cell # (Manual) Other Cells # Nucleated RBCs # (Man) Hypersegmented Neuts Hyposegmented Neuts Hypogranular Neuts Large Granular Lymphs # Lrg Granular Lymphs Hairy Cells Smudge Cells Toxic Granulation Toxic Vacuolation Dohle Bodies Didier Rods Hypogranular Platelets Clumped Platelets Giant Platelets Platelet Satelliting RBC Morphology Polychromasia Hypochromasia Poikilocytosis Basophilic Stippling Anisocytosis Microcytosis Macrocytosis Spherocytes Pappenheimer Bodies Sickle Cells Target Cells Tear Drop Cells Ovalocytes Stomatocytes [place] Bodies Echinocytes Acanthocytes (Spur) Rouleaux RBC Agglutinates Schistocytes RBC Morph Comment Sezary Cell Sodium 129 L Potassium 3.4 L Chloride 104 Carbon Dioxide 19 L Anion Gap 6.0 BUN 31 H Creatinine 2.36 H Est Cr Clr Drug Dosing 35.1 Est GFR ( Amer) 42.4 Est GFR (Non-Af Amer) 36.6 BUN/Creatinine Ratio 13.3 Glucose 84 POC Glucose 39 L* 119 H Calcium 8.3 L Phosphorus Magnesium Total Bilirubin AST ALT Alkaline Phosphatase Total Protein Albumin Globulin Albumin/Globulin Ratio Crossmatch 11/26/18 11/26/18 11/26/18 19:23 19:24 19:47 WBC RBC Hgb Hct MCV MCH MCHC Plt Count Immature Gran % (Auto) Neut % (Auto) Lymph % (Auto) [place] % (Auto) Eos % (Auto) Baso % (Auto) Immature Gran # (Auto) Neut # (Auto) Lymph # (Auto) [place] # (Auto) Eos # (Auto) Baso # (Auto) Neutrophils % (Manual) Band Neutrophils % Lymphocytes % (Manual) Prolymphocyte % Reactive Lymphs % (Man) Monocytes % (Manual) Eosinophils % (Manual) Basophils % (Manual) Metamyelocytes % (Man) Myelocytes % (Man) Promyelocytes % (Man) Blast Cells % (Manual) Plasma Cell % (Manual) Other Cells % Nucleated RBC % Neutrophils # (Manual) Band Neutrophils # Total Absolute Neuts Lymphocytes # (Manual) Prolymphocyte # Reactive Lymphs # Total Abs Lymphocytes Monocytes # (Manual) Eosinophils # (Manual) Basophils # (Manual) Metamyelocytes # (Man) Myelocytes # (Manual) Promyelocytes # (Man) Blast Cells # (Man) Plasma Cell # (Manual) Other Cells # Nucleated RBCs # (Man) Hypersegmented Neuts Hyposegmented Neuts Hypogranular Neuts Large Granular Lymphs # Lrg Granular Lymphs Hairy Cells Smudge Cells Toxic Granulation Toxic Vacuolation Dohle Bodies Didier Rods Hypogranular Platelets Clumped Platelets Giant Platelets Platelet Satelliting RBC Morphology Polychromasia Hypochromasia Poikilocytosis Basophilic Stippling Anisocytosis Microcytosis Macrocytosis Spherocytes Pappenheimer Bodies Sickle Cells Target Cells Tear Drop Cells Ovalocytes Stomatocytes [place] Bodies Echinocytes Acanthocytes (Spur) Rouleaux RBC Agglutinates Schistocytes RBC Morph Comment Sezary Cell Sodium Potassium Chloride Carbon Dioxide Anion Gap BUN Creatinine Est Cr Clr Drug Dosing Est GFR ( Amer) Est GFR (Non-Af Amer) BUN/Creatinine Ratio Glucose POC Glucose 52 L* 50 L* 97 Calcium Phosphorus Magnesium Total Bilirubin AST ALT Alkaline Phosphatase Total Protein Albumin Globulin Albumin/Globulin Ratio Crossmatch 11/26/18 11/26/18 11/27/18 21:33 23:38 00:54 WBC RBC Hgb Hct MCV MCH MCHC Plt Count Immature Gran % (Auto) Neut % (Auto) Lymph % (Auto) [place] % (Auto) Eos % (Auto) Baso % (Auto) Immature Gran # (Auto) Neut # (Auto) Lymph # (Auto) [place] # (Auto) Eos # (Auto) Baso # (Auto) Neutrophils % (Manual) Band Neutrophils % Lymphocytes % (Manual) Prolymphocyte % Reactive Lymphs % (Man) Monocytes % (Manual) Eosinophils % (Manual) Basophils % (Manual) Metamyelocytes % (Man) Myelocytes % (Man) Promyelocytes % (Man) Blast Cells % (Manual) Plasma Cell % (Manual) Other Cells % Nucleated RBC % Neutrophils # (Manual) Band Neutrophils # Total Absolute Neuts Lymphocytes # (Manual) Prolymphocyte # Reactive Lymphs # Total Abs Lymphocytes Monocytes # (Manual) Eosinophils # (Manual) Basophils # (Manual) Metamyelocytes # (Man) Myelocytes # (Manual) Promyelocytes # (Man) Blast Cells # (Man) Plasma Cell # (Manual) Other Cells # Nucleated RBCs # (Man) Hypersegmented Neuts Hyposegmented Neuts Hypogranular Neuts Large Granular Lymphs # Lrg Granular Lymphs Hairy Cells Smudge Cells Toxic Granulation Toxic Vacuolation Dohle Bodies Didier Rods Hypogranular Platelets Clumped Platelets Giant Platelets Platelet Satelliting RBC Morphology Polychromasia Hypochromasia Poikilocytosis Basophilic Stippling Anisocytosis Microcytosis Macrocytosis Spherocytes Pappenheimer Bodies Sickle Cells Target Cells Tear Drop Cells Ovalocytes Stomatocytes [place] Bodies Echinocytes Acanthocytes (Spur) Rouleaux RBC Agglutinates Schistocytes RBC Morph Comment Sezary Cell Sodium Potassium Chloride Carbon Dioxide Anion Gap BUN Creatinine Est Cr Clr Drug Dosing Est GFR ( Amer) Est GFR (Non-Af Amer) BUN/Creatinine Ratio Glucose POC Glucose 107 H 85 89 Calcium Phosphorus Magnesium Total Bilirubin AST ALT Alkaline Phosphatase Total Protein Albumin Globulin Albumin/Globulin Ratio Crossmatch 11/27/18 11/27/18 11/27/18 02:00 03:03 04:13 WBC RBC Hgb Hct MCV MCH MCHC Plt Count Immature Gran % (Auto) Neut % (Auto) Lymph % (Auto) [place] % (Auto) Eos % (Auto) Baso % (Auto) Immature Gran # (Auto) Neut # (Auto) Lymph # (Auto) [place] # (Auto) Eos # (Auto) Baso # (Auto) Neutrophils % (Manual) Band Neutrophils % Lymphocytes % (Manual) Prolymphocyte % Reactive Lymphs % (Man) Monocytes % (Manual) Eosinophils % (Manual) Basophils % (Manual) Metamyelocytes % (Man) Myelocytes % (Man) Promyelocytes % (Man) Blast Cells % (Manual) Plasma Cell % (Manual) Other Cells % Nucleated RBC % Neutrophils # (Manual) Band Neutrophils # Total Absolute Neuts Lymphocytes # (Manual) Prolymphocyte # Reactive Lymphs # Total Abs Lymphocytes Monocytes # (Manual) Eosinophils # (Manual) Basophils # (Manual) Metamyelocytes # (Man) Myelocytes # (Manual) Promyelocytes # (Man) Blast Cells # (Man) Plasma Cell # (Manual) Other Cells # Nucleated RBCs # (Man) Hypersegmented Neuts Hyposegmented Neuts Hypogranular Neuts Large Granular Lymphs # Lrg Granular Lymphs Hairy Cells Smudge Cells Toxic Granulation Toxic Vacuolation Dohle Bodies Didier Rods Hypogranular Platelets Clumped Platelets Giant Platelets Platelet Satelliting RBC Morphology Polychromasia Hypochromasia Poikilocytosis Basophilic Stippling Anisocytosis Microcytosis Macrocytosis Spherocytes Pappenheimer Bodies Sickle Cells Target Cells Tear Drop Cells Ovalocytes Stomatocytes [place] Bodies Echinocytes Acanthocytes (Spur) Rouleaux RBC Agglutinates Schistocytes RBC Morph Comment Sezary Cell Sodium Potassium Chloride Carbon Dioxide Anion Gap BUN Creatinine Est Cr Clr Drug Dosing Est GFR ( Amer) Est GFR (Non-Af Amer) BUN/Creatinine Ratio Glucose POC Glucose 80 91 98 Calcium Phosphorus Magnesium Total Bilirubin AST ALT Alkaline Phosphatase Total Protein Albumin Globulin Albumin/Globulin Ratio Crossmatch 11/27/18 11/27/18 11/27/18 05:56 06:02 06:02 WBC 0.09 L* RBC 2.60 L Hgb 7.7 L Hct 21.0 L MCV 80.8 MCH 29.6 MCHC 36.7 H Plt Count 19 L* Immature Gran % (Auto) Cancelled Neut % (Auto) Cancelled Lymph % (Auto) Cancelled [place] % (Auto) Cancelled Eos % (Auto) Cancelled Baso % (Auto) Cancelled Immature Gran # (Auto) Cancelled Neut # (Auto) Cancelled Lymph # (Auto) Cancelled [place] # (Auto) Cancelled Eos # (Auto) Cancelled Baso # (Auto) Cancelled Neutrophils % (Manual) Cancelled Band Neutrophils % Cancelled Lymphocytes % (Manual) Cancelled Prolymphocyte % Cancelled Reactive Lymphs % (Man) Cancelled Monocytes % (Manual) Cancelled Eosinophils % (Manual) Cancelled Basophils % (Manual) Cancelled Metamyelocytes % (Man) Cancelled Myelocytes % (Man) Cancelled Promyelocytes % (Man) Cancelled Blast Cells % (Manual) Cancelled Plasma Cell % (Manual) Cancelled Other Cells % Cancelled Nucleated RBC % Cancelled Neutrophils # (Manual) Cancelled Band Neutrophils # Cancelled Total Absolute Neuts Cancelled Lymphocytes # (Manual) Cancelled Prolymphocyte # Cancelled Reactive Lymphs # Cancelled Total Abs Lymphocytes Cancelled Monocytes # (Manual) Cancelled Eosinophils # (Manual) Cancelled Basophils # (Manual) Cancelled Metamyelocytes # (Man) Cancelled Myelocytes # (Manual) Cancelled Promyelocytes # (Man) Cancelled Blast Cells # (Man) Cancelled Plasma Cell # (Manual) Cancelled Other Cells # Cancelled Nucleated RBCs # (Man) Cancelled Hypersegmented Neuts Cancelled Hyposegmented Neuts Cancelled Hypogranular Neuts Cancelled Large Granular Lymphs Cancelled # Lrg Granular Lymphs Cancelled Hairy Cells Cancelled Smudge Cells Cancelled Toxic Granulation Cancelled Toxic Vacuolation Cancelled Dohle Bodies Cancelled Didier Rods Cancelled Hypogranular Platelets Cancelled Clumped Platelets Cancelled Giant Platelets Cancelled Platelet Satelliting Cancelled RBC Morphology Cancelled Polychromasia Cancelled Hypochromasia Cancelled Poikilocytosis Cancelled Basophilic Stippling Cancelled Anisocytosis Cancelled Microcytosis Cancelled Macrocytosis Cancelled Spherocytes Cancelled Pappenheimer Bodies Cancelled Sickle Cells Cancelled Target Cells Cancelled Tear Drop Cells Cancelled Ovalocytes Cancelled Stomatocytes Cancelled [place] Bodies Cancelled Echinocytes Cancelled Acanthocytes (Spur) Cancelled Rouleaux Cancelled RBC Agglutinates Cancelled Schistocytes Cancelled RBC Morph Comment Cancelled Sezary Cell Cancelled Sodium 130 L Potassium 2.9 L Chloride 104 Carbon Dioxide 18 L Anion Gap 9.0 BUN 29 H Creatinine 2.16 H Est Cr Clr Drug Dosing 38.3 Est GFR ( Amer) 47.2 Est GFR (Non-Af Amer) 40.8 BUN/Creatinine Ratio 13.2 Glucose 111 H POC Glucose 108 H Calcium 8.2 L Phosphorus 1.2 L* Magnesium 1.4 L Total Bilirubin 0.9 AST 15 ALT 14 Alkaline Phosphatase 192 H Total Protein 5.4 L Albumin 1.9 L Globulin 3.5 Albumin/Globulin Ratio 0.5 L Crossmatch 11/27/18 11/27/18 11/27/18 07:08 08:04 09:08 WBC RBC Hgb Hct MCV MCH MCHC Plt Count Immature Gran % (Auto) Neut % (Auto) Lymph % (Auto) [place] % (Auto) Eos % (Auto) Baso % (Auto) Immature Gran # (Auto) Neut # (Auto) Lymph # (Auto) [place] # (Auto) Eos # (Auto) Baso # (Auto) Neutrophils % (Manual) Band Neutrophils % Lymphocytes % (Manual) Prolymphocyte % Reactive Lymphs % (Man) Monocytes % (Manual) Eosinophils % (Manual) Basophils % (Manual) Metamyelocytes % (Man) Myelocytes % (Man) Promyelocytes % (Man) Blast Cells % (Manual) Plasma Cell % (Manual) Other Cells % Nucleated RBC % Neutrophils # (Manual) Band Neutrophils # Total Absolute Neuts Lymphocytes # (Manual) Prolymphocyte # Reactive Lymphs # Total Abs Lymphocytes Monocytes # (Manual) Eosinophils # (Manual) Basophils # (Manual) Metamyelocytes # (Man) Myelocytes # (Manual) Promyelocytes # (Man) Blast Cells # (Man) Plasma Cell # (Manual) Other Cells # Nucleated RBCs # (Man) Hypersegmented Neuts Hyposegmented Neuts Hypogranular Neuts Large Granular Lymphs # Lrg Granular Lymphs Hairy Cells Smudge Cells Toxic Granulation Toxic Vacuolation Dohle Bodies Didier Rods Hypogranular Platelets Clumped Platelets Giant Platelets Platelet Satelliting RBC Morphology Polychromasia Hypochromasia Poikilocytosis Basophilic Stippling Anisocytosis Microcytosis Macrocytosis Spherocytes Pappenheimer Bodies Sickle Cells Target Cells Tear Drop Cells Ovalocytes Stomatocytes [place] Bodies Echinocytes Acanthocytes (Spur) Rouleaux RBC Agglutinates Schistocytes RBC Morph Comment Sezary Cell Sodium Potassium Chloride Carbon Dioxide Anion Gap BUN Creatinine Est Cr Clr Drug Dosing Est GFR ( Amer) Est GFR (Non-Af Amer) BUN/Creatinine Ratio Glucose POC Glucose 128 H 141 H 155 H Calcium Phosphorus Magnesium Total Bilirubin AST ALT Alkaline Phosphatase Total Protein Albumin Globulin Albumin/Globulin Ratio Crossmatch 11/27/18 11/27/18 10:01 11:08 WBC RBC Hgb Hct MCV MCH MCHC Plt Count Immature Gran % (Auto) Neut % (Auto) Lymph % (Auto) [place] % (Auto) Eos % (Auto) Baso % (Auto) Immature Gran # (Auto) Neut # (Auto) Lymph # (Auto) [place] # (Auto) Eos # (Auto) Baso # (Auto) Neutrophils % (Manual) Band Neutrophils % Lymphocytes % (Manual) Prolymphocyte % Reactive Lymphs % (Man) Monocytes % (Manual) Eosinophils % (Manual) Basophils % (Manual) Metamyelocytes % (Man) Myelocytes % (Man) Promyelocytes % (Man) Blast Cells % (Manual) Plasma Cell % (Manual) Other Cells % Nucleated RBC % Neutrophils # (Manual) Band Neutrophils # Total Absolute Neuts Lymphocytes # (Manual) Prolymphocyte # Reactive Lymphs # Total Abs Lymphocytes Monocytes # (Manual) Eosinophils # (Manual) Basophils # (Manual) Metamyelocytes # (Man) Myelocytes # (Manual) Promyelocytes # (Man) Blast Cells # (Man) Plasma Cell # (Manual) Other Cells # Nucleated RBCs # (Man) Hypersegmented Neuts Hyposegmented Neuts Hypogranular Neuts Large Granular Lymphs # Lrg Granular Lymphs Hairy Cells Smudge Cells Toxic Granulation Toxic Vacuolation Dohle Bodies Didier Rods Hypogranular Platelets Clumped Platelets Giant Platelets Platelet Satelliting RBC Morphology Polychromasia Hypochromasia Poikilocytosis Basophilic Stippling Anisocytosis Microcytosis Macrocytosis Spherocytes Pappenheimer Bodies Sickle Cells Target Cells Tear Drop Cells Ovalocytes Stomatocytes [place] Bodies Echinocytes Acanthocytes (Spur) Rouleaux RBC Agglutinates Schistocytes RBC Morph Comment Sezary Cell Sodium Potassium Chloride Carbon Dioxide Anion Gap BUN Creatinine Est Cr Clr Drug Dosing Est GFR ( Amer) Est GFR (Non-Af Amer) BUN/Creatinine Ratio Glucose POC Glucose 200 H 206 H Calcium Phosphorus Magnesium Total Bilirubin AST ALT Alkaline Phosphatase Total Protein Albumin Globulin Albumin/Globulin Ratio Crossmatch (1) Acute kidney failure Acute renal failure type: unspecified Qualified Code(s): N17.9 - Acute kidney failure, unspecified (2) Testicular cancer Descendance of testis: descended Laterality: left Qualified Code(s): C62.12 - Malignant neoplasm of descended left testis
[2018-11-27] MEDS: SODIUM BICARBONATE 8.4% 75 MEQ in SODIUM CHLORIDE 0.45 % 1,000 ML IV SCH (13:30)
--- NOTE | 2018-11-27 13:30 | Pharmacy Report ---
Pharmacy Glycemic Short Note 2 - Date of Service November 27, 2018 - Glycemic Short BSG Results (Last 24 hours): 11/26/18 11/26/18 11/26/18 16:18 16:21 16:40 Glucose POC Glucose 40 L* 39 L* 119 H 11/26/18 11/26/18 11/26/18 17:09 19:23 19:24 Glucose 84 POC Glucose 52 L* 50 L* 11/26/18 11/26/18 11/26/18 19:47 21:33 23:38 Glucose POC Glucose 97 107 H 85 11/27/18 11/27/18 11/27/18 00:54 02:00 03:03 Glucose POC Glucose 89 80 91 11/27/18 11/27/18 11/27/18 04:13 05:56 06:02 Glucose 111 H POC Glucose 98 108 H 11/27/18 11/27/18 11/27/18 07:08 08:04 09:08 Glucose POC Glucose 128 H 141 H 155 H 11/27/18 11/27/18 10:01 11:08 Glucose POC Glucose 200 H 206 H OUTPATIENT ANTIDIABETIC REGIMEN: * Tresiba 21 units qPM * Lispro SS (1 unit per 10 grams CHO) ASSESSMENT: 11/27 * Patient received 17 units of insulin yesterday- 10 of lantus/7 correctional * Patient continues to have limited po intake- dextrose @75 ml/hr; 1/2NS + bicarb @ 75 * Patients hypoglycemic yesterday after reduction in dextrose- reduce lantus today * Carb ratio currently not ordered, loosened goal range 11/26 * BSGs elevated yesterday- fluids were increased to 125 ml/hr * Patient received 13 units of insulin yesterday * 10 units of lantus this AM, Tighten CF/CR * Patient continues to have limited po intake, expect cutting dextrose altogether would result in hypoglycemia * Removed dextrose from the 1/2NS/Bicarb- dextrose to run @50 ml/hr and 1/2NS + Bicarb at 75 ml/hr for total 125 ml/hr * If BSGs continue to be elevated may be able to discontinue dextrose 11/25 * Fluids reduced from D10 to D5+1/2NS+bicarb overnight, hypoglycemic overnight (49), up to 228 at lunch * Gave 5 units of lantus at lunchtime (half of yesterdays dose) * ?remove dextrose from current fluid and run separately at lower rate? Would need some form of glucose to prevent ketosis * Will continue overnight glucose checks 11/24 * Patient's BSGs low overnight continue to be on lower end today, has required 0 units of correctional/prandial * Has dextrose infusion running, low dose of lantus this afternoon * Continue to monitor 11/23 * 28 yr old T1DM male well known to the glycemic service admitted for febrile neutropenia. He complains of nausea, vomiting, and dizziness that started two days ago. He has had poor oral intake due to symptoms. * Per discussion with provider, patient missed his dose of Tresiba last evening (his last dose was Saturday evening). Typically for patients who are basal deficient I would partially make up for missed dose, however I am hesitant in this case due to poor oral intake, N/V, and ADRI. I have ordered a one time dose of 20 units of Lantus. Additional can be given this evening if severe hyperglycemia is noted. * During previous admissions, Brett required 15-30 units of basal per day while on dexamethasone. He has required much smaller doses (5-10 units of basal daily) when not on steroids- we have limited BSG data with patient not on steroids. PLAN FOR INPATIENT GLYCEMIC CONTROL: * Basal insulin * Lantus 3 units SQ x 1 * 3 units ordered with dinner if BSG >180 * Further dosing to be determined based on BSG trend * Bolus insulin * NovoLog per scale ACHS or Q6hrs while NPO * Goal Range: Low 140 mg/dL - High 180 mg/dL * Correction Factor: 40 mg/dL/unit * Nutritional / Prandial insulin per carb ratio of 1 unit per grams CHO consumed * Add overnight checks
--- NOTE | 2018-11-27 14:29 | Infectious Disease Progress Nt ---
Date of Service November 27, 2018 Assessment & Plan (1) Bacteremia due to Pseudomonas: 28-year-old male with metastatic testicular cancer with pancytopenia from chemotherapy now with pseudomonal bacteremia in the setting of indwelling [id number] now removed. Patient to be treated with cefepime alone, and would recommend 10-day course for bacteremia. Would obtain follow-up blood cultures to ensure clearance of bacteremia. Will follow. (2) Pancytopenia: Subjective Patient seen in follow-up for pseudomonal bacteremia. Feeling slightly better, no vomiting. Has been afebrile for 2 days. No other new specific complaints. Physical Exam Vital Signs (Past 24 Hours): Last Vital Signs Temp 37.3 C 11/27/18 11:09 Pulse 123 H 11/27/18 11:09 Resp 20 11/27/18 11:09 BP 113/79 11/27/18 11:09 Pulse Ox 98 11/27/18 11:09 Constitutional: + ill appearing and + cachectic; no acute distress Eyes: PERRL, conjunctivae normal, anicteric sclerae ENMT: external ear and nose normal, oropharynx normal Neck: trachea midline, no thyromegaly neck nontender Respiratory: normal respiratory effort, lungs clear to auscultation normal percussion; no respiratory distress Cardiovascular: Rate/Rhythm: regular rate and regular rhythm Heart Sounds: normal S1 and normal S2; no gallop, no murmur and no cardiac rub Gastrointestinal (Abdomen): normal bowel sounds, soft, nontender, no hepatospl enomegaly Musculoskeletal: no cyanosis or clubbing, extremities motor strength 5/5 No spinal tenderness, no joint swelling or erythema Skin: no rashes, warm and dry no lesions Dressing intact chest wall Neurologic: moves all extremities and awake; no focal motor deficits Motor/Sensory: no sensory deficit Psychiatric: A+Ox3, euthymic affect Lymphatic: no cervical or axillary lymphadenopathy no inguinal lymphadenopathy Results & Data Laboratory Results Short CBC 11/27/18 Range/Units 06:02 WBC 0.09 L* (4.8-10.8) K/uL Hgb 7.7 L (14.0-18.0) g/dL Hct 21.0 L (42-52) % Plt Count 19 L* (130-400) K/uL BMP 11/26/18 11/27/18 17:09 06:02 Sodium 129 L 130 L Potassium 3.4 L 2.9 L Chloride 104 104 Carbon Dioxide 19 L 18 L BUN 31 H 29 H Creatinine 2.36 H 2.16 H Glucose 84 111 H Calcium 8.3 L 8.2 L Liver Function 11/27/18 Range/Units 06:02 Total Bilirubin 0.9 (0.2-1) mg/dl AST 15 (15-37) U/L ALT 14 (12-78) U/L Alkaline Phosphatase 192 H (45-117) U/L Albumin 1.9 L (3.4-5.0) gm/dl Diagnostic Findings Microbiology 11/25/18 17:36 Chest Gram Stain - Final 11/25/18 17:36 Chest Aerobic and Anaerobic Culture - Preliminary No growth to date. 11/23/18 19:50 Urine,Clean Catch Urine Culture - Final No growth - less than 1,000 colonies/mL. 11/23/18 11:57 Urine,Clean Catch Urine Culture - Final No growth - less than 1,000 colonies/mL. 11/23/18 13:19 Blood Blood Culture - Final Pseudomonas aeruginosa 11/23/18 12:21 Blood Blood Culture - Final Pseudomonas aeruginosa
[2018-11-27] MEDS ORDERED: NORMOSOL-R 500 ML IV ONE ×2 (15:13→17:48)
[2018-11-27 16:07] LABS: BUN Creatinine Ratio 12.6 (10-20); Calcium 8.1 mg/dl (8.5-10.1); Creatinine Clr Calc Pharmacy 38.2 ml/min; Est GFR (Non-African American) 40.5; Potassium 3.2 mmol/L (3.5-5.1)
[2018-11-27] MEDS ORDERED: INSULIN GLARGINE SOLOSTAR 100 UNITS/ML 3 ML PEN SC SCH (16:30)
[2018-11-27] MEDS: OXYCODONE HCL IR 5 MG TAB (IMMEDIATE RELEASE) PO PRN (19:08)
[2018-11-27] MEDS ORDERED: POTASSIUM PHOSPHATE 15 MMOL in SODIUM CHLORIDE 0.9% 250 ML IV ONE (19:45)
[2018-11-27] MEDS: ACETAMINOPHEN 325 MG TAB PO PRN (20:25)
[2018-11-27] MEDS: HYDROCORTISONE HC 2.5% CRM 30GM TUBE EXT SCH (21:51)
[2018-11-28] MEDS: POTASSIUM CHLORIDE / WTR 10 MEQ/100 ML PLCT IV SCH ×4 (00:01→03:12)
[2018-11-28] MEDS: INSULIN ASPART 100 UNITS/ML 3 ML PEN SC SCH ×6 (01:01→20:58)
[2018-11-28] MEDS: SODIUM BICARBONATE 8.4% 75 MEQ in SODIUM CHLORIDE 0.45 % 1,000 ML IV SCH ×2 (03:12→21:22)
[2018-11-28] MEDS: CLOTRIMAZOLE 10 MG TROCHE BUCCAL SCH ×5 (06:11→23:12)
[2018-11-28] MEDS: MoRPHine SULFATE CR 15 MG TABCR PO SCH ×3 (06:11→21:23)
[2018-11-28] MEDS: DEXTROSE 5% 1,000 ML IV SCH (06:29)
[2018-11-28 07:06] LABS: Albumin Level 1.7 gm/dl (3.4-5.0); Est GFR (African American) 45.2; Magnesium 1.4 mg/dl (1.8-2.4); Potassium 3.3 mmol/L (3.5-5.1)
[2018-11-28 07:11] LABS: Albumin Globulin Ratio 0.5 (0.9-2); Bilirubin,Total 0.8 mg/dl (0.2-1); Globulin 3.4 gm/dl (2.5-4.0); Phosphorus 1.9 mg/dl (2.5-4.9); Total Protein 5.1 gm/dl (6.4-8.2)
[2018-11-28 07:14] LABS: Hematocrit (blood only) 20.5 % (42-52); Hemoglobin 7.3 g/dL (14.0-18.0); Mean Corpuscular Hemoglobin 29.6 pg (25-34); Mean Corpuscular Hgb Conc 35.6 g/dL (32-36); Platelet Count 12 K/uL (130-400); RDW Coefficient of Variation 16.7 % (11.5-14.5); RDW Standard Deviation 50.2 fL (36.4-46.3); Red Blood Count 2.47 M/uL (4.7-6.1); White Blood Count 0.31 K/uL (4.8-10.8)
[2018-11-28] MEDS ORDERED: SODIUM CHLORIDE 0.9% 250 ML IV PRN (07:21)
[2018-11-28] MEDS ORDERED: POTASSIUM PHOS 3 MMOL/1 ML INFUSION IV STA (08:29)
[2018-11-28] MEDS: POTASSIUM CHLORIDE / WTR 20 MEQ/100 ML PLCT IV SCH ×2 (08:58→10:52)
[2018-11-28] MEDS: SUCRALFATE 1 GM/10 ML UDC PO SCH ×4 (08:58→19:56)
[2018-11-28] MEDS: MULTIVITAMIN TAB PO SCH (08:59)
[2018-11-28] MEDS: FILGRASTIM 480 MCG/1.6 ML VIAL SC SCH (08:59)
[2018-11-28] MEDS: MAGNESIUM SULFATE / D5W 1 GM/100 ML BAG IV SCH ×2 (08:59→10:04)
[2018-11-28] MEDS ORDERED: INSULIN GLARGINE SOLOSTAR 100 UNITS/ML 3 ML PEN SC ONE (09:00)
[2018-11-28] MEDS: NICOTINE 21 MG/24 HR TDSY TD SCH (09:00)
[2018-11-28] MEDS: PANTOprazole 40 MG TAB PO SCH (09:00)
[2018-11-28] MEDS: VALACYCLOVIR HCL 500 MG TABLET PO SCH (09:00)
[2018-11-28] MEDS ORDERED: POTASSIUM PHOSPHATE 30 MMOL in SODIUM CHLORIDE 0.9% 500 ML IV ONE (09:00)
[2018-11-28] MEDS: ALPRAZolam 0.5 MG TABLET PO SCH ×2 (09:00→19:58)
--- NOTE | 2018-11-28 09:11 | Progress Note ---
DATE: 11/28/2018 MEDICAL ONCOLOGY PROGRESS NOTE DIAGNOSES: 1. Neutropenic fever. 2. Pseudomonal bacteremia. 3. Acute renal injury. 4. Hypoalbuminemia. 5. Metastatic testicular cancer. 6. Status post cycle 4 TIP combination chemotherapy. SUBJECTIVE: Brett was seen and examined this morning. He continues to make slow but steady progress. MediPort was removed after he developed a pseudomonal bacteremia. He continues on broad-spectrum antimicrobials. He has no complaint of pain; however, he is not eating much. His breakfast was getting cold at bedside and encouraged him to eat as his albumin is quite low. Brett remains profoundly neutropenic and should receive a platelet transfusion and perhaps 2 units of packed RBCs within the next 24 hours. Nursing reports no overnight difficulties. PHYSICAL EXAMINATION: GENERAL: Brett is awake, alert and appropriate. VITAL SIGNS: Temperature 37.7, pulse 121, respiratory rate 16, blood pressure 107/64. SKIN: Without rash or lesion. HEENT: Oral mucosa without evidence of thrush. HEART: Regular rate and rhythm. LUNGS: Clear to auscultation bilaterally. ABDOMEN: Soft, nontender, nondistended. EXTREMITIES: No clubbing, cyanosis or edema. NEUROLOGIC: Grossly intact. LABORATORY DATA: WBC count 310, hemoglobin 7.3, platelet count 12,000. Sodium 129, potassium 3.3, chloride 102, carbon dioxide 19, creatinine 2.24, BUN 27, magnesium 1.4, phosphorus 1.9, albumin 1.7. IMPRESSION: 1. Pseudomonal bacteremia. 2. Electrolyte dysfunction. 3. Hypoalbuminemia. 4. Acute renal injury. 5. Metastatic testicular cancer. PLAN: Brett was seen and examined this morning. Recommend 2 units of packed RBCs and single-donor platelets today. He needs both magnesium and phosphorus administered today. Continue Neupogen 480 mcg subQ on a daily basis. Perhaps he should be placed on an appetite stimulant such as Megace. His protein intake needs to improve. Maintain adequate IV hydration in the hopes his renal function returns towards baseline. We will continue to follow him on a periodic basis. Dr. Cruz will be rounding over the weekend.
[2018-11-28] MEDS: ACETAMINOPHEN 325 MG TAB PO PRN (10:05)
[2018-11-28] MEDS: DRONABINOL 2.5 MG CAP PO PRN ×2 (12:32→17:07)
--- NOTE | 2018-11-28 13:37 | Nephrology Progress Note ---
Date of Service November 28, 2018 Assessment & Plan (1) Hyponatremia: (2) Acute kidney failure: 28-year-old male with metastatic testicular cancer s/p recent chemotherapy admitted to the hospital with neutropenic fever, volume depletion, acute kidney injury, hypokalemia, and metabolic acidosis. PO intake has been poor due to ongoing nausea and vomiting after chemotherapy. Clinical presentation consistent with dehydration and ATN. Tolerating IVF well. Continues to require aggressive electrolyte replacement. Continue isotonic IV fluid replacement. Additional 40 mEq KCl this morning ordered. Suggest BID PO dosing as tolerated. Patient requires HCO3 replacement. Dysnatremia related to hypovolemia, poor solute intake, nausea. Monitor metabolic profile twice daily. NAGMA associated with renal dysfunction and saline. Additional 2 gm IV Mg SO4 ordered this AM as well. Patient is persistently hypophosphatemic -- Continue 1/2 NS + 75 mEq NaHCO3 -- Replace phosphorus - 30 mmol IV today and continue to monitor daily -- Monitor metabolic profile with magnesium q 12 hours -- Check phosphorus daily (3) Metabolic acidosis: -- IV replacement as Rx (4) Pancytopenia: (5) Neutropenic fever: -- Bld cx + presumed pseudomonas -- Mediport removed (6) S/p nephrectomy: (7) Testicular cancer: (8) Hypoalbuminemia: -- Nutrition consult Subjective No acute events overnight. Appetite remains poor. No diarrhea. No vomiting. No fevers or chills. Weakness improving. Plan of care discussed with Dr. Mckee. Review of Systems All systems reviewed & are unremarkable except as noted in HPI & below Physical Exam Vital Signs (Past 24 Hours): Last Vital Signs Temp 37.7 C H 11/28/18 13:15 Pulse 124 H 11/28/18 13:15 Resp 18 11/28/18 13:15 BP 111/75 11/28/18 13:15 Pulse Ox 96 11/28/18 12:30 Constitutional: + ill appearing (chronically) and + thin; no acute distress Eyes: no scleral abnormality and no corneal abnormality ENMT: Mouth: + dry oral mucous membranes; no oral mucosal abnormality Neck: normal visual inspection and trachea midline Respiratory: normal respiratory effort Auscultation: lungs clear to auscultation bilaterally; no rales and no rhonchi Cardiovascular: Rate/Rhythm: regular rate and regular rhythm Heart Sounds: normal S1 and normal S2; no murmur Gastrointestinal (Abdomen): Inspection/Auscultation: abdomen normal to inspection Percussion/Palpation: abdomen soft; abdomen nontender Musculoskeletal: Extremities: no cyanosis and no clubbing Skin: no rashes and no lesions Neurologic: Motor/Sensory: no tremor and no asterixis Psychiatric: Affect: + depressed affect Results & Data Laboratory Results Laboratory Results - last 24 hr 11/26/18 11/27/18 11/27/18 08:36 15:31 16:22 WBC RBC Hgb Hct MCV MCH MCHC RDW Std Deviation RDW Coeff of Zuleima Plt Count Immature Gran % (Auto) Neut % (Auto) Lymph % (Auto) [place] % (Auto) Eos % (Auto) Baso % (Auto) Immature Gran # (Auto) Neut # (Auto) Lymph # (Auto) [place] # (Auto) Eos # (Auto) Baso # (Auto) Neutrophils % (Manual) Band Neutrophils % Lymphocytes % (Manual) Prolymphocyte % Reactive Lymphs % (Man) Monocytes % (Manual) Eosinophils % (Manual) Basophils % (Manual) Metamyelocytes % (Man) Myelocytes % (Man) Promyelocytes % (Man) Blast Cells % (Manual) Plasma Cell % (Manual) Other Cells % Nucleated RBC % Neutrophils # (Manual) Band Neutrophils # Total Absolute Neuts Lymphocytes # (Manual) Prolymphocyte # Reactive Lymphs # Total Abs Lymphocytes Monocytes # (Manual) Eosinophils # (Manual) Basophils # (Manual) Metamyelocytes # (Man) Myelocytes # (Manual) Promyelocytes # (Man) Blast Cells # (Man) Plasma Cell # (Manual) Other Cells # Nucleated RBCs # (Man) Hypersegmented Neuts Hyposegmented Neuts Hypogranular Neuts Large Granular Lymphs # Lrg Granular Lymphs Hairy Cells Smudge Cells Toxic Granulation Toxic Vacuolation Dohle Bodies Didier Rods Platelet Estimate Hypogranular Platelets Clumped Platelets Giant Platelets Platelet Satelliting RBC Morphology Polychromasia Hypochromasia Poikilocytosis Basophilic Stippling Anisocytosis Microcytosis Macrocytosis Spherocytes Pappenheimer Bodies Sickle Cells Target Cells Tear Drop Cells Ovalocytes Stomatocytes [place] Bodies Echinocytes Acanthocytes (Spur) Rouleaux RBC Agglutinates Schistocytes RBC Morph Comment Sezary Cell Sodium 129 L Potassium 3.2 L Chloride 103 Carbon Dioxide 19 L Anion Gap 8.0 BUN 27 H Creatinine 2.17 H Est Cr Clr Drug Dosing 38.2 Est GFR ( Amer) 47.0 Est GFR (Non-Af Amer) 40.5 BUN/Creatinine Ratio 12.6 Glucose 179 H POC Glucose 200 H Calcium 8.1 L Phosphorus Magnesium Total Bilirubin AST ALT Alkaline Phosphatase Total Protein Albumin Globulin Albumin/Globulin Ratio Blood Type Cancelled Rho(D) Type Cancelled Antibody Screen Cancelled Crossmatch See Detail 11/27/18 11/27/18 11/28/18 19:37 23:53 03:49 WBC RBC Hgb Hct MCV MCH MCHC RDW Std Deviation RDW Coeff of Zuleima Plt Count Immature Gran % (Auto) Neut % (Auto) Lymph % (Auto) [place] % (Auto) Eos % (Auto) Baso % (Auto) Immature Gran # (Auto) Neut # (Auto) Lymph # (Auto) [place] # (Auto) Eos # (Auto) Baso # (Auto) Neutrophils % (Manual) Band Neutrophils % Lymphocytes % (Manual) Prolymphocyte % Reactive Lymphs % (Man) Monocytes % (Manual) Eosinophils % (Manual) Basophils % (Manual) Metamyelocytes % (Man) Myelocytes % (Man) Promyelocytes % (Man) Blast Cells % (Manual) Plasma Cell % (Manual) Other Cells % Nucleated RBC % Neutrophils # (Manual) Band Neutrophils # Total Absolute Neuts Lymphocytes # (Manual) Prolymphocyte # Reactive Lymphs # Total Abs Lymphocytes Monocytes # (Manual) Eosinophils # (Manual) Basophils # (Manual) Metamyelocytes # (Man) Myelocytes # (Manual) Promyelocytes # (Man) Blast Cells # (Man) Plasma Cell # (Manual) Other Cells # Nucleated RBCs # (Man) Hypersegmented Neuts Hyposegmented Neuts Hypogranular Neuts Large Granular Lymphs # Lrg Granular Lymphs Hairy Cells Smudge Cells Toxic Granulation Toxic Vacuolation Dohle Bodies Didier Rods Platelet Estimate Hypogranular Platelets Clumped Platelets Giant Platelets Platelet Satelliting RBC Morphology Polychromasia Hypochromasia Poikilocytosis Basophilic Stippling Anisocytosis Microcytosis Macrocytosis Spherocytes Pappenheimer Bodies Sickle Cells Target Cells Tear Drop Cells Ovalocytes Stomatocytes [place] Bodies Echinocytes Acanthocytes (Spur) Rouleaux RBC Agglutinates Schistocytes RBC Morph Comment Sezary Cell Sodium Potassium Chloride Carbon Dioxide Anion Gap BUN Creatinine Est Cr Clr Drug Dosing Est GFR ( Amer) Est GFR (Non-Af Amer) BUN/Creatinine Ratio Glucose POC Glucose 184 H 211 H 211 H Calcium Phosphorus Magnesium Total Bilirubin AST ALT Alkaline Phosphatase Total Protein Albumin Globulin Albumin/Globulin Ratio Blood Type Rho(D) Type Antibody Screen Crossmatch 11/28/18 11/28/18 11/28/18 05:55 05:55 07:04 WBC 0.31 L* RBC 2.47 L Hgb 7.3 L Hct 20.5 L* MCV 83.0 MCH 29.6 MCHC 35.6 RDW Std Deviation 50.2 H RDW Coeff of Zuleima 16.7 H Plt Count 12 L* Immature Gran % (Auto) Cancelled Neut % (Auto) Cancelled Lymph % (Auto) Cancelled [place] % (Auto) Cancelled Eos % (Auto) Cancelled Baso % (Auto) Cancelled Immature Gran # (Auto) Cancelled Neut # (Auto) Cancelled Lymph # (Auto) Cancelled [place] # (Auto) Cancelled Eos # (Auto) Cancelled Baso # (Auto) Cancelled Neutrophils % (Manual) Cancelled Band Neutrophils % Cancelled Lymphocytes % (Manual) Cancelled Prolymphocyte % Cancelled Reactive Lymphs % (Man) Cancelled Monocytes % (Manual) Cancelled Eosinophils % (Manual) Cancelled Basophils % (Manual) Cancelled Metamyelocytes % (Man) Cancelled Myelocytes % (Man) Cancelled Promyelocytes % (Man) Cancelled Blast Cells % (Manual) Cancelled Plasma Cell % (Manual) Cancelled Other Cells % Cancelled Nucleated RBC % Cancelled Neutrophils # (Manual) Cancelled Band Neutrophils # Cancelled Total Absolute Neuts Cancelled Lymphocytes # (Manual) Cancelled Prolymphocyte # Cancelled Reactive Lymphs # Cancelled Total Abs Lymphocytes Cancelled Monocytes # (Manual) Cancelled Eosinophils # (Manual) Cancelled Basophils # (Manual) Cancelled Metamyelocytes # (Man) Cancelled Myelocytes # (Manual) Cancelled Promyelocytes # (Man) Cancelled Blast Cells # (Man) Cancelled Plasma Cell # (Manual) Cancelled Other Cells # Cancelled Nucleated RBCs # (Man) Cancelled Hypersegmented Neuts Cancelled Hyposegmented Neuts Cancelled Hypogranular Neuts Cancelled Large Granular Lymphs Cancelled # Lrg Granular Lymphs Cancelled Hairy Cells Cancelled Smudge Cells Cancelled Toxic Granulation Cancelled Toxic Vacuolation Cancelled Dohle Bodies Cancelled Didier Rods Cancelled Platelet Estimate SIGNIFIC DECREASED Hypogranular Platelets Cancelled Clumped Platelets Cancelled Giant Platelets Cancelled Platelet Satelliting Cancelled RBC Morphology Cancelled Polychromasia Cancelled Hypochromasia Cancelled Poikilocytosis Cancelled Basophilic Stippling Cancelled Anisocytosis Cancelled Microcytosis Cancelled Macrocytosis Cancelled Spherocytes Cancelled Pappenheimer Bodies Cancelled Sickle Cells Cancelled Target Cells Cancelled Tear Drop Cells Cancelled Ovalocytes Cancelled Stomatocytes Cancelled [place] Bodies Cancelled Echinocytes Cancelled Acanthocytes (Spur) Cancelled Rouleaux Cancelled RBC Agglutinates Cancelled Schistocytes Cancelled RBC Morph Comment Cancelled Sezary Cell Cancelled Sodium 129 L Potassium 3.3 L Chloride 102 Carbon Dioxide 19 L Anion Gap 9.0 BUN 27 H Creatinine 2.24 H Est Cr Clr Drug Dosing 37.0 Est GFR ( Amer) 45.2 Est GFR (Non-Af Amer) 39.0 BUN/Creatinine Ratio 12.0 Glucose 227 H POC Glucose 231 H Calcium 8.0 L Phosphorus 1.9 L Magnesium 1.4 L Total Bilirubin 0.8 AST 6 L ALT 10 L Alkaline Phosphatase 157 H Total Protein 5.1 L Albumin 1.7 L Globulin 3.4 Albumin/Globulin Ratio 0.5 L Blood Type Rho(D) Type Antibody Screen Crossmatch 11/28/18 11/28/18 08:05 11:05 WBC RBC Hgb Hct MCV MCH MCHC RDW Std Deviation RDW Coeff of Zuleima Plt Count Immature Gran % (Auto) Neut % (Auto) Lymph % (Auto) [place] % (Auto) Eos % (Auto) Baso % (Auto) Immature Gran # (Auto) Neut # (Auto) Lymph # (Auto) [place] # (Auto) Eos # (Auto) Baso # (Auto) Neutrophils % (Manual) Band Neutrophils % Lymphocytes % (Manual) Prolymphocyte % Reactive Lymphs % (Man) Monocytes % (Manual) Eosinophils % (Manual) Basophils % (Manual) Metamyelocytes % (Man) Myelocytes % (Man) Promyelocytes % (Man) Blast Cells % (Manual) Plasma Cell % (Manual) Other Cells % Nucleated RBC % Neutrophils # (Manual) Band Neutrophils # Total Absolute Neuts Lymphocytes # (Manual) Prolymphocyte # Reactive Lymphs # Total Abs Lymphocytes Monocytes # (Manual) Eosinophils # (Manual) Basophils # (Manual) Metamyelocytes # (Man) Myelocytes # (Manual) Promyelocytes # (Man) Blast Cells # (Man) Plasma Cell # (Manual) Other Cells # Nucleated RBCs # (Man) Hypersegmented Neuts Hyposegmented Neuts Hypogranular Neuts Large Granular Lymphs # Lrg Granular Lymphs Hairy Cells Smudge Cells Toxic Granulation Toxic Vacuolation Dohle Bodies Didier Rods Platelet Estimate Hypogranular Platelets Clumped Platelets Giant Platelets Platelet Satelliting RBC Morphology Polychromasia Hypochromasia Poikilocytosis Basophilic Stippling Anisocytosis Microcytosis Macrocytosis Spherocytes Pappenheimer Bodies Sickle Cells Target Cells Tear Drop Cells Ovalocytes Stomatocytes [place] Bodies Echinocytes Acanthocytes (Spur) Rouleaux RBC Agglutinates Schistocytes RBC Morph Comment Sezary Cell Sodium Potassium Chloride Carbon Dioxide Anion Gap BUN Creatinine Est Cr Clr Drug Dosing Est GFR ( Amer) Est GFR (Non-Af Amer) BUN/Creatinine Ratio Glucose POC Glucose 297 H Calcium Phosphorus Magnesium Total Bilirubin AST ALT Alkaline Phosphatase Total Protein Albumin Globulin Albumin/Globulin Ratio Blood Type O Negative Rho(D) Type Antibody Screen NEGATIVE Crossmatch See Detail (1) Acute kidney failure Acute renal failure type: unspecified Qualified Code(s): N17.9 - Acute kidney failure, unspecified (2) Testicular cancer Descendance of testis: descended Laterality: left Qualified Code(s): C62.12 - Malignant neoplasm of descended left testis
--- NOTE | 2018-11-28 14:59 | Pharmacy Report ---
Pharmacy Glycemic Short Note 2 - Date of Service November 28, 2018 - Glycemic Short BSG Results (Last 24 hours): 11/27/18 11/27/18 11/27/18 15:31 16:22 19:37 Glucose 179 H POC Glucose 200 H 184 H 11/27/18 11/28/18 11/28/18 23:53 03:49 05:55 Glucose 227 H POC Glucose 211 H 211 H 11/28/18 11/28/18 07:04 11:05 Glucose POC Glucose 231 H 297 H OUTPATIENT ANTIDIABETIC REGIMEN: * Tresiba 21 units qPM * Lispro SS (1 unit per 10 grams CHO) ASSESSMENT: 11/28 * Patient received 5 units of insulin yesterday (he did refuse his dinner novolog and lantus)and subsequent fasting and post prandial levels were elevated this morning * I gave 5 units of lantus this morning and discussed with primary team to decrease dextrose rate to 50ml/hr around lunchtime. I do not want to be overly aggressive with lantus dosing given recent hypoglycemic episodes. I anticipate the reduction in dextrose infusion will help normalize BSGs. If BSGs remain significantly elevated this evening, may tighten correction factor on nolovolg. 11/27 * Patient received 17 units of insulin yesterday- 10 of lantus/7 correctional * Patient continues to have limited po intake- dextrose @75 ml/hr; 1/2NS + bicarb @ 75 * Patients hypoglycemic yesterday after reduction in dextrose- reduce lantus today * Carb ratio currently not ordered, loosened goal range 11/26 * BSGs elevated yesterday- fluids were increased to 125 ml/hr * Patient received 13 units of insulin yesterday * 10 units of lantus this AM, Tighten CF/CR * Patient continues to have limited po intake, expect cutting dextrose altogether would result in hypoglycemia * Removed dextrose from the 1/2NS/Bicarb- dextrose to run @50 ml/hr and 1/2NS + Bicarb at 75 ml/hr for total 125 ml/hr * If BSGs continue to be elevated may be able to discontinue dextrose 11/25 * Fluids reduced from D10 to D5+1/2NS+bicarb overnight, hypoglycemic overnight (49), up to 228 at lunch * Gave 5 units of lantus at lunchtime (half of yesterdays dose) * ?remove dextrose from current fluid and run separately at lower rate? Would need some form of glucose to prevent ketosis * Will continue overnight glucose checks 11/24 * Patient's BSGs low overnight continue to be on lower end today, has required 0 units of correctional/prandial * Has dextrose infusion running, low dose of lantus this afternoon * Continue to monitor 11/23 * 28 yr old T1DM male well known to the glycemic service admitted for febrile neutropenia. He complains of nausea, vomiting, and dizziness that started two days ago. He has had poor oral intake due to symptoms. * Per discussion with provider, patient missed his dose of Tresiba last evening (his last dose was Saturday evening). Typically for patients who are basal deficient I would partially make up for missed dose, however I am hesitant in this case due to poor oral intake, N/V, and ADRI. I have ordered a one time dose of 20 units of Lantus. Additional can be given this evening if severe hyperglycemia is noted. * During previous admissions, Brett required 15-30 units of basal per day while on dexamethasone. He has required much smaller doses (5-10 units of basal daily) when not on steroids- we have limited BSG data with patient not on steroids. PLAN FOR INPATIENT GLYCEMIC CONTROL: * Basal insulin * Lantus 5 units SQ this morning * Bolus insulin * NovoLog per scale ACHS or Q6hrs while NPO * Goal Range: Low 140 mg/dL - High 180 mg/dL * Correction Factor: 40 mg/dL/unit * Continue overnight checks
--- NOTE | 2018-11-28 18:22 | Family Medicine Progress Note ---
Date of Service November 28, 2018 Assessment & Plan (1) Pancytopenia due to antineoplastic chemotherapy: 28 y/o M with PMH Stage IV testicular cancer with mets to abd presents with fever, N/V, dizziness after finishing up chemo therapy last week found to have neutropenic fever. 1) Neutropenic Fever -s/p chemotherapy last week -Blood cx x2 shows pseudomonas, pansensitive. Urine cx no growth. Probable pseudomonal causes from either port or GI. Mediport removed 11/25 (Dr. Major). -Per ID recs: Cont IV Cefepime alone for 10 days. Day 11/09. Repeat blood cx ordered 11/28. -Cont valtrex for HSV prophylaxis -afebrile since admission. Neutropenic precautions 2) Pancytopenia -2/ to antineoplastic chemotherapy -Has severe pancytopenia: WBC .31, Hgb 7.3, Plt 12. Cont trend -s/p 2 units PRBCs 11/23, 11/25, 1 unit 11/28 -platelet infusion 11/24 1 unit, 2 units 11/25, 2 units 11/26, 2 units 11/28 -Heme/onc: Cont Neupogen 480 subQ. Transfuse as necessary, specifically for hemoglobin below 7.5 and platelet count below 15,000 3) Acute kidney failure -Cr baseline is about 1.2. Today 2.24, downtrending -Likely pre-renal from severe dehydration -right-sided solitary kidney only -Nephro: Cont / NS + 75 mEq NaHCO3. Magnesium and phosphorus daily. 4) R Foot fracture -Suffered during prior hospital stay. Family bringing boot from home. Non- weightbearing status to right foot/leg. 5) Tobacco abuse -cont nicoderm patch - 21mg/day -will director counseling bureau to quit on d/c 6) Chronic pain syndrome -Cont home regimen of meds 7) Nausea/Decreased Appetite -Cont IV Zofran to 8 mg. Per Heme/Onc recs, will consider with 4 mg piggyback dose of dexamethasone if still present, which was done last time. -Marinol to help with nausea, also appetite stimulant. Increased to 5 mg BID 11/27. If no improvement, maybe consider another appetite stimulant such as Megace 8) T1DM -glycemic management consult from pharmacy appreciated 10) Electrolyte Abnormality -K 3.3 , Mg 1.4 -Cont trend above with BMP and Mg q12, daily phosphorus. Replete as needed with MgSO4, KCl riders, K Phos -hypoalbuminemia- dietary consult placed to assist with increased protein intake 11) Tachycardia -pt in 110s-120s today, improved. Responded to 500cc NS bolus' yesterday. Additionally repeated bolus today and will cont to repeat as needed. Will consider increasing rate of IVF tomorrow. Cont monitor pressures/HR -EKG 11/26- sinus tachycardia FULL DVT prophylaxis: SCDs Dispo: Cont PCU tele\ Supervising Physician Co-Signing Physician Notes ATTENDING NOTE I saw the patient confirmed [place] portion of the history and physical exam. I agree with the impression and plan as noted in the resident documentation. While he had been feeling rather consistent improvement subjectively in his level of energy and lessening of his nausea, today he has seemingly leveled off in terms of improvement; remains quite fatigued with decreased appetite. IMPRESSION Metastatic testicular cancer Neutropenic fever Pseudomonal bacteremia status post removal of indwelling [id number] Dehydration with ATN Hyponatremia Hypophosphatemia Hypokalemia Pancytopenia Metabolic acidosis Hypoalbuminemia Status post nephrectomy Insulin-dependent type 1 diabetic PLAN Appreciate consultants' input Replete electrolyte deficiencies and monitor Cefepime IV for 10 days total; repeat blood culture at completion Transfuse platelets and packed red blood cells today Glycemic consult Subjective 28 y/o M found in bed this AM in NAD. States that since yesterday, feeling continued improvement subjectively. Not much other change from yesterday. Has no diarrhea. N/V improved since yesterday after medications changes made. Appetite still not very good as previos, tolerating PO intake and minimal solid intake. Still some ongoing weakness. Some difficulty with ambulation 2/2 R leg boot from fx, notes associated numbness/tingling but nothing new for him. No other issues voiding. Pt has no other acute concerns or complaints. Physical Exam Vital Signs (Past 24 Hours): Last Vital Signs Temp 37.0 C 11/28/18 15:08 Pulse 117 H 11/28/18 15:08 Resp 18 11/28/18 15:08 BP 115/70 11/28/18 15:08 Pulse Ox 97 11/28/18 15:08 Constitutional: + ill appearing and + cachectic Eyes: PERRL, conjunctivae normal, anicteric sclerae Respiratory: normal respiratory effort, lungs clear to auscultation Cardiovascular: RRR, no murmur, no edema Chest (Breasts): Additional Comments: bandaging L upper chest, non draining Gastrointestinal (Abdomen): normal bowel sounds, soft, nontender, no hepatosplenomegaly Skin: no rashes, warm and dry Psychiatric: Affect: + depressed affect Results & Data Laboratory Results Laboratory Results - last 24 hr 11/26/18 11/27/18 11/27/18 08:36 19:37 23:53 WBC RBC Hgb Hct MCV MCH MCHC RDW Std Deviation RDW Coeff of Zuleima Plt Count Immature Gran % (Auto) Neut % (Auto) Lymph % (Auto) [place] % (Auto) Eos % (Auto) Baso % (Auto) Immature Gran # (Auto) Neut # (Auto) Lymph # (Auto) [place] # (Auto) Eos # (Auto) Baso # (Auto) Neutrophils % (Manual) Band Neutrophils % Lymphocytes % (Manual) Prolymphocyte % Reactive Lymphs % (Man) Monocytes % (Manual) Eosinophils % (Manual) Basophils % (Manual) Metamyelocytes % (Man) Myelocytes % (Man) Promyelocytes % (Man) Blast Cells % (Manual) Plasma Cell % (Manual) Other Cells % Nucleated RBC % Neutrophils # (Manual) Band Neutrophils # Total Absolute Neuts Lymphocytes # (Manual) Prolymphocyte # Reactive Lymphs # Total Abs Lymphocytes Monocytes # (Manual) Eosinophils # (Manual) Basophils # (Manual) Metamyelocytes # (Man) Myelocytes # (Manual) Promyelocytes # (Man) Blast Cells # (Man) Plasma Cell # (Manual) Other Cells # Nucleated RBCs # (Man) Hypersegmented Neuts Hyposegmented Neuts Hypogranular Neuts Large Granular Lymphs # Lrg Granular Lymphs Hairy Cells Smudge Cells Toxic Granulation Toxic Vacuolation Dohle Bodies Didier Rods Platelet Estimate Hypogranular Platelets Clumped Platelets Giant Platelets Platelet Satelliting RBC Morphology Polychromasia Hypochromasia Poikilocytosis Basophilic Stippling Anisocytosis Microcytosis Macrocytosis Spherocytes Pappenheimer Bodies Sickle Cells Target Cells Tear Drop Cells Ovalocytes Stomatocytes [place] Bodies Echinocytes Acanthocytes (Spur) Rouleaux RBC Agglutinates Schistocytes RBC Morph Comment Sezary Cell Sodium Potassium Chloride Carbon Dioxide Anion Gap BUN Creatinine Est Cr Clr Drug Dosing Est GFR ( Amer) Est GFR (Non-Af Amer) BUN/Creatinine Ratio Glucose POC Glucose 184 H 211 H Calcium Phosphorus Magnesium Total Bilirubin AST ALT Alkaline Phosphatase Total Protein Albumin Globulin Albumin/Globulin Ratio Blood Type Cancelled Rho(D) Type Cancelled Antibody Screen Cancelled Crossmatch See Detail 11/28/18 11/28/18 11/28/18 03:49 05:55 05:55 WBC 0.31 L* RBC 2.47 L Hgb 7.3 L Hct 20.5 L* MCV 83.0 MCH 29.6 MCHC 35.6 RDW Std Deviation 50.2 H RDW Coeff of Zuleima 16.7 H Plt Count 12 L* Immature Gran % (Auto) Cancelled Neut % (Auto) Cancelled Lymph % (Auto) Cancelled [place] % (Auto) Cancelled Eos % (Auto) Cancelled Baso % (Auto) Cancelled Immature Gran # (Auto) Cancelled Neut # (Auto) Cancelled Lymph # (Auto) Cancelled [place] # (Auto) Cancelled Eos # (Auto) Cancelled Baso # (Auto) Cancelled Neutrophils % (Manual) Cancelled Band Neutrophils % Cancelled Lymphocytes % (Manual) Cancelled Prolymphocyte % Cancelled Reactive Lymphs % (Man) Cancelled Monocytes % (Manual) Cancelled Eosinophils % (Manual) Cancelled Basophils % (Manual) Cancelled Metamyelocytes % (Man) Cancelled Myelocytes % (Man) Cancelled Promyelocytes % (Man) Cancelled Blast Cells % (Manual) Cancelled Plasma Cell % (Manual) Cancelled Other Cells % Cancelled Nucleated RBC % Cancelled Neutrophils # (Manual) Cancelled Band Neutrophils # Cancelled Total Absolute Neuts Cancelled Lymphocytes # (Manual) Cancelled Prolymphocyte # Cancelled Reactive Lymphs # Cancelled Total Abs Lymphocytes Cancelled Monocytes # (Manual) Cancelled Eosinophils # (Manual) Cancelled Basophils # (Manual) Cancelled Metamyelocytes # (Man) Cancelled Myelocytes # (Manual) Cancelled Promyelocytes # (Man) Cancelled Blast Cells # (Man) Cancelled Plasma Cell # (Manual) Cancelled Other Cells # Cancelled Nucleated RBCs # (Man) Cancelled Hypersegmented Neuts Cancelled Hyposegmented Neuts Cancelled Hypogranular Neuts Cancelled Large Granular Lymphs Cancelled # Lrg Granular Lymphs Cancelled Hairy Cells Cancelled Smudge Cells Cancelled Toxic Granulation Cancelled Toxic Vacuolation Cancelled Dohle Bodies Cancelled Didier Rods Cancelled Platelet Estimate SIGNIFIC DECREASED Hypogranular Platelets Cancelled Clumped Platelets Cancelled Giant Platelets Cancelled Platelet Satelliting Cancelled RBC Morphology Cancelled Polychromasia Cancelled Hypochromasia Cancelled Poikilocytosis Cancelled Basophilic Stippling Cancelled Anisocytosis Cancelled Microcytosis Cancelled Macrocytosis Cancelled Spherocytes Cancelled Pappenheimer Bodies Cancelled Sickle Cells Cancelled Target Cells Cancelled Tear Drop Cells Cancelled Ovalocytes Cancelled Stomatocytes Cancelled [place] Bodies Cancelled Echinocytes Cancelled Acanthocytes (Spur) Cancelled Rouleaux Cancelled RBC Agglutinates Cancelled Schistocytes Cancelled RBC Morph Comment Cancelled Sezary Cell Cancelled Sodium 129 L Potassium 3.3 L Chloride 102 Carbon Dioxide 19 L Anion Gap 9.0 BUN 27 H Creatinine 2.24 H Est Cr Clr Drug Dosing 37.0 Est GFR ( Amer) 45.2 Est GFR (Non-Af Amer) 39.0 BUN/Creatinine Ratio 12.0 Glucose 227 H POC Glucose 211 H Calcium 8.0 L Phosphorus 1.9 L Magnesium 1.4 L Total Bilirubin 0.8 AST 6 L ALT 10 L Alkaline Phosphatase 157 H Total Protein 5.1 L Albumin 1.7 L Globulin 3.4 Albumin/Globulin Ratio 0.5 L Blood Type Rho(D) Type Antibody Screen Crossmatch 11/28/18 11/28/18 11/28/18 07:04 08:05 11:05 WBC RBC Hgb Hct MCV MCH MCHC RDW Std Deviation RDW Coeff of Zuleima Plt Count Immature Gran % (Auto) Neut % (Auto) Lymph % (Auto) [place] % (Auto) Eos % (Auto) Baso % (Auto) Immature Gran # (Auto) Neut # (Auto) Lymph # (Auto) [place] # (Auto) Eos # (Auto) Baso # (Auto) Neutrophils % (Manual) Band Neutrophils % Lymphocytes % (Manual) Prolymphocyte % Reactive Lymphs % (Man) Monocytes % (Manual) Eosinophils % (Manual) Basophils % (Manual) Metamyelocytes % (Man) Myelocytes % (Man) Promyelocytes % (Man) Blast Cells % (Manual) Plasma Cell % (Manual) Other Cells % Nucleated RBC % Neutrophils # (Manual) Band Neutrophils # Total Absolute Neuts Lymphocytes # (Manual) Prolymphocyte # Reactive Lymphs # Total Abs Lymphocytes Monocytes # (Manual) Eosinophils # (Manual) Basophils # (Manual) Metamyelocytes # (Man) Myelocytes # (Manual) Promyelocytes # (Man) Blast Cells # (Man) Plasma Cell # (Manual) Other Cells # Nucleated RBCs # (Man) Hypersegmented Neuts Hyposegmented Neuts Hypogranular Neuts Large Granular Lymphs # Lrg Granular Lymphs Hairy Cells Smudge Cells Toxic Granulation Toxic Vacuolation Dohle Bodies Didier Rods Platelet Estimate Hypogranular Platelets Clumped Platelets Giant Platelets Platelet Satelliting RBC Morphology Polychromasia Hypochromasia Poikilocytosis Basophilic Stippling Anisocytosis Microcytosis Macrocytosis Spherocytes Pappenheimer Bodies Sickle Cells Target Cells Tear Drop Cells Ovalocytes Stomatocytes [place] Bodies Echinocytes Acanthocytes (Spur) Rouleaux RBC Agglutinates Schistocytes RBC Morph Comment [place]zary Cell Sodium Potassium Chloride Carbon Dioxide Anion Gap BUN Creatinine Est Cr Clr Drug Dosing Est GFR ( Amer) Est GFR (Non-Af Amer) BUN/Creatinine Ratio Glucose POC Glucose 231 H 297 H Calcium Phosphorus Magnesium Total Bilirubin AST ALT Alkaline Phosphatase Total Protein Albumin Globulin Albumin/Globulin Ratio Blood Type O Negative Rho(D) Type Antibody Screen NEGATIVE Crossmatch See Detail 11/28/18 16:26 WBC RBC Hgb Hct MCV MCH MCHC RDW Std Deviation RDW Coeff of Zuleima Plt Count Immature Gran % (Auto) Neut % (Auto) Lymph % (Auto) [place] % (Auto) Eos % (Auto) Baso % (Auto) Immature Gran # (Auto) Neut # (Auto) Lymph # (Auto) [place] # (Auto) Eos # (Auto) Baso # (Auto) Neutrophils % (Manual) Band Neutrophils % Lymphocytes % (Manual) Prolymphocyte % Reactive Lymphs % (Man) Monocytes % (Manual) Eosinophils % (Manual) Basophils % (Manual) Metamyelocytes % (Man) Myelocytes % (Man) Promyelocytes % (Man) Blast Cells % (Manual) Plasma Cell % (Manual) Other Cells % Nucleated RBC % Neutrophils # (Manual) Band Neutrophils # Total Absolute Neuts Lymphocytes # (Manual) Prolymphocyte # Reactive Lymphs # Total Abs Lymphocytes Monocytes # (Manual) Eosinophils # (Manual) Basophils # (Manual) Metamyelocytes # (Man) Myelocytes # (Manual) Promyelocytes # (Man) Blast Cells # (Man) Plasma Cell # (Manual) Other Cells # Nucleated RBCs # (Man) Hypersegmented Neuts Hyposegmented Neuts Hypogranular Neuts Large Granular Lymphs # Lrg Granular Lymphs Hairy Cells Smudge Cells Toxic Granulation Toxic Vacuolation Dohle Bodies Didier Rods Platelet Estimate Hypogranular Platelets Clumped Platelets Giant Platelets Platelet Satelliting RBC Morphology Polychromasia Hypochromasia Poikilocytosis Basophilic Stippling Anisocytosis Microcytosis Macrocytosis Spherocytes Pappenheimer Bodies Sickle Cells Target Cells Tear Drop Cells Ovalocytes Stomatocytes [place] Bodies Echinocytes Acanthocytes (Spur) Rouleaux RBC Agglutinates Schistocytes RBC Morph Comment [place] Cell Sodium Potassium Chloride Carbon Dioxide Anion Gap BUN Creatinine Est Cr Clr Drug Dosing Est GFR ( Amer) Est GFR (Non-Af Amer) BUN/Creatinine Ratio Glucose POC Glucose 109 H Calcium Phosphorus Magnesium Total Bilirubin AST ALT Alkaline Phosphatase Total Protein Albumin Globulin Albumin/Globulin Ratio Blood Type Rho(D) Type Antibody Screen Crossmatch Medications Administered Current Inpatient Medications Acetaminophen (Tylenol) 650 mg PO Q4H PRN PRN Reason: Pain or Fever Stop: 12/23/18 14:08 Last Admin: 11/28/18 10:05 Dose: 650 mg Documented by: Alprazolam (Xanax) 0.5 mg PO BID [facility] Stop: 12/23/18 20:59 Last Admin: 11/28/18 09:00 Dose: 0.5 mg Documented by: Clotrimazole (Mycelex) 10 mg BUCCAL [id number] [facility] Stop: 12/03/18 14:59 Last Admin: 11/28/18 14:32 Dose: 10 mg Documented by: Dextrose (Dextrose 50%) 25 - 50 ml IV UD PRN; Protocol PRN Reason: Hypoglycemia Protocol Stop: 12/23/18 14:29 Last Admin: 11/26/18 19:32 Dose: 50 ml Documented by: Dronabinol (Marinol) 5 mg PO BID PRN PRN Reason: Nausea And Vomiting Stop: 12/24/18 17:35 Last Admin: 11/28/18 17:07 Dose: 5 mg Documented by: Filgrastim (Neupogen) 480 mcg SC DAILY [facility] Stop: 12/27/18 08:59 Last Admin: 11/28/18 08:59 Dose: 480 mcg Documented by: Glucagon (Glucagen) 1 mg SQ UD PRN; Protocol PRN Reason: Hypoglycemia Protocol Stop: 12/23/18 14:29 Glucose (Glucose 40%) 15 - 30 gm PO UD PRN; Protocol PRN Reason: Hypoglycemia Protocol Stop: 12/23/18 14:29 Glucose (Dex4 Glucose) 4 - 8 tabs PO UD PRN; Protocol PRN Reason: Hypoglycemia Protocol Stop: 12/23/18 14:29 Heparin Sodium (Porcine) (Heparin Sod 100 Unit/Ml Flush) 5 ml FLUSH PRN PRN PRN Reason: Flush Stop: 12/24/18 00:59 Hydrocortisone (Proctozone Hc 2.5%) 1 appln EXT Q24H [facility] Stop: 12/27/18 20:44 Last Admin: 11/27/18 21:51 Dose: 1 appln Documented by: Sodium Chloride (Nss) 250 mls @ 15 mls/hr IV .[id number] PRN PRN Reason: For Transfusion Stop: 12/26/18 08:35 Sodium Bicarbonate 75 meq/ (Sodium Chloride) 1,075 mls @ 75 mls/hr IV .[id number] [facility]DA Stop: 12/26/18 10:29 Last Infusion: 11/28/18 06:40 Dose: 75 mls/hr Documented by: Dextrose (D5w) 1,000 mls @ 50 mls/hr IV .[id number] [facility] Stop: 12/26/18 10:29 Last Infusion: 11/28/18 06:40 Dose: 75 mls/hr Documented by: Sodium Chloride (Nss) 250 mls @ 15 mls/hr IV .[id number] PRN PRN Reason: For Transfusion Stop: 12/28/18 07:20 Insulin Aspart (Novolog Flexpen) 0 units SC ACHS [facility] Stop: 12/23/18 16:29 Last Admin: 11/28/18 17:25 Dose: Not Given Documented by: Insulin Aspart (Novolog Flexpen) 0 units SC TODAY@0000,0400 [facility] Stop: 12/26/18 00:00 Last Admin: 11/28/18 03:55 Dose: Not Given Documented by: Miscellaneous (Remove Nicoderm Patch) 1 ea N/A HS [facility] Stop: 12/23/18 20:59 Last Admin: 11/27/18 20:16 Dose: Not Given Documented by: Miscellaneous (Carbohydrates For Hypoglycemia) 15 - 30 gm PO UD PRN PRN Reason: Hypoglycemia Treatment Stop: 12/23/18 14:29 Miscellaneous Information (Consult Glycemic Management Pharmacy) 1 ea N/A UD PRN PRN Reason: Consult Stop: 12/23/18 12:21 Morphine Sulfate (Ms Contin) 30 mg PO Q8 [facility] Stop: 12/07/18 14:29 Last Admin: 11/28/18 13:26 Dose: 30 mg Documented by: Multivitamins (Multivitamin Tab) 1 tab PO DAILY [facility] Stop: 12/24/18 08:59 Last Admin: 11/28/18 08:59 Dose: 1 tab Documented by: Nicotine (Nicoderm Cq) 21 mg TD QAM [facility] Stop: 12/23/18 14:08 Last Admin: 11/28/18 09:00 Dose: 21 mg Documented by: Ondansetron HCl (Zofran) 8 mg IV Q6H PRN PRN Reason: Nausea Stop: 12/23/18 14:08 Oxycodone HCl (Roxicodone Immediate Rel) 10 mg PO Q4H PRN PRN Reason: Pain Stop: 12/07/18 14:08 Last Admin: 11/27/18 19:08 Dose: 10 mg Documented by: Potassium Chloride (Klor-Con M20) 40 meq PO QAM [facility] Stop: 12/29/18 08:59 Prochlorperazine (Compazine) 10 mg PO Q6H PRN PRN Reason: nausea and vomiting Stop: 12/23/18 14:08 Sucralfate (Carafate) 1 gm PO QID [facility] Stop: 12/25/18 08:59 Last Admin: 11/28/18 16:49 Dose: 1 gm Documented by: Valacyclovir HCl (Valtrex) 1,000 mg PO DAILY [facility] Stop: 12/24/18 08:59 Last Admin: 11/28/18 09:00 Dose: 1,000 mg Documented by: Resident Activity Tracking Resident Involvement: Resident Care Provided Care Provided: Adult Hospital Medicine
[2018-11-28] MEDS: HYDROCORTISONE HC 2.5% CRM 30GM TUBE EXT SCH (19:56)
[2018-11-29] MEDS: INSULIN ASPART 100 UNITS/ML 3 ML PEN SC SCH ×6 (00:52→22:29)
[2018-11-29] MEDS: CLOTRIMAZOLE 10 MG TROCHE BUCCAL SCH ×5 (06:09→22:30)
[2018-11-29] MEDS: MoRPHine SULFATE CR 15 MG TABCR PO SCH ×3 (06:09→22:29)
[2018-11-29 06:58] LABS: Albumin Level 1.7 gm/dl (3.4-5.0); BUN Creatinine Ratio 11.5 (10-20); Calcium 7.7 mg/dl (8.5-10.1); Creatinine Clr Calc Pharmacy 34.6 ml/min; Est GFR (African American) 41.8; Est GFR (Non-African American) 36.1; Magnesium 1.7 mg/dl (1.8-2.4); Potassium 3.1 mmol/L (3.5-5.1)
[2018-11-29 07:01] LABS: Albumin Globulin Ratio 0.5 (0.9-2); Bilirubin,Total 0.8 mg/dl (0.2-1); Globulin 3.5 gm/dl (2.5-4.0); Phosphorus 1.6 mg/dl (2.5-4.9); Total Protein 5.2 gm/dl (6.4-8.2)
[2018-11-29 07:02] LABS: Hematocrit (blood only) 22.1 % (42-52); Mean Corpuscular Hemoglobin 30.2 pg (25-34); Mean Corpuscular Hgb Conc 36.2 g/dL (32-36); Mean Corpuscular Volume 83.4 fL (80-100); Mean Platelet Volume 9.7 fL (7.4-10.4); Platelet Count 25 K/uL (130-400); RDW Coefficient of Variation 16.5 % (11.5-14.5); RDW Standard Deviation 49.9 fL (36.4-46.3); Red Blood Count 2.65 M/uL (4.7-6.1); White Blood Count 1.58 K/uL (4.8-10.8)
[2018-11-29 07:06] LABS: ALC (manual) 0.18 K/uL (1.2-3.4); Dohle Bodies 3+; Lymphocytes # (manual) 0.18 K/uL (1.2-3.4); Lymphocytes % (manual) 11.5 %; Monocytes # (manual) 0.36 K/uL (0.11-0.59); Neutrophils # (manual) 1.03 K/uL (1.4-6.5); Neutrophils % (manual) 65.5 %; Toxic Granulation 3+; Toxic Vacuolation 3+
--- NOTE | 2018-11-29 07:22 | Family Medicine Progress Note ---
Date of Service November 29, 2018 Assessment & Plan (1) Pancytopenia due to antineoplastic chemotherapy: 28 y/o M with PMH Stage IV testicular cancer with mets to abd presents with fever, N/V, dizziness after finishing up chemo therapy last week found to have neutropenic fever. 1) Neutropenic Fever -s/p chemotherapy last week -Blood cx x2 shows pseudomonas, pansensitive. Urine cx no growth. Probable pseudomonal causes from either port or GI. Mediport removed 11/25 (Dr. Major). -Per ID recs: Cont IV Cefepime alone for 10 days. Day 12/10. Repeat blood cx ordered 11/28.NGTD -Cont valtrex for HSV prophylaxis -afebrile since admission. Neutropenic precautions 2) Pancytopenia -2/2 to antineoplastic chemotherapy -improving today: WBC 1.58, Hgb 8.0, Plt 25. Cont trend -s/p 2 units PRBCs 11/23, 11/25, 1 unit 11/28 -platelet infusion 11/24 1 unit, 2 units 11/25, 2 units 11/26, 2 units 11/28 -Heme/onc: Cont Neupogen 480 subQ. Transfuse as necessary, specifically for hemoglobin below 7.5 and platelet count below 15,000 3) Acute kidney failure -Cr baseline is about 1.2. Today 2.39, this may be his new normal. Will continue to trend -Likely pre-renal from severe dehydration -right-sided solitary kidney only -Nephro: Cont 1/ NS + 75 mEq NaHCO3. Magnesium and phosphorus daily. 4) R Foot fracture -Suffered during prior hospital stay. Family bringing boot from home. Non- weightbearing status to right foot/leg. 5) Tobacco abuse -cont nicoderm patch - 21mg/day -will residential substance abuse counselor to quit on d/c 6) Chronic pain syndrome -Cont home regimen of meds 7) Nausea/Decreased Appetite -Cont IV Zofran to 8 mg. Per Heme/Onc recs, will consider with 4 mg piggyback dose of dexamethasone if still present, which was done last time. -Marinol to help with nausea, also appetite stimulant. Increased to 5 mg BID 11/27. If no improvement, maybe consider another appetite stimulant such as Megace 8) T1DM -glycemic management consult from pharmacy appreciated 10) Electrolyte Abnormality -K 3.3 , Mg 1.4 -Cont trend above with BMP and Mg q12, daily phosphorus. Replete as needed with MgSO4, KCl riders, K Phos -hypoalbuminemia- dietary consult placed to assist with increased protein intake -Nephro managing 11) Tachycardia -pt in 110s-120s today, improved. Responded to 500cc NS bolus' yesterday. Add itionally repeated bolus today and will cont to repeat as needed. Will consider increasing rate of IVF tomorrow. Cont monitor pressures/HR -EKG 11/26- sinus tachycardia -tachycardia likel 10/04 to cancer 12)Lethargy -Resumed Home Adderall dose of 15 mg BID FULL DVT prophylaxis: SCDs Dispo: Cont PCU tele\ Supervising Physician Co-Signing Physician Notes ATTENDING NOTE I saw the patient with Dr. Vasques and confirmed shelton portions of the history and physical exam. I agree with the impression and plan as noted in the resident documentation. Remains quite sleepy; his appetite is still decreased although it may be in part due to his sleepiness and what is being offered for him to eat. Nursing has been able to provide him with some more options in terms of diet today and this may be helpful in improving his nutrition. He was also able to visit with his father today who is also hospitalized. The patient notes that he is on Adderall at home -sounds as if it is more for a palliative purpose; this was not started upon his admission and may be partially responsible for his somnolence. EXAM Sleeping but awakens to voice. Alert and oriented. Denies any pain. No acute distress. Cardiovascular regular, slightly tachycardic. Respirations nonlabored Abdomen soft nontender No pedal edema. No calf tenderness. IMPRESSION Metastatic testicular cancer Neutropenic fever/Pseudomonal bacteremia status post removal of indwelling Egminm-e-Xudy Dehydration with ATN Hyponatremia /Hypophosphatemia/Hypokalemia Pancytopenia Hypoalbuminemia Status post nephrectomy Insulin-dependent type 1 diabetic PLAN Restart Adderall 15 mg p.o. twice daily Could consider mirtazapine for additional appetite stimulation Replete electrolyte deficiencies and monitor Cefepime IV for 10 days total; repeat blood culture at completion White blood cell count and platelets have improved; we will see what they do tomorrow to see if this represents exogenous repletion or marrow recovery Subjective pt laying in bed this morning slightly confused with his girlfriend at his side. Pt reports doing well today and feeling better. Pt girlfriend reports he has been mostly sleeping while in the hospital and that pt has significant anxiety regarding doctors appointments etc. She also states pt is having trouble obtaining necessary medications from psychiatrist. Although pt appears to be improving physically I am concerned about his psych health. Diet is somewhat improved but still not eating full meals. Physical Exam Vital Signs (Past 24 Hours): Last Vital Signs Temp 36.6 C 11/29/18 07:00 Pulse 106 H 11/29/18 07:00 Resp 17 11/29/18 07:00 BP 117/71 11/29/18 07:00 Pulse Ox 95 11/29/18 07:00 Constitutional: + ill appearing, + thin, + cachectic and + altered mental status Eyes: normal visual ann by confrontation Neck: trachea midline, no thyromegaly Respiratory: normal respiratory effort, lungs clear to auscultation Cardiovascular: RRR, no murmur, no edema Rate/Rhythm: + tachycardic Gastrointestinal (Abdomen): normal bowel sounds, soft, nontender, no hepatosplenomegaly Skin: no rashes, warm and dry Results & Data Laboratory Results 11/29/18 11/29/18 11/29/18 Range/Units 11:45 07:32 06:05 WBC 1.58 L (4.8-10.8) K/uL RBC 2.65 L (4.7-6.1) M/uL Hgb 8.0 L (14.0-18.0) g/dL Hct 22.1 L (42-52) % MCV 83.4 (80-100) fL MCH 30.2 (25-34) pg MCHC 36.2 H (32-36) g/dL RDW Std Deviation 49.9 H (36.4-46.3) fL RDW Coeff of Zuleima 16.5 H (11.5-14.5) % Plt Count 25 L* D (130-400) K/uL MPV 9.7 (7.4-10.4) fL Neutrophils % (Manual) 65.5 % Lymphocytes % (Manual) 11.5 % Monocytes % (Manual) 23.0 % Neutrophils # (Manual) 1.03 L (1.4-6.5) K/uL Total Absolute Neuts 1.03 L (1.4-6.5) K/uL Lymphocytes # (Manual) 0.18 L (1.2-3.4) K/uL Total Abs Lymphocytes 0.18 L (1.2-3.4) K/uL Monocytes # (Manual) 0.36 (0.11-0.59) K/uL Toxic Granulation 3+ Toxic Vacuolation 3+ Dohle Bodies 3+ Sodium (136-145) mmol/L Potassium (3.5-5.1) mmol/L Chloride (98-107) mmol/L Carbon Dioxide (21-32) mmol/L Anion Gap (3-11) BUN (7-18) mg/dl Creatinine (0.6-1.4) mg/dl Est Cr Clr Drug Dosing ml/min Est GFR ( Amer) Est GFR (Non-Af Amer) BUN/Creatinine Ratio (10-20) Glucose (70-99) mg/dl POC Glucose 103 H 229 H (70-99) Calcium (8.5-10.1) mg/dl Phosphorus (2.5-4.9) mg/dl Magnesium (1.8-2.4) mg/dl Total Bilirubin (0.2-1) mg/dl AST (15-37) U/L ALT (12-78) U/L Alkaline Phosphatase (45-117) U/L Total Protein (6.4-8.2) gm/dl Albumin (3.4-5.0) gm/dl Globulin (2.5-4.0) gm/dl Albumin/Globulin Ratio (0.9-2) Crossmatch 11/29/18 11/29/18 11/29/18 Range/Units 06:05 04:39 00:34 WBC (4.8-10.8) K/uL RBC (4.7-6.1) M/uL Hgb (14.0-18.0) g/dL Hct (42-52) % MCV (80-100) fL MCH (25-34) pg MCHC (32-36) g/dL RDW Std Deviation (36.4-46.3) fL RDW Coeff of Zuleima (11.5-14.5) % Plt Count (130-400) K/uL MPV (7.4-10.4) fL Neutrophils % (Manual) % Lymphocytes % (Manual) % Monocytes % (Manual) % Neutrophils # (Manual) (1.4-6.5) K/uL Total Absolute Neuts (1.4-6.5) K/uL Lymphocytes # (Manual) (1.2-3.4) K/uL Total Abs Lymphocytes (1.2-3.4) K/uL Monocytes # (Manual) (0.11-0.59) K/uL Toxic Granulation Toxic Vacuolation Dohle Bodies Sodium 133 L (136-145) mmol/L Potassium 3.1 L (3.5-5.1) mmol/L Chloride 105 (98-107) mmol/L Carbon Dioxide 20 L (21-32) mmol/L Anion Gap 8.0 (3-11) BUN 28 H (7-18) mg/dl Creatinine 2.39 H (0.6-1.4) mg/dl Est Cr Clr Drug Dosing 34.6 ml/min Est GFR ( Amer) 41.8 Est GFR (Non-Af Amer) 36.1 BUN/Creatinine Ratio 11.5 (10-20) Glucose 192 H (70-99) mg/dl POC Glucose 203 H 171 H (70-99) Calcium 7.7 L (8.5-10.1) mg/dl Phosphorus 1.6 L (2.5-4.9) mg/dl Magnesium 1.7 L (1.8-2.4) mg/dl Total Bilirubin 0.8 (0.2-1) mg/dl AST 10 L (15-37) U/L ALT 11 L (12-78) U/L Alkaline Phosphatase 152 H (45-117) U/L Total Protein 5.2 L (6.4-8.2) gm/dl Albumin 1.7 L (3.4-5.0) gm/dl Globulin 3.5 (2.5-4.0) gm/dl Albumin/Globulin Ratio 0.5 L (0.9-2) Crossmatch 11/28/18 11/28/18 11/26/18 Range/Units 20:45 16:26 08:36 WBC (4.8-10.8) K/uL RBC (4.7-6.1) M/uL Hgb (14.0-18.0) g/dL Hct (42-52) % MCV (80-100) fL MCH (25-34) pg MCHC (32-36) g/dL RDW Std Deviation (36.4-46.3) fL RDW Coeff of Zuleima (11.5-14.5) % Plt Count (130-400) K/uL MPV (7.4-10.4) fL Neutrophils % (Manual) % Lymphocytes % (Manual) % Monocytes % (Manual) % Neutrophils # (Manual) (1.4-6.5) K/uL Total Absolute Neuts (1.4-6.5) K/uL Lymphocytes # (Manual) (1.2-3.4) K/uL Total Abs Lymphocytes (1.2-3.4) K/uL Monocytes # (Manual) (0.11-0.59) K/uL Toxic Granulation Toxic Vacuolation Dohle Bodies Sodium (136-145) mmol/L Potassium (3.5-5.1) mmol/L Chloride (98-107) mmol/L Carbon Dioxide (21-32) mmol/L Anion Gap (3-11) BUN (7-18) mg/dl Creatinine (0.6-1.4) mg/dl Est Cr Clr Drug Dosing ml/min Est GFR ( Amer) Est GFR (Non-Af Amer) BUN/Creatinine Ratio (10-20) Glucose (70-99) mg/dl POC Glucose 137 H 109 H (70-99) Calcium (8.5-10.1) mg/dl Phosphorus (2.5-4.9) mg/dl Magnesium (1.8-2.4) mg/dl Total Bilirubin (0.2-1) mg/dl AST (15-37) U/L ALT (12-78) U/L Alkaline Phosphatase (45-117) U/L Total Protein (6.4-8.2) gm/dl Albumin (3.4-5.0) gm/dl Globulin (2.5-4.0) gm/dl Albumin/Globulin Ratio (0.9-2) Crossmatch See Detail Medications Administered Current Inpatient Medications Acetaminophen (Tylenol) 650 mg PO Q4H PRN PRN Reason: Pain or Fever Stop: 12/23/18 14:08 Last Admin: 11/28/18 10:05 Dose: 650 mg Documented by: Alprazolam (Xanax) 0.5 mg PO BID [facility] Stop: 12/23/18 20:59 Last Admin: 11/29/18 08:12 Dose: 0.5 mg Documented by: Amphetamine/Dextroamphetamine (Adderall) 10 mg PO BID@0700,1400 [facility] Stop: 12/13/18 14:59 Amphetamine/Dextroamphetamine (Adderall) 5 mg PO BID@0700,1400 [facility] Stop: 12/13/18 14:59 Clotrimazole (Mycelex) 10 mg BUCCAL 5XDQ4H [facility] Stop: 12/03/18 14:59 Last Admin: 11/29/18 12:20 Dose: 10 mg Documented by: Dextrose (Dextrose 50%) 25 - 50 ml IV UD PRN; Protocol PRN Reason: Hypoglycemia Protocol Stop: 12/23/18 14:29 Last Admin: 11/26/18 19:32 Dose: 50 ml Documented by: Dronabinol (Marinol) 5 mg PO BID PRN PRN Reason: Nausea And Vomiting Stop: 12/24/18 17:35 Last Admin: 11/28/18 17:07 Dose: 5 mg Documented by: Filgrastim (Neupogen) 480 mcg SC DAILY [facility] Stop: 12/27/18 08:59 Last Admin: 11/29/18 08:19 Dose: 480 mcg Documented by: Glucagon (Glucagen) 1 mg SQ UD PRN; Protocol PRN Reason: Hypoglycemia Protocol Stop: 12/23/18 14:29 Glucose (Glucose 40%) 15 - 30 gm PO UD PRN; Protocol PRN Reason: Hypoglycemia Protocol Stop: 12/23/18 14:29 Glucose (Dex4 Glucose) 4 - 8 tabs PO UD PRN; Protocol PRN Reason: Hypoglycemia Protocol Stop: 12/23/18 14:29 Heparin Sodium (Porcine) (Heparin Sod 100 Unit/Ml Flush) 5 ml FLUSH PRN PRN PRN Reason: Flush Stop: 12/24/18 00:59 Hydrocortisone (Proctozone Hc 2.5%) 1 appln EXT Q24H [facility] Stop: 12/27/18 20:44 Last Admin: 11/28/18 19:56 Dose: 1 appln Documented by: Sodium Chloride (Nss) 250 mls @ 15 mls/hr IV .[id number] PRN PRN Reason: For Transfusion Stop: 12/26/18 08:35 Dextrose (D5w) 1,000 mls @ 50 mls/hr IV .Q20H [facility] Stop: 12/26/18 10:29 Last Admin: 11/29/18 09:54 Dose: 50 mls/hr Documented by: Sodium Chloride (Nss) 250 mls @ 15 mls/hr IV .[id number] PRN PRN Reason: For Transfusion Stop: 12/28/18 07:20 Potassium Chloride (K Harpal / Wtr) 10 meq in 100 mls @ 100 mls/hr IV Q1H [facility] Stop: 11/29/18 15:59 Last Admin: 11/29/18 14:11 Dose: 100 mls/hr Documented by: Potassium Phosphate 40 mmol/ (Sodium Chloride) 1,013.3333 mls @ 145 mls/hr IV 1000 ONE Stop: 11/29/18 16:59 Last Admin: 11/29/18 09:53 Dose: 145 mls/hr Documented by: Insulin Aspart (Novolog Flexpen) 0 units SC ACHS [facility] Stop: 12/23/18 16:29 Last Admin: 11/29/18 11:53 Dose: Not Given Documented by: Insulin Aspart (Novolog Flexpen) 0 units SC TODAY@0000,0400 [facility] Stop: 12/26/18 00:00 Last Admin: 11/29/18 05:01 Dose: 1 units Documented by: Miscellaneous (Remove Nicoderm Patch) 1 ea N/A HS [facility] Stop: 12/23/18 20:59 Last Admin: 11/28/18 21:23 Dose: 1 ea Documented by: Miscellaneous (Carbohydrates For Hypoglycemia) 15 - 30 gm PO UD PRN PRN Reason: Hypoglycemia Treatment Stop: 12/23/18 14:29 Miscellaneous Information (Consult Glycemic Management Pharmacy) 1 ea N/A UD PRN PRN Reason: Consult Stop: 12/23/18 12:21 Morphine Sulfate (Ms Contin) 30 mg PO Q8 [facility] Stop: 12/07/18 14:29 Last Admin: 11/29/18 14:21 Dose: 30 mg Documented by: Multivitamins (Multivitamin Tab) 1 tab PO DAILY [facility] Stop: 12/24/18 08:59 Last Admin: 11/29/18 08:13 Dose: 1 tab Documented by: [facility] ([facility] C[facility]) [facility] [place]: 12/23/18 14:08 Last Admin: 11/29/18 08:13 Dose: 21 mg Documented by: Ondansetron HCl (Zofran) 8 mg IV Q6H PRN PRN Reason: Nausea Stop: 12/23/18 14:08 Oxycodone HCl (Roxicodone Immediate Rel) 10 mg PO Q4H PRN PRN Reason: Pain Stop: 12/07/18 14:08 Last Admin: 11/27/18 19:08 Dose: 10 mg Documented by: Potassium Chloride (Klor-Con M20) 40 meq PO QAM [facility] Stop: 12/29/18 08:59 Last Admin: 11/29/18 08:14 Dose: 40 meq Documented by: Prochlorperazine (Compazine) 10 mg PO Q6H PRN PRN Reason: nausea and vomiting Stop: 12/23/18 14:08 Sucralfate (Carafate) 1 gm PO QID [facility] Stop: 12/25/18 08:59 Last Admin: 11/29/18 12:21 Dose: 1 gm Documented by: Valacyclovir HCl (Valtrex) 1,000 mg PO DAILY [facility] Stop: 12/24/18 08:59 Last Admin: 11/29/18 08:12 Dose: 1,000 mg Documented by: Resident Activity Tracking Resident Involvement: Resident Care Provided Care Provided: Adult Hospital Medicine
[2018-11-29] MEDS: ALPRAZolam 0.5 MG TABLET PO SCH ×2 (08:12→22:29)
[2018-11-29] MEDS: VALACYCLOVIR HCL 500 MG TABLET PO SCH (08:12)
[2018-11-29] MEDS: SUCRALFATE 1 GM/10 ML UDC PO SCH ×4 (08:13→22:28)
[2018-11-29] MEDS: NICOTINE 21 MG/24 HR TDSY TD SCH (08:13)
[2018-11-29] MEDS: MULTIVITAMIN TAB PO SCH (08:13)
[2018-11-29] MEDS: POTASSIUM CHLORIDE 20 MEQ TABCR PO SCH (08:14)
[2018-11-29] MEDS: FILGRASTIM 480 MCG/1.6 ML VIAL SC SCH (08:19)
[2018-11-29] MEDS ORDERED: POTASSIUM PHOS 3 MMOL/1 ML INFUSION IV STA (08:53)
[2018-11-29] MEDS ORDERED: INSULIN GLARGINE SOLOSTAR 100 UNITS/ML 3 ML PEN SC ONE (09:00)
[2018-11-29] MEDS: MAGNESIUM SULFATE / D5W 1 GM/100 ML BAG IV SCH ×2 (09:53→11:04)
[2018-11-29] MEDS: DEXTROSE 5% 1,000 ML IV SCH (09:54)
[2018-11-29] MEDS ORDERED: POTASSIUM PHOSPHATE 40 MMOL in SODIUM CHLORIDE 0.9% 1000ML 1,000 ML IV ONE (10:00)
[2018-11-29] MEDS: SODIUM BICARBONATE 8.4% 75 MEQ in SODIUM CHLORIDE 0.45 % 1,000 ML IV SCH (10:07)
--- NOTE | 2018-11-29 12:03 | Nephrology Progress Note ---
Date of Service November 29, 2018 Assessment & Plan (1) Hyponatremia: (2) Acute kidney failure: 28-year-old male with metastatic testicular cancer p/w nausea, vomiting, anorexia and fever post chemotherapy. He was admitted with neutropenic fever, volume depletion, acute kidney injury, hypokalemia, and metabolic acidosis. PO intake is improving. Blood cultures positive for pseuodmonas. This is being treated with cefepime. Mediport was removed. ADRI is consistent with ATN. Tolerating IVF well. Continues to require aggressive electrolyte replacement. Stop isotonic IV fluid replacement. HCO3 improving; defer additional replacement at this time. Additional 40 mEq KCl this morning ordered as well as additional 40 mmol K phos and 2 grams magnesium sulfate. Monitor metabolic profile with magnesium q 12 hours. Check phosphorus daily. (3) Metabolic acidosis: Improving. Hold IV HCO3. (4) Pancytopenia: (5) Neutropenic fever: Bld cx + pseudomonas. Mediport removed. Remains on cefepime. (6) S/p nephrectomy: (7) Testicular cancer: (8) Hypoalbuminemia: Encourage nutrition. Subjective No acute events overnight. Mr. Leigh was resting comfortably in bed this morning. Appetite is improving. He reports improved oral fluid intake. No vomiting. No abdominal pain. He is breathing comfortably. No fevers or chills. Generalized weakness persists but strength is improving. Review of Systems All systems reviewed & are unremarkable except as noted in HPI & below Physical Exam Vital Signs (Past 24 Hours): Last Vital Signs Temp 37.1 C 11/29/18 11:47 Pulse 113 H 11/29/18 11:47 Resp 16 11/29/18 11:47 BP 120/76 11/29/18 11:47 Pulse Ox 96 11/29/18 11:47 Constitutional: + ill appearing (chronically) and + thin; no acute distress Eyes: no scleral abnormality and no corneal abnormality ENMT: Mouth: + dry oral mucous membranes; no oral mucosal abnormality Neck: normal visual inspection and trachea midline Respiratory: normal respiratory effort Auscultation: lungs clear to auscultation bilaterally; no rales and no rhonchi Cardiovascular: Rate/Rhythm: regular rate and regular rhythm Heart Sounds: normal S1 and normal S2; no murmur Extremities: + edema (BL LE pitting edema increasing) Gastrointestinal (Abdomen): Inspection/Auscultation: abdomen normal to inspection Percussion/Palpation: abdomen soft; abdomen nontender Musculoskeletal: Extremities: no cyanosis and no clubbing Skin: no rashes and no lesions Neurologic: Motor/Sensory: no tremor and no asterixis Psychiatric: Affect: + depressed affect Results & Data Laboratory Results Laboratory Results - last 24 hr 11/26/18 11/28/18 11/28/18 08:36 08:05 16:26 WBC RBC Hgb Hct MCV MCH MCHC RDW Std Deviation RDW Coeff of Zuleima Plt Count MPV Neutrophils % (Manual) Lymphocytes % (Manual) Monocytes % (Manual) Neutrophils # (Manual) Total Absolute Neuts Lymphocytes # (Manual) Total Abs Lymphocytes Monocytes # (Manual) Toxic Granulation Toxic Vacuolation Dohle Bodies Sodium Potassium Chloride Carbon Dioxide Anion Gap BUN Creatinine Est Cr Clr Drug Dosing Est GFR ( Amer) Est GFR (Non-Af Amer) BUN/Creatinine Ratio Glucose POC Glucose 109 H Calcium Phosphorus Magnesium Total Bilirubin AST ALT Alkaline Phosphatase Total Protein Albumin Globulin Albumin/Globulin Ratio Blood Type Cancelled Rho(D) Type Cancelled Antibody Screen Cancelled Crossmatch See Detail See Detail 11/28/18 11/29/18 11/29/18 20:45 00:34 04:39 WBC RBC Hgb Hct MCV MCH MCHC RDW Std Deviation RDW Coeff of Zuleima Plt Count MPV Neutrophils % (Manual) Lymphocytes % (Manual) Monocytes % (Manual) Neutrophils # (Manual) Total Absolute Neuts Lymphocytes # (Manual) Total Abs Lymphocytes Monocytes # (Manual) Toxic Granulation Toxic Vacuolation Dohle Bodies Sodium Potassium Chloride Carbon Dioxide Anion Gap BUN Creatinine Est Cr Clr Drug Dosing Est GFR ( Amer) Est GFR (Non-Af Amer) BUN/Creatinine Ratio Glucose POC Glucose 137 H 171 H 203 H Calcium Phosphorus Magnesium Total Bilirubin AST ALT Alkaline Phosphatase Total Protein Albumin Globulin Albumin/Globulin Ratio Blood Type Rho(D) Type Antibody Screen Crossmatch 11/29/18 11/29/18 11/29/18 06:05 06:05 07:32 WBC 1.58 L RBC 2.65 L Hgb 8.0 L Hct 22.1 L MCV 83.4 MCH 30.2 MCHC 36.2 H RDW Std Deviation 49.9 H RDW Coeff of Zuleima 16.5 H Plt Count 25 L* D MPV 9.7 Neutrophils % (Manual) 65.5 Lymphocytes % (Manual) 11.5 Monocytes % (Manual) 23.0 Neutrophils # (Manual) 1.03 L Total Absolute Neuts 1.03 L Lymphocytes # (Manual) 0.18 L Total Abs Lymphocytes 0.18 L Monocytes # (Manual) 0.36 Toxic Granulation 3+ Toxic Vacuolation 3+ Dohle Bodies 3+ Sodium 133 L Potassium 3.1 L Chloride 105 Carbon Dioxide 20 L Anion Gap 8.0 BUN 28 H Creatinine 2.39 H Est Cr Clr Drug Dosing 34.6 Est GFR ( Amer) 41.8 Est GFR (Non-Af Amer) 36.1 BUN/Creatinine Ratio 11.5 Glucose 192 H POC Glucose 229 H Calcium 7.7 L Phosphorus 1.6 L Magnesium 1.7 L Total Bilirubin 0.8 AST 10 L ALT 11 L Alkaline Phosphatase 152 H Total Protein 5.2 L Albumin 1.7 L Globulin 3.5 Albumin/Globulin Ratio 0.5 L Blood Type Rho(D) Type Antibody Screen Crossmatch 11/29/18 11:45 WBC RBC Hgb Hct MCV MCH MCHC RDW Std Deviation RDW Coeff of Zuleima Plt Count MPV Neutrophils % (Manual) Lymphocytes % (Manual) Monocytes % (Manual) Neutrophils # (Manual) Total Absolute Neuts Lymphocytes # (Manual) Total Abs Lymphocytes Monocytes # (Manual) Toxic Granulation Toxic Vacuolation Dohle Bodies Sodium Potassium Chloride Carbon Dioxide Anion Gap BUN Creatinine Est Cr Clr Drug Dosing Est GFR ( Amer) Est GFR (Non-Af Amer) BUN/Creatinine Ratio Glucose POC Glucose 103 H Calcium Phosphorus Magnesium Total Bilirubin AST ALT Alkaline Phosphatase Total Protein Albumin Globulin Albumin/Globulin Ratio Blood Type Rho(D) Type Antibody Screen Crossmatch (1) Acute kidney failure Acute renal failure type: unspecified Qualified Code(s): N17.9 - Acute kidney failure, unspecified (2) Testicular cancer Descendance of testis: descended Laterality: left Qualified Code(s): C62.12 - Malignant neoplasm of descended left testis
[2018-11-29] MEDS: POTASSIUM CHLORIDE / WTR 10 MEQ/100 ML PLCT IV SCH ×4 (12:20→17:41)
[2018-11-29] MEDS ORDERED: AMPHETAMINE ASP/SULF/DEXTRAMPH 20 MG TAB PO SCH (12:45)
[2018-11-29] MEDS: AMPHETAMINE ASP/SULF/DEXTRAMPH 10 MG TAB PO SCH (15:33)
[2018-11-29] MEDS: AMPHETAMINE ASP/SULF/DEXTRAMPH 5 MG TAB PO SCH (15:35)
[2018-11-29] MEDS: DEXTROSE 50% 50 ML SYRINGE IV PRN (16:33)
[2018-11-29] MEDS: HYDROCORTISONE HC 2.5% CRM 30GM TUBE EXT SCH (22:28)
[2018-11-30] MEDS: DEXTROSE 5% 1,000 ML IV SCH ×2 (00:32→21:41)
[2018-11-30] MEDS: INSULIN ASPART 100 UNITS/ML 3 ML PEN SC SCH ×6 (00:34→21:46)
[2018-11-30] MEDS: MoRPHine SULFATE CR 15 MG TABCR PO SCH ×3 (05:44→21:45)
[2018-11-30 07:04] LABS: Hematocrit (blood only) 23.7 % (42-52); Hemoglobin 8.4 g/dL (14.0-18.0); Mean Corpuscular Hemoglobin 29.9 pg (25-34); Mean Corpuscular Hgb Conc 35.4 g/dL (32-36); Mean Corpuscular Volume 84.3 fL (80-100); Mean Platelet Volume 10.4 fL (7.4-10.4); Platelet Count 17 K/uL (130-400); RDW Coefficient of Variation 16.8 % (11.5-14.5); Red Blood Count 2.81 M/uL (4.7-6.1); White Blood Count 5.58 K/uL (4.8-10.8)
--- NOTE | 2018-11-30 07:06 | Progress Note ---
Date of Service November 30, 2018 Called by nurse: pt fell on buttocks. No injury, acute bleed or hematoma. Did not hit head. No LOC Chart reviewed. Ordered AM CBC AM team to further evaluate
--- NOTE | 2018-11-30 07:09 | Family Medicine Progress Note ---
Date of Service November 30, 2018 Assessment & Plan (1) Pancytopenia due to antineoplastic chemotherapy: 28 y/o M with PMH Stage IV testicular cancer with mets to abd presented with fever, N/V, dizziness after finishing up chemo therapy last week found to have neutropenic fever which has since resolved. 1) Neutropenic Fever -s/p chemotherapy last week -Blood cx x2 shows pseudomonas, pansensitive. Urine cx no growth. Probable pseudomonal causes from either port or GI. Mediport removed 11/25 (Dr. Major). -Per ID recs: Cont IV Cefepime alone for 10 days. Day 01/09. Repeat blood cx ordered 11/28 -> NGTD -Cont valtrex for HSV prophylaxis -afebrile since admission. -Neutropenia appears to have resolved with a wbc of 5.58 up from 1.58 yesterday, platlets still low at 17 -Will defer decision regarding neutropenic precautions to oncology 2) Pancytopenia 2/2 to antineoplastic chemotherapy -Continues to improve, today: WBC 5.58, Hgb 2.81, Plt 17. Cont trend -Hopeful plts will continue to improve, will hold of on transfusion for now unless recommended by Onc -s/p 2 units PRBCs 11/23, 11/25, 1 unit 11/28 -platelet infusion 11/24 1 unit, 2 units 11/25, 2 units 11/26, 2 units 11/28 -Heme/onc: Cont Neupogen 480 subQ. Transfuse as necessary, specifically for hemoglobin below 7.5 and platelet count below 15,000 3) Acute kidney failure -Consistent with ATN -Cr baseline is about 1.2. Today 2.19, improving again, continue to trend -right-sided solitary kidney only -Nephro:off MIVF , Continue to monitor and replace magnesium and phosphorus as needed but I anticipate this will improve now that oral intake has markedly improved. Nephrology will sign off. Please call with questions or concerns.At discharge, please arrange follow up with Dr. Amin in the nephrology clinic within 2 weeks. Outpatient follow up metabolic within one week of discharge can be faxed to our office at [phone]. 4) R Foot fracture -Suffered during prior hospital stay. Family bringing boot from home. Non- weightbearing status to right foot/leg. 5) Tobacco abuse -cont nicoderm patch - 21mg/day -will primary substance abuse counselor to quit on d/c 6) Chronic pain syndrome -Cont home regimen of meds 7) Nausea/Decreased Appetite -Cont IV Zofran to 8 mg. Per Heme/Onc recs, will consider with 4 mg piggyback dose of dexamethasone if still present, which was done last time. -Marinol to help with nausea, also appetite stimulant. Increased to 5 mg BID 11/27. If no improvement, maybe consider another appetite stimulant such as Megace 8) T1DM -glycemic management consult from pharmacy appreciated -pt refused am insulin, spoke with him and he as agreed to take it. Now back on insulin regimen 10) Electrolyte Abnormality -K 3.8 , Mg 1.5 -Cont trend above with BMP and Mg q12, daily phosphorus. Replete as needed with MgSO4, KCl riders, K Phos -hypoalbuminemia- dietary consult placed to assist with increased protein i ntake, following recs -Nephro signed off 11) Tachycardia -pt in 110s-120s today, improved. Responded to 500cc NS bolus' yesterday. Additionally repeated bolus today and will cont to repeat as needed. Will consider increasing rate of IVF tomorrow. Cont monitor pressures/HR -EKG 11/26- sinus tachycardia -tachycardia likel 10/04 to cancer 12)Lethargy -Resumed Home Adderall dose of 15 mg BID FULL DVT prophylaxis: SCDs Dispo: Home in the next few days Supervising Physician Co-Signing Physician Notes ATTENDING NOTE I saw the patient with Dr. Vasques and confirmed shelton portions of the history and physical exam. I agree with the impression and plan as noted in the resident documentation. The patient is much more awake today and overall feeling better. The Adderall that he was on previously was restarted yesterday and this may be partially responsible for his improve awakeness. He did have a mild fall last night landing on his buttocks; he does not complain of any pain related to this fall. EXAM Awake. Watching TV with his girlfriend. no acute distress. Cardiovascular regular, slightly tachycardic. Respirations nonlabored Abdomen soft nontender No pedal edema. No calf tenderness. IMPRESSION Metastatic testicular cancer Neutropenic fever/Pseudomonal bacteremia status post removal of indwelling Fremxb-o-Lplw Dehydration with ATN Hyponatremia /Hypophosphatemia/Hypokalemia Pancytopenia Hypoalbuminemia Status post nephrectomy Insulin-dependent type 1 diabetic PLAN Continue Adderall 15 mg p.o. twice daily Consider mirtazapine for additional appetite stimulation, although his appetite is improving today. Replete electrolyte deficiencies and monitor Cefepime IV for 10 days total; repeat blood culture at completion White blood cell count has improved; platelet count is down to 17,000; will hold off on platelet transfusion today and see if he naturally recovers. Subjective Pt ams has significantly improved today, he is no longer somnolent. He was i nteractive and participated in the interview. He reported eating about half of his dinner last night. Overnight he fell and hurt his rear end, no sins of bruising or hematoma. This morning I was informed that the pt had refused his am insulin 2/2 to fears of hypoglycemia. We discussed the importance of his insulin regimen with him this morning and he was agreeable to resuming it. I am hopeful Brett continues to improve. Denies: fevers, chills, N/V/ Physical Exam Vital Signs (Past 24 Hours): Last Vital Signs Temp 36.8 C 11/30/18 06:54 Pulse 109 H 11/30/18 06:54 Resp 17 11/30/18 06:54 BP 118/85 11/30/18 06:54 Pulse Ox 97 11/30/18 06:54 Constitutional: + thin and + cachectic; not ill appearing and no altered mental status Eyes: normal visual ann by confrontation Neck: trachea midline, no thyromegaly Respiratory: normal respiratory effort, lungs clear to auscultation Cardiovascular: Rate/Rhythm: regular rhythm and + tachycardic 2+ pedal edma b/l 2/2 to fluids Gastrointestinal (Abdomen): normal bowel sounds, soft, nontender, no hepatosplenomegaly Skin: no rashes, warm and dry Genitourinary: no bruises or hematomas on his backside Results & Data Laboratory Results 11/30/18 11/30/18 11/30/18 Range/Units 11:17 07:44 06:06 WBC 5.58 (4.8-10.8) K/uL RBC 2.81 L (4.7-6.1) M/uL Hgb 8.4 L (14.0-18.0) g/dL Hct 23.7 L (42-52) % MCV 84.3 (80-100) fL MCH 29.9 (25-34) pg MCHC 35.4 (32-36) g/dL RDW Std Deviation 52.0 H (36.4-46.3) fL RDW Coeff of Zuleima 16.8 H (11.5-14.5) % Plt Count 17 L* (130-400) K/uL MPV 10.4 (7.4-10.4) fL Neutrophils % (Manual) 71.0 % Lymphocytes % (Manual) 3.2 % Monocytes % (Manual) 22.6 % Metamyelocytes % (Man) 3.2 % Neutrophils # (Manual) 3.96 (1.4-6.5) K/uL Total Absolute Neuts 3.96 (1.4-6.5) K/uL Lymphocytes # (Manual) 0.18 L (1.2-3.4) K/uL Total Abs Lymphocytes 0.18 L (1.2-3.4) K/uL Monocytes # (Manual) 1.26 H (0.11-0.59) K/uL Metamyelocytes # (Man) 0.18 H (0-0) K/uL Toxic Granulation 3+ Toxic Vacuolation 1+ Dohle Bodies 2+ Tear Drop Cells 1+ Sodium (136-145) mmol/L Potassium (3.5-5.1) mmol/L Chloride (98-107) mmol/L Carbon Dioxide (21-32) mmol/L Anion Gap (3-11) BUN (7-18) mg/dl Creatinine (0.6-1.4) mg/dl Est Cr Clr Drug Dosing ml/min Est GFR ( Amer) Est GFR (Non-Af Amer) BUN/Creatinine Ratio (10-20) Glucose (70-99) mg/dl POC Glucose 349 H 258 H (70-99) Calcium (8.5-10.1) mg/dl Phosphorus (2.5-4.9) mg/dl Magnesium (1.8-2.4) mg/dl Albumin (3.4-5.0) gm/dl 11/30/18 11/30/18 11/30/18 Range/Units 06:06 04:29 00:33 WBC (4.8-10.8) K/uL RBC (4.7-6.1) M/uL Hgb (14.0-18.0) g/dL Hct (42-52) % MCV (80-100) fL MCH (25-34) pg MCHC (32-36) g/dL RDW Std Deviation (36.4-46.3) fL RDW Coeff of Zuleima (11.5-14.5) % Plt Count (130-400) K/uL MPV (7.4-10.4) fL Neutrophils % (Manual) % Lymphocytes % (Manual) % Monocytes % (Manual) % Metamyelocytes % (Man) % Neutrophils # (Manual) (1.4-6.5) K/uL Total Absolute Neuts (1.4-6.5) K/uL Lymphocytes # (Manual) (1.2-3.4) K/uL Total Abs Lymphocytes (1.2-3.4) K/uL Monocytes # (Manual) (0.11-0.59) K/uL Metamyelocytes # (Man) (0-0) K/uL Toxic Granulation Toxic Vacuolation Dohle Bodies Tear Drop Cells Sodium 132 L (136-145) mmol/L Potassium 3.8 D (3.5-5.1) mmol/L Chloride 105 (98-107) mmol/L Carbon Dioxide 19 L (21-32) mmol/L Anion Gap 8.0 (3-11) BUN 27 H (7-18) mg/dl Creatinine 2.19 H (0.6-1.4) mg/dl Est Cr Clr Drug Dosing 37.8 ml/min Est GFR ( Amer) 46.5 Est GFR (Non-Af Amer) 40.1 BUN/Creatinine Ratio 12.3 (10-20) Glucose 243 H (70-99) mg/dl POC Glucose 221 H 161 H (70-99) Calcium 7.5 L (8.5-10.1) mg/dl Phosphorus 2.0 L (2.5-4.9) mg/dl Magnesium 1.5 L (1.8-2.4) mg/dl Albumin 1.8 L (3.4-5.0) gm/dl 11/29/18 11/29/18 11/29/18 Range/Units 20:45 16:50 16:29 WBC (4.8-10.8) K/uL RBC (4.7-6.1) M/uL Hgb (14.0-18.0) g/dL Hct (42-52) % MCV (80-100) fL MCH (25-34) pg MCHC (32-36) g/dL RDW Std Deviation (36.4-46.3) fL RDW Coeff of Zuleima (11.5-14.5) % Plt Count (130-400) K/uL MPV (7.4-10.4) fL Neutrophils % (Manual) % Lymphocytes % (Manual) % Monocytes % (Manual) % Metamyelocytes % (Man) % Neutrophils # (Manual) (1.4-6.5) K/uL Total Absolute Neuts (1.4-6.5) K/uL Lymphocytes # (Manual) (1.2-3.4) K/uL Total Abs Lymphocytes (1.2-3.4) K/uL Monocytes # (Manual) (0.11-0.59) K/uL Metamyelocytes # (Man) (0-0) K/uL Toxic Granulation Toxic Vacuolation Dohle Bodies Tear Drop Cells Sodium (136-145) mmol/L Potassium (3.5-5.1) mmol/L Chloride (98-107) mmol/L Carbon Dioxide (21-32) mmol/L Anion Gap (3-11) BUN (7-18) mg/dl Creatinine (0.6-1.4) mg/dl Est Cr Clr Drug Dosing ml/min Est GFR ( Amer) Est GFR (Non-Af Amer) BUN/Creatinine Ratio (10-20) Glucose (70-99) mg/dl POC Glucose 114 H 132 H 49 L* (70-99) Calcium (8.5-10.1) mg/dl Phosphorus (2.5-4.9) mg/dl Magnesium (1.8-2.4) mg/dl Albumin (3.4-5.0) gm/dl Medications Administered Current Inpatient Medications Acetaminophen (Tylenol) 650 mg PO Q4H PRN PRN Reason: Pain or Fever Stop: 12/23/18 14:08 Last Admin: 11/28/18 10:05 Dose: 650 mg Documented by: Alprazolam (Xanax) 0.5 mg PO BID [facility] Stop: 12/23/18 20:59 Last Admin: 11/30/18 08:09 Dose: 0.5 mg Documented by: Amphetamine/Dextroamphetamine (Adderall) 10 mg PO BID@0700,1400 [facility] Stop: 12/13/18 14:59 Last Admin: 11/30/18 13:45 Dose: 10 mg Documented by: Amphetamine/Dextroamphetamine (Adderall) 5 mg PO BID@0700,1400 [facility] Stop: 12/13/18 14:59 Last Admin: 11/30/18 13:45 Dose: 5 mg Documented by: Clotrimazole (Mycelex) 10 mg BUCCAL [id number] [facility] Stop: 12/03/18 14:59 Last Admin: 11/30/18 11:28 Dose: 10 mg Documented by: Dextrose (Dextrose 50%) 25 - 50 ml IV UD PRN; Protocol PRN Reason: Hypoglycemia Protocol Stop: 12/23/18 14:29 Last Admin: 11/29/18 16:33 Dose: 50 ml Documented by: Dronabinol (Marinol) 5 mg PO BID PRN PRN Reason: Nausea And Vomiting Stop: 12/24/18 17:35 Last Admin: 11/30/18 08:04 Dose: 5 mg Documented by: Filgrastim (Neupogen) 480 mcg SC DAILY [facility] Stop: 12/27/18 08:59 Last Admin: 11/30/18 08:09 Dose: 480 mcg Documented by: Glucagon (Glucagen) 1 mg SQ UD PRN; Protocol PRN Reason: Hypoglycemia Protocol Stop: 12/23/18 14:29 Glucose (Glucose 40%) 15 - 30 gm PO UD PRN; Protocol PRN Reason: Hypoglycemia Protocol Stop: 12/23/18 14:29 Glucose (Dex4 Glucose) 4 - 8 tabs PO UD PRN; Protocol PRN Reason: Hypoglycemia Protocol Stop: 12/23/18 14:29 Heparin Sodium (Porcine) (Heparin Sod 100 Unit/Ml Flush) 5 ml FLUSH PRN PRN PRN Reason: Flush Stop: 12/24/18 00:59 Hydrocortisone (Proctozone Hc 2.5%) 1 appln EXT Q24H [facility] Stop: 12/27/18 20:44 Last Admin: 11/29/18 22:28 Dose: Not Given Documented by: Sodium Chloride (Nss) 250 mls @ 15 mls/hr IV .[id number] PRN PRN Reason: For Transfusion Stop: 12/26/18 08:35 Dextrose (D5w) 1,000 mls @ 50 mls/hr IV .Q20H [facility]ONDA Stop: 12/26/18 10:29 Last Admin: 11/30/18 00:32 Dose: 50 mls/hr Documented by: Sodium Chloride (Nss) 250 mls @ 15 mls/hr IV .[id number] PRN PRN Reason: For Transfusion Stop: 12/28/18 07:20 Potassium Phosphate 30 mmol/ (Sodium Chloride) 510 mls @ 100 mls/hr IV ONE ONE Stop: 11/30/18 14:35 Last Admin: 11/30/18 10:07 Dose: 100 mls/hr Documented by: Insulin Aspart (Novolog Flexpen) 0 units SC ACHS RHONDA Stop: 12/23/18 16:29 Last Admin: 11/30/18 11:26 Dose: 5 units Documented by: Insulin Aspart (Novolog Flexpen) 0 units SC TODAY@0000,0400 [facility] Stop: 12/26/18 00:00 Last Admin: 11/30/18 04:34 Dose: Not Given Documented by: Miscellaneous (Remove Nicoderm Patch) 1 ea N/A HS [facility] Stop: 12/23/18 20:59 Last Admin: 11/29/18 22:35 Dose: 1 ea Documented by: Miscellaneous (Carbohydrates For Hypoglycemia) 15 - 30 gm PO UD PRN PRN Reason: Hypoglycemia Treatment Stop: 12/23/18 14:29 Miscellaneous Information (Consult Glycemic Management Pharmacy) 1 ea N/A UD PRN PRN Reason: Consult Stop: 12/23/18 12:21 Morphine Sulfate (Ms Contin) 30 mg PO Q8 [facility] Stop: 12/07/18 14:29 Last Admin: 11/30/18 13:42 Dose: 30 mg Documented by: Multivitamins (Multivitamin Tab) 1 tab PO DAILY [facility] Stop: 12/24/18 08:59 Last Admin: 11/30/18 08:06 Dose: 1 tab Documented by: Nicotine (Nicoderm Cq) 21 mg TD QAM [facility] Stop: 12/23/18 14:08 Last Admin: 11/30/18 08:06 Dose: 21 mg Documented by: Ondansetron HCl (Zofran) 8 mg IV Q6H PRN PRN Reason: Nausea Stop: 12/23/18 14:08 Oxycodone HCl (Roxicodone Immediate Rel) 10 mg PO Q4H PRN PRN Reason: Pain Stop: 12/07/18 14:08 Last Admin: 11/27/18 19:08 Dose: 10 mg Documented by: Potassium Chloride (Klor-Con M20) 40 meq PO QAM [facility] Stop: 12/29/18 08:59 Last Admin: 11/30/18 08:06 Dose: 40 meq Documented by: Prochlorperazine (Compazine) 10 mg PO Q6H PRN PRN Reason: nausea and vomiting Stop: 12/23/18 14:08 Sucralfate (Carafate) 1 gm PO QID [facility] Stop: 12/25/18 08:59 Last Admin: 11/30/18 13:42 Dose: 1 gm Documented by: Valacyclovir HCl (Valtrex) 1,000 mg PO DAILY [facility] Stop: 12/24/18 08:59 Last Admin: 11/30/18 08:06 Dose: 1,000 mg Documented by: Resident Activity Tracking Resident Involvement: Resident Care Provided Care Provided: Adult Hospital Medicine
[2018-11-30 07:35] LABS: Albumin Level 1.8 gm/dl (3.4-5.0); BUN Creatinine Ratio 12.3 (10-20); Calcium 7.5 mg/dl (8.5-10.1); Creatinine Clr Calc Pharmacy 37.8 ml/min; Est GFR (African American) 46.5; Est GFR (Non-African American) 40.1; Magnesium 1.5 mg/dl (1.8-2.4); Potassium 3.8 mmol/L (3.5-5.1)
[2018-11-30 07:41] LABS: ALC (manual) 0.18 K/uL (1.2-3.4); Dohle Bodies 2+; Lymphocytes # (manual) 0.18 K/uL (1.2-3.4); Lymphocytes % (manual) 3.2 %; Metamyelocytes # (manual) 0.18 K/uL (0-0); Metamyelocytes % (manual) 3.2 %; Monocytes # (manual) 1.26 K/uL (0.11-0.59); Monocytes % (manual) 22.6 %; Neutrophils # (manual) 3.96 K/uL (1.4-6.5); Tear Drop Cells 1+; Toxic Granulation 3+; Toxic Vacuolation 1+
[2018-11-30] MEDS: DRONABINOL 2.5 MG CAP PO PRN (08:04)
[2018-11-30] MEDS: AMPHETAMINE ASP/SULF/DEXTRAMPH 5 MG TAB PO SCH ×2 (08:05→13:45)
[2018-11-30] MEDS: AMPHETAMINE ASP/SULF/DEXTRAMPH 10 MG TAB PO SCH ×2 (08:05→13:45)
[2018-11-30] MEDS: NICOTINE 21 MG/24 HR TDSY TD SCH (08:06)
[2018-11-30] MEDS: SUCRALFATE 1 GM/10 ML UDC PO SCH ×4 (08:06→21:44)
[2018-11-30] MEDS: POTASSIUM CHLORIDE 20 MEQ TABCR PO SCH (08:06)
[2018-11-30] MEDS: MULTIVITAMIN TAB PO SCH (08:06)
[2018-11-30] MEDS: VALACYCLOVIR HCL 500 MG TABLET PO SCH (08:06)
[2018-11-30] MEDS: FILGRASTIM 480 MCG/1.6 ML VIAL SC SCH (08:09)
[2018-11-30] MEDS: ALPRAZolam 0.5 MG TABLET PO SCH ×2 (08:09→21:45)
[2018-11-30] MEDS: CLOTRIMAZOLE 10 MG TROCHE BUCCAL SCH ×5 (08:12→21:51)
[2018-11-30] MEDS ORDERED: POTASSIUM PHOS 3 MMOL/1 ML INFUSION IV STA (08:46)
[2018-11-30] MEDS ORDERED: INSULIN GLARGINE SOLOSTAR 100 UNITS/ML 3 ML PEN SC ONE ×2 (09:00→11:30)
[2018-11-30] MEDS ORDERED: POTASSIUM PHOSPHATE 30 MMOL in SODIUM CHLORIDE 0.9% 500 ML IV ONE (09:30)
[2018-11-30] MEDS: MAGNESIUM SULFATE / D5W 1 GM/100 ML BAG IV SCH ×2 (10:07→11:28)
--- NOTE | 2018-11-30 10:26 | Nephrology Progress Note ---
Date of Service November 30, 2018 Assessment & Plan (1) Hyponatremia: (2) Acute kidney failure: 28-year-old male with metastatic testicular cancer p/w nausea, vomiting, anorexia and fever post chemotherapy. Admitted with neutropenic fever, volume depletion, acute kidney injury, hypokalemia, and metabolic acidosis. Blood cultures positive for pseudomonas. This is being treated with Cefepime. Mediport was removed. ADRI is consistent with ATN. Tolerating IVF well. Creatinine improving. Volume status now maintained off mIVF. HCO3 acceptable. Potassium acceptable. Additional 2 grams IV magnesium ordered this morning. Additional 30 mmol Kphos provided for phosphatemia. Stable off mIVF, creatinine improving, and electrolyte replacement improved. Continue to monitor and replace magnesium and phosphorus as needed but I anticipate this will improve now that oral intake has markedly improved. Nephrology will sign off. Please call with questions or concerns. At discharge, please arrange follow up with Dr. Amin in the nephrology clinic within 2 weeks. Outpatient follow up metabolic within one week of discharge can be faxed to our office at [phone]. (3) Metabolic acidosis: Improving. (4) Pancytopenia: (5) Neutropenic fever: (6) S/p nephrectomy: (7) Testicular cancer: (8) Hypoalbuminemia: Encourage nutrition. Subjective No acute events overnight. Mr. Leigh feels well this morning. Appetite has notably improved. He reports good fluid intake. Strength and activity tolerance are also improving. He is breathing comfortably. LE edema is stable and tolerable. No fevers or chills. Review of Systems All systems reviewed & are unremarkable except as noted in HPI & below Physical Exam Vital Signs (Past 24 Hours): Last Vital Signs Temp 36.8 C 11/30/18 06:54 Pulse 109 H 11/30/18 06:54 Resp 17 11/30/18 06:54 BP 118/85 11/30/18 06:54 Pulse Ox 97 11/30/18 06:54 Constitutional: + ill appearing (chronically) and + thin; no acute distress Eyes: no scleral abnormality and no corneal abnormality ENMT: Mouth: no oral mucosal abnormality and oral mucous membranes not dry Neck: normal visual inspection and trachea midline Respiratory: normal respiratory effort Auscultation: lungs clear to auscultation bilaterally; no rales and no rhonchi Cardiovascular: Rate/Rhythm: regular rate and regular rhythm Heart Sounds: normal S1 and normal S2; no murmur Extremities: + edema (BL LE pitting edema increasing) Gastrointestinal (Abdomen): Inspection/Auscultation: abdomen normal to inspection Percussion/Palpation: abdomen soft; abdomen nontender Musculoskeletal: Extremities: no cyanosis and no clubbing Skin: no rashes and no lesions Neurologic: Motor/Sensory: no tremor and no asterixis Psychiatric: Affect: euthymic affect Results & Data Laboratory Results Laboratory Results - last 24 hr 11/26/18 11/29/18 11/29/18 08:36 11:45 16:29 WBC RBC Hgb Hct MCV MCH MCHC RDW Std Deviation RDW Coeff of Zuleima Plt Count MPV Neutrophils % (Manual) Lymphocytes % (Manual) Monocytes % (Manual) Metamyelocytes % (Man) Neutrophils # (Manual) Total Absolute Neuts Lymphocytes # (Manual) Total Abs Lymphocytes Monocytes # (Manual) Metamyelocytes # (Man) Toxic Granulation Toxic Vacuolation Dohle Bodies Tear Drop Cells Sodium Potassium Chloride Carbon Dioxide Anion Gap BUN Creatinine Est Cr Clr Drug Dosing Est GFR ( Amer) Est GFR (Non-Af Amer) BUN/Creatinine Ratio Glucose POC Glucose 103 H 49 L* Calcium Phosphorus Magnesium Albumin Crossmatch See Detail 11/29/18 11/29/18 11/30/18 16:50 20:45 00:33 WBC RBC Hgb Hct MCV MCH MCHC RDW Std Deviation RDW Coeff of Zuleima Plt Count MPV Neutrophils % (Manual) Lymphocytes % (Manual) Monocytes % (Manual) Metamyelocytes % (Man) Neutrophils # (Manual) Total Absolute Neuts Lymphocytes # (Manual) Total Abs Lymphocytes Monocytes # (Manual) Metamyelocytes # (Man) Toxic Granulation Toxic Vacuolation Dohle Bodies Tear Drop Cells Sodium Potassium Chloride Carbon Dioxide Anion Gap BUN Creatinine Est Cr Clr Drug Dosing Est GFR ( Amer) Est GFR (Non-Af Amer) BUN/Creatinine Ratio Glucose POC Glucose 132 H 114 H 161 H Calcium Phosphorus Magnesium Albumin Crossmatch 11/30/18 11/30/18 11/30/18 04:29 06:06 06:06 WBC 5.58 RBC 2.81 L Hgb 8.4 L Hct 23.7 L MCV 84.3 MCH 29.9 MCHC 35.4 RDW Std Deviation 52.0 H RDW Coeff of Zuleima 16.8 H Plt Count 17 L* MPV 10.4 Neutrophils % (Manual) 71.0 Lymphocytes % (Manual) 3.2 Monocytes % (Manual) 22.6 Metamyelocytes % (Man) 3.2 Neutrophils # (Manual) 3.96 Total Absolute Neuts 3.96 Lymphocytes # (Manual) 0.18 L Total Abs Lymphocytes 0.18 L Monocytes # (Manual) 1.26 H Metamyelocytes # (Man) 0.18 H Toxic Granulation 3+ Toxic Vacuolation 1+ Dohle Bodies 2+ Tear Drop Cells 1+ Sodium 132 L Potassium 3.8 D Chloride 105 Carbon Dioxide 19 L Anion Gap 8.0 BUN 27 H Creatinine 2.19 H Est Cr Clr Drug Dosing 37.8 Est GFR ( Amer) 46.5 Est GFR (Non-Af Amer) 40.1 BUN/Creatinine Ratio 12.3 Glucose 243 H POC Glucose 221 H Calcium 7.5 L Phosphorus 2.0 L Magnesium 1.5 L Albumin 1.8 L Crossmatch 11/30/18 07:44 WBC RBC Hgb Hct MCV MCH MCHC RDW Std Deviation RDW Coeff of Zuleima Plt Count MPV Neutrophils % (Manual) Lymphocytes % (Manual) Monocytes % (Manual) Metamyelocytes % (Man) Neutrophils # (Manual) Total Absolute Neuts Lymphocytes # (Manual) Total Abs Lymphocytes Monocytes # (Manual) Metamyelocytes # (Man) Toxic Granulation Toxic Vacuolation Dohle Bodies Tear Drop Cells Sodium Potassium Chloride Carbon Dioxide Anion Gap BUN Creatinine Est Cr Clr Drug Dosing Est GFR ( Amer) Est GFR (Non-Af Amer) BUN/Creatinine Ratio Glucose POC Glucose 258 H Calcium Phosphorus Magnesium Albumin Crossmatch (1) Testicular cancer Descendance of testis: descended Laterality: left Qualified Code(s): C62.12 - Malignant neoplasm of descended left testis (2) Acute kidney failure Acute renal failure type: unspecified Qualified Code(s): N17.9 - Acute kidney failure, unspecified
[2018-11-30] MEDS: HYDROCORTISONE HC 2.5% CRM 30GM TUBE EXT SCH (21:47)
[2018-12-01] MEDS: INSULIN ASPART 100 UNITS/ML 3 ML PEN SC SCH ×6 (00:16→21:01)
[2018-12-01] MEDS: MoRPHine SULFATE CR 15 MG TABCR PO SCH ×3 (06:06→21:46)
[2018-12-01 07:04] LABS: Albumin Level 1.8 gm/dl (3.4-5.0); BUN Creatinine Ratio 11.7 (10-20); Calcium 7.5 mg/dl (8.5-10.1); Creatinine Clr Calc Pharmacy 37.6 ml/min; Est GFR (African American) 46.5; Est GFR (Non-African American) 40.1
[2018-12-01 07:06] LABS: Albumin Globulin Ratio 0.5 (0.9-2); Bilirubin,Total 0.6 mg/dl (0.2-1); Globulin 3.3 gm/dl (2.5-4.0); Phosphorus 2.2 mg/dl (2.5-4.9); Total Protein 5.1 gm/dl (6.4-8.2)
[2018-12-01 07:16] LABS: Hematocrit (blood only) 24.6 % (42-52); Hemoglobin 8.5 g/dL (14.0-18.0); Mean Corpuscular Hemoglobin 29.4 pg (25-34); Mean Corpuscular Hgb Conc 34.6 g/dL (32-36); Mean Corpuscular Volume 85.1 fL (80-100); Platelet Count 14 K/uL (130-400); RDW Standard Deviation 52.7 fL (36.4-46.3); Red Blood Count 2.89 M/uL (4.7-6.1); White Blood Count 14.88 K/uL (4.8-10.8)
[2018-12-01 07:21] LABS: Dohle Bodies 2+; Monocytes # (manual) 0.67 K/uL (0.11-0.59); Monocytes % (manual) 4.5 %; Myelocytes # (manual) 0.27 K/uL (0-0); Myelocytes % (manual) 1.8 %; Neutrophils # (manual) 13.94 K/uL (1.4-6.5); Neutrophils % (manual) 93.7 %; Toxic Granulation 2+; Toxic Vacuolation 1+
[2018-12-01] MEDS: SUCRALFATE 1 GM/10 ML UDC PO SCH ×4 (08:25→20:38)
[2018-12-01] MEDS: NICOTINE 21 MG/24 HR TDSY TD SCH (08:26)
[2018-12-01] MEDS: AMPHETAMINE ASP/SULF/DEXTRAMPH 10 MG TAB PO SCH ×2 (08:26→14:27)
[2018-12-01] MEDS: ALPRAZolam 0.5 MG TABLET PO SCH ×2 (08:26→20:37)
[2018-12-01] MEDS: AMPHETAMINE ASP/SULF/DEXTRAMPH 5 MG TAB PO SCH ×2 (08:26→14:27)
[2018-12-01] MEDS: DRONABINOL 2.5 MG CAP PO PRN (08:26)
[2018-12-01] MEDS: MULTIVITAMIN TAB PO SCH (08:27)
[2018-12-01] MEDS: VALACYCLOVIR HCL 500 MG TABLET PO SCH (08:27)
[2018-12-01] MEDS: POTASSIUM CHLORIDE 20 MEQ TABCR PO SCH (08:27)
[2018-12-01] MEDS: CLOTRIMAZOLE 10 MG TROCHE BUCCAL SCH ×5 (08:28→21:47)
[2018-12-01] MEDS ORDERED: SODIUM CHLORIDE 0.9% 250 ML IV PRN (08:28)
[2018-12-01] MEDS ORDERED: POTASSIUM PHOS 3 MMOL/1 ML INFUSION IV STA (08:30)
[2018-12-01] MEDS ORDERED: POTASSIUM PHOSPHATE 15 MMOL in SODIUM CHLORIDE 0.9% 250 ML IV ONE (08:45)
[2018-12-01] MEDS ORDERED: CEFEPIME 2,000 MG in SYRINGE 7.5 ML IV SCH (09:30)
[2018-12-01] MEDS ORDERED: INSULIN GLARGINE SOLOSTAR 100 UNITS/ML 3 ML PEN SC ONE (10:00)
[2018-12-01] MEDS: FILGRASTIM 480 MCG/1.6 ML VIAL SC SCH (10:10)
--- NOTE | 2018-12-01 13:01 | Pharmacy Report ---
Pharmacy Glycemic Short Note 2 - Date of Service December 01, 2018 - Glycemic Short BSG Results (Last 24 hours): 11/30/18 11/30/18 12/01/18 16:32 21:00 00:14 Glucose POC Glucose 169 H 168 H 152 H 12/01/18 12/01/18 12/01/18 04:38 05:56 08:00 Glucose 233 H POC Glucose 181 H 276 H 12/01/18 11:42 Glucose POC Glucose 192 H OUTPATIENT ANTIDIABETIC REGIMEN: * Tresiba 21 units qPM * Lispro SS (1 unit per 10 grams CHO) ASSESSMENT: * Significant hypoglycemia to 49 mg/dL (despite D5 infusion @ 50 mL/hr) noted on 11/29 - likely etiology is increase in Lantus as no Novolog was administered at the prior check and BSG was 103 mg/dL. Lantus was decreased from 7 to 5 units on 11/30 * BSG's improved yesterday evening and overnight (ranging 152-181 mg/dL) therefore continued Lantus 5 units daily this AM * Breakfast and lunch BSG's elevated today - will add in Lantus scale tomorrow AM, but not back to previous dose which caused hypoglycemia PLAN FOR INPATIENT GLYCEMIC CONTROL: * Basal insulin * Lantus 5-6 units SQ qAM, depending on BSG < or > 180 mg/dL * Bolus insulin * NovoLog per scale ACHS or Q6hrs while NPO * Goal Range: Low 140 mg/dL - High 180 mg/dL * Correction Factor: 40 mg/dL/unit * Continue overnight checks
[2018-12-01 15:29] VITALS: O2SAT 100
--- NOTE | 2018-12-01 18:01 | Family Medicine Progress Note ---
Date of Service December 01, 2018 Assessment & Plan (1) Bacteremia due to Pseudomonas: Neutropenic Fever Improved White count elevated to 14.88 today Last fever 11/28 Will continue cefipime 2 g daily Pancytopenia White count improved as stated above Platelets dropped to 14 and we transfused 2 units platelets Still anemic Increasing white count encouraging that bone marrow is working, hopefully a harbinger for other cell lines to rise. ADRI Improving, likely secondary to ATN. Hypo natremia Mostly resolved with better PO intake 134 today Testicular Cancer Will continue to follow with Heme/Onc, will likely need new port once he clears current infection. Encouraging medical compliance and necessity of getting treatment (2) Hypoalbuminemia: (3) Pancytopenia due to antineoplastic chemotherapy: (4) Acute kidney failure: (5) Hypokalemia: (6) Neutropenic fever: (7) S/p nephrectomy: (8) Polysubstance abuse: (9) Elevated LFTs: (10) Foot fracture, right: (11) Tobacco use: Supervising Physician Co-Signing Physician Notes I personally examined the patient and verified all shelton points of history and exam, discussed case, and agree with decision making with Dr Gibbons. Feeling better, eating reasonably. No fevers or chills or sweats. Discussed the preference to keep him in the hospital into tomorrow to see ongoing improvement in his counts and ongoing clinical stability, he notes he feels he can do that. We did discuss with his prior tendency to sign out AMA, but with his current bacteremia, that should he be ready to sign out AMA we would request that he would give us enough time to at least prescribe antibiotics to keep him from having a deadly decline. Vitals noted, in general he is awake and alert pleasant no distress. HEENT normal cephalic atraumatic mucous membranes moist. Breathing is unlabored no accessory muscle use good effort. Skin shows no rashes no pallor or icterus. Pseudomonas bacteremiaresume cefepime, anticipate transition to Levaquin to complete therapy. Stable for [facility], hopefully home tomorrow with ongoing improvement/clinical stability. Subjective Patient reports that he is in his usual state of health today, denied all review of systems questions. He is excited that his white count has increased and wants to know when he can go home. Patient's girlfriend threatening that he will leave AMA if not able to be released soon. Constitutional: no fever, no chills, no sweats, no fatigue, no malaise and no weakness Respiratory: no cough, no chest congestion and no dyspnea Cardiovascular: no chest pain, no dyspnea, no palpitations and no syncope Gastrointestinal: no abdominal pain, no nausea and no vomiting Physical Exam Vital Signs (Past 24 Hours): Last Vital Signs Temp 36.3 C L 12/01/18 15:53 Pulse 101 H 12/01/18 17:33 Resp 16 12/01/18 15:53 BP 116/89 12/01/18 15:53 Pulse Ox 100 12/01/18 15:53 Constitutional: well developed and well nourished; no acute distress Respiratory: normal respiratory effort, lungs clear to auscultation Cardiovascular: RRR, no murmur, no edema Gastrointestinal (Abdomen): Percussion/Palpation: abdomen soft; abdomen nontender and no hepatosplenomegaly Resident Activity Tracking Resident Involvement: Resident Care Provided Care Provided: Adult Hospital Medicine (1) Acute kidney failure Acute renal failure type: unspecified Qualified Code(s): N17.9 - Acute kidney failure, unspecified (2) Foot fracture, right Encounter type: sequela Fracture type: closed Qualified Code(s): S92.901S - Unspecified fracture of right foot, sequela
[2018-12-01] MEDS: DEXTROSE 5% 1,000 ML IV SCH (18:09)
[2018-12-01 20:28] VITALS: BP 125/87; PULSE 115; TEMP 97.9
[2018-12-01] MEDS: HYDROCORTISONE HC 2.5% CRM 30GM TUBE EXT SCH (20:37)
[2018-12-01] MEDS: CARBOHYDRATES FOR HYPOGLYCEMIA PO PRN ×2 (20:56→21:20)
[2018-12-02] MEDS ORDERED: INSULIN GLARGINE SOLOSTAR 100 UNITS/ML 3 ML PEN SC SCH (09:00)
[2018-12-02] MEDS ORDERED: CEFEPIME 2,000 MG in SYRINGE 7.5 ML IV SCH (09:00)
--- NOTE | 2018-12-02 19:02 | Discharge Summary ---
Date of Service December 02, 2018 Admission HPI Per Admitting Provider 28yo male with stage 4 testicular cancer - admitted a little over 1 week ago for scheduled chemotherapy - presents with high fevers to 101 starting /Saturday, nausea, occasional emesis, occasional diarrhea, ongoing right foot pain due to multiple fractures, dizziness upon standing, sores in his mouth, hypoglycemia (80s), and ongoing poor oral intake. Father has been sick with cough. Brett has had a slight cough as well. He did not take his Tresiba last night, and his last lispro dose was dinner time yesterday (2 units?). His last BSG was 208 this AM at home. Principal Diagnosis pseudomonas bacteremia Discharge Data Allergies Allergy/AdvReac Type Severity Reaction Status Date / Time No Known Allergies Allergy Verified 11/23/18 09:41 Consultations 11/23/18 13:35 ED Decision to Admit Stat 11/23/18 14:09 Consult Hematology Routine 11/25/18 09:49 Consult General Surgery Stat 11/25/18 18:14 Consult Infectious Diseases Routine Procedures Performed Operation Date: 11/25/18 11:40 Actual Procedures p Removal of Richardson Catheter - Fidencio Major MD Ordered Studies 11/23/18 12:04 US renal/blad retro comp Stat Hospital Course (1) Bacteremia due to Pseudomonas: left AMA. see progress note 4/1. With patient's propensity to leave AMA, I even candidly asked him that should he decide to sign out AMA to please at least give us advance notice to be able to prescribe ongoing antibiotics given that he has a life-threatening bloodstream infection. Unfortunately he left anyway. I did ask the nurse navigator to get in touch with him to start a course of Levaquin, renally dosed at 750 mg every 48 hours for 14 days. Risks benefits certainly favor this approach, he is a type I diabetic as far as any type of vascular risk, but the risk of not treating his Pseudomonas is significantly higher, and his noncompliance/leaving against advice seems to significantly preclude the ability to arrange ongoing IV treatment as an outpatient. Total Time Total Time Spent Total Time Spent (In Minutes): AMA Discharge Plan Discharge Items Patient Disposition: Against Medical Advice Admission Data Admit Date/Time: 11/23/18 12:15 Attending Provider: Bob Graf Admit Provider: Reji Poole Primary Care Provider: Kade Kelsey III Other Providers: Carroll George ; Reji Poole ; Eduardo Herrera V ; Fidencio Major ; Jeannette Irizarry Service: Oncology Other DC Date/Time DO NOT enter until pt leaves facility: 12/01/18 22:17
== END 2018-12-01 22:17 | disposition left against medical advice (07) | DRG 314 ==
LOC: ED 09:01 → 2E 12:15 → SUATTDRO 12:15 → 2E 14:04 → 4E 12-01 18:01
DX: T82.7XXA Infection and inflammatory reaction due to other cardiac and vascular devices, implants and grafts, initial encounter; Z53.21 Procedure and treatment not carried out due to patient leaving prior to being seen by health care provider; E83.39 Other disorders of phosphorus metabolism; F41.9 Anxiety disorder, unspecified; E83.51 Hypocalcemia; Z91.19 Patient's noncompliance with other medical treatment and regimen; N17.0 Acute kidney failure with tubular necrosis; C79.89 Secondary malignant neoplasm of other specified sites; Z79.899 Other long term (current) drug therapy; E87.6 Hypokalemia; R62.7 Adult failure to thrive; Z90.5 Acquired absence of kidney; R53.83 Other fatigue; E87.2 Acidosis; X58.XXXD Exposure to other specified factors, subsequent encounter; S92.901D Unspecified fracture of right foot, subsequent encounter for fracture with routine healing; E10.649 Type 1 diabetes mellitus with hypoglycemia without coma; E86.0 Dehydration; Z79.891 Long term (current) use of opiate analgesic; E43 Unspecified severe protein-calorie malnutrition; F17.210 Nicotine dependence, cigarettes, uncomplicated; E88.09 Other disorders of plasma-protein metabolism, not elsewhere classified; E87.1 Hypo-osmolality and hyponatremia; F12.10 Cannabis abuse, uncomplicated; Z68.1 Body mass index [BMI] 19.9 or less, adult; R78.81 Bacteremia; B96.5 Pseudomonas (aeruginosa) (mallei) (pseudomallei) as the cause of diseases classified elsewhere; G89.4 Chronic pain syndrome; C62.90 Malignant neoplasm of unspecified testis, unspecified whether descended or undescended; R11.2 Nausea with vomiting, unspecified; R50.81 Fever presenting with conditions classified elsewhere; T45.1X5A Adverse effect of antineoplastic and immunosuppressive drugs, initial encounter; Z53.29 Procedure and treatment not carried out because of patient's decision for other reasons; Z79.4 Long term (current) use of insulin; D70.1 Agranulocytosis secondary to cancer chemotherapy; Y71.2 Prosthetic and other implants, materials and accessory cardiovascular devices associated with adverse incidents; R19.7 Diarrhea, unspecified; E83.42 Hypomagnesemia; D61.810 Antineoplastic chemotherapy induced pancytopenia; R00.0 Tachycardia, unspecified

== ENCOUNTER 2019-06-25 15:57 | Inpatient (IN) ==
[2019-06-25] MEDS ORDERED: SODIUM CHLORIDE 0.9% 1000ML 1,000 ML IV ONE (18:57)
[2019-06-25] MEDS ORDERED: GLUCAGON HCL 1 MG SCH (18:57)
[2019-06-25] MEDS ORDERED: ONDANSETRON 4 MG TAB PO PRN (18:57)
--- NOTE | 2019-06-25 19:13 | History & Physical Report ---
Date of Service June 25, 2019 Assessment & Plan (1) Acute on chronic renal failure: Patient is directly admitted from Dr. Franklin's office. Gently hydrate with normal saline at 75 cc an hour for 1 L. We will check a renal ultrasound. We will consult nephrology. (2) Hyponatremia: Likely secondary to chronic kidney disease. We will check urine osmolality, urine creatinine and urine sodium. (3) Hx of testicular cancer: With metastatic disease and significant carcinomatosis. Patient follows with Dr. Cruz. (4) Attention deficit hyperactivity disorder: We will continue Adderall (5) Diabetes mellitus type 1, uncontrolled: Will decrease patient's home dose of Lantus to [address] patient on sliding scale insulin. Patient on a diabetic diet. (6) Tobacco use: Patient reports smoking 1-1/2 to 2 packs/day. We will put on nicotine patch 21 mg/day. (7) Cancer related pain: Continue patient's fentanyl and oxycodone. We will decrease Lyrica to 25 mg twice daily due to his renal function. We will order Dilaudid 0.25 mg every 6 hours as needed breakthrough pain. (8) Metastatic cancer to brain: Stable since last admission. Patient denies any recent seizures. (9) Severe protein-calorie malnutrition: Will order boost supplementation while patient is here. (10) Edema: (11) DVT prophylaxis: History of Present Illness Chief Complaint: Abdominal pain Primary Care Provider: Kade Kelsey MD This is a 28-year-old male with past medical history including stage IV testicular cancer with brain metastasis, type 1 diabetes, CKD stage III, depression, anxiety, and vascular necrosis of the femur, seizures, herpes zoster Bacot abuse who was direct admitted with abdominal pain and acute on chronic renal failure. Patient has been following with Dr. Cruz as an outpatient. He was seen at [facility] in the beginning of the month for possible stem cell transplant. They are unable to get enough stem cells to proceed with this. Patient's renal function has been progressively worsening. Patient is having increased abdominal pain. Patient was scheduled for paracentesis on 06/23/2019 however only limited amount of ascites is present and a safe approach was not felt to be present so exam was aborted. There was noted to be extensive carcinomatosis causing the bulk of abdominal distention. Patient states while at [facility] they did a chemistry showed worsening kidney function. Patient had a chemistry performed today which showed creatinine was 4.59 from a baseline of 2.34 in May 21, 2019 Allergies Allergy/AdvReac Type Severity Reaction Status Date / Time No Known Allergies Allergy Verified 06/23/19 08:36 Home Medications Home Medications Medication Instructions Recorded Confirmed Type insulin lispro [Admelog SoloStar See Rx Instructions .ROUTE .COMPLEX 07/25/18 06/25/19 History U-100 Insulin] ondansetron HCl [Zofran] 4 mg PO Q6H PRN #30 tab 11/18/18 06/25/19 Rx insulin degludec (U-100) 100 16 units SUBCUT QPM ml 02/25/19 06/25/19 History unit/mL (3 mL) subcutaneous pen pregabalin 50 mg capsule 50 mg PO BID cap 02/25/19 06/25/19 History glucagon HCl 1 mg solution for 1 mg .ROUTE .COMPLEX #2 ea 04/02/19 06/25/19 History injection oxycodone 5 mg tablet 15 mg PO Q6H PRN tab 04/03/19 06/25/19 History fentanyl 1 patch TRANSDERMAL Q72H 06/23/19 06/25/19 History zolpidem [Ambien] 10 mg PO HS PRN 06/23/19 06/25/19 History Past Med/Surg History Medical History Anxiety (Chronic) Attention deficit hyperactivity disorder (Chronic) Diabetes mellitus type 1, uncontrolled (Chronic) S/p nephrectomy left - 2017; [facility] Polysubstance abuse (Chronic) Elevated LFTs Herpes zoster right forehead Anemia due to antineoplastic chemotherapy Tobacco use (Chronic) Mood disorder (Chronic) Avascular necrosis of bone of left hip CKD (chronic kidney disease), stage II Type I diabetes mellitus (Chronic) Testicular cancer (Chronic) Cancer related pain Metastatic cancer to brain (Chronic) Seizure (Acute) Depression Chronic pain syndrome Severe protein-calorie malnutrition (Chronic) Neuropathy (Acute) Teratoma of pelvis Surgical History History of nephrectomy History of orchiectomy History of repair of left hip joint Family History Grandfather Myocardial infarction Other Cancer Social History Preferred Language: Lithuanian Communication Ability: Effective Installer Technician Required: No Beliefs That Will Affect Care: None marital status: Single Current Living Situation: Family Current Living Situation Comment: parents and fiancee current occupational status: previously employed Other Information That Helps Us Care for You: No 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 Feels Safe at Home: Yes Safety Concerns: Feels Safe At This Time Smoking Status: Current every day smoker Tobacco Type: cigarettes ; Cigarettes Per Day: 2 packs a day ; Do You Dip or Chew Tobacco: No ; Second Hand Exposure: Yes ; Tobacco Cessation Education Requested by Patient: No Hx Alcohol Use: No Hx Substance Use: No Review of Systems Constitutional: + body aches, + fatigue and + anorexia Eyes: no blind spots and no diplopia Ear, Nose, Mouth, Throat: no ear pain and no tinnitus Respiratory: + dyspnea on exertion; no cough and no dyspnea Cardiovascular: + chest pain; no chest pain with activity Gastrointestinal: + abdominal pain, + bloating and + early satiety Genitourinary: + scrotal swelling; no dysuria and no urinary hesitancy Neurologic: + gait abnormality; no syncope Psychiatric: + depression and + anxiety; no behavioral changes Endocrine: + fatigue Physical Exam Constitutional: + ill appearing, + cachectic and + edematous Eyes: PERRL, conjunctivae normal, anicteric sclerae ENMT: Ears: no hearing impairment Neck: trachea midline, no thyromegaly Respiratory: normal respiratory effort Auscultation: + diminished lung sounds Cardiovascular: RRR, no murmur, no edema Extremities: + edema Gastrointestinal (Abdomen): Inspection/Auscultation: + abdomen distended Percussion/Palpation: + abdomen tender, + ascites and + dullness to percussion Skin: + turgor decreased Neurologic: patellar DTR's 2+ bilat, sensation intact Psychiatric: A+Ox3, euthymic affect Genitourinary: + scrotum abnormality, + edema and + edematous penis Results & Data Vital Signs (Past 12 Hours) Vital Signs Temp Pulse Resp BP Pulse Ox 06/25/19 17:09 36.3 C L 104 H 18 108/63 99 06/25/19 16:33 36.3 C L 104 H 18 108/63 99 Laboratory Results Cr 4.59 K 5.1 Na 126 Hb 8.2 Code Status & VTE Plan Code Status full code VTE Prophylaxis Plan VTE Prophylaxis will be ordered: Yes Supervising Physician Co-Signing Physician Notes Attending Attestation and Admission Note: Pt seen/examined, chart reviewed, care plan d/w Dr Elie Kaufman. I agree w/ the shelton components of his admission documentation. 29yo male with solitary kidney status, stage 4 testicular cancer, T1DM, severe protein calorie malnutrition, carcinomatosis 2nd to testicular cancer, failure to thrive -well known to me from prior admissions- presenting as direct admission from Dr Cruz's oncology office for worsening renal function and ongoing abdominal pain. During the visit his main complaint was that of abdominal bloating and pain. He was recently placed on fentanyl patch by [facility] in [place]. About 1 week ago he was being evaluated for stem cell transplant and was deemed not a candidate. During that visit he had a tunneled triple-lumen catheter placed for access. He reports very poor appetite for multiple days. Had emesis this am. Has skipped his Tresiba for several days. He reports having had dopplers of his legs at [facility] last week; he was told he did not have DVTs. PMH, PSH, allergies, meds, sochx, famhx, ros - reviewed vitals - tachy, BP wnl, o2 sats nl gen - cacechtic, awake, alert, mild abd pain reported mouth - MM dry neck - no JVD heart - tachy, s1 s2 lungs - CTA b/l but decreased BS bases abd - markedly distended, tense, diffuse tenderness, BS+, linear scar present ext - 3+ pitting edema to the thighs - severe scrotal edema labs noted A/P: 1. abdominal pain 2nd to severe carcinomatosis from testicular cancer 2. CKD stage 3/4 - now with acute kidney injury that is worsening - etiology uncertain 3. T1DM 4. hyponatremia 2nd to worsening renal function 5. testicular cancer - extensive - stage 4 with brain mets 6. severe LE edema 7. solitary kidney status patient is overall total body fluid overloaded but looks intra-vascularly dry will give 1 L NS x 1 and reassess renal function check renal u/s - r/o obstruction of solitary kidney; urology consult if there is hydronephrosis formal nephrology consult planned pain control - ordered IV dilaudid; cont fentanyl patch check urine studies lantus/novolog prognosis is very, very poor I spoke directly with Dr Cruz - he would be willing to try gentcitabine as latch-ditch chemotherapy if renal function can be supported otherwise we are rapidly approaching palliative care/hospice patient does request full code status at this time, however Reji Poole MD PG Care Time/CCT Total # of Minutes Spent Total Time Spent with Patient: Total time spent is greater than 50% in coordination of care (as documented) at patient's floor/unit and/or counseling patient: 60 (1) Diabetes mellitus type 1, uncontrolled Glycemic state: with hyperglycemia Qualified Code(s): E10.65 - Type 1 diabetes mellitus with hyperglycemia (2) Attention deficit hyperactivity disorder Attention deficit-hyperactivity disorder type: unspecified Qualified Code(s): F90.9 - Attention-deficit hyperactivity disorder, unspecified type (3) Acute on chronic renal failure Acute renal failure type: unspecified Chronic kidney disease stage: unspecified stage Qualified Code(s): N17.9 - Acute kidney failure, unspecified; N18.9 - Chronic kidney disease, unspecified (4) Edema Edema type: unspecified Qualified Code(s): R60.9 - Edema, unspecified
--- NOTE | 2019-06-25 19:28 | XRay Report ---
XR chest 1V portable CLINICAL HISTORY: diminished breath sounds COMPARISON STUDY: Chest CT March 12, 2019 FINDINGS: Right internal jugular dual lumen catheter is in place. There is no pneumothorax. Lung volu mes are diminished. There is mild left basilar opacity. The suspected right basilar opacity. There is no evidence for pulmonary edema. Cardiac size is normal. Mediastinal contours are normal. There may be a small left pleural effusion. IMPRESSION: Low lung volumes with mild bibasilar opacities and a possible small left pleural effusio n. Electronically signed by: Guicho Olivera M.D. 06/25/2019 7:26 PM
[2019-06-25] MEDS ORDERED: CARBOHYDRATES FOR HYPOGLYCEMIA PO PRN (20:00)
[2019-06-25] MEDS ORDERED: GLUCOSE 40% GEL 15 GM TUBE PO PRN (20:00)
[2019-06-25] MEDS ORDERED: GLUCAGON FOR INJ 1 MG VIAL IM PRN (20:00)
[2019-06-25] MEDS ORDERED: GLUCOSE 10 TABS/TUBE PO PRN (20:00)
[2019-06-25] MEDS ORDERED: DEXTROSE 50% 50 ML SYRINGE IV PRN (20:00)
[2019-06-25 20:08] LABS: Appearance Urine Cloudy (Clear); Bacteria Urine Automated Negative (Negative); Bilirubin Urine Negative (Negative); Blood Urine Trace (Negative); Color Urine Yellow; Epithelial Cell Urine Auto >30 /lpf (0-5); Glucose Urine UA Negative (Negative); Ketones Urine Negative (Negative); Leukocyte Esterase Urine Negative (Negative); Nitrite Urine Negative (Negative); Protein Urine 2+ (Negative); RBC Urine Automated 0-4 /hpf (0-4); Specific Gravity Urine 1.025 (1.000-1.030); Urobilinogen Urine Negative (Negative)
--- NOTE | 2019-06-25 20:25 | Ultrasound Report ---
RENAL ULTRASOUND CLINICAL HISTORY: acute on chronic renal failure, carcinomatosis COMPARISON STUDY: CT of the abdomen and pelvis May 22, 2019. TECHNIQUE: Sonography of the kidneys and the urinary bladder was performed. FINDINGS: A small amount of ascites is noted. Extensive peritoneal carcinomatosis is noted. Left kidn ey is surgically absent. The right kidney is difficult to visualize on this exam, likely due to incre ased echogenicity. There is no right hydronephrosis. The bladder is not well visualized on this exam. IMPRESSION: 1. Technically difficult exam. Right kidney probably visualized. No right hydronephrosis. Echogenic r ight kidney. 2. Status post left nephrectomy. 3. Extensive peritoneal carcinomatosis. Small amount of ascites. Electronically signed by: Guicho Olivera M.D. 06/25/2019 8:24 PM
[2019-06-25] MEDS: PREGABALIN 25 MG CAP PO SCH (20:30)
[2019-06-25] MEDS: NICOTINE 21 MG/24 HR TDSY TD SCH (20:30)
[2019-06-25] MEDS: INSULIN ASPART 100 UNITS/ML 3 ML PEN SC SCH (20:30)
[2019-06-25] MEDS: HYDROmorphone INJ 0.5 MG/0.5 ML SYR IV PRN (20:37)
[2019-06-25 20:43] LABS: Amorphous Sediment Urine Present (None Prsent)
[2019-06-25] MEDS ORDERED: fentaNYL 25 MCG/HR TDSY TD SCH (21:00)
[2019-06-25] MEDS ORDERED: INSULIN GLARGINE SOLOSTAR 100 UNITS/ML 3 ML PEN SQ SCH ×2 (21:00)
[2019-06-25] MEDS: OXYCODONE HCL IR 5 MG TAB (IMMEDIATE RELEASE) PO PRN (21:58)
[2019-06-25] MEDS: ZOLPIDEM TARTRATE 10 MG TAB PO PRN (21:59)
[2019-06-26] MEDS ORDERED: CHECK FENTANYL PATCH PLACEMENT SCH
[2019-06-26] MEDS ORDERED: HYDROmorphone INJ 0.5 MG/0.5 ML SYR IV STA ×4 (00:06→08:42)
[2019-06-26] MEDS ORDERED: HYDROmorphone INJ 1 MG/ML SYRINGE IV STA ×2 (02:09→07:30)
--- NOTE | 2019-06-26 02:13 | Communication Note ---
Date of Service: June 26, 2019 patient's pain not controlled--- Gave additional .5mg of Dilaudid with improvement for approx 1.5 hour, with return of pain---very uncomfortable, moaning Giving 1 mg of Dilaudid and Increasing Fentanyl patch to 50 mcg
[2019-06-26] MEDS: fentaNYL 50 MCG/HR TDSY TD SCH ×2 (03:40→20:26)
[2019-06-26] MEDS: OXYCODONE HCL IR 5 MG TAB (IMMEDIATE RELEASE) PO PRN (05:20)
[2019-06-26 06:59] LABS: Albumin Level 2.2 gm/dl (3.4-5.0); BUN Creatinine Ratio 16.2 (10-20); Calcium 6.7 mg/dl (8.5-10.1); Creatinine Clr Calc Pharmacy 23.6 ml/min; Est GFR (Non-African American) 15.5; Phosphorus 5.5 mg/dl (2.5-4.9); Potassium 5.5 mmol/L (3.5-5.1)
[2019-06-26] MEDS ORDERED: HYDROmorphone INJ 1 MG/ML SYRINGE ONE (07:32)
[2019-06-26] MEDS: INSULIN ASPART 100 UNITS/ML 3 ML PEN SC SCH ×4 (08:32→21:38)
[2019-06-26] MEDS: PREGABALIN 25 MG CAP PO SCH ×2 (08:32→21:43)
[2019-06-26] MEDS: CHECK FENTANYL PATCH PLACEMENT SCH ×3 (08:32→23:30)
[2019-06-26] MEDS ORDERED: NALOXONE HCL 0.4 MG/1 ML VIAL/CARP IV PRN (08:42)
[2019-06-26] MEDS ORDERED: SODIUM CHLORIDE 0.9% 1000ML 1,000 ML IV SCH (08:45)
[2019-06-26] MEDS: NICOTINE 21 MG/24 HR TDSY TD SCH (09:10)
[2019-06-26] MEDS: HYDROmorphone PCA 30 MG/30 ML IV PRN (09:40)
[2019-06-26] MEDS ORDERED: BISACODYL 10 MG SUPP PR STA (12:15)
--- NOTE | 2019-06-26 12:27 | Nephrology Consultation ---
Date of Consultation June 26, 2019 Assessment & Plan (1) Acute on chronic renal failure: Urine studies and clinical presentation consistent with a pre renal component. Skin this is likely related to decreased effective arterial volume associated with poor nutrition, hypoalbuminemia, poor oral fluid intake. Certainly patient has extensive abdominal carcinomatosis not helping. Brett status single kidney but by imaging this does not appear to be obstructed. Cannot exclude the possibility of ATN. His multiple electrolyte abnormalities. Urine output has not been well documented at this point. Coates catheter is being placed both for comfort and for accurate input and output. Will monitor metabolic profile twice daily. At this time given the patient's advanced malignancy in limited options for treatment, his prognosis is guarded. I would not expect hemodialysis to provide significant therapeutic benefit. (2) Hyponatremia: Related to renal insufficiency and poor oral solute intake. Volume status demonstrates increased total body water with decreased effective arterial volume. (3) Hx of testicular cancer: Overall, the patient's prognosis guarded. I would suggest a palliative care consultation while we continue to review overall goals of care. (4) Diabetes mellitus type 1, uncontrolled: (5) Cancer related pain: This is the primary issue at this time. Unfortunately is unable to have productive conversation with the patient this morning due to severity of his pain. Dilaudid SUPERVISOR ASSEMBLING is being started. I will evaluate again this afternoon. 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 Nephrology consultation was requested for acute on chronic renal insufficiency. Patient is known from prior admission. Unfortunately has not had regular follow-up in the Nephrology Clinic as an outpatient. He was directly admitted from the Oncology Clinic yesterday with severe abdominal pain. At the time of my evaluation this morning, patient was unable to provide much history due to the severity of his symptoms. Dilaudid SUPERVISOR ASSEMBLING has been started. 1 L of IV saline was provided overnight. Unfortunately due to increasing edema in his lower extremities and abdomen he has not tolerated fluids well. Brett has been following with Dr. Cruz as an outpatient. He was seen at [facility] in the beginning of the June for possible stem cell transplant. They are unable to get enough stem cells to proceed with this. Patient's renal function has been progressively worsening. My understanding is that Dr. Lee may be able to offer gemcitabine if the patient's condition is able to stabilize. He was scheduled for paracentesis on 06/23/2019 however only limited amount of ascites is present and a safe approach was not felt to be present so exam was aborted. There was noted to be extensive carcinomatosis causing the bulk of abdominal distention. Laboratory studies have shown progressive worsening of kidney function. This is accompanied by laboratory abnormalities including hyponatremia and hyperkalemia. Allergies Allergy/AdvReac Type Severity Reaction Status Date / Time No Known Allergies Allergy Verified 06/23/19 08:36 Home Medications Home Medications Medication Instructions Recorded Confirmed Type insulin lispro [Admelog SoloStar See Rx Instructions .ROUTE .COMPLEX 07/25/18 06/25/19 History U-100 Insulin] ondansetron HCl [Zofran] 4 mg PO Q6H PRN #30 tab 11/18/18 06/25/19 Rx insulin degludec (U-100) 100 16 units SUBCUT QPM ml 02/25/19 06/25/19 History unit/mL (3 mL) subcutaneous pen pregabalin 50 mg capsule 50 mg PO BID cap 02/25/19 06/25/19 History glucagon HCl 1 mg solution for 1 mg .ROUTE .COMPLEX #2 ea 04/02/19 06/25/19 History injection oxycodone 5 mg tablet 15 mg PO Q6H PRN tab 04/03/19 06/25/19 History fentanyl 1 patch TRANSDERMAL Q72H 06/23/19 06/25/19 History zolpidem [Ambien] 10 mg PO HS PRN 06/23/19 06/25/19 History Patient History Medical History Anxiety (Chronic) Attention deficit hyperactivity disorder (Chronic) Diabetes mellitus type 1, uncontrolled (Chronic) S/p nephrectomy left - 2018; [facility] Polysubstance abuse (Chronic) Elevated LFTs Herpes zoster right forehead Anemia due to antineoplastic chemotherapy Tobacco use (Chronic) Mood disorder (Chronic) Avascular necrosis of bone of left hip CKD (chronic kidney disease), stage II Type I diabetes mellitus (Chronic) Testicular cancer (Chronic) Cancer related pain Metastatic cancer to brain (Chronic) Seizure (Acute) Depression Chronic pain syndrome Severe protein-calorie malnutrition (Chronic) Neuropathy (Acute) Teratoma of pelvis Surgical History History of nephrectomy History of orchiectomy History of repair of left hip joint Family History Grandfather Myocardial infarction Other Cancer Social History Preferred Language: Ukrainian Communication Ability: Effective Fire Sprinkler Fitter Required: No Beliefs That Will Affect Care: None marital status: Single Current Living Situation: Family Current Living Situation Comment: parents and fiancee current occupational status: previously employed Other Information That Helps Us Care for You: No 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 Feels Safe at Home: Yes Safety Concerns: Feels Safe At This Time Smoking Status: Current every day smoker Tobacco Type: cigarettes ; Cigarettes Per Day: 2 packs a day ; Do You Dip or Chew Tobacco: No ; Second Hand Exposure: Yes ; Tobacco Cessation Education Requested by Patient: No Hx Alcohol Use: No Hx Substance Use: No Review of Systems Review of Systems: All systems reviewed & are unremarkable except as noted in HPI & below Review of systems was limited due to the patient's severe pain. Physical Exam Constitutional: + acute distress, + ill appearing and + cachectic Eyes: + conjunctival abnormality and + anicteric sclerae ENMT: Mouth: + dry oral mucous membranes; no oral mucosal abnormality Neck: normal visual inspection and trachea midline Respiratory: normal respiratory effort; no respiratory distress Auscultation: lungs clear to auscultation bilaterally Cardiovascular: Rate/Rhythm: + tachycardic Heart Sounds: normal S1 and normal S2 Vessels: + JVD Extremities: + edema Gastrointestinal (Abdomen): Inspection/Auscultation: + abdomen distended Percussion/Palpation: + abdomen tender Musculoskeletal: Extremities: no cyanosis and no clubbing Skin: no rashes and no lesions Neurologic: Motor/Sensory: no tremor and no asterixis Psychiatric: Orientation: alert and oriented x 3 Results & Data Vital Signs (Past 12 Hours) Vital Signs Temp Pulse Resp BP Pulse Ox 06/26/19 11:25 36.7 C 119 H 20 123/63 96 06/26/19 07:27 36.5 C 112 H 18 118/56 L 91 06/26/19 04:05 97 06/26/19 04:00 16 88 L 06/26/19 03:44 36.6 C 107 H 16 117/65 90 PG Care Time/CCT Total # of Minutes Spent Total Time Spent with Patient: Total time spent is greater than 50% in coordination of care (as documented) at patient's floor/unit and/or counseling patient: (1) Acute on chronic renal failure Acute renal failure type: unspecified Chronic kidney disease stage: unspecified stage Qualified Code(s): N17.9 - Acute kidney failure, unspecified; N18.9 - Chronic kidney disease, unspecified (2) Diabetes mellitus type 1, uncontrolled Glycemic state: with hyperglycemia Qualified Code(s): E10.65 - Type 1 diabetes mellitus with hyperglycemia (3) Edema Edema type: unspecified Qualified Code(s): R60.9 - Edema, unspecified
[2019-06-26] MEDS: D5W AND NSS 1,000 ML IV SCH (12:37)
--- NOTE | 2019-06-26 14:37 | Hospitalist Progress Note ---
Date of Service June 26, 2019 Assessment & Plan (1) ADRI (acute kidney injury): Likely due to prerenal causes. Cannot exclude ATN. Pt appeared intravascularly volume depleted at admission. Despite 1 L NS he had no improvement in creatinine overnight. Renal u/s without apparent obstruction of his solitary kidney. Appreciate Dr French's consultation. Will speak with Dr French and Dr Cruz about over-arching plan of care given his poor prognosis. At minimum repeat BMP am. Molina to be placed today for comfort and for more accurate UOP. (2) Acute on chronic renal failure: Baseline CKD stage 3. Then developed worsening renal function in the last 6 weeks. See above in ADRI. (3) Hyponatremia: 2nd to solute depletion from poor intake (Urine Na <10) and also ADRI. Follow w/ BMPs. No response with IV fluids. (4) Hx of testicular cancer: Stage 4 with extensive metastatic disease. Known mets to brain. Extensive carcinomatosis. Will speak with Dr Cruz about his care. Will also speak with palliative care in light of severe abd pain, progressive disease, poor prognosis, etc. (5) Attention deficit hyperactivity disorder: (6) Diabetes mellitus type 1, uncontrolled: Patient hypoglycemic with lantus 8 units. VERY poor appetite. Adding dextrose to fluids (15cc/hr) to maintain euglycemia. To prevent DKA consider 4-6 units lantus daily (or less perhaps). (7) Tobacco use: Nicoderm (8) Cancer related pain: Fentanyl patch increased to 50mcg overnight. Has had copious prn IV dilaudid without relief of abdominal pain. 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 Adjust as needed. Has severe constipation - no BM in 6 days - this could be contributing to pain as well. Dulcolax suppos x 1. Consult palliative care. (9) Metastatic cancer to brain: noted (10) Severe protein-calorie malnutrition: 2nd to testicular cancer ongoing (11) Edema: had dopplers at [facility] last week - negative to his recollection will not repeat dopplers 2nd to hypoalbuminemia, likely has IVC compression from carcinomatosis, etc (12) Constipation: narcotic related dulcolax suppos x 1 then bowel regimen with senna/miralax or dulcolax/miralax (13) DVT prophylaxis: add heparin 5000 BID Subjective tele - sinus tach overnight had severe abdominal pain much of the night requiring escalating doses of IV dilaudid last bowel movement - 5-6 days ago had mild shortness of breath late this am -- O2 applied patient still voiding on his own but not opposed to molina catheter no new areas of pain at conclusion of my visit his fiance came to bedside had multiple questions Review of Systems Constitutional: no fever Respiratory: + dyspnea; no cough Cardiovascular: no chest pain Gastrointestinal: + abdominal pain and + constipation; no nausea and no vomiting Physical Exam Constitutional: + acute distress (due to pain), + ill appearing and + cachecti c; no altered mental status ENMT: Mouth: + dry oral mucous membranes Respiratory: no respiratory distress Auscultation: lungs clear to auscultation bilaterally and + diminished lung sounds (bases) Cardiovascular: Rate/Rhythm: regular rhythm and + tachycardic Heart Sounds: normal S1 and normal S2; no murmur Vessels: posterior tibial pulses present and dorsalis pedis pulses present; no JVD Extremities: + edema (severe, 2-3+ b/l, to the thighs) Gastrointestinal (Abdomen): Inspection/Auscultation: + abdomen distended (severe) and normal bowel sounds Percussion/Palpation: + abdomen tender (diffuse); no hepatosplenomegaly Psychiatric: Orientation: alert (a little sleepy but could answer questions) and oriented x 3 Results & Data Vital Signs (Past 12 Hours) Vital Signs Temp Pulse Pulse Resp BP Pulse Ox 06/26/19 11:25 36.7 C 119 H 20 123/63 96 06/26/19 08:00 109 H 06/26/19 07:27 36.5 C 112 H 18 118/56 L 91 06/26/19 04:05 97 06/26/19 04:00 16 88 L 06/26/19 03:44 36.6 C 107 H 16 117/65 90 Laboratory Results Laboratory Results - last 24 hr 06/25/19 06/25/19 06/25/19 16:38 19:40 19:40 Sodium Potassium Chloride Carbon Dioxide Anion Gap BUN Creatinine Est Cr Clr Drug Dosing Est GFR ( Amer) Est GFR (Non-Af Amer) BUN/Creatinine Ratio Glucose POC Glucose 179 H Calcium Phosphorus Albumin Urine Color Yellow Urine Appearance Cloudy A Urine pH 5.0 Ur Specific [place] 1.025 Urine Protein 2+ H Urine Glucose (UA) Negative Urine Ketones Negative Urine Blood Trace H Urine Nitrite Negative Urine Bilirubin Negative Urine Urobilinogen Negative Ur Leukocyte Esterase Negative Urine WBC (Auto) 10-30 H Urine RBC (Auto) 0-4 U Hyaline Cast (Auto) 1-5 U Epithel Cells (Auto) >30 H Urine Bacteria (Auto) Negative Amorphous Sediment Present A Urine Yeast Not Reportable Urine Osmolality 448 L Ur Random Creatinine Ur Random Sodium 06/25/19 06/25/19 06/26/19 19:40 20:25 05:56 Sodium 127 L Potassium 5.5 H Chloride 88 L Carbon Dioxide 26 Anion Gap 13.0 H BUN 75 H Creatinine 4.77 H* Est Cr Clr Drug Dosing 23.6 Est GFR ( Amer) 18.0 Est GFR (Non-Af Amer) 15.5 BUN/Creatinine Ratio 16.2 Glucose 63 L POC Glucose 167 H Calcium 6.7 L Phosphorus 5.5 H Albumin 2.2 L Urine Color Urine Appearance Urine pH Ur Specific [place] Urine Protein Urine Glucose (UA) Urine Ketones Urine Blood Urine Nitrite Urine Bilirubin Urine Urobilinogen Ur Leukocyte Esterase Urine WBC (Auto) Urine RBC (Auto) U Hyaline Cast (Auto) U Epithel Cells (Auto) Urine Bacteria (Auto) Amorphous Sediment Urine Yeast Urine Osmolality Ur Random Creatinine 144.0 Ur Random Sodium 7 06/26/19 06/26/19 06/26/19 07:26 11:32 11:48 Sodium Potassium Chloride Carbon Dioxide Anion Gap BUN Creatinine Est Cr Clr Drug Dosing Est GFR ( Amer) Est GFR (Non-Af Amer) BUN/Creatinine Ratio Glucose POC Glucose 77 54 L* 46 L* Calcium Phosphorus Albumin Urine Color Urine Appearance Urine pH Ur Specific [place] Urine Protein Urine Glucose (UA) Urine Ketones Urine Blood Urine Nitrite Urine Bilirubin Urine Urobilinogen Ur Leukocyte Esterase Urine WBC (Auto) Urine RBC (Auto) U Hyaline Cast (Auto) U Epithel Cells (Auto) Urine Bacteria (Auto) Amorphous Sediment Urine Yeast Urine Osmolality Ur Random Creatinine Ur Random Sodium 06/26/19 12:06 Sodium Potassium Chloride Carbon Dioxide Anion Gap BUN Creatinine Est Cr Clr Drug Dosing Est GFR ( Amer) Est GFR (Non-Af Amer) BUN/Creatinine Ratio Glucose POC Glucose 130 H Calcium Phosphorus Albumin Urine Color Urine Appearance Urine pH Ur Specific [place] Urine Protein Urine Glucose (UA) Urine Ketones Urine Blood Urine Nitrite Urine Bilirubin Urine Urobilinogen Ur Leukocyte Esterase Urine WBC (Auto) Urine RBC (Auto) U Hyaline Cast (Auto) U Epithel Cells (Auto) Urine Bacteria (Auto) Amorphous Sediment Urine Yeast Urine Osmolality Ur Random Creatinine Ur Random Sodium PG Care Time/CCT Total # of Minutes Spent Total Time Spent with Patient: Total time spent is greater than 50% in coordination of care (as documented) at patient's floor/unit and/or counseling patient: (1) Acute on chronic renal failure Acute renal failure type: unspecified Chronic kidney disease stage: unspecified stage Qualified Code(s): N17.9 - Acute kidney failure, unspecified; N18.9 - Chronic kidney disease, unspecified (2) Attention deficit hyperactivity disorder Attention deficit-hyperactivity disorder type: unspecified Qualified Code(s): F90.9 - Attention-deficit hyperactivity disorder, unspecified type (3) Diabetes mellitus type 1, uncontrolled Glycemic state: with hyperglycemia Qualified Code(s): E10.65 - Type 1 diabetes mellitus with hyperglycemia (4) Edema Edema type: unspecified Qualified Code(s): R60.9 - Edema, unspecified (5) Constipation Constipation type: drug induced constipation Qualified Code(s): K59.03 - Drug induced constipation
--- NOTE | 2019-06-26 17:37 | Palliative Care Consultation ---
Date of Consultation June 26, 2019 Assessment & Plan (1) Goals of care, counseling/discussion: Patient ann at bedside. Patient is well-known to the palliative care service over the past year. 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 In September of this year patient was also found to have brain mets-status post XRT and receiving salvage chemo with plans for stem cell transplant. Patient went for stem cell harvest earlier this month. Patient presents to the emergency room on 06/25 with increasing abdominal pain and worsening renal failure. Patient required a Dilaudid CERTIFIED APPLIANCE SERVICE TECHNICIAN for pain control. Myself and GRAHAM Valladares present for multiple discussions with Dr. Cruz from oncology, Dr. Sousa- his attending physician, as well as Dr. Jurado from nephrology. Patient with poor functional status, markedly distended abdomen and pitting lower extremity edema. Patient was to undergo paracentesis on 06/23-limited ascites present, tap was not performed. On admission patient's creatinine was 4.59-up from his prior baseline of 1.62.0. Patient received 1 L of normal saline-repeat creatinine 4.77. Patient's albumin is 2.2. Patient underwent renal sonogram-absent left kidney, no hydronephrosis on the right, small amount of ascites. Patient's pain is currently controlled with Dilaudid CERTIFIED APPLIANCE SERVICE TECHNICIAN-patient and flacoanc with multiple conversations regarding goals of care. Patient somewhat undecided as far as his goals-1 visit stating he was interested in hospice and comfort care, separate visit stating he wants everything done including dialysis. Continued conversations with Dr. Jurado-his prognosis is poor even with temporizing dialysis. Goal would be to see if his kidneys can recover on their own and he can continue salvage chemo. It was discussed with patient that if his kidney function would continue to decline over the weekend that transferring to a tertiary care facility would not likely change his care. Nephrology plans to follow the patient over the weekend with further decisions to be made on Saturday. If patient would deteriorate he is agreeable to a DO NOT RESUSCITATE-we will change his CODE STATUS to reflect such. If his renal function would improve, patient could receive salvage chemo. Patient's mother arrived towards the end of the visit-Dr. Sousa and Dr. Jurado will update her regarding his current condition and prognosis. -CODE STATUS-patient agreeable to DNR if his condition will continue to deteriorate-we will continue current treatment -Goals of care-patient's main concern is remaining comfortable with good pain control, is hopeful that kidneys will improve and he can receive further salvage chemo -Testicular ettubx-ikrvahloxj-gojju mets as well as extensive carcinomatosis- poor prognosis -Metastatic cancer to brain-status post XRT -Abdominal carcinomatosis-severe carcinomatosis, small amount of ascites, abdomen extensively distended -Acute on chronic kidney injury, prior baseline creatinine 1.62.0, creatinine now 4.77 despite IV hydration. Will continue to follow and assist patient with medical decision making, appreciate input from oncology and nephrology. (2) Testicular cancer: Descendance of testis: descended Laterality: left Qualified Code(s): C62.12 - Malignant neoplasm of descended left testis (3) Metastatic cancer to brain: (4) Abdominal carcinomatosis: (5) ADRI (acute kidney injury): History of Present Illness Reason for Consultation: Address CODE STATUS as well as goals of care Requesting Physician: dR Sousa Attending Physician: Reji Poole History of Present Illness Patient fianc at bedside. Patient is well-known to the palliative care service over the past year. 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 In September of this year patient was also found to have brain mets-status post XRT and receiving salvage chemo with plans for stem cell transplant. Patient went for stem cell harvest earlier this month. Patient presents to the emergency room on 06/25 with increasing abdominal pain and worsening renal failure. Patient required a Dilaudid CERTIFIED APPLIANCE SERVICE TECHNICIAN for pain control. Myself and GRAHAM Valladares present for multiple discussions with Dr. Cruz from oncology, Dr. Sousa- his attending physician, as well as Dr. Jurado from nephrology. Patient with poor functional status, markedly distended abdomen and pitting lower extremity edema. Patient was to undergo paracentesis on 06/23-limited ascites present, tap was not performed. On admission patient's creatinine was 4.59-up from his prior baseline of 1.62.0. Patient received 1 L of normal saline-repeat creatinine 4.77. Patient's albumin is 2.2. Patient underwent renal sonogram-absent left kidney, no hydronephrosis on the right, small amount of ascites. Patient's pain is currently controlled with Dilaudid CERTIFIED APPLIANCE SERVICE TECHNICIAN-patient and fianc with multiple conversations regarding goals of care. Patient somewhat undecided as far as his goals-1 visit stating he was interested in hospice and comfort care, separate visit stating he wants everything done including dialysis. Continued conversations with Dr. Jurado-his prognosis is poor even with temporizing dialysis. Goal would be to see if his kidneys can recover on their own and he can continue salvage chemo. It was discussed with patient that if his kidney function would continue to decline over the weekend that transferring to a tertiary care facility would not likely change his care. Nephrology plans to follow the patient over the weekend with further decisions to be made on Saturday. If patient would deteriorate he is agreeable to a DO NOT RESUSCITATE-we will change his CODE STATUS to reflect such. If his renal function would improve, patient could receive salvage chemo. Patient's mother arrived towards the end of the visit-Dr. Sousa and Dr. Jurado will update her regarding his current condition and prognosis. Allergies Allergy/AdvReac Type Severity Reaction Status Date / Time No Known Allergies Allergy Verified 06/23/19 08:36 Home Medications Home Medications Medication Instructions Recorded Confirmed Type insulin lispro [Admelog SoloStar See Rx Instructions .ROUTE .COMPLEX 07/25/18 06/25/19 History U-100 Insulin] ondansetron HCl [Zofran] 4 mg PO Q6H PRN #30 tab 11/18/18 06/25/19 Rx insulin degludec (U-100) 100 16 units SUBCUT QPM ml 02/25/19 06/25/19 History unit/mL (3 mL) subcutaneous pen pregabalin 50 mg capsule 50 mg PO BID cap 02/25/19 06/25/19 History glucagon HCl 1 mg solution for 1 mg .ROUTE .COMPLEX #2 ea 04/02/19 06/25/19 History injection oxycodone 5 mg tablet 15 mg PO Q6H PRN tab 04/03/19 06/25/19 History fentanyl 1 patch TRANSDERMAL Q72H 06/23/19 06/25/19 History zolpidem [Ambien] 10 mg PO HS PRN 06/23/19 06/25/19 History Patient History Medical History Anxiety (Chronic) Attention deficit hyperactivity disorder (Chronic) Diabetes mellitus type 1, uncontrolled (Chronic) S/p nephrectomy left - 2017; [facility] Polysubstance abuse (Chronic) Elevated LFTs Herpes zoster right forehead Anemia due to antineoplastic chemotherapy Tobacco use (Chronic) Mood disorder (Chronic) Avascular necrosis of bone of left hip CKD (chronic kidney disease), stage II Type I diabetes mellitus (Chronic) Testicular cancer (Chronic) Cancer related pain Metastatic cancer to brain (Chronic) Seizure (Acute) Depression Chronic pain syndrome Severe protein-calorie malnutrition (Chronic) Neuropathy (Acute) Teratoma of pelvis Surgical History History of nephrectomy History of orchiectomy History of repair of left hip joint Family History Grandfather Myocardial infarction Other Cancer Social History Preferred Language: Syriac Communication Ability: Effective Plug Wirer Required: No Beliefs That Will Affect Care: None marital status: Single Current Living Situation: Family Current Living Situation Comment: parents and fiancee current occupational status: previously employed Other Information That Helps Us Care for You: No 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 Feels Safe at Home: Yes Safety Concerns: Feels Safe At This Time Smoking Status: Current every day smoker Tobacco Type: cigarettes ; Cigarettes Per Day: 2 packs a day ; Do You Dip or Chew Tobacco: No ; Second Hand Exposure: Yes ; Tobacco Cessation Education Requested by Patient: No Hx Alcohol Use: No Hx Substance Use: No Review of Systems Review of Systems: Pain is currently well controlled-patient reports he is comfortable on CERTIFIED APPLIANCE SERVICE TECHNICIAN Dilaudid Patient denies shortness of breath, fever or chills Patient with markedly extended abdomen and abdominal discomfort due to extensive carcinomatosis Increased lower extremity edema Physical Exam Physical Exam: Patient appears comfortable, alert, able to participate in conversation HEENT: EOMI, hearing within normal limits Respirations: Unlabored, on O2 at 3 L CV: Tachycardic Abdomen: Markedly distended-tender Extremities: 3+ pitting edema Neuro alert and oriented Results & Data Vital Signs (Past 12 Hours) Vital Signs Temp Pulse Pulse Resp BP Pulse Ox 06/26/19 16:07 116 H 06/26/19 15:23 97.9 F 96 H 20 121/73 95 06/26/19 11:25 98.1 F 119 H 20 123/63 96 06/26/19 08:00 109 H 06/26/19 07:27 97.7 F 112 H 18 118/56 L 91 PG Care Time/CCT Total # of Minutes Spent Total Time Spent with Patient: Total time spent is greater than 50% in coordination of care (as documented) at patient's floor/unit and/or counseling patient: Prolonged Care Time Prolonged Care Time: Yes Total Prolonged Care Time: 30 Critical Care Time Prolonged Care Time Prolonged Care Time: Yes Total Prolonged Care Time: 30 100 Time Spent Attending Total time spent 100 minutes with greater than 50% of time spent at bedside discussing CODE STATUS, goals of care as well as treatment options with patient and fianc
[2019-06-27] MEDS: OXYCODONE HCL IR 5 MG TAB (IMMEDIATE RELEASE) PO PRN ×2 (00:19→20:07)
[2019-06-27] MEDS ORDERED: LORazepam 0.5 MG/1 ML VIAL IV STA (01:42)
[2019-06-27] MEDS ORDERED: LORazepam 2 MG/4 ML VIAL ONE (01:44)
[2019-06-27 05:54] LABS: Hematocrit (blood only) 23.5 % (42-52); Hemoglobin 7.4 g/dL (14.0-18.0); Mean Corpuscular Hemoglobin 28.9 pg (25-34); Mean Corpuscular Hgb Conc 31.5 g/dL (32-36); Mean Corpuscular Volume 91.8 fL (80-100); Platelet Count 197 K/uL (130-400); RDW Coefficient of Variation 17.4 % (11.5-14.5); RDW Standard Deviation 57.2 fL (36.4-46.3); Red Blood Count 2.56 M/uL (4.7-6.1); White Blood Count 13.82 K/uL (4.8-10.8)
[2019-06-27 06:40] LABS: BUN Creatinine Ratio 15.3 (10-20); Calcium 6.7 mg/dl (8.5-10.1); Creatinine Clr Calc Pharmacy 25.4 ml/min; Est GFR (African American) 18.1; Est GFR (Non-African American) 15.6; Potassium 5.5 mmol/L (3.5-5.1)
[2019-06-27] MEDS ORDERED: LORazepam 0.5 MG TAB PO STA (07:59)
[2019-06-27] MEDS: PREGABALIN 25 MG CAP PO SCH ×2 (08:09→19:51)
[2019-06-27] MEDS: NICOTINE 21 MG/24 HR TDSY TD SCH (08:09)
[2019-06-27] MEDS: INSULIN ASPART 100 UNITS/ML 3 ML PEN SC SCH ×4 (08:10→20:08)
[2019-06-27] MEDS: HEPARIN SOD 5,000 UNIT/0.5 ML VIAL SQ SCH ×2 (08:10→19:51)
[2019-06-27] MEDS: CHECK FENTANYL PATCH PLACEMENT SCH ×2 (08:13→17:01)
--- NOTE | 2019-06-27 08:43 | Hospitalist Progress Note ---
Date of Service June 27, 2019 Assessment & Plan (1) ADRI (acute kidney injury): Patient currently on very slow fluids, will increase and monitor renal function. Unfortunately, the patient is likely to third space most of his fluid secondary to hypoalbuminemia, will need to monitor for signs of pulmonary edema. I do see nephrology is following along, discussing hemodialysis with patient. I do agree with their conclusions that aggressive treatment is unlikely to significantly impact his overall prognosis. (2) Acute on chronic renal failure: Baseline CKD stage 3. Then developed worsening renal function in the last 6 weeks. See above in ADRI. (3) Hyponatremia: 2nd to solute depletion from poor intake (Urine Na <10) and also ADRI. Follow w/ BMPs. No response with IV fluids. (4) Hx of testicular cancer: Stage 4 with extensive metastatic disease. Known mets to brain. Extensive carcinomatosis. Patient is being followed by palliative care, currently on a Dilaudid VP & GENERAL COUNSEL. Hopefully will decide to transition to hospice care in the next few days depending on progress. Continue pain management as ordered for now. We will add low-dose Ativan p.o. for anxiety. (5) Attention deficit hyperactivity disorder: We will continue Adderall (6) Diabetes mellitus type 1, uncontrolled: Hypoglycemia seems to be improved blood sugar was 110 this morning. He has had hypoglycemia in the past few days. (7) Tobacco use: Nicoderm (8) Cancer related pain: Continue VP & GENERAL COUNSEL Dilaudid along with fentanyl patch. Further recommendations per palliative care service. (9) Metastatic cancer to brain: noted (10) Severe protein-calorie malnutrition: 2nd to testicular cancer ongoing (11) Edema: had dopplers at [facility] last week - negative to his recollection will not repeat dopplers 2nd to hypoalbuminemia, likely has IVC compression from carcinomatosis, etc (12) Constipation: narcotic related dulcolax suppos x 1 then bowel regimen with senna/miralax or dulcolax/miralax (13) DVT prophylaxis: add heparin 5000 BID Subjective Patient admits to some anxiety, had a dose of Ativan 0.5 mg p.o. this morning which did help. Continues to have significant pain and is on a Dilaudid VP & GENERAL COUNSEL. Feels this is effective and is using it actively to bolus himself. Chart reviewed, likely progression to hospice care in the next few days. Working with nephrology to consider hemodialysis. Renal function does not appear to have changed significantly overnight. Review of Systems Review of Systems: All systems reviewed & are unremarkable except as noted in HPI & below Physical Exam Physical Exam: GENERAL: Significantly cachectic with temporal wasting, nonjaundiced INTEGUMENTARY: Warm, dry, and [place]. HEAD: Normocephalic. EYES: without scleral icterus or trauma. ENT/OROPHARYNX: clear and moist. LYMPHADENOPATHY/NECK: Is supple without lymphadenopathy or meningismus. RESPIRATORY: Lungs clear and equal. CARDIOVASCULAR: Regular rate and rhythm. GI/ABDOMEN: Significantly distended and firm. Minimal diffuse tenderness without guarding or rebound. Diminished bowel sounds. EXTREMITIES: 23+ pitting edema bilaterally BACK: No CVA tenderness. NEUROLOGICAL: Intact without focal deficits. PSYCHIATRIC: normal affect. MUSCULOSKELETAL: Generalized atrophy. Results & Data Vital Signs (Past 12 Hours) Vital Signs Temp Pulse Pulse Resp BP Pulse Ox 06/27/19 07:15 36.6 C 112 H 16 117/59 L 97 06/27/19 03:41 36.6 C 129 H 15 111/71 95 06/26/19 23:15 36.5 C 115 H 16 118/68 96 06/26/19 23:05 109 H PG Care Time/CCT Total # of Minutes Spent Total Time Spent with Patient: Total time spent is greater than 50% in coordination of care (as documented) at patient's floor/unit and/or counseling patient: (1) Acute on chronic renal failure Acute renal failure type: unspecified Chronic kidney disease stage: uns pecified stage Qualified Code(s): N17.9 - Acute kidney failure, unspecified; N18.9 - Chronic kidney disease, unspecified (2) Attention deficit hyperactivity disorder Attention deficit-hyperactivity disorder type: unspecified Qualified Code(s): F90.9 - Attention-deficit hyperactivity disorder, unspecified type (3) Diabetes mellitus type 1, uncontrolled Glycemic state: with hyperglycemia Qualified Code(s): E10.65 - Type 1 diabetes mellitus with hyperglycemia (4) Edema Edema type: unspecified Qualified Code(s): R60.9 - Edema, unspecified (5) Constipation Constipation type: drug induced constipation Qualified Code(s): K59.03 - Drug induced constipation
[2019-06-27] MEDS ORDERED: SODIUM CHLORIDE 0.9% 1000ML 1,000 ML IV SCH (09:00)
[2019-06-27] MEDS: D5W AND NSS 1,000 ML IV SCH (09:41)
[2019-06-27] MEDS ORDERED: D5W AND NSS 1,000 ML IV SCH (09:45)
--- NOTE | 2019-06-27 11:48 | Nephrology Progress Note ---
Date of Service June 27, 2019 Assessment & Plan (1) Acute on chronic renal failure: Kidney dysfunction remains advanced but stable. Urine output nonoliguric. Hyperkalemia persists. Again, I believe there is a prerenal component to this associated with decreased effective arterial volume. This is complicated by the patient's hypoalbuminemia, nutritional deficiencies, and advanced malignancy. He has certainly had significant 3rd spacing of fluid already. We will continue with gentle IV fluids throughout the day today. Will provide IV dextrose with a combination of half-normal saline and sodium bicarbonate. Input and output will be documented closely. Currently the patient states that his goals of care are not consistent with proceeding with hemodialysis. He hopes to see some stabilization in his numbers. He is continuing to come to terms with his prognosis. Patient is not quite ready for hospice care but did reiterate that his primary goal is to return. In the patient's current condition, I would not expect hemodialysis to provide significant therapeutic benefit. He is aware this. If there are any thoughts about proceeding with hemodialysis, I would strongly suggest he have a 2nd opinion from another foreign language professor. (2) Hyponatremia: Related to renal insufficiency and poor oral solute intake. Volume status demonstrates increased total body water with decreased effective arterial volume. (3) Hx of testicular cancer: Palliative care consultation appreciated. Prognosis guarded. After discussion with oncology yesterday, suggestion was made that the patient may be a candidate for gemcitabine as a palliative therapy if his condition were to stabilize. (4) Diabetes mellitus type 1, uncontrolled: (5) Cancer related pain: Seems to be reasonably controlled at this time on the Dilaudid COOKER MECHANIC. (6) Severe protein-calorie malnutrition: Will order boost supplementation while patient is here. (7) Edema: Subjective There were no acute events overnight. Brett was seen and evaluated with his at the bedside. Pain control has significantly improved. He was able to have bowel movement this morning. He denies any dyspnea. He denies shortness of breath. Urinary catheter was removed. Patient has no urinary complaints. Today, patient stated these re-evaluating his overall goals of care. His primary goal is to maintain quality of life with remaining time he has left. States that he is not interested in hemodialysis this time. He would like me to discuss his status with his father this afternoon. Review of Systems Review of Systems: All systems reviewed & are unremarkable except as noted in HPI & below Physical Exam Constitutional: + ill appearing and + cachectic; no acute distress Eyes: + anicteric sclerae; no conjunctival abnormality ENMT: Mouth: + dry oral mucous membranes; no oral mucosal abnormality Neck: normal visual inspection and trachea midline Respiratory: normal respiratory effort; no respiratory distress Auscultation: lungs clear to auscultation bilaterally Cardiovascular: Rate/Rhythm: + tachycardic Heart Sounds: normal S1 and normal S2 Vessels: + JVD Extremities: + edema Gastrointestinal (Abdomen): Inspection/Auscultation: + abdomen distended Percussion/Palpation: no guarding Musculoskeletal: Extremities: no cyanosis and no clubbing Skin: no rashes and no lesions Neurologic: Motor/Sensory: no tremor and no asterixis Psychiatric: Orientation: alert and oriented x 3 Results & Data Vital Signs (Past 12 Hours) Vital Signs Temp Pulse Pulse Resp BP Pulse Ox 06/27/19 08:00 117 H 06/27/19 07:15 36.6 C 112 H 16 117/59 L 97 06/27/19 03:41 36.6 C 129 H 15 111/71 95 Laboratory Results Laboratory Results - last 24 hr 06/26/19 06/26/19 06/26/19 11:32 11:48 12:06 WBC RBC Hgb Hct MCV MCH MCHC RDW Std Deviation RDW Coeff of Zuleima Plt Count MPV Sodium Potassium Chloride Carbon Dioxide Anion Gap BUN Creatinine Est Cr Clr Drug Dosing Est GFR ( Amer) Est GFR (Non-Af Amer) BUN/Creatinine Ratio Glucose POC Glucose 54 L* 46 L* 130 H Calcium 06/26/19 06/26/19 06/27/19 16:03 20:50 05:34 WBC 13.82 H RBC 2.56 L Hgb 7.4 L Hct 23.5 L MCV 91.8 MCH 28.9 MCHC 31.5 L RDW Std Deviation 57.2 H RDW Coeff of Zuleima 17.4 H Plt Count 197 MPV 9.0 Sodium Potassium Chloride Carbon Dioxide Anion Gap BUN Creatinine Est Cr Clr Drug Dosing Est GFR ( Amer) Est GFR (Non-Af Amer) BUN/Creatinine Ratio Glucose POC Glucose 82 88 Calcium 06/27/19 06/27/19 05:34 07:15 WBC RBC Hgb Hct MCV MCH MCHC RDW Std Deviation RDW Coeff of Zuleima Plt Count MPV Sodium 126 L Potassium 5.5 H Chloride 89 L Carbon Dioxide 26 Anion Gap 11.0 BUN 73 H Creatinine 4.74 H* Est Cr Clr Drug Dosing 25.4 Est GFR ( Amer) 18.1 Est GFR (Non-Af Amer) 15.6 BUN/Creatinine Ratio 15.3 Glucose 85 POC Glucose 110 H Calcium 6.7 L PG Care Time/CCT Total # of Minutes Spent Total Time Spent with Patient: Total time spent is greater than 50% in coordination of care (as documented) at patient's floor/unit and/or counseling patient: (1) Acute on chronic renal failure Acute renal failure type: unspecified Chronic kidney disease stage: unspecified stage Qualified Code(s): N17.9 - Acute kidney failure, unspecified; N18.9 - Chronic kidney disease, unspecified (2) Diabetes mellitus type 1, uncontrolled Glycemic state: with hyperglycemia Qualified Code(s): E10.65 - Type 1 diabetes mellitus with hyperglycemia (3) Edema Edema type: unspecified Qualified Code(s): R60.9 - Edema, unspecified
[2019-06-27] MEDS: SODIUM BICARBONATE IV SCH (12:22)
[2019-06-27] MEDS: D5W IV SCH (12:22)
[2019-06-27] MEDS: [UNRECOGNIZED DRUG - OTHER] IV SCH (12:22)
[2019-06-27] MEDS: LORazepam 0.5 MG TAB PO PRN ×2 (13:37→19:51)
[2019-06-27] MEDS ORDERED: DOCUSATE SODIUM 100 MG CAP PO PRN (22:03)
[2019-06-27] MEDS ORDERED: POLYETHYLENE (MIRALAX) 17 GM PACK PO PRN (22:03)
[2019-06-27] MEDS ORDERED: POLYETHYLENE (MIRALAX) 17 GM PACK ONE (22:22)
[2019-06-27] MEDS ORDERED: DOCUSATE SODIUM 100 MG CAP ONE (22:22)
[2019-06-27] MEDS: ZOLPIDEM TARTRATE 10 MG TAB PO PRN (22:49)
[2019-06-27] MEDS: HYDROmorphone INJ 0.5 MG/0.5 ML SYR IV PRN (22:49)
[2019-06-28] MEDS: CHECK FENTANYL PATCH PLACEMENT SCH ×4 (00:15→23:14)
[2019-06-28] MEDS: D5W IV SCH (01:38)
[2019-06-28] MEDS: SODIUM BICARBONATE IV SCH (01:38)
[2019-06-28] MEDS: LORazepam 0.5 MG TAB PO PRN ×3 (01:38→18:14)
[2019-06-28] MEDS: [UNRECOGNIZED DRUG - OTHER] IV SCH (01:38)
[2019-06-28] MEDS ORDERED: HYDROmorphone INJ 1 MG/ML SYRINGE IV STA (02:41)
[2019-06-28 05:31] LABS: Hematocrit (blood only) 23.5 % (42-52); Hemoglobin 7.6 g/dL (14.0-18.0); Mean Corpuscular Hemoglobin 29.8 pg (25-34); Mean Corpuscular Hgb Conc 32.3 g/dL (32-36); Mean Corpuscular Volume 92.2 fL (80-100); Mean Platelet Volume 9.1 fL (7.4-10.4); Platelet Count 200 K/uL (130-400); RDW Coefficient of Variation 17.3 % (11.5-14.5); RDW Standard Deviation 57.4 fL (36.4-46.3); Red Blood Count 2.55 M/uL (4.7-6.1); White Blood Count 11.37 K/uL (4.8-10.8)
[2019-06-28 06:00] LABS: Basophilic Stippling 1+; Immature Granulocytes # (auto) 0.11 K/uL (0.00-0.02); Lymphocytes # (auto) 0.23 K/uL (1.2-3.4); Monocytes # (auto) 0.24 K/uL (0.11-0.59); Monocytes % (auto) 2.1 %; Neutrophils # (auto) 10.79 K/uL (1.4-6.5); Neutrophils % (auto) 94.9 %
[2019-06-28 06:27] LABS: Albumin Globulin Ratio 0.6 (0.9-2); Albumin Level 2.2 gm/dl (3.4-5.0); BUN Creatinine Ratio 17.3 (10-20); Bilirubin,Total 0.4 mg/dl (0.2-1); Calcium 6.8 mg/dl (8.5-10.1); Creatinine Clr Calc Pharmacy 26.1 ml/min; Est GFR (African American) 18.5; Est GFR (Non-African American) 15.9; Ferritin 1826.8 ng/ml (8-388); Globulin 3.6 gm/dl (2.5-4.0); Magnesium 2.4 mg/dl (1.8-2.4); Phosphorus 5.9 mg/dl (2.5-4.9); Potassium 5.8 mmol/L (3.5-5.1); Total Protein 5.8 gm/dl (6.4-8.2)
[2019-06-28 06:38] LABS: Beta-Hydroxybutyrate 10.13 mg/dl (0.2-2.81)
[2019-06-28] MEDS ORDERED: Nursing to Pharmacy Communication ONE ×3 (07:47→15:11)
[2019-06-28] MEDS: HEPARIN SOD 5,000 UNIT/0.5 ML VIAL SQ SCH ×2 (08:01→21:40)
[2019-06-28] MEDS: PREGABALIN 25 MG CAP PO SCH ×2 (08:01→21:40)
[2019-06-28] MEDS: NICOTINE 21 MG/24 HR TDSY TD SCH (08:02)
[2019-06-28] MEDS: INSULIN ASPART 100 UNITS/ML 3 ML PEN SC SCH ×4 (08:02→21:41)
[2019-06-28] MEDS: DOCUSATE SODIUM/SENNA 50/8.6MG TAB PO SCH (08:02)
[2019-06-28] MEDS: SODIUM BICARBONATE 8.4% 75 MEQ in SODIUM CHLORIDE 0.45 % 1,000 ML IV SCH ×2 (08:32→22:44)
--- NOTE | 2019-06-28 08:49 | Hospitalist Progress Note ---
Date of Service June 28, 2019 Assessment & Plan (1) ADRI (acute kidney injury): Patient currently on very slow fluids, will increase and monitor renal function. Unfortunately, the patient is likely to third space most of his fluid secondary to hypoalbuminemia, will need to monitor for signs of pulmonary edema. I do see nephrology is following along, discussing hemodialysis with patient. I do agree with their conclusions that aggressive treatment is unlikely to significantly impact his overall prognosis. (2) Acute on chronic renal failure: Patient's renal function is not improved with fluids. He is currently on half-normal saline with bicarb per nephrology. I did remove the dextrose secondary to hyperglycemia but this can be added to patient's diet changes and becomes hypoglycemic again. There is discussion regarding hemodialysis but I agree with special service that this will likely not improve patient's overall poor prognosis. (3) Hyponatremia: This is remained stable with her normal saline. I did of the patient's potassium is elevated at 5.8 today. We can try oral Kayexalate. This may improve with treatment of his significantly elevated blood glucose as well. We will ask for a recheck later this afternoon. (4) Hx of testicular cancer: Stage 4 with extensive metastatic disease. Known mets to brain. Extensive carcinomatosis. Patient is being followed by palliative care, currently on a Dilaudid OIL HEAT TECHNICIAN. Working with palliative care, hope to transition to hospice early next week when patient is agreeable. (5) Attention deficit hyperactivity disorder: We will continue Adderall (6) Diabetes mellitus type 1, uncontrolled: Significant hyperglycemia with IV dextrose, fluid changes noted above. (7) Tobacco use: Nicoderm (8) Cancer related pain: Continue OIL HEAT TECHNICIAN Dilaudid along with fentanyl patch. Further recommendations per palliative care service. (9) Metastatic cancer to brain: noted (10) Severe protein-calorie malnutrition: 2nd to testicular cancer ongoing (11) Edema: had dopplers at [facility] last week - negative to his recollection will not repeat dopplers 2nd to hypoalbuminemia, likely has IVC compression from carcinomatosis, etc (12) Constipation: narcotic related dulcolax suppos x 1 then bowel regimen with senna/miralax or dulcolax/miralax (13) DVT prophylaxis: add heparin 5000 BID Subjective Patient asleep but easily arousable. Patient continues to describe abdominal pain as before. The Dilaudid OIL HEAT TECHNICIAN seems to be effective. Unfortunately, patient's renal function did not improve very much with IV fluids. He was hyperglycemic this morning as he is receiving dextrose in his IV. Nursing notes that the patient's diet does seem to be a little improved which may have contributed as well. Review of Systems Review of Systems: All systems reviewed & are unremarkable except as noted in HPI & below Physical Exam Physical Exam: GENERAL: Non-toxic in appearance. Very cachectic with temporal wasting. Weak appearing. INTEGUMENTARY: Warm, dry, and [place]. HEAD: Normocephalic. EYES: without scleral icterus or trauma. ENT/OROPHARYNX: clear and moist. LYMPHADENOPATHY/NECK: Is supple without lymphadenopathy or meningismus. RESPIRATORY: Lungs clear and equal. CARDIOVASCULAR: Regular rate and rhythm. GI/ABDOMEN: Firm and significantly distended, some diffuse pain with palpation per patient but no overt guarding or rigidity. EXTREMITIES: Warm and well perfused. BACK: No CVA tenderness. NEUROLOGICAL: Intact without focal deficits. PSYCHIATRIC: normal affect. MUSCULOSKELETAL: Significant generalized atrophy Results & Data Vital Signs (Past 12 Hours) Vital Signs Temp Pulse Resp BP Pulse Ox 06/28/19 07:03 36.4 C L 114 H 16 111/62 98 06/28/19 05:14 36.4 C L 124 H 16 113/60 96 06/27/19 23:33 36.5 C 109 H 16 110/63 99 PG Care Time/CCT Total # of Minutes Spent Total Time Spent with Patient: Total time spent is greater than 50% in coordination of care (as documented) at patient's floor/unit and/or counseling patient: (1) Acute on chronic renal failure Acute renal failure type: unspecified Chronic kidney disease stage: unspecified stage Qualified Code(s): N17.9 - Acute kidney failure, unspecified; N18.9 - Chronic kidney disease, unspecified (2) Attention deficit hyperactivity disorder Attention deficit-hyperactivity disorder type: unspecified Qualified Code(s): F90.9 - Attention-deficit hyperactivity disorder, unspecified type (3) Diabetes mellitus type 1, uncontrolled Glycemic state: with hyperglycemia Qualified Code(s): E10.65 - Type 1 diabetes mellitus with hyperglycemia (4) Edema Edema type: unspecified Qualified Code(s): R60.9 - Edema, unspecified (5) Constipation Constipation type: drug induced constipation Qualified Code(s): K59.03 - Drug induced constipation
[2019-06-28] MEDS ORDERED: CALCIUM GLUCONATE 10% 2,000 MG in SODIUM CHLORIDE 0.9% 50 ML IV ONE (09:10)
[2019-06-28] MEDS ORDERED: SODIUM POLYSTYRENE SULFONATE 15G/60ML SUSP PR ONE (09:15)
[2019-06-28] MEDS ORDERED: SODIUM POLYSTYRENE SULFONATE 15G/60ML SUSP PO ONE (09:15)
[2019-06-28] MEDS: HYDROmorphone PCA 30 MG/30 ML IV PRN ×2 (10:48→15:28)
--- NOTE | 2019-06-28 11:07 | Nephrology Progress Note ---
Date of Service June 28, 2019 Assessment & Plan (1) Acute on chronic renal failure: Creatinine stable. Urine output acceptable. Patient is now refusing hemodialysis definitively. He states he plans to go home with hospice tomorrow. Laboratory studies this morning demonstrated hyperkalemia in the setting of significant hyperglycemia. Appropriate coverage with insulin is being provided. Patient was also given 1 dose of Kayexalate 15 grams this morning. He remains on an infusion half-normal saline +75 milliequivalents of sodium bicarbonate at 80 milliliters an hour. Oral intake is improved I would suggest that we stop the infusion once the current bag is complete. I provided 2 grams of IV calcium gluconate this morning. Ionized calcium was checked and found to be low consistent with the patient's renal dysfunction. Nephrology will continue to follow and provide supportive care. The patient is interested in repeating laboratory studies to see of hyperkalemia responds to Kayexalate. (2) Hyponatremia: Related to renal insufficiency and poor oral solute intake. Volume status demonstrates increased total body water with decreased effective arterial volume. (3) Hx of testicular cancer: Palliative care consultation appreciated. After discussion with the patient today, he was very clear that he plans to go home with hospice tomorrow. (4) Diabetes mellitus type 1, uncontrolled: (5) Cancer related pain: Recently controlled with fentanyl patch combined with Dilaudid SHIPPING AND RECEIVING ASSISTANT. (6) Severe protein-calorie malnutrition: (7) Edema: Subjective No acute events overnight. Brett had several bowel movements yesterday. His pain has been well controlled. He was sitting on the end of the bed this morning I evaluated. Appetite has improved slightly. Brett was very clear this morning that he plans to go home with hospice tomorrow. Review of Systems Review of Systems: All systems reviewed & are unremarkable except as noted in HPI & below Physical Exam Constitutional: + ill appearing and + cachectic; no acute distress Eyes: + anicteric sclerae; no conjunctival abnormality ENMT: Mouth: + dry oral mucous membranes; no oral mucosal abnormality Neck: normal visual inspection and trachea midline Respiratory: normal respiratory effort; no respiratory distress Auscultation: lungs clear to auscultation bilaterally Cardiovascular: Rate/Rhythm: + tachycardic Heart Sounds: normal S1 and normal S2 Vessels: + JVD Extremities: + edema Gastrointestinal (Abdomen): Inspection/Auscultation: + abdomen distended Percussion/Palpation: no guarding Musculoskeletal: Extremities: no cyanosis and no clubbing Skin: no rashes and no lesions Neurologic: Motor/Sensory: no tremor and no asterixis Psychiatric: Orientation: alert and oriented x 3 Results & Data Vital Signs (Past 12 Hours) Vital Signs Temp Pulse Pulse Resp BP Pulse Ox 06/28/19 08:00 144 H 06/28/19 07:03 36.4 C L 114 H 16 111/62 98 06/28/19 05:14 36.4 C L 124 H 16 113/60 96 06/27/19 23:33 36.5 C 109 H 16 110/63 99 Laboratory Results Laboratory Results - last 24 hr 06/27/19 06/27/19 06/27/19 11:25 16:08 20:03 WBC RBC Hgb Hct MCV MCH MCHC RDW Std Deviation RDW Coeff of Zuleima Plt Count MPV Immature Gran % (Auto) Neut % (Auto) Lymph % (Auto) Centre % (Auto) Eos % (Auto) Baso % (Auto) Immature Gran # (Auto) Neut # (Auto) Lymph # (Auto) Centre # (Auto) Eos # (Auto) Baso # (Auto) Basophilic Stippling Sodium Potassium Chloride Carbon Dioxide Anion Gap BUN Creatinine Est Cr Clr Drug Dosing Est GFR ( Amer) Est GFR (Non-Af Amer) BUN/Creatinine Ratio Glucose POC Glucose 272 H 176 H 193 H Calcium Ionized Calcium Phosphorus Magnesium Iron Transferrin Transferrin % Sat Ferritin Total Bilirubin AST ALT Alkaline Phosphatase Total Protein Albumin Globulin Albumin/Globulin Ratio Beta-Hydroxybutyric Acd 06/28/19 06/28/19 06/28/19 05:21 05:21 05:21 WBC 11.37 H RBC 2.55 L Hgb 7.6 L Hct 23.5 L MCV 92.2 MCH 29.8 MCHC 32.3 RDW Std Deviation 57.4 H RDW Coeff of Zuleima 17.3 H Plt Count 200 MPV 9.1 Immature Gran % (Auto) 1.0 Neut % (Auto) 94.9 Lymph % (Auto) 2.0 Centre % (Auto) 2.1 Eos % (Auto) 0.0 Baso % (Auto) 0.0 Immature Gran # (Auto) 0.11 H Neut # (Auto) 10.79 H Lymph # (Auto) 0.23 L Centre # (Auto) 0.24 Eos # (Auto) 0.00 Baso # (Auto) 0.00 Basophilic Stippling 1+ Sodium 126 L Potassium 5.8 H Chloride 89 L Carbon Dioxide 26 Anion Gap 11.0 BUN 80 H Creatinine 4.67 H* Est Cr Clr Drug Dosing 26.1 Est GFR ( Amer) 18.5 Est GFR (Non-Af Amer) 15.9 BUN/Creatinine Ratio 17.3 Glucose 377 H* POC Glucose Calcium 6.8 L Ionized Calcium 0.82 L Phosphorus 5.9 H Magnesium 2.4 Iron 27 L Transferrin 129 L Transferrin % Sat 15 L Ferritin 1826.8 H Total Bilirubin 0.4 AST 37 ALT 11 L Alkaline Phosphatase 166 H Total Protein 5.8 L Albumin 2.2 L Globulin 3.6 Albumin/Globulin Ratio 0.6 L Beta-Hydroxybutyric Acd 10.13 H 06/28/19 06/28/19 06/28/19 06:32 07:26 07:27 WBC RBC Hgb Hct MCV MCH MCHC RDW Std Deviation RDW Coeff of Zuleima Plt Count MPV Immature Gran % (Auto) Neut % (Auto) Lymph % (Auto) Centre % (Auto) Eos % (Auto) Baso % (Auto) Immature Gran # (Auto) Neut # (Auto) Lymph # (Auto) Centre # (Auto) Eos # (Auto) Baso # (Auto) Basophilic Stippling Sodium Potassium Chloride Carbon Dioxide Anion Gap BUN Creatinine Est Cr Clr Drug Dosing Est GFR ( Amer) Est GFR (Non-Af Amer) BUN/Creatinine Ratio Glucose POC Glucose 429 H* 451 H* 438 H* Calcium Ionized Calcium Phosphorus Magnesium Iron Transferrin Transferrin % Sat Ferritin Total Bilirubin AST ALT Alkaline Phosphatase Total Protein Albumin Globulin Albumin/Globulin Ratio Beta-Hydroxybutyric Acd PG Care Time/CCT Total # of Minutes Spent Total Time Spent with Patient: Total time spent is greater than 50% in coordination of care (as documented) at patient's floor/unit and/or counseling patient: (1) Acute on chronic renal failure Acute renal failure type: unspecified Chronic kidney disease stage: unspecified stage Qualified Code(s): N17.9 - Acute kidney failure, unspecified; N18.9 - Chronic kidney disease, unspecified (2) Diabetes mellitus type 1, uncontrolled Glycemic state: with hyperglycemia Qualified Code(s): E10.65 - Type 1 diabetes mellitus with hyperglycemia (3) Edema Edema type: unspecified Qualified Code(s): R60.9 - Edema, unspecified
[2019-06-28 14:49] LABS: BUN Creatinine Ratio 16.6 (10-20); Calcium 7.3 mg/dl (8.5-10.1); Creatinine Clr Calc Pharmacy 25.1 ml/min; Est GFR (African American) 17.6; Est GFR (Non-African American) 15.2; Potassium 5.3 mmol/L (3.5-5.1)
[2019-06-28] MEDS: OXYCODONE HCL IR 5 MG TAB (IMMEDIATE RELEASE) PO PRN (21:40)
[2019-06-29] MEDS: LORazepam 0.5 MG TAB PO PRN (02:26)
[2019-06-29 06:45] LABS: Hematocrit (blood only) 23.5 % (42-52); Hemoglobin 7.4 g/dL (14.0-18.0); Mean Corpuscular Hemoglobin 28.8 pg (25-34); Mean Corpuscular Hgb Conc 31.5 g/dL (32-36); Mean Corpuscular Volume 91.4 fL (80-100); Mean Platelet Volume 9.1 fL (7.4-10.4); Platelet Count 190 K/uL (130-400); RDW Coefficient of Variation 17.2 % (11.5-14.5); RDW Standard Deviation 56.5 fL (36.4-46.3); Red Blood Count 2.57 M/uL (4.7-6.1); White Blood Count 14.94 K/uL (4.8-10.8)
[2019-06-29 07:26] LABS: BUN Creatinine Ratio 19.1 (10-20); Creatinine Clr Calc Pharmacy 28.2 ml/min; Est GFR (African American) 20.3; Est GFR (Non-African American) 17.5; Potassium 5.2 mmol/L (3.5-5.1)
[2019-06-29 07:27] LABS: Basophilic Stippling 1+; Basophils # (auto) 0.01 K/uL (0-0.2); Basophils % (auto) 0.1 %; Immature Granulocytes # (auto) 0.11 K/uL (0.00-0.02); Immature Granulocytes % (auto) 0.7 %; Lymphocytes # (auto) 0.21 K/uL (1.2-3.4); Lymphocytes % (auto) 1.4 %; Monocytes # (auto) 0.39 K/uL (0.11-0.59); Monocytes % (auto) 2.6 %; Neutrophils # (auto) 14.22 K/uL (1.4-6.5); Neutrophils % (auto) 95.2 %
[2019-06-29] MEDS: PREGABALIN 25 MG CAP PO SCH ×2 (08:47→22:13)
[2019-06-29] MEDS: INSULIN ASPART 100 UNITS/ML 3 ML PEN SC SCH ×4 (08:47→22:09)
[2019-06-29] MEDS: NICOTINE 21 MG/24 HR TDSY TD SCH (08:47)
[2019-06-29] MEDS: DOCUSATE SODIUM/SENNA 50/8.6MG TAB PO SCH (08:48)
[2019-06-29] MEDS: HEPARIN SOD 5,000 UNIT/0.5 ML VIAL SQ SCH (08:48)
[2019-06-29] MEDS: CHECK FENTANYL PATCH PLACEMENT SCH ×2 (08:48→16:27)
--- NOTE | 2019-06-29 09:48 | Nephrology Progress Note ---
Date of Service June 29, 2019 Assessment & Plan (1) Acute on chronic renal failure: Potassium is mildly improved following Kayexelate administration. Kidney function is essentially unchanged. Patient appears emaciated and is clearly clinically failing. I have discussed plan of care with Mr. Leigh this morning. He indicates that he desires only comfort measures and wishes to return home for hospice care. I agree with his decision. I do not believe that he will have recovery of kidney function and I do not believe that dialysis will improve his clinical course. Recommend stopping further testing and consulting discharge planning to set up hospice care if not already done. Will sign off. Please call if further Nephrology assistance is needed. Subjective Mr. Leigh was seen & examined in his hospital room this morning. He reports that his pain is controlled. He does not want aggressive measures. He wishes to return home with hospice. Review of Systems Constitutional: + weakness; no fever and no chills Eyes: no worsening vision and no problem reported Ear, Nose, Mouth, Throat: no problem reported Respiratory: no cough and no dyspnea Cardiovascular: no chest pain, no palpitations and no edema Gastrointestinal: + abdominal pain; no nausea, no vomiting and no diarrhea/loose stools Genitourinary: no dysuria, no urinary hesitancy and no hematuria Integumentary: no rash Neurologic: no falls, no dizziness and no confusion Physical Exam Constitutional: + cachectic and + frail appearing Eyes: PERRL, conjunctivae normal, anicteric sclerae ENMT: external ear and nose normal, oropharynx normal Neck: trachea midline, no thyromegaly Respiratory: normal respiratory effort, lungs clear to auscultation Cardiovascular: RRR, no murmur, no edema Gastrointestinal (Abdomen): Inspection/Auscultation: + abdomen distended Percussion/Palpation: + abdomen firm Musculoskeletal: Extremities: + muscle atrophy Skin: no rashes, warm and dry Neurologic: awake Results & Data Vital Signs (Past 12 Hours) Vital Signs Temp Pulse Resp BP Pulse Ox 06/29/19 07:29 36.4 C L 128 H 18 125/71 96 06/29/19 03:45 36.5 C 129 H 16 122/73 93 06/28/19 23:20 36.5 C 130 H 16 120/70 94 Laboratory Results Laboratory Tests 06/29/19 06/29/19 06:27 06:27 WBC 14.94 H Hgb 7.4 L Hct 23.5 L Plt Count 190 Sodium 129 L Potassium 5.2 H Chloride 89 L Carbon Dioxide 27 BUN 82 H Creatinine 4.32 H D Glucose 217 H PG Care Time/CCT Total # of Minutes Spent Total Time Spent with Patient: Total time spent is greater than 50% in coordination of care (as documented) at patient's floor/unit and/or counseling patient: (1) Acute on chronic renal failure Acute renal failure type: unspecified Chronic kidney disease stage: unspecified stage Qualified Code(s): N17.9 - Acute kidney failure, unspecified; N18.9 - Chronic kidney disease, unspecified
--- NOTE | 2019-06-29 10:26 | Palliative Care Progress Note ---
Date of Service June 29, 2019 Assessment & Plan (1) Goals of care, counseling/discussion: -Met with patient and his norbert Dailey in room 205. Patient initially extremely drowsy, but did wake up more as our conversation went on. -Pain is still an issues-- lots of ups and downs and inconsistent pain control. -Long discussion about goals and plan of care. Patient confirms that he would like to go home with hospice. Focus solely on comfort and quality of life. Nasir last/WALDEMAR Dailey is supportive and in agreement. She is his primary caregiver. -Referral to [facility] to get set up. comp field case manager is working on DC plan. Attending physician updated as well. -Home with Dilaudid HYDRAULIC PRESS TENDER pump. Given patient's peaks and valleys with pain control, will order continuous rate of 0.2mg/hr, with HYDRAULIC PRESS TENDER dose of 0.4mg Q15min PRN. Patient can have a total of 1.8mg Dilaudid per hour with continuous and PRN. -Continue Lorazepam 0.5mg PO/SL Q4h PRN anxiety/agitation. -POLST form discussed and completed as follows: DNR, comfort measures only, abx with comfort as the goal, trial of IVF if indicated but NO feeding tube. -Discussed some end of life issues. IVF likely not helpful at this point given patient's low albumin level and already third-spacing legs which have started weeping. Patient wants to continue IVF while in hospital, but is in agreement that once he is home, maintenance IVF will be discontinued. He will likely get a small amount of fluid from the HYDRAULIC PRESS TENDER pump. -Patient's creatinine is mildly improved today, has been stable. No need for dialysis at this time, but it is also understood that patient is no longer wanting to pursue life prolonging measures. -Palliative will continue to follow while patient in hospital and is available for any further needs. (2) Testicular cancer: (3) Metastatic cancer to brain: (4) Abdominal carcinomatosis: (5) ADRI (acute kidney injury): Subjective -Met with patient and his norbert Dailey in room 205. Patient initially extremely drowsy, but did wake up more as our conversation went on. -Pain is still an issues-- lots of ups and downs and inconsistent pain control. -Long discussion about goals and plan of care. POLST form discussed and comple bar. Review of Systems Review of Systems: C/o weakness, drowsiness from pain medication, abdominal pain 4-8/10, abdominal fulness and LE edema. Denies SOB, chest pain or N/V. Physical Exam Constitutional: + ill appearing and + cachectic ENMT: external ear and nose normal, oropharynx normal Respiratory: normal respiratory effort Auscultation: lungs clear to auscultation bilaterally Cardiovascular: Rate/Rhythm: regular rate and regular rhythm Extremities: + edema (+4 BLE) Gastrointestinal (Abdomen): Inspection/Auscultation: + abdomen distended and + hypoactive bowel sounds Percussion/Palpation: + abdomen not soft (firm) Neurologic: moves all extremities and awake (but very drowsy at times) Psychiatric: Orientation: oriented x 3 Insight: good insight Results & Data Vital Signs (Past 12 Hours) Vital Signs Temp Pulse Pulse Resp BP Pulse Ox 06/29/19 08:00 122 H 06/29/19 07:29 36.4 C L 128 H 18 125/71 96 06/29/19 03:45 36.5 C 129 H 16 122/73 93 06/28/19 23:20 36.5 C 130 H 16 120/70 94 PG Care Time/CCT Prolonged Care Time Prolonged Care Time: Yes Total Prolonged Care Time: 65 Time Spent Midlevel 65 minutes with >50% of time spent at bedside with patient and his fiance discussing EOL issues, hospice and POLST. (1) Testicular cancer Descendance of testis: descended Laterality: left Qualified Code(s): C62.12 - Malignant neoplasm of descended left testis
[2019-06-29] MEDS: HYDROmorphone PCA 30 MG/30 ML IV PRN (10:47)
[2019-06-29] MEDS ORDERED: fentaNYL 50 MCG/HR TDSY TD SCH (11:00)
[2019-06-29] MEDS: SODIUM BICARBONATE 8.4% 75 MEQ in SODIUM CHLORIDE 0.45 % 1,000 ML IV SCH (12:07)
--- NOTE | 2019-06-29 14:22 | Hospitalist Progress Note ---
Date of Service June 29, 2019 Assessment & Plan (1) Goals of care, counseling/discussion: Stage IV metastatic testicular cancer. Goals of care discussions previously occurred with hospitalist, nephrology and palliative care team. Confirmed with patient wish is to focus on comfort care and plan to go home on hospice once dialudid AUTOMOBILE ACCESSORIES INSTALLER pump set up Continue Lorazepam 0.5mg PO/SL Q4h PRN anxiety/agitation. POLST as per palliative note (2) Acute on chronic renal failure: Continue bicarb drip while inpatient as per patient wishes but can be d/c on discharge. (3) Hyponatremia: d/c labs with view of comfort care (4) Hx of testicular cancer: Stage 4 with extensive metastatic disease. Known mets to brain. Extensive abdominal carcinomatosis. (5) Attention deficit hyperactivity disorder: Continue Adderall (6) Diabetes mellitus type 1, uncontrolled: Glycemic consult placed and discussed with pharmacy given plan for comfort care but also difficult to control glucose levels. Concern he will third space quickly if on dextrose IV therefore only to be given if glucose < 100. (7) Tobacco use: Continue nicoderm patch (8) Cancer related pain: Continue AUTOMOBILE ACCESSORIES INSTALLER Dilaudid along with fentanyl patch. Will be d/c home with hospice with same. (9) Metastatic cancer to brain: (10) Severe protein-calorie malnutrition: (11) Edema: (12) Constipation: opiate induced constipation ?small BM as inpatient but also not eating much Do not feel this should delay his discharge but suspect will need increasing bowel regimen given higher doses of opiates for pain relief. (13) DVT prophylaxis: heparin 5000 BID Subjective Patient reports pain under control now on AUTOMOBILE ACCESSORIES INSTALLER pump. Wishing to be discharged on home hospice after conversation with palliative care team and nephrology over the weekend. Reports not having a BM since coming to hospital. Passing flatus. No nausea or vomiting. Eating erratic. Review of Systems Review of Systems: All systems reviewed & are unremarkable except as noted in HPI & below Physical Exam Constitutional: + ill appearing, + cachectic and + edematous; no acute dis tress and no altered mental status Respiratory: normal respiratory effort; no respiratory distress, no labored breathing, no retractions and does not use accessory muscles Cardiovascular: Extremities: + edema (3+ b/l equal) Gastrointestinal (Abdomen): Inspection/Auscultation: + abdomen distended and + hypoactive bowel sounds Percussion/Palpation: + abdomen tender (generalized) Psychiatric: Orientation: alert and oriented x 3 Results & Data Vital Signs (Past 12 Hours) Vital Signs Temp Pulse Pulse Resp BP Pulse Ox 06/29/19 08:00 122 H 06/29/19 07:29 97.5 F L 128 H 18 125/71 96 06/29/19 03:45 97.7 F 129 H 16 122/73 93 PG Care Time/CCT Total # of Minutes Spent Total Time Spent with Patient: Total time spent is greater than 50% in coordination of care (as documented) at patient's floor/unit and/or counseling patient: (1) Edema Edema type: unspecified Qualified Code(s): R60.9 - Edema, unspecified (2) Diabetes mellitus type 1, uncontrolled Glycemic state: with hyperglycemia Qualified Code(s): E10.65 - Type 1 diabetes mellitus with hyperglycemia (3) Attention deficit hyperactivity disorder Attention deficit-hyperactivity disorder type: unspecified Qualified Code(s): F90.9 - Attention-deficit hyperactivity disorder, unspecified type (4) Acute on chronic renal failure Acute renal failure type: unspecified Chronic kidney disease stage: unspecified stage Qualified Code(s): N17.9 - Acute kidney failure, unspecified; N18.9 - Chronic kidney disease, unspecified (5) Constipation Constipation type: drug induced constipation Qualified Code(s): K59.03 - Drug induced constipation
[2019-06-29] MEDS ORDERED: PHARMACY GLYCEMIC MGMT CONSULT PRN (15:24)
[2019-06-29] MEDS ORDERED: INSULIN GLARGINE SOLOSTAR 100 UNITS/ML 3 ML PEN SC SCH (21:00)
[2019-06-29] MEDS: ZOLPIDEM TARTRATE 10 MG TAB PO PRN (22:20)
[2019-06-30] MEDS: CHECK FENTANYL PATCH PLACEMENT SCH ×2 (00:10→10:38)
[2019-06-30] MEDS: SODIUM BICARBONATE 8.4% 75 MEQ in SODIUM CHLORIDE 0.45 % 1,000 ML IV SCH (01:05)
[2019-06-30] MEDS: LORazepam 0.5 MG TAB PO PRN ×3 (01:05→10:35)
[2019-06-30] MEDS: HYDROmorphone PCA 30 MG/30 ML IV PRN (04:28)
[2019-06-30] MEDS: INSULIN ASPART 100 UNITS/ML 3 ML PEN SC SCH (07:50)
[2019-06-30] MEDS ORDERED: POLYETHYLENE (MIRALAX) 17 GM PACK PO SCH (09:00)
[2019-06-30 09:14] VITALS: TEMP 98.1
[2019-06-30] MEDS ORDERED: SODIUM CHLORIDE 0.65% NA SOLN 45 ML (OCEAN) ONE (10:31)
[2019-06-30] MEDS: PREGABALIN 25 MG CAP PO SCH (10:35)
[2019-06-30] MEDS: DOCUSATE SODIUM/SENNA 50/8.6MG TAB PO SCH (10:37)
[2019-06-30] MEDS: NICOTINE 21 MG/24 HR TDSY TD SCH (10:37)
[2019-06-30 10:42] VITALS: BP 99/64; PULSE 127; O2SAT 93
[2019-06-30] MEDS ORDERED: SALINE NASAL 225 SPRAYS, GENTAMICIN SULFATE 60 MG, BARCODE IDENTIFIER 0 EA PRN (10:46)
--- NOTE | 2019-06-30 11:47 | Discharge Summary ---
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 Patient has been following with Dr. Cruz as an outpatient. He was seen at [facility] in the beginning of the month for possible stem cell transplant. They are unable to get enough stem cells to proceed with this. Patient's renal function has been progressively worsening. Patient is having increased abdominal pain. Patient was scheduled for paracentesis on 06/23/2019 however only limited amount of ascites is present and a safe approach was not felt to be present so exam was aborted. There was noted to be extensive carcinomatosis causing the bulk of abdominal distention. Patient states while at [facility] they did a chemistry showed worsening kidney function. Patient had a chemistry performed today which showed creatinine was 4.59 from a baseline of 2.34 in May 21, 2019 Principal Diagnosis Metastatic testicular cancer (mixed germ cell) Chronic pain from cancer Acute on chronic kidney injury Type 1 diabetes Discharge Exam Constitutional + ill appearing, + cachectic and + edematous; no acute distress and no altered mental status Respiratory normal respiratory effort; no respiratory distress, no labored breathing, no retractions and does not use accessory muscles Cardiovascular Extremities: + edema (3+ b/l equal) Gastrointestinal (Abdomen) Inspection/Auscultation: + abdomen distended Percussion/Palpation: + abdomen tender (generalized) Psychiatric Orientation: alert and oriented x 3 Discharge Data Allergies Allergy/AdvReac Type Severity Reaction Status Date / Time No Known Allergies Allergy Verified 06/23/19 08:36 Consultations 06/25/19 18:57 Consult Nephrology Routine 06/26/19 14:27 Consult Palliative Care Routine Ordered Studies 06/25/19 18:57 US renal/blad retro comp Urgent Hospital Course (1) Goals of care, counseling/discussion: Stage IV metastatic testicular cancer. Goals of care discussions previously occurred with hospitalist, nephrology and palliative care team. Confirmed with patient wish is to focus on comfort care and plan to go home on hospice once dialudid PLACEMENT SECRETARY pump set up Continue Lorazepam 0.5mg PO/SL Q4h PRN anxiety/agitation. (2) Hx of testicular cancer: Stage 4 with extensive metastatic disease. Known mets to brain. Extensive abdominal carcinomatosis. (3) Acute on chronic renal failure: (4) Hyponatremia: (5) Attention deficit hyperactivity disorder: Continue Adderall (6) Diabetes mellitus type 1, uncontrolled: Basal Tresiba dose was decreased from 16 units to 4 units due to reduced food consumption. If this improves as outpatient it may need to be increased. Continue usual dose of Ademlog to cover for meals (7) Tobacco use: Continue nicoderm patch (8) Cancer related pain: Continue PLACEMENT SECRETARY Dilaudid along with fentanyl patch. Will be d/c home with hospice with same. (9) Metastatic cancer to brain: (10) Severe protein-calorie malnutrition: (11) Edema: (12) Constipation: opiate induced constipation Please see bowel regimen as prescribed. Reduced bowel movements while admitted while using Dilaudid PLACEMENT SECRETARY. Total Time Total Time Spent Total Time Spent (In Minutes): 35 Total Time Includes: Examination of the Patient, Discharge Planning, Medication Reconciliation and Communication With Other Providers Discharge Plan Discharge Items Patient Disposition: Hospice - Home Reason For Visit: ACUTE ON CHRONIC RENAL FAILURE,RELAPSING TESTICULA Discharge Diagnosis: Metastatic testicular cancer (mixed germ cell) Chronic pain from cancer Acute on chronic kidney injury Type 1 diabetes Activity: Resume your previous activity Non-emergency contact: Primary Care Provider Call non-emergency contact if: you have any medication questions and your symptoms worsen Follow-up/Referrals: Kade Kelsey III, MD [Primary Care Provider] - Diet: Regular Addtl Attending Provider Instructions: Admission for acute on chronic renal failure with chronic cancer pain. Limited improvement with IV fluids and requiring PLACEMENT SECRETARY for pain control. Goals of care discussed and decision made to go home with hospice. PLACEMENT SECRETARY pump to be set up prior to discharge. Constipation - Bowel regimen as prescribed. May need increasing as outpatient now on PLACEMENT SECRETARY. Type 1 diabetes - Basal Tresiba dose was decreased from 16 units to 4 units due to reduced food consumption. If this improves as outpatient it may need to be increased. Pending Studies at Discharge: No Stand-Alone Forms: My [facility] [employer] Medications and DC Order Prescriptions: New fentanyl 50 mcg/hr Patch 72 Hour 50 mcg transdermal Q3D@1100 30 Days Qty: 10 RF: 0 lorazepam 0.5 mg Tablet 0.5 mg PO Q4H PRN (Reason: anxiety) 10 Days Qty: 120 RF: 0 pregabalin [Lyrica] 25 mg Capsule 25 mg PO BID 30 Days Qty: 60 RF: 0 nicotine [Nicoderm CQ] 21 mg/24 hr Patch 24 Hour 21 mg transdermal QAM Qty: 1 RF: 0 hydromorphone (PF)-0.9 % NaCl 30 mg/30 mL (1 mg/mL) Pt Controlled Analgesia Syring 30 mg IV PRN PRN (Reason: pain) Qty: 100 RF: 0 polyethylene glycol 3350 [Miralax] 17 gram Powder In Packet 17 g PO DAILY PRN (Reason: constipation) Qty: 30 RF: 0 sennosides-docusate sodium [Senokot-S] 8.6-50 mg Tablet 1 tab PO QAM Qty: 30 RF: 0 docusate sodium 100 mg Capsule 100 mg PO BID PRN (Reason: constipation) Qty: 30 RF: 0 zolpidem [Ambien] 10 mg tablet 10 mg PO HS PRN (Reason: sleep) Qty: 30 RF: 0 Continued glucagon HCl 1 mg recon soln 1 mg .ROUTE .COMPLEX Qty: 2 RF: 0 ondansetron HCl [Zofran] 4 mg tablet 4 mg PO Q6H PRN (Reason: nausea and vomiting) Qty: 30 RF: 0 insulin lispro [Admelog SoloStar U-100 Insulin] 100 unit/mL insulin pen See Rx Instructions .ROUTE .COMPLEX RF: 0 Discontinued Lyrica 50 mg capsule 50 mg PO BID RF: 0 oxycodone 5 mg tablet 15 mg PO Q6H PRN (Reason: pain) RF: 0 Tresiba FlexTouch U-100 100 unit/mL (3 mL) insulin pen 16 units subcut QPM RF: 0 fentanyl 25 mcg/hr Patch 72 Hour 1 patch TRANSDERMAL Q72H RF: 0 zolpidem [Ambien] 10 mg Tablet 10 mg PO HS PRN (Reason: Sleep) RF: 0 No Action azithromycin 250 mg tablet See Rx Instructions PO .COMPLEX Qty: 6 RF: 0 Tresiba FlexTouch U-100 100 unit/mL (3 mL) insulin pen 6 units subcut QPM Qty: 0 RF: 0 Discharge Orders: Discharge Order (Routine); Ordered 06/30/19 Ordered By: Reji Telles Admission Data Admit Date/Time: 06/25/19 16:14 Attending Provider: Reji Telles Admit Provider: Reji Poole Primary Care Provider: Kade Kelsey III Other Providers: Elie Kaufman ; [place] ; [facility] Other Interventions: Discharge Summary Assessment (RN) Last Done: 06/30/19 12:14 DC Date/Time DO NOT enter until pt leaves facility: 06/30/19 13:08
[2019-06-30] MEDS ORDERED: SODIUM CHLORIDE 0.65% NA SOLN 45 ML (OCEAN) PRN (12:17)
[2019-06-30] MEDS ORDERED: INSULIN GLARGINE SOLOSTAR 100 UNITS/ML 3 ML PEN SQ SCH (21:00)
== END 2019-06-30 13:08 | disposition hospice, home (50) | DRG 682 ==
LOC: SUATTDRO 16:14 → 2E 16:14